=== PATIENT | female | born 2000 | race Caucasian/White ===

== ENCOUNTER 2019-08-27 10:02 | Emergency (ER) | payer OTHER ==
[~2019-08-27] VITALS: Ht 170.2 cm; Wt 74.0 kg
[~2019-08-27 10:02] MED LIST changes: -IOHEXOL 350 MG/ML 100 ML VIAL. IV ONE
--- NOTE | 2019-08-27 10:27 | PHYS DOC ---
Past Medical History Smoking Status: Never Smoker Adult General Chief Complaint Chief Complaint: ABDOMINAL PAIN HPI HPI Patient is a 19 year old female who was sent here from her family medical provider due to abnormal CT scan of her abdomen today. Patient had J-TUBE AND G-TUBE PLACED BY Dr. Mohr on 08/22/19 She has been using her J-TUBE but not able to use the G-TUBE due to pain with water injection and not able to place aspirate any gastric content from the G-TUBE. Patient has have generalized abdominal pain since the procedure. She went to see her PA today who ordered CT A of her abdomen which shown G-TUBE is external to the stomach with some small amount of free air in the intraperitoneum area. Patient denied any fever, no nausea or vomiting. Review of Systems Review of Systems Constitutional: Denies fever or chills [] Eyes: Denies change in visual acuity, redness, or eye pain [] HENT: Denies nasal congestion or sore throat [] Respiratory: Denies cough or shortness of breath [] Cardiovascular: No additional information not addressed in HPI [] GI: Positive for abdominal pain, No nausea, vomiting, bloody stools or diarrhea [] : Denies dysuria or hematuria [] Musculoskeletal: Denies back pain or joint pain [] Integument: Denies rash or skin lesions [] Neurologic: Denies headache, focal weakness or sensory changes [] Endocrine: Denies polyuria or polydipsia [] All other systems were reviewed and found to be within normal limits, except as documented in this note. Current Medications Current Medications Current Medications Medications (Trade) Dose Ordered Sig/Kel Start Time Stop Time Status Last Admin Dose Admin Fentanyl Citrate (Fentanyl 2ml Vial) 50 mcg 1X ONCE 08/27/19 12:30 08/27/19 12:31 DC 08/27/19 12:51 100 MCG Info (CONTRAST GIVEN -- Rx MONITORING) 1 each PRN DAILY PRN 08/27/19 12:30 08/29/19 12:29 Iohexol (Omnipaque 240 Mg/ml) 50 ml STK-MED ONCE 08/27/19 12:45 08/27/19 12:45 DC Morphine Sulfate (Morphine Sulfate) 4 mg 1X ONCE 08/27/19 11:45 08/27/19 11:46 DC 08/27/19 11:49 4 MG Ondansetron HCl (Zofran) 4 mg 1X ONCE 08/27/19 11:45 08/27/19 11:46 DC 08/27/19 11:49 4 MG Allergies Allergies Allergies Coded Allergies Type Severity Reaction Last Updated Verified Penicillins Allergy Intermediate Unknown 08/20/19 Yes Sulfa (Sulfonamide Antibiotics) Allergy Intermediate Unknown 08/20/19 Yes Physical Exam Physical Exam Constitutional: Well developed, well nourished, no acute distress, non-toxic appearance. [] HENT: Normocephalic, atraumatic, bilateral external ears normal, oropharynx moist, no oral exudates, nose normal. [] Eyes: PERRLA, EOMI, conjunctiva normal, no discharge. [] Neck: Normal range of motion, no tenderness, supple, no stridor. [] Cardiovascular:Heart rate regular rhythm, no murmur [] Lungs & Thorax: Bilateral breath sounds clear to auscultation [] Abdomen: Bowel sounds normal, soft, there tenderness to palpation around the G- TUBE AREA. G-tube and J-tube are in place, no masses, no pulsatile masses. [] Skin: Warm, dry, no erythema, no rash. [] Back: No tenderness, no CVA tenderness. [] Extremities: No tenderness, no cyanosis, no clubbing, ROM intact, no edema. [] Neurologic: Alert and oriented X 3, normal motor function, normal sensory function, no focal deficits noted. [] Psychologic: Affect normal, judgement normal, mood normal. [] Current Patient Data Vital Signs Vital Signs Date Time Temp Pulse Resp B/P (MAP) Pulse Ox O2 Delivery O2 Flow Rate FiO2 08/27/19 12:51 14 97 Room Air 08/27/19 10:10 97.9 120 111/54 (73) 97.9 Lab Values Laboratory Tests Test 08/27/19 10:07 08/27/19 11:00 Urine Collection Type Unknown Urine Color Rashmi Urine Clarity Clear Urine pH 7.0 (<5.0-8.0) Urine Specific [place] >=1.030 (1.000-1.030) Urine Protein 30 mg/dL (NEG-TRACE) Urine Glucose (UA) Negative mg/dL (NEG) Urine Ketones (Stick) Negative mg/dL (NEG) Urine Blood Moderate (NEG) Urine Nitrite Negative (NEG) Urine Bilirubin Negative (NEG) Urine Urobilinogen Dipstick >=8.0 mg/dL (0.2 mg/dL) Urine Leukocyte Esterase Negative (NEG) Urine RBC 6-10 /HPF (0-2) Urine WBC 0 /HPF (0-4) Urine Squamous Epithelial Cells Few /LPF Urine Bacteria 0 /HPF (0-FEW) White Blood Count 8.3 x10^3/uL (4.0-11.0) Red Blood Count 3.13 x10^6/uL (3.50-5.40) L Hemoglobin 10.2 g/dL (12.0-15.5) L Hematocrit 29.8 % (36.0-47.0) L Mean Corpuscular Volume 95 fL (79-100) Mean Corpuscular Hemoglobin 33 pg (25-35) Mean Corpuscular Hemoglobin Concent 34 g/dL (31-37) Red Cell Distribution Width 13.0 % (11.5-14.5) Platelet Count 158 x10^3/uL (140-400) Neutrophils (%) (Auto) 75 % (31-73) H Lymphocytes (%) (Auto) 12 % (24-48) L Monocytes (%) (Auto) 11 % (0-9) H Eosinophils (%) (Auto) 1 % (0-3) Basophils (%) (Auto) 0 % (0-3) Neutrophils # (Auto) 6.3 x10^3/uL (1.8-7.7) Lymphocytes # (Auto) 1.0 x10^3/uL (1.0-4.8) Monocytes # (Auto) 0.9 x10^3/uL (0.0-1.1) Eosinophils # (Auto) 0.1 x10^3/uL (0.0-0.7) Basophils # (Auto) 0.0 x10^3/uL (0.0-0.2) Sodium Level 140 mmol/L (136-145) Potassium Level 3.6 mmol/L (3.5-5.1) Chloride Level 104 mmol/L (98-107) Carbon Dioxide Level 26 mmol/L (21-32) Anion Gap 10 (6-14) Blood Urea Nitrogen 7 mg/dL (7-20) Creatinine 0.5 mg/dL (0.6-1.0) L Estimated GFR (Cockcroft-Gault) 155.7 BUN/Creatinine Ratio 14 (6-20) Glucose Level 92 mg/dL (70-99) Lactic Acid Level 0.7 mmol/L (0.4-2.0) Calcium Level 8.6 mg/dL (8.5-10.1) Total Bilirubin 0.5 mg/dL (0.2-1.0) Aspartate Amino Transferase (AST) 12 U/L (15-37) L Alanine Aminotransferase (ALT) 20 U/L (14-59) Alkaline Phosphatase 83 U/L (46-116) Total Protein 6.3 g/dL (6.4-8.2) L Albumin 2.7 g/dL (3.4-5.0) L Albumin/Globulin Ratio 0.8 (1.0-1.7) L Laboratory Tests 08/27/19 11:00 Laboratory Tests 08/27/19 11:00 EKG EKG [] Radiology/Procedures Radiology/Procedures [][facility] [address] [place], [place] [id number] IMAGING REPORT Signed PATIENT: SUNITHA SCHULTZ ACCOUNT: [id number] : 2000 LOCATION: CT AGE: 19 SEX: F EXAM STATUS: REG CLI ORD. PHYSICIAN: BRITTANY CURTIS REASON: ABDOMEN PAIN, NAUSEA, VOMITING, WEIGHT LOSS, MESENTERIC ISCHEMIA PROCEDURE: CT ANGIOGRAPHY ABDOMEN CT angiography abdomen with contrast PQRS statement: CT scans at this facility use dose reduction including either automated exposure control, iterative reconstructions, and /or weight based radiation dosing via mA and kV modification when appropriate to reduce radiation dose to as low as reasonably achievable. HISTORY: Abdominal pain, nausea and vomiting, mesenteric ischemia. TECHNIQUE: CT imaging of the abdomen with 3-D MIP and volume reconstructions of the arteries with 90 mL Omnipaque 350 intravenous contrast. FINDINGS: 3 mm lymph node or nodule minor fissure image 42 of doubtful significance given the patient's young age. There is mild upper abdominal pneumoperitoneum subjacent of diaphragms and overlying the stomach and transverse colon. No abdominal free fluid or abdominal fluid collection. There is upper anterior abdominal wall soft tissue edema and skin thickening. There is a percutaneous jejunostomy tube at the mid abdomen tip terminating right of midline surrounded by small bowel loops. There is a separate percutaneous gastrostomy tube the balloon tip of the catheter appears to terminate along the upper anterior wall of the gastric antrum and is external of the stomach, there is hypodense intramural edematous wall thickening of the gastric antrum no bowel obstruction. The distal aorta and abdominal arteries demonstrate no plaquing, irregularity, aneurysm, dissection, thrombus, stenosis or occlusion. Kidneys, adrenals, pancreas, spleen, liver unremarkable. Cholecystectomy. Lung bases and bones are unremarkable. IMPRESSION: 1. Percutaneous gastrostomy demonstrates termination of the balloon tip catheter along the upper anterior wall of the gastric antrum external of the gastric lumen concerning for malpositioning outside of the stomach. There is hypodense edematous intramural wall thickening of the gastric antrum which could be due to recent procedure or from gastritis. The pneumoperitoneum could be due to recent tube exchange or from active gastric leakage. No abdominal free fluid or fluid collection is evident. 2. Advanced jejunostomy tube. 3. Normal CT angiography abdomen. 4. After call report to the ordering PA, the patient was sent to the emergency department and these results were given to Dr. Benjamin by Dr. Osullivan at time of report signing. FOR INTERNAL CODING PURPOSES Critical result: Findings discussed with Chevy CURTIS at 08/27/2019 9:47 AM. RESULT CODE: (C) Electronically signed by: Ion Osullivan MD (08/27/2019 9:53 AM) [id number] DICTATED and SIGNED BY: ION OSULLIVAN MD DATE: 08/27/19 0953 Course & Med Decision Making Course & Med Decision Making Pertinent Labs and Imaging studies reviewed. (See chart for details) Consulted with Dr. Santana, general surgeon, who came to the ER to evaluate patient. He asked if Interventional Radiologist can evaluate the G-TUBE and replace it. Discussed with Dr. Cartwright who agreed to see patient today. Dr. Cartwright replaced the feeding tube. Dr. Santana said patient can be discharged home, resume tube feeding, follow up with him as needed. Dragon Disclaimer Dragon Disclaimer This electronic medical record was generated, in whole or in part, using a voice recognition dictation system. Departure Departure Impression: Primary Impression: Complaint associated with gastric tube Additional Impressions: Feeding tube dysfunction Encounter for feeding tube placement Abdominal pain Condition: IMPROVED Referrals: RENEA FUNG NP (PCP) TORIE SANTANA MD please follow up with Dr. Santana as needed. You can resume your feeding tube usage. Patient Instructions: Abdominal Pain, Gastric Tube Replacement Additional Instructions: Thank you for visiting our Emergency Department. We appreciate you trusting us with your care. If any additional problems come up don't hesitate to return to visit us. Please follow up with your primary care provider so they can plan additional care if needed and know about the problem that you had. If symptoms worsen come back to the Emergency Department. Any concerning symptoms that start such as chest pain, shortness of air, weakness or numbness on one side of the body, running high fevers or any other concerning symptoms return to the ER. Problem Qualifiers LUIS BENJAMIN DO Aug 27, 2019 10:27
[2019-08-27 11:15] LABS: BILIRUBIN,URINE NEGATIVE (NEG); CLARITY,URINE CLEAR; COLOR,URINE AMBER; NITRITE,URINE NEGATIVE (NEG); PROTEIN,URINE 30 mg/dL (NEG-TRACE); UROBILINOGEN,URINE >=8.0 mg/dL (0.2 mg/dL)
[2019-08-27 11:28] LABS: BACTERIA,URINE 0 /HPF (0-FEW); SQUAMOUS EPITHELIAL CELL,UR FEW /LPF; WBC,URINE 0 /HPF (0-4)
[2019-08-27 11:33] LABS: BASO % 0 % (0-3); EOS # 0.1 x10^3/uL (0.0-0.7); EOS % 1 % (0-3); HEMATOCRIT 29.8 % (36.0-47.0); HEMOGLOBIN 10.2 g/dL (12.0-15.5); LYMPH % 12 % (24-48); MEAN CORPUSCULAR HEMOGLOBIN 33 pg (25-35); MEAN CORPUSCULAR HGB CONC 34 g/dL (31-37); MEAN CORPUSCULAR VOLUME 95 fL (79-100); MONO # 0.9 x10^3/uL (0.0-1.1); MONO % 11 % (0-9); NEUT # 6.3 x10^3/uL (1.8-7.7); NEUT % 75 % (31-73); PLATELET COUNT 158 x10^3/uL (140-400); RED BLOOD COUNT 3.13 x10^6/uL (3.50-5.40); WHITE BLOOD COUNT 8.3 x10^3/uL (4.0-11.0)
[2019-08-27 11:34] LABS: CALCIUM 8.6 mg/dL (8.5-10.1); CREATININE 0.5 mg/dL (0.6-1.0); GFR 155.7; POTASSIUM 3.6 mmol/L (3.5-5.1)
[2019-08-27] MEDS ORDERED: MORPHINE SULFATE 4 MG/ML VIAL. IV ONE (11:45)
[2019-08-27] MEDS ORDERED: ONDANSETRON PF 4 MG/2 ML VIAL. IVP ONE (11:45)
[2019-08-27 11:47] LABS: ALBUMIN 2.7 g/dL (3.4-5.0); ALBUMIN/GLOBULIN RATIO 0.8 (1.0-1.7); TOTAL BILIRUBIN 0.5 mg/dL (0.2-1.0); TOTAL PROTEIN 6.3 g/dL (6.4-8.2)
[2019-08-27] MEDS ORDERED: fentaNYL PF VIAL 100 MCG/2 ML VIAL ONE (12:06)
[2019-08-27] MEDS ORDERED: IOHEXOL 240 MG/ML 50ML VIAL. ONE ×2 (12:08→12:45)
[2019-08-27] MEDS ORDERED: CONTRAST GIVEN. MC PRN (12:30)
[2019-08-27] MEDS ORDERED: fentaNYL PF VIAL 100 MCG/2 ML VIAL IVP ONE (12:30)
[2019-08-27] MEDS ORDERED: IOHEXOL 240 MG/ML 50ML VIAL. PO ONE (12:30)
[2019-08-27 13:32] VITALS: BP 98/54
--- NOTE | 2019-08-27 13:48 | PDOC2 ---
CONSULT Date of Consult Date of Consult DATE: 08/27/19 TIME: 13:44 Reason for Consult Reason for Consult: drainage from G -tube Referring Physician Referring Physician: Dr. Miramontes Identification/Chief Complaint Chief Complaint gtube pain and drainage Source Source: Chart review, Patient History of Present Illness Reason for Visit: 19 yo F s/p recent J-tube placement (working well for tube feeds) and conversion of GJ tube to G-tube. Pt with c/o pain at G-tube site and drainage around, with no drainage through tube. Past Medical History GI: Other (severe malnutrition and rumination sydrome.) Past Surgical History Past Surgical History: Other (J tube and Gtube placement ) Family History Family History: No Significant Social History No ALCOHOL: none Current Problem List Problem List Problems Medical Problems: (1) Abdominal pain Status: Acute (2) Complaint associated with gastric tube Status: Acute (3) Encounter for feeding tube placement Status: Acute (4) Feeding tube dysfunction Status: Acute Current Medications Current Medications Current Medications Morphine Sulfate (Morphine Sulfate) 4 mg 1X ONCE IV Last administered on 08/27/19at 11:49; Start 08/27/19 at 11:45; Stop 08/27/19 at 11:46; Status DC Ondansetron HCl (Zofran) 4 mg 1X ONCE IVP Last administered on 08/27/19at 11:49; Start 08/27/19 at 11:45; Stop 08/27/19 at 11:46; Status DC Fentanyl Citrate (Fentanyl 2ml Vial) 100 mcg STK-MED ONCE .ROUTE ; Start 08/27/19 at 12:06; Stop 08/27/19 at 12:06; Status DC Iohexol (Omnipaque 240 Mg/ml) 50 ml STK-MED ONCE .ROUTE ; Start 08/27/19 at 12:08; Stop 08/27/19 at 12:08; Status DC Fentanyl Citrate (Fentanyl 2ml Vial) 50 mcg 1X ONCE IVP Last administered on 08/27/19at 12:51; Start 08/27/19 at 12:30; Stop 08/27/19 at 12:31; Status DC Iohexol (Omnipaque 240 Mg/ml) 50 ml 1X ONCE PO Last administered on 08/27/19at 12:50; Start 08/27/19 at 12:30; Stop 08/27/19 at 12:31; Status DC Info (CONTRAST GIVEN -- Rx MONITORING) 1 each PRN DAILY PRN MC SEE COMMENTS; Start 08/27/19 at 12:30; Stop 08/29/19 at 12:29 Iohexol (Omnipaque 240 Mg/ml) 50 ml STK-MED ONCE .ROUTE ; Start 08/27/19 at 12:45; Stop 08/27/19 at 12:45; Status DC Active Scripts Active Hydrocodone-Apap 7.5-325/15 Soln (Hydrocodone Bit/Acetaminophen) 15 Ml Solution 15 Ml JT PRN Q6HRS PRN Reported Reglan (Metoclopramide Hcl) 10 Mg Tablet 10 Mg PO QIDACHS Zelnorm (Tegaserod Hydrogen Maleate) 6 Mg Tablet 6 Mg GT BID Amitriptyline Hcl 75 Mg Tablet 75 Mg PO QHS Dicyclomine Hcl 20 Mg Tablet 20 Mg GT PRN QID PRN Stool Softener (Docusate Sodium) 50 Mg Capsule 50 Mg PO PRN HS Advair 100-50 Diskus (Fluticasone/Salmeterol) 1 Each Disk.w.dev 2 Inh IH BID Olopatadine HCl 5 Ml Drops 0.1 % OP PRN DAILY PRN Promethazine Hcl 12.5 Mg Tablet 25 Mg GT Q6H PRN Trazodone Hcl 50 Mg Tablet 50 Mg GT HS Maxalt (Rizatriptan Benzoate) 10 Mg Tablet 10 Mg GT PRN DAILY PRN Valproic Acid (Valproate Sodium) 250 Mg/5 Ml Solution 15 Ml PO BID Coq-10 (Ubidecarenone) 100 Mg Capsule 200 Mg GT DAILY Buspirone Hcl 5 Mg Tablet 5 Mg GT DAILY Vitamin D3 (Cholecalciferol (Vitamin D3)) 4,000 Unit Capsule 2,000 Unit PO HS Xyzal (Levocetirizine Dihydrochloride) 5 Mg Tablet 5 Mg GT HS Proair Hfa (Albuterol Sulfate) 8.5 Gm Hfa.aer.ad 2 Puff IH PRN Q4-6HRS PRN 21 Days Ipratropium [place] 30 Ml [place] 1 [place] NS DAILY Duoneb 0.5-3(2.5) Mg/3 Ml (Albuterol/Ipratropium) 3 Ml Ampul.neb 3 Ml NEB PRN QID PRN Protonix (Pantoprazole Sodium) 20 Mg Tablet. 40 Mg GT HS Montelukast Sodium Tablet (Montelukast Sodium) 10 Mg Tablet 10 Mg GT DAILY PRN Magnesium Oxide 250 Mg Tablet 1 Tab PO DAILY 30 Days Multi Vitamin Daily (Multivitamin) 1 Each Tablet 1 Each GT DAILY Metoprolol Tartrate 50 Mg Tablet 50 Mg GT BID Allergies Allergies: Coded Allergies: Penicillins (Verified Allergy, Intermediate, Unknown, 08/20/19) Sulfa (Sulfonamide Antibiotics) (Verified Allergy, Intermediate, Unknown, 08/20/19) ROS Gastrointestinal: Yes Nausea, Yes Abdominal Pain Physical Exam General: Alert, Oriented X3, Cooperative, No acute distress HEENT: Atraumatic Abdomen: Soft, Other (TTP around G-tube with bumper eroding skin, J-tube in place and functional) Psych/Mental Status: Mental status NL, Mood NL Vitals VITALS Vital Signs Date Time Temp Pulse Resp B/P (MAP) Pulse Ox O2 Delivery O2 Flow Rate FiO2 08/27/19 13:02 98.3 102 16 101/55 (70) 97 Room Air 98.3 Labs Labs Laboratory Tests Test 08/27/19 10:07 08/27/19 11:00 Urine Collection Type Unknown Urine Color Rashmi Urine Clarity Clear Urine pH 7.0 (<5.0-8.0) Urine Specific [place] >=1.030 (1.000-1.030) Urine Protein 30 mg/dL (NEG-TRACE) Urine Glucose (UA) Negative mg/dL (NEG) Urine Ketones (Stick) Negative mg/dL (NEG) Urine Blood Moderate (NEG) Urine Nitrite Negative (NEG) Urine Bilirubin Negative (NEG) Urine Urobilinogen Dipstick >=8.0 mg/dL (0.2 mg/dL) Urine Leukocyte Esterase Negative (NEG) Urine RBC 6-10 /HPF (0-2) Urine WBC 0 /HPF (0-4) Urine Squamous Epithelial Cells Few /LPF Urine Bacteria 0 /HPF (0-FEW) White Blood Count 8.3 x10^3/uL (4.0-11.0) Red Blood Count 3.13 x10^6/uL (3.50-5.40) Hemoglobin 10.2 g/dL (12.0-15.5) Hematocrit 29.8 % (36.0-47.0) Mean Corpuscular Volume 95 fL (79-100) Mean Corpuscular Hemoglobin 33 pg (25-35) Mean Corpuscular Hemoglobin Concent 34 g/dL (31-37) Red Cell Distribution Width 13.0 % (11.5-14.5) Platelet Count 158 x10^3/uL (140-400) Neutrophils (%) (Auto) 75 % (31-73) Lymphocytes (%) (Auto) 12 % (24-48) Monocytes (%) (Auto) 11 % (0-9) Eosinophils (%) (Auto) 1 % (0-3) Basophils (%) (Auto) 0 % (0-3) Neutrophils # (Auto) 6.3 x10^3/uL (1.8-7.7) Lymphocytes # (Auto) 1.0 x10^3/uL (1.0-4.8) Monocytes # (Auto) 0.9 x10^3/uL (0.0-1.1) Eosinophils # (Auto) 0.1 x10^3/uL (0.0-0.7) Basophils # (Auto) 0.0 x10^3/uL (0.0-0.2) Sodium Level 140 mmol/L (136-145) Potassium Level 3.6 mmol/L (3.5-5.1) Chloride Level 104 mmol/L (98-107) Carbon Dioxide Level 26 mmol/L (21-32) Anion Gap 10 (6-14) Blood Urea Nitrogen 7 mg/dL (7-20) Creatinine 0.5 mg/dL (0.6-1.0) Estimated GFR (Cockcroft-Gault) 155.7 BUN/Creatinine Ratio 14 (6-20) Glucose Level 92 mg/dL (70-99) Lactic Acid Level 0.7 mmol/L (0.4-2.0) Calcium Level 8.6 mg/dL (8.5-10.1) Total Bilirubin 0.5 mg/dL (0.2-1.0) Aspartate Amino Transf (AST/SGOT) 12 U/L (15-37) Alanine Aminotransferase (ALT/SGPT) 20 U/L (14-59) Alkaline Phosphatase 83 U/L (46-116) Total Protein 6.3 g/dL (6.4-8.2) Albumin 2.7 g/dL (3.4-5.0) Albumin/Globulin Ratio 0.8 (1.0-1.7) Laboratory Tests Test 08/27/19 10:07 08/27/19 11:00 Urine Collection Type Unknown Urine Color Rashmi Urine Clarity Clear Urine pH 7.0 (<5.0-8.0) Urine Specific [place] >=1.030 (1.000-1.030) Urine Protein 30 mg/dL (NEG-TRACE) Urine Glucose (UA) Negative mg/dL (NEG) Urine Ketones (Stick) Negative mg/dL (NEG) Urine Blood Moderate (NEG) Urine Nitrite Negative (NEG) Urine Bilirubin Negative (NEG) Urine Urobilinogen Dipstick >=8.0 mg/dL (0.2 mg/dL) Urine Leukocyte Esterase Negative (NEG) Urine RBC 6-10 /HPF (0-2) Urine WBC 0 /HPF (0-4) Urine Squamous Epithelial Cells Few /LPF Urine Bacteria 0 /HPF (0-FEW) White Blood Count 8.3 x10^3/uL (4.0-11.0) Red Blood Count 3.13 x10^6/uL (3.50-5.40) Hemoglobin 10.2 g/dL (12.0-15.5) Hematocrit 29.8 % (36.0-47.0) Mean Corpuscular Volume 95 fL (79-100) Mean Corpuscular Hemoglobin 33 pg (25-35) Mean Corpuscular Hemoglobin Concent 34 g/dL (31-37) Red Cell Distribution Width 13.0 % (11.5-14.5) Platelet Count 158 x10^3/uL (140-400) Neutrophils (%) (Auto) 75 % (31-73) Lymphocytes (%) (Auto) 12 % (24-48) Monocytes (%) (Auto) 11 % (0-9) Eosinophils (%) (Auto) 1 % (0-3) Basophils (%) (Auto) 0 % (0-3) Neutrophils # (Auto) 6.3 x10^3/uL (1.8-7.7) Lymphocytes # (Auto) 1.0 x10^3/uL (1.0-4.8) Monocytes # (Auto) 0.9 x10^3/uL (0.0-1.1) Eosinophils # (Auto) 0.1 x10^3/uL (0.0-0.7) Basophils # (Auto) 0.0 x10^3/uL (0.0-0.2) Sodium Level 140 mmol/L (136-145) Potassium Level 3.6 mmol/L (3.5-5.1) Chloride Level 104 mmol/L (98-107) Carbon Dioxide Level 26 mmol/L (21-32) Anion Gap 10 (6-14) Blood Urea Nitrogen 7 mg/dL (7-20) Creatinine 0.5 mg/dL (0.6-1.0) Estimated GFR (Cockcroft-Gault) 155.7 BUN/Creatinine Ratio 14 (6-20) Glucose Level 92 mg/dL (70-99) Lactic Acid Level 0.7 mmol/L (0.4-2.0) Calcium Level 8.6 mg/dL (8.5-10.1) Total Bilirubin 0.5 mg/dL (0.2-1.0) Aspartate Amino Transf (AST/SGOT) 12 U/L (15-37) Alanine Aminotransferase (ALT/SGPT) 20 U/L (14-59) Alkaline Phosphatase 83 U/L (46-116) Total Protein 6.3 g/dL (6.4-8.2) Albumin 2.7 g/dL (3.4-5.0) Albumin/Globulin Ratio 0.8 (1.0-1.7) Images Images CT with G-tube out of stomach, IR successfully replaced G-tube. Assessment/Plan Assessment/Plan Dislodged G-tube successfully replaced. OK to d/c home and F/u PRN resume tube feeds via J-tube Thanks for consult! TORIE MILLER MD Aug 27, 2019 13:48
--- NOTE | 2019-08-28 10:23 | RAD ---
08/28/2019 8:17 AM Procedure: Replacement of percutaneous gastrostomy jejunostomy tube through pre-existing tract Clinical Indication: Possible Malpositioned Gtube. Discussion: The procedure was explained in its entirety to the patient or the patients designated sales representative public [employer] by a member of the treatment team, including a discussion of the risks, benefits and commonly accepted alternatives to the procedure, as well as the expected consequences of no therapy whatsoever. Discussion of the risks included, but was not limited to, those that are most frequent and those that are rare but possibly severe or life-threatening, as well as the possibility of unforeseen complications. All elements of maximal sterile barrier technique including the use of a cap, mask, sterile gown, sterile gloves, large sterile sheet, appropriate hand hygiene, and 2% chlorhexidine for cutaneous antisepsis (or acceptable alternative antiseptic per current guidelines) were followed for this procedure. Fluoroscopic evaluation demonstrates the catheter be centered over the abdominal midline. Contrast was administered through the catheter filling a space, occupied by the pre-existing gastrostomy tube balloon. This appears to be anterior and external to the stomach. The balloon was deflated. The cavity made by the balloon was filled with contrast though no contrast extended into the stomach. Gentle probing with a wire was performed, with a wire ultimately entering the gastric lumen. The catheter was advanced into the gastric lumen and contrast administered confirming intragastric location. Following dilatation a 24 [place] peel-away sheath was advanced into the stomach through which a new 20 [place] gastrostomy tube was placed. Its position was confirmed with contrast. The patient tolerated the procedure well without immediate complication. Total fluoroscopy time 8.8 minutes Dose area product: 62 Gycm2 Impression: Fluoroscopically guided placement of percutaneous gastrostomy tube through pre-existing tract
[2019-08-29] MEDS ORDERED: BUSP10TA PO (22:54)
[2019-08-29] MEDS ORDERED: FLUT12HF3 IH (22:54)
== END 2019-08-27 13:40 | disposition home or self-care (01) ==
LOC: ER 10:02
DX: K94.23 Gastrostomy malfunction (principal); Z88.0 Allergy status to penicillin; Z88.2 Allergy status to sulfonamides; Y83.8 Other surgical procedures as the cause of abnormal reaction of the patient, or of later complication, without mention of misadventure at the time of the procedure; Y92.89 Other specified places as the place of occurrence of the external cause
CPT/HCPCS: 36415; 49450; 80053; 81001; 83605; 85025; 96374; 96375; 99285; B4087; C1769; J2270; J2405; J3010; Q9966

== ENCOUNTER → 2019-08-27 | Outpatient (CLI) | payer OTHER ==
[2019-08-24 15:00] VITALS: BP 100/56
[~2019-08-27] MED LIST: ALBU2.5V8 IH; AMIT75TA PO; BUSP5TAB GT; CHOL40003 PO; DICY20TA3 GT; DOCU50CA9 PO; FLUT1DIS IH; HYDR15SO6 JT; IOHEXOL 350 MG/ML 100 ML VIAL. IV ONE; IPRA30SP NS; IPRA3AMP29 NEB; LEVO5TAB29 GT; MAGN250T9 PO; METO10TA81 PO; METO50TA6 GT; MONT10TA49 GT; MULT-245 GT; OLOP5DRO13 OP; PANT20TA2 GT; PROM12.58 GT; RIZA10TA GT; TEGA6TAB GT; TRAZ-118 GT; UBID100C26 GT; VALP250S3 PO
--- NOTE | 2019-08-27 09:56 | RAD ---
CT angiography abdomen with contrast PQRS statement: CT scans at this facility use dose reduction including either automated exposure control, iterative reconstructions, and /or weight based radiation dosing via mA and kV modification when appropriate to reduce radiation dose to as low as reasonably achievable. HISTORY: Abdominal pain, nausea and vomiting, mesenteric ischemia. TECHNIQUE: CT imaging of the abdomen with 3-D MIP and volume reconstructions of the arteries with 90 mL Omnipaque 350 intravenous contrast. FINDINGS: 3 mm lymph node or nodule minor fissure image 42 of doubtful significance given the patient's young age. There is mild upper abdominal pneumoperitoneum subjacent of diaphragms and overlying the stomach and transverse colon. No abdominal free fluid or abdominal fluid collection. There is upper anterior abdominal wall soft tissue edema and skin thickening. There is a percutaneous jejunostomy tube at the mid abdomen tip terminating right of midline surrounded by small bowel loops. There is a separate percutaneous gastrostomy tube the balloon tip of the catheter appears to terminate along the upper anterior wall of the gastric antrum and is external of the stomach, there is hypodense intramural edematous wall thickening of the gastric antrum no bowel obstruction. The distal aorta and abdominal arteries demonstrate no plaquing, irregularity, aneurysm, dissection, thrombus, stenosis or occlusion. Kidneys, adrenals, pancreas, spleen, liver unremarkable. Cholecystectomy. Lung bases and bones are unremarkable. IMPRESSION: 1. Percutaneous gastrostomy demonstrates termination of the balloon tip catheter along the upper anterior wall of the gastric antrum external of the gastric lumen concerning for malpositioning outside of the stomach. There is hypodense edematous intramural wall thickening of the gastric antrum which could be due to recent procedure or from gastritis. The pneumoperitoneum could be due to recent tube exchange or from active gastric leakage. No abdominal free fluid or fluid collection is evident. 2. Advanced jejunostomy tube. 3. Normal CT angiography abdomen. 4. After call report to the ordering PA, the patient was sent to the emergency department and these results were given to Dr. Miramontes by Dr. Osullivan at time of report signing. FOR INTERNAL CODING PURPOSES Critical result: Findings discussed with Chevy CURTIS at 08/27/2019 9:47 AM. RESULT CODE: (C) Electronically signed by: Michael Osullivan MD (08/27/2019 9:53 AM) [id number]
--- NOTE | 2019-08-27 14:04 | RAD ---
Gastric Emptying Study Indication: Possible gastroparesis. Procedure: Anterior and posterior projection static images are obtained over the stomach following oral administration of 2 mCi of 99 M technetium sulfur colloid in a solid meal (egg and toast). Time points include an immediate baseline, and 1, 2, 3, and 4 hours post ingestion. Findings: There is progressive emptying of the stomach on sequential images. Percentage retention at... One hour is 97 % (normal 34.8-91%). Two hours 85 % (normal 2.7-60%). Three hours 85% (normal 0.5-28%). Four hours 62% (normal 0-10%). Impression: Very severe grade 4 , delayed gastric emptying. Findings would be supportive of the diagnosis of gastroparesis in the appropriate clinical setting. Consensus Recommendations for Gastric Emptying Scintigraphy: A Joint Report of the [place] [employer] and the Society of Nuclear Medicine: J. Nucl. Med. Technol. July 2007 vol. 36 no. 1 44-54 Grading for severity of delayed GE based on the 4-h value: grade 1 (mild): 11?20% retention at 4 h grade 2 (moderate): 21?35% retention at 4 h grade 3 (severe): 36?50% retention at 4 h grade 4 (very severe): >50% retention at 4 h. Electronically signed by: Flo Cartwright MD (08/27/2019 2:01 PM) [id number]
== END ==
LOC: NM 07:46
PROVIDERS: ATTEND Internal Medicine Gastroenterology
DX: K55.059 Acute (reversible) ischemia of intestine, part and extent unspecified (principal); R10.9 Unspecified abdominal pain; R11.2 Nausea with vomiting, unspecified; R63.4 Abnormal weight loss; I77.4 Celiac artery compression syndrome; R60.9 Edema, unspecified
CPT/HCPCS: 74175; 78264; A9541

== ENCOUNTER 2019-11-19 12:40 | Emergency (ER) | payer OTHER ==
[~2019-11-19] VITALS: Ht 170.2 cm; Wt 73.0 kg
[~2019-11-19 12:40] MED LIST changes: +BUSP10TA PO; +CEPH-264 PO; +FLUT12HF3 IH; +POLY17PO29 PO; +RING10003 IV; +[UNRECOGNIZED DRUG - CODE] IV
[2019-11-19] MEDS ORDERED: ONDANSETRON PF 4 MG/2 ML VIAL. IVP ONE (13:15)
[2019-11-19] MEDS ORDERED: MORPHINE SULFATE 4 MG/ML VIAL. IV ONE (13:15)
[2019-11-19] MEDS ORDERED: IV NORMAL SALINE 1000ML BAG 1,000 ML IV ONE (13:15)
[2019-11-19 13:28] LABS: BILIRUBIN,URINE NEGATIVE (NEG); CLARITY,URINE CLEAR; COLOR,URINE YELLOW; NITRITE,URINE NEGATIVE (NEG); PROTEIN,URINE NEGATIVE (NEG-TRACE); UROBILINOGEN,URINE 0.2 mg/dL (0.2 mg/dL)
[2019-11-19 13:33] LABS: BACTERIA,URINE FEW /HPF (0-FEW); RBC,URINE 0 /HPF (0-2); SQUAMOUS EPITHELIAL CELL,UR MOD /LPF; WBC,URINE OCC /HPF (0-4)
[2019-11-19 13:56] LABS: BASO % 0 % (0-3); EOS % 1 % (0-3); HEMATOCRIT 33.9 % (36.0-47.0); HEMOGLOBIN 11.7 g/dL (12.0-15.5); LYMPH # 1.3 x10^3/uL (1.0-4.8); LYMPH % 29 % (24-48); MEAN CORPUSCULAR HEMOGLOBIN 33 pg (25-35); MEAN CORPUSCULAR HGB CONC 35 g/dL (31-37); MEAN CORPUSCULAR VOLUME 94 fL (79-100); MONO # 0.2 x10^3/uL (0.0-1.1); MONO % 5 % (0-9); NEUT # 2.9 x10^3/uL (1.8-7.7); NEUT % 64 % (31-73); PLATELET COUNT 148 x10^3/uL (140-400); RED BLOOD COUNT 3.61 x10^6/uL (3.50-5.40); RED CELL DISTRIBUTION WIDTH 13.2 % (11.5-14.5); WHITE BLOOD COUNT 4.5 x10^3/uL (4.0-11.0)
[2019-11-19 14:22] LABS: CALCIUM 8.6 mg/dL (8.5-10.1); CREATININE 0.7 mg/dL (0.6-1.0); GFR 105.6; POTASSIUM 4.2 mmol/L (3.5-5.1)
[2019-11-19 14:28] LABS: ALBUMIN 3.4 g/dL (3.4-5.0); ALBUMIN/GLOBULIN RATIO 1.1 (1.0-1.7); TOTAL BILIRUBIN 0.1 mg/dL (0.2-1.0); TOTAL PROTEIN 6.6 g/dL (6.4-8.2)
[2019-11-19] MEDS ORDERED: CONTRAST GIVEN. MC PRN (14:30)
[2019-11-19] MEDS ORDERED: IOHEXOL 300 MG/ML 100ML VIAL. IV ONE (14:30)
[2019-11-19 14:42] VITALS: BP 103/56
--- NOTE | 2019-11-19 15:02 | RAD ---
CT scan of the abdomen and pelvis with contrast 11/19/2019 CLINICAL HISTORY: G-tube infection. TECHNIQUE: After the intravenous administration of 75 cc of Omnipaque 300, contiguous, 5 mm axial sections were obtained through the abdomen and pelvis. One or more of the following individualized dose reduction techniques were utilized for this study: 1. Automated exposure control. 2. Adjustment of the mA and/or kV according to patient size. 3. Use of iterative reconstruction technique. FINDINGS: Comparison study is dated 08/27/2019. Images through the lung bases demonstrate minimal dependent subsegmental atelectasis bilaterally. The liver, spleen, pancreas, adrenal glands and kidneys are within normal limits. The abdominal aorta tapers normally. Surgical clips are seen within the gallbladder fossa consistent with a cholecystectomy. A gastrostomy tube is seen within the body of the stomach. No abnormal fluid collection is seen surrounding the tube to suggest evidence of an abscess. The free air seen on the previous examination has resolved. No free fluid is noted. Air and stool are seen throughout the colon. A jejunostomy tube is again noted extending across the midline from the left mid abdomen. No abnormal fluid collection is seen to suggest evidence of an abscess. There is no evidence of bowel obstruction. Images through the pelvis to the urinary bladder distended with urine. A moderate amount of stool is seen involving the rectum and sigmoid colon. No adnexal mass is seen. No free fluid is seen. Very mild S-shaped curvature of the thoracolumbar spine is noted. IMPRESSION: No acute abnormality is seen. Electronically signed by: Neeraj Baca MD (11/19/2019 2:59 PM) [id number]
--- NOTE | 2019-11-19 15:41 | PHYS DOC ---
Past Medical History Past Medical History: GERD, Hypertension, Other Additional Past Medical Histor: chronic ABD pain and N/V, GASTROPARESIS Past Surgical History: Cholecystectomy, Tonsillectomy, Other Additional Past Surgical Histo: G-tube x20; J-tube Smoking Status: Never Smoker Alcohol Use: None General Adult EDM: Chief Complaint: GTUBE REPLACEMENT/MALFUNCTION HPI: HPI: Patient is a 19 year old female presenting to the ED with a chief complaint of abdominal pain and nausea. Patient does have a G-tube and a J-tube due to gastroparesis and states that she thinks the G-tube insertion site might be infected. Patient states that she has continuous nausea and usual medications do not work. Patient denies fever, chills, chest pain, shortness of breath. Review of Systems: Review of Systems: Constitutional: Denies fever or chills. [] Eyes: Denies change in visual acuity. [] HENT: Denies nasal congestion or sore throat. [] Respiratory: Denies cough or shortness of breath. [] Cardiovascular: Denies chest pain or edema. [] GI: Complains of abdominal pain and nausea [] : Denies dysuria. [] Neurologic: Denies headache, focal weakness or sensory changes. [] Heart Score: Risk Factors: Risk Factors: DM, Current or recent (<one month) smoker, HTN, HLP, family history of CAD, obesity. Risk Scores: Score 0 - 3: 2.5% MACE over next 6 weeks - Discharge Home Score 4 - 6: 20.3% MACE over next 6 weeks - Admit for Clinical Observation Score 7 - 10: 72.7% MACE over next 6 weeks - Early Invasive Strategies Current Medications: Current Medications Medications (Trade) Dose Ordered Sig/[facility] Start Time Stop Time Status Last Admin Dose Admin Info (CONTRAST GIVEN -- Rx MONITORING) 1 each PRN DAILY PRN 11/19/19 14:30 11/21/19 14:29 Iohexol (Omnipaque 300 Mg/ml) 75 ml 1X ONCE 11/19/19 14:30 11/19/19 14:31 DC 11/19/19 14:36 75 ML Morphine Sulfate (Morphine Sulfate) 4 mg 1X ONCE 11/19/19 13:15 11/19/19 13:16 DC 11/19/19 13:47 4 MG Ondansetron HCl (Zofran) 4 mg 1X ONCE 11/19/19 13:15 11/19/19 13:16 DC 11/19/19 13:47 4 MG Sodium Chloride 1,000 ml @ 1,000 mls/hr 1X ONCE 11/19/19 13:15 11/19/19 14:14 DC 11/19/19 13:46 1,000 MLS/HR Allergies: Allergies: Allergies Coded Allergies Type Severity Reaction Last Updated Verified Penicillins Allergy Intermediate LIGHT RASH CHILD 08/30/19 Yes Sulfa (Sulfonamide Antibiotics) Allergy Intermediate 08/29/19 Yes Physical Exam: PE: Constitutional: Well developed, well nourished, no acute distress, non-toxic appearance. [] HENT: Normocephalic, atraumatic Eyes: EOMI Neck: Normal range of motion, Supple Cardiovascular:Heart rate regular rhythm Lungs & Thorax: Bilateral breath sounds clear to auscultation [] Abdomen: Bowel sounds normal, soft, no tenderness. G-tube and J-tube present Extremities: No tenderness, ROM intact Neurologic: Alert and oriented X 3 Current Patient Data: Labs: Laboratory Tests Test 11/19/19 13:15 11/19/19 13:24 11/19/19 13:43 Urine Collection Type Void Urine Color Yellow Urine Clarity Clear Urine pH 8.0 (<5.0-8.0) Urine Specific [place] 1.010 (1.000-1.030) Urine Protein Negative mg/dL (NEG-TRACE) Urine Glucose (UA) Negative mg/dL (NEG) Urine Ketones (Stick) Negative mg/dL (NEG) Urine Blood Negative (NEG) Urine Nitrite Negative (NEG) Urine Bilirubin Negative (NEG) Urine Urobilinogen Dipstick 0.2 mg/dL (0.2 mg/dL) Urine Leukocyte Esterase Negative (NEG) Urine RBC 0 /HPF (0-2) Urine WBC Occ /HPF (0-4) Urine Squamous Epithelial Cells Mod /LPF Urine Bacteria Few /HPF (0-FEW) POC Urine HCG, Qualitative Hcg negative (Negative) White Blood Count 4.5 x10^3/uL (4.0-11.0) Red Blood Count 3.61 x10^6/uL (3.50-5.40) Hemoglobin 11.7 g/dL (12.0-15.5) L Hematocrit 33.9 % (36.0-47.0) L Mean Corpuscular Volume 94 fL (79-100) Mean Corpuscular Hemoglobin 33 pg (25-35) Mean Corpuscular Hemoglobin Concent 35 g/dL (31-37) Red Cell Distribution Width 13.2 % (11.5-14.5) Platelet Count 148 x10^3/uL (140-400) Neutrophils (%) (Auto) 64 % (31-73) Lymphocytes (%) (Auto) 29 % (24-48) Monocytes (%) (Auto) 5 % (0-9) Eosinophils (%) (Auto) 1 % (0-3) Basophils (%) (Auto) 0 % (0-3) Neutrophils # (Auto) 2.9 x10^3/uL (1.8-7.7) Lymphocytes # (Auto) 1.3 x10^3/uL (1.0-4.8) Monocytes # (Auto) 0.2 x10^3/uL (0.0-1.1) Eosinophils # (Auto) 0.0 x10^3/uL (0.0-0.7) Basophils # (Auto) 0.0 x10^3/uL (0.0-0.2) Sodium Level 140 mmol/L (136-145) Potassium Level 4.2 mmol/L (3.5-5.1) Chloride Level 104 mmol/L (98-107) Carbon Dioxide Level 28 mmol/L (21-32) Anion Gap 8 (6-14) Blood Urea Nitrogen 11 mg/dL (7-20) Creatinine 0.7 mg/dL (0.6-1.0) Estimated GFR (Cockcroft-Gault) 105.6 BUN/Creatinine Ratio 16 (6-20) Glucose Level 91 mg/dL (70-99) Lactic Acid Level 1.5 mmol/L (0.4-2.0) Calcium Level 8.6 mg/dL (8.5-10.1) Total Bilirubin 0.1 mg/dL (0.2-1.0) L Aspartate Amino Transferase (AST) 15 U/L (15-37) Alanine Aminotransferase (ALT) 26 U/L (14-59) Alkaline Phosphatase 94 U/L (46-116) Total Protein 6.6 g/dL (6.4-8.2) Albumin 3.4 g/dL (3.4-5.0) Albumin/Globulin Ratio 1.1 (1.0-1.7) Lipase 61 U/L (73-393) L Laboratory Tests 11/19/19 13:43 Laboratory Tests 11/19/19 13:43 Vital Signs: Vital Signs Date Time Temp Pulse Resp B/P (MAP) Pulse Ox O2 Delivery O2 Flow Rate FiO2 11/19/19 14:44 Room Air 11/19/19 13:47 16 98 11/19/19 12:50 97.7 90 101/58 (72) 97.7 EKG: EKG: [] Radiology/Procedures: Radiology/Procedures: [] Impression: CT ABD/PELVIS: The abdominal aorta tapers normally. Surgical clips are seen within the gallbladder fossa consistent with a cholecystectomy. A gastrostomy tube is seen within the body of the stomach. No abnormal fluid collection is seen surrounding the tube to suggest evidence of an abscess. The free air seen on the previous examination has resolved. No free fluid is noted. Air and stool are seen throughout the colon. A jejunostomy tube is again noted extending across the midline from the left mid abdomen. No abnormal fluid collection is seen to suggest evidence of an abscess. There is no evidence of bowel obstruction. Course & Med Decision Making: Course & Med Decision Making Pertinent Labs and Imaging studies reviewed. (See chart for details) Ordered labs, CT abdomen pelvis with IV contrast, Zofran, IV fluids. Labs are within normal limits. UA does not show UTI. Urine is negative. CT does not show any signs of abscess. Discussed results and plan of care with patient and patient was comfortable to be discharged home. Discussed results and plan of care with patient. Patient is instructed to follow up with PCP in one to 2 days. Appropriate discharge instructions given to patient to return to the ED or to seek immediate medical evaluation. Patient is instructed to return to the ED if symptoms worsen or if any concerns. Dragon Disclaimer: Dragon Disclaimer: This electronic medical record was generated, in whole or in part, using a voice recognition dictation system. Departure Departure Impression: Primary Impression: Abdominal pain Additional Impression: Nausea Disposition: HOME, SELF-CARE Condition: STABLE Referrals: R[facility]G POLICY SPECIALIST (PCP) Patient Instructions: Abdominal Pain, Nausea, Adult Additional Instructions: Discussed results and plan of care with patient. Patient is instructed to follow up with PCP in one to 2 days. Appropriate discharge instructions given to patient to return to the ED or to seek immediate medical evaluation. Patient is instructed to return to the ED if symptoms worsen or if any concerns. Justicifation of Admission Dx: Justifications for Admission: Justification of Admission Dx: DEBRA Ugalde DO Nov 19, 2019 15:41
== END 2019-11-19 15:50 | disposition home or self-care (01) ==
LOC: ER 12:40
DX: R10.9 Unspecified abdominal pain (principal); R11.0 Nausea; K21.9 Gastro-esophageal reflux disease without esophagitis; G89.29 Other chronic pain; I10 Essential (primary) hypertension; Z90.49 Acquired absence of other specified parts of digestive tract; Z90.89 Acquired absence of other organs; Z98.890 Other specified postprocedural states; Z79.899 Other long term (current) drug therapy
CPT/HCPCS: 36415; 74177; 80053; 81001; 81025; 83605; 83690; 85025; 87040; 87205; 96374; 96375; 99285; J2270; J2405; J7030; Q9967

== ENCOUNTER 2019-11-21 19:53 | Inpatient (IN) | payer OTHER ==
[~2019-11-21] VITALS: Ht 170.2 cm; Wt 76.9 kg
[2019-11-21 20:53] LABS: BASO % 0 % (0-3); EOS % 1 % (0-3); HEMATOCRIT 33.5 % (36.0-47.0); HEMOGLOBIN 11.6 g/dL (12.0-15.5); LYMPH # 1.6 x10^3/uL (1.0-4.8); LYMPH % 35 % (24-48); MEAN CORPUSCULAR HEMOGLOBIN 33 pg (25-35); MEAN CORPUSCULAR HGB CONC 35 g/dL (31-37); MEAN CORPUSCULAR VOLUME 94 fL (79-100); MONO # 0.3 x10^3/uL (0.0-1.1); MONO % 6 % (0-9); NEUT # 2.6 x10^3/uL (1.8-7.7); NEUT % 58 % (31-73); PLATELET COUNT 142 x10^3/uL (140-400); RED BLOOD COUNT 3.56 x10^6/uL (3.50-5.40); RED CELL DISTRIBUTION WIDTH 13.3 % (11.5-14.5); WHITE BLOOD COUNT 4.5 x10^3/uL (4.0-11.0)
[2019-11-21] MEDS ORDERED: PROCHLORPERAZINE 10 MG/2 ML VIAL. IV ONE (21:00)
[2019-11-21] MEDS ORDERED: MORPHINE SULFATE 2 MG/ML VIAL. IV ONE ×2 (21:00→23:45)
[2019-11-21] MEDS ORDERED: FAMOTIDINE 20 MG/2 ML VIAL IVP ONE (21:00)
[2019-11-21] MEDS ORDERED: IV NORMAL SALINE 1000ML BAG 1,000 ML IV ONE (21:00)
[2019-11-21 21:03] LABS: CALCIUM 8.5 mg/dL (8.5-10.1); CREATININE 0.6 mg/dL (0.6-1.0); GFR 126.2
[2019-11-21 21:07] LABS: POTASSIUM 4.2 mmol/L (3.5-5.1)
[2019-11-21 21:08] LABS: ALBUMIN 3.6 g/dL (3.4-5.0); ALBUMIN/GLOBULIN RATIO 1.2 (1.0-1.7); TOTAL BILIRUBIN 0.4 mg/dL (0.2-1.0); TOTAL PROTEIN 6.7 g/dL (6.4-8.2)
--- NOTE | 2019-11-21 21:15 | PHYS DOC ---
Past Medical History Past Medical History: GERD, Hypertension, Other Additional Past Medical Histor: chronic ABD pain and N/V, GASTROPARESIS Past Surgical History: Cholecystectomy, Tonsillectomy, Other Additional Past Surgical Histo: G-tube x20; J-tube Smoking Status: Never Smoker Alcohol Use: None General Adult EDM: Chief Complaint: NAUSEA/VOMITING/DIARRHA HPI: HPI: Patient is a 19 year old female with a past medical history of gastroparesis and history multiple abdominal surgeries with G and J-tube in place presents with a chief complaint of nausea vomiting unable to feed and abdominal pain. Patient states every time she tube feeds she is unable to keep food down. Patient states abdominal pain is in the epigastric region. She states the G and J tubes are functioning normal. Patient states she has not have a Bowel movement for several days. Nausea and vomiting continue despite treatment with zofran, promethazine, and Reglan. Review of Systems: Review of Systems: Constitutional: Denies fever or chills. [] Eyes: Denies change in visual acuity. [] HENT: Denies nasal congestion or sore throat. [] Respiratory: Denies cough or shortness of breath. [] Cardiovascular: Denies chest pain or edema. [] GI: positive abdominal pain positive vomiting positive diarrhea : Denies dysuria. [] Musculoskeletal: Denies back pain or joint pain. [] Integument: Denies rash. [] Neurologic: Denies headache, focal weakness or sensory changes. [] Endocrine: Denies polyuria or polydipsia. [] Lymphatic: Denies swollen glands. [] Psychiatric: Denies depression or anxiety. [] Heart Score: Risk Factors: Risk Factors: DM, Current or recent (<one month) smoker, HTN, HLP, family history of CAD, obesity. Risk Scores: Score 0 - 3: 2.5% MACE over next 6 weeks - Discharge Home Score 4 - 6: 20.3% MACE over next 6 weeks - Admit for Clinical Observation Score 7 - 10: 72.7% MACE over next 6 weeks - Early Invasive Strategies Current Medications: Current Medications Medications (Trade) Dose Ordered Sig/[facility] Start Time Stop Time Status Last Admin Dose Admin Famotidine (Pepcid Vial) 20 mg 1X ONCE 11/21/19 21:00 11/21/19 21:01 DC 11/21/19 21:08 20 MG Morphine Sulfate (Morphine Sulfate) 2 mg 1X ONCE 11/21/19 21:00 11/21/19 21:01 DC 11/21/19 21:09 2 MG Prochlorperazine Edisylate (Compazine) 10 mg 1X ONCE 11/21/19 21:00 11/21/19 21:01 DC 11/21/19 21:08 10 MG Sodium Chloride 1,000 ml @ 1,000 mls/hr 1X ONCE 11/21/19 21:00 11/21/19 21:59 11/21/19 21:06 1,000 MLS/HR Allergies: Allergies: Allergies Coded Allergies Type Severity Reaction Last Updated Verified Penicillins Allergy Intermediate LIGHT RASH CHILD 08/30/19 Yes Sulfa (Sulfonamide Antibiotics) Allergy Intermediate 08/29/19 Yes Physical Exam: PE: Constitutional: Well developed, well nourished, no acute distress, non-toxic appearance. [] HENT: Normocephalic, atraumatic, bilateral external ears normal, oropharynx moist, no oral exudates, nose normal. [] Eyes: PERRLA, EOMI, conjunctiva normal, no discharge. [] Neck: Normal range of motion, no tenderness, supple, no stridor. [] Cardiovascular:Heart rate regular rhythm, no murmur [] Lungs & Thorax: Bilateral breath sounds clear to auscultation [] Abdomen: abdomen soft, tenderness epigastric, no masses, j / g tubes in place.] Skin: Warm, dry, no erythema, no rash. [] Back: No tenderness, no CVA tenderness. [] Extremities: No tenderness, no cyanosis, no clubbing, ROM intact, no edema. [] Neurologic: Alert and oriented X 3, normal motor function, normal sensory function, no focal deficits noted. [] Psychologic: Affect normal, judgement normal, mood normal. [] Current Patient Data: Labs: Laboratory Tests Test 11/21/19 20:41 White Blood Count 4.5 x10^3/uL (4.0-11.0) Red Blood Count 3.56 x10^6/uL (3.50-5.40) Hemoglobin 11.6 g/dL (12.0-15.5) L Hematocrit 33.5 % (36.0-47.0) L Mean Corpuscular Volume 94 fL (79-100) Mean Corpuscular Hemoglobin 33 pg (25-35) Mean Corpuscular Hemoglobin Concent 35 g/dL (31-37) Red Cell Distribution Width 13.3 % (11.5-14.5) Platelet Count 142 x10^3/uL (140-400) Neutrophils (%) (Auto) 58 % (31-73) Lymphocytes (%) (Auto) 35 % (24-48) Monocytes (%) (Auto) 6 % (0-9) Eosinophils (%) (Auto) 1 % (0-3) Basophils (%) (Auto) 0 % (0-3) Neutrophils # (Auto) 2.6 x10^3/uL (1.8-7.7) Lymphocytes # (Auto) 1.6 x10^3/uL (1.0-4.8) Monocytes # (Auto) 0.3 x10^3/uL (0.0-1.1) Eosinophils # (Auto) 0.0 x10^3/uL (0.0-0.7) Basophils # (Auto) 0.0 x10^3/uL (0.0-0.2) Sodium Level 139 mmol/L (136-145) Potassium Level 4.2 mmol/L (3.5-5.1) Chloride Level 100 mmol/L (98-107) Carbon Dioxide Level 29 mmol/L (21-32) Anion Gap 10 (6-14) Blood Urea Nitrogen 11 mg/dL (7-20) Creatinine 0.6 mg/dL (0.6-1.0) Estimated GFR (Cockcroft-Gault) 126.2 BUN/Creatinine Ratio 18 (6-20) Glucose Level 80 mg/dL (70-99) Calcium Level 8.5 mg/dL (8.5-10.1) Total Bilirubin Pending Aspartate Amino Transferase (AST) Pending Alanine Aminotransferase (ALT) Pending Alkaline Phosphatase Pending Total Protein Pending Albumin Pending Albumin/Globulin Ratio Pending Lipase Pending Laboratory Tests 11/21/19 20:41 Laboratory Tests 11/21/19 20:41 Vital Signs: Vital Signs Date Time Temp Pulse Resp B/P (MAP) Pulse Ox O2 Delivery O2 Flow Rate FiO2 11/21/19 20:12 98.5 113 12 115/55 (75) 99 Room Air 98.5 EKG: EKG: [] Radiology/Procedures: Radiology/Procedures: [] Course & Med Decision Making: Course & Med Decision Making Pertinent Labs and Imaging studies reviewed. (See chart for details) [] All results reviewed and discussed with patient. Labs no acute abnormalities x-ray constipation. Treatment included IV fluids Compazine Pepcid. Patient states no relief with any medications. Discussed discharge home hospitalization. Patient that she does not feel that she can go home due to vomiting and not being able to tube feed. Pooja Disclaimer: Pooja Disclaimer: This electronic medical record was generated, in whole or in part, using a voice recognition dictation system. Departure Departure Impression: Primary Impression: Nausea & vomiting Disposition: ADMITTED INPATIENT Admitting Physician: BRICE Referrals: RENEA FUNG PHOTOGRAPH DEVELOPER (PCP) Justicifation of Admission Dx: Justifications for Admission: Justification of Admission Dx: MELISSA Wong I DO Nov 21, 2019 21:15
[2019-11-21 21:58] LABS: BILIRUBIN,URINE NEGATIVE (NEG); CLARITY,URINE CLEAR; COLOR,URINE YELLOW; NITRITE,URINE NEGATIVE (NEG); PH,URINE 7.5 (<5.0-8.0); PROTEIN,URINE NEGATIVE (NEG-TRACE)
[2019-11-21 22:03] LABS: BACTERIA,URINE MANY /HPF (0-FEW); SQUAMOUS EPITHELIAL CELL,UR MANY /LPF
[2019-11-21 22:04] LABS: WBC,URINE OCC /HPF (0-4)
[2019-11-21 22:05] LABS: RBC,URINE 0 /HPF (0-2)
--- NOTE | 2019-11-21 22:21 | RAD ---
AP upright supine abdomen x-rays 2 views HISTORY: Mid abdominal pain for 2 days. FINDINGS: Lung bases unremarkable. No pneumoperitoneum. Post cystectomy clips. Moderate volume of stool within the colon and a prominent volume of stool density of the rectum with a diameter of 9 cm may indicate rectal fecal impaction. No small bowel obstruction evident with no dilated small bowel loops or abnormal air-fluid levels. Mild lumbar scoliosis left abdomen tube likely a percutaneous jejunostomy feeding tube. There is a separate gastrostomy tube as present on the prior CT study from November 19, 2019. IMPRESSION: Constipation with a moderate volume of stool and probable rectal fecal impaction. No small bowel obstruction. Electronically signed by: Michael Osullivan MD (11/21/2019 10:18 PM) [facility]
[2019-11-21 22:49] LABS: U PREG PATIENT NEGATIVE (NEG)
[2019-11-21] MEDS: ONDANSETRON PF 4 MG/2 ML VIAL. IV PRN (23:17)
[2019-11-22] MEDS: MORPHINE SULFATE 2 MG/ML VIAL. IV PRN ×8 (02:21→23:23)
[2019-11-22 03:00] VITALS: BP 113/76
[2019-11-22 07:59] VITALS: BP 109/64
[2019-11-22] MEDS: ONDANSETRON PF 4 MG/2 ML VIAL. IV PRN ×2 (08:07→16:26)
--- NOTE | 2019-11-22 09:55 | PDOC2 ---
GI CONSULT Reason For Consult: abd pain HPI: HPI: 19 y/o female with a long history of many GI issues previously evaluated at [facility], , [facility], [facility], and our office. She tells me her main reason for coming to the [facility] ER is nausea - a chronic issue but worse for a couple weeks w/o precipitating events. Nausea is frequent but not constant. Vomiting after eating a little bit of food PO - sometimes 4-5 hours later or sometimes 10-30 minutes later. Nauseated with J tube feeds as well. Has gained weight. Also describes bloating and early satiety. E-mycin, Zofran, Compazine, and Phenergan unhelpful. Takes pantoprazole QHS because she has some reflux during the night. At one point recently BID PPI was helpful w/ nausea but she stopped because she didn't have enough pills. Tums make everything worse. Asks about Domperidone which she has not tried. Some dizziness and room spinning when standing - a chronic issue since starting Reglan apparently. Last office notes indicate she preferred to continue Reglan despite many discussion concerning risk of tardive dyskinesia - today she tells me she's not sure if Reglan (10mg crushed in tube QID) helps all that much but just not sure. G-tube venting isn't helpful - "not much air comes out." Says pyloroplasty previously discussed w/ Dr. Santana and her mom wants to know if she can have that done while she's here. Additionally c/o constipation. Can "go weeks" without stooling. Last stooled two days ago - "pretty big one." Sometimes has a hard stool. Tries not to strain. Denies use of opioids and NSAIDs. Past treatments include Linzess, Miralax, Senna, Amitiza, MoM, magnesium pills, Trulance, Zelnorm. Recently tried Motegrity - also unhelpful. Nurse says rating abdominal pain 7/10, needing morphine. Pt did not mention abdominal pain to me until I asked - says occurs intermittently, maybe after eating. Located on right side (says upper and lower), is sharp. Resolves with dicyclomine. Pt says G-tube was "leaking." Reviewed office notes: H/o cyclic vomiting syndrome vs rumination syndrome (confirmed at [facility]) w/ chronic n/v, IBS, GERD, pelvic floor dyssynergia (s/p therapy), s/p cholecystectomy. Many GJ tubes - issues ww/ misplacement in the past and re-positioning w/ IR, though most recently conversion of gastrojejunostomy tube to gastrostomy tube a nd placement of jejunostomy tube by dr. Santana in 08/2019. H/o H. pylori treated twice. Last EGD 05/2019 showed misplacement of J-tube coiled in stomach. EGD 07/2018 was completely normal w/ no food and minimal fluid and widely patent pylorus. Biopsies negative for celiac and H. pylori. Colonoscopy 09/26/18 (for abnormal MRE suspicious for mild pancolitis) revealed no evidence of colitis and two 2-4mm adenomatous polyps in ascendign colon. GES normal in 08/2018, then abnormal in 08/2019 (below). MRCP 08/2018 w/ hepatic adenoma, normal sized liver, mild hepatic steatosis, and likely syrinx at T12. PMH: PMH: HTN, asthma, migraines, possible common variable immunodeficiency tonsillectomy FH: Family History: CVA, DM, Hypertension, Other (colon polyps - grandmother) Social History: Smoke: No ALCOHOL: none ROS: GEN: Denies fevers, chills, sweats HEENT: Denies blurred vision, sore throat CV: Denies chest pain RESP: Denies shortness of air, cough GI: Per HPI : Denies hematuria, dysuria ENDO: +weight gain NEURO: Denies confusion, dizziness MSK: Denies weakness, joint pain/swelling SKIN: Denies jaundice, pruritus Vitals: Vitals: Vital Signs Date Time Temp Pulse Resp B/P (MAP) Pulse Ox O2 Delivery O2 Flow Rate FiO2 11/22/19 09:31 Room Air 11/22/19 07:59 98.1 104 18 109/64 (79) 96 98.1 Labs: Labs: Laboratory Tests Test 11/21/19 20:41 11/21/19 21:51 White Blood Count 4.5 x10^3/uL (4.0-11.0) Red Blood Count 3.56 x10^6/uL (3.50-5.40) Hemoglobin 11.6 g/dL (12.0-15.5) Hematocrit 33.5 % (36.0-47.0) Mean Corpuscular Volume 94 fL (79-100) Mean Corpuscular Hemoglobin 33 pg (25-35) Mean Corpuscular Hemoglobin Concent 35 g/dL (31-37) Red Cell Distribution Width 13.3 % (11.5-14.5) Platelet Count 142 x10^3/uL (140-400) Neutrophils (%) (Auto) 58 % (31-73) Lymphocytes (%) (Auto) 35 % (24-48) Monocytes (%) (Auto) 6 % (0-9) Eosinophils (%) (Auto) 1 % (0-3) Basophils (%) (Auto) 0 % (0-3) Neutrophils # (Auto) 2.6 x10^3/uL (1.8-7.7) Lymphocytes # (Auto) 1.6 x10^3/uL (1.0-4.8) Monocytes # (Auto) 0.3 x10^3/uL (0.0-1.1) Eosinophils # (Auto) 0.0 x10^3/uL (0.0-0.7) Basophils # (Auto) 0.0 x10^3/uL (0.0-0.2) Sodium Level 139 mmol/L (136-145) Potassium Level 4.2 mmol/L (3.5-5.1) Chloride Level 100 mmol/L (98-107) Carbon Dioxide Level 29 mmol/L (21-32) Anion Gap 10 (6-14) Blood Urea Nitrogen 11 mg/dL (7-20) Creatinine 0.6 mg/dL (0.6-1.0) Estimated GFR (Cockcroft-Gault) 126.2 BUN/Creatinine Ratio 18 (6-20) Glucose Level 80 mg/dL (70-99) Calcium Level 8.5 mg/dL (8.5-10.1) Total Bilirubin 0.4 mg/dL (0.2-1.0) Aspartate Amino Transf (AST/SGOT) 25 U/L (15-37) Alanine Aminotransferase (ALT/SGPT) 32 U/L (14-59) Alkaline Phosphatase 84 U/L (46-116) Total Protein 6.7 g/dL (6.4-8.2) Albumin 3.6 g/dL (3.4-5.0) Albumin/Globulin Ratio 1.2 (1.0-1.7) Lipase 52 U/L (73-393) Urine Collection Type Void Urine Color Yellow Urine Clarity Clear Urine pH 7.5 (<5.0-8.0) Urine Specific [place] 1.020 (1.000-1.030) Urine Protein Negative mg/dL (NEG-TRACE) Urine Glucose (UA) Negative mg/dL (NEG) Urine Ketones (Stick) Negative mg/dL (NEG) Urine Blood Negative (NEG) Urine Nitrite Negative (NEG) Urine Bilirubin Negative (NEG) Urine Urobilinogen Dipstick 1.0 mg/dL (0.2 mg/dL) Urine Leukocyte Esterase Negative (NEG) Urine RBC 0 /HPF (0-2) Urine WBC Occ /HPF (0-4) Urine Squamous Epithelial Cells Many /LPF Urine Bacteria Many /HPF (0-FEW) Urine Mucus Mod /LPF Urine Test Negative (NEG) Allergies: Coded Allergies: Penicillins (Verified Allergy, Intermediate, LIGHT RASH CHILD, 08/30/19) Sulfa (Sulfonamide Antibiotics) (Verified Allergy, Intermediate, 08/29/19) Medications: Current Medications Medications (Trade) Dose Ordered Sig/Kel Route PRN Reason Start Time Stop Time Status Last Admin Dose Admin Sodium Chloride 1,000 ml @ 1,000 mls/hr 1X ONCE IV 11/21/19 21:00 11/21/19 21:59 DC 11/21/19 21:06 Famotidine (Pepcid Vial) 20 mg 1X ONCE IVP 11/21/19 21:00 11/21/19 21:01 DC 11/21/19 21:08 Morphine Sulfate (Morphine Sulfate) 2 mg 1X ONCE IV 11/21/19 21:00 11/21/19 21:01 DC 11/21/19 21:09 Prochlorperazine Edisylate (Compazine) 10 mg 1X ONCE IV 11/21/19 21:00 11/21/19 21:01 DC 11/21/19 21:08 Ondansetron HCl (Zofran) 4 mg PRN Q8HRS PRN IV NAUSEA/VOMITING 1ST CHOICE 11/21/19 23:00 11/22/19 22:59 11/22/19 08:07 Morphine Sulfate (Morphine Sulfate) 2 mg 1X ONCE IV 11/21/19 23:45 11/21/19 23:46 DC 11/21/19 23:28 Morphine Sulfate (Morphine Sulfate) 2 mg PRN Q2HR PRN IV SEVERE PAIN 7-10 11/22/19 01:45 11/22/19 08:08 Imaging: Imaging: Abdomen X-Ray 11/21/19 IMPRESSION: Constipation with a moderate volume of stool and probable rectal fecal impaction. No small bowel obstruction. CT A/P 11/19/19 IMPRESSION: No acute abnormality is seen. GES 08/27/19 One hour is 97 % (normal 34.8-91%). Two hours 85 % (normal 2.7-60%). Three hours 85% (normal 0.5-28%). Four hours 62% (normal 0-10%). Impression: Very severe grade 4 , delayed gastric emptying. Findings wouldbe supportive of the diagnosis of gastroparesis in the appropriate clinical setting. PE: GEN: NAD, alone in room, resting quietly HEENT: Atraumatic, PERRL LUNGS: CTAB anteriorly HEART: tachycardic ABD: quiet BS, soft, non-tender, G tube bumper loose - tightened and gauze under bumper removed, J tube - no leakage EXTREMITY: No edema SKIN: No rashes, no jaundice NEURO/PSYCH: A & O 3 A/P: A/P: Chronic n/v, abd pain, constipation G tube and J tube in place -- Extensive workup as above. Okay to resume J tube feeds per GI - has a nutrition consult. Defer IVF to Dr. Bynum. Try BID PPI since she says this helped recently - can order IV for now, change to PO as able. Dicyclomine typically helps chronic right-sided pain - ideally would use this and avoid morphine. X-ray results noted - try suppository. Will review all w/ Dr. Doyle. LIA RO Nov 22, 2019 09:55
--- NOTE | 2019-11-22 11:02 | NUR ---
SW following. Discussed with RN, pt from home with family, normally has home health through [facility] [place] (ph: [phone], fax: [phone]). Pt has multiple consults, NPO. SW will continue to follow.
--- NOTE | 2019-11-22 11:04 | HP ---
ADMIT DATE: 11/21/2019 CHIEF COMPLAINT: Nausea, vomiting, diarrhea. HISTORY OF PRESENT ILLNESS: The patient is a pleasant 19-year-old female who has gastroparesis and cyclic vomiting syndrome, states she has been scheduled to get a pyloroplasty, but that has just not been able to happen. She also has a history of a G-tube. I discussed the case with ER physician. We are going to admit the patient and consult GI. PAST MEDICAL HISTORY: G-tube (x 20), J-tube, GERD, hypertension, gastroparesis, cyclic vomiting, cholecystectomy, tonsillectomy. ALLERGIES: SULFA AND PENICILLIN. FAMILY HISTORY: Diabetes. SOCIAL HISTORY: She does not drink, smoke or take drugs. MEDICATIONS: Reviewed, please refer to the MRAD. REVIEW OF SYSTEMS: GENERAL: No history of weight change, weakness or fevers. SKIN: No bruising, hair changes or rashes. EYES: No blurred, double or loss of vision. NOSE AND THROAT: No history of nosebleeds, hoarseness or sore throat. HEART: No history of palpitations, chest pain or shortness of breath on exertion. LUNGS: Denies cough, hemoptysis, wheezing or shortness of breath. GASTROINTESTINAL: Denies changes in appetite, nausea, vomiting, diarrhea or constipation. GENITOURINARY: No history of frequency, urgency, hesitancy or nocturia. NEUROLOGIC: Denies history of numbness, tingling, tremor or weakness. PSYCHIATRIC: No history of panic, anxiety or depression. ENDOCRINE: No history of heat or cold intolerance, polyuria or polydipsia. EXTREMITIES: Denies muscle weakness, joint pain, pain on walking or stiffness. PHYSICAL EXAMINATION: VITALS: Within normal limits and are stable. GENERAL: No apparent distress. Alert and oriented. HEENT: Normal cephalic atraumatic, external auditory canals are patent EYES: Extraocular muscles are intact, pupils are equally round and reactive to light and accommodation MUSCULOSKELETAL: Well developed, well nourished, good range of motion ENDOCRINE: No thyromegaly was palpated LYMPHATICS: No cervical chain or axillary nodes were noted HEMATOPOIETIC: No bruising NECK: Supple, no JVD, no thyromegaly was noted. LUNGS: Clear to auscultation in all lung crain without rhonchi or wheezing. HEART: RRR, S1, S2 present. Peripheral pulses intact, no obvious murmurs were noted. ABDOMEN: Soft, nontender. Positive bowel sounds no organomegaly, normal bowel sounds. EXTREMITIES: Without any cyanosis, clubbing, or edema. Pedal pulses intact, Homans sign is negative. NEUROLOGIC: Normal speech, normal tone. A & O x3, moves all extremities, no obvious focal deficits. PSYCHIATRIC: Normal affect, normal mood. Stable. SKIN: No ulcerations or rashes, good skin turgor, no jaundice. VASCULAR: Good capillary refill, neurovascular bundle appears to be intact. ASSESSMENT AND PLAN: Recurrent cyclic vomiting syndrome and/or component of severe gastroparesis. The patient has been admitted. We consulted GI. We will give her p.r.n. antiemetics, IV fluids, home meds, DVT prophylaxis. Full code. Trend labs. LALITHA WEBB DO DR: RAMON/kimberly JOB#: [id number] / [id number]
[2019-11-22 11:14] VITALS: BP 111/66
[2019-11-22] MEDS ORDERED: BISACODYL 10 MG SUPP.RECT. PR ONE (12:00)
[2019-11-22] MEDS: PANTOPRAZOLE IV PUSH 40 MG VIAL. IVP SCH ×2 (12:11→16:26)
[2019-11-22] MEDS ORDERED: DICYCLOMINE HCL 10 MG CAPSULE PO PRN (13:30)
[2019-11-22] MEDS ORDERED: METHYLNALTREXONE 12 MG/0.6 ML VIAL. SQ ONE (14:00)
[2019-11-22] MEDS: METOCLOPRAMIDE HCL 10 MG/2 ML VIAL. IVP PRN ×2 (15:32→19:53)
[2019-11-22 15:57] VITALS: BP 117/78
--- NOTE | 2019-11-22 17:19 | PDOC2 ---
CONSULT Date of Consult Date of Consult DATE: 11/22/19 TIME: 17:15 History of Present Illness Reason for Visit: The patient is a 19 year old female with a complicated medical and surgical history. She states that she has had long standing gastroparesis with prominent nausea. She has had prior venting gastrostomy with jejunostomy placement by Dr Santana. She was readmitted with prominent nausea which she states was worse than before. She denies significant abdominal pain. Past Medical History Cardiovascular: HTN Pulmonary: Asthma GI: Other Psych: Anxiety, Depression Past Surgical History Past Surgical History: Cholecystectomy, Other Family History Family History: No Significant Social History No ALCOHOL: none Current Medications Current Medications Current Medications Sodium Chloride 1,000 ml @ 1,000 mls/hr 1X ONCE IV Last administered on 11/21/19at 21:06; Start 11/21/19 at 21:00; Stop 11/21/19 at 21:59; Status DC Famotidine (Pepcid Vial) 20 mg 1X ONCE IVP Last administered on 11/21/19at 21:08; Start 11/21/19 at 21:00; Stop 11/21/19 at 21:01; Status DC Morphine Sulfate (Morphine Sulfate) 2 mg 1X ONCE IV Last administered on 11/21/19at 21:09; Start 11/21/19 at 21:00; Stop 11/21/19 at 21:01; Status DC Prochlorperazine Edisylate (Compazine) 10 mg 1X ONCE IV Last administered on 11/21/19at 21:08; Start 11/21/19 at 21:00; Stop 11/21/19 at 21:01; Status DC Ondansetron HCl (Zofran) 4 mg PRN Q8HRS PRN IV NAUSEA/VOMITING 1ST CHOICE Last administered on 11/22/19at 16:26; Start 11/21/19 at 23:00; Stop 11/22/19 at 22:59 Morphine Sulfate (Morphine Sulfate) 2 mg 1X ONCE IV Last administered on 11/21/19at 23:28; Start 11/21/19 at 23:45; Stop 11/21/19 at 23:46; Status DC Morphine Sulfate (Morphine Sulfate) 2 mg PRN Q2HR PRN IV SEVERE PAIN 7-10 Last administered on 11/22/19at 12:11; Start 11/22/19 at 01:45; Stop 11/22/19 at 13:25; Status DC Pantoprazole Sodium (PROTONIX VIAL for IV PUSH) 40 mg BIDAC IVP Last administered on 11/22/19at 16:26; Start 11/22/19 at 12:00 Bisacodyl (Dulcolax Supp) 10 mg 1X ONCE ND Last administered on 11/22/19at 12:11; Start 11/22/19 at 12:00; Stop 11/22/19 at 12:01; Status DC Dicyclomine HCl (Bentyl) 10 mg PRN QID PRN PO GI SYMPTOMS; Start 11/22/19 at 13:30 Methylnaltrexone [place] (Relistor) 12 mg 1X ONCE SQ Last administered on 11/22/19at 14:27; Start 11/22/19 at 14:00; Stop 11/22/19 at 14:01; Status DC Metoclopramide HCl (Reglan Vial) 10 mg PRN Q6HRS PRN IVP NAUSEA/VOMITING Last administered on 11/22/19at 15:32; Start 11/22/19 at 15:30 Morphine Sulfate (Morphine Sulfate) 2 mg PRN Q2HR PRN IV PAIN; Start 11/22/19 at 17:00 Active Scripts Active Lactated Ringers (Ringers Solution,Lactated) 1,000 Ml Iv.soln 1,000 Ml IV DAILY Keflex (Cephalexin) 500 Mg Capsule 1 Cap PO TID 4 Days Miralax (Polyethylene Glycol 3350) 17 Gm Powd.pack 1 Packet PO DAILY 15 Days dissolve in water Hydrocodone-Apap 7.5-325/15 Soln (Hydrocodone Bit/Acetaminophen) 15 Ml Solution 15 Ml JT PRN Q6HRS PRN Reported Advair Hfa 230-21 Mcg Inhaler (Fluticasone/Salmeterol) 12 Gm Hfa.aer.ad 1 Inh IH BID Buspirone Hcl 10 Mg Tablet 0.5 Tab PO BID Reglan (Metoclopramide Hcl) 10 Mg Tablet 10 Mg PO QIDACHS Zelnorm (Tegaserod Hydrogen Maleate) 6 Mg Tablet 6 Mg GT BID Amitriptyline Hcl 75 Mg Tablet 75 Mg PO QHS Dicyclomine Hcl 20 Mg Tablet 20 Mg GT PRN QID PRN Stool Softener (Docusate Sodium) 50 Mg Capsule 50 Mg PO PRN HS Olopatadine HCl 5 Ml Drops 0.1 % OP PRN DAILY PRN Promethazine Hcl 12.5 Mg Tablet 25 Mg GT Q6H PRN Trazodone Hcl 50 Mg Tablet 50 Mg GT HS Maxalt (Rizatriptan Benzoate) 10 Mg Tablet 5 Mg GT PRN DAILY PRN Valproic Acid (Valproate Sodium) 250 Mg/5 Ml Solution 15 Ml PO BID Coq-10 (Ubidecarenone) 100 Mg Capsule 200 Mg GT DAILY Vitamin D3 (Cholecalciferol (Vitamin D3)) 4,000 Unit Capsule 2,000 Unit PO HS Xyzal (Levocetirizine Dihydrochloride) 5 Mg Tablet 5 Mg GT HS Proair Hfa (Albuterol Sulfate) 8.5 Gm Hfa.aer.ad 2 Puff IH PRN Q4-6HRS PRN 21 Days Ipratropium [place] 30 Ml [place] 1 [place] NS DAILY Duoneb 0.5-3(2.5) Mg/3 Ml (Albuterol/Ipratropium) 3 Ml Ampul.neb 3 Ml NEB PRN QID PRN Protonix (Pantoprazole Sodium) 20 Mg Tablet.dr 40 Mg GT HS Montelukast Sodium Tablet (Montelukast Sodium) 10 Mg Tablet 10 Mg GT DAILY PRN Magnesium Oxide 250 Mg Tablet 1 Tab PO DAILY 30 Days Multi Vitamin Daily (Multivitamin) 1 Each Tablet 1 Each GT DAILY Metoprolol Tartrate 50 Mg Tablet 50 Mg GT BID Allergies Allergies: Coded Allergies: Penicillins (Verified Allergy, Intermediate, LIGHT RASH CHILD, 08/30/19) Sulfa (Sulfonamide Antibiotics) (Verified Allergy, Intermediate, 08/29/19) ROS General: No: Chills, Night Sweats, Fatigue, Malaise, Appetite, Other PSYCHOLOGICAL ROS: No: Anxiety, Behavioral Disorder, Concentration difficultie, Decreased libido, Depression, Disorientation, Hallucinations, Hostility, Irritablity, Memory difficulties, Mood Swings, Obsessive thoughts, Physical abuse, Sexual abuse, Sleep disturbances, Suicidal ideation, Other Eyes: No Blurry vision, No Decreased vision, No Double vision, No Dry eyes, No Excessive tearing, No Eye Pain, No Itchy Eyes, No Loss of vision, No Photophobia, No Scotomata, No Uses contacts, No Uses glasses, No Other HEENT: No: Heacaches, Visual Changes, Hearing change, Nasal congestion, Nasal discharge, Oral lesions, Sinus pain, Sore Throat, Epistaxis, Sneezing, Snoring, Tinnitus, Vertigo, Vocal changes, Other ALLERGY AND IMMUNOLOGY: No: Hives, Insect Bite Sensitivity, Itchy/Watery Eyes, Nasal Congestion, Post Nasal Drip, Seasonal Allergies, Other Hematological and Lymphatic: No: Bleeding Problems, Blood Clots, Blood Transfusions, Brusing, Night Sweats, Pallor, Swollen Lymph Nodes, Other ENDOCRINE: No: Breast Changes, Galactorrhea, Hair Pattern Changes, Hot Flashes, Malaise/lethargy, Mood Swings, Palpitations, Polydipsia/polyuria, Skin Changes, Temperature Intolerance, Unexpected Weight Changes, Other Respiratory: No: Cough, Hemoptysis, Orthopnea, Pleuritic Pain, Shortness of breath, SOB with excertion, Sputum Changes, Stridor, Tachypnea, Wheezing, Other Cardiovascular: No Chest Pain, No Palpitations, No Orthopnea, No Paroxysmal Noc. Dyspnea, No Edema, No Lt Headedness, No Other Gastrointestinal: Yes Nausea Genitourinary: No Dysuria, No Frequency, No Incontinence, No Hematuria, No Retention, No Discharge, No Urgency, No Pain, No Flank Pain, No Other, No , No , No , No , No , No , No Musculoskeletal: No Gait Disturbance, No Joint Pain, No Joint Stiffness, No Joint Swelling, No Muscle Pain, No Muscular Weakness, No Pain In:, No Swelling In:, No Other Neurological: No Behavorial Changes, No Bowel/Bladder ControlChng, No Confusion, No Dizziness, No Gait Disturbance, No Headaches, No Impaired Coord/balance, No Memory Loss, No Numbness/Tingling, No Seizures, No Speech Problems, No Tremors, No Visual Changes, No Weakness, No Other Skin: No Dry Skin, No Eczema, No Hair Changes, No Lumps, No Mole Changes, No Mottling, No Nail Changes, No Pruritus, No Rash, No Skin Lesion Changes, No Other, No Acne Physical Exam General: Alert, Oriented X3 HEENT: Atraumatic Lungs: Clear to auscultation Abdomen: Soft (nontender, G and J tubes present) Extremities: No clubbing, No cyanosis Skin: No rashes Neuro: Normal speech Psych/Mental Status: Other (flat affect) Vitals VITALS Vital Signs Date Time Temp Pulse Resp B/P (MAP) Pulse Ox O2 Delivery O2 Flow Rate FiO2 11/22/19 15:57 98.2 113 18 117/78 (91) 95 98.2 11/22/19 14:24 Room Air Labs Labs Laboratory Tests Test 11/21/19 20:41 11/21/19 21:51 White Blood Count 4.5 x10^3/uL (4.0-11.0) Red Blood Count 3.56 x10^6/uL (3.50-5.40) Hemoglobin 11.6 g/dL (12.0-15.5) Hematocrit 33.5 % (36.0-47.0) Mean Corpuscular Volume 94 fL (79-100) Mean Corpuscular Hemoglobin 33 pg (25-35) Mean Corpuscular Hemoglobin Concent 35 g/dL (31-37) Red Cell Distribution Width 13.3 % (11.5-14.5) Platelet Count 142 x10^3/uL (140-400) Neutrophils (%) (Auto) 58 % (31-73) Lymphocytes (%) (Auto) 35 % (24-48) Monocytes (%) (Auto) 6 % (0-9) Eosinophils (%) (Auto) 1 % (0-3) Basophils (%) (Auto) 0 % (0-3) Neutrophils # (Auto) 2.6 x10^3/uL (1.8-7.7) Lymphocytes # (Auto) 1.6 x10^3/uL (1.0-4.8) Monocytes # (Auto) 0.3 x10^3/uL (0.0-1.1) Eosinophils # (Auto) 0.0 x10^3/uL (0.0-0.7) Basophils # (Auto) 0.0 x10^3/uL (0.0-0.2) Sodium Level 139 mmol/L (136-145) Potassium Level 4.2 mmol/L (3.5-5.1) Chloride Level 100 mmol/L (98-107) Carbon Dioxide Level 29 mmol/L (21-32) Anion Gap 10 (6-14) Blood Urea Nitrogen 11 mg/dL (7-20) Creatinine 0.6 mg/dL (0.6-1.0) Estimated GFR (Cockcroft-Gault) 126.2 BUN/Creatinine Ratio 18 (6-20) Glucose Level 80 mg/dL (70-99) Calcium Level 8.5 mg/dL (8.5-10.1) Total Bilirubin 0.4 mg/dL (0.2-1.0) Aspartate Amino Transf (AST/SGOT) 25 U/L (15-37) Alanine Aminotransferase (ALT/SGPT) 32 U/L (14-59) Alkaline Phosphatase 84 U/L (46-116) Total Protein 6.7 g/dL (6.4-8.2) Albumin 3.6 g/dL (3.4-5.0) Albumin/Globulin Ratio 1.2 (1.0-1.7) Lipase 52 U/L (73-393) Urine Collection Type Void Urine Color Yellow Urine Clarity Clear Urine pH 7.5 (<5.0-8.0) Urine Specific [place] 1.020 (1.000-1.030) Urine Protein Negative mg/dL (NEG-TRACE) Urine Glucose (UA) Negative mg/dL (NEG) Urine Ketones (Stick) Negative mg/dL (NEG) Urine Blood Negative (NEG) Urine Nitrite Negative (NEG) Urine Bilirubin Negative (NEG) Urine Urobilinogen Dipstick 1.0 mg/dL (0.2 mg/dL) Urine Leukocyte Esterase Negative (NEG) Urine RBC 0 /HPF (0-2) Urine WBC Occ /HPF (0-4) Urine Squamous Epithelial Cells Many /LPF Urine Bacteria Many /HPF (0-FEW) Urine Mucus Mod /LPF Urine Test Negative (NEG) Laboratory Tests Test 11/21/19 20:41 11/21/19 21:51 White Blood Count 4.5 x10^3/uL (4.0-11.0) Red Blood Count 3.56 x10^6/uL (3.50-5.40) Hemoglobin 11.6 g/dL (12.0-15.5) Hematocrit 33.5 % (36.0-47.0) Mean Corpuscular Volume 94 fL (79-100) Mean Corpuscular Hemoglobin 33 pg (25-35) Mean Corpuscular Hemoglobin Concent 35 g/dL (31-37) Red Cell Distribution Width 13.3 % (11.5-14.5) Platelet Count 142 x10^3/uL (140-400) Neutrophils (%) (Auto) 58 % (31-73) Lymphocytes (%) (Auto) 35 % (24-48) Monocytes (%) (Auto) 6 % (0-9) Eosinophils (%) (Auto) 1 % (0-3) Basophils (%) (Auto) 0 % (0-3) Neutrophils # (Auto) 2.6 x10^3/uL (1.8-7.7) Lymphocytes # (Auto) 1.6 x10^3/uL (1.0-4.8) Monocytes # (Auto) 0.3 x10^3/uL (0.0-1.1) Eosinophils # (Auto) 0.0 x10^3/uL (0.0-0.7) Basophils # (Auto) 0.0 x10^3/uL (0.0-0.2) Sodium Level 139 mmol/L (136-145) Potassium Level 4.2 mmol/L (3.5-5.1) Chloride Level 100 mmol/L (98-107) Carbon Dioxide Level 29 mmol/L (21-32) Anion Gap 10 (6-14) Blood Urea Nitrogen 11 mg/dL (7-20) Creatinine 0.6 mg/dL (0.6-1.0) Estimated GFR (Cockcroft-Gault) 126.2 BUN/Creatinine Ratio 18 (6-20) Glucose Level 80 mg/dL (70-99) Calcium Level 8.5 mg/dL (8.5-10.1) Total Bilirubin 0.4 mg/dL (0.2-1.0) Aspartate Amino Transf (AST/SGOT) 25 U/L (15-37) Alanine Aminotransferase (ALT/SGPT) 32 U/L (14-59) Alkaline Phosphatase 84 U/L (46-116) Total Protein 6.7 g/dL (6.4-8.2) Albumin 3.6 g/dL (3.4-5.0) Albumin/Globulin Ratio 1.2 (1.0-1.7) Lipase 52 U/L (73-393) Urine Collection Type Void Urine Color Yellow Urine Clarity Clear Urine pH 7.5 (<5.0-8.0) Urine Specific [place] 1.020 (1.000-1.030) Urine Protein Negative mg/dL (NEG-TRACE) Urine Glucose (UA) Negative mg/dL (NEG) Urine Ketones (Stick) Negative mg/dL (NEG) Urine Blood Negative (NEG) Urine Nitrite Negative (NEG) Urine Bilirubin Negative (NEG) Urine Urobilinogen Dipstick 1.0 mg/dL (0.2 mg/dL) Urine Leukocyte Esterase Negative (NEG) Urine RBC 0 /HPF (0-2) Urine WBC Occ /HPF (0-4) Urine Squamous Epithelial Cells Many /LPF Urine Bacteria Many /HPF (0-FEW) Urine Mucus Mod /LPF Urine Test Negative (NEG) Assessment/Plan Assessment/Plan Gastroparesis, nausea; she poses a difficult challenge as therapeutic options are limited. There evidently was discussion with Dr Santana about considering a pyeloroplasty. This is somewhat controversial and I would defer to Dr Santana who will be returning on Tuesday. Until then recommend supportive/symptomatic management, GI following and appreciate their assistance. ENDER BEACH MD Nov 22, 2019 17:19
[2019-11-22 19:00] VITALS: BP 96/39
[2019-11-22] MEDS ORDERED: IV NORMAL SALINE 1000ML BAG 1,000 ML IV SCH (20:00)
[2019-11-22] MEDS: AMINO AC 3%/ELECTROLYTE/GLYCER 1,000 ML IV SCH (21:59)
[2019-11-22 23:00] VITALS: BP 127/85
[2019-11-22] MEDS: PROCHLORPERAZINE 10 MG/2 ML VIAL. IV PRN (23:37)
[2019-11-23 03:00] VITALS: BP 119/79
[2019-11-23] MEDS: MORPHINE SULFATE 2 MG/ML VIAL. IV PRN ×6 (03:31→20:49)
[2019-11-23] MEDS: ONDANSETRON PF 4 MG/2 ML VIAL. IVP PRN ×2 (03:31→12:47)
[2019-11-23] MEDS: METOCLOPRAMIDE HCL 10 MG/2 ML VIAL. IVP PRN ×2 (05:57→15:56)
[2019-11-23] MEDS: PANTOPRAZOLE IV PUSH 40 MG VIAL. IVP SCH ×2 (05:58→17:35)
[2019-11-23 07:00] VITALS: BP 100/54
--- NOTE | 2019-11-23 10:04 | PDOC ---
SURGICAL PROGRESS NOTE Subjective Patient still complaining of nausea one episode of emesis last night Vital Signs Vital Signs Date Time Temp Pulse Resp B/P (MAP) Pulse Ox O2 Delivery O2 Flow Rate FiO2 11/23/19 07:00 98.1 107 18 100/54 (69) 97 Room Air 98.1 I&O Intake and Output 11/23/19 07:00 Intake Total 0 ml Output Total 2 ml Balance -2 ml Intake Oral 0 ml Output Urine Total 2 ml PATIENT HAS A GONSALES: No General: Alert, Oriented X3, Cooperative, mild distress Abdomen: Normal bowel sounds, Soft, Other (Diffusely tender no peritoneal signs) Labs Laboratory Tests Test 11/21/19 20:41 11/21/19 21:51 White Blood Count 4.5 x10^3/uL (4.0-11.0) Red Blood Count 3.56 x10^6/uL (3.50-5.40) Hemoglobin 11.6 g/dL (12.0-15.5) Hematocrit 33.5 % (36.0-47.0) Mean Corpuscular Volume 94 fL (79-100) Mean Corpuscular Hemoglobin 33 pg (25-35) Mean Corpuscular Hemoglobin Concent 35 g/dL (31-37) Red Cell Distribution Width 13.3 % (11.5-14.5) Platelet Count 142 x10^3/uL (140-400) Neutrophils (%) (Auto) 58 % (31-73) Lymphocytes (%) (Auto) 35 % (24-48) Monocytes (%) (Auto) 6 % (0-9) Eosinophils (%) (Auto) 1 % (0-3) Basophils (%) (Auto) 0 % (0-3) Neutrophils # (Auto) 2.6 x10^3/uL (1.8-7.7) Lymphocytes # (Auto) 1.6 x10^3/uL (1.0-4.8) Monocytes # (Auto) 0.3 x10^3/uL (0.0-1.1) Eosinophils # (Auto) 0.0 x10^3/uL (0.0-0.7) Basophils # (Auto) 0.0 x10^3/uL (0.0-0.2) Sodium Level 139 mmol/L (136-145) Potassium Level 4.2 mmol/L (3.5-5.1) Chloride Level 100 mmol/L (98-107) Carbon Dioxide Level 29 mmol/L (21-32) Anion Gap 10 (6-14) Blood Urea Nitrogen 11 mg/dL (7-20) Creatinine 0.6 mg/dL (0.6-1.0) Estimated GFR (Cockcroft-Gault) 126.2 BUN/Creatinine Ratio 18 (6-20) Glucose Level 80 mg/dL (70-99) Calcium Level 8.5 mg/dL (8.5-10.1) Total Bilirubin 0.4 mg/dL (0.2-1.0) Aspartate Amino Transf (AST/SGOT) 25 U/L (15-37) Alanine Aminotransferase (ALT/SGPT) 32 U/L (14-59) Alkaline Phosphatase 84 U/L (46-116) Total Protein 6.7 g/dL (6.4-8.2) Albumin 3.6 g/dL (3.4-5.0) Albumin/Globulin Ratio 1.2 (1.0-1.7) Lipase 52 U/L (73-393) Urine Collection Type Void Urine Color Yellow Urine Clarity Clear Urine pH 7.5 (<5.0-8.0) Urine Specific [place] 1.020 (1.000-1.030) Urine Protein Negative mg/dL (NEG-TRACE) Urine Glucose (UA) Negative mg/dL (NEG) Urine Ketones (Stick) Negative mg/dL (NEG) Urine Blood Negative (NEG) Urine Nitrite Negative (NEG) Urine Bilirubin Negative (NEG) Urine Urobilinogen Dipstick 1.0 mg/dL (0.2 mg/dL) Urine Leukocyte Esterase Negative (NEG) Urine RBC 0 /HPF (0-2) Urine WBC Occ /HPF (0-4) Urine Squamous Epithelial Cells Many /LPF Urine Bacteria Many /HPF (0-FEW) Urine Mucus Mod /LPF Urine Test Negative (NEG) Assessment/Plan Gastroparesis with nausea vomiting Continue supportive care Dr. Mohr to follow for possible pyloral plasty Justicifation of Admission Dx: Justifications for Admission: Justification of Admission Dx: JEFFERSON Perry MD Nov 23, 2019 10:03
[2019-11-23] MEDS: PROCHLORPERAZINE 10 MG/2 ML VIAL. IV PRN ×2 (10:39→20:48)
[2019-11-23] MEDS: AMINO AC 3%/ELECTROLYTE/GLYCER 1,000 ML IV SCH (10:39)
[2019-11-23 11:00] VITALS: BP 111/69
--- NOTE | 2019-11-23 12:05 | PDOC ---
[employer] PROGRESS NOTE Chief Complaint Chief Complaint Severe gastroparesis Cyclic vomiting syndrome GJ tube Severe gastroparesis Cyclic vomiting syndrome G-tube (x 20), J-tube, GERD, hypertension, gastroparesis, cyclic vomiting, cholecystectomy, tonsillectomy. History of Present Illness History of Present Illness 11/23/2019 Patient seen and examined She still complains of nausea vomiting Chart reviewed Discussed with RN Vitals/I&O Vitals/I&O: Vital Signs Date Time Temp Pulse Resp B/P (MAP) Pulse Ox O2 Delivery O2 Flow Rate FiO2 11/23/19 11:10 Room Air 11/23/19 10:40 97 11/23/19 07:00 98.1 107 18 100/54 (69) 98.1 I & O 11/22/19 11/22/19 11/23/19 15:00 23:00 07:00 Intake Total 0 ml 0 ml 0 ml Output Total 0 ml 2 ml Balance 0 ml -2 ml 0 ml Physical Exam General: Alert, Oriented X3, Cooperative, mild distress Abdomen: Normal bowel sounds, Soft, Other (GJ tube in place) Extremities: No clubbing, No cyanosis Skin: No rashes Assessment and Plan Assessmemt and Plan Severe gastroparesis Cyclic vomiting syndrome G-tube (x 20), J-tube, GERD, hypertension, gastroparesis, cyclic vomiting, cholecystectomy, tonsillectomy. Plan PRN Zofran J tube feedings Home meds DVT prophylaxis Full code Appreciate subspecialist input Per GI please see below; Okay to resume J tube feeds per GI - has a nutrition consult. Defer IVF to Dr. Bynum. Try BID PPI since she says this helped recently - can order IV for now, change to PO as able. Dicyclomine typically helps chronic right-sided pain - ideally would use this and avoid morphine. X-ray results noted - try suppository. Will review all w/ Dr. Doyle. Comment Review of Relevant I have reviewed the following items lalo (where applicable) has been applied. Medications: Current Medications Medications (Trade) Dose Ordered Sig/Kel Route PRN Reason Start Time Stop Time Status Last Admin Dose Admin Methylnaltrexone [place] (Relistor) 12 mg 1X ONCE SQ 11/22/19 14:00 11/22/19 14:01 DC 11/22/19 14:27 Metoclopramide HCl (Reglan Vial) 10 mg PRN Q6HRS PRN IVP NAUSEA/VOMITING 11/22/19 15:30 11/23/19 05:57 Morphine Sulfate (Morphine Sulfate) 2 mg PRN Q2HR PRN IV PAIN 11/22/19 17:00 11/23/19 10:40 Sodium Chloride 1,000 ml @ 75 mls/hr [id number] IV 11/22/19 20:00 11/22/19 20:11 DC 11/22/19 19:53 Amino Acids/ Glycerin/ Electrolytes 1,000 ml @ 75 mls/hr [id number] IV 11/22/19 21:00 11/23/19 10:39 Ondansetron HCl (Zofran) 4 mg PRN Q6HRS PRN IVP NAUSEA/VOMITING 1ST CHOICE 11/22/19 23:30 11/23/19 03:31 Prochlorperazine Edisylate (Compazine) 10 mg PRN Q6HRS PRN IV NAUSEA/VOMITING 2ND CHOICE 11/22/19 23:30 11/23/19 10:39 Justicifation of Admission Dx: Justifications for Admission: Justification of Admission Dx: LALITHA Martini III DO Nov 23, 2019 12:05
--- NOTE | 2019-11-23 12:09 | PDOC ---
[facility] PROGRESS NOTE Subjective Still nauseated; aggravated by the Relistor. Did not stool after. Not much pain complaints. On questioning, saw neurologist at and had normal MRI brain. No other testing. Seems to have some history suggesting vertigo (vague). Past history does not suggest rumination or CVS in the past. Physical Exam Lungs clear. RRR Abdomen soft, not tender nor distended. G and J tubes. Review of Relevant I have reviewed the following items lalo (where applicable) has been applied. Labs Laboratory Tests Test 11/21/19 20:41 11/21/19 21:51 White Blood Count 4.5 x10^3/uL (4.0-11.0) Red Blood Count 3.56 x10^6/uL (3.50-5.40) Hemoglobin 11.6 g/dL (12.0-15.5) Hematocrit 33.5 % (36.0-47.0) Mean Corpuscular Volume 94 fL (79-100) Mean Corpuscular Hemoglobin 33 pg (25-35) Mean Corpuscular Hemoglobin Concent 35 g/dL (31-37) Red Cell Distribution Width 13.3 % (11.5-14.5) Platelet Count 142 x10^3/uL (140-400) Neutrophils (%) (Auto) 58 % (31-73) Lymphocytes (%) (Auto) 35 % (24-48) Monocytes (%) (Auto) 6 % (0-9) Eosinophils (%) (Auto) 1 % (0-3) Basophils (%) (Auto) 0 % (0-3) Neutrophils # (Auto) 2.6 x10^3/uL (1.8-7.7) Lymphocytes # (Auto) 1.6 x10^3/uL (1.0-4.8) Monocytes # (Auto) 0.3 x10^3/uL (0.0-1.1) Eosinophils # (Auto) 0.0 x10^3/uL (0.0-0.7) Basophils # (Auto) 0.0 x10^3/uL (0.0-0.2) Sodium Level 139 mmol/L (136-145) Potassium Level 4.2 mmol/L (3.5-5.1) Chloride Level 100 mmol/L (98-107) Carbon Dioxide Level 29 mmol/L (21-32) Anion Gap 10 (6-14) Blood Urea Nitrogen 11 mg/dL (7-20) Creatinine 0.6 mg/dL (0.6-1.0) Estimated GFR (Cockcroft-Gault) 126.2 BUN/Creatinine Ratio 18 (6-20) Glucose Level 80 mg/dL (70-99) Calcium Level 8.5 mg/dL (8.5-10.1) Total Bilirubin 0.4 mg/dL (0.2-1.0) Aspartate Amino Transf (AST/SGOT) 25 U/L (15-37) Alanine Aminotransferase (ALT/SGPT) 32 U/L (14-59) Alkaline Phosphatase 84 U/L (46-116) Total Protein 6.7 g/dL (6.4-8.2) Albumin 3.6 g/dL (3.4-5.0) Albumin/Globulin Ratio 1.2 (1.0-1.7) Lipase 52 U/L (73-393) Urine Collection Type Void Urine Color Yellow Urine Clarity Clear Urine pH 7.5 (<5.0-8.0) Urine Specific [place] 1.020 (1.000-1.030) Urine Protein Negative mg/dL (NEG-TRACE) Urine Glucose (UA) Negative mg/dL (NEG) Urine Ketones (Stick) Negative mg/dL (NEG) Urine Blood Negative (NEG) Urine Nitrite Negative (NEG) Urine Bilirubin Negative (NEG) Urine Urobilinogen Dipstick 1.0 mg/dL (0.2 mg/dL) Urine Leukocyte Esterase Negative (NEG) Urine RBC 0 /HPF (0-2) Urine WBC Occ /HPF (0-4) Urine Squamous Epithelial Cells Many /LPF Urine Bacteria Many /HPF (0-FEW) Urine Mucus Mod /LPF Urine Test Negative (NEG) Microbiology 11/21/19 Urine Culture - Final, Complete Vitals/I & O Vital Sign - Last 24 Hours 11/22/19 11/22/19 11/22/19 11/22/19 12:11 14:24 15:57 17:36 Temp 98.2 98.2 Pulse 113 Resp 18 B/P (MAP) 117/78 (91) Pulse Ox 95 O2 Delivery Room Air Room Air Room Air 11/22/19 11/22/19 11/22/19 11/22/19 18:39 19:00 20:00 20:02 Temp 97.8 97.8 Pulse 88 Resp 20 B/P (MAP) 96/39 (58) Pulse Ox 97 97 O2 Delivery Room Air Room Air Room Air Room Air 11/22/19 11/22/19 11/22/19 11/22/19 20:32 23:00 23:23 23:53 Temp 97.5 97.5 Pulse 120 Resp 20 B/P (MAP) 127/85 (99) Pulse Ox 97 99 97 97 O2 Delivery Room Air Room Air Room Air Room Air 11/23/19 11/23/19 11/23/19 11/23/19 03:00 03:31 04:01 06:14 Temp 97.1 97.1 Pulse 111 Resp 20 B/P (MAP) 119/79 (92) Pulse Ox 97 97 97 97 O2 Delivery Room Air Room Air Room Air Room Air 11/23/19 11/23/19 11/23/19 11/23/19 06:44 07:00 10:40 11:10 Temp 98.1 98.1 Pulse 107 Resp B/P (MAP) 100/54 (69) Pulse Ox 97 97 97 O2 Delivery Room Air Room Air Room Air Room Air Intake and Output 11/22/19 11/22/19 11/23/19 15:00 23:00 07:00 Intake Total 0 ml 0 ml 0 ml Output Total 0 ml 2 ml Balance 0 ml -2 ml 0 ml Assessment Apparent gastroparesis; no obvious underlying cause so idiopathic? Why this developed over a years' time unclear; had normal GES at last August with symptoms antedating that for some time, though historical report of "abnormal" GES prior to last year. Don't have confirmatory data. Centrally-mediated process? If vertigo, suggests possibly. Plan of Care: Continue current Tx, Mgmt Plan of Care Note Await Dr. Santana's return. Continue PPI, prn metoclopramide and biscodyl. Will request neurologic opinion. Off the weekend. Coverage available if needed. Justicifation of Admission Dx: Justifications for Admission: Justification of Admission Dx: No GEORGES DONNELLY MD Nov 23, 2019 12:09
[2019-11-23 15:00] VITALS: BP 94/49
--- NOTE | 2019-11-23 15:31 | PDOC2 ---
CONSULT Date of Consult Date of Consult DATE: 11/23/19 TIME: 15:31 Reason for Consult Reason for Consult: Nausea and dizziness Identification/Chief Complaint Chief Complaint Nausea and dizziness History of Present Illness Reason for Visit: This patient is 19-year-old woman with past medical history of multiple medical problems history of migraine headaches hypertension and gastroesophageal reflux disease PEG tube, cholecystectomy presented with complaint of nausea or vomiting not feeling well for the last few days. Patient also has history of G-tube. complaint of dizziness with the getting out of the bed too quickly change in head position making symptoms worse Patient denies any worsening of headache difficulty speaking tingling numbness on face or any focal extremity weakness. Past Medical History Cardiovascular: HTN Pulmonary: Asthma GI: Other Psych: Anxiety, Depression Past Surgical History Past Surgical History: Cholecystectomy, Other Family History Family History: No Significant Social History No ALCOHOL: none Current Medications Current Medications Current Medications Sodium Chloride 1,000 ml @ 1,000 mls/hr 1X ONCE IV Last administered on 11/21/19at 21:06; Start 11/21/19 at 21:00; Stop 11/21/19 at 21:59; Status DC Famotidine (Pepcid Vial) 20 mg 1X ONCE IVP Last administered on 11/21/19at 21:08; Start 11/21/19 at 21:00; Stop 11/21/19 at 21:01; Status DC Morphine Sulfate (Morphine Sulfate) 2 mg 1X ONCE IV Last administered on 11/21/19at 21:09; Start 11/21/19 at 21:00; Stop 11/21/19 at 21:01; Status DC Prochlorperazine Edisylate (Compazine) 10 mg 1X ONCE IV Last administered on 11/21/19at 21:08; Start 11/21/19 at 21:00; Stop 11/21/19 at 21:01; Status DC Ondansetron HCl (Zofran) 4 mg PRN Q8HRS PRN IV NAUSEA/VOMITING 1ST CHOICE Last administered on 11/22/19at 16:26; Start 11/21/19 at 23:00; Stop 11/22/19 at 22:59; Status DC Morphine Sulfate (Morphine Sulfate) 2 mg 1X ONCE IV Last administered on 11/21/19at 23:28; Start 11/21/19 at 23:45; Stop 11/21/19 at 23:46; Status DC Morphine Sulfate (Morphine Sulfate) 2 mg PRN Q2HR PRN IV SEVERE PAIN 7-10 Last administered on 11/22/19at 12:11; Start 11/22/19 at 01:45; Stop 11/22/19 at 13:25; Status DC Pantoprazole Sodium (PROTONIX VIAL for IV PUSH) 40 mg BIDAC IVP Last administered on 11/23/19at 05:58; Start 11/22/19 at 12:00 Bisacodyl (Dulcolax Supp) 10 mg 1X ONCE HI Last administered on 11/22/19at 12:11; Start 11/22/19 at 12:00; Stop 11/22/19 at 12:01; Status DC Dicyclomine HCl (Bentyl) 10 mg PRN QID PRN PO GI SYMPTOMS; Start 11/22/19 at 13:30 Methylnaltrexone [place] (Relistor) 12 mg 1X ONCE SQ Last administered on 11/22/19at 14:27; Start 11/22/19 at 14:00; Stop 11/22/19 at 14:01; Status DC Metoclopramide HCl (Reglan Vial) 10 mg PRN Q6HRS PRN IVP NAUSEA/VOMITING Last administered on 11/23/19at 05:57; Start 11/22/19 at 15:30 Morphine Sulfate (Morphine Sulfate) 2 mg PRN Q2HR PRN IV PAIN Last administered on 11/23/19at 12:47; Start 11/22/19 at 17:00 Sodium Chloride 1,000 ml @ 75 mls/hr [id number] IV Last administered on 11/22/19at 19:53; Start 11/22/19 at 20:00; Stop 11/22/19 at 20:11; Status DC Amino Acids/ Glycerin/ Electrolytes 1,000 ml @ 75 mls/hr [id number] IV Last administered on 11/23/19at 10:39; Start 11/22/19 at 21:00 Ondansetron HCl (Zofran) 4 mg PRN Q6HRS PRN IVP NAUSEA/VOMITING 1ST CHOICE Last administered on 11/23/19at 12:47; Start 11/22/19 at 23:30 Prochlorperazine Edisylate (Compazine) 10 mg PRN Q6HRS PRN IV NAUSEA/VOMITING 2ND CHOICE Last administered on 11/23/19at 10:39; Start 11/22/19 at 23:30 Active Scripts Active Lactated Ringers (Ringers Solution,Lactated) 1,000 Ml Iv.soln 1,000 Ml IV DAILY Keflex (Cephalexin) 500 Mg Capsule 1 Cap PO TID 4 Days Miralax (Polyethylene Glycol 3350) 17 Gm Powd.pack 1 Packet PO DAILY 15 Days dissolve in water Hydrocodone-Apap 7.5-325/15 Soln (Hydrocodone Bit/Acetaminophen) 15 Ml Solution 15 Ml JT PRN Q6HRS PRN Reported Advair Hfa 230-21 Mcg Inhaler (Fluticasone/Salmeterol) 12 Gm Hfa.aer.ad 1 Inh IH BID Buspirone Hcl 10 Mg Tablet 0.5 Tab PO BID Reglan (Metoclopramide Hcl) 10 Mg Tablet 10 Mg PO QIDACHS Zelnorm (Tegaserod Hydrogen Maleate) 6 Mg Tablet 6 Mg GT BID Amitriptyline Hcl 75 Mg Tablet 75 Mg PO QHS Dicyclomine Hcl 20 Mg Tablet 20 Mg GT PRN QID PRN Stool Softener (Docusate Sodium) 50 Mg Capsule 50 Mg PO PRN HS Olopatadine HCl 5 Ml Drops 0.1 % OP PRN DAILY PRN Promethazine Hcl 12.5 Mg Tablet 25 Mg GT Q6H PRN Trazodone Hcl 50 Mg Tablet 50 Mg GT HS Maxalt (Rizatriptan Benzoate) 10 Mg Tablet 5 Mg GT PRN DAILY PRN Valproic Acid (Valproate Sodium) 250 Mg/5 Ml Solution 15 Ml PO BID Coq-10 (Ubidecarenone) 100 Mg Capsule 200 Mg GT DAILY Vitamin D3 (Cholecalciferol (Vitamin D3)) 4,000 Unit Capsule 2,000 Unit PO HS Xyzal (Levocetirizine Dihydrochloride) 5 Mg Tablet 5 Mg GT HS Proair Hfa (Albuterol Sulfate) 8.5 Gm Hfa.aer.ad 2 Puff IH PRN Q4-6HRS PRN 21 Days Ipratropium [place] 30 Ml [place] 1 [place] NS DAILY Duoneb 0.5-3(2.5) Mg/3 Ml (Albuterol/Ipratropium) 3 Ml Ampul.neb 3 Ml NEB PRN QID PRN Protonix (Pantoprazole Sodium) 20 Mg Tablet. 40 Mg GT HS Montelukast Sodium Tablet (Montelukast Sodium) 10 Mg Tablet 10 Mg GT DAILY PRN Magnesium Oxide 250 Mg Tablet 1 Tab PO DAILY 30 Days Multi Vitamin Daily (Multivitamin) 1 Each Tablet 1 Each GT DAILY Metoprolol Tartrate 50 Mg Tablet 50 Mg GT BID Allergies Allergies: Coded Allergies: Penicillins (Verified Allergy, Intermediate, LIGHT RASH CHILD, 08/30/19) Sulfa (Sulfonamide Antibiotics) (Verified Allergy, Intermediate, 08/29/19) Physical Exam Physical Exam General no acute distress. HEENT: Normocephalic and atraumatic. NECK: Supple without bruit Respiratory: Clear to auscultation bilaterally Heart: Regular rate and rhythm, S1S2 normal NEUROLOGIC: Mental status Alert oriented. Cranial nerve equally reactive pupils, and intact extraocular movements. No facial asymmetry. Palate elevates and tongue protrudes in midline. Reflexes are 1-2 with flexor plantar responses. Coordination no dysmetria Strength able to move all exts equally. Sensory exam is intact for light touch and pinprick. Gait in bed. Vitals VITALS Vital Signs Date Time Temp Pulse Resp B/P (MAP) Pulse Ox O2 Delivery O2 Flow Rate FiO2 11/23/19 13:17 Room Air 11/23/19 11:00 98.4 105 18 111/69 (83) 95 98.4 Labs Labs Laboratory Tests Test 11/21/19 20:41 11/21/19 21:51 White Blood Count 4.5 x10^3/uL (4.0-11.0) Red Blood Count 3.56 x10^6/uL (3.50-5.40) Hemoglobin 11.6 g/dL (12.0-15.5) Hematocrit 33.5 % (36.0-47.0) Mean Corpuscular Volume 94 fL (79-100) Mean Corpuscular Hemoglobin 33 pg (25-35) Mean Corpuscular Hemoglobin Concent 35 g/dL (31-37) Red Cell Distribution Width 13.3 % (11.5-14.5) Platelet Count 142 x10^3/uL (140-400) Neutrophils (%) (Auto) 58 % (31-73) Lymphocytes (%) (Auto) 35 % (24-48) Monocytes (%) (Auto) 6 % (0-9) Eosinophils (%) (Auto) 1 % (0-3) Basophils (%) (Auto) 0 % (0-3) Neutrophils # (Auto) 2.6 x10^3/uL (1.8-7.7) Lymphocytes # (Auto) 1.6 x10^3/uL (1.0-4.8) Monocytes # (Auto) 0.3 x10^3/uL (0.0-1.1) Eosinophils # (Auto) 0.0 x10^3/uL (0.0-0.7) Basophils # (Auto) 0.0 x10^3/uL (0.0-0.2) Sodium Level 139 mmol/L (136-145) Potassium Level 4.2 mmol/L (3.5-5.1) Chloride Level 100 mmol/L (98-107) Carbon Dioxide Level 29 mmol/L (21-32) Anion Gap 10 (6-14) Blood Urea Nitrogen 11 mg/dL (7-20) Creatinine 0.6 mg/dL (0.6-1.0) Estimated GFR (Cockcroft-Gault) 126.2 BUN/Creatinine Ratio 18 (6-20) Glucose Level 80 mg/dL (70-99) Calcium Level 8.5 mg/dL (8.5-10.1) Total Bilirubin 0.4 mg/dL (0.2-1.0) Aspartate Amino Transf (AST/SGOT) 25 U/L (15-37) Alanine Aminotransferase (ALT/SGPT) 32 U/L (14-59) Alkaline Phosphatase 84 U/L (46-116) Total Protein 6.7 g/dL (6.4-8.2) Albumin 3.6 g/dL (3.4-5.0) Albumin/Globulin Ratio 1.2 (1.0-1.7) Lipase 52 U/L (73-393) Urine Collection Type Void Urine Color Yellow Urine Clarity Clear Urine pH 7.5 (<5.0-8.0) Urine Specific [place] 1.020 (1.000-1.030) Urine Protein Negative mg/dL (NEG-TRACE) Urine Glucose (UA) Negative mg/dL (NEG) Urine Ketones (Stick) Negative mg/dL (NEG) Urine Blood Negative (NEG) Urine Nitrite Negative (NEG) Urine Bilirubin Negative (NEG) Urine Urobilinogen Dipstick 1.0 mg/dL (0.2 mg/dL) Urine Leukocyte Esterase Negative (NEG) Urine RBC 0 /HPF (0-2) Urine WBC Occ /HPF (0-4) Urine Squamous Epithelial Cells Many /LPF Urine Bacteria Many /HPF (0-FEW) Urine Mucus Mod /LPF Urine Test Negative (NEG) Assessment/Plan Assessment/Plan This patient is 19-year-old woman with past medical history of multiple medical problems history of migraine headaches hypertension and gastroesophageal reflux disease PEG tube, cholecystectomy presented with complaint of nausea or vomiting not feeling well for the last few days. Patient also has history of G-tube. complaint of dizziness with the getting out of the bed too quickly change in head position making symptoms worse Patient denies any worsening of headache difficulty speaking tingling numbness on face or any focal extremity weakness. Patient is getting further GI workup with severe gastroparesis, Dizziness positional will get MRI of brain to evaluate for any acute intracranial etiology. On J tube feedings. P.m. nausea medication. Continue medical management. Plan discussed with patient at length PRUDENCIO BLAKE MD Nov 23, 2019 15:31
[2019-11-23 19:40] VITALS: BP 108/69
[2019-11-23 23:00] VITALS: BP 93/62
[2019-11-24] MEDS: AMINO AC 3%/ELECTROLYTE/GLYCER 1,000 ML IV SCH ×2 (01:33→16:02)
[2019-11-24] MEDS: MORPHINE SULFATE 2 MG/ML VIAL. IV PRN ×9 (01:33→21:43)
[2019-11-24] MEDS: ONDANSETRON PF 4 MG/2 ML VIAL. IVP PRN ×3 (01:34→19:28)
[2019-11-24 03:00] VITALS: BP 104/67
[2019-11-24] MEDS: PANTOPRAZOLE IV PUSH 40 MG VIAL. IVP SCH ×2 (06:10→16:42)
[2019-11-24] MEDS: PROCHLORPERAZINE 10 MG/2 ML VIAL. IV PRN ×3 (06:15→21:43)
[2019-11-24 07:59] VITALS: BP 105/62
[2019-11-24] MEDS: METOCLOPRAMIDE HCL 10 MG/2 ML VIAL. IVP PRN ×2 (08:03→16:42)
[2019-11-24 11:59] VITALS: BP 114/63
--- NOTE | 2019-11-24 12:42 | PDOC ---
[employer] PROGRESS NOTE Chief Complaint Chief Complaint Persistent nausea despite the following : Severe gastroparesis (she has been seen at the [facility] and among other places) Status post GJ tube and she is on continuous pump of feeds at 60 cc an hour at home Cyclic vomiting syndrome GJ tube Severe gastroparesis Cyclic vomiting syndrome G-tube (x 20), J-tube, GERD, hypertension, gastroparesis, cyclic vomiting, cholecystectomy, tonsillectomy. 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 Many GJ tubes - issues ww/ misplacement in the past and re-positioning w/ IR, though most recently conversion of gastrojejunostomy tube to gastrostomy tube and placement of jejunostomy tube by dr. Santana in 08/2019. H/o H. pylori treated twice. Last EGD 05/2019 showed misplacement of J-tube coiled in stomach. EGD 07/2018 was completely normal w/ no food and minimal fluid and widely patent pylorus. Biopsies negative for celiac and H. pylori. Colonoscopy 09/26/18 (for abnormal MRE suspicious for mild pancolitis) revealed no evidence of colitis and two 2-4mm adenomatous polyps in ascendign colon. GES normal in 08/2018, then abnormal in 08/2019 (below). MRCP 08/2018 w/ hepatic adenoma, normal sized liver, mild hepatic steatosis, and likely syrinx at T12. History of Present Illness History of Present Illness 11/24/2019 Patient seen and examined She is still nauseated On IV ProcalAmine Chart reviewed Discussed with RN 11/23/2019 Patient seen and examined She still complains of nausea vomiting Chart reviewed Discussed with RN Vitals/I&O Vitals/I&O: Vital Signs Date Time Temp Pulse Resp B/P (MAP) Pulse Ox O2 Delivery O2 Flow Rate FiO2 11/24/19 12:05 Room Air 11/24/19 07:59 98.0 86 16 105/62 (76) 99 98.0 I & O 11/23/19 11/23/19 11/24/19 15:00 23:00 07:00 Intake Total 0 ml 200 ml 200 ml Balance 0 ml 200 ml 200 ml Physical Exam General: Alert, Oriented X3, Cooperative, mild distress Abdomen: Normal bowel sounds, Soft, Other (GJ tube in place) Extremities: No clubbing, No cyanosis Skin: No rashes Assessment and Plan Assessmemt and Plan Persistent nausea despite the following : Severe gastroparesis (she has been seen at the [facility] and among other places) Status post GJ tube and she is on continuous pump of feeds at 60 cc an hour at home Cyclic vomiting syndrome GJ tube Severe gastroparesis Cyclic vomiting syndrome G-tube (x 20), J-tube, GERD, hypertension, gastroparesis, cyclic vomiting, cholecystectomy, tonsillectomy. 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 Many GJ tubes - issues ww/ misplacement in the past and re-positioning w/ IR, though most recently conversion of gastrojejunostomy tube to gastrostomy tube and placement of jejunostomy tube by dr. Santana in 08/2019. H/o H. pylori treated twice. Last EGD 05/2019 showed misplacement of J-tube coiled in stomach. EGD 07/2018 was completely normal w/ no food and minimal fluid and widely patent pylorus. Biopsies negative for celiac and H. pylori. Colonoscopy 09/26/18 (for abnormal MRE suspicious for mild pancolitis) revealed no evidence of colitis and two 2-4mm adenomatous polyps in ascendign colon. GES normal in 08/2018, then abnormal in 08/2019 (below). MRCP 08/2018 w/ hepatic adenoma, normal sized liver, mild hepatic steatosis, and likely syrinx at T12. Plan Continue PPN Trend labs Home meds DVT prophylaxis Full code Await surgical input Appreciate GI input ? Would she be a candidate for a gastric nerve stimulator device? Comment Review of Relevant I have reviewed the following items lalo (where applicable) has been applied. Justicifation of Admission Dx: Justifications for Admission: Justification of Admission Dx: LALITHA Martini III DO Nov 24, 2019 12:42
--- NOTE | 2019-11-24 13:36 | RAD ---
Examination: BRAIN W/O CONTRAST History: Reason: Vertigo / Spl. Instructions: / History: Comparison/Correlation: None Findings: Multiplanar, multisequence images of the brain were obtained. Ventricles are normal size. No restricted diffusion to suggest acute infarct or other suspicious process. No mass effect or midline shift. Few high signal intensity foci involving the basal ganglia bilaterally are present likely representing perivascular spaces in measure up to 0.35 cm in maximum diameter. Naik-white matter differentiation is normal. Flow voids are seen within the visualized arterial vasculature and dural sinuses. Globes and optic nerves are unremarkable. Impression: Normal MRI of the brain without contrast. Electronically signed by: Frankie Can MD (11/24/2019 1:34 PM) [id number]
[2019-11-24] MEDS: NYSTATIN 100,000 UNITS/ML 5 ML ORAL.SUSP. SWSW SCH ×3 (14:18→21:01)
[2019-11-24 15:59] VITALS: BP 116/68
--- NOTE | 2019-11-24 18:13 | PDOC ---
PROGRESS NOTES Plan This patient is 19-year-old woman with past medical history of multiple medical problems history of migraine headaches hypertension and gastroesophageal reflux disease PEG tube, cholecystectomy presented with complaint of nausea or vomiting not feeling well for the last few days. Patient also has history of G-tube. Patient denies any worsening of headache difficulty speaking tingling numbness on face or any focal extremity weakness. Patient is getting further GI workup with severe gastroparesis, will get MRI of brain to evaluate for any acute intracranial etiology. On J tube feedings. P.m. nausea medication. Continue medical management. Plan discussed with patient at length MRI of brain was negative for acute intracranial etiology no evidence of acute hemorrhage or mass. Subjective Complaint of nausea and denies any complaint of headache chest pain shortness of breath dizziness Objective Vital Signs Date Time Temp Pulse Resp B/P (MAP) Pulse Ox O2 Delivery O2 Flow Rate FiO2 11/24/19 17:13 Room Air 11/24/19 15:59 98.2 96 16 116/68 (84) 95 98.2 Intake and Output 11/24/19 07:00 Intake Total 400 ml Balance 400 ml Intake Oral 400 ml # Voids 4 PHYSICAL EXAM General no acute distress. HEENT: Normocephalic and atraumatic. NECK: Supple without bruit Respiratory: Clear to auscultation bilaterally Heart: Regular rate and rhythm, S1S2 normal NEUROLOGIC: Mental status Alert oriented. Cranial nerve equally reactive pupils, and intact extraocular movements. No facial asymmetry. Palate elevates and tongue protrudes in midline. Reflexes are 1-2 with flexor plantar responses. Coordination no dysmetria Strength able to move all exts equally. Sensory exam is intact for light touch and pinprick. Gait in bed. Review of Relevant I have reviewed the following items lalo (where applicable) has been applied. Labs Microbiology 11/21/19 Urine Culture - Final, Complete Medications Current Medications Sodium Chloride 1,000 ml @ 1,000 mls/hr 1X ONCE IV Last administered on 11/21/19at 21:06; Start 11/21/19 at 21:00; Stop 11/21/19 at 21:59; Status DC Famotidine (Pepcid Vial) 20 mg 1X ONCE IVP Last administered on 11/21/19at 21:08; Start 11/21/19 at 21:00; Stop 11/21/19 at 21:01; Status DC Morphine Sulfate (Morphine Sulfate) 2 mg 1X ONCE IV Last administered on 11/21/19at 21:09; Start 11/21/19 at 21:00; Stop 11/21/19 at 21:01; Status DC Prochlorperazine Edisylate (Compazine) 10 mg 1X ONCE IV Last administered on 11/21/19at 21:08; Start 11/21/19 at 21:00; Stop 11/21/19 at 21:01; Status DC Ondansetron HCl (Zofran) 4 mg PRN Q8HRS PRN IV NAUSEA/VOMITING 1ST CHOICE Last administered on 11/22/19 16:26; Start 11/21/19 at 23:00; Stop 11/22/19 at 22:59; Status DC Morphine Sulfate (Morphine Sulfate) 2 mg 1X ONCE IV Last administered on 11/21/19at 23:28; Start 11/21/19 at 23:45; Stop 11/21/19 at 23:46; Status DC Morphine Sulfate (Morphine Sulfate) 2 mg PRN Q2HR PRN IV SEVERE PAIN 7-10 Last administered on 11/22/19at 12:11; Start 11/22/19 at 01:45; Stop 11/22/19 at 13:25; Status DC Pantoprazole Sodium (PROTONIX VIAL for IV PUSH) 40 mg BIDAC IVP Last administered on 11/24/19at 16:42; Start 11/22/19 at 12:00 Bisacodyl (Dulcolax Supp) 10 mg 1X ONCE VA Last administered on 11/22/19at 12:11; Start 11/22/19 at 12:00; Stop 11/22/19 at 12:01; Status DC Dicyclomine HCl (Bentyl) 10 mg PRN QID PRN PO GI SYMPTOMS; Start 11/22/19 at 13:30 Methylnaltrexone [place] (Relistor) 12 mg 1X ONCE SQ Last administered on 11/22/19at 14:27; Start 11/22/19 at 14:00; Stop 11/22/19 at 14:01; Status DC Metoclopramide HCl (Reglan Vial) 10 mg PRN Q6HRS PRN IVP NAUSEA/VOMITING 3RD CHOICE Last administered on 11/24/19at 16:42; Start 11/22/19 at 15:30 Morphine Sulfate (Morphine Sulfate) 2 mg PRN Q2HR PRN IV PAIN Last administered on 11/24/19 16:43; Start 11/22/19 at 17:00 Sodium Chloride 1,000 ml @ 75 mls/hr [id number] IV Last administered on 11/22/19 19:53; Start 11/22/19 at 20:00; Stop 11/22/19 at 20:11; Status DC Amino Acids/ Glycerin/ Electrolytes 1,000 ml @ 75 mls/hr [id number] IV Last administered on 11/24/19 16:02; Start 11/22/19 at 21:00 Ondansetron HCl (Zofran) 4 mg PRN Q6HRS PRN IVP NAUSEA/VOMITING 1ST CHOICE Last administered on 11/24/19 12:05; Start 11/22/19 at 23:30 Prochlorperazine Edisylate (Compazine) 10 mg PRN Q6HRS PRN IV NAUSEA/VOMITING 2ND CHOICE Last administered on 11/24/19at 14:18; Start 11/22/19 at 23:30 Nystatin (Nystatin Oral Susp) 5 ml [id number] Last administered on 11/24/19 16:42; Start 11/24/19 at 13:00 Active Scripts Active Lactated Ringers (Ringers Solution,Lactated) 1,000 Ml Iv.soln 1,000 Ml IV DAILY Keflex (Cephalexin) 500 Mg Capsule 1 Cap PO TID 4 Days Miralax (Polyethylene Glycol 3350) 17 Gm Powd.pack 1 Packet PO DAILY 15 Days dissolve in water Hydrocodone-Apap 7.5-325/15 Soln (Hydrocodone Bit/Acetaminophen) 15 Ml Solution 15 Ml JT PRN Q6HRS PRN Reported Advair Hfa 230-21 Mcg Inhaler (Fluticasone/Salmeterol) 12 Gm Hfa.aer.ad 1 Inh IH BID Buspirone Hcl 10 Mg Tablet 0.5 Tab PO BID Reglan (Metoclopramide Hcl) 10 Mg Tablet 10 Mg PO QIDACHS Zelnorm (Tegaserod Hydrogen Maleate) 6 Mg Tablet 6 Mg GT BID Amitriptyline Hcl 75 Mg Tablet 75 Mg PO QHS Dicyclomine Hcl 20 Mg Tablet 20 Mg GT PRN QID PRN Stool Softener (Docusate Sodium) 50 Mg Capsule 50 Mg PO PRN HS Olopatadine HCl 5 Ml Drops 0.1 % OP PRN DAILY PRN Promethazine Hcl 12.5 Mg Tablet 25 Mg GT Q6H PRN Trazodone Hcl 50 Mg Tablet 50 Mg GT HS Maxalt (Rizatriptan Benzoate) 10 Mg Tablet 5 Mg GT PRN DAILY PRN Valproic Acid (Valproate Sodium) 250 Mg/5 Ml Solution 15 Ml PO BID Coq-10 (Ubidecarenone) 100 Mg Capsule 200 Mg GT DAILY Vitamin D3 (Cholecalciferol (Vitamin D3)) 4,000 Unit Capsule 2,000 Unit PO HS Xyzal (Levocetirizine Dihydrochloride) 5 Mg Tablet 5 Mg GT HS Proair Hfa (Albuterol Sulfate) 8.5 Gm Hfa.aer.ad 2 Puff IH PRN Q4-6HRS PRN 21 Days Ipratropium [place] 30 Ml [place] 1 [place] NS DAILY Duoneb 0.5-3(2.5) Mg/3 Ml (Albuterol/Ipratropium) 3 Ml Ampul.neb 3 Ml NEB PRN QID PRN Protonix (Pantoprazole Sodium) 20 Mg Tablet.dr 40 Mg GT HS Montelukast Sodium Tablet (Montelukast Sodium) 10 Mg Tablet 10 Mg GT DAILY PRN Magnesium Oxide 250 Mg Tablet 1 Tab PO DAILY 30 Days Multi Vitamin Daily (Multivitamin) 1 Each Tablet 1 Each GT DAILY Metoprolol Tartrate 50 Mg Tablet 50 Mg GT BID Vitals/I & O Vital Sign - Last 24 Hours 11/23/19 11/23/19 11/23/19 11/23/19 19:40 19:40 20:49 21:19 Temp 98.0 98.0 Pulse 89 Resp 16 B/P (MAP) 108/69 (82) Pulse Ox 97 O2 Delivery Room Air Room Air Room Air Room Air 11/23/19 11/24/19 11/24/19 11/24/19 23:00 01:33 03:00 03:13 Temp 98.1 98.2 98.1 98.2 Pulse 90 85 Resp 18 16 B/P (MAP) 93/62 (72) 104/67 (79) Pulse Ox 95 97 O2 Delivery Room Air Room Air Room Air 11/24/19 11/24/19 11/24/19 11/24/19 03:57 04:48 06:12 07:59 Temp 98.0 98.0 Pulse 86 Resp 16 B/P (MAP) 105/62 (76) Pulse Ox 99 O2 Delivery Room Air Room Air Room Air Room Air 11/24/19 11/24/19 11/24/19 11/24/19 08:00 08:02 08:32 11:59 Temp 98.0 98.0 Pulse 98 Resp 16 B/P (MAP) 114/63 (80) Pulse Ox 97 O2 Delivery Room Air Room Air Room Air Room Air 11/24/19 11/24/19 11/24/19 11/24/19 12:05 12:35 14:19 14:49 O2 Delivery Room Air Room Air Room Air Room Air 11/24/19 11/24/19 11/24/19 15:59 16:43 17:13 Temp 98.2 98.2 Pulse 96 Resp 16 B/P (MAP) 116/68 (84) Pulse Ox 95 O2 Delivery Room Air Room Air Room Air Intake and Output 11/23/19 11/23/19 11/24/19 15:00 23:00 07:00 Intake Total 0 ml 200 ml 200 ml Balance 0 ml 200 ml 200 ml Justicifation of Admission Dx: Justifications for Admission: Justification of Admission Dx: PRUDENCIO Kamara MD Nov 24, 2019 18:13
[2019-11-24 19:30] VITALS: BP 104/75
[2019-11-24 23:15] VITALS: BP 95/65
[2019-11-25 03:05] VITALS: BP 99/68
[2019-11-25] MEDS: MORPHINE SULFATE 2 MG/ML VIAL. IV PRN ×7 (03:42→22:15)
[2019-11-25] MEDS: METOCLOPRAMIDE HCL 10 MG/2 ML VIAL. IVP PRN ×2 (03:43→15:42)
[2019-11-25] MEDS: PANTOPRAZOLE IV PUSH 40 MG VIAL. IVP SCH ×2 (05:59→18:35)
[2019-11-25] MEDS: AMINO AC 3%/ELECTROLYTE/GLYCER 1,000 ML IV SCH ×2 (05:59→15:40)
[2019-11-25 07:00] VITALS: BP 105/66
[2019-11-25] MEDS: NYSTATIN 100,000 UNITS/ML 5 ML ORAL.SUSP. SWSW SCH ×4 (08:48→21:26)
[2019-11-25] MEDS: PROCHLORPERAZINE 10 MG/2 ML VIAL. IV PRN ×2 (08:48→18:36)
[2019-11-25 11:00] VITALS: BP 118/69
--- NOTE | 2019-11-25 11:12 | PDOC ---
PROGRESS NOTES Plan This patient is 19-year-old woman with past medical history of multiple medical problems history of migraine headaches hypertension and gastroesophageal reflux disease PEG tube, cholecystectomy presented with complaint of nausea or vomiting not feeling well for the last few days. Patient also has history of G-tube. Patient denies any worsening of headache difficulty speaking tingling numbness on face or any focal extremity weakness. Patient is getting further GI workup with severe gastroparesis, will get MRI of brain to evaluate for any acute intracranial etiology. On J tube feedings. on nausea medication. Neuro exam stable. Continue medical management. Plan discussed with patient at length MRI of brain was negative for acute intracranial etiology no evidence of acute hemorrhage or mass. Changes noted for chronic small vessel ischemic disease Subjective Family at bedside she denies any complaint of headache chest pain shortness of breath. Objective Vital Signs Date Time Temp Pulse Resp B/P (MAP) Pulse Ox O2 Delivery O2 Flow Rate FiO2 11/25/19 09:18 Room Air 11/25/19 07:00 97.7 90 17 105/66 (79) 95 97.7 Intake and Output 11/25/19 07:00 Intake Total 0 ml Balance 0 ml Intake Oral 0 ml PHYSICAL EXAM General no acute distress. HEENT: Normocephalic and atraumatic. NECK: Supple without bruit Respiratory: Clear to auscultation bilaterally Heart: Regular rate and rhythm, S1S2 normal NEUROLOGIC: Mental status Alert aphasia Cranial nerve equally reactive pupils, She does not participate + facial asymmetry. Palate elevates and tongue protrudes in midline. Reflexes are 1-2 with flexor plantar responses. Coordination does not participate Strength able to move left side more than right side Sensory exam is intact for light touch and pinprick more on left. Gait in bed. Review of Relevant I have reviewed the following items lalo (where applicable) has been applied. Labs Microbiology 11/21/19 Urine Culture - Final, Complete Medications Current Medications Sodium Chloride 1,000 ml @ 1,000 mls/hr 1X ONCE IV Last administered on 11/21/19at 21:06; Start 11/21/19 at 21:00; Stop 11/21/19 at 21:59; Status DC Famotidine (Pepcid Vial) 20 mg 1X ONCE IVP Last administered on 11/21/19at 21:08; Start 11/21/19 at 21:00; Stop 11/21/19 at 21:01; Status DC Morphine Sulfate (Morphine Sulfate) 2 mg 1X ONCE IV Last administered on 11/21/19at 21:09; Start 11/21/19 at 21:00; Stop 11/21/19 at 21:01; Status DC Prochlorperazine Edisylate (Compazine) 10 mg 1X ONCE IV Last administered on 11/21/19at 21:08; Start 11/21/19 at 21:00; Stop 11/21/19 at 21:01; Status DC Ondansetron HCl (Zofran) 4 mg PRN Q8HRS PRN IV NAUSEA/VOMITING 1ST CHOICE Last administered on 11/22/19at 16:26; Start 11/21/19 at 23:00; Stop 11/22/19 at 22:59; Status DC Morphine Sulfate (Morphine Sulfate) 2 mg 1X ONCE IV Last administered on 11/21/19at 23:28; Start 11/21/19 at 23:45; Stop 11/21/19 at 23:46; Status DC Morphine Sulfate (Morphine Sulfate) 2 mg PRN Q2HR PRN IV SEVERE PAIN 7-10 Last administered on 11/22/19at 12:11; Start 11/22/19 at 01:45; Stop 11/22/19 at 13:25; Status DC Pantoprazole Sodium (PROTONIX VIAL for IV PUSH) 40 mg BIDAC IVP Last administered on 11/25/19at 05:59; Start 11/22/19 at 12:00 Bisacodyl (Dulcolax Supp) 10 mg 1X ONCE SD Last administered on 11/22/19at 12:11; Start 11/22/19 at 12:00; Stop 11/22/19 at 12:01; Status DC Dicyclomine HCl (Bentyl) 10 mg PRN QID PRN PO GI SYMPTOMS; Start 11/22/19 at 13:30 Methylnaltrexone [place] (Relistor) 12 mg 1X ONCE SQ Last administered on 11/22/19at 14:27; Start 11/22/19 at 14:00; Stop 11/22/19 at 14:01; Status DC Metoclopramide HCl (Reglan Vial) 10 mg PRN Q6HRS PRN IVP NAUSEA/VOMITING 3RD CHOICE Last administered on 11/25/19at 03:43; Start 11/22/19 at 15:30 Morphine Sulfate (Morphine Sulfate) 2 mg PRN Q2HR PRN IV PAIN Last administered on 11/25/19 08:48; Start 11/22/19 at 17:00 Sodium Chloride 1,000 ml @ 75 mls/hr [id number] IV Last administered on 11/22/19at 19:53; Start 11/22/19 at 20:00; Stop 11/22/19 at 20:11; Status DC Amino Acids/ Glycerin/ Electrolytes 1,000 ml @ 75 mls/hr [id number] IV Last administered on 11/25/19 05:59; Start 11/22/19 at 21:00 Ondansetron HCl (Zofran) 4 mg PRN Q6HRS PRN IVP NAUSEA/VOMITING 1ST CHOICE Last administered on 11/24/19 19:28; Start 11/22/19 at 23:30 Prochlorperazine Edisylate (Compazine) 10 mg PRN Q6HRS PRN IV NAUSEA/VOMITING 2ND CHOICE Last administered on 11/25/19at 08:48; Start 11/22/19 at 23:30 Nystatin (Nystatin Oral Susp) 5 ml [id number] Last administered on 11/25/19 08:48; Start 11/24/19 at 13:00 Active Scripts Active Lactated Ringers (Ringers Solution,Lactated) 1,000 Ml Iv.soln 1,000 Ml IV DAILY Keflex (Cephalexin) 500 Mg Capsule 1 Cap PO TID 4 Days Miralax (Polyethylene Glycol 3350) 17 Gm Powd.pack 1 Packet PO DAILY 15 Days dissolve in water Hydrocodone-Apap 7.5-325/15 Soln (Hydrocodone Bit/Acetaminophen) 15 Ml Solution 15 Ml JT PRN Q6HRS PRN Reported Advair Hfa 230-21 Mcg Inhaler (Fluticasone/Salmeterol) 12 Gm Hfa.aer.ad 1 Inh IH BID Buspirone Hcl 10 Mg Tablet 0.5 Tab PO BID Reglan (Metoclopramide Hcl) 10 Mg Tablet 10 Mg PO QIDACHS Zelnorm (Tegaserod Hydrogen Maleate) 6 Mg Tablet 6 Mg GT BID Amitriptyline Hcl 75 Mg Tablet 75 Mg PO QHS Dicyclomine Hcl 20 Mg Tablet 20 Mg GT PRN QID PRN Stool Softener (Docusate Sodium) 50 Mg Capsule 50 Mg PO PRN HS Olopatadine HCl 5 Ml Drops 0.1 % OP PRN DAILY PRN Promethazine Hcl 12.5 Mg Tablet 25 Mg GT Q6H PRN Trazodone Hcl 50 Mg Tablet 50 Mg GT HS Maxalt (Rizatriptan Benzoate) 10 Mg Tablet 5 Mg GT PRN DAILY PRN Valproic Acid (Valproate Sodium) 250 Mg/5 Ml Solution 15 Ml PO BID Coq-10 (Ubidecarenone) 100 Mg Capsule 200 Mg GT DAILY Vitamin D3 (Cholecalciferol (Vitamin D3)) 4,000 Unit Capsule 2,000 Unit PO HS Xyzal (Levocetirizine Dihydrochloride) 5 Mg Tablet 5 Mg GT HS Proair Hfa (Albuterol Sulfate) 8.5 Gm Hfa.aer.ad 2 Puff IH PRN Q4-6HRS PRN 21 Days Ipratropium [place] 30 Ml [place] 1 [place] NS DAILY Duoneb 0.5-3(2.5) Mg/3 Ml (Albuterol/Ipratropium) 3 Ml Ampul.neb 3 Ml NEB PRN QID PRN Protonix (Pantoprazole Sodium) 20 Mg Tablet.dr 40 Mg GT HS Montelukast Sodium Tablet (Montelukast Sodium) 10 Mg Tablet 10 Mg GT DAILY PRN Magnesium Oxide 250 Mg Tablet 1 Tab PO DAILY 30 Days Multi Vitamin Daily (Multivitamin) 1 Each Tablet 1 Each GT DAILY Metoprolol Tartrate 50 Mg Tablet 50 Mg GT BID Vitals/I & O Vital Sign - Last 24 Hours 11/24/19 11/24/19 11/24/19 11/24/19 11:59 12:05 12:35 14:19 Temp 98.0 98.0 Pulse 98 Resp 16 B/P (MAP) 114/63 (80) Pulse Ox 97 O2 Delivery Room Air Room Air Room Air Room Air 11/24/19 11/24/19 11/24/19 11/24/19 14:49 15:59 16:43 17:13 Temp 98.2 98.2 Pulse 96 Resp 16 B/P (MAP) 116/68 (84) Pulse Ox 95 O2 Delivery Room Air Room Air Room Air Room Air 11/24/19 11/24/19 11/24/1911/23/20 19:29 19:30 19:40 21:01 Temp 98.2 98.2 Pulse 95 Resp 17 B/P (MAP) 104/75 (85) Pulse Ox 95 O2 Delivery Room Air Room Air Room Air Room Air 11/24/19 11/24/19 11/24/19 11/25/19 21:43 22:46 23:15 03:05 Temp 98.0 98.1 98.0 98.1 Pulse 98 89 Resp 17 17 B/P (MAP) 95/65 (75) 99/68 (78) Pulse Ox 95 94 O2 Delivery Room Air Room Air Room Air Room Air 11/25/19 11/25/19 11/25/19 11/25/19 03:42 04:12 05:59 06:29 O2 Delivery Room Air Room Air Room Air Room Air 11/25/19 11/25/19 11/25/19 07:00 08:00 09:18 Temp 97.7 97.7 Pulse 90 Resp 17 B/P (MAP) 105/66 (79) Pulse Ox 95 O2 Delivery Room Air Room Air Room Air Intake and Output 11/24/19 11/24/19 11/25/19 15:00 23:00 07:00 Intake Total 0 ml 0 ml Balance 0 ml 0 ml Justicifation of Admission Dx: Justifications for Admission: Justification of Admission Dx: PRUDENCIO Kamara MD Nov 25, 2019 11:12
[2019-11-25] MEDS: ONDANSETRON PF 4 MG/2 ML VIAL. IVP PRN ×2 (12:42→21:49)
--- NOTE | 2019-11-25 13:56 | PDOC ---
[employer] PROGRESS NOTE Chief Complaint Chief Complaint Persistent nausea despite the following : Severe gastroparesis (she has been seen at the [facility] and among other places) Status post GJ tube and she is on continuous pump of feeds at 60 cc an hour at home Cyclic vomiting syndrome GJ tube Severe gastroparesis Cyclic vomiting syndrome G-tube (x 20), J-tube, GERD, hypertension, gastroparesis, cyclic vomiting, cholecystectomy, tonsillectomy. Reviewed office notes: H/o cyclic vomiting syndrome vs rumination syndrome (confirmed at [facility]) w/ chronic n/v, IBS, GERD, pelvic floor dyssynergia (s/p therapy), s/p cholecystectomy. Many GJ tubes - issues ww/ misplacement in the past and re-positioning w/ IR, though most recently conversion of gastrojejunostomy tube to gastrostomy tube and placement of jejunostomy tube by dr. Santana in 08/2019. H/o H. pylori treated twice. Last EGD 05/2019 showed misplacement of J-tube coiled in stomach. EGD 07/2018 was completely normal w/ no food and minimal fluid and widely patent pylorus. Biopsies negative for celiac and H. pylori. Colonoscopy 09/26/18 (for abnormal MRE suspicious for mild pancolitis) revealed no evidence of colitis and two 2-4mm adenomatous polyps in ascendign colon. GES normal in 08/2018, then abnormal in 08/2019 (below). MRCP 08/2018 w/ hepatic adenoma, normal sized liver, mild hepatic steatosis, and likely syrinx at T12. History of Present Illness History of Present Illness 11/25/2019 Patient seen and examined Chart reviewed Discussed with RN 11/24/2019 Patient seen and examined She is still nauseated On IV ProcalAmine Chart reviewed Discussed with RN 11/23/2019 Patient seen and examined She still complains of nausea vomiting Chart reviewed Discussed with RN Vitals/I&O Vitals/I&O: Vital Signs Date Time Temp Pulse Resp B/P (MAP) Pulse Ox O2 Delivery O2 Flow Rate FiO2 11/25/19 13:13 Room Air 11/25/19 11:00 98.0 78 17 118/69 (85) 98 98.0 I & O 11/24/19 11/24/19 11/25/19 15:00 23:00 07:00 Intake Total 0 ml 0 ml Balance 0 ml 0 ml Physical Exam General: Alert, Oriented X3, Cooperative, mild distress Abdomen: Normal bowel sounds, Soft, Other (GJ tube in place) Extremities: No clubbing, No cyanosis Skin: No rashes Assessment and Plan Assessmemt and Plan Persistent nausea despite the following : Severe gastroparesis (she has been seen at the [facility] and among other places) Status post GJ tube and she is on continuous pump of feeds at 60 cc an hour at home Cyclic vomiting syndrome GJ tube Severe gastroparesis Cyclic vomiting syndrome G-tube (x 20), J-tube, GERD, hypertension, gastroparesis, cyclic vomiting, cholecystectomy, tonsillectomy. Reviewed office notes: H/o cyclic vomiting syndrome vs rumination syndrome (confirmed at [facility]) w/ chronic n/v, IBS, GERD, pelvic floor dyssynergia (s/p therapy), s/p cholecystectomy. Many GJ tubes - issues ww/ misplacement in the past and re-positioning w/ IR, though most recently conversion of gastrojejunostomy tube to gastrostomy tube and placement of jejunostomy tube by dr. Santana in 08/2019. H/o H. pylori treated twice. Last EGD 05/2019 showed misplacement of J-tube coiled in stomach. EGD 07/2018 was completely normal w/ no food and minimal fluid and widely patent pylorus. Biopsies negative for celiac and H. pylori. Colonoscopy 09/26/18 (for abnormal MRE suspicious for mild pancolitis) revealed no evidence of colitis and two 2-4mm adenomatous polyps in ascendign colon. GES normal in 08/2018, then abnormal in 08/2019 (below). MRCP 08/2018 w/ hepatic adenoma, normal sized liver, mild hepatic steatosis, and likely syrinx at T12. Plan Continue PPN Trend labs Home meds DVT prophylaxis Full code Await surgical input Appreciate GI input ? Would she be a candidate for a gastric nerve stimulator device? Comment Review of Relevant I have reviewed the following items lalo (where applicable) has been applied. Justicifation of Admission Dx: Justifications for Admission: Justification of Admission Dx: LALITHA Martini III DO Nov 25, 2019 13:55
[2019-11-25 15:00] VITALS: BP 116/68
[2019-11-25 19:00] VITALS: BP 129/77
[2019-11-25 23:03] VITALS: BP 109/74
[2019-11-26] VITALS (7 sets, daily range): BP systolic 90–128; BP diastolic 49–68
[2019-11-26] MEDS: MORPHINE SULFATE 2 MG/ML VIAL. IV PRN ×5 (03:09→22:17)
[2019-11-26] MEDS: PROCHLORPERAZINE 10 MG/2 ML VIAL. IV PRN ×3 (03:09→19:18)
[2019-11-26] MEDS: AMINO AC 3%/ELECTROLYTE/GLYCER 1,000 ML IV SCH ×2 (05:00→19:18)
[2019-11-26] MEDS: ONDANSETRON PF 4 MG/2 ML VIAL. IVP PRN ×2 (07:47→15:41)
[2019-11-26] MEDS: PANTOPRAZOLE IV PUSH 40 MG VIAL. IVP SCH ×2 (07:47→16:58)
[2019-11-26] MEDS: NYSTATIN 100,000 UNITS/ML 5 ML ORAL.SUSP. SWSW SCH ×4 (07:57→22:24)
--- NOTE | 2019-11-26 08:40 | PDOC ---
PROGRESS NOTES Chief Complaint Chief Complaint Persistent nausea despite the following : Severe gastroparesis (she has been seen at the [facility] and among other places) Status post GJ tube and she is on continuous pump of feeds at 60 cc an hour at home Cyclic vomiting syndrome GJ tube Severe gastroparesis Cyclic vomiting syndrome G-tube (x 20), J-tube, GERD, hypertension, gastroparesis, cyclic vomiting, cholecystectomy, tonsillectomy. 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 Many GJ tubes - issues ww/ misplacement in the past and re-positioning w/ IR, though most recently conversion of gastrojejunostomy tube to gastrostomy tube and placement of jejunostomy tube by dr. Santana in 08/2019. H/o H. pylori treated twice. Last EGD 05/2019 showed misplacement of J-tube coiled in stomach. EGD 07/2018 was completely normal w/ no food and minimal fluid and widely patent pylorus. Biopsies negative for celiac and H. pylori. Colonoscopy 09/26/18 (for abnormal MRE suspicious for mild pancolitis) revealed no evidence of colitis and two 2-4mm adenomatous polyps in ascendign colon. GES normal in 08/2018, then abnormal in 08/2019 (below). MRCP 08/2018 w/ hepatic adenoma, normal sized liver, mild hepatic steatosis, and likely syrinx at T12. History of Present Illness History of Present Illness Ms Mustafa is a 19 yo F w/ PMHx IBS, GERD, cyclic vomiting syndrome s/p multiple GJ tubes - issues ww/ misplacement in the past and re-positioning w/ IR, though most recently conversion of gastrojejunostomy tube to gastrostomy tube and placement of jejunostomy tube by dr. Santana in 08/2019 who is admitted for worsening nausea and vomiting as well as dizziness and room spinning when standing. Admitted with GI, general surgery, and neurology consultation. Abdominal XR shows constipation with probable fecal impaction. Afebrile. She is still complaining of nausea to me. She is requesting a port be placed and is also requesting a pyloroplasty with general surgery. We did discuss the potential of domperidone which is been discussed with her outpatient as well. Also we discussed digital disimpaction, initiated prefers this be done by nurse. 11/25/2019 Patient seen and examined Chart reviewed Discussed with RN 11/24/2019 Patient seen and examined She is still nauseated On IV ProcalAmine Chart reviewed Discussed with RN 11/23/2019 Patient seen and examined She still complains of nausea vomiting Chart reviewed Discussed with RN Vitals Vitals Vital Signs Date Time Temp Pulse Resp B/P (MAP) Pulse Ox O2 Delivery O2 Flow Rate FiO2 11/26/19 08:23 16 Room Air 11/26/19 07:00 98.1 102 92/52 (65) 99 98.1 Physical Exam General: Alert, Oriented X3, Cooperative, mild distress Abdomen: Normal bowel sounds, Soft, Other (GJ tube in place) Extremities: No clubbing, No cyanosis Skin: No rashes Comment Review of Relevant I have reviewed the following items lalo (where applicable) has been applied. Labs Microbiology 11/21/19 Urine Culture - Final, Complete Medications Current Medications Sodium Chloride 1,000 ml @ 1,000 mls/hr 1X ONCE IV Last administered on 11/21/19at 21:06; Start 11/21/19 at 21:00; Stop 11/21/19 at 21:59; Status DC Famotidine (Pepcid Vial) 20 mg 1X ONCE IVP Last administered on 11/21/19at 21:08; Start 11/21/19 at 21:00; Stop 11/21/19 at 21:01; Status DC Morphine Sulfate (Morphine Sulfate) 2 mg 1X ONCE IV Last administered on 11/21/19at 21:09; Start 11/21/19 at 21:00; Stop 11/21/19 at 21:01; Status DC Prochlorperazine Edisylate (Compazine) 10 mg 1X ONCE IV Last administered on 11/21/19at 21:08; Start 11/21/19 at 21:00; Stop 11/21/19 at 21:01; Status DC Ondansetron HCl (Zofran) 4 mg PRN Q8HRS PRN IV NAUSEA/VOMITING 1ST CHOICE Last administered on 11/22/19at 16:26; Start 11/21/19 at 23:00; Stop 11/22/19 at 22:59; Status DC Morphine Sulfate (Morphine Sulfate) 2 mg 1X ONCE IV Last administered on 11/21/19at 23:28; Start 11/21/19 at 23:45; Stop 11/21/19 at 23:46; Status DC Morphine Sulfate (Morphine Sulfate) 2 mg PRN Q2HR PRN IV SEVERE PAIN 7-10 Last administered on 11/22/19at 12:11; Start 11/22/19 at 01:45; Stop 11/22/19 at 13:25; Status DC Pantoprazole Sodium (PROTONIX VIAL for IV PUSH) 40 mg BIDAC IVP Last administered on 11/26/19at 07:47; Start 11/22/19 at 12:00 Bisacodyl (Dulcolax Supp) 10 mg 1X ONCE [place] Last administered on 11/22/19 12:11; Start 11/22/19 at 12:00; Stop 11/22/19 at 12:01; Status DC Dicyclomine HCl (Bentyl) 10 mg PRN QID PRN PO GI SYMPTOMS; Start 11/22/19 at 13:30 Methylnaltrexone [place] (Relistor) 12 mg 1X ONCE SQ Last administered on 11/22/19 14:27; Start 11/22/19 at 14:00; Stop 11/22/19 at 14:01; Status DC Metoclopramide HCl (Reglan Vial) 10 mg PRN Q6HRS PRN IVP NAUSEA/VOMITING 3RD CHOICE Last administered on 11/25/19 15:42; Start 11/22/19 at 15:30 Morphine Sulfate (Morphine Sulfate) 2 mg PRN Q2HR PRN IV PAIN Last administered on 11/26/19 07:51; Start 11/22/19 at 17:00 Sodium Chloride 1,000 ml @ 75 mls/hr [id number] IV Last administered on 11/22/19 19:53; Start 11/22/19 at 20:00; Stop 11/22/19 at 20:11; Status DC Amino Acids/ Glycerin/ Electrolytes 1,000 ml @ 75 mls/hr [id number] IV Last administered on 11/25/19at 05:59; Start 11/22/19 at 21:00 Ondansetron HCl (Zofran) 4 mg PRN Q6HRS PRN IVP NAUSEA/VOMITING 1ST CHOICE Last administered on 11/26/19 07:47; Start 11/22/19 at 23:30 Prochlorperazine Edisylate (Compazine) 10 mg PRN Q6HRS PRN IV NAUSEA/VOMITING 2ND CHOICE Last administered on 11/26/19at 03:09; Start 11/22/19 at 23:30 Nystatin (Nystatin Oral Susp) 5 ml [id number] Last administered on 11/26/19at 07:57; Start 11/24/19 at 13:00 Active Scripts Active Lactated Ringers (Ringers Solution,Lactated) 1,000 Ml Iv.soln 1,000 Ml IV DAILY Keflex (Cephalexin) 500 Mg Capsule 1 Cap PO TID 4 Days Miralax (Polyethylene Glycol 3350) 17 Gm Powd.pack 1 Packet PO DAILY 15 Days dissolve in water Hydrocodone-Apap 7.5-325/15 Soln (Hydrocodone Bit/Acetaminophen) 15 Ml Solution 15 Ml JT PRN Q6HRS PRN Reported Advair Hfa 230-21 Mcg Inhaler (Fluticasone/Salmeterol) 12 Gm Hfa.aer.ad 1 Inh IH BID Buspirone Hcl 10 Mg Tablet 0.5 Tab PO BID Reglan (Metoclopramide Hcl) 10 Mg Tablet 10 Mg PO QIDACHS Zelnorm (Tegaserod Hydrogen Maleate) 6 Mg Tablet 6 Mg GT BID Amitriptyline Hcl 75 Mg Tablet 75 Mg PO QHS Dicyclomine Hcl 20 Mg Tablet 20 Mg GT PRN QID PRN Stool Softener (Docusate Sodium) 50 Mg Capsule 50 Mg PO PRN HS Olopatadine HCl 5 Ml Drops 0.1 % OP PRN DAILY PRN Promethazine Hcl 12.5 Mg Tablet 25 Mg GT Q6H PRN Trazodone Hcl 50 Mg Tablet 50 Mg GT HS Maxalt (Rizatriptan Benzoate) 10 Mg Tablet 5 Mg GT PRN DAILY PRN Valproic Acid (Valproate Sodium) 250 Mg/5 Ml Solution 15 Ml PO BID Coq-10 (Ubidecarenone) 100 Mg Capsule 200 Mg GT DAILY Vitamin D3 (Cholecalciferol (Vitamin D3)) 4,000 Unit Capsule 2,000 Unit PO HS Xyzal (Levocetirizine Dihydrochloride) 5 Mg Tablet 5 Mg GT HS Proair Hfa (Albuterol Sulfate) 8.5 Gm Hfa.aer.ad 2 Puff IH PRN Q4-6HRS PRN 21 Days Ipratropium [place] 30 Ml [place] 1 Benedict NS DAILY Duoneb 0.5-3(2.5) Mg/3 Ml (Albuterol/Ipratropium) 3 Ml Ampul.neb 3 Ml NEB PRN QID PRN Protonix (Pantoprazole Sodium) 20 Mg Tablet.dr 40 Mg GT HS Montelukast Sodium Tablet (Montelukast Sodium) 10 Mg Tablet 10 Mg GT DAILY PRN Magnesium Oxide 250 Mg Tablet 1 Tab PO DAILY 30 Days Multi Vitamin Daily (Multivitamin) 1 Each Tablet 1 Each GT DAILY Metoprolol Tartrate 50 Mg Tablet 50 Mg GT BID Vitals/I & O Vital Sign - Last 24 Hours 11/25/19 11/25/19 11/25/19 11/25/19 09:18 11:00 12:43 13:13 Temp 98.0 98.0 Pulse 78 Resp 17 B/P (MAP) 118/69 (85) Pulse Ox 98 O2 Delivery Room Air Room Air Room Air Room Air 11/25/19 11/25/19 11/25/19 11/25/19 15:00 15:42 16:12 18:36 Temp 97.9 97.9 Pulse 100 Resp 17 B/P (MAP) 116/68 (84) Pulse Ox 97 O2 Delivery Room Air Room Air Room Air Room Air 11/25/19 11/25/19 11/25/19 11/25/19 19:00 19:06 20:30 22:15 Temp 98.1 98.1 Pulse 119 Resp 18 B/P (MAP) 129/77 (94) Pulse Ox 96 O2 Delivery Room Air Room Air Room Air Room Air 11/25/19 11/25/19 11/26/19 11/26/19 22:45 23:03 03:00 03:09 Temp 97.9 97.7 97.9 97.7 Pulse 103 105 Resp 20 20 B/P (MAP) 109/74 (86) 102/66 (78) Pulse Ox 96 96 O2 Delivery Room Air Room Air Room Air Room Air 11/26/19 11/26/19 11/26/19 11/26/19 04:00 07:00 07:51 08:23 Temp 98.1 98.1 Pulse 102 Resp 18 16 16 B/P (MAP) 92/52 (65) Pulse Ox 99 O2 Delivery Room Air Room Air Room Air Room Air Intake and Output 11/25/19 11/25/19 11/26/19 14:59 22:59 06:59 Intake Total 0 ml 0 ml Balance 0 ml 0 ml Images Abdominal XR - Lung bases unremarkable. No pneumoperitoneum. Post cystectomy clips. Moderate volume of stool within the colon and a prominent volume of stool density of the rectum with a diameter of 9 cm may indicate rectal fecal impaction. No small bowel obstruction evident with no dilated small bowel loops or abnormal air-fluid levels. Mild lumbar scoliosis left abdomen tube likely a percutaneous jejunostomy feeding tube. There is a separate gastrostomy tube as present on the prior CT study from November 19, 2019. IMPRESSION: Constipation with a moderate volume of stool and probable rectal fecal impaction. No small bowel obstruction. Justicifation of Admission Dx: Justifications for Admission: Justification of Admission Dx: No ABIGAIL GARCIA MD Nov 26, 2019 08:40
--- NOTE | 2019-11-26 09:02 | NUR ---
SW following. Discussed with RN, pt getting a tara cath placed today. RN does not anticipate discharge today. SW will continue to follow for discharge planning needs.
--- NOTE | 2019-11-26 09:56 | PDOC ---
PROGRESS NOTES Assessment Migraine headaches, Treated at with Botox injections and she is supposed to start on Aimovig. Brain MRI here negative Nausea and vomiting in gastroesophageal reflux disease and gastroparesis req uiring PEG tube Plan Nothing to add neurologically here, follow up at Subjective Headache 11/29 Objective Vital Signs Date Time Temp Pulse Resp B/P (MAP) Pulse Ox O2 Delivery O2 Flow Rate FiO2 11/26/19 08:23 16 Room Air 11/26/19 07:00 98.1 102 92/52 (65) 99 98.1 Intake and Output 11/26/19 07:00 Intake Total 0 ml Balance 0 ml Intake Oral 0 ml # Voids 1 PHYSICAL EXAM Alert. Oriented to time, place and person. PERRL. EOMI. CN: no focal findings. Muscle tone: normal. Muscle strength: 5/5 DTR: 2+ Plantar reflex: flexor Gait: not examined in bed. Sensory exam: no abnormal findings. No cerebellar signs elicited. Review of Relevant I have reviewed the following items lalo (where applicable) has been applied. Labs Microbiology 11/21/19 Urine Culture - Final, Complete Medications Current Medications Sodium Chloride 1,000 ml @ 1,000 mls/hr 1X ONCE IV Last administered on 11/21/19at 21:06; Start 11/21/19 at 21:00; Stop 11/21/19 at 21:59; Status DC Famotidine (Pepcid Vial) 20 mg 1X ONCE IVP Last administered on 11/21/19at 21:08; Start 11/21/19 at 21:00; Stop 11/21/19 at 21:01; Status DC Morphine Sulfate (Morphine Sulfate) 2 mg 1X ONCE IV Last administered on 11/21/19at 21:09; Start 11/21/19 at 21:00; Stop 11/21/19 at 21:01; Status DC Prochlorperazine Edisylate (Compazine) 10 mg 1X ONCE IV Last administered on 11/21/19at 21:08; Start 11/21/19 at 21:00; Stop 11/21/19 at 21:01; Status DC Ondansetron HCl (Zofran) 4 mg PRN Q8HRS PRN IV NAUSEA/VOMITING 1ST CHOICE Last administered on 11/22/19at 16:26; Start 11/21/19 at 23:00; Stop 11/22/19 at 22:59; Status DC Morphine Sulfate (Morphine Sulfate) 2 mg 1X ONCE IV Last administered on 11/21/19at 23:28; Start 11/21/19 at 23:45; Stop 11/21/19 at 23:46; Status DC Morphine Sulfate (Morphine Sulfate) 2 mg PRN Q2HR PRN IV SEVERE PAIN 7-10 Last administered on 11/22/19at 12:11; Start 11/22/19 at 01:45; Stop 11/22/19 at 13:25; Status DC Pantoprazole Sodium (PROTONIX VIAL for IV PUSH) 40 mg BIDAC IVP Last administered on 11/26/19at 07:47; Start 11/22/19 at 12:00 Bisacodyl (Dulcolax Supp) 10 mg 1X ONCE [place] Last administered on 11/22/19at 12:11; Start 11/22/19 at 12:00; Stop 11/22/19 at 12:01; Status DC Dicyclomine HCl (Bentyl) 10 mg PRN QID PRN PO GI SYMPTOMS; Start 11/22/19 at 13:30 Methylnaltrexone [place] (Relistor) 12 mg 1X ONCE SQ Last administered on 11/22/19at 14:27; Start 11/22/19 at 14:00; Stop 11/22/19 at 14:01; Status DC Metoclopramide HCl (Reglan Vial) 10 mg PRN Q6HRS PRN IVP NAUSEA/VOMITING 3RD CHOICE Last administered on 11/25/19at 15:42; Start 11/22/19 at 15:30 Morphine Sulfate (Morphine Sulfate) 2 mg PRN Q2HR PRN IV PAIN Last administered on 11/26/19at 07:51; Start 11/22/19 at 17:00 Sodium Chloride 1,000 ml @ 75 mls/hr [id number] IV Last administered on 11/22/19at 19:53; Start 11/22/19 at 20:00; Stop 11/22/19 at 20:11; Status DC Amino Acids/ Glycerin/ Electrolytes 1,000 ml @ 75 mls/hr [id number] IV Last administered on 11/25/19at 05:59; Start 11/22/19 at 21:00 Ondansetron HCl (Zofran) 4 mg PRN Q6HRS PRN IVP NAUSEA/VOMITING 1ST CHOICE Last administered on 11/26/19at 07:47; Start 11/22/19 at 23:30 Prochlorperazine Edisylate (Compazine) 10 mg PRN Q6HRS PRN IV NAUSEA/VOMITING 2ND CHOICE Last administered on 11/26/19at 03:09; Start 11/22/19 at 23:30 Nystatin (Nystatin Oral Susp) 5 ml [id number] Last administered on 11/26/19at 07:57; Start 11/24/19 at 13:00 Active Scripts Active Lactated Ringers (Ringers Solution,Lactated) 1,000 Ml Iv.soln 1,000 Ml IV DAILY Keflex (Cephalexin) 500 Mg Capsule 1 Cap PO TID 4 Days Miralax (Polyethylene Glycol 3350) 17 Gm Powd.pack 1 Packet PO DAILY 15 Days dissolve in water Hydrocodone-Apap 7.5-325/15 Soln (Hydrocodone Bit/Acetaminophen) 15 Ml Solution 15 Ml JT PRN Q6HRS PRN Reported Advair Hfa 230-21 Mcg Inhaler (Fluticasone/Salmeterol) 12 Gm Hfa.aer.ad 1 Inh IH BID Buspirone Hcl 10 Mg Tablet 0.5 Tab PO BID Reglan (Metoclopramide Hcl) 10 Mg Tablet 10 Mg PO QIDACHS Zelnorm (Tegaserod Hydrogen Maleate) 6 Mg Tablet 6 Mg GT BID Amitriptyline Hcl 75 Mg Tablet 75 Mg PO QHS Dicyclomine Hcl 20 Mg Tablet 20 Mg GT PRN QID PRN Stool Softener (Docusate Sodium) 50 Mg Capsule 50 Mg PO PRN HS Olopatadine HCl 5 Ml Drops 0.1 % OP PRN DAILY PRN Promethazine Hcl 12.5 Mg Tablet 25 Mg GT Q6H PRN Trazodone Hcl 50 Mg Tablet 50 Mg GT HS Maxalt (Rizatriptan Benzoate) 10 Mg Tablet 5 Mg GT PRN DAILY PRN Valproic Acid (Valproate Sodium) 250 Mg/5 Ml Solution 15 Ml PO BID Coq-10 (Ubidecarenone) 100 Mg Capsule 200 Mg GT DAILY Vitamin D3 (Cholecalciferol (Vitamin D3)) 4,000 Unit Capsule 2,000 Unit PO HS Xyzal (Levocetirizine Dihydrochloride) 5 Mg Tablet 5 Mg GT HS Proair Hfa (Albuterol Sulfate) 8.5 Gm Hfa.aer.ad 2 Puff IH PRN Q4-6HRS PRN 21 Days Ipratropium [place] 30 Ml [place] 1 [place] NS DAILY Duoneb 0.5-3(2.5) Mg/3 Ml (Albuterol/Ipratropium) 3 Ml Ampul.neb 3 Ml NEB PRN QID PRN Protonix (Pantoprazole Sodium) 20 Mg Tablet.dr 40 Mg GT HS Montelukast Sodium Tablet (Montelukast Sodium) 10 Mg Tablet 10 Mg GT DAILY PRN Magnesium Oxide 250 Mg Tablet 1 Tab PO DAILY 30 Days Multi Vitamin Daily (Multivitamin) 1 Each Tablet 1 Each GT DAILY Metoprolol Tartrate 50 Mg Tablet 50 Mg GT BID Vitals/I & O Vital Sign - Last 24 Hours 11/25/19 11/25/19 11/25/19 11/25/19 11:00 12:43 13:13 15:00 Temp 98.0 97.9 98.0 97.9 Pulse 78 100 Resp 17 17 B/P (MAP) 118/69 (85) 116/68 (84) Pulse Ox 98 97 O2 Delivery Room Air Room Air Room Air Room Air 11/25/19 11/25/19 11/25/19 11/25/19 15:42 16:12 18:36 19:00 Temp 98.1 98.1 Pulse 119 Resp 18 B/P (MAP) 129/77 (94) Pulse Ox 96 O2 Delivery Room Air Room Air Room Air Room Air 11/25/19 11/25/19 11/25/19 11/25/19 19:06 20:30 22:15 22:45 O2 Delivery Room Air Room Air Room Air Room Air 11/25/19 11/26/19 11/26/19 11/26/19 23:03 03:00 03:09 04:00 Temp 97.9 97.7 97.9 97.7 Pulse 103 105 Resp 20 20 B/P (MAP) 109/74 (86) 102/66 (78) Pulse Ox 96 96 O2 Delivery Room Air Room Air Room Air Room Air 11/26/19 11/26/19 11/26/19 07:00 07:51 08:23 Temp 98.1 98.1 Pulse 102 Resp 18 16 16 B/P (MAP) 92/52 (65) Pulse Ox 99 O2 Delivery Room Air Room Air Room Air Intake and Output 11/25/19 11/25/19 11/26/19 15:00 23:00 07:00 Intake Total 0 ml 0 ml Balance 0 ml 0 ml Justicifation of Admission Dx: Justifications for Admission: Justification of Admission Dx: No JACKELYN LUI MD Nov 26, 2019 09:56
[2019-11-26] MEDS ORDERED: LIDOCAINE 1%/EPI 1:100,000 20 ML VIAL. ONE (10:54)
--- NOTE | 2019-11-26 11:01 | PDOC ---
Provider Note Provider Note IR NOTE Spoke with patient regarding various intermediate and assisted venous access options. She would like to have a port placed, which is appropriate given history. Will get this done yuko. Justicifation of Admission Dx: Justifications for Admission: Justification of Admission Dx: No ONEL LIZ MD Nov 26, 2019 11:01
[2019-11-26] MEDS ORDERED: MIDAZOLAM HCL/PF 2 MG/2 ML VIAL. ONE (11:20)
[2019-11-26] MEDS ORDERED: ceFAZolin SODIUM IV Push 1 GM VIAL. IVP ONE ×2 (11:20→12:00)
[2019-11-26] MEDS ORDERED: fentaNYL PF VIAL 100 MCG/2 ML VIAL ONE (11:21)
[2019-11-26] MEDS ORDERED: fentaNYL PF VIAL 100 MCG/2 ML VIAL IV ONE (12:00)
[2019-11-26] MEDS ORDERED: LIDOCAINE 1%/EPI 1:100,000 20 ML VIAL. SQ ONE (12:00)
[2019-11-26] MEDS ORDERED: MIDAZOLAM HCL/PF 2 MG/2 ML VIAL. IV ONE (12:00)
[2019-11-26] MEDS: METOCLOPRAMIDE HCL 10 MG/2 ML VIAL. IVP PRN ×2 (12:44→22:16)
--- NOTE | 2019-11-26 12:53 | PDOC ---
HANNAH VALLE APRN 11/26/19 1253: SURGICAL PROGRESS NOTE Subjective nausea, not tolerating tube feeds Vital Signs Vital Signs Date Time Temp Pulse Resp B/P (MAP) Pulse Ox O2 Delivery O2 Flow Rate FiO2 11/26/19 12:14 142 100 Nasal Cannula 2.0 11/26/19 12:00 12 11/26/19 11:00 98.6 128/68 (88) 98.6 I&O Intake and Output 11/26/19 07:00 Intake Total 0 ml Balance 0 ml Intake Oral 0 ml # Voids 1 General: Alert, Oriented X3, Cooperative Abdomen: Soft, Other (mild ttp on exam) Labs Laboratory Tests Test 11/26/19 09:00 Prothrombin Time 15.0 SEC (11.7-14.0) Prothromb Time International Ratio 1.2 (0.8-1.1) Activated Partial Thromboplast Time 33 SEC (24-38) Laboratory Tests Test 11/26/19 09:00 Prothrombin Time 15.0 SEC (11.7-14.0) Prothromb Time International Ratio 1.2 (0.8-1.1) Activated Partial Thromboplast Time 33 SEC (24-38) Assessment/Plan surgery with Dr Santana planned Justicifation of Admission Dx: Justifications for Admission: Justification of Admission Dx: No TORIE SANTANA MD 11/26/19 1859: SURGICAL PROGRESS NOTE Assessment/Plan Pt seen and examined. Agree with Greta Valle's note Pt with c/o cont N/V, no significant stools abd soft, diffuse mild TTP suspect constipation is complicating pt long hx of bowel dysfunction. Surgery is scheduled, but need to resolve constipation first. HANNAH VALLE APRN Nov 26, 2019 12:53 TORIE SANTANA MD Nov 26, 2019 18:59
--- NOTE | 2019-11-26 13:25 | PDOC ---
Subjective: Subjective: On the phone - waved to me - seems couldn't hang up. Objective: Objective: D/w nurse - plans for port today, awaiting surgery follow-up. D/w Dr. Osullivan - had previously discussed pyloroplasty. Vital Signs: Vital Signs Date Time Temp Pulse Resp B/P (MAP) Pulse Ox O2 Delivery O2 Flow Rate FiO2 11/26/19 12:14 142 100 Nasal Cannula 2.0 11/26/19 12:00 12 11/26/19 11:00 98.6 128/68 (88) 98.6 Labs: Please see EMR - unable to include labs currently. Imaging: Brain MRI 11/23 Impression: Normal MRI of the brain without contrast. PE: GEN: NAD - talking on phone LUNGS: room air ABD: non-distended NEURO/PSYCH: A & O 3 A/P: Chronic n/v, abd pain, gastroparesis, constipation G tube and J tube in place -- Seen this morning when [employer] unavailable Have since reviewed surgery note - surgery planned. Will return later w/ Dr. Doyle. Add Dulcolax supp PRN and continue PPI, dicyclomine (hasn't take apparently), and prokinetic. Justicifation of Admission Dx: Justifications for Admission: Justification of Admission Dx: No LIA RO Nov 26, 2019 13:25
[2019-11-26] MEDS ORDERED: BISACODYL 10 MG SUPP.RECT. PR PRN (13:30)
--- NOTE | 2019-11-26 16:04 | RAD ---
Procedure: Ultrasound and fluoroscopically guided placement of right internal jugular power port.. 11/26/2019 2:00 PM Clinical Indication: Chronic malnutrition, history of gastroparesis. Intermittent but relatively frequent need for PPN/TPN. Difficult IV access. Sedation: Conscious sedation was administered for 40 minutes. The patient was monitored by a qualified independent observer throughout the time of sedation. Please refer to the medical record for exact doses of medications utilized to achieve moderate sedation. Fluoroscopy time: 0.3 minutes Dose area product: 0.4 Gycm2 Consent: The procedure was explained in its entirety to the patient or the patients designated uniforms sales representative by a member of the treatment team, including a discussion of the risks, benefits and commonly accepted alternatives to the procedure, as well as the expected consequences of no therapy whatsoever. Discussion of the risks included, but was not limited to, those that are most frequent and those that are rare but possibly severe or life-threatening, as well as the possibility of unforeseen complications. Technique and Findings: All elements of maximal sterile barrier technique including the use of a cap, mask, sterile gown, sterile gloves, large sterile sheet, appropriate hand hygiene, and 2% chlorhexidine for cutaneous antisepsis (or acceptable alternative antiseptic per current guidelines) were followed for this procedure. Following informed consent, and a timeout procedure, the patient was prepped and draped in the usual sterile fashion. Ultrasound interrogation of the right neck revealed patency and compressibility of the right internal jugular vein. A 21-gauge micropuncture was then used to gain access to this vein under ultrasound guidance. A hard copy ultrasound image was recorded. The needle was exchanged over a wire for a sheath. A 1 inch incision was made several centimeters inferior to the venotomy site. A catheter was tunneled from this site dermatotomy site in the neck. Catheter was advanced through peel-away sheath such that its tip was in the proximal right atrium with the patient supine. The catheter was trimmed to length and connected to the port reservoir. The port was found to flush and aspirate normally. The wound was closed in layers using 4-0 Vicryl suture. Sterile dressings were applied. Impression: Successful ultrasound and fluoroscopically guided placement of a right internal jugular PowerPort
[2019-11-26] MEDS ORDERED: DOCUSATE SODIUM 283 MG/5 ML ENEMA. PR PRN (19:00)
[2019-11-26] MEDS ORDERED: diphenhydrAMINE 50 MG/ML VIAL IV ONE (23:00)
[2019-11-27 03:00] VITALS: BP 97/59
[2019-11-27] MEDS: ONDANSETRON PF 4 MG/2 ML VIAL. IVP PRN ×3 (03:51→17:58)
[2019-11-27] MEDS: MORPHINE SULFATE 2 MG/ML VIAL. IV PRN ×6 (03:51→21:11)
[2019-11-27] MEDS: PANTOPRAZOLE IV PUSH 40 MG VIAL. IVP SCH ×3 (06:33→21:11)
[2019-11-27] MEDS: PROCHLORPERAZINE 10 MG/2 ML VIAL. IV PRN ×3 (06:33→21:10)
[2019-11-27 07:00] VITALS: BP 102/65
--- NOTE | 2019-11-27 07:57 | PDOC ---
PROGRESS NOTES Chief Complaint Chief Complaint A/P: Persistent nausea despite the following : Severe gastroparesis (she has been seen at the [facility] and among other places) Status post GJ tube and she is on continuous pump of feeds at 60 cc an hour at home Cyclic vomiting syndrome GJ tube Severe gastroparesis Cyclic vomiting syndrome G-tube (x 20), J-tube, GERD, hypertension, gastroparesis, cyclic vomiting, cholecystectomy, tonsillectomy. 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 Many GJ tubes - issues ww/ misplacement in the past and re-positioning w/ IR, though most recently conversion of gastrojejunostomy tube to gastrostomy tube and placement of jejunostomy tube by dr. Santana in 08/2019. H/o H. pylori treated twice. Last EGD 05/2019 showed misplacement of J-tube coiled in stomach. EGD 07/2018 was completely normal w/ no food and minimal fluid and widely patent pylorus. Biopsies negative for celiac and H. pylori. Colonoscopy 09/26/18 (for abnormal MRE suspicious for mild pancolitis) revealed no evidence of colitis and two 2-4mm adenomatous polyps in ascendign colon. GES normal in 08/2018, then abnormal in 08/2019 (below). MRCP 08/2018 w/ hepatic adenoma, normal sized liver, mild hepatic steatosis, and likely syrinx at T12. History of Present Illness History of Present Illness Ms Mustafa is a 19 yo F w/ PMHx IBS, GERD, cyclic vomiting syndrome s/p multiple GJ tubes - issues ww/ misplacement in the past and re-positioning w/ IR, though most recently conversion of gastrojejunostomy tube to gastrostomy tube and placement of jejunostomy tube by dr. Santana in 08/2019 who is admitted for worsening nausea and vomiting as well as dizziness and room spinning when standing. Admitted with GI, general surgery, and neurology consultation. Abdominal XR shows constipation with probable fecal impaction. 11/22: Still with nausea and vomiting 11/23: Procalamine started, still with nausea 11/24: Still with nausea 11/25: Afebrile. She is still complaining of nausea to me. Requesting a pyloroplasty with general surgery. We did discuss the potential of domperidone which is been discussed with her outpatient as well. Also we discussed digital disimpaction, initiated prefers this be done by nurse. Port placed Afebrile. Had small stool after suppository. Starting on tube feeds per surgery with tentative plans in 2 weeks to consider pyloroplasty. Nausea is the same. Right-sided abdominal pain improved. Vitals Vitals Vital Signs Date Time Temp Pulse Resp B/P (MAP) Pulse Ox O2 Delivery O2 Flow Rate FiO2 11/27/19 07:47 Room Air 11/27/19 07:00 97.7 111 18 102/65 (77) 96 97.7 11/26/19 12:14 2.0 Physical Exam General: Alert, Oriented X3, Cooperative Abdomen: Soft, Other (mild ttp on exam) Extremities: No clubbing, No cyanosis Skin: No rashes Labs LABS Laboratory Tests Test 11/26/19 09:00 Prothrombin Time 15.0 SEC (11.7-14.0) Prothromb Time International Ratio 1.2 (0.8-1.1) Activated Partial Thromboplast Time 33 SEC (24-38) Comment Review of Relevant I have reviewed the following items lalo (where applicable) has been applied. Labs Laboratory Tests Test 11/26/19 09:00 Prothrombin Time 15.0 SEC (11.7-14.0) Prothromb Time International Ratio 1.2 (0.8-1.1) Activated Partial Thromboplast Time 33 SEC (24-38) Laboratory Tests Test 11/26/19 09:00 Prothrombin Time 15.0 SEC (11.7-14.0) Prothromb Time International Ratio 1.2 (0.8-1.1) Activated Partial Thromboplast Time 33 SEC (24-38) Microbiology 11/21/19 Urine Culture - Final, Complete Medications Current Medications Sodium Chloride 1,000 ml @ 1,000 mls/hr 1X ONCE IV Last administered on 11/21/19at 21:06; Start 11/21/19 at 21:00; Stop 11/21/19 at 21:59; Status DC Famotidine (Pepcid Vial) 20 mg 1X ONCE IVP Last administered on 11/21/19at 21:08; Start 11/21/19 at 21:00; Stop 11/21/19 at 21:01; Status DC Morphine Sulfate (Morphine Sulfate) 2 mg 1X ONCE IV Last administered on 11/21/19at 21:09; Start 11/21/19 at 21:00; Stop 11/21/19 at 21:01; Status DC Prochlorperazine Edisylate (Compazine) 10 mg 1X ONCE IV Last administered on 11/21/19at 21:08; Start 11/21/19 at 21:00; Stop 11/21/19 at 21:01; Status DC Ondansetron HCl (Zofran) 4 mg PRN Q8HRS PRN IV NAUSEA/VOMITING 1ST CHOICE Last administered on 11/22/19at 16:26; Start 11/21/19 at 23:00; Stop 11/22/19 at 22:59; Status DC Morphine Sulfate (Morphine Sulfate) 2 mg 1X ONCE IV Last administered on 11/21/19at 23:28; Start 11/21/19 at 23:45; Stop 11/21/19 at 23:46; Status DC Morphine Sulfate (Morphine Sulfate) 2 mg PRN Q2HR PRN IV SEVERE PAIN 7-10 Last administered on 11/22/19at 12:11; Start 11/22/19 at 01:45; Stop 11/22/19 at 13:25; Status DC Pantoprazole Sodium (PROTONIX VIAL for IV PUSH) 40 mg BIDAC IVP Last administered on 11/27/19at 06:33; Start 11/22/19 at 12:00 Bisacodyl (Dulcolax Supp) 10 mg 1X ONCE GA Last administered on 11/22/19at 12:11; Start 11/22/19 at 12:00; Stop 11/22/19 at 12:01; Status DC Dicyclomine HCl (Bentyl) 10 mg PRN QID PRN PO GI SYMPTOMS; Start 11/22/19 at 13:30 Methylnaltrexone [place] (Relistor) 12 mg 1X ONCE SQ Last administered on 11/22/19at 14:27; Start 11/22/19 at 14:00; Stop 11/22/19 at 14:01; Status DC Metoclopramide HCl (Reglan Vial) 10 mg PRN Q6HRS PRN IVP NAUSEA/VOMITING 3RD CHOICE Last administered on 11/26/19at 22:16; Start 11/22/19 at 15:30 Morphine Sulfate (Morphine Sulfate) 2 mg PRN Q2HR PRN IV PAIN Last administered on 11/27/19at 06:34; Start 11/22/19 at 17:00 Sodium Chloride 1,000 ml @ 75 mls/hr [id number] IV Last administered on 11/22/19at 19:53; Start 11/22/19 at 20:00; Stop 11/22/19 at 20:11; Status DC Amino Acids/ Glycerin/ Electrolytes 1,000 ml @ 75 mls/hr [id number] IV Last administered on 11/26/19at 19:18; Start 11/22/19 at 21:00 Ondansetron HCl (Zofran) 4 mg PRN Q6HRS PRN IVP NAUSEA/VOMITING 1ST CHOICE Last administered on 11/27/19at 03:51; Start 11/22/19 at 23:30 Prochlorperazine Edisylate (Compazine) 10 mg PRN Q6HRS PRN IV NAUSEA/VOMITING 2ND CHOICE Last administered on 11/27/19at 06:33; Start 11/22/19 at 23:30 Nystatin (Nystatin Oral Susp) 5 ml [id number] Last administered on 11/26/19at 22:24; Start 11/24/19 at 13:00 Lidocaine/ Epinephrine (LIDOCAINE 1%-EPI 1:100,000 Multi-Dose) 20 ml STK-MED ONCE .ROUTE ; Start 11/26/19 at 10:54; Stop 11/26/19 at 10:57; Status DC Cefazolin Sodium (Ancef) 1 gm STK-MED ONCE IVP ; Start 11/26/19 at 11:20; Stop 11/26/19 at 11:26; Status DC Midazolam HCl (Versed) 2 mg STK-MED ONCE .ROUTE ; Start 11/26/19 at 11:20; Stop 11/26/19 at 11:26; Status DC Fentanyl Citrate (Fentanyl 2ml Vial) 100 mcg STK-MED ONCE .ROUTE ; Start 11/26/19 at 11:21; Stop 11/26/19 at 11:26; Status DC Midazolam HCl (Versed) 2 mg 1X ONCE IV Last administered on 11/26/19at 11:38; Start 11/26/19 at 12:00; Stop 11/26/19 at 12:03; Status DC Fentanyl Citrate (Fentanyl 2ml Vial) 100 mcg 1X ONCE IV Last administered on 11/26/19at 12:00; Start 11/26/19 at 12:00; Stop 11/26/19 at 12:01 Lidocaine/ Epinephrine (LIDOCAINE 1%-EPI 1:100,000 Multi-Dose) 20 ml 1X ONCE SQ Last administered on 11/26/19at 12:00; Start 11/26/19 at 12:00; Stop 11/26/19 at 12:03; Status DC Cefazolin Sodium (Ancef) 1 gm 1X ONCE IVP Last administered on 11/26/19at 12:00; Start 11/26/19 at 12:00; Stop 11/26/19 at 12:03; Status DC Bisacodyl (Dulcolax Supp) 10 mg PRN DAILY PRN GA CONSTIPATION, 1sT CHOICE Last administered on 11/26/19at 13:30; Start 11/26/19 at 13:30 Docusate Sodium (Enemeez) 283 mg PRN DAILY PRN GA CONSTIPATION, 2nd CHOICE; Start 11/26/19 at 19:00 Diphenhydramine HCl (Benadryl) 12.5 mg 1X ONCE IV Last administered on 11/26/19at 23:13; Start 11/26/19 at 23:00; Stop 11/26/19 at 23:01; Status DC Active Scripts Active Lactated Ringers (Ringers Solution,Lactated) 1,000 Ml Iv.soln 1,000 Ml IV DAILY Keflex (Cephalexin) 500 Mg Capsule 1 Cap PO TID 4 Days Miralax (Polyethylene Glycol 3350) 17 Gm Powd.pack 1 Packet PO DAILY 15 Days dissolve in water Hydrocodone-Apap 7.5-325/15 Soln (Hydrocodone Bit/Acetaminophen) 15 Ml Solution 15 Ml JT PRN Q6HRS PRN Reported Advair Hfa 230-21 Mcg Inhaler (Fluticasone/Salmeterol) 12 Gm Hfa.aer.ad 1 Inh IH BID Buspirone Hcl 10 Mg Tablet 0.5 Tab PO BID Reglan (Metoclopramide Hcl) 10 Mg Tablet 10 Mg PO QIDACHS Zelnorm (Tegaserod Hydrogen Maleate) 6 Mg Tablet 6 Mg GT BID Amitriptyline Hcl 75 Mg Tablet 75 Mg PO QHS Dicyclomine Hcl 20 Mg Tablet 20 Mg GT PRN QID PRN Stool Softener (Docusate Sodium) 50 Mg Capsule 50 Mg PO PRN HS Olopatadine HCl 5 Ml Drops 0.1 % OP PRN DAILY PRN Promethazine Hcl 12.5 Mg Tablet 25 Mg GT Q6H PRN Trazodone Hcl 50 Mg Tablet 50 Mg GT HS Maxalt (Rizatriptan Benzoate) 10 Mg Tablet 5 Mg GT PRN DAILY PRN Valproic Acid (Valproate Sodium) 250 Mg/5 Ml Solution 15 Ml PO BID Coq-10 (Ubidecarenone) 100 Mg Capsule 200 Mg GT DAILY Vitamin D3 (Cholecalciferol (Vitamin D3)) 4,000 Unit Capsule 2,000 Unit PO HS Xyzal (Levocetirizine Dihydrochloride) 5 Mg Tablet 5 Mg GT HS Proair Hfa (Albuterol Sulfate) 8.5 Gm Hfa.aer.ad 2 Puff IH PRN Q4-6HRS PRN 21 Days Ipratropium [place] 30 Ml [place] 1 [place] NS DAILY Duoneb 0.5-3(2.5) Mg/3 Ml (Albuterol/Ipratropium) 3 Ml Ampul.neb 3 Ml NEB PRN QID PRN Protonix (Pantoprazole Sodium) 20 Mg Tablet.dr 40 Mg GT HS Montelukast Sodium Tablet (Montelukast Sodium) 10 Mg Tablet 10 Mg GT DAILY PRN Magnesium Oxide 250 Mg Tablet 1 Tab PO DAILY 30 Days Multi Vitamin Daily (Multivitamin) 1 Each Tablet 1 Each GT DAILY Metoprolol Tartrate 50 Mg Tablet 50 Mg GT BID Vitals/I & O Vital Sign - Last 24 Hours 11/26/19 11/26/19 11/26/19 11/26/19 08:00 08:23 11:00 12:00 Temp 98.6 98.6 Pulse 122 Resp 16 18 12 B/P (MAP) 128/68 (88) Pulse Ox 93 O2 Delivery Room Air Room Air Room Air 11/26/19 11/26/19 11/26/19 11/26/19 12:14 15:00 15:42 16:47 Temp 98.0 98.0 Pulse 142 79 Resp 18 16 16 B/P (MAP) 99/67 (78) Pulse Ox 100 100 O2 Delivery Nasal Cannula Room Air Room Air O2 Flow Rate 2.0 11/26/19 11/26/19 11/26/19 11/26/19 19:00 19:18 20:00 20:00 Temp 98.0 98.0 Pulse 108 Resp 18 B/P (MAP) 96/55 (69) Pulse Ox 95 O2 Delivery Room Air Room Air Room Air Room Air 11/26/19 11/26/19 11/26/19 11/27/19 22:17 23:00 23:00 03:00 Temp 97.8 98.0 97.8 98.0 Pulse 108 109 Resp 18 18 B/P (MAP) 103/64 (77) 97/59 (72) Pulse Ox 96 98 O2 Delivery Room Air Room Air Room Air Room Air 11/27/19 11/27/19 11/27/19 11/27/19 03:51 04:21 06:34 07:00 Temp 97.7 97.7 Pulse 111 Resp 18 B/P (MAP) 102/65 (77) Pulse Ox 96 O2 Delivery Room Air Room Air Room Air Room Air 11/27/19 07:47 O2 Delivery Room Air Intake and Output 11/26/19 11/26/19 11/27/19 15:00 23:00 07:00 Intake Total 0 ml 0 ml Balance 0 ml 0 ml Justicifation of Admission Dx: Justifications for Admission: Justification of Admission Dx: ABIGAIL Hammond MD Nov 27, 2019 07:57
[2019-11-27] MEDS: NYSTATIN 100,000 UNITS/ML 5 ML ORAL.SUSP. SWSW SCH ×4 (08:47→21:11)
[2019-11-27] MEDS: AMINO AC 3%/ELECTROLYTE/GLYCER 1,000 ML IV SCH ×2 (08:48→21:00)
--- NOTE | 2019-11-27 09:26 | PDOC ---
HANNAH VALLE RESIDENTIAL DESIGNER 11/27/19925: SURGICAL PROGRESS NOTE Subjective had small stool with suppository significant nausea Vital Signs Vital Signs Date Time Temp Pulse Resp B/P (MAP) Pulse Ox O2 Delivery O2 Flow Rate FiO2 11/27/19 07:47 Room Air 11/27/19 07:00 97.7 111 18 102/65 (77) 96 97.7 11/26/19 12:14 2.0 I&O Intake and Output 11/27/19 07:00 Intake Total 0 ml Balance 0 ml Intake Oral 0 ml # Voids 2 General: Alert, Oriented X3, Cooperative Abdomen: Soft, Other (ND) Labs Laboratory Tests Test 11/26/19 09:00 Prothrombin Time 15.0 SEC (11.7-14.0) Prothromb Time International Ratio 1.2 (0.8-1.1) Activated Partial Thromboplast Time 33 SEC (24-38) Problem List tentatively planned for OR 12/10-- needs constipation resolved prior--continue suppositories and enemas power port in place--will ask for TPN Justicifation of Admission Dx: Justifications for Admission: Justification of Admission Dx: No TORIE MILLER MD 11/27/19 0945: SURGICAL PROGRESS NOTE Assessment/Plan Pt seen and examined. Agree with Chapis's note Pt with c/o nausea, pain controlled small stools abd soft, ND, NTTP, tubes in place constipation needs to addressed prior to pyloroplasty and pt also needs to be able to tolerate some tube feeds. will restart tube feeds, continue suppositories and place G-tube to drainage. HANNAH VALLE APRN Nov 27, 2019 09:26 TORIE MILLER MD Nov 27, 2019 09:45
[2019-11-27] MEDS ORDERED: TPN PER PHARMACY MC PRN (09:30)
--- NOTE | 2019-11-27 09:39 | NUR ---
SW following. Discussed with RN, pt had port placed yesterday, starting TPN this evening. Awaiting determination of whether pt is a surgical candidate for a pyloroplasty. NIXON will continue to follow.
--- NOTE | 2019-11-27 10:03 | PDOC ---
Subjective: Subjective: "Good" stool yesterday after suppository - says she needs bowels moving before surgery. Nausea is the same. Right-sided abdominal pain is better. Hasn't had J-tube feeds since she's been here, doesn't necessarily want to restart. Doesn't want to eat. Says her throat hurts and that's usually a symptom of thrush so she's getting medicine for that. Not really venting G tube. Objective: Objective: Reviewed surgery note - constipation needs to addressed prior to pyloroplasty and pt also needs to be able to tolerate some tube feeds. Vital Signs: Vital Signs Date Time Temp Pulse Resp B/P (MAP) Pulse Ox O2 Delivery O2 Flow Rate FiO2 11/27/19 09:40 Room Air 11/27/19 07:00 97.7 111 18 102/65 (77) 96 97.7 11/26/19 12:14 2.0 PE: GEN: NAD - has PPN LUNGS: CTAB HEART: mildly tachycardic ABD: quiet BS, G tube w/ bilious fluid and J tube, doesn't seem too tender NEURO/PSYCH: A & O 3, flat A/P: Chronic n/v, right-sided abd pain, gastroparesis, constipation G tube and J tube in place, now s/p port -- Since I have seen ?plans to restart tube feeds Encouraged her to use morphine sparingly if possible - previously told me dicyclomine helped abd pain - has not used this here though it's ordered. Constipation is a chronic issue - many treatment failures - has stooled with suppositories here, will continue. Note also orders for enema PRN. Other per Dr. Doyle. Justicifation of Admission Dx: Justifications for Admission: Justification of Admission Dx: No LIA RO Nov 27, 2019 10:03
--- NOTE | 2019-11-27 10:17 | PDOC ---
PROGRESS NOTES Assessment Migraine headaches, Treated at with Botox injections and she is supposed to start on Aimovig. Brain MRI here negative Nausea and vomiting in gastroesophageal reflux disease and gastroparesis req uiring PEG tube Note surgery plans Plan Nothing to add neurologically here, follow up at Subjective Headache 10/30 Objective Vital Signs Date Time Temp Pulse Resp B/P (MAP) Pulse Ox O2 Delivery O2 Flow Rate FiO2 11/27/19 09:40 Room Air 11/27/19 07:00 97.7 111 18 102/65 (77) 96 97.7 11/26/19 12:14 2.0 Intake and Output 11/27/19 07:00 Intake Total 0 ml Balance 0 ml Intake Oral 0 ml # Voids 2 PHYSICAL EXAM Alert. Oriented to time, place and person. PERRL. EOMI. CN: no focal findings. Muscle tone: normal. Muscle strength: 5/5 DTR: 2+ Plantar reflex: flexor Gait: not examined in bed. Sensory exam: no abnormal findings. No cerebellar signs elicited. Review of Relevant I have reviewed the following items lalo (where applicable) has been applied. Labs Laboratory Tests Test 11/26/19 09:00 Prothrombin Time 15.0 SEC (11.7-14.0) Prothromb Time International Ratio 1.2 (0.8-1.1) Activated Partial Thromboplast Time 33 SEC (24-38) Microbiology 11/21/19 Urine Culture - Final, Complete Medications Current Medications Sodium Chloride 1,000 ml @ 1,000 mls/hr 1X ONCE IV Last administered on 11/21/19at 21:06; Start 11/21/19 at 21:00; Stop 11/21/19 at 21:59; Status DC Famotidine (Pepcid Vial) 20 mg 1X ONCE IVP Last administered on 11/21/19at 21:08; Start 11/21/19 at 21:00; Stop 11/21/19 at 21:01; Status DC Morphine Sulfate (Morphine Sulfate) 2 mg 1X ONCE IV Last administered on 11/21/19at 21:09; Start 11/21/19 at 21:00; Stop 11/21/19 at 21:01; Status DC Prochlorperazine Edisylate (Compazine) 10 mg 1X ONCE IV Last administered on 11/21/19at 21:08; Start 11/21/19 at 21:00; Stop 11/21/19 at 21:01; Status DC Ondansetron HCl (Zofran) 4 mg PRN Q8HRS PRN IV NAUSEA/VOMITING 1ST CHOICE Last administered on 11/22/19at 16:26; Start 11/21/19 at 23:00; Stop 11/22/19 at 22:59; Status DC Morphine Sulfate (Morphine Sulfate) 2 mg 1X ONCE IV Last administered on 11/21/19at 23:28; Start 11/21/19 at 23:45; Stop 11/21/19 at 23:46; Status DC Morphine Sulfate (Morphine Sulfate) 2 mg PRN Q2HR PRN IV SEVERE PAIN 7-10 Last administered on 11/22/19at 12:11; Start 11/22/19 at 01:45; Stop 11/22/19 at 13:25; Status DC Pantoprazole Sodium (PROTONIX VIAL for IV PUSH) 40 mg BIDAC IVP Last administered on 11/27/19at 06:33; Start 11/22/19 at 12:00 Bisacodyl (Dulcolax Supp) 10 mg 1X ONCE IN Last administered on 11/22/19at 12:11; Start 11/22/19 at 12:00; Stop 11/22/19 at 12:01; Status DC Dicyclomine HCl (Bentyl) 10 mg PRN QID PRN PO GI SYMPTOMS; Start 11/22/19 at 13:30 Methylnaltrexone [place] (Relistor) 12 mg 1X ONCE SQ Last administered on 11/22/19at 14:27; Start 11/22/19 at 14:00; Stop 11/22/19 at 14:01; Status DC Metoclopramide HCl (Reglan Vial) 10 mg PRN Q6HRS PRN IVP NAUSEA/VOMITING 3RD CHOICE Last administered on 11/26/19at 22:16; Start 11/22/19 at 15:30 Morphine Sulfate (Morphine Sulfate) 2 mg PRN Q2HR PRN IV PAIN Last administered on 11/27/19at 06:34; Start 11/22/19 at 17:00 Sodium Chloride 1,000 ml @ 75 mls/hr [id number] IV Last administered on 11/22/19at 19:53; Start 11/22/19 at 20:00; Stop 11/22/19 at 20:11; Status DC Amino Acids/ Glycerin/ Electrolytes 1,000 ml @ 75 mls/hr [id number] IV Last administered on 11/27/19at 08:48; Start 11/22/19 at 21:00; Stop 11/27/19 at 21:59 Ondansetron HCl (Zofran) 4 mg PRN Q6HRS PRN IVP NAUSEA/VOMITING 1ST CHOICE Last administered on 11/27/19at 03:51; Start 11/22/19 at 23:30 Prochlorperazine Edisylate (Compazine) 10 mg PRN Q6HRS PRN IV NAUSEA/VOMITING 2ND CHOICE Last administered on 11/27/19at 06:33; Start 11/22/19 at 23:30 Nystatin (Nystatin Oral Susp) 5 ml [id number] Last administered on 11/27/19at 08:47; Start 11/24/19 at 13:00 Lidocaine/ Epinephrine (LIDOCAINE 1%-EPI 1:100,000 Multi-Dose) 20 ml STK-MED ONCE .ROUTE ; Start 11/26/19 at 10:54; Stop 11/26/19 at 10:57; Status DC Cefazolin Sodium (Ancef) 1 gm STK-MED ONCE IVP ; Start 11/26/19 at 11:20; Stop 11/26/19 at 11:26; Status DC Midazolam HCl (Versed) 2 mg STK-MED ONCE .ROUTE ; Start 11/26/19 at 11:20; Stop 11/26/19 at 11:26; Status DC Fentanyl Citrate (Fentanyl 2ml Vial) 100 mcg STK-MED ONCE .ROUTE ; Start 11/26/19 at 11:21; Stop 11/26/19 at 11:26; Status DC Midazolam HCl (Versed) 2 mg 1X ONCE IV Last administered on 11/26/19at 11:38; Start 11/26/19 at 12:00; Stop 11/26/19 at 12:03; Status DC Fentanyl Citrate (Fentanyl 2ml Vial) 100 mcg 1X ONCE IV Last administered on 11/26/19at 12:00; Start 11/26/19 at 12:00; Stop 11/26/19 at 12:01 Lidocaine/ Epinephrine (LIDOCAINE 1%-EPI 1:100,000 Multi-Dose) 20 ml 1X ONCE SQ Last administered on 11/26/19at 12:00; Start 11/26/19 at 12:00; Stop 11/26/19 at 12:03; Status DC Cefazolin Sodium (Ancef) 1 gm 1X ONCE IVP Last administered on 11/26/19at 12:00; Start 11/26/19 at 12:00; Stop 11/26/19 at 12:03; Status DC Bisacodyl (Dulcolax Supp) 10 mg PRN DAILY PRN IN CONSTIPATION, 1sT CHOICE Last administered on 11/26/19at 13:30; Start 11/26/19 at 13:30 Docusate Sodium (Enemeez) 283 mg PRN DAILY PRN IN CONSTIPATION, 2nd CHOICE; Start 11/26/19 at 19:00 Diphenhydramine HCl (Benadryl) 12.5 mg 1X ONCE IV Last administered on 11/26/19at 23:13; Start 11/26/19 at 23:00; Stop 11/26/19 at 23:01; Status DC Info (Tpn Per Pharmacy) 1 each PRN DAILY PRN MC SEE COMMENTS; Start 11/27/19 at 09:30; Stop 11/27/19 at 09:55; Status DC Active Scripts Active Lactated Ringers (Ringers Solution,Lactated) 1,000 Ml Iv.soln 1,000 Ml IV DAILY Keflex (Cephalexin) 500 Mg Capsule 1 Cap PO TID 4 Days Miralax (Polyethylene Glycol 3350) 17 Gm Powd.pack 1 Packet PO DAILY 15 Days dissolve in water Hydrocodone-Apap 7.5-325/15 Soln (Hydrocodone Bit/Acetaminophen) 15 Ml Solution 15 Ml JT PRN Q6HRS PRN Reported Advair Hfa 230-21 Mcg Inhaler (Fluticasone/Salmeterol) 12 Gm Hfa.aer.ad 1 Inh IH BID Buspirone Hcl 10 Mg Tablet 0.5 Tab PO BID Reglan (Metoclopramide Hcl) 10 Mg Tablet 10 Mg PO QIDACHS Zelnorm (Tegaserod Hydrogen Maleate) 6 Mg Tablet 6 Mg GT BID Amitriptyline Hcl 75 Mg Tablet 75 Mg PO QHS Dicyclomine Hcl 20 Mg Tablet 20 Mg GT PRN QID PRN Stool Softener (Docusate Sodium) 50 Mg Capsule 50 Mg PO PRN HS Olopatadine HCl 5 Ml Drops 0.1 % OP PRN DAILY PRN Promethazine Hcl 12.5 Mg Tablet 25 Mg GT Q6H PRN Trazodone Hcl 50 Mg Tablet 50 Mg GT HS Maxalt (Rizatriptan Benzoate) 10 Mg Tablet 5 Mg GT PRN DAILY PRN Valproic Acid (Valproate Sodium) 250 Mg/5 Ml Solution 15 Ml PO BID Coq-10 (Ubidecarenone) 100 Mg Capsule 200 Mg GT DAILY Vitamin D3 (Cholecalciferol (Vitamin D3)) 4,000 Unit Capsule 2,000 Unit PO HS Xyzal (Levocetirizine Dihydrochloride) 5 Mg Tablet 5 Mg GT HS Proair Hfa (Albuterol Sulfate) 8.5 Gm Hfa.aer.ad 2 Puff IH PRN Q4-6HRS PRN 21 Days Ipratropium [place] 30 Ml [place] 1 [place] NS DAILY Duoneb 0.5-3(2.5) Mg/3 Ml (Albuterol/Ipratropium) 3 Ml Ampul.neb 3 Ml NEB PRN QID PRN Protonix (Pantoprazole Sodium) 20 Mg Tablet.dr 40 Mg GT HS Montelukast Sodium Tablet (Montelukast Sodium) 10 Mg Tablet 10 Mg GT DAILY PRN Magnesium Oxide 250 Mg Tablet 1 Tab PO DAILY 30 Days Multi Vitamin Daily (Multivitamin) 1 Each Tablet 1 Each GT DAILY Metoprolol Tartrate 50 Mg Tablet 50 Mg GT BID Vitals/I & O Vital Sign - Last 24 Hours 11/26/19 11/26/19 11/26/19 11/26/19 11:00 12:00 12:14 15:00 Temp 98.6 98.0 98.6 98.0 Pulse 122 142 79 Resp 18 12 18 B/P (MAP) 128/68 (88) 99/67 (78) Pulse Ox 93 100 100 O2 Delivery Room Air Nasal Cannula O2 Flow Rate 2.0 11/26/19 11/26/19 11/26/19 11/26/19 15:42 16:47 19:00 19:18 Temp 98.0 98.0 Pulse 108 Resp 16 16 18 B/P (MAP) 96/55 (69) Pulse Ox 95 O2 Delivery Room Air Room Air Room Air Room Air 11/26/19 11/26/19 11/26/19/6/20 20:00 20:00 22:17 23:00 O2 Delivery Room Air Room Air Room Air Room Air 11/26/19 11/27/19 11/27/19 11/27/19 23:00 03:00 03:51 04:21 Temp 97.8 98.0 97.8 98.0 Pulse 108 109 Resp 18 18 B/P (MAP) 103/64 (77) 97/59 (72) Pulse Ox 96 98 O2 Delivery Room Air Room Air Room Air Room Air 11/27/19 11/27/19 11/27/19 11/27/19 06:34 07:00 07:47 09:40 Temp 97.7 97.7 Pulse 111 Resp 18 B/P (MAP) 102/65 (77) Pulse Ox 96 O2 Delivery Room Air Room Air Room Air Room Air Intake and Output 11/26/19 11/26/19 11/27/19 15:00 23:00 07:00 Intake Total 0 ml 0 ml Balance 0 ml 0 ml Justicifation of Admission Dx: Justifications for Admission: Justification of Admission Dx: No JACKELYN LUI MD Nov 27, 2019 10:17
[2019-11-27 11:01] VITALS: BP 101/70
[2019-11-27 12:21] LABS: BASO % 0 % (0-3); EOS % 1 % (0-3); HEMATOCRIT 37.1 % (36.0-47.0); LYMPH # 1.1 x10^3/uL (1.0-4.8); LYMPH % 23 % (24-48); MEAN CORPUSCULAR HEMOGLOBIN 33 pg (25-35); MEAN CORPUSCULAR HGB CONC 35 g/dL (31-37); MEAN CORPUSCULAR VOLUME 93 fL (79-100); MONO # 0.4 x10^3/uL (0.0-1.1); MONO % 8 % (0-9); NEUT # 3.5 x10^3/uL (1.8-7.7); NEUT % 69 % (31-73); PLATELET COUNT 136 x10^3/uL (140-400); RED BLOOD COUNT 3.99 x10^6/uL (3.50-5.40); RED CELL DISTRIBUTION WIDTH 13.1 % (11.5-14.5); WHITE BLOOD COUNT 5.1 x10^3/uL (4.0-11.0)
[2019-11-27 12:36] LABS: ALBUMIN 3.4 g/dL (3.4-5.0); CALCIUM 8.7 mg/dL (8.5-10.1); CREATININE 0.6 mg/dL (0.6-1.0); GFR 126.2; MAGNESIUM 1.6 mg/dL (1.8-2.4); PHOSPHORUS 3.1 mg/dL (2.6-4.7); POTASSIUM 4.2 mmol/L (3.5-5.1); TOTAL BILIRUBIN 0.4 mg/dL (0.2-1.0); TOTAL PROTEIN 6.9 g/dL (6.4-8.2)
[2019-11-27 15:01] VITALS: BP 118/68
[2019-11-27] MEDS: METOCLOPRAMIDE HCL 10 MG/2 ML VIAL. IVP PRN (15:10)
[2019-11-27 19:00] VITALS: BP 107/62
--- NOTE | 2019-11-27 21:29 | NUR ---
PROCALAMINE NOT GIVEN AT 9 PM MEDS. EARLIER INFUSION STILL GOING
[2019-11-27 23:00] VITALS: BP 122/80
[2019-11-28] MEDS: MORPHINE SULFATE 2 MG/ML VIAL. IV PRN ×4 (03:12→19:44)
[2019-11-28] MEDS: PROCHLORPERAZINE 10 MG/2 ML VIAL. IV PRN ×2 (03:12→19:43)
[2019-11-28] MEDS: ONDANSETRON PF 4 MG/2 ML VIAL. IVP PRN ×2 (05:01→15:44)
[2019-11-28 05:07] LABS: BASO % 0 % (0-3); EOS # 0.1 x10^3/uL (0.0-0.7); EOS % 1 % (0-3); HEMATOCRIT 33.9 % (36.0-47.0); LYMPH # 1.5 x10^3/uL (1.0-4.8); LYMPH % 31 % (24-48); MEAN CORPUSCULAR HEMOGLOBIN 33 pg (25-35); MEAN CORPUSCULAR HGB CONC 35 g/dL (31-37); MEAN CORPUSCULAR VOLUME 92 fL (79-100); MONO # 0.4 x10^3/uL (0.0-1.1); MONO % 9 % (0-9); NEUT # 2.7 x10^3/uL (1.8-7.7); NEUT % 58 % (31-73); PLATELET COUNT 126 x10^3/uL (140-400); RED BLOOD COUNT 3.68 x10^6/uL (3.50-5.40); RED CELL DISTRIBUTION WIDTH 13.4 % (11.5-14.5); WHITE BLOOD COUNT 4.7 x10^3/uL (4.0-11.0)
[2019-11-28 05:30] LABS: CALCIUM 8.2 mg/dL (8.5-10.1); CREATININE 0.5 mg/dL (0.6-1.0); GFR 155.7; POTASSIUM 3.6 mmol/L (3.5-5.1)
[2019-11-28] MEDS: METOCLOPRAMIDE HCL 10 MG/2 ML VIAL. IVP PRN (06:39)
[2019-11-28 07:00] VITALS: BP 102/61
[2019-11-28] MEDS: NYSTATIN 100,000 UNITS/ML 5 ML ORAL.SUSP. SWSW SCH ×4 (08:02→21:24)
--- NOTE | 2019-11-28 08:57 | PDOC ---
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 11/28/19 0857: SURGICAL PROGRESS NOTE Subjective nausea is still significant TF are at 30cc/hr--she thinks makes worse no stool yesterday Vital Signs Vital Signs Date Time Temp Pulse Resp B/P (MAP) Pulse Ox O2 Delivery O2 Flow Rate FiO2 11/28/19 07:22 Room Air 11/28/19 07:19 94 11/28/19 07:00 97.5 108 20 102/61 (75) 97.5 11/28/19 06:40 2.0 I&O Intake and Output 11/28/19 07:00 Intake Total 300 ml Balance 300 ml Tube Feeding 300 ml General: Alert, Oriented X3, Cooperative Abdomen: Soft, Other (g tube to DD, j tube with feeds) Labs Laboratory Tests Test 11/26/19 09:00 11/27/19 12:00 11/28/19 05:00 Prothrombin Time 15.0 SEC (11.7-14.0) Prothromb Time International Ratio 1.2 (0.8-1.1) Activated Partial Thromboplast Time 33 SEC (24-38) White Blood Count 5.1 x10^3/uL (4.0-11.0) 4.7 x10^3/uL (4.0-11.0) Red Blood Count 3.99 x10^6/uL (3.50-5.40) 3.68 x10^6/uL (3.50-5.40) Hemoglobin 13.0 g/dL (12.0-15.5) 12.0 g/dL (12.0-15.5) Hematocrit 37.1 % (36.0-47.0) 33.9 % (36.0-47.0) Mean Corpuscular Volume 93 fL (79-100) 92 fL (79-100) Mean Corpuscular Hemoglobin 33 pg (25-35) 33 pg (25-35) Mean Corpuscular Hemoglobin Concent 35 g/dL (31-37) 35 g/dL (31-37) Red Cell Distribution Width 13.1 % (11.5-14.5) 13.4 % (11.5-14.5) Platelet Count 136 x10^3/uL (140-400) 126 x10^3/uL (140-400) Neutrophils (%) (Auto) 69 % (31-73) 58 % (31-73) Lymphocytes (%) (Auto) 23 % (24-48) 31 % (24-48) Monocytes (%) (Auto) 8 % (0-9) 9 % (0-9) Eosinophils (%) (Auto) 1 % (0-3) 1 % (0-3) Basophils (%) (Auto) 0 % (0-3) 0 % (0-3) Neutrophils # (Auto) 3.5 x10^3/uL (1.8-7.7) 2.7 x10^3/uL (1.8-7.7) Lymphocytes # (Auto) 1.1 x10^3/uL (1.0-4.8) 1.5 x10^3/uL (1.0-4.8) Monocytes # (Auto) 0.4 x10^3/uL (0.0-1.1) 0.4 x10^3/uL (0.0-1.1) Eosinophils # (Auto) 0.0 x10^3/uL (0.0-0.7) 0.1 x10^3/uL (0.0-0.7) Basophils # (Auto) 0.0 x10^3/uL (0.0-0.2) 0.0 x10^3/uL (0.0-0.2) Sodium Level 136 mmol/L (136-145) 138 mmol/L (136-145) Potassium Level 4.2 mmol/L (3.5-5.1) 3.6 mmol/L (3.5-5.1) Chloride Level 102 mmol/L (98-107) 103 mmol/L (98-107) Carbon Dioxide Level 23 mmol/L (21-32) 26 mmol/L (21-32) Anion Gap 11 (6-14) 9 (6-14) Blood Urea Nitrogen 8 mg/dL (7-20) 10 mg/dL (7-20) Creatinine 0.6 mg/dL (0.6-1.0) 0.5 mg/dL (0.6-1.0) Estimated GFR (Cockcroft-Gault) 126.2 155.7 BUN/Creatinine Ratio 13 (6-20) Glucose Level 82 mg/dL (70-99) 110 mg/dL (70-99) Calcium Level 8.7 mg/dL (8.5-10.1) 8.2 mg/dL (8.5-10.1) Phosphorus Level 3.1 mg/dL (2.6-4.7) Magnesium Level 1.6 mg/dL (1.8-2.4) Total Bilirubin 0.4 mg/dL (0.2-1.0) Aspartate Amino Transf (AST/SGOT) 10 U/L (15-37) Alanine Aminotransferase (ALT/SGPT) 14 U/L (14-59) Alkaline Phosphatase 90 U/L (46-116) Total Protein 6.9 g/dL (6.4-8.2) Albumin 3.4 g/dL (3.4-5.0) Albumin/Globulin Ratio 1.0 (1.0-1.7) Laboratory Tests Test 11/27/19 12:00 11/28/19 05:00 White Blood Count 5.1 x10^3/uL (4.0-11.0) 4.7 x10^3/uL (4.0-11.0) Red Blood Count 3.99 x10^6/uL (3.50-5.40) 3.68 x10^6/uL (3.50-5.40) Hemoglobin 13.0 g/dL (12.0-15.5) 12.0 g/dL (12.0-15.5) Hematocrit 37.1 % (36.0-47.0) 33.9 % (36.0-47.0) Mean Corpuscular Volume 93 fL (79-100) 92 fL (79-100) Mean Corpuscular Hemoglobin 33 pg (25-35) 33 pg (25-35) Mean Corpuscular Hemoglobin Concent 35 g/dL (31-37) 35 g/dL (31-37) Red Cell Distribution Width 13.1 % (11.5-14.5) 13.4 % (11.5-14.5) Platelet Count 136 x10^3/uL (140-400) 126 x10^3/uL (140-400) Neutrophils (%) (Auto) 69 % (31-73) 58 % (31-73) Lymphocytes (%) (Auto) 23 % (24-48) 31 % (24-48) Monocytes (%) (Auto) 8 % (0-9) 9 % (0-9) Eosinophils (%) (Auto) 1 % (0-3) 1 % (0-3) Basophils (%) (Auto) 0 % (0-3) 0 % (0-3) Neutrophils # (Auto) 3.5 x10^3/uL (1.8-7.7) 2.7 x10^3/uL (1.8-7.7) Lymphocytes # (Auto) 1.1 x10^3/uL (1.0-4.8) 1.5 x10^3/uL (1.0-4.8) Monocytes # (Auto) 0.4 x10^3/uL (0.0-1.1) 0.4 x10^3/uL (0.0-1.1) Eosinophils # (Auto) 0.0 x10^3/uL (0.0-0.7) 0.1 x10^3/uL (0.0-0.7) Basophils # (Auto) 0.0 x10^3/uL (0.0-0.2) 0.0 x10^3/uL (0.0-0.2) Sodium Level 136 mmol/L (136-145) 138 mmol/L (136-145) Potassium Level 4.2 mmol/L (3.5-5.1) 3.6 mmol/L (3.5-5.1) Chloride Level 102 mmol/L (98-107) 103 mmol/L (98-107) Carbon Dioxide Level 23 mmol/L (21-32) 26 mmol/L (21-32) Anion Gap 11 (6-14) 9 (6-14) Blood Urea Nitrogen 8 mg/dL (7-20) 10 mg/dL (7-20) Creatinine 0.6 mg/dL (0.6-1.0) 0.5 mg/dL (0.6-1.0) Estimated GFR (Cockcroft-Gault) 126.2 155.7 BUN/Creatinine Ratio 13 (6-20) Glucose Level 82 mg/dL (70-99) 110 mg/dL (70-99) Calcium Level 8.7 mg/dL (8.5-10.1) 8.2 mg/dL (8.5-10.1) Phosphorus Level 3.1 mg/dL (2.6-4.7) Magnesium Level 1.6 mg/dL (1.8-2.4) Total Bilirubin 0.4 mg/dL (0.2-1.0) Aspartate Amino Transf (AST/SGOT) 10 U/L (15-37) Alanine Aminotransferase (ALT/SGPT) 14 U/L (14-59) Alkaline Phosphatase 90 U/L (46-116) Total Protein 6.9 g/dL (6.4-8.2) Albumin 3.4 g/dL (3.4-5.0) Albumin/Globulin Ratio 1.0 (1.0-1.7) Problem List ? alf improvement--difficulty with j tube feeds chronic constipation--needs continued bowel regimen will review with Dr Santana Justicifation of Admission Dx: Justifications for Admission: Justification of Admission Dx: No TORIE SANTANA MD 11/28/19 1320: SURGICAL PROGRESS NOTE Assessment/Plan Pt seen and examined. Agree with Ms. Valle's note Pt with worsening discomfort and nausea, since tube feeds started. will stop tube feeds and need to fall back to TPN. Pt did have stool today no benefit to pyloroplasty if not tolerating tube feeds beyond pylorus. HANNAH VALLE APRN Nov 28, 2019 08:57 TORIE SANTANA MD Nov 28, 2019 13:20
--- NOTE | 2019-11-28 09:12 | PDOC ---
PROGRESS NOTES Chief Complaint Chief Complaint impression Persistent nausea despite the following : Severe gastroparesis (she has been seen at the [facility] and among other places) Status post GJ tube and she is on continuous pump of feeds at 60 cc an hour at home Cyclic vomiting syndrome rectal fecal impaction GJ tube Severe gastroparesis Cyclic vomiting syndrome G-tube (x 20), J-tube, GERD, hypertension, gastroparesis, cyclic vomiting, cholecystectomy, tonsillectomy. 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 Many GJ tubes - issues ww/ misplacement in the past and re-positioning w/ IR, though most recently conversion of gastrojejunostomy tube to gastrostomy tube and placement of jejunostomy tube by dr. Santana in 08/2019. H/o H. pylori treated twice. Last EGD 05/2019 showed misplacement of J-tube coiled in stomach. EGD 07/2018 was completely normal w/ no food and minimal fluid and widely patent pylorus. Biopsies negative for celiac and H. pylori. Colonoscopy 09/26/18 (for abnormal MRE suspicious for mild pancolitis) revealed no evidence of colitis and two 2-4mm adenomatous polyps in ascendign colon. GES normal in 08/2018, then abnormal in 08/2019 (below). MRCP 08/2018 w/ hepatic adenoma, normal sized liver, mild hepatic steatosis, and likely syrinx at T12. Successful ultrasound and fluoroscopically guided placement of a right internal jugular PowerPort 11/25 40 min pt exam, chart review, > 50% of time spent with exam, chart review, pt care coordination History of Present Illness History of Present Illness Ms Mustafa is a 19 yo F w/ PMHx IBS, GERD, cyclic vomiting syndrome s/p multiple GJ tubes - issues ww/ misplacement in the past and re-positioning w/ IR, though most recently conversion of gastrojejunostomy tube to gastrostomy tube and placement of jejunostomy tube by dr. Santana in 08/2019 who is admitted for wor sening nausea and vomiting as well as dizziness and room spinning when standing. Admitted with GI, general surgery, and neurology consultation. Abdominal XR shows constipation with probable fecal impaction. 73: Still with nausea and vomiting 7: Procalamine started, still with nausea 7/5: Still with nausea 7/6: Afebrile. She is still complaining of nausea to me. Requesting a py loroplasty with general surgery. We did discuss the potential of domperidone which is been discussed with her outpatient as well. Also we discussed digital disimpaction, initiated prefers this be done by nurse. Port placed 11/27 Benzodiazepines have not been tried for the nausea in the past, trial of ativan Afebrile. Had small stool after suppository. Starting on tube feeds per surgery with tentative plans in 2 weeks to consider pyloroplasty. Nausea is the same. Right-sided abdominal pain improved. Vitals Vitals Vital Signs Date Time Temp Pulse Resp B/P (MAP) Pulse Ox O2 Delivery O2 Flow Rate FiO2 11/28/19 07:22 Room Air 11/28/19 07:19 94 11/28/19 07:00 97.5 108 20 102/61 (75) 97.5 11/28/19 06:40 2.0 Physical Exam General: Alert, Oriented X3, Cooperative, No acute distress Heart: Regular rate Abdomen: Soft, Other (g tube to DD, j tube with feeds) Extremities: No clubbing, No cyanosis, No edema Skin: No rashes Labs LABS AP upright supine abdomen x-rays 2 views HISTORY: Mid abdominal pain for 2 days. FINDINGS: Lung bases unremarkable. No pneumoperitoneum. Post cystectomy clips. Moderate volume of stool within the colon and a prominent volume of stool density of the rectum with a diameter of 9 cm may indicate rectal fecal impaction. No small bowel obstruction evident with no dilated small bowel loops or abnormal air-fluid levels. Mild lumbar scoliosis left abdomen tube likely a percutaneous jejunostomy feeding tube. There is a separate gastrostomy tube as present on the prior CT study from November 19, 2019. IMPRESSION: Constipation with a moderate volume of stool and probable rectal fecal impaction. No small bowel obstruction. Electronically signed by: Ion Osullivan MD (11/21/2019 10:18 PM) [facility] DICTATED and SIGNED BY: ION OSULLIVAN MD DATE: 11/21/19 2218 OB: 2000 LOCATION: [address] [place] [address] AGE: 19 SEX: F EXAM STATUS: ADM IN ORD. PHYSICIAN: LALITHA WEBB III, DO REASON: needs PPN, unable to mantain IV PROCEDURE: [id number] PORT INSRT W/ SUBCU PORT Procedure: Ultrasound and fluoroscopically guided placement of right internal jugular power port.. 11/26/2019 2:00 PM Clinical Indication: Chronic malnutrition, history of gastroparesis. Intermittent but relatively frequent need for PPN/TPN. Difficult IV access. Sedation: Conscious sedation was administered for 40 minutes. The patient was monitored by a qualified independent observer throughout the time of sedation. Please refer to the medical record for exact doses of medications utilized to achieve moderate sedation. Fluoroscopy time: 0.3 minutes Dose area product: 0.4 Gycm2 Consent: The procedure was explained in its entirety to the patient or the patients designated career representative by a member of the treatment team, including a discussion of the risks, benefits and commonly accepted alternatives to the procedure, as well as the expected consequences of no therapy whatsoever. Discussion of the risks included, but was not limited to, those that are most frequent and those that are rare but possibly severe or life-threatening, as well as the possibility of unforeseen complications. Technique and Findings: All elements of maximal sterile barrier technique including the use of a cap, mask, sterile gown, sterile gloves, large sterile sheet, appropriate hand hygiene, and 2% chlorhexidine for cutaneous antisepsis (or acceptable alternative antiseptic per current guidelines) were followed for this procedure. Following informed consent, and a timeout procedure, the patient was prepped and draped in the usual sterile fashion. Ultrasound interrogation of the right neck revealed patency and compressibility of the right internal jugular vein. A 21-gauge micropuncture was then used to gain access to this vein under ultrasound guidance. A hard copy ultrasound image was recorded. The needle was exchanged over a wire for a sheath. A 1 inch incision was made several centimeters inferior to the venotomy site. A catheter was tunneled from this site dermatotomy site in the neck. Catheter was advanced through peel-away sheath such that its tip was in the proximal right atrium with the patient supine. The catheter was trimmed to length and connected to the port reservoir. The port was found to flush and aspirate normally. The wound was closed in layers using 4-0 Vicryl suture. Sterile dressings were applied. Impression: Successful ultrasound and fluoroscopically guided placement of a right internal jugular PowerPort DICTATED and SIGNED BY: ONEL LIZ MD DATE: 11/26/19 1600 Examination: BRAIN W/O CONTRAST History: Reason: Vertigo / Spl. Instructions: / History: Comparison/Correlation: None Findings: Multiplanar, multisequence images of the brain were obtained. Ventricles are normal size. No restricted diffusion to suggest acute infarct or other suspicious process. No mass effect or midline shift. Few high signal intensity foci involving the basal ganglia bilaterally are present likely representing perivascular spaces in measure up to 0.35 cm in maximum diameter. Naik-white matter differentiation is normal. Flow voids are seen within the visualized arterial vasculature and dural sinuses. Globes and optic nerves are unremarkable. Impression: Normal MRI of the brain without contrast. Electronically signed by: Frankie Padilla MD (11/24/2019 1:34 PM) [id number] DICTATED and SIGNED BY: FRANKIE PADILLA MD DATE: 11/24/19 1334 Laboratory Tests Test 11/27/19 12:00 11/28/19 05:00 White Blood Count 5.1 x10^3/uL (4.0-11.0) 4.7 x10^3/uL (4.0-11.0) Red Blood Count 3.99 x10^6/uL (3.50-5.40) 3.68 x10^6/uL (3.50-5.40) Hemoglobin 13.0 g/dL (12.0-15.5) 12.0 g/dL (12.0-15.5) Hematocrit 37.1 % (36.0-47.0) 33.9 % (36.0-47.0) Mean Corpuscular Volume 93 fL (79-100) 92 fL (79-100) Mean Corpuscular Hemoglobin 33 pg (25-35) 33 pg (25-35) Mean Corpuscular Hemoglobin Concent 35 g/dL (31-37) 35 g/dL (31-37) Red Cell Distribution Width 13.1 % (11.5-14.5) 13.4 % (11.5-14.5) Platelet Count 136 x10^3/uL (140-400) 126 x10^3/uL (140-400) Neutrophils (%) (Auto) 69 % (31-73) 58 % (31-73) Lymphocytes (%) (Auto) 23 % (24-48) 31 % (24-48) Monocytes (%) (Auto) 8 % (0-9) 9 % (0-9) Eosinophils (%) (Auto) 1 % (0-3) 1 % (0-3) Basophils (%) (Auto) 0 % (0-3) 0 % (0-3) Neutrophils # (Auto) 3.5 x10^3/uL (1.8-7.7) 2.7 x10^3/uL (1.8-7.7) Lymphocytes # (Auto) 1.1 x10^3/uL (1.0-4.8) 1.5 x10^3/uL (1.0-4.8) Monocytes # (Auto) 0.4 x10^3/uL (0.0-1.1) 0.4 x10^3/uL (0.0-1.1) Eosinophils # (Auto) 0.0 x10^3/uL (0.0-0.7) 0.1 x10^3/uL (0.0-0.7) Basophils # (Auto) 0.0 x10^3/uL (0.0-0.2) 0.0 x10^3/uL (0.0-0.2) Sodium Level 136 mmol/L (136-145) 138 mmol/L (136-145) Potassium Level 4.2 mmol/L (3.5-5.1) 3.6 mmol/L (3.5-5.1) Chloride Level 102 mmol/L (98-107) 103 mmol/L (98-107) Carbon Dioxide Level 23 mmol/L (21-32) 26 mmol/L (21-32) Anion Gap 11 (6-14) 9 (6-14) Blood Urea Nitrogen 8 mg/dL (7-20) 10 mg/dL (7-20) Creatinine 0.6 mg/dL (0.6-1.0) 0.5 mg/dL (0.6-1.0) Estimated GFR (Cockcroft-Gault) 126.2 155.7 BUN/Creatinine Ratio 13 (6-20) Glucose Level 82 mg/dL (70-99) 110 mg/dL (70-99) Calcium Level 8.7 mg/dL (8.5-10.1) 8.2 mg/dL (8.5-10.1) Phosphorus Level 3.1 mg/dL (2.6-4.7) Magnesium Level 1.6 mg/dL (1.8-2.4) Total Bilirubin 0.4 mg/dL (0.2-1.0) Aspartate Amino Transf (AST/SGOT) 10 U/L (15-37) Alanine Aminotransferase (ALT/SGPT) 14 U/L (14-59) Alkaline Phosphatase 90 U/L (46-116) Total Protein 6.9 g/dL (6.4-8.2) Albumin 3.4 g/dL (3.4-5.0) Albumin/Globulin Ratio 1.0 (1.0-1.7) Comment Review of Relevant I have reviewed the following items lalo (where applicable) has been applied. Labs Laboratory Tests Test 11/27/19 12:00 11/28/19 05:00 White Blood Count 5.1 x10^3/uL (4.0-11.0) 4.7 x10^3/uL (4.0-11.0) Red Blood Count 3.99 x10^6/uL (3.50-5.40) 3.68 x10^6/uL (3.50-5.40) Hemoglobin 13.0 g/dL (12.0-15.5) 12.0 g/dL (12.0-15.5) Hematocrit 37.1 % (36.0-47.0) 33.9 % (36.0-47.0) Mean Corpuscular Volume 93 fL (79-100) 92 fL (79-100) Mean Corpuscular Hemoglobin 33 pg (25-35) 33 pg (25-35) Mean Corpuscular Hemoglobin Concent 35 g/dL (31-37) 35 g/dL (31-37) Red Cell Distribution Width 13.1 % (11.5-14.5) 13.4 % (11.5-14.5) Platelet Count 136 x10^3/uL (140-400) 126 x10^3/uL (140-400) Neutrophils (%) (Auto) 69 % (31-73) 58 % (31-73) Lymphocytes (%) (Auto) 23 % (24-48) 31 % (24-48) Monocytes (%) (Auto) 8 % (0-9) 9 % (0-9) Eosinophils (%) (Auto) 1 % (0-3) 1 % (0-3) Basophils (%) (Auto) 0 % (0-3) 0 % (0-3) Neutrophils # (Auto) 3.5 x10^3/uL (1.8-7.7) 2.7 x10^3/uL (1.8-7.7) Lymphocytes # (Auto) 1.1 x10^3/uL (1.0-4.8) 1.5 x10^3/uL (1.0-4.8) Monocytes # (Auto) 0.4 x10^3/uL (0.0-1.1) 0.4 x10^3/uL (0.0-1.1) Eosinophils # (Auto) 0.0 x10^3/uL (0.0-0.7) 0.1 x10^3/uL (0.0-0.7) Basophils # (Auto) 0.0 x10^3/uL (0.0-0.2) 0.0 x10^3/uL (0.0-0.2) Sodium Level 136 mmol/L (136-145) 138 mmol/L (136-145) Potassium Level 4.2 mmol/L (3.5-5.1) 3.6 mmol/L (3.5-5.1) Chloride Level 102 mmol/L (98-107) 103 mmol/L (98-107) Carbon Dioxide Level 23 mmol/L (21-32) 26 mmol/L (21-32) Anion Gap 11 (6-14) 9 (6-14) Blood Urea Nitrogen 8 mg/dL (7-20) 10 mg/dL (7-20) Creatinine 0.6 mg/dL (0.6-1.0) 0.5 mg/dL (0.6-1.0) Estimated GFR (Cockcroft-Gault) 126.2 155.7 BUN/Creatinine Ratio 13 (6-20) Glucose Level 82 mg/dL (70-99) 110 mg/dL (70-99) Calcium Level 8.7 mg/dL (8.5-10.1) 8.2 mg/dL (8.5-10.1) Phosphorus Level 3.1 mg/dL (2.6-4.7) Magnesium Level 1.6 mg/dL (1.8-2.4) Total Bilirubin 0.4 mg/dL (0.2-1.0) Aspartate Amino Transf (AST/SGOT) 10 U/L (15-37) Alanine Aminotransferase (ALT/SGPT) 14 U/L (14-59) Alkaline Phosphatase 90 U/L (46-116) Total Protein 6.9 g/dL (6.4-8.2) Albumin 3.4 g/dL (3.4-5.0) Albumin/Globulin Ratio 1.0 (1.0-1.7) Laboratory Tests Test 11/27/19 12:00 11/28/19 05:00 White Blood Count 5.1 x10^3/uL (4.0-11.0) 4.7 x10^3/uL (4.0-11.0) Red Blood Count 3.99 x10^6/uL (3.50-5.40) 3.68 x10^6/uL (3.50-5.40) Hemoglobin 13.0 g/dL (12.0-15.5) 12.0 g/dL (12.0-15.5) Hematocrit 37.1 % (36.0-47.0) 33.9 % (36.0-47.0) Mean Corpuscular Volume 93 fL (79-100) 92 fL (79-100) Mean Corpuscular Hemoglobin 33 pg (25-35) 33 pg (25-35) Mean Corpuscular Hemoglobin Concent 35 g/dL (31-37) 35 g/dL (31-37) Red Cell Distribution Width 13.1 % (11.5-14.5) 13.4 % (11.5-14.5) Platelet Count 136 x10^3/uL (140-400) 126 x10^3/uL (140-400) Neutrophils (%) (Auto) 69 % (31-73) 58 % (31-73) Lymphocytes (%) (Auto) 23 % (24-48) 31 % (24-48) Monocytes (%) (Auto) 8 % (0-9) 9 % (0-9) Eosinophils (%) (Auto) 1 % (0-3) 1 % (0-3) Basophils (%) (Auto) 0 % (0-3) 0 % (0-3) Neutrophils # (Auto) 3.5 x10^3/uL (1.8-7.7) 2.7 x10^3/uL (1.8-7.7) Lymphocytes # (Auto) 1.1 x10^3/uL (1.0-4.8) 1.5 x10^3/uL (1.0-4.8) Monocytes # (Auto) 0.4 x10^3/uL (0.0-1.1) 0.4 x10^3/uL (0.0-1.1) Eosinophils # (Auto) 0.0 x10^3/uL (0.0-0.7) 0.1 x10^3/uL (0.0-0.7) Basophils # (Auto) 0.0 x10^3/uL (0.0-0.2) 0.0 x10^3/uL (0.0-0.2) Sodium Level 136 mmol/L (136-145) 138 mmol/L (136-145) Potassium Level 4.2 mmol/L (3.5-5.1) 3.6 mmol/L (3.5-5.1) Chloride Level 102 mmol/L (98-107) 103 mmol/L (98-107) Carbon Dioxide Level 23 mmol/L (21-32) 26 mmol/L (21-32) Anion Gap 11 (6-14) 9 (6-14) Blood Urea Nitrogen 8 mg/dL (7-20) 10 mg/dL (7-20) Creatinine 0.6 mg/dL (0.6-1.0) 0.5 mg/dL (0.6-1.0) Estimated GFR (Cockcroft-Gault) 126.2 155.7 BUN/Creatinine Ratio 13 (6-20) Glucose Level 82 mg/dL (70-99) 110 mg/dL (70-99) Calcium Level 8.7 mg/dL (8.5-10.1) 8.2 mg/dL (8.5-10.1) Phosphorus Level 3.1 mg/dL (2.6-4.7) Magnesium Level 1.6 mg/dL (1.8-2.4) Total Bilirubin 0.4 mg/dL (0.2-1.0) Aspartate Amino Transf (AST/SGOT) 10 U/L (15-37) Alanine Aminotransferase (ALT/SGPT) 14 U/L (14-59) Alkaline Phosphatase 90 U/L (46-116) Total Protein 6.9 g/dL (6.4-8.2) Albumin 3.4 g/dL (3.4-5.0) Albumin/Globulin Ratio 1.0 (1.0-1.7) Microbiology 11/21/19 Urine Culture - Final, Complete Medications Current Medications Sodium Chloride 1,000 ml @ 1,000 mls/hr 1X ONCE IV Last administered on 11/21/19at 21:06; Start 11/21/19 at 21:00; Stop 11/21/19 at 21:59; Status DC Famotidine (Pepcid Vial) 20 mg 1X ONCE IVP Last administered on 11/21/19at 21:08; Start 11/21/19 at 21:00; Stop 11/21/19 at 21:01; Status DC Morphine Sulfate (Morphine Sulfate) 2 mg 1X ONCE IV Last administered on 11/21/19at 21:09; Start 11/21/19 at 21:00; Stop 11/21/19 at 21:01; Status DC Prochlorperazine Edisylate (Compazine) 10 mg 1X ONCE IV Last administered on 11/21/19at 21:08; Start 11/21/19 at 21:00; Stop 11/21/19 at 21:01; Status DC Ondansetron HCl (Zofran) 4 mg PRN Q8HRS PRN IV NAUSEA/VOMITING 1ST CHOICE Last administered on 11/22/19at 16:26; Start 11/21/19 at 23:00; Stop 11/22/19 at 22:59; Status DC Morphine Sulfate (Morphine Sulfate) 2 mg 1X ONCE IV Last administered on 11/21/19at 23:28; Start 11/21/19 at 23:45; Stop 11/21/19 at 23:46; Status DC Morphine Sulfate (Morphine Sulfate) 2 mg PRN Q2HR PRN IV SEVERE PAIN 7-10 Last administered on 11/22/19 12:11; Start 11/22/19 at 01:45; Stop 11/22/19 at 13:25; Status DC Pantoprazole Sodium (PROTONIX VIAL for IV PUSH) 40 mg BIDAC IVP Last administered on 11/27/19 21:11; Start 11/22/19 at 12:00 Bisacodyl (Dulcolax Supp) 10 mg 1X ONCE [place] Last administered on 11/22/19 12:11; Start 11/22/19 at 12:00; Stop 11/22/19 at 12:01; Status DC Dicyclomine HCl (Bentyl) 10 mg PRN QID PRN PO GI SYMPTOMS; Start 11/22/19 at 13:30 Methylnaltrexone [place] (Relistor) 12 mg 1X ONCE SQ Last administered on 11/22/19 14:27; Start 11/22/19 at 14:00; Stop 11/22/19 at 14:01; Status DC Metoclopramide HCl (Reglan Vial) 10 mg PRN Q6HRS PRN IVP NAUSEA/VOMITING 3RD CHOICE Last administered on 11/28/19 06:39; Start 11/22/19 at 15:30 Morphine Sulfate (Morphine Sulfate) 2 mg PRN Q2HR PRN IV PAIN Last administered on 11/28/19 06:40; Start 11/22/19 at 17:00 Sodium Chloride 1,000 ml @ 75 mls/hr [id number] IV Last administered on 11/22/19 19:53; Start 11/22/19 at 20:00; Stop 11/22/19 at 20:11; Status DC Amino Acids/ Glycerin/ Electrolytes 1,000 ml @ 75 mls/hr [id number] IV Last administered on 11/27/19 08:48; Start 11/22/19 at 21:00; Stop 11/27/19 at 21:59; Status DC Ondansetron HCl (Zofran) 4 mg PRN Q6HRS PRN IVP NAUSEA/VOMITING 1ST CHOICE Last administered on 7/8/20at 05:01; Start 11/22/19 at 23:30 Prochlorperazine Edisylate (Compazine) 10 mg PRN Q6HRS PRN IV NAUSEA/VOMITING 2ND CHOICE Last administered on 11/28/19at 03:12; Start 11/22/19 at 23:30 Nystatin (Nystatin Oral Susp) 5 ml [id number] Last administered on 11/28/19at 08:02; Start 11/24/19 at 13:00 Lidocaine/ Epinephrine (LIDOCAINE 1%-EPI 1:100,000 Multi-Dose) 20 ml STK-MED ONCE .ROUTE ; Start 11/26/19 at 10:54; Stop 11/26/19 at 10:57; Status DC Cefazolin Sodium (Ancef) 1 gm STK-MED ONCE IVP ; Start 11/26/19 at 11:20; Stop 11/26/19 at 11:26; Status DC Midazolam HCl (Versed) 2 mg STK-MED ONCE .ROUTE ; Start 11/26/19 at 11:20; Stop 11/26/19 at 11:26; Status DC Fentanyl Citrate (Fentanyl 2ml Vial) 100 mcg STK-MED ONCE .ROUTE ; Start 11/26/19 at 11:21; Stop 11/26/19 at 11:26; Status DC Midazolam HCl (Versed) 2 mg 1X ONCE IV Last administered on 11/26/19at 11:38; Start 11/26/19 at 12:00; Stop 11/26/19 at 12:03; Status DC Fentanyl Citrate (Fentanyl 2ml Vial) 100 mcg 1X ONCE IV Last administered on 11/26/19at 12:00; Start 11/26/19 at 12:00; Stop 11/26/19 at 12:01 Lidocaine/ Epinephrine (LIDOCAINE 1%-EPI 1:100,000 Multi-Dose) 20 ml 1X ONCE SQ Last administered on 11/26/19at 12:00; Start 11/26/19 at 12:00; Stop 11/26/19 at 12:03; Status DC Cefazolin Sodium (Ancef) 1 gm 1X ONCE IVP Last administered on 11/26/19at 12:00; Start 11/26/19 at 12:00; Stop 11/26/19 at 12:03; Status DC Bisacodyl (Dulcolax Supp) 10 mg PRN DAILY PRN NJ CONSTIPATION, 1sT CHOICE Last administered on 11/26/19at 13:30; Start 11/26/19 at 13:30 Docusate Sodium (Enemeez) 283 mg PRN DAILY PRN [place] CONSTIPATION, 2nd CHOICE; Start 11/26/19 at 19:00 Diphenhydramine HCl (Benadryl) 12.5 mg 1X ONCE IV Last administered on 11/26/19at 23:13; Start 11/26/19 at 23:00; Stop 11/26/19 at 23:01; Status DC Info (Tpn Per Pharmacy) 1 each PRN DAILY PRN MC SEE COMMENTS; Start 11/27/19 at 09:30; Stop 11/27/19 at 09:55; Status DC Lorazepam (Ativan Inj) 0.5 mg PRN Q4HRS PRN IVP nausea; Start 11/27/19 at 13:45 Lorazepam (Ativan Inj) 1 mg PRN Q4HRS PRN IVP nausea; Start 11/27/19 at 13:45 Lorazepam (Ativan Inj) 2 mg PRN Q4HRS PRN IVP nausea; Start 11/27/19 at 13:45 Active Scripts Active Lactated Ringers (Ringers Solution,Lactated) 1,000 Ml Iv.soln 1,000 Ml IV DAILY Keflex (Cephalexin) 500 Mg Capsule 1 Cap PO TID 4 Days Miralax (Polyethylene Glycol 3350) 17 Gm Powd.pack 1 Packet PO DAILY 15 Days dissolve in water Hydrocodone-Apap 7.5-325/15 Soln (Hydrocodone Bit/Acetaminophen) 15 Ml Solution 15 Ml JT PRN Q6HRS PRN Reported Advair Hfa 230-21 Mcg Inhaler (Fluticasone/Salmeterol) 12 Gm Hfa.aer.ad 1 Inh IH BID Buspirone Hcl 10 Mg Tablet 0.5 Tab PO BID Reglan (Metoclopramide Hcl) 10 Mg Tablet 10 Mg PO QIDACHS Zelnorm (Tegaserod Hydrogen Maleate) 6 Mg Tablet 6 Mg GT BID Amitriptyline Hcl 75 Mg Tablet 75 Mg PO QHS Dicyclomine Hcl 20 Mg Tablet 20 Mg GT PRN QID PRN Stool Softener (Docusate Sodium) 50 Mg Capsule 50 Mg PO PRN HS Olopatadine HCl 5 Ml Drops 0.1 % OP PRN DAILY PRN Promethazine Hcl 12.5 Mg Tablet 25 Mg GT Q6H PRN Trazodone Hcl 50 Mg Tablet 50 Mg GT HS Maxalt (Rizatriptan Benzoate) 10 Mg Tablet 5 Mg GT PRN DAILY PRN Valproic Acid (Valproate Sodium) 250 Mg/5 Ml Solution 15 Ml PO BID Coq-10 (Ubidecarenone) 100 Mg Capsule 200 Mg GT DAILY Vitamin D3 (Cholecalciferol (Vitamin D3)) 4,000 Unit Capsule 2,000 Unit PO HS Xyzal (Levocetirizine Dihydrochloride) 5 Mg Tablet 5 Mg GT HS Proair Hfa (Albuterol Sulfate) 8.5 Gm Hfa.aer.ad 2 Puff IH PRN Q4-6HRS PRN 21 Days Ipratropium [place] 30 Ml Quinlan 1 Quinlan NS DAILY Duoneb 0.5-3(2.5) Mg/3 Ml (Albuterol/Ipratropium) 3 Ml Ampul.neb 3 Ml NEB PRN QID PRN Protonix (Pantoprazole Sodium) 20 Mg Tablet. 40 Mg GT HS Montelukast Sodium Tablet (Montelukast Sodium) 10 Mg Tablet 10 Mg GT DAILY PRN Magnesium Oxide 250 Mg Tablet 1 Tab PO DAILY 30 Days Multi Vitamin Daily (Multivitamin) 1 Each Tablet 1 Each GT DAILY Metoprolol Tartrate 50 Mg Tablet 50 Mg GT BID Vitals/I & O Vital Sign - Last 24 Hours 11/27/19 11/27/19 11/27/19 11/27/19 09:40 11:01 11:27 14:19 Temp 98.0 98.0 Pulse 102 Resp 18 B/P (MAP) 101/70 (80) Pulse Ox 94 94 O2 Delivery Room Air Room Air Room Air Room Air 11/27/19 11/27/19 11/27/19 11/27/19 15:01 15:11 15:41 17:59 Temp 98.3 98.3 Pulse 114 Resp 18 B/P (MAP) 118/68 (85) Pulse Ox 96 96 96 96 O2 Delivery Room Air Room Air Room Air Room Air 11/27/19 11/27/19 11/27/19 11/27/19 18:41 19:00 21:11 21:41 Temp 97.9 97.9 Pulse 100 Resp 18 18 17 B/P (MAP) 107/62 (77) Pulse Ox 96 95 95 95 O2 Delivery Room Air Room Air Room Air Room Air O2 Flow Rate 2.0 2.0 11/27/19 11/28/19 11/28/19 11/28/19 23:00 03:12 03:42 06:40 Temp 98.4 98.4 Pulse 109 Resp 18 18 17 17 B/P (MAP) 122/80 (94) Pulse Ox 94 94 94 94 O2 Delivery Room Air Room Air Room Air Room Air O2 Flow Rate 2.0 2.0 2.0 11/28/19 11/28/19 11/28/19 07:00 07:19 07:22 Temp 97.5 97.5 Pulse 108 Resp 20 B/P (MAP) 102/61 (75) Pulse Ox 96 94 O2 Delivery Room Air Room Air Room Air Intake and Output 11/27/19 11/27/19 11/28/19 15:00 23:00 07:00 Intake Total 300 ml Balance 300 ml Justicifation of Admission Dx: Justifications for Admission: Justification of Admission Dx: No JEFFERSON XAVIER MD Nov 28, 2019 09:12
--- NOTE | 2019-11-28 10:10 | NUR ---
Per telesales supervisor Roxie John, we are using Osmolite 1.2 instead of 1.5.
[2019-11-28 11:00] VITALS: BP 95/61
[2019-11-28] MEDS: POTASSIUM & SODIUM PHOSPHATES PACKET. PO SCH ×2 (11:00→21:25)
[2019-11-28] MEDS ORDERED: POTASSIUM CHLORIDE 10MEQ 100 ML IV PRN ×2 (11:00)
--- NOTE | 2019-11-28 11:23 | PDOC ---
G I PROGRESS NOTE Subjective Still nauseated on tube feeding. Spontaneous stool this morning. Objective Did not receive Ativan yesterday. Physical Exam Lungs clear. RRR Abdomen soft, not distended. Review of Relevant I have reviewed the following items lalo (where applicable) has been applied. Labs Laboratory Tests Test 11/27/19 12:00 11/28/19 05:00 White Blood Count 5.1 x10^3/uL (4.0-11.0) 4.7 x10^3/uL (4.0-11.0) Red Blood Count 3.99 x10^6/uL (3.50-5.40) 3.68 x10^6/uL (3.50-5.40) Hemoglobin 13.0 g/dL (12.0-15.5) 12.0 g/dL (12.0-15.5) Hematocrit 37.1 % (36.0-47.0) 33.9 % (36.0-47.0) Mean Corpuscular Volume 93 fL (79-100) 92 fL (79-100) Mean Corpuscular Hemoglobin 33 pg (25-35) 33 pg (25-35) Mean Corpuscular Hemoglobin Concent 35 g/dL (31-37) 35 g/dL (31-37) Red Cell Distribution Width 13.1 % (11.5-14.5) 13.4 % (11.5-14.5) Platelet Count 136 x10^3/uL (140-400) 126 x10^3/uL (140-400) Neutrophils (%) (Auto) 69 % (31-73) 58 % (31-73) Lymphocytes (%) (Auto) 23 % (24-48) 31 % (24-48) Monocytes (%) (Auto) 8 % (0-9) 9 % (0-9) Eosinophils (%) (Auto) 1 % (0-3) 1 % (0-3) Basophils (%) (Auto) 0 % (0-3) 0 % (0-3) Neutrophils # (Auto) 3.5 x10^3/uL (1.8-7.7) 2.7 x10^3/uL (1.8-7.7) Lymphocytes # (Auto) 1.1 x10^3/uL (1.0-4.8) 1.5 x10^3/uL (1.0-4.8) Monocytes # (Auto) 0.4 x10^3/uL (0.0-1.1) 0.4 x10^3/uL (0.0-1.1) Eosinophils # (Auto) 0.0 x10^3/uL (0.0-0.7) 0.1 x10^3/uL (0.0-0.7) Basophils # (Auto) 0.0 x10^3/uL (0.0-0.2) 0.0 x10^3/uL (0.0-0.2) Sodium Level 136 mmol/L (136-145) 138 mmol/L (136-145) Potassium Level 4.2 mmol/L (3.5-5.1) 3.6 mmol/L (3.5-5.1) Chloride Level 102 mmol/L (98-107) 103 mmol/L (98-107) Carbon Dioxide Level 23 mmol/L (21-32) 26 mmol/L (21-32) Anion Gap 11 (6-14) 9 (6-14) Blood Urea Nitrogen 8 mg/dL (7-20) 10 mg/dL (7-20) Creatinine 0.6 mg/dL (0.6-1.0) 0.5 mg/dL (0.6-1.0) Estimated GFR (Cockcroft-Gault) 126.2 155.7 BUN/Creatinine Ratio 13 (6-20) Glucose Level 82 mg/dL (70-99) 110 mg/dL (70-99) Calcium Level 8.7 mg/dL (8.5-10.1) 8.2 mg/dL (8.5-10.1) Phosphorus Level 3.1 mg/dL (2.6-4.7) Magnesium Level 1.6 mg/dL (1.8-2.4) Total Bilirubin 0.4 mg/dL (0.2-1.0) Aspartate Amino Transf (AST/SGOT) 10 U/L (15-37) Alanine Aminotransferase (ALT/SGPT) 14 U/L (14-59) Alkaline Phosphatase 90 U/L (46-116) Total Protein 6.9 g/dL (6.4-8.2) Albumin 3.4 g/dL (3.4-5.0) Albumin/Globulin Ratio 1.0 (1.0-1.7) Laboratory Tests Test 11/27/19 12:00 11/28/19 05:00 White Blood Count 5.1 x10^3/uL (4.0-11.0) 4.7 x10^3/uL (4.0-11.0) Red Blood Count 3.99 x10^6/uL (3.50-5.40) 3.68 x10^6/uL (3.50-5.40) Hemoglobin 13.0 g/dL (12.0-15.5) 12.0 g/dL (12.0-15.5) Hematocrit 37.1 % (36.0-47.0) 33.9 % (36.0-47.0) Mean Corpuscular Volume 93 fL (79-100) 92 fL (79-100) Mean Corpuscular Hemoglobin 33 pg (25-35) 33 pg (25-35) Mean Corpuscular Hemoglobin Concent 35 g/dL (31-37) 35 g/dL (31-37) Red Cell Distribution Width 13.1 % (11.5-14.5) 13.4 % (11.5-14.5) Platelet Count 136 x10^3/uL (140-400) 126 x10^3/uL (140-400) Neutrophils (%) (Auto) 69 % (31-73) 58 % (31-73) Lymphocytes (%) (Auto) 23 % (24-48) 31 % (24-48) Monocytes (%) (Auto) 8 % (0-9) 9 % (0-9) Eosinophils (%) (Auto) 1 % (0-3) 1 % (0-3) Basophils (%) (Auto) 0 % (0-3) 0 % (0-3) Neutrophils # (Auto) 3.5 x10^3/uL (1.8-7.7) 2.7 x10^3/uL (1.8-7.7) Lymphocytes # (Auto) 1.1 x10^3/uL (1.0-4.8) 1.5 x10^3/uL (1.0-4.8) Monocytes # (Auto) 0.4 x10^3/uL (0.0-1.1) 0.4 x10^3/uL (0.0-1.1) Eosinophils # (Auto) 0.0 x10^3/uL (0.0-0.7) 0.1 x10^3/uL (0.0-0.7) Basophils # (Auto) 0.0 x10^3/uL (0.0-0.2) 0.0 x10^3/uL (0.0-0.2) Sodium Level 136 mmol/L (136-145) 138 mmol/L (136-145) Potassium Level 4.2 mmol/L (3.5-5.1) 3.6 mmol/L (3.5-5.1) Chloride Level 102 mmol/L (98-107) 103 mmol/L (98-107) Carbon Dioxide Level 23 mmol/L (21-32) 26 mmol/L (21-32) Anion Gap 11 (6-14) 9 (6-14) Blood Urea Nitrogen 8 mg/dL (7-20) 10 mg/dL (7-20) Creatinine 0.6 mg/dL (0.6-1.0) 0.5 mg/dL (0.6-1.0) Estimated GFR (Cockcroft-Gault) 126.2 155.7 BUN/Creatinine Ratio 13 (6-20) Glucose Level 82 mg/dL (70-99) 110 mg/dL (70-99) Calcium Level 8.7 mg/dL (8.5-10.1) 8.2 mg/dL (8.5-10.1) Phosphorus Level 3.1 mg/dL (2.6-4.7) Magnesium Level 1.6 mg/dL (1.8-2.4) Total Bilirubin 0.4 mg/dL (0.2-1.0) Aspartate Amino Transf (AST/SGOT) 10 U/L (15-37) Alanine Aminotransferase (ALT/SGPT) 14 U/L (14-59) Alkaline Phosphatase 90 U/L (46-116) Total Protein 6.9 g/dL (6.4-8.2) Albumin 3.4 g/dL (3.4-5.0) Albumin/Globulin Ratio 1.0 (1.0-1.7) Microbiology 11/21/19 Urine Culture - Final, Complete Vitals/I & O Vital Sign - Last 24 Hours 11/27/19 11/27/19 11/27/19 11/27/19 11:27 14:19 15:01 15:11 Temp 98.3 98.3 Pulse 114 Resp 18 B/P (MAP) 118/68 (85) Pulse Ox 94 96 96 O2 Delivery Room Air Room Air Room Air Room Air 11/27/19 11/27/19 11/27/19 11/27/19 15:41 17:59 18:41 19:00 Temp 97.9 97.9 Pulse 100 Resp 18 B/P (MAP) 107/62 (77) Pulse Ox 96 96 96 95 O2 Delivery Room Air Room Air Room Air Room Air 11/27/19 11/27/19 11/27/19 11/28/19 21:11 21:41 23:00 03:12 Temp 98.4 98.4 Pulse 109 Resp 18 17 18 18 B/P (MAP) 122/80 (94) Pulse Ox 95 95 94 94 O2 Delivery Room Air Room Air Room Air Room Air O2 Flow Rate 2.0 2.0 2.0 11/28/19 11/28/19 11/28/19 11/28/19 03:42 06:40 07:00 07:19 Temp 97.5 97.5 Pulse 108 Resp 17 17 20 B/P (MAP) 102/61 (75) Pulse Ox 94 94 96 94 O2 Delivery Room Air Room Air Room Air Room Air O2 Flow Rate 2.0 2.0 11/28/19 07:22 O2 Delivery Room Air Intake and Output 11/27/19 11/27/19 11/28/19 15:00 23:00 07:00 Intake Total 300 ml Balance 300 ml Assessment Gastroparesis by last GES. Nausea. Constipation, though did stool today w/o suppository. Plan of Care Note Spoke with staff; try the Ativan for nausea first. Will add some MOM per tube daily. Even if no pyloroplasty, needs to be on some stable nutrition before discharge. Justicifation of Admission Dx: Justifications for Admission: Justification of Admission Dx: No GEORGES DONNELLY MD Nov 28, 2019 11:23
[2019-11-28] MEDS: MAGNESIUM SULFATE 2GM 50 ML IV SCH (11:53)
[2019-11-28] MEDS: MAGNESIUM HYDROXIDE 2,400 MG/30 ML ORAL.SUSP. JT SCH (11:54)
--- NOTE | 2019-11-28 13:39 | NUR ---
SW following. Discussed with RN, pt on tube feeds per surgery with tentative plans in 2 weeks to consider pyloroplasty. Per Dr. Doyle, pt needs to be on stable nutrition before discharge. SW will continue to follow.
[2019-11-28] MEDS: TPN PER PHARMACY MC PRN (14:50)
--- NOTE | 2019-11-28 14:56 | NUR ---
Pharmacy TPN Dosing Note S: SUNITHA SCHULTZ is a 19 year old F Currently receiving Central Continuous TPN started 11/28/19 B:Pertinent PMH: NPO Height: 5 feet, 7 inches Weight: 75.672314 kg Current diet: TF/NOT TOLERATED LABS: Sodium: 138 Potassium: 3.6 Chloride: 103 Calcium: 8.2 Corrected Calcium: Magnesium: 1.6 CO2: 26 SCr: 0.5 Glucose: 110 Albumin: AST: ALT: TPN FORMULA: TPN TYPE: Central Continuous AMINO ACIDS: 60 gm DEXTROSE: 195 gm LIPIDS: 20 gm SODIUM CHLORIDE: 90 mEq SODIUM ACETATE: mEq SODIUM PHOSPHATE: mmol POTASSIUM CHLORIDE: 50 mEq POTASSIUM ACETATE: mEq POTASSIUM PHOSPHATE: 13.6 mmol MAGNESIUM: 10 mEq CALCIUM: 10 mEq INSULIN: units MULTIPLE VITAMIN: 10 ml TRACE ELEMENTS: 1 ml(s) TPN PLAN: HOUSE TPN. LAB IN AM. R: Begin TPN at 63ml/hr Will monitor electrolytes, glucose, and tolerance to TPN. CYDNEY ELLIS FORMERLY [facility] [place], 11/28/19 9028
[2019-11-28 15:00] VITALS: BP 98/64
[2019-11-28] MEDS: PANTOPRAZOLE IV PUSH 40 MG VIAL. IVP SCH (15:35)
[2019-11-28 19:00] VITALS: BP 107/58
[2019-11-28] MEDS ORDERED: TOTAL PARENTERAL NUTRITION 1,424.9614 ML, AMINO ACID 15% 60 GM, DEXTROSE 70 % IN WATER ... IV SCH (22:00)
[2019-11-28 23:00] VITALS: BP 100/61
[2019-11-29] MEDS: PROCHLORPERAZINE 10 MG/2 ML VIAL. IV PRN ×3 (02:50→18:03)
[2019-11-29] MEDS: MORPHINE SULFATE 2 MG/ML VIAL. IV PRN ×5 (02:51→20:15)
[2019-11-29 03:00] VITALS: BP 109/73
[2019-11-29 05:25] LABS: MAGNESIUM 1.6 mg/dL (1.8-2.4); PHOSPHORUS 3.7 mg/dL (2.6-4.7)
[2019-11-29 07:00] VITALS: BP 91/55
[2019-11-29] MEDS: PANTOPRAZOLE IV PUSH 40 MG VIAL. IVP SCH ×2 (08:45→16:30)
[2019-11-29] MEDS: MAGNESIUM HYDROXIDE 2,400 MG/30 ML ORAL.SUSP. JT SCH (08:46)
[2019-11-29] MEDS: NYSTATIN 100,000 UNITS/ML 5 ML ORAL.SUSP. SWSW SCH ×4 (08:47→21:48)
--- NOTE | 2019-11-29 10:25 | PDOC ---
SURGICAL PROGRESS NOTE Subjective feels better now with TF stopped asking about discharge Vital Signs Vital Signs Date Time Temp Pulse Resp B/P (MAP) Pulse Ox O2 Delivery O2 Flow Rate FiO2 11/29/19 08:56 Room Air 11/29/19 07:00 98.2 105 16 91/55 (67) 95 98.2 11/29/19 03:21 2.0 I&O Intake and Output 11/29/19 07:00 Intake Total 150 ml Balance 150 ml Tube Feeding 150 ml # Voids 1 General: Alert, Oriented X3, Cooperative Abdomen: Soft, Other (g tube to DD) Labs Laboratory Tests Test 11/27/19 12:00 11/28/19 05:00 11/29/19 00:14 11/29/19 03:30 White Blood Count 5.1 x10^3/uL (4.0-11.0) 4.7 x10^3/uL (4.0-11.0) Red Blood Count 3.99 x10^6/uL (3.50-5.40) 3.68 x10^6/uL (3.50-5.40) Hemoglobin 13.0 g/dL (12.0-15.5) 12.0 g/dL (12.0-15.5) Hematocrit 37.1 % (36.0-47.0) 33.9 % (36.0-47.0) Mean Corpuscular Volume 93 fL (79-100) 92 fL (79-100) Mean Corpuscular Hemoglobin 33 pg (25-35) 33 pg (25-35) Mean Corpuscular Hemoglobin Concent 35 g/dL (31-37) 35 g/dL (31-37) Red Cell Distribution Width 13.1 % (11.5-14.5) 13.4 % (11.5-14.5) Platelet Count 136 x10^3/uL (140-400) 126 x10^3/uL (140-400) Neutrophils (%) (Auto) 69 % (31-73) 58 % (31-73) Lymphocytes (%) (Auto) 23 % (24-48) 31 % (24-48) Monocytes (%) (Auto) 8 % (0-9) 9 % (0-9) Eosinophils (%) (Auto) 1 % (0-3) 1 % (0-3) Basophils (%) (Auto) 0 % (0-3) 0 % (0-3) Neutrophils # (Auto) 3.5 x10^3/uL (1.8-7.7) 2.7 x10^3/uL (1.8-7.7) Lymphocytes # (Auto) 1.1 x10^3/uL (1.0-4.8) 1.5 x10^3/uL (1.0-4.8) Monocytes # (Auto) 0.4 x10^3/uL (0.0-1.1) 0.4 x10^3/uL (0.0-1.1) Eosinophils # (Auto) 0.0 x10^3/uL (0.0-0.7) 0.1 x10^3/uL (0.0-0.7) Basophils # (Auto) 0.0 x10^3/uL (0.0-0.2) 0.0 x10^3/uL (0.0-0.2) Sodium Level 136 mmol/L (136-145) 138 mmol/L (136-145) Potassium Level 4.2 mmol/L (3.5-5.1) 3.6 mmol/L (3.5-5.1) Chloride Level 102 mmol/L (98-107) 103 mmol/L (98-107) Carbon Dioxide Level 23 mmol/L (21-32) 26 mmol/L (21-32) Anion Gap 11 (6-14) 9 (6-14) Blood Urea Nitrogen 8 mg/dL (7-20) 10 mg/dL (7-20) Creatinine 0.6 mg/dL (0.6-1.0) 0.5 mg/dL (0.6-1.0) Estimated GFR (Cockcroft-Gault) 126.2 155.7 BUN/Creatinine Ratio 13 (6-20) Glucose Level 82 mg/dL (70-99) 110 mg/dL (70-99) Calcium Level 8.7 mg/dL (8.5-10.1) 8.2 mg/dL (8.5-10.1) Phosphorus Level 3.1 mg/dL (2.6-4.7) 3.7 mg/dL (2.6-4.7) Magnesium Level 1.6 mg/dL (1.8-2.4) 1.6 mg/dL (1.8-2.4) Total Bilirubin 0.4 mg/dL (0.2-1.0) Aspartate Amino Transf (AST/SGOT) 10 U/L (15-37) Alanine Aminotransferase (ALT/SGPT) 14 U/L (14-59) Alkaline Phosphatase 90 U/L (46-116) Total Protein 6.9 g/dL (6.4-8.2) Albumin 3.4 g/dL (3.4-5.0) Albumin/Globulin Ratio 1.0 (1.0-1.7) Glucose (Fingerstick) 116 mg/dL (70-99) Test 11/29/19 06:06 11/29/19 07:30 Glucose (Fingerstick) 99 mg/dL (70-99) 112 mg/dL (70-99) Laboratory Tests Test 11/29/19 00:14 11/29/19 03:30 11/29/19 06:06 11/29/19 07:30 Glucose (Fingerstick) 116 mg/dL (70-99) 99 mg/dL (70-99) 112 mg/dL (70-99) Phosphorus Level 3.7 mg/dL (2.6-4.7) Magnesium Level 1.6 mg/dL (1.8-2.4) Problem List will need superintendent terminal tpn set up--we can manage as outpt Justicifation of Admission Dx: Justifications for Admission: Justification of Admission Dx: No HANNAH VALLE [employer] Nov 29, 2019 10:25
--- NOTE | 2019-11-29 10:57 | PDOC ---
PROGRESS NOTES Chief Complaint Chief Complaint impression Persistent nausea despite the following : Severe gastroparesis (she has been seen at the [facility] and among other places) Status post GJ tube and she WAS on continuous pump of feeds at 60 cc an hour at home NOW ON HOLD Cyclic vomiting syndrome rectal fecal impaction GJ tube Severe gastroparesis Cyclic vomiting syndrome G-tube (x 20), J-tube, GERD, hypertension, gastroparesis, cyclic vomiting, cholecystectomy, tonsillectomy. 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 Many GJ tubes - issues ww/ misplacement in the past and re-positioning w/ IR, though most recently conversion of gastrojejunostomy tube to gastrostomy tube and placement of jejunostomy tube by dr. Santana in 08/2019. H/o H. pylori treated twice. Last EGD 05/2019 showed misplacement of J-tube coiled in stomach. EGD 07/2018 was completely normal w/ no food and minimal fluid and widely patent pylorus. Biopsies negative for celiac and H. pylori. Colonoscopy 09/26/18 (for abnormal MRE suspicious for mild pancolitis) revealed no evidence of colitis and two 2-4mm adenomatous polyps in ascendign colon. GES normal in 08/2018, then abnormal in 08/2019 (below). MRCP 08/2018 w/ hepatic adenoma, normal sized liver, mild hepatic steatosis, and likely syrinx at T12. Successful ultrasound and fluoroscopically guided placement of a right internal jugular PowerPort 11/25 depression PLAN TPN PT/OT PSYCH CONSULT 37 min pt exam, chart review, > 50% of time spent with exam, chart review, pt care coordination History of Present Illness History of Present Illness Ms Mustafa is a 19 yo F w/ PMHx IBS, GERD, cyclic vomiting syndrome s/p multiple GJ tubes - issues ww/ misplacement in the past and re-positioning w/ IR, though most recently conversion of gastrojejunostomy tube to gastrostomy tube and placement of jejunostomy tube by dr. Santana in 08/2019 who is admitted for worsening nausea and vomiting as well as dizziness and room spinning when standing. Admitted with GI, general surgery, and neurology consultation. Abdominal XR shows constipation with probable fecal impaction. 11/22: Still with nausea and vomiting 11/23: Procalamine started, still with nausea 7: Still with nausea 76: Afebrile. She is still complaining of nausea to me. Requesting a pyloroplasty with general surgery. We did discuss the potential of domperidone which is been discussed with her outpatient as well. Also we discussed digital disimpaction, initiated prefers this be done by nurse. Port placed 11/27 Benzodiazepines have not been tried for the nausea in the past, trial of ativan Afebrile. Had small stool after suppository. Starting on tube feeds per surgery with tentative plans in 2 weeks to consider pyloroplasty. Nausea is the same. Right-sided abdominal pain improved. Vitals Vitals Vital Signs Date Time Temp Pulse Resp B/P (MAP) Pulse Ox O2 Delivery O2 Flow Rate FiO2 11/29/19 08:56 Room Air 11/29/19 07:00 98.2 105 16 91/55 (67) 95 98.2 11/29/19 03:21 2.0 Physical Exam General: Alert, Oriented X3, Cooperative, No acute distress Heart: Regular rate Lungs: Clear Abdomen: Normal bowel sounds, Soft, Other (g tube to DD) Extremities: No clubbing, No cyanosis, No edema Skin: No rashes Labs LABS History: Reason: Vertigo / Spl. Instructions: / History: Comparison/Correlation: None Findings: Multiplanar, multisequence images of the brain were obtained. Ventricles are normal size. No restricted diffusion to suggest acute infarct or other suspicious process. No mass effect or midline shift. Few high signal intensity foci involving the basal ganglia bilaterally are present likely representing perivascular spaces in measure up to 0.35 cm in maximum diameter. Naik-white matter differentiation is normal. Flow voids are seen within the visualized arterial vasculature and dural sinuses. Globes and optic nerves are unremarkable. Impression: Normal MRI of the brain without contrast. Electronically signed by: Frankie Padilla MD (11/24/2019 1:34 PM) [id number] DICTATED and SIGNED BY: FRANKIE PADILLA MD Clinical Indication: Chronic malnutrition, history of gastroparesis. Intermittent but relatively frequent need for PPN/TPN. Difficult IV access. Sedation: Conscious sedation was administered for 40 minutes. The patient was monitored by a qualified independent observer throughout the time of sedation. Please refer to the medical record for exact doses of medications utilized to achieve moderate sedation. Fluoroscopy time: 0.3 minutes Dose area product: 0.4 Gycm2 Consent: The procedure was explained in its entirety to the patient or the patients designated congressional representative by a member of the treatment team, including a discussion of the risks, benefits and commonly accepted alternatives to the procedure, as well as the expected consequences of no therapy whatsoever. Discussion of the risks included, but was not limited to, those that are most frequent and those that are rare but possibly severe or life-threatening, as well as the possibility of unforeseen complications. Technique and Findings: All elements of maximal sterile barrier technique including the use of a cap, mask, sterile gown, sterile gloves, large sterile sheet, appropriate hand hygiene, and 2% chlorhexidine for cutaneous antisepsis (or acceptable alternative antiseptic per current guidelines) were followed for this procedure. Following informed consent, and a timeout procedure, the patient was prepped and draped in the usual sterile fashion. Ultrasound interrogation of the right neck revealed patency and compressibility of the right internal jugular vein. A 21-gauge micropuncture was then used to gain access to this vein under ultrasound guidance. A hard copy ultrasound image was recorded. The needle was exchanged over a wire for a sheath. A 1 inch incision was made several centimeters inferior to the venotomy site. A catheter was tunneled from this site dermatotomy site in the neck. Catheter was advanced through peel-away sheath such that its tip was in the proximal right atrium with the patient supine. The catheter was trimmed to length and connected to the port reservoir. The port was found to flush and aspirate normally. The wound was closed in layers using 4-0 Vicryl suture. Sterile dressings were applied. Impression: Successful ultrasound and fluoroscopically guided placement of a right internal jugular PowerPort DICTATED and SIGNED BY: ONEL LIZ MD DATE: 11/26/19 1600 Laboratory Tests Test 11/29/19 00:14 11/29/19 03:30 11/29/19 06:06 11/29/19 07:30 Glucose (Fingerstick) 116 mg/dL (70-99) 99 mg/dL (70-99) 112 mg/dL (70-99) Phosphorus Level 3.7 mg/dL (2.6-4.7) Magnesium Level 1.6 mg/dL (1.8-2.4) Comment Review of Relevant I have reviewed the following items lalo (where applicable) has been applied. Labs Laboratory Tests Test 11/27/19 12:00 11/28/19 05:00 11/29/19 00:14 11/29/19 03:30 White Blood Count 5.1 x10^3/uL (4.0-11.0) 4.7 x10^3/uL (4.0-11.0) Red Blood Count 3.99 x10^6/uL (3.50-5.40) 3.68 x10^6/uL (3.50-5.40) Hemoglobin 13.0 g/dL (12.0-15.5) 12.0 g/dL (12.0-15.5) Hematocrit 37.1 % (36.0-47.0) 33.9 % (36.0-47.0) Mean Corpuscular Volume 93 fL (79-100) 92 fL (79-100) Mean Corpuscular Hemoglobin 33 pg (25-35) 33 pg (25-35) Mean Corpuscular Hemoglobin Concent 35 g/dL (31-37) 35 g/dL (31-37) Red Cell Distribution Width 13.1 % (11.5-14.5) 13.4 % (11.5-14.5) Platelet Count 136 x10^3/uL (140-400) 126 x10^3/uL (140-400) Neutrophils (%) (Auto) 69 % (31-73) 58 % (31-73) Lymphocytes (%) (Auto) 23 % (24-48) 31 % (24-48) Monocytes (%) (Auto) 8 % (0-9) 9 % (0-9) Eosinophils (%) (Auto) 1 % (0-3) 1 % (0-3) Basophils (%) (Auto) 0 % (0-3) 0 % (0-3) Neutrophils # (Auto) 3.5 x10^3/uL (1.8-7.7) 2.7 x10^3/uL (1.8-7.7) Lymphocytes # (Auto) 1.1 x10^3/uL (1.0-4.8) 1.5 x10^3/uL (1.0-4.8) Monocytes # (Auto) 0.4 x10^3/uL (0.0-1.1) 0.4 x10^3/uL (0.0-1.1) Eosinophils # (Auto) 0.0 x10^3/uL (0.0-0.7) 0.1 x10^3/uL (0.0-0.7) Basophils # (Auto) 0.0 x10^3/uL (0.0-0.2) 0.0 x10^3/uL (0.0-0.2) Sodium Level 136 mmol/L (136-145) 138 mmol/L (136-145) Potassium Level 4.2 mmol/L (3.5-5.1) 3.6 mmol/L (3.5-5.1) Chloride Level 102 mmol/L (98-107) 103 mmol/L (98-107) Carbon Dioxide Level 23 mmol/L (21-32) 26 mmol/L (21-32) Anion Gap 11 (6-14) 9 (6-14) Blood Urea Nitrogen 8 mg/dL (7-20) 10 mg/dL (7-20) Creatinine 0.6 mg/dL (0.6-1.0) 0.5 mg/dL (0.6-1.0) Estimated GFR (Cockcroft-Gault) 126.2 155.7 BUN/Creatinine Ratio 13 (6-20) Glucose Level 82 mg/dL (70-99) 110 mg/dL (70-99) Calcium Level 8.7 mg/dL (8.5-10.1) 8.2 mg/dL (8.5-10.1) Phosphorus Level 3.1 mg/dL (2.6-4.7) 3.7 mg/dL (2.6-4.7) Magnesium Level 1.6 mg/dL (1.8-2.4) 1.6 mg/dL (1.8-2.4) Total Bilirubin 0.4 mg/dL (0.2-1.0) Aspartate Amino Transf (AST/SGOT) 10 U/L (15-37) Alanine Aminotransferase (ALT/SGPT) 14 U/L (14-59) Alkaline Phosphatase 90 U/L (46-116) Total Protein 6.9 g/dL (6.4-8.2) Albumin 3.4 g/dL (3.4-5.0) Albumin/Globulin Ratio 1.0 (1.0-1.7) Glucose (Fingerstick) 116 mg/dL (70-99) Test 11/29/19 06:06 11/29/19 07:30 Glucose (Fingerstick) 99 mg/dL (70-99) 112 mg/dL (70-99) Laboratory Tests Test 11/29/19 00:14 11/29/19 03:30 11/29/19 06:06 11/29/19 07:30 Glucose (Fingerstick) 116 mg/dL (70-99) 99 mg/dL (70-99) 112 mg/dL (70-99) Phosphorus Level 3.7 mg/dL (2.6-4.7) Magnesium Level 1.6 mg/dL (1.8-2.4) Microbiology 11/21/19 Urine Culture - Final, Complete Medications Current Medications Sodium Chloride 1,000 ml @ 1,000 mls/hr 1X ONCE IV Last administered on 11/21/19at 21:06; Start 11/21/19 at 21:00; Stop 11/21/19 at 21:59; Status DC Famotidine (Pepcid Vial) 20 mg 1X ONCE IVP Last administered on 11/21/19at 21:08; Start 11/21/19 at 21:00; Stop 11/21/19 at 21:01; Status DC Morphine Sulfate (Morphine Sulfate) 2 mg 1X ONCE IV Last administered on 11/21/19at 21:09; Start 11/21/19 at 21:00; Stop 11/21/19 at 21:01; Status DC Prochlorperazine Edisylate (Compazine) 10 mg 1X ONCE IV Last administered on 11/21/19at 21:08; Start 11/21/19 at 21:00; Stop 11/21/19 at 21:01; Status DC Ondansetron HCl (Zofran) 4 mg PRN Q8HRS PRN IV NAUSEA/VOMITING 1ST CHOICE Last administered on 11/22/19 16:26; Start 11/21/19 at 23:00; Stop 11/22/19 at 22:59; Status DC Morphine Sulfate (Morphine Sulfate) 2 mg 1X ONCE IV Last administered on 11/21/19at 23:28; Start 11/21/19 at 23:45; Stop 11/21/19 at 23:46; Status DC Morphine Sulfate (Morphine Sulfate) 2 mg PRN Q2HR PRN IV SEVERE PAIN 7-10 Last administered on 11/22/19at 12:11; Start 11/22/19 at 01:45; Stop 11/22/19 at 13:25; Status DC Pantoprazole Sodium (PROTONIX VIAL for IV PUSH) 40 mg BIDAC IVP Last administered on 11/29/19at 08:45; Start 11/22/19 at 12:00 Bisacodyl (Dulcolax Supp) 10 mg 1X ONCE NE Last administered on 11/22/19at 12:11; Start 11/22/19 at 12:00; Stop 11/22/19 at 12:01; Status DC Dicyclomine HCl (Bentyl) 10 mg PRN QID PRN PO GI SYMPTOMS; Start 11/22/19 at 13:30 Methylnaltrexone [place] (Relistor) 12 mg 1X ONCE SQ Last administered on 11/22/19at 14:27; Start 11/22/19 at 14:00; Stop 11/22/19 at 14:01; Status DC Metoclopramide HCl (Reglan Vial) 10 mg PRN Q6HRS PRN IVP NAUSEA/VOMITING 3RD CHOICE Last administered on 11/28/19at 06:39; Start 11/22/19 at 15:30 Morphine Sulfate (Morphine Sulfate) 2 mg PRN Q2HR PRN IV PAIN Last administered on 11/29/19 08:56; Start 11/22/19 at 17:00 Sodium Chloride 1,000 ml @ 75 mls/hr [id number] IV Last administered on 11/22/19at 19:53; Start 11/22/19 at 20:00; Stop 11/22/19 at 20:11; Status DC Amino Acids/ Glycerin/ Electrolytes 1,000 ml @ 75 mls/hr [id number] IV Last administered on 11/27/19 08:48; Start 11/22/19 at 21:00; Stop 11/27/19 at 21:59; Status DC Ondansetron HCl (Zofran) 4 mg PRN Q6HRS PRN IVP NAUSEA/VOMITING 1ST CHOICE Last administered on 11/28/19at 15:44; Start 11/22/19 at 23:30 Prochlorperazine Edisylate (Compazine) 10 mg PRN Q6HRS PRN IV NAUSEA/VOMITING 2ND CHOICE Last administered on 11/29/19 08:58; Start 11/22/19 at 23:30 Nystatin (Nystatin Oral Susp) 5 ml [id number] Last administered on 11/29/19 08:47; Start 11/24/19 at 13:00 Lidocaine/ Epinephrine (LIDOCAINE 1%-EPI 1:100,000 Multi-Dose) 20 ml STK-MED ONCE .ROUTE ; Start 11/26/19 at 10:54; Stop 11/26/19 at 10:57; Status DC Cefazolin Sodium (Ancef) 1 gm STK-MED ONCE IVP ; Start 11/26/19 at 11:20; Stop 11/26/19 at 11:26; Status DC Midazolam HCl (Versed) 2 mg STK-MED ONCE .ROUTE ; Start 11/26/19 at 11:20; Stop 11/26/19 at 11:26; Status DC Fentanyl Citrate (Fentanyl 2ml Vial) 100 mcg STK-MED ONCE .ROUTE ; Start 11/26/19 at 11:21; Stop 11/26/19 at 11:26; Status DC Midazolam HCl (Versed) 2 mg 1X ONCE IV Last administered on 11/26/19at 11:38; Start 11/26/19 at 12:00; Stop 11/26/19 at 12:03; Status DC Fentanyl Citrate (Fentanyl 2ml Vial) 100 mcg 1X ONCE IV Last administered on 11/26/19at 12:00; Start 11/26/19 at 12:00; Stop 11/26/19 at 12:01 Lidocaine/ Epinephrine (LIDOCAINE 1%-EPI 1:100,000 Multi-Dose) 20 ml 1X ONCE SQ Last administered on 11/26/19at 12:00; Start 11/26/19 at 12:00; Stop 11/26/19 at 12:03; Status DC Cefazolin Sodium (Ancef) 1 gm 1X ONCE IVP Last administered on 11/26/19at 12:00; Start 11/26/19 at 12:00; Stop 11/26/19 at 12:03; Status DC Bisacodyl (Dulcolax Supp) 10 mg PRN DAILY PRN NE CONSTIPATION, 1sT CHOICE Last administered on 11/26/19at 13:30; Start 11/26/19 at 13:30 Docusate Sodium (Enemeez) 283 mg PRN DAILY PRN NE CONSTIPATION, 2nd CHOICE; Start 11/26/19 at 19:00 Diphenhydramine HCl (Benadryl) 12.5 mg 1X ONCE IV Last administered on 11/26/19at 23:13; Start 11/26/19 at 23:00; Stop 11/26/19 at 23:01; Status DC Info (Tpn Per Pharmacy) 1 each PRN DAILY PRN MC SEE COMMENTS; Start 11/27/19 at 09:30; Stop 11/27/19 at 09:55; Status DC Lorazepam (Ativan Inj) 0.5 mg PRN Q4HRS PRN IVP nausea; Start 11/27/19 at 13:45 Lorazepam (Ativan Inj) 1 mg PRN Q4HRS PRN IVP nausea; Start 11/27/19 at 13:45 Lorazepam (Ativan Inj) 2 mg PRN Q4HRS PRN IVP nausea Last administered on 11/28/19at 11:59; Start 11/27/19 at 13:45 Potassium Chloride/Water 100 ml @ 100 mls/hr PRN Q1HR PRN IV SEE COMMENTS; Start 11/28/19 at 11:00 Magnesium Sulfate 50 ml @ 25 mls/hr Q24H IV Last administered on 11/28/19at 11:53; Start 11/28/19 at 11:00; Stop 11/30/19 at 12:59 Potassium Phos/ Sodium Phos (Phos-Nak) 1 pkt BID PO Last administered on 11/28/19at 21:25; Start 11/28/19 at 11:00; Stop 11/28/19 at 21:01; Status DC Potassium Chloride/Water 100 ml @ 100 mls/hr PRN Q1HR PRN IV SEE COMMENTS; Start 11/28/19 at 11:00 Magnesium Hydroxide (Milk Of Magnesia) 2,400 mg DAILY JT Last administered on 11/29/19at 08:46; Start 11/28/19 at 12:00 Info (Tpn Per Pharmacy) 1 each PRN DAILY PRN MC SEE COMMENTS Last administered on 11/28/19at 14:50; Start 11/28/19 at 14:15 Sodium Chloride 90 meq/Potassium Chloride 50 meq/ Potassium Phosphate 13.6 mmol/Magnesium Sulfate 10 meq/ Calcium Gluconate 10 meq/ Multivitamins 10 ml/Chromium/ Copper/Manganese/ Seleni/Zn 1 ml/ Total Parenteral Nutrition/Amino Acids/Dextrose/ Fat Emulsion Intravenous 1,512 ml @ 63 mls/hr TPN CONT IV Last administered on 11/28/19at 21:40; Start 11/28/19 at 22:00; Stop 11/29/19 at 21:59 Active Scripts Active Lactated Ringers (Ringers Solution,Lactated) 1,000 Ml Iv.soln 1,000 Ml IV DAILY Keflex (Cephalexin) 500 Mg Capsule 1 Cap PO TID 4 Days Miralax (Polyethylene Glycol 3350) 17 Gm Powd.pack 1 Packet PO DAILY 15 Days dissolve in water Hydrocodone-Apap 7.5-325/15 Soln (Hydrocodone Bit/Acetaminophen) 15 Ml Solution 15 Ml JT PRN Q6HRS PRN Reported Advair Hfa 230-21 Mcg Inhaler (Fluticasone/Salmeterol) 12 Gm Hfa.aer.ad 1 Inh IH BID Buspirone Hcl 10 Mg Tablet 0.5 Tab PO BID Reglan (Metoclopramide Hcl) 10 Mg Tablet 10 Mg PO QIDACHS Zelnorm (Tegaserod Hydrogen Maleate) 6 Mg Tablet 6 Mg GT BID Amitriptyline Hcl 75 Mg Tablet 75 Mg PO QHS Dicyclomine Hcl 20 Mg Tablet 20 Mg GT PRN QID PRN Stool Softener (Docusate Sodium) 50 Mg Capsule 50 Mg PO PRN HS Olopatadine HCl 5 Ml Drops 0.1 % OP PRN DAILY PRN Promethazine Hcl 12.5 Mg Tablet 25 Mg GT Q6H PRN Trazodone Hcl 50 Mg Tablet 50 Mg GT HS Maxalt (Rizatriptan Benzoate) 10 Mg Tablet 5 Mg GT PRN DAILY PRN Valproic Acid (Valproate Sodium) 250 Mg/5 Ml Solution 15 Ml PO BID Coq-10 (Ubidecarenone) 100 Mg Capsule 200 Mg GT DAILY Vitamin D3 (Cholecalciferol (Vitamin D3)) 4,000 Unit Capsule 2,000 Unit PO HS Xyzal (Levocetirizine Dihydrochloride) 5 Mg Tablet 5 Mg GT HS Proair Hfa (Albuterol Sulfate) 8.5 Gm Hfa.aer.ad 2 Puff IH PRN Q4-6HRS PRN 21 Days Ipratropium [place] 30 Ml [place] 1 [place] NS DAILY Duoneb 0.5-3(2.5) Mg/3 Ml (Albuterol/Ipratropium) 3 Ml Ampul.neb 3 Ml NEB PRN QID PRN Protonix (Pantoprazole Sodium) 20 Mg Tablet.dr 40 Mg GT HS Montelukast Sodium Tablet (Montelukast Sodium) 10 Mg Tablet 10 Mg GT DAILY PRN Magnesium Oxide 250 Mg Tablet 1 Tab PO DAILY 30 Days Multi Vitamin Daily (Multivitamin) 1 Each Tablet 1 Each GT DAILY Metoprolol Tartrate 50 Mg Tablet 50 Mg GT BID Vitals/I & O Vital Sign - Last 24 Hours 11/28/19 11/28/19 11/28/19 11/28/19 11:00 12:00 12:45 15:00 Temp 97.5 97.5 97.5 97.5 Pulse 91 89 Resp 20 18 B/P (MAP) 95/61 (72) 98/64 (75) Pulse Ox 96 96 96 98 O2 Delivery Room Air Room Air Room Air Room Air 11/28/19 11/28/19 11/28/19 11/28/19 19:00 19:44 20:05 20:14 Temp 98.2 98.2 Pulse 102 Resp 18 18 18 B/P (MAP) 107/58 (74) Pulse Ox 95 98 98 O2 Delivery Room Air Room Air Room Air Room Air O2 Flow Rate 2.0 2.0 11/28/19 11/29/19 11/29/19 11/29/19 23:00 02:51 03:00 03:21 Temp 98.5 98.2 98.5 98.2 Pulse 100 106 Resp 18 17 18 18 B/P (MAP) 100/61 (74) 109/73 (85) Pulse Ox 95 95 94 95 O2 Delivery Room Air Room Air Room Air Room Air O2 Flow Rate 2.0 2.0 11/29/19 11/29/19 07:00 08:56 Temp 98.2 98.2 Pulse 105 Resp 16 B/P (MAP) 91/55 (67) Pulse Ox 95 O2 Delivery Room Air Room Air Intake and Output 11/28/19 11/28/19 11/29/19 15:00 23:00 07:00 Intake Total 150 ml Balance 150 ml Justicifation of Admission Dx: Justifications for Admission: Justification of Admission Dx: No JEFFERSON XAVIER MD Nov 29, 2019 10:57
[2019-11-29 11:00] VITALS: BP 102/65
[2019-11-29] MEDS: MAGNESIUM SULFATE 2GM 50 ML IV SCH (11:00)
--- NOTE | 2019-11-29 11:04 | PDOC ---
Subjective: Subjective: Nausea almost gone. Stopping tubes feeds helped, prefers TPN. Stooled yesterday w/o suppository, took MoM today per tube. G tube not hooked to drainage currently - tired of it leaking, took a shower at 1:30 a.m. because of this and sleepy now. Thinks Ativan made her vomit. Objective: Objective: Reviewed surg note - long-term TPN. Vital Signs: Vital Signs Date Time Temp Pulse Resp B/P (MAP) Pulse Ox O2 Delivery O2 Flow Rate FiO2 11/29/19 08:56 Room Air 11/29/19 07:00 98.2 105 16 91/55 (67) 95 98.2 11/29/19 03:21 2.0 Labs: Laboratory Tests Test 11/29/19 00:14 11/29/19 03:30 11/29/19 06:06 11/29/19 07:30 Glucose (Fingerstick) 116 mg/dL 99 mg/dL 112 mg/dL Phosphorus Level 3.7 mg/dL Magnesium Level 1.6 mg/dL PE: GEN: NAD - was asleep LUNGS: CTAB HEART: mildly tachycardic ABD: soft, tubes NEURO/PSYCH: A & O 3, flat, speaks quietly A/P: Chronic n/v, right-sided abd pain, gastroparesis, constipation G tube and J tube and port in place, on TPN -- Nausea improved. Stooling. Will review w/ Dr. Doyle. Justicifation of Admission Dx: Justifications for Admission: Justification of Admission Dx: Jody CERVANTES-LIA STILES Nov 29, 2019 11:04
[2019-11-29] MEDS: TPN PER PHARMACY MC PRN (12:38)
--- NOTE | 2019-11-29 12:44 | NUR ---
Pharmacy TPN Dosing Note S: SUNITHA SCHULTZ is a 19 year old F Currently receiving Central Continuous TPN started 11/28/19 B:Pertinent PMH: NPO Height: 5 feet, 7 inches Weight: 75.182409 kg Current diet: TF/NOT TOLERATED LABS: Sodium: 138 Potassium: 3.6 Chloride: 103 Calcium: 8.2 Corrected Calcium: Magnesium: 1.6 CO2: 26 SCr: 0.5 Glucose: 110 Albumin: AST: ALT: TPN FORMULA: TPN TYPE: Central Continuous AMINO ACIDS: 75 gm DEXTROSE: 250 gm LIPIDS: 30 gm SODIUM CHLORIDE: 90 mEq SODIUM ACETATE: mEq SODIUM PHOSPHATE: mmol POTASSIUM CHLORIDE: 50 mEq POTASSIUM ACETATE: mEq POTASSIUM PHOSPHATE: 13.6 mmol MAGNESIUM: 15 mEq CALCIUM: 10 mEq INSULIN: units MULTIPLE VITAMIN: 10 ml TRACE ELEMENTS: 1 ml(s) TPN PLAN: Macros adjusted per cattle shipper recs. Magnesium increased to 15mEq/bag. Labs in AM. R: Change TPN per plan and ordered formula Will monitor electrolytes, glucose, and tolerance to TPN. Renu Melgar Velasquez, 11/29/19 [id number]
[2019-11-29] MEDS: ONDANSETRON PF 4 MG/2 ML VIAL. IVP PRN ×2 (13:01→20:14)
[2019-11-29 15:00] VITALS: BP 98/60
--- NOTE | 2019-11-29 15:41 | NUR ---
SW following. Spoke with RN and CM. Spoke with Dr. Wilson. Reviewed chart. Pt not ready for discharge as a psychiatric consult has been ordered. GI also wants to do imaging of the small bowel. Pt on TPN and it is not yet known if she will need it at discharge. Pt plans to return home with [facility] when stable. SW to continue following.
[2019-11-29 19:00] VITALS: BP 98/54
[2019-11-29] MEDS ORDERED: TOTAL PARENTERAL NUTRITION IV SCH (22:00)
[2019-11-29] MEDS ORDERED: DEXTROSE 70% IV SCH (22:00)
[2019-11-29] MEDS ORDERED: [UNRECOGNIZED DRUG - OTHER] IV SCH (22:00)
[2019-11-29] MEDS ORDERED: AMINO ACID IV SCH (22:00)
[2019-11-29 23:00] VITALS: BP 99/56
[2019-11-30 03:00] VITALS: BP 90/51
[2019-11-30 05:10] LABS: BASO % 1 % (0-3); EOS # 0.1 x10^3/uL (0.0-0.7); EOS % 3 % (0-3); HEMATOCRIT 32.7 % (36.0-47.0); HEMOGLOBIN 11.6 g/dL (12.0-15.5); LYMPH # 1.6 x10^3/uL (1.0-4.8); LYMPH % 40 % (24-48); MEAN CORPUSCULAR HEMOGLOBIN 33 pg (25-35); MEAN CORPUSCULAR HGB CONC 36 g/dL (31-37); MEAN CORPUSCULAR VOLUME 93 fL (79-100); MONO # 0.3 x10^3/uL (0.0-1.1); MONO % 9 % (0-9); NEUT # 1.9 x10^3/uL (1.8-7.7); NEUT % 48 % (31-73); PLATELET COUNT 147 x10^3/uL (140-400); RED BLOOD COUNT 3.52 x10^6/uL (3.50-5.40); RED CELL DISTRIBUTION WIDTH 13.4 % (11.5-14.5); WHITE BLOOD COUNT 3.9 x10^3/uL (4.0-11.0)
[2019-11-30 05:54] LABS: CALCIUM 8.5 mg/dL (8.5-10.1); CREATININE 0.7 mg/dL (0.6-1.0); GFR 105.6; POTASSIUM 3.7 mmol/L (3.5-5.1)
[2019-11-30 06:31] LABS: ALBUMIN 3.2 g/dL (3.4-5.0); ALBUMIN/GLOBULIN RATIO 1.1 (1.0-1.7); CALCIUM 8.3 mg/dL (8.5-10.1); CREATININE 0.6 mg/dL (0.6-1.0); GFR 126.2; POTASSIUM 3.9 mmol/L (3.5-5.1); TOTAL BILIRUBIN 0.2 mg/dL (0.2-1.0)
[2019-11-30 07:15] VITALS: BP 102/56
[2019-11-30] MEDS: NYSTATIN 100,000 UNITS/ML 5 ML ORAL.SUSP. SWSW SCH ×4 (08:04→21:55)
[2019-11-30] MEDS: MAGNESIUM HYDROXIDE 2,400 MG/30 ML ORAL.SUSP. JT SCH (08:04)
[2019-11-30] MEDS: PANTOPRAZOLE IV PUSH 40 MG VIAL. IVP SCH ×2 (08:04→16:51)
[2019-11-30] MEDS: MORPHINE SULFATE 2 MG/ML VIAL. IV PRN ×4 (08:12→20:19)
[2019-11-30] MEDS ORDERED: CONTRAST GIVEN. MC PRN ×2 (08:30→09:45)
[2019-11-30] MEDS ORDERED: IOHEXOL 300 MG/ML 100ML VIAL. IJ ONE (08:30)
--- NOTE | 2019-11-30 08:45 | PDOC ---
PROGRESS NOTES Assessment Migraine headaches, Treated at with Botox injections and she is supposed to start on Aimovig. Brain MRI here negative Nausea and vomiting in gastroesophageal reflux disease and gastroparesis req uiring PEG tube Note surgery plans Plan Nothing to add neurologically here, follow up at Subjective Headache 0/10 Objective Vital Signs Date Time Temp Pulse Resp B/P (MAP) Pulse Ox O2 Delivery O2 Flow Rate FiO2 11/30/19 08:12 16 Room Air 11/30/19 07:15 98.2 101 102/56 (71) 99 98.2 Intake and Output 11/30/19 07:00 Intake Total 0 ml Balance 0 ml Intake Oral 0 ml # Voids 3 PHYSICAL EXAM Alert. Oriented to time, place and person. PERRL. EOMI. CN: no focal findings. Muscle tone: normal. Muscle strength: 5/5 DTR: 2+ Plantar reflex: flexor Gait: not examined in bed. Sensory exam: no abnormal findings. No cerebellar signs elicited. Review of Relevant I have reviewed the following items lalo (where applicable) has been applied. Labs Laboratory Tests Test 11/29/19 00:14 11/29/19 03:30 11/29/19 06:06 11/29/19 07:30 Glucose (Fingerstick) 116 mg/dL (70-99) 99 mg/dL (70-99) 112 mg/dL (70-99) Phosphorus Level 3.7 mg/dL (2.6-4.7) Magnesium Level 1.6 mg/dL (1.8-2.4) Test 11/29/19 18:32 11/29/19 23:58 11/30/19 03:34 11/30/19 06:16 Glucose (Fingerstick) 91 mg/dL (70-99) 102 mg/dL (70-99) 103 mg/dL (70-99) White Blood Count 3.9 x10^3/uL (4.0-11.0) Red Blood Count 3.52 x10^6/uL (3.50-5.40) Hemoglobin 11.6 g/dL (12.0-15.5) Hematocrit 32.7 % (36.0-47.0) Mean Corpuscular Volume 93 fL (79-100) Mean Corpuscular Hemoglobin 33 pg (25-35) Mean Corpuscular Hemoglobin Concent 36 g/dL (31-37) Red Cell Distribution Width 13.4 % (11.5-14.5) Platelet Count 147 x10^3/uL (140-400) Neutrophils (%) (Auto) 48 % (31-73) Lymphocytes (%) (Auto) 40 % (24-48) Monocytes (%) (Auto) 9 % (0-9) Eosinophils (%) (Auto) 3 % (0-3) Basophils (%) (Auto) 1 % (0-3) Neutrophils # (Auto) 1.9 x10^3/uL (1.8-7.7) Lymphocytes # (Auto) 1.6 x10^3/uL (1.0-4.8) Monocytes # (Auto) 0.3 x10^3/uL (0.0-1.1) Eosinophils # (Auto) 0.1 x10^3/uL (0.0-0.7) Basophils # (Auto) 0.0 x10^3/uL (0.0-0.2) Sodium Level 142 mmol/L (136-145) Potassium Level 3.9 mmol/L (3.5-5.1) Chloride Level 105 mmol/L (98-107) Carbon Dioxide Level 25 mmol/L (21-32) Anion Gap 12 (6-14) Blood Urea Nitrogen 10 mg/dL (7-20) Creatinine 0.6 mg/dL (0.6-1.0) Estimated GFR (Cockcroft-Gault) 126.2 BUN/Creatinine Ratio 17 (6-20) Glucose Level 101 mg/dL (70-99) Calcium Level 8.3 mg/dL (8.5-10.1) Phosphorus Level 4.0 mg/dL (2.6-4.7) Magnesium Level 2.0 mg/dL (1.8-2.4) Total Bilirubin 0.2 mg/dL (0.2-1.0) Aspartate Amino Transf (AST/SGOT) 12 U/L (15-37) Alanine Aminotransferase (ALT/SGPT) 17 U/L (14-59) Alkaline Phosphatase 80 U/L (46-116) Total Protein 6.0 g/dL (6.4-8.2) Albumin 3.2 g/dL (3.4-5.0) Albumin/Globulin Ratio 1.1 (1.0-1.7) Triglycerides Level 52 mg/dL (0-150) Laboratory Tests Test 11/29/19 18:32 11/29/19 23:58 11/30/19 03:34 11/30/19 06:16 Glucose (Fingerstick) 91 mg/dL (70-99) 102 mg/dL (70-99) 103 mg/dL (70-99) White Blood Count 3.9 x10^3/uL (4.0-11.0) Red Blood Count 3.52 x10^6/uL (3.50-5.40) Hemoglobin 11.6 g/dL (12.0-15.5) Hematocrit 32.7 % (36.0-47.0) Mean Corpuscular Volume 93 fL (79-100) Mean Corpuscular Hemoglobin 33 pg (25-35) Mean Corpuscular Hemoglobin Concent 36 g/dL (31-37) Red Cell Distribution Width 13.4 % (11.5-14.5) Platelet Count 147 x10^3/uL (140-400) Neutrophils (%) (Auto) 48 % (31-73) Lymphocytes (%) (Auto) 40 % (24-48) Monocytes (%) (Auto) 9 % (0-9) Eosinophils (%) (Auto) 3 % (0-3) Basophils (%) (Auto) 1 % (0-3) Neutrophils # (Auto) 1.9 x10^3/uL (1.8-7.7) Lymphocytes # (Auto) 1.6 x10^3/uL (1.0-4.8) Monocytes # (Auto) 0.3 x10^3/uL (0.0-1.1) Eosinophils # (Auto) 0.1 x10^3/uL (0.0-0.7) Basophils # (Auto) 0.0 x10^3/uL (0.0-0.2) Sodium Level 142 mmol/L (136-145) Potassium Level 3.9 mmol/L (3.5-5.1) Chloride Level 105 mmol/L (98-107) Carbon Dioxide Level 25 mmol/L (21-32) Anion Gap 12 (6-14) Blood Urea Nitrogen 10 mg/dL (7-20) Creatinine 0.6 mg/dL (0.6-1.0) Estimated GFR (Cockcroft-Gault) 126.2 BUN/Creatinine Ratio 17 (6-20) Glucose Level 101 mg/dL (70-99) Calcium Level 8.3 mg/dL (8.5-10.1) Phosphorus Level 4.0 mg/dL (2.6-4.7) Magnesium Level 2.0 mg/dL (1.8-2.4) Total Bilirubin 0.2 mg/dL (0.2-1.0) Aspartate Amino Transf (AST/SGOT) 12 U/L (15-37) Alanine Aminotransferase (ALT/SGPT) 17 U/L (14-59) Alkaline Phosphatase 80 U/L (46-116) Total Protein 6.0 g/dL (6.4-8.2) Albumin 3.2 g/dL (3.4-5.0) Albumin/Globulin Ratio 1.1 (1.0-1.7) Triglycerides Level 52 mg/dL (0-150) Microbiology 11/21/19 Urine Culture - Final, Complete Medications Current Medications Sodium Chloride 1,000 ml @ 1,000 mls/hr 1X ONCE IV Last administered on 11/20at 21:06; Start 11/21/19 at 21:00; Stop 11/21/19 at 21:59; Status DC Famotidine (Pepcid Vial) 20 mg 1X ONCE IVP Last administered on 11/21/19at 21:08; Start 11/21/19 at 21:00; Stop 11/21/19 at 21:01; Status DC Morphine Sulfate (Morphine Sulfate) 2 mg 1X ONCE IV Last administered on 11/21/19at 21:09; Start 11/21/19 at 21:00; Stop 11/21/19 at 21:01; Status DC Prochlorperazine Edisylate (Compazine) 10 mg 1X ONCE IV Last administered on 11/21/19at 21:08; Start 11/21/19 at 21:00; Stop 11/21/19 at 21:01; Status DC Ondansetron HCl (Zofran) 4 mg PRN Q8HRS PRN IV NAUSEA/VOMITING 1ST CHOICE Last administered on 11/22/19at 16:26; Start 11/21/19 at 23:00; Stop 11/22/19 at 22:59; Status DC Morphine Sulfate (Morphine Sulfate) 2 mg 1X ONCE IV Last administered on 11/21/19at 23:28; Start 11/21/19 at 23:45; Stop 11/21/19 at 23:46; Status DC Morphine Sulfate (Morphine Sulfate) 2 mg PRN Q2HR PRN IV SEVERE PAIN 7-10 Last administered on 11/22/19at 12:11; Start 11/22/19 at 01:45; Stop 11/22/19 at 13:25; Status DC Pantoprazole Sodium (PROTONIX VIAL for IV PUSH) 40 mg BIDAC IVP Last administered on 11/30/19at 08:04; Start 11/22/19 at 12:00 Bisacodyl (Dulcolax Supp) 10 mg 1X ONCE MA Last administered on 11/22/19at 12:11; Start 11/22/19 at 12:00; Stop 11/22/19 at 12:01; Status DC Dicyclomine HCl (Bentyl) 10 mg PRN QID PRN PO GI SYMPTOMS; Start 11/22/19 at 13:30 Methylnaltrexone [place] (Relistor) 12 mg 1X ONCE SQ Last administered on 11/22/19at 14:27; Start 11/22/19 at 14:00; Stop 11/22/19 at 14:01; Status DC Metoclopramide HCl (Reglan Vial) 10 mg PRN Q6HRS PRN IVP NAUSEA/VOMITING 3RD CHOICE Last administered on 11/28/19at 06:39; Start 11/22/19 at 15:30 Morphine Sulfate (Morphine Sulfate) 2 mg PRN Q2HR PRN IV PAIN Last administered on 11/30/19at 08:12; Start 11/22/19 at 17:00 Sodium Chloride 1,000 ml @ 75 mls/hr [id number] IV Last administered on 11/22/19at 19:53; Start 11/22/19 at 20:00; Stop 11/22/19 at 20:11; Status DC Amino Acids/ Glycerin/ Electrolytes 1,000 ml @ 75 mls/hr [id number] IV Last administered on 11/27/19at 08:48; Start 11/22/19 at 21:00; Stop 11/27/19 at 21:59; Status DC Ondansetron HCl (Zofran) 4 mg PRN Q6HRS PRN IVP NAUSEA/VOMITING 1ST CHOICE Last administered on 11/29/19at 20:14; Start 11/22/19 at 23:30 Prochlorperazine Edisylate (Compazine) 10 mg PRN Q6HRS PRN IV NAUSEA/VOMITING 2ND CHOICE Last administered on 11/29/19at 18:03; Start 11/22/19 at 23:30 Nystatin (Nystatin Oral Susp) 5 ml [id number] Last administered on 11/30/19at 08:04; Start 11/24/19 at 13:00 Lidocaine/ Epinephrine (LIDOCAINE 1%-EPI 1:100,000 Multi-Dose) 20 ml STK-MED ONCE .ROUTE ; Start 11/26/19 at 10:54; Stop 11/26/19 at 10:57; Status DC Cefazolin Sodium (Ancef) 1 gm STK-MED ONCE IVP ; Start 11/26/19 at 11:20; Stop 11/26/19 at 11:26; Status DC Midazolam HCl (Versed) 2 mg STK-MED ONCE .ROUTE ; Start 11/26/19 at 11:20; Stop 11/26/19 at 11:26; Status DC Fentanyl Citrate (Fentanyl 2ml Vial) 100 mcg STK-MED ONCE .ROUTE ; Start 11/26/19 at 11:21; Stop 11/26/19 at 11:26; Status DC Midazolam HCl (Versed) 2 mg 1X ONCE IV Last administered on 11/26/19at 11:38; Start 11/26/19 at 12:00; Stop 11/26/19 at 12:03; Status DC Fentanyl Citrate (Fentanyl 2ml Vial) 100 mcg 1X ONCE IV Last administered on 11/26/19at 12:00; Start 11/26/19 at 12:00; Stop 11/26/19 at 12:01 Lidocaine/ Epinephrine (LIDOCAINE 1%-EPI 1:100,000 Multi-Dose) 20 ml 1X ONCE SQ Last administered on 11/26/19at 12:00; Start 11/26/19 at 12:00; Stop 11/26/19 at 12:03; Status DC Cefazolin Sodium (Ancef) 1 gm 1X ONCE IVP Last administered on 11/26/19at 12:00; Start 11/26/19 at 12:00; Stop 11/26/19 at 12:03; Status DC Bisacodyl (Dulcolax Supp) 10 mg PRN DAILY PRN MA CONSTIPATION, 1sT CHOICE Last administered on 11/26/19at 13:30; Start 11/26/19 at 13:30 Docusate Sodium (Enemeez) 283 mg PRN DAILY PRN MA CONSTIPATION, 2nd CHOICE; Start 11/26/19 at 19:00 Diphenhydramine HCl (Benadryl) 12.5 mg 1X ONCE IV Last administered on 11/26/19at 23:13; Start 11/26/19 at 23:00; Stop 11/26/19 at 23:01; Status DC Info (Tpn Per Pharmacy) 1 each PRN DAILY PRN MC SEE COMMENTS; Start 11/27/19 at 09:30; Stop 11/27/19 at 09:55; Status DC Lorazepam (Ativan Inj) 0.5 mg PRN Q4HRS PRN IVP nausea, unrel by other meds; Start 11/27/19 at 13:45; Stop 11/29/19 at 14:26; Status DC Lorazepam (Ativan Inj) 1 mg PRN Q4HRS PRN IVP nausea, unrel by other meds; Start 11/27/19 at 13:45; Stop 11/29/19 at 14:26; Status DC Lorazepam (Ativan Inj) 2 mg PRN Q4HRS PRN IVP nausea, unrel by other meds Last administered on 11/28/19at 11:59; Start 11/27/19 at 13:45; Stop 11/29/19 at 14:26; Status DC Potassium Chloride/Water 100 ml @ 100 mls/hr PRN Q1HR PRN IV SEE COMMENTS; Start 11/28/19 at 11:00 Magnesium Sulfate 50 ml @ 25 mls/hr Q24H IV Last administered on 11/29/19at 11:00; Start 11/28/19 at 11:00; Stop 11/30/19 at 12:59 Potassium Phos/ Sodium Phos (Phos-Nak) 1 pkt BID PO Last administered on 11/28/19at 21:25; Start 11/28/19 at 11:00; Stop 11/28/19 at 21:01; Status DC Potassium Chloride/Water 100 ml @ 100 mls/hr PRN Q1HR PRN IV SEE COMMENTS; Start 11/28/19 at 11:00 Magnesium Hydroxide (Milk Of Magnesia) 2,400 mg DAILY JT Last administered on 11/30/19at 08:04; Start 11/28/19 at 12:00 Info (Tpn Per Pharmacy) 1 each PRN DAILY PRN MC SEE COMMENTS Last administered on 11/29/19at 12:38; Start 11/28/19 at 14:15 Sodium Chloride 90 meq/Potassium Chloride 50 meq/ Potassium Phosphate 13.6 mmol/Magnesium Sulfate 10 meq/ Calcium Gluconate 10 meq/ Multivitamins 10 ml/Chromium/ Copper/Manganese/ Seleni/Zn 1 ml/ Total Parenteral Nutrition/Amino Acids/Dextrose/ Fat Emulsion Intravenous 1,512 ml @ 63 mls/hr TPN CONT IV Last administered on 11/28/19at 21:40; Start 11/28/19 at 22:00; Stop 11/29/19 at 21:59; Status DC Sodium Chloride 90 meq/Potassium Chloride 50 meq/ Potassium Phosphate 13.6 mmol/Magnesium Sulfate 15 meq/ Calcium Gluconate 10 meq/ Multivitamins 10 ml/Chromium/ Copper/Manganese/ Seleni/Zn 1 ml/ Total Parenteral Nutrition/Amino Acids/Dextrose/ Fat Emulsion Intravenous 1,512 ml @ 63 mls/hr TPN CONT IV Last administered on 11/29/19at 22:41; Start 11/29/19 at 22:00; Stop 11/30/19 at 21:59 Iohexol (Omnipaque 300 Mg/ml) 400 ml 1X ONCE IJ ; Start 11/30/19 at 08:30; Stop 11/30/19 at 08:31; Status DC Info (CONTRAST GIVEN -- Rx MONITORING) 1 each PRN DAILY PRN MC SEE COMMENTS; Start 11/30/19 at 08:30; Stop 12/02/19 at 08:29 Active Scripts Active Lactated Ringers (Ringers Solution,Lactated) 1,000 Ml Iv.soln 1,000 Ml IV DAILY Keflex (Cephalexin) 500 Mg Capsule 1 Cap PO TID 4 Days Miralax (Polyethylene Glycol 3350) 17 Gm Powd.pack 1 Packet PO DAILY 15 Days dissolve in water Hydrocodone-Apap 7.5-325/15 Soln (Hydrocodone Bit/Acetaminophen) 15 Ml Solution 15 Ml JT PRN Q6HRS PRN Reported Advair Hfa 230-21 Mcg Inhaler (Fluticasone/Salmeterol) 12 Gm Hfa.aer.ad 1 Inh IH BID Buspirone Hcl 10 Mg Tablet 0.5 Tab PO BID Reglan (Metoclopramide Hcl) 10 Mg Tablet 10 Mg PO QIDACHS Zelnorm (Tegaserod Hydrogen Maleate) 6 Mg Tablet 6 Mg GT BID Amitriptyline Hcl 75 Mg Tablet 75 Mg PO QHS Dicyclomine Hcl 20 Mg Tablet 20 Mg GT PRN QID PRN Stool Softener (Docusate Sodium) 50 Mg Capsule 50 Mg PO PRN HS Olopatadine HCl 5 Ml Drops 0.1 % OP PRN DAILY PRN Promethazine Hcl 12.5 Mg Tablet 25 Mg GT Q6H PRN Trazodone Hcl 50 Mg Tablet 50 Mg GT HS Maxalt (Rizatriptan Benzoate) 10 Mg Tablet 5 Mg GT PRN DAILY PRN Valproic Acid (Valproate Sodium) 250 Mg/5 Ml Solution 15 Ml PO BID Coq-10 (Ubidecarenone) 100 Mg Capsule 200 Mg GT DAILY Vitamin D3 (Cholecalciferol (Vitamin D3)) 4,000 Unit Capsule 2,000 Unit PO HS Xyzal (Levocetirizine Dihydrochloride) 5 Mg Tablet 5 Mg GT HS Proair Hfa (Albuterol Sulfate) 8.5 Gm Hfa.aer.ad 2 Puff IH PRN Q4-6HRS PRN 21 Days Ipratropium [place] 30 Ml [place] 1 [place] NS DAILY Duoneb 0.5-3(2.5) Mg/3 Ml (Albuterol/Ipratropium) 3 Ml Ampul.neb 3 Ml NEB PRN QID PRN Protonix (Pantoprazole Sodium) 20 Mg Tablet.dr 40 Mg GT HS Montelukast Sodium Tablet (Montelukast Sodium) 10 Mg Tablet 10 Mg GT DAILY PRN Magnesium Oxide 250 Mg Tablet 1 Tab PO DAILY 30 Days Multi Vitamin Daily (Multivitamin) 1 Each Tablet 1 Each GT DAILY Metoprolol Tartrate 50 Mg Tablet 50 Mg GT BID Vitals/I & O Vital Sign - Last 24 Hours 11/29/19 11/29/19 11/29/19 11/29/19 08:56 10:58 11:00 13:02 Temp 98.0 98.0 Pulse 64 Resp 18 B/P (MAP) 102/65 (77) Pulse Ox 92 O2 Delivery Room Air Room Air Room Air Room Air 11/29/19 11/29/19 11/29/19 11/29/19 15:00 16:30 19:00 20:15 Temp 97.8 98.8 97.8 98.8 Pulse 95 94 Resp 16 18 20 B/P (MAP) 98/60 (73) 98/54 (69) Pulse Ox 95 94 O2 Delivery Room Air Room Air Room Air Room Air 11/29/19 11/29/19 11/29/19 11/30/19 20:15 21:00 23:00 03:00 Temp 98.7 97.7 98.7 97.7 Pulse 80 93 Resp 18 18 18 B/P (MAP) 99/56 (70) 90/51 (64) Pulse Ox 95 94 O2 Delivery Room Air Room Air Room Air Room Air 11/30/19 11/30/19 11/30/19 07:15 08:00 08:12 Temp 98.2 98.2 Pulse 101 Resp 14 16 B/P (MAP) 102/56 (71) Pulse Ox 99 O2 Delivery Room Air Room Air Room Air Intake and Output 11/29/19 11/29/19 11/30/19 15:00 23:00 07:00 Intake Total 0 ml Balance 0 ml Justicifation of Admission Dx: Justifications for Admission: Justification of Admission Dx: No JACKELYN LUI MD Nov 30, 2019 08:45
--- NOTE | 2019-11-30 09:25 | PDOC ---
PROGRESS NOTES Chief Complaint Chief Complaint impression Persistent nausea despite the following : Severe gastroparesis (she has been seen at the [facility] and among other places) Status post GJ tube and she WAS on continuous pump of feeds at 60 cc an hour at home NOW ON HOLD due to pain Cyclic vomiting syndrome rectal fecal impaction GJ tube Severe gastroparesis Cyclic vomiting syndrome G-tube (x 20), J-tube, GERD, hypertension, gastroparesis, cyclic vomiting, cholecystectomy, tonsillectomy. 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 Many GJ tubes - issues ww/ misplacement in the past and re-positioning w/ IR, though most recently conversion of gastrojejunostomy tube to gastrostomy tube and placement of jejunostomy tube by dr. Santana in 08/2019. H/o H. pylori treated twice. Last EGD 05/2019 showed misplacement of J-tube coiled in stomach. EGD 07/2018 was completely normal w/ no food and minimal fluid and widely patent pylorus. Biopsies negative for celiac and H. pylori. Colonoscopy 09/26/18 (for abnormal MRE suspicious for mild pancolitis) revealed no evidence of colitis and two 2-4mm adenomatous polyps in ascendign colon. GES normal in 08/2018, then abnormal in 08/2019 (below). MRCP 08/2018 w/ hepatic adenoma, normal sized liver, mild hepatic steatosis, and likely syrinx at T12. Successful ultrasound and fluoroscopically guided placement of a right internal jugular PowerPort 11/25 depression, psych consulted PLAN TPN? home , not best plan, high risk of systemic infection, BUT MAY BE ONLY OPTION TODAY D/W CASE MGT PT/OT PSYCH CONSULT pending SMALL BOWEL SERIES 11/29 OK 27 min pt exam, chart review, > 50% of time spent with exam, chart review, pt care coordination History of Present Illness History of Present Illness Ms Mustafa is a 19 yo F w/ PMHx IBS, GERD, cyclic vomiting syndrome s/p multiple GJ tubes - issues ww/ misplacement in the past and re-positioning w/ IR, though most recently conversion of gastrojejunostomy tube to gastrostomy tube and placement of jejunostomy tube by dr. Santana in 08/2019 who is admitted for worsening nausea and vomiting as well as dizziness and room spinning when standing. Admitted with GI, general surgery, and neurology consultation. Abdominal XR shows constipation with probable fecal impaction. 11/22: Still with nausea and vomiting 11/23: Procalamine started, still with nausea 11/24: Still with nausea 11/25: Afebrile. She is still complaining of nausea to me. Requesting a pyloroplasty with general surgery. We did discuss the potential of domperidone which is been discussed with her outpatient as well. Also we discussed digital disimpaction, initiated prefers this be done by nurse. Port placed 11/27 Benzodiazepines have not been tried for the nausea in the past, trial of ativan Afebrile. Had small stool after suppository. Starting on tube feeds per surgery with tentative plans in 2 weeks to consider pyloroplasty. Nausea is the same. Right-sided abdominal pain improved. Vitals Vitals Vital Signs Date Time Temp Pulse Resp B/P (MAP) Pulse Ox O2 Delivery O2 Flow Rate FiO2 11/30/19 08:46 18 Room Air 11/30/19 07:15 98.2 101 102/56 (71) 99 98.2 Physical Exam General: Alert, Oriented X3, Cooperative, No acute distress Heart: Regular rate Lungs: Clear Abdomen: Normal bowel sounds, Soft, Other (g tube to DD) Extremities: No clubbing, No cyanosis, No edema Skin: No rashes Labs LABS EXAM: SMALL BOWEL FOLLOW-THROUGH. HISTORY: Nausea with jejunostomy tube feedings. COMPARISON: None. FINDINGS: A cage shift manager image was obtained. 400 mL Omnipaque 300 water-soluble contrast material was administered through the patient's jejunostomy tube over 2 minutes, and followed in its course through the small bowel and colon with fluoroscopy and plain radiographs. 15 fluoroscopic screen captures were obtained. Fluoroscopy time 1.4 minutes. The cage shift manager image demonstrates a nonobstructive bowel gas pattern. A gastrostomy and jejunostomy catheter are noted. Cholecystectomy clips are noted. The jejunostomy catheter enters the proximal small bowel in the right upper quadrant. Contrast proceeded through the proximal small bowel promptly. Peristalsis appeared normal. Contrast reached the colon in <15 minutes. No strictures or dilatation are seen. The small bowel fold pattern is unremarkable. The patient complained of nausea during and after injection. There was no vomiting during the procedure. IMPRESSION: 1. Contrast rapidly progressed through the small bowel into the colon in <15 minutes. No leak or other abnormality was identified. Electronically signed by: David Miles MD (11/30/2019 12:06 PM) [id number] DICTATED and SIGNED BY: KARL MILES MD DATE: 11/30/19 1206 Laboratory Tests Test 11/29/19 18:32 11/29/19 23:58 11/30/19 03:34 11/30/19 06:16 Glucose (Fingerstick) 91 mg/dL (70-99) 102 mg/dL (70-99) 103 mg/dL (70-99) White Blood Count 3.9 x10^3/uL (4.0-11.0) Red Blood Count 3.52 x10^6/uL (3.50-5.40) Hemoglobin 11.6 g/dL (12.0-15.5) Hematocrit 32.7 % (36.0-47.0) Mean Corpuscular Volume 93 fL (79-100) Mean Corpuscular Hemoglobin 33 pg (25-35) Mean Corpuscular Hemoglobin Concent 36 g/dL (31-37) Red Cell Distribution Width 13.4 % (11.5-14.5) Platelet Count 147 x10^3/uL (140-400) Neutrophils (%) (Auto) 48 % (31-73) Lymphocytes (%) (Auto) 40 % (24-48) Monocytes (%) (Auto) 9 % (0-9) Eosinophils (%) (Auto) 3 % (0-3) Basophils (%) (Auto) 1 % (0-3) Neutrophils # (Auto) 1.9 x10^3/uL (1.8-7.7) Lymphocytes # (Auto) 1.6 x10^3/uL (1.0-4.8) Monocytes # (Auto) 0.3 x10^3/uL (0.0-1.1) Eosinophils # (Auto) 0.1 x10^3/uL (0.0-0.7) Basophils # (Auto) 0.0 x10^3/uL (0.0-0.2) Sodium Level 142 mmol/L (136-145) Potassium Level 3.9 mmol/L (3.5-5.1) Chloride Level 105 mmol/L (98-107) Carbon Dioxide Level 25 mmol/L (21-32) Anion Gap 12 (6-14) Blood Urea Nitrogen 10 mg/dL (7-20) Creatinine 0.6 mg/dL (0.6-1.0) Estimated GFR (Cockcroft-Gault) 126.2 BUN/Creatinine Ratio 17 (6-20) Glucose Level 101 mg/dL (70-99) Calcium Level 8.3 mg/dL (8.5-10.1) Phosphorus Level 4.0 mg/dL (2.6-4.7) Magnesium Level 2.0 mg/dL (1.8-2.4) Total Bilirubin 0.2 mg/dL (0.2-1.0) Aspartate Amino Transf (AST/SGOT) 12 U/L (15-37) Alanine Aminotransferase (ALT/SGPT) 17 U/L (14-59) Alkaline Phosphatase 80 U/L (46-116) Total Protein 6.0 g/dL (6.4-8.2) Albumin 3.2 g/dL (3.4-5.0) Albumin/Globulin Ratio 1.1 (1.0-1.7) Triglycerides Level 52 mg/dL (0-150) Comment Review of Relevant I have reviewed the following items lalo (where applicable) has been applied. Labs Laboratory Tests Test 11/29/19 00:14 11/29/19 03:30 11/29/19 06:06 11/29/19 07:30 Glucose (Fingerstick) 116 mg/dL (70-99) 99 mg/dL (70-99) 112 mg/dL (70-99) Phosphorus Level 3.7 mg/dL (2.6-4.7) Magnesium Level 1.6 mg/dL (1.8-2.4) Test 11/29/19 18:32 11/29/19 23:58 11/30/19 03:34 11/30/19 06:16 Glucose (Fingerstick) 91 mg/dL (70-99) 102 mg/dL (70-99) 103 mg/dL (70-99) White Blood Count 3.9 x10^3/uL (4.0-11.0) Red Blood Count 3.52 x10^6/uL (3.50-5.40) Hemoglobin 11.6 g/dL (12.0-15.5) Hematocrit 32.7 % (36.0-47.0) Mean Corpuscular Volume 93 fL (79-100) Mean Corpuscular Hemoglobin 33 pg (25-35) Mean Corpuscular Hemoglobin Concent 36 g/dL (31-37) Red Cell Distribution Width 13.4 % (11.5-14.5) Platelet Count 147 x10^3/uL (140-400) Neutrophils (%) (Auto) 48 % (31-73) Lymphocytes (%) (Auto) 40 % (24-48) Monocytes (%) (Auto) 9 % (0-9) Eosinophils (%) (Auto) 3 % (0-3) Basophils (%) (Auto) 1 % (0-3) Neutrophils # (Auto) 1.9 x10^3/uL (1.8-7.7) Lymphocytes # (Auto) 1.6 x10^3/uL (1.0-4.8) Monocytes # (Auto) 0.3 x10^3/uL (0.0-1.1) Eosinophils # (Auto) 0.1 x10^3/uL (0.0-0.7) Basophils # (Auto) 0.0 x10^3/uL (0.0-0.2) Sodium Level 142 mmol/L (136-145) Potassium Level 3.9 mmol/L (3.5-5.1) Chloride Level 105 mmol/L (98-107) Carbon Dioxide Level 25 mmol/L (21-32) Anion Gap 12 (6-14) Blood Urea Nitrogen 10 mg/dL (7-20) Creatinine 0.6 mg/dL (0.6-1.0) Estimated GFR (Cockcroft-Gault) 126.2 BUN/Creatinine Ratio 17 (6-20) Glucose Level 101 mg/dL (70-99) Calcium Level 8.3 mg/dL (8.5-10.1) Phosphorus Level 4.0 mg/dL (2.6-4.7) Magnesium Level 2.0 mg/dL (1.8-2.4) Total Bilirubin 0.2 mg/dL (0.2-1.0) Aspartate Amino Transf (AST/SGOT) 12 U/L (15-37) Alanine Aminotransferase (ALT/SGPT) 17 U/L (14-59) Alkaline Phosphatase 80 U/L (46-116) Total Protein 6.0 g/dL (6.4-8.2) Albumin 3.2 g/dL (3.4-5.0) Albumin/Globulin Ratio 1.1 (1.0-1.7) Triglycerides Level 52 mg/dL (0-150) Laboratory Tests Test 11/29/19 18:32 11/29/19 23:58 11/30/19 03:34 11/30/19 06:16 Glucose (Fingerstick) 91 mg/dL (70-99) 102 mg/dL (70-99) 103 mg/dL (70-99) White Blood Count 3.9 x10^3/uL (4.0-11.0) Red Blood Count 3.52 x10^6/uL (3.50-5.40) Hemoglobin 11.6 g/dL (12.0-15.5) Hematocrit 32.7 % (36.0-47.0) Mean Corpuscular Volume 93 fL (79-100) Mean Corpuscular Hemoglobin 33 pg (25-35) Mean Corpuscular Hemoglobin Concent 36 g/dL (31-37) Red Cell Distribution Width 13.4 % (11.5-14.5) Platelet Count 147 x10^3/uL (140-400) Neutrophils (%) (Auto) 48 % (31-73) Lymphocytes (%) (Auto) 40 % (24-48) Monocytes (%) (Auto) 9 % (0-9) Eosinophils (%) (Auto) 3 % (0-3) Basophils (%) (Auto) 1 % (0-3) Neutrophils # (Auto) 1.9 x10^3/uL (1.8-7.7) Lymphocytes # (Auto) 1.6 x10^3/uL (1.0-4.8) Monocytes # (Auto) 0.3 x10^3/uL (0.0-1.1) Eosinophils # (Auto) 0.1 x10^3/uL (0.0-0.7) Basophils # (Auto) 0.0 x10^3/uL (0.0-0.2) Sodium Level 142 mmol/L (136-145) Potassium Level 3.9 mmol/L (3.5-5.1) Chloride Level 105 mmol/L (98-107) Carbon Dioxide Level 25 mmol/L (21-32) Anion Gap 12 (6-14) Blood Urea Nitrogen 10 mg/dL (7-20) Creatinine 0.6 mg/dL (0.6-1.0) Estimated GFR (Cockcroft-Gault) 126.2 BUN/Creatinine Ratio 17 (6-20) Glucose Level 101 mg/dL (70-99) Calcium Level 8.3 mg/dL (8.5-10.1) Phosphorus Level 4.0 mg/dL (2.6-4.7) Magnesium Level 2.0 mg/dL (1.8-2.4) Total Bilirubin 0.2 mg/dL (0.2-1.0) Aspartate Amino Transf (AST/SGOT) 12 U/L (15-37) Alanine Aminotransferase (ALT/SGPT) 17 U/L (14-59) Alkaline Phosphatase 80 U/L (46-116) Total Protein 6.0 g/dL (6.4-8.2) Albumin 3.2 g/dL (3.4-5.0) Albumin/Globulin Ratio 1.1 (1.0-1.7) Triglycerides Level 52 mg/dL (0-150) Microbiology 11/21/19 Urine Culture - Final, Complete Medications Current Medications Sodium Chloride 1,000 ml @ 1,000 mls/hr 1X ONCE IV Last administered on 11/21/19at 21:06; Start 11/21/19 at 21:00; Stop 11/21/19 at 21:59; Status DC Famotidine (Pepcid Vial) 20 mg 1X ONCE IVP Last administered on 11/21/19at 21:08; Start 11/21/19 at 21:00; Stop 11/21/19 at 21:01; Status DC Morphine Sulfate (Morphine Sulfate) 2 mg 1X ONCE IV Last administered on 11/21/19at 21:09; Start 11/21/19 at 21:00; Stop 11/21/19 at 21:01; Status DC Prochlorperazine Edisylate (Compazine) 10 mg 1X ONCE IV Last administered on 11/21/19at 21:08; Start 11/21/19 at 21:00; Stop 11/21/19 at 21:01; Status DC Ondansetron HCl (Zofran) 4 mg PRN Q8HRS PRN IV NAUSEA/VOMITING 1ST CHOICE Last administered on 11/22/19at 16:26; Start 11/21/19 at 23:00; Stop 11/22/19 at 22:59; Status DC Morphine Sulfate (Morphine Sulfate) 2 mg 1X ONCE IV Last administered on 11/21/19at 23:28; Start 11/21/19 at 23:45; Stop 11/21/19 at 23:46; Status DC Morphine Sulfate (Morphine Sulfate) 2 mg PRN Q2HR PRN IV SEVERE PAIN 7-10 Last administered on 11/22/19at 12:11; Start 11/22/19 at 01:45; Stop 11/22/19 at 13:25; Status DC Pantoprazole Sodium (PROTONIX VIAL for IV PUSH) 40 mg BIDAC IVP Last administered on 11/30/19at 08:04; Start 11/22/19 at 12:00 Bisacodyl (Dulcolax Supp) 10 mg 1X ONCE [place] Last administered on 11/22/19at 12:11; Start 11/22/19 at 12:00; Stop 11/22/19 at 12:01; Status DC Dicyclomine HCl (Bentyl) 10 mg PRN QID PRN PO GI SYMPTOMS; Start 11/22/19 at 13:30 Methylnaltrexone [place] (Relistor) 12 mg 1X ONCE SQ Last administered on 11/22/19at 14:27; Start 11/22/19 at 14:00; Stop 11/22/19 at 14:01; Status DC Metoclopramide HCl (Reglan Vial) 10 mg PRN Q6HRS PRN IVP NAUSEA/VOMITING 3RD CHOICE Last administered on 11/28/19at 06:39; Start 11/22/19 at 15:30 Morphine Sulfate (Morphine Sulfate) 2 mg PRN Q2HR PRN IV PAIN Last administered on 11/30/19at 08:12; Start 11/22/19 at 17:00 Sodium Chloride 1,000 ml @ 75 mls/hr [id number] IV Last administered on 11/22/19at 19:53; Start 11/22/19 at 20:00; Stop 11/22/19 at 20:11; Status DC Amino Acids/ Glycerin/ Electrolytes 1,000 ml @ 75 mls/hr [id number] IV Last administered on 11/27/19at 08:48; Start 11/22/19 at 21:00; Stop 11/27/19 at 21:59; Status DC Ondansetron HCl (Zofran) 4 mg PRN Q6HRS PRN IVP NAUSEA/VOMITING 1ST CHOICE Last administered on 11/29/19at 20:14; Start 11/22/19 at 23:30 Prochlorperazine Edisylate (Compazine) 10 mg PRN Q6HRS PRN IV NAUSEA/VOMITING 2ND CHOICE Last administered on 11/29/19at 18:03; Start 11/22/19 at 23:30 Nystatin (Nystatin Oral Susp) 5 ml [id number] Last administered on 11/30/19at 08:04; Start 11/24/19 at 13:00 Lidocaine/ Epinephrine (LIDOCAINE 1%-EPI 1:100,000 Multi-Dose) 20 ml STK-MED ONCE .ROUTE ; Start 11/26/19 at 10:54; Stop 11/26/19 at 10:57; Status DC Cefazolin Sodium (Ancef) 1 gm STK-MED ONCE IVP ; Start 11/26/19 at 11:20; Stop 11/26/19 at 11:26; Status DC Midazolam HCl (Versed) 2 mg STK-MED ONCE .ROUTE ; Start 11/26/19 at 11:20; Stop 11/26/19 at 11:26; Status DC Fentanyl Citrate (Fentanyl 2ml Vial) 100 mcg STK-MED ONCE .ROUTE ; Start 11/26/19 at 11:21; Stop 11/26/19 at 11:26; Status DC Midazolam HCl (Versed) 2 mg 1X ONCE IV Last administered on 11/26/19at 11:38; Start 11/26/19 at 12:00; Stop 11/26/19 at 12:03; Status DC Fentanyl Citrate (Fentanyl 2ml Vial) 100 mcg 1X ONCE IV Last administered on 11/26/19at 12:00; Start 11/26/19 at 12:00; Stop 11/26/19 at 12:01 Lidocaine/ Epinephrine (LIDOCAINE 1%-EPI 1:100,000 Multi-Dose) 20 ml 1X ONCE SQ Last administered on 11/26/19at 12:00; Start 11/26/19 at 12:00; Stop 11/26/19 at 12:03; Status DC Cefazolin Sodium (Ancef) 1 gm 1X ONCE IVP Last administered on 11/26/19at 12:00; Start 11/26/19 at 12:00; Stop 11/26/19 at 12:03; Status DC Bisacodyl (Dulcolax Supp) 10 mg PRN DAILY PRN NH CONSTIPATION, 1sT CHOICE Last administered on 11/26/19at 13:30; Start 11/26/19 at 13:30 Docusate Sodium (Enemeez) 283 mg PRN DAILY PRN NH CONSTIPATION, 2nd CHOICE; Start 11/26/19 at 19:00 Diphenhydramine HCl (Benadryl) 12.5 mg 1X ONCE IV Last administered on 11/26/19at 23:13; Start 11/26/19 at 23:00; Stop 11/26/19 at 23:01; Status DC Info (Tpn Per Pharmacy) 1 each PRN DAILY PRN MC SEE COMMENTS; Start 11/27/19 at 09:30; Stop 11/27/19 at 09:55; Status DC Lorazepam (Ativan Inj) 0.5 mg PRN Q4HRS PRN IVP nausea, unrel by other meds; Start 11/27/19 at 13:45; Stop 11/29/19 at 14:26; Status DC Lorazepam (Ativan Inj) 1 mg PRN Q4HRS PRN IVP nausea, unrel by other meds; Start 11/27/19 at 13:45; Stop 11/29/19 at 14:26; Status DC Lorazepam (Ativan Inj) 2 mg PRN Q4HRS PRN IVP nausea, unrel by other meds Last administered on 11/28/19at 11:59; Start 11/27/19 at 13:45; Stop 11/29/19 at 14:26; Status DC Potassium Chloride/Water 100 ml @ 100 mls/hr PRN Q1HR PRN IV SEE COMMENTS; Start 11/28/19 at 11:00 Magnesium Sulfate 50 ml @ 25 mls/hr Q24H IV Last administered on 11/29/19at 11:00; Start 11/28/19 at 11:00; Stop 11/30/19 at 12:59 Potassium Phos/ Sodium Phos (Phos-Nak) 1 pkt BID PO Last administered on 11/28/19at 21:25; Start 11/28/19 at 11:00; Stop 11/28/19 at 21:01; Status DC Potassium Chloride/Water 100 ml @ 100 mls/hr PRN Q1HR PRN IV SEE COMMENTS; Start 11/28/19 at 11:00 Magnesium Hydroxide (Milk Of Magnesia) 2,400 mg DAILY JT Last administered on 11/30/19at 08:04; Start 11/28/19 at 12:00 Info (Tpn Per Pharmacy) 1 each PRN DAILY PRN MC SEE COMMENTS Last administered on 11/29/19at 12:38; Start 11/28/19 at 14:15 Sodium Chloride 90 meq/Potassium Chloride 50 meq/ Potassium Phosphate 13.6 mmol/Magnesium Sulfate 10 meq/ Calcium Gluconate 10 meq/ Multivitamins 10 ml/Ch romium/ Copper/Manganese/ Seleni/Zn 1 ml/ Total Parenteral Nutrition/Amino Acids/Dextrose/ Fat Emulsion Intravenous 1,512 ml @ 63 mls/hr TPN CONT IV Last administered on 11/28/19at 21:40; Start 11/28/19 at 22:00; Stop 11/29/19 at 21:59; Status DC Sodium Chloride 90 meq/Potassium Chloride 50 meq/ Potassium Phosphate 13.6 mmol/Magnesium Sulfate 15 meq/ Calcium Gluconate 10 meq/ Multivitamins 10 ml/Chromium/ Copper/Manganese/ Seleni/Zn 1 ml/ Total Parenteral Nutrition/Amino Acids/Dextrose/ Fat Emulsion Intravenous 1,512 ml @ 63 mls/hr TPN CONT IV Last administered on 11/29/19at 22:41; Start 11/29/19 at 22:00; Stop 11/30/19 at 21:59 Iohexol (Omnipaque 300 Mg/ml) 400 ml 1X ONCE IJ ; Start 11/30/19 at 08:30; Stop 11/30/19 at 08:31; Status DC Info (CONTRAST GIVEN -- Rx MONITORING) 1 each PRN DAILY PRN MC SEE COMMENTS; Start 11/30/19 at 08:30; Stop 12/02/19 at 08:29 Active Scripts Active Lactated Ringers (Ringers Solution,Lactated) 1,000 Ml Iv.soln 1,000 Ml IV DAILY Keflex (Cephalexin) 500 Mg Capsule 1 Cap PO TID 4 Days Miralax (Polyethylene Glycol 3350) 17 Gm Powd.pack 1 Packet PO DAILY 15 Days dissolve in water Hydrocodone-Apap 7.5-325/15 Soln (Hydrocodone Bit/Acetaminophen) 15 Ml Solution 15 Ml JT PRN Q6HRS PRN Reported Advair Hfa 230-21 Mcg Inhaler (Fluticasone/Salmeterol) 12 Gm Hfa.aer.ad 1 Inh IH BID Buspirone Hcl 10 Mg Tablet 0.5 Tab PO BID Reglan (Metoclopramide Hcl) 10 Mg Tablet 10 Mg PO QIDACHS Zelnorm (Tegaserod Hydrogen Maleate) 6 Mg Tablet 6 Mg GT BID Amitriptyline Hcl 75 Mg Tablet 75 Mg PO QHS Dicyclomine Hcl 20 Mg Tablet 20 Mg GT PRN QID PRN Stool Softener (Docusate Sodium) 50 Mg Capsule 50 Mg PO PRN HS Olopatadine HCl 5 Ml Drops 0.1 % OP PRN DAILY PRN Promethazine Hcl 12.5 Mg Tablet 25 Mg GT Q6H PRN Trazodone Hcl 50 Mg Tablet 50 Mg GT HS Maxalt (Rizatriptan Benzoate) 10 Mg Tablet 5 Mg GT PRN DAILY PRN Valproic Acid (Valproate Sodium) 250 Mg/5 Ml Solution 15 Ml PO BID Coq-10 (Ubidecarenone) 100 Mg Capsule 200 Mg GT DAILY Vitamin D3 (Cholecalciferol (Vitamin D3)) 4,000 Unit Capsule 2,000 Unit PO HS Xyzal (Levocetirizine Dihydrochloride) 5 Mg Tablet 5 Mg GT HS Proair Hfa (Albuterol Sulfate) 8.5 Gm Hfa.aer.ad 2 Puff IH PRN Q4-6HRS PRN 21 Days Ipratropium [place] 30 Ml Richardson 1 Richardson NS DAILY Duoneb 0.5-3(2.5) Mg/3 Ml (Albuterol/Ipratropium) 3 Ml Ampul.neb 3 Ml NEB PRN QID PRN Protonix (Pantoprazole Sodium) 20 Mg Tablet.dr 40 Mg GT HS Montelukast Sodium Tablet (Montelukast Sodium) 10 Mg Tablet 10 Mg GT DAILY PRN Magnesium Oxide 250 Mg Tablet 1 Tab PO DAILY 30 Days Multi Vitamin Daily (Multivitamin) 1 Each Tablet 1 Each GT DAILY Metoprolol Tartrate 50 Mg Tablet 50 Mg GT BID Vitals/I & O Vital Sign - Last 24 Hours 11/29/19 11/29/19 11/29/19 11/29/19 10:58 11:00 13:02 15:00 Temp 98.0 97.8 98.0 97.8 Pulse 64 95 Resp 18 16 B/P (MAP) 102/65 (77) 98/60 (73) Pulse Ox 92 95 O2 Delivery Room Air Room Air Room Air Room Air 11/29/19 11/29/19 11/29/19 11/29/19 16:30 19:00 20:15 20:15 Temp 98.8 98.8 Pulse 94 Resp 18 20 B/P (MAP) 98/54 (69) Pulse Ox 94 O2 Delivery Room Air Room Air Room Air Room Air 11/29/19 11/29/19 11/30/19 11/30/19 21:00 23:00 03:00 07:15 Temp 98.7 97.7 98.2 98.7 97.7 98.2 Pulse 80 93 101 Resp 18 18 18 14 B/P (MAP) 99/56 (70) 90/51 (64) 102/56 (71) Pulse Ox 95 94 99 O2 Delivery Room Air Room Air Room Air Room Air 11/30/19 11/30/19 11/30/19 08:00 08:12 08:46 Resp 16 18 O2 Delivery Room Air Room Air Room Air Intake and Output 11/29/19 11/29/19 11/30/19 15:00 23:00 07:00 Intake Total 0 ml Balance 0 ml Justicifation of Admission Dx: Justifications for Admission: Justification of Admission Dx: JEFFERSON Uribe MD Nov 30, 2019 09:25
--- NOTE | 2019-11-30 09:35 | PDOC ---
Subjective: Subjective: "I feel good!" No nausea, no abd pain. Hasn't stooled today but took MoM again. Awaiting SBS. Objective: Vital Signs: Vital Signs Date Time Temp Pulse Resp B/P (MAP) Pulse Ox O2 Delivery O2 Flow Rate FiO2 11/30/19 08:46 18 Room Air 11/30/19 07:15 98.2 101 102/56 (71) 99 98.2 Labs: Laboratory Tests Test 11/29/19 18:32 11/29/19 23:58 11/30/19 03:34 11/30/19 06:16 Glucose (Fingerstick) 91 mg/dL 102 mg/dL 103 mg/dL White Blood Count 3.9 x10^3/uL Red Blood Count 3.52 x10^6/uL Hemoglobin 11.6 g/dL Hematocrit 32.7 % Mean Corpuscular Volume 93 fL Mean Corpuscular Hemoglobin 33 pg Mean Corpuscular Hemoglobin Concent 36 g/dL Red Cell Distribution Width 13.4 % Platelet Count 147 x10^3/uL Neutrophils (%) (Auto) 48 % Lymphocytes (%) (Auto) 40 % Monocytes (%) (Auto) 9 % Eosinophils (%) (Auto) 3 % Basophils (%) (Auto) 1 % Neutrophils # (Auto) 1.9 x10^3/uL Lymphocytes # (Auto) 1.6 x10^3/uL Monocytes # (Auto) 0.3 x10^3/uL Eosinophils # (Auto) 0.1 x10^3/uL Basophils # (Auto) 0.0 x10^3/uL Sodium Level 142 mmol/L Potassium Level 3.9 mmol/L Chloride Level 105 mmol/L Carbon Dioxide Level 25 mmol/L Anion Gap 12 Blood Urea Nitrogen 10 mg/dL Creatinine 0.6 mg/dL Estimated GFR (Cockcroft-Gault) 126.2 BUN/Creatinine Ratio 17 Glucose Level 101 mg/dL Calcium Level 8.3 mg/dL Phosphorus Level 4.0 mg/dL Magnesium Level 2.0 mg/dL Total Bilirubin 0.2 mg/dL Aspartate Amino Transf (AST/SGOT) 12 U/L Alanine Aminotransferase (ALT/SGPT) 17 U/L Alkaline Phosphatase 80 U/L Total Protein 6.0 g/dL Albumin 3.2 g/dL Albumin/Globulin Ratio 1.1 Triglycerides Level 52 mg/dL Imaging: SBS 11/29 pending PE: GEN: NAD, smiling LUNGS: CTAB HEART: RRR ABD: tubes, soft, non-tender NEURO/PSYCH: A & O 3 - more perky today A/P: Chronic n/v, right-sided abd pain, constipation H/o gastroparesis G tube and J tube and port in place, on TPN -- Feels better on TPN. Await SBS, continue treatment for constipation. Justicifation of Admission Dx: Justifications for Admission: Justification of Admission Dx: LIA Land Nov 30, 2019 09:35
--- NOTE | 2019-11-30 09:42 | PDOC ---
SURGICAL PROGRESS NOTE Subjective Patient states she is feeling somewhat better especially with no tube feeds Vital Signs Vital Signs Date Time Temp Pulse Resp B/P (MAP) Pulse Ox O2 Delivery O2 Flow Rate FiO2 11/30/19 08:46 18 Room Air 11/30/19 07:15 98.2 101 102/56 (71) 99 98.2 I&O Intake and Output 11/30/19 07:00 Intake Total 0 ml Balance 0 ml Intake Oral 0 ml # Voids 3 PATIENT HAS A GONSALES: No General: Alert, Oriented X3, Cooperative, mild distress Abdomen: Normal bowel sounds, Soft, No tenderness Labs Laboratory Tests Test 11/29/19 00:14 11/29/19 03:30 11/29/19 06:06 11/29/19 07:30 Glucose (Fingerstick) 116 mg/dL (70-99) 99 mg/dL (70-99) 112 mg/dL (70-99) Phosphorus Level 3.7 mg/dL (2.6-4.7) Magnesium Level 1.6 mg/dL (1.8-2.4) Test 11/29/19 18:32 11/29/19 23:58 11/30/19 03:34 11/30/19 06:16 Glucose (Fingerstick) 91 mg/dL (70-99) 102 mg/dL (70-99) 103 mg/dL (70-99) White Blood Count 3.9 x10^3/uL (4.0-11.0) Red Blood Count 3.52 x10^6/uL (3.50-5.40) Hemoglobin 11.6 g/dL (12.0-15.5) Hematocrit 32.7 % (36.0-47.0) Mean Corpuscular Volume 93 fL (79-100) Mean Corpuscular Hemoglobin 33 pg (25-35) Mean Corpuscular Hemoglobin Concent 36 g/dL (31-37) Red Cell Distribution Width 13.4 % (11.5-14.5) Platelet Count 147 x10^3/uL (140-400) Neutrophils (%) (Auto) 48 % (31-73) Lymphocytes (%) (Auto) 40 % (24-48) Monocytes (%) (Auto) 9 % (0-9) Eosinophils (%) (Auto) 3 % (0-3) Basophils (%) (Auto) 1 % (0-3) Neutrophils # (Auto) 1.9 x10^3/uL (1.8-7.7) Lymphocytes # (Auto) 1.6 x10^3/uL (1.0-4.8) Monocytes # (Auto) 0.3 x10^3/uL (0.0-1.1) Eosinophils # (Auto) 0.1 x10^3/uL (0.0-0.7) Basophils # (Auto) 0.0 x10^3/uL (0.0-0.2) Sodium Level 142 mmol/L (136-145) Potassium Level 3.9 mmol/L (3.5-5.1) Chloride Level 105 mmol/L (98-107) Carbon Dioxide Level 25 mmol/L (21-32) Anion Gap 12 (6-14) Blood Urea Nitrogen 10 mg/dL (7-20) Creatinine 0.6 mg/dL (0.6-1.0) Estimated GFR (Cockcroft-Gault) 126.2 BUN/Creatinine Ratio 17 (6-20) Glucose Level 101 mg/dL (70-99) Calcium Level 8.3 mg/dL (8.5-10.1) Phosphorus Level 4.0 mg/dL (2.6-4.7) Magnesium Level 2.0 mg/dL (1.8-2.4) Total Bilirubin 0.2 mg/dL (0.2-1.0) Aspartate Amino Transf (AST/SGOT) 12 U/L (15-37) Alanine Aminotransferase (ALT/SGPT) 17 U/L (14-59) Alkaline Phosphatase 80 U/L (46-116) Total Protein 6.0 g/dL (6.4-8.2) Albumin 3.2 g/dL (3.4-5.0) Albumin/Globulin Ratio 1.1 (1.0-1.7) Triglycerides Level 52 mg/dL (0-150) Laboratory Tests Test 11/29/19 18:32 11/29/19 23:58 11/30/19 03:34 11/30/19 06:16 Glucose (Fingerstick) 91 mg/dL (70-99) 102 mg/dL (70-99) 103 mg/dL (70-99) White Blood Count 3.9 x10^3/uL (4.0-11.0) Red Blood Count 3.52 x10^6/uL (3.50-5.40) Hemoglobin 11.6 g/dL (12.0-15.5) Hematocrit 32.7 % (36.0-47.0) Mean Corpuscular Volume 93 fL (79-100) Mean Corpuscular Hemoglobin 33 pg (25-35) Mean Corpuscular Hemoglobin Concent 36 g/dL (31-37) Red Cell Distribution Width 13.4 % (11.5-14.5) Platelet Count 147 x10^3/uL (140-400) Neutrophils (%) (Auto) 48 % (31-73) Lymphocytes (%) (Auto) 40 % (24-48) Monocytes (%) (Auto) 9 % (0-9) Eosinophils (%) (Auto) 3 % (0-3) Basophils (%) (Auto) 1 % (0-3) Neutrophils # (Auto) 1.9 x10^3/uL (1.8-7.7) Lymphocytes # (Auto) 1.6 x10^3/uL (1.0-4.8) Monocytes # (Auto) 0.3 x10^3/uL (0.0-1.1) Eosinophils # (Auto) 0.1 x10^3/uL (0.0-0.7) Basophils # (Auto) 0.0 x10^3/uL (0.0-0.2) Sodium Level 142 mmol/L (136-145) Potassium Level 3.9 mmol/L (3.5-5.1) Chloride Level 105 mmol/L (98-107) Carbon Dioxide Level 25 mmol/L (21-32) Anion Gap 12 (6-14) Blood Urea Nitrogen 10 mg/dL (7-20) Creatinine 0.6 mg/dL (0.6-1.0) Estimated GFR (Cockcroft-Gault) 126.2 BUN/Creatinine Ratio 17 (6-20) Glucose Level 101 mg/dL (70-99) Calcium Level 8.3 mg/dL (8.5-10.1) Phosphorus Level 4.0 mg/dL (2.6-4.7) Magnesium Level 2.0 mg/dL (1.8-2.4) Total Bilirubin 0.2 mg/dL (0.2-1.0) Aspartate Amino Transf (AST/SGOT) 12 U/L (15-37) Alanine Aminotransferase (ALT/SGPT) 17 U/L (14-59) Alkaline Phosphatase 80 U/L (46-116) Total Protein 6.0 g/dL (6.4-8.2) Albumin 3.2 g/dL (3.4-5.0) Albumin/Globulin Ratio 1.1 (1.0-1.7) Triglycerides Level 52 mg/dL (0-150) Assessment/Plan Gastroparesis with nausea appears to be better when not receiving tube feeds she is on TPN No surgical plans at this time Justicifation of Admission Dx: Justifications for Admission: Justification of Admission Dx: No JEFFERSON MORRIS MD Nov 30, 2019 09:42
[2019-11-30] MEDS ORDERED: IOHEXOL 300 MG/ML 100ML VIAL. PO ONE (09:45)
[2019-11-30] MEDS: MAGNESIUM SULFATE 2GM 50 ML IV SCH ×2 (11:00→11:39)
[2019-11-30 11:30] VITALS: BP 110/70
[2019-11-30] MEDS: ONDANSETRON PF 4 MG/2 ML VIAL. IVP PRN ×2 (11:39→17:47)
[2019-11-30] MEDS: TPN PER PHARMACY MC PRN (11:57)
--- NOTE | 2019-11-30 11:59 | NUR ---
Pharmacy TPN Dosing Note S: MARIONSUNITHA Billingsley is a 19 year old F Currently receiving Central Continuous TPN started 11/28/19 B:Pertinent PMH: NPO Height: 5 feet, 7 inches Weight: 75.3 kg Current diet: TF/NOT TOLERATED LABS: Sodium: 142 Potassium: 3.9 Chloride: 105 Calcium: 8.3 Corrected Calcium: 8.94 Magnesium: 2 CO2: 25 SCr: 0.6 Glucose: 9. Albumin: 3.2 AST: 12 ALT: 17 TPN FORMULA: TPN TYPE: Central Continuous AMINO ACIDS: 75 gm DEXTROSE: 250 gm LIPIDS: 30 gm SODIUM CHLORIDE: 90 mEq POTASSIUM CHLORIDE: 50 mEq POTASSIUM PHOSPHATE: 13.6 mmol MAGNESIUM: 15 mEq CALCIUM: 10 mEq MULTIPLE VITAMIN: 10 ml TRACE ELEMENTS: 1 ml(s) TPN PLAN: Continue same R: Continue TPN Will monitor electrolytes, glucose, and tolerance to TPN. Renu Melgar RPH, 11/30/19 [id number]
--- NOTE | 2019-11-30 12:09 | RAD ---
EXAM: SMALL BOWEL FOLLOW-THROUGH. HISTORY: Nausea with jejunostomy tube feedings. COMPARISON: None. FINDINGS: A supervisor paint department image was obtained. 400 mL Omnipaque 300 water-soluble contrast material was administered through the patient's jejunostomy tube over 2 minutes, and followed in its course through the small bowel and colon with fluoroscopy and plain radiographs. 15 fluoroscopic screen captures were obtained. Fluoroscopy time 1.4 minutes. The supervisor paint department image demonstrates a nonobstructive bowel gas pattern. A gastrostomy and jejunostomy catheter are noted. Cholecystectomy clips are noted. The jejunostomy catheter enters the proximal small bowel in the right upper quadrant. Contrast proceeded through the proximal small bowel promptly. Peristalsis appeared normal. Contrast reached the colon in <15 minutes. No strictures or dilatation are seen. The small bowel fold pattern is unremarkable. The patient complained of nausea during and after injection. There was no vomiting during the procedure. IMPRESSION: 1. Contrast rapidly progressed through the small bowel into the colon in <15 minutes. No leak or other abnormality was identified. Electronically signed by: David Miles MD (11/30/2019 12:06 PM) [id number]
--- NOTE | 2019-11-30 12:28 | NUR ---
NIXON following. Coordinated care with JACEK and Dr. Wilson. Reviewed chart. Patient is not ready for discharge. GI to do a small bowel series to see if TPN is needed long-term. NIXON to continue following. NIXON did call and LVM for Nikki ([phone]) to update. NIXON to continue following. Addendum: 11/30/19 at 1321 by TONYA ALICEA Spoke with RN and Dr. Wilson and TPN will be needed. NIXON phoned and faxed TPN referral to Arvind with [facility], , (fax). Arvind to check benefits. Pt's TPN will be managed by [facility] out-patient. [facility] but will review referral. [facility], , ([facility] Pt added to the weekend discharge list per potential discharge. Pt will not discharge today per Dr. Wilson as pt continues to have nausea. NIXON to continue following. Addendum: 11/30/19 at 1607 by TONYA ALICEA Arvind with [facility] stated TPN covered at 100 percent with pt's insurance. SW obtained TPN order from [facility] and it was signed by Dr. Wilson and faxed back to [facility]. Arvind from [facility] stated that their RN can manage the PICC. Spoke with pt who stated she manages here gtube and jtube and does not need HH from [facility] to manage these. Spoke with Aliyah from [facility] who stated they will not take pt back as there are no HH needs at this time and she was just discharged off services. Spoke with who put in HH RN orders for [facility] to manage the PICC. Pt will discharge today, 11/30/2019 with family and [facility] to see pt this weekend. All discharge orders phoned and faxed to [facility], , (fax). Pt stated appreciation and understanding of the discharge plan. No further SW needs at this time.
[2019-11-30 15:00] VITALS: BP 97/59
--- NOTE | 2019-11-30 16:07 | PDOC3 ---
Discharge Summary Date of Admission: Nov 21, 2019 Date of Discharge: Nov 30, 2019 Follow-Up: 1-2 days Admitting Diagnosis comment: DISCHARGE DX Persistent nausea despite the following : Severe gastroparesis (she has been seen at the [facility] and among other places) Status post GJ tube and she WAS on continuous pump of feeds at 60 cc an hour at home NOW ON HOLD due to pain Cyclic vomiting syndrome rectal fecal impaction GJ tube Severe gastroparesis Cyclic vomiting syndrome G-tube (x 20), J-tube, GERD, hypertension, gastroparesis, cyclic vomiting, cholecystectomy, tonsillectomy. 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 Many GJ tubes - issues ww/ misplacement in the past and re-positioning w/ IR, though most recently conversion of gastrojejunostomy tube to gastrostomy tube and placement of jejunostomy tube by dr. Santana in 08/2019. H/o H. pylori treated twice. Last EGD 05/2019 showed misplacement of J-tube coiled in stomach. EGD 07/2018 was completely normal w/ no food and minimal fluid and widely patent pylorus. Biopsies negative for celiac and H. pylori. Colonoscopy 09/26/18 (for abnormal MRE suspicious for mild pancolitis) revealed no evidence of colitis and two 2-4mm adenomatous polyps in ascendign colon. GES normal in 08/2018, then abnormal in 08/2019 (below). MRCP 08/2018 w/ hepatic adenoma, normal sized liver, mild hepatic steatosis, and likely syrinx at T12. Successful ultrasound and fluoroscopically guided placement of a right internal jugular PowerPort 11/25 depression, psych consulted PLAN TPN? home , not best plan, high risk of systemic infection, BUT MAY BE ONLY OPTION TODAY D/W CASE MGT PT/OT PSYCH CONSULT pending SMALL BOWEL SERIES 11/29 OK 37 min pt exam, chart review, D/C PLANNING TIME > 50% of time spent with exam, chart review, pt care coordination History of Present Illness History of Present Illness Ms Mustafa is a 19 yo F w/ PMHx IBS, GERD, cyclic vomiting syndrome s/p multiple GJ tubes - issues ww/ misplacement in the past and re-positioning w/ IR, though most recently conversion of gastrojejunostomy tube to gastrostomy tube and placement of jejunostomy tube by dr. Santana in 08/2019 who is admitted for worsen ing nausea and vomiting as well as dizziness and room spinning when standing. Admitted with GI, general surgery, and neurology consultation. Abdominal XR shows constipation with probable fecal impaction. 11/22: Still with nausea and vomiting 11/23: Procalamine started, still with nausea 11/24: Still with nausea 11/25: Afebrile. She is still complaining of nausea to me. Requesting a pylor oplasty with general surgery. We did discuss the potential of domperidone which is been discussed with her outpatient as well. Also we discussed digital disimpaction, initiated prefers this be done by nurse. Port placed 11/27 Benzodiazepines have not been tried for the nausea in the past, trial of ativan Afebrile. Had small stool after suppository. Starting on tube feeds per surgery with tentative plans in 2 weeks to consider pyloroplasty. Nausea is the same. Right-sided abdominal pain improved. Vitals Vitals Vital Signs Date Time Temp Pulse Resp B/P (MAP) Pulse Ox O2 Delivery O2 Flow Rate FiO2 11/30/19 08:46 18 Room Air 11/30/19 07:15 98.2 101 102/56 (71) 99 98.2 Physical Exam General: Alert, Oriented X3, Cooperative, No acute distress Heart: Regular rate Lungs: Clear Abdomen: Normal bowel sounds, Soft, Other (g tube to DD) Extremities: No clubbing, No cyanosis, No edema Skin: No rashes Labs LABS EXAM: SMALL BOWEL FOLLOW-THROUGH. HISTORY: Nausea with jejunostomy tube feedings. COMPARISON: None. FINDINGS: A welding machine operator helper arc image was obtained. 400 mL Omnipaque 300 water-soluble contrast material was administered through the patient's jejunostomy tube over 2 minutes, and followed in its course through the small bowel and colon with fluoroscopy and plain radiographs. 15 fluoroscopic screen captures were obtained. Fluoroscopy time 1.4 minutes. The welding machine operator helper arc image demonstrates a nonobstructive bowel gas pattern. A gastrostomy and jejunostomy catheter are noted. Cholecystectomy clips are noted. The jejunostomy catheter enters the proximal small bowel in the right upper quadrant. Contrast proceeded through the proximal small bowel promptly. Peristalsis appeared normal. Contrast reached the colon in <15 minutes. No strictures or dilatation are seen. The small bowel fold pattern is unremarkable. The patient complained of nausea during and after injection. There was no vomiting during the procedure. IMPRESSION: 1. Contrast rapidly progressed through the small bowel into the colon in <15 minutes. No leak or other abnormality was identified. Electronically signed by: David Miles MD (11/30/2019 12:06 PM) [id number] DICTATED and SIGNED BY: KARL MILES MD DATE: 11/30/19 1206 Laboratory Tests Brief Hospital Course Ms. Mustafa is a 19 old [sex] who presented with [ INTRACTABLE VOMITING] CONDITION AT DISCHARGE: Improved Discharge Medications Current Medications Sodium Chloride 1,000 ml @ 1,000 mls/hr 1X ONCE IV Last administered on 11/21/19at 21:06; Start 11/21/19 at 21:00; Stop 11/21/19 at 21:59; Status DC Famotidine (Pepcid Vial) 20 mg 1X ONCE IVP Last administered on 11/21/19at 21:08; Start 11/21/19 at 21:00; Stop 11/21/19 at 21:01; Status DC Morphine Sulfate (Morphine Sulfate) 2 mg 1X ONCE IV Last administered on 11/21/19at 21:09; Start 11/21/19 at 21:00; Stop 11/21/19 at 21:01; Status DC Prochlorperazine Edisylate (Compazine) 10 mg 1X ONCE IV Last administered on 11/21/19at 21:08; Start 11/21/19 at 21:00; Stop 11/21/19 at 21:01; Status DC Ondansetron HCl (Zofran) 4 mg PRN Q8HRS PRN IV NAUSEA/VOMITING 1ST CHOICE Last administered on 11/22/19at 16:26; Start 11/21/19 at 23:00; Stop 11/22/19 at 22:59; Status DC Morphine Sulfate (Morphine Sulfate) 2 mg 1X ONCE IV Last administered on 11/21/19at 23:28; Start 11/21/19 at 23:45; Stop 11/21/19 at 23:46; Status DC Morphine Sulfate (Morphine Sulfate) 2 mg PRN Q2HR PRN IV SEVERE PAIN 7-10 Last administered on 11/22/19at 12:11; Start 11/22/19 at 01:45; Stop 11/22/19 at 13:25; Status DC Pantoprazole Sodium (PROTONIX VIAL for IV PUSH) 40 mg BIDAC IVP Last administered on 11/30/19at 08:04; Start 11/22/19 at 12:00 Bisacodyl (Dulcolax Supp) 10 mg 1X ONCE [place] Last administered on 11/22/19at 12:11; Start 11/22/19 at 12:00; Stop 11/22/19 at 12:01; Status DC Dicyclomine HCl (Bentyl) 10 mg PRN QID PRN PO GI SYMPTOMS; Start 11/22/19 at 13:30 Methylnaltrexone [place] (Relistor) 12 mg 1X ONCE SQ Last administered on 11/22/19at 14:27; Start 11/22/19 at 14:00; Stop 11/22/19 at 14:01; Status DC Metoclopramide HCl (Reglan Vial) 10 mg PRN Q6HRS PRN IVP NAUSEA/VOMITING 3RD CHOICE Last administered on 11/28/19at 06:39; Start 11/22/19 at 15:30 Morphine Sulfate (Morphine Sulfate) 2 mg PRN Q2HR PRN IV PAIN Last administered on 11/30/19at 14:54; Start 11/22/19 at 17:00 Sodium Chloride 1,000 ml @ 75 mls/hr [id number] IV Last administered on 11/22/19at 19:53; Start 11/22/19 at 20:00; Stop 11/22/19 at 20:11; Status DC Amino Acids/ Glycerin/ Electrolytes 1,000 ml @ 75 mls/hr [id number] IV Last administered on 11/27/19at 08:48; Start 11/22/19 at 21:00; Stop 11/27/19 at 21:59; Status DC Ondansetron HCl (Zofran) 4 mg PRN Q6HRS PRN IVP NAUSEA/VOMITING 1ST CHOICE Last administered on 11/30/19at 11:39; Start 11/22/19 at 23:30 Prochlorperazine Edisylate (Compazine) 10 mg PRN Q6HRS PRN IV NAUSEA/VOMITING 2ND CHOICE Last administered on 11/29/19at 18:03; Start 11/22/19 at 23:30 Nystatin (Nystatin Oral Susp) 5 ml [id number] Last administered on 11/30/19at 12:52; Start 11/24/19 at 13:00 Lidocaine/ Epinephrine (LIDOCAINE 1%-EPI 1:100,000 Multi-Dose) 20 ml STK-MED ONCE .ROUTE ; Start 11/26/19 at 10:54; Stop 11/26/19 at 10:57; Status DC Cefazolin Sodium (Ancef) 1 gm STK-MED ONCE IVP ; Start 11/26/19 at 11:20; Stop 11/26/19 at 11:26; Status DC Midazolam HCl (Versed) 2 mg STK-MED ONCE .ROUTE ; Start 11/26/19 at 11:20; Stop 11/26/19 at 11:26; Status DC Fentanyl Citrate (Fentanyl 2ml Vial) 100 mcg STK-MED ONCE .ROUTE ; Start 11/26/19 at 11:21; Stop 11/26/19 at 11:26; Status DC Midazolam HCl (Versed) 2 mg 1X ONCE IV Last administered on 11/26/19at 11:38; Start 11/26/19 at 12:00; Stop 11/26/19 at 12:03; Status DC Fentanyl Citrate (Fentanyl 2ml Vial) 100 mcg 1X ONCE IV Last administered on 11/26/19at 12:00; Start 11/26/19 at 12:00; Stop 11/26/19 at 12:01 Lidocaine/ Epinephrine (LIDOCAINE 1%-EPI 1:100,000 Multi-Dose) 20 ml 1X ONCE SQ Last administered on 11/26/19at 12:00; Start 11/26/19 at 12:00; Stop 11/26/19 at 12:03; Status DC Cefazolin Sodium (Ancef) 1 gm 1X ONCE IVP Last administered on 11/26/19at 12:00; Start 11/26/19 at 12:00; Stop 11/26/19 at 12:03; Status DC Bisacodyl (Dulcolax Supp) 10 mg PRN DAILY PRN [place] CONSTIPATION, 1sT CHOICE Last administered on 11/26/19at 13:30; Start 11/26/19 at 13:30 Docusate Sodium (Enemeez) 283 mg PRN DAILY PRN [place] CONSTIPATION, 2nd CHOICE; Start 11/26/19 at 19:00 Diphenhydramine HCl (Benadryl) 12.5 mg 1X ONCE IV Last administered on 11/26/19at 23:13; Start 11/26/19 at 23:00; Stop 11/26/19 at 23:01; Status DC Info (Tpn Per Pharmacy) 1 each PRN DAILY PRN MC SEE COMMENTS; Start 11/27/19 at 09:30; Stop 11/27/19 at 09:55; Status DC Lorazepam (Ativan Inj) 0.5 mg PRN Q4HRS PRN IVP nausea, unrel by other meds; Start 11/27/19 at 13:45; Stop 11/29/19 at 14:26; Status DC Lorazepam (Ativan Inj) 1 mg PRN Q4HRS PRN IVP nausea, unrel by other meds; Start 11/27/19 at 13:45; Stop 11/29/19 at 14:26; Status DC Lorazepam (Ativan Inj) 2 mg PRN Q4HRS PRN IVP nausea, unrel by other meds Last administered on 11/28/19at 11:59; Start 11/27/19 at 13:45; Stop 11/29/19 at 14:26; Status DC Potassium Chloride/Water 100 ml @ 100 mls/hr PRN Q1HR PRN IV SEE COMMENTS; Start 11/28/19 at 11:00 Magnesium Sulfate 50 ml @ 25 mls/hr Q24H IV Last administered on 11/29/19at 11:00; Start 11/28/19 at 11:00; Stop 11/30/19 at 12:59; Status DC Potassium Phos/ Sodium Phos (Phos-Nak) 1 pkt BID PO Last administered on 11/28/19at 21:25; Start 11/28/19 at 11:00; Stop 11/28/19 at 21:01; Status DC Potassium Chloride/Water 100 ml @ 100 mls/hr PRN Q1HR PRN IV SEE COMMENTS; Start 11/28/19 at 11:00 Magnesium Hydroxide (Milk Of Magnesia) 2,400 mg DAILY JT Last administered on 11/30/19at 08:04; Start 11/28/19 at 12:00 Info (Tpn Per Pharmacy) 1 each PRN DAILY PRN MC SEE COMMENTS Last administered on 11/30/19at 11:57; Start 11/28/19 at 14:15 Sodium Chloride 90 meq/Potassium Chloride 50 meq/ Potassium Phosphate 13.6 mmol/Magnesium Sulfate 10 meq/ Calcium Gluconate 10 meq/ Multivitamins 10 ml/Chromium/ Copper/Manganese/ Seleni/Zn 1 ml/ Total Parenteral Nutrition/Amino Acids/Dextrose/ Fat Emulsion Intravenous 1,512 ml @ 63 mls/hr TPN CONT IV Last administered on 11/28/19at 21:40; Start 11/28/19 at 22:00; Stop 11/29/19 at 21:59; Status DC Sodium Chloride 90 meq/Potassium Chloride 50 meq/ Potassium Phosphate 13.6 mmol/Magnesium Sulfate 15 meq/ Calcium Gluconate 10 meq/ Multivitamins 10 ml/Chromium/ Copper/Manganese/ Seleni/Zn 1 ml/ Total Parenteral Nutrition/Amino Acids/Dextrose/ Fat Emulsion Intravenous 1,512 ml @ 63 mls/hr TPN CONT IV Last administered on 11/29/19at 22:41; Start 11/29/19 at 22:00; Stop 11/30/19 at 21:59 Iohexol (Omnipaque 300 Mg/ml) 400 ml 1X ONCE IJ Last administered on 11/30/19at 08:30; Start 11/30/19 at 08:30; Stop 11/30/19 at 08:31; Status DC Info (CONTRAST GIVEN -- Rx MONITORING) 1 each PRN DAILY PRN MC SEE COMMENTS; Start 11/30/19 at 08:30; Stop 12/02/19 at 08:29 Iohexol (Omnipaque 300 Mg/ml) 400 ml 1X ONCE PO Last administered on 11/30/19at 09:45; Start 11/30/19 at 09:45; Stop 11/30/19 at 09:46; Status DC Info (CONTRAST GIVEN -- Rx MONITORING) 1 each PRN DAILY PRN MC SEE COMMENTS; Start 11/30/19 at 09:45; Stop 12/02/19 at 09:44 Sodium Chloride 90 meq/Potassium Chloride 50 meq/ Potassium Phosphate 13.6 mmol/Magnesium Sulfate 15 meq/ Calcium Gluconate 10 meq/ Multivitamins 10 ml/Chromium/ Copper/Manganese/ Seleni/Zn 1 ml/ Total Parenteral Nutrition/Amino Acids/Dextrose/ Fat Emulsion Intravenous 1,512 ml @ 63 mls/hr TPN CONT IV ; Start 11/30/19 at 22:00; Stop 12/01/19 at 21:59 Active Scripts Active Lactated Ringers (Ringers Solution,Lactated) 1,000 Ml Iv.soln 1,000 Ml IV DAILY Keflex (Cephalexin) 500 Mg Capsule 1 Cap PO TID 4 Days Miralax (Polyethylene Glycol 3350) 17 Gm Powd.pack 1 Packet PO DAILY 15 Days dissolve in water Hydrocodone-Apap 7.5-325/15 Soln (Hydrocodone Bit/Acetaminophen) 15 Ml Solution 15 Ml JT PRN Q6HRS PRN Reported Advair Hfa 230-21 Mcg Inhaler (Fluticasone/Salmeterol) 12 Gm Hfa.aer.ad 1 Inh IH BID Buspirone Hcl 10 Mg Tablet 0.5 Tab PO BID Reglan (Metoclopramide Hcl) 10 Mg Tablet 10 Mg PO QIDACHS Zelnorm (Tegaserod Hydrogen Maleate) 6 Mg Tablet 6 Mg GT BID Amitriptyline Hcl 75 Mg Tablet 75 Mg PO QHS Dicyclomine Hcl 20 Mg Tablet 20 Mg GT PRN QID PRN Stool Softener (Docusate Sodium) 50 Mg Capsule 50 Mg PO PRN HS Olopatadine HCl 5 Ml Drops 0.1 % OP PRN DAILY PRN Promethazine Hcl 12.5 Mg Tablet 25 Mg GT Q6H PRN Trazodone Hcl 50 Mg Tablet 50 Mg GT HS Maxalt (Rizatriptan Benzoate) 10 Mg Tablet 5 Mg GT PRN DAILY PRN Valproic Acid (Valproate Sodium) 250 Mg/5 Ml Solution 15 Ml PO BID Coq-10 (Ubidecarenone) 100 Mg Capsule 200 Mg GT DAILY Vitamin D3 (Cholecalciferol (Vitamin D3)) 4,000 Unit Capsule 2,000 Unit PO HS Xyzal (Levocetirizine Dihydrochloride) 5 Mg Tablet 5 Mg GT HS Proair Hfa (Albuterol Sulfate) 8.5 Gm Hfa.aer.ad 2 Puff IH PRN Q4-6HRS PRN 21 Days Ipratropium [place] 30 Ml [place] 1 [place] NS DAILY Duoneb 0.5-3(2.5) Mg/3 Ml (Albuterol/Ipratropium) 3 Ml Ampul.neb 3 Ml NEB PRN QID PRN Protonix (Pantoprazole Sodium) 20 Mg Tablet.dr 40 Mg GT HS Montelukast Sodium Tablet (Montelukast Sodium) 10 Mg Tablet 10 Mg GT DAILY PRN Magnesium Oxide 250 Mg Tablet 1 Tab PO DAILY 30 Days Multi Vitamin Daily (Multivitamin) 1 Each Tablet 1 Each GT DAILY Metoprolol Tartrate 50 Mg Tablet 50 Mg GT BID Vital Signs Vital Signs Date Time Temp Pulse Resp B/P (MAP) Pulse Ox O2 Delivery O2 Flow Rate FiO2 11/30/19 15:27 16 Room Air 11/30/19 11:30 98.0 109 110/70 (83) 98 98.0 Labs Laboratory Tests Test 11/29/19 00:14 11/29/19 03:30 11/29/19 06:06 11/29/19 07:30 Glucose (Fingerstick) 116 mg/dL (70-99) 99 mg/dL (70-99) 112 mg/dL (70-99) Phosphorus Level 3.7 mg/dL (2.6-4.7) Magnesium Level 1.6 mg/dL (1.8-2.4) Test 11/29/19 18:32 11/29/19 23:58 11/30/19 03:34 11/30/19 06:16 Glucose (Fingerstick) 91 mg/dL (70-99) 102 mg/dL (70-99) 103 mg/dL (70-99) White Blood Count 3.9 x10^3/uL (4.0-11.0) Red Blood Count 3.52 x10^6/uL (3.50-5.40) Hemoglobin 11.6 g/dL (12.0-15.5) Hematocrit 32.7 % (36.0-47.0) Mean Corpuscular Volume 93 fL (79-100) Mean Corpuscular Hemoglobin 33 pg (25-35) Mean Corpuscular Hemoglobin Concent 36 g/dL (31-37) Red Cell Distribution Width 13.4 % (11.5-14.5) Platelet Count 147 x10^3/uL (140-400) Neutrophils (%) (Auto) 48 % (31-73) Lymphocytes (%) (Auto) 40 % (24-48) Monocytes (%) (Auto) 9 % (0-9) Eosinophils (%) (Auto) 3 % (0-3) Basophils (%) (Auto) 1 % (0-3) Neutrophils # (Auto) 1.9 x10^3/uL (1.8-7.7) Lymphocytes # (Auto) 1.6 x10^3/uL (1.0-4.8) Monocytes # (Auto) 0.3 x10^3/uL (0.0-1.1) Eosinophils # (Auto) 0.1 x10^3/uL (0.0-0.7) Basophils # (Auto) 0.0 x10^3/uL (0.0-0.2) Sodium Level 142 mmol/L (136-145) Potassium Level 3.9 mmol/L (3.5-5.1) Chloride Level 105 mmol/L (98-107) Carbon Dioxide Level 25 mmol/L (21-32) Anion Gap 12 (6-14) Blood Urea Nitrogen 10 mg/dL (7-20) Creatinine 0.6 mg/dL (0.6-1.0) Estimated GFR (Cockcroft-Gault) 126.2 BUN/Creatinine Ratio 17 (6-20) Glucose Level 101 mg/dL (70-99) Calcium Level 8.3 mg/dL (8.5-10.1) Phosphorus Level 4.0 mg/dL (2.6-4.7) Magnesium Level 2.0 mg/dL (1.8-2.4) Total Bilirubin 0.2 mg/dL (0.2-1.0) Aspartate Amino Transf (AST/SGOT) 12 U/L (15-37) Alanine Aminotransferase (ALT/SGPT) 17 U/L (14-59) Alkaline Phosphatase 80 U/L (46-116) Total Protein 6.0 g/dL (6.4-8.2) Albumin 3.2 g/dL (3.4-5.0) Albumin/Globulin Ratio 1.1 (1.0-1.7) Triglycerides Level 52 mg/dL (0-150) Test 11/30/19 11:33 Glucose (Fingerstick) 93 mg/dL (70-99) Laboratory Tests Test 11/29/19 18:32 11/29/19 23:58 11/30/19 03:34 11/30/19 06:16 Glucose (Fingerstick) 91 mg/dL (70-99) 102 mg/dL (70-99) 103 mg/dL (70-99) White Blood Count 3.9 x10^3/uL (4.0-11.0) Red Blood Count 3.52 x10^6/uL (3.50-5.40) Hemoglobin 11.6 g/dL (12.0-15.5) Hematocrit 32.7 % (36.0-47.0) Mean Corpuscular Volume 93 fL (79-100) Mean Corpuscular Hemoglobin 33 pg (25-35) Mean Corpuscular Hemoglobin Concent 36 g/dL (31-37) Red Cell Distribution Width 13.4 % (11.5-14.5) Platelet Count 147 x10^3/uL (140-400) Neutrophils (%) (Auto) 48 % (31-73) Lymphocytes (%) (Auto) 40 % (24-48) Monocytes (%) (Auto) 9 % (0-9) Eosinophils (%) (Auto) 3 % (0-3) Basophils (%) (Auto) 1 % (0-3) Neutrophils # (Auto) 1.9 x10^3/uL (1.8-7.7) Lymphocytes # (Auto) 1.6 x10^3/uL (1.0-4.8) Monocytes # (Auto) 0.3 x10^3/uL (0.0-1.1) Eosinophils # (Auto) 0.1 x10^3/uL (0.0-0.7) Basophils # (Auto) 0.0 x10^3/uL (0.0-0.2) Sodium Level 142 mmol/L (136-145) Potassium Level 3.9 mmol/L (3.5-5.1) Chloride Level 105 mmol/L (98-107) Carbon Dioxide Level 25 mmol/L (21-32) Anion Gap 12 (6-14) Blood Urea Nitrogen 10 mg/dL (7-20) Creatinine 0.6 mg/dL (0.6-1.0) Estimated GFR (Cockcroft-Gault) 126.2 BUN/Creatinine Ratio 17 (6-20) Glucose Level 101 mg/dL (70-99) Calcium Level 8.3 mg/dL (8.5-10.1) Phosphorus Level 4.0 mg/dL (2.6-4.7) Magnesium Level 2.0 mg/dL (1.8-2.4) Total Bilirubin 0.2 mg/dL (0.2-1.0) Aspartate Amino Transf (AST/SGOT) 12 U/L (15-37) Alanine Aminotransferase (ALT/SGPT) 17 U/L (14-59) Alkaline Phosphatase 80 U/L (46-116) Total Protein 6.0 g/dL (6.4-8.2) Albumin 3.2 g/dL (3.4-5.0) Albumin/Globulin Ratio 1.1 (1.0-1.7) Triglycerides Level 52 mg/dL (0-150) Test 11/30/19 11:33 Glucose (Fingerstick) 93 mg/dL (70-99) Allergies Allergies Coded Allergies Type Severity Reaction Last Updated Verified Penicillins Allergy Intermediate LIGHT RASH CHILD 08/30/19 Yes Sulfa (Sulfonamide Antibiotics) Allergy Intermediate 08/29/19 Yes Disposition/Orders: D/C to Home w/ HH Justicifation of Admission Dx: Justifications for Admission: Justification of Admission Dx: No JEFFERSON XAVIER MD Nov 30, 2019 16:07
[2019-11-30] MEDS ORDERED: SODI20VI3 IV (16:14)
[2019-11-30] MEDS ORDERED: DOCU283E PR (16:14)
[2019-11-30] MEDS ORDERED: BISA10SU4 PR (16:14)
[2019-11-30] MEDS ORDERED: MAGN400O7 JT (16:14)
[2019-11-30] MEDS ORDERED: Pantoprazole Iv Push IVP (16:14)
[2019-11-30] MEDS ORDERED: NYST100054 SWSW (16:14)
[2019-11-30] MEDS ORDERED: METO5VIA4 IVP (16:14)
[2019-11-30] MEDS ORDERED: Tpn Per Pharmacy MC (16:14)
[2019-11-30] MEDS ORDERED: PROC10VI20 IV (16:14)
[2019-11-30] MEDS ORDERED: ONDA4VIA7 IVP (16:14)
--- NOTE | 2019-11-30 16:16 | SNU/HH DC ---
DISCHARGE WITH HOME HEALTH DISCHARGE INFORMATION: Condition on Discharge: Stable CODE STATUS: Code Status: Full HOME HEALTH: Face to Face: I certify this patient is under my care and that I, or a nurse practitioner or physician's preschool teacher assistant working with me, had a face to face encounter that meets the physician face to face encounter requirements with this patient on []. Medical Complications: Other (GASTROPARESIS) RN For Eval/Treatment: Yes Physical Therapy For: Evalulation/Treatment Occupational Therapy For: Evaluation/Treatment Speech Language Pathology For: Evaluation/Treatment Home Health Aide For: Self-care RECORDS SECTION SUPERVISOR For: Community Resources Pt Meets Homebound Status: Fatigue w/ amb. POST DISCHARGE ORDERS: Activity Instructions for Disc: Activity as tolerated, Other, see below DIET AFTER DISCHARGE: clears, diet as pt can tolerate, tube feeding is main nutritional source Wound/Incision Care: Ice to area for comfort, Reinforce dressing PRN CHECKS AFTER DISCHARGE: Checks after discharge: Check blood press - daily, Check your Temp as needed FOLLOW-UP: PCP to follow Home Health: TODAY Follow up with: GI NEXT WEEK TREATMENT/EQUIPMENT ORDERS: Adaptive Equipment Issued: None CERTIFICATION STATEMENT: Certification Statement: Certification Statement: Based on the above finding, I certify that this patient is confined to the home and needs intermittent halfway care, physical therapy and/or speech therapy, or continues to need occupational therapy.~ This patient is under my care, and I have initiated the establishment of the plan of care.~ This patient will be followed by myself or a community physician who will periodically review the plan of care. Home Meds Active Scripts Ringers Solution,Lactated (LACTATED RINGERS) 1,000 Ml Iv.soln, 1000 ML IV DAILY for dehydration, #7 MISC Prov:KRISTEN ESPAÑA MD 09/03/19 Cephalexin (KEFLEX) 500 Mg Capsule, 1 CAP PO TID for infection for 4 Days, #12 CAP 0 Refills Prov:KRISTEN ESPAÑA MD 09/03/19 Polyethylene Glycol 3350 (MIRALAX) 17 Gm Powd.pack, 1 PACKET PO DAILY for constipation for 15 Days, #15 PACKET 0 Refills dissolve in water Prov:KRISTEN ESPAÑA MD 09/03/19 Hydrocodone Bit/Acetaminophen (HYDROCODONE-APAP 7.5-325/15 SOLN ) 15 Ml Solution, 15 ML JT PRN Q6HRS PRN for PAIN, #250 ML 0 Refills Prov:KRISTEN ESPAÑA MD 09/03/19 Reported Medications Fluticasone/Salmeterol (ADVAIR HFA 230-21 MCG INHALER) 12 Gm Hfa.aer.ad, 1 INH IH BID for asthma, INHALER 08/29/19 Buspirone Hcl (BUSPIRONE HCL) 10 Mg Tablet, 0.5 TAB PO BID for mood, #60 TAB 1 Refill 08/29/19 Metoclopramide Hcl (REGLAN) 10 Mg Tablet, 10 MG PO QIDACHS for PROKINETIC, #120 TAB 0 Refills 08/22/19 Tegaserod Hydrogen Maleate (Zelnorm) 6 Mg Tablet, 6 MG GT BID for constipation, TAB 08/20/19 Amitriptyline Hcl (AMITRIPTYLINE HCL) 75 Mg Tablet, 75 MG PO QHS for sleep aid, TAB 08/20/19 Dicyclomine Hcl (DICYCLOMINE HCL) 20 Mg Tablet, 20 MG GT PRN QID PRN for stomach spasms, TAB 08/20/19 Docusate Sodium (STOOL SOFTENER) 50 Mg Capsule, 50 MG PO prn hs for constipation, CAP 08/20/19 Olopatadine HCl (Olopatadine HCl) 5 Ml Drops, 0.1 % OP PRN DAILY PRN for eye relief, DROP 08/20/19 Promethazine Hcl (PROMETHAZINE HCL) 12.5 Mg Tablet, 25 MG GT Q6H PRN for NAUSEA/VOMITING, TAB 08/20/19 Trazodone Hcl (TRAZODONE HCL) 50 Mg Tablet, 50 MG GT HS for aid sleep, TAB 08/20/19 Rizatriptan Benzoate (MAXALT) 10 Mg Tablet, 5 MG GT PRN DAILY PRN for migraine headaches, TAB 08/20/19 Valproate Sodium (VALPROIC ACID) 250 Mg/5 Ml Solution, 15 ML PO BID for treat c yclic vomiting, MISC 08/20/19 Ubidecarenone (COQ-10) 100 Mg Capsule, 200 MG GT DAILY for supplement, CAP 08/20/19 Cholecalciferol (Vitamin D3) (VITAMIN D3) 4,000 Unit Capsule, 2000 UNIT PO HS for supplement, CAP 08/20/19 Levocetirizine Dihydrochloride (XYZAL) 5 Mg Tablet, 5 MG GT HS for allergies, TAB 08/20/19 Albuterol Sulfate (Proair Hfa) 8.5 Gm Hfa.aer.ad, 2 PUFF IH PRN Q4-6HRS PRN for wheezing for 21 Days, #1 INHALER 0 Refills 08/20/19 Ipratropium [place] (IPRATROPIUM BROMIDE) 30 Ml [place], 1 SPRAY NS DAILY for allergies, SPRAY 08/20/19 Ipratropium/Albuterol Sulfate (DUONEB 0.5-3(2.5) MG/3 ML) 3 Ml Ampul.neb, 3 ML NEB PRN QID PRN for asthma, EACH 08/20/19 Pantoprazole Sodium (PROTONIX) 20 Mg Tablet.dr, 40 MG GT HS for reflux, TAB 08/20/19 Montelukast Sodium (MONTELUKAST SODIUM TABLET ) 10 Mg Tablet, 10 MG GT DAILY PRN for asthma, TAB 0 Refills 08/20/19 Magnesium Oxide (MAGNESIUM OXIDE) 250 Mg Tablet, 1 TAB PO DAILY for supplement for 30 Days, #30 TAB 0 Refills 08/20/19 Multivitamin (MULTI VITAMIN DAILY) 1 Each Tablet, 1 EACH GT DAILY for supplement , TAB 08/20/19 Metoprolol Tartrate (METOPROLOL TARTRATE) 50 Mg Tablet, 50 MG GT BID for FOR HYPERTENSION, #60 TAB 0 Refills 08/20/19 JEFFERSON XAVIER MD Nov 30, 2019 16:16
[2019-11-30 19:30] VITALS: BP 93/64
--- NOTE | 2019-11-30 20:07 | PDOC1 ---
History & Psych Evaluation Date of Admission: Date of Admission DATE: 11/30/19 TIME: 19:48 Source: Source: Caregiver, Chart review Identification: Identification She is a 19-year-old female with history of depression anxiety and cyclic vomiting syndrome. Chief Complaint: Chief Complaint Consistent nausea, anxiety, depression. History of Present Illness: HPI: She is a 19-year-old female with history of depression, anxiety and cyclic vomiting, severe gastroparesis, IBS and chronic constipation seen for psychiatric evaluation. Upon interview, she appears cooperative and interactive. Stating, she had a history of on and off nausea, depression, and anxiety. Initially depression, anxiety, and nausea were manageable for her. However, for the last 1 year her depression and anxiety got worse with intractable nausea. She was not able to take anything down. States, depression and anxiety worse because of her medical health including cyclic vomiting and gastroparesis. Additionally, lately her cousin who was very close to her and a good friend committed suicide by hanging herself. States, cousin's suicide was very traumatic for her. While discussing about her cousin and she started crying and broke into tears. Month and half ago she was a started on Zoloft for depression and BuSpar for augmentation and anxiety. She takes trazodone for sleep. Denies history of suicidal or homicidal thoughts. Denies history of passive suicidal ideation or self-harm behavior. Denies history of psychosis, auditory or visual hallucinations. Denies bipolar mood disorder or history of m logan or hypomania. Past Psychiatric History: Denies history of psychiatric hospital admission. Previously diagnosed with depression and anxiety. She is following psychiatrist at [facility]. No history of suicidal ideation or suicide attempt. Past Medical History: Please see medical chart for details Family History: Psychiatric family history is significant for depression and anxiety in mother. Social History: Social History: Born and raised in [facility]. 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 Lives with her mother. Denies legal issues. Denies illicit substance use, tobacco use, or excessive alcohol abuse. Current Medications: Current Medications Current Medications Medications (Trade) Dose Ordered Sig/Kel Start Time Stop Time Status Last Admin Dose Admin Amino Acids/ Glycerin/ Electrolytes 1,000 ml @ 75 mls/hr [id number] 11/22/19 21:00 11/27/19 21:59 DC 11/27/19 08:48 75 MLS/HR Bisacodyl (Dulcolax Supp) 10 mg PRN DAILY PRN 11/26/19 13:30 11/26/19 13:30 10 MG Cefazolin Sodium (Ancef) 1 gm 1X ONCE 11/26/19 12:00 11/26/19 12:03 DC 11/26/19 12:00 1 GM Dicyclomine HCl (Bentyl) 10 mg PRN QID PRN 11/22/19 13:30 Diphenhydramine HCl (Benadryl) 12.5 mg 1X ONCE 11/26/19 23:00 11/26/19 23:01 DC 11/26/19 23:13 12.5 MG Docusate Sodium (Enemeez) 283 mg PRN DAILY PRN 11/26/19 19:00 Famotidine (Pepcid Vial) 20 mg 1X ONCE 11/21/19 21:00 11/21/19 21:01 DC 11/21/19 21:08 20 MG Fentanyl Citrate (Fentanyl 2ml Vial) 100 mcg 1X ONCE 11/26/19 12:00 11/26/19 12:01 11/26/19 12:00 75 MCG Info (CONTRAST GIVEN -- Rx MONITORING) 1 each PRN DAILY PRN 11/30/19 09:45 12/02/19 09:44 Info (Tpn Per Pharmacy) 1 each PRN DAILY PRN 11/28/19 14:15 11/30/19 11:57 1 EACH Iohexol (Omnipaque 300 Mg/ml) 400 ml 1X ONCE 11/30/19 09:45 11/30/19 09:46 DC 11/30/19 09:45 400 ML Lidocaine/ Epinephrine (LIDOCAINE 1%-EPI 1:100,000 Multi-Dose) 20 ml 1X ONCE 11/26/19 12:00 11/26/19 12:03 DC 11/26/19 12:00 15 ML Lorazepam (Ativan Inj) 2 mg PRN Q4HRS PRN 11/27/19 13:45 11/29/19 14:26 DC 11/28/19 11:59 2 MG Magnesium Hydroxide (Milk Of Magnesia) 2,400 mg DAILY 11/28/19 12:00 11/30/19 08:04 2,400 MG Magnesium Sulfate 50 ml @ 25 mls/hr Q24H 11/28/19 11:00 11/30/19 12:59 DC 11/29/19 11:00 25 MLS/HR Methylnaltrexone Gibson (Relistor) 12 mg 1X ONCE 11/22/19 14:00 11/22/19 14:01 DC 11/22/19 14:27 12 MG Metoclopramide HCl (Reglan Vial) 10 mg PRN Q6HRS PRN 11/22/19 15:30 11/28/19 06:39 10 MG Midazolam HCl (Versed) 2 mg 1X ONCE 11/26/19 12:00 11/26/19 12:03 DC 11/26/19 11:38 2 MG Morphine Sulfate (Morphine Sulfate) 2 mg PRN Q2HR PRN 11/22/19 17:00 11/30/19 17:47 2 MG Nystatin (Nystatin Oral Susp) 5 ml [id number] 11/24/19 13:00 11/30/19 16:51 5 ML Ondansetron HCl (Zofran) 4 mg PRN Q6HRS PRN 11/22/19 23:30 11/30/19 17:47 4 MG Pantoprazole Sodium (PROTONIX VIAL for IV PUSH) 40 mg BIDAC 11/22/19 12:00 11/30/19 16:51 40 MG Potassium Chloride/Water 100 ml @ 100 mls/hr PRN Q1HR PRN 11/28/19 11:00 Potassium Phos/ Sodium Phos (Phos-Nak) 1 pkt BID 11/28/19 11:00 11/28/19 21:01 DC 11/28/19 21:25 1 PKT Prochlorperazine Edisylate (Compazine) 10 mg PRN Q6HRS PRN 11/22/19 23:30 11/29/19 18:03 10 MG Sodium Chloride 90 meq/Potassium Chloride 50 meq/ Potassium Phosphate 13.6 mmol/Magnesium Sulfate 10 meq/ Calcium Gluconate 10 meq/ Multivitamins 10 ml/Chromium/ Copper/Manganese/ Seleni/Zn 1 ml/ Total Parenteral Nutrition/Amino Acids/Dextrose/ Fat Emulsion Intravenous 1,512 ml @ 63 mls/hr TPN CONT 11/28/19 22:00 11/29/19 21:59 DC 11/28/19 21:40 63 MLS/HR Sodium Chloride 90 meq/Potassium Chloride 50 meq/ Potassium Phosphate 13.6 mmol/Magnesium Sulfate 15 meq/ Calcium Gluconate 10 meq/ Multivitamins 10 ml/Chromium/ Copper/Manganese/ Seleni/Zn 1 ml/ Total Parenteral Nutrition/Amino Acids/Dextrose/ Fat Emulsion Intravenous 1,512 ml @ 63 mls/hr TPN CONT 11/30/19 22:00 12/01/19 21:59 Allergies: Allergies: Coded Allergies: Penicillins (Verified Allergy, Intermediate, LIGHT RASH CHILD, 08/30/19) Sulfa (Sulfonamide Antibiotics) (Verified Allergy, Intermediate, 08/29/19) Mental Status Examination: Mental Status Examination female appears her stated age, fairly groomed, thin and lean Cooperative and interactive Fully alert and oriented Thought process coherent and goal-directed Denies auditory or visual hallucinations. No abnormal perceptions noted Denies suicidal or homicidal thoughts intent or plan. Mood is okay Affect is dysthymic Insight is good Impulse control is good Judgment is good Attention span and concentration good Recent and remote memory intact ROS: 14 point review of system is otherwise negative except for nausea vomiting, abdominal pain, depression, anxiety. Physical Exam: Refer to Physician's note. PACKAGER HAND: No focal deficit MSK: No EPS, TDK, or abnormal involuntary movements Vitals: Vitals Vital Signs Date Time Temp Pulse Resp B/P (MAP) Pulse Ox O2 Delivery O2 Flow Rate FiO2 11/30/19 18:19 18 Room Air 11/30/19 15:00 98.9 98 97/59 (72) 99 98.9 Labs: Labs Laboratory Tests Test 11/29/19 00:14 11/29/19 03:30 11/29/19 06:06 11/29/19 07:30 Glucose (Fingerstick) 116 mg/dL (70-99) 99 mg/dL (70-99) 112 mg/dL (70-99) Phosphorus Level 3.7 mg/dL (2.6-4.7) Magnesium Level 1.6 mg/dL (1.8-2.4) Test 11/29/19 18:32 11/29/19 23:58 11/30/19 03:34 11/30/19 06:16 Glucose (Fingerstick) 91 mg/dL (70-99) 102 mg/dL (70-99) 103 mg/dL (70-99) White Blood Count 3.9 x10^3/uL (4.0-11.0) Red Blood Count 3.52 x10^6/uL (3.50-5.40) Hemoglobin 11.6 g/dL (12.0-15.5) Hematocrit 32.7 % (36.0-47.0) Mean Corpuscular Volume 93 fL (79-100) Mean Corpuscular Hemoglobin 33 pg (25-35) Mean Corpuscular Hemoglobin Concent 36 g/dL (31-37) Red Cell Distribution Width 13.4 % (11.5-14.5) Platelet Count 147 x10^3/uL (140-400) Neutrophils (%) (Auto) 48 % (31-73) Lymphocytes (%) (Auto) 40 % (24-48) Monocytes (%) (Auto) 9 % (0-9) Eosinophils (%) (Auto) 3 % (0-3) Basophils (%) (Auto) 1 % (0-3) Neutrophils # (Auto) 1.9 x10^3/uL (1.8-7.7) Lymphocytes # (Auto) 1.6 x10^3/uL (1.0-4.8) Monocytes # (Auto) 0.3 x10^3/uL (0.0-1.1) Eosinophils # (Auto) 0.1 x10^3/uL (0.0-0.7) Basophils # (Auto) 0.0 x10^3/uL (0.0-0.2) Sodium Level 142 mmol/L (136-145) Potassium Level 3.9 mmol/L (3.5-5.1) Chloride Level 105 mmol/L (98-107) Carbon Dioxide Level 25 mmol/L (21-32) Anion Gap 12 (6-14) Blood Urea Nitrogen 10 mg/dL (7-20) Creatinine 0.6 mg/dL (0.6-1.0) Estimated GFR (Cockcroft-Gault) 126.2 BUN/Creatinine Ratio 17 (6-20) Glucose Level 101 mg/dL (70-99) Calcium Level 8.3 mg/dL (8.5-10.1) Phosphorus Level 4.0 mg/dL (2.6-4.7) Magnesium Level 2.0 mg/dL (1.8-2.4) Total Bilirubin 0.2 mg/dL (0.2-1.0) Aspartate Amino Transf (AST/SGOT) 12 U/L (15-37) Alanine Aminotransferase (ALT/SGPT) 17 U/L (14-59) Alkaline Phosphatase 80 U/L (46-116) Total Protein 6.0 g/dL (6.4-8.2) Albumin 3.2 g/dL (3.4-5.0) Albumin/Globulin Ratio 1.1 (1.0-1.7) Triglycerides Level 52 mg/dL (0-150) Test 11/30/19 11:33 Glucose (Fingerstick) 93 mg/dL (70-99) Laboratory Tests Test 11/29/19 23:58 11/30/19 03:34 11/30/19 06:16 11/30/19 11:33 Glucose (Fingerstick) 102 mg/dL (70-99) 103 mg/dL (70-99) 93 mg/dL (70-99) White Blood Count 3.9 x10^3/uL (4.0-11.0) Red Blood Count 3.52 x10^6/uL (3.50-5.40) Hemoglobin 11.6 g/dL (12.0-15.5) Hematocrit 32.7 % (36.0-47.0) Mean Corpuscular Volume 93 fL (79-100) Mean Corpuscular Hemoglobin 33 pg (25-35) Mean Corpuscular Hemoglobin Concent 36 g/dL (31-37) Red Cell Distribution Width 13.4 % (11.5-14.5) Platelet Count 147 x10^3/uL (140-400) Neutrophils (%) (Auto) 48 % (31-73) Lymphocytes (%) (Auto) 40 % (24-48) Monocytes (%) (Auto) 9 % (0-9) Eosinophils (%) (Auto) 3 % (0-3) Basophils (%) (Auto) 1 % (0-3) Neutrophils # (Auto) 1.9 x10^3/uL (1.8-7.7) Lymphocytes # (Auto) 1.6 x10^3/uL (1.0-4.8) Monocytes # (Auto) 0.3 x10^3/uL (0.0-1.1) Eosinophils # (Auto) 0.1 x10^3/uL (0.0-0.7) Basophils # (Auto) 0.0 x10^3/uL (0.0-0.2) Sodium Level 142 mmol/L (136-145) Potassium Level 3.9 mmol/L (3.5-5.1) Chloride Level 105 mmol/L (98-107) Carbon Dioxide Level 25 mmol/L (21-32) Anion Gap 12 (6-14) Blood Urea Nitrogen 10 mg/dL (7-20) Creatinine 0.6 mg/dL (0.6-1.0) Estimated GFR (Cockcroft-Gault) 126.2 BUN/Creatinine Ratio 17 (6-20) Glucose Level 101 mg/dL (70-99) Calcium Level 8.3 mg/dL (8.5-10.1) Phosphorus Level 4.0 mg/dL (2.6-4.7) Magnesium Level 2.0 mg/dL (1.8-2.4) Total Bilirubin 0.2 mg/dL (0.2-1.0) Aspartate Amino Transf (AST/SGOT) 12 U/L (15-37) Alanine Aminotransferase (ALT/SGPT) 17 U/L (14-59) Alkaline Phosphatase 80 U/L (46-116) Total Protein 6.0 g/dL (6.4-8.2) Albumin 3.2 g/dL (3.4-5.0) Albumin/Globulin Ratio 1.1 (1.0-1.7) Triglycerides Level 52 mg/dL (0-150) Diagnosis: Diagnosis: 1major depressive disorder, recurrent, moderate 2generalized anxiety disorder with panic attacks 3rule out illness anxiety disorder. Assessment: She is a young female struggling with cyclic vomiting syndrome, IBS, gastroparesis. She also has depression and anxiety for which she is genetically predisposed. Apparently, her gastroparesis, IBS, and cyclic vomiting have psychological component in which needs to be addressed aggressively with medications and psychotherapeutic interventions. He is in agreement to make medication changes that would not only help with depression and anxiety but with her nausea and IBS. Plan: 1start Remeron 15 mg nightly for insomnia, depression, and anxiety. Remeron also helps and nausea. 2trial of Ativan 1 mg twice a day for nausea. Haldol can also be tried now he has not improved. 3risks, benefits, alternatives of the treatment are discussed. She is in agreement with plan and voiced understanding. 4adverse drug reactions including but not limited to weight gain, black box warnings, excessive sedation, appetite stimulation are discussed. 5patient reportedly on Zoloft which can be continued. Discontinue BuSpar and trazodone as they would not be required. JL MUSE MD Nov 30, 2019 20:06
[2019-11-30] MEDS ORDERED: MIRTAZAPINE 15 MG TABLET PO SCH (21:00)
[2019-11-30] MEDS: LORazepam 0.5 MG TABLET PO SCH (21:54)
[2019-11-30] MEDS ORDERED: TOTAL PARENTERAL NUTRITION IV SCH (22:00)
[2019-11-30] MEDS ORDERED: [UNRECOGNIZED DRUG - OTHER] IV SCH (22:00)
[2019-11-30] MEDS ORDERED: AMINO ACID IV SCH (22:00)
[2019-11-30] MEDS ORDERED: DEXTROSE 70% IV SCH (22:00)
[2019-11-30 23:15] VITALS: BP 91/56
[2019-12-01 03:00] VITALS: BP 76/46
[2019-12-01 05:39] LABS: CALCIUM 8.5 mg/dL (8.5-10.1); CREATININE 0.7 mg/dL (0.6-1.0); GFR 105.6; MAGNESIUM 2.1 mg/dL (1.8-2.4); PHOSPHORUS 4.8 mg/dL (2.6-4.7); POTASSIUM 4.1 mmol/L (3.5-5.1)
[2019-12-01 07:00] VITALS: BP_SYST 85; BP_SYST 91; BP_DIAS 48; BP_DIAS 54
[2019-12-01] MEDS: LORazepam 0.5 MG TABLET PO SCH (09:00)
[2019-12-01] MEDS: MAGNESIUM HYDROXIDE 2,400 MG/30 ML ORAL.SUSP. JT SCH (09:00)
[2019-12-01] MEDS: PANTOPRAZOLE IV PUSH 40 MG VIAL. IVP SCH (09:04)
[2019-12-01] MEDS: MORPHINE SULFATE 2 MG/ML VIAL. IV PRN (09:04)
--- NOTE | 2019-12-01 09:15 | NUR ---
pt requesting pain meds and c/o dizziness. morphine given, ativan held. pt advised not to get out of bed w/out assistance.
--- NOTE | 2019-12-01 10:15 | PDOC ---
GENERAL General: Patient examined chart reviewed discussed with nursing. Full discharge summary is pending. Today is day 11 for this patient with severe protein calorie malnutrition secondary to longstanding gastroparesis and cyclic vomiting syndrome. She is under the care of Dr. Santana which is why she is here at [facility] from her hometown of [place] where she sees Dr. Adwoa Holland for primary care. She has had many evaluations and interventions for her inability to tolerate anything orally. Finally she will now be discharged home on TPN for several months and reassess for gastric pacer or other intervention that may help her situation. She is cleared for discharge today the TPN has been ordered and will be managed by [facility] and Dr. Santana. She will need labs in 1 week's time and weekly while on TPN. Problems: (1) Malnutrition VITAL SIGNS Vital Signs/I&O: Vital Signs Date Time Temp Pulse Resp B/P (MAP) Pulse Ox O2 Delivery O2 Flow Rate FiO2 12/01/19 07:00 98.3 98 18 91/48 (62) 96 Room Air 98.3 I & O 11/30/19 11/30/19 12/01/19 15:00 23:00 07:00 Intake Total 701.5 ml 0 ml Output Total 200 ml Balance 701.5 ml -200 ml In general the patient is pleasant alert and oriented x3 no acute distress HEENT exam is unremarkable Chest is clear to auscultation Heart S1-S2 normal regular rate and rhythm no murmurs or gallops are noted Abdomen notable for a draining catheter from her PEG tube site with yellowish- green gastric contents in her bag. Her J-tube is clamped. Abdomen is soft nontender nondistended. Extremity exam is unremarkable for acute abnormality ALLERGIES Allergies: Allergies Coded Allergies Type Severity Reaction Last Updated Verified Penicillins Allergy Intermediate LIGHT RASH CHILD 08/30/19 Yes Sulfa (Sulfonamide Antibiotics) Allergy Intermediate 08/29/19 Yes MEDS Medications: All medications were reviewed in full and may not be reflected on the active medication list in this progress note. Please see the medication administration record for full details. Current Medications Medications (Trade) Dose Ordered Sig/Kel Route PRN Reason Start Time Stop Time Status Last Admin Dose Admin Sodium Chloride 90 meq/Potassium Chloride 50 meq/ Potassium Phosphate 13.6 mmol/Magnesium Sulfate 15 meq/ Calcium Gluconate 10 meq/ Multivitamins 10 ml/Chromium/ Copper/Manganese/ Seleni/Zn 1 ml/ Total Parenteral Nutrition/Amino Acids/Dextrose/ Fat Emulsion Intravenous 1,512 ml @ 63 mls/hr TPN CONT IV 11/30/19 22:00 12/01/19 21:59 11/30/19 22:00 Mirtazapine (Remeron) 15 mg QHS PO 11/30/19 21:00 11/30/19 21:55 Lorazepam (Ativan) 0.5 mg BID PO 11/30/19 21:00 11/30/19 21:54 LAB Lab: Laboratory Tests Test 11/30/19 11:33 11/30/19 20:02 12/01/19 00:34 12/01/19 03:45 Glucose (Fingerstick) 93 mg/dL (70-99) 88 mg/dL (70-99) 112 mg/dL (70-99) H Sodium Level 145 mmol/L (136-145) Potassium Level 4.1 mmol/L (3.5-5.1) Chloride Level 108 mmol/L (98-107) H Carbon Dioxide Level 29 mmol/L (21-32) Anion Gap 8 (6-14) Blood Urea Nitrogen 14 mg/dL (7-20) Creatinine 0.7 mg/dL (0.6-1.0) Estimated GFR (Cockcroft-Gault) 105.6 Glucose Level 92 mg/dL (70-99) Calcium Level 8.5 mg/dL (8.5-10.1) Phosphorus Level 4.8 mg/dL (2.6-4.7) H Magnesium Level 2.1 mg/dL (1.8-2.4) Test 12/01/19 05:56 Glucose (Fingerstick) 81 mg/dL (70-99) Laboratory Tests 12/01/19 03:45 IMAGING Imaging: PATIENT: SUNITHA SCHULTZ ACCOUNT: [id number] : 2000 LOCATION: [address] [place] [address] AGE: 19 SEX: F EXAM STATUS: ADM IN ORD. PHYSICIAN: GEORGES DONNELLY MD REASON: persistent nausea with feeding, FT 1.4,15 flouro images,400cc [id number] PROCEDURE: SMALL BOWEL SERIES EXAM: SMALL BOWEL FOLLOW-THROUGH. HISTORY: Nausea with jejunostomy tube feedings. COMPARISON: None. FINDINGS: A office assistant receptionist image was obtained. 400 mL Omnipaque 300 water-soluble contrast material was administered through the patient's jejunostomy tube over 2 minutes, and followed in its course through the small bowel and colon with fluoroscopy and plain radiographs. 15 fluoroscopic screen captures were obtained. Fluoroscopy time 1.4 minutes. The office assistant receptionist image demonstrates a nonobstructive bowel gas pattern. A gastrostomy and jejunostomy catheter are noted. Cholecystectomy clips are noted. The jejunostomy catheter enters the proximal small bowel in the right upper quadrant. Contrast proceeded through the proximal small bowel promptly. Peristalsis appeared normal. Contrast reached the colon in <15 minutes. No strictures or dilatation are seen. The small bowel fold pattern is unremarkable. The patient complained of nausea during and after injection. There was no vomiting during the procedure. IMPRESSION: 1. Contrast rapidly progressed through the small bowel into the colon in <15 minutes. No leak or other abnormality was identified. Electronically signed by: David Miles MD (11/30/2019 12:06 PM) [id number] ASSESSMENT & PLAN A&P Plan as noted above This note was created using [employer] and may have omissions and/or errors due to the nature of real-time voice salesperson parts. Justicifation of Admission Dx: Justifications for Admission: Justification of Admission Dx: JOHNNIE Carter MD Dec 01, 2019 10:15
--- NOTE | 2019-12-01 11:32 | PDOC ---
SURGICAL PROGRESS NOTE Subjective Pt feels better off tube feeds Vital Signs Vital Signs Date Time Temp Pulse Resp B/P (MAP) Pulse Ox O2 Delivery O2 Flow Rate FiO2 12/01/19 08:00 Room Air 12/01/19 07:00 98.3 98 18 91/48 (62) 96 98.3 I&O Intake and Output 12/01/19 07:00 Intake Total 701.5 ml Output Total 200 ml Balance 501.5 ml Intake Oral 30 ml IV Total 671.5 ml Drainage Total 200 ml # Voids 2 General: Alert, Oriented X3, Cooperative, No acute distress Abdomen: Soft, No tenderness, Other (tube in place) Labs Laboratory Tests Test 11/29/19 18:32 11/29/19 23:58 11/30/19 03:34 11/30/19 06:16 Glucose (Fingerstick) 91 mg/dL (70-99) 102 mg/dL (70-99) 103 mg/dL (70-99) White Blood Count 3.9 x10^3/uL (4.0-11.0) Red Blood Count 3.52 x10^6/uL (3.50-5.40) Hemoglobin 11.6 g/dL (12.0-15.5) Hematocrit 32.7 % (36.0-47.0) Mean Corpuscular Volume 93 fL (79-100) Mean Corpuscular Hemoglobin 33 pg (25-35) Mean Corpuscular Hemoglobin Concent 36 g/dL (31-37) Red Cell Distribution Width 13.4 % (11.5-14.5) Platelet Count 147 x10^3/uL (140-400) Neutrophils (%) (Auto) 48 % (31-73) Lymphocytes (%) (Auto) 40 % (24-48) Monocytes (%) (Auto) 9 % (0-9) Eosinophils (%) (Auto) 3 % (0-3) Basophils (%) (Auto) 1 % (0-3) Neutrophils # (Auto) 1.9 x10^3/uL (1.8-7.7) Lymphocytes # (Auto) 1.6 x10^3/uL (1.0-4.8) Monocytes # (Auto) 0.3 x10^3/uL (0.0-1.1) Eosinophils # (Auto) 0.1 x10^3/uL (0.0-0.7) Basophils # (Auto) 0.0 x10^3/uL (0.0-0.2) Sodium Level 142 mmol/L (136-145) Potassium Level 3.9 mmol/L (3.5-5.1) Chloride Level 105 mmol/L (98-107) Carbon Dioxide Level 25 mmol/L (21-32) Anion Gap 12 (6-14) Blood Urea Nitrogen 10 mg/dL (7-20) Creatinine 0.6 mg/dL (0.6-1.0) Estimated GFR (Cockcroft-Gault) 126.2 BUN/Creatinine Ratio 17 (6-20) Glucose Level 101 mg/dL (70-99) Calcium Level 8.3 mg/dL (8.5-10.1) Phosphorus Level 4.0 mg/dL (2.6-4.7) Magnesium Level 2.0 mg/dL (1.8-2.4) Total Bilirubin 0.2 mg/dL (0.2-1.0) Aspartate Amino Transf (AST/SGOT) 12 U/L (15-37) Alanine Aminotransferase (ALT/SGPT) 17 U/L (14-59) Alkaline Phosphatase 80 U/L (46-116) Total Protein 6.0 g/dL (6.4-8.2) Albumin 3.2 g/dL (3.4-5.0) Albumin/Globulin Ratio 1.1 (1.0-1.7) Triglycerides Level 52 mg/dL (0-150) Test 11/30/19 11:33 11/30/19 20:02 12/01/19 00:34 12/01/19 03:45 Glucose (Fingerstick) 93 mg/dL (70-99) 88 mg/dL (70-99) 112 mg/dL (70-99) Sodium Level 145 mmol/L (136-145) Potassium Level 4.1 mmol/L (3.5-5.1) Chloride Level 108 mmol/L (98-107) Carbon Dioxide Level 29 mmol/L (21-32) Anion Gap 8 (6-14) Blood Urea Nitrogen 14 mg/dL (7-20) Creatinine 0.7 mg/dL (0.6-1.0) Estimated GFR (Cockcroft-Gault) 105.6 Glucose Level 92 mg/dL (70-99) Calcium Level 8.5 mg/dL (8.5-10.1) Phosphorus Level 4.8 mg/dL (2.6-4.7) Magnesium Level 2.1 mg/dL (1.8-2.4) Test 12/01/19 05:56 Glucose (Fingerstick) 81 mg/dL (70-99) Laboratory Tests Test 11/30/19 11:33 11/30/19 20:02 12/01/19 00:34 12/01/19 03:45 Glucose (Fingerstick) 93 mg/dL (70-99) 88 mg/dL (70-99) 112 mg/dL (70-99) Sodium Level 145 mmol/L (136-145) Potassium Level 4.1 mmol/L (3.5-5.1) Chloride Level 108 mmol/L (98-107) Carbon Dioxide Level 29 mmol/L (21-32) Anion Gap 8 (6-14) Blood Urea Nitrogen 14 mg/dL (-20) Creatinine 0.7 mg/dL (0.6-1.0) Estimated GFR (Cockcroft-Gault) 105.6 Glucose Level 92 mg/dL (70-99) Calcium Level 8.5 mg/dL (8.5-10.1) Phosphorus Level 4.8 mg/dL (2.6-4.7) Magnesium Level 2.1 mg/dL (1.8-2.4) Test 12/01/19 05:56 Glucose (Fingerstick) 81 mg/dL (70-99) Problem List bowel dysmotility SBFT without abnormality except rapid plan d/c home on TPN unlikely to benefit from pyloroplasty Justicifation of Admission Dx: Justifications for Admission: Justification of Admission Dx: No TORIE MILLER MD Dec 01, 2019 11:31
--- NOTE | 2019-12-01 13:01 | NUR ---
pt discharged home with grandparents. [facility] to begin infusions this evening. this proposal manager writer spoke w/ Heather @ [facility] to ensure all meds and cares were arranged. pt discharged with [facility] for TPN. meds and follow up reviewed. pt provided with an additional joy bag for G-tube drainage. pt stable upon DC.
== END 2019-12-01 12:00 | disposition home health service (06) | DRG 388 ==
LOC: ER 19:53 → 4 NORTH 23:25 → OBSVTOIN 23:25
PROVIDERS: ADMIT Internal Medicine; ATTEND Internal Medicine
PROC: 0JH63XZ Insertion of Tunneled Vascular Access Device into Chest Subcutaneous Tissue and Fascia, Percutaneous Approach (ICD-10-PCS; principal; 2019-11-26)
PROC: 02H633Z Insertion of Infusion Device into Right Atrium, Percutaneous Approach (ICD-10-PCS; 2019-11-26)
PROC: B5181ZA Fluoroscopy of Superior Vena Cava using Low Osmolar Contrast, Guidance (ICD-10-PCS; 2019-11-26)
PROC: B548ZZA Ultrasonography of Superior Vena Cava, Guidance (ICD-10-PCS; 2019-11-26)
PROC: 3E0436Z Introduction of Nutritional Substance into Central Vein, Percutaneous Approach (ICD-10-PCS; 2019-11-26)
DX: K56.41 Fecal impaction (principal); E43 Unspecified severe protein-calorie malnutrition; Z93.1 Gastrostomy status; K31.84 Gastroparesis; I10 Essential (primary) hypertension; K21.9 Gastro-esophageal reflux disease without esophagitis; G89.29 Other chronic pain; K58.9 Irritable bowel syndrome, unspecified; K76.0 Fatty (change of) liver, not elsewhere classified; G43.909 Migraine, unspecified, not intractable, without status migrainosus; J45.909 Unspecified asthma, uncomplicated; F32.9 Major depressive disorder, single episode, unspecified; F41.0 Panic disorder [episodic paroxysmal anxiety]; Z68.26 Body mass index [BMI] 26.0-26.9, adult; Z95.828 Presence of other vascular implants and grafts; Z93.4 Other artificial openings of gastrointestinal tract status; Z90.49 Acquired absence of other specified parts of digestive tract; Z88.0 Allergy status to penicillin; Z88.2 Allergy status to sulfonamides; Z83.71 Family history of colonic polyps; Z83.3 Family history of diabetes mellitus; Z82.3 Family history of stroke; Z82.49 Family history of ischemic heart disease and other diseases of the circulatory system
CPT/HCPCS: 36415; 36561; 70551; 74021; 74250; 76937; 77001; 80048; 80053; 81001; 81025; 82962; 83690; 83735; 84100; 84478; 85025; 85610; 85730; 87086; 96361; 96374; 96375; 96376; 99152; 99153; 99285; C1751; C1892; C9113; J0610; J0690; J0780; J1200; J2060; J2212; J2250; J2270; J2405; J2765; J3010; J3475; J3480; J3490; J7030; Q9967; G0378

== ENCOUNTER 2019-12-26 14:11 | Inpatient (IN) | payer OTHER ==
[~2019-12-26] VITALS: Ht 170.2 cm; Wt 73.9 kg
[~2019-12-26 14:11] MED LIST changes: +BISA10SU4 PR; +DOCU283E PR; +MAGN400O7 JT; +METO5VIA4 IVP; +NYST100054 SWSW; +ONDA4VIA7 IVP; +PROC10VI20 IV; +Pantoprazole Iv Push IVP; +SODI20VI3 IV; +Tpn Per Pharmacy MC
[2019-12-26] MEDS ORDERED: IV NORMAL SALINE 1000ML BAG 1,000 ML IV SCH (14:44)
[2019-12-26] MEDS ORDERED: ACETAMINOPHEN 500 MG TABLET PO ONE (14:45)
[2019-12-26] MEDS ORDERED: fentaNYL PF VIAL 100 MCG/2 ML VIAL IVP ONE ×2 (14:45→16:45)
[2019-12-26 15:07] LABS: BASO % 0 % (0-3); EOS % 0 % (0-3); HEMATOCRIT 29.9 % (36.0-47.0); HEMOGLOBIN 10.2 g/dL (12.0-15.5); LYMPH # 0.3 x10^3/uL (1.0-4.8); LYMPH % 6 % (24-48); MEAN CORPUSCULAR HEMOGLOBIN 32 pg (25-35); MEAN CORPUSCULAR HGB CONC 34 g/dL (31-37); MEAN CORPUSCULAR VOLUME 95 fL (79-100); MONO # 0.5 x10^3/uL (0.0-1.1); MONO % 8 % (0-9); NEUT # 5.1 x10^3/uL (1.8-7.7); NEUT % 86 % (31-73); PLATELET COUNT 95 x10^3/uL (140-400); RED BLOOD COUNT 3.15 x10^6/uL (3.50-5.40); RED CELL DISTRIBUTION WIDTH 13.4 % (11.5-14.5); WHITE BLOOD COUNT 5.9 x10^3/uL (4.0-11.0)
--- NOTE | 2019-12-26 15:09 | PHYS DOC ---
Past Medical History Past Medical History: GERD, Hypertension, Migraines, Other Additional Past Medical Histor: chronic ABD pain and N/V, GASTROPARESIS Past Surgical History: Cholecystectomy, Tonsillectomy, Other Additional Past Surgical Histo: G-tube x20; J-tube Smoking Status: Never Smoker Alcohol Use: None General Adult EDM: Chief Complaint: FEVER HPI: HPI: Patient is a 19 year old fever who presents with fever of 101 today. She states that her right chest Port-A-Cath has been hurting her for the last 2 days. She states that her home health nurse came and change the needle out today thinking that maybe the needle was causing her the pain. She states that she still having pain and redness and tenderness in the area. She states that she also has had some chronic G-tube pain for the last 2 weeks and she takes Tylenol. She states that she has a appointment with Dr. Mohr to have the Port-A-Cath and the G-tube checked out for next week. Patient has a history of gastroparesis, chronic abdominal pain, hypertension, GERD, cholecystectomy, J- tube, migraine, tonsillectomy. Patient is tachycardic at 110. She states that she was having nausea and vomiting but has not vomited since Tuesday. She rates her pain at a 7 out of 10 at her port and states is aching and nonradiating. At this time she denies nausea, vomiting, abdominal pain, headache, dizziness, cough, syncope, shortness of breath, chest pain, vision changes, numbness or tingling, focal weakness. Review of Systems: Review of Systems: Constitutional: fever or chills. [] Eyes: Denies change in visual acuity. [] HENT: Denies nasal congestion or sore throat. [] Respiratory: Denies cough or shortness of breath. [] Cardiovascular: Right chest port-o-cath tenderness pain or denies edema. [] GI: Denies abdominal pain. + nausea, +vomiting, denies bloody stools or diarrhea. [] : Denies dysuria. [] Musculoskeletal: Denies back pain or joint pain. [] Integument: Denies rash. Redness around pot-o-cath skin [] Neurologic: Denies headache, focal weakness or sensory changes. [] Endocrine: Denies polyuria or polydipsia. [] Lymphatic: Denies swollen glands. [] Psychiatric: Denies depression or anxiety. [] Heart Score: Risk Factors: Risk Factors: DM, Current or recent (<one month) smoker, HTN, HLP, family history of CAD, obesity. Risk Scores: Score 0 - 3: 2.5% MACE over next 6 weeks - Discharge Home Score 4 - 6: 20.3% MACE over next 6 weeks - Admit for Clinical Observation Score 7 - 10: 72.7% MACE over next 6 weeks - Early Invasive Strategies Current Medications: Current Medications Medications (Trade) Dose Ordered Sig/Kel Start Time Stop Time Status Last Admin Dose Admin Acetaminophen (Tylenol) 1,000 mg 1X ONCE 12/26/19 14:45 12/26/19 14:52 DC 12/26/19 14:52 1,000 MG Fentanyl Citrate (Fentanyl 2ml Vial) 50 mcg 1X ONCE 12/26/19 14:45 12/26/19 14:52 DC 12/26/19 14:51 50 MCG Sodium Chloride 1,000 ml @ 1,000 mls/hr Q1H 12/26/19 14:44 12/26/19 15:43 12/26/19 14:52 1,000 MLS/HR Allergies: Allergies: Allergies Coded Allergies Type Severity Reaction Last Updated Verified Penicillins Allergy Intermediate LIGHT RASH CHILD 08/30/19 Yes Sulfa (Sulfonamide Antibiotics) Allergy Intermediate 08/29/19 Yes Physical Exam: PE: Constitutional: Well developed, well nourished, no acute distress, non-toxic appearance. Febrile[] HENT: Normocephalic, atraumatic, bilateral external ears normal, oropharynx moist, no oral exudates, nose normal. [] Eyes: PERRLA, EOMI, conjunctiva normal, no discharge. [] Neck: Normal range of motion, no tenderness, supple, no stridor. [] Cardiovascular:Heart rate Tachy regular rhythm, no murmur [] Lungs & Thorax: Bilateral breath sounds clear to auscultation [] Abdomen: Bowel sounds normal, soft, no tenderness, no masses, no pulsatile masses. [] Skin: Warm, dry, no erythema, no rash. Right chest port-o-cath tenderness and redness. [] Back: No tenderness, no CVA tenderness. [] Extremities: No tenderness, no cyanosis, no clubbing, ROM intact, no edema. [] Neurologic: Alert and oriented X 3, normal motor function, normal sensory function, no focal deficits noted. [] Psychologic: Affect normal, judgement normal, mood normal. [] Current Patient Data: Vital Signs: Vital Signs Date Time Temp Pulse Resp B/P (MAP) Pulse Ox O2 Delivery O2 Flow Rate FiO2 12/26/19 14:51 16 12/26/19 14:26 101.2 126 84/64 (71) 100 Room Air 101.2 EKG: EK and read by Dr Jj as Sinus tachycardia and no STEMI[] Radiology/Procedures: Radiology/Procedures: [] Impression: [facility] [address] [place], [place] [id number] IMAGING REPORT Signed PATIENT: SUNITHA SCHULTZ ACCOUNT: [id number] : 2000 LOCATION: ER AGE: 19 SEX: F EXAM STATUS: REG ER ORD. PHYSICIAN: KARTHIK GUPTA APRN REASON: FEVER, PAIN AT CONNOR CATH 22not ready EKG first 3:20 PROCEDURE: PORTABLE CHEST 1V PORTABLE CHEST 1V 12/26/2019 2:44 PM INDICATION: Fever COMPARISON: None available TECHNIQUE: Portable frontal view of the chest is provided. FINDINGS: The cardiomediastinal silhouette is within normal limits. Lungs are clear. Right chest wall infusion port catheter is identified with the distal tip terminating at the superior vena cava. Left upper extremity PICC has been removed. There are no significant pleural effusions. There is no pulmonary vascular congestion. No pneumothorax. No suspicious osseous abnormality. IMPRESSION: Right chest wall infusion port catheter is identified with the distal tip projecting over the superior vena cava. No acute cardiopulmonary process is identified. Electronically signed by: Uday Strauss MD (12/26/2019 3:46 PM) [id number] DICTATED and SIGNED BY: UDAY STRAUSS MD DATE: 12/26/19 1546 Course & Med Decision Making: Course & Med Decision Making Pertinent Labs and Imaging studies reviewed. (See chart for details) COVID-19 CRITERIA: The patient was evaluated during the global COVID-19 pandemic, and that diagnosis was suspected/considered upon their initial presentation. Their evaluation, treatment and testing was consistent with current guidelines for patients who present with complaints or symptoms that may be related to COVID-19. See HPI. There is tenderness with palpation and some redness around the Port-A-Cath in the right chest. Lungs sound clear to auscultation all lobes. She is febrile and tachycardia. She is given Tylenol and fentanyl in the ED. I have also ordered fluids. Abdomen is soft and nontender. Skin is pink warm and dry. She speaks in full complete sentences. She is alert and oriented. Patient is ambulatory with a steady gait. Because of her fever she is considered a person under investigation for COVID. I have spoken to Dr Santana and he states to admit the patient and start her on Zosyn. Her reaction to PCN is a rash. I have spoken to Dr Jj and he states to go ahead and give the Zosyn. I have added Benadryl to also be givens. Patient is admitted to Dr Laird. [] Pooja Disclaimer: Pooja Disclaimer: This electronic medical record was generated, in whole or in part, using a voice recognition dictation system. COVID-19 Patient Risks: Age 65 or older: No Sign of co-morbidity: Yes Exp to person + for COVID: No Exp to PUI: No Travel from affected area: No Lower respiratory symptoms: No Fever: Yes Other: No PPE Use: Full PPE with N95 mask or PAPR: Yes Departure Departure Impression: Primary Impression: Fever Qualified Codes: R50.9 - Fever, unspecified Additional Impression: Infection due to Port-A-Cath Qualified Codes: T80.219A - Unspecified infection due to central venous catheter, initial encounter Disposition: ADMITTED INPATIENT Admitting Physician: BRICE Condition: STABLE Referrals: RENEA [facility] (PCP) Justicifation of Admission Dx: Justifications for Admission: Justification of Admission Dx: Yes Comments: PORT-A-CATH INFECTION KARTHIK GUPTA PROPERTY CLAIM REP Dec 26, 2019 15:09
[2019-12-26 15:17] LABS: CALCIUM 8.4 mg/dL (8.5-10.1); CREATININE 0.6 mg/dL (0.6-1.0); GFR 126.2; POTASSIUM 3.6 mmol/L (3.5-5.1)
[2019-12-26 15:20] LABS: PROTHROMBIN TIME PATIENT 15.4 SEC (11.7-14.0)
[2019-12-26 15:23] LABS: ALBUMIN 3.6 g/dL (3.4-5.0); ALBUMIN/GLOBULIN RATIO 1.2 (1.0-1.7); TOTAL BILIRUBIN 0.9 mg/dL (0.2-1.0); TOTAL PROTEIN 6.6 g/dL (6.4-8.2)
[2019-12-26] MEDS ORDERED: IV NORMAL SALINE 1000ML BAG 1,000 ML IV ONE (15:30)
--- NOTE | 2019-12-26 15:50 | RAD ---
PORTABLE CHEST 1V 12/26/2019 2:44 PM INDICATION: Fever COMPARISON: None available TECHNIQUE: Portable frontal view of the chest is provided. FINDINGS: The cardiomediastinal silhouette is within normal limits. Lungs are clear. Right chest wall infusion port catheter is identified with the distal tip terminating at the superior vena cava. Left upper extremity PICC has been removed. There are no significant pleural effusions. There is no pulmonary vascular congestion. No pneumothorax. No suspicious osseous abnormality. IMPRESSION: Right chest wall infusion port catheter is identified with the distal tip projecting over the superior vena cava. No acute cardiopulmonary process is identified. Electronically signed by: Leeanne Ruiz MD (12/26/2019 3:46 PM) [id number]
[2019-12-26 15:54] LABS: % BANDS 2 % (0-9); % LYMPHS 6 % (24-48); % MONOS 6 % (0-10); % SEGS 86 % (35-66); PLT ESTIMATE DECREASED (ADEQUATE)
[2019-12-26 15:57] LABS: TOXIC GRANULATION SLIGHT
--- NOTE | 2019-12-26 15:57 | EKG ---
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
[2019-12-26] MEDS ORDERED: diphenhydrAMINE 50 MG/ML VIAL IVP ONE (16:15)
[2019-12-26] MEDS ORDERED: PIPERACILLIN/TAZOBACTAM 3.375 GM in IV NORMAL SALINE 50ML 50 ML IV ONE (16:15)
--- NOTE | 2019-12-26 16:22 | PHYS DOC ---
Past Medical History Past Medical History: GERD, Hypertension, Migraines, Other Additional Past Medical Histor: chronic ABD pain and N/V, GASTROPARESIS Past Surgical History: Cholecystectomy, Tonsillectomy, Other Additional Past Surgical Histo: G-tube x20; J-tube Smoking Status: Never Smoker Alcohol Use: None General Adult EDM: Chief Complaint: FEVER HPI: HPI: See [facility]/PAs note for further details Review of Systems: Review of Systems: See [facility] note for further details Heart Score: Risk Factors: Risk Factors: DM, Current or recent (<one month) smoker, HTN, HLP, family history of CAD, obesity. Risk Scores: Score 0 - 3: 2.5% MACE over next 6 weeks - Discharge Home Score 4 - 6: 20.3% MACE over next 6 weeks - Admit for Clinical Observation Score 7 - 10: 72.7% MACE over next 6 weeks - Early Invasive Strategies Current Medications: Current Medications Medications (Trade) Dose Ordered Sig/Kel Start Time Stop Time Status Last Admin Dose Admin Acetaminophen (Tylenol) 1,000 mg 1X ONCE 12/26/19 14:45 12/26/19 14:52 DC 12/26/19 14:52 1,000 MG Diphenhydramine HCl (Benadryl) 25 mg 1X ONCE 12/26/19 16:15 12/26/19 16:16 DC 12/26/19 16:16 25 MG Fentanyl Citrate (Fentanyl 2ml Vial) 50 mcg 1X ONCE 12/26/19 14:45 12/26/19 14:52 DC 12/26/19 14:51 50 MCG Piperacillin Sod/ Tazobactam Sod 3.375 gm/Sodium Chloride 50 ml @ 100 mls/hr 1X ONCE 12/26/19 16:15 12/26/19 16:44 Sodium Chloride 1,000 ml @ 1,000 mls/hr 1X ONCE 12/26/19 15:30 12/26/19 16:29 12/26/19 16:16 1,000 MLS/HR Vancomycin HCl (Vanco Per Pharmacy) 1 each PRN DAILY PRN 12/26/19 16:15 UNV Vancomycin HCl 1.75 gm/Sodium Chloride 500 ml @ 250 mls/hr 1X ONCE 12/26/19 17:00 12/26/19 18:59 Allergies: Allergies: Allergies Coded Allergies Type Severity Reaction Last Updated Verified Penicillins Allergy Intermediate LIGHT RASH CHILD 08/30/19 Yes Sulfa (Sulfonamide Antibiotics) Allergy Intermediate 08/29/19 Yes Physical Exam: PE: See [facility] note for detailed exam Current Patient Data: Labs: Laboratory Tests Test 12/26/19 14:45 White Blood Count 5.9 x10^3/uL (4.0-11.0) Red Blood Count 3.15 x10^6/uL (3.50-5.40) L Hemoglobin 10.2 g/dL (12.0-15.5) L Hematocrit 29.9 % (36.0-47.0) L Mean Corpuscular Volume 95 fL (79-100) Mean Corpuscular Hemoglobin 32 pg (25-35) Mean Corpuscular Hemoglobin Concent 34 g/dL (31-37) Red Cell Distribution Width 13.4 % (11.5-14.5) Platelet Count 95 x10^3/uL (140-400) L Neutrophils (%) (Auto) 86 % (31-73) H Lymphocytes (%) (Auto) 6 % (24-48) L Monocytes (%) (Auto) 8 % (0-9) Eosinophils (%) (Auto) 0 % (0-3) Basophils (%) (Auto) 0 % (0-3) Neutrophils # (Auto) 5.1 x10^3/uL (1.8-7.7) Lymphocytes # (Auto) 0.3 x10^3/uL (1.0-4.8) L Monocytes # (Auto) 0.5 x10^3/uL (0.0-1.1) Eosinophils # (Auto) 0.0 x10^3/uL (0.0-0.7) Basophils # (Auto) 0.0 x10^3/uL (0.0-0.2) Segmented Neutrophils % 86 % (35-66) H Band Neutrophils % 2 % (0-9) Lymphocytes % 6 % (24-48) L Monocytes % 6 % (0-10) Toxic Granulation Slight Platelet Estimate Decreased (ADEQUATE) Prothrombin Time 15.4 SEC (11.7-14.0) H Prothrombin Time INR 1.3 (0.8-1.1) H Sodium Level 139 mmol/L (136-145) Potassium Level 3.6 mmol/L (3.5-5.1) Chloride Level 106 mmol/L (98-107) Carbon Dioxide Level 23 mmol/L (21-32) Anion Gap 10 (6-14) Blood Urea Nitrogen 14 mg/dL (7-20) Creatinine 0.6 mg/dL (0.6-1.0) Estimated GFR (Cockcroft-Gault) 126.2 BUN/Creatinine Ratio 23 (6-20) H Glucose Level 101 mg/dL (70-99) H Lactic Acid Level 1.1 mmol/L (0.4-2.0) Calcium Level 8.4 mg/dL (8.5-10.1) L Total Bilirubin 0.9 mg/dL (0.2-1.0) Aspartate Amino Transferase (AST) 12 U/L (15-37) L Alanine Aminotransferase (ALT) 31 U/L (14-59) Alkaline Phosphatase 102 U/L (46-116) Total Protein 6.6 g/dL (6.4-8.2) Albumin 3.6 g/dL (3.4-5.0) Albumin/Globulin Ratio 1.2 (1.0-1.7) Laboratory Tests 12/26/19 14:45 Laboratory Tests 12/26/19 14:45 Vital Signs: Vital Signs Date Time Temp Pulse Resp B/P (MAP) Pulse Ox O2 Delivery O2 Flow Rate FiO2 12/26/19 15:53 101.3 101.3 12/26/19 15:30 114 19 114/94 (101) 100 Room Air EKG: EKG: [] Radiology/Procedures: Radiology/Procedures: [] Course & Med Decision Making: Course & Med Decision Making Pertinent Labs and Imaging studies reviewed. (See chart for details) []I have personally interviewed and examined patient. All charts, labs and imaging studies were reviewed. I agreed with the PA/[facility]'s findings, exam and plan of care In brief patient is a 19-year-old female with a history of malnutrition secondary to gastroparesis with right anterior chest wall port who presents with chief complaint of fever. She does note increased redness and tenderness over her port insertion site. She did have the needle of her Port-A-Cath replaced on Tuesday and again today. On examination patient does have elevated temperature. Port insertion site does appear indurated and erythematous. Tender to palpation. Sepsis protocol initiated. Blood cultures drawn on Tuesday from the Port-A-Cath insertion site did return with concern for methicillin-resistant staph aureus. We did discuss the case with the surgeon who placed the Port-A-Cath approximately [address] Santana. He recommended antibiotics and hospitalization. Patient made hemodynamically stable while in the ER. Pooja Disclaimer: Pooja Disclaimer: This electronic medical record was generated, in whole or in part, using a voice recognition dictation system. Departure Departure Impression: Primary Impression: Fever Additional Impression: Infection due to Port-A-Cath Disposition: ADMITTED INPATIENT Condition: STABLE Referrals: RENEA FUNG [facility] (PCP) Justicifation of Admission Dx: Justifications for Admission: Justification of Admission Dx: Yes CLARA JONES DO Dec 26, 2019 16:22
[2019-12-26] MEDS ORDERED: VANCOMYCIN 1.75 GM in IV NORMAL SALINE 500ML BAG 500 ML IV ONE (17:00)
[2019-12-26] MEDS: VANCOMYCIN PER PHARMACY MC PRN (17:36)
--- NOTE | 2019-12-26 17:46 | NUR ---
Pharmacy Vancomycin Dosing Note S:Consulted to monitor and dose vancomycin started 12/26/19. O:SUNITHA SCHULTZ is a 19 year old F with Sepsis Infection of catheter site. . Height: 5 feet, 7 inches Weight: 74.0 kg Plover Body Weight: 61.60 Adjusted Body Weight: 66.56 Dosing Weight: Actual Other Antibiotics: LABS: Last BUN: 14 Last Creatinine: 0.6 Creatinine Clearance: 182 mL/min Last WBC: 5.9 Last Procalcitonin: Tmax (past 24 hours): 101.3 Microbiology: I/O: Drug Levels: Last level: on at Last dose given 12/26/19 at 1659 Vancomycin Dosing: Loading Dose: 1750 mg x1 Dosing Weight: Actual Target Trough: 15-20 A: Based on patient weight and CrCl: P: 1. Vancomycin 1750mg, followed by Vancomycin 1000 mg IV q8h. 2. Follow up Trough level on 12/27/19 at 1630. 3. Pharmacy will continue to monitor, follow and adjust therapy as needed. Tushar Sanchez [facility], 12/26/19 2089
[2019-12-26 18:20] VITALS: BP 107/55
--- NOTE | 2019-12-26 18:59 | PDOC1 ---
History and Physical Date of Service: DOS: DATE: 12/26/19 TIME: 18:56 Chief Complaint: Problems: (1) Abdominal pain (2) Nausea & vomiting (3) Malnutrition (4) Fever (5) Infection due to Port-A-Cath Chief Complain: Fever History of Present Illness: HPI: This is a pleasant 19-year-old female well-known to my service She has severe gastroparesis to the point we have had to place a G-tube and a J- tube She also has a Port-A-Cath that was placed by Dr. Mohr Today her home health nurse was working with the Port-A-Cath hoping that she could help resolve some pain the patient has been having around it. Patient started having a fever of 101 I discussed the case with ER physician Looking at going to start IV antibiotics and consult the patient surgeon Dr. Mohr Patient is being seen on the medical floor where she is shivering cold and seems to have persistent fever Past Medical/Surgical History: PMH/PSH: Past Medical History: GERD, Hypertension, Migraines, Other Additional Past Medical Histor: chronic ABD pain and N/V, GASTROPARESIS Past Surgical History: Cholecystectomy, Tonsillectomy, Other Additional Past Surgical Histo: G-tube x20; J-tube Smoking Status: Never Smoker Allergies: Allergies: Coded Allergies: Penicillins (Verified Allergy, Intermediate, LIGHT RASH CHILD, 08/30/19) Sulfa (Sulfonamide Antibiotics) (Verified Allergy, Intermediate, 08/29/19) Family History: Family History: Hypertension Social History: Social History: She does not drink smoke or take drugs Current Medications: Current Medications Current Medications Sodium Chloride 1,000 ml @ 1,000 mls/hr Q1H IV Last administered on 12/26/19at 14:52; Start 12/26/19 at 14:44; Stop 12/26/19 at 15:43; Status DC Acetaminophen (Tylenol) 1,000 mg 1X ONCE PO Last administered on 12/26/19at 14:52; Start 12/26/19 at 14:45; Stop 12/26/19 at 14:52; Status DC Fentanyl Citrate (Fentanyl 2ml Vial) 50 mcg 1X ONCE IVP Last administered on 12/26/19at 14:51; Start 12/26/19 at 14:45; Stop 12/26/19 at 14:52; Status DC Sodium Chloride 1,000 ml @ 1,000 mls/hr 1X ONCE IV Last administered on 12/26/19at 16:16; Start 12/26/19 at 15:30; Stop 12/26/19 at 16:29; Status DC Piperacillin Sod/ Tazobactam Sod 3.375 gm/Sodium Chloride 50 ml @ 100 mls/hr 1X ONCE IV Last administered on 12/26/19at 16:15; Start 12/26/19 at 16:15; Stop 12/26/19 at 16:44; Status DC Diphenhydramine HCl (Benadryl) 25 mg 1X ONCE IVP Last administered on 12/26/19at 16:16; Start 12/26/19 at 16:15; Stop 12/26/19 at 16:16; Status DC Vancomycin HCl (Vanco Per Pharmacy) 1 each PRN DAILY PRN MC SEE COMMENTS Last administered on 12/26/19at 17:36; Start 12/26/19 at 16:15 Vancomycin HCl 1.75 gm/Sodium Chloride 500 ml @ 250 mls/hr 1X ONCE IV Last administered on 12/26/19at 16:59; Start 12/26/19 at 17:00; Stop 12/26/19 at 18:59 Fentanyl Citrate (Fentanyl 2ml Vial) 50 mcg 1X ONCE IVP Last administered on 12/26/19at 16:59; Start 12/26/19 at 16:45; Stop 12/26/19 at 16:46; Status DC Vancomycin HCl 1 gm/Sodium Chloride 250 ml @ 250 mls/hr Q8H IV ; Start 12/27/19 at 01:00 Vancomycin HCl (Vancomycin Trough Level) 1 each 1X ONCE MC ; Start 12/27/19 at 16:30; Stop 12/27/19 at 16:31 Fentanyl Citrate (Fentanyl 2ml Vial) 50 mcg PRN Q2HR PRN IVP PAIN; Start 12/26/19 at 18:45; Status UNV Ondansetron HCl (Zofran) 4 mg PRN Q6HRS PRN IVP NAUSEA/VOMITING; Start 12/26/19 at 18:45; Status UNV Prochlorperazine Edisylate (Compazine) 10 mg PRN Q8HRS PRN IM NAUSEA/VOMITING; Start 12/26/19 at 18:45; Status UNV Acetaminophen (Tylenol) 650 mg PRN Q6HRS PRN PEG MILD PAIN / TEMP > 100.3'F; Start 12/26/19 at 18:45; Status UNV Active Scripts Active [Tpn Per Pharmacy] 1 EACH Each 1 Each MC PRN DAILY PRN 30 Days Tpn Electrolytes Vial (Sodium/K+/Mag/Ca/Chlor/Acetate) 20 Ml Vial 20 Ml IV DAILY06 30 Days Metoclopramide Hcl 5 Mg/1 Ml Vial 10 Mg IVP PRN Q6HRS PRN 14 Days [Pantoprazole Iv Push] 40 MG Vial 40 Mg IVP BIDAC 30 Days Ondansetron Hcl 4 Mg/2 Ml Vial (Ondansetron Hcl/Pf) 4 Mg/2 Ml Vial 4 Mg IVP PRN Q6HRS PRN 30 Days Prochlorperazine Edisylate 10 Mg/2 Ml Vial 10 Mg IV PRN Q6HRS PRN 14 Days Milk Of Magnesia (Magnesium Hydroxide) 400 Mg/5 Ml Oral.susp 2,400 Mg JT DAILY 30 Days Enemeez (Docusate Sodium) 283 Mg/5 Ml Enema 283 Mg AR PRN DAILY PRN 30 Days Bisacodyl 10 Mg Supp.rect 10 Mg AR PRN DAILY PRN 30 Days Nystatin 100,000 Unit/1 Ml Oral.susp 5 Ml SWSW [id number] 10 Days Hydrocodone-Apap 7.5-325/15 Soln (Hydrocodone Bit/Acetaminophen) 15 Ml Solution 15 Ml JT PRN Q6HRS PRN Reported Advair Hfa 230-21 Mcg Inhaler (Fluticasone/Salmeterol) 12 Gm Hfa.aer.ad 1 Inh IH BID Dicyclomine Hcl 20 Mg Tablet 20 Mg GT PRN QID PRN Olopatadine HCl 5 Ml Drops 0.1 % OP PRN DAILY PRN Promethazine Hcl 12.5 Mg Tablet 25 Mg GT Q6H PRN Trazodone Hcl 50 Mg Tablet 50 Mg GT HS Coq-10 (Ubidecarenone) 100 Mg Capsule 200 Mg GT DAILY Vitamin D3 (Cholecalciferol (Vitamin D3)) 4,000 Unit Capsule 2,000 Unit PO HS Xyzal (Levocetirizine Dihydrochloride) 5 Mg Tablet 5 Mg GT HS Proair Hfa (Albuterol Sulfate) 8.5 Gm Hfa.aer.ad 2 Puff IH PRN Q4-6HRS PRN 21 Days Ipratropium [place] 30 Ml [place] 1 [place] NS DAILY Duoneb 0.5-3(2.5) Mg/3 Ml (Albuterol/Ipratropium) 3 Ml Ampul.neb 3 Ml NEB PRN QID PRN Montelukast Sodium Tablet (Montelukast Sodium) 10 Mg Tablet 10 Mg GT DAILY PRN Multi Vitamin Daily (Multivitamin) 1 Each Tablet 1 Each GT DAILY ROS: Review of Systems Review of System REVIEW OF SYSTEMS: GENERAL: Complains of chills and weakness and fevers SKIN: No bruising, hair changes or rashes. EYES: No blurred, double or loss of vision. NOSE AND THROAT: No history of nosebleeds, hoarseness or sore throat. HEART: No history of palpitations, chest pain or shortness of breath on exertion. LUNGS: Denies cough, hemoptysis, wheezing or shortness of breath. GASTROINTESTINAL: Denies changes in appetite, nausea, vomiting, diarrhea or constipation. GENITOURINARY: No history of frequency, urgency, hesitancy or nocturia. NEUROLOGIC: Denies history of numbness, tingling, or tremor. PSYCHIATRIC: No history of panic, anxiety or depression. ENDOCRINE: No history of heat or cold intolerance, polyuria or polydipsia. EXTREMITIES: Denies joint pain, pain on walking or stiffness. Physical Exam: Vital Signs: Vital Signs Date Time Temp Pulse Resp B/P (MAP) Pulse Ox O2 Delivery O2 Flow Rate FiO2 12/26/19 18:00 102 17 102/57 (72) 100 Room Air 12/26/19 15:53 101.3 101.3 Physcial Exam: GEN: Is shivering although she has a couple blankets on appears weak HEENT: Normal cephalic, atraumatic, external auditory canals are patent EYES: Extraocular muscles are intact, pupil are equally round and reactive to light and accommodation MUSCULOSKELETAL: Well developed , well nourished, good range of motion ENDOCRINE: No thyromegaly was palpated LYMPHATICS: No cervical chain or axillary nodes were noted HEMATOPOIETIC: No bruising NECK: Supple, no JVD, no thyromegaly was noted LUNGS: Clear to auscultation in all lung crain without rhonchi or wheezing HEART: Tachycardic at 102 bpm ABDOMEN: Slightly tender she has a GJ tube EXTREMITIES: Without clubbing, cyanosis, or edema. Pedal pulses intact. Negative Homans sign NEUROLOGIC: Normal speech and tone. A&O x 3, moves all extremities, no obvious focal deficits PSYCHIATRIC: Seems a little depressed SKIN: No ulcerations or rashes, good skin turgor, no jaundice VASCULAR: Good capillary refill, neurovascular bundle appears to be intact Labs: Labs: Laboratory Tests Test 12/26/19 14:45 White Blood Count 5.9 x10^3/uL (4.0-11.0) Red Blood Count 3.15 x10^6/uL (3.50-5.40) Hemoglobin 10.2 g/dL (12.0-15.5) Hematocrit 29.9 % (36.0-47.0) Mean Corpuscular Volume 95 fL (79-100) Mean Corpuscular Hemoglobin 32 pg (25-35) Mean Corpuscular Hemoglobin Concent 34 g/dL (31-37) Red Cell Distribution Width 13.4 % (11.5-14.5) Platelet Count 95 x10^3/uL (140-400) Neutrophils (%) (Auto) 86 % (31-73) Lymphocytes (%) (Auto) 6 % (24-48) Monocytes (%) (Auto) 8 % (0-9) Eosinophils (%) (Auto) 0 % (0-3) Basophils (%) (Auto) 0 % (0-3) Neutrophils # (Auto) 5.1 x10^3/uL (1.8-7.7) Lymphocytes # (Auto) 0.3 x10^3/uL (1.0-4.8) Monocytes # (Auto) 0.5 x10^3/uL (0.0-1.1) Eosinophils # (Auto) 0.0 x10^3/uL (0.0-0.7) Basophils # (Auto) 0.0 x10^3/uL (0.0-0.2) Segmented Neutrophils % 86 % (35-66) Band Neutrophils % 2 % (0-9) Lymphocytes % 6 % (24-48) Monocytes % 6 % (0-10) Toxic Granulation Slight Platelet Estimate Decreased (ADEQUATE) Prothrombin Time 15.4 SEC (11.7-14.0) Prothromb Time International Ratio 1.3 (0.8-1.1) Sodium Level 139 mmol/L (136-145) Potassium Level 3.6 mmol/L (3.5-5.1) Chloride Level 106 mmol/L (98-107) Carbon Dioxide Level 23 mmol/L (21-32) Anion Gap 10 (6-14) Blood Urea Nitrogen 14 mg/dL (7-20) Creatinine 0.6 mg/dL (0.6-1.0) Estimated GFR (Cockcroft-Gault) 126.2 BUN/Creatinine Ratio 23 (6-20) Glucose Level 101 mg/dL (70-99) Lactic Acid Level 1.1 mmol/L (0.4-2.0) Calcium Level 8.4 mg/dL (8.5-10.1) Total Bilirubin 0.9 mg/dL (0.2-1.0) Aspartate Amino Transf (AST/SGOT) 12 U/L (15-37) Alanine Aminotransferase (ALT/SGPT) 31 U/L (14-59) Alkaline Phosphatase 102 U/L (46-116) Total Protein 6.6 g/dL (6.4-8.2) Albumin 3.6 g/dL (3.4-5.0) Albumin/Globulin Ratio 1.2 (1.0-1.7) Laboratory Tests Test 12/26/19 14:45 White Blood Count 5.9 x10^3/uL (4.0-11.0) Red Blood Count 3.15 x10^6/uL (3.50-5.40) Hemoglobin 10.2 g/dL (12.0-15.5) Hematocrit 29.9 % (36.0-47.0) Mean Corpuscular Volume 95 fL (79-100) Mean Corpuscular Hemoglobin 32 pg (25-35) Mean Corpuscular Hemoglobin Concent 34 g/dL (31-37) Red Cell Distribution Width 13.4 % (11.5-14.5) Platelet Count 95 x10^3/uL (140-400) Neutrophils (%) (Auto) 86 % (31-73) Lymphocytes (%) (Auto) 6 % (24-48) Monocytes (%) (Auto) 8 % (0-9) Eosinophils (%) (Auto) 0 % (0-3) Basophils (%) (Auto) 0 % (0-3) Neutrophils # (Auto) 5.1 x10^3/uL (1.8-7.7) Lymphocytes # (Auto) 0.3 x10^3/uL (1.0-4.8) Monocytes # (Auto) 0.5 x10^3/uL (0.0-1.1) Eosinophils # (Auto) 0.0 x10^3/uL (0.0-0.7) Basophils # (Auto) 0.0 x10^3/uL (0.0-0.2) Segmented Neutrophils % 86 % (35-66) Band Neutrophils % 2 % (0-9) Lymphocytes % 6 % (24-48) Monocytes % 6 % (0-10) Toxic Granulation Slight Platelet Estimate Decreased (ADEQUATE) Prothrombin Time 15.4 SEC (11.7-14.0) Prothromb Time International Ratio 1.3 (0.8-1.1) Sodium Level 139 mmol/L (136-145) Potassium Level 3.6 mmol/L (3.5-5.1) Chloride Level 106 mmol/L (98-107) Carbon Dioxide Level 23 mmol/L (21-32) Anion Gap 10 (6-14) Blood Urea Nitrogen 14 mg/dL (7-20) Creatinine 0.6 mg/dL (0.6-1.0) Estimated GFR (Cockcroft-Gault) 126.2 BUN/Creatinine Ratio 23 (6-20) Glucose Level 101 mg/dL (70-99) Lactic Acid Level 1.1 mmol/L (0.4-2.0) Calcium Level 8.4 mg/dL (8.5-10.1) Total Bilirubin 0.9 mg/dL (0.2-1.0) Aspartate Amino Transf (AST/SGOT) 12 U/L (15-37) Alanine Aminotransferase (ALT/SGPT) 31 U/L (14-59) Alkaline Phosphatase 102 U/L (46-116) Total Protein 6.6 g/dL (6.4-8.2) Albumin 3.6 g/dL (3.4-5.0) Albumin/Globulin Ratio 1.2 (1.0-1.7) Assessment/Plan Assessment/Plan Fevers I suspect she may have a line sepsis Plan IV antibiotics Consult Dr. Santana Consult infectious disease IV fluids PRN Tylenol PRN fentanyl We will try to resume her home meds if possible through her GJ tube Trend labs DVT prophylaxis Full code Wound care Long-term prognosis guarded Justicifation of Admission Dx: Justifications for Admission: Justification of Admission Dx: Yes Sepsis: Bacteremia LALITHA WEBB III DO Dec 26, 2019 18:59
[2019-12-26] MEDS: fentaNYL PF VIAL 100 MCG/2 ML VIAL IVP PRN ×2 (19:00→21:00)
[2019-12-26] MEDS: ONDANSETRON PF 4 MG/2 ML VIAL. IVP PRN (19:00)
[2019-12-26] MEDS: ACETAMINOPHEN 650 MG/20.3 ML SOLUTION. PEG PRN ×2 (19:00→21:00)
[2019-12-26 20:52] VITALS: BP 97/51
[2019-12-26] MEDS: PROCHLORPERAZINE 10 MG/2 ML VIAL. IM PRN (20:59)
[2019-12-26 23:00] VITALS: BP 92/38
[2019-12-27] MEDS: VANCOMYCIN 1 GM in IV NORMAL SALINE 250ML 250 ML IV SCH ×3 (01:00→18:09)
[2019-12-27] MEDS: ONDANSETRON PF 4 MG/2 ML VIAL. IVP PRN ×3 (01:54→18:14)
[2019-12-27] MEDS: fentaNYL PF VIAL 100 MCG/2 ML VIAL IVP PRN ×7 (01:54→22:20)
[2019-12-27 02:41] VITALS: BP 93/45
[2019-12-27] MEDS: ACETAMINOPHEN 650 MG/20.3 ML SOLUTION. PEG PRN ×2 (03:11→11:50)
[2019-12-27] MEDS ORDERED: METO50TA6 PO (05:25)
[2019-12-27] MEDS: PROCHLORPERAZINE 10 MG/2 ML VIAL. IM PRN ×2 (06:04→18:11)
[2019-12-27 07:15] VITALS: BP 100/59
--- NOTE | 2019-12-27 10:20 | PDOC ---
Infectious Disease Note Vital Sign Vital Signs Vital Signs Date Time Temp Pulse Resp B/P (MAP) Pulse Ox O2 Delivery O2 Flow Rate FiO2 12/27/19 09:32 17 Room Air 12/27/19 07:15 97.5 104 100/59 (73) 99 97.5 Labs Lab Laboratory Tests Test 12/26/19 14:45 White Blood Count 5.9 x10^3/uL (4.0-11.0) Red Blood Count 3.15 x10^6/uL (3.50-5.40) Hemoglobin 10.2 g/dL (12.0-15.5) Hematocrit 29.9 % (36.0-47.0) Mean Corpuscular Volume 95 fL (79-100) Mean Corpuscular Hemoglobin 32 pg (25-35) Mean Corpuscular Hemoglobin Concent 34 g/dL (31-37) Red Cell Distribution Width 13.4 % (11.5-14.5) Platelet Count 95 x10^3/uL (140-400) Neutrophils (%) (Auto) 86 % (31-73) Lymphocytes (%) (Auto) 6 % (24-48) Monocytes (%) (Auto) 8 % (0-9) Eosinophils (%) (Auto) 0 % (0-3) Basophils (%) (Auto) 0 % (0-3) Neutrophils # (Auto) 5.1 x10^3/uL (1.8-7.7) Lymphocytes # (Auto) 0.3 x10^3/uL (1.0-4.8) Monocytes # (Auto) 0.5 x10^3/uL (0.0-1.1) Eosinophils # (Auto) 0.0 x10^3/uL (0.0-0.7) Basophils # (Auto) 0.0 x10^3/uL (0.0-0.2) Segmented Neutrophils % 86 % (35-66) Band Neutrophils % 2 % (0-9) Lymphocytes % 6 % (24-48) Monocytes % 6 % (0-10) Toxic Granulation Slight Platelet Estimate Decreased (ADEQUATE) Prothrombin Time 15.4 SEC (11.7-14.0) Prothromb Time International Ratio 1.3 (0.8-1.1) Sodium Level 139 mmol/L (136-145) Potassium Level 3.6 mmol/L (3.5-5.1) Chloride Level 106 mmol/L (98-107) Carbon Dioxide Level 23 mmol/L (21-32) Anion Gap 10 (6-14) Blood Urea Nitrogen 14 mg/dL (7-20) Creatinine 0.6 mg/dL (0.6-1.0) Estimated GFR (Cockcroft-Gault) 126.2 BUN/Creatinine Ratio 23 (6-20) Glucose Level 101 mg/dL (70-99) Lactic Acid Level 1.1 mmol/L (0.4-2.0) Calcium Level 8.4 mg/dL (8.5-10.1) Total Bilirubin 0.9 mg/dL (0.2-1.0) Aspartate Amino Transf (AST/SGOT) 12 U/L (15-37) Alanine Aminotransferase (ALT/SGPT) 31 U/L (14-59) Alkaline Phosphatase 102 U/L (46-116) Total Protein 6.6 g/dL (6.4-8.2) Albumin 3.6 g/dL (3.4-5.0) Albumin/Globulin Ratio 1.2 (1.0-1.7) Micro Microbiology 12/26/19 Blood Culture - Final, Complete Objective Assessment pt seen, consult dictated Plan Plan of Care / ISAAC RODRIGUEZ MD Dec 27, 2019 10:20
[2019-12-27 11:00] LABS: BILIRUBIN,URINE NEGATIVE (NEG); CLARITY,URINE CLEAR; COLOR,URINE AMBER; NITRITE,URINE NEGATIVE (NEG); PROTEIN,URINE NEGATIVE (NEG-TRACE)
--- NOTE | 2019-12-27 11:24 | PDOC ---
[employer] PROGRESS NOTE Date of Service DOS: DATE: 12/27/19 TIME: 11:18 Chief Complaint Chief Complaint Sepsis 3/4 blood culture bottles positive for gram + cocci in clusters Bicytopenia Hypotension Severe idiopathic gastroparesis History of Present Illness History of Present Illness 12/27/2019 Patient seen and examined Appears acutely ill Laying in bed in moderate distress Complains of fevers, chills, pain at site of port-a-cath Chart reviewed Discussed with RN Vitals/I&O Vitals/I&O: Vital Signs Date Time Temp Pulse Resp B/P (MAP) Pulse Ox O2 Delivery O2 Flow Rate FiO2 12/27/19 10:02 18 Room Air 12/27/19 07:15 97.5 104 100/59 (73) 99 97.5 Physical Exam Physical Exam: GEN: Is shivering although she has a couple blankets on appears weak HEENT: Normal cephalic, atraumatic, external auditory canals are patent EYES: Extraocular muscles are intact, pupil are equally round and reactive to light and accommodation MUSCULOSKELETAL: Well developed , well nourished, good range of motion ENDOCRINE: No thyromegaly was palpated LYMPHATICS: No cervical chain or axillary nodes were noted HEMATOPOIETIC: No bruising NECK: Supple, no JVD, no thyromegaly was noted LUNGS: Clear to auscultation in all lung crain without rhonchi or wheezing HEART: Tachycardic at 102 bpm ABDOMEN: Slightly tender she has a GJ tube EXTREMITIES: Without clubbing, cyanosis, or edema. Pedal pulses intact. Negative Homans sign NEUROLOGIC: Normal speech and tone. A&O x 3, moves all extremities, no obvious focal deficits PSYCHIATRIC: Seems a little depressed SKIN: No ulcerations or rashes, good skin turgor, no jaundice VASCULAR: Good capillary refill, neurovascular bundle appears to be intact General: Alert, Cooperative, moderate distress Heart: Regular rate, Normal S1, Normal S2 Lungs: Clear Abdomen: Soft, Other (Mild tenderness at JG tube) Extremities: No clubbing Skin: Other (Erythema and pain at site of port-a-cath) Labs Labs: Laboratory Tests Test 12/26/19 14:45 12/27/19 10:35 White Blood Count 5.9 x10^3/uL (4.0-11.0) Red Blood Count 3.15 x10^6/uL (3.50-5.40) Hemoglobin 10.2 g/dL (12.0-15.5) Hematocrit 29.9 % (36.0-47.0) Mean Corpuscular Volume 95 fL (79-100) Mean Corpuscular Hemoglobin 32 pg (25-35) Mean Corpuscular Hemoglobin Concent 34 g/dL (31-37) Red Cell Distribution Width 13.4 % (11.5-14.5) Platelet Count 95 x10^3/uL (140-400) Neutrophils (%) (Auto) 86 % (31-73) Lymphocytes (%) (Auto) 6 % (24-48) Monocytes (%) (Auto) 8 % (0-9) Eosinophils (%) (Auto) 0 % (0-3) Basophils (%) (Auto) 0 % (0-3) Neutrophils # (Auto) 5.1 x10^3/uL (1.8-7.7) Lymphocytes # (Auto) 0.3 x10^3/uL (1.0-4.8) Monocytes # (Auto) 0.5 x10^3/uL (0.0-1.1) Eosinophils # (Auto) 0.0 x10^3/uL (0.0-0.7) Basophils # (Auto) 0.0 x10^3/uL (0.0-0.2) Segmented Neutrophils % 86 % (35-66) Band Neutrophils % 2 % (0-9) Lymphocytes % 6 % (24-48) Monocytes % 6 % (0-10) Toxic Granulation Slight Platelet Estimate Decreased (ADEQUATE) Prothrombin Time 15.4 SEC (11.7-14.0) Prothromb Time International Ratio 1.3 (0.8-1.1) Sodium Level 139 mmol/L (136-145) Potassium Level 3.6 mmol/L (3.5-5.1) Chloride Level 106 mmol/L (98-107) Carbon Dioxide Level 23 mmol/L (21-32) Anion Gap 10 (6-14) Blood Urea Nitrogen 14 mg/dL (7-20) Creatinine 0.6 mg/dL (0.6-1.0) Estimated GFR (Cockcroft-Gault) 126.2 BUN/Creatinine Ratio 23 (6-20) Glucose Level 101 mg/dL (70-99) Lactic Acid Level 1.1 mmol/L (0.4-2.0) Calcium Level 8.4 mg/dL (8.5-10.1) Total Bilirubin 0.9 mg/dL (0.2-1.0) Aspartate Amino Transf (AST/SGOT) 12 U/L (15-37) Alanine Aminotransferase (ALT/SGPT) 31 U/L (14-59) Alkaline Phosphatase 102 U/L (46-116) Total Protein 6.6 g/dL (6.4-8.2) Albumin 3.6 g/dL (3.4-5.0) Albumin/Globulin Ratio 1.2 (1.0-1.7) SARS-CoV-2 Antigen (Rapid) Negative (NEGATIVE) Review of Systems Review of Systems: Pertinent as per HPI, otherwise 10 point review of systems is negative. Assessment and Plan Assessmemt and Plan Problems Medical Problems: (1) Fever Status: Acute (2) Infection due to Port-A-Cath Status: Acute ASSESSMENT Sepsis 3/4 blood culture bottles positive for gram + cocci in clusters Bicytopenia Hypotension Severe idiopathic gastroparesis PLAN IV antibiotics PPN PRN Tylenol PRN Fentanyl Consult ID, Surgery, and Heme/Onc Home medications through GJ Tube Trend labs DVT prophylaxis Full code Wound care Prognosis guarded Comment Review of Relevant I have reviewed the following items lalo (where applicable) has been applied. Medications: Current Medications Medications (Trade) Dose Ordered Sig/Kel Route PRN Reason Start Time Stop Time Status Last Admin Dose Admin Sodium Chloride 1,000 ml @ 1,000 mls/hr Q1H IV 12/26/19 14:44 12/26/19 15:43 DC 12/26/19 14:52 Acetaminophen (Tylenol) 1,000 mg 1X ONCE PO 12/26/19 14:45 12/26/19 14:52 DC 12/26/19 14:52 Fentanyl Citrate (Fentanyl 2ml Vial) 50 mcg 1X ONCE IVP 12/26/19 14:45 12/26/19 14:52 DC 12/26/19 14:51 Sodium Chloride 1,000 ml @ 1,000 mls/hr 1X ONCE IV 12/26/19 15:30 12/26/19 16:29 DC 12/26/19 16:16 Piperacillin Sod/ Tazobactam Sod 3.375 gm/Sodium Chloride 50 ml @ 100 mls/hr 1X ONCE IV 12/26/19 16:15 12/27/19 10:20 DC 12/26/19 16:15 Diphenhydramine HCl (Benadryl) 25 mg 1X ONCE IVP 12/26/19 16:15 12/26/19 16:16 DC 12/26/19 16:16 Vancomycin HCl (Vanco Per Pharmacy) 1 each PRN DAILY PRN MC SEE COMMENTS 12/26/19 16:15 12/26/19 17:36 Vancomycin HCl 1.75 gm/Sodium Chloride 500 ml @ 250 mls/hr 1X ONCE IV 12/26/19 17:00 12/26/19 18:59 DC 12/26/19 16:59 Fentanyl Citrate (Fentanyl 2ml Vial) 50 mcg 1X ONCE IVP 12/26/19 16:45 12/26/19 16:46 DC 12/26/19 16:59 Vancomycin HCl 1 gm/Sodium Chloride 250 ml @ 250 mls/hr Q8H IV 12/27/19 01:00 12/27/19 09:34 Fentanyl Citrate (Fentanyl 2ml Vial) 50 mcg PRN Q2HR PRN IVP PAIN 12/26/19 18:45 12/27/19 09:32 Ondansetron HCl (Zofran) 4 mg PRN Q6HRS PRN IVP NAUSEA/VOMITING 12/26/19 18:45 12/27/19 09:32 Prochlorperazine Edisylate (Compazine) 10 mg PRN Q8HRS PRN IM NAUSEA/VOMITING 12/26/19 18:45 12/27/19 06:04 Acetaminophen (Tylenol) 650 mg PRN Q6HRS PRN PEG MILD PAIN / TEMP > 100.3'F 12/26/19 18:45 12/27/19 03:11 Justicifation of Admission Dx: Justifications for Admission: Justification of Admission Dx: Yes Sepsis: Bacteremia LALITHA WEBB III DO Dec 27, 2019 11:24
[2019-12-27 11:26] LABS: BACTERIA,URINE 0 /HPF (0-FEW); RBC,URINE 0 /HPF (0-2); SQUAMOUS EPITHELIAL CELL,UR FEW /LPF
[2019-12-27 11:28] VITALS: BP 109/62
--- NOTE | 2019-12-27 11:39 | CONS ---
DATE OF CONSULTATION: 12/27/2019 REQUESTING PHYSICIAN: Coni Bynum DO REASON FOR CONSULTATION: Fever and possible port infection. HISTORY OF PRESENT ILLNESS: This is a 19-year-old female with a history of gastroparesis, who has a GJ tube as well as Port-A-Cath and TPN at home. The patient had Port-A-Cath placed a month ago. Now, she comes in with pain at the Port-A-Cath site for 1 day and then started fever. The patient has nausea and vomiting, which is her usual; denies any abdominal pain; denies any diarrhea; denies any headache, visual symptoms or chest pain other than her port site pain. PAST MEDICAL HISTORY: Positive for severe gastroparesis; the patient has a GJ tube in place, Port-A-Cath in place with TPN at home; has had cholecystectomy and tonsillectomy; also has migraine headaches; gastroesophageal reflux disease. SOCIAL HISTORY: Negative for smoking, alcohol or illicit drug use. ALLERGIES: LISTED ALLERGIC TO PENICILLIN, SHE DOES NOT KNOW, WAS A CHILD, WAS A RASH DOCUMENTED IN THE CHART; SULFA, ALSO SHE DOES NOT REMEMBER WHAT HAPPENED. CURRENT MEDICATIONS: Reviewed. The patient is on vancomycin and the patient received a dose of Zosyn. REVIEW OF SYSTEMS: As per HPI, all other systems are reviewed and are negative. PHYSICAL EXAMINATION: GENERAL: Alert, oriented female, not in distress. VITAL SIGNS: Stable with a T-max of 102.9. HEENT: NAD. NECK: Supple. No JVP, no lymphadenopathy. LUNGS: Clear. HEART: S1, S2 regular. ABDOMEN: Benign. EXTREMITIES: No edema or cyanosis. SKIN: Unremarkable, except at the Port-A-Cath site, there is some faint redness present and tenderness present; there is no purulence; there is no obvious significant redness. NEUROLOGICAL: The patient is alert, awake and appropriate. No focal neurologic deficit. LABORATORY DATA: White count is normal. BUN and creatinine are normal. Lactic acid was 1.1. Blood culture 3 out of 4 bottles positive with gram-positive cocci in clusters, identification is pending. IMPRESSION: 1. Fever. 2. Blood culture positive with Staphylococcus, 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 3. Some redness and tenderness at the Port-A-Cath; unfortunately, was done only one month ago. 4. Gastroparesis, on total parenteral nutrition at home. RECOMMENDATIONS: Continue vancomycin. We will use also cefazolin until the susceptibilities are known and then scale down. If it comes out to be coag-negative staph, we might be able to save the Port-A-Cath and treat through. Definitely, if it is a Staph aureus, needs to go, especially this port is only one month old. So, right now, we will continue to treat through and wait for further identification and susceptibilities. Thank you very much, Dr. Bynum, for giving me the opportunity to participate in this patient's care. ISAAC RODRIGUEZ MD DR: YAZ/kimberly JOB#: [id number] / [id number]
[2019-12-27] MEDS: AMINO AC 3%/ELECTROLYTE/GLYCER 1,000 ML IV SCH (11:52)
--- NOTE | 2019-12-27 14:34 | NUR ---
SS following for discharge planning. SS reviewed pt chart and discussed with pt RN. Pt is from home and is currently on room air. Pt had home TPN with [facility], ; fax [phone], and home healthcare with [facility], ; fax [phone]. Pt on IV Cefazolin and IV Vancomycin. SS will continue to follow for discharge planning.
[2019-12-27 15:00] VITALS: BP 88/49
--- NOTE | 2019-12-27 15:07 | NUR ---
Pt will be transferred to room 422. Rapid COVID neg. Report called to Chad ZHANG.
--- NOTE | 2019-12-27 15:34 | PDOC2 ---
CONSULT Date of Consult Date of Consult DATE: 12/27/19 TIME: 15:25 Reason for Consult Reason for Consult: Bicytopenia Referring Physician Referring Physician: Dr. Duvall Identification/Chief Complaint Chief Complaint Fever Problems: (1) Anemia (2) Elevated INR (3) Thrombocytopenia Source Source: Chart review, Patient History of Present Illness Reason for Visit: Sakina Oh is a 19-year-old female with history of gastroparesis who is currently on TPN who has been admitted with suspected MSSA bacteremia from Port-A-Cath infection. Patient presented with fever. He has been admitted and is currently receiving antimicrobial therapy for suspected Port-A-Cath related central line infection. Her lab studies during hospital stay have shown elevated INR and prothrombin time. Lab studies have also shown new onset normocytic anemia and thrombocytopenia. Patient denies a prior history of these lab abnormalities. Review her of her lab studies shows normal CBC as recently as a month ago. She has no history of bleeding manifestations. She predominately relies on TPN to obtain nutrition. Past Medical History Cardiovascular: HTN Pulmonary: Asthma GI: Other Psych: Anxiety, Depression Past Surgical History Past Surgical History: Cholecystectomy, Other Family History Family History: No Significant Social History ALCOHOL: none Current Problem List Problem List Problems Medical Problems: (1) Fever Status: Acute (2) Infection due to Port-A-Cath Status: Acute Current Medications Current Medications Current Medications Sodium Chloride 1,000 ml @ 1,000 mls/hr Q1H IV Last administered on 12/26/19at 14:52; Start 12/26/19 at 14:44; Stop 12/26/19 at 15:43; Status DC Acetaminophen (Tylenol) 1,000 mg 1X ONCE PO Last administered on 12/26/19at 14:52; Start 12/26/19 at 14:45; Stop 12/26/19 at 14:52; Status DC Fentanyl Citrate (Fentanyl 2ml Vial) 50 mcg 1X ONCE IVP Last administered on 12/26/19at 14:51; Start 12/26/19 at 14:45; Stop 12/26/19 at 14:52; Status DC Sodium Chloride 1,000 ml @ 1,000 mls/hr 1X ONCE IV Last administered on 12/26/19at 16:16; Start 12/26/19 at 15:30; Stop 12/26/19 at 16:29; Status DC Piperacillin Sod/ Tazobactam Sod 3.375 gm/Sodium Chloride 50 ml @ 100 mls/hr 1X ONCE IV Last administered on 12/26/19at 16:15; Start 12/26/19 at 16:15; Stop 12/27/19 at 10:20; Status DC Diphenhydramine HCl (Benadryl) 25 mg 1X ONCE IVP Last administered on 12/26/19at 16:16; Start 12/26/19 at 16:15; Stop 12/26/19 at 16:16; Status DC Vancomycin HCl (Vanco Per Pharmacy) 1 each PRN DAILY PRN MC SEE COMMENTS Last administered on 12/26/19at 17:36; Start 12/26/19 at 16:15 Vancomycin HCl 1.75 gm/Sodium Chloride 500 ml @ 250 mls/hr 1X ONCE IV Last administered on 12/26/19at 16:59; Start 12/26/19 at 17:00; Stop 12/26/19 at 18:59; Status DC Fentanyl Citrate (Fentanyl 2ml Vial) 50 mcg 1X ONCE IVP Last administered on 12/26/19at 16:59; Start 12/26/19 at 16:45; Stop 12/26/19 at 16:46; Status DC Vancomycin HCl 1 gm/Sodium Chloride 250 ml @ 250 mls/hr Q8H IV Last administered on 12/27/19at 09:34; Start 12/27/19 at 01:00 Vancomycin HCl (Vancomycin Trough Level) 1 each 1X ONCE MC ; Start 12/27/19 at 16:30; Stop 12/27/19 at 16:31 Fentanyl Citrate (Fentanyl 2ml Vial) 50 mcg PRN Q2HR PRN IVP PAIN Last administered on 12/27/19at 11:50; Start 12/26/19 at 18:45 Ondansetron HCl (Zofran) 4 mg PRN Q6HRS PRN IVP NAUSEA/VOMITING Last administered on 12/27/19at 09:32; Start 12/26/19 at 18:45 Prochlorperazine Edisylate (Compazine) 10 mg PRN Q8HRS PRN IM NAUSEA/VOMITING Last administered on 12/27/19at 06:04; Start 12/26/19 at 18:45 Acetaminophen (Tylenol) 650 mg PRN Q6HRS PRN PEG MILD PAIN / TEMP > 100.3'F Last administered on 12/27/19at 11:50; Start 12/26/19 at 18:45 Cefazolin Sodium/ Dextrose 50 ml @ 100 mls/hr Q8HRS IV ; Start 12/27/19 at 11:00; Status Cancel Cefazolin Sodium/ Dextrose 50 ml @ 100 mls/hr Q8HRS IV Last administered on 12/27/19at 11:50; Start 12/27/19 at 12:00 Amino Acids/ Glycerin/ Electrolytes 1,000 ml @ 75 mls/hr [id number] IV Last administered on 12/27/19at 11:52; Start 12/27/19 at 11:30 Active Scripts Active [Tpn Per Pharmacy] 1 EACH Each 1 Each PRN DAILY PRN 30 Days Tpn Electrolytes Vial (Sodium/K+/Mag/Ca/Chlor/Acetate) 20 Ml Vial 20 Ml IV [id number] 30 Days Metoclopramide Hcl 5 Mg/1 Ml Vial 10 Mg IVP PRN Q6HRS PRN 14 Days [Pantoprazole Iv Push] 40 MG Vial 40 Mg IVP BIDAC 30 Days Ondansetron Hcl 4 Mg/2 Ml Vial (Ondansetron Hcl/Pf) 4 Mg/2 Ml Vial 4 Mg IVP PRN Q6HRS PRN 30 Days Prochlorperazine Edisylate 10 Mg/2 Ml Vial 10 Mg IV PRN Q6HRS PRN 14 Days Milk Of Magnesia (Magnesium Hydroxide) 400 Mg/5 Ml Oral.susp 2,400 Mg JT DAILY 30 Days Enemeez (Docusate Sodium) 283 Mg/5 Ml Enema 283 Mg [place] PRN DAILY PRN 30 Days Bisacodyl 10 Mg Supp.rect 10 Mg [place] PRN DAILY PRN 30 Days Nystatin 100,000 Unit/1 Ml Oral.susp 5 Ml SWSW [id number] 10 Days Hydrocodone-Apap 7.5-325/15 Soln (Hydrocodone Bit/Acetaminophen) 15 Ml Solution 15 Ml JT PRN Q6HRS PRN Reported Metoprolol Tartrate 50 Mg Tablet 1 Tab PO BID Advair Hfa 230-21 Mcg Inhaler (Fluticasone/Salmeterol) 12 Gm Hfa.aer.ad 1 Inh IH BID Dicyclomine Hcl 20 Mg Tablet 20 Mg GT PRN QID PRN Olopatadine HCl 5 Ml Drops 0.1 % OP PRN DAILY PRN Promethazine Hcl 12.5 Mg Tablet 25 Mg GT Q6H PRN Trazodone Hcl 50 Mg Tablet 50 Mg GT HS Coq-10 (Ubidecarenone) 100 Mg Capsule 200 Mg GT DAILY Vitamin D3 (Cholecalciferol (Vitamin D3)) 4,000 Unit Capsule 2,000 Unit PO HS Xyzal (Levocetirizine Dihydrochloride) 5 Mg Tablet 5 Mg GT HS Proair Hfa (Albuterol Sulfate) 8.5 Gm Hfa.aer.ad 2 Puff IH PRN Q4-6HRS PRN 21 Days Ipratropium [place] 30 Ml [place] 1 [place] NS DAILY Duoneb 0.5-3(2.5) Mg/3 Ml (Albuterol/Ipratropium) 3 Ml Ampul.neb 3 Ml NEB PRN QID PRN Montelukast Sodium Tablet (Montelukast Sodium) 10 Mg Tablet 10 Mg GT DAILY PRN Multi Vitamin Daily (Multivitamin) 1 Each Tablet 1 Each GT DAILY Allergies Allergies: Coded Allergies: Penicillins (Verified Allergy, Intermediate, LIGHT RASH CHILD, 08/30/19) Sulfa (Sulfonamide Antibiotics) (Verified Allergy, Intermediate, 08/29/19) ROS General: No: Chills, Night Sweats PSYCHOLOGICAL ROS: No: Anxiety, Behavioral Disorder Eyes: No Blurry vision, No Decreased vision HEENT: No: Heacaches, Visual Changes ALLERGY AND IMMUNOLOGY: No: Hives, Nasal Congestion Hematological and Lymphatic: No: Blood Clots, Blood Transfusions ENDOCRINE: No: Malaise/lethargy, Mood Swings Breast: No New/Changing Breast Lumps, No Nipple changes Respiratory: No: Cough, Hemoptysis Cardiovascular: No Chest Pain, No Palpitations Gastrointestinal: No Nausea, No Vomiting, No Abdominal Pain Genitourinary: No Dysuria, No Flank Pain Musculoskeletal: No Gait Disturbance, No Joint Pain Neurological: No Confusion, No Dizziness Skin: No Dry Skin, No Eczema Physical Exam General: Alert, Oriented X3 HEENT: Atraumatic Lungs: Clear to auscultation Heart: Regular rate Abdomen: Normal bowel sounds, Soft Extremities: No clubbing Skin: No rashes Neuro: Cranial nerves 3-12 NL MUSCULOSKELETAL: No swelling Vitals VITALS Vital Signs Date Time Temp Pulse Resp B/P (MAP) Pulse Ox O2 Delivery O2 Flow Rate FiO2 12/27/19 12:20 17 Room Air 12/27/19 11:28 101.4 84 109/62 (78) 96 101.4 Labs Labs Laboratory Tests Test 12/26/19 14:45 12/27/19 10:25 12/27/19 10:35 White Blood Count 5.9 x10^3/uL (4.0-11.0) Red Blood Count 3.15 x10^6/uL (3.50-5.40) Hemoglobin 10.2 g/dL (12.0-15.5) Hematocrit 29.9 % (36.0-47.0) Mean Corpuscular Volume 95 fL (79-100) Mean Corpuscular Hemoglobin 32 pg (25-35) Mean Corpuscular Hemoglobin Concent 34 g/dL (31-37) Red Cell Distribution Width 13.4 % (11.5-14.5) Platelet Count 95 x10^3/uL (140-400) Neutrophils (%) (Auto) 86 % (31-73) Lymphocytes (%) (Auto) 6 % (24-48) Monocytes (%) (Auto) 8 % (0-9) Eosinophils (%) (Auto) 0 % (0-3) Basophils (%) (Auto) 0 % (0-3) Neutrophils # (Auto) 5.1 x10^3/uL (1.8-7.7) Lymphocytes # (Auto) 0.3 x10^3/uL (1.0-4.8) Monocytes # (Auto) 0.5 x10^3/uL (0.0-1.1) Eosinophils # (Auto) 0.0 x10^3/uL (0.0-0.7) Basophils # (Auto) 0.0 x10^3/uL (0.0-0.2) Segmented Neutrophils % 86 % (35-66) Band Neutrophils % 2 % (0-9) Lymphocytes % 6 % (24-48) Monocytes % 6 % (0-10) Toxic Granulation Slight Platelet Estimate Decreased (ADEQUATE) Prothrombin Time 15.4 SEC (11.7-14.0) Prothromb Time International Ratio 1.3 (0.8-1.1) Sodium Level 139 mmol/L (136-145) Potassium Level 3.6 mmol/L (3.5-5.1) Chloride Level 106 mmol/L (98-107) Carbon Dioxide Level 23 mmol/L (21-32) Anion Gap 10 (6-14) Blood Urea Nitrogen 14 mg/dL (7-20) Creatinine 0.6 mg/dL (0.6-1.0) Estimated GFR (Cockcroft-Gault) 126.2 BUN/Creatinine Ratio 23 (6-20) Glucose Level 101 mg/dL (70-99) Lactic Acid Level 1.1 mmol/L (0.4-2.0) Calcium Level 8.4 mg/dL (8.5-10.1) Total Bilirubin 0.9 mg/dL (0.2-1.0) Aspartate Amino Transf (AST/SGOT) 12 U/L (15-37) Alanine Aminotransferase (ALT/SGPT) 31 U/L (14-59) Alkaline Phosphatase 102 U/L (46-116) Total Protein 6.6 g/dL (6.4-8.2) Albumin 3.6 g/dL (3.4-5.0) Albumin/Globulin Ratio 1.2 (1.0-1.7) Urine Collection Type Unknown Urine Color Rashmi Urine Clarity Clear Urine pH 6.0 (<5.0-8.0) Urine Specific [place] 1.025 (1.000-1.030) Urine Protein Negative mg/dL (NEG-TRACE) Urine Glucose (UA) Negative mg/dL (NEG) Urine Ketones (Stick) 40 mg/dL (NEG) Urine Blood Negative (NEG) Urine Nitrite Negative (NEG) Urine Bilirubin Negative (NEG) Urine Urobilinogen Dipstick 1.0 mg/dL (0.2 mg/dL) Urine Leukocyte Esterase Negative (NEG) Urine RBC 0 /HPF (0-2) Urine WBC 1-4 /HPF (0-4) Urine Squamous Epithelial Cells Few /LPF Urine Bacteria 0 /HPF (0-FEW) Urine Mucus Marked /LPF SARS-CoV-2 Antigen (Rapid) Negative (NEGATIVE) Laboratory Tests Test 12/27/19 10:25 12/27/19 10:35 Urine Collection Type Unknown Urine Color Rashmi Urine Clarity Clear Urine pH 6.0 (<5.0-8.0) Urine Specific [place] 1.025 (1.000-1.030) Urine Protein Negative mg/dL (NEG-TRACE) Urine Glucose (UA) Negative mg/dL (NEG) Urine Ketones (Stick) 40 mg/dL (NEG) Urine Blood Negative (NEG) Urine Nitrite Negative (NEG) Urine Bilirubin Negative (NEG) Urine Urobilinogen Dipstick 1.0 mg/dL (0.2 mg/dL) Urine Leukocyte Esterase Negative (NEG) Urine RBC 0 /HPF (0-2) Urine WBC 1-4 /HPF (0-4) Urine Squamous Epithelial Cells Few /LPF Urine Bacteria 0 /HPF (0-FEW) Urine Mucus Marked /LPF SARS-CoV-2 Antigen (Rapid) Negative (NEGATIVE) Assessment/Plan Assessment/Plan Assessment: Elevated INR Normocytic anemia Thrombocytopenia MSSA bacteremia Port-A-Cath infection Gastroparesis TPN dependence Recommendations: -Would recommend checking APTT and repeat prothrombin time with INR with mixing studies -Would plan on checking factor VII levels if mixing studies correct PT and APTT is found to be normal. -Suspicion for vitamin K deficiency given TPN dependence. Would recommend nutrition evaluation to confirm if her TPN formulation contains vitamin K. -Suspect that anemia and thrombocytopenia are is reactive from acute illness. Recent CBC showed normal findings. However, will check B12 level. Thank you for the consult Brandon Rosa MD Medical Oncology/Hematology Ph: [phone] CHIARA ROSA MD Dec 27, 2019 15:34
--- NOTE | 2019-12-27 15:38 | PDOC2 ---
CONSULT Date of Consult Date of Consult DATE: 12/27/19 TIME: 15:30 Reason for Consult Reason for Consult: infected port Referring Physician Referring Physician: ER Identification/Chief Complaint Chief Complaint fever Source Source: Chart review, Patient History of Present Illness Reason for Visit: Patient known from previous admissions. Pain to port site, g tube pain and some drainage. Fevers at home. TPN ID evaluated Past Medical History Cardiovascular: HTN Pulmonary: Asthma GI: Other Psych: Anxiety, Depression Past Surgical History Past Surgical History: Cholecystectomy, Other Family History Family History: No Significant Social History ALCOHOL: none Current Problem List Problem List Problems Medical Problems: (1) Fever Status: Acute (2) Infection due to Port-A-Cath Status: Acute Current Medications Current Medications Current Medications Sodium Chloride 1,000 ml @ 1,000 mls/hr Q1H IV Last administered on 12/26/19at 14:52; Start 12/26/19 at 14:44; Stop 12/26/19 at 15:43; Status DC Acetaminophen (Tylenol) 1,000 mg 1X ONCE PO Last administered on 12/26/19at 14:52; Start 12/26/19 at 14:45; Stop 12/26/19 at 14:52; Status DC Fentanyl Citrate (Fentanyl 2ml Vial) 50 mcg 1X ONCE IVP Last administered on 12/26/19at 14:51; Start 12/26/19 at 14:45; Stop 12/26/19 at 14:52; Status DC Sodium Chloride 1,000 ml @ 1,000 mls/hr 1X ONCE IV Last administered on 12/26/19at 16:16; Start 12/26/19 at 15:30; Stop 12/26/19 at 16:29; Status DC Piperacillin Sod/ Tazobactam Sod 3.375 gm/Sodium Chloride 50 ml @ 100 mls/hr 1X ONCE IV Last administered on 12/26/19at 16:15; Start 12/26/19 at 16:15; Stop 12/27/19 at 10:20; Status DC Diphenhydramine HCl (Benadryl) 25 mg 1X ONCE IVP Last administered on 12/26/19at 16:16; Start 12/26/19 at 16:15; Stop 12/26/19 at 16:16; Status DC Vancomycin HCl (Vanco Per Pharmacy) 1 each PRN DAILY PRN MC SEE COMMENTS Last administered on 12/26/19at 17:36; Start 12/26/19 at 16:15 Vancomycin HCl 1.75 gm/Sodium Chloride 500 ml @ 250 mls/hr 1X ONCE IV Last administered on 12/26/19at 16:59; Start 12/26/19 at 17:00; Stop 12/26/19 at 18:59; Status DC Fentanyl Citrate (Fentanyl 2ml Vial) 50 mcg 1X ONCE IVP Last administered on 12/26/19at 16:59; Start 12/26/19 at 16:45; Stop 12/26/19 at 16:46; Status DC Vancomycin HCl 1 gm/Sodium Chloride 250 ml @ 250 mls/hr Q8H IV Last administered on 12/27/19at 09:34; Start 12/27/19 at 01:00 Vancomycin HCl (Vancomycin Trough Level) 1 each 1X ONCE MC ; Start 12/27/19 at 16:30; Stop 12/27/19 at 16:31 Fentanyl Citrate (Fentanyl 2ml Vial) 50 mcg PRN Q2HR PRN IVP PAIN Last administered on 12/27/19at 11:50; Start 12/26/19 at 18:45 Ondansetron HCl (Zofran) 4 mg PRN Q6HRS PRN IVP NAUSEA/VOMITING Last administered on 12/27/19at 09:32; Start 12/26/19 at 18:45 Prochlorperazine Edisylate (Compazine) 10 mg PRN Q8HRS PRN IM NAUSEA/VOMITING Last administered on 12/27/19at 06:04; Start 12/26/19 at 18:45 Acetaminophen (Tylenol) 650 mg PRN Q6HRS PRN PEG MILD PAIN / TEMP > 100.3'F Last administered on 12/27/19at 11:50; Start 12/26/19 at 18:45 Cefazolin Sodium/ Dextrose 50 ml @ 100 mls/hr Q8HRS IV ; Start 12/27/19 at 11:00; Status Cancel Cefazolin Sodium/ Dextrose 50 ml @ 100 mls/hr Q8HRS IV Last administered on 12/27/19at 11:50; Start 12/27/19 at 12:00 Amino Acids/ Glycerin/ Electrolytes 1,000 ml @ 75 mls/hr [id number] IV Last administered on 8/6/20at 11:52; Start 12/27/19 at 11:30 Active Scripts Active [Tpn Per Pharmacy] 1 EACH Each 1 Each MC PRN DAILY PRN 30 Days Tpn Electrolytes Vial (Sodium/K+/Mag/Ca/Chlor/Acetate) 20 Ml Vial 20 Ml IV DAILY06 30 Days Metoclopramide Hcl 5 Mg/1 Ml Vial 10 Mg IVP PRN Q6HRS PRN 14 Days [Pantoprazole Iv Push] 40 MG Vial 40 Mg IVP BIDAC 30 Days Ondansetron Hcl 4 Mg/2 Ml Vial (Ondansetron Hcl/Pf) 4 Mg/2 Ml Vial 4 Mg IVP PRN Q6HRS PRN 30 Days Prochlorperazine Edisylate 10 Mg/2 Ml Vial 10 Mg IV PRN Q6HRS PRN 14 Days Milk Of Magnesia (Magnesium Hydroxide) 400 Mg/5 Ml Oral.susp 2,400 Mg JT DAILY 30 Days Enemeez (Docusate Sodium) 283 Mg/5 Ml Enema 283 Mg [place] PRN DAILY PRN 30 Days Bisacodyl 10 Mg Supp.rect 10 Mg [place] PRN DAILY PRN 30 Days Nystatin 100,000 Unit/1 Ml Oral.susp 5 Ml SWSW [id number] 10 Days Hydrocodone-Apap 7.5-325/15 Soln (Hydrocodone Bit/Acetaminophen) 15 Ml Solution 15 Ml JT PRN Q6HRS PRN Reported Metoprolol Tartrate 50 Mg Tablet 1 Tab PO BID Advair Hfa 230-21 Mcg Inhaler (Fluticasone/Salmeterol) 12 Gm Hfa.aer.ad 1 Inh IH BID Dicyclomine Hcl 20 Mg Tablet 20 Mg GT PRN QID PRN Olopatadine HCl 5 Ml Drops 0.1 % OP PRN DAILY PRN Promethazine Hcl 12.5 Mg Tablet 25 Mg GT Q6H PRN Trazodone Hcl 50 Mg Tablet 50 Mg GT HS Coq-10 (Ubidecarenone) 100 Mg Capsule 200 Mg GT DAILY Vitamin D3 (Cholecalciferol (Vitamin D3)) 4,000 Unit Capsule 2,000 Unit PO HS Xyzal (Levocetirizine Dihydrochloride) 5 Mg Tablet 5 Mg GT HS Proair Hfa (Albuterol Sulfate) 8.5 Gm Hfa.aer.ad 2 Puff IH PRN Q4-6HRS PRN 21 Days Ipratropium [place] 30 Ml [place] 1 [place] NS DAILY Duoneb 0.5-3(2.5) Mg/3 Ml (Albuterol/Ipratropium) 3 Ml Ampul.neb 3 Ml NEB PRN QID PRN Montelukast Sodium Tablet (Montelukast Sodium) 10 Mg Tablet 10 Mg GT DAILY PRN Multi Vitamin Daily (Multivitamin) 1 Each Tablet 1 Each GT DAILY Allergies Allergies: Coded Allergies: Penicillins (Verified Allergy, Intermediate, LIGHT RASH CHILD, 08/30/19) Sulfa (Sulfonamide Antibiotics) (Verified Allergy, Intermediate, 08/29/19) ROS General: YES: Chills, Other (fevers ) PSYCHOLOGICAL ROS: No: Anxiety, Depression Eyes: No Blurry vision, No Double vision HEENT: No: Heacaches, Sore Throat Hematological and Lymphatic: No: Bleeding Problems, Blood Clots Respiratory: No: Cough, Shortness of breath Cardiovascular: No Chest Pain, No Palpitations Gastrointestinal: Yes Nausea; No Vomiting Genitourinary: YES Hematuria; No Dysuria Musculoskeletal: No Joint Pain, No Muscle Pain Neurological: No Impaired Coord/balance, No Numbness/Tingling Skin: Yes Other (see hpi) Physical Exam General: Alert, Oriented X3, Cooperative HEENT: Atraumatic, PERRLA Lungs: Clear to auscultation, Normal air movement Heart: Regular rate, Normal S1, Normal S2 Abdomen: Soft, Other (ND) Extremities: No clubbing, No cyanosis Skin: Other (erythema to port site ) Psych/Mental Status: Mental status NL, Mood NL MUSCULOSKELETAL: No deformity, No swelling Vitals VITALS Vital Signs Date Time Temp Pulse Resp B/P (MAP) Pulse Ox O2 Delivery O2 Flow Rate FiO2 12/27/19 15:00 98.7 102 17 88/49 (62) 98 Room Air 98.7 Labs Labs Laboratory Tests Test 12/26/19 14:45 12/27/19 10:25 12/27/19 10:35 White Blood Count 5.9 x10^3/uL (4.0-11.0) Red Blood Count 3.15 x10^6/uL (3.50-5.40) Hemoglobin 10.2 g/dL (12.0-15.5) Hematocrit 29.9 % (36.0-47.0) Mean Corpuscular Volume 95 fL (79-100) Mean Corpuscular Hemoglobin 32 pg (25-35) Mean Corpuscular Hemoglobin Concent 34 g/dL (31-37) Red Cell Distribution Width 13.4 % (11.5-14.5) Platelet Count 95 x10^3/uL (140-400) Neutrophils (%) (Auto) 86 % (31-73) Lymphocytes (%) (Auto) 6 % (24-48) Monocytes (%) (Auto) 8 % (0-9) Eosinophils (%) (Auto) 0 % (0-3) Basophils (%) (Auto) 0 % (0-3) Neutrophils # (Auto) 5.1 x10^3/uL (1.8-7.7) Lymphocytes # (Auto) 0.3 x10^3/uL (1.0-4.8) Monocytes # (Auto) 0.5 x10^3/uL (0.0-1.1) Eosinophils # (Auto) 0.0 x10^3/uL (0.0-0.7) Basophils # (Auto) 0.0 x10^3/uL (0.0-0.2) Segmented Neutrophils % 86 % (35-66) Band Neutrophils % 2 % (0-9) Lymphocytes % 6 % (24-48) Monocytes % 6 % (0-10) Toxic Granulation Slight Platelet Estimate Decreased (ADEQUATE) Prothrombin Time 15.4 SEC (11.7-14.0) Prothromb Time International Ratio 1.3 (0.8-1.1) Sodium Level 139 mmol/L (136-145) Potassium Level 3.6 mmol/L (3.5-5.1) Chloride Level 106 mmol/L (98-107) Carbon Dioxide Level 23 mmol/L (21-32) Anion Gap 10 (6-14) Blood Urea Nitrogen 14 mg/dL (7-20) Creatinine 0.6 mg/dL (0.6-1.0) Estimated GFR (Cockcroft-Gault) 126.2 BUN/Creatinine Ratio 23 (6-20) Glucose Level 101 mg/dL (70-99) Lactic Acid Level 1.1 mmol/L (0.4-2.0) Calcium Level 8.4 mg/dL (8.5-10.1) Total Bilirubin 0.9 mg/dL (0.2-1.0) Aspartate Amino Transf (AST/SGOT) 12 U/L (15-37) Alanine Aminotransferase (ALT/SGPT) 31 U/L (14-59) Alkaline Phosphatase 102 U/L (46-116) Total Protein 6.6 g/dL (6.4-8.2) Albumin 3.6 g/dL (3.4-5.0) Albumin/Globulin Ratio 1.2 (1.0-1.7) Urine Collection Type Unknown Urine Color Rashmi Urine Clarity Clear Urine pH 6.0 (<5.0-8.0) Urine Specific [place] 1.025 (1.000-1.030) Urine Protein Negative mg/dL (NEG-TRACE) Urine Glucose (UA) Negative mg/dL (NEG) Urine Ketones (Stick) 40 mg/dL (NEG) Urine Blood Negative (NEG) Urine Nitrite Negative (NEG) Urine Bilirubin Negative (NEG) Urine Urobilinogen Dipstick 1.0 mg/dL (0.2 mg/dL) Urine Leukocyte Esterase Negative (NEG) Urine RBC 0 /HPF (0-2) Urine WBC 1-4 /HPF (0-4) Urine Squamous Epithelial Cells Few /LPF Urine Bacteria 0 /HPF (0-FEW) Urine Mucus Marked /LPF SARS-CoV-2 Antigen (Rapid) Negative (NEGATIVE) Laboratory Tests Test 12/27/19 10:25 12/27/19 10:35 Urine Collection Type Unknown Urine Color Rashmi Urine Clarity Clear Urine pH 6.0 (<5.0-8.0) Urine Specific [place] 1.025 (1.000-1.030) Urine Protein Negative mg/dL (NEG-TRACE) Urine Glucose (UA) Negative mg/dL (NEG) Urine Ketones (Stick) 40 mg/dL (NEG) Urine Blood Negative (NEG) Urine Nitrite Negative (NEG) Urine Bilirubin Negative (NEG) Urine Urobilinogen Dipstick 1.0 mg/dL (0.2 mg/dL) Urine Leukocyte Esterase Negative (NEG) Urine RBC 0 /HPF (0-2) Urine WBC 1-4 /HPF (0-4) Urine Squamous Epithelial Cells Few /LPF Urine Bacteria 0 /HPF (0-FEW) Urine Mucus Marked /LPF SARS-CoV-2 Antigen (Rapid) Negative (NEGATIVE) Assessment/Plan Assessment/Plan ID management noted IR placed port, will consult them, --g tube pain--possible eval for exchange also HANNAH VALLE ADMISSIONS MANAGER RN Dec 27, 2019 15:38
--- NOTE | 2019-12-27 15:50 | NUR ---
Pt moved to 422.
[2019-12-27 17:42] LABS: VANC TR 7.5 mcg/mL (10.0-20.0)
[2019-12-27 19:00] VITALS: BP 119/67
[2019-12-27] MEDS: VANCOMYCIN PER PHARMACY MC PRN (20:30)
[2019-12-27 23:00] VITALS: BP 116/55
[2019-12-28] VITALS (12 sets, daily range): BP systolic 85–106; BP diastolic 43–68
[2019-12-28] MEDS: VANCOMYCIN 1.25 GM in IV NORMAL SALINE 250ML 250 ML IV SCH ×3 (02:15→17:27)
[2019-12-28] MEDS: ONDANSETRON PF 4 MG/2 ML VIAL. IVP PRN ×4 (02:25→23:25)
[2019-12-28] MEDS: fentaNYL PF VIAL 100 MCG/2 ML VIAL IVP PRN ×8 (02:28→23:27)
[2019-12-28 06:24] LABS: CALCIUM 7.7 mg/dL (8.5-10.1); CREATININE 0.6 mg/dL (0.6-1.0); GFR 126.2; POTASSIUM 3.3 mmol/L (3.5-5.1)
[2019-12-28] MEDS: AMINO AC 3%/ELECTROLYTE/GLYCER 1,000 ML IV SCH ×2 (06:36→14:10)
[2019-12-28 06:42] LABS: BASO % 0 % (0-3); EOS % 0 % (0-3); HEMATOCRIT 26.1 % (36.0-47.0); LYMPH # 0.8 x10^3/uL (1.0-4.8); LYMPH % 21 % (24-48); MEAN CORPUSCULAR HEMOGLOBIN 32 pg (25-35); MEAN CORPUSCULAR HGB CONC 34 g/dL (31-37); MEAN CORPUSCULAR VOLUME 94 fL (79-100); MONO # 0.3 x10^3/uL (0.0-1.1); MONO % 8 % (0-9); NEUT # 2.7 x10^3/uL (1.8-7.7); NEUT % 71 % (31-73); PLATELET COUNT 68 x10^3/uL (140-400); RED BLOOD COUNT 2.78 x10^6/uL (3.50-5.40); RED CELL DISTRIBUTION WIDTH 13.3 % (11.5-14.5); WHITE BLOOD COUNT 3.8 x10^3/uL (4.0-11.0)
--- NOTE | 2019-12-28 09:26 | PDOC ---
Infectious Disease Note Subjective Subjective feeling slightly better ROS ROS no n/v/d/ Vital Sign Vital Signs Vital Signs Date Time Temp Pulse Resp B/P (MAP) Pulse Ox O2 Delivery O2 Flow Rate FiO2 12/28/19 07:06 20 Room Air 12/28/19 07:00 99.7 90 91/49 (63) 96 99.7 Physical Exam PHYSICAL EXAM GENERAL: Alert, oriented female, not in distress. VITAL SIGNS: Stable HEENT: NAD. NECK: Supple. No JVP, no lymphadenopathy. LUNGS: Clear. HEART: S1, S2 regular. ABDOMEN: Benign. EXTREMITIES: No edema or cyanosis. SKIN: Unremarkable, except at the Port-A-Cath site, there is some faint redness present and tenderness present; there is no purulence; there is no obvious significant redness. NEUROLOGICAL: The patient is alert, awake and appropriate. No focal neurologic deficit. Labs Lab Laboratory Tests Test 12/27/19 10:25 12/27/19 10:35 12/27/19 17:00 12/28/19 05:20 Urine Collection Type Unknown Urine Color Rashmi Urine Clarity Clear Urine pH 6.0 (<5.0-8.0) Urine Specific [place] 1.025 (1.000-1.030) Urine Protein Negative mg/dL (NEG-TRACE) Urine Glucose (UA) Negative mg/dL (NEG) Urine Ketones (Stick) 40 mg/dL (NEG) Urine Blood Negative (NEG) Urine Nitrite Negative (NEG) Urine Bilirubin Negative (NEG) Urine Urobilinogen Dipstick 1.0 mg/dL (0.2 mg/dL) Urine Leukocyte Esterase Negative (NEG) Urine RBC 0 /HPF (0-2) Urine WBC 1-4 /HPF (0-4) Urine Squamous Epithelial Cells Few /LPF Urine Bacteria 0 /HPF (0-FEW) Urine Mucus Marked /LPF SARS-CoV-2 Antigen (Rapid) Negative (NEGATIVE) Vancomycin Level Trough 7.5 mcg/mL (10.0-20.0) Vancomycin Last Dose Date Unk Vancomycin Last Dose Time Unk White Blood Count 3.8 x10^3/uL (4.0-11.0) Red Blood Count 2.78 x10^6/uL (3.50-5.40) Hemoglobin 9.0 g/dL (12.0-15.5) Hematocrit 26.1 % (36.0-47.0) Mean Corpuscular Volume 94 fL (79-100) Mean Corpuscular Hemoglobin 32 pg (25-35) Mean Corpuscular Hemoglobin Concent 34 g/dL (31-37) Red Cell Distribution Width 13.3 % (11.5-14.5) Platelet Count 68 x10^3/uL (140-400) Neutrophils (%) (Auto) 71 % (31-73) Lymphocytes (%) (Auto) 21 % (24-48) Monocytes (%) (Auto) 8 % (0-9) Eosinophils (%) (Auto) 0 % (0-3) Basophils (%) (Auto) 0 % (0-3) Neutrophils # (Auto) 2.7 x10^3/uL (1.8-7.7) Lymphocytes # (Auto) 0.8 x10^3/uL (1.0-4.8) Monocytes # (Auto) 0.3 x10^3/uL (0.0-1.1) Eosinophils # (Auto) 0.0 x10^3/uL (0.0-0.7) Basophils # (Auto) 0.0 x10^3/uL (0.0-0.2) Sodium Level 138 mmol/L (136-145) Potassium Level 3.3 mmol/L (3.5-5.1) Chloride Level 107 mmol/L (98-107) Carbon Dioxide Level 22 mmol/L (21-32) Anion Gap 9 (6-14) Blood Urea Nitrogen 10 mg/dL (7-20) Creatinine 0.6 mg/dL (0.6-1.0) Estimated GFR (Cockcroft-Gault) 126.2 Glucose Level 80 mg/dL (70-99) Calcium Level 7.7 mg/dL (8.5-10.1) Micro BLOOD CULTURE Final GRAM POSITIVE COCCI IN CLUSTERS, SUGGESTIVE OF STAPH, IN 3 OF 4 BOTTLES, TWO SETS DRAWN. CALLED TO LAUREN ZHANG ON 6S AT 8:30 ON 12/27/19 DW MT SENT TO [facility] FOR FURTHER WORKUP. Objective Assessment IMPRESSION: 1. Fever. 2. Blood culture positive with Staphylococcus, 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 3. Some redness and tenderness at the Port-A-Cath; unfortunately, was done only one month ago. 4. Gastroparesis, on total parenteral nutrition at home. Plan Plan of Care cont antibiotics check cultures and scale down try to save port if coag neg ISAAC Barakat MD Dec 28, 2019 09:26
--- NOTE | 2019-12-28 09:46 | PDOC ---
PROGRESS NOTES Date of Service: DATE: 12/28/19 TIME: 09:46 Chief Complaint Chief Complaint IMPRESSION === Sepsis 3/4 blood culture bottles positive for gram + cocci in clusters Bicytopenia Hypotension Severe idiopathic gastroparesis Blood culture positive with Staphylococcus, 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 38 MIN PT EXAM, CHART REVIEW, > 50% OF TIME SPENT WITH EXAM, CHART REVIEW, PT CARE COORDINATION History of Present Illness History of Present Illness 12/27/2019 Patient seen and examined Appears acutely ill Laying in bed in moderate distress Complains of fevers, chills, pain at site of port-a-cath Chart reviewed Discussed with RN Vitals Vitals Vital Signs Date Time Temp Pulse Resp B/P (MAP) Pulse Ox O2 Delivery O2 Flow Rate FiO2 12/28/19 07:06 20 Room Air 12/28/19 07:00 99.7 90 91/49 (63) 96 99.7 Physical Exam Physical Exam GENERAL: Alert, oriented female, not in distress. VITAL SIGNS: Stable HEENT: NAD. NECK: Supple. No JVP, no lymphadenopathy. LUNGS: Clear. HEART: S1, S2 regular. ABDOMEN: Benign. EXTREMITIES: No edema or cyanosis. SKIN: Unremarkable, except at the Port-A-Cath site, there is some faint redness present and tenderness present; there is no purulence; there is no obvious significant redness. NEUROLOGICAL: The patient is alert, awake and appropriate. No focal neurologic deficit. General: Alert, Oriented X3, Cooperative Heart: Regular rate, Normal S1, Normal S2 Lungs: Clear Abdomen: Soft, Other (ND) Extremities: No clubbing, No cyanosis Skin: Other (erythema to port site ) Labs LABS EXAM: SMALL BOWEL FOLLOW-THROUGH. HISTORY: Nausea with jejunostomy tube feedings. COMPARISON: None. FINDINGS: A dog races manager image was obtained. 400 mL Omnipaque 300 water-soluble contrast material was administered through the patient's jejunostomy tube over 2 minutes, and followed in its course through the small bowel and colon with fluoroscopy and plain radiographs. 15 fluoroscopic screen captures were obtained. Fluoroscopy time 1.4 minutes. The dog races manager image demonstrates a nonobstructive bowel gas pattern. A gastrostomy and jejunostomy catheter are noted. Cholecystectomy clips are noted. The jejunostomy catheter enters the proximal small bowel in the right upper quadrant. Contrast proceeded through the proximal small bowel promptly. Peristalsis appeared normal. Contrast reached the colon in <15 minutes. No strictures or dilatation are seen. The small bowel fold pattern is unremarkable. The patient complained of nausea during and after injection. There was no vomiting during the procedure. IMPRESSION: 1. Contrast rapidly progressed through the small bowel into the colon in <15 minutes. No leak or other abnormality was identified. Electronically signed by: David Miles MD (11/30/2019 12:06 PM) [id number] DICTATED and SIGNED BY: KARL MILES MD DATE: 11/30/19 1206 INDICATION: Fever COMPARISON: None available TECHNIQUE: Portable frontal view of the chest is provided. FINDINGS: The cardiomediastinal silhouette is within normal limits. Lungs are clear. Right chest wall infusion port catheter is identified with the distal tip terminating at the superior vena cava. Left upper extremity PICC has been removed. There are no significant pleural effusions. There is no pulmonary vascular congestion. No pneumothorax. No suspicious osseous abnormality. IMPRESSION: Right chest wall infusion port catheter is identified with the distal tip projecting over the superior vena cava. No acute cardiopulmonary process is identified. Electronically signed by: Uday Strauss MD (12/26/2019 3:46 PM) [id number] DICTATED and SIGNED BY: UDAY STRAUSS MD DATE: 12/26/19 1546 Laboratory Tests Test 12/27/19 10:25 12/27/19 10:35 12/27/19 17:00 12/28/19 05:20 Urine Collection Type Unknown Urine Color Rashmi Urine Clarity Clear Urine pH 6.0 (<5.0-8.0) Urine Specific [place] 1.025 (1.000-1.030) Urine Protein Negative mg/dL (NEG-TRACE) Urine Glucose (UA) Negative mg/dL (NEG) Urine Ketones (Stick) 40 mg/dL (NEG) Urine Blood Negative (NEG) Urine Nitrite Negative (NEG) Urine Bilirubin Negative (NEG) Urine Urobilinogen Dipstick 1.0 mg/dL (0.2 mg/dL) Urine Leukocyte Esterase Negative (NEG) Urine RBC 0 /HPF (0-2) Urine WBC 1-4 /HPF (0-4) Urine Squamous Epithelial Cells Few /LPF Urine Bacteria 0 /HPF (0-FEW) Urine Mucus Marked /LPF SARS-CoV-2 Antigen (Rapid) Negative (NEGATIVE) Vancomycin Level Trough 7.5 mcg/mL (10.0-20.0) Vancomycin Last Dose Date Unk Vancomycin Last Dose Time Unk White Blood Count 3.8 x10^3/uL (4.0-11.0) Red Blood Count 2.78 x10^6/uL (3.50-5.40) Hemoglobin 9.0 g/dL (12.0-15.5) Hematocrit 26.1 % (36.0-47.0) Mean Corpuscular Volume 94 fL (79-100) Mean Corpuscular Hemoglobin 32 pg (25-35) Mean Corpuscular Hemoglobin Concent 34 g/dL (31-37) Red Cell Distribution Width 13.3 % (11.5-14.5) Platelet Count 68 x10^3/uL (140-400) Neutrophils (%) (Auto) 71 % (31-73) Lymphocytes (%) (Auto) 21 % (24-48) Monocytes (%) (Auto) 8 % (0-9) Eosinophils (%) (Auto) 0 % (0-3) Basophils (%) (Auto) 0 % (0-3) Neutrophils # (Auto) 2.7 x10^3/uL (1.8-7.7) Lymphocytes # (Auto) 0.8 x10^3/uL (1.0-4.8) Monocytes # (Auto) 0.3 x10^3/uL (0.0-1.1) Eosinophils # (Auto) 0.0 x10^3/uL (0.0-0.7) Basophils # (Auto) 0.0 x10^3/uL (0.0-0.2) Sodium Level 138 mmol/L (136-145) Potassium Level 3.3 mmol/L (3.5-5.1) Chloride Level 107 mmol/L (98-107) Carbon Dioxide Level 22 mmol/L (21-32) Anion Gap 9 (6-14) Blood Urea Nitrogen 10 mg/dL (7-20) Creatinine 0.6 mg/dL (0.6-1.0) Estimated GFR (Cockcroft-Gault) 126.2 Glucose Level 80 mg/dL (70-99) Calcium Level 7.7 mg/dL (8.5-10.1) Assessment and Plan Assessmemt and Plan Problems Medical Problems: (1) Fever Status: Acute (2) Infection due to Port-A-Cath Status: Acute Comment Review of Relevant I have reviewed the following items lalo (where applicable) has been applied. Labs Laboratory Tests Test 12/26/19 14:45 12/27/19 06:15 12/27/19 10:25 12/27/19 10:35 White Blood Count 5.9 x10^3/uL (4.0-11.0) Red Blood Count 3.15 x10^6/uL (3.50-5.40) Hemoglobin 10.2 g/dL (12.0-15.5) Hematocrit 29.9 % (36.0-47.0) Mean Corpuscular Volume 95 fL (79-100) Mean Corpuscular Hemoglobin 32 pg (25-35) Mean Corpuscular Hemoglobin Concent 34 g/dL (31-37) Red Cell Distribution Width 13.4 % (11.5-14.5) Platelet Count 95 x10^3/uL (140-400) Neutrophils (%) (Auto) 86 % (31-73) Lymphocytes (%) (Auto) 6 % (24-48) Monocytes (%) (Auto) 8 % (0-9) Eosinophils (%) (Auto) 0 % (0-3) Basophils (%) (Auto) 0 % (0-3) Neutrophils # (Auto) 5.1 x10^3/uL (1.8-7.7) Lymphocytes # (Auto) 0.3 x10^3/uL (1.0-4.8) Monocytes # (Auto) 0.5 x10^3/uL (0.0-1.1) Eosinophils # (Auto) 0.0 x10^3/uL (0.0-0.7) Basophils # (Auto) 0.0 x10^3/uL (0.0-0.2) Segmented Neutrophils % 86 % (35-66) Band Neutrophils % 2 % (0-9) Lymphocytes % 6 % (24-48) Monocytes % 6 % (0-10) Toxic Granulation Slight Platelet Estimate Decreased (ADEQUATE) Prothrombin Time 15.4 SEC (11.7-14.0) Prothromb Time International Ratio 1.3 (0.8-1.1) Sodium Level 139 mmol/L (136-145) Potassium Level 3.6 mmol/L (3.5-5.1) Chloride Level 106 mmol/L (98-107) Carbon Dioxide Level 23 mmol/L (21-32) Anion Gap 10 (6-14) Blood Urea Nitrogen 14 mg/dL (7-20) Creatinine 0.6 mg/dL (0.6-1.0) Estimated GFR (Cockcroft-Gault) 126.2 BUN/Creatinine Ratio 23 (6-20) Glucose Level 101 mg/dL (70-99) Lactic Acid Level 1.1 mmol/L (0.4-2.0) Calcium Level 8.4 mg/dL (8.5-10.1) Total Bilirubin 0.9 mg/dL (0.2-1.0) Aspartate Amino Transf (AST/SGOT) 12 U/L (15-37) Alanine Aminotransferase (ALT/SGPT) 31 U/L (14-59) Alkaline Phosphatase 102 U/L (46-116) Total Protein 6.6 g/dL (6.4-8.2) Albumin 3.6 g/dL (3.4-5.0) Albumin/Globulin Ratio 1.2 (1.0-1.7) Coronavirus (PCR) Not detected (Not Detected) Urine Collection Type Unknown Urine Color Rashmi Urine Clarity Clear Urine pH 6.0 (<5.0-8.0) Urine Specific [place] 1.025 (1.000-1.030) Urine Protein Negative mg/dL (NEG-TRACE) Urine Glucose (UA) Negative mg/dL (NEG) Urine Ketones (Stick) 40 mg/dL (NEG) Urine Blood Negative (NEG) Urine Nitrite Negative (NEG) Urine Bilirubin Negative (NEG) Urine Urobilinogen Dipstick 1.0 mg/dL (0.2 mg/dL) Urine Leukocyte Esterase Negative (NEG) Urine RBC 0 /HPF (0-2) Urine WBC 1-4 /HPF (0-4) Urine Squamous Epithelial Cells Few /LPF Urine Bacteria 0 /HPF (0-FEW) Urine Mucus Marked /LPF SARS-CoV-2 Antigen (Rapid) Negative (NEGATIVE) Test 12/27/19 17:00 12/28/19 05:20 Vancomycin Level Trough 7.5 mcg/mL (10.0-20.0) Vancomycin Last Dose Date Unk Vancomycin Last Dose Time Unk White Blood Count 3.8 x10^3/uL (4.0-11.0) Red Blood Count 2.78 x10^6/uL (3.50-5.40) Hemoglobin 9.0 g/dL (12.0-15.5) Hematocrit 26.1 % (36.0-47.0) Mean Corpuscular Volume 94 fL (79-100) Mean Corpuscular Hemoglobin 32 pg (25-35) Mean Corpuscular Hemoglobin Concent 34 g/dL (31-37) Red Cell Distribution Width 13.3 % (11.5-14.5) Platelet Count 68 x10^3/uL (140-400) Neutrophils (%) (Auto) 71 % (31-73) Lymphocytes (%) (Auto) 21 % (24-48) Monocytes (%) (Auto) 8 % (0-9) Eosinophils (%) (Auto) 0 % (0-3) Basophils (%) (Auto) 0 % (0-3) Neutrophils # (Auto) 2.7 x10^3/uL (1.8-7.7) Lymphocytes # (Auto) 0.8 x10^3/uL (1.0-4.8) Monocytes # (Auto) 0.3 x10^3/uL (0.0-1.1) Eosinophils # (Auto) 0.0 x10^3/uL (0.0-0.7) Basophils # (Auto) 0.0 x10^3/uL (0.0-0.2) Sodium Level 138 mmol/L (136-145) Potassium Level 3.3 mmol/L (3.5-5.1) Chloride Level 107 mmol/L (98-107) Carbon Dioxide Level 22 mmol/L (21-32) Anion Gap 9 (6-14) Blood Urea Nitrogen 10 mg/dL (7-20) Creatinine 0.6 mg/dL (0.6-1.0) Estimated GFR (Cockcroft-Gault) 126.2 Glucose Level 80 mg/dL (70-99) Calcium Level 7.7 mg/dL (8.5-10.1) Laboratory Tests Test 12/27/19 10:25 12/27/19 10:35 12/27/19 17:00 12/28/19 05:20 Urine Collection Type Unknown Urine Color Rashmi Urine Clarity Clear Urine pH 6.0 (<5.0-8.0) Urine Specific [place] 1.025 (1.000-1.030) Urine Protein Negative mg/dL (NEG-TRACE) Urine Glucose (UA) Negative mg/dL (NEG) Urine Ketones (Stick) 40 mg/dL (NEG) Urine Blood Negative (NEG) Urine Nitrite Negative (NEG) Urine Bilirubin Negative (NEG) Urine Urobilinogen Dipstick 1.0 mg/dL (0.2 mg/dL) Urine Leukocyte Esterase Negative (NEG) Urine RBC 0 /HPF (0-2) Urine WBC 1-4 /HPF (0-4) Urine Squamous Epithelial Cells Few /LPF Urine Bacteria 0 /HPF (0-FEW) Urine Mucus Marked /LPF SARS-CoV-2 Antigen (Rapid) Negative (NEGATIVE) Vancomycin Level Trough 7.5 mcg/mL (10.0-20.0) Vancomycin Last Dose Date Unk Vancomycin Last Dose Time Unk White Blood Count 3.8 x10^3/uL (4.0-11.0) Red Blood Count 2.78 x10^6/uL (3.50-5.40) Hemoglobin 9.0 g/dL (12.0-15.5) Hematocrit 26.1 % (36.0-47.0) Mean Corpuscular Volume 94 fL (79-100) Mean Corpuscular Hemoglobin 32 pg (25-35) Mean Corpuscular Hemoglobin Concent 34 g/dL (31-37) Red Cell Distribution Width 13.3 % (11.5-14.5) Platelet Count 68 x10^3/uL (140-400) Neutrophils (%) (Auto) 71 % (31-73) Lymphocytes (%) (Auto) 21 % (24-48) Monocytes (%) (Auto) 8 % (0-9) Eosinophils (%) (Auto) 0 % (0-3) Basophils (%) (Auto) 0 % (0-3) Neutrophils # (Auto) 2.7 x10^3/uL (1.8-7.7) Lymphocytes # (Auto) 0.8 x10^3/uL (1.0-4.8) Monocytes # (Auto) 0.3 x10^3/uL (0.0-1.1) Eosinophils # (Auto) 0.0 x10^3/uL (0.0-0.7) Basophils # (Auto) 0.0 x10^3/uL (0.0-0.2) Sodium Level 138 mmol/L (136-145) Potassium Level 3.3 mmol/L (3.5-5.1) Chloride Level 107 mmol/L (98-107) Carbon Dioxide Level 22 mmol/L (21-32) Anion Gap 9 (6-14) Blood Urea Nitrogen 10 mg/dL (7-20) Creatinine 0.6 mg/dL (0.6-1.0) Estimated GFR (Cockcroft-Gault) 126.2 Glucose Level 80 mg/dL (70-99) Calcium Level 7.7 mg/dL (8.5-10.1) Microbiology 12/26/19 Blood Culture - Preliminary, Resulted Medications Current Medications Sodium Chloride 1,000 ml @ 1,000 mls/hr Q1H IV Last administered on 12/26/19at 1 4:52; Start 12/26/19 at 14:44; Stop 12/26/19 at 15:43; Status DC Acetaminophen (Tylenol) 1,000 mg 1X ONCE PO Last administered on 12/26/19at 14:52; Start 12/26/19 at 14:45; Stop 12/26/19 at 14:52; Status DC Fentanyl Citrate (Fentanyl 2ml Vial) 50 mcg 1X ONCE IVP Last administered on 12/26/19at 14:51; Start 12/26/19 at 14:45; Stop 12/26/19 at 14:52; Status DC Sodium Chloride 1,000 ml @ 1,000 mls/hr 1X ONCE IV Last administered on 12/26/19at 16:16; Start 12/26/19 at 15:30; Stop 12/26/19 at 16:29; Status DC Piperacillin Sod/ Tazobactam Sod 3.375 gm/Sodium Chloride 50 ml @ 100 mls/hr 1X ONCE IV Last administered on 12/26/19at 16:15; Start 12/26/19 at 16:15; Stop 12/27/19 at 10:20; Status DC Diphenhydramine HCl (Benadryl) 25 mg 1X ONCE IVP Last administered on 12/26/19at 16:16; Start 12/26/19 at 16:15; Stop 12/26/19 at 16:16; Status DC Vancomycin HCl (Vanco Per Pharmacy) 1 each PRN DAILY PRN MC SEE COMMENTS Last administered on 12/27/19at 20:30; Start 12/26/19 at 16:15 Vancomycin HCl 1.75 gm/Sodium Chloride 500 ml @ 250 mls/hr 1X ONCE IV Last administered on 12/26/19at 16:59; Start 12/26/19 at 17:00; Stop 12/26/19 at 18:59; Status DC Fentanyl Citrate (Fentanyl 2ml Vial) 50 mcg 1X ONCE IVP Last administered on 12/26/19at 16:59; Start 12/26/19 at 16:45; Stop 12/26/19 at 16:46; Status DC Vancomycin HCl 1 gm/Sodium Chloride 250 ml @ 250 mls/hr Q8H IV Last administered on 12/27/19at 18:09; Start 12/27/19 at 01:00; Stop 12/27/19 at 20:25; Status DC Vancomycin HCl (Vancomycin Trough Level) 1 each 1X ONCE MC Last administered on 12/27/19at 16:30; Start 12/27/19 at 16:30; Stop 12/27/19 at 16:31; Status DC Fentanyl Citrate (Fentanyl 2ml Vial) 50 mcg PRN Q2HR PRN IVP PAIN Last administered on 12/28/19at 06:36; Start 12/26/19 at 18:45 Ondansetron HCl (Zofran) 4 mg PRN Q6HRS PRN IVP NAUSEA/VOMITING Last administered on 12/28/19 02:25; Start 12/26/19 at 18:45 Prochlorperazine Edisylate (Compazine) 10 mg PRN Q8HRS PRN IM NAUSEA/VOMITING Last administered on 12/27/19 06:04; Start 12/26/19 at 18:45 Acetaminophen (Tylenol) 650 mg PRN Q6HRS PRN PEG MILD PAIN / TEMP > 100.3'F Last administered on 12/27/19at 11:50; Start 12/26/19 at 18:45 Cefazolin Sodium/ Dextrose 50 ml @ 100 mls/hr Q8HRS IV ; Start 12/27/19 at 11:00; Status Cancel Cefazolin Sodium/ Dextrose 50 ml @ 100 mls/hr Q8HRS IV Last administered on 12/28/19at 06:37; Start 12/27/19 at 12:00 Amino Acids/ Glycerin/ Electrolytes 1,000 ml @ 75 mls/hr [id number] IV Last admin istered on 12/28/19at 06:36; Start 12/27/19 at 11:30 Vancomycin HCl 1.25 gm/Sodium Chloride 250 ml @ 250 mls/hr Q8H IV Last admin istered on 12/28/19at 02:15; Start 12/28/19 at 02:00 Vancomycin HCl (Vancomycin Trough Level) 1 each 1X ONCE MC ; Start 12/29/19 at 09:30; Stop 12/29/19 at 09:31 Active Scripts Active [Tpn Per Pharmacy] 1 EACH Each 1 Each MC PRN DAILY PRN 30 Days Tpn Electrolytes Vial (Sodium/K+/Mag/Ca/Chlor/Acetate) 20 Ml Vial 20 Ml IV [id number] 30 Days Metoclopramide Hcl 5 Mg/1 Ml Vial 10 Mg IVP PRN Q6HRS PRN 14 Days [Pantoprazole Iv Push] 40 MG Vial 40 Mg IVP BIDAC 30 Days Ondansetron Hcl 4 Mg/2 Ml Vial (Ondansetron Hcl/Pf) 4 Mg/2 Ml Vial 4 Mg IVP PRN Q6HRS PRN 30 Days Prochlorperazine Edisylate 10 Mg/2 Ml Vial 10 Mg IV PRN Q6HRS PRN 14 Days Milk Of Magnesia (Magnesium Hydroxide) 400 Mg/5 Ml Oral.susp 2,400 Mg JT DAILY 30 Days Enemeez (Docusate Sodium) 283 Mg/5 Ml Enema 283 Mg SC PRN DAILY PRN 30 Days Bisacodyl 10 Mg Supp.rect 10 Mg SC PRN DAILY PRN 30 Days Nystatin 100,000 Unit/1 Ml Oral.susp 5 Ml SWSW [id number] 10 Days Hydrocodone-Apap 7.5-325/15 Soln (Hydrocodone Bit/Acetaminophen) 15 Ml So lution 15 Ml JT PRN Q6HRS PRN Reported Metoprolol Tartrate 50 Mg Tablet 1 Tab PO BID Advair Hfa 230-21 Mcg Inhaler (Fluticasone/Salmeterol) 12 Gm Hfa.aer.ad 1 Inh IH BID Dicyclomine Hcl 20 Mg Tablet 20 Mg GT PRN QID PRN Olopatadine HCl 5 Ml Drops 0.1 % OP PRN DAILY PRN Promethazine Hcl 12.5 Mg Tablet 25 Mg GT Q6H PRN Trazodone Hcl 50 Mg Tablet 50 Mg GT HS Coq-10 (Ubidecarenone) 100 Mg Capsule 200 Mg GT DAILY Vitamin D3 (Cholecalciferol (Vitamin D3)) 4,000 Unit Capsule 2,000 Unit PO HS Xyzal (Levocetirizine Dihydrochloride) 5 Mg Tablet 5 Mg GT HS Proair Hfa (Albuterol Sulfate) 8.5 Gm Hfa.aer.ad 2 Puff IH PRN Q4-6HRS PRN 21 Days Ipratropium [place] 30 Ml [place] 1 [place] NS DAILY Duoneb 0.5-3(2.5) Mg/3 Ml (Albuterol/Ipratropium) 3 Ml Ampul.neb 3 Ml NEB PRN QID PRN Montelukast Sodium Tablet (Montelukast Sodium) 10 Mg Tablet 10 Mg GT DAILY PRN Multi Vitamin Daily (Multivitamin) 1 Each Tablet 1 Each GT DAILY Vitals/I & O Vital Sign - Last 24 Hours 12/27/19 12/27/19 12/27/19 12/27/19 10:02 11:28 11:50 12:20 Temp 101.4 101.4 Pulse 84 Resp 18 18 17 17 B/P (MAP) 109/62 (78) Pulse Ox 96 O2 Delivery Room Air Room Air Room Air Room Air 12/27/19 12/27/19 12/27/19 12/27/19 15:00 16:05 16:43 19:00 Temp 98.7 98.0 98.7 98.0 Pulse 102 116 Resp 17 16 16 18 B/P (MAP) 88/49 (62) 119/67 (84) Pulse Ox 98 94 O2 Delivery Room Air Room Air Room Air Room Air 12/27/19 12/27/19 12/27/19 12/27/19 19:48 19:50 20:18 22:20 Resp 20 20 20 O2 Delivery Room Air Room Air Room Air Room Air 12/27/19 12/27/19 12/28/19 12/28/19 22:50 23:00 02:28 02:58 Temp 100.0 100.0 Pulse 117 Resp 20 18 20 20 B/P (MAP) 116/55 (75) Pulse Ox 95 O2 Delivery Room Air Room Air Room Air Room Air 12/28/19 12/28/19 12/28/19 12/28/19 03:00 06:36 07:00 07:06 Temp 99.4 99.7 99.4 99.7 Pulse 93 90 Resp 20 20 B/P (MAP) 106/49 (68) 91/49 (63) Pulse Ox 94 96 O2 Delivery Room Air Room Air Room Air Room Air Intake and Output 12/27/19 12/27/19 12/28/19 15:00 23:00 07:00 Intake Total 0 ml Balance 0 ml Justicifation of Admission Dx: Justifications for Admission: Justification of Admission Dx: Yes Sepsis: Bacteremia JEFFERSON XAVIER MD Dec 28, 2019 09:46
[2019-12-28] MEDS ORDERED: IOHEXOL 240 MG/ML 50ML VIAL. ONE (11:26)
[2019-12-28] MEDS ORDERED: fentaNYL PF VIAL 100 MCG/2 ML VIAL ONE (12:21)
[2019-12-28] MEDS ORDERED: MIDAZOLAM HCL/PF 2 MG/2 ML VIAL. ONE (12:21)
[2019-12-28] MEDS: PROCHLORPERAZINE 10 MG/2 ML VIAL. IM PRN (12:28)
--- NOTE | 2019-12-28 12:50 | PDOC ---
HANNAH VALLE CANDY FEEDER 12/28/19 1250: SURGICAL PROGRESS NOTE DATE: 12/28/19 TIME: 12:49 Subjective feeling better still with around g/j tube site Vital Signs Vital Signs Date Time Temp Pulse Resp B/P (MAP) Pulse Ox O2 Delivery O2 Flow Rate FiO2 12/28/19 12:35 94 Room Air 12/28/19 11:00 99.2 91 20 85/45 (58) 99.2 I&O Intake and Output 12/28/19 07:00 Intake Total 0 ml Balance 0 ml Intake Oral 0 ml # Voids 7 General: Alert, Oriented X3, Cooperative Abdomen: Soft, Other (g/j tube) Labs Laboratory Tests Test 12/26/19 14:45 12/27/19 06:15 12/27/19 10:25 12/27/19 10:35 White Blood Count 5.9 x10^3/uL (4.0-11.0) Red Blood Count 3.15 x10^6/uL (3.50-5.40) Hemoglobin 10.2 g/dL (12.0-15.5) Hematocrit 29.9 % (36.0-47.0) Mean Corpuscular Volume 95 fL (79-100) Mean Corpuscular Hemoglobin 32 pg (25-35) Mean Corpuscular Hemoglobin Concent 34 g/dL (31-37) Red Cell Distribution Width 13.4 % (11.5-14.5) Platelet Count 95 x10^3/uL (140-400) Neutrophils (%) (Auto) 86 % (31-73) Lymphocytes (%) (Auto) 6 % (24-48) Monocytes (%) (Auto) 8 % (0-9) Eosinophils (%) (Auto) 0 % (0-3) Basophils (%) (Auto) 0 % (0-3) Neutrophils # (Auto) 5.1 x10^3/uL (1.8-7.7) Lymphocytes # (Auto) 0.3 x10^3/uL (1.0-4.8) Monocytes # (Auto) 0.5 x10^3/uL (0.0-1.1) Eosinophils # (Auto) 0.0 x10^3/uL (0.0-0.7) Basophils # (Auto) 0.0 x10^3/uL (0.0-0.2) Segmented Neutrophils % 86 % (35-66) Band Neutrophils % 2 % (0-9) Lymphocytes % 6 % (24-48) Monocytes % 6 % (0-10) Toxic Granulation Slight Platelet Estimate Decreased (ADEQUATE) Prothrombin Time 15.4 SEC (11.7-14.0) Prothromb Time International Ratio 1.3 (0.8-1.1) Sodium Level 139 mmol/L (136-145) Potassium Level 3.6 mmol/L (3.5-5.1) Chloride Level 106 mmol/L (98-107) Carbon Dioxide Level 23 mmol/L (21-32) Anion Gap 10 (6-14) Blood Urea Nitrogen 14 mg/dL (7-20) Creatinine 0.6 mg/dL (0.6-1.0) Estimated GFR (Cockcroft-Gault) 126.2 BUN/Creatinine Ratio 23 (6-20) Glucose Level 101 mg/dL (70-99) Lactic Acid Level 1.1 mmol/L (0.4-2.0) Calcium Level 8.4 mg/dL (8.5-10.1) Total Bilirubin 0.9 mg/dL (0.2-1.0) Aspartate Amino Transf (AST/SGOT) 12 U/L (15-37) Alanine Aminotransferase (ALT/SGPT) 31 U/L (14-59) Alkaline Phosphatase 102 U/L (46-116) Total Protein 6.6 g/dL (6.4-8.2) Albumin 3.6 g/dL (3.4-5.0) Albumin/Globulin Ratio 1.2 (1.0-1.7) Coronavirus (PCR) Not detected (Not Detected) Urine Collection Type Unknown Urine Color Rashmi Urine Clarity Clear Urine pH 6.0 (<5.0-8.0) Urine Specific [place] 1.025 (1.000-1.030) Urine Protein Negative mg/dL (NEG-TRACE) Urine Glucose (UA) Negative mg/dL (NEG) Urine Ketones (Stick) 40 mg/dL (NEG) Urine Blood Negative (NEG) Urine Nitrite Negative (NEG) Urine Bilirubin Negative (NEG) Urine Urobilinogen Dipstick 1.0 mg/dL (0.2 mg/dL) Urine Leukocyte Esterase Negative (NEG) Urine RBC 0 /HPF (0-2) Urine WBC 1-4 /HPF (0-4) Urine Squamous Epithelial Cells Few /LPF Urine Bacteria 0 /HPF (0-FEW) Urine Mucus Marked /LPF SARS-CoV-2 Antigen (Rapid) Negative (NEGATIVE) Test 12/27/19 17:00 12/28/19 05:20 Vancomycin Level Trough 7.5 mcg/mL (10.0-20.0) Vancomycin Last Dose Date Unk Vancomycin Last Dose Time Unk White Blood Count 3.8 x10^3/uL (4.0-11.0) Red Blood Count 2.78 x10^6/uL (3.50-5.40) Hemoglobin 9.0 g/dL (12.0-15.5) Hematocrit 26.1 % (36.0-47.0) Mean Corpuscular Volume 94 fL (79-100) Mean Corpuscular Hemoglobin 32 pg (25-35) Mean Corpuscular Hemoglobin Concent 34 g/dL (31-37) Red Cell Distribution Width 13.3 % (11.5-14.5) Platelet Count 68 x10^3/uL (140-400) Neutrophils (%) (Auto) 71 % (31-73) Lymphocytes (%) (Auto) 21 % (24-48) Monocytes (%) (Auto) 8 % (0-9) Eosinophils (%) (Auto) 0 % (0-3) Basophils (%) (Auto) 0 % (0-3) Neutrophils # (Auto) 2.7 x10^3/uL (1.8-7.7) Lymphocytes # (Auto) 0.8 x10^3/uL (1.0-4.8) Monocytes # (Auto) 0.3 x10^3/uL (0.0-1.1) Eosinophils # (Auto) 0.0 x10^3/uL (0.0-0.7) Basophils # (Auto) 0.0 x10^3/uL (0.0-0.2) Sodium Level 138 mmol/L (136-145) Potassium Level 3.3 mmol/L (3.5-5.1) Chloride Level 107 mmol/L (98-107) Carbon Dioxide Level 22 mmol/L (21-32) Anion Gap 9 (6-14) Blood Urea Nitrogen 10 mg/dL (7-20) Creatinine 0.6 mg/dL (0.6-1.0) Estimated GFR (Cockcroft-Gault) 126.2 Glucose Level 80 mg/dL (70-99) Calcium Level 7.7 mg/dL (8.5-10.1) Laboratory Tests Test 12/27/19 17:00 12/28/19 05:20 Vancomycin Level Trough 7.5 mcg/mL (10.0-20.0) Vancomycin Last Dose Date Unk Vancomycin Last Dose Time Unk White Blood Count 3.8 x10^3/uL (4.0-11.0) Red Blood Count 2.78 x10^6/uL (3.50-5.40) Hemoglobin 9.0 g/dL (12.0-15.5) Hematocrit 26.1 % (36.0-47.0) Mean Corpuscular Volume 94 fL (79-100) Mean Corpuscular Hemoglobin 32 pg (25-35) Mean Corpuscular Hemoglobin Concent 34 g/dL (31-37) Red Cell Distribution Width 13.3 % (11.5-14.5) Platelet Count 68 x10^3/uL (140-400) Neutrophils (%) (Auto) 71 % (31-73) Lymphocytes (%) (Auto) 21 % (24-48) Monocytes (%) (Auto) 8 % (0-9) Eosinophils (%) (Auto) 0 % (0-3) Basophils (%) (Auto) 0 % (0-3) Neutrophils # (Auto) 2.7 x10^3/uL (1.8-7.7) Lymphocytes # (Auto) 0.8 x10^3/uL (1.0-4.8) Monocytes # (Auto) 0.3 x10^3/uL (0.0-1.1) Eosinophils # (Auto) 0.0 x10^3/uL (0.0-0.7) Basophils # (Auto) 0.0 x10^3/uL (0.0-0.2) Sodium Level 138 mmol/L (136-145) Potassium Level 3.3 mmol/L (3.5-5.1) Chloride Level 107 mmol/L (98-107) Carbon Dioxide Level 22 mmol/L (21-32) Anion Gap 9 (6-14) Blood Urea Nitrogen 10 mg/dL (7-20) Creatinine 0.6 mg/dL (0.6-1.0) Estimated GFR (Cockcroft-Gault) 126.2 Glucose Level 80 mg/dL (70-99) Calcium Level 7.7 mg/dL (8.5-10.1) Problem List Problems Medical Problems: (1) Fever Status: Acute (2) Infection due to Port-A-Cath Status: Acute Assessment/Plan will ask IR to change out tube Justicifation of Admission Dx: Justifications for Admission: Justification of Admission Dx: Yes Sepsis: Bacteremia TORIE MILLER MD 12/28/19 1256: SURGICAL PROGRESS NOTE Assessment/Plan Pt seen and examined. Agree with Ms. Valle's note Pt feels better with abx. Awaiting cultures to determine port salvage site looks clean HANNAH VALLE APRN Dec 28, 2019 12:50 TOREI MILLER MD Dec 28, 2019 12:56
[2019-12-28] MEDS ORDERED: LIDOCAINE WITH 8.4% SOD BICARB 3 ML DISP.SYRIN. ONE (12:54)
[2019-12-28 12:55] LABS: PROTHROMBIN TIME PATIENT 16.6 SEC (11.7-14.0)
[2019-12-28] MEDS ORDERED: IOHEXOL 240 MG/ML 50ML VIAL. IJ ONE (13:00)
[2019-12-28] MEDS ORDERED: MIDAZOLAM HCL/PF 2 MG/2 ML VIAL. IV ONE (13:00)
[2019-12-28] MEDS ORDERED: LIDOCAINE WITH 8.4% SOD BICARB 3 ML DISP.SYRIN. IJ ONE (13:00)
--- NOTE | 2019-12-28 13:06 | PDOC ---
MODERATE SEDATION ASSESSMENT RISKS/ALTERNATIVES Risks/Alternatives Risks and alternatives of this type of sedation and procedure discussed with: RISK/ALTERNATIVES: Patient H & P ON CHART H & P H & P on chart and reviewed for co-morbid conditions and appropriate labs. H&P ON CHART: Yes STATUS PREG STATUS ASSESSED: Yes MEDS/ALLERGIES REVIEWED Meds/Allergies Reviewed Medications and Allergies including time and route of recently administered narcotics and sedatives. MEDS/ALLERGIES REVIEWED: Yes ASA RATING ASA RATING: II AIRWAY ASSESSMENT Airway Assessment Airway patency, oral function limitations, presence of caps, crowns, dentures, partials, and ability to extend neck assessed. AIRWAY ASSESSMENT: Yes MALLAMPATI SCORE MALLAMPATI SCORE: II PRE-SEDATION ASSESSMENT PRE-SEDATION ASSESSMENT: Yes FILEMON SCOTT MD Dec 28, 2019 13:06
--- NOTE | 2019-12-28 13:08 | PDOC ---
BRIEF OPERATIVE NOTE Pre-Op Diagnosis G-tube causing pain Post-Op Diagnosis same Procedure Performed G-tube exchange and j-tube injection Surgeon Elias Anesthesia Type: Conscious Sedation Findings j-tube well positioned. G-tube causing skin compression ischemia. Replaced with new tube but recommend split 4x4 dressing beneath G-tube retention disk to reduct focal pressure on adjacent skin. FILEMON SCOTT MD Dec 28, 2019 13:08
[2019-12-28] MEDS ORDERED: fentaNYL PF VIAL 100 MCG/2 ML VIAL IV ONE (13:15)
[2019-12-28] MEDS: POTASSIUM CHLORIDE 20MEQ 100 ML IV SCH ×2 (13:53→18:41)
--- NOTE | 2019-12-28 14:06 | RAD ---
Procedure: Jejunostomy tube injection under fluoroscopy, gastrotomy tube exchange also under fluoroscopy. Clinical Indication: Adult female with indwelling gastrostomy tube and jejunostomy tubes. The gastrostomy tube causes discomfort. Sedation: Conscious sedation was administered with a total intraprocedural chrz-in-dnni time of 25 minutes. The patient was monitored by a qualified independent observer throughout the time of sedation. Please refer to the medical record for exact doses of medications utilized to achieve moderate sedation. Antibiotics: None Exposure: Kerma-Area Product: 3 Gycm2 Sterility: All elements of maximal sterile barrier technique including the use of a cap, mask, sterile gown, sterile gloves, large sterile sheet, appropriate hand hygiene, and 2% chlorhexidine for cutaneous antisepsis (or acceptable alternative antiseptic per current guidelines) were followed for this procedure. Consent: The procedure was explained in its entirety to the patient or the patients designated retail wireless sales representative by a member of the treatment team, including a discussion of the risks, benefits and commonly accepted alternatives to the procedure, as well as the expected consequences of no therapy whatsoever. Discussion of the risks included, but was not limited to, those that are most frequent and those that are rare but possibly severe or life-threatening, as well as the possibility of unforeseen complications. Technique and Findings: Following informed consent, the patient was prepped and draped in usual sterile fashion. Contrast was injected through the existing jejunostomy tube which was seen to be intraluminal and widely patent. This tube was then flushed and attention was turned to the gastrostomy tube. The skin was anesthetized with 1% lidocaine. The balloon was deflated, and the gastrostomy tube was removed over a stiff wire and a new 20 Uzbek gastrostomy tube was advanced over the wire. The retention balloon was inflated with sterile water and the gastrostomy tube was pulled taut against anterior abdominal wall. Contrast was injected confirming good position and function of this tube. 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 A split 4 x 4 was placed beneath the retention disc to further reduce pressure over the anterior abdominal wall. Complications: No immediate Impression: 1. Functional jejunostomy tube appropriately positioned and suitable for use. 2. Successful exchange of gastrostomy tube. The new tube is suitable for use. 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 Split 4 x 4 beneath the retention disc is recommended to reduce direct pressure.
[2019-12-29] MEDS: AMINO AC 3%/ELECTROLYTE/GLYCER 1,000 ML IV SCH ×2 (01:26→16:49)
[2019-12-29] MEDS: VANCOMYCIN 1.25 GM in IV NORMAL SALINE 250ML 250 ML IV SCH (02:00)
[2019-12-29] MEDS: fentaNYL PF VIAL 100 MCG/2 ML VIAL IVP PRN ×9 (02:06→23:23)
[2019-12-29 03:45] VITALS: BP 100/58
[2019-12-29] MEDS: ONDANSETRON PF 4 MG/2 ML VIAL. IVP PRN ×3 (05:54→17:59)
[2019-12-29 07:58] VITALS: BP 94/62
[2019-12-29 09:34] LABS: BASO % 0 % (0-3); EOS % 1 % (0-3); HEMATOCRIT 25.7 % (36.0-47.0); HEMOGLOBIN 8.9 g/dL (12.0-15.5); LYMPH # 0.9 x10^3/uL (1.0-4.8); LYMPH % 32 % (24-48); MEAN CORPUSCULAR HEMOGLOBIN 32 pg (25-35); MEAN CORPUSCULAR HGB CONC 34 g/dL (31-37); MEAN CORPUSCULAR VOLUME 94 fL (79-100); MONO # 0.3 x10^3/uL (0.0-1.1); MONO % 12 % (0-9); NEUT # 1.4 x10^3/uL (1.8-7.7); NEUT % 54 % (31-73); PLATELET COUNT 70 x10^3/uL (140-400); RED BLOOD COUNT 2.74 x10^6/uL (3.50-5.40); RED CELL DISTRIBUTION WIDTH 13.4 % (11.5-14.5); WHITE BLOOD COUNT 2.6 x10^3/uL (4.0-11.0)
[2019-12-29 09:42] LABS: CALCIUM 7.6 mg/dL (8.5-10.1); CREATININE 0.6 mg/dL (0.6-1.0); GFR 126.2; POTASSIUM 3.9 mmol/L (3.5-5.1)
--- NOTE | 2019-12-29 09:43 | PDOC ---
Infectious Disease Note Subjective Subjective Nauseous, no vomiting No fevers/chills last 24 hours ROS ROS Denies SOA/cough Vital Sign Vital Signs Vital Signs Date Time Temp Pulse Resp B/P (MAP) Pulse Ox O2 Delivery O2 Flow Rate FiO2 12/29/19 07:58 98.2 80 20 94/62 (73) 97 Room Air 98.2 Physical Exam PHYSICAL EXAM GENERAL: Propped up in bed, alert in NAD HEENT: [place]. Oral cavity pink, dry. + bacterial overgrowth on the tongue NECK: Supple LUNGS: Clear. HEART: S1, S2 regular. ABDOMEN: Bowel sounds present, soft and nontender. J-tube clean EXTREMITIES: No edema or cyanosis. SKIN: without rash. NEUROLOGICAL: Alert, awake and appropriate. No focal neurologic deficit. Right-sided Port-A-Cath site -some faint redness present and tender. Labs Lab Laboratory Tests Test 12/28/19 12:25 Prothrombin Time 16.6 SEC (11.7-14.0) Prothromb Time International Ratio 1.4 (0.8-1.1) Activated Partial Thromboplast Time 35 SEC (24-38) Fibrinogen 350 mg/dL (200-440) Micro 12/25. BLOOD CULTURE LC Preliminary Preliminary GROWTH OF GRAM POSITIVE COCCI on 12/28/19 at 0933 FINAL ID= [STAPHYLOCOCCUS AUREUS] STAPHYLOCOCCUS AUREUS Objective Assessment Fever - better Pancytopenia Staphylococcus aureus bacteremia from 12/25, 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 Some redness and tenderness at the Port-A-Cath site. Recently placed on 11/25. Gastroparesis, on total parenteral nutrition at home. s/p G-tube exchange and j-tube injection, 12/27 Plan Plan of Care Susceptibilities still pending Continue vancomycin and Cefazolin Monitor renal function closely Repeat CBC and BC in am. Echo r/o vegatation Maintain aspiration precautions Discussed with nursing Attending Co-Sign The patient was seen and interviewed as well as examined at the bedside. The chart was reviewed. The case was discussed. Agree with the plan of care. MRSA + , d/c cefazolin ISAIAS ELI APRN Dec 29, 2019 09:43 ISAAC RODRIGUEZ MD Dec 29, 2019 12:36
[2019-12-29 09:48] LABS: VANC TR 9.9 mcg/mL (10.0-20.0)
[2019-12-29] MEDS ORDERED: VANCOMYCIN 1.25 GM in IV NORMAL SALINE 250ML 250 ML IV SCH ×2 (10:00→10:08)
[2019-12-29] MEDS: VANCOMYCIN PER PHARMACY MC PRN ×3 (10:14→12:34)
--- NOTE | 2019-12-29 10:16 | NUR ---
Pharmacy Vancomycin Dosing Note S: Consulted to monitor and dose vancomycin started 12/26/19. O: SUNITHA SCHULTZ is a 19 year old F with Sepsis, Infection of catheter site. Other Antibiotics: CEFAZOLIN LABS: Last BUN: 8 Last Creatinine: 0.6 Creatinine Clearance: 182 mL/min Last WBC: 2.6 Tmax (past 24 hours): 98.2 Drug Levels: Last Trough level: 9.9 on 12/29/19 at 0920 Last dose given 12/29/19 at 0200 Vancomycin Dosing: Dosing Weight: Actual Target Trough: 15-20 A: Based on: REPEAT SUBTHERAPEUTIC TROUGH P: 1. Change Vancomycin 1250 mg IV q6h 2. Follow up Trough level in 5-7 days 3. Pharmacy will continue to monitor, follow and adjust therapy as needed. SHAQUILLE LOWRY RPH, 12/29/19 1016
--- NOTE | 2019-12-29 10:47 | PDOC ---
PROGRESS NOTES Date of Service: DATE: 12/29/19 TIME: 10:47 Chief Complaint Chief Complaint IMPRESSION === Sepsis 3/4 blood culture bottles positive for gram + cocci in clusters Bicytopenia Hypotension Severe idiopathic gastroparesis Blood culture positive with Staphylococcus, 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 D/W FAMILY IN ROOM 38 MIN PT EXAM, CHART REVIEW, > 50% OF TIME SPENT WITH EXAM, CHART REVIEW, PT CARE COORDINATION History of Present Illness History of Present Illness 12/27/2019 Patient seen and examined Appears acutely ill Laying in bed in moderate distress Complains of fevers, chills, pain at site of port-a-cath Chart reviewed Discussed with RN Vitals Vitals Vital Signs Date Time Temp Pulse Resp B/P (MAP) Pulse Ox O2 Delivery O2 Flow Rate FiO2 12/29/19 09:45 20 Room Air 12/29/19 07:58 98.2 80 94/62 (73) 97 98.2 Physical Exam Physical Exam GENERAL: Propped up in bed, alert in NAD HEENT: [place]. Oral cavity pink, dry. + bacterial overgrowth on the tongue NECK: Supple LUNGS: Clear. HEART: S1, S2 regular. ABDOMEN: Bowel sounds present, soft and nontender. J-tube clean EXTREMITIES: No edema or cyanosis. SKIN: without rash. NEUROLOGICAL: Alert, awake and appropriate. No focal neurologic deficit. Right-sided Port-A-Cath site -some faint redness present and tender. General: Alert, Oriented X3, Cooperative Heart: Regular rate, Normal S1, Normal S2 Lungs: Clear Abdomen: Soft, Other (g/j tube) Extremities: No clubbing, No cyanosis Skin: Other (erythema to port site ) Labs LABS Laboratory Tests Test 12/28/19 12:25 12/29/19 09:20 Prothrombin Time 16.6 SEC (11.7-14.0) Prothromb Time International Ratio 1.4 (0.8-1.1) Activated Partial Thromboplast Time 35 SEC (24-38) Fibrinogen 350 mg/dL (200-440) White Blood Count 2.6 x10^3/uL (4.0-11.0) Red Blood Count 2.74 x10^6/uL (3.50-5.40) Hemoglobin 8.9 g/dL (12.0-15.5) Hematocrit 25.7 % (36.0-47.0) Mean Corpuscular Volume 94 fL (79-100) Mean Corpuscular Hemoglobin 32 pg (25-35) Mean Corpuscular Hemoglobin Concent 34 g/dL (31-37) Red Cell Distribution Width 13.4 % (11.5-14.5) Platelet Count 70 x10^3/uL (140-400) Neutrophils (%) (Auto) 54 % (31-73) Lymphocytes (%) (Auto) 32 % (24-48) Monocytes (%) (Auto) 12 % (0-9) Eosinophils (%) (Auto) 1 % (0-3) Basophils (%) (Auto) 0 % (0-3) Neutrophils # (Auto) 1.4 x10^3/uL (1.8-7.7) Lymphocytes # (Auto) 0.9 x10^3/uL (1.0-4.8) Monocytes # (Auto) 0.3 x10^3/uL (0.0-1.1) Eosinophils # (Auto) 0.0 x10^3/uL (0.0-0.7) Basophils # (Auto) 0.0 x10^3/uL (0.0-0.2) Sodium Level 142 mmol/L (136-145) Potassium Level 3.9 mmol/L (3.5-5.1) Chloride Level 107 mmol/L (98-107) Carbon Dioxide Level 25 mmol/L (21-32) Anion Gap 10 (6-14) Blood Urea Nitrogen 8 mg/dL (7-20) Creatinine 0.6 mg/dL (0.6-1.0) Estimated GFR (Cockcroft-Gault) 126.2 Glucose Level 85 mg/dL (70-99) Calcium Level 7.6 mg/dL (8.5-10.1) Vancomycin Level Trough 9.9 mcg/mL (10.0-20.0) Vancomycin Last Dose Date 12/29/19 Vancomycin Last Dose Time 0200 Assessment and Plan Assessmemt and Plan Problems Medical Problems: (1) Fever Status: Acute (2) Infection due to Port-A-Cath Status: Acute Comment Review of Relevant I have reviewed the following items lalo (where applicable) has been applied. Labs Laboratory Tests Test 12/27/19 17:00 12/28/19 05:20 12/28/19 12:25 12/29/19 09:20 Vancomycin Level Trough 7.5 mcg/mL (10.0-20.0) 9.9 mcg/mL (10.0-20.0) Vancomycin Last Dose Date Unk 12/29/19 Vancomycin Last Dose Time Unk 0200 White Blood Count 3.8 x10^3/uL (4.0-11.0) 2.6 x10^3/uL (4.0-11.0) Red Blood Count 2.78 x10^6/uL (3.50-5.40) 2.74 x10^6/uL (3.50-5.40) Hemoglobin 9.0 g/dL (12.0-15.5) 8.9 g/dL (12.0-15.5) Hematocrit 26.1 % (36.0-47.0) 25.7 % (36.0-47.0) Mean Corpuscular Volume 94 fL (79-100) 94 fL (79-100) Mean Corpuscular Hemoglobin 32 pg (25-35) 32 pg (25-35) Mean Corpuscular Hemoglobin Concent 34 g/dL (31-37) 34 g/dL (31-37) Red Cell Distribution Width 13.3 % (11.5-14.5) 13.4 % (11.5-14.5) Platelet Count 68 x10^3/uL (140-400) 70 x10^3/uL (140-400) Neutrophils (%) (Auto) 71 % (31-73) 54 % (31-73) Lymphocytes (%) (Auto) 21 % (24-48) 32 % (24-48) Monocytes (%) (Auto) 8 % (0-9) 12 % (0-9) Eosinophils (%) (Auto) 0 % (0-3) 1 % (0-3) Basophils (%) (Auto) 0 % (0-3) 0 % (0-3) Neutrophils # (Auto) 2.7 x10^3/uL (1.8-7.7) 1.4 x10^3/uL (1.8-7.7) Lymphocytes # (Auto) 0.8 x10^3/uL (1.0-4.8) 0.9 x10^3/uL (1.0-4.8) Monocytes # (Auto) 0.3 x10^3/uL (0.0-1.1) 0.3 x10^3/uL (0.0-1.1) Eosinophils # (Auto) 0.0 x10^3/uL (0.0-0.7) 0.0 x10^3/uL (0.0-0.7) Basophils # (Auto) 0.0 x10^3/uL (0.0-0.2) 0.0 x10^3/uL (0.0-0.2) Sodium Level 138 mmol/L (136-145) 142 mmol/L (136-145) Potassium Level 3.3 mmol/L (3.5-5.1) 3.9 mmol/L (3.5-5.1) Chloride Level 107 mmol/L (98-107) 107 mmol/L (98-107) Carbon Dioxide Level 22 mmol/L (21-32) 25 mmol/L (21-32) Anion Gap 9 (6-14) 10 (6-14) Blood Urea Nitrogen 10 mg/dL (7-20) 8 mg/dL (7-20) Creatinine 0.6 mg/dL (0.6-1.0) 0.6 mg/dL (0.6-1.0) Estimated GFR (Cockcroft-Gault) 126.2 126.2 Glucose Level 80 mg/dL (70-99) 85 mg/dL (70-99) Calcium Level 7.7 mg/dL (8.5-10.1) 7.6 mg/dL (8.5-10.1) Prothrombin Time 16.6 SEC (11.7-14.0) Prothromb Time International Ratio 1.4 (0.8-1.1) Activated Partial Thromboplast Time 35 SEC (24-38) Fibrinogen 350 mg/dL (200-440) Laboratory Tests Test 12/28/19 12:25 12/29/19 09:20 Prothrombin Time 16.6 SEC (11.7-14.0) Prothromb Time International Ratio 1.4 (0.8-1.1) Activated Partial Thromboplast Time 35 SEC (24-38) Fibrinogen 350 mg/dL (200-440) White Blood Count 2.6 x10^3/uL (4.0-11.0) Red Blood Count 2.74 x10^6/uL (3.50-5.40) Hemoglobin 8.9 g/dL (12.0-15.5) Hematocrit 25.7 % (36.0-47.0) Mean Corpuscular Volume 94 fL (79-100) Mean Corpuscular Hemoglobin 32 pg (25-35) Mean Corpuscular Hemoglobin Concent 34 g/dL (31-37) Red Cell Distribution Width 13.4 % (11.5-14.5) Platelet Count 70 x10^3/uL (140-400) Neutrophils (%) (Auto) 54 % (31-73) Lymphocytes (%) (Auto) 32 % (24-48) Monocytes (%) (Auto) 12 % (0-9) Eosinophils (%) (Auto) 1 % (0-3) Basophils (%) (Auto) 0 % (0-3) Neutrophils # (Auto) 1.4 x10^3/uL (1.8-7.7) Lymphocytes # (Auto) 0.9 x10^3/uL (1.0-4.8) Monocytes # (Auto) 0.3 x10^3/uL (0.0-1.1) Eosinophils # (Auto) 0.0 x10^3/uL (0.0-0.7) Basophils # (Auto) 0.0 x10^3/uL (0.0-0.2) Sodium Level 142 mmol/L (136-145) Potassium Level 3.9 mmol/L (3.5-5.1) Chloride Level 107 mmol/L (98-107) Carbon Dioxide Level 25 mmol/L (21-32) Anion Gap 10 (6-14) Blood Urea Nitrogen 8 mg/dL (7-20) Creatinine 0.6 mg/dL (0.6-1.0) Estimated GFR (Cockcroft-Gault) 126.2 Glucose Level 85 mg/dL (70-99) Calcium Level 7.6 mg/dL (8.5-10.1) Vancomycin Level Trough 9.9 mcg/mL (10.0-20.0) Vancomycin Last Dose Date 12/29/19 Vancomycin Last Dose Time 0200 Microbiology 12/26/19 Blood Culture - Final, Complete Medications Current Medications Sodium Chloride 1,000 ml @ 1,000 mls/hr Q1H IV Last administered on 12/26/19 14:52; Start 12/26/19 at 14:44; Stop 12/26/19 at 15:43; Status DC Acetaminophen (Tylenol) 1,000 mg 1X ONCE PO Last administered on 12/26/19 14:52; Start 12/26/19 at 14:45; Stop 12/26/19 at 14:52; Status DC Fentanyl Citrate (Fentanyl 2ml Vial) 50 mcg 1X ONCE IVP Last administered on 12/26/19at 14:51; Start 12/26/19 at 14:45; Stop 12/26/19 at 14:52; Status DC Sodium Chloride 1,000 ml @ 1,000 mls/hr 1X ONCE IV Last administered on 12/26/19 16:16; Start 12/26/19 at 15:30; Stop 12/26/19 at 16:29; Status DC Piperacillin Sod/ Tazobactam Sod 3.375 gm/Sodium Chloride 50 ml @ 100 mls/hr 1X ONCE IV Last administered on 12/26/19at 16:15; Start 12/26/19 at 16:15; Stop 12/27/19 at 10:20; Status DC Diphenhydramine HCl (Benadryl) 25 mg 1X ONCE IVP Last administered on 12/26/19 16:16; Start 12/26/19 at 16:15; Stop 12/26/19 at 16:16; Status DC Vancomycin HCl (Vanco Per Pharmacy) 1 each PRN DAILY PRN MC SEE COMMENTS Last administered on 12/29/19at 10:14; Start 12/26/19 at 16:15 Vancomycin HCl 1.75 gm/Sodium Chloride 500 ml @ 250 mls/hr 1X ONCE IV Last administered on 12/26/19at 16:59; Start 12/26/19 at 17:00; Stop 12/26/19 at 18:59; Status DC Fentanyl Citrate (Fentanyl 2ml Vial) 50 mcg 1X ONCE IVP Last administered on 12/26/19at 16:59; Start 12/26/19 at 16:45; Stop 12/26/19 at 16:46; Status DC Vancomycin HCl 1 gm/Sodium Chloride 250 ml @ 250 mls/hr Q8H IV Last admin istered on 12/27/19 18:09; Start 12/27/19 at 01:00; Stop 12/27/19 at 20:25; Status DC Vancomycin HCl (Vancomycin Trough Level) 1 each 1X ONCE MC Last administered on 12/27/19 16:30; Start 12/27/19 at 16:30; Stop 12/27/19 at 16:31; Status DC Fentanyl Citrate (Fentanyl 2ml Vial) 50 mcg PRN Q2HR PRN IVP PAIN Last administered on 12/29/19 09:45; Start 12/26/19 at 18:45 Ondansetron HCl (Zofran) 4 mg PRN Q6HRS PRN IVP NAUSEA/VOMITING Last administered on 12/29/19 05:54; Start 12/26/19 at 18:45 Prochlorperazine Edisylate (Compazine) 10 mg PRN Q8HRS PRN IM NAUSEA/VOMITING Last administered on 12/28/19 12:28; Start 12/26/19 at 18:45 Acetaminophen (Tylenol) 650 mg PRN Q6HRS PRN PEG MILD PAIN / TEMP > 100.3'F Last administered on 12/27/19at 11:50; Start 12/26/19 at 18:45 Cefazolin Sodium/ Dextrose 50 ml @ 100 mls/hr Q8HRS IV ; Start 12/27/19 at 11:00; Status Cancel Cefazolin Sodium/ Dextrose 50 ml @ 100 mls/hr Q8HRS IV Last administered on 12/29/19 05:55; Start 12/27/19 at 12:00 Amino Acids/ Glycerin/ Electrolytes 1,000 ml @ 75 mls/hr [id number] IV Last administered on 12/29/19 01:26; Start 12/27/19 at 11:30 Vancomycin HCl 1.25 gm/Sodium Chloride 250 ml @ 250 mls/hr Q8H IV Last administered on 12/29/19 02:00; Start 12/28/19 at 02:00; Stop 12/29/19 at 10:05; Status DC Vancomycin HCl (Vancomycin Trough Level) 1 each 1X ONCE MC Last administered on 12/29/19 09:30; Start 12/29/19 at 09:30; Stop 12/29/19 at 09:31; Status DC Iohexol (Omnipaque 240 Mg/ml) 50 ml STK-MED ONCE .ROUTE ; Start 12/28/19 at 11:26; Stop 12/28/19 at 11:26; Status DC Midazolam HCl (Versed) 2 mg STK-MED ONCE .ROUTE ; Start 12/28/19 at 12:21; Stop 12/28/19 at 12:22; Status DC Fentanyl Citrate (Fentanyl 2ml Vial) 100 mcg STK-MED ONCE .ROUTE ; Start 12/28/19 at 12:21; Stop 12/28/19 at 12:22; Status DC Potassium Chloride/Water 100 ml @ 100 mls/hr Q1H IV Last administered on 12/28/19at 18:41; Start 12/28/19 at 13:00; Stop 12/28/19 at 14:59; Status DC Lidocaine HCl (Buffered Lidocaine 1%) 3 ml 1X ONCE IJ Last administered on 12/28/19at 12:50; Start 12/28/19 at 13:00; Stop 12/28/19 at 13:01; Status DC Midazolam HCl (Versed) 2 mg 1X ONCE IV Last administered on 12/28/19at 12:45; Start 12/28/19 at 13:00; Stop 12/28/19 at 13:01; Status DC Iohexol (Omnipaque 240 Mg/ml) 50 ml 1X ONCE IJ Last administered on 12/28/19at 12:52; Start 12/28/19 at 13:00; Stop 12/28/19 at 13:01; Status DC Lidocaine HCl (Buffered Lidocaine 1%) 3 ml STK-MED ONCE .ROUTE ; Start 12/28/19 at 12:54; Stop 12/28/19 at 12:55; Status DC Fentanyl Citrate (Fentanyl 2ml Vial) 100 mcg 1X ONCE IV Last administered on 12/28/19at 12:50; Start 12/28/19 at 13:15; Stop 12/28/19 at 13:16; Status DC Vancomycin HCl 1.25 gm/Sodium Chloride 250 ml @ 250 mls/hr Q6H IV ; Start 12/29/19 at 10:00; Status Cancel Vancomycin HCl 1.25 gm/Sodium Chloride 250 ml @ 250 mls/hr Q6H IV ; Start 12/29/19 at 10:08; Status Cancel Vancomycin HCl 1.25 gm/Sodium Chloride 250 ml @ 250 mls/hr Q6H IV ; Start 12/29/19 at 10:00 Active Scripts Active [Tpn Per Pharmacy] 1 EACH Each 1 Each MC PRN DAILY PRN 30 Days Tpn Electrolytes Vial (Sodium/K+/Mag/Ca/Chlor/Acetate) 20 Ml Vial 20 Ml IV DAILY06 30 Days Metoclopramide Hcl 5 Mg/1 Ml Vial 10 Mg IVP PRN Q6HRS PRN 14 Days [Pantoprazole Iv Push] 40 MG Vial 40 Mg IVP BIDAC 30 Days Ondansetron Hcl 4 Mg/2 Ml Vial (Ondansetron Hcl/Pf) 4 Mg/2 Ml Vial 4 Mg IVP PRN Q6HRS PRN 30 Days Prochlorperazine Edisylate 10 Mg/2 Ml Vial 10 Mg IV PRN Q6HRS PRN 14 Days Milk Of Magnesia (Magnesium Hydroxide) 400 Mg/5 Ml Oral.susp 2,400 Mg JT DAILY 30 Days Enemeez (Docusate Sodium) 283 Mg/5 Ml Enema 283 Mg AL PRN DAILY PRN 30 Days Bisacodyl 10 Mg Supp.rect 10 Mg AL PRN DAILY PRN 30 Days Nystatin 100,000 Unit/1 Ml Oral.susp 5 Ml SWSW [id number] 10 Days Hydrocodone-Apap 7.5-325/15 Soln (Hydrocodone Bit/Acetaminophen) 15 Ml Solution 15 Ml JT PRN Q6HRS PRN Reported Metoprolol Tartrate 50 Mg Tablet 1 Tab PO BID Advair Hfa 230-21 Mcg Inhaler (Fluticasone/Salmeterol) 12 Gm Hfa.aer.ad 1 Inh IH BID Dicyclomine Hcl 20 Mg Tablet 20 Mg GT PRN QID PRN Olopatadine HCl 5 Ml Drops 0.1 % OP PRN DAILY PRN Promethazine Hcl 12.5 Mg Tablet 25 Mg GT Q6H PRN Trazodone Hcl 50 Mg Tablet 50 Mg GT HS Coq-10 (Ubidecarenone) 100 Mg Capsule 200 Mg GT DAILY Vitamin D3 (Cholecalciferol (Vitamin D3)) 4,000 Unit Capsule 2,000 Unit PO HS Xyzal (Levocetirizine Dihydrochloride) 5 Mg Tablet 5 Mg GT HS Proair Hfa (Albuterol Sulfate) 8.5 Gm Hfa.aer.ad 2 Puff IH PRN Q4-6HRS PRN 21 Days Ipratropium [place] 30 Ml [place] 1 [place] NS DAILY Duoneb 0.5-3(2.5) Mg/3 Ml (Albuterol/Ipratropium) 3 Ml Ampul.neb 3 Ml NEB PRN QID PRN Montelukast Sodium Tablet (Montelukast Sodium) 10 Mg Tablet 10 Mg GT DAILY PRN Multi Vitamin Daily (Multivitamin) 1 Each Tablet 1 Each GT DAILY Vitals/I & O Vital Sign - Last 24 Hours 12/28/19 12/28/19 12/28/19 12/28/19 11:00 12:28 12:35 12:50 Temp 99.2 99.2 Pulse 91 Resp 20 14 B/P (MAP) 85/45 (58) Pulse Ox 94 94 94 O2 Delivery Room Air Room Air Room Air 12/28/19 12/28/19 12/28/19 12/28/19 13:09 13:45 14:00 14:02 Pulse 83 82 88 Resp 14 B/P (MAP) 92/52 (65) 97/58 (71) Pulse Ox 98 97 97 98 O2 Delivery Room Air Room Air Room Air Room Air 12/28/19 12/28/19 12/28/19 12/28/19 14:15 14:30 15:00 15:30 Pulse 85 87 79 87 B/P (MAP) 97/55 (69) 101/43 (62) 101/59 (73) 99/58 (72) Pulse Ox 97 97 99 99 O2 Delivery Room Air Room Air Room Air Room Air 12/28/19 12/28/19 12/28/19 12/28/19 15:38 16:44 17:31 19:15 Resp 20 Pulse Ox 97 97 97 O2 Delivery Room Air Room Air Room Air Room Air 12/28/19 12/28/19 12/28/19 12/28/19 19:35 19:35 19:45 21:18 Temp 98.6 98.6 Pulse 87 Resp 16 20 20 B/P (MAP) 102/57 (72) Pulse Ox 94 O2 Delivery Room Air Room Air Room Air Room Air 12/28/19 12/28/19 12/28/19 12/28/19 21:48 23:27 23:28 23:59 Temp 99.3 99.3 Pulse 90 Resp B/P (MAP) 103/68 (80) Pulse Ox 96 O2 Delivery Room Air Room Air Room Air Room Air 12/29/19 12/29/19 12/29/19 12/29/19 02:06 02:36 03:45 05:55 Temp 98.6 98.6 Pulse 87 Resp B/P (MAP) 100/58 (72) Pulse Ox 97 O2 Delivery Room Air Room Air Room Air Room Air 12/29/19 12/29/19 12/29/19 06:29 07:58 09:45 Temp 98.2 98.2 Pulse 80 Resp B/P (MAP) 94/62 (73) Pulse Ox 97 O2 Delivery Room Air Room Air Room Air Intake and Output 12/28/19 12/28/19 12/29/19 15:00 23:00 07:00 Intake Total 2040 ml Output Total 300 ml 400 ml Balance -300 ml 1640 ml Justicifation of Admission Dx: Justifications for Admission: Justification of Admission Dx: Yes Sepsis: Bacteremia JEFFERSON XAVIER MD Dec 29, 2019 10:47
[2019-12-29 10:54] VITALS: BP 95/63
--- NOTE | 2019-12-29 12:35 | NUR ---
Pharmacy Vancomycin Dosing Note S:Consulted to monitor and dose vancomycin started 12/26/19. O:SUNITHA SCHULTZ is a 19 year old F with Bacteremia Sepsis MRSA BACTEREMIA . Height: 5 feet, 7 inches Weight: 73.186558 kg [place] Body Weight: 61.60 Adjusted Body Weight: 66.56 Dosing Weight: Actual Other Antibiotics: CEFAZOLIN LABS: Last BUN: 8 Last Creatinine: 0.6 Creatinine Clearance: 182 mL/min Last WBC: 2.6 Last Procalcitonin: Tmax (past 24 hours): 98.2 Microbiology: I/O: 0/ Drug Levels: Last Trough level: 9.9 on 12/29/19 at 0920 Last dose given 12/29/19 at 1100 Vancomycin Dosing: Loading Dose: 1750 mg x1 Dosing Weight: Actual Target Trough: 15-20 A: Based on: MRSA BACTEREMIA, LOW TROUGH, P: 1. CHANGE DOSING TO Vancomycin 1750 mg IV q8h 2. Follow up Trough level on 12/30/19 at 1830 3. Pharmacy will continue to monitor, follow and adjust therapy as needed. YUNIEL BRIZUELA RPH, 12/29/19 1099
[2019-12-29] MEDS: DAPTOmycin (GENERIC) IVPB 440 MG in IV NORMAL SALINE 50ML 50 ML IV SCH (14:28)
[2019-12-29] MEDS: PROCHLORPERAZINE 10 MG/2 ML VIAL. IM PRN (14:29)
[2019-12-29] MEDS: PROCHLORPERAZINE 10 MG/2 ML VIAL. IVP PRN (14:56)
[2019-12-29 15:42] VITALS: BP 110/66
--- NOTE | 2019-12-29 16:27 | PDOC ---
SURGICAL PROGRESS NOTE DATE: 12/29/19 TIME: 16:27 Subjective g tube feels better Vital Signs Vital Signs Date Time Temp Pulse Resp B/P (MAP) Pulse Ox O2 Delivery O2 Flow Rate FiO2 12/29/19 15:42 98.8 77 18 110/66 (81) 98 Room Air 98.8 I&O Intake and Output 12/29/19 07:00 Intake Total 2040 ml Output Total 700 ml Balance 1340 ml Intake Oral 240 ml IV Total 900 ml Other 900 ml Output Urine Total 700 ml Stool Total 0 ml # Voids 3 # Bowel Movements 1 General: Alert, Oriented X3, Cooperative Abdomen: Soft, Other (g/j tubes in place) Labs Laboratory Tests Test 12/27/19 17:00 12/28/19 05:20 12/28/19 12:25 12/29/19 09:20 Vancomycin Level Trough 7.5 mcg/mL (10.0-20.0) 9.9 mcg/mL (10.0-20.0) Vancomycin Last Dose Date Unk 12/29/19 Vancomycin Last Dose Time Unk 0200 White Blood Count 3.8 x10^3/uL (4.0-11.0) 2.6 x10^3/uL (4.0-11.0) Red Blood Count 2.78 x10^6/uL (3.50-5.40) 2.74 x10^6/uL (3.50-5.40) Hemoglobin 9.0 g/dL (12.0-15.5) 8.9 g/dL (12.0-15.5) Hematocrit 26.1 % (36.0-47.0) 25.7 % (36.0-47.0) Mean Corpuscular Volume 94 fL (79-100) 94 fL (79-100) Mean Corpuscular Hemoglobin 32 pg (25-35) 32 pg (25-35) Mean Corpuscular Hemoglobin Concent 34 g/dL (31-37) 34 g/dL (31-37) Red Cell Distribution Width 13.3 % (11.5-14.5) 13.4 % (11.5-14.5) Platelet Count 68 x10^3/uL (140-400) 70 x10^3/uL (140-400) Neutrophils (%) (Auto) 71 % (31-73) 54 % (31-73) Lymphocytes (%) (Auto) 21 % (24-48) 32 % (24-48) Monocytes (%) (Auto) 8 % (0-9) 12 % (0-9) Eosinophils (%) (Auto) 0 % (0-3) 1 % (0-3) Basophils (%) (Auto) 0 % (0-3) 0 % (0-3) Neutrophils # (Auto) 2.7 x10^3/uL (1.8-7.7) 1.4 x10^3/uL (1.8-7.7) Lymphocytes # (Auto) 0.8 x10^3/uL (1.0-4.8) 0.9 x10^3/uL (1.0-4.8) Monocytes # (Auto) 0.3 x10^3/uL (0.0-1.1) 0.3 x10^3/uL (0.0-1.1) Eosinophils # (Auto) 0.0 x10^3/uL (0.0-0.7) 0.0 x10^3/uL (0.0-0.7) Basophils # (Auto) 0.0 x10^3/uL (0.0-0.2) 0.0 x10^3/uL (0.0-0.2) Sodium Level 138 mmol/L (136-145) 142 mmol/L (136-145) Potassium Level 3.3 mmol/L (3.5-5.1) 3.9 mmol/L (3.5-5.1) Chloride Level 107 mmol/L (98-107) 107 mmol/L (98-107) Carbon Dioxide Level 22 mmol/L (21-32) 25 mmol/L (21-32) Anion Gap 9 (6-14) 10 (6-14) Blood Urea Nitrogen 10 mg/dL (7-20) 8 mg/dL (7-20) Creatinine 0.6 mg/dL (0.6-1.0) 0.6 mg/dL (0.6-1.0) Estimated GFR (Cockcroft-Gault) 126.2 126.2 Glucose Level 80 mg/dL (70-99) 85 mg/dL (70-99) Calcium Level 7.7 mg/dL (8.5-10.1) 7.6 mg/dL (8.5-10.1) Prothrombin Time 16.6 SEC (11.7-14.0) Prothromb Time International Ratio 1.4 (0.8-1.1) Activated Partial Thromboplast Time 35 SEC (24-38) Fibrinogen 350 mg/dL (200-440) Laboratory Tests Test 12/29/19 09:20 White Blood Count 2.6 x10^3/uL (4.0-11.0) Red Blood Count 2.74 x10^6/uL (3.50-5.40) Hemoglobin 8.9 g/dL (12.0-15.5) Hematocrit 25.7 % (36.0-47.0) Mean Corpuscular Volume 94 fL (79-100) Mean Corpuscular Hemoglobin 32 pg (25-35) Mean Corpuscular Hemoglobin Concent 34 g/dL (31-37) Red Cell Distribution Width 13.4 % (11.5-14.5) Platelet Count 70 x10^3/uL (140-400) Neutrophils (%) (Auto) 54 % (31-73) Lymphocytes (%) (Auto) 32 % (24-48) Monocytes (%) (Auto) 12 % (0-9) Eosinophils (%) (Auto) 1 % (0-3) Basophils (%) (Auto) 0 % (0-3) Neutrophils # (Auto) 1.4 x10^3/uL (1.8-7.7) Lymphocytes # (Auto) 0.9 x10^3/uL (1.0-4.8) Monocytes # (Auto) 0.3 x10^3/uL (0.0-1.1) Eosinophils # (Auto) 0.0 x10^3/uL (0.0-0.7) Basophils # (Auto) 0.0 x10^3/uL (0.0-0.2) Sodium Level 142 mmol/L (136-145) Potassium Level 3.9 mmol/L (3.5-5.1) Chloride Level 107 mmol/L (98-107) Carbon Dioxide Level 25 mmol/L (21-32) Anion Gap 10 (6-14) Blood Urea Nitrogen 8 mg/dL (7-20) Creatinine 0.6 mg/dL (0.6-1.0) Estimated GFR (Cockcroft-Gault) 126.2 Glucose Level 85 mg/dL (70-99) Calcium Level 7.6 mg/dL (8.5-10.1) Vancomycin Level Trough 9.9 mcg/mL (10.0-20.0) Vancomycin Last Dose Date 12/29/19 Vancomycin Last Dose Time 0200 Problem List Problems Medical Problems: (1) Fever Status: Acute (2) Infection due to Port-A-Cath Status: Acute Assessment/Plan as per ID no further surgical recs will FU tuesday Justicifation of Admission Dx: Justifications for Admission: Justification of Admission Dx: Yes Sepsis: Bacteremia HANNAH VALLE APRN Dec 29, 2019 16:27
[2019-12-29] MEDS ORDERED: VANCOMYCIN 1.75 GM in IV NORMAL SALINE 500ML BAG 500 ML IV SCH (19:00)
[2019-12-29 19:27] VITALS: BP 104/64
[2019-12-29 23:49] VITALS: BP 104/54
[2019-12-30] MEDS: fentaNYL PF VIAL 100 MCG/2 ML VIAL IVP PRN ×10 (01:25→22:34)
[2019-12-30] MEDS: ONDANSETRON PF 4 MG/2 ML VIAL. IVP PRN ×4 (03:25→22:34)
[2019-12-30 03:40] VITALS: BP 103/57
[2019-12-30 04:42] LABS: BASO % 0 % (0-3); EOS # 0.1 x10^3/uL (0.0-0.7); EOS % 2 % (0-3); HEMATOCRIT 24.6 % (36.0-47.0); HEMOGLOBIN 8.4 g/dL (12.0-15.5); LYMPH # 1.1 x10^3/uL (1.0-4.8); LYMPH % 41 % (24-48); MEAN CORPUSCULAR HEMOGLOBIN 32 pg (25-35); MEAN CORPUSCULAR HGB CONC 34 g/dL (31-37); MEAN CORPUSCULAR VOLUME 94 fL (79-100); MONO # 0.3 x10^3/uL (0.0-1.1); MONO % 9 % (0-9); NEUT # 1.3 x10^3/uL (1.8-7.7); NEUT % 48 % (31-73); PLATELET COUNT 79 x10^3/uL (140-400); RED BLOOD COUNT 2.62 x10^6/uL (3.50-5.40); RED CELL DISTRIBUTION WIDTH 13.3 % (11.5-14.5); WHITE BLOOD COUNT 2.8 x10^3/uL (4.0-11.0)
[2019-12-30 05:01] LABS: CALCIUM 7.8 mg/dL (8.5-10.1); CREATININE 0.5 mg/dL (0.6-1.0); GFR 155.7; POTASSIUM 3.7 mmol/L (3.5-5.1)
[2019-12-30] MEDS: PROCHLORPERAZINE 10 MG/2 ML VIAL. IVP PRN ×2 (05:59→17:22)
[2019-12-30 07:59] VITALS: BP 93/52
--- NOTE | 2019-12-30 09:52 | PDOC ---
Infectious Disease Note Subjective Subjective Tired this morning Nauseous, no vomiting No fevers/chills last 48 hours ROS ROS Denies SOA/cough Denies rash Vital Sign Vital Signs Vital Signs Date Time Temp Pulse Resp B/P (MAP) Pulse Ox O2 Delivery O2 Flow Rate FiO2 12/30/19 08:35 20 Room Air 12/30/19 07:59 98.5 86 93/52 (66) 97 98.5 Physical Exam PHYSICAL EXAM GENERAL: Propped up in bed, sleeping, arouses to name. HEENT: PAYTON. Oral cavity pink, dry. + bacterial overgrowth on the tongue NECK: Supple LUNGS: Clear. HEART: S1, S2 regular. ABDOMEN: Bowel sounds present, soft and nontender. J-tube clean EXTREMITIES: No edema or cyanosis. SKIN: without rash. NEUROLOGICAL: Oriented, No focal neurologic deficit. Right-sided Port-A-Cath site -some faint redness present and tender. Labs Lab Laboratory Tests Test 12/30/19 04:10 White Blood Count 2.8 x10^3/uL (4.0-11.0) Red Blood Count 2.62 x10^6/uL (3.50-5.40) Hemoglobin 8.4 g/dL (12.0-15.5) Hematocrit 24.6 % (36.0-47.0) Mean Corpuscular Volume 94 fL (79-100) Mean Corpuscular Hemoglobin 32 pg (25-35) Mean Corpuscular Hemoglobin Concent 34 g/dL (31-37) Red Cell Distribution Width 13.3 % (11.5-14.5) Platelet Count 79 x10^3/uL (140-400) Neutrophils (%) (Auto) 48 % (31-73) Lymphocytes (%) (Auto) 41 % (24-48) Monocytes (%) (Auto) 9 % (0-9) Eosinophils (%) (Auto) 2 % (0-3) Basophils (%) (Auto) 0 % (0-3) Neutrophils # (Auto) 1.3 x10^3/uL (1.8-7.7) Lymphocytes # (Auto) 1.1 x10^3/uL (1.0-4.8) Monocytes # (Auto) 0.3 x10^3/uL (0.0-1.1) Eosinophils # (Auto) 0.1 x10^3/uL (0.0-0.7) Basophils # (Auto) 0.0 x10^3/uL (0.0-0.2) Sodium Level 141 mmol/L (136-145) Potassium Level 3.7 mmol/L (3.5-5.1) Chloride Level 107 mmol/L (98-107) Carbon Dioxide Level 25 mmol/L (21-32) Anion Gap 9 (6-14) Blood Urea Nitrogen 9 mg/dL (7-20) Creatinine 0.5 mg/dL (0.6-1.0) Estimated GFR (Cockcroft-Gault) 155.7 Glucose Level 81 mg/dL (70-99) Calcium Level 7.8 mg/dL (8.5-10.1) Micro 12/25. BLOOD CULTURE LC Preliminary Preliminary GROWTH OF GRAM POSITIVE COCCI on 12/28/19 at 0933 FINAL ID= [STAPHYLOCOCCUS AUREUS] STAPHYLOCOCCUS AUREUS ANTIMICROBIAL SUSCEPTIBILITY Final Comment POS KEREN TYPE 38 STAPHYLOCOCCUS AUREUS (MRSA) ANTIBIOTIC RESULT INTERPRETATION AZITHROMYCIN >4 R CLINDAMYCIN >4 R CEFOXITIN SCREEN >4 POS CIPROFLOXACIN <=1 S CEFTAROLINE <=0.5 S DAPTOMYCIN 1 S ERYTHROMYCIN >4 R GENTAMICIN <=4 S LINEZOLID 2 S LEVOFLOXACIN <=1 S OXACILLIN >2 R PENICILLIN >2 R* RIFAMPIN <=1 S TRIMETHOPRIM/SULFAMETHOXAZOLE <=0.5/9.5 S TETRACYCLINE <=4 S VANCOMYCIN 1 S Objective Assessment Fever - better Pancytopenia 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 Some redness and tenderness at the Port-A-Cath site. Recently placed on 11/25. Gastroparesis, on total parenteral nutrition at home. s/p G-tube exchange and j-tube injection, 12/27 Plan Plan of Care Continue daptomycin Monitor for abx toxicity Repeat CBC in am F/u BC from today Echo r/o vegatation Maintain aspiration precautions Plan to have IR remove port Discussed with nursing Attending Co-Sign The patient was seen and interviewed as well as examined at the bedside. The chart was reviewed. The case was discussed. Agree with the plan of care. ISAIAS ELI APRN Dec 30, 2019 09:52 ISAAC RODRIGUEZ MD Dec 30, 2019 10:43
--- NOTE | 2019-12-30 10:28 | PDOC ---
PROGRESS NOTES Date of Service: DATE: 12/30/19 TIME: 10:28 Chief Complaint Chief Complaint IMPRESSION === Sepsis 3/4 blood culture bottles positive for gram + cocci in clusters Bicytopenia Hypotension Severe idiopathic gastroparesis Blood culture positive with Staphylococcus, 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 D/W FAMILY IN ROOM Repeat CBC in am F/u BC Echo r/o vegatation Maintain aspiration precautions IR remove port 39 MIN PT EXAM, CHART REVIEW, > 50% OF TIME SPENT WITH EXAM, CHART REVIEW, PT CARE COORDINATION History of Present Illness History of Present Illness 12/27/2019 Patient seen and examined Appears acutely ill Laying in bed in moderate distress Complains of fevers, chills, pain at site of port-a-cath Chart reviewed Discussed with RN Vitals Vitals Vital Signs Date Time Temp Pulse Resp B/P (MAP) Pulse Ox O2 Delivery O2 Flow Rate FiO2 12/30/19 09:05 20 Room Air 12/30/19 07:59 98.5 86 93/52 (66) 97 98.5 Physical Exam Physical Exam GENERAL: Propped up in bed, sleeping, arouses to name. HEENT: PAYTON. Oral cavity pink, dry. + bacterial overgrowth on the tongue NECK: Supple LUNGS: Clear. HEART: S1, S2 regular. ABDOMEN: Bowel sounds present, soft and nontender. J-tube clean EXTREMITIES: No edema or cyanosis. SKIN: without rash. NEUROLOGICAL: Oriented, No focal neurologic deficit. Right-sided Port-A-Cath site -some faint redness present and tender. General: Alert, Oriented X3, Cooperative, No acute distress Heart: Regular rate, Normal S1, Normal S2 Lungs: Clear Abdomen: Normal bowel sounds, Soft, No tenderness, Other (g/j tubes in place) Extremities: No clubbing, No cyanosis Skin: Other (erythema to port site ) Labs LABS Laboratory Tests Test 12/30/19 04:10 White Blood Count 2.8 x10^3/uL (4.0-11.0) Red Blood Count 2.62 x10^6/uL (3.50-5.40) Hemoglobin 8.4 g/dL (12.0-15.5) Hematocrit 24.6 % (36.0-47.0) Mean Corpuscular Volume 94 fL (79-100) Mean Corpuscular Hemoglobin 32 pg (25-35) Mean Corpuscular Hemoglobin Concent 34 g/dL (31-37) Red Cell Distribution Width 13.3 % (11.5-14.5) Platelet Count 79 x10^3/uL (140-400) Neutrophils (%) (Auto) 48 % (31-73) Lymphocytes (%) (Auto) 41 % (24-48) Monocytes (%) (Auto) 9 % (0-9) Eosinophils (%) (Auto) 2 % (0-3) Basophils (%) (Auto) 0 % (0-3) Neutrophils # (Auto) 1.3 x10^3/uL (1.8-7.7) Lymphocytes # (Auto) 1.1 x10^3/uL (1.0-4.8) Monocytes # (Auto) 0.3 x10^3/uL (0.0-1.1) Eosinophils # (Auto) 0.1 x10^3/uL (0.0-0.7) Basophils # (Auto) 0.0 x10^3/uL (0.0-0.2) Sodium Level 141 mmol/L (136-145) Potassium Level 3.7 mmol/L (3.5-5.1) Chloride Level 107 mmol/L (98-107) Carbon Dioxide Level 25 mmol/L (21-32) Anion Gap 9 (6-14) Blood Urea Nitrogen 9 mg/dL (7-20) Creatinine 0.5 mg/dL (0.6-1.0) Estimated GFR (Cockcroft-Gault) 155.7 Glucose Level 81 mg/dL (70-99) Calcium Level 7.8 mg/dL (8.5-10.1) Assessment and Plan Assessmemt and Plan Problems Medical Problems: (1) Fever Status: Acute (2) Infection due to Port-A-Cath Status: Acute Comment Review of Relevant I have reviewed the following items lalo (where applicable) has been applied. Labs Laboratory Tests Test 12/28/19 12:25 12/29/19 09:20 12/30/19 04:10 Prothrombin Time 16.6 SEC (11.7-14.0) Prothromb Time International Ratio 1.4 (0.8-1.1) Activated Partial Thromboplast Time 35 SEC (24-38) Fibrinogen 350 mg/dL (200-440) White Blood Count 2.6 x10^3/uL (4.0-11.0) 2.8 x10^3/uL (4.0-11.0) Red Blood Count 2.74 x10^6/uL (3.50-5.40) 2.62 x10^6/uL (3.50-5.40) Hemoglobin 8.9 g/dL (12.0-15.5) 8.4 g/dL (12.0-15.5) Hematocrit 25.7 % (36.0-47.0) 24.6 % (36.0-47.0) Mean Corpuscular Volume 94 fL (79-100) 94 fL (79-100) Mean Corpuscular Hemoglobin 32 pg (25-35) 32 pg (25-35) Mean Corpuscular Hemoglobin Concent 34 g/dL (31-37) 34 g/dL (31-37) Red Cell Distribution Width 13.4 % (11.5-14.5) 13.3 % (11.5-14.5) Platelet Count 70 x10^3/uL (140-400) 79 x10^3/uL (140-400) Neutrophils (%) (Auto) 54 % (31-73) 48 % (31-73) Lymphocytes (%) (Auto) 32 % (24-48) 41 % (24-48) Monocytes (%) (Auto) 12 % (0-9) 9 % (0-9) Eosinophils (%) (Auto) 1 % (0-3) 2 % (0-3) Basophils (%) (Auto) 0 % (0-3) 0 % (0-3) Neutrophils # (Auto) 1.4 x10^3/uL (1.8-7.7) 1.3 x10^3/uL (1.8-7.7) Lymphocytes # (Auto) 0.9 x10^3/uL (1.0-4.8) 1.1 x10^3/uL (1.0-4.8) Monocytes # (Auto) 0.3 x10^3/uL (0.0-1.1) 0.3 x10^3/uL (0.0-1.1) Eosinophils # (Auto) 0.0 x10^3/uL (0.0-0.7) 0.1 x10^3/uL (0.0-0.7) Basophils # (Auto) 0.0 x10^3/uL (0.0-0.2) 0.0 x10^3/uL (0.0-0.2) Sodium Level 142 mmol/L (136-145) 141 mmol/L (136-145) Potassium Level 3.9 mmol/L (3.5-5.1) 3.7 mmol/L (3.5-5.1) Chloride Level 107 mmol/L (98-107) 107 mmol/L (98-107) Carbon Dioxide Level 25 mmol/L (21-32) 25 mmol/L (21-32) Anion Gap 10 (6-14) 9 (6-14) Blood Urea Nitrogen 8 mg/dL (7-20) 9 mg/dL (7-20) Creatinine 0.6 mg/dL (0.6-1.0) 0.5 mg/dL (0.6-1.0) Estimated GFR (Cockcroft-Gault) 126.2 155.7 Glucose Level 85 mg/dL (70-99) 81 mg/dL (70-99) Calcium Level 7.6 mg/dL (8.5-10.1) 7.8 mg/dL (8.5-10.1) Vancomycin Level Trough 9.9 mcg/mL (10.0-20.0) Vancomycin Last Dose Date 12/29/19 Vancomycin Last Dose Time 0200 Laboratory Tests Test 12/30/19 04:10 White Blood Count 2.8 x10^3/uL (4.0-11.0) Red Blood Count 2.62 x10^6/uL (3.50-5.40) Hemoglobin 8.4 g/dL (12.0-15.5) Hematocrit 24.6 % (36.0-47.0) Mean Corpuscular Volume 94 fL (79-100) Mean Corpuscular Hemoglobin 32 pg (25-35) Mean Corpuscular Hemoglobin Concent 34 g/dL (31-37) Red Cell Distribution Width 13.3 % (11.5-14.5) Platelet Count 79 x10^3/uL (140-400) Neutrophils (%) (Auto) 48 % (31-73) Lymphocytes (%) (Auto) 41 % (24-48) Monocytes (%) (Auto) 9 % (0-9) Eosinophils (%) (Auto) 2 % (0-3) Basophils (%) (Auto) 0 % (0-3) Neutrophils # (Auto) 1.3 x10^3/uL (1.8-7.7) Lymphocytes # (Auto) 1.1 x10^3/uL (1.0-4.8) Monocytes # (Auto) 0.3 x10^3/uL (0.0-1.1) Eosinophils # (Auto) 0.1 x10^3/uL (0.0-0.7) Basophils # (Auto) 0.0 x10^3/uL (0.0-0.2) Sodium Level 141 mmol/L (136-145) Potassium Level 3.7 mmol/L (3.5-5.1) Chloride Level 107 mmol/L (98-107) Carbon Dioxide Level 25 mmol/L (21-32) Anion Gap 9 (6-14) Blood Urea Nitrogen 9 mg/dL (7-20) Creatinine 0.5 mg/dL (0.6-1.0) Estimated GFR (Cockcroft-Gault) 155.7 Glucose Level 81 mg/dL (70-99) Calcium Level 7.8 mg/dL (8.5-10.1) Microbiology 12/26/19 Blood Culture - Final, Complete Medications Current Medications Sodium Chloride 1,000 ml @ 1,000 mls/hr Q1H IV Last administered on 12/26/19at 14:52; Start 12/26/19 at 14:44; Stop 12/26/19 at 15:43; Status DC Acetaminophen (Tylenol) 1,000 mg 1X ONCE PO Last administered on 12/26/19at 14:52; Start 12/26/19 at 14:45; Stop 12/26/19 at 14:52; Status DC Fentanyl Citrate (Fentanyl 2ml Vial) 50 mcg 1X ONCE IVP Last administered on 12/26/19at 14:51; Start 12/26/19 at 14:45; Stop 12/26/19 at 14:52; Status DC Sodium Chloride 1,000 ml @ 1,000 mls/hr 1X ONCE IV Last administered on 12/26/19at 16:16; Start 12/26/19 at 15:30; Stop 12/26/19 at 16:29; Status DC Piperacillin Sod/ Tazobactam Sod 3.375 gm/Sodium Chloride 50 ml @ 100 mls/hr 1X ONCE IV Last administered on 12/26/19at 16:15; Start 12/26/19 at 16:15; Stop 12/27/19 at 10:20; Status DC Diphenhydramine HCl (Benadryl) 25 mg 1X ONCE IVP Last administered on 12/26/19at 16:16; Start 12/26/19 at 16:15; Stop 12/26/19 at 16:16; Status DC Vancomycin HCl (Vanco Per Pharmacy) 1 each PRN DAILY PRN MC SEE COMMENTS Last administered on 12/29/19at 12:34; Start 12/26/19 at 16:15; Stop 12/29/19 at 12:43; Status DC Vancomycin HCl 1.75 gm/Sodium Chloride 500 ml @ 250 mls/hr 1X ONCE IV Last administered on 12/26/19at 16:59; Start 12/26/19 at 17:00; Stop 12/26/19 at 18:59; Status DC Fentanyl Citrate (Fentanyl 2ml Vial) 50 mcg 1X ONCE IVP Last administered on 12/26/19 16:59; Start 12/26/19 at 16:45; Stop 12/26/19 at 16:46; Status DC Vancomycin HCl 1 gm/Sodium Chloride 250 ml @ 250 mls/hr Q8H IV Last administered on 12/27/19 18:09; Start 12/27/19 at 01:00; Stop 12/27/19 at 20:25; Status DC Vancomycin HCl (Vancomycin Trough Level) 1 each 1X ONCE MC Last administered o n 12/27/19at 16:30; Start 12/27/19 at 16:30; Stop 12/27/19 at 16:31; Status DC Fentanyl Citrate (Fentanyl 2ml Vial) 50 mcg PRN Q2HR PRN IVP PAIN Last administered on 12/30/19at 08:35; Start 12/26/19 at 18:45 Ondansetron HCl (Zofran) 4 mg PRN Q6HRS PRN IVP NAUSEA/VOMITING Last administered on 12/30/19at 09:59; Start 12/26/19 at 18:45 Prochlorperazine Edisylate (Compazine) 10 mg PRN Q8HRS PRN IM NAUSEA/VOMITING Last administered on 12/28/19at 12:28; Start 12/26/19 at 18:45; Stop 12/29/19 at 14:52; Status DC Acetaminophen (Tylenol) 650 mg PRN Q6HRS PRN PEG MILD PAIN / TEMP > 100.3'F Last administered on 12/27/19at 11:50; Start 12/26/19 at 18:45 Cefazolin Sodium/ Dextrose 50 ml @ 100 mls/hr Q8HRS IV ; Start 12/27/19 at 11:00; Status Cancel Cefazolin Sodium/ Dextrose 50 ml @ 100 mls/hr Q8HRS IV Last administered on 12/29/19at 05:55; Start 12/27/19 at 12:00; Stop 12/29/19 at 12:38; Status DC Amino Acids/ Glycerin/ Electrolytes 1,000 ml @ 75 mls/hr [id number] IV Last administered on 12/29/19at 16:49; Start 12/27/19 at 11:30 Vancomycin HCl 1.25 gm/Sodium Chloride 250 ml @ 250 mls/hr Q8H IV Last administered on 12/29/19at 02:00; Start 12/28/19 at 02:00; Stop 12/29/19 at 10:05; Status DC Vancomycin HCl (Vancomycin Trough Level) 1 each 1X ONCE MC Last administered on 12/29/19at 09:30; Start 12/29/19 at 09:30; Stop 12/29/19 at 09:31; Status DC Iohexol (Omnipaque 240 Mg/ml) 50 ml STK-MED ONCE .ROUTE ; Start 12/28/19 at 11:26; Stop 12/28/19 at 11:26; Status DC Midazolam HCl (Versed) 2 mg STK-MED ONCE .ROUTE ; Start 12/28/19 at 12:21; Stop 12/28/19 at 12:22; Status DC Fentanyl Citrate (Fentanyl 2ml Vial) 100 mcg STK-MED ONCE .ROUTE ; Start 12/28/19 at 12:21; Stop 12/28/19 at 12:22; Status DC Potassium Chloride/Water 100 ml @ 100 mls/hr Q1H IV Last administered on 12/28/19at 18:41; Start 12/28/19 at 13:00; Stop 12/28/19 at 14:59; Status DC Lidocaine HCl (Buffered Lidocaine 1%) 3 ml 1X ONCE IJ Last administered on 12/28/19at 12:50; Start 12/28/19 at 13:00; Stop 12/28/19 at 13:01; Status DC Midazolam HCl (Versed) 2 mg 1X ONCE IV Last administered on 12/28/19at 12:45; Start 12/28/19 at 13:00; Stop 12/28/19 at 13:01; Status DC Iohexol (Omnipaque 240 Mg/ml) 50 ml 1X ONCE IJ Last administered on 12/28/19at 12:52; Start 12/28/19 at 13:00; Stop 12/28/19 at 13:01; Status DC Lidocaine HCl (Buffered Lidocaine 1%) 3 ml STK-MED ONCE .ROUTE ; Start 12/28/19 at 12:54; Stop 12/28/19 at 12:55; Status DC Fentanyl Citrate (Fentanyl 2ml Vial) 100 mcg 1X ONCE IV Last administered on 12/28/19at 12:50; Start 12/28/19 at 13:15; Stop 12/28/19 at 13:16; Status DC Vancomycin HCl 1.25 gm/Sodium Chloride 250 ml @ 250 mls/hr Q6H IV ; Start 12/29/19 at 10:00; Status Cancel Vancomycin HCl 1.25 gm/Sodium Chloride 250 ml @ 250 mls/hr Q6H IV ; Start 12/29/19 at 10:08; Status Cancel Vancomycin HCl 1.25 gm/Sodium Chloride 250 ml @ 250 mls/hr Q6H IV Last administered on 12/29/19at 10:48; Start 12/29/19 at 10:00; Stop 12/29/19 at 12:41; Status DC Vancomycin HCl 1.75 gm/Sodium Chloride 500 ml @ 250 mls/hr Q8H IV ; Start 12/29/19 at 19:00; Stop 12/29/19 at 12:40; Status DC Vancomycin HCl (Vancomycin Trough Level) 1 each 1X ONCE MC ; Start 12/30/19 at 18:30; Stop 12/30/19 at 18:31; Status Cancel Daptomycin 440 mg/ Sodium Chloride 50 ml @ 100 mls/hr Q24H IV Last administered on 12/29/19at 14:28; Start 12/29/19 at 13:00 Prochlorperazine Edisylate (Compazine) 10 mg PRN Q8HRS PRN IVP NAUSEA/VOMITING Last administered on 12/30/19at 05:59; Start 12/29/19 at 15:00 Active Scripts Active [Tpn Per Pharmacy] 1 EACH Each 1 Each MC PRN DAILY PRN 30 Days Tpn Electrolytes Vial (Sodium/K+/Mag/Ca/Chlor/Acetate) 20 Ml Vial 20 Ml IV DAILY06 30 Days Metoclopramide Hcl 5 Mg/1 Ml Vial 10 Mg IVP PRN Q6HRS PRN 14 Days [Pantoprazole Iv Push] 40 MG Vial 40 Mg IVP BIDAC 30 Days Ondansetron Hcl 4 Mg/2 Ml Vial (Ondansetron Hcl/Pf) 4 Mg/2 Ml Vial 4 Mg IVP PRN Q6HRS PRN 30 Days Prochlorperazine Edisylate 10 Mg/2 Ml Vial 10 Mg IV PRN Q6HRS PRN 14 Days Milk Of Magnesia (Magnesium Hydroxide) 400 Mg/5 Ml Oral.susp 2,400 Mg JT DAILY 30 Days Enemeez (Docusate Sodium) 283 Mg/5 Ml Enema 283 Mg VA PRN DAILY PRN 30 Days Bisacodyl 10 Mg Supp.rect 10 Mg VA PRN DAILY PRN 30 Days Nystatin 100,000 Unit/1 Ml Oral.susp 5 Ml SWSW [id number] 10 Days Hydrocodone-Apap 7.5-325/15 Soln (Hydrocodone Bit/Acetaminophen) 15 Ml Solution 15 Ml JT PRN Q6HRS PRN Reported Metoprolol Tartrate 50 Mg Tablet 1 Tab PO BID Advair Hfa 230-21 Mcg Inhaler (Fluticasone/Salmeterol) 12 Gm Hfa.aer.ad 1 Inh IH BID Dicyclomine Hcl 20 Mg Tablet 20 Mg GT PRN QID PRN Olopatadine HCl 5 Ml Drops 0.1 % OP PRN DAILY PRN Promethazine Hcl 12.5 Mg Tablet 25 Mg GT Q6H PRN Trazodone Hcl 50 Mg Tablet 50 Mg GT HS Coq-10 (Ubidecarenone) 100 Mg Capsule 200 Mg GT DAILY Vitamin D3 (Cholecalciferol (Vitamin D3)) 4,000 Unit Capsule 2,000 Unit PO HS Xyzal (Levocetirizine Dihydrochloride) 5 Mg Tablet 5 Mg GT HS Proair Hfa (Albuterol Sulfate) 8.5 Gm Hfa.aer.ad 2 Puff IH PRN Q4-6HRS PRN 21 Days Ipratropium [place] 30 Ml Aguila 1 Aguila NS DAILY Duoneb 0.5-3(2.5) Mg/3 Ml (Albuterol/Ipratropium) 3 Ml Ampul.neb 3 Ml NEB PRN QID PRN Montelukast Sodium Tablet (Montelukast Sodium) 10 Mg Tablet 10 Mg GT DAILY PRN Multi Vitamin Daily (Multivitamin) 1 Each Tablet 1 Each GT DAILY Vitals/I & O Vital Sign - Last 24 Hours 12/29/19 12/29/19 12/29/19 12/29/19 10:54 12:00 12:30 14:31 Temp 99.1 99.1 Pulse 76 Resp 18 20 20 B/P (MAP) 95/63 (74) Pulse Ox 95 O2 Delivery Room Air Room Air Room Air Room Air 12/29/19 12/29/19 12/29/19 12/29/19 15:01 15:42 16:49 17:19 Temp 98.8 98.8 Pulse 77 Resp 20 18 20 20 B/P (MAP) 110/66 (81) Pulse Ox 98 O2 Delivery Room Air Room Air Room Air Room Air 12/29/19 12/29/19 12/29/19 12/29/19 19:17 19:27 19:30 21:22 Temp 98.5 98.5 Pulse 78 Resp 18 B/P (MAP) 104/64 (77) Pulse Ox 96 O2 Delivery Room Air Room Air Room Air Room Air 12/29/19 12/29/19 12/29/19 12/29/19 21:28 22:51 23:23 23:49 Temp 98.5 98.5 Pulse 71 Resp 18 B/P (MAP) 104/54 (71) Pulse Ox 94 O2 Delivery Room Air Room Air Room Air Room Air 12/30/19 12/30/19 12/30/19 12/30/19 00:41 01:25 02:27 03:25 O2 Delivery Room Air Room Air Room Air Room Air 12/30/19 12/30/19 12/30/19 12/30/19 03:40 04:11 05:59 06:29 Temp 98.3 98.3 Pulse 63 Resp 17 20 B/P (MAP) 103/57 (72) Pulse Ox 98 O2 Delivery Room Air Room Air Room Air Room Air 12/30/19 12/30/19 12/30/19 12/30/19 07:59 08:00 08:35 09:05 Temp 98.5 98.5 Pulse 86 Resp 18 20 20 B/P (MAP) 93/52 (66) Pulse Ox 97 O2 Delivery Room Air Room Air Room Air Room Air Intake and Output 12/29/19 12/29/19 12/30/19 15:00 23:00 07:00 Intake Total 0 ml 0 ml 0 ml Balance 0 ml 0 ml 0 ml Justicifation of Admission Dx: Justifications for Admission: Justification of Admission Dx: Yes Sepsis: Bacteremia JEFFERSON XAVIER MD Dec 30, 2019 10:28
[2019-12-30] MEDS: AMINO AC 3%/ELECTROLYTE/GLYCER 1,000 ML IV SCH ×2 (10:39→19:59)
[2019-12-30 11:12] VITALS: BP 110/66
[2019-12-30] MEDS: DAPTOmycin (GENERIC) IVPB 440 MG in IV NORMAL SALINE 50ML 50 ML IV SCH (13:16)
[2019-12-30 15:56] VITALS: BP 106/65
[2019-12-30 19:40] VITALS: BP 111/63
[2019-12-30 22:36] VITALS: BP 105/65
[2019-12-31] VITALS (11 sets, daily range): BP systolic 99–138; BP diastolic 55–79
[2019-12-31] MEDS: fentaNYL PF VIAL 100 MCG/2 ML VIAL IVP PRN ×10 (01:19→21:50)
[2019-12-31 06:17] LABS: BASO % 0 % (0-3); EOS % 1 % (0-3); HEMATOCRIT 26.3 % (36.0-47.0); LYMPH # 1.3 x10^3/uL (1.0-4.8); LYMPH % 39 % (24-48); MEAN CORPUSCULAR HEMOGLOBIN 32 pg (25-35); MEAN CORPUSCULAR HGB CONC 34 g/dL (31-37); MEAN CORPUSCULAR VOLUME 93 fL (79-100); MONO # 0.3 x10^3/uL (0.0-1.1); MONO % 9 % (0-9); NEUT # 1.7 x10^3/uL (1.8-7.7); NEUT % 51 % (31-73); PLATELET COUNT 96 x10^3/uL (140-400); RED BLOOD COUNT 2.82 x10^6/uL (3.50-5.40); RED CELL DISTRIBUTION WIDTH 13.3 % (11.5-14.5); WHITE BLOOD COUNT 3.3 x10^3/uL (4.0-11.0)
[2019-12-31 06:27] LABS: CALCIUM 8.1 mg/dL (8.5-10.1); CREATININE 0.4 mg/dL (0.6-1.0); GFR 201.5; POTASSIUM 3.7 mmol/L (3.5-5.1)
[2019-12-31] MEDS: AMINO AC 3%/ELECTROLYTE/GLYCER 1,000 ML IV SCH ×2 (09:22→17:47)
[2019-12-31] MEDS: ONDANSETRON PF 4 MG/2 ML VIAL. IVP PRN ×3 (09:22→21:50)
--- NOTE | 2019-12-31 09:28 | PDOC ---
Infectious Disease Note Subjective: Subjective Pt says she feels a little better Nauseous, no vomiting No fevers/chills Vital Signs: Vital Signs Vital Signs Date Time Temp Pulse Resp B/P (MAP) Pulse Ox O2 Delivery O2 Flow Rate FiO2 12/31/19 07:00 98.4 68 18 108/67 (81) 97 Room Air 98.4 Physical Exam: PHYSICAL EXAM GENERAL: Propped up in bed, sleeping, arouses to name. HEENT: PAYTON. Oral cavity pink, dry. + bacterial overgrowth on the tongue NECK: Supple LUNGS: Clear. HEART: S1, S2 regular. ABDOMEN: Bowel sounds present, soft and nontender. J-tube clean EXTREMITIES: No edema or cyanosis. SKIN: without rash. NEUROLOGICAL: Oriented, No focal neurologic deficit. Right-sided Port-A-Cath site -some faint redness present and tender. Medications: Inpatient Meds: Current Medications Medications (Trade) Dose Ordered Sig/Kel Start Time Stop Time Status Last Admin Dose Admin Acetaminophen (Tylenol) 650 mg PRN Q6HRS PRN 12/26/19 18:45 12/27/19 11:50 650 MG Amino Acids/ Glycerin/ Electrolytes 1,000 ml @ 75 mls/hr [id number] 12/27/19 11:30 12/30/19 19:59 75 MLS/HR Cefazolin Sodium/ Dextrose 50 ml @ 100 mls/hr Q8HRS 12/27/19 12:00 12/29/19 12:38 DC 12/29/19 05:55 100 MLS/HR Daptomycin 440 mg/ Sodium Chloride 50 ml @ 100 mls/hr Q24H 12/29/19 13:00 12/30/19 13:16 100 MLS/HR Diphenhydramine HCl (Benadryl) 25 mg 1X ONCE 12/26/19 16:15 12/26/19 16:16 DC 12/26/19 16:16 25 MG Fentanyl Citrate (Fentanyl 2ml Vial) 100 mcg 1X ONCE 12/28/19 13:15 12/28/19 13:16 DC 12/28/19 12:50 50 MCG Iohexol (Omnipaque 240 Mg/ml) 50 ml 1X ONCE 12/28/19 13:00 12/28/19 13:01 DC 12/28/19 12:52 15 ML Lidocaine HCl (Buffered Lidocaine 1%) 3 ml STK-MED ONCE 12/28/19 12:54 12/28/19 12:55 DC Midazolam HCl (Versed) 2 mg 1X ONCE 12/28/19 13:00 12/28/19 13:01 DC 12/28/19 12:45 1 MG Ondansetron HCl (Zofran) 4 mg PRN Q6HRS PRN 12/26/19 18:45 12/30/19 22:34 4 MG Piperacillin Sod/ Tazobactam Sod 3.375 gm/Sodium Chloride 50 ml @ 100 mls/hr 1X ONCE 12/26/19 16:15 12/27/19 10:20 DC 12/26/19 16:15 100 MLS/HR Potassium Chloride/Water 100 ml @ 100 mls/hr Q1H 12/28/19 13:00 12/28/19 14:59 DC 12/28/19 18:41 100 MLS/HR Prochlorperazine Edisylate (Compazine) 10 mg PRN Q8HRS PRN 12/29/19 15:00 12/30/19 17:22 10 MG Sodium Chloride 1,000 ml @ 1,000 mls/hr 1X ONCE 12/26/19 15:30 12/26/19 16:29 DC 12/26/19 16:16 1,000 MLS/HR Vancomycin HCl (Vanco Per Pharmacy) 1 each PRN DAILY PRN 12/26/19 16:15 12/29/19 12:43 DC 12/29/19 12:34 1 EACH Vancomycin HCl (Vancomycin Trough Level) 1 each 1X ONCE 12/30/19 18:30 12/30/19 18:31 Cancel Vancomycin HCl 1.25 gm/Sodium Chloride 250 ml @ 250 mls/hr Q6H 12/29/19 10:00 12/29/19 12:41 DC 12/29/19 10:48 250 MLS/HR Vancomycin HCl 1.75 gm/Sodium Chloride 500 ml @ 250 mls/hr Q8H 12/29/19 19:00 12/29/19 12:40 DC Vancomycin HCl 1 gm/Sodium Chloride 250 ml @ 250 mls/hr Q8H 12/27/19 01:00 12/27/19 20:25 DC 12/27/19 18:09 250 MLS/HR Labs: Lab Laboratory Tests Test 12/31/19 05:30 White Blood Count 3.3 x10^3/uL (4.0-11.0) Red Blood Count 2.82 x10^6/uL (3.50-5.40) Hemoglobin 9.0 g/dL (12.0-15.5) Hematocrit 26.3 % (36.0-47.0) Mean Corpuscular Volume 93 fL (79-100) Mean Corpuscular Hemoglobin 32 pg (25-35) Mean Corpuscular Hemoglobin Concent 34 g/dL (31-37) Red Cell Distribution Width 13.3 % (11.5-14.5) Platelet Count 96 x10^3/uL (140-400) Neutrophils (%) (Auto) 51 % (31-73) Lymphocytes (%) (Auto) 39 % (24-48) Monocytes (%) (Auto) 9 % (0-9) Eosinophils (%) (Auto) 1 % (0-3) Basophils (%) (Auto) 0 % (0-3) Neutrophils # (Auto) 1.7 x10^3/uL (1.8-7.7) Lymphocytes # (Auto) 1.3 x10^3/uL (1.0-4.8) Monocytes # (Auto) 0.3 x10^3/uL (0.0-1.1) Eosinophils # (Auto) 0.0 x10^3/uL (0.0-0.7) Basophils # (Auto) 0.0 x10^3/uL (0.0-0.2) Sodium Level 140 mmol/L (136-145) Potassium Level 3.7 mmol/L (3.5-5.1) Chloride Level 105 mmol/L (98-107) Carbon Dioxide Level 26 mmol/L (21-32) Anion Gap 9 (6-14) Blood Urea Nitrogen 8 mg/dL (7-20) Creatinine 0.4 mg/dL (0.6-1.0) Estimated GFR (Cockcroft-Gault) 201.5 Glucose Level 81 mg/dL (70-99) Calcium Level 8.1 mg/dL (8.5-10.1) Iron Level 28 ug/dL (50-170) Total Iron Binding Capacity 246 ug/dL (250-450) Iron Saturation 11 % (15-34) Lactate Dehydrogenase 153 U/L (81-234) Objective: Assessment: Fever - better Pancytopenia 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 Some redness and tenderness at the Port-A-Cath site. Recently placed on 11/25. Gastroparesis, on total parenteral nutrition at home. s/p G-tube exchange and j-tube injection, 12/27 Plan: Plan of Care Continue daptomycin Monitor for abx toxicity F/u BC from 12/29 Echo r/o vegatation Maintain aspiration precautions Plan to have IR remove port Discussed with nursing GAYLE RODRIGUEZ MD Dec 31, 2019 09:27
--- NOTE | 2019-12-31 09:55 | NUR ---
SW following. Discussed with RN, pt from home, room air, NPO. Pt has TPN. Awaiting port cultures, IR likely to remove port. IV dapto. SW will continue to follow.
--- NOTE | 2019-12-31 10:10 | NUR ---
IP: Pt has mrsa + blood cultures requiring contact precautions.
[2019-12-31] MEDS ORDERED: LIDOCAINE 1%/EPI 1:100,000 20 ML VIAL. ONE (13:28)
[2019-12-31] MEDS ORDERED: MIDAZOLAM HCL/PF 2 MG/2 ML VIAL. ONE (14:03)
[2019-12-31] MEDS ORDERED: fentaNYL PF VIAL 100 MCG/2 ML VIAL ONE (14:04)
[2019-12-31] MEDS ORDERED: LIDOCAINE 1%/EPI 1:100,000 20 ML VIAL. INJ ONE (14:15)
[2019-12-31] MEDS ORDERED: fentaNYL PF VIAL 100 MCG/2 ML VIAL IV ONE (14:15)
[2019-12-31] MEDS ORDERED: MIDAZOLAM HCL/PF 2 MG/2 ML VIAL. IV ONE (14:15)
--- NOTE | 2019-12-31 14:21 | PDOC ---
PROGRESS NOTES Date of Service: DATE: 12/31/19 TIME: 14:20 Chief Complaint Chief Complaint Sepsis 3/4 blood culture bottles positive for gram + cocci in clusters Bicytopenia Hypotension Severe idiopathic gastroparesis Blood culture positive with Staphylococcus, 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 39 MIN PT EXAM, CHART REVIEW, > 50% OF TIME SPENT WITH EXAM, CHART REVIEW, PT CARE COORDINATION History of Present Illness History of Present Illness 12/31/2019 Patient seen and examined Laying in bed in minimal distress Complains of chills, much better, though, Chart reviewed Discussed with RN Vitals Vitals Vital Signs Date Time Temp Pulse Resp B/P (MAP) Pulse Ox O2 Delivery O2 Flow Rate FiO2 12/31/19 13:57 95 Room Air 12/31/19 11:00 98.0 60 16 100/69 (79) 98.0 Physical Exam Physical Exam GENERAL: Propped up in bed, sleeping, arouses to name. HEENT: [place]. Oral cavity pink, dry. + bacterial overgrowth on the tongue NECK: Supple LUNGS: Clear. HEART: S1, S2 regular. ABDOMEN: Bowel sounds present, soft and nontender. J-tube clean EXTREMITIES: No edema or cyanosis. SKIN: without rash. NEUROLOGICAL: Oriented, No focal neurologic deficit. Right-sided Port-A-Cath site -some faint redness present and tender. General: Alert, Oriented X3, Cooperative, No acute distress Heart: Regular rate, Normal S1, Normal S2 Lungs: Clear Abdomen: Normal bowel sounds, Soft, No tenderness, Other (g/j tubes in place) Extremities: No clubbing, No cyanosis Skin: Other (erythema to port site ) Labs LABS Laboratory Tests Test 12/31/19 05:30 White Blood Count 3.3 x10^3/uL (4.0-11.0) Red Blood Count 2.82 x10^6/uL (3.50-5.40) Hemoglobin 9.0 g/dL (12.0-15.5) Hematocrit 26.3 % (36.0-47.0) Mean Corpuscular Volume 93 fL (79-100) Mean Corpuscular Hemoglobin 32 pg (25-35) Mean Corpuscular Hemoglobin Concent 34 g/dL (31-37) Red Cell Distribution Width 13.3 % (11.5-14.5) Platelet Count 96 x10^3/uL (140-400) Neutrophils (%) (Auto) 51 % (31-73) Lymphocytes (%) (Auto) 39 % (24-48) Monocytes (%) (Auto) 9 % (0-9) Eosinophils (%) (Auto) 1 % (0-3) Basophils (%) (Auto) 0 % (0-3) Neutrophils # (Auto) 1.7 x10^3/uL (1.8-7.7) Lymphocytes # (Auto) 1.3 x10^3/uL (1.0-4.8) Monocytes # (Auto) 0.3 x10^3/uL (0.0-1.1) Eosinophils # (Auto) 0.0 x10^3/uL (0.0-0.7) Basophils # (Auto) 0.0 x10^3/uL (0.0-0.2) Haptoglobin 239 mg/dL (33-278) Sodium Level 140 mmol/L (136-145) Potassium Level 3.7 mmol/L (3.5-5.1) Chloride Level 105 mmol/L (98-107) Carbon Dioxide Level 26 mmol/L (21-32) Anion Gap 9 (6-14) Blood Urea Nitrogen 8 mg/dL (7-20) Creatinine 0.4 mg/dL (0.6-1.0) Estimated GFR (Cockcroft-Gault) 201.5 Glucose Level 81 mg/dL (70-99) Calcium Level 8.1 mg/dL (8.5-10.1) Iron Level 28 ug/dL (50-170) Total Iron Binding Capacity 246 ug/dL (250-450) Iron Saturation 11 % (15-34) Lactate Dehydrogenase 153 U/L (81-234) Vitamin B12 Level 846 pg/mL (247-911) Assessment and Plan Assessmemt and Plan Problems Medical Problems: (1) Fever Status: Acute (2) Infection due to Port-A-Cath Status: Acute Comment Review of Relevant I have reviewed the following items lalo (where applicable) has been applied. Labs Laboratory Tests Test 12/30/19 04:10 12/31/19 05:30 White Blood Count 2.8 x10^3/uL (4.0-11.0) 3.3 x10^3/uL (4.0-11.0) Red Blood Count 2.62 x10^6/uL (3.50-5.40) 2.82 x10^6/uL (3.50-5.40) Hemoglobin 8.4 g/dL (12.0-15.5) 9.0 g/dL (12.0-15.5) Hematocrit 24.6 % (36.0-47.0) 26.3 % (36.0-47.0) Mean Corpuscular Volume 94 fL (79-100) 93 fL (79-100) Mean Corpuscular Hemoglobin 32 pg (25-35) 32 pg (25-35) Mean Corpuscular Hemoglobin Concent 34 g/dL (31-37) 34 g/dL (31-37) Red Cell Distribution Width 13.3 % (11.5-14.5) 13.3 % (11.5-14.5) Platelet Count 79 x10^3/uL (140-400) 96 x10^3/uL (140-400) Neutrophils (%) (Auto) 48 % (31-73) 51 % (31-73) Lymphocytes (%) (Auto) 41 % (24-48) 39 % (24-48) Monocytes (%) (Auto) 9 % (0-9) 9 % (0-9) Eosinophils (%) (Auto) 2 % (0-3) 1 % (0-3) Basophils (%) (Auto) 0 % (0-3) 0 % (0-3) Neutrophils # (Auto) 1.3 x10^3/uL (1.8-7.7) 1.7 x10^3/uL (1.8-7.7) Lymphocytes # (Auto) 1.1 x10^3/uL (1.0-4.8) 1.3 x10^3/uL (1.0-4.8) Monocytes # (Auto) 0.3 x10^3/uL (0.0-1.1) 0.3 x10^3/uL (0.0-1.1) Eosinophils # (Auto) 0.1 x10^3/uL (0.0-0.7) 0.0 x10^3/uL (0.0-0.7) Basophils # (Auto) 0.0 x10^3/uL (0.0-0.2) 0.0 x10^3/uL (0.0-0.2) Sodium Level 141 mmol/L (136-145) 140 mmol/L (136-145) Potassium Level 3.7 mmol/L (3.5-5.1) 3.7 mmol/L (3.5-5.1) Chloride Level 107 mmol/L (98-107) 105 mmol/L (98-107) Carbon Dioxide Level 25 mmol/L (21-32) 26 mmol/L (21-32) Anion Gap 9 (6-14) 9 (6-14) Blood Urea Nitrogen 9 mg/dL (7-20) 8 mg/dL (7-20) Creatinine 0.5 mg/dL (0.6-1.0) 0.4 mg/dL (0.6-1.0) Estimated GFR (Cockcroft-Gault) 155.7 201.5 Glucose Level 81 mg/dL (70-99) 81 mg/dL (70-99) Calcium Level 7.8 mg/dL (8.5-10.1) 8.1 mg/dL (8.5-10.1) Haptoglobin 239 mg/dL (33-278) Iron Level 28 ug/dL (50-170) Total Iron Binding Capacity 246 ug/dL (250-450) Iron Saturation 11 % (15-34) Lactate Dehydrogenase 153 U/L (81-234) Vitamin B12 Level 846 pg/mL (247-911) Laboratory Tests Test 12/31/19 05:30 White Blood Count 3.3 x10^3/uL (4.0-11.0) Red Blood Count 2.82 x10^6/uL (3.50-5.40) Hemoglobin 9.0 g/dL (12.0-15.5) Hematocrit 26.3 % (36.0-47.0) Mean Corpuscular Volume 93 fL (79-100) Mean Corpuscular Hemoglobin 32 pg (25-35) Mean Corpuscular Hemoglobin Concent 34 g/dL (31-37) Red Cell Distribution Width 13.3 % (11.5-14.5) Platelet Count 96 x10^3/uL (140-400) Neutrophils (%) (Auto) 51 % (31-73) Lymphocytes (%) (Auto) 39 % (24-48) Monocytes (%) (Auto) 9 % (0-9) Eosinophils (%) (Auto) 1 % (0-3) Basophils (%) (Auto) 0 % (0-3) Neutrophils # (Auto) 1.7 x10^3/uL (1.8-7.7) Lymphocytes # (Auto) 1.3 x10^3/uL (1.0-4.8) Monocytes # (Auto) 0.3 x10^3/uL (0.0-1.1) Eosinophils # (Auto) 0.0 x10^3/uL (0.0-0.7) Basophils # (Auto) 0.0 x10^3/uL (0.0-0.2) Haptoglobin 239 mg/dL (33-278) Sodium Level 140 mmol/L (136-145) Potassium Level 3.7 mmol/L (3.5-5.1) Chloride Level 105 mmol/L (98-107) Carbon Dioxide Level 26 mmol/L (21-32) Anion Gap 9 (6-14) Blood Urea Nitrogen 8 mg/dL (7-20) Creatinine 0.4 mg/dL (0.6-1.0) Estimated GFR (Cockcroft-Gault) 201.5 Glucose Level 81 mg/dL (70-99) Calcium Level 8.1 mg/dL (8.5-10.1) Iron Level 28 ug/dL (50-170) Total Iron Binding Capacity 246 ug/dL (250-450) Iron Saturation 11 % (15-34) Lactate Dehydrogenase 153 U/L (81-234) Vitamin B12 Level 846 pg/mL (247-911) Microbiology 12/30/19 Blood Culture - Preliminary, Resulted NO GROWTH AFTER 1 DAY Medications Current Medications Sodium Chloride 1,000 ml @ 1,000 mls/hr Q1H IV Last administered on 12/26/19at 14:52; Start 12/26/19 at 14:44; Stop 12/26/19 at 15:43; Status DC Acetaminophen (Tylenol) 1,000 mg 1X ONCE PO Last administered on 12/26/19at 14:52; Start 12/26/19 at 14:45; Stop 12/26/19 at 14:52; Status DC Fentanyl Citrate (Fentanyl 2ml Vial) 50 mcg 1X ONCE IVP Last administered on 12/26/19at 14:51; Start 12/26/19 at 14:45; Stop 12/26/19 at 14:52; Status DC Sodium Chloride 1,000 ml @ 1,000 mls/hr 1X ONCE IV Last administered on 12/26/19at 16:16; Start 12/26/19 at 15:30; Stop 12/26/19 at 16:29; Status DC Piperacillin Sod/ Tazobactam Sod 3.375 gm/Sodium Chloride 50 ml @ 100 mls/hr 1X ONCE IV Last administered on 12/26/19at 16:15; Start 12/26/19 at 16:15; Stop 12/27/19 at 10:20; Status DC Diphenhydramine HCl (Benadryl) 25 mg 1X ONCE IVP Last administered on 12/26/19at 16:16; Start 12/26/19 at 16:15; Stop 12/26/19 at 16:16; Status DC Vancomycin HCl (Vanco Per Pharmacy) 1 each PRN DAILY PRN MC SEE COMMENTS Last administered on 12/29/19at 12:34; Start 12/26/19 at 16:15; Stop 12/29/19 at 12:43; Status DC Vancomycin HCl 1.75 gm/Sodium Chloride 500 ml @ 250 mls/hr 1X ONCE IV Last administered on 12/26/19 16:59; Start 12/26/19 at 17:00; Stop 12/26/19 at 18:59; Status DC Fentanyl Citrate (Fentanyl 2ml Vial) 50 mcg 1X ONCE IVP Last administered on 12/26/19at 16:59; Start 12/26/19 at 16:45; Stop 12/26/19 at 16:46; Status DC Vancomycin HCl 1 gm/Sodium Chloride 250 ml @ 250 mls/hr Q8H IV Last administered on 12/27/19at 18:09; Start 12/27/19 at 01:00; Stop 12/27/19 at 20:25; Status DC Vancomycin HCl (Vancomycin Trough Level) 1 each 1X ONCE MC Last administered on 12/27/19at 16:30; Start 12/27/19 at 16:30; Stop 12/27/19 at 16:31; Status DC Fentanyl Citrate (Fentanyl 2ml Vial) 50 mcg PRN Q2HR PRN IVP PAIN Last administered on 12/31/19at 13:57; Start 12/26/19 at 18:45 Ondansetron HCl (Zofran) 4 mg PRN Q6HRS PRN IVP NAUSEA/VOMITING 1ST CHOICE Last administered on 12/31/19at 09:22; Start 12/26/19 at 18:45 Prochlorperazine Edisylate (Compazine) 10 mg PRN Q8HRS PRN IM NAUSEA/VOMITING Last administered on 12/28/19at 12:28; Start 12/26/19 at 18:45; Stop 12/29/19 at 14:52; Status DC Acetaminophen (Tylenol) 650 mg PRN Q6HRS PRN PEG MILD PAIN / TEMP > 100.3'F Last administered on 12/27/19at 11:50; Start 12/26/19 at 18:45 Cefazolin Sodium/ Dextrose 50 ml @ 100 mls/hr Q8HRS IV ; Start 12/27/19 at 11:00; Status Cancel Cefazolin Sodium/ Dextrose 50 ml @ 100 mls/hr Q8HRS IV Last administered on 12/29/19at 05:55; Start 12/27/19 at 12:00; Stop 12/29/19 at 12:38; Status DC Amino Acids/ Glycerin/ Electrolytes 1,000 ml @ 75 mls/hr [id number] IV Last administered on 12/31/19at 09:22; Start 12/27/19 at 11:30 Vancomycin HCl 1.25 gm/Sodium Chloride 250 ml @ 250 mls/hr Q8H IV Last administered on 12/29/19at 02:00; Start 12/28/19 at 02:00; Stop 12/29/19 at 10:05; Status DC Vancomycin HCl (Vancomycin Trough Level) 1 each 1X ONCE MC Last administered on 12/29/19at 09:30; Start 12/29/19 at 09:30; Stop 12/29/19 at 09:31; Status DC Iohexol (Omnipaque 240 Mg/ml) 50 ml STK-MED ONCE .ROUTE ; Start 12/28/19 at 11:26; Stop 12/28/19 at 11:26; Status DC Midazolam HCl (Versed) 2 mg STK-MED ONCE .ROUTE ; Start 12/28/19 at 12:21; Stop 12/28/19 at 12:22; Status DC Fentanyl Citrate (Fentanyl 2ml Vial) 100 mcg STK-MED ONCE .ROUTE ; Start 12/28/19 at 12:21; Stop 12/28/19 at 12:22; Status DC Potassium Chloride/Water 100 ml @ 100 mls/hr Q1H IV Last administered on 12/28/19at 18:41; Start 12/28/19 at 13:00; Stop 12/28/19 at 14:59; Status DC Lidocaine HCl (Buffered Lidocaine 1%) 3 ml 1X ONCE IJ Last administered on 12/28/19at 12:50; Start 12/28/19 at 13:00; Stop 12/28/19 at 13:01; Status DC Midazolam HCl (Versed) 2 mg 1X ONCE IV Last administered on 12/28/19at 12:45; Start 12/28/19 at 13:00; Stop 12/28/19 at 13:01; Status DC Iohexol (Omnipaque 240 Mg/ml) 50 ml 1X ONCE IJ Last administered on 12/28/19at 12:52; Start 12/28/19 at 13:00; Stop 12/28/19 at 13:01; Status DC Lidocaine HCl (Buffered Lidocaine 1%) 3 ml STK-MED ONCE .ROUTE ; Start 12/28/19 at 12:54; Stop 12/28/19 at 12:55; Status DC Fentanyl Citrate (Fentanyl 2ml Vial) 100 mcg 1X ONCE IV Last administered on 12/28/19at 12:50; Start 12/28/19 at 13:15; Stop 12/28/19 at 13:16; Status DC Vancomycin HCl 1.25 gm/Sodium Chloride 250 ml @ 250 mls/hr Q6H IV ; Start 12/29/19 at 10:00; Status Cancel Vancomycin HCl 1.25 gm/Sodium Chloride 250 ml @ 250 mls/hr Q6H IV ; Start 12/29/19 at 10:08; Status Cancel Vancomycin HCl 1.25 gm/Sodium Chloride 250 ml @ 250 mls/hr Q6H IV Last administered on 12/29/19at 10:48; Start 12/29/19 at 10:00; Stop 12/29/19 at 12:41; Status DC Vancomycin HCl 1.75 gm/Sodium Chloride 500 ml @ 250 mls/hr Q8H IV ; Start 12/29/19 at 19:00; Stop 12/29/19 at 12:40; Status DC Vancomycin HCl (Vancomycin Trough Level) 1 each 1X ONCE MC ; Start 12/30/19 at 18:30; Stop 12/30/19 at 18:31; Status Cancel Daptomycin 440 mg/ Sodium Chloride 50 ml @ 100 mls/hr Q24H IV Last ad ministered on 12/30/19at 13:16; Start 12/29/19 at 13:00 Prochlorperazine Edisylate (Compazine) 10 mg PRN Q8HRS PRN IVP NAUSEA/VOMITING 2ND CHOICE Last administered on 12/30/19at 17:22; Start 12/29/19 at 15:00 Lidocaine/ Epinephrine (LIDOCAINE 1%-EPI 1:100,000 Multi-Dose) 20 ml STK-MED ONCE .ROUTE ; Start 12/31/19 at 13:28; Stop 12/31/19 at 13:28; Status DC Midazolam HCl (Versed) 2 mg STK-MED ONCE .ROUTE ; Start 12/31/19 at 14:03; Stop 12/31/19 at 14:04; Status DC Fentanyl Citrate (Fentanyl 2ml Vial) 100 mcg STK-MED ONCE .ROUTE ; Start 12/31/19 at 14:04; Stop 12/31/19 at 14:04; Status DC Midazolam HCl (Versed) 2 mg 1X ONCE IV ; Start 12/31/19 at 14:15; Stop 12/31/19 at 14:19; Status DC Fentanyl Citrate (Fentanyl 2ml Vial) 100 mcg 1X ONCE IV ; Start 12/31/19 at 14:15; Stop 12/31/19 at 14:19; Status DC Lidocaine/ Epinephrine (LIDOCAINE 1%-EPI 1:100,000 Multi-Dose) 20 ml 1X ONCE INJ ; Start 12/31/19 at 14:15; Stop 12/31/19 at 14:19; Status DC Active Scripts Active [Tpn Per Pharmacy] 1 EACH Each 1 Each MC PRN DAILY PRN 30 Days Tpn Electrolytes Vial (Sodium/K+/Mag/Ca/Chlor/Acetate) 20 Ml Vial 20 Ml IV D [id number] 30 Days Metoclopramide Hcl 5 Mg/1 Ml Vial 10 Mg IVP PRN Q6HRS PRN 14 Days [Pantoprazole Iv Push] 40 MG Vial 40 Mg IVP BIDAC 30 Days Ondansetron Hcl 4 Mg/2 Ml Vial (Ondansetron Hcl/Pf) 4 Mg/2 Ml Vial 4 Mg IVP PRN Q6HRS PRN 30 Days Prochlorperazine Edisylate 10 Mg/2 Ml Vial 10 Mg IV PRN Q6HRS PRN 14 Days Milk Of Magnesia (Magnesium Hydroxide) 400 Mg/5 Ml Oral.susp 2,400 Mg JT DAILY 30 Days Enemeez (Docusate Sodium) 283 Mg/5 Ml Enema 283 Mg FL PRN DAILY PRN 30 Days Bisacodyl 10 Mg Supp.rect 10 Mg FL PRN DAILY PRN 30 Days Nystatin 100,000 Unit/1 Ml Oral.susp 5 Ml SWSW [id number] 10 Days Hydrocodone-Apap 7.5-325/15 Soln (Hydrocodone Bit/Acetaminophen) 15 Ml Solution 15 Ml JT PRN Q6HRS PRN Reported Metoprolol Tartrate 50 Mg Tablet 1 Tab PO BID Advair Hfa 230-21 Mcg Inhaler (Fluticasone/Salmeterol) 12 Gm Hfa.aer.ad 1 Inh IH BID Dicyclomine Hcl 20 Mg Tablet 20 Mg GT PRN QID PRN Olopatadine HCl 5 Ml Drops 0.1 % OP PRN DAILY PRN Promethazine Hcl 12.5 Mg Tablet 25 Mg GT Q6H PRN Trazodone Hcl 50 Mg Tablet 50 Mg GT HS Coq-10 (Ubidecarenone) 100 Mg Capsule 200 Mg GT DAILY Vitamin D3 (Cholecalciferol (Vitamin D3)) 4,000 Unit Capsule 2,000 Unit PO HS Xyzal (Levocetirizine Dihydrochloride) 5 Mg Tablet 5 Mg GT HS Proair Hfa (Albuterol Sulfate) 8.5 Gm Hfa.aer.ad 2 Puff IH PRN Q4-6HRS PRN 21 Days Ipratropium [place] 30 Ml [place] 1 [place] NS DAILY Duoneb 0.5-3(2.5) Mg/3 Ml (Albuterol/Ipratropium) 3 Ml Ampul.neb 3 Ml NEB PRN QID PRN Montelukast Sodium Tablet (Montelukast Sodium) 10 Mg Tablet 10 Mg GT DAILY PRN Multi Vitamin Daily (Multivitamin) 1 Each Tablet 1 Each GT DAILY Vitals/I & O Vital Sign - Last 24 Hours 12/30/19 12/30/19 12/30/19 12/30/19 15:14 15:44 15:56 17:22 Temp 98.2 98.2 Pulse 67 Resp 20 20 18 20 B/P (MAP) 106/65 (79) Pulse Ox 95 O2 Delivery Room Air Room Air Room Air Room Air 12/30/19 12/30/19 12/30/19 12/30/19 17:52 19:40 19:57 20:00 Temp 98.5 98.5 Pulse 60 Resp 20 18 B/P (MAP) 111/63 (79) Pulse Ox 96 96 O2 Delivery Room Air Room Air Room Air Room Air 12/30/19 12/30/19 12/30/19 12/30/19 20:27 22:34 22:36 23:04 Temp 98.7 98.7 Pulse 56 Resp 18 B/P (MAP) 105/65 (78) Pulse Ox 96 96 96 96 O2 Delivery Room Air Room Air Room Air Room Air 12/31/19 12/31/19 12/31/19 12/31/19 01:19 02:51 07:00 08:00 Temp 97.9 98.4 97.9 98.4 Pulse 71 68 Resp 18 18 B/P (MAP) 102/61 (75) 108/67 (81) Pulse Ox 96 98 97 O2 Delivery Room Air Room Air Room Air Room Air 12/31/19 12/31/19 12/31/19 12/31/19 09:23 09:30 10:55 11:00 Temp 98.0 98.0 Pulse 60 Resp 16 B/P (MAP) 100/69 (79) Pulse Ox 97 97 97 95 O2 Delivery Room Air Room Air Room Air Room Air 12/31/19 12/31/19 12/31/19 11:30 13:41 13:57 Pulse Ox 95 95 95 O2 Delivery Room Air Room Air Room Air Intake and Output 12/30/19 12/30/19 12/31/19 15:00 23:00 07:00 Intake Total 0 ml 0 ml Balance 0 ml 0 ml Justicifation of Admission Dx: Justifications for Admission: Justification of Admission Dx: Yes Sepsis: Bacteremia KRISTEN ESPAÑA MD Dec 31, 2019 14:21
--- NOTE | 2019-12-31 14:27 | NUR ---
Patient to IR for al-cath removal. Al-cath sent to lab for cultures. Vitals stable, patient tolerated well with no issues. Patient received sedation per Dr. Cartwright. Report called to LEATHA Wiley on and patient transferred back to [facility].
[2019-12-31] MEDS: DAPTOmycin (GENERIC) IVPB 440 MG in IV NORMAL SALINE 50ML 50 ML IV SCH (14:57)
--- NOTE | 2019-12-31 15:13 | RAD ---
12/31/2019 1:09 PM Removal of right internal jugular PowerPort Indication: Probable port infection Discussion: The risks and benefits of the procedure were discussed the patient. Informed consent was obtained. A timeout procedure was performed. The right chest was prepped and draped using maximum sterile barrier technique. All elements of maximal sterile barrier technique including the use of a cap, mask, sterile gown, sterile gloves, large sterile sheet, appropriate hand hygiene, and 2% chlorhexidine for cutaneous antisepsis (or acceptable alternative antiseptic per current guidelines) were followed for this procedure. 1% lidocaine was administered for local anesthesia. Small incision was made overlying the port reservoir. The reservoir and catheter removed intact. The pocket demonstrates no overt evidence of infection. Pre and post removal fluoroscopy confirms complete removal. The port was sent for Gram stain and culture. The wound is closed in layers using 4-0 Vicryl suture. Sterile dressings were applied. The procedures performed under conscious sedation including continuous cardiopulmonary monitoring via dedicated sedation nurse. [id number] sedation time: 15 minutes Fluoroscopy time 0.1 minutes Dose area product 0.1 [place] centimeters squared Impression: Removal of right internal jugular PowerPort
[2019-12-31] MEDS ORDERED: fentaNYL PF VIAL 100 MCG/2 ML VIAL IVP ONE (17:45)
[2020-01-01] VITALS (10 sets, daily range): BP systolic 106–120; BP diastolic 57–80
[2020-01-01] MEDS: fentaNYL PF VIAL 100 MCG/2 ML VIAL IVP PRN ×11 (00:23→22:33)
[2020-01-01] MEDS: AMINO AC 3%/ELECTROLYTE/GLYCER 1,000 ML IV SCH ×2 (05:44→20:59)
[2020-01-01 07:46] LABS: BASO % 0 % (0-3); EOS % 1 % (0-3); HEMATOCRIT 26.9 % (36.0-47.0); HEMOGLOBIN 9.3 g/dL (12.0-15.5); LYMPH # 1.6 x10^3/uL (1.0-4.8); LYMPH % 38 % (24-48); MEAN CORPUSCULAR HEMOGLOBIN 32 pg (25-35); MEAN CORPUSCULAR HGB CONC 35 g/dL (31-37); MEAN CORPUSCULAR VOLUME 93 fL (79-100); MONO # 0.4 x10^3/uL (0.0-1.1); MONO % 9 % (0-9); NEUT # 2.1 x10^3/uL (1.8-7.7); NEUT % 52 % (31-73); PLATELET COUNT 134 x10^3/uL (140-400); RED BLOOD COUNT 2.89 x10^6/uL (3.50-5.40); RED CELL DISTRIBUTION WIDTH 13.1 % (11.5-14.5); WHITE BLOOD COUNT 4.1 x10^3/uL (4.0-11.0)
[2020-01-01 08:04] LABS: CALCIUM 8.3 mg/dL (8.5-10.1); CREATININE 0.5 mg/dL (0.6-1.0); GFR 155.7; POTASSIUM 3.9 mmol/L (3.5-5.1)
[2020-01-01] MEDS: ONDANSETRON PF 4 MG/2 ML VIAL. IVP PRN ×2 (08:06→21:04)
--- NOTE | 2020-01-01 09:19 | CARD ---
MR#: [id number] Date of Study: 12/31/2019 Ordering Physician: ISAIAS ELI, Referring Physician: ISAIAS ELI, Tech: Lisset Castillo APPROVED REPORT EXAM: Two-dimensional and M-mode echocardiogram with Doppler and color Doppler. Other Information Quality : AverageHR: 64bpm INDICATION Bacteremia, STAPH Aureus 2D DIMENSIONS Left Atrium(2D)2.9 (1.6-4.0cm)IVSd1.0 (0.7-1.1cm) Aortic Root(2D)2.6 (2.0-3.7cm)LVDd4.2 (3.9-5.9cm) LVOT Diameter2.0 (1.8-2.4cm)PWd0.9 (0.7-1.1cm) LVDs3.0 (2.5-4.0cm)FS (%) 28.6 % SV44.0 mlLVEF(%)55.5 (>50%) Aortic Valve AoV Peak Jared.110.5cm/sAoV VTI28.9cm AO Peak GR.4.9mmHgLVOT VTI 21.56cm AO Mean GR.4mmHg Mitral Valve MV E Mxvmdydv29.4cm/sMV E Peak Gr.4mmHg MV DECEL [id number] A Rrccmtfj63.2cm/s MV E Mean Gr.2mmHgE/A Ratio2.5 TDI Lateral E' P. V17.18cm/sMedial E' P. V10.94cm/s E/Lateral E'4.9E/Medial E'7.7 Tricuspid Valve TR P. [id number]/sRAP [id number] TR Peak Gr.26juVtGKOT83aaWf Pulmonary Vein S1 Xdnosrqm53.7cm/sS2 Hmmcyvty84.11cm/s D2 Cbunvxll45.1cm/sPVa [id number] LEFT VENTRICLE The left ventricle is normal size. There is normal left ventricular wall thickness. The left ventricu lar systolic function is normal and the ejection fraction is mildly decreased. The Ejection Fraction is 50%. Septal motion suggestive of conduction defect. Mild global hypokinesis. Tissue Doppler imagin g reveals moderate left ventricular diastolic dysfunction. RIGHT VENTRICLE The right ventricle is normal size. There is normal right ventricular wall thickness. The right ventr icular systolic function is normal. ATRIA The left atrium size is normal. The right atrium size is normal. The interatrial septum is intact wit h no evidence for an atrial septal defect or patent foramen ovale as noted on 2-D or Doppler imaging. AORTIC VALVE The aortic valve is normal in structure and function. Doppler and Color Flow revealed no significant aortic regurgitation. Calculated aortic valve area is 2.27 cm2 with maximum pressure gradient of 6 mm Hg and mean pressure gradient of 4 mmHg. There is no significant aortic valvular stenosis. MITRAL VALVE The mitral valve is normal in structure and function. There is no evidence of mitral valve prolapse. There is no mitral valve stenosis. Doppler and Color-flow revealed trace mitral regurgitation. TRICUSPID VALVE The tricuspid valve is normal in structure and function. Doppler and Color Flow revealed trace tricus pid regurgitation with an estimated PAP of 28 mmHg. There is no tricuspid valve stenosis. PULMONIC VALVE The pulmonic valve is not well visualized. Doppler and Color Flow revealed no pulmonic valvular regur gitation. There is no pulmonic valvular stenosis. GREAT VESSELS The aortic root is normal in size. The IVC is normal in size and collapses >50% with inspiration. PERICARDIAL EFFUSION There is no evidence of significant pericardial effusion. Critical Notification Critical Value: No <Conclusion> The left ventricular systolic function is normal and the ejection fraction is mildly decreased. The E jection Fraction is 50%. Septal motion suggestive of conduction defect. Mild global hypokinesis. No significant valvular disease. Signed by : Yared Watson, Electronically Approved : 01/01/2020 09:19:06
--- NOTE | 2020-01-01 09:33 | NUR ---
SW following. Discussed with RN, pt had tara-cath removed 12/30 - sent for cultures. SW will continue to follow.
--- NOTE | 2020-01-01 09:44 | PDOC ---
Infectious Disease Note Subjective: Subjective Pt has pain at the Port-A-Cath removal site Nauseous which is chronic, no vomiting No fevers/chills or diarrhea Vital Signs: Vital Signs Vital Signs Date Time Temp Pulse Resp B/P (MAP) Pulse Ox O2 Delivery O2 Flow Rate FiO2 01/01/20 07:16 Room Air 01/01/20 07:00 98.9 64 16 112/72 (85) 99 98.9 12/31/19 17:45 2.0 Physical Exam: PHYSICAL EXAM GENERAL: Propped up in bed, alert awake HEENT: [place]. Oral cavity pink, dry. + bacterial overgrowth on the tongue NECK: Supple LUNGS: Clear. HEART: S1, S2 regular. ABDOMEN: Bowel sounds present, soft and nontender. J-tube clean EXTREMITIES: No edema or cyanosis. SKIN: without rash. NEUROLOGICAL: Alert oriented, x3 no focal neurologic deficit. Right-sided Port-A-Cath removed Medications: Inpatient Meds: Current Medications Medications (Trade) Dose Ordered Sig/Kel Start Time Stop Time Status Last Admin Dose Admin Acetaminophen (Tylenol) 650 mg PRN Q6HRS PRN 12/26/19 18:45 12/27/19 11:50 650 MG Amino Acids/ Glycerin/ Electrolytes 1,000 ml @ 75 mls/hr [id number] 12/27/19 11:30 01/01/20 05:44 75 MLS/HR Cefazolin Sodium/ Dextrose 50 ml @ 100 mls/hr Q8HRS 12/27/19 12:00 12/29/19 12:38 DC 12/29/19 05:55 100 MLS/HR Daptomycin 440 mg/ Sodium Chloride 50 ml @ 100 mls/hr Q24H 12/29/19 13:00 12/31/19 14:57 100 MLS/HR Diphenhydramine HCl (Benadryl) 25 mg 1X ONCE 12/26/19 16:15 12/26/19 16:16 DC 12/26/19 16:16 25 MG Fentanyl Citrate (Fentanyl 2ml Vial) 50 mcg 1X ONCE 12/31/19 17:45 12/31/19 17:46 DC 12/31/19 17:45 50 MCG Iohexol (Omnipaque 240 Mg/ml) 50 ml 1X ONCE 12/28/19 13:00 12/28/19 13:01 DC 12/28/19 12:52 15 ML Lidocaine HCl (Buffered Lidocaine 1%) 3 ml STK-MED ONCE 12/28/19 12:54 12/28/19 12:55 DC Lidocaine/ Epinephrine (LIDOCAINE 1%-EPI 1:100,000 Multi-Dose) 20 ml 1X ONCE 12/31/19 14:15 12/31/19 14:19 DC 12/31/19 14:15 5 ML Midazolam HCl (Versed) 2 mg 1X ONCE 12/31/19 14:15 12/31/19 14:19 DC 12/31/19 14:15 1 MG Ondansetron HCl (Zofran) 4 mg PRN Q6HRS PRN 12/26/19 18:45 01/01/20 08:06 4 MG Piperacillin Sod/ Tazobactam Sod 3.375 gm/Sodium Chloride 50 ml @ 100 mls/hr 1X ONCE 12/26/19 16:15 12/27/19 10:20 DC 12/26/19 16:15 100 MLS/HR Potassium Chloride/Water 100 ml @ 100 mls/hr Q1H 12/28/19 13:00 12/28/19 14:59 DC 12/28/19 18:41 100 MLS/HR Prochlorperazine Edisylate (Compazine) 10 mg PRN Q8HRS PRN 12/29/19 15:00 12/30/19 17:22 10 MG Sodium Chloride 1,000 ml @ 1,000 mls/hr 1X ONCE 12/26/19 15:30 12/26/19 16:29 DC 12/26/19 16:16 1,000 MLS/HR Vancomycin HCl (Vanco Per Pharmacy) 1 each PRN DAILY PRN 12/26/19 16:15 12/29/19 12:43 DC 12/29/19 12:34 1 EACH Vancomycin HCl (Vancomycin Trough Level) 1 each 1X ONCE 12/30/19 18:30 12/30/19 18:31 Cancel Vancomycin HCl 1.25 gm/Sodium Chloride 250 ml @ 250 mls/hr Q6H 12/29/19 10:00 12/29/19 12:41 DC 12/29/19 10:48 250 MLS/HR Vancomycin HCl 1.75 gm/Sodium Chloride 500 ml @ 250 mls/hr Q8H 12/29/19 19:00 12/29/19 12:40 DC Vancomycin HCl 1 gm/Sodium Chloride 250 ml @ 250 mls/hr Q8H 12/27/19 01:00 12/27/19 20:25 DC 12/27/19 18:09 250 MLS/HR Labs: Lab Laboratory Tests Test 01/01/20 07:15 White Blood Count 4.1 x10^3/uL (4.0-11.0) Red Blood Count 2.89 x10^6/uL (3.50-5.40) Hemoglobin 9.3 g/dL (12.0-15.5) Hematocrit 26.9 % (36.0-47.0) Mean Corpuscular Volume 93 fL (79-100) Mean Corpuscular Hemoglobin 32 pg (25-35) Mean Corpuscular Hemoglobin Concent 35 g/dL (31-37) Red Cell Distribution Width 13.1 % (11.5-14.5) Platelet Count 134 x10^3/uL (140-400) Neutrophils (%) (Auto) 52 % (31-73) Lymphocytes (%) (Auto) 38 % (24-48) Monocytes (%) (Auto) 9 % (0-9) Eosinophils (%) (Auto) 1 % (0-3) Basophils (%) (Auto) 0 % (0-3) Neutrophils # (Auto) 2.1 x10^3/uL (1.8-7.7) Lymphocytes # (Auto) 1.6 x10^3/uL (1.0-4.8) Monocytes # (Auto) 0.4 x10^3/uL (0.0-1.1) Eosinophils # (Auto) 0.0 x10^3/uL (0.0-0.7) Basophils # (Auto) 0.0 x10^3/uL (0.0-0.2) Sodium Level 140 mmol/L (136-145) Potassium Level 3.9 mmol/L (3.5-5.1) Chloride Level 104 mmol/L (98-107) Carbon Dioxide Level 28 mmol/L (21-32) Anion Gap 8 (6-14) Blood Urea Nitrogen 8 mg/dL (7-20) Creatinine 0.5 mg/dL (0.6-1.0) Estimated GFR (Cockcroft-Gault) 155.7 Glucose Level 84 mg/dL (70-99) Calcium Level 8.3 mg/dL (8.5-10.1) Creatine Kinase 27 U/L (26-192) Objective: Assessment: Fever - better Pancytopenia likely from sepsis improving 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 Repeat blood cultures December 29- so far Some redness and tenderness at the Port-A-Cath site. Recently placed on 11/25. Status post Port-A-Cath removal 12/31/2019 Gastroparesis, on total parenteral nutrition at home. s/p G-tube exchange and j-tube injection, 12/27 Plan: Plan of Care Continue daptomycin Monitor for abx toxicity F/u BC from 12/29 Consult cardiology for LAVELL Maintain aspiration precautions Port-A-Cath removed Repeat blood cultures in a.m. Discussed with nursing GAYLE RODRIGUEZ MD Jan 01, 2020 09:44
[2020-01-01] MEDS: PROCHLORPERAZINE 10 MG/2 ML VIAL. IVP PRN ×2 (10:49→22:32)
[2020-01-01] MEDS ORDERED: BENZOCAINE ONE 20% MUCOSAL SPRAY. (11:43)
[2020-01-01] MEDS ORDERED: LIDOCAINE 2% TOPICAL JELLY 30GM TUBE. TP ONE (11:43)
[2020-01-01] MEDS ORDERED: LIDOCAINE 2% VISCOUS 15 ML SOLUTION. ONE (11:43)
--- NOTE | 2020-01-01 12:27 | PDOC ---
Provider Note Provider Note 01/01/2020 1100 ID request for LAVELL to rule out endocarditis with noted MRSA bacteremia. Pt is AOX3. No past issues with esophagus but significnat for gastroparesis and currently has G tube. Pt is in no ditresse and no SOA. Discussed LAVELL, risks and benefits and agreeable to proceed. Justicifation of Admission Dx: Justifications for Admission: Justification of Admission Dx: Yes Sepsis: Bacteremia TOSHIA VILLANUEVA DIETARY SERVICE AIDE Jan 01, 2020 12:27
[2020-01-01] MEDS: DAPTOmycin (GENERIC) IVPB 440 MG in IV NORMAL SALINE 50ML 50 ML IV SCH (12:34)
[2020-01-01 13:19] LABS: U PREG PATIENT NEGATIVE (NEG)
[2020-01-01] MEDS ORDERED: PROPOFOL 10 MG/ML (20ML) VIAL. IV ONE (13:43)
--- NOTE | 2020-01-01 14:10 | PDOC ---
PROGRESS NOTES Date of Service: DATE: 01/01/20 TIME: 14:10 Chief Complaint Chief Complaint Sepsis 3/4 blood culture bottles positive for gram + cocci in clusters Bicytopenia Hypotension Severe idiopathic gastroparesis Blood culture positive with Staphylococcus, 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 39 MIN PT EXAM, CHART REVIEW, > 50% OF TIME SPENT WITH EXAM, CHART REVIEW, PT CARE COORDINATION History of Present Illness History of Present Illness 12/31. LAVELL today, cont current, plan replace port for nutrition, 12/31/2019 Patient seen and examined Laying in bed in minimal distress Complains of chills, much better, though, Chart reviewed Discussed with RN Vitals Vitals Vital Signs Date Time Temp Pulse Resp B/P (MAP) Pulse Ox O2 Delivery O2 Flow Rate FiO2 01/01/20 11:00 98.9 66 18 120/80 (93) 98 Room Air 98.9 01/01/20 08:30 2.0 Physical Exam Physical Exam GENERAL: Propped up in bed, alert awake HEENT: [place]. Oral cavity pink, dry. + bacterial overgrowth on the tongue NECK: Supple LUNGS: Clear. HEART: S1, S2 regular. ABDOMEN: Bowel sounds present, soft and nontender. J-tube clean EXTREMITIES: No edema or cyanosis. SKIN: without rash. NEUROLOGICAL: Alert oriented, x3 no focal neurologic deficit. Right-sided Port-A-Cath removed General: Alert, Oriented X3, Cooperative, No acute distress Heart: Regular rate, Normal S1, Normal S2 Lungs: Clear Abdomen: Normal bowel sounds, Soft, No tenderness, Other (g/j tubes in place) Extremities: No clubbing, No cyanosis Skin: Other (erythema to port site ) Labs LABS Laboratory Tests Test 01/01/20 07:15 01/01/20 13:00 White Blood Count 4.1 x10^3/uL (4.0-11.0) Red Blood Count 2.89 x10^6/uL (3.50-5.40) Hemoglobin 9.3 g/dL (12.0-15.5) Hematocrit 26.9 % (36.0-47.0) Mean Corpuscular Volume 93 fL (79-100) Mean Corpuscular Hemoglobin 32 pg (25-35) Mean Corpuscular Hemoglobin Concent 35 g/dL (31-37) Red Cell Distribution Width 13.1 % (11.5-14.5) Platelet Count 134 x10^3/uL (140-400) Neutrophils (%) (Auto) 52 % (31-73) Lymphocytes (%) (Auto) 38 % (24-48) Monocytes (%) (Auto) 9 % (0-9) Eosinophils (%) (Auto) 1 % (0-3) Basophils (%) (Auto) 0 % (0-3) Neutrophils # (Auto) 2.1 x10^3/uL (1.8-7.7) Lymphocytes # (Auto) 1.6 x10^3/uL (1.0-4.8) Monocytes # (Auto) 0.4 x10^3/uL (0.0-1.1) Eosinophils # (Auto) 0.0 x10^3/uL (0.0-0.7) Basophils # (Auto) 0.0 x10^3/uL (0.0-0.2) Sodium Level 140 mmol/L (136-145) Potassium Level 3.9 mmol/L (3.5-5.1) Chloride Level 104 mmol/L (98-107) Carbon Dioxide Level 28 mmol/L (21-32) Anion Gap 8 (6-14) Blood Urea Nitrogen 8 mg/dL (7-20) Creatinine 0.5 mg/dL (0.6-1.0) Estimated GFR (Cockcroft-Gault) 155.7 Glucose Level 84 mg/dL (70-99) Calcium Level 8.3 mg/dL (8.5-10.1) Creatine Kinase 27 U/L (26-192) Urine Test Negative (NEG) Assessment and Plan Assessmemt and Plan Problems Medical Problems: (1) Fever Status: Acute (2) Infection due to Port-A-Cath Status: Acute Comment Review of Relevant I have reviewed the following items lalo (where applicable) has been applied. Labs Laboratory Tests Test 12/31/19 05:30 01/01/20 07:15 01/01/20 13:00 White Blood Count 3.3 x10^3/uL (4.0-11.0) 4.1 x10^3/uL (4.0-11.0) Red Blood Count 2.82 x10^6/uL (3.50-5.40) 2.89 x10^6/uL (3.50-5.40) Hemoglobin 9.0 g/dL (12.0-15.5) 9.3 g/dL (12.0-15.5) Hematocrit 26.3 % (36.0-47.0) 26.9 % (36.0-47.0) Mean Corpuscular Volume 93 fL (79-100) 93 fL (79-100) Mean Corpuscular Hemoglobin 32 pg (25-35) 32 pg (25-35) Mean Corpuscular Hemoglobin Concent 34 g/dL (31-37) 35 g/dL (31-37) Red Cell Distribution Width 13.3 % (11.5-14.5) 13.1 % (11.5-14.5) Platelet Count 96 x10^3/uL (140-400) 134 x10^3/uL (140-400) Neutrophils (%) (Auto) 51 % (31-73) 52 % (31-73) Lymphocytes (%) (Auto) 39 % (24-48) 38 % (24-48) Monocytes (%) (Auto) 9 % (0-9) 9 % (0-9) Eosinophils (%) (Auto) 1 % (0-3) 1 % (0-3) Basophils (%) (Auto) 0 % (0-3) 0 % (0-3) Neutrophils # (Auto) 1.7 x10^3/uL (1.8-7.7) 2.1 x10^3/uL (1.8-7.7) Lymphocytes # (Auto) 1.3 x10^3/uL (1.0-4.8) 1.6 x10^3/uL (1.0-4.8) Monocytes # (Auto) 0.3 x10^3/uL (0.0-1.1) 0.4 x10^3/uL (0.0-1.1) Eosinophils # (Auto) 0.0 x10^3/uL (0.0-0.7) 0.0 x10^3/uL (0.0-0.7) Basophils # (Auto) 0.0 x10^3/uL (0.0-0.2) 0.0 x10^3/uL (0.0-0.2) Haptoglobin 239 mg/dL (33-278) Sodium Level 140 mmol/L (136-145) 140 mmol/L (136-145) Potassium Level 3.7 mmol/L (3.5-5.1) 3.9 mmol/L (3.5-5.1) Chloride Level 105 mmol/L (98-107) 104 mmol/L (98-107) Carbon Dioxide Level 26 mmol/L (21-32) 28 mmol/L (21-32) Anion Gap 9 (6-14) 8 (6-14) Blood Urea Nitrogen 8 mg/dL (7-20) 8 mg/dL (7-20) Creatinine 0.4 mg/dL (0.6-1.0) 0.5 mg/dL (0.6-1.0) Estimated GFR (Cockcroft-Gault) 201.5 155.7 Glucose Level 81 mg/dL (70-99) 84 mg/dL (70-99) Calcium Level 8.1 mg/dL (8.5-10.1) 8.3 mg/dL (8.5-10.1) Iron Level 28 ug/dL (50-170) Total Iron Binding Capacity 246 ug/dL (250-450) Iron Saturation 11 % (15-34) Lactate Dehydrogenase 153 U/L (81-234) Vitamin B12 Level 846 pg/mL (247-911) Creatine Kinase 27 U/L (26-192) Urine Test Negative (NEG) Laboratory Tests Test 01/01/20 07:15 01/01/20 13:00 White Blood Count 4.1 x10^3/uL (4.0-11.0) Red Blood Count 2.89 x10^6/uL (3.50-5.40) Hemoglobin 9.3 g/dL (12.0-15.5) Hematocrit 26.9 % (36.0-47.0) Mean Corpuscular Volume 93 fL (79-100) Mean Corpuscular Hemoglobin 32 pg (25-35) Mean Corpuscular Hemoglobin Concent 35 g/dL (31-37) Red Cell Distribution Width 13.1 % (11.5-14.5) Platelet Count 134 x10^3/uL (140-400) Neutrophils (%) (Auto) 52 % (31-73) Lymphocytes (%) (Auto) 38 % (24-48) Monocytes (%) (Auto) 9 % (0-9) Eosinophils (%) (Auto) 1 % (0-3) Basophils (%) (Auto) 0 % (0-3) Neutrophils # (Auto) 2.1 x10^3/uL (1.8-7.7) Lymphocytes # (Auto) 1.6 x10^3/uL (1.0-4.8) Monocytes # (Auto) 0.4 x10^3/uL (0.0-1.1) Eosinophils # (Auto) 0.0 x10^3/uL (0.0-0.7) Basophils # (Auto) 0.0 x10^3/uL (0.0-0.2) Sodium Level 140 mmol/L (136-145) Potassium Level 3.9 mmol/L (3.5-5.1) Chloride Level 104 mmol/L (98-107) Carbon Dioxide Level 28 mmol/L (21-32) Anion Gap 8 (6-14) Blood Urea Nitrogen 8 mg/dL (7-20) Creatinine 0.5 mg/dL (0.6-1.0) Estimated GFR (Cockcroft-Gault) 155.7 Glucose Level 84 mg/dL (70-99) Calcium Level 8.3 mg/dL (8.5-10.1) Creatine Kinase 27 U/L (26-192) Urine Test Negative (NEG) Microbiology 12/31/19 Gram Stain - Final, Resulted 12/31/19 Aerobic and Anaerobic Culture - Preliminary, Resulted 12/30/19 Blood Culture - Preliminary, Resulted NO GROWTH AFTER 2 DAYS Medications Current Medications Sodium Chloride 1,000 ml @ 1,000 mls/hr Q1H IV Last administered on 12/26/19at 14:52; Start 12/26/19 at 14:44; Stop 12/26/19 at 15:43; Status DC Acetaminophen (Tylenol) 1,000 mg 1X ONCE PO Last administered on 12/26/19at 14:52; Start 12/26/19 at 14:45; Stop 12/26/19 at 14:52; Status DC Fentanyl Citrate (Fentanyl 2ml Vial) 50 mcg 1X ONCE IVP Last administered on 12/26/19at 14:51; Start 12/26/19 at 14:45; Stop 12/26/19 at 14:52; Status DC Sodium Chloride 1,000 ml @ 1,000 mls/hr 1X ONCE IV Last administered on 12/26/19at 16:16; Start 12/26/19 at 15:30; Stop 12/26/19 at 16:29; Status DC Piperacillin Sod/ Tazobactam Sod 3.375 gm/Sodium Chloride 50 ml @ 100 mls/hr 1X ONCE IV Last administered on 12/26/19at 16:15; Start 12/26/19 at 16:15; Stop 12/27/19 at 10:20; Status DC Diphenhydramine HCl (Benadryl) 25 mg 1X ONCE IVP Last administered on 12/26/19at 16:16; Start 12/26/19 at 16:15; Stop 12/26/19 at 16:16; Status DC Vancomycin HCl (Vanco Per Pharmacy) 1 each PRN DAILY PRN MC SEE COMMENTS Last administered on 12/29/19at 12:34; Start 12/26/19 at 16:15; Stop 12/29/19 at 12:43; Status DC Vancomycin HCl 1.75 gm/Sodium Chloride 500 ml @ 250 mls/hr 1X ONCE IV Last administered on 12/26/19at 16:59; Start 12/26/19 at 17:00; Stop 12/26/19 at 18:59; Status DC Fentanyl Citrate (Fentanyl 2ml Vial) 50 mcg 1X ONCE IVP Last administered on 12/26/19at 16:59; Start 12/26/19 at 16:45; Stop 12/26/19 at 16:46; Status DC Vancomycin HCl 1 gm/Sodium Chloride 250 ml @ 250 mls/hr Q8H IV Last administered on 12/27/19at 18:09; Start 12/27/19 at 01:00; Stop 12/27/19 at 20:25; Status DC Vancomycin HCl (Vancomycin Trough Level) 1 each 1X ONCE MC Last administered on 12/27/19at 16:30; Start 12/27/19 at 16:30; Stop 12/27/19 at 16:31; Status DC Fentanyl Citrate (Fentanyl 2ml Vial) 50 mcg PRN Q2HR PRN IVP PAIN Last administered on 01/01/20at 12:56; Start 12/26/19 at 18:45 Ondansetron HCl (Zofran) 4 mg PRN Q6HRS PRN IVP NAUSEA/VOMITING 1ST CHOICE Last administered on 01/01/20at 08:06; Start 12/26/19 at 18:45 Prochlorperazine Edisylate (Compazine) 10 mg PRN Q8HRS PRN IM NAUSEA/VOMITING Last administered on 12/28/19at 12:28; Start 12/26/19 at 18:45; Stop 12/29/19 at 14:52; Status DC Acetaminophen (Tylenol) 650 mg PRN Q6HRS PRN PEG MILD PAIN / TEMP > 100.3'F Last administered on 12/27/19at 11:50; Start 12/26/19 at 18:45 Cefazolin Sodium/ Dextrose 50 ml @ 100 mls/hr Q8HRS IV ; Start 12/27/19 at 11:00; Status Cancel Cefazolin Sodium/ Dextrose 50 ml @ 100 mls/hr Q8HRS IV Last administered on 12/29/19at 05:55; Start 12/27/19 at 12:00; Stop 12/29/19 at 12:38; Status DC Amino Acids/ Glycerin/ Electrolytes 1,000 ml @ 75 mls/hr [id number] IV Last administered on 01/01/20at 05:44; Start 12/27/19 at 11:30 Vancomycin HCl 1.25 gm/Sodium Chloride 250 ml @ 250 mls/hr Q8H IV Last administered on 12/29/19at 02:00; Start 12/28/19 at 02:00; Stop 12/29/19 at 10:05; Status DC Vancomycin HCl (Vancomycin Trough Level) 1 each 1X ONCE MC Last administered on 12/29/19at 09:30; Start 12/29/19 at 09:30; Stop 12/29/19 at 09:31; Status DC Iohexol (Omnipaque 240 Mg/ml) 50 ml STK-MED ONCE .ROUTE ; Start 12/28/19 at 11:26; Stop 12/28/19 at 11:26; Status DC Midazolam HCl (Versed) 2 mg STK-MED ONCE .ROUTE ; Start 12/28/19 at 12:21; Stop 12/28/19 at 12:22; Status DC Fentanyl Citrate (Fentanyl 2ml Vial) 100 mcg STK-MED ONCE .ROUTE ; Start 12/28/19 at 12:21; Stop 12/28/19 at 12:22; Status DC Potassium Chloride/Water 100 ml @ 100 mls/hr Q1H IV Last administered on 12/28/19at 18:41; Start 12/28/19 at 13:00; Stop 12/28/19 at 14:59; Status DC Lidocaine HCl (Buffered Lidocaine 1%) 3 ml 1X ONCE IJ Last administered on 12/28/19at 12:50; Start 12/28/19 at 13:00; Stop 12/28/19 at 13:01; Status DC Midazolam HCl (Versed) 2 mg 1X ONCE IV Last administered on 12/28/19at 12:45; Start 12/28/19 at 13:00; Stop 12/28/19 at 13:01; Status DC Iohexol (Omnipaque 240 Mg/ml) 50 ml 1X ONCE IJ Last administered on 12/28/19at 12:52; Start 12/28/19 at 13:00; Stop 12/28/19 at 13:01; Status DC Lidocaine HCl (Buffered Lidocaine 1%) 3 ml STK-MED ONCE .ROUTE ; Start 12/28/19 at 12:54; Stop 12/28/19 at 12:55; Status DC Fentanyl Citrate (Fentanyl 2ml Vial) 100 mcg 1X ONCE IV Last administered on 12/28/19at 12:50; Start 12/28/19 at 13:15; Stop 12/28/19 at 13:16; Status DC Vancomycin HCl 1.25 gm/Sodium Chloride 250 ml @ 250 mls/hr Q6H IV ; Start 12/29/19 at 10:00; Status Cancel Vancomycin HCl 1.25 gm/Sodium Chloride 250 ml @ 250 mls/hr Q6H IV ; Start 12/29/19 at 10:08; Status Cancel Vancomycin HCl 1.25 gm/Sodium Chloride 250 ml @ 250 mls/hr Q6H IV Last administered on 12/29/19at 10:48; Start 12/29/19 at 10:00; Stop 12/29/19 at 12:41; Status DC Vancomycin HCl 1.75 gm/Sodium Chloride 500 ml @ 250 mls/hr Q8H IV ; Start 12/29/19 at 19:00; Stop 12/29/19 at 12:40; Status DC Vancomycin HCl (Vancomycin Trough Level) 1 each 1X ONCE MC ; Start 12/30/19 at 18:30; Stop 12/30/19 at 18:31; Status Cancel Daptomycin 440 mg/ Sodium Chloride 50 ml @ 100 mls/hr Q24H IV Last adm inistered on 01/01/20at 12:34; Start 12/29/19 at 13:00 Prochlorperazine Edisylate (Compazine) 10 mg PRN Q8HRS PRN IVP NAUSEA/VOMITING 2ND CHOICE Last administered on 01/01/20at 10:49; Start 12/29/19 at 15:00 Lidocaine/ Epinephrine (LIDOCAINE 1%-EPI 1:100,000 Multi-Dose) 20 ml STK-MED ONCE .ROUTE ; Start 12/31/19 at 13:28; Stop 12/31/19 at 13:28; Status DC Midazolam HCl (Versed) 2 mg STK-MED ONCE .ROUTE ; Start 12/31/19 at 14:03; Stop 12/31/19 at 14:04; Status DC Fentanyl Citrate (Fentanyl 2ml Vial) 100 mcg STK-MED ONCE .ROUTE ; Start 12/31/19 at 14:04; Stop 12/31/19 at 14:04; Status DC Midazolam HCl (Versed) 2 mg 1X ONCE IV Last administered on 12/31/19at 14:15; Start 12/31/19 at 14:15; Stop 12/31/19 at 14:19; Status DC Fentanyl Citrate (Fentanyl 2ml Vial) 100 mcg 1X ONCE IV Last administered on 12/31/19at 14:15; Start 12/31/19 at 14:15; Stop 12/31/19 at 14:19; Status DC Lidocaine/ Epinephrine (LIDOCAINE 1%-EPI 1:100,000 Multi-Dose) 20 ml 1X ONCE INJ Last administered on 12/31/19at 14:15; Start 12/31/19 at 14:15; Stop 12/31/19 at 14:19; Status DC Fentanyl Citrate (Fentanyl 2ml Vial) 50 mcg 1X ONCE IVP Last administered on 12/31/19at 17:45; Start 12/31/19 at 17:45; Stop 12/31/19 at 17:46; Status DC Lidocaine HCl (Viscous Lidocaine) 15 ml STK-MED ONCE .ROUTE ; Start 01/01/20 at 11:43; Stop 01/01/20 at 11:43; Status DC Lidocaine HCl (Xylocaine 2% Topical 30gm Tube) 30 joy STK-MED ONCE TP ; Start 01/01/20 at 11:43; Stop 01/01/20 at 11:43; Status DC Benzocaine (Hurricaine One) 1 spray STK-MED ONCE .ROUTE ; Start 01/01/20 at 11:43; Stop 01/01/20 at 11:43; Status DC Propofol (Diprivan) 200 mg STK-MED ONCE IV ; Start 01/01/20 at 13:43; Stop 01/01/20 at 13:44; Status DC Active Scripts Active [Tpn Per Pharmacy] 1 EACH Each 1 Each MC PRN DAILY PRN 30 Days Tpn Electrolytes Vial (Sodium/K+/Mag/Ca/Chlor/Acetate) 20 Ml Vial 20 Ml IV DAILY06 30 Days Metoclopramide Hcl 5 Mg/1 Ml Vial 10 Mg IVP PRN Q6HRS PRN 14 Days [Pantoprazole Iv Push] 40 MG Vial 40 Mg IVP BIDAC 30 Days Ondansetron Hcl 4 Mg/2 Ml Vial (Ondansetron Hcl/Pf) 4 Mg/2 Ml Vial 4 Mg IVP PRN Q6HRS PRN 30 Days Prochlorperazine Edisylate 10 Mg/2 Ml Vial 10 Mg IV PRN Q6HRS PRN 14 Days Milk Of Magnesia (Magnesium Hydroxide) 400 Mg/5 Ml Oral.susp 2,400 Mg JT DAILY 30 Days Enemeez (Docusate Sodium) 283 Mg/5 Ml Enema 283 Mg IA PRN DAILY PRN 30 Days Bisacodyl 10 Mg Supp.rect 10 Mg IA PRN DAILY PRN 30 Days Nystatin 100,000 Unit/1 Ml Oral.susp 5 Ml SWSW [id number] 10 Days Hydrocodone-Apap 7.5-325/15 Soln (Hydrocodone Bit/Acetaminophen) 15 Ml Solution 15 Ml JT PRN Q6HRS PRN Reported Metoprolol Tartrate 50 Mg Tablet 1 Tab PO BID Advair Hfa 230-21 Mcg Inhaler (Fluticasone/Salmeterol) 12 Gm Hfa.aer.ad 1 Inh IH BID Dicyclomine Hcl 20 Mg Tablet 20 Mg GT PRN QID PRN Olopatadine HCl 5 Ml Drops 0.1 % OP PRN DAILY PRN Promethazine Hcl 12.5 Mg Tablet 25 Mg GT Q6H PRN Trazodone Hcl 50 Mg Tablet 50 Mg GT HS Coq-10 (Ubidecarenone) 100 Mg Capsule 200 Mg GT DAILY Vitamin D3 (Cholecalciferol (Vitamin D3)) 4,000 Unit Capsule 2,000 Unit PO HS Xyzal (Levocetirizine Dihydrochloride) 5 Mg Tablet 5 Mg GT HS Proair Hfa (Albuterol Sulfate) 8.5 Gm Hfa.aer.ad 2 Puff IH PRN Q4-6HRS PRN 21 Days Ipratropium [place] 30 Ml [place] 1 [place] NS DAILY Duoneb 0.5-3(2.5) Mg/3 Ml (Albuterol/Ipratropium) 3 Ml Ampul.neb 3 Ml NEB PRN QID PRN Montelukast Sodium Tablet (Montelukast Sodium) 10 Mg Tablet 10 Mg GT DAILY PRN Multi Vitamin Daily (Multivitamin) 1 Each Tablet 1 Each GT DAILY Vitals/I & O Vital Sign - Last 24 Hours 12/31/19 12/31/19 12/31/19 12/31/19 14:15 14:30 14:33 14:45 Temp 97.6 97.6 Pulse 76 67 66 Resp 14 18 14 B/P (MAP) 120/79 (93) 138/60 (86) Pulse Ox 100 99 98 99 O2 Delivery Nasal Cannula Room Air Room Air Room Air O2 Flow Rate 2.0 12/31/19 12/31/19 12/31/19 12/31/19 15:00 15:15 15:30 16:05 Pulse 73 72 74 B/P (MAP) 99/55 (70) 102/63 (76) 103/66 (78) Pulse Ox 95 97 96 98 O2 Delivery Room Air Room Air Room Air Room Air O2 Flow Rate 2.0 12/31/19 12/31/19 12/31/19 12/31/19 16:09 16:13 17:04 17:45 Pulse Ox 98 98 98 98 O2 Delivery Room Air Room Air Room Air Room Air O2 Flow Rate 2.0 2.0 2.0 2.0 12/31/19 12/31/19 12/31/19 12/31/19 19:00 19:21 19:30 20:00 Temp 98.5 98.5 Pulse 63 Resp 18 B/P (MAP) 113/75 (88) Pulse Ox 98 O2 Delivery Room Air Room Air Room Air Room Air 12/31/19 12/31/19 12/31/19 01/01/20 21:50 22:20 23:00 00:23 Temp 98.4 98.4 Pulse 68 Resp 18 B/P (MAP) 103/66 (78) Pulse Ox 97 O2 Delivery Room Air Room Air Room Air Room Air 01/01/20 01/01/20 01/01/20 01/01/20 00:54 03:00 03:06 03:41 Temp 98.1 98.1 Pulse 66 Resp 18 B/P (MAP) 109/72 (84) Pulse Ox 96 O2 Delivery Room Air Room Air Room Air Room Air 01/01/20 01/01/20 01/01/20 01/01/20 05:39 06:15 07:00 07:16 Temp 98.9 98.9 Pulse 64 Resp 16 B/P (MAP) 112/72 (85) Pulse Ox 99 O2 Delivery Room Air Room Air Room Air Room Air 01/01/20 01/01/20 01/01/20 08:30 10:48 11:00 Temp 98.9 98.9 Pulse 66 Resp 20 18 B/P (MAP) 120/80 (93) Pulse Ox 99 98 O2 Delivery Room Air Room Air O2 Flow Rate 2.0 Intake and Output 12/31/19 12/31/19 01/01/20 15:00 23:00 07:00 Intake Total 120 ml Output Total 800 ml Balance 120 ml -800 ml Justicifation of Admission Dx: Justifications for Admission: Justification of Admission Dx: Yes Sepsis: Bacteremia KRISTEN ESPAÑA MD Jan 01, 2020 14:10
[2020-01-01] MEDS ORDERED: IV RINGERS,LACTATED 1000ML 1,000 ML IV SCH (14:14)
--- NOTE | 2020-01-01 19:23 | NUR ---
Sakina has had a fair day/ iv site was changed to the left lateral forearm. pain has continued to be 6-9 with fentanyl given. she has had zofran x1 and compazine x1. she went to surgery for a LAVELL today and tolerated fair
[2020-01-02] MEDS: fentaNYL PF VIAL 100 MCG/2 ML VIAL IVP PRN ×11 (00:40→22:20)
[2020-01-02 03:00] VITALS: BP 117/61
[2020-01-02] MEDS: ONDANSETRON PF 4 MG/2 ML VIAL. IVP PRN ×2 (03:27→18:13)
[2020-01-02 06:57] LABS: BASO % 0 % (0-3); EOS % 1 % (0-3); HEMATOCRIT 27.6 % (36.0-47.0); HEMOGLOBIN 9.7 g/dL (12.0-15.5); LYMPH # 1.5 x10^3/uL (1.0-4.8); LYMPH % 28 % (24-48); MEAN CORPUSCULAR HEMOGLOBIN 33 pg (25-35); MEAN CORPUSCULAR HGB CONC 35 g/dL (31-37); MEAN CORPUSCULAR VOLUME 93 fL (79-100); MONO # 0.4 x10^3/uL (0.0-1.1); MONO % 8 % (0-9); NEUT # 3.4 x10^3/uL (1.8-7.7); NEUT % 63 % (31-73); PLATELET COUNT 163 x10^3/uL (140-400); RED BLOOD COUNT 2.96 x10^6/uL (3.50-5.40); RED CELL DISTRIBUTION WIDTH 13.3 % (11.5-14.5); WHITE BLOOD COUNT 5.3 x10^3/uL (4.0-11.0)
[2020-01-02 07:00] VITALS: BP 101/58
[2020-01-02 07:08] LABS: CALCIUM 8.5 mg/dL (8.5-10.1); CREATININE 0.5 mg/dL (0.6-1.0); GFR 155.7; POTASSIUM 3.9 mmol/L (3.5-5.1)
--- NOTE | 2020-01-02 09:31 | PDOC ---
Infectious Disease Note Subjective: Subjective Pt has pain at the Port-A-Cath removal site but improving Nauseous which is chronic, no vomiting No fevers/chills or diarrhea Vital Signs: Vital Signs Vital Signs Date Time Temp Pulse Resp B/P (MAP) Pulse Ox O2 Delivery O2 Flow Rate FiO2 01/02/20 08:36 16 Room Air 01/02/20 07:00 97.8 64 101/58 (72) 95 97.8 01/01/20 14:53 4 Physical Exam: PHYSICAL EXAM GENERAL: Propped up in bed, alert awake HEENT: [place]. Oral cavity pink, dry. + bacterial overgrowth on the tongue NECK: Supple LUNGS: Clear. HEART: S1, S2 regular. ABDOMEN: Bowel sounds present, soft and nontender. J-tube clean EXTREMITIES: No edema or cyanosis. SKIN: without rash. NEUROLOGICAL: Alert oriented, x3 no focal neurologic deficit. Right-sided Port-A-Cath removed Medications: Inpatient Meds: Current Medications Medications (Trade) Dose Ordered Sig/Kel Start Time Stop Time Status Last Admin Dose Admin Acetaminophen (Tylenol) 650 mg PRN Q6HRS PRN 12/26/19 18:45 12/27/19 11:50 650 MG Amino Acids/ Glycerin/ Electrolytes 1,000 ml @ 75 mls/hr [id number] 12/27/19 11:30 01/01/20 20:59 75 MLS/HR Benzocaine (Hurricaine One) 1 spray STK-MED ONCE 01/01/20 11:43 01/01/20 11:43 DC Cefazolin Sodium/ Dextrose 50 ml @ 100 mls/hr Q8HRS 12/27/19 12:00 12/29/19 12:38 DC 12/29/19 05:55 100 MLS/HR Daptomycin 440 mg/ Sodium Chloride 50 ml @ 100 mls/hr Q24H 12/29/19 13:00 01/01/20 12:34 100 MLS/HR Diphenhydramine HCl (Benadryl) 25 mg 1X ONCE 12/26/19 16:15 12/26/19 16:16 DC 12/26/19 16:16 25 MG Fentanyl Citrate (Fentanyl 2ml Vial) 50 mcg 1X ONCE 12/31/19 17:45 12/31/19 17:46 DC 12/31/19 17:45 50 MCG Iohexol (Omnipaque 240 Mg/ml) 50 ml 1X ONCE 12/28/19 13:00 12/28/19 13:01 DC 12/28/19 12:52 15 ML Lidocaine HCl (Buffered Lidocaine 1%) 3 ml STK-MED ONCE 12/28/19 12:54 12/28/19 12:55 DC Lidocaine HCl (Viscous Lidocaine) 15 ml STK-MED ONCE 01/01/20 11:43 01/01/20 11:43 DC Lidocaine HCl (Xylocaine 2% Topical 30gm Tube) 30 joy STK-MED ONCE 01/01/20 11:43 01/01/20 11:43 DC Lidocaine/ Epinephrine (LIDOCAINE 1%-EPI 1:100,000 Multi-Dose) 20 ml 1X ONCE 12/31/19 14:15 12/31/19 14:19 DC 12/31/19 14:15 5 ML Midazolam HCl (Versed) 2 mg 1X ONCE 12/31/19 14:15 12/31/19 14:19 DC 12/31/19 14:15 1 MG Ondansetron HCl (Zofran) 4 mg PRN Q6HRS PRN 12/26/19 18:45 01/02/20 03:27 4 MG Piperacillin Sod/ Tazobactam Sod 3.375 gm/Sodium Chloride 50 ml @ 100 mls/hr 1X ONCE 12/26/19 16:15 12/27/19 10:20 DC 12/26/19 16:15 100 MLS/HR Potassium Chloride/Water 100 ml @ 100 mls/hr Q1H 12/28/19 13:00 12/28/19 14:59 DC 12/28/19 18:41 100 MLS/HR Prochlorperazine Edisylate (Compazine) 10 mg PRN Q8HRS PRN 12/29/19 15:00 01/01/20 22:32 10 MG Propofol (Diprivan) 200 mg STK-MED ONCE 01/01/20 13:43 01/01/20 13:44 DC Ringer's Solution 1,000 ml @ 50 mls/hr Q20H 01/01/20 14:14 01/02/20 02:13 DC Sodium Chloride 1,000 ml @ 1,000 mls/hr 1X ONCE 12/26/19 15:30 12/26/19 16:29 DC 12/26/19 16:16 1,000 MLS/HR Vancomycin HCl (Vanco Per Pharmacy) 1 each PRN DAILY PRN 12/26/19 16:15 12/29/19 12:43 DC 12/29/19 12:34 1 EACH Vancomycin HCl (Vancomycin Trough Level) 1 each 1X ONCE 12/30/19 18:30 12/30/19 18:31 Cancel Vancomycin HCl 1.25 gm/Sodium Chloride 250 ml @ 250 mls/hr Q6H 12/29/19 10:00 12/29/19 12:41 DC 12/29/19 10:48 250 MLS/HR Vancomycin HCl 1.75 gm/Sodium Chloride 500 ml @ 250 mls/hr Q8H 12/29/19 19:00 12/29/19 12:40 DC Vancomycin HCl 1 gm/Sodium Chloride 250 ml @ 250 mls/hr Q8H 12/27/19 01:00 12/27/19 20:25 DC 12/27/19 18:09 250 MLS/HR Labs: Lab Laboratory Tests Test 01/01/20 13:00 01/02/20 06:45 Urine Test Negative (NEG) White Blood Count 5.3 x10^3/uL (4.0-11.0) Red Blood Count 2.96 x10^6/uL (3.50-5.40) Hemoglobin 9.7 g/dL (12.0-15.5) Hematocrit 27.6 % (36.0-47.0) Mean Corpuscular Volume 93 fL (79-100) Mean Corpuscular Hemoglobin 33 pg (25-35) Mean Corpuscular Hemoglobin Concent 35 g/dL (31-37) Red Cell Distribution Width 13.3 % (11.5-14.5) Platelet Count 163 x10^3/uL (140-400) Neutrophils (%) (Auto) 63 % (31-73) Lymphocytes (%) (Auto) 28 % (24-48) Monocytes (%) (Auto) 8 % (0-9) Eosinophils (%) (Auto) 1 % (0-3) Basophils (%) (Auto) 0 % (0-3) Neutrophils # (Auto) 3.4 x10^3/uL (1.8-7.7) Lymphocytes # (Auto) 1.5 x10^3/uL (1.0-4.8) Monocytes # (Auto) 0.4 x10^3/uL (0.0-1.1) Eosinophils # (Auto) 0.0 x10^3/uL (0.0-0.7) Basophils # (Auto) 0.0 x10^3/uL (0.0-0.2) Sodium Level 140 mmol/L (136-145) Potassium Level 3.9 mmol/L (3.5-5.1) Chloride Level 103 mmol/L (98-107) Carbon Dioxide Level 27 mmol/L (21-32) Anion Gap 10 (6-14) Blood Urea Nitrogen 9 mg/dL (7-20) Creatinine 0.5 mg/dL (0.6-1.0) Estimated GFR (Cockcroft-Gault) 155.7 Glucose Level 89 mg/dL (70-99) Calcium Level 8.5 mg/dL (8.5-10.1) Objective: Assessment: 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 Status post Port-A-Cath removal 12/31/2019 Cath tip positive Repeat blood culture negative from 12/29 Follow-up blood culture after cath removed from 01/01 Fever - better Pancytopenia likely from sepsis improving Gastroparesis, on total parenteral nutrition at home. s/p G-tube exchange and j-tube injection, 12/27 Plan: Plan of Care Continue daptomycin CK 27 from 12/31 Monitor for abx toxicity F/u BC from 12/29 and 01/01 Follow-up results for LAVELL Maintain aspiration precautions Hold Port-A-Cath insertion for now GAYLE RODRIGUEZ MD Jan 02, 2020 09:31
--- NOTE | 2020-01-02 09:58 | NUR ---
SW following. Discussed with RN, pt had LAVELL 12/31, port-a-cath removed, cultures pending. Testing to ascertain if infection travelled to pt's heart or not. SW will continue to follow.
[2020-01-02] MEDS: AMINO AC 3%/ELECTROLYTE/GLYCER 1,000 ML IV SCH ×2 (10:37→23:13)
[2020-01-02 11:00] VITALS: BP 107/63
--- NOTE | 2020-01-02 12:38 | CARD ---
MR#: [id number] Date of Study: 01/01/2020 Ordering Physician: DARIUS NOLASCO Referring Physician: June BAJWA: Ayana Mancini RDCS APPROVED REPORT EXAM: Transesophageal echocardiogram with color flow Doppler. INDICATION Infection:Rule out subacute bacterial endocarditis PROCEDURE After obtaining informed consent, patient underwent transesophageal echo in the PACU. Type of Sedation : General Anesthesia Sedation was administered by Wilbur Watson CRNA. Sedation was achieved with Propofol 280 mg intravenously. Transesophageal probe was inserted and advanced into esophagus by Darius Nolasco MD. The LAVELL was performed without complications. Throughout the procedure, the blood pressure, pulse oximetry, cardiac rhythm, and rate were monitored . The patient tolerated the procedure without adverse effects. Recovery from general anesthesia was une ventful and vital signs were stable. LEFT VENTRICLE The left ventricular systolic function is normal. The Ejection Fraction is 55-60%. There is normal LV segmental wall motion. ATRIA The interatrial septum is intact with no evidence for an atrial septal defect or patent foramen ovale as noted on 2-D or Doppler imaging. There is no thrombus noted in the left atrial appendage. AORTIC VALVE The aortic valve is normal in structure and function. Doppler and Color Flow revealed no significant aortic regurgitation. There is no aortic valvular vegetation. MITRAL VALVE The mitral valve is normal in structure and function. There is no evidence of mitral valve prolapse o r vegetation. Doppler and Color Flow revealed no mitral valve regurgitation noted. TRICUSPID VALVE The tricuspid valve is normal in structure and function. There is no tricuspid valve prolapse or vege tation. PULMONIC VALVE The pulmonic valve is not well visualized. PERICARDIAL EFFUSION There is no evidence of significant pericardial effusion. Critical Notification Critical Value: No <Conclusion> The left ventricular systolic function is normal. The Ejection Fraction is 55-60%. There is normal LV segmental wall motion. There is no evidence of significant pericardial effusion. No intracardiac vegetation or thrombus. Signed by : Darius Nolasco, Electronically Approved : 01/02/2020 12:37:56
[2020-01-02] MEDS: DAPTOmycin (GENERIC) IVPB 440 MG in IV NORMAL SALINE 50ML 50 ML IV SCH (12:39)
--- NOTE | 2020-01-02 13:37 | PDOC ---
PROGRESS NOTES Date of Service: DATE: 01/02/20 TIME: 13:37 Chief Complaint Chief Complaint Sepsis 3/4 blood culture bottles positive for gram + cocci in clusters Bicytopenia Hypotension Severe idiopathic gastroparesis Blood culture positive with Staphylococcus, 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 39 MIN PT EXAM, CHART REVIEW, > 50% OF TIME SPENT WITH EXAM, CHART REVIEW, PT CARE COORDINATION History of Present Illness History of Present Illness 01/11. cont current , feels well, no event 12/31. LAVELL today, cont current, plan replace port for nutrition, 12/31/2019 Patient seen and examined Laying in bed in minimal distress Complains of chills, much better, though, Chart reviewed Discussed with RN Vitals Vitals Vital Signs Date Time Temp Pulse Resp B/P (MAP) Pulse Ox O2 Delivery O2 Flow Rate FiO2 01/02/20 12:38 16 01/02/20 11:00 98.2 65 107/63 (78) 96 Room Air 98.2 01/01/20 14:53 4 Physical Exam Physical Exam GENERAL: Propped up in bed, alert awake HEENT: [place]. Oral cavity pink, dry. + bacterial overgrowth on the tongue NECK: Supple LUNGS: Clear. HEART: S1, S2 regular. ABDOMEN: Bowel sounds present, soft and nontender. J-tube clean EXTREMITIES: No edema or cyanosis. SKIN: without rash. NEUROLOGICAL: Alert oriented, x3 no focal neurologic deficit. Right-sided Port-A-Cath removed General: Alert, Oriented X3, Cooperative, No acute distress Heart: Regular rate, Normal S1, Normal S2 Lungs: Clear Abdomen: Normal bowel sounds, Soft, No tenderness, Other (g/j tubes in place) Extremities: No clubbing, No cyanosis Skin: Other (erythema to port site ) Labs LABS Laboratory Tests Test 01/02/20 06:45 White Blood Count 5.3 x10^3/uL (4.0-11.0) Red Blood Count 2.96 x10^6/uL (3.50-5.40) Hemoglobin 9.7 g/dL (12.0-15.5) Hematocrit 27.6 % (36.0-47.0) Mean Corpuscular Volume 93 fL (79-100) Mean Corpuscular Hemoglobin 33 pg (25-35) Mean Corpuscular Hemoglobin Concent 35 g/dL (31-37) Red Cell Distribution Width 13.3 % (11.5-14.5) Platelet Count 163 x10^3/uL (140-400) Neutrophils (%) (Auto) 63 % (31-73) Lymphocytes (%) (Auto) 28 % (24-48) Monocytes (%) (Auto) 8 % (0-9) Eosinophils (%) (Auto) 1 % (0-3) Basophils (%) (Auto) 0 % (0-3) Neutrophils # (Auto) 3.4 x10^3/uL (1.8-7.7) Lymphocytes # (Auto) 1.5 x10^3/uL (1.0-4.8) Monocytes # (Auto) 0.4 x10^3/uL (0.0-1.1) Eosinophils # (Auto) 0.0 x10^3/uL (0.0-0.7) Basophils # (Auto) 0.0 x10^3/uL (0.0-0.2) Sodium Level 140 mmol/L (136-145) Potassium Level 3.9 mmol/L (3.5-5.1) Chloride Level 103 mmol/L (98-107) Carbon Dioxide Level 27 mmol/L (21-32) Anion Gap 10 (6-14) Blood Urea Nitrogen 9 mg/dL (7-20) Creatinine 0.5 mg/dL (0.6-1.0) Estimated GFR (Cockcroft-Gault) 155.7 Glucose Level 89 mg/dL (70-99) Calcium Level 8.5 mg/dL (8.5-10.1) Assessment and Plan Assessmemt and Plan Problems Medical Problems: (1) Fever Status: Acute (2) Infection due to Port-A-Cath Status: Acute Comment Review of Relevant I have reviewed the following items lalo (where applicable) has been applied. Labs Laboratory Tests Test 01/01/20 07:15 01/01/20 13:00 01/02/20 06:45 White Blood Count 4.1 x10^3/uL (4.0-11.0) 5.3 x10^3/uL (4.0-11.0) Red Blood Count 2.89 x10^6/uL (3.50-5.40) 2.96 x10^6/uL (3.50-5.40) Hemoglobin 9.3 g/dL (12.0-15.5) 9.7 g/dL (12.0-15.5) Hematocrit 26.9 % (36.0-47.0) 27.6 % (36.0-47.0) Mean Corpuscular Volume 93 fL (79-100) 93 fL (79-100) Mean Corpuscular Hemoglobin 32 pg (25-35) 33 pg (25-35) Mean Corpuscular Hemoglobin Concent 35 g/dL (31-37) 35 g/dL (31-37) Red Cell Distribution Width 13.1 % (11.5-14.5) 13.3 % (11.5-14.5) Platelet Count 134 x10^3/uL (140-400) 163 x10^3/uL (140-400) Neutrophils (%) (Auto) 52 % (31-73) 63 % (31-73) Lymphocytes (%) (Auto) 38 % (24-48) 28 % (24-48) Monocytes (%) (Auto) 9 % (0-9) 8 % (0-9) Eosinophils (%) (Auto) 1 % (0-3) 1 % (0-3) Basophils (%) (Auto) 0 % (0-3) 0 % (0-3) Neutrophils # (Auto) 2.1 x10^3/uL (1.8-7.7) 3.4 x10^3/uL (1.8-7.7) Lymphocytes # (Auto) 1.6 x10^3/uL (1.0-4.8) 1.5 x10^3/uL (1.0-4.8) Monocytes # (Auto) 0.4 x10^3/uL (0.0-1.1) 0.4 x10^3/uL (0.0-1.1) Eosinophils # (Auto) 0.0 x10^3/uL (0.0-0.7) 0.0 x10^3/uL (0.0-0.7) Basophils # (Auto) 0.0 x10^3/uL (0.0-0.2) 0.0 x10^3/uL (0.0-0.2) Sodium Level 140 mmol/L (136-145) 140 mmol/L (136-145) Potassium Level 3.9 mmol/L (3.5-5.1) 3.9 mmol/L (3.5-5.1) Chloride Level 104 mmol/L (98-107) 103 mmol/L (98-107) Carbon Dioxide Level 28 mmol/L (21-32) 27 mmol/L (21-32) Anion Gap 8 (6-14) 10 (6-14) Blood Urea Nitrogen 8 mg/dL (7-20) 9 mg/dL (7-20) Creatinine 0.5 mg/dL (0.6-1.0) 0.5 mg/dL (0.6-1.0) Estimated GFR (Cockcroft-Gault) 155.7 155.7 Glucose Level 84 mg/dL (70-99) 89 mg/dL (70-99) Calcium Level 8.3 mg/dL (8.5-10.1) 8.5 mg/dL (8.5-10.1) Creatine Kinase 27 U/L (26-192) Urine Test Negative (NEG) Laboratory Tests Test 01/02/20 06:45 White Blood Count 5.3 x10^3/uL (4.0-11.0) Red Blood Count 2.96 x10^6/uL (3.50-5.40) Hemoglobin 9.7 g/dL (12.0-15.5) Hematocrit 27.6 % (36.0-47.0) Mean Corpuscular Volume 93 fL (79-100) Mean Corpuscular Hemoglobin 33 pg (25-35) Mean Corpuscular Hemoglobin Concent 35 g/dL (31-37) Red Cell Distribution Width 13.3 % (11.5-14.5) Platelet Count 163 x10^3/uL (140-400) Neutrophils (%) (Auto) 63 % (31-73) Lymphocytes (%) (Auto) 28 % (24-48) Monocytes (%) (Auto) 8 % (0-9) Eosinophils (%) (Auto) 1 % (0-3) Basophils (%) (Auto) 0 % (0-3) Neutrophils # (Auto) 3.4 x10^3/uL (1.8-7.7) Lymphocytes # (Auto) 1.5 x10^3/uL (1.0-4.8) Monocytes # (Auto) 0.4 x10^3/uL (0.0-1.1) Eosinophils # (Auto) 0.0 x10^3/uL (0.0-0.7) Basophils # (Auto) 0.0 x10^3/uL (0.0-0.2) Sodium Level 140 mmol/L (136-145) Potassium Level 3.9 mmol/L (3.5-5.1) Chloride Level 103 mmol/L (98-107) Carbon Dioxide Level 27 mmol/L (21-32) Anion Gap 10 (6-14) Blood Urea Nitrogen 9 mg/dL (7-20) Creatinine 0.5 mg/dL (0.6-1.0) Estimated GFR (Cockcroft-Gault) 155.7 Glucose Level 89 mg/dL (70-99) Calcium Level 8.5 mg/dL (8.5-10.1) Microbiology 12/31/19 Gram Stain - Final, Resulted 12/31/19 Aerobic and Anaerobic Culture - Preliminary, Resulted 12/31/19 Antimicrobic Susceptibility - Preliminary, Resulted 12/30/19 Blood Culture - Preliminary, Resulted NO GROWTH AFTER 3 DAYS Medications Current Medications Sodium Chloride 1,000 ml @ 1,000 mls/hr Q1H IV Last administered on 12/26/19at 14:52; Start 12/26/19 at 14:44; Stop 12/26/19 at 15:43; Status DC Acetaminophen (Tylenol) 1,000 mg 1X ONCE PO Last administered on 12/26/19at 14:52; Start 12/26/19 at 14:45; Stop 12/26/19 at 14:52; Status DC Fentanyl Citrate (Fentanyl 2ml Vial) 50 mcg 1X ONCE IVP Last administered on 12/26/19at 14:51; Start 12/26/19 at 14:45; Stop 12/26/19 at 14:52; Status DC Sodium Chloride 1,000 ml @ 1,000 mls/hr 1X ONCE IV Last administered on 12/26/19at 16:16; Start 12/26/19 at 15:30; Stop 12/26/19 at 16:29; Status DC Piperacillin Sod/ Tazobactam Sod 3.375 gm/Sodium Chloride 50 ml @ 100 mls/hr 1X ONCE IV Last administered on 12/26/19 16:15; Start 12/26/19 at 16:15; Stop 12/27/19 at 10:20; Status DC Diphenhydramine HCl (Benadryl) 25 mg 1X ONCE IVP Last administered on 12/26/19 16:16; Start 12/26/19 at 16:15; Stop 12/26/19 at 16:16; Status DC Vancomycin HCl (Vanco Per Pharmacy) 1 each PRN DAILY PRN MC SEE COMMENTS Last administered on 12/29/19at 12:34; Start 12/26/19 at 16:15; Stop 12/29/19 at 12:43; Status DC Vancomycin HCl 1.75 gm/Sodium Chloride 500 ml @ 250 mls/hr 1X ONCE IV Last administered on 12/26/19 16:59; Start 12/26/19 at 17:00; Stop 12/26/19 at 18:59; Status DC Fentanyl Citrate (Fentanyl 2ml Vial) 50 mcg 1X ONCE IVP Last administered on 12/26/19 16:59; Start 12/26/19 at 16:45; Stop 12/26/19 at 16:46; Status DC Vancomycin HCl 1 gm/Sodium Chloride 250 ml @ 250 mls/hr Q8H IV Last administered on 12/27/19 18:09; Start 12/27/19 at 01:00; Stop 12/27/19 at 20:25; Status DC Vancomycin HCl (Vancomycin Trough Level) 1 each 1X ONCE MC Last administered on 12/27/19 16:30; Start 12/27/19 at 16:30; Stop 12/27/19 at 16:31; Status DC Fentanyl Citrate (Fentanyl 2ml Vial) 50 mcg PRN Q2HR PRN IVP PAIN Last administered on 01/02/20 12:38; Start 12/26/19 at 18:45 Ondansetron HCl (Zofran) 4 mg PRN Q6HRS PRN IVP NAUSEA/VOMITING 1ST CHOICE Last administered on 01/02/20 03:27; Start 12/26/19 at 18:45 Prochlorperazine Edisylate (Compazine) 10 mg PRN Q8HRS PRN IM NAUSEA/VOMITING Last administered on 12/28/19 12:28; Start 12/26/19 at 18:45; Stop 12/29/19 at 14:52; Status DC Acetaminophen (Tylenol) 650 mg PRN Q6HRS PRN PEG MILD PAIN / TEMP > 100.3'F Last administered on 12/27/19at 11:50; Start 12/26/19 at 18:45 Cefazolin Sodium/ Dextrose 50 ml @ 100 mls/hr Q8HRS IV ; Start 12/27/19 at 11:00; Status Cancel Cefazolin Sodium/ Dextrose 50 ml @ 100 mls/hr Q8HRS IV Last administered on 12/29/19at 05:55; Start 12/27/19 at 12:00; Stop 12/29/19 at 12:38; Status DC Amino Acids/ Glycerin/ Electrolytes 1,000 ml @ 75 mls/hr [id number] IV Last administered on 01/02/20at 10:37; Start 12/27/19 at 11:30 Vancomycin HCl 1.25 gm/Sodium Chloride 250 ml @ 250 mls/hr Q8H IV Last administered on 12/29/19at 02:00; Start 12/28/19 at 02:00; Stop 12/29/19 at 10:05; Status DC Vancomycin HCl (Vancomycin Trough Level) 1 each 1X ONCE MC Last administered on 12/29/19at 09:30; Start 12/29/19 at 09:30; Stop 12/29/19 at 09:31; Status DC Iohexol (Omnipaque 240 Mg/ml) 50 ml STK-MED ONCE .ROUTE ; Start 12/28/19 at 11:26; Stop 12/28/19 at 11:26; Status DC Midazolam HCl (Versed) 2 mg STK-MED ONCE .ROUTE ; Start 12/28/19 at 12:21; Stop 12/28/19 at 12:22; Status DC Fentanyl Citrate (Fentanyl 2ml Vial) 100 mcg STK-MED ONCE .ROUTE ; Start 12/28/19 at 12:21; Stop 12/28/19 at 12:22; Status DC Potassium Chloride/Water 100 ml @ 100 mls/hr Q1H IV Last administered on 12/28/19at 18:41; Start 12/28/19 at 13:00; Stop 12/28/19 at 14:59; Status DC Lidocaine HCl (Buffered Lidocaine 1%) 3 ml 1X ONCE IJ Last administered on 12/28/19at 12:50; Start 12/28/19 at 13:00; Stop 12/28/19 at 13:01; Status DC Midazolam HCl (Versed) 2 mg 1X ONCE IV Last administered on 12/28/19at 12:45; Start 12/28/19 at 13:00; Stop 12/28/19 at 13:01; Status DC Iohexol (Omnipaque 240 Mg/ml) 50 ml 1X ONCE IJ Last administered on 12/28/19at 12:52; Start 12/28/19 at 13:00; Stop 12/28/19 at 13:01; Status DC Lidocaine HCl (Buffered Lidocaine 1%) 3 ml STK-MED ONCE .ROUTE ; Start 12/28/19 at 12:54; Stop 12/28/19 at 12:55; Status DC Fentanyl Citrate (Fentanyl 2ml Vial) 100 mcg 1X ONCE IV Last administered on 12/28/19at 12:50; Start 12/28/19 at 13:15; Stop 12/28/19 at 13:16; Status DC Vancomycin HCl 1.25 gm/Sodium Chloride 250 ml @ 250 mls/hr Q6H IV ; Start 12/29/19 at 10:00; Status Cancel Vancomycin HCl 1.25 gm/Sodium Chloride 250 ml @ 250 mls/hr Q6H IV ; Start 12/29/19 at 10:08; Status Cancel Vancomycin HCl 1.25 gm/Sodium Chloride 250 ml @ 250 mls/hr Q6H IV Last administered on 12/29/19at 10:48; Start 12/29/19 at 10:00; Stop 12/29/19 at 12:41; Status DC Vancomycin HCl 1.75 gm/Sodium Chloride 500 ml @ 250 mls/hr Q8H IV ; Start 12/29/19 at 19:00; Stop 12/29/19 at 12:40; Status DC Vancomycin HCl (Vancomycin Trough Level) 1 each 1X ONCE MC ; Start 12/30/19 at 18:30; Stop 12/30/19 at 18:31; Status Cancel Daptomycin 440 mg/ Sodium Chloride 50 ml @ 100 mls/hr Q24H IV Last administer ed on 01/02/20at 12:39; Start 12/29/19 at 13:00 Prochlorperazine Edisylate (Compazine) 10 mg PRN Q8HRS PRN IVP NAUSEA/VOMITING 2ND CHOICE Last administered on 01/01/20at 22:32; Start 12/29/19 at 15:00 Lidocaine/ Epinephrine (LIDOCAINE 1%-EPI 1:100,000 Multi-Dose) 20 ml STK-MED ONCE .ROUTE ; Start 12/31/19 at 13:28; Stop 12/31/19 at 13:28; Status DC Midazolam HCl (Versed) 2 mg STK-MED ONCE .ROUTE ; Start 12/31/19 at 14:03; Stop 12/31/19 at 14:04; Status DC Fentanyl Citrate (Fentanyl 2ml Vial) 100 mcg STK-MED ONCE .ROUTE ; Start 12/31/19 at 14:04; Stop 12/31/19 at 14:04; Status DC Midazolam HCl (Versed) 2 mg 1X ONCE IV Last administered on 12/31/19at 14:15; Start 12/31/19 at 14:15; Stop 12/31/19 at 14:19; Status DC Fentanyl Citrate (Fentanyl 2ml Vial) 100 mcg 1X ONCE IV Last administered on 12/31/19at 14:15; Start 12/31/19 at 14:15; Stop 12/31/19 at 14:19; Status DC Lidocaine/ Epinephrine (LIDOCAINE 1%-EPI 1:100,000 Multi-Dose) 20 ml 1X ONCE INJ Last administered on 12/31/19at 14:15; Start 12/31/19 at 14:15; Stop 12/31/19 at 14:19; Status DC Fentanyl Citrate (Fentanyl 2ml Vial) 50 mcg 1X ONCE IVP Last administered on 12/31/19at 17:45; Start 12/31/19 at 17:45; Stop 12/31/19 at 17:46; Status DC Lidocaine HCl (Viscous Lidocaine) 15 ml STK-MED ONCE .ROUTE ; Start 01/01/20 at 11:43; Stop 01/01/20 at 11:43; Status DC Lidocaine HCl (Xylocaine 2% Topical 30gm Tube) 30 joy STK-MED ONCE TP ; Start 01/01/20 at 11:43; Stop 01/01/20 at 11:43; Status DC Benzocaine (Hurricaine One) 1 spray STK-MED ONCE .ROUTE ; Start 01/01/20 at 11:43; Stop 01/01/20 at 11:43; Status DC Propofol (Diprivan) 200 mg STK-MED ONCE IV ; Start 01/01/20 at 13:43; Stop 01/01/20 at 13:44; Status DC Ringer's Solution 1,000 ml @ 50 mls/hr Q20H IV ; Start 01/01/20 at 14:14; Stop 01/02/20 at 02:13; Status DC Active Scripts Active [Tpn Per Pharmacy] 1 EACH Each 1 Each MC PRN DAILY PRN 30 Days Tpn Electrolytes Vial (Sodium/K+/Mag/Ca/Chlor/Acetate) 20 Ml Vial 20 Ml IV DAILY06 30 Days Metoclopramide Hcl 5 Mg/1 Ml Vial 10 Mg IVP PRN Q6HRS PRN 14 Days [Pantoprazole Iv Push] 40 MG Vial 40 Mg IVP BIDAC 30 Days Ondansetron Hcl 4 Mg/2 Ml Vial (Ondansetron Hcl/Pf) 4 Mg/2 Ml Vial 4 Mg IVP PRN Q6HRS PRN 30 Days Prochlorperazine Edisylate 10 Mg/2 Ml Vial 10 Mg IV PRN Q6HRS PRN 14 Days Milk Of Magnesia (Magnesium Hydroxide) 400 Mg/5 Ml Oral.susp 2,400 Mg JT DAILY 30 Days Enemeez (Docusate Sodium) 283 Mg/5 Ml Enema 283 Mg [place] PRN DAILY PRN 30 Days Bisacodyl 10 Mg Supp.rect 10 Mg [place] PRN DAILY PRN 30 Days Nystatin 100,000 Unit/1 Ml Oral.susp 5 Ml SWSW [id number] 10 Days Hydrocodone-Apap 7.5-325/15 Soln (Hydrocodone Bit/Acetaminophen) 15 Ml Solution 15 Ml JT PRN Q6HRS PRN Reported Metoprolol Tartrate 50 Mg Tablet 1 Tab PO BID Advair Hfa 230-21 Mcg Inhaler (Fluticasone/Salmeterol) 12 Gm Hfa.aer.ad 1 Inh IH BID Dicyclomine Hcl 20 Mg Tablet 20 Mg GT PRN QID PRN Olopatadine HCl 5 Ml Drops 0.1 % OP PRN DAILY PRN Promethazine Hcl 12.5 Mg Tablet 25 Mg GT Q6H PRN Trazodone Hcl 50 Mg Tablet 50 Mg GT HS Coq-10 (Ubidecarenone) 100 Mg Capsule 200 Mg GT DAILY Vitamin D3 (Cholecalciferol (Vitamin D3)) 4,000 Unit Capsule 2,000 Unit PO HS Xyzal (Levocetirizine Dihydrochloride) 5 Mg Tablet 5 Mg GT HS Proair Hfa (Albuterol Sulfate) 8.5 Gm Hfa.aer.ad 2 Puff IH PRN Q4-6HRS PRN 21 Days Ipratropium [place] 30 Ml [place] 1 [place] NS DAILY Duoneb 0.5-3(2.5) Mg/3 Ml (Albuterol/Ipratropium) 3 Ml Ampul.neb 3 Ml NEB PRN Q ID PRN Montelukast Sodium Tablet (Montelukast Sodium) 10 Mg Tablet 10 Mg GT DAILY PRN Multi Vitamin Daily (Multivitamin) 1 Each Tablet 1 Each GT DAILY Vitals/I & O Vital Sign - Last 24 Hours 01/01/20 01/01/20 01/01/20 01/01/20 14:53 14:53 15:08 15:20 Temp 98.7 98.7 98.7 98.7 Pulse 66 76 Resp 18 18 B/P (MAP) 124/78 96/55 Pulse Ox 99 98 O2 Delivery Nasal Cannula Nasal Cannula Room Air Room Air O2 Flow Rate 4 4 01/01/20 01/01/20 01/01/20 01/01/20 15:31 15:40 15:45 16:00 Pulse 72 72 74 Resp 20 B/P (MAP) 116/63 (80) 106/64 (78) 109/57 (74) Pulse Ox 94 93 96 O2 Delivery Room Air 01/01/20 01/01/20 01/01/20 01/01/20 16:15 16:30 19:00 19:30 Temp 98.5 98.5 Pulse 74 66 Resp 19 B/P (MAP) 109/61 (77) 106/61 (76) 113/70 (84) Pulse Ox 96 97 O2 Delivery Room Air Room Air 01/01/20 01/01/20 01/01/20 01/01/20 20:16 20:46 22:33 23:00 Temp 98.0 98.0 Pulse 69 Resp 19 B/P (MAP) 117/72 (87) Pulse Ox 96 O2 Delivery Room Air Room Air Room Air Room Air 01/01/20 01/02/20 01/02/20 01/02/20 23:03 00:40 01:10 03:00 Temp 98.0 98.0 Pulse 70 Resp 18 B/P (MAP) 117/61 (79) Pulse Ox 93 O2 Delivery Room Air Room Air Room Air Room Air 01/02/20 01/02/20 01/02/20 01/02/20 03:28 04:05 06:02 06:40 O2 Delivery Room Air Room Air Room Air Room Air 01/02/20 01/02/20 01/02/20 01/02/20 06:57 07:00 08:00 08:36 Temp 97.8 97.8 Pulse 64 Resp 16 16 B/P (MAP) 101/58 (72) Pulse Ox 95 O2 Delivery Room Air Room Air Room Air Room Air 01/02/20 01/02/20 01/02/20 10:34 11:00 12:38 Temp 98.2 98.2 Pulse 65 Resp 16 18 16 B/P (MAP) 107/63 (78) Pulse Ox 96 O2 Delivery Room Air Intake and Output 01/01/20 01/01/20 01/02/20 15:00 23:00 07:00 Intake Total 0 ml 0 ml Balance 0 ml 0 ml Justicifation of Admission Dx: Justifications for Admission: Justification of Admission Dx: Yes Sepsis: Bacteremia KRISTEN ESPAÑA MD Jan 02, 2020 13:37
[2020-01-02 15:11] VITALS: BP 105/59
--- NOTE | 2020-01-02 15:13 | PDOC ---
PROGRESS NOTES Date of Service DATE: 01/02/20 TIME: 15:09 Subjective Subjective Sakina was seen in a follow-up visit today. She reports no new concerns today. Continues on antibiotic for bacteremia. Review of systems was negative for fever, chills, chest pain, nausea, vomiting, diarrhea, hematochezia, melena, dy suria, flank pain, rash. Objective Objective Vital Signs Date Time Temp Pulse Resp B/P (MAP) Pulse Ox O2 Delivery O2 Flow Rate FiO2 01/02/20 12:38 16 01/02/20 11:00 98.2 65 107/63 (78) 96 Room Air 98.2 01/02/20 11:00 2.0 Intake and Output 01/02/20 06:59 Intake Total 0 ml Balance 0 ml Intake Oral 0 ml # Bowel Movements 1 Physical Exam Abdomen: Normal bowel sounds, Soft Heart: Regular rate Extremities: No clubbing, No cyanosis General: Alert, Oriented X3 HEENT: Atraumatic Lungs: Clear to auscultation MUSCULOSKELETAL: No swelling Neck: Supple Neuro: Normal speech Psych/Mental Status: Mental status NL Skin: No rashes Assessment Assessment Elevated INR, corrected by mixing studieslikely secondary to vitamin K deficiency Idiopathic severe gastroparesis TPN dependence Port-A-Cath infection with MSSA bacteremia Plan Plan of Care Recommendations: -Reviewed results of APTT and PT with mixing studies. Her elevated prothrombin time corrected with mixing studies suggesting clotting factor deficiency -Suspect that these findings represent vitamin K deficiency secondary to her severe gastroparesis and TPN dependence -We will check factor VII level in order to confirm -Placed orders for vitamin K 10 MCG subcutaneous once -Recommend discussion with welding lead burner to ensure that vitamin K is incorporated into her TPN regimen Will sign off. Please call my number with questions Brandon Polk MD Medical Oncology/Hematology Ph: [phone] Comment Review of Relevant I have reviewed the following items lalo (where applicable) has been applied. Labs Laboratory Tests Test 01/01/20 07:15 01/01/20 13:00 01/02/20 06:45 White Blood Count 4.1 x10^3/uL (4.0-11.0) 5.3 x10^3/uL (4.0-11.0) Red Blood Count 2.89 x10^6/uL (3.50-5.40) 2.96 x10^6/uL (3.50-5.40) Hemoglobin 9.3 g/dL (12.0-15.5) 9.7 g/dL (12.0-15.5) Hematocrit 26.9 % (36.0-47.0) 27.6 % (36.0-47.0) Mean Corpuscular Volume 93 fL (79-100) 93 fL (79-100) Mean Corpuscular Hemoglobin 32 pg (25-35) 33 pg (25-35) Mean Corpuscular Hemoglobin Concent 35 g/dL (31-37) 35 g/dL (31-37) Red Cell Distribution Width 13.1 % (11.5-14.5) 13.3 % (11.5-14.5) Platelet Count 134 x10^3/uL (140-400) 163 x10^3/uL (140-400) Neutrophils (%) (Auto) 52 % (31-73) 63 % (31-73) Lymphocytes (%) (Auto) 38 % (24-48) 28 % (24-48) Monocytes (%) (Auto) 9 % (0-9) 8 % (0-9) Eosinophils (%) (Auto) 1 % (0-3) 1 % (0-3) Basophils (%) (Auto) 0 % (0-3) 0 % (0-3) Neutrophils # (Auto) 2.1 x10^3/uL (1.8-7.7) 3.4 x10^3/uL (1.8-7.7) Lymphocytes # (Auto) 1.6 x10^3/uL (1.0-4.8) 1.5 x10^3/uL (1.0-4.8) Monocytes # (Auto) 0.4 x10^3/uL (0.0-1.1) 0.4 x10^3/uL (0.0-1.1) Eosinophils # (Auto) 0.0 x10^3/uL (0.0-0.7) 0.0 x10^3/uL (0.0-0.7) Basophils # (Auto) 0.0 x10^3/uL (0.0-0.2) 0.0 x10^3/uL (0.0-0.2) Sodium Level 140 mmol/L (136-145) 140 mmol/L (136-145) Potassium Level 3.9 mmol/L (3.5-5.1) 3.9 mmol/L (3.5-5.1) Chloride Level 104 mmol/L (98-107) 103 mmol/L (98-107) Carbon Dioxide Level 28 mmol/L (21-32) 27 mmol/L (21-32) Anion Gap 8 (6-14) 10 (6-14) Blood Urea Nitrogen 8 mg/dL (7-20) 9 mg/dL (7-20) Creatinine 0.5 mg/dL (0.6-1.0) 0.5 mg/dL (0.6-1.0) Estimated GFR (Cockcroft-Gault) 155.7 155.7 Glucose Level 84 mg/dL (70-99) 89 mg/dL (70-99) Calcium Level 8.3 mg/dL (8.5-10.1) 8.5 mg/dL (8.5-10.1) Creatine Kinase 27 U/L (26-192) Urine Test Negative (NEG) Laboratory Tests Test 01/02/20 06:45 White Blood Count 5.3 x10^3/uL (4.0-11.0) Red Blood Count 2.96 x10^6/uL (3.50-5.40) Hemoglobin 9.7 g/dL (12.0-15.5) Hematocrit 27.6 % (36.0-47.0) Mean Corpuscular Volume 93 fL (79-100) Mean Corpuscular Hemoglobin 33 pg (25-35) Mean Corpuscular Hemoglobin Concent 35 g/dL (31-37) Red Cell Distribution Width 13.3 % (11.5-14.5) Platelet Count 163 x10^3/uL (140-400) Neutrophils (%) (Auto) 63 % (31-73) Lymphocytes (%) (Auto) 28 % (24-48) Monocytes (%) (Auto) 8 % (0-9) Eosinophils (%) (Auto) 1 % (0-3) Basophils (%) (Auto) 0 % (0-3) Neutrophils # (Auto) 3.4 x10^3/uL (1.8-7.7) Lymphocytes # (Auto) 1.5 x10^3/uL (1.0-4.8) Monocytes # (Auto) 0.4 x10^3/uL (0.0-1.1) Eosinophils # (Auto) 0.0 x10^3/uL (0.0-0.7) Basophils # (Auto) 0.0 x10^3/uL (0.0-0.2) Sodium Level 140 mmol/L (136-145) Potassium Level 3.9 mmol/L (3.5-5.1) Chloride Level 103 mmol/L (98-107) Carbon Dioxide Level 27 mmol/L (21-32) Anion Gap 10 (6-14) Blood Urea Nitrogen 9 mg/dL (7-20) Creatinine 0.5 mg/dL (0.6-1.0) Estimated GFR (Cockcroft-Gault) 155.7 Glucose Level 89 mg/dL (70-99) Calcium Level 8.5 mg/dL (8.5-10.1) Microbiology 12/31/19 Gram Stain - Final, Resulted 12/31/19 Aerobic and Anaerobic Culture - Preliminary, Resulted 12/31/19 Antimicrobic Susceptibility - Preliminary, Resulted 12/30/19 Blood Culture - Preliminary, Resulted NO GROWTH AFTER 3 DAYS Medications Current Medications Sodium Chloride 1,000 ml @ 1,000 mls/hr Q1H IV Last administered on 12/26/19at 14:52; Start 12/26/19 at 14:44; Stop 12/26/19 at 15:43; Status DC Acetaminophen (Tylenol) 1,000 mg 1X ONCE PO Last administered on 12/26/19at 14:52; Start 12/26/19 at 14:45; Stop 12/26/19 at 14:52; Status DC Fentanyl Citrate (Fentanyl 2ml Vial) 50 mcg 1X ONCE IVP Last administered on 12/26/19at 14:51; Start 12/26/19 at 14:45; Stop 12/26/19 at 14:52; Status DC Sodium Chloride 1,000 ml @ 1,000 mls/hr 1X ONCE IV Last administered on 12/26/19at 16:16; Start 12/26/19 at 15:30; Stop 12/26/19 at 16:29; Status DC Piperacillin Sod/ Tazobactam Sod 3.375 gm/Sodium Chloride 50 ml @ 100 mls/hr 1X ONCE IV Last administered on 12/26/19at 16:15; Start 12/26/19 at 16:15; Stop 12/27/19 at 10:20; Status DC Diphenhydramine HCl (Benadryl) 25 mg 1X ONCE IVP Last administered on 12/26/19at 16:16; Start 12/26/19 at 16:15; Stop 12/26/19 at 16:16; Status DC Vancomycin HCl (Vanco Per Pharmacy) 1 each PRN DAILY PRN MC SEE COMMENTS Last administered on 12/29/19at 12:34; Start 12/26/19 at 16:15; Stop 12/29/19 at 12:43; Status DC Vancomycin HCl 1.75 gm/Sodium Chloride 500 ml @ 250 mls/hr 1X ONCE IV Last administered on 12/26/19at 16:59; Start 12/26/19 at 17:00; Stop 12/26/19 at 18:59; Status DC Fentanyl Citrate (Fentanyl 2ml Vial) 50 mcg 1X ONCE IVP Last administered on 12/26/19at 16:59; Start 12/26/19 at 16:45; Stop 12/26/19 at 16:46; Status DC Vancomycin HCl 1 gm/Sodium Chloride 250 ml @ 250 mls/hr Q8H IV Last administered on 12/27/19 18:09; Start 12/27/19 at 01:00; Stop 12/27/19 at 20:25; Status DC Vancomycin HCl (Vancomycin Trough Level) 1 each 1X ONCE MC Last administered on 12/27/19at 16:30; Start 12/27/19 at 16:30; Stop 12/27/19 at 16:31; Status DC Fentanyl Citrate (Fentanyl 2ml Vial) 50 mcg PRN Q2HR PRN IVP PAIN Last administered on 01/02/20 14:22; Start 12/26/19 at 18:45 Ondansetron HCl (Zofran) 4 mg PRN Q6HRS PRN IVP NAUSEA/VOMITING 1ST CHOICE Last administered on 01/02/20 03:27; Start 12/26/19 at 18:45 Prochlorperazine Edisylate (Compazine) 10 mg PRN Q8HRS PRN IM NAUSEA/VOMITING Last administered on 8/7/20at 12:28; Start 12/26/19 at 18:45; Stop 12/29/19 at 14: 52; Status DC Acetaminophen (Tylenol) 650 mg PRN Q6HRS PRN PEG MILD PAIN / TEMP > 100.3'F Last administered on 12/27/19at 11:50; Start 12/26/19 at 18:45 Cefazolin Sodium/ Dextrose 50 ml @ 100 mls/hr Q8HRS IV ; Start 12/27/19 at 11:00; Status Cancel Cefazolin Sodium/ Dextrose 50 ml @ 100 mls/hr Q8HRS IV Last administered on 12/29/19at 05:55; Start 12/27/19 at 12:00; Stop 12/29/19 at 12:38; Status DC Amino Acids/ Glycerin/ Electrolytes 1,000 ml @ 75 mls/hr [id number] IV Last administered on 01/02/20at 10:37; Start 12/27/19 at 11:30 Vancomycin HCl 1.25 gm/Sodium Chloride 250 ml @ 250 mls/hr Q8H IV Last administered on 12/29/19at 02:00; Start 12/28/19 at 02:00; Stop 12/29/19 at 10:05; Status DC Vancomycin HCl (Vancomycin Trough Level) 1 each 1X ONCE MC Last administered on 12/29/19at 09:30; Start 12/29/19 at 09:30; Stop 12/29/19 at 09:31; Status DC Iohexol (Omnipaque 240 Mg/ml) 50 ml STK-MED ONCE .ROUTE ; Start 12/28/19 at 11:26; Stop 12/28/19 at 11:26; Status DC Midazolam HCl (Versed) 2 mg STK-MED ONCE .ROUTE ; Start 12/28/19 at 12:21; Stop 12/28/19 at 12:22; Status DC Fentanyl Citrate (Fentanyl 2ml Vial) 100 mcg STK-MED ONCE .ROUTE ; Start 12/28/19 at 12:21; Stop 12/28/19 at 12:22; Status DC Potassium Chloride/Water 100 ml @ 100 mls/hr Q1H IV Last administered on 0at 18:41; Start 12/28/19 at 13:00; Stop 12/28/19 at 14:59; Status DC Lidocaine HCl (Buffered Lidocaine 1%) 3 ml 1X ONCE IJ Last administered on 12/28/19at 12:50; Start 12/28/19 at 13:00; Stop 12/28/19 at 13:01; Status DC Midazolam HCl (Versed) 2 mg 1X ONCE IV Last administered on 12/28/19at 12:45; Start 12/28/19 at 13:00; Stop 12/28/19 at 13:01; Status DC Iohexol (Omnipaque 240 Mg/ml) 50 ml 1X ONCE IJ Last administered on 12/28/19at 12:52; Start 12/28/19 at 13:00; Stop 12/28/19 at 13:01; Status DC Lidocaine HCl (Buffered Lidocaine 1%) 3 ml STK-MED ONCE .ROUTE ; Start 12/28/19 at 12:54; Stop 12/28/19 at 12:55; Status DC Fentanyl Citrate (Fentanyl 2ml Vial) 100 mcg 1X ONCE IV Last administered on 12/28/19at 12:50; Start 12/28/19 at 13:15; Stop 12/28/19 at 13:16; Status DC Vancomycin HCl 1.25 gm/Sodium Chloride 250 ml @ 250 mls/hr Q6H IV ; Start 12/29/19 at 10:00; Status Cancel Vancomycin HCl 1.25 gm/Sodium Chloride 250 ml @ 250 mls/hr Q6H IV ; Start 12/29/19 at 10:08; Status Cancel Vancomycin HCl 1.25 gm/Sodium Chloride 250 ml @ 250 mls/hr Q6H IV Last administered on 12/29/19at 10:48; Start 12/29/19 at 10:00; Stop 12/29/19 at 12:41; Status DC Vancomycin HCl 1.75 gm/Sodium Chloride 500 ml @ 250 mls/hr Q8H IV ; Start 12/29/19 at 19:00; Stop 12/29/19 at 12:40; Status DC Vancomycin HCl (Vancomycin Trough Level) 1 each 1X ONCE MC ; Start 12/30/19 at 18:30; Stop 12/30/19 at 18:31; Status Cancel Daptomycin 440 mg/ Sodium Chloride 50 ml @ 100 mls/hr Q24H IV Last administered on 01/02/20at 12:39; Start 12/29/19 at 13:00 Prochlorperazine Edisylate (Compazine) 10 mg PRN Q8HRS PRN IVP NAUSEA/VOMITING 2ND CHOICE Last administered on 01/01/20at 22:32; Start 12/29/19 at 15:00 Lidocaine/ Epinephrine (LIDOCAINE 1%-EPI 1:100,000 Multi-Dose) 20 ml STK-MED ONCE .ROUTE ; Start 12/31/19 at 13:28; Stop 12/31/19 at 13:28; Status DC Midazolam HCl (Versed) 2 mg STK-MED ONCE .ROUTE ; Start 12/31/19 at 14:03; Stop 12/31/19 at 14:04; Status DC Fentanyl Citrate (Fentanyl 2ml Vial) 100 mcg STK-MED ONCE .ROUTE ; Start 12/31/19 at 14:04; Stop 12/31/19 at 14:04; Status DC Midazolam HCl (Versed) 2 mg 1X ONCE IV Last administered on 12/31/19at 14:15; Start 12/31/19 at 14:15; Stop 12/31/19 at 14:19; Status DC Fentanyl Citrate (Fentanyl 2ml Vial) 100 mcg 1X ONCE IV Last administered on 12/31/19at 14:15; Start 12/31/19 at 14:15; Stop 12/31/19 at 14:19; Status DC Lidocaine/ Epinephrine (LIDOCAINE 1%-EPI 1:100,000 Multi-Dose) 20 ml 1X ONCE INJ Last administered on 12/31/19at 14:15; Start 12/31/19 at 14:15; Stop 12/31/19 at 14:19; Status DC Fentanyl Citrate (Fentanyl 2ml Vial) 50 mcg 1X ONCE IVP Last administered on 12/31/19at 17:45; Start 12/31/19 at 17:45; Stop 12/31/19 at 17:46; Status DC Lidocaine HCl (Viscous Lidocaine) 15 ml STK-MED ONCE .ROUTE ; Start 01/01/20 at 11:43; Stop 01/01/20 at 11:43; Status DC Lidocaine HCl (Xylocaine 2% Topical 30gm Tube) 30 joy STK-MED ONCE TP ; Start 01/01/20 at 11:43; Stop 01/01/20 at 11:43; Status DC Benzocaine (Hurricaine One) 1 spray STK-MED ONCE .ROUTE ; Start 01/01/20 at 11:43; Stop 01/01/20 at 11:43; Status DC Propofol (Diprivan) 200 mg STK-MED ONCE IV ; Start 01/01/20 at 13:43; Stop 01/01/20 at 13:44; Status DC Ringer's Solution 1,000 ml @ 50 mls/hr Q20H IV ; Start 01/01/20 at 14:14; Stop 01/02/20 at 02:13; Status DC Phytonadione (Vitamin K Ampule) 10 mg 1X ONCE SQ ; Start 01/02/20 at 15:30; Stop 01/02/20 at 15:31 Active Scripts Active [Tpn Per Pharmacy] 1 EACH Each 1 Each MC PRN DAILY PRN 30 Days Tpn Electrolytes Vial (Sodium/K+/Mag/Ca/Chlor/Acetate) 20 Ml Vial 20 Ml IV DAILY06 30 Days Metoclopramide Hcl 5 Mg/1 Ml Vial 10 Mg IVP PRN Q6HRS PRN 14 Days [Pantoprazole Iv Push] 40 MG Vial 40 Mg IVP BIDAC 30 Days Ondansetron Hcl 4 Mg/2 Ml Vial (Ondansetron Hcl/Pf) 4 Mg/2 Ml Vial 4 Mg IVP PRN Q6HRS PRN 30 Days Prochlorperazine Edisylate 10 Mg/2 Ml Vial 10 Mg IV PRN Q6HRS PRN 14 Days Milk Of Magnesia (Magnesium Hydroxide) 400 Mg/5 Ml Oral.susp 2,400 Mg JT DAILY 30 Days Enemeez (Docusate Sodium) 283 Mg/5 Ml Enema 283 Mg MI PRN DAILY PRN 30 Days Bisacodyl 10 Mg Supp.rect 10 Mg MI PRN DAILY PRN 30 Days Nystatin 100,000 Unit/1 Ml Oral.susp 5 Ml SWSW [id number] 10 Days Hydrocodone-Apap 7.5-325/15 Soln (Hydrocodone Bit/Acetaminophen) 15 Ml Solution 15 Ml JT PRN Q6HRS PRN Reported Metoprolol Tartrate 50 Mg Tablet 1 Tab PO BID Advair Hfa 230-21 Mcg Inhaler (Fluticasone/Salmeterol) 12 Gm Hfa.aer.ad 1 Inh IH BID Dicyclomine Hcl 20 Mg Tablet 20 Mg GT PRN QID PRN Olopatadine HCl 5 Ml Drops 0.1 % OP PRN DAILY PRN Promethazine Hcl 12.5 Mg Tablet 25 Mg GT Q6H PRN Trazodone Hcl 50 Mg Tablet 50 Mg GT HS Coq-10 (Ubidecarenone) 100 Mg Capsule 200 Mg GT DAILY Vitamin D3 (Cholecalciferol (Vitamin D3)) 4,000 Unit Capsule 2,000 Unit PO HS Xyzal (Levocetirizine Dihydrochloride) 5 Mg Tablet 5 Mg GT HS Proair Hfa (Albuterol Sulfate) 8.5 Gm Hfa.aer.ad 2 Puff IH PRN Q4-6HRS PRN 21 Days Ipratropium [place] 30 Ml [place] 1 [place] NS DAILY Duoneb 0.5-3(2.5) Mg/3 Ml (Albuterol/Ipratropium) 3 Ml Ampul.neb 3 Ml NEB PRN QID PRN Montelukast Sodium Tablet (Montelukast Sodium) 10 Mg Tablet 10 Mg GT DAILY PRN Multi Vitamin Daily (Multivitamin) 1 Each Tablet 1 Each GT DAILY Vitals/I & O Vital Sign - Last 24 Hours 01/01/20 01/01/20 01/01/20 01/01/20 15:20 15:31 15:40 15:45 Pulse 72 72 Resp 20 B/P (MAP) 116/63 (80) 106/64 (78) Pulse Ox 94 93 O2 Delivery Room Air Room Air 01/01/20 01/01/20 01/01/20 01/01/20 16:00 16:15 16:30 19:00 Temp 98.5 98.5 Pulse 74 74 66 Resp 19 B/P (MAP) 109/57 (74) 109/61 (77) 106/61 (76) 113/70 (84) Pulse Ox 96 96 97 O2 Delivery Room Air 01/01/20 01/01/20 01/01/20 01/01/20 19:30 20:16 20:46 22:33 O2 Delivery Room Air Room Air Room Air Room Air 01/01/20 01/01/20 01/02/20 01/02/20 23:00 23:03 00:40 01:10 Temp 98.0 98.0 Pulse 69 Resp 19 B/P (MAP) 117/72 (87) Pulse Ox 96 O2 Delivery Room Air Room Air Room Air Room Air 01/02/20 01/02/20 01/02/20 01/02/20 03:00 03:28 04:05 06:02 Temp 98.0 98.0 Pulse 70 Resp 18 B/P (MAP) 117/61 (79) Pulse Ox 93 O2 Delivery Room Air Room Air Room Air Room Air 01/02/20 01/02/20 01/02/20 01/02/20 06:40 06:57 07:00 08:00 Temp 97.8 97.8 Pulse 64 Resp 16 B/P (MAP) 101/58 (72) Pulse Ox 95 O2 Delivery Room Air Room Air Room Air Room Air 01/02/20 01/02/20 01/02/20 01/02/20 08:36 09:06 10:34 11:00 Resp 16 16 Pulse Ox 96 96 O2 Delivery Room Air Room Air Room Air O2 Flow Rate 2.0 2.0 01/02/20 01/02/20 11:00 12:38 Temp 98.2 98.2 Pulse 65 Resp 18 16 B/P (MAP) 107/63 (78) Pulse Ox 96 O2 Delivery Room Air Intake and Output 01/01/20 01/01/20 01/02/20 14:59 22:59 06:59 Intake Total 0 ml 0 ml Balance 0 ml 0 ml Justicifation of Admission Dx: Justifications for Admission: Justification of Admission Dx: Yes Sepsis: Bacteremia CHIARA POLK MD Jan 02, 2020 15:13
[2020-01-02] MEDS ORDERED: PHYTONADIONE 10 MG/ML AMPUL. SQ ONE (15:30)
[2020-01-02 19:00] VITALS: BP 104/62
--- NOTE | 2020-01-02 19:32 | NUR ---
Sakina condition remains unchanged. continues to have pain and nausea this shift. she was medicated with fentanyl and Zofran iv. ProcalAmine remains infusing. dressing to port a cath site remains clean and dry. she was given Vit k in right hip sq.
[2020-01-02] MEDS: PROCHLORPERAZINE 10 MG/2 ML VIAL. IVP PRN (20:14)
[2020-01-02 23:00] VITALS: BP 111/64
[2020-01-03] MEDS: fentaNYL PF VIAL 100 MCG/2 ML VIAL IVP PRN ×9 (01:57→23:17)
[2020-01-03 03:00] VITALS: BP 105/52
[2020-01-03] MEDS: ONDANSETRON PF 4 MG/2 ML VIAL. IVP PRN ×2 (04:11→14:08)
[2020-01-03 07:00] VITALS: BP 102/65
[2020-01-03 07:52] LABS: BASO % 0 % (0-3); EOS # 0.1 x10^3/uL (0.0-0.7); EOS % 1 % (0-3); HEMATOCRIT 29.3 % (36.0-47.0); HEMOGLOBIN 10.2 g/dL (12.0-15.5); LYMPH # 1.5 x10^3/uL (1.0-4.8); LYMPH % 28 % (24-48); MEAN CORPUSCULAR HEMOGLOBIN 32 pg (25-35); MEAN CORPUSCULAR HGB CONC 35 g/dL (31-37); MEAN CORPUSCULAR VOLUME 92 fL (79-100); MONO # 0.4 x10^3/uL (0.0-1.1); MONO % 7 % (0-9); NEUT # 3.4 x10^3/uL (1.8-7.7); NEUT % 64 % (31-73); PLATELET COUNT 176 x10^3/uL (140-400); RED BLOOD COUNT 3.19 x10^6/uL (3.50-5.40); RED CELL DISTRIBUTION WIDTH 13.1 % (11.5-14.5); WHITE BLOOD COUNT 5.4 x10^3/uL (4.0-11.0)
[2020-01-03 08:12] LABS: CREATININE 0.5 mg/dL (0.6-1.0); GFR 155.7; POTASSIUM 4.1 mmol/L (3.5-5.1)
--- NOTE | 2020-01-03 09:51 | NUR ---
SW following. Discussed with RN, pt on PPN, IV Dapto. Cultures pending for port replacement. SW will continue to follow.
[2020-01-03 11:00] VITALS: BP 98/57
--- NOTE | 2020-01-03 11:38 | PDOC ---
Infectious Disease Note Subjective: Subjective Pt has pain at the Port-A-Cath removal site but improving Nauseous which is chronic, no vomiting No fevers/chills or diarrhea Vital Signs: Vital Signs Vital Signs Date Time Temp Pulse Resp B/P (MAP) Pulse Ox O2 Delivery O2 Flow Rate FiO2 01/03/20 11:14 97 Room Air 01/03/20 11:00 98.1 65 18 98/57 (71) 98.1 01/02/20 11:00 2.0 Physical Exam: PHYSICAL EXAM GENERAL: Propped up in bed, alert awake HEENT: [place]. Oral cavity pink, dry. + bacterial overgrowth on the tongue NECK: Supple LUNGS: Clear. HEART: S1, S2 regular. ABDOMEN: Bowel sounds present, soft and nontender. J-tube clean EXTREMITIES: No edema or cyanosis. SKIN: without rash. NEUROLOGICAL: Alert oriented, x3 no focal neurologic deficit. Right-sided Port-A-Cath removed Medications: Inpatient Meds: Current Medications Medications (Trade) Dose Ordered Sig/Kel Start Time Stop Time Status Last Admin Dose Admin Acetaminophen (Tylenol) 650 mg PRN Q6HRS PRN 12/26/19 18:45 12/27/19 11:50 650 MG Amino Acids/ Glycerin/ Electrolytes 1,000 ml @ 75 mls/hr [id number] 12/27/19 11:30 01/02/20 23:13 75 MLS/HR Benzocaine (Hurricaine One) 1 spray STK-MED ONCE 01/01/20 11:43 01/01/20 11:43 DC Cefazolin Sodium/ Dextrose 50 ml @ 100 mls/hr Q8HRS 12/27/19 12:00 12/29/19 12:38 DC 12/29/19 05:55 100 MLS/HR Daptomycin 440 mg/ Sodium Chloride 50 ml @ 100 mls/hr Q24H 12/29/19 13:00 01/02/20 12:39 100 MLS/HR Diphenhydramine HCl (Benadryl) 25 mg 1X ONCE 12/26/19 16:15 12/26/19 16:16 DC 12/26/19 16:16 25 MG Fentanyl Citrate (Fentanyl 2ml Vial) 50 mcg 1X ONCE 12/31/19 17:45 12/31/19 17:46 DC 12/31/19 17:45 50 MCG Iohexol (Omnipaque 240 Mg/ml) 50 ml 1X ONCE 12/28/19 13:00 12/28/19 13:01 DC 12/28/19 12:52 15 ML Lidocaine HCl (Buffered Lidocaine 1%) 3 ml STK-MED ONCE 12/28/19 12:54 12/28/19 12:55 DC Lidocaine HCl (Viscous Lidocaine) 15 ml STK-MED ONCE 01/01/20 11:43 01/01/20 11:43 DC Lidocaine HCl (Xylocaine 2% Topical 30gm Tube) 30 joy STK-MED ONCE 01/01/20 11:43 01/01/20 11:43 DC Lidocaine/ Epinephrine (LIDOCAINE 1%-EPI 1:100,000 Multi-Dose) 20 ml 1X ONCE 12/31/19 14:15 12/31/19 14:19 DC 12/31/19 14:15 5 ML Midazolam HCl (Versed) 2 mg 1X ONCE 12/31/19 14:15 12/31/19 14:19 DC 12/31/19 14:15 1 MG Ondansetron HCl (Zofran) 4 mg PRN Q6HRS PRN 12/26/19 18:45 01/03/20 04:11 4 MG Phytonadione (Vitamin K Ampule) 10 mg 1X ONCE 01/02/20 15:30 01/02/20 15:31 DC 01/02/20 16:22 10 MG Piperacillin Sod/ Tazobactam Sod 3.375 gm/Sodium Chloride 50 ml @ 100 mls/hr 1X ONCE 12/26/19 16:15 12/27/19 10:20 DC 12/26/19 16:15 100 MLS/HR Potassium Chloride/Water 100 ml @ 100 mls/hr Q1H 12/28/19 13:00 12/28/19 14:59 DC 12/28/19 18:41 100 MLS/HR Prochlorperazine Edisylate (Compazine) 10 mg PRN Q8HRS PRN 12/29/19 15:00 01/02/20 20:14 10 MG Propofol (Diprivan) 200 mg STK-MED ONCE 01/01/20 13:43 01/01/20 13:44 DC Ringer's Solution 1,000 ml @ 50 mls/hr Q20H 01/01/20 14:14 01/02/20 02:13 DC Sodium Chloride 1,000 ml @ 1,000 mls/hr 1X ONCE 12/26/19 15:30 12/26/19 16:29 DC 12/26/19 16:16 1,000 MLS/HR Vancomycin HCl (Vanco Per Pharmacy) 1 each PRN DAILY PRN 12/26/19 16:15 12/29/19 12:43 DC 12/29/19 12:34 1 EACH Vancomycin HCl (Vancomycin Trough Level) 1 each 1X ONCE 12/30/19 18:30 12/30/19 18:31 Cancel Vancomycin HCl 1.25 gm/Sodium Chloride 250 ml @ 250 mls/hr Q6H 12/29/19 10:00 12/29/19 12:41 DC 12/29/19 10:48 250 MLS/HR Vancomycin HCl 1.75 gm/Sodium Chloride 500 ml @ 250 mls/hr Q8H 12/29/19 19:00 12/29/19 12:40 DC Vancomycin HCl 1 gm/Sodium Chloride 250 ml @ 250 mls/hr Q8H 12/27/19 01:00 12/27/19 20:25 DC 12/27/19 18:09 250 MLS/HR Labs: Lab Laboratory Tests Test 01/03/20 07:05 01/03/20 07:15 Sodium Level 140 mmol/L (136-145) Potassium Level 4.1 mmol/L (3.5-5.1) Chloride Level 103 mmol/L (98-107) Carbon Dioxide Level 29 mmol/L (21-32) Anion Gap 8 (6-14) Blood Urea Nitrogen 9 mg/dL (7-20) Creatinine 0.5 mg/dL (0.6-1.0) Estimated GFR (Cockcroft-Gault) 155.7 Glucose Level 85 mg/dL (70-99) Calcium Level 9.0 mg/dL (8.5-10.1) White Blood Count 5.4 x10^3/uL (4.0-11.0) Red Blood Count 3.19 x10^6/uL (3.50-5.40) Hemoglobin 10.2 g/dL (12.0-15.5) Hematocrit 29.3 % (36.0-47.0) Mean Corpuscular Volume 92 fL (79-100) Mean Corpuscular Hemoglobin 32 pg (25-35) Mean Corpuscular Hemoglobin Concent 35 g/dL (31-37) Red Cell Distribution Width 13.1 % (11.5-14.5) Platelet Count 176 x10^3/uL (140-400) Neutrophils (%) (Auto) 64 % (31-73) Lymphocytes (%) (Auto) 28 % (24-48) Monocytes (%) (Auto) 7 % (0-9) Eosinophils (%) (Auto) 1 % (0-3) Basophils (%) (Auto) 0 % (0-3) Neutrophils # (Auto) 3.4 x10^3/uL (1.8-7.7) Lymphocytes # (Auto) 1.5 x10^3/uL (1.0-4.8) Monocytes # (Auto) 0.4 x10^3/uL (0.0-1.1) Eosinophils # (Auto) 0.1 x10^3/uL (0.0-0.7) Basophils # (Auto) 0.0 x10^3/uL (0.0-0.2) Objective: Assessment: 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 Status post Port-A-Cath removal 12/31/2019 Cath tip positive Repeat blood culture negative from 12/29 Follow-up blood culture after cath removed from 01/01 LAVELL negative for vegetation Fever - better Pancytopenia likely from sepsis improving Gastroparesis, on total parenteral nutrition at home. s/p G-tube exchange and j-tube injection, 12/27 Plan: Plan of Care Continue daptomycin CK 27 from 12/31 Monitor for abx toxicity F/u BC from 01/01 after Port-A-Cath removal Maintain aspiration precautions Hold Port-A-Cath insertion for now GAYLE RODRIGUEZ MD Jan 03, 2020 11:38
[2020-01-03] MEDS: DAPTOmycin (GENERIC) IVPB 440 MG in IV NORMAL SALINE 50ML 50 ML IV SCH (12:21)
[2020-01-03] MEDS: AMINO AC 3%/ELECTROLYTE/GLYCER 1,000 ML IV SCH (12:23)
[2020-01-03 15:00] VITALS: BP 106/67
--- NOTE | 2020-01-03 15:30 | PDOC ---
PROGRESS NOTES Date of Service: DATE: 01/03/20 TIME: 15:29 Chief Complaint Chief Complaint Sepsis 3/4 blood culture bottles positive for gram + cocci in clusters Bicytopenia Hypotension Severe idiopathic gastroparesis Blood culture positive with Staphylococcus, 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 39 MIN PT EXAM, CHART REVIEW, > 50% OF TIME SPENT WITH EXAM, CHART REVIEW, PT CARE COORDINATION History of Present Illness History of Present Illness 01/02, cx from yesterdya pending, if cx neg, may replace port cont current othersie 01/01, reviewd 12/31. LAVELL Laying in bed in minimal distress Complains of chills, much better, though, Chart reviewed Discussed with RN Vitals Vitals Vital Signs Date Time Temp Pulse Resp B/P (MAP) Pulse Ox O2 Delivery O2 Flow Rate FiO2 01/03/20 13:25 97 Room Air 01/03/20 11:00 98.1 65 18 98/57 (71) 98.1 01/02/20 11:00 2.0 Physical Exam Physical Exam GENERAL: Propped up in bed, alert awake HEENT: PAYTON. Oral cavity pink, dry. + bacterial overgrowth on the tongue NECK: Supple LUNGS: Clear. HEART: S1, S2 regular. ABDOMEN: Bowel sounds present, soft and nontender. J-tube clean EXTREMITIES: No edema or cyanosis. SKIN: without rash. NEUROLOGICAL: Alert oriented, x3 no focal neurologic deficit. Right-sided Port-A-Cath removed General: Alert, Oriented X3 Heart: Regular rate Lungs: Clear Abdomen: Normal bowel sounds, Soft Extremities: No clubbing, No cyanosis Skin: No rashes Labs LABS Laboratory Tests Test 01/03/20 07:05 01/03/20 07:15 Sodium Level 140 mmol/L (136-145) Potassium Level 4.1 mmol/L (3.5-5.1) Chloride Level 103 mmol/L (98-107) Carbon Dioxide Level 29 mmol/L (21-32) Anion Gap 8 (6-14) Blood Urea Nitrogen 9 mg/dL (7-20) Creatinine 0.5 mg/dL (0.6-1.0) Estimated GFR (Cockcroft-Gault) 155.7 Glucose Level 85 mg/dL (70-99) Calcium Level 9.0 mg/dL (8.5-10.1) White Blood Count 5.4 x10^3/uL (4.0-11.0) Red Blood Count 3.19 x10^6/uL (3.50-5.40) Hemoglobin 10.2 g/dL (12.0-15.5) Hematocrit 29.3 % (36.0-47.0) Mean Corpuscular Volume 92 fL (79-100) Mean Corpuscular Hemoglobin 32 pg (25-35) Mean Corpuscular Hemoglobin Concent 35 g/dL (31-37) Red Cell Distribution Width 13.1 % (11.5-14.5) Platelet Count 176 x10^3/uL (140-400) Neutrophils (%) (Auto) 64 % (31-73) Lymphocytes (%) (Auto) 28 % (24-48) Monocytes (%) (Auto) 7 % (0-9) Eosinophils (%) (Auto) 1 % (0-3) Basophils (%) (Auto) 0 % (0-3) Neutrophils # (Auto) 3.4 x10^3/uL (1.8-7.7) Lymphocytes # (Auto) 1.5 x10^3/uL (1.0-4.8) Monocytes # (Auto) 0.4 x10^3/uL (0.0-1.1) Eosinophils # (Auto) 0.1 x10^3/uL (0.0-0.7) Basophils # (Auto) 0.0 x10^3/uL (0.0-0.2) Assessment and Plan Assessmemt and Plan Problems Medical Problems: (1) Fever Status: Acute (2) Infection due to Port-A-Cath Status: Acute Comment Review of Relevant I have reviewed the following items lalo (where applicable) has been applied. Labs Laboratory Tests Test 01/02/20 06:45 01/03/20 07:05 01/03/20 07:15 White Blood Count 5.3 x10^3/uL (4.0-11.0) 5.4 x10^3/uL (4.0-11.0) Red Blood Count 2.96 x10^6/uL (3.50-5.40) 3.19 x10^6/uL (3.50-5.40) Hemoglobin 9.7 g/dL (12.0-15.5) 10.2 g/dL (12.0-15.5) Hematocrit 27.6 % (36.0-47.0) 29.3 % (36.0-47.0) Mean Corpuscular Volume 93 fL (79-100) 92 fL (79-100) Mean Corpuscular Hemoglobin 33 pg (25-35) 32 pg (25-35) Mean Corpuscular Hemoglobin Concent 35 g/dL (31-37) 35 g/dL (31-37) Red Cell Distribution Width 13.3 % (11.5-14.5) 13.1 % (11.5-14.5) Platelet Count 163 x10^3/uL (140-400) 176 x10^3/uL (140-400) Neutrophils (%) (Auto) 63 % (31-73) 64 % (31-73) Lymphocytes (%) (Auto) 28 % (24-48) 28 % (24-48) Monocytes (%) (Auto) 8 % (0-9) 7 % (0-9) Eosinophils (%) (Auto) 1 % (0-3) 1 % (0-3) Basophils (%) (Auto) 0 % (0-3) 0 % (0-3) Neutrophils # (Auto) 3.4 x10^3/uL (1.8-7.7) 3.4 x10^3/uL (1.8-7.7) Lymphocytes # (Auto) 1.5 x10^3/uL (1.0-4.8) 1.5 x10^3/uL (1.0-4.8) Monocytes # (Auto) 0.4 x10^3/uL (0.0-1.1) 0.4 x10^3/uL (0.0-1.1) Eosinophils # (Auto) 0.0 x10^3/uL (0.0-0.7) 0.1 x10^3/uL (0.0-0.7) Basophils # (Auto) 0.0 x10^3/uL (0.0-0.2) 0.0 x10^3/uL (0.0-0.2) Sodium Level 140 mmol/L (136-145) 140 mmol/L (136-145) Potassium Level 3.9 mmol/L (3.5-5.1) 4.1 mmol/L (3.5-5.1) Chloride Level 103 mmol/L (98-107) 103 mmol/L (98-107) Carbon Dioxide Level 27 mmol/L (21-32) 29 mmol/L (21-32) Anion Gap 10 (6-14) 8 (6-14) Blood Urea Nitrogen 9 mg/dL (7-20) 9 mg/dL (7-20) Creatinine 0.5 mg/dL (0.6-1.0) 0.5 mg/dL (0.6-1.0) Estimated GFR (Cockcroft-Gault) 155.7 155.7 Glucose Level 89 mg/dL (70-99) 85 mg/dL (70-99) Calcium Level 8.5 mg/dL (8.5-10.1) 9.0 mg/dL (8.5-10.1) Laboratory Tests Test 01/03/20 07:05 01/03/20 07:15 Sodium Level 140 mmol/L (136-145) Potassium Level 4.1 mmol/L (3.5-5.1) Chloride Level 103 mmol/L (98-107) Carbon Dioxide Level 29 mmol/L (21-32) Anion Gap 8 (6-14) Blood Urea Nitrogen 9 mg/dL (7-20) Creatinine 0.5 mg/dL (0.6-1.0) Estimated GFR (Cockcroft-Gault) 155.7 Glucose Level 85 mg/dL (70-99) Calcium Level 9.0 mg/dL (8.5-10.1) White Blood Count 5.4 x10^3/uL (4.0-11.0) Red Blood Count 3.19 x10^6/uL (3.50-5.40) Hemoglobin 10.2 g/dL (12.0-15.5) Hematocrit 29.3 % (36.0-47.0) Mean Corpuscular Volume 92 fL (79-100) Mean Corpuscular Hemoglobin 32 pg (25-35) Mean Corpuscular Hemoglobin Concent 35 g/dL (31-37) Red Cell Distribution Width 13.1 % (11.5-14.5) Platelet Count 176 x10^3/uL (140-400) Neutrophils (%) (Auto) 64 % (31-73) Lymphocytes (%) (Auto) 28 % (24-48) Monocytes (%) (Auto) 7 % (0-9) Eosinophils (%) (Auto) 1 % (0-3) Basophils (%) (Auto) 0 % (0-3) Neutrophils # (Auto) 3.4 x10^3/uL (1.8-7.7) Lymphocytes # (Auto) 1.5 x10^3/uL (1.0-4.8) Monocytes # (Auto) 0.4 x10^3/uL (0.0-1.1) Eosinophils # (Auto) 0.1 x10^3/uL (0.0-0.7) Basophils # (Auto) 0.0 x10^3/uL (0.0-0.2) Microbiology 01/02/20 Blood Culture - Preliminary, Resulted NO GROWTH AFTER 1 DAY 12/31/19 Gram Stain - Final, Resulted 12/31/19 Aerobic and Anaerobic Culture - Preliminary, Resulted 12/31/19 Antimicrobic Susceptibility - Preliminary, Resulted Medications Current Medications Sodium Chloride 1,000 ml @ 1,000 mls/hr Q1H IV Last administered on 12/26/19at 14:52; Start 12/26/19 at 14:44; Stop 12/26/19 at 15:43; Status DC Acetaminophen (Tylenol) 1,000 mg 1X ONCE PO Last administered on 12/26/19at 14:52; Start 12/26/19 at 14:45; Stop 12/26/19 at 14:52; Status DC Fentanyl Citrate (Fentanyl 2ml Vial) 50 mcg 1X ONCE IVP Last administered on 12/26/19at 14:51; Start 12/26/19 at 14:45; Stop 12/26/19 at 14:52; Status DC Sodium Chloride 1,000 ml @ 1,000 mls/hr 1X ONCE IV Last administered on 12/26/19at 16:16; Start 12/26/19 at 15:30; Stop 12/26/19 at 16:29; Status DC Piperacillin Sod/ Tazobactam Sod 3.375 gm/Sodium Chloride 50 ml @ 100 mls/hr 1X ONCE IV Last administered on 12/26/19at 16:15; Start 12/26/19 at 16:15; Stop 12/27/19 at 10:20; Status DC Diphenhydramine HCl (Benadryl) 25 mg 1X ONCE IVP Last administered on 12/26/19at 16:16; Start 12/26/19 at 16:15; Stop 12/26/19 at 16:16; Status DC Vancomycin HCl (Vanco Per Pharmacy) 1 each PRN DAILY PRN MC SEE COMMENTS Last administered on 12/29/19at 12:34; Start 12/26/19 at 16:15; Stop 12/29/19 at 12:43; Status DC Vancomycin HCl 1.75 gm/Sodium Chloride 500 ml @ 250 mls/hr 1X ONCE IV Last administered on 12/26/19at 16:59; Start 12/26/19 at 17:00; Stop 12/26/19 at 18:59; Status DC Fentanyl Citrate (Fentanyl 2ml Vial) 50 mcg 1X ONCE IVP Last administered on 12/26/19at 16:59; Start 12/26/19 at 16:45; Stop 12/26/19 at 16:46; Status DC Vancomycin HCl 1 gm/Sodium Chloride 250 ml @ 250 mls/hr Q8H IV Last administered on 12/27/19 18:09; Start 12/27/19 at 01:00; Stop 12/27/19 at 20:25; Status DC Vancomycin HCl (Vancomycin Trough Level) 1 each 1X ONCE MC Last administered on 12/27/19at 16:30; Start 12/27/19 at 16:30; Stop 12/27/19 at 16:31; Status DC Fentanyl Citrate (Fentanyl 2ml Vial) 50 mcg PRN Q2HR PRN IVP PAIN Last administered on 01/03/20at 13:01; Start 12/26/19 at 18:45 Ondansetron HCl (Zofran) 4 mg PRN Q6HRS PRN IVP NAUSEA/VOMITING 1ST CHOICE Last administered on 01/03/20at 14:08; Start 12/26/19 at 18:45 Prochlorperazine Edisylate (Compazine) 10 mg PRN Q8HRS PRN IM NAUSEA/VOMITING Last administered on 12/28/19at 12:28; Start 12/26/19 at 18:45; Stop 12/29/19 at 14:52; Status DC Acetaminophen (Tylenol) 650 mg PRN Q6HRS PRN PEG MILD PAIN / TEMP > 100.3'F Last administered on 12/27/19at 11:50; Start 12/26/19 at 18:45 Cefazolin Sodium/ Dextrose 50 ml @ 100 mls/hr Q8HRS IV ; Start 12/27/19 at 11:00; Status Cancel Cefazolin Sodium/ Dextrose 50 ml @ 100 mls/hr Q8HRS IV Last administered on 12/29/19at 05:55; Start 12/27/19 at 12:00; Stop 12/29/19 at 12:38; Status DC Amino Acids/ Glycerin/ Electrolytes 1,000 ml @ 75 mls/hr [id number] IV Last administered on 01/03/20at 12:23; Start 12/27/19 at 11:30 Vancomycin HCl 1.25 gm/Sodium Chloride 250 ml @ 250 mls/hr Q8H IV Last administered on 12/29/19at 02:00; Start 12/28/19 at 02:00; Stop 12/29/19 at 10:05; Status DC Vancomycin HCl (Vancomycin Trough Level) 1 each 1X ONCE MC Last administered on 12/29/19at 09:30; Start 12/29/19 at 09:30; Stop 12/29/19 at 09:31; Status DC Iohexol (Omnipaque 240 Mg/ml) 50 ml STK-MED ONCE .ROUTE ; Start 12/28/19 at 11:26; Stop 12/28/19 at 11:26; Status DC Midazolam HCl (Versed) 2 mg STK-MED ONCE .ROUTE ; Start 12/28/19 at 12:21; Stop 12/28/19 at 12:22; Status DC Fentanyl Citrate (Fentanyl 2ml Vial) 100 mcg STK-MED ONCE .ROUTE ; Start 12/28/19 at 12:21; Stop 12/28/19 at 12:22; Status DC Potassium Chloride/Water 100 ml @ 100 mls/hr Q1H IV Last administered on 12/28/19at 18:41; Start 12/28/19 at 13:00; Stop 12/28/19 at 14:59; Status DC Lidocaine HCl (Buffered Lidocaine 1%) 3 ml 1X ONCE IJ Last administered on 12/28/19at 12:50; Start 12/28/19 at 13:00; Stop 12/28/19 at 13:01; Status DC Midazolam HCl (Versed) 2 mg 1X ONCE IV Last administered on 12/28/19at 12:45; Start 12/28/19 at 13:00; Stop 12/28/19 at 13:01; Status DC Iohexol (Omnipaque 240 Mg/ml) 50 ml 1X ONCE IJ Last administered on 12/28/19at 12:52; Start 12/28/19 at 13:00; Stop 12/28/19 at 13:01; Status DC Lidocaine HCl (Buffered Lidocaine 1%) 3 ml STK-MED ONCE .ROUTE ; Start 12/28/19 at 12:54; Stop 12/28/19 at 12:55; Status DC Fentanyl Citrate (Fentanyl 2ml Vial) 100 mcg 1X ONCE IV Last administered on 12/28/19at 12:50; Start 12/28/19 at 13:15; Stop 12/28/19 at 13:16; Status DC Vancomycin HCl 1.25 gm/Sodium Chloride 250 ml @ 250 mls/hr Q6H IV ; Start 12/29/19 at 10:00; Status Cancel Vancomycin HCl 1.25 gm/Sodium Chloride 250 ml @ 250 mls/hr Q6H IV ; Start 12/29/19 at 10:08; Status Cancel Vancomycin HCl 1.25 gm/Sodium Chloride 250 ml @ 250 mls/hr Q6H IV Last administered on 12/29/19at 10:48; Start 12/29/19 at 10:00; Stop 12/29/19 at 12:41; Status DC Vancomycin HCl 1.75 gm/Sodium Chloride 500 ml @ 250 mls/hr Q8H IV ; Start 12/29/19 at 19:00; Stop 12/29/19 at 12:40; Status DC Vancomycin HCl (Vancomycin Trough Level) 1 each 1X ONCE MC ; Start 12/30/19 at 18:30; Stop 12/30/19 at 18:31; Status Cancel Daptomycin 440 mg/ Sodium Chloride 50 ml @ 100 mls/hr Q24H IV Last ad ministered on 01/03/20at 12:21; Start 12/29/19 at 13:00 Prochlorperazine Edisylate (Compazine) 10 mg PRN Q8HRS PRN IVP NAUSEA/VOMITING 2ND CHOICE Last administered on 01/02/20at 20:14; Start 12/29/19 at 15:00 Lidocaine/ Epinephrine (LIDOCAINE 1%-EPI 1:100,000 Multi-Dose) 20 ml STK-MED ONCE .ROUTE ; Start 12/31/19 at 13:28; Stop 12/31/19 at 13:28; Status DC Midazolam HCl (Versed) 2 mg STK-MED ONCE .ROUTE ; Start 12/31/19 at 14:03; Stop 12/31/19 at 14:04; Status DC Fentanyl Citrate (Fentanyl 2ml Vial) 100 mcg STK-MED ONCE .ROUTE ; Start 12/31/19 at 14:04; Stop 12/31/19 at 14:04; Status DC Midazolam HCl (Versed) 2 mg 1X ONCE IV Last administered on 12/31/19at 14:15; Start 12/31/19 at 14:15; Stop 12/31/19 at 14:19; Status DC Fentanyl Citrate (Fentanyl 2ml Vial) 100 mcg 1X ONCE IV Last administered on 12/31/19at 14:15; Start 12/31/19 at 14:15; Stop 12/31/19 at 14:19; Status DC Lidocaine/ Epinephrine (LIDOCAINE 1%-EPI 1:100,000 Multi-Dose) 20 ml 1X ONCE INJ Last administered on 12/31/19at 14:15; Start 12/31/19 at 14:15; Stop 12/31/19 at 14:19; Status DC Fentanyl Citrate (Fentanyl 2ml Vial) 50 mcg 1X ONCE IVP Last administered on 12/31/19at 17:45; Start 12/31/19 at 17:45; Stop 12/31/19 at 17:46; Status DC Lidocaine HCl (Viscous Lidocaine) 15 ml STK-MED ONCE .ROUTE ; Start 01/01/20 at 11:43; Stop 01/01/20 at 11:43; Status DC Lidocaine HCl (Xylocaine 2% Topical 30gm Tube) 30 joy STK-MED ONCE TP ; Start 01/01/20 at 11:43; Stop 01/01/20 at 11:43; Status DC Benzocaine (Hurricaine One) 1 spray STK-MED ONCE .ROUTE ; Start 01/01/20 at 11:43; Stop 01/01/20 at 11:43; Status DC Propofol (Diprivan) 200 mg STK-MED ONCE IV ; Start 01/01/20 at 13:43; Stop 01/01/20 at 13:44; Status DC Ringer's Solution 1,000 ml @ 50 mls/hr Q20H IV ; Start 01/01/20 at 14:14; Stop 01/02/20 at 02:13; Status DC Phytonadione (Vitamin K Ampule) 10 mg 1X ONCE SQ Last administered on 01/02/20at 16:22; Start 01/02/20 at 15:30; Stop 01/02/20 at 15:31; Status DC Active Scripts Active [Tpn Per Pharmacy] 1 EACH Each 1 Each MC PRN DAILY PRN 30 Days Tpn Electrolytes Vial (Sodium/K+/Mag/Ca/Chlor/Acetate) 20 Ml Vial 20 Ml IV DAILY06 30 Days Metoclopramide Hcl 5 Mg/1 Ml Vial 10 Mg IVP PRN Q6HRS PRN 14 Days [Pantoprazole Iv Push] 40 MG Vial 40 Mg IVP BIDAC 30 Days Ondansetron Hcl 4 Mg/2 Ml Vial (Ondansetron Hcl/Pf) 4 Mg/2 Ml Vial 4 Mg IVP PRN Q6HRS PRN 30 Days Prochlorperazine Edisylate 10 Mg/2 Ml Vial 10 Mg IV PRN Q6HRS PRN 14 Days Milk Of Magnesia (Magnesium Hydroxide) 400 Mg/5 Ml Oral.susp 2,400 Mg JT DAILY 30 Days Enemeez (Docusate Sodium) 283 Mg/5 Ml Enema 283 Mg PA PRN DAILY PRN 30 Days Bisacodyl 10 Mg Supp.rect 10 Mg PA PRN DAILY PRN 30 Days Nystatin 100,000 Unit/1 Ml Oral.susp 5 Ml SWSW [id number] 10 Days Hydrocodone-Apap 7.5-325/15 Soln (Hydrocodone Bit/Acetaminophen) 15 Ml Solution 15 Ml JT PRN Q6HRS PRN Reported Metoprolol Tartrate 50 Mg Tablet 1 Tab PO BID Advair Hfa 230-21 Mcg Inhaler (Fluticasone/Salmeterol) 12 Gm Hfa.aer.ad 1 Inh IH BID Dicyclomine Hcl 20 Mg Tablet 20 Mg GT PRN QID PRN Olopatadine HCl 5 Ml Drops 0.1 % OP PRN DAILY PRN Promethazine Hcl 12.5 Mg Tablet 25 Mg GT Q6H PRN Trazodone Hcl 50 Mg Tablet 50 Mg GT HS Coq-10 (Ubidecarenone) 100 Mg Capsule 200 Mg GT DAILY Vitamin D3 (Cholecalciferol (Vitamin D3)) 4,000 Unit Capsule 2,000 Unit PO HS Xyzal (Levocetirizine Dihydrochloride) 5 Mg Tablet 5 Mg GT HS Proair Hfa (Albuterol Sulfate) 8.5 Gm Hfa.aer.ad 2 Puff IH PRN Q4-6HRS PRN 21 Days Ipratropium Ames 30 Ml Berkley 1 Berkley NS DAILY Duoneb 0.5-3(2.5) Mg/3 Ml (Albuterol/Ipratropium) 3 Ml Ampul.neb 3 Ml NEB PRN QID PRN Montelukast Sodium Tablet (Montelukast Sodium) 10 Mg Tablet 10 Mg GT DAILY PRN Multi Vitamin Daily (Multivitamin) 1 Each Tablet 1 Each GT DAILY Vitals/I & O Vital Sign - Last 24 Hours 01/02/20 01/02/20 01/02/20 01/02/20 16:19 18:12 19:00 19:48 Temp 98.2 98.2 Pulse 64 Resp 16 16 18 16 B/P (MAP) 104/62 (76) Pulse Ox 97 O2 Delivery Room Air Room Air Room Air 01/02/20 01/02/20 01/02/20 01/02/20 20:00 20:15 20:45 22:20 Resp 14 16 16 O2 Delivery Room Air Room Air Room Air Room Air 01/02/20 01/02/20 01/03/20 01/03/20 22:53 23:00 01:57 02:28 Temp 97.7 97.7 Pulse 71 Resp 14 18 14 14 B/P (MAP) 111/64 (80) Pulse Ox 97 O2 Delivery Room Air Room Air Room Air Room Air 01/03/20 01/03/20 01/03/20 01/03/20 03:00 04:12 04:51 07:00 Temp 98.0 98.1 98.0 98.1 Pulse 72 68 Resp 18 16 14 18 B/P (MAP) 105/52 (69) 102/65 (77) Pulse Ox 95 97 O2 Delivery Room Air Room Air Room Air Room Air 01/03/20 01/03/20 01/03/20 01/03/20 07:08 08:00 09:12 10:38 Resp 16 Pulse Ox 97 97 O2 Delivery Room Air Room Air Room Air Room Air 01/03/20 01/03/20 01/03/20 01/03/20 11:00 11:14 13:01 13:25 Temp 98.1 98.1 Pulse 65 Resp 18 B/P (MAP) 98/57 (71) Pulse Ox 97 97 97 97 O2 Delivery Room Air Room Air Room Air Room Air Intake and Output 01/02/20 01/02/20 01/03/20 15:00 23:00 07:00 Intake Total 0 ml 150 ml Balance 0 ml 150 ml Justicifation of Admission Dx: Justifications for Admission: Justification of Admission Dx: Yes Sepsis: Bacteremia KRISTEN ESPAÑA MD Jan 03, 2020 15:30
[2020-01-03] MEDS: PROCHLORPERAZINE 10 MG/2 ML VIAL. IVP PRN (18:07)
[2020-01-03 19:00] VITALS: BP 103/61
[2020-01-03 23:00] VITALS: BP 96/58
[2020-01-04] MEDS: fentaNYL PF VIAL 100 MCG/2 ML VIAL IVP PRN ×4 (02:05→11:00)
[2020-01-04] MEDS: AMINO AC 3%/ELECTROLYTE/GLYCER 1,000 ML IV SCH ×2 (02:05→17:09)
[2020-01-04 03:00] VITALS: BP 94/57
[2020-01-04] MEDS: ONDANSETRON PF 4 MG/2 ML VIAL. IVP PRN ×2 (04:11→16:16)
[2020-01-04 07:00] VITALS: BP 96/56
--- NOTE | 2020-01-04 09:37 | NUR ---
SW following. Discussed with RN, cultures pending -IV daptomycin. Port to be replaced if cultures negative. Pt on PPN. SW will continue to follow.
--- NOTE | 2020-01-04 09:49 | PDOC ---
Infectious Disease Note Subjective: Subjective Pt has pain at the Port-A-Cath removal site but improving Nauseous which is chronic, no vomiting No fevers/chills or diarrhea Vital Signs: Vital Signs Vital Signs Date Time Temp Pulse Resp B/P (MAP) Pulse Ox O2 Delivery O2 Flow Rate FiO2 01/04/20 07:00 98.0 68 18 96/56 (69) 99 Room Air 98.0 01/04/20 02:35 2.0 Physical Exam: PHYSICAL EXAM GENERAL: Propped up in bed, alert awake HEENT: PAYTON. Oral cavity pink, dry. + bacterial overgrowth on the tongue NECK: Supple LUNGS: Clear. HEART: S1, S2 regular. ABDOMEN: Bowel sounds present, soft and nontender. J-tube clean EXTREMITIES: No edema or cyanosis. SKIN: without rash. NEUROLOGICAL: Alert oriented, x3 no focal neurologic deficit. Right-sided Port-A-Cath removed Medications: Inpatient Meds: Current Medications Medications (Trade) Dose Ordered Sig/Kel Start Time Stop Time Status Last Admin Dose Admin Acetaminophen (Tylenol) 650 mg PRN Q6HRS PRN 12/26/19 18:45 12/27/19 11:50 650 MG Amino Acids/ Glycerin/ Electrolytes 1,000 ml @ 75 mls/hr [id number] 12/27/19 11:30 01/04/20 02:05 75 MLS/HR Benzocaine (Hurricaine One) 1 spray STK-MED ONCE 01/01/20 11:43 01/01/20 11:43 DC Cefazolin Sodium/ Dextrose 50 ml @ 100 mls/hr Q8HRS 12/27/19 12:00 12/29/19 12:38 DC 12/29/19 05:55 100 MLS/HR Daptomycin 440 mg/ Sodium Chloride 50 ml @ 100 mls/hr Q24H 12/29/19 13:00 01/03/20 12:21 100 MLS/HR Diphenhydramine HCl (Benadryl) 25 mg 1X ONCE 12/26/19 16:15 12/26/19 16:16 DC 12/26/19 16:16 25 MG Fentanyl Citrate (Fentanyl 2ml Vial) 50 mcg 1X ONCE 12/31/19 17:45 12/31/19 17:46 DC 12/31/19 17:45 50 MCG Iohexol (Omnipaque 240 Mg/ml) 50 ml 1X ONCE 12/28/19 13:00 12/28/19 13:01 DC 12/28/19 12:52 15 ML Lidocaine HCl (Buffered Lidocaine 1%) 3 ml STK-MED ONCE 12/28/19 12:54 12/28/19 12:55 DC Lidocaine HCl (Viscous Lidocaine) 15 ml STK-MED ONCE 01/01/20 11:43 01/01/20 11:43 DC Lidocaine HCl (Xylocaine 2% Topical 30gm Tube) 30 joy STK-MED ONCE 01/01/20 11:43 01/01/20 11:43 DC Lidocaine/ Epinephrine (LIDOCAINE 1%-EPI 1:100,000 Multi-Dose) 20 ml 1X ONCE 12/31/19 14:15 12/31/19 14:19 DC 12/31/19 14:15 5 ML Midazolam HCl (Versed) 2 mg 1X ONCE 12/31/19 14:15 12/31/19 14:19 DC 12/31/19 14:15 1 MG Ondansetron HCl (Zofran) 4 mg PRN Q6HRS PRN 12/26/19 18:45 01/04/20 04:11 4 MG Phytonadione (Vitamin K Ampule) 10 mg 1X ONCE 01/02/20 15:30 01/02/20 15:31 DC 01/02/20 16:22 10 MG Piperacillin Sod/ Tazobactam Sod 3.375 gm/Sodium Chloride 50 ml @ 100 mls/hr 1X ONCE 12/26/19 16:15 12/27/19 10:20 DC 12/26/19 16:15 100 MLS/HR Potassium Chloride/Water 100 ml @ 100 mls/hr Q1H 12/28/19 13:00 12/28/19 14:59 DC 12/28/19 18:41 100 MLS/HR Prochlorperazine Edisylate (Compazine) 10 mg PRN Q8HRS PRN 12/29/19 15:00 01/03/20 18:07 10 MG Propofol (Diprivan) 200 mg STK-MED ONCE 01/01/20 13:43 01/01/20 13:44 DC Ringer's Solution 1,000 ml @ 50 mls/hr Q20H 01/01/20 14:14 01/02/20 02:13 DC Sodium Chloride 1,000 ml @ 1,000 mls/hr 1X ONCE 12/26/19 15:30 12/26/19 16:29 DC 12/26/19 16:16 1,000 MLS/HR Vancomycin HCl (Vanco Per Pharmacy) 1 each PRN DAILY PRN 12/26/19 16:15 12/29/19 12:43 DC 12/29/19 12:34 1 EACH Vancomycin HCl (Vancomycin Trough Level) 1 each 1X ONCE 12/30/19 18:30 12/30/19 18:31 Cancel Vancomycin HCl 1.25 gm/Sodium Chloride 250 ml @ 250 mls/hr Q6H 12/29/19 10:00 12/29/19 12:41 DC 12/29/19 10:48 250 MLS/HR Vancomycin HCl 1.75 gm/Sodium Chloride 500 ml @ 250 mls/hr Q8H 12/29/19 19:00 12/29/19 12:40 DC Vancomycin HCl 1 gm/Sodium Chloride 250 ml @ 250 mls/hr Q8H 12/27/19 01:00 12/27/19 20:25 DC 12/27/19 18:09 250 MLS/HR Objective: Assessment: 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 Status post Port-A-Cath removal 12/31/2019 Cath tip positive Repeat blood culture negative from 12/29 Follow-up blood culture after cath removed from 01/01 LAVELL negative for vegetation Fever - better Pancytopenia likely from sepsis improving Gastroparesis, on total parenteral nutrition at home. s/p G-tube exchange and j-tube injection, 12/27 Plan: Plan of Care Continue daptomycin CK 27 from 12/31 Monitor for abx toxicity F/u BC from 01/01 negative so far Maintain aspiration precautions GAYLE RODRIGUEZ MD Jan 04, 2020 09:49
[2020-01-04 11:01] VITALS: BP 98/60
--- NOTE | 2020-01-04 11:55 | PDOC ---
PROGRESS NOTES Date of Service: DATE: 01/04/20 TIME: 11:51 Chief Complaint Chief Complaint Sepsis 3/4 blood culture bottles positive for gram + cocci in clusters Bicytopenia Hypotension Severe idiopathic gastroparesis Blood culture positive with Staphylococcus, 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 39 MIN PT EXAM, CHART REVIEW, > 50% OF TIME SPENT WITH EXAM, CHART REVIEW, PT CARE COORDINATION History of Present Illness History of Present Illness 01/03, plan place port o cath tuesday pain up, at priro cath side 01/02, cx from yesterdya pending, if cx neg, may replace port cont current othersie 01/01, reviewd 12/31. LAVELL Laying in bed in minimal distress Complains of chills, much better, though, Chart reviewed Discussed with RN Vitals Vitals Vital Signs Date Time Temp Pulse Resp B/P (MAP) Pulse Ox O2 Delivery O2 Flow Rate FiO2 01/04/20 11:01 98.0 70 18 98/60 (73) 99 Room Air 98.0 01/04/20 02:35 2.0 Physical Exam Physical Exam GENERAL: Propped up in bed, alert awake HEENT: PAYTON. Oral cavity pink, dry. + bacterial overgrowth on the tongue NECK: Supple LUNGS: Clear. HEART: S1, S2 regular. ABDOMEN: Bowel sounds present, soft and nontender. J-tube clean EXTREMITIES: No edema or cyanosis. SKIN: without rash. NEUROLOGICAL: Alert oriented, x3 no focal neurologic deficit. Right-sided Port-A-Cath removed General: Alert, Oriented X3 Heart: Regular rate Lungs: Clear Abdomen: Normal bowel sounds, Soft Extremities: No clubbing, No cyanosis Skin: No rashes Assessment and Plan Assessmemt and Plan Problems Medical Problems: (1) Fever Status: Acute (2) Infection due to Port-A-Cath Status: Acute Comment Review of Relevant I have reviewed the following items lalo (where applicable) has been applied. Labs Laboratory Tests Test 01/03/20 07:05 01/03/20 07:15 Sodium Level 140 mmol/L (136-145) Potassium Level 4.1 mmol/L (3.5-5.1) Chloride Level 103 mmol/L (98-107) Carbon Dioxide Level 29 mmol/L (21-32) Anion Gap 8 (6-14) Blood Urea Nitrogen 9 mg/dL (7-20) Creatinine 0.5 mg/dL (0.6-1.0) Estimated GFR (Cockcroft-Gault) 155.7 Glucose Level 85 mg/dL (70-99) Calcium Level 9.0 mg/dL (8.5-10.1) White Blood Count 5.4 x10^3/uL (4.0-11.0) Red Blood Count 3.19 x10^6/uL (3.50-5.40) Hemoglobin 10.2 g/dL (12.0-15.5) Hematocrit 29.3 % (36.0-47.0) Mean Corpuscular Volume 92 fL (79-100) Mean Corpuscular Hemoglobin 32 pg (25-35) Mean Corpuscular Hemoglobin Concent 35 g/dL (31-37) Red Cell Distribution Width 13.1 % (11.5-14.5) Platelet Count 176 x10^3/uL (140-400) Neutrophils (%) (Auto) 64 % (31-73) Lymphocytes (%) (Auto) 28 % (24-48) Monocytes (%) (Auto) 7 % (0-9) Eosinophils (%) (Auto) 1 % (0-3) Basophils (%) (Auto) 0 % (0-3) Neutrophils # (Auto) 3.4 x10^3/uL (1.8-7.7) Lymphocytes # (Auto) 1.5 x10^3/uL (1.0-4.8) Monocytes # (Auto) 0.4 x10^3/uL (0.0-1.1) Eosinophils # (Auto) 0.1 x10^3/uL (0.0-0.7) Basophils # (Auto) 0.0 x10^3/uL (0.0-0.2) Microbiology 01/02/20 Blood Culture - Preliminary, Resulted NO GROWTH AFTER 2 DAYS 12/31/19 Gram Stain - Final, Resulted 12/31/19 Aerobic and Anaerobic Culture - Preliminary, Resulted 12/31/19 Antimicrobic Susceptibility - Preliminary, Resulted Medications Current Medications Sodium Chloride 1,000 ml @ 1,000 mls/hr Q1H IV Last administered on 12/26/19at 14:52; Start 12/26/19 at 14:44; Stop 12/26/19 at 15:43; Status DC Acetaminophen (Tylenol) 1,000 mg 1X ONCE PO Last administered on 12/26/19at 14:52; Start 12/26/19 at 14:45; Stop 12/26/19 at 14:52; Status DC Fentanyl Citrate (Fentanyl 2ml Vial) 50 mcg 1X ONCE IVP Last administered on 12/26/19at 14:51; Start 12/26/19 at 14:45; Stop 12/26/19 at 14:52; Status DC Sodium Chloride 1,000 ml @ 1,000 mls/hr 1X ONCE IV Last administered on 12/26/19at 16:16; Start 12/26/19 at 15:30; Stop 12/26/19 at 16:29; Status DC Piperacillin Sod/ Tazobactam Sod 3.375 gm/Sodium Chloride 50 ml @ 100 mls/hr 1X ONCE IV Last administered on 12/26/19at 16:15; Start 12/26/19 at 16:15; Stop 12/27/19 at 10:20; Status DC Diphenhydramine HCl (Benadryl) 25 mg 1X ONCE IVP Last administered on 12/26/19at 16:16; Start 12/26/19 at 16:15; Stop 12/26/19 at 16:16; Status DC Vancomycin HCl (Vanco Per Pharmacy) 1 each PRN DAILY PRN MC SEE COMMENTS Last administered on 12/29/19at 12:34; Start 12/26/19 at 16:15; Stop 12/29/19 at 12:43; Status DC Vancomycin HCl 1.75 gm/Sodium Chloride 500 ml @ 250 mls/hr 1X ONCE IV Last administered on 12/26/19at 16:59; Start 12/26/19 at 17:00; Stop 12/26/19 at 18:59; Status DC Fentanyl Citrate (Fentanyl 2ml Vial) 50 mcg 1X ONCE IVP Last administered on 12/26/19at 16:59; Start 12/26/19 at 16:45; Stop 12/26/19 at 16:46; Status DC Vancomycin HCl 1 gm/Sodium Chloride 250 ml @ 250 mls/hr Q8H IV Last administered on 12/27/19at 18:09; Start 12/27/19 at 01:00; Stop 12/27/19 at 20:25; Status DC Vancomycin HCl (Vancomycin Trough Level) 1 each 1X ONCE MC Last administered on 12/27/19at 16:30; Start 12/27/19 at 16:30; Stop 12/27/19 at 16:31; Status DC Fentanyl Citrate (Fentanyl 2ml Vial) 50 mcg PRN Q2HR PRN IVP PAIN Last administered on 01/04/20at 11:00; Start 12/26/19 at 18:45 Ondansetron HCl (Zofran) 4 mg PRN Q6HRS PRN IVP NAUSEA/VOMITING 1ST CHOICE Last administered on 01/04/20at 04:11; Start 12/26/19 at 18:45 Prochlorperazine Edisylate (Compazine) 10 mg PRN Q8HRS PRN IM NAUSEA/VOMITING Last administered on 12/28/19at 12:28; Start 12/26/19 at 18:45; Stop 12/29/19 at 14:52; Status DC Acetaminophen (Tylenol) 650 mg PRN Q6HRS PRN PEG MILD PAIN / TEMP > 100.3'F Last administered on 12/27/19at 11:50; Start 12/26/19 at 18:45 Cefazolin Sodium/ Dextrose 50 ml @ 100 mls/hr Q8HRS IV ; Start 12/27/19 at 11:00; Status Cancel Cefazolin Sodium/ Dextrose 50 ml @ 100 mls/hr Q8HRS IV Last administered on 12/29/19at 05:55; Start 12/27/19 at 12:00; Stop 12/29/19 at 12:38; Status DC Amino Acids/ Glycerin/ Electrolytes 1,000 ml @ 75 mls/hr [id number] IV Last administered on 01/04/20at 02:05; Start 12/27/19 at 11:30 Vancomycin HCl 1.25 gm/Sodium Chloride 250 ml @ 250 mls/hr Q8H IV Last administered on 12/29/19at 02:00; Start 12/28/19 at 02:00; Stop 12/29/19 at 10:05; Status DC Vancomycin HCl (Vancomycin Trough Level) 1 each 1X ONCE MC Last administered on 12/29/19at 09:30; Start 12/29/19 at 09:30; Stop 12/29/19 at 09:31; Status DC Iohexol (Omnipaque 240 Mg/ml) 50 ml STK-MED ONCE .ROUTE ; Start 12/28/19 at 11:26; Stop 12/28/19 at 11:26; Status DC Midazolam HCl (Versed) 2 mg STK-MED ONCE .ROUTE ; Start 12/28/19 at 12:21; Stop 12/28/19 at 12:22; Status DC Fentanyl Citrate (Fentanyl 2ml Vial) 100 mcg STK-MED ONCE .ROUTE ; Start 12/28/19 at 12:21; Stop 12/28/19 at 12:22; Status DC Potassium Chloride/Water 100 ml @ 100 mls/hr Q1H IV Last administered on 12/28/19at 18:41; Start 12/28/19 at 13:00; Stop 12/28/19 at 14:59; Status DC Lidocaine HCl (Buffered Lidocaine 1%) 3 ml 1X ONCE IJ Last administered on 12/28/19at 12:50; Start 12/28/19 at 13:00; Stop 12/28/19 at 13:01; Status DC Midazolam HCl (Versed) 2 mg 1X ONCE IV Last administered on 12/28/19at 12:45; Start 12/28/19 at 13:00; Stop 12/28/19 at 13:01; Status DC Iohexol (Omnipaque 240 Mg/ml) 50 ml 1X ONCE IJ Last administered on 12/28/19at 12:52; Start 12/28/19 at 13:00; Stop 12/28/19 at 13:01; Status DC Lidocaine HCl (Buffered Lidocaine 1%) 3 ml STK-MED ONCE .ROUTE ; Start 12/28/19 at 12:54; Stop 12/28/19 at 12:55; Status DC Fentanyl Citrate (Fentanyl 2ml Vial) 100 mcg 1X ONCE IV Last administered on 12/28/19at 12:50; Start 12/28/19 at 13:15; Stop 12/28/19 at 13:16; Status DC Vancomycin HCl 1.25 gm/Sodium Chloride 250 ml @ 250 mls/hr Q6H IV ; Start 12/29/19 at 10:00; Status Cancel Vancomycin HCl 1.25 gm/Sodium Chloride 250 ml @ 250 mls/hr Q6H IV ; Start 12/29/19 at 10:08; Status Cancel Vancomycin HCl 1.25 gm/Sodium Chloride 250 ml @ 250 mls/hr Q6H IV Last administered on 12/29/19at 10:48; Start 12/29/19 at 10:00; Stop 12/29/19 at 12:41; Status DC Vancomycin HCl 1.75 gm/Sodium Chloride 500 ml @ 250 mls/hr Q8H IV ; Start 12/29/19 at 19:00; Stop 12/29/19 at 12:40; Status DC Vancomycin HCl (Vancomycin Trough Level) 1 each 1X ONCE MC ; Start 12/30/19 at 18:30; Stop 12/30/19 at 18:31; Status Cancel Daptomycin 440 mg/ Sodium Chloride 50 ml @ 100 mls/hr Q24H IV Last administered on 01/03/20at 12:21; Start 12/29/19 at 13:00 Prochlorperazine Edisylate (Compazine) 10 mg PRN Q8HRS PRN IVP NAUSEA/VOMITING 2ND CHOICE Last administered on 01/03/20at 18:07; Start 12/29/19 at 15:00 Lidocaine/ Epinephrine (LIDOCAINE 1%-EPI 1:100,000 Multi-Dose) 20 ml STK-MED ONCE .ROUTE ; Start 12/31/19 at 13:28; Stop 12/31/19 at 13:28; Status DC Midazolam HCl (Versed) 2 mg STK-MED ONCE .ROUTE ; Start 12/31/19 at 14:03; Stop 12/31/19 at 14:04; Status DC Fentanyl Citrate (Fentanyl 2ml Vial) 100 mcg STK-MED ONCE .ROUTE ; Start 12/31/19 at 14:04; Stop 12/31/19 at 14:04; Status DC Midazolam HCl (Versed) 2 mg 1X ONCE IV Last administered on 12/31/19at 14:15; Start 12/31/19 at 14:15; Stop 12/31/19 at 14:19; Status DC Fentanyl Citrate (Fentanyl 2ml Vial) 100 mcg 1X ONCE IV Last administered on 12/31/19at 14:15; Start 12/31/19 at 14:15; Stop 12/31/19 at 14:19; Status DC Lidocaine/ Epinephrine (LIDOCAINE 1%-EPI 1:100,000 Multi-Dose) 20 ml 1X ONCE INJ Last administered on 12/31/19at 14:15; Start 12/31/19 at 14:15; Stop 12/31/19 at 14:19; Status DC Fentanyl Citrate (Fentanyl 2ml Vial) 50 mcg 1X ONCE IVP Last administered on 12/31/19at 17:45; Start 12/31/19 at 17:45; Stop 12/31/19 at 17:46; Status DC Lidocaine HCl (Viscous Lidocaine) 15 ml STK-MED ONCE .ROUTE ; Start 01/01/20 at 11:43; Stop 01/01/20 at 11:43; Status DC Lidocaine HCl (Xylocaine 2% Topical 30gm Tube) 30 joy STK-MED ONCE TP ; Start 01/01/20 at 11:43; Stop 01/01/20 at 11:43; Status DC Benzocaine (Hurricaine One) 1 spray STK-MED ONCE .ROUTE ; Start 01/01/20 at 11:43; Stop 01/01/20 at 11:43; Status DC Propofol (Diprivan) 200 mg STK-MED ONCE IV ; Start 01/01/20 at 13:43; Stop 01/01/20 at 13:44; Status DC Ringer's Solution 1,000 ml @ 50 mls/hr Q20H IV ; Start 01/01/20 at 14:14; Stop 01/02/20 at 02:13; Status DC Phytonadione (Vitamin K Ampule) 10 mg 1X ONCE SQ Last administered on 01/02/20at 16:22; Start 01/02/20 at 15:30; Stop 01/02/20 at 15:31; Status DC Active Scripts Active [Tpn Per Pharmacy] 1 EACH Each 1 Each MC PRN DAILY PRN 30 Days Tpn Electrolytes Vial (Sodium/K+/Mag/Ca/Chlor/Acetate) 20 Ml Vial 20 Ml IV DAILY06 30 Days Metoclopramide Hcl 5 Mg/1 Ml Vial 10 Mg IVP PRN Q6HRS PRN 14 Days [Pantoprazole Iv Push] 40 MG Vial 40 Mg IVP BIDAC 30 Days Ondansetron Hcl 4 Mg/2 Ml Vial (Ondansetron Hcl/Pf) 4 Mg/2 Ml Vial 4 Mg IVP PRN Q6HRS PRN 30 Days Prochlorperazine Edisylate 10 Mg/2 Ml Vial 10 Mg IV PRN Q6HRS PRN 14 Days Milk Of Magnesia (Magnesium Hydroxide) 400 Mg/5 Ml Oral.susp 2,400 Mg JT DAILY 30 Days Enemeez (Docusate Sodium) 283 Mg/5 Ml Enema 283 Mg PA PRN DAILY PRN 30 Days Bisacodyl 10 Mg Supp.rect 10 Mg PA PRN DAILY PRN 30 Days Nystatin 100,000 Unit/1 Ml Oral.susp 5 Ml SWSW [id number] 10 Days Hydrocodone-Apap 7.5-325/15 Soln (Hydrocodone Bit/Acetaminophen) 15 Ml Solut ion 15 Ml JT PRN Q6HRS PRN Reported Metoprolol Tartrate 50 Mg Tablet 1 Tab PO BID Advair Hfa 230-21 Mcg Inhaler (Fluticasone/Salmeterol) 12 Gm Hfa.aer.ad 1 Inh IH BID Dicyclomine Hcl 20 Mg Tablet 20 Mg GT PRN QID PRN Olopatadine HCl 5 Ml Drops 0.1 % OP PRN DAILY PRN Promethazine Hcl 12.5 Mg Tablet 25 Mg GT Q6H PRN Trazodone Hcl 50 Mg Tablet 50 Mg GT HS Coq-10 (Ubidecarenone) 100 Mg Capsule 200 Mg GT DAILY Vitamin D3 (Cholecalciferol (Vitamin D3)) 4,000 Unit Capsule 2,000 Unit PO HS Xyzal (Levocetirizine Dihydrochloride) 5 Mg Tablet 5 Mg GT HS Proair Hfa (Albuterol Sulfate) 8.5 Gm Hfa.aer.ad 2 Puff IH PRN Q4-6HRS PRN 21 Days Ipratropium [place] 30 Ml [place] 1 [place] NS DAILY Duoneb 0.5-3(2.5) Mg/3 Ml (Albuterol/Ipratropium) 3 Ml Ampul.neb 3 Ml NEB PRN QID PRN Montelukast Sodium Tablet (Montelukast Sodium) 10 Mg Tablet 10 Mg GT DAILY PRN Multi Vitamin Daily (Multivitamin) 1 Each Tablet 1 Each GT DAILY Vitals/I & O Vital Sign - Last 24 Hours 01/03/20 01/03/20 01/03/20 01/03/20 13:01 13:25 15:00 15:38 Temp 98.7 98.7 Pulse 68 Resp 18 B/P (MAP) 106/67 (80) Pulse Ox 97 97 98 97 O2 Delivery Room Air Room Air Room Air Room Air 01/03/20 01/03/20 01/03/20 01/03/20 16:16 18:08 18:34 19:00 Temp 97.9 97.9 Pulse 65 Resp 18 B/P (MAP) 103/61 (75) Pulse Ox 97 97 97 98 O2 Delivery Room Air Room Air Room Air Room Air 01/03/20 01/03/20 01/03/20 01/03/20 20:00 20:39 23:00 23:12 Temp 97.9 97.9 Pulse 68 Resp 18 18 B/P (MAP) 96/58 (71) Pulse Ox 98 98 O2 Delivery Room Air Room Air Room Air Room Air O2 Flow Rate 2.0 2.0 01/03/20 01/04/20 01/04/20 01/04/20 23:17 00:01 02:05 02:35 Resp 18 Pulse Ox 98 98 98 O2 Delivery Room Air Room Air Room Air O2 Flow Rate 2.0 2.0 01/04/20 01/04/20 01/04/20 01/04/20 03:00 04:12 04:45 07:00 Temp 98.0 98.0 98.0 98.0 Pulse 62 68 Resp 18 20 18 B/P (MAP) 94/57 (69) 96/56 (69) Pulse Ox 98 98 98 99 O2 Delivery Room Air Room Air Room Air Room Air 01/04/20 01/04/20 01/04/20 01/04/20 07:00 08:20 11:00 11:01 Temp 98.0 98.0 Pulse 70 Resp 18 B/P (MAP) 98/60 (73) Pulse Ox 99 O2 Delivery Room Air Room Air Room Air Room Air Intake and Output 01/03/20 01/03/20 01/04/20 15:00 23:00 07:00 Intake Total 0 ml Balance 0 ml Justicifation of Admission Dx: Justifications for Admission: Justification of Admission Dx: Yes Sepsis: Bacteremia KRISTEN ESPAÑA MD Jan 04, 2020 11:55
[2020-01-04] MEDS: MORPHINE SULFATE 4 MG/ML VIAL. IV PRN ×4 (12:35→23:58)
[2020-01-04 15:00] VITALS: BP 100/65
[2020-01-04] MEDS: DAPTOmycin (GENERIC) IVPB 440 MG in IV NORMAL SALINE 50ML 50 ML IV SCH (16:17)
[2020-01-04 19:00] VITALS: BP 91/57
[2020-01-04 23:00] VITALS: BP 94/52
[2020-01-05 03:00] VITALS: BP 93/48
[2020-01-05] MEDS: MORPHINE SULFATE 4 MG/ML VIAL. IV PRN ×3 (03:00→09:43)
[2020-01-05] MEDS: ONDANSETRON PF 4 MG/2 ML VIAL. IVP PRN (05:25)
[2020-01-05] MEDS: AMINO AC 3%/ELECTROLYTE/GLYCER 1,000 ML IV SCH ×2 (06:25→22:10)
[2020-01-05 07:00] VITALS: BP 111/71
[2020-01-05] MEDS: diphenhydrAMINE 50 MG/ML VIAL IVP PRN (09:43)
[2020-01-05] MEDS: PROCHLORPERAZINE 10 MG/2 ML VIAL. IVP PRN (09:43)
[2020-01-05] MEDS ORDERED: PROCHLORPERAZINE 10 MG/2 ML VIAL. IM ONE ×3 (10:15→20:00)
[2020-01-05] MEDS ORDERED: MORPHINE SULFATE 4 MG/ML VIAL. IM ONE ×4 (10:15→20:00)
[2020-01-05] MEDS ORDERED: MORPHINE SULFATE 4 MG/ML VIAL. IV ONE (10:15)
[2020-01-05 11:00] VITALS: BP 95/54
--- NOTE | 2020-01-05 13:15 | PDOC ---
Infectious Disease Note Subjective Subjective c/o some pain Chronic nausea, no vomiting or diarrhea No fevers/chills ROS ROS as mentioned above Vital Sign Vital Signs Vital Signs Date Time Temp Pulse Resp B/P (MAP) Pulse Ox O2 Delivery O2 Flow Rate FiO2 01/05/20 12:01 Room Air 01/05/20 11:00 97.9 62 18 95/54 (68) 100 97.9 01/04/20 20:00 2.0 Physical Exam PHYSICAL EXAM GENERAL: Propped up in bed, alert awake HEENT: PAYTON. Oral cavity pink, dry. Some bacterial overgrowth on the tongue NECK: Supple LUNGS: Clear. HEART: S1, S2 regular. ABDOMEN: Bowel sounds present, soft and nontender. J-tube clean EXTREMITIES: No edema or cyanosis. SKIN: without rash. NEUROLOGICAL: Alert oriented, x3 no focal neurologic deficit. Right-sided Port-A-Cath removed, dressing dry PIV Labs Micro 12/25. BLOOD CULTURE LC Preliminary Preliminary GROWTH OF GRAM POSITIVE COCCI on 12/28/19 at 0933 FINAL ID= [[email or web address] [email or web address]] STAPHYLOCOCCUS AUREUS ANTIMICROBIAL SUSCEPTIBILITY Final Comment POS KEREN TYPE 38 STAPHYLOCOCCUS AUREUS (MRSA) ANTIBIOTIC RESULT INTERPRETATION AZITHROMYCIN >4 R CLINDAMYCIN >4 R CEFOXITIN SCREEN >4 POS CIPROFLOXACIN <=1 S CEFTAROLINE <=0.5 S DAPTOMYCIN 1 S ERYTHROMYCIN >4 R GENTAMICIN <=4 S LINEZOLID 2 S LEVOFLOXACIN <=1 S OXACILLIN >2 R PENICILLIN >2 R* RIFAMPIN <=1 S TRIMETHOPRIM/SULFAMETHOXAZOLE <=0.5/9.5 S TETRACYCLINE <=4 S VANCOMYCIN 1 S Objective Assessment Fever - better Pancytopenia better 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 Recently placed on 11/25. -Status post Port-A-Cath removal 12/31/2019. Cath tip positive for MSSA and MRSA Gastroparesis, on total parenteral nutrition at home. s/p G-tube exchange and j-tube injection, 12/27 Plan Plan of Care Continue daptomycin CK 27 from 12/31 Monitor for abx toxicity F/u BC from 01/01 negative so far Maintain aspiration precautions Attending Co-Sign Attending Co-Sign Attending Co-Sign The patient was seen and examined at the bedside. The chart was reviewed. The case was discussed. Agree with the plan of care. ISAIAS ELI APRN Jan 05, 2020 13:15 GAYLE RODRIGUEZ MD Jan 05, 2020 13:21
--- NOTE | 2020-01-05 14:58 | PDOC ---
PROGRESS NOTES Date of Service: DATE: 01/05/20 TIME: 14:57 Chief Complaint Chief Complaint Sepsis 3/4 blood culture bottles positive for gram + cocci in clusters Bicytopenia Hypotension Severe idiopathic gastroparesis Blood culture positive with Staphylococcus, 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 39 MIN PT EXAM, CHART REVIEW, > 50% OF TIME SPENT WITH EXAM, CHART REVIEW, PT CARE COORDINATION History of Present Illness History of Present Illness 01/04, IV lost, will try midline, discussed with ID cont Dapto plan PORT placement cont other 01/03, plan place port o cath tuesday pain up, at priro cath side 01/02, cx from yesterdya pending, if cx neg, may replace port cont current othersie 01/01, reviewd 12/31. LAVELL Laying in bed in minimal distress Complains of chills, much better, though, Chart reviewed Discussed with RN Vitals Vitals Vital Signs Date Time Temp Pulse Resp B/P (MAP) Pulse Ox O2 Delivery O2 Flow Rate FiO2 01/05/20 14:27 Room Air 01/05/20 11:00 97.9 62 18 95/54 (68) 100 97.9 01/04/20 20:00 2.0 Physical Exam Physical Exam GENERAL: Propped up in bed, alert awake HEENT: PAYTON. Oral cavity pink, dry. Some bacterial overgrowth on the tongue NECK: Supple LUNGS: Clear. HEART: S1, S2 regular. ABDOMEN: Bowel sounds present, soft and nontender. J-tube clean EXTREMITIES: No edema or cyanosis. SKIN: without rash. NEUROLOGICAL: Alert oriented, x3 no focal neurologic deficit. Right-sided Port-A-Cath removed, dressing dry PIV General: Alert, Oriented X3 Heart: Regular rate Lungs: Clear Abdomen: Normal bowel sounds, Soft Extremities: No clubbing, No cyanosis Skin: No rashes Assessment and Plan Assessmemt and Plan Problems Medical Problems: (1) Fever Status: Acute (2) Infection due to Port-A-Cath Status: Acute Comment Review of Relevant I have reviewed the following items lalo (where applicable) has been applied. Labs Microbiology 01/02/20 Blood Culture - Preliminary, Resulted NO GROWTH AFTER 3 DAYS 12/31/19 Gram Stain - Final, Complete 12/31/19 Aerobic and Anaerobic Culture - Final, Complete 12/31/19 Antimicrobic Susceptibility - Final, Complete Medications Current Medications Sodium Chloride 1,000 ml @ 1,000 mls/hr Q1H IV Last administered on 12/26/19at 14:52; Start 12/26/19 at 14:44; Stop 12/26/19 at 15:43; Status DC Acetaminophen (Tylenol) 1,000 mg 1X ONCE PO Last administered on 12/26/19at 14:52; Start 12/26/19 at 14:45; Stop 12/26/19 at 14:52; Status DC Fentanyl Citrate (Fentanyl 2ml Vial) 50 mcg 1X ONCE IVP Last administered on 12/26/19at 14:51; Start 12/26/19 at 14:45; Stop 12/26/19 at 14:52; Status DC Sodium Chloride 1,000 ml @ 1,000 mls/hr 1X ONCE IV Last administered on 12/26/19at 16:16; Start 12/26/19 at 15:30; Stop 12/26/19 at 16:29; Status DC Piperacillin Sod/ Tazobactam Sod 3.375 gm/Sodium Chloride 50 ml @ 100 mls/hr 1X ONCE IV Last administered on 12/26/19at 16:15; Start 12/26/19 at 16:15; Stop 12/27/19 at 10:20; Status DC Diphenhydramine HCl (Benadryl) 25 mg 1X ONCE IVP Last administered on 12/26/19at 16:16; Start 12/26/19 at 16:15; Stop 12/26/19 at 16:16; Status DC Vancomycin HCl (Vanco Per Pharmacy) 1 each PRN DAILY PRN MC SEE COMMENTS Last administered on 12/29/19at 12:34; Start 12/26/19 at 16:15; Stop 12/29/19 at 12:43; Status DC Vancomycin HCl 1.75 gm/Sodium Chloride 500 ml @ 250 mls/hr 1X ONCE IV Last administered on 12/26/19at 16:59; Start 12/26/19 at 17:00; Stop 12/26/19 at 18:59; Status DC Fentanyl Citrate (Fentanyl 2ml Vial) 50 mcg 1X ONCE IVP Last administered on 12/26/19at 16:59; Start 12/26/19 at 16:45; Stop 12/26/19 at 16:46; Status DC Vancomycin HCl 1 gm/Sodium Chloride 250 ml @ 250 mls/hr Q8H IV Last administered on 12/27/19 18:09; Start 12/27/19 at 01:00; Stop 12/27/19 at 20:25; Status DC Vancomycin HCl (Vancomycin Trough Level) 1 each 1X ONCE MC Last administered on 12/27/19at 16:30; Start 12/27/19 at 16:30; Stop 12/27/19 at 16:31; Status DC Fentanyl Citrate (Fentanyl 2ml Vial) 50 mcg PRN Q2HR PRN IVP PAIN Last administered on 01/04/20at 11:00; Start 12/26/19 at 18:45 Ondansetron HCl (Zofran) 4 mg PRN Q6HRS PRN IVP NAUSEA/VOMITING 1ST CHOICE Last administered on 01/05/20 05:25; Start 12/26/19 at 18:45 Prochlorperazine Edisylate (Compazine) 10 mg PRN Q8HRS PRN IM NAUSEA/VOMITING Last administered on 12/28/19at 12:28; Start 12/26/19 at 18:45; Stop 12/29/19 at 14:52; Status DC Acetaminophen (Tylenol) 650 mg PRN Q6HRS PRN PEG MILD PAIN / TEMP > 100.3'F Last administered on 12/27/19at 11:50; Start 12/26/19 at 18:45 Cefazolin Sodium/ Dextrose 50 ml @ 100 mls/hr Q8HRS IV ; Start 12/27/19 at 11:00; Status Cancel Cefazolin Sodium/ Dextrose 50 ml @ 100 mls/hr Q8HRS IV Last administered on 12/29/19at 05:55; Start 12/27/19 at 12:00; Stop 12/29/19 at 12:38; Status DC Amino Acids/ Glycerin/ Electrolytes 1,000 ml @ 75 mls/hr [id number] IV Last administered on 01/05/20at 06:25; Start 12/27/19 at 11:30 Vancomycin HCl 1.25 gm/Sodium Chloride 250 ml @ 250 mls/hr Q8H IV Last administered on 12/29/19at 02:00; Start 12/28/19 at 02:00; Stop 12/29/19 at 10:05; Status DC Vancomycin HCl (Vancomycin Trough Level) 1 each 1X ONCE MC Last administered on 12/29/19at 09:30; Start 12/29/19 at 09:30; Stop 12/29/19 at 09:31; Status DC Iohexol (Omnipaque 240 Mg/ml) 50 ml STK-MED ONCE .ROUTE ; Start 12/28/19 at 11:26; Stop 12/28/19 at 11:26; Status DC Midazolam HCl (Versed) 2 mg STK-MED ONCE .ROUTE ; Start 12/28/19 at 12:21; Stop 12/28/19 at 12:22; Status DC Fentanyl Citrate (Fentanyl 2ml Vial) 100 mcg STK-MED ONCE .ROUTE ; Start 12/28/19 at 12:21; Stop 12/28/19 at 12:22; Status DC Potassium Chloride/Water 100 ml @ 100 mls/hr Q1H IV Last administered on 12/28/19at 18:41; Start 12/28/19 at 13:00; Stop 12/28/19 at 14:59; Status DC Lidocaine HCl (Buffered Lidocaine 1%) 3 ml 1X ONCE IJ Last administered on 12/28/19at 12:50; Start 12/28/19 at 13:00; Stop 12/28/19 at 13:01; Status DC Midazolam HCl (Versed) 2 mg 1X ONCE IV Last administered on 12/28/19at 12:45; Start 12/28/19 at 13:00; Stop 12/28/19 at 13:01; Status DC Iohexol (Omnipaque 240 Mg/ml) 50 ml 1X ONCE IJ Last administered on 12/28/19at 12:52; Start 12/28/19 at 13:00; Stop 12/28/19 at 13:01; Status DC Lidocaine HCl (Buffered Lidocaine 1%) 3 ml STK-MED ONCE .ROUTE ; Start 12/28/19 at 12:54; Stop 12/28/19 at 12:55; Status DC Fentanyl Citrate (Fentanyl 2ml Vial) 100 mcg 1X ONCE IV Last administered on 12/28/19at 12:50; Start 12/28/19 at 13:15; Stop 12/28/19 at 13:16; Status DC Vancomycin HCl 1.25 gm/Sodium Chloride 250 ml @ 250 mls/hr Q6H IV ; Start 12/29/19 at 10:00; Status Cancel Vancomycin HCl 1.25 gm/Sodium Chloride 250 ml @ 250 mls/hr Q6H IV ; Start 12/29/19 at 10:08; Status Cancel Vancomycin HCl 1.25 gm/Sodium Chloride 250 ml @ 250 mls/hr Q6H IV Last administered on 12/29/19at 10:48; Start 12/29/19 at 10:00; Stop 12/29/19 at 12:41; Status DC Vancomycin HCl 1.75 gm/Sodium Chloride 500 ml @ 250 mls/hr Q8H IV ; Start 12/29/19 at 19:00; Stop 12/29/19 at 12:40; Status DC Vancomycin HCl (Vancomycin Trough Level) 1 each 1X ONCE MC ; Start 12/30/19 at 18:30; Stop 12/30/19 at 18:31; Status Cancel Daptomycin 440 mg/ Sodium Chloride 50 ml @ 100 mls/hr Q24H IV Last administered on 01/04/20at 16:17; Start 12/29/19 at 13:00 Prochlorperazine Edisylate (Compazine) 10 mg PRN Q8HRS PRN IVP NAUSEA/VOMITING 2ND CHOICE Last administered on 01/03/20at 18:07; Start 12/29/19 at 15:00 Lidocaine/ Epinephrine (LIDOCAINE 1%-EPI 1:100,000 Multi-Dose) 20 ml STK-MED ONCE .ROUTE ; Start 12/31/19 at 13:28; Stop 12/31/19 at 13:28; Status DC Midazolam HCl (Versed) 2 mg STK-MED ONCE .ROUTE ; Start 12/31/19 at 14:03; Stop 12/31/19 at 14:04; Status DC Fentanyl Citrate (Fentanyl 2ml Vial) 100 mcg STK-MED ONCE .ROUTE ; Start 12/31/19 at 14:04; Stop 12/31/19 at 14:04; Status DC Midazolam HCl (Versed) 2 mg 1X ONCE IV Last administered on 12/31/19at 14:15; Start 12/31/19 at 14:15; Stop 12/31/19 at 14:19; Status DC Fentanyl Citrate (Fentanyl 2ml Vial) 100 mcg 1X ONCE IV Last administered on 12/31/19at 14:15; Start 12/31/19 at 14:15; Stop 12/31/19 at 14:19; Status DC Lidocaine/ Epinephrine (LIDOCAINE 1%-EPI 1:100,000 Multi-Dose) 20 ml 1X ONCE INJ Last administered on 12/31/19at 14:15; Start 12/31/19 at 14:15; Stop 12/31/19 at 14:19; Status DC Fentanyl Citrate (Fentanyl 2ml Vial) 50 mcg 1X ONCE IVP Last administered on 12/31/19at 17:45; Start 12/31/19 at 17:45; Stop 12/31/19 at 17:46; Status DC Lidocaine HCl (Viscous Lidocaine) 15 ml STK-MED ONCE .ROUTE ; Start 01/01/20 at 11:43; Stop 01/01/20 at 11:43; Status DC Lidocaine HCl (Xylocaine 2% Topical 30gm Tube) 30 joy STK-MED ONCE TP ; Start 01/01/20 at 11:43; Stop 01/01/20 at 11:43; Status DC Benzocaine (Hurricaine One) 1 spray STK-MED ONCE .ROUTE ; Start 01/01/20 at 11:43; Stop 01/01/20 at 11:43; Status DC Propofol (Diprivan) 200 mg STK-MED ONCE IV ; Start 01/01/20 at 13:43; Stop 01/01/20 at 13:44; Status DC Ringer's Solution 1,000 ml @ 50 mls/hr Q20H IV ; Start 01/01/20 at 14:14; Stop 01/02/20 at 02:13; Status DC Phytonadione (Vitamin K Ampule) 10 mg 1X ONCE SQ Last administered on 01/02/20at 16:22; Start 01/02/20 at 15:30; Stop 01/02/20 at 15:31; Status DC Morphine Sulfate (Morphine Sulfate) 4 mg PRN Q2HR PRN IV PAIN Last administered on 01/05/20at 05:25; Start 01/04/20 at 12:00 Diphenhydramine HCl (Benadryl) 25 mg PRN Q6HRS PRN IVP ITCHING Last administered on 01/05/20at 09:43; Start 01/05/20 at 09:45 Prochlorperazine Edisylate (Compazine) 10 mg 1X ONCE IM Last administered on 01/05/20at 10:11; Start 01/05/20 at 10:15; Stop 01/05/20 at 10:16; Status DC Morphine Sulfate (Morphine Sulfate) 4 mg 1X ONCE IV ; Start 01/05/20 at 10:15; Stop 01/05/20 at 10:14; Status DC Morphine Sulfate (Morphine Sulfate) 4 mg 1X ONCE IM Last administered on 01/05/20at 10:16; Start 01/05/20 at 10:15; Stop 01/05/20 at 10:16; Status DC Morphine Sulfate (Morphine Sulfate) 4 mg 1X ONCE IM Last administered on 01/05/20at 14:27; Start 01/05/20 at 14:15; Stop 01/05/20 at 14:16; Status DC Active Scripts Active [Tpn Per Pharmacy] 1 EACH Each 1 Each MC PRN DAILY PRN 30 Days Tpn Electrolytes Vial (Sodium/K+/Mag/Ca/Chlor/Acetate) 20 Ml Vial 20 Ml IV DAILY06 30 Days Metoclopramide Hcl 5 Mg/1 Ml Vial 10 Mg IVP PRN Q6HRS PRN 14 Days [Pantoprazole Iv Push] 40 MG Vial 40 Mg IVP BIDAC 30 Days Ondansetron Hcl 4 Mg/2 Ml Vial (Ondansetron Hcl/Pf) 4 Mg/2 Ml Vial 4 Mg IVP PRN Q6HRS PRN 30 Days Prochlorperazine Edisylate 10 Mg/2 Ml Vial 10 Mg IV PRN Q6HRS PRN 14 Days Milk Of Magnesia (Magnesium Hydroxide) 400 Mg/5 Ml Oral.susp 2,400 Mg JT DAILY 30 Days Enemeez (Docusate Sodium) 283 Mg/5 Ml Enema 283 Mg HI PRN DAILY PRN 30 Days Bisacodyl 10 Mg Supp.rect 10 Mg HI PRN DAILY PRN 30 Days Nystatin 100,000 Unit/1 Ml Oral.susp 5 Ml SWSW [id number] 10 Days Hydrocodone-Apap 7.5-325/15 Soln (Hydrocodone Bit/Acetaminophen) 15 Ml Solution 15 Ml JT PRN Q6HRS PRN Reported Metoprolol Tartrate 50 Mg Tablet 1 Tab PO BID Advair Hfa 230-21 Mcg Inhaler (Fluticasone/Salmeterol) 12 Gm Hfa.aer.ad 1 Inh IH BID Dicyclomine Hcl 20 Mg Tablet 20 Mg GT PRN QID PRN Olopatadine HCl 5 Ml Drops 0.1 % OP PRN DAILY PRN Promethazine Hcl 12.5 Mg Tablet 25 Mg GT Q6H PRN Trazodone Hcl 50 Mg Tablet 50 Mg GT HS Coq-10 (Ubidecarenone) 100 Mg Capsule 200 Mg GT DAILY Vitamin D3 (Cholecalciferol (Vitamin D3)) 4,000 Unit Capsule 2,000 Unit PO HS Xyzal (Levocetirizine Dihydrochloride) 5 Mg Tablet 5 Mg GT HS Proair Hfa (Albuterol Sulfate) 8.5 Gm Hfa.aer.ad 2 Puff IH PRN Q4-6HRS PRN 21 Days Ipratropium Tracy 30 Ml [place] 1 [place] NS DAILY Duoneb 0.5-3(2.5) Mg/3 Ml (Albuterol/Ipratropium) 3 Ml Ampul.neb 3 Ml NEB PRN QID PRN Montelukast Sodium Tablet (Montelukast Sodium) 10 Mg Tablet 10 Mg GT DAILY PRN Multi Vitamin Daily (Multivitamin) 1 Each Tablet 1 Each GT DAILY Vitals/I & O Vital Sign - Last 24 Hours 01/04/20 01/04/20 01/04/20 01/04/20 15:00 16:16 16:45 19:00 Temp 98.3 98.2 98.3 98.2 Pulse 62 67 Resp 18 18 B/P (MAP) 100/65 (77) 91/57 (68) Pulse Ox 99 95 O2 Delivery Room Air Room Air Room Air Room Air 01/04/20 01/04/20 01/04/20 01/04/20 20:00 20:29 21:00 23:00 Temp 97.8 97.8 Pulse 74 Resp 18 18 18 B/P (MAP) 94/52 (66) Pulse Ox 95 97 O2 Delivery Room Air Room Air Room Air O2 Flow Rate 2.0 01/05/20 01/05/20 01/05/20 01/05/20 03:00 03:30 05:25 06:00 Temp 97.6 97.6 Pulse 70 Resp 18 18 18 18 B/P (MAP) 93/48 (63) Pulse Ox 97 O2 Delivery Room Air Room Air Room Air 8/1501/05/20 01/05/20 01/05/20 07:00 08:00 10:16 10:46 Temp 97.4 97.4 Pulse 83 Resp 18 B/P (MAP) 111/71 (84) Pulse Ox 95 O2 Delivery Room Air Room Air Room Air Room Air 01/05/20 01/05/20 01/05/20 11:00 12:01 14:27 Temp 97.9 97.9 Pulse 62 Resp 18 B/P (MAP) 95/54 (68) Pulse Ox 100 O2 Delivery Room Air Room Air Room Air Justicifation of Admission Dx: Justifications for Admission: Justification of Admission Dx: Yes Sepsis: Bacteremia KRISTEN ESPAÑA MD Jan 05, 2020 14:58
[2020-01-05 15:00] VITALS: BP 100/63
[2020-01-05 19:00] VITALS: BP 104/55
[2020-01-05 23:00] VITALS: BP 93/51
[2020-01-06] MEDS: MORPHINE SULFATE 4 MG/ML VIAL. IV PRN ×7 (01:04→21:42)
[2020-01-06 02:36] VITALS: BP 92/50
[2020-01-06 07:00] VITALS: BP 90/52
[2020-01-06] MEDS: ONDANSETRON PF 4 MG/2 ML VIAL. IVP PRN ×2 (08:22→19:41)
[2020-01-06] MEDS: DAPTOmycin (GENERIC) IVPB 440 MG in IV NORMAL SALINE 50ML 50 ML IV SCH (08:23)
--- NOTE | 2020-01-06 10:43 | PDOC ---
Infectious Disease Note Subjective Subjective s/p midline cath placement Wants to go home and then return for port placement Chronic nausea, no vomiting or diarrhea No fevers/chills ROS ROS as mentioned above Vital Sign Vital Signs Vital Signs Date Time Temp Pulse Resp B/P (MAP) Pulse Ox O2 Delivery O2 Flow Rate FiO2 01/06/20 07:40 Room Air 01/06/20 07:00 98.0 81 18 90/52 (65) 97 98.0 01/06/20 02:36 2.0 Physical Exam PHYSICAL EXAM GENERAL: Propped up in bed, alert, in NAD HEENT: PAYTON. Oral cavity pink, dry. Some bacterial overgrowth on the tongue NECK: Supple LUNGS: Clear. HEART: S1, S2 regular. ABDOMEN: Bowel sounds present, soft and nontender. J-tube clean EXTREMITIES: No edema or cyanosis. SKIN: without rash. NEUROLOGICAL: Alert oriented, x3 no focal neurologic deficit. Right-sided Port-A-Cath removed, dressing dry RUE-midline clean Labs Micro 12/30. ANAER/AEROB/GS COMMENTS: CATH TIP STAPHYLOCOCCUS AUREUS (MRSA) STAPHYLOCOCCUS AUREUS ANTIMICROBIAL SUSCEPTIBILITY Final POS KEREN TYPE 38 STAPHYLOCOCCUS AUREUS (MRSA) ANTIBIOTIC RESULT INTERPRETATION AZITHROMYCIN <=2 S CLINDAMYCIN <=0.25 S CEFOXITIN SCREEN >4 POS CIPROFLOXACIN <=1 S CEFTAROLINE <=0.5 S DAPTOMYCIN <=0.5 S ERYTHROMYCIN <=0.25 S GENTAMICIN <=4 S LINEZOLID 2 S LEVOFLOXACIN <=1 S OXACILLIN >2 R PENICILLIN >2 R* RIFAMPIN <=1 S TRIMETHOPRIM/SULFAMETHOXAZOLE <=0.5/9.5 S TETRACYCLINE <=4 S VANCOMYCIN 1 S POS KEREN TYPE 38 STAPHYLOCOCCUS AUREUS ANTIBIOTIC RESULT INTERPRETATION AZITHROMYCIN >4 R CLINDAMYCIN >4 R CEFOXITIN SCREEN <=4 NEG CIPROFLOXACIN <=1 S CEFTAROLINE <=0.5 S DAPTOMYCIN <=0.5 S ERYTHROMYCIN >4 R GENTAMICIN <=4 S LINEZOLID 2 S LEVOFLOXACIN <=1 S OXACILLIN <=0.25 S PENICILLIN >2 Emilia RIFAMPIN <=1 S TRIMETHOPRIM/SULFAMETHOXAZOLE <=0.5/9.5 S TETRACYCLINE <=4 S VANCOMYCIN 1 S Objective Assessment Fever - better Pancytopenia 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 Recently placed on 11/25. -Status post Port-A-Cath removal 12/31/2019. Cath tip positive for MRSA and MSSA Gastroparesis, on total parenteral nutrition at home. s/p G-tube exchange and j-tube injection, 12/27 Plan Plan of Care Continue daptomycin CK 27 from 12/31 Monitor for abx toxicity F/u BC from 01/01 negative so far Maintain aspiration precautions Awaiting port re-placement Attending Co-Sign Attending Co-Sign The patient was seen and interviewed as well as examined at the bedside. The chart was reviewed. The case was discussed. Agree with the plan of care. ISAIAS ELI APRN Jan 06, 2020 10:43 GAYLE RODRIGUEZ MD Jan 06, 2020 14:58
--- NOTE | 2020-01-06 10:50 | PDOC ---
PROGRESS NOTES Date of Service: DATE: 01/06/20 TIME: 10:48 Chief Complaint Chief Complaint Sepsis 3/4 blood culture bottles positive for gram + cocci in clusters port infection, removed, needs replaced for her TPN at home, malnutrition baseline Hypotension Severe idiopathic gastroparesis Blood culture positive with Staphylococcus, 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 History of Present Illness History of Present Illness 01/05, midline IV placed, will try TPN tonight, port to be replaced pain better, + weakness, hypotensive this AM, will bolus NS one liter, probably dry 01/04, IV lost, will try midline, discussed with ID rehan Pulido plan PORT placement mondysteph 12/31. LAVELL Vitals Vitals Vital Signs Date Time Temp Pulse Resp B/P (MAP) Pulse Ox O2 Delivery O2 Flow Rate FiO2 01/06/20 07:40 Room Air 01/06/20 07:00 98.0 81 18 90/52 (65) 97 98.0 01/06/20 02:36 2.0 Physical Exam Physical Exam GENERAL: Propped up in bed, alert, in NAD HEENT: [place]. Oral cavity pink, dry. Some bacterial overgrowth on the tongue NECK: Supple LUNGS: Clear. HEART: S1, S2 regular. ABDOMEN: Bowel sounds present, soft and nontender. J-tube clean EXTREMITIES: No edema or cyanosis. SKIN: without rash. NEUROLOGICAL: Alert oriented, x3 no focal neurologic deficit. Right-sided Port-A-Cath removed, dressing dry RUE-midline clean General: Alert, Oriented X3 Heart: Regular rate Lungs: Clear Abdomen: Normal bowel sounds, Soft Extremities: No clubbing, No cyanosis Skin: No rashes Assessment and Plan Assessmemt and Plan Problems Medical Problems: (1) Fever Status: Acute (2) Infection due to Port-A-Cath Status: Acute Comment Review of Relevant I have reviewed the following items allo (where applicable) has been applied. Labs Microbiology 01/02/20 Blood Culture - Preliminary, Resulted NO GROWTH AFTER 4 DAYS 12/31/19 Gram Stain - Final, Complete 12/31/19 Aerobic and Anaerobic Culture - Final, Complete 12/31/19 Antimicrobic Susceptibility - Final, Complete Medications Current Medications Sodium Chloride 1,000 ml @ 1,000 mls/hr Q1H IV Last administered on 12/26/19at 14:52; Start 12/26/19 at 14:44; Stop 12/26/19 at 15:43; Status DC Acetaminophen (Tylenol) 1,000 mg 1X ONCE PO Last administered on 12/26/19at 14:52; Start 12/26/19 at 14:45; Stop 12/26/19 at 14:52; Status DC Fentanyl Citrate (Fentanyl 2ml Vial) 50 mcg 1X ONCE IVP Last administered on 12/26/19at 14:51; Start 12/26/19 at 14:45; Stop 12/26/19 at 14:52; Status DC Sodium Chloride 1,000 ml @ 1,000 mls/hr 1X ONCE IV Last administered on 12/26/19at 16:16; Start 12/26/19 at 15:30; Stop 12/26/19 at 16:29; Status DC Piperacillin Sod/ Tazobactam Sod 3.375 gm/Sodium Chloride 50 ml @ 100 mls/hr 1X ONCE IV Last administered on 12/26/19at 16:15; Start 12/26/19 at 16:15; Stop 12/27/19 at 10:20; Status DC Diphenhydramine HCl (Benadryl) 25 mg 1X ONCE IVP Last administered on 12/26/19at 16:16; Start 12/26/19 at 16:15; Stop 12/26/19 at 16:16; Status DC Vancomycin HCl (Vanco Per Pharmacy) 1 each PRN DAILY PRN MC SEE COMMENTS Last administered on 12/29/19at 12:34; Start 12/26/19 at 16:15; Stop 12/29/19 at 12:43; Status DC Vancomycin HCl 1.75 gm/Sodium Chloride 500 ml @ 250 mls/hr 1X ONCE IV Last administered on 12/26/19at 16:59; Start 12/26/19 at 17:00; Stop 12/26/19 at 18:59; Status DC Fentanyl Citrate (Fentanyl 2ml Vial) 50 mcg 1X ONCE IVP Last administered on 12/26/19at 16:59; Start 12/26/19 at 16:45; Stop 12/26/19 at 16:46; Status DC Vancomycin HCl 1 gm/Sodium Chloride 250 ml @ 250 mls/hr Q8H IV Last administered on 12/27/19at 18:09; Start 12/27/19 at 01:00; Stop 12/27/19 at 20:25; Status DC Vancomycin HCl (Vancomycin Trough Level) 1 each 1X ONCE MC Last administered on 12/27/19at 16:30; Start 12/27/19 at 16:30; Stop 12/27/19 at 16:31; Status DC Fentanyl Citrate (Fentanyl 2ml Vial) 50 mcg PRN Q2HR PRN IVP PAIN Last administered on 01/04/20at 11:00; Start 12/26/19 at 18:45 Ondansetron HCl (Zofran) 4 mg PRN Q6HRS PRN IVP NAUSEA/VOMITING 1ST CHOICE Last administered on 01/06/20at 08:22; Start 12/26/19 at 18:45 Prochlorperazine Edisylate (Compazine) 10 mg PRN Q8HRS PRN IM NAUSEA/VOMITING Last administered on 12/28/19at 12:28; Start 12/26/19 at 18:45; Stop 12/29/19 at 14:52; Status DC Acetaminophen (Tylenol) 650 mg PRN Q6HRS PRN PEG MILD PAIN / TEMP > 100.3'F Last administered on 12/27/19at 11:50; Start 12/26/19 at 18:45 Cefazolin Sodium/ Dextrose 50 ml @ 100 mls/hr Q8HRS IV ; Start 12/27/19 at 11:00; Status Cancel Cefazolin Sodium/ Dextrose 50 ml @ 100 mls/hr Q8HRS IV Last administered on 12/29/19at 05:55; Start 12/27/19 at 12:00; Stop 12/29/19 at 12:38; Status DC Amino Acids/ Glycerin/ Electrolytes 1,000 ml @ 75 mls/hr [id number] IV Last administered on 01/05/20at 06:25; Start 12/27/19 at 11:30 Vancomycin HCl 1.25 gm/Sodium Chloride 250 ml @ 250 mls/hr Q8H IV Last administered on 12/29/19at 02:00; Start 12/28/19 at 02:00; Stop 12/29/19 at 10:05; Status DC Vancomycin HCl (Vancomycin Trough Level) 1 each 1X ONCE MC Last administered on 12/29/19at 09:30; Start 12/29/19 at 09:30; Stop 12/29/19 at 09:31; Status DC Iohexol (Omnipaque 240 Mg/ml) 50 ml STK-MED ONCE .ROUTE ; Start 12/28/19 at 11:26; Stop 12/28/19 at 11:26; Status DC Midazolam HCl (Versed) 2 mg STK-MED ONCE .ROUTE ; Start 12/28/19 at 12:21; Stop 12/28/19 at 12:22; Status DC Fentanyl Citrate (Fentanyl 2ml Vial) 100 mcg STK-MED ONCE .ROUTE ; Start 12/28/19 at 12:21; Stop 12/28/19 at 12:22; Status DC Potassium Chloride/Water 100 ml @ 100 mls/hr Q1H IV Last administered on 12/28/19at 18:41; Start 12/28/19 at 13:00; Stop 12/28/19 at 14:59; Status DC Lidocaine HCl (Buffered Lidocaine 1%) 3 ml 1X ONCE IJ Last administered on 12/28/19at 12:50; Start 12/28/19 at 13:00; Stop 12/28/19 at 13:01; Status DC Midazolam HCl (Versed) 2 mg 1X ONCE IV Last administered on 12/28/19at 12:45; Start 12/28/19 at 13:00; Stop 12/28/19 at 13:01; Status DC Iohexol (Omnipaque 240 Mg/ml) 50 ml 1X ONCE IJ Last administered on 12/28/19at 12:52; Start 12/28/19 at 13:00; Stop 12/28/19 at 13:01; Status DC Lidocaine HCl (Buffered Lidocaine 1%) 3 ml STK-MED ONCE .ROUTE ; Start 12/28/19 at 12:54; Stop 12/28/19 at 12:55; Status DC Fentanyl Citrate (Fentanyl 2ml Vial) 100 mcg 1X ONCE IV Last administered on 12/28/19at 12:50; Start 12/28/19 at 13:15; Stop 12/28/19 at 13:16; Status DC Vancomycin HCl 1.25 gm/Sodium Chloride 250 ml @ 250 mls/hr Q6H IV ; Start 12/29/19 at 10:00; Status Cancel Vancomycin HCl 1.25 gm/Sodium Chloride 250 ml @ 250 mls/hr Q6H IV ; Start 12/29/19 at 10:08; Status Cancel Vancomycin HCl 1.25 gm/Sodium Chloride 250 ml @ 250 mls/hr Q6H IV Last administered on 12/29/19at 10:48; Start 12/29/19 at 10:00; Stop 12/29/19 at 12:41; Status DC Vancomycin HCl 1.75 gm/Sodium Chloride 500 ml @ 250 mls/hr Q8H IV ; Start 12/29/19 at 19:00; Stop 12/29/19 at 12:40; Status DC Vancomycin HCl (Vancomycin Trough Level) 1 each 1X ONCE MC ; Start 12/30/19 at 18:30; Stop 12/30/19 at 18:31; Status Cancel Daptomycin 440 mg/ Sodium Chloride 50 ml @ 100 mls/hr Q24H IV Last administered on 01/06/20at 08:23; Start 12/29/19 at 13:00 Prochlorperazine Edisylate (Compazine) 10 mg PRN Q8HRS PRN IVP NAUSEA/VOMITING 2ND CHOICE Last administered on 01/03/20at 18:07; Start 12/29/19 at 15:00 Lidocaine/ Epinephrine (LIDOCAINE 1%-EPI 1:100,000 Multi-Dose) 20 ml STK-MED ONCE .ROUTE ; Start 12/31/19 at 13:28; Stop 12/31/19 at 13:28; Status DC Midazolam HCl (Versed) 2 mg STK-MED ONCE .ROUTE ; Start 12/31/19 at 14:03; Stop 12/31/19 at 14:04; Status DC Fentanyl Citrate (Fentanyl 2ml Vial) 100 mcg STK-MED ONCE .ROUTE ; Start 12/31/19 at 14:04; Stop 12/31/19 at 14:04; Status DC Midazolam HCl (Versed) 2 mg 1X ONCE IV Last administered on 12/31/19at 14:15; Start 12/31/19 at 14:15; Stop 12/31/19 at 14:19; Status DC Fentanyl Citrate (Fentanyl 2ml Vial) 100 mcg 1X ONCE IV Last administered on 12/31/19at 14:15; Start 12/31/19 at 14:15; Stop 12/31/19 at 14:19; Status DC Lidocaine/ Epinephrine (LIDOCAINE 1%-EPI 1:100,000 Multi-Dose) 20 ml 1X ONCE INJ Last administered on 12/31/19at 14:15; Start 12/31/19 at 14:15; Stop 12/21 at 14:19; Status DC Fentanyl Citrate (Fentanyl 2ml Vial) 50 mcg 1X ONCE IVP Last administered on 12/31/19at 17:45; Start 12/31/19 at 17:45; Stop 12/31/19 at 17:46; Status DC Lidocaine HCl (Viscous Lidocaine) 15 ml STK-MED ONCE .ROUTE ; Start 01/01/20 at 11:43; Stop 01/01/20 at 11:43; Status DC Lidocaine HCl (Xylocaine 2% Topical 30gm Tube) 30 joy STK-MED ONCE TP ; Start at 11:43; Stop 01/01/20 at 11:43; Status DC Benzocaine (Hurricaine One) 1 spray STK-MED ONCE .ROUTE ; Start 01/01/20 at 11:43; Stop 01/01/20 at 11:43; Status DC Propofol (Diprivan) 200 mg STK-MED ONCE IV ; Start 01/01/20 at 13:43; Stop 01/01/20 at 13:44; Status DC Ringer's Solution 1,000 ml @ 50 mls/hr Q20H IV ; Start 01/01/20 at 14:14; Stop 01/02/20 at 02:13; Status DC Phytonadione (Vitamin K Ampule) 10 mg 1X ONCE SQ Last administered on 01/02/20at 16:22; Start 01/02/20 at 15:30; Stop 01/02/20 at 15:31; Status DC Morphine Sulfate (Morphine Sulfate) 4 mg PRN Q2HR PRN IV PAIN Last administered on 01/06/20at 07:39; Start 01/04/20 at 12:00 Diphenhydramine HCl (Benadryl) 25 mg PRN Q6HRS PRN IVP ITCHING Last administered on 01/05/20at 09:43; Start 01/05/20 at 09:45 Prochlorperazine Edisylate (Compazine) 10 mg 1X ONCE IM Last administered on 01/05/20at 10:11; Start 01/05/20 at 10:15; Stop 01/05/20 at 10:16; Status DC Morphine Sulfate (Morphine Sulfate) 4 mg 1X ONCE IV ; Start 01/05/20 at 10:15; Stop 01/05/20 at 10:14; Status DC Morphine Sulfate (Morphine Sulfate) 4 mg 1X ONCE IM Last administered on 01/05/20at 10:16; Start 01/05/20 at 10:15; Stop 01/05/20 at 10:16; Status DC Morphine Sulfate (Morphine Sulfate) 4 mg 1X ONCE IM Last administered on 01/05/20at 14:27; Start 01/05/20 at 14:15; Stop 01/05/20 at 14:16; Status DC Morphine Sulfate (Morphine Sulfate) 4 mg 1X ONCE IM Last administered on 01/05/20at 17:45; Start 01/05/20 at 16:45; Stop 01/05/20 at 16:46; Status DC Prochlorperazine Edisylate (Compazine) 10 mg 1X ONCE IM Last administered on 01/05/20at 17:45; Start 01/05/20 at 16:45; Stop 01/05/20 at 16:46; Status DC Morphine Sulfate (Morphine Sulfate) 4 mg 1X ONCE IM Last administered on 01/05/20at 21:58; Start 01/05/20 at 20:00; Stop 01/05/20 at 20:12; Status DC Prochlorperazine Edisylate (Compazine) 10 mg 1X ONCE IM ; Start 01/05/20 at 20:00; Stop 01/05/20 at 20:12; Status DC Active Scripts Active [Tpn Per Pharmacy] 1 EACH Each 1 Each PRN DAILY PRN 30 Days Tpn Electrolytes Vial (Sodium/K+/Mag/Ca/Chlor/Acetate) 20 Ml Vial 20 Ml IV DAILY06 30 Days Metoclopramide Hcl 5 Mg/1 Ml Vial 10 Mg IVP PRN Q6HRS PRN 14 Days [Pantoprazole Iv Push] 40 MG Vial 40 Mg IVP BIDAC 30 Days Ondansetron Hcl 4 Mg/2 Ml Vial (Ondansetron Hcl/Pf) 4 Mg/2 Ml Vial 4 Mg IVP PRN Q6HRS PRN 30 Days Prochlorperazine Edisylate 10 Mg/2 Ml Vial 10 Mg IV PRN Q6HRS PRN 14 Days Milk Of Magnesia (Magnesium Hydroxide) 400 Mg/5 Ml Oral.susp 2,400 Mg JT DAILY 30 Days Enemeez (Docusate Sodium) 283 Mg/5 Ml Enema 283 Mg NC PRN DAILY PRN 30 Days Bisacodyl 10 Mg Supp.rect 10 Mg NC PRN DAILY PRN 30 Days Nystatin 100,000 Unit/1 Ml Oral.susp 5 Ml SWSW [id number] 10 Days Hydrocodone-Apap 7.5-325/15 Soln (Hydrocodone Bit/Acetaminophen) 15 Ml Solution 15 Ml JT PRN Q6HRS PRN Reported Metoprolol Tartrate 50 Mg Tablet 1 Tab PO BID Advair Hfa 230-21 Mcg Inhaler (Fluticasone/Salmeterol) 12 Gm Hfa.aer.ad 1 Inh IH BID Dicyclomine Hcl 20 Mg Tablet 20 Mg GT PRN QID PRN Olopatadine HCl 5 Ml Drops 0.1 % OP PRN DAILY PRN Promethazine Hcl 12.5 Mg Tablet 25 Mg GT Q6H PRN Trazodone Hcl 50 Mg Tablet 50 Mg GT HS Coq-10 (Ubidecarenone) 100 Mg Capsule 200 Mg GT DAILY Vitamin D3 (Cholecalciferol (Vitamin D3)) 4,000 Unit Capsule 2,000 Unit PO HS Xyzal (Levocetirizine Dihydrochloride) 5 Mg Tablet 5 Mg GT HS Proair Hfa (Albuterol Sulfate) 8.5 Gm Hfa.aer.ad 2 Puff IH PRN Q4-6HRS PRN 21 Days Ipratropium [place] 30 Ml Nucla 1 Nucla NS DAILY Duoneb 0.5-3(2.5) Mg/3 Ml (Albuterol/Ipratropium) 3 Ml Ampul.neb 3 Ml NEB PRN QID PRN Montelukast Sodium Tablet (Montelukast Sodium) 10 Mg Tablet 10 Mg GT DAILY PRN Multi Vitamin Daily (Multivitamin) 1 Each Tablet 1 Each GT DAILY Vitals/I & O Vital Sign - Last 24 Hours 01/05/20 01/05/20 01/05/20 01/05/20 11:00 12:01 14:27 14:57 Temp 97.9 97.9 Pulse 62 Resp 18 B/P (MAP) 95/54 (68) Pulse Ox 100 O2 Delivery Room Air Room Air Room Air Room Air 01/05/20 01/05/20 01/05/2015/20 15:00 17:45 19:00 20:00 Temp 97.9 97.9 97.9 97.9 Pulse 79 77 Resp 18 18 B/P (MAP) 100/63 (75) 104/55 (71) Pulse Ox 97 99 O2 Delivery Room Air Room Air Room Air Room Air O2 Flow Rate 2.0 01/05/20 01/05/20 01/05/20 01/06/20 21:58 22:28 23:00 01:04 Temp 97.8 97.8 Pulse 75 Resp 18 18 18 B/P (MAP) 93/51 (65) Pulse Ox 99 95 95 95 O2 Delivery Room Air Room Air Room Air Room Air O2 Flow Rate 2.0 01/06/20 01/06/20 01/06/20 01/06/20 01:34 02:36 05:00 05:30 Temp 98.3 98.3 Pulse 70 Resp 18 17 18 18 B/P (MAP) 92/50 (64) Pulse Ox 95 95 95 95 O2 Delivery Room Air Room Air Room Air Room Air O2 Flow Rate 2.0 01/06/20 01/06/20 01/06/20 07:00 07:39 07:40 Temp 98.0 98.0 Pulse 81 Resp 18 B/P (MAP) 90/52 (65) Pulse Ox 97 O2 Delivery Room Air Room Air Room Air Intake and Output 01/05/20 01/05/20 01/06/20 15:00 23:00 07:00 Intake Total 0 ml Balance 0 ml Justicifation of Admission Dx: Justifications for Admission: Justification of Admission Dx: Yes Sepsis: Bacteremia KRISTEN ESPAÑA MD Jan 06, 2020 10:50
[2020-01-06 11:00] VITALS: BP 87/47
[2020-01-06] MEDS ORDERED: IV NORMAL SALINE 1000ML BAG 1,000 ML IV ONE (11:00)
[2020-01-06] MEDS ORDERED: TPN PER PHARMACY MC PRN (11:00)
[2020-01-06] MEDS: AMINO AC 3%/ELECTROLYTE/GLYCER 1,000 ML IV SCH (11:30)
[2020-01-06] MEDS: diphenhydrAMINE 50 MG/ML VIAL IVP PRN (12:58)
[2020-01-06 15:00] VITALS: BP 102/60
[2020-01-06 19:08] VITALS: BP 82/52
[2020-01-06 23:13] VITALS: BP 97/61
[2020-01-07] VITALS (9 sets, daily range): BP systolic 83–102; BP diastolic 51–64
[2020-01-07] MEDS: MORPHINE SULFATE 4 MG/ML VIAL. IV PRN ×5 (02:12→20:10)
[2020-01-07] MEDS: diphenhydrAMINE 50 MG/ML VIAL IVP PRN ×4 (02:12→23:55)
[2020-01-07] MEDS: AMINO AC 3%/ELECTROLYTE/GLYCER 1,000 ML IV SCH ×3 (05:47→23:55)
--- NOTE | 2020-01-07 09:38 | NUR ---
SW following. Discussed with RN, pt NPO, awaiting cultures for port replacement for home TPN. Pt on IV daptomycin. SW will continue to follow.
[2020-01-07] MEDS: DAPTOmycin (GENERIC) IVPB 440 MG in IV NORMAL SALINE 50ML 50 ML IV SCH (10:13)
[2020-01-07] MEDS: ONDANSETRON PF 4 MG/2 ML VIAL. IVP PRN (12:09)
--- NOTE | 2020-01-07 12:50 | PDOC ---
Infectious Disease Note Subjective Subjective Chronic nausea, no vomiting or diarrhea No fevers/chills Vital Sign Vital Signs Vital Signs Date Time Temp Pulse Resp B/P (MAP) Pulse Ox O2 Delivery O2 Flow Rate FiO2 01/07/20 07:30 Room Air 01/07/20 07:00 97.9 45 18 83/51 (62) 100 97.9 Physical Exam PHYSICAL EXAM GENERAL: Propped up in bed, alert, in NAD HEENT: [place]. Oral cavity pink, dry. Some bacterial overgrowth on the tongue NECK: Supple LUNGS: Clear. HEART: S1, S2 regular. ABDOMEN: Bowel sounds present, soft and nontender. J-tube clean EXTREMITIES: No edema or cyanosis. SKIN: without rash. NEUROLOGICAL: Alert oriented, x3 no focal neurologic deficit. 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 Recently placed on 11/25. -Status post Port-A-Cath removal 12/31/2019. Cath tip positive for MRSA and MSSA Gastroparesis, on total parenteral nutrition at home. s/p G-tube exchange and j-tube injection, 12/27 Plan Plan of Care Continue daptomycin will need IV abx through 01/14 CK 27 from 12/31 Monitor for abx toxicity F/u BC from 01/01 negative so far Maintain aspiration precautions Awaiting port re-placement - ok to place from ID standpoint KELLEN HODGSON MD Jan 07, 2020 12:50
--- NOTE | 2020-01-07 12:57 | NUR ---
Dr. Richter on the unit rounding, notified of low bps. stated he would go see pt.
[2020-01-07] MEDS ORDERED: IV NORMAL SALINE 1000ML BAG 1,000 ML IV ONE (14:15)
--- NOTE | 2020-01-07 14:15 | PDOC ---
PROGRESS NOTES Date of Service: DATE: 01/07/20 TIME: 14:11 Chief Complaint Chief Complaint Sepsis 3/4 blood culture bottles positive for gram + cocci in clusters port infection, removed, needs replaced for her TPN at home, malnutrition baseline Hypotension Severe idiopathic gastroparesis Blood culture positive with Staphylococcus, 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 History of Present Illness History of Present Illness 01/06 Patient resting comfortably in bed. Per patient's nurse, still remains slightly hypotensive, but afebrile with MAP >65. Patient denies any complaints, anxious to go home. 01/05, midline IV placed, will try TPN tonight, port to be replaced pain better, + weakness, hypotensive this AM, will bolus NS one liter, probably dry 01/04, IV lost, will try midline, discussed with ID rehan Pulido plan PORT placement ayanna 12/31. LAVELL Vitals Vitals Vital Signs Date Time Temp Pulse Resp B/P (MAP) Pulse Ox O2 Delivery O2 Flow Rate FiO2 01/07/20 13:21 Room Air 01/07/20 13:15 103 98/55 (69) 01/07/20 11:00 97.6 18 100 97.6 Physical Exam Physical Exam GENERAL: Propped up in bed, alert, in NAD HEENT: [place]. Oral cavity pink, dry. Some bacterial overgrowth on the tongue NECK: Supple LUNGS: Clear. HEART: S1, S2 regular. ABDOMEN: Bowel sounds present, soft and nontender. J-tube clean EXTREMITIES: No edema or cyanosis. SKIN: without rash. NEUROLOGICAL: Alert oriented, x3 no focal neurologic deficit. Right-sided Port-A-Cath removed, dressing dry RUE-midline clean General: Alert, Oriented X3 Heart: Regular rate Lungs: Clear Abdomen: Normal bowel sounds, Soft Extremities: No clubbing, No cyanosis Skin: No rashes Review of Systems Review of Systems No fever, no nausea, all other systems negative. Assessment and Plan Assessmemt and Plan Problems Medical Problems: (1) Fever Status: Acute (2) Infection due to Port-A-Cath Status: Acute Comment Review of Relevant I have reviewed the following items lalo (where applicable) has been applied. Labs Microbiology 01/02/20 Blood Culture - Final, Complete NO GROWTH AFTER 5 DAYS 12/31/19 Gram Stain - Final, Complete 12/31/19 Aerobic and Anaerobic Culture - Final, Complete 12/31/19 Antimicrobic Susceptibility - Final, Complete Medications Current Medications Sodium Chloride 1,000 ml @ 1,000 mls/hr Q1H IV Last administered on 12/26/19at 14:52; Start 12/26/19 at 14:44; Stop 12/26/19 at 15:43; Status DC Acetaminophen (Tylenol) 1,000 mg 1X ONCE PO Last administered on 12/26/19at 14:52; Start 12/26/19 at 14:45; Stop 12/26/19 at 14:52; Status DC Fentanyl Citrate (Fentanyl 2ml Vial) 50 mcg 1X ONCE IVP Last administered on 12/26/19at 14:51; Start 12/26/19 at 14:45; Stop 12/26/19 at 14:52; Status DC Sodium Chloride 1,000 ml @ 1,000 mls/hr 1X ONCE IV Last administered on 12/26/19 16:16; Start 12/26/19 at 15:30; Stop 12/26/19 at 16:29; Status DC Piperacillin Sod/ Tazobactam Sod 3.375 gm/Sodium Chloride 50 ml @ 100 mls/hr 1X ONCE IV Last administered on 12/26/19at 16:15; Start 12/26/19 at 16:15; Stop 12/27/19 at 10:20; Status DC Diphenhydramine HCl (Benadryl) 25 mg 1X ONCE IVP Last administered on 12/26/19at 16:16; Start 12/26/19 at 16:15; Stop 12/26/19 at 16:16; Status DC Vancomycin HCl (Vanco Per Pharmacy) 1 each PRN DAILY PRN MC SEE COMMENTS Last administered on 12/29/19at 12:34; Start 12/26/19 at 16:15; Stop 12/29/19 at 12:43; Status DC Vancomycin HCl 1.75 gm/Sodium Chloride 500 ml @ 250 mls/hr 1X ONCE IV Last administered on 12/26/19at 16:59; Start 12/26/19 at 17:00; Stop 12/26/19 at 18:59; Status DC Fentanyl Citrate (Fentanyl 2ml Vial) 50 mcg 1X ONCE IVP Last administered on 12/26/19at 16:59; Start 12/26/19 at 16:45; Stop 12/26/19 at 16:46; Status DC Vancomycin HCl 1 gm/Sodium Chloride 250 ml @ 250 mls/hr Q8H IV Last administered on 12/27/19at 18:09; Start 12/27/19 at 01:00; Stop 12/27/19 at 20:25; Status DC Vancomycin HCl (Vancomycin Trough Level) 1 each 1X ONCE MC Last administered on 12/27/19at 16:30; Start 12/27/19 at 16:30; Stop 12/27/19 at 16:31; Status DC Fentanyl Citrate (Fentanyl 2ml Vial) 50 mcg PRN Q2HR PRN IVP PAIN 1st choice Last administered on 01/04/20at 11:00; Start 12/26/19 at 18:45 Ondansetron HCl (Zofran) 4 mg PRN Q6HRS PRN IVP NAUSEA/VOMITING 1ST CHOICE Last administered on 01/07/20at 12:09; Start 12/26/19 at 18:45 Prochlorperazine Edisylate (Compazine) 10 mg PRN Q8HRS PRN IM NAUSEA/VOMITING Last administered on 12/28/19at 12:28; Start 12/26/19 at 18:45; Stop 12/29/19 at 14:52; Status DC Acetaminophen (Tylenol) 650 mg PRN Q6HRS PRN PEG MILD PAIN / TEMP > 100.3'F Last administered on 12/27/19at 11:50; Start 12/26/19 at 18:45 Cefazolin Sodium/ Dextrose 50 ml @ 100 mls/hr Q8HRS IV ; Start 12/27/19 at 11:00; Status Cancel Cefazolin Sodium/ Dextrose 50 ml @ 100 mls/hr Q8HRS IV Last administered on 12/29/19at 05:55; Start 12/27/19 at 12:00; Stop 12/29/19 at 12:38; Status DC Amino Acids/ Glycerin/ Electrolytes 1,000 ml @ 75 mls/hr [id number] IV Last administered on 01/07/20at 05:47; Start 12/27/19 at 11:30 Vancomycin HCl 1.25 gm/Sodium Chloride 250 ml @ 250 mls/hr Q8H IV Last administered on 12/29/19at 02:00; Start 12/28/19 at 02:00; Stop 12/29/19 at 10:05; Status DC Vancomycin HCl (Vancomycin Trough Level) 1 each 1X ONCE MC Last administered on 12/29/19at 09:30; Start 12/29/19 at 09:30; Stop 12/29/19 at 09:31; Status DC Iohexol (Omnipaque 240 Mg/ml) 50 ml STK-MED ONCE .ROUTE ; Start 12/28/19 at 11:26; Stop 12/28/19 at 11:26; Status DC Midazolam HCl (Versed) 2 mg STK-MED ONCE .ROUTE ; Start 12/28/19 at 12:21; Stop 12/28/19 at 12:22; Status DC Fentanyl Citrate (Fentanyl 2ml Vial) 100 mcg STK-MED ONCE .ROUTE ; Start 12/28/19 at 12:21; Stop 12/28/19 at 12:22; Status DC Potassium Chloride/Water 100 ml @ 100 mls/hr Q1H IV Last administered on 12/28/19at 18:41; Start 12/28/19 at 13:00; Stop 12/28/19 at 14:59; Status DC Lidocaine HCl (Buffered Lidocaine 1%) 3 ml 1X ONCE IJ Last administered on 12/28/19at 12:50; Start 12/28/19 at 13:00; Stop 12/28/19 at 13:01; Status DC Midazolam HCl (Versed) 2 mg 1X ONCE IV Last administered on 12/28/19at 12:45; Start 12/28/19 at 13:00; Stop 12/28/19 at 13:01; Status DC Iohexol (Omnipaque 240 Mg/ml) 50 ml 1X ONCE IJ Last administered on 12/28/19at 12:52; Start 12/28/19 at 13:00; Stop 12/28/19 at 13:01; Status DC Lidocaine HCl (Buffered Lidocaine 1%) 3 ml STK-MED ONCE .ROUTE ; Start 12/28/19 at 12:54; Stop 12/28/19 at 12:55; Status DC Fentanyl Citrate (Fentanyl 2ml Vial) 100 mcg 1X ONCE IV Last administered on 12/28/19at 12:50; Start 12/28/19 at 13:15; Stop 12/28/19 at 13:16; Status DC Vancomycin HCl 1.25 gm/Sodium Chloride 250 ml @ 250 mls/hr Q6H IV ; Start 12/29/19 at 10:00; Status Cancel Vancomycin HCl 1.25 gm/Sodium Chloride 250 ml @ 250 mls/hr Q6H IV ; Start 12/29/19 at 10:08; Status Cancel Vancomycin HCl 1.25 gm/Sodium Chloride 250 ml @ 250 mls/hr Q6H IV Last administered on 12/29/19at 10:48; Start 12/29/19 at 10:00; Stop 12/29/19 at 12:41; Status DC Vancomycin HCl 1.75 gm/Sodium Chloride 500 ml @ 250 mls/hr Q8H IV ; Start 12/29/19 at 19:00; Stop 12/29/19 at 12:40; Status DC Vancomycin HCl (Vancomycin Trough Level) 1 each 1X ONCE MC ; Start 12/30/19 at 18:30; Stop 12/30/19 at 18:31; Status Cancel Daptomycin 440 mg/ Sodium Chloride 50 ml @ 100 mls/hr Q24H IV Last administered on 01/07/20at 10:13; Start 12/29/19 at 13:00 Prochlorperazine Edisylate (Compazine) 10 mg PRN Q8HRS PRN IVP NAUSEA/VOMITING 2ND CHOICE Last administered on 01/03/20at 18:07; Start 12/29/19 at 15:00 Lidocaine/ Epinephrine (LIDOCAINE 1%-EPI 1:100,000 Multi-Dose) 20 ml STK-MED ONCE .ROUTE ; Start 12/31/19 at 13:28; Stop 12/31/19 at 13:28; Status DC Midazolam HCl (Versed) 2 mg STK-MED ONCE .ROUTE ; Start 12/31/19 at 14:03; Stop 12/31/19 at 14:04; Status DC Fentanyl Citrate (Fentanyl 2ml Vial) 100 mcg STK-MED ONCE .ROUTE ; Start 12/31/19 at 14:04; Stop 12/31/19 at 14:04; Status DC Midazolam HCl (Versed) 2 mg 1X ONCE IV Last administered on 12/31/19at 14:15; Start 12/31/19 at 14:15; Stop 12/31/19 at 14:19; Status DC Fentanyl Citrate (Fentanyl 2ml Vial) 100 mcg 1X ONCE IV Last administered on 12/31/19at 14:15; Start 12/31/19 at 14:15; Stop 12/31/19 at 14:19; Status DC Lidocaine/ Epinephrine (LIDOCAINE 1%-EPI 1:100,000 Multi-Dose) 20 ml 1X ONCE INJ Last administered on 12/31/19at 14:15; Start 12/31/19 at 14:15; Stop 12/31/19 at 14:19; Status DC Fentanyl Citrate (Fentanyl 2ml Vial) 50 mcg 1X ONCE IVP Last administered on 12/31/19at 17:45; Start 12/31/19 at 17:45; Stop 12/31/19 at 17:46; Status DC Lidocaine HCl (Viscous Lidocaine) 15 ml STK-MED ONCE .ROUTE ; Start 01/01/20 at 11:43; Stop 01/01/20 at 11:43; Status DC Lidocaine HCl (Xylocaine 2% Topical 30gm Tube) 30 joy STK-MED ONCE TP ; Start 01/01/20 at 11:43; Stop 01/01/20 at 11:43; Status DC Benzocaine (Hurricaine One) 1 spray STK-MED ONCE .ROUTE ; Start 01/01/20 at 11:43; Stop 01/01/20 at 11:43; Status DC Propofol (Diprivan) 200 mg STK-MED ONCE IV ; Start 01/01/20 at 13:43; Stop 01/01/20 at 13:44; Status DC Ringer's Solution 1,000 ml @ 50 mls/hr Q20H IV ; Start 01/01/20 at 14:14; Stop 01/02/20 at 02:13; Status DC Phytonadione (Vitamin K Ampule) 10 mg 1X ONCE SQ Last administered on 01/02/20at 16:22; Start 01/02/20 at 15:30; Stop 01/02/20 at 15:31; Status DC Morphine Sulfate (Morphine Sulfate) 4 mg PRN Q2HR PRN IV PAIN Last administered on 01/07/20at 13:21; Start 01/04/20 at 12:00 Diphenhydramine HCl (Benadryl) 25 mg PRN Q6HRS PRN IVP ITCHING Last adminis tered on 01/07/20at 09:27; Start 01/05/20 at 09:45 Prochlorperazine Edisylate (Compazine) 10 mg 1X ONCE IM Last administered on 01/05/20at 10:11; Start 01/05/20 at 10:15; Stop 01/05/20 at 10:16; Status DC Morphine Sulfate (Morphine Sulfate) 4 mg 1X ONCE IV ; Start 01/05/20 at 10:15; Stop 01/05/20 at 10:14; Status DC Morphine Sulfate (Morphine Sulfate) 4 mg 1X ONCE IM Last administered on 01/05/20at 10:16; Start 01/05/20 at 10:15; Stop 01/05/20 at 10:16; Status DC Morphine Sulfate (Morphine Sulfate) 4 mg 1X ONCE IM Last administered on 01/05/20at 14:27; Start 01/05/20 at 14:15; Stop 01/05/20 at 14:16; Status DC Morphine Sulfate (Morphine Sulfate) 4 mg 1X ONCE IM Last administered on 01/05/20at 17:45; Start 01/05/20 at 16:45; Stop 01/05/20 at 16:46; Status DC Prochlorperazine Edisylate (Compazine) 10 mg 1X ONCE IM Last administered on 01/05/20at 17:45; Start 01/05/20 at 16:45; Stop 01/05/20 at 16:46; Status DC Morphine Sulfate (Morphine Sulfate) 4 mg 1X ONCE IM Last administered on 01/05/20at 21:58; Start 01/05/20 at 20:00; Stop 01/05/20 at 20:12; Status DC Prochlorperazine Edisylate (Compazine) 10 mg 1X ONCE IM ; Start 01/05/20 at 20:00; Stop 01/05/20 at 20:12; Status DC Sodium Chloride 1,000 ml @ 1,000 mls/hr 1X ONCE IV Last administered on at 11:58; Start 01/06/20 at 11:00; Stop 01/06/20 at 11:59; Status DC Info (Tpn Per Pharmacy) 1 each PRN DAILY PRN MC SEE COMMENTS; Start 01/06/20 at 11:00; Stop 01/06/20 at 11:11; Status DC Active Scripts Active [Tpn Per Pharmacy] 1 EACH Each 1 Each MC PRN DAILY PRN 30 Days Tpn Electrolytes Vial (Sodium/K+/Mag/Ca/Chlor/Acetate) 20 Ml Vial 20 Ml IV DAILY06 30 Days Metoclopramide Hcl 5 Mg/1 Ml Vial 10 Mg IVP PRN Q6HRS PRN 14 Days [Pantoprazole Iv Push] 40 MG Vial 40 Mg IVP BIDAC 30 Days Ondansetron Hcl 4 Mg/2 Ml Vial (Ondansetron Hcl/Pf) 4 Mg/2 Ml Vial 4 Mg IVP PRN Q6HRS PRN 30 Days Prochlorperazine Edisylate 10 Mg/2 Ml Vial 10 Mg IV PRN Q6HRS PRN 14 Days Milk Of Magnesia (Magnesium Hydroxide) 400 Mg/5 Ml Oral.susp 2,400 Mg JT DAILY 30 Days Enemeez (Docusate Sodium) 283 Mg/5 Ml Enema 283 Mg VT PRN DAILY PRN 30 Days Bisacodyl 10 Mg Supp.rect 10 Mg VT PRN DAILY PRN 30 Days Nystatin 100,000 Unit/1 Ml Oral.susp 5 Ml SWSW [id number] 10 Days Hydrocodone-Apap 7.5-325/15 Soln (Hydrocodone Bit/Acetaminophen) 15 Ml Solution 15 Ml JT PRN Q6HRS PRN Reported Metoprolol Tartrate 50 Mg Tablet 1 Tab PO BID Advair Hfa 230-21 Mcg Inhaler (Fluticasone/Salmeterol) 12 Gm Hfa.aer.ad 1 Inh IH BID Dicyclomine Hcl 20 Mg Tablet 20 Mg GT PRN QID PRN Olopatadine HCl 5 Ml Drops 0.1 % OP PRN DAILY PRN Promethazine Hcl 12.5 Mg Tablet 25 Mg GT Q6H PRN Trazodone Hcl 50 Mg Tablet 50 Mg GT HS Coq-10 (Ubidecarenone) 100 Mg Capsule 200 Mg GT DAILY Vitamin D3 (Cholecalciferol (Vitamin D3)) 4,000 Unit Capsule 2,000 Unit PO HS Xyzal (Levocetirizine Dihydrochloride) 5 Mg Tablet 5 Mg GT HS Proair Hfa (Albuterol Sulfate) 8.5 Gm Hfa.aer.ad 2 Puff IH PRN Q4-6HRS PRN 21 Days Ipratropium Merlin 30 Ml [place] 1 [place] NS DAILY Duoneb 0.5-3(2.5) Mg/3 Ml (Albuterol/Ipratropium) 3 Ml Ampul.neb 3 Ml NEB PRN QID PRN Montelukast Sodium Tablet (Montelukast Sodium) 10 Mg Tablet 10 Mg GT DAILY PRN Multi Vitamin Daily (Multivitamin) 1 Each Tablet 1 Each GT DAILY Vitals/I & O Vital Sign - Last 24 Hours 01/06/20 01/06/20 01/06/20 01/06/20 14:59 15:00 16:17 16:55 Temp 97.9 97.9 Pulse 71 Resp 18 B/P (MAP) 102/60 (74) Pulse Ox 98 O2 Delivery Room Air Room Air Room Air Room Air 01/06/20 01/06/20 01/06/20 01/06/20 19:08 20:00 21:42 22:12 Temp 97.5 97.5 Pulse 77 Resp 14 16 16 B/P (MAP) 82/52 (62) Pulse Ox 99 99 9 O2 Delivery Room Air Room Air Room Air Room Air 01/06/20 01/07/20 01/07/20 01/07/20 23:13 02:12 02:42 03:15 Temp 97.9 98.0 97.9 98.0 Pulse 76 78 Resp 14 16 18 16 B/P (MAP) 97/61 (73) 84/56 (65) Pulse Ox 9 9 98 98 O2 Delivery Room Air Room Air Room Air Room Air 01/07/20 01/07/20 01/07/20 01/07/20 05:47 06:17 07:00 07:30 Temp 97.9 97.9 Pulse 45 Resp 16 16 18 B/P (MAP) 83/51 (62) Pulse Ox 98 98 100 O2 Delivery Room Air Room Air Room Air Room Air 01/07/20 01/07/20 01/07/20 01/07/20 11:00 13:10 13:12 13:15 Temp 97.6 97.6 Pulse 83 75 84 103 Resp 18 B/P (MAP) 87/60 (69) 83/55 (64) 100/55 (70) 98/55 (69) Pulse Ox 100 O2 Delivery Room Air 01/07/20 13:21 O2 Delivery Room Air Intake and Output 01/06/20 01/06/20 01/07/20 15:00 23:00 07:00 Intake Total 1050 ml Balance 1050 ml Justicifation of Admission Dx: Justifications for Admission: Justification of Admission Dx: Yes Sepsis: Bacteremia ALE JONES MD Jan 07, 2020 14:15
[2020-01-08] VITALS (12 sets, daily range): BP systolic 84–110; BP diastolic 20–64
--- NOTE | 2020-01-08 00:02 | NUR ---
Per patient's request, J-tube ands G-tube flushed and checked for patency; patient tolerated well and no other needs voiced at this time.
[2020-01-08] MEDS: MORPHINE SULFATE 4 MG/ML VIAL. IV PRN ×7 (01:59→22:04)
[2020-01-08 04:52] LABS: BASO % 0 % (0-3); EOS # 0.1 x10^3/uL (0.0-0.7); EOS % 1 % (0-3); HEMATOCRIT 32.1 % (36.0-47.0); LYMPH # 1.8 x10^3/uL (1.0-4.8); LYMPH % 41 % (24-48); MEAN CORPUSCULAR HEMOGLOBIN 31 pg (25-35); MEAN CORPUSCULAR HGB CONC 34 g/dL (31-37); MEAN CORPUSCULAR VOLUME 91 fL (79-100); MONO # 0.4 x10^3/uL (0.0-1.1); MONO % 9 % (0-9); NEUT # 2.1 x10^3/uL (1.8-7.7); NEUT % 49 % (31-73); PLATELET COUNT 154 x10^3/uL (140-400); RED BLOOD COUNT 3.53 x10^6/uL (3.50-5.40); RED CELL DISTRIBUTION WIDTH 13.1 % (11.5-14.5); WHITE BLOOD COUNT 4.4 x10^3/uL (4.0-11.0)
[2020-01-08 05:04] LABS: CALCIUM 8.4 mg/dL (8.5-10.1); CREATININE 0.6 mg/dL (0.6-1.0); GFR 126.2
[2020-01-08] MEDS: diphenhydrAMINE 50 MG/ML VIAL IVP PRN ×3 (08:21→21:19)
[2020-01-08] MEDS: DAPTOmycin (GENERIC) IVPB 440 MG in IV NORMAL SALINE 50ML 50 ML IV SCH (08:22)
[2020-01-08] MEDS: ONDANSETRON PF 4 MG/2 ML VIAL. IVP PRN ×3 (09:14→21:19)
--- NOTE | 2020-01-08 09:37 | NUR ---
SW following. Discussed with RN, pt having port replaced today. IV abx needed through 01/15/2020. TPN will be started through port again after replaced. Pt has home TPN through [facility] - can also do IV abx too. SW will continue to follow.
--- NOTE | 2020-01-08 10:29 | PDOC ---
Infectious Disease Note Subjective Subjective Still somechronic nausea, no vomiting or diarrhea No fevers/chills Vital Sign Vital Signs Vital Signs Date Time Temp Pulse Resp B/P (MAP) Pulse Ox O2 Delivery O2 Flow Rate FiO2 01/08/20 10:22 Room Air 01/08/20 07:57 16 01/08/20 07:00 97.9 74 88/40 (56) 92 97.9 Physical Exam PHYSICAL EXAM GENERAL: Propped up in bed alert, in NAD HEENT: [place]. Oral cavity pink, dry. Some bacterial overgrowth on the tongue NECK: Supple LUNGS: Clear. HEART: S1, S2 regular. ABDOMEN: Bowel sounds present, soft and nontender. J-tube clean EXTREMITIES: No edema or cyanosis. SKIN: without rash. NEUROLOGICAL: Alert oriented, x3 no focal neurologic deficit. Right-sided Port-A-Cath removed, dressing dry RUE-midline clean Labs Lab Laboratory Tests Test 01/08/20 03:19 White Blood Count 4.4 x10^3/uL (4.0-11.0) Red Blood Count 3.53 x10^6/uL (3.50-5.40) Hemoglobin 11.0 g/dL (12.0-15.5) Hematocrit 32.1 % (36.0-47.0) Mean Corpuscular Volume 91 fL (79-100) Mean Corpuscular Hemoglobin 31 pg (25-35) Mean Corpuscular Hemoglobin Concent 34 g/dL (31-37) Red Cell Distribution Width 13.1 % (11.5-14.5) Platelet Count 154 x10^3/uL (140-400) Neutrophils (%) (Auto) 49 % (31-73) Lymphocytes (%) (Auto) 41 % (24-48) Monocytes (%) (Auto) 9 % (0-9) Eosinophils (%) (Auto) 1 % (0-3) Basophils (%) (Auto) 0 % (0-3) Neutrophils # (Auto) 2.1 x10^3/uL (1.8-7.7) Lymphocytes # (Auto) 1.8 x10^3/uL (1.0-4.8) Monocytes # (Auto) 0.4 x10^3/uL (0.0-1.1) Eosinophils # (Auto) 0.1 x10^3/uL (0.0-0.7) Basophils # (Auto) 0.0 x10^3/uL (0.0-0.2) Sodium Level 141 mmol/L (136-145) Potassium Level 4.0 mmol/L (3.5-5.1) Chloride Level 104 mmol/L (98-107) Carbon Dioxide Level 29 mmol/L (21-32) Anion Gap 8 (6-14) Blood Urea Nitrogen 9 mg/dL (7-20) Creatinine 0.6 mg/dL (0.6-1.0) Estimated GFR (Cockcroft-Gault) 126.2 Glucose Level 71 mg/dL (70-99) Calcium Level 8.4 mg/dL (8.5-10.1) Creatine Kinase 23 U/L (26-192) Micro Microbiology 01/02/20 Blood Culture - Final, Complete NO GROWTH AFTER 5 DAYS 12/31/19 Gram Stain - Final, Complete 12/31/19 Aerobic and Anaerobic Culture - Final, Complete 12/31/19 Antimicrobic Susceptibility - Final, Complete Objective Assessment Fever - better Pancytopenia 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 Recently placed on 11/25. -Status post Port-A-Cath removal 12/31/2019. Cath tip positive for MRSA and MSSA Gastroparesis, on total parenteral nutrition at home. s/p G-tube exchange and j-tube injection, 12/27 Plan Plan of Care Port placement today Continue daptomycin will need IV abx through 01/14 CK 27 from 12/31 Monitor for abx toxicity F/u BC from 01/01 negative so far Maintain aspiration precautions Awaiting port re-placement - ok to place from ID standpoint KELLEN HODGSON MD Jan 08, 2020 10:29
--- NOTE | 2020-01-08 11:28 | EKG ---
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
--- NOTE | 2020-01-08 12:52 | NUR ---
Notified Dr. Richter of low BP, 88/40, bolus ordered. Pt has symptoms that appear during infusion of antibiotic, pt states she is feels itchy, chest tightness, nausea, and feels dizzy. Bp after bolus 98/47. EKG ordered stat per protocol Will continue to monitor closely. Doctors informed of symptoms.
[2020-01-08] MEDS ORDERED: MIDAZOLAM HCL/PF 2 MG/2 ML VIAL. ONE (14:27)
[2020-01-08] MEDS ORDERED: fentaNYL PF VIAL 100 MCG/2 ML VIAL ONE (14:27)
[2020-01-08] MEDS ORDERED: LIDOCAINE 1%/EPI 1:100,000 20 ML VIAL. ONE (14:36)
[2020-01-08] MEDS ORDERED: diphenhydrAMINE 50 MG/ML VIAL ONE (14:38)
[2020-01-08] MEDS ORDERED: MIDAZOLAM HCL/PF 2 MG/2 ML VIAL. IV ONE (15:00)
[2020-01-08] MEDS ORDERED: fentaNYL PF VIAL 100 MCG/2 ML VIAL IV ONE (15:00)
[2020-01-08] MEDS ORDERED: LIDOCAINE 1%/EPI 1:100,000 20 ML VIAL. INJ ONE (15:00)
--- NOTE | 2020-01-08 15:01 | NUR ---
Pt to IR for new portacath. Pt appears to have rash across chest and shoulders prior to arrival. Benadryl given per EMAR. JS RN
--- NOTE | 2020-01-08 16:04 | PDOC ---
PROGRESS NOTES Date of Service: DATE: 01/08/20 TIME: 15:59 Chief Complaint Chief Complaint Sepsis 3/4 blood culture bottles positive for gram + cocci in clusters port infection, removed, needs replaced for her TPN at home, malnutrition baseline Hypotension Severe idiopathic gastroparesis Blood culture positive with Staphylococcus, 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 History of Present Illness History of Present Illness 01/07 Patient without complaints. Port-A-Cath replacement today. 01/06 Patient resting comfortably in bed. Per patient's nurse, still remains slightly hypotensive, but afebrile with MAP >65. Patient denies any complaints, anxious to go home. 01/05, midline IV placed, will try TPN tonight, port to be replaced pain better, + weakness, hypotensive this AM, will bolus NS one liter, probably dry 01/04, IV lost, will try midline, discussed with ID rehan Dapto plan PORT placement mondavey 12/31. LAVELL Vitals Vitals Vital Signs Date Time Temp Pulse Resp B/P (MAP) Pulse Ox O2 Delivery O2 Flow Rate FiO2 01/08/20 15:36 91 19 100 Nasal Cannula 2.0 01/08/20 11:00 98.2 95/52 (66) 98.2 Physical Exam Physical Exam GENERAL: Propped up in bed alert, in NAD HEENT: [place]. Oral cavity pink, dry. Some bacterial overgrowth on the tongue NECK: Supple LUNGS: Clear. HEART: S1, S2 regular. ABDOMEN: Bowel sounds present, soft and nontender. J-tube clean EXTREMITIES: No edema or cyanosis. SKIN: without rash. NEUROLOGICAL: Alert oriented, x3 no focal neurologic deficit. Right-sided Port-A-Cath removed, dressing dry RUE-midline clean General: Alert, Oriented X3 Heart: Regular rate Lungs: Clear Abdomen: Normal bowel sounds, Soft Extremities: No clubbing, No cyanosis Skin: No rashes Labs LABS Laboratory Tests Test 01/08/20 03:19 White Blood Count 4.4 x10^3/uL (4.0-11.0) Red Blood Count 3.53 x10^6/uL (3.50-5.40) Hemoglobin 11.0 g/dL (12.0-15.5) Hematocrit 32.1 % (36.0-47.0) Mean Corpuscular Volume 91 fL (79-100) Mean Corpuscular Hemoglobin 31 pg (25-35) Mean Corpuscular Hemoglobin Concent 34 g/dL (31-37) Red Cell Distribution Width 13.1 % (11.5-14.5) Platelet Count 154 x10^3/uL (140-400) Neutrophils (%) (Auto) 49 % (31-73) Lymphocytes (%) (Auto) 41 % (24-48) Monocytes (%) (Auto) 9 % (0-9) Eosinophils (%) (Auto) 1 % (0-3) Basophils (%) (Auto) 0 % (0-3) Neutrophils # (Auto) 2.1 x10^3/uL (1.8-7.7) Lymphocytes # (Auto) 1.8 x10^3/uL (1.0-4.8) Monocytes # (Auto) 0.4 x10^3/uL (0.0-1.1) Eosinophils # (Auto) 0.1 x10^3/uL (0.0-0.7) Basophils # (Auto) 0.0 x10^3/uL (0.0-0.2) Sodium Level 141 mmol/L (136-145) Potassium Level 4.0 mmol/L (3.5-5.1) Chloride Level 104 mmol/L (98-107) Carbon Dioxide Level 29 mmol/L (21-32) Anion Gap 8 (6-14) Blood Urea Nitrogen 9 mg/dL (7-20) Creatinine 0.6 mg/dL (0.6-1.0) Estimated GFR (Cockcroft-Gault) 126.2 Glucose Level 71 mg/dL (70-99) Calcium Level 8.4 mg/dL (8.5-10.1) Creatine Kinase 23 U/L (26-192) Assessment and Plan Assessmemt and Plan Problems Medical Problems: (1) Fever Status: Acute (2) Infection due to Port-A-Cath Status: Acute Comment Review of Relevant I have reviewed the following items lalo (where applicable) has been applied. Labs Laboratory Tests Test 01/08/20 03:19 White Blood Count 4.4 x10^3/uL (4.0-11.0) Red Blood Count 3.53 x10^6/uL (3.50-5.40) Hemoglobin 11.0 g/dL (12.0-15.5) Hematocrit 32.1 % (36.0-47.0) Mean Corpuscular Volume 91 fL (79-100) Mean Corpuscular Hemoglobin 31 pg (25-35) Mean Corpuscular Hemoglobin Concent 34 g/dL (31-37) Red Cell Distribution Width 13.1 % (11.5-14.5) Platelet Count 154 x10^3/uL (140-400) Neutrophils (%) (Auto) 49 % (31-73) Lymphocytes (%) (Auto) 41 % (24-48) Monocytes (%) (Auto) 9 % (0-9) Eosinophils (%) (Auto) 1 % (0-3) Basophils (%) (Auto) 0 % (0-3) Neutrophils # (Auto) 2.1 x10^3/uL (1.8-7.7) Lymphocytes # (Auto) 1.8 x10^3/uL (1.0-4.8) Monocytes # (Auto) 0.4 x10^3/uL (0.0-1.1) Eosinophils # (Auto) 0.1 x10^3/uL (0.0-0.7) Basophils # (Auto) 0.0 x10^3/uL (0.0-0.2) Sodium Level 141 mmol/L (136-145) Potassium Level 4.0 mmol/L (3.5-5.1) Chloride Level 104 mmol/L (98-107) Carbon Dioxide Level 29 mmol/L (21-32) Anion Gap 8 (6-14) Blood Urea Nitrogen 9 mg/dL (7-20) Creatinine 0.6 mg/dL (0.6-1.0) Estimated GFR (Cockcroft-Gault) 126.2 Glucose Level 71 mg/dL (70-99) Calcium Level 8.4 mg/dL (8.5-10.1) Creatine Kinase 23 U/L (26-192) Laboratory Tests Test 01/08/20 03:19 White Blood Count 4.4 x10^3/uL (4.0-11.0) Red Blood Count 3.53 x10^6/uL (3.50-5.40) Hemoglobin 11.0 g/dL (12.0-15.5) Hematocrit 32.1 % (36.0-47.0) Mean Corpuscular Volume 91 fL (79-100) Mean Corpuscular Hemoglobin 31 pg (25-35) Mean Corpuscular Hemoglobin Concent 34 g/dL (31-37) Red Cell Distribution Width 13.1 % (11.5-14.5) Platelet Count 154 x10^3/uL (140-400) Neutrophils (%) (Auto) 49 % (31-73) Lymphocytes (%) (Auto) 41 % (24-48) Monocytes (%) (Auto) 9 % (0-9) Eosinophils (%) (Auto) 1 % (0-3) Basophils (%) (Auto) 0 % (0-3) Neutrophils # (Auto) 2.1 x10^3/uL (1.8-7.7) Lymphocytes # (Auto) 1.8 x10^3/uL (1.0-4.8) Monocytes # (Auto) 0.4 x10^3/uL (0.0-1.1) Eosinophils # (Auto) 0.1 x10^3/uL (0.0-0.7) Basophils # (Auto) 0.0 x10^3/uL (0.0-0.2) Sodium Level 141 mmol/L (136-145) Potassium Level 4.0 mmol/L (3.5-5.1) Chloride Level 104 mmol/L (98-107) Carbon Dioxide Level 29 mmol/L (21-32) Anion Gap 8 (6-14) Blood Urea Nitrogen 9 mg/dL (7-20) Creatinine 0.6 mg/dL (0.6-1.0) Estimated GFR (Cockcroft-Gault) 126.2 Glucose Level 71 mg/dL (70-99) Calcium Level 8.4 mg/dL (8.5-10.1) Creatine Kinase 23 U/L (26-192) Microbiology 01/02/20 Blood Culture - Final, Complete NO GROWTH AFTER 5 DAYS 12/31/19 Gram Stain - Final, Complete 12/31/19 Aerobic and Anaerobic Culture - Final, Complete 12/31/19 Antimicrobic Susceptibility - Final, Complete Medications Current Medications Sodium Chloride 1,000 ml @ 1,000 mls/hr Q1H IV Last administered on 12/26/19at 14:52; Start 12/26/19 at 14:44; Stop 12/26/19 at 15:43; Status DC Acetaminophen (Tylenol) 1,000 mg 1X ONCE PO Last administered on 12/26/19at 14:52; Start 12/26/19 at 14:45; Stop 12/26/19 at 14:52; Status DC Fentanyl Citrate (Fentanyl 2ml Vial) 50 mcg 1X ONCE IVP Last administered on 12/26/19at 14:51; Start 12/26/19 at 14:45; Stop 12/26/19 at 14:52; Status DC Sodium Chloride 1,000 ml @ 1,000 mls/hr 1X ONCE IV Last administered on 12/26/19at 16:16; Start 12/26/19 at 15:30; Stop 12/26/19 at 16:29; Status DC Piperacillin Sod/ Tazobactam Sod 3.375 gm/Sodium Chloride 50 ml @ 100 mls/hr 1X ONCE IV Last administered on 12/26/19at 16:15; Start 12/26/19 at 16:15; Stop 12/27/19 at 10:20; Status DC Diphenhydramine HCl (Benadryl) 25 mg 1X ONCE IVP Last administered on 12/26/19at 16:16; Start 12/26/19 at 16:15; Stop 12/26/19 at 16:16; Status DC Vancomycin HCl (Vanco Per Pharmacy) 1 each PRN DAILY PRN MC SEE COMMENTS Last administered on 12/29/19at 12:34; Start 12/26/19 at 16:15; Stop 12/29/19 at 12:43; Status DC Vancomycin HCl 1.75 gm/Sodium Chloride 500 ml @ 250 mls/hr 1X ONCE IV Last administered on 12/26/19at 16:59; Start 12/26/19 at 17:00; Stop 12/26/19 at 18:59; Status DC Fentanyl Citrate (Fentanyl 2ml Vial) 50 mcg 1X ONCE IVP Last administered on 12/26/19at 16:59; Start 12/26/19 at 16:45; Stop 12/26/19 at 16:46; Status DC Vancomycin HCl 1 gm/Sodium Chloride 250 ml @ 250 mls/hr Q8H IV Last administered on 12/27/19at 18:09; Start 12/27/19 at 01:00; Stop 12/27/19 at 20:25; Status DC Vancomycin HCl (Vancomycin Trough Level) 1 each 1X ONCE MC Last administered on 12/27/19at 16:30; Start 12/27/19 at 16:30; Stop 12/27/19 at 16:31; Status DC Fentanyl Citrate (Fentanyl 2ml Vial) 50 mcg PRN Q2HR PRN IVP PAIN 1st choice Last administered on 01/04/20at 11:00; Start 12/26/19 at 18:45 Ondansetron HCl (Zofran) 4 mg PRN Q6HRS PRN IVP NAUSEA/VOMITING 1ST CHOICE Last administered on 01/08/20at 14:03; Start 12/26/19 at 18:45 Prochlorperazine Edisylate (Compazine) 10 mg PRN Q8HRS PRN IM NAUSEA/VOMITING Last administered on 12/28/19at 12:28; Start 12/26/19 at 18:45; Stop 12/29/19 at 14:52; Status DC Acetaminophen (Tylenol) 650 mg PRN Q6HRS PRN PEG MILD PAIN / TEMP > 100.3'F Last administered on 12/27/19at 11:50; Start 12/26/19 at 18:45 Cefazolin Sodium/ Dextrose 50 ml @ 100 mls/hr Q8HRS IV ; Start 12/27/19 at 11:00; Status Cancel Cefazolin Sodium/ Dextrose 50 ml @ 100 mls/hr Q8HRS IV Last administered on 12/29/19at 05:55; Start 12/27/19 at 12:00; Stop 12/29/19 at 12:38; Status DC Amino Acids/ Glycerin/ Electrolytes 1,000 ml @ 75 mls/hr [id number] IV Last administered on 01/07/20at 23:55; Start 12/27/19 at 11:30 Vancomycin HCl 1.25 gm/Sodium Chloride 250 ml @ 250 mls/hr Q8H IV Last administered on 12/29/19at 02:00; Start 12/28/19 at 02:00; Stop 12/29/19 at 10:05; Status DC Vancomycin HCl (Vancomycin Trough Level) 1 each 1X ONCE MC Last administered on 12/29/19at 09:30; Start 12/29/19 at 09:30; Stop 12/29/19 at 09:31; Status DC Iohexol (Omnipaque 240 Mg/ml) 50 ml STK-MED ONCE .ROUTE ; Start 12/28/19 at 11:26; Stop 12/28/19 at 11:26; Status DC Midazolam HCl (Versed) 2 mg STK-MED ONCE .ROUTE ; Start 12/28/19 at 12:21; Stop 12/28/19 at 12:22; Status DC Fentanyl Citrate (Fentanyl 2ml Vial) 100 mcg STK-MED ONCE .ROUTE ; Start 12/28/19 at 12:21; Stop 12/28/19 at 12:22; Status DC Potassium Chloride/Water 100 ml @ 100 mls/hr Q1H IV Last administered on 12/28/19at 18:41; Start 12/28/19 at 13:00; Stop 12/28/19 at 14:59; Status DC Lidocaine HCl (Buffered Lidocaine 1%) 3 ml 1X ONCE IJ Last administered on 12/28/19at 12:50; Start 12/28/19 at 13:00; Stop 12/28/19 at 13:01; Status DC Midazolam HCl (Versed) 2 mg 1X ONCE IV Last administered on 12/28/19at 12:45; Start 12/28/19 at 13:00; Stop 12/28/19 at 13:01; Status DC Iohexol (Omnipaque 240 Mg/ml) 50 ml 1X ONCE IJ Last administered on 12/28/19at 12:52; Start 12/28/19 at 13:00; Stop 12/28/19 at 13:01; Status DC Lidocaine HCl (Buffered Lidocaine 1%) 3 ml STK-MED ONCE .ROUTE ; Start 12/28/19 at 12:54; Stop 12/28/19 at 12:55; Status DC Fentanyl Citrate (Fentanyl 2ml Vial) 100 mcg 1X ONCE IV Last administered on 12/28/19at 12:50; Start 12/28/19 at 13:15; Stop 12/28/19 at 13:16; Status DC Vancomycin HCl 1.25 gm/Sodium Chloride 250 ml @ 250 mls/hr Q6H IV ; Start 12/29/19 at 10:00; Status Cancel Vancomycin HCl 1.25 gm/Sodium Chloride 250 ml @ 250 mls/hr Q6H IV ; Start 12/29/19 at 10:08; Status Cancel Vancomycin HCl 1.25 gm/Sodium Chloride 250 ml @ 250 mls/hr Q6H IV Last administered on 12/29/19at 10:48; Start 12/29/19 at 10:00; Stop 12/29/19 at 12:41; Status DC Vancomycin HCl 1.75 gm/Sodium Chloride 500 ml @ 250 mls/hr Q8H IV ; Start 12/29/19 at 19:00; Stop 12/29/19 at 12:40; Status DC Vancomycin HCl (Vancomycin Trough Level) 1 each 1X ONCE MC ; Start 12/30/19 at 18:30; Stop 12/30/19 at 18:31; Status Cancel Daptomycin 440 mg/ Sodium Chloride 50 ml @ 100 mls/hr Q24H IV Last administered on 01/08/20at 08:22; Start 12/29/19 at 13:00 Prochlorperazine Edisylate (Compazine) 10 mg PRN Q8HRS PRN IVP NAUSEA/VOMITING 2ND CHOICE Last administered on 01/03/20at 18:07; Start 12/29/19 at 15:00 Lidocaine/ Epinephrine (LIDOCAINE 1%-EPI 1:100,000 Multi-Dose) 20 ml STK-MED ONCE .ROUTE ; Start 12/31/19 at 13:28; Stop 12/31/19 at 13:28; Status DC Midazolam HCl (Versed) 2 mg STK-MED ONCE .ROUTE ; Start 12/31/19 at 14:03; Stop 12/31/19 at 14:04; Status DC Fentanyl Citrate (Fentanyl 2ml Vial) 100 mcg STK-MED ONCE .ROUTE ; Start 12/31/19 at 14:04; Stop 12/31/19 at 14:04; Status DC Midazolam HCl (Versed) 2 mg 1X ONCE IV Last administered on 12/31/19at 14:15; Start 12/31/19 at 14:15; Stop 12/31/19 at 14:19; Status DC Fentanyl Citrate (Fentanyl 2ml Vial) 100 mcg 1X ONCE IV Last administered on 12/31/19at 14:15; Start 12/31/19 at 14:15; Stop 12/31/19 at 14:19; Status DC Lidocaine/ Epinephrine (LIDOCAINE 1%-EPI 1:100,000 Multi-Dose) 20 ml 1X ONCE INJ Last administered on 12/31/19at 14:15; Start 12/31/19 at 14:15; Stop 12/31/19 at 14:19; Status DC Fentanyl Citrate (Fentanyl 2ml Vial) 50 mcg 1X ONCE IVP Last administered on 12/31/19at 17:45; Start 12/31/19 at 17:45; Stop 12/31/19 at 17:46; Status DC Lidocaine HCl (Viscous Lidocaine) 15 ml STK-MED ONCE .ROUTE ; Start 01/01/20 at 11:43; Stop 01/01/20 at 11:43; Status DC Lidocaine HCl (Xylocaine 2% Topical 30gm Tube) 30 joy STK-MED ONCE TP ; Start 01/01/20 at 11:43; Stop 01/01/20 at 11:43; Status DC Benzocaine (Hurricaine One) 1 spray STK-MED ONCE .ROUTE ; Start 01/01/20 at 11:43; Stop 01/01/20 at 11:43; Status DC Propofol (Diprivan) 200 mg STK-MED ONCE IV ; Start 01/01/20 at 13:43; Stop 01/01/20 at 13:44; Status DC Ringer's Solution 1,000 ml @ 50 mls/hr Q20H IV ; Start 01/01/20 at 14:14; Stop 01/02/20 at 02:13; Status DC Phytonadione (Vitamin K Ampule) 10 mg 1X ONCE SQ Last administered on 01/02/20at 16:22; Start 01/02/20 at 15:30; Stop 01/02/20 at 15:31; Status DC Morphine Sulfate (Morphine Sulfate) 4 mg PRN Q2HR PRN IV PAIN Last administered on 01/08/20at 14:04; Start 01/04/20 at 12:00 Diphenhydramine HCl (Benadryl) 25 mg PRN Q6HRS PRN IVP ITCHING Last administer ed on 01/08/20at 14:46; Start 01/05/20 at 09:45 Prochlorperazine Edisylate (Compazine) 10 mg 1X ONCE IM Last administered on 01/05/20at 10:11; Start 01/05/20 at 10:15; Stop 01/05/20 at 10:16; Status DC Morphine Sulfate (Morphine Sulfate) 4 mg 1X ONCE IV ; Start 01/05/20 at 10:15; Stop 01/05/20 at 10:14; Status DC Morphine Sulfate (Morphine Sulfate) 4 mg 1X ONCE IM Last administered on 01/05/20at 10:16; Start 01/05/20 at 10:15; Stop 01/05/20 at 10:16; Status DC Morphine Sulfate (Morphine Sulfate) 4 mg 1X ONCE IM Last administered on 01/05/20at 14:27; Start 01/05/20 at 14:15; Stop 01/05/20 at 14:16; Status DC Morphine Sulfate (Morphine Sulfate) 4 mg 1X ONCE IM Last administered on 01/05/20at 17:45; Start 01/05/20 at 16:45; Stop 01/05/20 at 16:46; Status DC Prochlorperazine Edisylate (Compazine) 10 mg 1X ONCE IM Last administered on 01/05/20at 17:45; Start 01/05/20 at 16:45; Stop 01/05/20 at 16:46; Status DC Morphine Sulfate (Morphine Sulfate) 4 mg 1X ONCE IM Last administered on 01/05/20at 21:58; Start 01/05/20 at 20:00; Stop 01/05/20 at 20:12; Status DC Prochlorperazine Edisylate (Compazine) 10 mg 1X ONCE IM ; Start 01/05/20 at 20:00; Stop 01/05/20 at 20:12; Status DC Sodium Chloride 1,000 ml @ 1,000 mls/hr 1X ONCE IV Last administered on 01/05at 11:58; Start 01/06/20 at 11:00; Stop 01/06/20 at 11:59; Status DC Info (Tpn Per Pharmacy) 1 each PRN DAILY PRN MC SEE COMMENTS; Start 01/06/20 at 11:00; Stop 01/06/20 at 11:11; Status DC Sodium Chloride 1,000 ml @ 1,000 mls/hr 1X ONCE IV Last administered on 01/07/20at 14:33; Start 01/07/20 at 14:15; Stop 01/07/20 at 15:14; Status DC Midazolam HCl (Versed) 2 mg STK-MED ONCE .ROUTE ; Start 01/08/20 at 14:27; Stop 01/08/20 at 14:27; Status DC Fentanyl Citrate (Fentanyl 2ml Vial) 100 mcg STK-MED ONCE .ROUTE ; Start 01/08/20 at 14:27; Stop 01/08/20 at 14:28; Status DC Midazolam HCl (Versed) 2 mg 1X ONCE IV Last administered on 01/08/20at 15:30; Start 01/08/20 at 15:00; Stop 01/08/20 at 15:01; Status DC Fentanyl Citrate (Fentanyl 2ml Vial) 100 mcg 1X ONCE IV Last administered on 01/08/20at 15:31; Start 01/08/20 at 15:00; Stop 01/08/20 at 15:01; Status DC Lidocaine/ Epinephrine (LIDOCAINE 1%-EPI 1:100,000 Multi-Dose) 7 ml 1X ONCE INJ Last administered on 01/08/20at 15:30; Start 01/08/20 at 15:00; Stop 01/08/20 at 15:01; Status DC Active Scripts Active [Tpn Per Pharmacy] 1 EACH Each 1 Each MC PRN DAILY PRN 30 Days Tpn Electrolytes Vial (Sodium/K+/Mag/Ca/Chlor/Acetate) 20 Ml Vial 20 Ml IV DAILY06 30 Days Metoclopramide Hcl 5 Mg/1 Ml Vial 10 Mg IVP PRN Q6HRS PRN 14 Days [Pantoprazole Iv Push] 40 MG Vial 40 Mg IVP BIDAC 30 Days Ondansetron Hcl 4 Mg/2 Ml Vial (Ondansetron Hcl/Pf) 4 Mg/2 Ml Vial 4 Mg IVP PRN Q6HRS PRN 30 Days Prochlorperazine Edisylate 10 Mg/2 Ml Vial 10 Mg IV PRN Q6HRS PRN 14 Days Milk Of Magnesia (Magnesium Hydroxide) 400 Mg/5 Ml Oral.susp 2,400 Mg JT DAILY 30 Days Enemeez (Docusate Sodium) 283 Mg/5 Ml Enema 283 Mg CO PRN DAILY PRN 30 Days Bisacodyl 10 Mg Supp.rect 10 Mg CO PRN DAILY PRN 30 Days Nystatin 100,000 Unit/1 Ml Oral.susp 5 Ml SWSW [id number] 10 Days Hydrocodone-Apap 7.5-325/15 Soln (Hydrocodone Bit/Acetaminophen) 15 Ml Solution 15 Ml JT PRN Q6HRS PRN Reported Metoprolol Tartrate 50 Mg Tablet 1 Tab PO BID Advair Hfa 230-21 Mcg Inhaler (Fluticasone/Salmeterol) 12 Gm Hfa.aer.ad 1 Inh IH BID Dicyclomine Hcl 20 Mg Tablet 20 Mg GT PRN QID PRN Olopatadine HCl 5 Ml Drops 0.1 % OP PRN DAILY PRN Promethazine Hcl 12.5 Mg Tablet 25 Mg GT Q6H PRN Trazodone Hcl 50 Mg Tablet 50 Mg GT HS Coq-10 (Ubidecarenone) 100 Mg Capsule 200 Mg GT DAILY Vitamin D3 (Cholecalciferol (Vitamin D3)) 4,000 Unit Capsule 2,000 Unit PO HS Xyzal (Levocetirizine Dihydrochloride) 5 Mg Tablet 5 Mg GT HS Proair Hfa (Albuterol Sulfate) 8.5 Gm Hfa.aer.ad 2 Puff IH PRN Q4-6HRS PRN 21 Days Ipratropium [place] 30 Ml [place] 1 [place] NS DAILY Duoneb 0.5-3(2.5) Mg/3 Ml (Albuterol/Ipratropium) 3 Ml Ampul.neb 3 Ml NEB PRN QID PRN Montelukast Sodium Tablet (Montelukast Sodium) 10 Mg Tablet 10 Mg GT DAILY PRN Multi Vitamin Daily (Multivitamin) 1 Each Tablet 1 Each GT DAILY Vitals/I & O Vital Sign - Last 24 Hours 01/07/20 01/07/20 01/07/20 01/07/20 16:38 18:19 19:00 20:00 Temp 98.0 98.0 Pulse 66 Resp 18 B/P (MAP) 102/64 (77) Pulse Ox 97 O2 Delivery Room Air Room Air Room Air Room Air 01/07/20 01/07/20 01/07/20 01/08/20 20:10 20:40 23:00 01:59 Temp 98.0 98.0 Pulse 82 Resp 16 16 18 16 B/P (MAP) 98/60 (73) Pulse Ox 98 O2 Delivery Room Air Room Air Room Air Room Air 01/08/20 01/08/20 01/08/20 01/08/20 02:30 03:00 07:00 07:07 Temp 97.7 97.9 97.7 97.9 Pulse 85 74 Resp 16 18 18 14 B/P (MAP) 110/52 (71) 88/40 (56) Pulse Ox 98 92 O2 Delivery Room Air Room Air Room Air Room Air 01/08/20 01/08/20 01/08/20 01/08/20 07:57 08:45 10:22 11:00 Temp 98.2 98.2 Pulse 67 Resp 16 18 B/P (MAP) 95/52 (66) Pulse Ox 97 O2 Delivery Room Air Room Air Room Air Room Air 01/08/20 01/08/20 01/08/20 01/08/20 11:15 14:04 14:35 15:31 Resp 19 19 Pulse Ox 92 98 100 O2 Delivery Room Air Room Air Room Air Nasal Cannula O2 Flow Rate 2.0 01/08/20 15:36 Pulse 91 Resp 19 Pulse Ox 100 O2 Delivery Nasal Cannula O2 Flow Rate 2.0 Intake and Output 01/07/20 01/07/20 01/08/20 15:00 23:00 07:00 Intake Total 150 ml Output Total 2250 ml Balance -2100 ml Justicifation of Admission Dx: Justifications for Admission: Justification of Admission Dx: Yes Sepsis: Bacteremia ALE JONES MD Jan 08, 2020 16:04
--- NOTE | 2020-01-08 16:12 | RAD ---
Procedure: Ultrasound and fluoroscopically guided placement of right internal jugular power port.. 01/08/2020 2:08 PM Clinical Indication: Port a cath replacement Sedation: Conscious sedation was administered for 30 minutes. The patient was monitored by a qualified independent observer throughout the time of sedation. Please refer to the medical record for exact doses of medications utilized to achieve moderate sedation. Fluoroscopy time: 2.2 minutes Dose area product: 2Gycm2 Consent: The procedure was explained in its entirety to the patient or the patients designated agricultural sales representative by a member of the treatment team, including a discussion of the risks, benefits and commonly accepted alternatives to the procedure, as well as the expected consequences of no therapy whatsoever. Discussion of the risks included, but was not limited to, those that are most frequent and those that are rare but possibly severe or life-threatening, as well as the possibility of unforeseen complications. Technique and Findings: All elements of maximal sterile barrier technique including the use of a cap, mask, sterile gown, sterile gloves, large sterile sheet, appropriate hand hygiene, and 2% chlorhexidine for cutaneous antisepsis (or acceptable alternative antiseptic per current guidelines) were followed for this procedure. Following informed consent, and a timeout procedure, the patient was prepped and draped in the usual sterile fashion. Ultrasound interrogation of the right neck revealed patency and compressibility of the right internal jugular vein. A 21-gauge micropuncture was then used to gain access to this vein under ultrasound guidance. A hard copy ultrasound image was recorded. The needle was exchanged over a wire for a sheath. A 1 inch incision was made several centimeters inferior to the venotomy site. A catheter was tunneled from this site dermatotomy site in the neck. Catheter was advanced through peel-away sheath such that its tip was in the proximal right atrium with the patient supine. The catheter was trimmed to length and connected to the port reservoir. The port was found to flush and aspirate normally. The wound was closed in layers using 2-0 Vicryl and 4-0 Vicryl suture. Sterile dressings were applied. Impression: Successful ultrasound and fluoroscopically guided placement of a right internal jugular PowerPort
[2020-01-08] MEDS: AMINO AC 3%/ELECTROLYTE/GLYCER 1,000 ML IV SCH (16:46)
[2020-01-08] MEDS ORDERED: TPN PER PHARMACY MC PRN (17:45)
[2020-01-09 03:00] VITALS: BP 91/55
[2020-01-09] MEDS: AMINO AC 3%/ELECTROLYTE/GLYCER 1,000 ML IV SCH (04:50)
[2020-01-09 07:00] VITALS: BP 95/63
[2020-01-09] MEDS: MORPHINE SULFATE 4 MG/ML VIAL. IV PRN ×3 (07:21→13:40)
[2020-01-09 07:25] LABS: BASO % 0 % (0-3); EOS # 0.1 x10^3/uL (0.0-0.7); EOS % 1 % (0-3); HEMATOCRIT 30.8 % (36.0-47.0); HEMOGLOBIN 10.5 g/dL (12.0-15.5); LYMPH # 1.7 x10^3/uL (1.0-4.8); LYMPH % 34 % (24-48); MEAN CORPUSCULAR HEMOGLOBIN 31 pg (25-35); MEAN CORPUSCULAR HGB CONC 34 g/dL (31-37); MEAN CORPUSCULAR VOLUME 91 fL (79-100); MONO # 0.4 x10^3/uL (0.0-1.1); MONO % 8 % (0-9); NEUT # 2.8 x10^3/uL (1.8-7.7); NEUT % 57 % (31-73); PLATELET COUNT 157 x10^3/uL (140-400); RED BLOOD COUNT 3.38 x10^6/uL (3.50-5.40); RED CELL DISTRIBUTION WIDTH 13.6 % (11.5-14.5); WHITE BLOOD COUNT 4.9 x10^3/uL (4.0-11.0)
[2020-01-09 07:58] LABS: CALCIUM 9.1 mg/dL (8.5-10.1); CREATININE 0.5 mg/dL (0.6-1.0); GFR 155.7; POTASSIUM 3.8 mmol/L (3.5-5.1)
[2020-01-09] MEDS: ONDANSETRON PF 4 MG/2 ML VIAL. IVP PRN (09:35)
[2020-01-09] MEDS: DAPTOmycin (GENERIC) IVPB 440 MG in IV NORMAL SALINE 50ML 50 ML IV SCH (09:55)
--- NOTE | 2020-01-09 10:26 | NUR ---
NIXON following. Discussed with RN, pt had port replaced yesterday, will start TPN through port today. Pt needing IV abx, cannot do IV abx through port if TPN at home is continuous. NIXON spoke with [facility], trying to determine if pt was doing continuous infusion before admission. Pt has a midline, could use this for IV abx. NIXON will continue to follow. Addendum: 01/09/20 at 1206 by ELVI ALICEA NIXON faxed daptomycin script and clinicals to [facility] to check benefits. Addendum: 01/09/20 at 1234 by ELVI ALICEA NIXON spoke with Leyla at [facility] - pt is covered at 100%. Arvind funes do a teach for pt today in preparation for discharge home. NIXON will continue to follow. RN notified.
--- NOTE | 2020-01-09 10:48 | PDOC ---
Infectious Disease Note Subjective Subjective Better overall Still some chronic nausea, no vomiting or diarrhea No fevers/chills Vital Sign Vital Signs Vital Signs Date Time Temp Pulse Resp B/P (MAP) Pulse Ox O2 Delivery O2 Flow Rate FiO2 01/09/20 10:02 16 Room Air 01/09/20 07:00 97.9 80 95/63 (74) 98 97.9 01/08/20 15:36 2.0 Physical Exam PHYSICAL EXAM GENERAL: Propped up in bed alert, in NAD HEENT: [place]. Oral cavity pink, dry. Some bacterial overgrowth on the tongue NECK: Supple LUNGS: Clear. HEART: S1, S2 regular. ABDOMEN: Bowel sounds present, soft and nontender. J-tube clean EXTREMITIES: No edema or cyanosis. SKIN: without rash. NEUROLOGICAL: Alert oriented, x3 no focal neurologic deficit. Right-sided Port-A-Cath clean RUE-midline clean Labs Lab Laboratory Tests Test 01/09/20 03:20 White Blood Count 4.9 x10^3/uL (4.0-11.0) Red Blood Count 3.38 x10^6/uL (3.50-5.40) Hemoglobin 10.5 g/dL (12.0-15.5) Hematocrit 30.8 % (36.0-47.0) Mean Corpuscular Volume 91 fL (79-100) Mean Corpuscular Hemoglobin 31 pg (25-35) Mean Corpuscular Hemoglobin Concent 34 g/dL (31-37) Red Cell Distribution Width 13.6 % (11.5-14.5) Platelet Count 157 x10^3/uL (140-400) Neutrophils (%) (Auto) 57 % (31-73) Lymphocytes (%) (Auto) 34 % (24-48) Monocytes (%) (Auto) 8 % (0-9) Eosinophils (%) (Auto) 1 % (0-3) Basophils (%) (Auto) 0 % (0-3) Neutrophils # (Auto) 2.8 x10^3/uL (1.8-7.7) Lymphocytes # (Auto) 1.7 x10^3/uL (1.0-4.8) Monocytes # (Auto) 0.4 x10^3/uL (0.0-1.1) Eosinophils # (Auto) 0.1 x10^3/uL (0.0-0.7) Basophils # (Auto) 0.0 x10^3/uL (0.0-0.2) Sodium Level 141 mmol/L (136-145) Potassium Level 3.8 mmol/L (3.5-5.1) Chloride Level 105 mmol/L (98-107) Carbon Dioxide Level 27 mmol/L (21-32) Anion Gap 9 (6-14) Blood Urea Nitrogen 10 mg/dL (7-20) Creatinine 0.5 mg/dL (0.6-1.0) Estimated GFR (Cockcroft-Gault) 155.7 Glucose Level 69 mg/dL (70-99) Calcium Level 9.1 mg/dL (8.5-10.1) Micro Microbiology 01/02/20 Blood Culture - Final, Complete NO GROWTH AFTER 5 DAYS 12/31/19 Gram Stain - Final, Complete 12/31/19 Aerobic and Anaerobic Culture - Final, Complete 12/31/19 Antimicrobic Susceptibility - Final, Complete Objective Assessment Fever - better Pancytopenia 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 Recently placed on 11/25. -Status post Port-A-Cath removal 12/31/2019. Cath tip positive for MRSA and MSSA Gastroparesis, on total parenteral nutrition at home. s/p G-tube exchange and j-tube injection, 12/27 S/p Port placement 01/07 Plan Plan of Care Continue daptomycin will need IV abx through 01/14 CK 23 from 01/07 No need for labs at home OK to d/c home and f/u in ID office 01/21 at 14:15 KELLEN HODGSON MD Jan 09, 2020 10:48
[2020-01-09] MEDS: diphenhydrAMINE 50 MG/ML VIAL IVP PRN ×2 (10:53→14:37)
[2020-01-09 11:00] VITALS: BP 94/61
--- NOTE | 2020-01-09 14:51 | PDOC ---
PROGRESS NOTES Date of Service: DATE: 01/09/20 TIME: 14:48 Chief Complaint Chief Complaint Sepsis 3/4 blood culture bottles positive for gram + cocci in clusters port infection, removed, needs replaced for her TPN at home, malnutrition baseline Hypotension Severe idiopathic gastroparesis Blood culture positive with Staphylococcus, 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 History of Present Illness History of Present Illness 01/08 Patient feels well. She states at home she was managing her own TPN, and using her G-tube and J-tube for "venting" and medications respectively. She has a home health nurse who can administer the remainder of her IV antibiotics, through 01/14. 01/07 Patient without complaints. Port-A-Cath replacement today. 01/06 Patient resting comfortably in bed. Per patient's nurse, still remains slightly hypotensive, but afebrile with MAP >65. Patient denies any complaints, anxious to go home. 01/05, midline IV placed, will try TPN tonight, port to be replaced pain better, + weakness, hypotensive this AM, will bolus NS one liter, probably dry 01/04, IV lost, will try midline, discussed with ID cont Dapto plan PORT placement mondya 12/31. LAVELL Vitals Vitals Vital Signs Date Time Temp Pulse Resp B/P (MAP) Pulse Ox O2 Delivery O2 Flow Rate FiO2 01/09/20 14:10 16 Room Air 01/09/20 11:00 98.1 85 94/61 (72) 98 98.1 01/08/20 15:36 2.0 Physical Exam Physical Exam GENERAL: Propped up in bed alert, in NAD HEENT: [place]. Oral cavity pink, dry. Some bacterial overgrowth on the tongue NECK: Supple LUNGS: Clear. HEART: S1, S2 regular. ABDOMEN: Bowel sounds present, soft and nontender. J-tube clean EXTREMITIES: No edema or cyanosis. SKIN: without rash. NEUROLOGICAL: Alert oriented, x3 no focal neurologic deficit. Right-sided Port-A-Cath clean RUE-midline clean General: Alert, Oriented X3 Heart: Regular rate Lungs: Clear Abdomen: Normal bowel sounds, Soft Extremities: No clubbing, No cyanosis Skin: No rashes Labs LABS Laboratory Tests Test 01/09/20 03:20 White Blood Count 4.9 x10^3/uL (4.0-11.0) Red Blood Count 3.38 x10^6/uL (3.50-5.40) Hemoglobin 10.5 g/dL (12.0-15.5) Hematocrit 30.8 % (36.0-47.0) Mean Corpuscular Volume 91 fL (79-100) Mean Corpuscular Hemoglobin 31 pg (25-35) Mean Corpuscular Hemoglobin Concent 34 g/dL (31-37) Red Cell Distribution Width 13.6 % (11.5-14.5) Platelet Count 157 x10^3/uL (140-400) Neutrophils (%) (Auto) 57 % (31-73) Lymphocytes (%) (Auto) 34 % (24-48) Monocytes (%) (Auto) 8 % (0-9) Eosinophils (%) (Auto) 1 % (0-3) Basophils (%) (Auto) 0 % (0-3) Neutrophils # (Auto) 2.8 x10^3/uL (1.8-7.7) Lymphocytes # (Auto) 1.7 x10^3/uL (1.0-4.8) Monocytes # (Auto) 0.4 x10^3/uL (0.0-1.1) Eosinophils # (Auto) 0.1 x10^3/uL (0.0-0.7) Basophils # (Auto) 0.0 x10^3/uL (0.0-0.2) Sodium Level 141 mmol/L (136-145) Potassium Level 3.8 mmol/L (3.5-5.1) Chloride Level 105 mmol/L (98-107) Carbon Dioxide Level 27 mmol/L (21-32) Anion Gap 9 (6-14) Blood Urea Nitrogen 10 mg/dL (7-20) Creatinine 0.5 mg/dL (0.6-1.0) Estimated GFR (Cockcroft-Gault) 155.7 Glucose Level 69 mg/dL (70-99) Calcium Level 9.1 mg/dL (8.5-10.1) Assessment and Plan Assessmemt and Plan Problems Medical Problems: (1) Fever Status: Acute (2) Infection due to Port-A-Cath Status: Acute Comment Review of Relevant I have reviewed the following items lalo (where applicable) has been applied. Labs Laboratory Tests Test 01/08/20 03:19 01/09/20 03:20 White Blood Count 4.4 x10^3/uL (4.0-11.0) 4.9 x10^3/uL (4.0-11.0) Red Blood Count 3.53 x10^6/uL (3.50-5.40) 3.38 x10^6/uL (3.50-5.40) Hemoglobin 11.0 g/dL (12.0-15.5) 10.5 g/dL (12.0-15.5) Hematocrit 32.1 % (36.0-47.0) 30.8 % (36.0-47.0) Mean Corpuscular Volume 91 fL (79-100) 91 fL (79-100) Mean Corpuscular Hemoglobin 31 pg (25-35) 31 pg (25-35) Mean Corpuscular Hemoglobin Concent 34 g/dL (31-37) 34 g/dL (31-37) Red Cell Distribution Width 13.1 % (11.5-14.5) 13.6 % (11.5-14.5) Platelet Count 154 x10^3/uL (140-400) 157 x10^3/uL (140-400) Neutrophils (%) (Auto) 49 % (31-73) 57 % (31-73) Lymphocytes (%) (Auto) 41 % (24-48) 34 % (24-48) Monocytes (%) (Auto) 9 % (0-9) 8 % (0-9) Eosinophils (%) (Auto) 1 % (0-3) 1 % (0-3) Basophils (%) (Auto) 0 % (0-3) 0 % (0-3) Neutrophils # (Auto) 2.1 x10^3/uL (1.8-7.7) 2.8 x10^3/uL (1.8-7.7) Lymphocytes # (Auto) 1.8 x10^3/uL (1.0-4.8) 1.7 x10^3/uL (1.0-4.8) Monocytes # (Auto) 0.4 x10^3/uL (0.0-1.1) 0.4 x10^3/uL (0.0-1.1) Eosinophils # (Auto) 0.1 x10^3/uL (0.0-0.7) 0.1 x10^3/uL (0.0-0.7) Basophils # (Auto) 0.0 x10^3/uL (0.0-0.2) 0.0 x10^3/uL (0.0-0.2) Sodium Level 141 mmol/L (136-145) 141 mmol/L (136-145) Potassium Level 4.0 mmol/L (3.5-5.1) 3.8 mmol/L (3.5-5.1) Chloride Level 104 mmol/L (98-107) 105 mmol/L (98-107) Carbon Dioxide Level 29 mmol/L (21-32) 27 mmol/L (21-32) Anion Gap 8 (6-14) 9 (6-14) Blood Urea Nitrogen 9 mg/dL (7-20) 10 mg/dL (7-20) Creatinine 0.6 mg/dL (0.6-1.0) 0.5 mg/dL (0.6-1.0) Estimated GFR (Cockcroft-Gault) 126.2 155.7 Glucose Level 71 mg/dL (70-99) 69 mg/dL (70-99) Calcium Level 8.4 mg/dL (8.5-10.1) 9.1 mg/dL (8.5-10.1) Creatine Kinase 23 U/L (26-192) Laboratory Tests Test 01/09/20 03:20 White Blood Count 4.9 x10^3/uL (4.0-11.0) Red Blood Count 3.38 x10^6/uL (3.50-5.40) Hemoglobin 10.5 g/dL (12.0-15.5) Hematocrit 30.8 % (36.0-47.0) Mean Corpuscular Volume 91 fL (79-100) Mean Corpuscular Hemoglobin 31 pg (25-35) Mean Corpuscular Hemoglobin Concent 34 g/dL (31-37) Red Cell Distribution Width 13.6 % (11.5-14.5) Platelet Count 157 x10^3/uL (140-400) Neutrophils (%) (Auto) 57 % (31-73) Lymphocytes (%) (Auto) 34 % (24-48) Monocytes (%) (Auto) 8 % (0-9) Eosinophils (%) (Auto) 1 % (0-3) Basophils (%) (Auto) 0 % (0-3) Neutrophils # (Auto) 2.8 x10^3/uL (1.8-7.7) Lymphocytes # (Auto) 1.7 x10^3/uL (1.0-4.8) Monocytes # (Auto) 0.4 x10^3/uL (0.0-1.1) Eosinophils # (Auto) 0.1 x10^3/uL (0.0-0.7) Basophils # (Auto) 0.0 x10^3/uL (0.0-0.2) Sodium Level 141 mmol/L (136-145) Potassium Level 3.8 mmol/L (3.5-5.1) Chloride Level 105 mmol/L (98-107) Carbon Dioxide Level 27 mmol/L (21-32) Anion Gap 9 (6-14) Blood Urea Nitrogen 10 mg/dL (7-20) Creatinine 0.5 mg/dL (0.6-1.0) Estimated GFR (Cockcroft-Gault) 155.7 Glucose Level 69 mg/dL (70-99) Calcium Level 9.1 mg/dL (8.5-10.1) Microbiology 01/02/20 Blood Culture - Final, Complete NO GROWTH AFTER 5 DAYS 12/31/19 Gram Stain - Final, Complete 12/31/19 Aerobic and Anaerobic Culture - Final, Complete 12/31/19 Antimicrobic Susceptibility - Final, Complete Medications Current Medications Sodium Chloride 1,000 ml @ 1,000 mls/hr Q1H IV Last administered on 12/26/19at 14:52; Start 12/26/19 at 14:44; Stop 12/26/19 at 15:43; Status DC Acetaminophen (Tylenol) 1,000 mg 1X ONCE PO Last administered on 12/26/19at 14:52; Start 12/26/19 at 14:45; Stop 12/26/19 at 14:52; Status DC Fentanyl Citrate (Fentanyl 2ml Vial) 50 mcg 1X ONCE IVP Last administered on 12/26/19at 14:51; Start 12/26/19 at 14:45; Stop 12/26/19 at 14:52; Status DC Sodium Chloride 1,000 ml @ 1,000 mls/hr 1X ONCE IV Last administered on 12/26/19at 16:16; Start 12/26/19 at 15:30; Stop 12/26/19 at 16:29; Status DC Piperacillin Sod/ Tazobactam Sod 3.375 gm/Sodium Chloride 50 ml @ 100 mls/hr 1X ONCE IV Last administered on 12/26/19at 16:15; Start 12/26/19 at 16:15; Stop 12/27/19 at 10:20; Status DC Diphenhydramine HCl (Benadryl) 25 mg 1X ONCE IVP Last administered on 12/26/19at 16:16; Start 12/26/19 at 16:15; Stop 12/26/19 at 16:16; Status DC Vancomycin HCl (Vanco Per Pharmacy) 1 each PRN DAILY PRN MC SEE COMMENTS Last administered on 12/29/19at 12:34; Start 12/26/19 at 16:15; Stop 12/29/19 at 12:43; Status DC Vancomycin HCl 1.75 gm/Sodium Chloride 500 ml @ 250 mls/hr 1X ONCE IV Last administered on 12/26/19at 16:59; Start 12/26/19 at 17:00; Stop 12/26/19 at 18:59; Status DC Fentanyl Citrate (Fentanyl 2ml Vial) 50 mcg 1X ONCE IVP Last administered on 12/26/19at 16:59; Start 12/26/19 at 16:45; Stop 12/26/19 at 16:46; Status DC Vancomycin HCl 1 gm/Sodium Chloride 250 ml @ 250 mls/hr Q8H IV Last administered on 12/27/19at 18:09; Start 12/27/19 at 01:00; Stop 12/27/19 at 20:25; Status DC Vancomycin HCl (Vancomycin Trough Level) 1 each 1X ONCE MC Last administered on 12/27/19at 16:30; Start 12/27/19 at 16:30; Stop 12/27/19 at 16:31; Status DC Fentanyl Citrate (Fentanyl 2ml Vial) 50 mcg PRN Q2HR PRN IVP PAIN 1st choice Last administered on 01/04/20at 11:00; Start 12/26/19 at 18:45 Ondansetron HCl (Zofran) 4 mg PRN Q6HRS PRN IVP NAUSEA/VOMITING 1ST CHOICE Last administered on 01/09/20at 09:35; Start 12/26/19 at 18:45 Prochlorperazine Edisylate (Compazine) 10 mg PRN Q8HRS PRN IM NAUSEA/VOMITING Last administered on 12/28/19at 12:28; Start 12/26/19 at 18:45; Stop 12/29/19 at 14:52; Status DC Acetaminophen (Tylenol) 650 mg PRN Q6HRS PRN PEG MILD PAIN / TEMP > 100.3'F Last administered on 12/27/19at 11:50; Start 12/26/19 at 18:45 Cefazolin Sodium/ Dextrose 50 ml @ 100 mls/hr Q8HRS IV ; Start 12/27/19 at 11:00; Status Cancel Cefazolin Sodium/ Dextrose 50 ml @ 100 mls/hr Q8HRS IV Last administered on 12/29/19at 05:55; Start 12/27/19 at 12:00; Stop 12/29/19 at 12:38; Status DC Amino Acids/ Glycerin/ Electrolytes 1,000 ml @ 75 mls/hr [id number] IV Last administered on 01/09/20at 04:50; Start 12/27/19 at 11:30 Vancomycin HCl 1.25 gm/Sodium Chloride 250 ml @ 250 mls/hr Q8H IV Last administered on 12/29/19at 02:00; Start 12/28/19 at 02:00; Stop 12/29/19 at 10:05; Status DC Vancomycin HCl (Vancomycin Trough Level) 1 each 1X ONCE MC Last administered on 12/29/19at 09:30; Start 12/29/19 at 09:30; Stop 12/29/19 at 09:31; Status DC Iohexol (Omnipaque 240 Mg/ml) 50 ml STK-MED ONCE .ROUTE ; Start 12/28/19 at 11:26; Stop 12/28/19 at 11:26; Status DC Midazolam HCl (Versed) 2 mg STK-MED ONCE .ROUTE ; Start 12/28/19 at 12:21; Stop 12/28/19 at 12:22; Status DC Fentanyl Citrate (Fentanyl 2ml Vial) 100 mcg STK-MED ONCE .ROUTE ; Start 12/28/19 at 12:21; Stop 12/28/19 at 12:22; Status DC Potassium Chloride/Water 100 ml @ 100 mls/hr Q1H IV Last administered on 12/28/19at 18:41; Start 12/28/19 at 13:00; Stop 12/28/19 at 14:59; Status DC Lidocaine HCl (Buffered Lidocaine 1%) 3 ml 1X ONCE IJ Last administered on 12/28/19at 12:50; Start 12/28/19 at 13:00; Stop 12/28/19 at 13:01; Status DC Midazolam HCl (Versed) 2 mg 1X ONCE IV Last administered on 12/28/19at 12:45; Start 12/28/19 at 13:00; Stop 12/28/19 at 13:01; Status DC Iohexol (Omnipaque 240 Mg/ml) 50 ml 1X ONCE IJ Last administered on 12/28/19at 12:52; Start 12/28/19 at 13:00; Stop 12/28/19 at 13:01; Status DC Lidocaine HCl (Buffered Lidocaine 1%) 3 ml STK-MED ONCE .ROUTE ; Start 12/28/19 at 12:54; Stop 12/28/19 at 12:55; Status DC Fentanyl Citrate (Fentanyl 2ml Vial) 100 mcg 1X ONCE IV Last administered on 12/28/19at 12:50; Start 12/28/19 at 13:15; Stop 12/28/19 at 13:16; Status DC Vancomycin HCl 1.25 gm/Sodium Chloride 250 ml @ 250 mls/hr Q6H IV ; Start 12/28 at 10:00; Status Cancel Vancomycin HCl 1.25 gm/Sodium Chloride 250 ml @ 250 mls/hr Q6H IV ; Start 12/29/19 at 10:08; Status Cancel Vancomycin HCl 1.25 gm/Sodium Chloride 250 ml @ 250 mls/hr Q6H IV Last administered on 12/29/19at 10:48; Start 12/29/19 at 10:00; Stop 12/29/19 at 12:41; Status DC Vancomycin HCl 1.75 gm/Sodium Chloride 500 ml @ 250 mls/hr Q8H IV ; Start 12/29/19 at 19:00; Stop 12/29/19 at 12:40; Status DC Vancomycin HCl (Vancomycin Trough Level) 1 each 1X ONCE ; Start 12/30/19 at 18:30; Stop 12/30/19 at 18:31; Status Cancel Daptomycin 440 mg/ Sodium Chloride 50 ml @ 100 mls/hr Q24H IV Last administered on 01/09/20at 09:55; Start 12/29/19 at 13:00 Prochlorperazine Edisylate (Compazine) 10 mg PRN Q8HRS PRN IVP NAUSEA/VOMITING 2ND CHOICE Last administered on 01/03/20at 18:07; Start 12/29/19 at 15:00 Lidocaine/ Epinephrine (LIDOCAINE 1%-EPI 1:100,000 Multi-Dose) 20 ml STK-MED ONCE .ROUTE ; Start 12/31/19 at 13:28; Stop 12/31/19 at 13:28; Status DC Midazolam HCl (Versed) 2 mg STK-MED ONCE .ROUTE ; Start 12/31/19 at 14:03; Stop 12/31/19 at 14:04; Status DC Fentanyl Citrate (Fentanyl 2ml Vial) 100 mcg STK-MED ONCE .ROUTE ; Start 12/31/19 at 14:04; Stop 12/31/19 at 14:04; Status DC Midazolam HCl (Versed) 2 mg 1X ONCE IV Last administered on 12/31/19at 14:15; Start 12/31/19 at 14:15; Stop 12/31/19 at 14:19; Status DC Fentanyl Citrate (Fentanyl 2ml Vial) 100 mcg 1X ONCE IV Last administered on 12/31/19at 14:15; Start 12/31/19 at 14:15; Stop 12/31/19 at 14:19; Status DC Lidocaine/ Epinephrine (LIDOCAINE 1%-EPI 1:100,000 Multi-Dose) 20 ml 1X ONCE INJ Last administered on 12/31/19at 14:15; Start 12/31/19 at 14:15; Stop at 14:19; Status DC Fentanyl Citrate (Fentanyl 2ml Vial) 50 mcg 1X ONCE IVP Last administered on 12/31/19at 17:45; Start 12/31/19 at 17:45; Stop 12/31/19 at 17:46; Status DC Lidocaine HCl (Viscous Lidocaine) 15 ml STK-MED ONCE .ROUTE ; Start 01/01/20 at 11:43; Stop 01/01/20 at 11:43; Status DC Lidocaine HCl (Xylocaine 2% Topical 30gm Tube) 30 joy STK-MED ONCE TP ; Start 01/01/20 at 11:43; Stop 01/01/20 at 11:43; Status DC Benzocaine (Hurricaine One) 1 spray STK-MED ONCE .ROUTE ; Start 01/01/20 at 11:43; Stop 01/01/20 at 11:43; Status DC Propofol (Diprivan) 200 mg STK-MED ONCE IV ; Start 01/01/20 at 13:43; Stop 01/01/20 at 13:44; Status DC Ringer's Solution 1,000 ml @ 50 mls/hr Q20H IV ; Start 01/01/20 at 14:14; Stop 01/02/20 at 02:13; Status DC Phytonadione (Vitamin K Ampule) 10 mg 1X ONCE SQ Last administered on 01/02/20at 16:22; Start 01/02/20 at 15:30; Stop 01/02/20 at 15:31; Status DC Morphine Sulfate (Morphine Sulfate) 4 mg PRN Q2HR PRN IV PAIN Last administered on 01/09/20at 13:40; Start 01/04/20 at 12:00 Diphenhydramine HCl (Benadryl) 25 mg PRN Q6HRS PRN IVP ITCHING Last administered on 01/09/20at 14:37; Start 01/05/20 at 09:45 Prochlorperazine Edisylate (Compazine) 10 mg 1X ONCE IM Last administered on 01/05/20at 10:11; Start 01/05/20 at 10:15; Stop 01/05/20 at 10:16; Status DC Morphine Sulfate (Morphine Sulfate) 4 mg 1X ONCE IV ; Start 01/05/20 at 10:15; Stop 01/05/20 at 10:14; Status DC Morphine Sulfate (Morphine Sulfate) 4 mg 1X ONCE IM Last administered on 01/05/20at 10:16; Start 01/05/20 at 10:15; Stop 01/05/20 at 10:16; Status DC Morphine Sulfate (Morphine Sulfate) 4 mg 1X ONCE IM Last administered on 01/05/20at 14:27; Start 01/05/20 at 14:15; Stop 01/05/20 at 14:16; Status DC Morphine Sulfate (Morphine Sulfate) 4 mg 1X ONCE IM Last administered on 01/05/20at 17:45; Start 01/05/20 at 16:45; Stop 01/05/20 at 16:46; Status DC Prochlorperazine Edisylate (Compazine) 10 mg 1X ONCE IM Last administered on 01/05/20at 17:45; Start 01/05/20 at 16:45; Stop 01/05/20 at 16:46; Status DC Morphine Sulfate (Morphine Sulfate) 4 mg 1X ONCE IM Last administered on 01/05/20at 21:58; Start 01/05/20 at 20:00; Stop 01/05/20 at 20:12; Status DC Prochlorperazine Edisylate (Compazine) 10 mg 1X ONCE IM ; Start 01/05/20 at 20:00; Stop 01/05/20 at 20:12; Status DC Sodium Chloride 1,000 ml @ 1,000 mls/hr 1X ONCE IV Last administered on 01/06/20at 11:58; Start 01/06/20 at 11:00; Stop 01/06/20 at 11:59; Status DC Info (Tpn Per Pharmacy) 1 each PRN DAILY PRN MC SEE COMMENTS; Start 01/06/20 at 11:00; Stop 01/06/20 at 11:11; Status DC Sodium Chloride 1,000 ml @ 1,000 mls/hr 1X ONCE IV Last administered on 01/07/20at 14:33; Start 01/07/20 at 14:15; Stop 01/07/20 at 15:14; Status DC Midazolam HCl (Versed) 2 mg STK-MED ONCE .ROUTE ; Start 01/08/20 at 14:27; Stop 01/08/20 at 14:27; Status DC Fentanyl Citrate (Fentanyl 2ml Vial) 100 mcg STK-MED ONCE .ROUTE ; Start 01/08/20 at 14:27; Stop 01/08/20 at 14:28; Status DC Midazolam HCl (Versed) 2 mg 1X ONCE IV Last administered on 01/08/20at 15:30; Start 01/08/20 at 15:00; Stop 01/08/20 at 15:01; Status DC Fentanyl Citrate (Fentanyl 2ml Vial) 100 mcg 1X ONCE IV Last administered on 01/08/20at 15:31; Start 01/08/20 at 15:00; Stop 01/08/20 at 15:01; Status DC Lidocaine/ Epinephrine (LIDOCAINE 1%-EPI 1:100,000 Multi-Dose) 7 ml 1X ONCE INJ Last administered on 01/08/20at 15:30; Start 01/08/20 at 15:00; Stop 01/08/20 at 15:01; Status DC Info (Tpn Per Pharmacy) 1 each PRN DAILY PRN MC SEE COMMENTS; Start 01/08/20 at 17:45 Active Scripts Active [Tpn Per Pharmacy] 1 EACH Each 1 Each MC PRN DAILY PRN 30 Days Tpn Electrolytes Vial (Sodium/K+/Mag/Ca/Chlor/Acetate) 20 Ml Vial 20 Ml IV DAILY06 30 Days Metoclopramide Hcl 5 Mg/1 Ml Vial 10 Mg IVP PRN Q6HRS PRN 14 Days [Pantoprazole Iv Push] 40 MG Vial 40 Mg IVP BIDAC 30 Days Ondansetron Hcl 4 Mg/2 Ml Vial (Ondansetron Hcl/Pf) 4 Mg/2 Ml Vial 4 Mg IVP PRN Q6HRS PRN 30 Days Prochlorperazine Edisylate 10 Mg/2 Ml Vial 10 Mg IV PRN Q6HRS PRN 14 Days Milk Of Magnesia (Magnesium Hydroxide) 400 Mg/5 Ml Oral.susp 2,400 Mg JT DAILY 30 Days Enemeez (Docusate Sodium) 283 Mg/5 Ml Enema 283 Mg OK PRN DAILY PRN 30 Days Bisacodyl 10 Mg Supp.rect 10 Mg OK PRN DAILY PRN 30 Days Nystatin 100,000 Unit/1 Ml Oral.susp 5 Ml SWSW [id number] 10 Days Hydrocodone-Apap 7.5-325/15 Soln (Hydrocodone Bit/Acetaminophen) 15 Ml Solution 15 Ml JT PRN Q6HRS PRN Reported Metoprolol Tartrate 50 Mg Tablet 1 Tab PO BID Advair Hfa 230-21 Mcg Inhaler (Fluticasone/Salmeterol) 12 Gm Hfa.aer.ad 1 Inh IH BID Dicyclomine Hcl 20 Mg Tablet 20 Mg GT PRN QID PRN Olopatadine HCl 5 Ml Drops 0.1 % OP PRN DAILY PRN Promethazine Hcl 12.5 Mg Tablet 25 Mg GT Q6H PRN Trazodone Hcl 50 Mg Tablet 50 Mg GT HS Coq-10 (Ubidecarenone) 100 Mg Capsule 200 Mg GT DAILY Vitamin D3 (Cholecalciferol (Vitamin D3)) 4,000 Unit Capsule 2,000 Unit PO HS Xyzal (Levocetirizine Dihydrochloride) 5 Mg Tablet 5 Mg GT HS Proair Hfa (Albuterol Sulfate) 8.5 Gm Hfa.aer.ad 2 Puff IH PRN Q4-6HRS PRN 21 Days Ipratropium [place] 30 Ml [place] 1 [place] NS DAILY Duoneb 0.5-3(2.5) Mg/3 Ml (Albuterol/Ipratropium) 3 Ml Ampul.neb 3 Ml NEB PRN QID PRN Montelukast Sodium Tablet (Montelukast Sodium) 10 Mg Tablet 10 Mg GT DAILY PRN Multi Vitamin Daily (Multivitamin) 1 Each Tablet 1 Each GT DAILY Vitals/I & O Vital Sign - Last 24 Hours 01/08/20 01/08/20 01/08/20 01/08/20 15:30 15:31 15:36 15:45 Pulse 86 91 80 Resp 19 19 B/P (MAP) 88/53 (65) 88/49 (62) Pulse Ox 97 100 100 97 O2 Delivery Nasal Cannula Nasal Cannula Room Air O2 Flow Rate 2.0 2.0 01/08/20 01/08/20 01/08/20 01/08/20 16:00 16:15 16:30 16:45 Pulse 81 88 87 83 B/P (MAP) 87/54 (65) 95/60 (72) 97/20 (45) 99/64 (76) Pulse Ox 97 100 100 95 O2 Delivery Room Air Room Air Room Air 01/08/20 01/08/20 01/08/20 01/08/20 17:19 19:00 19:52 20:00 Temp 97.9 97.9 Pulse 75 Resp 20 16 16 B/P (MAP) 84/53 (63) Pulse Ox 100 97 O2 Delivery Room Air Room Air Room Air Room Air 01/08/20 01/08/20 01/08/20 01/08/20 20:00 21:19 22:04 23:04 Resp 18 14 16 O2 Delivery Room Air Room Air Room Air Room Air 01/08/20 01/09/20 01/09/20 01/09/20 23:05 03:00 07:00 07:21 Temp 98.0 97.9 97.9 98.0 97.9 97.9 Pulse 74 80 80 Resp 16 16 18 14 B/P (MAP) 98/62 (74) 91/55 (67) 95/63 (74) Pulse Ox 98 96 98 O2 Delivery Room Air Room Air Room Air Room Air 01/09/20 01/09/20 01/09/20 01/09/20 07:51 10:02 10:32 11:00 Temp 98.1 98.1 Pulse 85 Resp 16 16 16 18 B/P (MAP) 94/61 (72) Pulse Ox 98 O2 Delivery Room Air Room Air Room Air Room Air 01/09/20 01/09/20 13:40 14:10 Resp 16 16 O2 Delivery Room Air Room Air Intake and Output 01/08/20 01/08/20 01/09/20 15:00 23:00 07:00 Intake Total 0 ml Balance 0 ml Justicifation of Admission Dx: Justifications for Admission: Justification of Admission Dx: Yes Sepsis: Bacteremia ALE JONES MD Jan 09, 2020 14:51
[2020-01-09 15:00] VITALS: BP 94/62
--- NOTE | 2020-01-09 15:12 | DISCH ---
DISCHARGE INSTRUCTIONS Condition on Discharge Condition on Discharge: Stable Activity After Discharge Activity Instructions for Disc: Activity as tolerated, Other, see below Bathing Instructions: Shower-keep dressing dry Diet after Discharge Diet Texture: Nothing by Mouth Liquid Texture: NPO Wound Incision Care Wound/Incision Care: Ice to area for comfort, Reinforce dressing PRN Wound Care Equipment: Dressings Checks after Discharge Checks after discharge: Check your Temp as needed Treatment/Equipment after DC Adaptive Equipment Issued: None Infusion Equipment, home use: Feeding Tube, ALE Palacios MD Jan 09, 2020 15:12
--- NOTE | 2020-01-09 15:40 | PDOC ---
SURGICAL PROGRESS NOTE DATE: 01/09/20 TIME: 15:38 Subjective Pt feels much better, chronic N/V Vital Signs Vital Signs Date Time Temp Pulse Resp B/P (MAP) Pulse Ox O2 Delivery O2 Flow Rate FiO2 01/09/20 15:00 98.4 88 18 94/62 (73) 96 Room Air 98.4 01/08/20 15:36 2.0 I&O Intake and Output 01/09/20 07:00 Intake Total 0 ml Balance 0 ml Intake Oral 0 ml # Voids 2 General: Alert, Oriented X3, Cooperative, No acute distress Lungs: Other (port site clean) Abdomen: Soft, Other (G-tube in place) Labs Laboratory Tests Test 01/08/20 03:19 01/09/20 03:20 White Blood Count 4.4 x10^3/uL (4.0-11.0) 4.9 x10^3/uL (4.0-11.0) Red Blood Count 3.53 x10^6/uL (3.50-5.40) 3.38 x10^6/uL (3.50-5.40) Hemoglobin 11.0 g/dL (12.0-15.5) 10.5 g/dL (12.0-15.5) Hematocrit 32.1 % (36.0-47.0) 30.8 % (36.0-47.0) Mean Corpuscular Volume 91 fL (79-100) 91 fL (79-100) Mean Corpuscular Hemoglobin 31 pg (25-35) 31 pg (25-35) Mean Corpuscular Hemoglobin Concent 34 g/dL (31-37) 34 g/dL (31-37) Red Cell Distribution Width 13.1 % (11.5-14.5) 13.6 % (11.5-14.5) Platelet Count 154 x10^3/uL (140-400) 157 x10^3/uL (140-400) Neutrophils (%) (Auto) 49 % (31-73) 57 % (31-73) Lymphocytes (%) (Auto) 41 % (24-48) 34 % (24-48) Monocytes (%) (Auto) 9 % (0-9) 8 % (0-9) Eosinophils (%) (Auto) 1 % (0-3) 1 % (0-3) Basophils (%) (Auto) 0 % (0-3) 0 % (0-3) Neutrophils # (Auto) 2.1 x10^3/uL (1.8-7.7) 2.8 x10^3/uL (1.8-7.7) Lymphocytes # (Auto) 1.8 x10^3/uL (1.0-4.8) 1.7 x10^3/uL (1.0-4.8) Monocytes # (Auto) 0.4 x10^3/uL (0.0-1.1) 0.4 x10^3/uL (0.0-1.1) Eosinophils # (Auto) 0.1 x10^3/uL (0.0-0.7) 0.1 x10^3/uL (0.0-0.7) Basophils # (Auto) 0.0 x10^3/uL (0.0-0.2) 0.0 x10^3/uL (0.0-0.2) Sodium Level 141 mmol/L (136-145) 141 mmol/L (136-145) Potassium Level 4.0 mmol/L (3.5-5.1) 3.8 mmol/L (3.5-5.1) Chloride Level 104 mmol/L (98-107) 105 mmol/L (98-107) Carbon Dioxide Level 29 mmol/L (21-32) 27 mmol/L (21-32) Anion Gap 8 (6-14) 9 (6-14) Blood Urea Nitrogen 9 mg/dL (7-20) 10 mg/dL (7-20) Creatinine 0.6 mg/dL (0.6-1.0) 0.5 mg/dL (0.6-1.0) Estimated GFR (Cockcroft-Gault) 126.2 155.7 Glucose Level 71 mg/dL (70-99) 69 mg/dL (70-99) Calcium Level 8.4 mg/dL (8.5-10.1) 9.1 mg/dL (8.5-10.1) Creatine Kinase 23 U/L (26-192) Laboratory Tests Test 01/09/20 03:20 White Blood Count 4.9 x10^3/uL (4.0-11.0) Red Blood Count 3.38 x10^6/uL (3.50-5.40) Hemoglobin 10.5 g/dL (12.0-15.5) Hematocrit 30.8 % (36.0-47.0) Mean Corpuscular Volume 91 fL (79-100) Mean Corpuscular Hemoglobin 31 pg (25-35) Mean Corpuscular Hemoglobin Concent 34 g/dL (31-37) Red Cell Distribution Width 13.6 % (11.5-14.5) Platelet Count 157 x10^3/uL (140-400) Neutrophils (%) (Auto) 57 % (31-73) Lymphocytes (%) (Auto) 34 % (24-48) Monocytes (%) (Auto) 8 % (0-9) Eosinophils (%) (Auto) 1 % (0-3) Basophils (%) (Auto) 0 % (0-3) Neutrophils # (Auto) 2.8 x10^3/uL (1.8-7.7) Lymphocytes # (Auto) 1.7 x10^3/uL (1.0-4.8) Monocytes # (Auto) 0.4 x10^3/uL (0.0-1.1) Eosinophils # (Auto) 0.1 x10^3/uL (0.0-0.7) Basophils # (Auto) 0.0 x10^3/uL (0.0-0.2) Sodium Level 141 mmol/L (136-145) Potassium Level 3.8 mmol/L (3.5-5.1) Chloride Level 105 mmol/L (98-107) Carbon Dioxide Level 27 mmol/L (21-32) Anion Gap 9 (6-14) Blood Urea Nitrogen 10 mg/dL (7-20) Creatinine 0.5 mg/dL (0.6-1.0) Estimated GFR (Cockcroft-Gault) 155.7 Glucose Level 69 mg/dL (70-99) Calcium Level 9.1 mg/dL (8.5-10.1) Problem List Problems Medical Problems: (1) Fever Status: Acute (2) Infection due to Port-A-Cath Status: Acute Assessment/Plan appears to be much improved OK to d/c home on abx F/u PRN Justicifation of Admission Dx: Justifications for Admission: Justification of Admission Dx: Yes Sepsis: Bacteremia TORIE MILLER MD Jan 09, 2020 15:40
--- NOTE | 2020-01-09 17:15 | NUR ---
Discharge orders placed. Discussed discharge medications/instructions with pt. Advised pt to f/u with ID 01/21 at 1415, if unable to make it to reschedule. Port-a-cath left accessed d/t pt going home and starting TPN. Discussed handling and cleaning of port-a-cath. Pt verbalized understanding. Pt wheeled off unit accompanied by grandparents and THAO Ross without complications.
--- NOTE | 2020-01-09 19:03 | PDOC ---
PROGRESS NOTES Date of Service: DATE: 01/09/20 TIME: 19:03 Chief Complaint Chief Complaint Sepsis 3/4 blood culture bottles positive for gram + cocci in clusters port infection, removed, needs replaced for her TPN at home, malnutrition baseline Hypotension Severe idiopathic gastroparesis Blood culture positive with Staphylococcus, 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 History of Present Illness History of Present Illness 01/08 Patient feels well. She states at home she was managing her own TPN, and using her G-tube and J-tube for "venting" and medications respectively. She has a home health nurse who can administer the remainder of her IV antibiotics, through 01/14. 01/07 Patient without complaints. Port-A-Cath replacement today. 01/06 Patient resting comfortably in bed. Per patient's nurse, still remains slightly hypotensive, but afebrile with MAP >65. Patient denies any complaints, anxious to go home. 01/05, midline IV placed, will try TPN tonight, port to be replaced pain better, + weakness, hypotensive this AM, will bolus NS one liter, probably dry 01/04, IV lost, will try midline, discussed with ID cont Dapto plan PORT placement mondya 12/31. LAVELL Vitals Vitals Vital Signs Date Time Temp Pulse Resp B/P (MAP) Pulse Ox O2 Delivery O2 Flow Rate FiO2 01/09/20 15:00 98.4 88 18 94/62 (73) 96 Room Air 98.4 01/08/20 15:36 2.0 Physical Exam Physical Exam GENERAL: Propped up in bed alert, in NAD HEENT: [place]. Oral cavity pink, dry. Some bacterial overgrowth on the tongue NECK: Supple LUNGS: Clear. HEART: S1, S2 regular. ABDOMEN: Bowel sounds present, soft and nontender. J-tube clean EXTREMITIES: No edema or cyanosis. SKIN: without rash. NEUROLOGICAL: Alert oriented, x3 no focal neurologic deficit. Right-sided Port-A-Cath clean RUE-midline clean General: Alert, Oriented X3, Cooperative, No acute distress Heart: Regular rate Lungs: Clear Abdomen: Soft, Other (G-tube in place) Extremities: No clubbing, No cyanosis Skin: No rashes Labs LABS Laboratory Tests Test 01/09/20 03:20 White Blood Count 4.9 x10^3/uL (4.0-11.0) Red Blood Count 3.38 x10^6/uL (3.50-5.40) Hemoglobin 10.5 g/dL (12.0-15.5) Hematocrit 30.8 % (36.0-47.0) Mean Corpuscular Volume 91 fL (79-100) Mean Corpuscular Hemoglobin 31 pg (25-35) Mean Corpuscular Hemoglobin Concent 34 g/dL (31-37) Red Cell Distribution Width 13.6 % (11.5-14.5) Platelet Count 157 x10^3/uL (140-400) Neutrophils (%) (Auto) 57 % (31-73) Lymphocytes (%) (Auto) 34 % (24-48) Monocytes (%) (Auto) 8 % (0-9) Eosinophils (%) (Auto) 1 % (0-3) Basophils (%) (Auto) 0 % (0-3) Neutrophils # (Auto) 2.8 x10^3/uL (1.8-7.7) Lymphocytes # (Auto) 1.7 x10^3/uL (1.0-4.8) Monocytes # (Auto) 0.4 x10^3/uL (0.0-1.1) Eosinophils # (Auto) 0.1 x10^3/uL (0.0-0.7) Basophils # (Auto) 0.0 x10^3/uL (0.0-0.2) Sodium Level 141 mmol/L (136-145) Potassium Level 3.8 mmol/L (3.5-5.1) Chloride Level 105 mmol/L (98-107) Carbon Dioxide Level 27 mmol/L (21-32) Anion Gap 9 (6-14) Blood Urea Nitrogen 10 mg/dL (7-20) Creatinine 0.5 mg/dL (0.6-1.0) Estimated GFR (Cockcroft-Gault) 155.7 Glucose Level 69 mg/dL (70-99) Calcium Level 9.1 mg/dL (8.5-10.1) Assessment and Plan Assessmemt and Plan Problems Medical Problems: (1) Fever Status: Acute (2) Infection due to Port-A-Cath Status: Acute Comment Review of Relevant I have reviewed the following items lalo (where applicable) has been applied. Labs Laboratory Tests Test 01/08/20 03:19 01/09/20 03:20 White Blood Count 4.4 x10^3/uL (4.0-11.0) 4.9 x10^3/uL (4.0-11.0) Red Blood Count 3.53 x10^6/uL (3.50-5.40) 3.38 x10^6/uL (3.50-5.40) Hemoglobin 11.0 g/dL (12.0-15.5) 10.5 g/dL (12.0-15.5) Hematocrit 32.1 % (36.0-47.0) 30.8 % (36.0-47.0) Mean Corpuscular Volume 91 fL (79-100) 91 fL (79-100) Mean Corpuscular Hemoglobin 31 pg (25-35) 31 pg (25-35) Mean Corpuscular Hemoglobin Concent 34 g/dL (31-37) 34 g/dL (31-37) Red Cell Distribution Width 13.1 % (11.5-14.5) 13.6 % (11.5-14.5) Platelet Count 154 x10^3/uL (140-400) 157 x10^3/uL (140-400) Neutrophils (%) (Auto) 49 % (31-73) 57 % (31-73) Lymphocytes (%) (Auto) 41 % (24-48) 34 % (24-48) Monocytes (%) (Auto) 9 % (0-9) 8 % (0-9) Eosinophils (%) (Auto) 1 % (0-3) 1 % (0-3) Basophils (%) (Auto) 0 % (0-3) 0 % (0-3) Neutrophils # (Auto) 2.1 x10^3/uL (1.8-7.7) 2.8 x10^3/uL (1.8-7.7) Lymphocytes # (Auto) 1.8 x10^3/uL (1.0-4.8) 1.7 x10^3/uL (1.0-4.8) Monocytes # (Auto) 0.4 x10^3/uL (0.0-1.1) 0.4 x10^3/uL (0.0-1.1) Eosinophils # (Auto) 0.1 x10^3/uL (0.0-0.7) 0.1 x10^3/uL (0.0-0.7) Basophils # (Auto) 0.0 x10^3/uL (0.0-0.2) 0.0 x10^3/uL (0.0-0.2) Sodium Level 141 mmol/L (136-145) 141 mmol/L (136-145) Potassium Level 4.0 mmol/L (3.5-5.1) 3.8 mmol/L (3.5-5.1) Chloride Level 104 mmol/L (98-107) 105 mmol/L (98-107) Carbon Dioxide Level 29 mmol/L (21-32) 27 mmol/L (21-32) Anion Gap 8 (6-14) 9 (6-14) Blood Urea Nitrogen 9 mg/dL (7-20) 10 mg/dL (7-20) Creatinine 0.6 mg/dL (0.6-1.0) 0.5 mg/dL (0.6-1.0) Estimated GFR (Cockcroft-Gault) 126.2 155.7 Glucose Level 71 mg/dL (70-99) 69 mg/dL (70-99) Calcium Level 8.4 mg/dL (8.5-10.1) 9.1 mg/dL (8.5-10.1) Creatine Kinase 23 U/L (26-192) Laboratory Tests Test 01/09/20 03:20 White Blood Count 4.9 x10^3/uL (4.0-11.0) Red Blood Count 3.38 x10^6/uL (3.50-5.40) Hemoglobin 10.5 g/dL (12.0-15.5) Hematocrit 30.8 % (36.0-47.0) Mean Corpuscular Volume 91 fL (79-100) Mean Corpuscular Hemoglobin 31 pg (25-35) Mean Corpuscular Hemoglobin Concent 34 g/dL (31-37) Red Cell Distribution Width 13.6 % (11.5-14.5) Platelet Count 157 x10^3/uL (140-400) Neutrophils (%) (Auto) 57 % (31-73) Lymphocytes (%) (Auto) 34 % (24-48) Monocytes (%) (Auto) 8 % (0-9) Eosinophils (%) (Auto) 1 % (0-3) Basophils (%) (Auto) 0 % (0-3) Neutrophils # (Auto) 2.8 x10^3/uL (1.8-7.7) Lymphocytes # (Auto) 1.7 x10^3/uL (1.0-4.8) Monocytes # (Auto) 0.4 x10^3/uL (0.0-1.1) Eosinophils # (Auto) 0.1 x10^3/uL (0.0-0.7) Basophils # (Auto) 0.0 x10^3/uL (0.0-0.2) Sodium Level 141 mmol/L (136-145) Potassium Level 3.8 mmol/L (3.5-5.1) Chloride Level 105 mmol/L (98-107) Carbon Dioxide Level 27 mmol/L (21-32) Anion Gap 9 (6-14) Blood Urea Nitrogen 10 mg/dL (7-20) Creatinine 0.5 mg/dL (0.6-1.0) Estimated GFR (Cockcroft-Gault) 155.7 Glucose Level 69 mg/dL (70-99) Calcium Level 9.1 mg/dL (8.5-10.1) Microbiology 01/02/20 Blood Culture - Final, Complete NO GROWTH AFTER 5 DAYS 12/31/19 Gram Stain - Final, Complete 12/31/19 Aerobic and Anaerobic Culture - Final, Complete 12/31/19 Antimicrobic Susceptibility - Final, Complete Medications Current Medications Sodium Chloride 1,000 ml @ 1,000 mls/hr Q1H IV Last administered on 12/26/19at 14:52; Start 12/26/19 at 14:44; Stop 12/26/19 at 15:43; Status DC Acetaminophen (Tylenol) 1,000 mg 1X ONCE PO Last administered on 12/26/19at 14:52; Start 12/26/19 at 14:45; Stop 12/26/19 at 14:52; Status DC Fentanyl Citrate (Fentanyl 2ml Vial) 50 mcg 1X ONCE IVP Last administered on 12/26/19at 14:51; Start 12/26/19 at 14:45; Stop 8/5/20 at 14:52; Status DC Sodium Chloride 1,000 ml @ 1,000 mls/hr 1X ONCE IV Last administered on 12/26/19at 16:16; Start 12/26/19 at 15:30; Stop 12/26/19 at 16:29; Status DC Piperacillin Sod/ Tazobactam Sod 3.375 gm/Sodium Chloride 50 ml @ 100 mls/hr 1X ONCE IV Last administered on 12/26/19at 16:15; Start 12/26/19 at 16:15; Stop 12/27/19 at 10:20; Status DC Diphenhydramine HCl (Benadryl) 25 mg 1X ONCE IVP Last administered on 12/26/19at 16:16; Start 12/26/19 at 16:15; Stop 12/26/19 at 16:16; Status DC Vancomycin HCl (Vanco Per Pharmacy) 1 each PRN DAILY PRN MC SEE COMMENTS Last administered on 12/29/19at 12:34; Start 12/26/19 at 16:15; Stop 12/29/19 at 12:43; Status DC Vancomycin HCl 1.75 gm/Sodium Chloride 500 ml @ 250 mls/hr 1X ONCE IV Last administered on 12/26/19at 16:59; Start 12/26/19 at 17:00; Stop 12/26/19 at 18:59; Status DC Fentanyl Citrate (Fentanyl 2ml Vial) 50 mcg 1X ONCE IVP Last administered on 12/26/19at 16:59; Start 12/26/19 at 16:45; Stop 12/26/19 at 16:46; Status DC Vancomycin HCl 1 gm/Sodium Chloride 250 ml @ 250 mls/hr Q8H IV Last administered on 12/27/19at 18:09; Start 12/27/19 at 01:00; Stop 12/27/19 at 20:25; Status DC Vancomycin HCl (Vancomycin Trough Level) 1 each 1X ONCE MC Last administered on 12/27/19at 16:30; Start 12/27/19 at 16:30; Stop 12/27/19 at 16:31; Status DC Fentanyl Citrate (Fentanyl 2ml Vial) 50 mcg PRN Q2HR PRN IVP PAIN 1st choice Last administered on 01/04/20at 11:00; Start 12/26/19 at 18:45 Ondansetron HCl (Zofran) 4 mg PRN Q6HRS PRN IVP NAUSEA/VOMITING 1ST CHOICE Last administered on 01/09/20at 09:35; Start 12/26/19 at 18:45 Prochlorperazine Edisylate (Compazine) 10 mg PRN Q8HRS PRN IM NAUSEA/VOMITING Last administered on 12/28/19at 12:28; Start 12/26/19 at 18:45; Stop 12/29/19 at 14:52; Status DC Acetaminophen (Tylenol) 650 mg PRN Q6HRS PRN PEG MILD PAIN / TEMP > 100.3'F Last administered on 12/27/19at 11:50; Start 12/26/19 at 18:45 Cefazolin Sodium/ Dextrose 50 ml @ 100 mls/hr Q8HRS IV ; Start 12/27/19 at 11:00; Status Cancel Cefazolin Sodium/ Dextrose 50 ml @ 100 mls/hr Q8HRS IV Last administered on 12/29/19at 05:55; Start 12/27/19 at 12:00; Stop 12/29/19 at 12:38; Status DC Amino Acids/ Glycerin/ Electrolytes 1,000 ml @ 75 mls/hr [id number] IV Last administered on 01/09/20at 04:50; Start 12/27/19 at 11:30 Vancomycin HCl 1.25 gm/Sodium Chloride 250 ml @ 250 mls/hr Q8H IV Last administered on 12/29/19at 02:00; Start 12/28/19 at 02:00; Stop 12/29/19 at 10:05; Status DC Vancomycin HCl (Vancomycin Trough Level) 1 each 1X ONCE MC Last administered on 12/29/19at 09:30; Start 12/29/19 at 09:30; Stop 12/29/19 at 09:31; Status DC Iohexol (Omnipaque 240 Mg/ml) 50 ml STK-MED ONCE .ROUTE ; Start 12/28/19 at 11:26; Stop 12/28/19 at 11:26; Status DC Midazolam HCl (Versed) 2 mg STK-MED ONCE .ROUTE ; Start 12/28/19 at 12:21; Stop 12/28/19 at 12:22; Status DC Fentanyl Citrate (Fentanyl 2ml Vial) 100 mcg STK-MED ONCE .ROUTE ; Start 12/28/19 at 12:21; Stop 12/28/19 at 12:22; Status DC Potassium Chloride/Water 100 ml @ 100 mls/hr Q1H IV Last administered on 12/28/19at 18:41; Start 12/28/19 at 13:00; Stop 12/28/19 at 14:59; Status DC Lidocaine HCl (Buffered Lidocaine 1%) 3 ml 1X ONCE IJ Last administered on 12/28/19at 12:50; Start 12/28/19 at 13:00; Stop 12/28/19 at 13:01; Status DC Midazolam HCl (Versed) 2 mg 1X ONCE IV Last administered on 12/28/19at 12:45; Start 12/28/19 at 13:00; Stop 12/28/19 at 13:01; Status DC Iohexol (Omnipaque 240 Mg/ml) 50 ml 1X ONCE IJ Last administered on 12/28/19at 12:52; Start 12/28/19 at 13:00; Stop 12/28/19 at 13:01; Status DC Lidocaine HCl (Buffered Lidocaine 1%) 3 ml STK-MED ONCE .ROUTE ; Start 12/28/19 at 12:54; Stop 12/28/19 at 12:55; Status DC Fentanyl Citrate (Fentanyl 2ml Vial) 100 mcg 1X ONCE IV Last administered on 12/28/19at 12:50; Start 12/28/19 at 13:15; Stop 12/28/19 at 13:16; Status DC Vancomycin HCl 1.25 gm/Sodium Chloride 250 ml @ 250 mls/hr Q6H IV ; Start 12/29/19 at 10:00; Status Cancel Vancomycin HCl 1.25 gm/Sodium Chloride 250 ml @ 250 mls/hr Q6H IV ; Start 12/29/19 at 10:08; Status Cancel Vancomycin HCl 1.25 gm/Sodium Chloride 250 ml @ 250 mls/hr Q6H IV Last administered on 12/29/19at 10:48; Start 12/29/19 at 10:00; Stop 12/29/19 at 12:41; Status DC Vancomycin HCl 1.75 gm/Sodium Chloride 500 ml @ 250 mls/hr Q8H IV ; Start 12/29/19 at 19:00; Stop 12/29/19 at 12:40; Status DC Vancomycin HCl (Vancomycin Trough Level) 1 each 1X ONCE MC ; Start 12/30/19 at 18:30; Stop 12/30/19 at 18:31; Status Cancel Daptomycin 440 mg/ Sodium Chloride 50 ml @ 100 mls/hr Q24H IV Last administ ered on 01/09/20at 09:55; Start 12/29/19 at 13:00 Prochlorperazine Edisylate (Compazine) 10 mg PRN Q8HRS PRN IVP NAUSEA/VOMITING 2ND CHOICE Last administered on 01/03/20at 18:07; Start 12/29/19 at 15:00 Lidocaine/ Epinephrine (LIDOCAINE 1%-EPI 1:100,000 Multi-Dose) 20 ml STK-MED ONCE .ROUTE ; Start 12/31/19 at 13:28; Stop 12/31/19 at 13:28; Status DC Midazolam HCl (Versed) 2 mg STK-MED ONCE .ROUTE ; Start 12/31/19 at 14:03; Stop 12/31/19 at 14:04; Status DC Fentanyl Citrate (Fentanyl 2ml Vial) 100 mcg STK-MED ONCE .ROUTE ; Start 12/31/19 at 14:04; Stop 12/31/19 at 14:04; Status DC Midazolam HCl (Versed) 2 mg 1X ONCE IV Last administered on 12/31/19at 14:15; Start 12/31/19 at 14:15; Stop 12/31/19 at 14:19; Status DC Fentanyl Citrate (Fentanyl 2ml Vial) 100 mcg 1X ONCE IV Last administered on 12/31/19at 14:15; Start 12/31/19 at 14:15; Stop 12/31/19 at 14:19; Status DC Lidocaine/ Epinephrine (LIDOCAINE 1%-EPI 1:100,000 Multi-Dose) 20 ml 1X ONCE INJ Last administered on 12/31/19at 14:15; Start 12/31/19 at 14:15; Stop 12/31/19 at 14:19; Status DC Fentanyl Citrate (Fentanyl 2ml Vial) 50 mcg 1X ONCE IVP Last administered on 12/31/19at 17:45; Start 12/31/19 at 17:45; Stop 12/31/19 at 17:46; Status DC Lidocaine HCl (Viscous Lidocaine) 15 ml STK-MED ONCE .ROUTE ; Start 01/01/20 at 11:43; Stop 01/01/20 at 11:43; Status DC Lidocaine HCl (Xylocaine 2% Topical 30gm Tube) 30 joy STK-MED ONCE TP ; Start 01/01/20 at 11:43; Stop 01/01/20 at 11:43; Status DC Benzocaine (Hurricaine One) 1 spray STK-MED ONCE .ROUTE ; Start 01/01/20 at 11:43; Stop 01/01/20 at 11:43; Status DC Propofol (Diprivan) 200 mg STK-MED ONCE IV ; Start 01/01/20 at 13:43; Stop 01/01/20 at 13:44; Status DC Ringer's Solution 1,000 ml @ 50 mls/hr Q20H IV ; Start 01/01/20 at 14:14; Stop 01/02/20 at 02:13; Status DC Phytonadione (Vitamin K Ampule) 10 mg 1X ONCE SQ Last administered on 01/02/20at 16:22; Start 01/02/20 at 15:30; Stop 01/02/20 at 15:31; Status DC Morphine Sulfate (Morphine Sulfate) 4 mg PRN Q2HR PRN IV PAIN Last administered on 01/09/20at 13:40; Start 01/04/20 at 12:00 Diphenhydramine HCl (Benadryl) 25 mg PRN Q6HRS PRN IVP ITCHING Last administered on 01/09/20at 14:37; Start 01/05/20 at 09:45 Prochlorperazine Edisylate (Compazine) 10 mg 1X ONCE IM Last administered on 01/05/20at 10:11; Start 01/05/20 at 10:15; Stop 01/05/20 at 10:16; Status DC Morphine Sulfate (Morphine Sulfate) 4 mg 1X ONCE IV ; Start 01/05/20 at 10:15; Stop 01/05/20 at 10:14; Status DC Morphine Sulfate (Morphine Sulfate) 4 mg 1X ONCE IM Last administered on 01/05/20at 10:16; Start 01/05/20 at 10:15; Stop 01/05/20 at 10:16; Status DC Morphine Sulfate (Morphine Sulfate) 4 mg 1X ONCE IM Last administered on 01/05/20at 14:27; Start 01/05/20 at 14:15; Stop 01/05/20 at 14:16; Status DC Morphine Sulfate (Morphine Sulfate) 4 mg 1X ONCE IM Last administered on 01/05/20at 17:45; Start 01/05/20 at 16:45; Stop 01/05/20 at 16:46; Status DC Prochlorperazine Edisylate (Compazine) 10 mg 1X ONCE IM Last administered on 01/05/20at 17:45; Start 01/05/20 at 16:45; Stop 01/05/20 at 16:46; Status DC Morphine Sulfate (Morphine Sulfate) 4 mg 1X ONCE IM Last administered on 01/05/20at 21:58; Start 01/05/20 at 20:00; Stop 01/05/20 at 20:12; Status DC Prochlorperazine Edisylate (Compazine) 10 mg 1X ONCE IM ; Start 01/05/20 at 20:00; Stop 01/05/20 at 20:12; Status DC Sodium Chloride 1,000 ml @ 1,000 mls/hr 1X ONCE IV Last administered on 01/06/20at 11:58; Start 01/06/20 at 11:00; Stop 01/06/20 at 11:59; Status DC Info (Tpn Per Pharmacy) 1 each PRN DAILY PRN MC SEE COMMENTS; Start 01/06/20 at 11:00; Stop 01/06/20 at 11:11; Status DC Sodium Chloride 1,000 ml @ 1,000 mls/hr 1X ONCE IV Last administered on at 14:33; Start 01/07/20 at 14:15; Stop 01/07/20 at 15:14; Status DC Midazolam HCl (Versed) 2 mg STK-MED ONCE .ROUTE ; Start 01/08/20 at 14:27; Stop 01/08/20 at 14:27; Status DC Fentanyl Citrate (Fentanyl 2ml Vial) 100 mcg STK-MED ONCE .ROUTE ; Start 01/08/20 at 14:27; Stop 01/08/20 at 14:28; Status DC Midazolam HCl (Versed) 2 mg 1X ONCE IV Last administered on 01/08/20at 15:30; Start 01/08/20 at 15:00; Stop 01/08/20 at 15:01; Status DC Fentanyl Citrate (Fentanyl 2ml Vial) 100 mcg 1X ONCE IV Last administered on 01/08/20at 15:31; Start 01/08/20 at 15:00; Stop 01/08/20 at 15:01; Status DC Lidocaine/ Epinephrine (LIDOCAINE 1%-EPI 1:100,000 Multi-Dose) 7 ml 1X ONCE INJ Last administered on 01/08/20at 15:30; Start 01/08/20 at 15:00; Stop 01/08/20 at 15:01; Status DC Info (Tpn Per Pharmacy) 1 each PRN DAILY PRN MC SEE COMMENTS; Start 01/08/20 at 17:45 Active Scripts Active [Tpn Per Pharmacy] 1 EACH Each 1 Each MC PRN DAILY PRN 30 Days Tpn Electrolytes Vial (Sodium/K+/Mag/Ca/Chlor/Acetate) 20 Ml Vial 20 Ml IV DAILY06 30 Days Metoclopramide Hcl 5 Mg/1 Ml Vial 10 Mg IVP PRN Q6HRS PRN 14 Days [Pantoprazole Iv Push] 40 MG Vial 40 Mg IVP BIDAC 30 Days Ondansetron Hcl 4 Mg/2 Ml Vial (Ondansetron Hcl/Pf) 4 Mg/2 Ml Vial 4 Mg IVP PRN Q6HRS PRN 30 Days Prochlorperazine Edisylate 10 Mg/2 Ml Vial 10 Mg IV PRN Q6HRS PRN 14 Days Milk Of Magnesia (Magnesium Hydroxide) 400 Mg/5 Ml Oral.susp 2,400 Mg JT DAILY 30 Days Enemeez (Docusate Sodium) 283 Mg/5 Ml Enema 283 Mg MD PRN DAILY PRN 30 Days Bisacodyl 10 Mg Supp.rect 10 Mg MD PRN DAILY PRN 30 Days Nystatin 100,000 Unit/1 Ml Oral.susp 5 Ml SWSW [id number] 10 Days Hydrocodone-Apap 7.5-325/15 Soln (Hydrocodone Bit/Acetaminophen) 15 Ml Solution 15 Ml JT PRN Q6HRS PRN Reported Metoprolol Tartrate 50 Mg Tablet 1 Tab PO BID Advair Hfa 230-21 Mcg Inhaler (Fluticasone/Salmeterol) 12 Gm Hfa.aer.ad 1 Inh IH BID Dicyclomine Hcl 20 Mg Tablet 20 Mg GT PRN QID PRN Olopatadine HCl 5 Ml Drops 0.1 % OP PRN DAILY PRN Promethazine Hcl 12.5 Mg Tablet 25 Mg GT Q6H PRN Trazodone Hcl 50 Mg Tablet 50 Mg GT HS Coq-10 (Ubidecarenone) 100 Mg Capsule 200 Mg GT DAILY Vitamin D3 (Cholecalciferol (Vitamin D3)) 4,000 Unit Capsule 2,000 Unit PO HS Xyzal (Levocetirizine Dihydrochloride) 5 Mg Tablet 5 Mg GT HS Proair Hfa (Albuterol Sulfate) 8.5 Gm Hfa.aer.ad 2 Puff IH PRN Q4-6HRS PRN 21 Days Ipratropium [place] 30 Ml [place] 1 [place] NS DAILY Duoneb 0.5-3(2.5) Mg/3 Ml (Albuterol/Ipratropium) 3 Ml Ampul.neb 3 Ml NEB PRN QID PRN Montelukast Sodium Tablet (Montelukast Sodium) 10 Mg Tablet 10 Mg GT DAILY PRN Multi Vitamin Daily (Multivitamin) 1 Each Tablet 1 Each GT DAILY Vitals/I & O Vital Sign - Last 24 Hours 01/08/20 01/08/20 01/08/20 01/08/20 19:52 20:00 20:00 21:19 Resp 16 16 18 O2 Delivery Room Air Room Air Room Air Room Air 01/08/20 01/08/20 01/08/20 01/09/20 22:04 23:04 23:05 03:00 Temp 98.0 97.9 98.0 97.9 Pulse 74 80 Resp 14 16 16 16 B/P (MAP) 98/62 (74) 91/55 (67) Pulse Ox 98 96 O2 Delivery Room Air Room Air Room Air Room Air 01/09/20 01/09/20 01/09/20 01/09/20 07:00 07:21 07:51 07:55 Temp 97.9 97.9 Pulse 80 Resp 18 14 16 B/P (MAP) 95/63 (74) Pulse Ox 98 O2 Delivery Room Air Room Air Room Air Room Air 01/09/20 01/09/20 01/09/20 01/09/20 10:02 10:32 11:00 13:40 Temp 98.1 98.1 Pulse 85 Resp 16 16 18 16 B/P (MAP) 94/61 (72) Pulse Ox 98 O2 Delivery Room Air Room Air Room Air Room Air 01/09/20 01/09/20 14:10 15:00 Temp 98.4 98.4 Pulse 88 Resp 16 18 B/P (MAP) 94/62 (73) Pulse Ox 96 O2 Delivery Room Air Room Air Intake and Output 01/08/20 01/08/20 01/09/20 15:00 23:00 07:00 Intake Total 0 ml Balance 0 ml Justicifation of Admission Dx: Justifications for Admission: Justification of Admission Dx: Yes Sepsis: Bacteremia ALE JONES MD Jan 09, 2020 19:03
--- NOTE | 2020-01-10 11:37 | PDOC3 ---
Discharge Summary Visit Information Date of Admission: Dec 26, 2019 Date of Discharge: Jan 09, 2020 Final Diagnosis Problems Medical Problems: (1) Fever Status: Acute (2) Infection due to Port-A-Cath Status: Acute Brief Hospital Course Allergies Allergies Coded Allergies Type Severity Reaction Last Updated Verified Penicillins Allergy Intermediate LIGHT RASH CHILD 12/29/19 Yes Sulfa (Sulfonamide Antibiotics) Allergy Intermediate 08/29/19 Yes I S O L A T I O N *CONTACT* Allergy Unknown 12/31/19 Yes Vital Signs Vital Signs Date Time Temp Pulse Resp B/P (MAP) Pulse Ox O2 Delivery O2 Flow Rate FiO2 01/09/20 15:00 98.4 88 18 94/62 (73) 96 Room Air 98.4 Lab Results Laboratory Tests Test 01/09/20 03:20 White Blood Count 4.9 x10^3/uL (4.0-11.0) Red Blood Count 3.38 x10^6/uL (3.50-5.40) Hemoglobin 10.5 g/dL (12.0-15.5) Hematocrit 30.8 % (36.0-47.0) Mean Corpuscular Volume 91 fL (79-100) Mean Corpuscular Hemoglobin 31 pg (25-35) Mean Corpuscular Hemoglobin Concent 34 g/dL (31-37) Red Cell Distribution Width 13.6 % (11.5-14.5) Platelet Count 157 x10^3/uL (140-400) Neutrophils (%) (Auto) 57 % (31-73) Lymphocytes (%) (Auto) 34 % (24-48) Monocytes (%) (Auto) 8 % (0-9) Eosinophils (%) (Auto) 1 % (0-3) Basophils (%) (Auto) 0 % (0-3) Neutrophils # (Auto) 2.8 x10^3/uL (1.8-7.7) Lymphocytes # (Auto) 1.7 x10^3/uL (1.0-4.8) Monocytes # (Auto) 0.4 x10^3/uL (0.0-1.1) Eosinophils # (Auto) 0.1 x10^3/uL (0.0-0.7) Basophils # (Auto) 0.0 x10^3/uL (0.0-0.2) Sodium Level 141 mmol/L (136-145) Potassium Level 3.8 mmol/L (3.5-5.1) Chloride Level 105 mmol/L (98-107) Carbon Dioxide Level 27 mmol/L (21-32) Anion Gap 9 (6-14) Blood Urea Nitrogen 10 mg/dL (7-20) Creatinine 0.5 mg/dL (0.6-1.0) Estimated GFR (Cockcroft-Gault) 155.7 Glucose Level 69 mg/dL (70-99) Calcium Level 9.1 mg/dL (8.5-10.1) Brief Hospital Course Ms. Mustafa is a 19 old F who presented with a Port-A-Cath infection. Port-A-Cath was removed and culture showed MRSA. She was treated with appropriate MRSA coverage antibiotics, which were eventually changed to daptomycin. She was stable for discharge home with home health to finish her course of IV antibiotics. She was stable to administer her TPN herself to her new Port-A-Cath. Discharge Information Condition at Discharge: Improved Follow Up: Weeks Disposition/Orders: D/C to Home w/ HH Scheduled Cholecalciferol (Vitamin D3) (Vitamin D3) 4,000 Unit Capsule, 2,000 UNIT PO HS for supplement, (Reported) Entered as Reported by: BUSTER SULTANA on 08/20/191218 Last Action: Reviewed on 12/27/1924 by Crystal Sultana Fluticasone/Salmeterol (Advair Hfa 230-21 Mcg Inhaler) 12 Gm Hfa.aer.ad, 1 INH IH BID for asthma, (Reported) Entered as Reported by: ROSMERY LOJA on 08/29/192253 Last Action: Reviewed on 12/27/1924 by Crystal Sultana Ipratropium [place] (Ipratropium [place]) 30 Ml [place], 1 SPRAY NS DAILY for allergies, (Reported) Entered as Reported by: BUSTER SULTANA on 08/20/191218 Last Action: Reviewed on 12/27/1924 by Crystal Sultana Levocetirizine Dihydrochloride (Xyzal) 5 Mg Tablet, 5 MG GT HS for allergies, (Reported) Entered as Reported by: BUSTER SULTANA on 08/20/191218 Last Action: Reviewed on 12/27/1924 by Crystal Sultana Magnesium Hydroxide (Milk Of Magnesia) 400 Mg/5 Ml Oral.susp, 2,400 MG JT DAILY for CONSTIPATION for 30 Days, #240 Prescribed by: JEFFERSON XAVIER MD on 11/30/191613 Last Action: Reviewed on 12/27/1924 by Crystal Sultana Metoprolol Tartrate (Metoprolol Tartrate) 50 Mg Tablet, 1 TAB PO BID for headache, #60 Ref 5 (Reported) Entered as Reported by: Crystal Sultana on 12/27/19524 Last Action: New Order on 12/27/19524 by Crystal Sultana Multivitamin (Multi Vitamin Daily) 1 Each Tablet, 1 EACH GT DAILY for supplement, (Reported) Entered as Reported by: BUSTER SULTANA on 08/20/191217 Last Action: Reviewed on 12/27/1924 by Crystal Sultana Nystatin (Nystatin) 100,000 Unit/1 Ml Oral.susp, 5 ML SWSW [id number] for THRUSH for 10 Days, #460 Prescribed by: JEFFERSON XAVIER MD on 11/30/191613 Sodium/K+/Mag/Ca/Chlor/Acetate (Tpn Electrolytes Vial) 20 Ml Vial, 20 ML IV DAILY06 for SUPPLEMENT for 30 Days, #30 Prescribed by: JEFFERSON XAVIER MD on 11/30/191613 Last Action: Reviewed on 12/27/1924 by Crystal Sultana Trazodone Hcl (Trazodone Hcl) 50 Mg Tablet, 50 MG GT HS for aid sleep, (Reported) Entered as Reported by: BUSTER SULTANA on 08/20/191218 Last Action: Reviewed on 12/27/1924 by Crystal Sultana Ubidecarenone (Coq-10) 100 Mg Capsule, 200 MG GT DAILY for supplement, (Reported) Entered as Reported by: BUSTER SULTANA on 08/20/191218 Last Action: Reviewed on 12/27/1924 by Crystal Sultana [Pantoprazole Iv Push] 40 MG VIAL, 40 MG IVP BIDAC for GERD for 30 Days, #30 Prescribed by: JEFFERSON XAVIER MD on 11/30/191613 Last Action: Reviewed on 12/27/1924 by Crystal Sultana Scheduled PRN Albuterol Sulfate (Proair Hfa) 8.5 Gm Hfa.aer.ad, 2 PUFF IH PRN Q4-6HRS PRN for wheezing for 21 Days, #1 Ref 0 (Reported) Entered as Reported by: BUSTER SULTANA on 08/20/191218 Last Action: Reviewed on 12/27/1924 by Crystal Sultana Bisacodyl (Bisacodyl) 10 Mg Supp.rect, 10 MG [place] PRN DAILY PRN for CONSTIPATION, 1sT CHOICE for 30 Days, #30 Prescribed by: JEFFERSON XAVIER MD on 11/30/191613 Last Action: Reviewed on 12/27/1924 by Crystal Sultana Dicyclomine Hcl (Dicyclomine Hcl) 20 Mg Tablet, 20 MG GT PRN QID PRN for stomach spasms, (Reported) Entered as Reported by: BUSTER SULTANA on 08/20/191218 Last Action: Reviewed on 12/27/1924 by Crystal Sultana Docusate Sodium (Enemeez) 283 Mg/5 Ml Enema, 283 MG [place] PRN DAILY PRN for CONSTIPATION, 2nd CHOICE for 30 Days, #20 Prescribed by: JEFFERSON XAVIER MD on 11/30/191613 Last Action: Reviewed on 12/27/1924 by Crystal Sultana Hydrocodone Bit/Acetaminophen (Hydrocodone-Apap 7.5-325/15 Soln ) 15 Ml Solution, 15 ML JT PRN Q6HRS PRN for PAIN, #250 Ref 0 Prescribed by: KRISTEN ESPAÑA on 09/03/19 0828 Last Action: Reviewed on 12/27/1924 by Crystal Sultana Ipratropium/Albuterol Sulfate (Duoneb 0.5-3(2.5) Mg/3 Ml) 3 Ml Ampul.neb, 3 ML NEB PRN QID PRN for asthma, (Reported) Entered as Reported by: BUSTER SULTANA on 08/20/191217 Last Action: Reviewed on 12/27/1924 by Crystal Sultana Metoclopramide Hcl (Metoclopramide Hcl) 5 Mg/1 Ml Vial, 10 MG IVP PRN Q6HRS PRN for NAUSEA/VOMITING 3RD CHOICE for 14 Days, #60 Prescribed by: JEFFERSON XAVIER MD on 11/30/191613 Montelukast Sodium (Montelukast Sodium Tablet ) 10 Mg Tablet, 10 MG GT DAILY PRN for asthma, Ref 0 (Reported) Entered as Reported by: BUSTER SULTANA on 08/20/191217 Last Action: Reviewed on 12/27/1924 by Crystal Sultana Olopatadine HCl (Olopatadine HCl) 5 Ml Drops, 0.1 % OP PRN DAILY PRN for eye relief, (Reported) Entered as Reported by: BUSTER SULTANA on 08/20/191218 Last Action: Reviewed on 12/27/1924 by Crystal Sultana Ondansetron Hcl/Pf (Ondansetron Hcl 4 Mg/2 Ml Vial) 4 Mg/2 Ml Vial, 4 MG IVP PRN Q6HRS PRN for NAUSEA/VOMITING 1ST CHOICE for 30 Days, #90 Prescribed by: JEFFERSON XAVIER MD on 11/30/191613 Last Action: Reviewed on 12/27/1924 by Crystal Sultana Prochlorperazine Edisylate (Prochlorperazine Edisylate) 10 Mg/2 Ml Vial, 10 MG IV PRN Q6HRS PRN for NAUSEA/VOMITING 2ND CHOICE for 14 Days, #30 Prescribed by: JEFFERSON XAVIER MD on 11/30/191613 Last Action: Reviewed on 12/27/1924 by Crystal Sultana Promethazine Hcl (Promethazine Hcl) 12.5 Mg Tablet, 25 MG GT Q6H PRN for NAUSEA/VOMITING, (Reported) Entered as Reported by: BUSTER SULTANA on 08/20/191218 Last Action: Reviewed on 12/27/1924 by Crystal Sultana [Tpn Per Pharmacy] 1 EACH EACH, 1 EACH MC PRN DAILY PRN for SEE COMMENTS for 30 Days, #30 Prescribed by: JEFFERSON XAVIER MD on 11/30/191613 Justicifation of Admission Dx: Justifications for Admission: Justification of Admission Dx: Yes Sepsis: Bacteremia ALE JONES MD Jan 10, 2020 11:37
== END 2020-01-09 17:15 | disposition home health service (06) | DRG 314 ==
LOC: ER 14:11 → 6 SOUTH 16:08 → 4 NORTH 12-27 15:27
PROVIDERS: ADMIT Internal Medicine; ATTEND Internal Medicine
PROC: 0D20XUZ Change Feeding Device in Upper Intestinal Tract, External Approach (ICD-10-PCS; 2019-12-28)
PROC: 0JPT3XZ Removal of Tunneled Vascular Access Device from Trunk Subcutaneous Tissue and Fascia, Percutaneous Approach (ICD-10-PCS; 2019-12-31)
PROC: 02PY33Z Removal of Infusion Device from Great Vessel, Percutaneous Approach (ICD-10-PCS; 2019-12-31)
PROC: B5181ZA Fluoroscopy of Superior Vena Cava using Low Osmolar Contrast, Guidance (ICD-10-PCS; 2019-12-31)
PROC: B24BZZ4 Ultrasonography of Heart with Aorta, Transesophageal (ICD-10-PCS; principal; 2020-01-01 14:30)
PROC: 0JH63XZ Insertion of Tunneled Vascular Access Device into Chest Subcutaneous Tissue and Fascia, Percutaneous Approach (ICD-10-PCS; 2020-01-08)
PROC: 02H633Z Insertion of Infusion Device into Right Atrium, Percutaneous Approach (ICD-10-PCS; 2020-01-08)
PROC: B5181ZA Fluoroscopy of Superior Vena Cava using Low Osmolar Contrast, Guidance (ICD-10-PCS; 2020-01-08)
PROC: B548ZZA Ultrasonography of Superior Vena Cava, Guidance (ICD-10-PCS; 2020-01-08)
DX: T80.211A Bloodstream infection due to central venous catheter, initial encounter (principal); A41.02 Sepsis due to Methicillin resistant Staphylococcus aureus; A41.01 Sepsis due to Methicillin susceptible Staphylococcus aureus; D61.818 Other pancytopenia; E46 Unspecified protein-calorie malnutrition; E56.1 Deficiency of vitamin K; I10 Essential (primary) hypertension; J45.909 Unspecified asthma, uncomplicated; K31.84 Gastroparesis; F32.9 Major depressive disorder, single episode, unspecified; F41.9 Anxiety disorder, unspecified; G43.909 Migraine, unspecified, not intractable, without status migrainosus; G89.29 Other chronic pain; K21.9 Gastro-esophageal reflux disease without esophagitis; Y84.8 Other medical procedures as the cause of abnormal reaction of the patient, or of later complication, without mention of misadventure at the time of the procedure; Z20.828 Contact with and (suspected) exposure to other viral communicable diseases; Z82.49 Family history of ischemic heart disease and other diseases of the circulatory system; Z90.49 Acquired absence of other specified parts of digestive tract; Z88.0 Allergy status to penicillin; Z88.2 Allergy status to sulfonamides; Z68.25 Body mass index [BMI] 25.0-25.9, adult
CPT/HCPCS: 36415; 36561; 36569; 36590; 49450; 49465; 71045; 76937; 77001; 80048; 80053; 80202; 81001; 81025; 82550; 82607; 83010; 83540; 83550; 83605; 83615; 85007; 85025; 85230; 85384; 85610; 85611; 85730; 87040; 87071; 87075; 87077; 87186; 87205; 87426; 93005; 93306; 93312; 93325; 96361; 96365; 96368; 96375; 99152; 99153; 99285; B4087; C1751; C1769; C1892; C1894; J0690; J0780; J0878; J1200; J2250; J2270; J2405; J2543; J2704; J3010; J3370; J3430; J3480; J3490; J7030; J7040; J7050; Q9966; G0378; U0003-CS

== ENCOUNTER 2020-01-11 19:15 | Emergency (ER) | payer OTHER ==
[~2020-01-11] VITALS: Ht 170.2 cm; Wt 69.6 kg
[~2020-01-11 19:15] MED LIST changes: +METO50TA6 PO
[2020-01-11] MEDS ORDERED: MORPHINE SULFATE 10 MG/5 ML ORAL SOLUTION. JT PRN ×2 (20:45→23:30)
[2020-01-11] MEDS ORDERED: METOCLOPRAMIDE ORAL SOLN 10 MG/10 ML SOLUTION. JT SCH (20:45)
[2020-01-11] MEDS ORDERED: METOCLOPRAMIDE ORAL SOLN 10 MG/10 ML SOLUTION. JT ONE ×2 (21:00→23:45)
[2020-01-11] MEDS ORDERED: METO10TA81 JT (23:19)
--- NOTE | 2020-01-11 23:19 | PHYS DOC ---
Past Medical History Past Medical History: GERD, Hypertension, Migraines, Other Additional Past Medical Histor: chronic ABD pain and N/V, GASTROPARESIS Past Surgical History: Cholecystectomy, Tonsillectomy, Other Additional Past Surgical Histo: G-tube x20; J-tube Smoking Status: Never Smoker Alcohol Use: None General Adult EDM: Chief Complaint: POST-OP PROBLEM HPI: HPI: Patient is a 19-year-old female who presents to the emergency room complaining of nausea and pain around her port. Her port was replaced earlier this week. She has had pain since the replacement. The pain is unchanged. It feels like an achy pain. Family states they know that there was some inflammation went the port was changed. She is tried Tylenol at home without relief. Patient has chronic nausea. She has been taking her Zofran but still has nausea. She has not had any vomiting. Patient is on TPN. She is not having any fever. She denies any redness or drainage from around the port. Review of Systems: Review of Systems: General: Denies fever, chills, sweats, fatigue Eyes: Denies drainage, blurred vision, eye redness HENT: Denies rhinorrhea, sore throat, earache Respiratory: Denies cough, shortness of breath, wheezing Cardiac: Denies edema, palpitations, chest pain GI: Denies abdominal pain, vomiting reports nausea MSK: Denies back pain, neck pain Skin: Denies rash, jaundice Neuro: Denies headache, dizziness Psychiatric: Denies SI/HI Heart Score: Risk Factors: Risk Factors: DM, Current or recent (<one month) smoker, HTN, HLP, family history of CAD, obesity. Risk Scores: Score 0 - 3: 2.5% MACE over next 6 weeks - Discharge Home Score 4 - 6: 20.3% MACE over next 6 weeks - Admit for Clinical Observation Score 7 - 10: 72.7% MACE over next 6 weeks - Early Invasive Strategies Current Medications: Current Medications Medications (Trade) Dose Ordered Sig/Kel Start Time Stop Time Status Last Admin Dose Admin Metoclopramide HCl (Reglan Oral Solution) 10 mg 1X 01/11/20 23:15 UNV Morphine Sulfate (Morphine Oral Solution) 10 mg 1X PRN 01/11/20 23:15 UNV Allergies: Allergies: Allergies Coded Allergies Type Severity Reaction Last Updated Verified Penicillins Allergy Intermediate LIGHT RASH CHILD 12/29/19 Yes Sulfa (Sulfonamide Antibiotics) Allergy Intermediate 08/29/19 Yes I S O L A T I O N *CONTACT* Allergy Unknown 12/31/19 Yes Physical Exam: PE: General: Awake, alert, NAD. Well Nourished, well hydrated. Cooperative. PICC line in place HEENT: Atraumatic, EOMI, PERRL, airway patent, moist oral mucosa Neck: Supple, trachea midline Respiratory: CTA bilaterally, normal effort, no wheezing/crackles CV: RRR, no murmur, cap refill <2 GI: Soft, nondistended, nontender, no masses MSK: No obvious deformities Skin: Warm, dry, intact. Port in place in right chest. Incision is clean, dry, intact, no signs of erythema. Neuro: A&O x3, speech NL, sensory and motor grossly intact, no focal deficits Psych: Normal affect, normal mood, not suicidal or homicidal Current Patient Data: Vital Signs: Vital Signs Date Time Temp Pulse Resp B/P (MAP) Pulse Ox O2 Delivery O2 Flow Rate FiO2 01/11/20 21:31 18 100 Room Air EKG: EKG: [] Radiology/Procedures: Radiology/Procedures: [] Course & Med Decision Making: Course & Med Decision Making pertinent Labs and Imaging studies reviewed. (See chart for details) Patient is a 19-year-old female presents to the emergency room complaining of pain around her port and nausea. Patient's nausea is chronic. She states it is unchanged. She is not had any vomiting. She states her home medications just are not controlling it. She will be given Reglan through her J-tube for this. Patient is complaining of pain around her port site. This is unchanged pain since the port was placed. There is no new pain. She is not had any fever. There is no signs of infection at this time. This is likely normal postop pain. She will be given a single dose of pain medication. I did discuss her with her surgeon who states that patient is okay to go home with symptomatic control. Patient's test results and vitals while in the ED were fully reviewed and discussed with the patient. Patient is stable and at this time does not need admission to the hospital. We have discussed strict return precautions and the importance of following up with their Primary Care Physician. Patient stated understanding and was given an opportunity to ask any questions. Patient is in agreement with plan. Dragon Disclaimer: Dragon Disclaimer: This electronic medical record was generated, in whole or in part, using a voice recognition dictation system. Departure Departure Impression: Primary Impression: Chronic pain Additional Impression: Chronic nausea Disposition: HOME, SELF-CARE Condition: STABLE Referrals: RENEA FUNG COMPUTER SOFTWARE ENGINEER (PCP) Patient Instructions: Chronic Pain Management, Nausea, Adult Scripts Metoclopramide Hcl (REGLAN) 10 Mg Tablet 1 TAB JT TID PRN for NAUSEA for 30 Days, #20 TAB 0 Refills before food and bedtime Prov: KIERAN CRAIN MD 01/11/20 Justicifation of Admission Dx: Justifications for Admission: Justification of Admission Dx: Yes Sepsis: Bacteremia KIERAN CRAIN MD Jan 11, 2020 23:19
[2020-01-11 23:45] VITALS: BP 98/56
== END 2020-01-11 23:58 | disposition home or self-care (01) ==
LOC: ER 19:15
DX: G89.28 Other chronic postprocedural pain (principal); R11.0 Nausea; K21.9 Gastro-esophageal reflux disease without esophagitis; I10 Essential (primary) hypertension; G43.909 Migraine, unspecified, not intractable, without status migrainosus; Z90.49 Acquired absence of other specified parts of digestive tract; Z90.89 Acquired absence of other organs; Z98.890 Other specified postprocedural states; Z88.0 Allergy status to penicillin; Z88.2 Allergy status to sulfonamides; Z88.8 Allergy status to other drugs, medicaments and biological substances
CPT/HCPCS: 99285; J8597

== ENCOUNTER 2020-02-01 14:58 | Emergency (ER) | payer OTHER ==
[~2020-02-01] VITALS: Ht 170.2 cm; Wt 72.7 kg
[~2020-02-01 14:58] MED LIST changes: +METO10TA81 JT
[2020-02-01] MEDS ORDERED: IOHEXOL 240 MG/ML 50ML VIAL. IT ONE (20:00)
[2020-02-01] MEDS ORDERED: IOHEXOL 300 MG/ML 50 ML VIAL. IT ONE (20:00)
--- NOTE | 2020-02-01 20:07 | RAD ---
EXAM: Supine AP view of the abdomen DATE: 02/01/2020 7:35 PM INDICATION: Reason: with omni to check g-tube placement, omni 300, 50 ml ij / Spl. Instructions: / History: COMPARISON: 08/30/2019 FINDINGS/ IMPRESSION: Contrast was injected into the gastrostomy tube and seen within the stomach. No definite extraluminal contrast is seen. A jejunostomy tube is also seen. Moderate colonic stool content. No bowel obstruction. No abnormal soft tissue mass effect. No suspicious calcifications are seen. Evaluation for free intraperitoneal gas is limited on this supine exam. Electronically signed by: Lucius Jesus MD (02/01/2020 8:04 PM) ROZ
--- NOTE | 2020-02-01 20:37 | PHYS DOC ---
Past Medical History Past Medical History: GERD, Hypertension, Migraines, Other Additional Past Medical Histor: chronic ABD pain and N/V, GASTROPARESIS (GIOVANNI WOOD APRN) Past Surgical History: Cholecystectomy, Tonsillectomy, Other Additional Past Surgical Histo: G-tube x20; J-tube (GIOVANNI WOOD APRN) Smoking Status: Never Smoker Alcohol Use: None (GIOVANNI WOOD APRN) General Adult EDM: Chief Complaint: GTUBE REPLACEMENT/MALFUNCTION HPI: HPI: Patient is a 19 year old female who presents to the emergency department with reports of accidentally pulling out her G-tube today. Patient states that she was able to put her G-tube back in but she was told by her surgeon Dr. Mohr to come to the ER to have her G-tube checked because she thinks that it is displaced. Patient states she has not tried using her G-tube since she reinserted it. She denies any fever, bleeding, or abnormal drainage from the G- tube site. The patient states there has been a little bit of erythema around the insertion site that she noticed today. She currently rates her pain 8 out of 10 on the pain scale, she denies any alleviating factors she states that the G-tube site hurts worse if she touches it (GIOVANNI WOOD APRN) Review of Systems: Review of Systems: Constitutional: Denies fever or chills. [] GI: Denies nausea, vomiting; see HPI Integument: See HPI Psychiatric: Denies depression or anxiety Complete ROS is negative unless otherwise stated in the HPI.. [] (GIOVANNI WOOD APRN) Heart Score: Risk Factors: Risk Factors: DM, Current or recent (<one month) smoker, HTN, HLP, family his tory of CAD, obesity. Risk Scores: Score 0 - 3: 2.5% MACE over next 6 weeks - Discharge Home Score 4 - 6: 20.3% MACE over next 6 weeks - Admit for Clinical Observation Score 7 - 10: 72.7% MACE over next 6 weeks - Early Invasive Strategies (GIOVANNI WOOD APRN) Current Medications: Current Medications Medications (Trade) Dose Ordered Sig/Kel Start Time Stop Time Status Last Admin Dose Admin Iohexol (Omnipaque 240 Mg/ml) 50 ml 1X ONCE 02/01/20 20:00 02/01/20 20:01 DC Iohexol (Omnipaque 300 Mg/ml) 50 ml 1X ONCE 02/01/20 20:00 02/01/20 20:01 DC (GIOVANNI WOOD APRN) Allergies: Allergies: Allergies Coded Allergies Type Severity Reaction Last Updated Verified Penicillins Allergy Intermediate LIGHT RASH CHILD 12/29/19 Yes Sulfa (Sulfonamide Antibiotics) Allergy Intermediate 08/29/19 Yes I S O L A T I O N *CONTACT* Allergy Unknown 12/31/19 Yes (GIOVANNI WOOD APRN) Physical Exam: PE: Constitutional: Well developed, well nourished, no acute distress, non-toxic appearance. [] HENT: Normocephalic, atraumatic, bilateral external ears normal, nose normal. [] Eyes: PERRLA, EOMI, conjunctiva normal, no discharge. [] Neck: Normal range of motion, no stridor. [] Cardiovascular:Heart rate regular rhythm Lungs & Thorax: Respirations even and unlabored, no retractions, no respiratory distress Abdomen: soft, no tenderness; G-tube and J-tube present in abdomen, Skin: Warm, dry; mild erythema noted to the lower aspect of the G-tube insertion site consistent with early skin infection Extremities: No cyanosis, ROM intact, no edema. [] Neurologic: Alert and oriented X 3, no focal deficits noted. [] Psychologic: Affect normal, judgement normal, mood normal. [] (GIOVANNI WOOD APRN) Current Patient Data: Vital Signs: Vital Signs Date Time Temp Pulse Resp B/P (MAP) Pulse Ox O2 Delivery O2 Flow Rate FiO2 02/01/20 18:35 97.9 83 14 116/56 (76) 99 Room Air 97.9 (GIOVANNI WOOD APRN) EKG: EKG: [] (GIOVANNI WOOD APRN) Radiology/Procedures: Radiology/Procedures: PROCEDURE: KUB EXAM: Supine AP view of the abdomen DATE: 02/01/2020 7:35 PM INDICATION: Reason: with omni to check g-tube placement, omni 300, 50 ml ij / Spl. Instructions: / History: COMPARISON: 08/30/2019 FINDINGS/ IMPRESSION: Contrast was injected into the gastrostomy tube and seen within the stomach. No definite extraluminal contrast is seen. A jejunostomy tube is also seen. Moderate colonic stool content. No bowel obstruction. No abnormal soft tissue mass effect. No suspicious calcifications are seen. Evaluation for free intraperitoneal gas is limited on this supine exam. Electronically signed by: Lucius Jesus MD (02/01/2020 8:04 PM) [facility] (GIOVANNI WOOD APRN) Course & Med Decision Making: Course & Med Decision Making Pertinent Labs and Imaging studies reviewed. (See chart for details) [] (GIOVANNI WOOD APRN) Course & Med Decision Making I have reviewed the PA/AUTOMOTIVE SERVICE MANAGEMENT TEACHER's note and Plan of Care. I was available for consultation as needed during the patient's visit in the emergency department. I agree with the clinical impression, plans and disposition. (ENDER WHELAN MD) Dragon Disclaimer: Dragon Disclaimer: This electronic medical record was generated, in whole or in part, using a voice recognition dictation system. (GIOVANNI WOOD APRN) Departure Departure Impression: Primary Impression: Gastrostomy tube in place Disposition: HOME, SELF-CARE Condition: STABLE Referrals: RENEA FUNG AUTOMOTIVE SERVICE MANAGEMENT TEACHER (PCP) Patient Instructions: Gastrostomy Tube, Adult Additional Instructions: Your G-tube is in place. I recommend that you apply antibiotic ointment to the red area as needed. Follow-up with your primary care doctor as planned. Return to the emergency room if your symptoms worsen, the redness increases or you develop a fever. Justicifation of Admission Dx: Justifications for Admission: Justification of Admission Dx: N/A Sepsis: Bacteremia (GIOVANNI WOOD APRN) GIOVANNI WOOD APRN Feb 01, 2020 20:37 ENDER WHELAN MD Feb 01, 2020 22:53
[2020-02-01 21:00] VITALS: BP 137/63
== END 2020-02-01 21:30 | disposition home or self-care (01) ==
LOC: ER 14:58
DX: Z43.1 Encounter for attention to gastrostomy (principal); K21.9 Gastro-esophageal reflux disease without esophagitis; I10 Essential (primary) hypertension; G43.909 Migraine, unspecified, not intractable, without status migrainosus; G89.29 Other chronic pain; Z90.49 Acquired absence of other specified parts of digestive tract; Z88.0 Allergy status to penicillin; Z88.2 Allergy status to sulfonamides; Z91.041 Radiographic dye allergy status
CPT/HCPCS: 74018; 99283; Q9966

== ENCOUNTER 2020-02-07 13:32 | Emergency (ER) | payer OTHER ==
[~2020-02-07] VITALS: Ht 170.2 cm; Wt 70.0 kg
--- NOTE | 2020-02-07 14:21 | PHYS DOC ---
Past Medical History Past Medical History: GERD, Hypertension, Migraines, Other Additional Past Medical Histor: chronic ABD pain and N/V, GASTROPARESIS Past Surgical History: Cholecystectomy, Tonsillectomy, Other Additional Past Surgical Histo: G-tube x20; J-tube Smoking Status: Never Smoker Alcohol Use: None General Adult EDM: Chief Complaint: GTUBE REPLACEMENT/MALFUNCTION HPI: HPI: 19 yo F PMH gastroparesis, presents to the ED with complaints of pain at her gastric tube site, concern for pus coming out. G tube was placed 3 months ago, J tube [address] Santana. Feeds via port and vents with both G/J tubes. Pt was seen in the ED 6 days ago and states her G-tube fell out and she replaced it, was seen for abdominal pain. Abdominal x-ray with contrast with appropriate G- tube position. Patient states after that ed visit it fell out again, and patient inserted it. Is concerned for worsening abdominal pain and pus coming from G-tube site. Request pain medications. LMP 01/19. Review of Systems: Review of Systems: Constitutional: Denies fever or chills. [] Eyes: Denies change in visual acuity. [] HENT: Denies nasal congestion or sore throat. [] Respiratory: Denies cough or shortness of breath. [] Cardiovascular: Denies chest pain or edema. [] GI: Denies nausea, vomiting, bloody stools or diarrhea. [] : Denies dysuria. [] Musculoskeletal: Denies back pain or joint pain. [] Integument: Denies rash. [] Neurologic: Denies headache, focal weakness or sensory changes. [] Endocrine: Denies polyuria or polydipsia. [] Lymphatic: Denies swollen glands. [] Psychiatric: Denies depression or anxiety. [] Heart Score: Risk Factors: Risk Factors: DM, Current or recent (<one month) smoker, HTN, HLP, family history of CAD, obesity. Risk Scores: Score 0 - 3: 2.5% MACE over next 6 weeks - Discharge Home Score 4 - 6: 20.3% MACE over next 6 weeks - Admit for Clinical Observation Score 7 - 10: 72.7% MACE over next 6 weeks - Early Invasive Strategies Allergies: Allergies: Allergies Coded Allergies Type Severity Reaction Last Updated Verified Penicillins Allergy Intermediate LIGHT RASH CHILD 12/29/19 Yes Sulfa (Sulfonamide Antibiotics) Allergy Intermediate 08/29/19 Yes I S O L A T I O N *CONTACT* Allergy Unknown 12/31/19 Yes Physical Exam: PE: Constitutional: Well developed, well nourished, no acute distress, non-toxic appearance. [] HENT: Normocephalic, atraumatic, Eyes: EOMI, conjunctiva normal, no discharge. [] Neck: Normal range of motion, supple, Cardiovascular:Heart rate regular rhythm, no murmur [] Lungs & Thorax: Bilateral breath sounds clear to auscultation [] Abdomen: Bowel sounds normal, soft, no tenderness, no masses, no pulsatile masses. [] normal G tube secretions, skin w/no rash Skin: Warm, dry, no erythema, no rash. [] Back: No tenderness, no CVA tenderness. [] Extremities: No tenderness, no cyanosis, no clubbing, ROM intact, no edema. [] Neurologic: Alert and oriented X 3, normal motor function, normal sensory function, no focal deficits noted. [] Psychologic: Affect normal, judgement normal, mood normal. [] Current Patient Data: Vital Signs: Vital Signs Date Time Temp Pulse Resp B/P (MAP) Pulse Ox O2 Delivery O2 Flow Rate FiO2 02/07/20 13:46 97.7 97 18 110/69 (83) 97 Room Air 97.7 EKG: EKG: [] Radiology/Procedures: Radiology/Procedures: IMAGING REPORT Signed PATIENT: SUNITHA SCHULTZ ACCOUNT: [id number] : 2000 LOCATION: ER AGE: 19 SEX: F EXAM STATUS: REG ER ORD. PHYSICIAN: SALVATORE MEJIA DO REASON: pus from g tube with pain PROCEDURE: CT ABD PELV W/ IV CONTRST ONLY Exam: CT abdomen/pelvis with intravenous contrast Indication: Post from G-tube with pain Comparison: CT abdomen pelvis 11/19/2019 Technique: Helical CT imaging performed of the abdomen and pelvis after the intravenous administration of 75 mL Omnipaque 300 contrast. Sagittal and coronal reformats were obtained. One or more of the following individualized dose reduction techniques were utilized for this examination: 1. Automated exposure control 2. Adjustment of the mA and/or kV according to patient size 3. Use of iterative reconstruction technique. Findings: Lower chest: Lung bases are clear. Heart is normal in size. Liver: Liver is normal in size. No liver lesion. Gallbladder/Biliary Tree: Post cholecystectomy. Bile ducts are normal. Pancreas: Normal. Spleen: Calcified splenic granulomas. No splenomegaly. Adrenal Glands: Normal. Kidneys/Ureters/Bladder: New mild bilateral hydronephrosis. No urolithiasis visualized. Ureters are unremarkable. Bladder is distended. Reproductive Organs: Unremarkable. Stomach, small bowel, and colon: A gastrostomy tube is unchanged in position. No evidence of complication. The jejunostomy tube is unchanged. No small bowel obstruction. The colon is unremarkable. Vasculature: Abdominal aorta and inferior vena cava are normal. Lymph Nodes: No lymphadenopathy. Peritoneum and retroperitoneum: Small amount of free fluid in the pelvis, which may be physiologic. No fluid collection. No pneumoperitoneum. Bones: No acute osseous abnormality. Impression: 1. Unchanged position of gastrostomy tube and jejunostomy tube without definite complication. 2. New mild bilateral hydronephrosis and mild distention of the urinary bladder. Electronically signed by: Lisa Johnson MD (02/07/2020 4:43 PM) [id number] DICTATED and SIGNED BY: LISA JOHNSON MD DATE: 02/07/20 164 Course & Med Decision Making: Course & Med Decision Making Pertinent Labs and Imaging studies reviewed. (See chart for details) Patient presents the ED with complaints abdominal pain around her G-tube and concern for purulent discharge. Discharge is consistent with appropriate proteinaceous exudate from her NG tube, no purulence expressed. No cellulitis on physical exam. I did discuss this with surgery on-call Dr. Land who recommended diaper rash ointment and to call Dr. Santana in the morning. Patient well-appearing with no electrolyte abnormalities. Strict ED return precautions given for severe dehydration or intractable pain. Encouraged urgent outpatient follow-up with PMD and surgery. Life-threatening processes were considered but are low suspicion at this time, given history and physical exam. Pt was educated on all prescription medications and adverse effects. All patient's questions were answered and pt was stable at time of discharge. Differential includes aortic dissection, aortic aneurysm, acute coronary syndro me, surgical abdomen (appendicitis, cholecystitis, ischemic bowel, strangulated hernia, etc), bowel obstruction or volvulus, bladder outlet obstruction, gastrointestinal bleeding, inflammatory bowel disease, peptic ulcer disease, sepsis, diverticular disease, ureterolithiasis, nephrolithiasis, ovarian or testicular torsion, ectopic , vaginal hemorrhage of infection I spoken with the patient and her caregivers. I explained the patient's condition, diagnoses and treatment plan based on the information available to me at this time. I have answered the patient and her caregiver's questions and addressed any concerns. The patient and her caregivers have a good understanding of patient's diagnosis, condition and treatment plan as can be expected at this point. Vital signs have been stable. Patient's condition is stable and appropriate for discharge from the emergency department. Patient will pursue further outpatient evaluation with primary care physician or other designated or consulting physician as outlined in the discharge instructions. The patient and/or caregivers are agreeable to this plan of care and follow-up instructions have been explained in detail. The patient and/or caregivers have received these instructions in written form and have expressed an understanding of the discharge instructions. The patient and/or caregivers are aware that any significant change of condition or worsening of symptoms should prompt immediate return to this or the closest emergency department or call to 911. Pooja Disclaimer: [employer] Disclaimer: This electronic medical record was generated, in whole or in part, using a voice recognition dictation system. Departure Departure Impression: Primary Impression: Gastrostomy tube in place Additional Impression: Abdominal pain Disposition: 01 HOME, SELF-CARE Condition: STABLE Referrals: RENEA FUNG KERSEY DEPARTMENT SUPERVISOR (PCP) Patient Instructions: Abdominal Pain Additional Instructions: Harrison Santana MD -in 24-48 hours Primary Specialties General [facility] Address: [address] [place] [id number] Justicifation of Admission Dx: Justifications for Admission: Justification of Admission Dx: N/A Sepsis: Bacteremia SALVATORE MEJIA DO Feb 07, 2020 14:21
[2020-02-07 14:24] LABS: BASO % 0 % (0-3); EOS % 1 % (0-3); HEMATOCRIT 28.1 % (36.0-47.0); HEMOGLOBIN 9.5 g/dL (12.0-15.5); LYMPH # 1.7 x10^3/uL (1.0-4.8); LYMPH % 40 % (24-48); MEAN CORPUSCULAR HEMOGLOBIN 31 pg (25-35); MEAN CORPUSCULAR HGB CONC 34 g/dL (31-37); MEAN CORPUSCULAR VOLUME 92 fL (79-100); MONO # 0.3 x10^3/uL (0.0-1.1); MONO % 6 % (0-9); NEUT # 2.3 x10^3/uL (1.8-7.7); NEUT % 53 % (31-73); PLATELET COUNT 133 x10^3/uL (140-400); RED BLOOD COUNT 3.04 x10^6/uL (3.50-5.40); RED CELL DISTRIBUTION WIDTH 14.6 % (11.5-14.5); WHITE BLOOD COUNT 4.4 x10^3/uL (4.0-11.0)
[2020-02-07 14:38] LABS: CALCIUM 8.6 mg/dL (8.5-10.1); CREATININE 0.6 mg/dL (0.6-1.0); GFR 126.2
[2020-02-07 14:44] LABS: ALBUMIN 3.4 g/dL (3.4-5.0); ALBUMIN/GLOBULIN RATIO 1.1 (1.0-1.7); TOTAL BILIRUBIN 0.2 mg/dL (0.2-1.0); TOTAL PROTEIN 6.5 g/dL (6.4-8.2)
[2020-02-07] MEDS ORDERED: IOHEXOL 300 MG/ML 100ML VIAL. IV ONE (15:15)
[2020-02-07] MEDS ORDERED: CONTRAST GIVEN. MC PRN (15:15)
[2020-02-07] MEDS ORDERED: KETOROLAC 15 MG/ML VIAL. IVP ONE (16:30)
--- NOTE | 2020-02-07 16:46 | RAD ---
Exam: CT abdomen/pelvis with intravenous contrast Indication: Post from G-tube with pain Comparison: CT abdomen pelvis 11/19/2019 Technique: Helical CT imaging performed of the abdomen and pelvis after the intravenous administration of 75 mL Omnipaque 300 contrast. Sagittal and coronal reformats were obtained. One or more of the following individualized dose reduction techniques were utilized for this examination: 1. Automated exposure control 2. Adjustment of the mA and/or kV according to patient size 3. Use of iterative reconstruction technique. Findings: Lower chest: Lung bases are clear. Heart is normal in size. Liver: Liver is normal in size. No liver lesion. Gallbladder/Biliary Tree: Post cholecystectomy. Bile ducts are normal. Pancreas: Normal. Spleen: Calcified splenic granulomas. No splenomegaly. Adrenal Glands: Normal. Kidneys/Ureters/Bladder: New mild bilateral hydronephrosis. No urolithiasis visualized. Ureters are unremarkable. Bladder is distended. Reproductive Organs: Unremarkable. Stomach, small bowel, and colon: A gastrostomy tube is unchanged in position. No evidence of complication. The jejunostomy tube is unchanged. No small bowel obstruction. The colon is unremarkable. Vasculature: Abdominal aorta and inferior vena cava are normal. Lymph Nodes: No lymphadenopathy. Peritoneum and retroperitoneum: Small amount of free fluid in the pelvis, which may be physiologic. No fluid collection. No pneumoperitoneum. Bones: No acute osseous abnormality. Impression: 1. Unchanged position of gastrostomy tube and jejunostomy tube without definite complication. 2. New mild bilateral hydronephrosis and mild distention of the urinary bladder. Electronically signed by: Lisa Johnson MD (02/07/2020 4:43 PM) [id number]
[2020-02-07 17:38] VITALS: BP 107/57
== END 2020-02-07 18:30 | disposition home or self-care (01) ==
LOC: ER 13:32
DX: K94.23 Gastrostomy malfunction (principal); R10.9 Unspecified abdominal pain; N13.30 Unspecified hydronephrosis; N32.89 Other specified disorders of bladder; G89.29 Other chronic pain; K21.9 Gastro-esophageal reflux disease without esophagitis; I10 Essential (primary) hypertension; G43.909 Migraine, unspecified, not intractable, without status migrainosus; Z90.49 Acquired absence of other specified parts of digestive tract; Z88.0 Allergy status to penicillin; Z88.2 Allergy status to sulfonamides; Z91.041 Radiographic dye allergy status
CPT/HCPCS: 36415; 74177; 80053; 84702; 85025; 96374; 99285; J1885; Q9967

== ENCOUNTER 2020-05-02 23:01 | Emergency (ER) | payer OTHER, MEDICAID ==
[~2020-05-02] VITALS: Ht 170.2 cm; Wt 70.4 kg
[~2020-05-02 23:01] MED LIST changes: +BECL10.6 IH; +MIRT15TA3 PO; +MIRT30TA93 PO; +SERT50TA8 PO
[2020-05-03 00:17] VITALS: BP 121/59
--- NOTE | 2020-05-03 00:33 | RAD ---
XR CHEST 1V History: Reason: port check / Spl. Instructions: / History: Comparison: December 26, 2019 Findings: No consolidation or pleural effusion. Normal heart size. No pneumothorax. Surgical clips right upper quadrant. Left chest wall port with tip projecting over the mid SVC. Impression: 1. No acute cardiopulmonary process. 2. Left chest wall port. Electronically signed by: Brendan Barros DO (05/03/2020 12:30 AM) [facility]
--- NOTE | 2020-05-03 00:54 | ED.ADGEN ---
Past Medical History Past Medical History: GERD, Hypertension, Migraines, Other Additional Past Medical Histor: chronic ABD pain and N/V, GASTROPARESIS Past Surgical History: Cholecystectomy, Tonsillectomy, Other Additional Past Surgical Histo: G-tube x20; J-tube Smoking Status: Never Smoker Alcohol Use: None General Adult EDM: Chief Complaint: OTHER COMPLAINTS HPI: HPI: Patient is a 20-year-old female who presents to the emergency room complaining of concern that her port is having issues. She had the port put in yesterday. She states that she tried to flush it after giving herself Protonix earlier and she felt pain and that there was a bulge right underneath her port. This is a replacement cord after her last port was infected. She denies any other complaints. Review of Systems: Review of Systems: Complete ROS is negative unless otherwise documented in HPI Allergies: Allergies: Allergies Coded Allergies Type Severity Reaction Last Updated Verified Penicillins Allergy Intermediate LIGHT RASH CHILD 12/29/19 Yes Sulfa (Sulfonamide Antibiotics) Allergy Intermediate 08/29/19 Yes I S O L A T I O N *CONTACT* Allergy Unknown 12/31/19 Yes Physical Exam: PE: General: Awake, alert, NAD. Well Nourished, well hydrated. Cooperative HEENT: Atraumatic, EOMI, PERRL, airway patent, moist oral mucosa Neck: Supple, trachea midline Respiratory: CTA bilaterally, normal effort, no wheezing/crackles small amount of redness over port site consistent with postsurgical changes CV: RRR, no murmur, cap refill <2 GI: Soft, nondistended, nontender, no masses MSK: No obvious deformities Skin: Warm, dry, intact Neuro: A&O x3, speech NL, sensory and motor grossly intact, no focal deficits Psych: Normal affect, normal mood, not suicidal or homicidal, Current Patient Data: Vital Signs: Vital Signs Date Time Temp Pulse Resp B/P (MAP) Pulse Ox O2 Delivery O2 Flow Rate FiO2 05/03/20 00:17 98.3 90 20 121/59 (79) 100 Room Air 98.3 EKG: EKG: [] Heart Score: Risk Factors: Risk Factors: DM, Current or recent (<one month) smoker, HTN, HLP, family history of CAD, obesity. Risk Scores: Score 0 - 3: 2.5% MACE over next 6 weeks - Discharge Home Score 4 - 6: 20.3% MACE over next 6 weeks - Admit for Clinical Observation Score 7 - 10: 72.7% MACE over next 6 weeks - Early Invasive Strategies Radiology/Procedures: Radiology/Procedures: [] Course & Med Decision Making: Course & Med Decision Making Pertinent Labs and Imaging studies reviewed. (See chart for details) Patient is 20-year-old female who presents to the emergency room after feeling like her port had a knot under it when she flushed it. Patient's port was flushed in the emergency room without any difficulty. There does not appear to be a knot under the port. Chest x-ray was done which shows that the port is in proper position. There does not appear to be any infection. Patient's test results and vitals while in the ED were fully reviewed and discussed with the patient. Patient is stable and at this time does not need admission to the ospital. We have discussed strict return precautions and the importance of following up with their Primary Care Physician. Patient stated understanding and was given an opportunity to ask any questions. Patient is in agreement with plan. Pooja Disclaimer: Pooja Disclaimer: This electronic medical record was generated, in whole or in part, using a voice recognition dictation system. Departure Departure Impression: Primary Impression: Post-operative pain Disposition: 01 DC HOME SELF CARE/HOMELESS Condition: STABLE Referrals: RENEA FUNG ARCADE TECHNICIAN (PCP) Patient Instructions: Implanted Port Instructions KIERAN CRAIN MD May 03, 2020 00:54
== END 2020-05-03 00:59 | disposition home or self-care (01) ==
LOC: ER 23:01
DX: G89.18 Other acute postprocedural pain (principal); K21.9 Gastro-esophageal reflux disease without esophagitis; I10 Essential (primary) hypertension; G43.909 Migraine, unspecified, not intractable, without status migrainosus; Z90.49 Acquired absence of other specified parts of digestive tract; Z90.89 Acquired absence of other organs; Z98.890 Other specified postprocedural states; Z88.0 Allergy status to penicillin; Z88.2 Allergy status to sulfonamides; Z88.8 Allergy status to other drugs, medicaments and biological substances
CPT/HCPCS: 71045; 99283

== ENCOUNTER → 2020-05-14 | Outpatient (CLI) | payer OTHER, MEDICAID ==
[2020-05-03 00:17] VITALS: BP 121/59
[~2020-05-14] MED LIST changes: +BOTOX; +FLUT1BLS3 IH; +FREM225A SQ; +GABA600T7 PO; +HYDR50TA PO; +MIDO5TAB4 PO; +RIZA10TA PO; +SERT50TA PO; +TIZA2CAP PO
[2020-05-14 09:58] LABS: BASO % 0 % (0-3); EOS # 0.1 x10^3/uL (0.0-0.7); EOS % 1 % (0-3); HEMATOCRIT 28.7 % (36.0-47.0); HEMOGLOBIN 9.6 g/dL (12.0-15.5); LYMPH % 31 % (24-48); MEAN CORPUSCULAR HEMOGLOBIN 29 pg (25-35); MEAN CORPUSCULAR HGB CONC 34 g/dL (31-37); MEAN CORPUSCULAR VOLUME 88 fL (79-100); MONO # 0.4 x10^3/uL (0.0-1.1); MONO % 7 % (0-9); NEUT # 3.9 x10^3/uL (1.8-7.7); NEUT % 61 % (31-73); PLATELET COUNT 180 x10^3/uL (140-400); RED BLOOD COUNT 3.28 x10^6/uL (3.50-5.40); RED CELL DISTRIBUTION WIDTH 16.5 % (11.5-14.5); WHITE BLOOD COUNT 6.4 x10^3/uL (4.0-11.0)
[2020-05-14 10:07] LABS: CALCIUM 9.1 mg/dL (8.5-10.1); CREATININE 0.5 mg/dL (0.6-1.0); GFR 154.3; POTASSIUM 4.4 mmol/L (3.5-5.1)
[2020-05-14 10:13] LABS: ALBUMIN 3.6 g/dL (3.4-5.0); ALBUMIN/GLOBULIN RATIO 1.1 (1.0-1.7); TOTAL BILIRUBIN 0.2 mg/dL (0.2-1.0); TOTAL PROTEIN 6.9 g/dL (6.4-8.2)
== END ==
LOC: ONCLAB 09:31
PROVIDERS: ATTEND Internal Medicine Hematology & Oncology
DX: D64.9 Anemia, unspecified (principal); D69.59 Other secondary thrombocytopenia
CPT/HCPCS: 36415; 80053; 82607; 82746; 85025; 85611; 85730

== ENCOUNTER 2020-05-21 11:59 | Outpatient (CLI) | payer OTHER, MEDICAID ==
[~2020-05-21] VITALS: Ht 170.2 cm; Wt 68.0 kg
[~2020-05-21 11:59] MED LIST changes: -BOTOX; -FLUT1BLS3 IH; -FREM225A SQ; -GABA600T7 PO; -HYDR50TA PO; +IOHEXOL 240 MG/ML 50ML VIAL. ONE; -MIDO5TAB4 PO; +MIRT-7 PO; -MIRT15TA3 PO; -RIZA10TA PO; +SERT-267 PO; -SERT50TA PO; -SERT50TA8 PO; -TIZA2CAP PO
[2020-05-21] MEDS ORDERED: MIDO5TAB4 PO (12:32)
[2020-05-21] MEDS ORDERED: GABA600T7 PO (12:32)
[2020-05-21 12:35] LABS: BASO % 0 % (0-3); EOS # 0.1 x10^3/uL (0.0-0.7); EOS % 1 % (0-3); HEMATOCRIT 30.3 % (36.0-47.0); LYMPH # 2.3 x10^3/uL (1.0-4.8); LYMPH % 35 % (24-48); MEAN CORPUSCULAR HEMOGLOBIN 29 pg (25-35); MEAN CORPUSCULAR HGB CONC 33 g/dL (31-37); MEAN CORPUSCULAR VOLUME 88 fL (79-100); MONO # 0.3 x10^3/uL (0.0-1.1); MONO % 5 % (0-9); NEUT # 3.9 x10^3/uL (1.8-7.7); NEUT % 59 % (31-73); PLATELET COUNT 133 x10^3/uL (140-400); RED BLOOD COUNT 3.45 x10^6/uL (3.50-5.40); RED CELL DISTRIBUTION WIDTH 16.2 % (11.5-14.5); WHITE BLOOD COUNT 6.7 x10^3/uL (4.0-11.0)
[2020-05-21 12:39] VITALS: BP 106/60
[2020-05-21 12:48] LABS: PROTHROMBIN TIME PATIENT 13.7 SEC (11.7-14.0)
[2020-05-21] MEDS ORDERED: MIDAZOLAM HCL/PF 2 MG/2 ML VIAL. ONE ×2 (13:10→13:40)
[2020-05-21] MEDS ORDERED: fentaNYL PF VIAL 100 MCG/2 ML VIAL ONE ×2 (13:10→13:40)
[2020-05-21] MEDS ORDERED: IOHEXOL 240 MG/ML 50ML VIAL. IJ ONE (13:45)
[2020-05-21] MEDS ORDERED: CONTRAST GIVEN. MC PRN (13:45)
[2020-05-21] MEDS: MIDAZOLAM HCL/PF 2 MG/2 ML VIAL. IV ONE ×2 (13:45→13:59)
[2020-05-21] MEDS ORDERED: fentaNYL PF VIAL 100 MCG/2 ML VIAL IV ONE (13:45)
--- NOTE | 2020-05-21 13:55 | PDOC ---
MODERATE SEDATION ASSESSMENT RISKS/ALTERNATIVES Risks/Alternatives Risks and alternatives of this type of sedation and procedure discussed with: RISK/ALTERNATIVES: Patient H & P ON CHART H & P H & P on chart and reviewed for co-morbid conditions and appropriate labs. H&P ON CHART: Yes STATUS PREG STATUS ASSESSED: Yes MEDS/ALLERGIES REVIEWED Meds/Allergies Reviewed Medications and Allergies including time and route of recently administered narcotics and sedatives. MEDS/ALLERGIES REVIEWED: Yes ASA RATING ASA RATING: II AIRWAY ASSESSMENT Airway Assessment Airway patency, oral function limitations, presence of caps, crowns, dentures, partials, and ability to extend neck assessed. AIRWAY ASSESSMENT: Yes MALLAMPATI SCORE MALLAMPATI SCORE: II PRE-SEDATION ASSESSMENT PRE-SEDATION ASSESSMENT: Yes ONEL LIZ MD May 21, 2020 13:55
--- NOTE | 2020-05-21 13:56 | PDOC ---
Exam Framing Carpenter Framing Carpenter Chay Manager Insurance Assistant Luciano Pre-Procedure Diagnosis Pre-Procedure Diagnosis Jtube malfunction Post-Procedure Diagnosis Post-Procedure Diagnosis Same. Plus chronic wear of G tube. Procedure Performed Procedure Performed Replacement of J and G tubes under fluoroscopy Type of Anesthesia Type of Anesthesia Mod Sed Estimated Blood Loss EBL: 3 Specimens Specimans None Drain/Tubes Drains/Tubes 20 Fr G tube 18 Fr J tube Condition of Patient Condition of Patient Stable Disposition Disposition to [facility] for recovery with expected DC ONEL LIZ MD May 21, 2020 13:56
[2020-05-21 14:01] VITALS: BP 110/57
[2020-05-21 14:10] VITALS: BP 126/57
[2020-05-21 14:25] VITALS: BP 104/56
[2020-05-21 14:40] VITALS: BP 98/42
[2020-05-21 14:55] VITALS: BP 103/56
--- NOTE | 2020-05-21 15:22 | NUR ---
pt A&O x4. denies dizziness or nausea but continues to have pain at G&J tube sites. she will take her pain meds when she gets home. VSS. pt ambulated w/o problem . d/c instructions given, questions answered. out to vehicle per w/c- sister to drive her home
--- NOTE | 2020-05-21 15:25 | RAD ---
Fluoroscopically guided placement of gastrostomy tube and jejunostomy tube 05/21/2020 Clinical Indication: J-tube malfunction. Cuff has been withdrawn and is outside of the skin. Gastrostomy tube demonstrates significant wear Discussion: The procedure was explained in its entirety to the patient or the patients designated self pay representative by a member of the treatment team, including a discussion of the risks, benefits and commonly accepted alternatives to the procedure, as well as the expected consequences of no therapy whatsoever. Discussion of the risks included, but was not limited to, those that are most frequent and those that are rare but possibly severe or life-threatening, as well as the possibility of unforeseen complications. All elements of maximal sterile barrier technique including the use of a cap, mask, sterile gown, sterile gloves, large sterile sheet, appropriate hand hygiene, and 2% chlorhexidine for cutaneous antisepsis (or acceptable alternative antiseptic per current guidelines) were followed for this procedure. Contrast was administered through the pre-existing G and J tubes with tips located in the gastric lumen and small bowel are speculated. Guidewire was advanced into the gastric lumen. The pre-existing catheter was removed over the wire and replaced with a new 20 [place]itan[place] G-tube. The retention balloon was instilled with sterile water and the catheter secured in place with variable stoma. Final catheter position was confirmed with fluoroscopic injection of contrast. Contrast was administered to the pre-existing jejunostomy tube delineating the small bowel. A Guidewire was advanced through the pre-existing J jejunostomy tube into the small bowel. The pre-existing tube was removed over the wire and replaced with an 18 [place]ian jejunostomy tube. The retention balloon was instilled with sterile water and the catheter secured in place with variable stoma. Final catheter position was confirmed with fluoroscopic injection of contrast.+ fluoro time 3.0 minutes dose 8 Gycm2 moderate sedation 35 minutes The procedures performed under conscious sedation including continuous cardiopulmonary monitoring via dedicated sedation nurse. [id number] sedation time: 35 minutes Impression: Fluoroscopically guided replacement of gastrostomy tube and jejunostomy tube
[2020-06-25] MEDS ORDERED: DEXT4TAB20 PO (08:01)
== END 2020-05-21 15:26 | disposition home or self-care (01) ==
LOC: INTRAD 11:59
PROVIDERS: ATTEND Nurse Practitioner Family
DX: K94.23 Gastrostomy malfunction (principal); R11.2 Nausea with vomiting, unspecified; K31.84 Gastroparesis; Z88.0 Allergy status to penicillin; Z88.1 Allergy status to other antibiotic agents; Z91.041 Radiographic dye allergy status; Z98.890 Other specified postprocedural states
CPT/HCPCS: 36415; 49452; 85025; 85610; 99152; 99153; B4087; C1769; J2250; J3010; Q9966; 49450; 49451

== ENCOUNTER 2020-05-23 12:12 | Inpatient (IN) | payer OTHER, MEDICAID ==
[~2020-05-23] VITALS: Ht 170.2 cm; Wt 70.2 kg
[~2020-05-23 12:12] MED LIST changes: +GABA600T7 PO; -IOHEXOL 240 MG/ML 50ML VIAL. ONE; +MIDO5TAB4 PO
[2020-05-23] MEDS ORDERED: MORPHINE SULFATE 10 MG/ML VIAL. IV ONE (13:00)
[2020-05-23] MEDS ORDERED: IV NORMAL SALINE 1000ML BAG 1,000 ML IV ONE ×2 (13:00→15:00)
[2020-05-23] MEDS ORDERED: PROCHLORPERAZINE 10 MG/2 ML VIAL. IV ONE (13:00)
[2020-05-23 13:56] LABS: CALCIUM 9.1 mg/dL (8.5-10.1); CREATININE 0.7 mg/dL (0.6-1.0); GFR 104.6; POTASSIUM 4.2 mmol/L (3.5-5.1)
[2020-05-23 14:03] LABS: ALBUMIN 3.6 g/dL (3.4-5.0); TOTAL BILIRUBIN 0.3 mg/dL (0.2-1.0); TOTAL PROTEIN 7.2 g/dL (6.4-8.2)
[2020-05-23 14:04] LABS: BASO % 0 % (0-3); EOS # 0.1 x10^3/uL (0.0-0.7); EOS % 1 % (0-3); HEMATOCRIT 28.9 % (36.0-47.0); HEMOGLOBIN 9.7 g/dL (12.0-15.5); LYMPH # 1.9 x10^3/uL (1.0-4.8); LYMPH % 27 % (24-48); MEAN CORPUSCULAR HEMOGLOBIN 29 pg (25-35); MEAN CORPUSCULAR HGB CONC 34 g/dL (31-37); MEAN CORPUSCULAR VOLUME 87 fL (79-100); MONO # 0.5 x10^3/uL (0.0-1.1); MONO % 7 % (0-9); NEUT # 4.6 x10^3/uL (1.8-7.7); NEUT % 65 % (31-73); PLATELET COUNT 154 x10^3/uL (140-400); RED BLOOD COUNT 3.32 x10^6/uL (3.50-5.40); RED CELL DISTRIBUTION WIDTH 16.3 % (11.5-14.5)
[2020-05-23 14:21] LABS: BILIRUBIN,URINE NEGATIVE (NEG); CLARITY,URINE CLEAR; COLOR,URINE YELLOW; NITRITE,URINE NEGATIVE (NEG); PROTEIN,URINE NEGATIVE (NEG-TRACE); UROBILINOGEN,URINE 0.2 mg/dL (0.2 mg/dL)
[2020-05-23 14:25] LABS: BACTERIA,URINE FEW /HPF (0-FEW); RBC,URINE >40 /HPF (0-2)
[2020-05-23 14:31] LABS: AMPHETAMINE/METHAMPHETAMINE NEG (NEG); BARBITURATES NEG (NEG); BENZODIAZEPINES NEG (NEG); CANNABINOIDS NEG (NEG); COCAINE NEG (NEG); METHADONE NEG (NEG); OPIATES POS (NEG); PHENCYCLIDINE NEG (NEG)
--- NOTE | 2020-05-23 14:42 | PHYS DOC ---
Past Medical History Past Medical History: GERD, Hypertension, Migraines, Other Additional Past Medical Histor: chronic ABD pain and N/V, GASTROPARESIS Past Surgical History: Cholecystectomy, Tonsillectomy, Other Additional Past Surgical Histo: G-tube x20; J-tube Smoking Status: Never Smoker Alcohol Use: None General Adult EDM: Chief Complaint: ABDOMINAL PAIN HPI: HPI: Patient is a 20 year old female with history of hypertension, acid reflux, migraine headaches, gastroparesis with a G-tube, J-tube and currently a PICC line for TPN feedings who presents to the ED today complaining of moderate pain to the left mid abdomen, she states she had a J-tube replaced on Tuesday this week by IR at [facility] and has had severe pain since then with nausea and vomiting. Patient states whenever she has similar pain before and it is the beginning of an infection in the J, denies any fever. She is also complaining of nausea and vomiting. She states she has tried taking her Zofran IV as well as hydrocodone p.o. with no relief. She is requesting to be admitted. Patient denies anything specifically exacerbating or relieving her symptoms. Review of Systems: Review of Systems: Constitutional: Denies fever or chills. [] Eyes: Denies change in visual acuity. [] HENT: Denies nasal congestion or sore throat. [] Respiratory: Denies cough or shortness of breath. [] Cardiovascular: Denies chest pain or edema. [] GI: Reports abdominal pain around the J-tube, reports nausea and vomiting, denies diarrhea. [] : Denies dysuria. [] Musculoskeletal: Denies back pain or joint pain. [] Integument: Denies rash. [] Neurologic: Denies headache, focal weakness or sensory changes. [] Psychiatric: Denies depression or anxiety. [] Heart Score: Risk Factors: Risk Factors: DM, Current or recent (<one month) smoker, HTN, HLP, family history of CAD, obesity. Risk Scores: Score 0 - 3: 2.5% MACE over next 6 weeks - Discharge Home Score 4 - 6: 20.3% MACE over next 6 weeks - Admit for Clinical Observation Score 7 - 10: 72.7% MACE over next 6 weeks - Early Invasive Strategies Current Medications: Current Medications Medications (Trade) Dose Ordered Sig/Kel Start Time Stop Time Status Last Admin Dose Admin Morphine Sulfate (Morphine Sulfate) 5 mg 1X ONCE 05/23/20 13:00 05/23/20 13:01 DC 05/23/20 13:29 5 MG Prochlorperazine Edisylate (Compazine) 10 mg 1X ONCE 05/23/20 13:00 05/23/20 13:01 DC 05/23/20 13:30 10 MG Sodium Chloride 1,000 ml @ 1,000 mls/hr 1X ONCE 05/23/20 13:00 05/23/20 13:59 DC 05/23/20 13:27 1,000 MLS/HR Allergies: Allergies: Allergies Coded Allergies Type Severity Reaction Last Updated Verified Penicillins Allergy Intermediate LIGHT RASH CHILD 12/29/19 Yes Sulfa (Sulfonamide Antibiotics) Allergy Intermediate 08/29/19 Yes I S O L A T I O N *CONTACT* Allergy Unknown 12/31/19 Yes Physical Exam: PE: Constitutional: Well developed, well nourished, no acute distress, non-toxic appearance. [] HENT: Normocephalic, atraumatic, bilateral external ears normal, oropharynx moist, no oral exudates, nose normal. [] Eyes: PERRLA, EOMI, conjunctiva normal, no discharge. [] Neck: Normal range of motion, no tenderness, supple, no stridor. [] Cardiovascular:Heart rate regular rhythm, no murmur [] Lungs & Thorax: Bilateral breath sounds clear to auscultation [] Abdomen: Bowel sounds normal, G-tube and J-tube present. No redness warmth noted around the J-tube or G-tube. No drainage noted around the J-tube with G- tube. There is tenderness diffusely around the J-tube. Skin: Warm, dry, no erythema, no rash. [] Back: No tenderness, no CVA tenderness. [] Extremities: No tenderness, no cyanosis, no clubbing, ROM intact, no edema. [] Neurologic: Alert and oriented X 3, normal motor function, normal sensory fun ction, no focal deficits noted. [] Psychologic: Affect normal, judgement normal, mood normal. [] Current Patient Data: Labs: Laboratory Tests Test 05/23/20 13:25 05/23/20 14:10 White Blood Count 7.0 x10^3/uL (4.0-11.0) Red Blood Count 3.32 x10^6/uL (3.50-5.40) L Hemoglobin 9.7 g/dL (12.0-15.5) L Hematocrit 28.9 % (36.0-47.0) L Mean Corpuscular Volume 87 fL (79-100) Mean Corpuscular Hemoglobin 29 pg (25-35) Mean Corpuscular Hemoglobin Concent 34 g/dL (31-37) Red Cell Distribution Width 16.3 % (11.5-14.5) H Platelet Count 154 x10^3/uL (140-400) Neutrophils (%) (Auto) 65 % (31-73) Lymphocytes (%) (Auto) 27 % (24-48) Monocytes (%) (Auto) 7 % (0-9) Eosinophils (%) (Auto) 1 % (0-3) Basophils (%) (Auto) 0 % (0-3) Neutrophils # (Auto) 4.6 x10^3/uL (1.8-7.7) Lymphocytes # (Auto) 1.9 x10^3/uL (1.0-4.8) Monocytes # (Auto) 0.5 x10^3/uL (0.0-1.1) Eosinophils # (Auto) 0.1 x10^3/uL (0.0-0.7) Basophils # (Auto) 0.0 x10^3/uL (0.0-0.2) Sodium Level 139 mmol/L (136-145) Potassium Level 4.2 mmol/L (3.5-5.1) Chloride Level 104 mmol/L (98-107) Carbon Dioxide Level 26 mmol/L (21-32) Anion Gap 9 (6-14) Blood Urea Nitrogen 20 mg/dL (7-20) Creatinine 0.7 mg/dL (0.6-1.0) Estimated GFR (Cockcroft-Gault) 104.6 BUN/Creatinine Ratio 29 (6-20) H Glucose Level 99 mg/dL (70-99) Calcium Level 9.1 mg/dL (8.5-10.1) Total Bilirubin 0.3 mg/dL (0.2-1.0) Aspartate Amino Transferase (AST) 35 U/L (15-37) Alanine Aminotransferase (ALT) 70 U/L (14-59) H Alkaline Phosphatase 124 U/L (46-116) H Total Protein 7.2 g/dL (6.4-8.2) Albumin 3.6 g/dL (3.4-5.0) Albumin/Globulin Ratio 1.0 (1.0-1.7) Lipase 63 U/L (73-393) L Ethyl Alcohol Level < 10 mg/dL (0-10) Urine Collection Type Unknown Urine Color Yellow Urine Clarity Clear Urine pH 6.0 (<5.0-8.0) Urine Specific [place] 1.025 (1.000-1.030) Urine Protein Negative mg/dL (NEG-TRACE) Urine Glucose (UA) Negative mg/dL (NEG) Urine Ketones (Stick) Negative mg/dL (NEG) Urine Blood Large (NEG) Urine Nitrite Negative (NEG) Urine Bilirubin Negative (NEG) Urine Urobilinogen Dipstick 0.2 mg/dL (0.2 mg/dL) Urine Leukocyte Esterase Small (NEG) Urine RBC >40 /HPF (0-2) Urine WBC 1-4 /HPF (0-4) Urine Squamous Epithelial Cells Few /LPF Urine Bacteria Few /HPF (0-FEW) Urine Mucus Mod /LPF Urine Opiates Screen Pos (NEG) Urine Methadone Screen Neg (NEG) Urine Barbiturates Neg (NEG) Urine Phencyclidine Screen Neg (NEG) Urine Amphetamine/Methamphetamine Neg (NEG) Urine Benzodiazepines Screen Neg (NEG) Urine Cocaine Screen Neg (NEG) Urine Cannabinoids Screen Neg (NEG) Urine Ethyl Alcohol Neg (NEG) Laboratory Tests 05/23/20 13:25 Laboratory Tests 05/23/20 13:25 Vital Signs: Vital Signs Date Time Temp Pulse Resp B/P (MAP) Pulse Ox O2 Delivery O2 Flow Rate FiO2 05/23/20 12:18 97.9 98 20 114/60 (78) 97 Room Air 97.9 EKG: EKG: [] Radiology/Procedures: Radiology/Procedures: [] Course & Med Decision Making: Course & Med Decision Making Pertinent Labs and Imaging studies reviewed. (See chart for details) Excuse me this is a 20-year-old female patient presenting to the ED today complaining of moderate pain around her J-tube that was replaced on Tuesday by interventional radiology at [facility]. She states this is usually the beginning of infection around the J-tube. She is requesting to be admitted. She is also complaining of uncontrolled pain with nausea and vomiting. CBC with a normal WBC, CMP with no acute findings. Patient is afebrile. Dr. Dr. Blue who accepted patient for admission, routine consult placed for GI Dr. Blue requested we order Dilaudid for patient. Spoke with DR. Land who is familiar with the patient Dragon Disclaimer: Pooja Disclaimer: This electronic medical record was generated, in whole or in part, using a voice recognition dictation system. Departure Departure Impression: Primary Impression: Post-operative pain Additional Impression: Intractable nausea and vomiting Disposition: ADMITTED INPT THIS HOSP Condition: STABLE Referrals: RENEA FUNG STUDENT COUNSELOR (PCP) HEYDI MORRIS [employer] CONTROL SERVICER May 23, 2020 14:42
[2020-05-23] MEDS ORDERED: ONDANSETRON PF 4 MG/2 ML VIAL. IV PRN (15:00)
--- NOTE | 2020-05-23 15:20 | RAD ---
EXAM: Abdomen, 2 views. HISTORY: Pain after J-tube replacement. COMPARISON: 02/19/2020. FINDINGS: Frontal upright and supine views of the abdomen are obtained. There is a jejunostomy tube o verlying the midabdomen. There is a kink or sharp and in the tube to left of midline. There is a seco nd catheter overlying the right abdomen which is likely external to the patient. There are cholecyste ctomy clips. There is contrast within the colon. There is no evidence of bowel obstruction. There is no evidence of free air. There is gas within the stomach. IMPRESSION: 1. Jejunostomy tube overlying the abdomen. There is a kink or sharp bend in the tube to the left of m idline. 2. Nonobstructive bowel gas pattern. Electronically signed by: Lucia Johnson MD (05/23/2020 3:17 PM) [facility]
[2020-05-23] MEDS: MORPHINE SULFATE 4 MG/ML VIAL. IV PRN ×2 (15:24→20:33)
[2020-05-23] MEDS: HYDROmorphone 2 MG/ML VIAL IV/SQ PRN ×4 (15:58→19:01)
--- NOTE | 2020-05-23 16:12 | PDOC1 ---
History and Physical Date of Service: DOS: DATE: 05/23/20 TIME: 15:55 Chief Complaint: Chief Complain: ABD pain History of Present Illness: HPI: Patient is a 20-year-old female with past medical history of recent pyloroplasty with GJ tube placement in January 2020 and a PICC line for TPN and hypotension and idiopathic autonomic neuropathy and gastroparesis who presents with 5 out of 10 mid abdominal pain near her J-tube placement. She states that her G and J-tube placement was replaced by IR on Tuesday as she has had nausea vomiting and pain with medication administration through the tube. She states that it is a sharp pain every time it is flushed as she is unable to tolerate taking even her [place]. She states that she has similar pain whenever there is an infection about to come on through the J-tube. Denies any fevers, chest pain, diarrhea, bloody stools or hematemesis. Patient will be admitted for IV pain control because the hydrocodone is unable to provide any relief. She will be evaluated by IR and general surgery. Past Medical/Surgical History: PMH/PSH: Past Medical History: Idiopathic autonomic neuropathy, recurrent H. pylori infections in the past, GERD, Hypertension, Migraines, chronic ABD pain and N/V, GASTROPARESIS Past Surgical History: Pyoloroplasty with G-J tube replacement, Cholecystectomy, Tonsillectomy, G-tube x20; J-tube Allergies: Allergies: Coded Allergies: Penicillins (Verified Allergy, Intermediate, LIGHT RASH CHILD, 12/29/19) TOLERATES ZOSYN Sulfa (Sulfonamide Antibiotics) (Verified Allergy, Intermediate, 08/29/19) I S O L A T I O N *CONTACT* (Verified Allergy, Unknown, 12/31/19) mrsa Family History: Family History: Mother with history of multiple sclerosis and father with history of Parkinson's disease Social History: Social History: Smoking Status: Never Smoker Alcohol Use: None Current Medications: Current Medications Current Medications Prochlorperazine Edisylate (Compazine) 10 mg 1X ONCE IV Last administered on 05/23/20at 13:30; Start 05/23/20 at 13:00; Stop 05/23/20 at 13:01; Status DC Morphine Sulfate (Morphine Sulfate) 5 mg 1X ONCE IV Last administered on 05/23/20at 13:29; Start 05/23/20 at 13:00; Stop 05/23/20 at 13:01; Status DC Sodium Chloride 1,000 ml @ 1,000 mls/hr 1X ONCE IV Last administered on 05/23/20at 13:27; Start 05/23/20 at 13:00; Stop 05/23/20 at 13:59; Status DC Ondansetron HCl (Zofran) 4 mg PRN Q8HRS PRN IV NAUSEA/VOMITING; Start 05/23/20 at 15:00; Stop 05/24/20 at 14:59 Morphine Sulfate (Morphine Sulfate) 4 mg PRN Q2HR PRN IV PAIN Last administered on 05/23/20at 15:24; Start 05/23/20 at 15:00; Stop 05/24/20 at 14:59 Sodium Chloride 1,000 ml @ 75 mls/hr 1X ONCE IV Last administered on 05/23/20at 15:24; Start 05/23/20 at 15:00; Stop 05/24/20 at 04:19 Hydromorphone HCl (Dilaudid) 1 mg PRN Q15MIN PRN IV/SQ PAIN GREATER THAN 3/10; Start 05/23/20 at 15:45; Stop 05/24/20 at 15:44 Active Scripts Active Sertraline Hcl 50 Mg Tablet 100 Mg PO DAILY 30 Days [Tpn Per Pharmacy] 1 EACH Each 1 Each MC PRN DAILY PRN 30 Days [Pantoprazole Iv Push] 40 MG Vial 40 Mg IVP BIDAC 30 Days Ondansetron Hcl 4 Mg/2 Ml Vial (Ondansetron Hcl/Pf) 4 Mg/2 Ml Vial 4 Mg IVP PRN Q6HRS PRN 30 Days Enemeez (Docusate Sodium) 283 Mg/5 Ml Enema 283 Mg AR PRN DAILY PRN 30 Days Bisacodyl 10 Mg Supp.rect 10 Mg AR PRN DAILY PRN 30 Days Hydrocodone-Apap 7.5-325/15 Soln (Hydrocodone Bit/Acetaminophen) 15 Ml Solution 15 Ml JT PRN Q6HRS PRN Reported Gabapentin 600 Mg Tablet 300 Mg PO TID Midodrine Hcl 5 Mg Tablet 5 Mg PO BID Reglan (Metoclopramide Hcl) 10 Mg Tablet 10 Mg PO QIDACHS Milk Of Magnesia (Magnesium Hydroxide) 400 Mg/5 Ml Oral.susp 400 Mg JT PRN DAILY MDD 400mg Mirtazapine 30 Mg Tab.rapdis 1 Tab PO QHS 30 Days Qvar Redihaler (Beclomethasone Dipropionate) 10.6 Gm Hfa.aeroba 2 Puff IH BID 30 Days Metoprolol Tartrate 50 Mg Tablet 1 Tab PO BID Advair Hfa 230-21 Mcg Inhaler (Fluticasone/Salmeterol) 12 Gm Hfa.aer.ad 1 Inh IH BID Dicyclomine Hcl 20 Mg Tablet 20 Mg GT PRN QID PRN Olopatadine HCl 5 Ml Drops 0.1 % OP PRN DAILY PRN Promethazine Hcl 12.5 Mg Tablet 25 Mg GT Q6H PRN Coq-10 (Ubidecarenone) 100 Mg Capsule 200 Mg GT DAILY Vitamin D3 (Cholecalciferol (Vitamin D3)) 4,000 Unit Capsule 2,000 Unit PO HS Xyzal (Levocetirizine Dihydrochloride) 5 Mg Tablet 5 Mg GT BID Proair Hfa (Albuterol Sulfate) 8.5 Gm Hfa.aer.ad 2 Puff IH PRN Q4-6HRS PRN 21 Days Ipratropium [place] 30 Ml [place] 1 [place] NS DAILY Duoneb 0.5-3(2.5) Mg/3 Ml (Albuterol/Ipratropium) 3 Ml Ampul.neb 3 Ml NEB PRN QID PRN Montelukast Sodium Tablet (Montelukast Sodium) 10 Mg Tablet 10 Mg GT DAILY PRN Multi Vitamin Daily (Multivitamin) 1 Each Tablet 1 Each GT DAILY ROS: Review of Systems Review of System REVIEW OF SYSTEMS: GENERAL: Denies weakness SKIN: No bruising, hair changes or rashes. EYES: No blurred, double or loss of vision. NOSE AND THROAT: No history of nosebleeds, hoarseness or sore throat. HEART: No history of palpitations, chest pain or shortness of breath on exertion. LUNGS: Denies cough, hemoptysis, wheezing or shortness of breath. GASTROINTESTINAL: Denies changes in appetite, nausea, vomiting, diarrhea or constipation. GENITOURINARY: No history of frequency, urgency, hesitancy or nocturia. NEUROLOGIC: Denies history of numbness, tingling, or tremor. PSYCHIATRIC: No history of panic, anxiety or depression. ENDOCRINE: No history of heat or cold intolerance, polyuria or polydipsia. EXTREMITIES: Denies joint pain, pain on walking or stiffness. Physical Exam: Vital Signs: Vital Signs Date Time Temp Pulse Resp B/P (MAP) Pulse Ox O2 Delivery O2 Flow Rate FiO2 05/23/20 12:18 97.9 98 20 114/60 (78) 97 Room Air 97.9 Physcial Exam: GEN: No apparent distress. Alert and oriented HEENT: Normal cephalic, atraumatic, external auditory canals are patent EYES: Extraocular muscles are intact, pupil are equally round and reactive to light and accommodation MUSCULOSKELETAL: Well developed , well nourished, good range of motion ENDOCRINE: No thyromegaly was palpated LYMPHATICS: No cervical chain or axillary nodes were noted HEMATOPOIETIC: No bruising NECK: Supple, no JVD, no thyromegaly was noted LUNGS: Clear to auscultation in all lung crain without rhonchi or wheezing HEART: RRR, S!, S2 present. Peripheral pulses intact, no obvious murmurs noted ABDOMEN: Soft, nontender. Positive bowel sounds, no organomegaly, normal b owel sounds EXTREMITIES: Without clubbing, cyanosis, or edema. Pedal pulses intact. Negative Homans sign NEUROLOGIC: Normal speech and tone. A&O x 3, moves all extremities, no obvious focal deficits PSYCHIATRIC: Normal affect, normal mood. Stable SKIN: No ulcerations or rashes, good skin turgor, no jaundice VASCULAR: Good capillary refill, neurovascular bundle appears to be intact Labs: Labs: Laboratory Tests Test 05/23/20 13:25 05/23/20 14:10 White Blood Count 7.0 x10^3/uL (4.0-11.0) Red Blood Count 3.32 x10^6/uL (3.50-5.40) Hemoglobin 9.7 g/dL (12.0-15.5) Hematocrit 28.9 % (36.0-47.0) Mean Corpuscular Volume 87 fL (79-100) Mean Corpuscular Hemoglobin 29 pg (25-35) Mean Corpuscular Hemoglobin Concent 34 g/dL (31-37) Red Cell Distribution Width 16.3 % (11.5-14.5) Platelet Count 154 x10^3/uL (140-400) Neutrophils (%) (Auto) 65 % (31-73) Lymphocytes (%) (Auto) 27 % (24-48) Monocytes (%) (Auto) 7 % (0-9) Eosinophils (%) (Auto) 1 % (0-3) Basophils (%) (Auto) 0 % (0-3) Neutrophils # (Auto) 4.6 x10^3/uL (1.8-7.7) Lymphocytes # (Auto) 1.9 x10^3/uL (1.0-4.8) Monocytes # (Auto) 0.5 x10^3/uL (0.0-1.1) Eosinophils # (Auto) 0.1 x10^3/uL (0.0-0.7) Basophils # (Auto) 0.0 x10^3/uL (0.0-0.2) Sodium Level 139 mmol/L (136-145) Potassium Level 4.2 mmol/L (3.5-5.1) Chloride Level 104 mmol/L (98-107) Carbon Dioxide Level 26 mmol/L (21-32) Anion Gap 9 (6-14) Blood Urea Nitrogen 20 mg/dL (7-20) Creatinine 0.7 mg/dL (0.6-1.0) Estimated GFR (Cockcroft-Gault) 104.6 BUN/Creatinine Ratio 29 (6-20) Glucose Level 99 mg/dL (70-99) Calcium Level 9.1 mg/dL (8.5-10.1) Total Bilirubin 0.3 mg/dL (0.2-1.0) Aspartate Amino Transf (AST/SGOT) 35 U/L (15-37) Alanine Aminotransferase (ALT/SGPT) 70 U/L (14-59) Alkaline Phosphatase 124 U/L (46-116) Total Protein 7.2 g/dL (6.4-8.2) Albumin 3.6 g/dL (3.4-5.0) Albumin/Globulin Ratio 1.0 (1.0-1.7) Lipase 63 U/L (73-393) Ethyl Alcohol Level < 10 mg/dL (0-10) Urine Collection Type Unknown Urine Color Yellow Urine Clarity Clear Urine pH 6.0 (<5.0-8.0) Urine Specific [place] 1.025 (1.000-1.030) Urine Protein Negative mg/dL (NEG-TRACE) Urine Glucose (UA) Negative mg/dL (NEG) Urine Ketones (Stick) Negative mg/dL (NEG) Urine Blood Large (NEG) Urine Nitrite Negative (NEG) Urine Bilirubin Negative (NEG) Urine Urobilinogen Dipstick 0.2 mg/dL (0.2 mg/dL) Urine Leukocyte Esterase Small (NEG) Urine RBC >40 /HPF (0-2) Urine WBC 1-4 /HPF (0-4) Urine Squamous Epithelial Cells Few /LPF Urine Bacteria Few /HPF (0-FEW) Urine Mucus Mod /LPF Urine Opiates Screen Pos (NEG) Urine Methadone Screen Neg (NEG) Urine Barbiturates Neg (NEG) Urine Phencyclidine Screen Neg (NEG) Urine Amphetamine/Methamphetamine Neg (NEG) Urine Benzodiazepines Screen Neg (NEG) Urine Cocaine Screen Neg (NEG) Urine Cannabinoids Screen Neg (NEG) Urine Ethyl Alcohol Neg (NEG) Laboratory Tests Test 05/23/20 13:25 05/23/20 14:10 White Blood Count 7.0 x10^3/uL (4.0-11.0) Red Blood Count 3.32 x10^6/uL (3.50-5.40) Hemoglobin 9.7 g/dL (12.0-15.5) Hematocrit 28.9 % (36.0-47.0) Mean Corpuscular Volume 87 fL (79-100) Mean Corpuscular Hemoglobin 29 pg (25-35) Mean Corpuscular Hemoglobin Concent 34 g/dL (31-37) Red Cell Distribution Width 16.3 % (11.5-14.5) Platelet Count 154 x10^3/uL (140-400) Neutrophils (%) (Auto) 65 % (31-73) Lymphocytes (%) (Auto) 27 % (24-48) Monocytes (%) (Auto) 7 % (0-9) Eosinophils (%) (Auto) 1 % (0-3) Basophils (%) (Auto) 0 % (0-3) Neutrophils # (Auto) 4.6 x10^3/uL (1.8-7.7) Lymphocytes # (Auto) 1.9 x10^3/uL (1.0-4.8) Monocytes # (Auto) 0.5 x10^3/uL (0.0-1.1) Eosinophils # (Auto) 0.1 x10^3/uL (0.0-0.7) Basophils # (Auto) 0.0 x10^3/uL (0.0-0.2) Sodium Level 139 mmol/L (136-145) Potassium Level 4.2 mmol/L (3.5-5.1) Chloride Level 104 mmol/L (98-107) Carbon Dioxide Level 26 mmol/L (21-32) Anion Gap 9 (6-14) Blood Urea Nitrogen 20 mg/dL (7-20) Creatinine 0.7 mg/dL (0.6-1.0) Estimated GFR (Cockcroft-Gault) 104.6 BUN/Creatinine Ratio 29 (6-20) Glucose Level 99 mg/dL (70-99) Calcium Level 9.1 mg/dL (8.5-10.1) Total Bilirubin 0.3 mg/dL (0.2-1.0) Aspartate Amino Transf (AST/SGOT) 35 U/L (15-37) Alanine Aminotransferase (ALT/SGPT) 70 U/L (14-59) Alkaline Phosphatase 124 U/L (46-116) Total Protein 7.2 g/dL (6.4-8.2) Albumin 3.6 g/dL (3.4-5.0) Albumin/Globulin Ratio 1.0 (1.0-1.7) Lipase 63 U/L (73-393) Ethyl Alcohol Level < 10 mg/dL (0-10) Urine Collection Type Unknown Urine Color Yellow Urine Clarity Clear Urine pH 6.0 (<5.0-8.0) Urine Specific [place] 1.025 (1.000-1.030) Urine Protein Negative mg/dL (NEG-TRACE) Urine Glucose (UA) Negative mg/dL (NEG) Urine Ketones (Stick) Negative mg/dL (NEG) Urine Blood Large (NEG) Urine Nitrite Negative (NEG) Urine Bilirubin Negative (NEG) Urine Urobilinogen Dipstick 0.2 mg/dL (0.2 mg/dL) Urine Leukocyte Esterase Small (NEG) Urine RBC >40 /HPF (0-2) Urine WBC 1-4 /HPF (0-4) Urine Squamous Epithelial Cells Few /LPF Urine Bacteria Few /HPF (0-FEW) Urine Mucus Mod /LPF Urine Opiates Screen Pos (NEG) Urine Methadone Screen Neg (NEG) Urine Barbiturates Neg (NEG) Urine Phencyclidine Screen Neg (NEG) Urine Amphetamine/Methamphetamine Neg (NEG) Urine Benzodiazepines Screen Neg (NEG) Urine Cocaine Screen Neg (NEG) Urine Cannabinoids Screen Neg (NEG) Urine Ethyl Alcohol Neg (NEG) Images: Images ABD XR IMPRESSION: 1. Jejunostomy tube overlying the abdomen. There is a kink or sharp bend in the tube to the left of midline. 2. Nonobstructive bowel gas pattern. Assessment/Plan Assessment/Plan Acute abdominal pain due to J-tube malfunction History of gastroparesis History of hypotension Idiopathic autonomic neuropathy Admit to medicine for further management General surgery consult Abdominal x-ray IV pain control Continue IV fluids Orthostatic vital signs Lovenox for DVT prophylaxis Protonix GI prophylaxis ADA diet Full code Discussed with RN and SW Disposition pending surgery evaluation Surrogate decision maker is the mother Justifications for Admission Other Justification DESIREE MCCALL MD May 23, 2020 16:12
[2020-05-23] MEDS ORDERED: DOCUSATE SODIUM 100 MG CAPSULE. PO PRN (16:15)
[2020-05-23] MEDS ORDERED: SENNOSIDES 8.6 MG TABLET PO PRN (16:15)
[2020-05-23] MEDS ORDERED: DEXTROSE 50% 25 GM / 50ML DISP.SYRIN. IV PRN (16:15)
[2020-05-23 19:30] VITALS: BP 110/72
[2020-05-23] MEDS ORDERED: SERT50TA PO (19:46)
[2020-05-23] MEDS: ENOXAPARIN 40 MG/0.4 ML SYRINGE. SQ SCH (20:33)
[2020-05-23] MEDS ORDERED: RIZA10TA PO (22:48)
[2020-05-23] MEDS ORDERED: BOTOX (22:48)
[2020-05-23] MEDS ORDERED: FLUT1BLS3 IH (22:48)
[2020-05-23] MEDS ORDERED: HYDR50TA PO (22:48)
[2020-05-23] MEDS ORDERED: TIZA2CAP PO (22:48)
[2020-05-23] MEDS ORDERED: FREM225A SQ (22:48)
[2020-05-23 23:00] VITALS: BP 115/57
[2020-05-24] VITALS (11 sets, daily range): BP systolic 95–126; BP diastolic 60–76
[2020-05-24] MEDS: ONDANSETRON PF 4 MG/2 ML VIAL. IVP PRN ×2 (01:06→21:34)
[2020-05-24] MEDS: MORPHINE SULFATE 4 MG/ML VIAL. IV PRN ×4 (01:06→09:46)
--- NOTE | 2020-05-24 09:23 | PDOC2 ---
CONSULT Date of Consult Date of Consult DATE: 05/24/20 TIME: 09:21 Reason for Consult Reason for Consult: Gastroparesis/abd pain Past Medical History Cardiovascular: HTN Pulmonary: Asthma GI: Other Psych: Anxiety, Depression Infectious disease: Other Past Surgical History Past Surgical History: Cholecystectomy, Other Family History Family History: No Significant, Hypertension Social History ALCOHOL: none Drugs: None Lives: with Family Current Problem List Problem List Problems Medical Problems: (1) Intractable nausea and vomiting Status: Acute (2) Post-operative pain Status: Acute Current Medications Current Medications Current Medications Prochlorperazine Edisylate (Compazine) 10 mg 1X ONCE IV Last administered on 05/23/20at 13:30; Start 05/23/20 at 13:00; Stop 05/23/20 at 13:01; Status DC Morphine Sulfate (Morphine Sulfate) 5 mg 1X ONCE IV Last administered on 05/23/20at 13:29; Start 05/23/20 at 13:00; Stop 05/23/20 at 13:01; Status DC Sodium Chloride 1,000 ml @ 1,000 mls/hr 1X ONCE IV Last administered on 05/23/20at 13:27; Start 05/23/20 at 13:00; Stop 05/23/20 at 13:59; Status DC Ondansetron HCl (Zofran) 4 mg PRN Q8HRS PRN IV NAUSEA/VOMITING Last administered on 05/24/20at 08:20; Start 05/23/20 at 15:00; Stop 05/24/20 at 14:59 Morphine Sulfate (Morphine Sulfate) 4 mg PRN Q2HR PRN IV PAIN Last administered on 05/24/20at 07:07; Start 05/23/20 at 15:00; Stop 05/24/20 at 14:59 Sodium Chloride 1,000 ml @ 75 mls/hr 1X ONCE IV Last administered on 05/23/20at 15:24; Start 05/23/20 at 15:00; Stop 05/24/20 at 04:19; Status DC Hydromorphone HCl (Dilaudid) 1 mg PRN Q15MIN PRN IV/SQ PAIN GREATER THAN 3/10 Last administered on 05/23/20at 19:01; Start 05/23/20 at 15:45; Stop 05/24/20 at 15:44 Sennosides (Senna) 17.2 mg PRN BID PRN PO CONSTIPATION; Start 05/23/20 at 16:15 Docusate Sodium (Colace) 100 mg PRN DAILY PRN PO HARD STOOLS; Start 05/23/20 at 16:15 Ondansetron HCl (Zofran) 4 mg PRN Q6HRS PRN IVP NAUSEA/VOMITING Last administered on 05/24/20at 01:06; Start 05/23/20 at 16:15 Dextrose (Dextrose 50%-Water Syringe) 12.5 gm PRN Q15MIN PRN IV SEE COMMENTS; Start 05/23/20 at 16:15 Enoxaparin Sodium (Lovenox 40mg Syringe) 40 mg Q24H SQ Last administered on 05/23/20at 20:33; Start 05/23/20 at 21:00 Active Scripts Active Sertraline Hcl 50 Mg Tablet 100 Mg PO DAILY 30 Days [Tpn Per Pharmacy] 1 EACH Each 1 Each MC PRN DAILY PRN 30 Days [Pantoprazole Iv Push] 40 MG Vial 40 Mg IVP BIDAC 30 Days Ondansetron Hcl 4 Mg/2 Ml Vial (Ondansetron Hcl/Pf) 4 Mg/2 Ml Vial 4 Mg IVP PRN Q6HRS PRN 30 Days Enemeez (Docusate Sodium) 283 Mg/5 Ml Enema 283 Mg MD PRN DAILY PRN 30 Days Bisacodyl 10 Mg Supp.rect 10 Mg MD PRN DAILY PRN 30 Days Hydrocodone-Apap 7.5-325/15 Soln (Hydrocodone Bit/Acetaminophen) 15 Ml Solution 15 Ml JT PRN Q6HRS PRN Reported [Botox] 155 Maxalt (Rizatriptan Benzoate) 10 Mg Tablet 5 Mg PO UD PRN repeat after 2 hrs if not relieved Ajovy Autoinjector (Fremanezumab-Vfrm) 225 Mg/1.5 Ml Auto.injct 225 Mg SQ QMONTH Trelegy Ellipta 100-62.5-25 (Fluticasone/Umeclidin/Vilanter) 1 Each Blst.w.dev 1 Each IH DAILY Tizanidine Hcl 2 Mg Capsule 2 Mg PO Q8HRS PRN Hydroxyzine Hcl 50 Mg Tablet 100 Mg PO HS Zoloft (Sertraline Hcl) 50 Mg Tablet 75 Mg PO DAILY Gabapentin 600 Mg Tablet 300 Mg PO TID Midodrine Hcl 5 Mg Tablet 5 Mg PO BID Milk Of Magnesia (Magnesium Hydroxide) 400 Mg/5 Ml Oral.susp 400 Mg JT PRN DAILY MDD 400mg Mirtazapine 30 Mg Tab.rapdis 1 Tab PO QHS 30 Days Qvar Redihaler (Beclomethasone Dipropionate) 10.6 Gm Hfa.aeroba 2 Puff IH BID 30 Days Metoprolol Tartrate 50 Mg Tablet 1 Tab PO BID Dicyclomine Hcl 20 Mg Tablet 20 Mg GT PRN QID PRN Olopatadine HCl 5 Ml Drops 0.1 % OP PRN DAILY PRN Coq-10 (Ubidecarenone) 100 Mg Capsule 200 Mg GT DAILY Vitamin D3 (Cholecalciferol (Vitamin D3)) 4,000 Unit Capsule 2,000 Unit PO HS Xyzal (Levocetirizine Dihydrochloride) 5 Mg Tablet 5 Mg GT BID Proair Hfa (Albuterol Sulfate) 8.5 Gm Hfa.aer.ad 2 Puff IH PRN Q4-6HRS PRN 21 Days Ipratropium [place] 30 Ml [place] 1 [place] NS DAILY Duoneb 0.5-3(2.5) Mg/3 Ml (Albuterol/Ipratropium) 3 Ml Ampul.neb 3 Ml NEB PRN QID PRN Montelukast Sodium Tablet (Montelukast Sodium) 10 Mg Tablet 10 Mg GT DAILY PRN Multi Vitamin Daily (Multivitamin) 1 Each Tablet 1 Each GT DAILY Allergies Allergies: Coded Allergies: Penicillins (Verified Allergy, Intermediate, LIGHT RASH CHILD, 12/29/19) TOLERATES ZOSYN Sulfa (Sulfonamide Antibiotics) (Verified Allergy, Intermediate, 08/29/19) I S O L A T I O N *CONTACT* (Verified Allergy, Unknown, 12/31/19) mrsa Vitals VITALS Vital Signs Date Time Temp Pulse Resp B/P (MAP) Pulse Ox O2 Delivery O2 Flow Rate FiO2 05/24/20 08:16 Room Air 05/24/20 07:07 18 100 05/24/20 07:00 98 111/75 (87) 05/24/20 07:00 97.8 97.8 Labs Labs Laboratory Tests Test 05/23/20 13:25 05/23/20 14:10 White Blood Count 7.0 x10^3/uL (4.0-11.0) Red Blood Count 3.32 x10^6/uL (3.50-5.40) Hemoglobin 9.7 g/dL (12.0-15.5) Hematocrit 28.9 % (36.0-47.0) Mean Corpuscular Volume 87 fL (79-100) Mean Corpuscular Hemoglobin 29 pg (25-35) Mean Corpuscular Hemoglobin Concent 34 g/dL (31-37) Red Cell Distribution Width 16.3 % (11.5-14.5) Platelet Count 154 x10^3/uL (140-400) Neutrophils (%) (Auto) 65 % (31-73) Lymphocytes (%) (Auto) 27 % (24-48) Monocytes (%) (Auto) 7 % (0-9) Eosinophils (%) (Auto) 1 % (0-3) Basophils (%) (Auto) 0 % (0-3) Neutrophils # (Auto) 4.6 x10^3/uL (1.8-7.7) Lymphocytes # (Auto) 1.9 x10^3/uL (1.0-4.8) Monocytes # (Auto) 0.5 x10^3/uL (0.0-1.1) Eosinophils # (Auto) 0.1 x10^3/uL (0.0-0.7) Basophils # (Auto) 0.0 x10^3/uL (0.0-0.2) Sodium Level 139 mmol/L (136-145) Potassium Level 4.2 mmol/L (3.5-5.1) Chloride Level 104 mmol/L (98-107) Carbon Dioxide Level 26 mmol/L (21-32) Anion Gap 9 (6-14) Blood Urea Nitrogen 20 mg/dL (7-20) Creatinine 0.7 mg/dL (0.6-1.0) Estimated GFR (Cockcroft-Gault) 104.6 BUN/Creatinine Ratio 29 (6-20) Glucose Level 99 mg/dL (70-99) Calcium Level 9.1 mg/dL (8.5-10.1) Total Bilirubin 0.3 mg/dL (0.2-1.0) Aspartate Amino Transf (AST/SGOT) 35 U/L (15-37) Alanine Aminotransferase (ALT/SGPT) 70 U/L (14-59) Alkaline Phosphatase 124 U/L (46-116) Total Protein 7.2 g/dL (6.4-8.2) Albumin 3.6 g/dL (3.4-5.0) Albumin/Globulin Ratio 1.0 (1.0-1.7) Lipase 63 U/L (73-393) Ethyl Alcohol Level < 10 mg/dL (0-10) Urine Collection Type Unknown Urine Color Yellow Urine Clarity Clear Urine pH 6.0 (<5.0-8.0) Urine Specific [place] 1.025 (1.000-1.030) Urine Protein Negative mg/dL (NEG-TRACE) Urine Glucose (UA) Negative mg/dL (NEG) Urine Ketones (Stick) Negative mg/dL (NEG) Urine Blood Large (NEG) Urine Nitrite Negative (NEG) Urine Bilirubin Negative (NEG) Urine Urobilinogen Dipstick 0.2 mg/dL (0.2 mg/dL) Urine Leukocyte Esterase Small (NEG) Urine RBC >40 /HPF (0-2) Urine WBC 1-4 /HPF (0-4) Urine Squamous Epithelial Cells Few /LPF Urine Bacteria Few /HPF (0-FEW) Urine Mucus Mod /LPF Urine Opiates Screen Pos (NEG) Urine Methadone Screen Neg (NEG) Urine Barbiturates Neg (NEG) Urine Phencyclidine Screen Neg (NEG) Urine Amphetamine/Methamphetamine Neg (NEG) Urine Benzodiazepines Screen Neg (NEG) Urine Cocaine Screen Neg (NEG) Urine Cannabinoids Screen Neg (NEG) Urine Ethyl Alcohol Neg (NEG) Laboratory Tests Test 05/23/20 13:25 05/23/20 14:10 White Blood Count 7.0 x10^3/uL (4.0-11.0) Red Blood Count 3.32 x10^6/uL (3.50-5.40) Hemoglobin 9.7 g/dL (12.0-15.5) Hematocrit 28.9 % (36.0-47.0) Mean Corpuscular Volume 87 fL (79-100) Mean Corpuscular Hemoglobin 29 pg (25-35) Mean Corpuscular Hemoglobin Concent 34 g/dL (31-37) Red Cell Distribution Width 16.3 % (11.5-14.5) Platelet Count 154 x10^3/uL (140-400) Neutrophils (%) (Auto) 65 % (31-73) Lymphocytes (%) (Auto) 27 % (24-48) Monocytes (%) (Auto) 7 % (0-9) Eosinophils (%) (Auto) 1 % (0-3) Basophils (%) (Auto) 0 % (0-3) Neutrophils # (Auto) 4.6 x10^3/uL (1.8-7.7) Lymphocytes # (Auto) 1.9 x10^3/uL (1.0-4.8) Monocytes # (Auto) 0.5 x10^3/uL (0.0-1.1) Eosinophils # (Auto) 0.1 x10^3/uL (0.0-0.7) Basophils # (Auto) 0.0 x10^3/uL (0.0-0.2) Sodium Level 139 mmol/L (136-145) Potassium Level 4.2 mmol/L (3.5-5.1) Chloride Level 104 mmol/L (98-107) Carbon Dioxide Level 26 mmol/L (21-32) Anion Gap 9 (6-14) Blood Urea Nitrogen 20 mg/dL (7-20) Creatinine 0.7 mg/dL (0.6-1.0) Estimated GFR (Cockcroft-Gault) 104.6 BUN/Creatinine Ratio 29 (6-20) Glucose Level 99 mg/dL (70-99) Calcium Level 9.1 mg/dL (8.5-10.1) Total Bilirubin 0.3 mg/dL (0.2-1.0) Aspartate Amino Transf (AST/SGOT) 35 U/L (15-37) Alanine Aminotransferase (ALT/SGPT) 70 U/L (14-59) Alkaline Phosphatase 124 U/L (46-116) Total Protein 7.2 g/dL (6.4-8.2) Albumin 3.6 g/dL (3.4-5.0) Albumin/Globulin Ratio 1.0 (1.0-1.7) Lipase 63 U/L (73-393) Ethyl Alcohol Level < 10 mg/dL (0-10) Urine Collection Type Unknown Urine Color Yellow Urine Clarity Clear Urine pH 6.0 (<5.0-8.0) Urine Specific [place] 1.025 (1.000-1.030) Urine Protein Negative mg/dL (NEG-TRACE) Urine Glucose (UA) Negative mg/dL (NEG) Urine Ketones (Stick) Negative mg/dL (NEG) Urine Blood Large (NEG) Urine Nitrite Negative (NEG) Urine Bilirubin Negative (NEG) Urine Urobilinogen Dipstick 0.2 mg/dL (0.2 mg/dL) Urine Leukocyte Esterase Small (NEG) Urine RBC >40 /HPF (0-2) Urine WBC 1-4 /HPF (0-4) Urine Squamous Epithelial Cells Few /LPF Urine Bacteria Few /HPF (0-FEW) Urine Mucus Mod /LPF Urine Opiates Screen Pos (NEG) Urine Methadone Screen Neg (NEG) Urine Barbiturates Neg (NEG) Urine Phencyclidine Screen Neg (NEG) Urine Amphetamine/Methamphetamine Neg (NEG) Urine Benzodiazepines Screen Neg (NEG) Urine Cocaine Screen Neg (NEG) Urine Cannabinoids Screen Neg (NEG) Urine Ethyl Alcohol Neg (NEG) Assessment/Plan Assessment/Plan Gastroparesis- on home TPN, with dysfunctional J tube Plan surgery/ir re-evaluation TPN/IV fludis until then Full note dictated ENDER HWANG MD May 24, 2020 09:23
[2020-05-24 09:39] LABS: BASO % 0 % (0-3); EOS # 0.1 x10^3/uL (0.0-0.7); EOS % 2 % (0-3); HEMATOCRIT 26.7 % (36.0-47.0); HEMOGLOBIN 8.9 g/dL (12.0-15.5); LYMPH # 1.6 x10^3/uL (1.0-4.8); LYMPH % 46 % (24-48); MEAN CORPUSCULAR HEMOGLOBIN 29 pg (25-35); MEAN CORPUSCULAR HGB CONC 33 g/dL (31-37); MEAN CORPUSCULAR VOLUME 88 fL (79-100); MONO # 0.2 x10^3/uL (0.0-1.1); MONO % 6 % (0-9); NEUT # 1.6 x10^3/uL (1.8-7.7); NEUT % 46 % (31-73); PLATELET COUNT 149 x10^3/uL (140-400); RED BLOOD COUNT 3.05 x10^6/uL (3.50-5.40); RED CELL DISTRIBUTION WIDTH 16.1 % (11.5-14.5); WHITE BLOOD COUNT 3.5 x10^3/uL (4.0-11.0)
[2020-05-24] MEDS: IV NORMAL SALINE 1000ML BAG 1,000 ML IV SCH ×3 (09:46→19:41)
[2020-05-24 09:55] LABS: ALBUMIN/GLOBULIN RATIO 0.9 (1.0-1.7); CALCIUM 8.5 mg/dL (8.5-10.1); CREATININE 0.6 mg/dL (0.6-1.0); POTASSIUM 3.7 mmol/L (3.5-5.1); TOTAL BILIRUBIN 0.4 mg/dL (0.2-1.0); TOTAL PROTEIN 6.2 g/dL (6.4-8.2)
[2020-05-24] MEDS ORDERED: NALOXONE 0.4 MG/ML VIAL. IV PRN (10:30)
[2020-05-24] MEDS ORDERED: METOCLOPRAMIDE HCL 10 MG/2 ML VIAL. IVP PRN (10:30)
--- NOTE | 2020-05-24 10:54 | PDOC ---
[employer] PROGRESS NOTE Date of Service DOS: DATE: 05/24/20 TIME: 10:53 Chief Complaint Chief Complaint Acute abdominal pain due to J-tube malfunction, there is an actually a kink seen on abdominal x-ray on the J-tube History of gastroparesis History of hypotension Idiopathic autonomic neuropathy Admit to medicine for further management General surgery consult Abdominal x-ray IV pain control Continue IV fluids Orthostatic vital signs Lovenox for DVT prophylaxis Protonix GI prophylaxis ADA diet Full code Discussed with RN and SW Disposition pending surgery evaluation Surrogate decision maker is the mother History of Present Illness History of Present Illness 05/24/2020 No acute events overnight. Patient is afebrile. Pain is moderately controlled. Will start patient on IV Dilaudid via [facility]. We will switch to Compazine or Reglan for better antiemetics. No active bleeding or drainage to the J or G-tube. Pending IR and surgery evaluation. Patient's chart, labs, images were reviewed and discussed with RN 20-year-old female with past medical history of recent pyloroplasty with GJ tube placement in January 2020 and a PICC line for TPN and hypotension and idiopathic autonomic neuropathy and gastroparesis who presents with 5 out of 10 mid abdominal pain near her J-tube placement. She states that her G and J-tube placement was replaced by IR on Tuesday as she has had nausea vomiting and pain with medication administration through the tube. She states that it is a sharp pain every time it is flushed as she is unable to tolerate taking even her [place]. She states that she has similar pain whenever there is an infection about to come on through the J-tube. Denies any fevers, chest pain, diarrhea, bloody stools or hematemesis. Patient will be admitted for IV pain control because the hydrocodone is unable to provide any relief. She will be evaluated by IR and general surgery. Vitals/I&O Vitals/I&O: Vital Signs Date Time Temp Pulse Resp B/P (MAP) Pulse Ox O2 Delivery O2 Flow Rate FiO2 05/24/20 09:46 Room Air 05/24/20 07:07 18 100 05/24/20 07:00 98 111/75 (87) 05/24/20 07:00 97.8 97.8 I & O 05/23/20 05/23/20 05/24/20 15:00 23:00 07:00 Intake Total 1000 ml 0 ml 0 ml Balance 1000 ml 0 ml 0 ml Physical Exam Lungs: Clear Labs Labs: Laboratory Tests Test 05/23/20 13:25 05/23/20 14:10 05/24/20 08:35 White Blood Count 7.0 x10^3/uL (4.0-11.0) 3.5 x10^3/uL (4.0-11.0) Red Blood Count 3.32 x10^6/uL (3.50-5.40) 3.05 x10^6/uL (3.50-5.40) Hemoglobin 9.7 g/dL (12.0-15.5) 8.9 g/dL (12.0-15.5) Hematocrit 28.9 % (36.0-47.0) 26.7 % (36.0-47.0) Mean Corpuscular Volume 87 fL (79-100) 88 fL (79-100) Mean Corpuscular Hemoglobin 29 pg (25-35) 29 pg (25-35) Mean Corpuscular Hemoglobin Concent 34 g/dL (31-37) 33 g/dL (31-37) Red Cell Distribution Width 16.3 % (11.5-14.5) 16.1 % (11.5-14.5) Platelet Count 154 x10^3/uL (140-400) 149 x10^3/uL (140-400) Neutrophils (%) (Auto) 65 % (31-73) 46 % (31-73) Lymphocytes (%) (Auto) 27 % (24-48) 46 % (24-48) Monocytes (%) (Auto) 7 % (0-9) 6 % (0-9) Eosinophils (%) (Auto) 1 % (0-3) 2 % (0-3) Basophils (%) (Auto) 0 % (0-3) 0 % (0-3) Neutrophils # (Auto) 4.6 x10^3/uL (1.8-7.7) 1.6 x10^3/uL (1.8-7.7) Lymphocytes # (Auto) 1.9 x10^3/uL (1.0-4.8) 1.6 x10^3/uL (1.0-4.8) Monocytes # (Auto) 0.5 x10^3/uL (0.0-1.1) 0.2 x10^3/uL (0.0-1.1) Eosinophils # (Auto) 0.1 x10^3/uL (0.0-0.7) 0.1 x10^3/uL (0.0-0.7) Basophils # (Auto) 0.0 x10^3/uL (0.0-0.2) 0.0 x10^3/uL (0.0-0.2) Sodium Level 139 mmol/L (136-145) 142 mmol/L (136-145) Potassium Level 4.2 mmol/L (3.5-5.1) 3.7 mmol/L (3.5-5.1) Chloride Level 104 mmol/L (98-107) 108 mmol/L (98-107) Carbon Dioxide Level 26 mmol/L (21-32) 26 mmol/L (21-32) Anion Gap 9 (6-14) 8 (6-14) Blood Urea Nitrogen 20 mg/dL (7-20) 8 mg/dL (7-20) Creatinine 0.7 mg/dL (0.6-1.0) 0.6 mg/dL (0.6-1.0) Estimated GFR (Cockcroft-Gault) 104.6 125.0 BUN/Creatinine Ratio 29 (6-20) 13 (6-20) Glucose Level 99 mg/dL (70-99) 80 mg/dL (70-99) Calcium Level 9.1 mg/dL (8.5-10.1) 8.5 mg/dL (8.5-10.1) Total Bilirubin 0.3 mg/dL (0.2-1.0) 0.4 mg/dL (0.2-1.0) Aspartate Amino Transf (AST/SGOT) 35 U/L (15-37) 37 U/L (15-37) Alanine Aminotransferase (ALT/SGPT) 70 U/L (14-59) 68 U/L (14-59) Alkaline Phosphatase 124 U/L (46-116) 116 U/L (46-116) Total Protein 7.2 g/dL (6.4-8.2) 6.2 g/dL (6.4-8.2) Albumin 3.6 g/dL (3.4-5.0) 3.0 g/dL (3.4-5.0) Albumin/Globulin Ratio 1.0 (1.0-1.7) 0.9 (1.0-1.7) Lipase 63 U/L (73-393) Ethyl Alcohol Level < 10 mg/dL (0-10) Urine Collection Type Unknown Urine Color Yellow Urine Clarity Clear Urine pH 6.0 (<5.0-8.0) Urine Specific [place] 1.025 (1.000-1.030) Urine Protein Negative mg/dL (NEG-TRACE) Urine Glucose (UA) Negative mg/dL (NEG) Urine Ketones (Stick) Negative mg/dL (NEG) Urine Blood Large (NEG) Urine Nitrite Negative (NEG) Urine Bilirubin Negative (NEG) Urine Urobilinogen Dipstick 0.2 mg/dL (0.2 mg/dL) Urine Leukocyte Esterase Small (NEG) Urine RBC >40 /HPF (0-2) Urine WBC 1-4 /HPF (0-4) Urine Squamous Epithelial Cells Few /LPF Urine Bacteria Few /HPF (0-FEW) Urine Mucus Mod /LPF Urine Opiates Screen Pos (NEG) Urine Methadone Screen Neg (NEG) Urine Barbiturates Neg (NEG) Urine Phencyclidine Screen Neg (NEG) Urine Amphetamine/Methamphetamine Neg (NEG) Urine Benzodiazepines Screen Neg (NEG) Urine Cocaine Screen Neg (NEG) Urine Cannabinoids Screen Neg (NEG) Urine Ethyl Alcohol Neg (NEG) Assessment and Plan Assessmemt and Plan Problems Medical Problems: (1) Intractable nausea and vomiting Status: Acute (2) Post-operative pain Status: Acute Comment Review of Relevant I have reviewed the following items lalo (where applicable) has been applied. Medications: Current Medications Medications (Trade) Dose Ordered Sig/Kel Route PRN Reason Start Time Stop Time Status Last Admin Dose Admin Prochlorperazine Edisylate (Compazine) 10 mg 1X ONCE IV 05/23/20 13:00 05/23/20 13:01 DC 05/23/20 13:30 Morphine Sulfate (Morphine Sulfate) 5 mg 1X ONCE IV 05/23/20 13:00 05/23/20 13:01 DC 05/23/20 13:29 Sodium Chloride 1,000 ml @ 1,000 mls/hr 1X ONCE IV 05/23/20 13:00 05/23/20 13:59 DC 05/23/20 13:27 Ondansetron HCl (Zofran) 4 mg PRN Q8HRS PRN IV NAUSEA/VOMITING 05/23/20 15:00 05/24/20 14:59 05/24/20 08:20 Morphine Sulfate (Morphine Sulfate) 4 mg PRN Q2HR PRN IV PAIN 05/23/20 15:00 05/24/20 14:59 05/24/20 09:46 Sodium Chloride 1,000 ml @ 75 mls/hr 1X ONCE IV 05/23/20 15:00 05/24/20 04:19 DC 05/23/20 15:24 Hydromorphone HCl (Dilaudid) 1 mg PRN Q15MIN PRN IV/SQ PAIN GREATER THAN 3/10 05/23/20 15:45 05/24/20 15:44 05/23/20 19:01 Ondansetron HCl (Zofran) 4 mg PRN Q6HRS PRN IVP NAUSEA/VOMITING 05/23/20 16:15 05/24/20 01:06 Enoxaparin Sodium (Lovenox 40mg Syringe) 40 mg Q24H SQ 05/23/20 21:00 05/23/20 20:33 Sodium Chloride 1,000 ml @ 100 mls/hr Q10H IV 05/24/20 09:45 05/24/20 09:46 Justifications for Admission Abdominal Pain Indications Is patient in severe pain?: Yes Justification for admission: Patient has severe pain that requires (parenteral analgesic-please state analgesics and route) at least every 4 hours necessitating inpatient level of care. Is NPO status required?: Yes Justification for admission: Patient may require to be NPO for greater 24hours making it medically necessary to manage patient as inpatient. Other Justification DESIREE MCCALL MD May 24, 2020 10:54
--- NOTE | 2020-05-24 11:29 | CONS ---
DATE OF CONSULTATION: 05/24/2020 REFERRING PHYSICIAN: Dr. Blue. REASON FOR CONSULTATION: Intractable nausea, vomiting, gastroparesis. HISTORY OF PRESENT ILLNESS: A 20-year-old female with past medical history significant for GERD, hypertension, migraines, gastroparesis, abdominal pain, nausea, vomiting, status post cholecystectomy, tonsillectomy, G-tube/J-tube placement, is seen with ongoing issues with her G-tube since being replaced on Tuesday, she had intractable nausea, vomiting, and pain. She has been admitted for further evaluation and care. PAST MEDICAL HISTORY: Gastroparesis, status post tonsillectomy, cholecystectomy. ALLERGIES: PENICILLIN AND SULFA. MEDICATIONS: Include home TPN, Lovenox, ondansetron, senna, hydromorphone. SOCIAL HISTORY: She is single, does not drink or smoke. FAMILY HISTORY: Noncontributory. REVIEW OF SYSTEMS: Per records. PHYSICAL EXAMINATION: GENERAL: Reveals a thin, pale white female who is alert, cooperative, in no acute distress. VITAL SIGNS: Temperature 97.8, pulse 94, respiratory rate is 18, blood pressure is 108/68. LUNGS: Clear. CARDIOVASCULAR: Reveals an S1, S2 without S3, S4 or appreciable murmur. ABDOMEN: Reveals a soft abdomen, normal bowel sounds, without appreciable hepatosplenomegaly. The J-tube/G-tube are noted with mild tenderness. EXTREMITIES: Reveals no cyanosis, clubbing or edema. LABORATORY STUDIES: Hemoglobin is 9.7, hematocrit 28.9, white count 7.0, platelet count 154,000. Sodium 139, potassium 4.2, chloride 104, bicarb 24, BUN 20, creatinine is 0.7, glucose 99, calcium 9.1, total bilirubin 0.3, AST 35, ALT 70, alkaline phosphatase 124, total protein 7.2, albumin 3.6, lipase is 63. IMAGING: Abdominal x-ray; G-tube consistent with a possible kink or sharp end in the tube left midline. IMPRESSION: Gastroparesis, on TPN with dysfunctional G-tube. Recommend surgical and IR input, most likely on Tuesday. TPN, IV fluids in the interim. We will also check serum cortisol level to assess for possible Johan's disease. ENDER S. PROPECK, MD DR: KIANA/kimberly JOB#: [id number] / [id number]
[2020-05-24] MEDS: HYDROmorphone 12mg/30ml PCA 30 ML IV PRN (11:37)
[2020-05-24] MEDS: PROCHLORPERAZINE 10 MG/2 ML VIAL. IV PRN ×2 (11:44→18:19)
--- NOTE | 2020-05-24 12:04 | PDOC2 ---
HANNAH VALLE PROFESSIONAL BUILDER 05/24/20 1204: CONSULT Date of Consult Date of Consult DATE: 05/24/20 TIME: 11:59 Reason for Consult Reason for Consult: j tube dysfunction Referring Physician Referring Physician: ER Identification/Chief Complaint Chief Complaint j tube pain Source Source: Caregiver, Chart review, Patient History of Present Illness Reason for Visit: Patient known from previous admissions, surgeries, tpn management. J tube recently exchanged by IR, had increasing pain and worried about possible infection. Came to er for evaluation. imaging reveals kink in j tube---she does not use j tube for feedings, she is on TPN She does have a chronic hx of n/v, pain Past Medical History Cardiovascular: HTN Pulmonary: Asthma GI: Other Psych: Anxiety, Depression Infectious disease: Other Past Surgical History Past Surgical History: Cholecystectomy, Other Family History Family History: No Significant, Hypertension Social History ALCOHOL: none Drugs: None Lives: with Family Current Problem List Problem List Problems Medical Problems: (1) Intractable nausea and vomiting Status: Acute (2) Post-operative pain Status: Acute Current Medications Current Medications Current Medications Prochlorperazine Edisylate (Compazine) 10 mg 1X ONCE IV Last administered on 05/23/20at 13:30; Start 05/23/20 at 13:00; Stop 05/23/20 at 13:01; Status DC Morphine Sulfate (Morphine Sulfate) 5 mg 1X ONCE IV Last administered on 05/23/20at 13:29; Start 05/23/20 at 13:00; Stop 05/23/20 at 13:01; Status DC Sodium Chloride 1,000 ml @ 1,000 mls/hr 1X ONCE IV Last administered on 05/23/20at 13:27; Start 05/23/20 at 13:00; Stop 05/23/20 at 13:59; Status DC Ondansetron HCl (Zofran) 4 mg PRN Q8HRS PRN IV NAUSEA/VOMITING Last administered on 05/24/20at 08:20; Start 05/23/20 at 15:00; Stop 05/24/20 at 14:59 Morphine Sulfate (Morphine Sulfate) 4 mg PRN Q2HR PRN IV PAIN Last administered on 05/24/20at 09:46; Start 05/23/20 at 15:00; Stop 05/24/20 at 14:59 Sodium Chloride 1,000 ml @ 75 mls/hr 1X ONCE IV Last administered on 05/23/20at 15:24; Start 05/23/20 at 15:00; Stop 05/24/20 at 04:19; Status DC Hydromorphone HCl (Dilaudid) 1 mg PRN Q15MIN PRN IV/SQ PAIN GREATER THAN 3/10 Last administered on 05/23/20at 19:01; Start 05/23/20 at 15:45; Stop 05/24/20 at 15:44 Sennosides (Senna) 17.2 mg PRN BID PRN PO CONSTIPATION; Start 05/23/20 at 16:15 Docusate Sodium (Colace) 100 mg PRN DAILY PRN PO HARD STOOLS; Start 05/23/20 at 16:15 Ondansetron HCl (Zofran) 4 mg PRN Q6HRS PRN IVP NAUSEA/VOMITING Last administered on 05/24/20at 01:06; Start 05/23/20 at 16:15 Dextrose (Dextrose 50%-Water Syringe) 12.5 gm PRN Q15MIN PRN IV SEE COMMENTS; Start 05/23/20 at 16:15 Enoxaparin Sodium (Lovenox 40mg Syringe) 40 mg Q24H SQ Last administered on 05/23/20at 20:33; Start 05/23/20 at 21:00 Sodium Chloride 1,000 ml @ 100 mls/hr Q10H IV Last administered on 05/24/20at 09:46; Start 05/24/20 at 09:45 Info (Tpn Per Pharmacy) 1 each PRN DAILY PRN MC SEE COMMENTS; Start 05/24/20 at 09:45 Metoclopramide HCl (Reglan Vial) 5 mg PRN Q6HRS PRN IVP NAUSEA/VOMITING; Start 05/24/20 at 10:30 Prochlorperazine Edisylate (Compazine) 10 mg PRN Q6HRS PRN IV NAUSEA/VOMITING Last administered on 05/24/20at 11:44; Start 05/24/20 at 10:30 Naloxone HCl (Narcan) 0.4 mg PRN Q2MIN PRN IV SEE INSTRUCTIONS; Start 05/24/20 at 10:30 Sodium Chloride 1,000 ml @ 25 mls/hr Q24H IV ; Start 05/24/20 at 10:30 Hydromorphone HCl 30 ml @ 0 mls/hr CONT PRN PRN IV PER PROTOCOL Last administered on 05/24/20at 11:37; Start 05/24/20 at 10:30 Active Scripts Active Sertraline Hcl 50 Mg Tablet 100 Mg PO DAILY 30 Days [Tpn Per Pharmacy] 1 EACH Each 1 Each MC PRN DAILY PRN 30 Days [Pantoprazole Iv Push] 40 MG Vial 40 Mg IVP BIDAC 30 Days Ondansetron Hcl 4 Mg/2 Ml Vial (Ondansetron Hcl/Pf) 4 Mg/2 Ml Vial 4 Mg IVP PRN Q6HRS PRN 30 Days Enemeez (Docusate Sodium) 283 Mg/5 Ml Enema 283 Mg WV PRN DAILY PRN 30 Days Bisacodyl 10 Mg Supp.rect 10 Mg WV PRN DAILY PRN 30 Days Hydrocodone-Apap 7.5-325/15 Soln (Hydrocodone Bit/Acetaminophen) 15 Ml Solution 15 Ml JT PRN Q6HRS PRN Reported [Botox] 155 Maxalt (Rizatriptan Benzoate) 10 Mg Tablet 5 Mg PO UD PRN repeat after 2 hrs if not relieved Ajovy Autoinjector (Fremanezumab-Vfrm) 225 Mg/1.5 Ml Auto.injct 225 Mg SQ QMONTH Trelegy Ellipta 100-62.5-25 (Fluticasone/Umeclidin/Vilanter) 1 Each Blst.w.dev 1 Each IH DAILY Tizanidine Hcl 2 Mg Capsule 2 Mg PO Q8HRS PRN Hydroxyzine Hcl 50 Mg Tablet 100 Mg PO HS Zoloft (Sertraline Hcl) 50 Mg Tablet 75 Mg PO DAILY Gabapentin 600 Mg Tablet 300 Mg PO TID Midodrine Hcl 5 Mg Tablet 5 Mg PO BID Milk Of Magnesia (Magnesium Hydroxide) 400 Mg/5 Ml Oral.susp 400 Mg JT PRN DAILY MDD 400mg Mirtazapine 30 Mg Tab.rapdis 1 Tab PO QHS 30 Days Qvar Redihaler (Beclomethasone Dipropionate) 10.6 Gm Hfa.aeroba 2 Puff IH BID 30 Days Metoprolol Tartrate 50 Mg Tablet 1 Tab PO BID Dicyclomine Hcl 20 Mg Tablet 20 Mg GT PRN QID PRN Olopatadine HCl 5 Ml Drops 0.1 % OP PRN DAILY PRN Coq-10 (Ubidecarenone) 100 Mg Capsule 200 Mg GT DAILY Vitamin D3 (Cholecalciferol (Vitamin D3)) 4,000 Unit Capsule 2,000 Unit PO HS Xyzal (Levocetirizine Dihydrochloride) 5 Mg Tablet 5 Mg GT BID Proair Hfa (Albuterol Sulfate) 8.5 Gm Hfa.aer.ad 2 Puff IH PRN Q4-6HRS PRN 21 Days Ipratropium [place] 30 Ml Myton 1 Myton NS DAILY Duoneb 0.5-3(2.5) Mg/3 Ml (Albuterol/Ipratropium) 3 Ml Ampul.neb 3 Ml NEB PRN QID PRN Montelukast Sodium Tablet (Montelukast Sodium) 10 Mg Tablet 10 Mg GT DAILY PRN Multi Vitamin Daily (Multivitamin) 1 Each Tablet 1 Each GT DAILY Allergies Allergies: Coded Allergies: Penicillins (Verified Allergy, Intermediate, LIGHT RASH CHILD, 12/29/19) TOLERATES ZOSYN Sulfa (Sulfonamide Antibiotics) (Verified Allergy, Intermediate, 08/29/19) I S O L A T I O N *CONTACT* (Verified Allergy, Unknown, 12/31/19) mrsa ROS General: YES: Fatigue; No: Chills, Other (fevers ) PSYCHOLOGICAL ROS: No: Anxiety, Depression Eyes: No Blurry vision, No Double vision HEENT: No: Heacaches, Sore Throat Hematological and Lymphatic: No: Bleeding Problems, Blood Clots Respiratory: No: Cough, Shortness of breath Cardiovascular: No Chest Pain, No Palpitations Gastrointestinal: Yes Other (see hpi) Genitourinary: No Dysuria, No Retention Musculoskeletal: Yes Muscular Weakness; No Joint Pain Neurological: No Numbness/Tingling Skin: No Pruritus, No Rash Physical Exam General: Alert, Oriented X3 HEENT: Atraumatic, PERRLA Lungs: Clear to auscultation, Normal air movement Heart: Regular rate, Normal S1, Normal S2 Abdomen: Soft, Other (j tube and g tube without signs of infection) Extremities: No clubbing, No cyanosis Skin: No rashes, No breakdown Neuro: Normal gait, Normal speech Psych/Mental Status: Mental status NL, Mood NL MUSCULOSKELETAL: No deformity, No swelling Vitals VITALS Vital Signs Date Time Temp Pulse Resp B/P (MAP) Pulse Ox O2 Delivery O2 Flow Rate FiO2 05/24/20 11:38 Room Air 05/24/20 11:00 97.9 103 16 112/71 (85) 99 97.9 Labs Labs Laboratory Tests Test 05/23/20 13:25 05/23/20 14:10 05/24/20 08:35 White Blood Count 7.0 x10^3/uL (4.0-11.0) 3.5 x10^3/uL (4.0-11.0) Red Blood Count 3.32 x10^6/uL (3.50-5.40) 3.05 x10^6/uL (3.50-5.40) Hemoglobin 9.7 g/dL (12.0-15.5) 8.9 g/dL (12.0-15.5) Hematocrit 28.9 % (36.0-47.0) 26.7 % (36.0-47.0) Mean Corpuscular Volume 87 fL (79-100) 88 fL (79-100) Mean Corpuscular Hemoglobin 29 pg (25-35) 29 pg (25-35) Mean Corpuscular Hemoglobin Concent 34 g/dL (31-37) 33 g/dL (31-37) Red Cell Distribution Width 16.3 % (11.5-14.5) 16.1 % (11.5-14.5) Platelet Count 154 x10^3/uL (140-400) 149 x10^3/uL (140-400) Neutrophils (%) (Auto) 65 % (31-73) 46 % (31-73) Lymphocytes (%) (Auto) 27 % (24-48) 46 % (24-48) Monocytes (%) (Auto) 7 % (0-9) 6 % (0-9) Eosinophils (%) (Auto) 1 % (0-3) 2 % (0-3) Basophils (%) (Auto) 0 % (0-3) 0 % (0-3) Neutrophils # (Auto) 4.6 x10^3/uL (1.8-7.7) 1.6 x10^3/uL (1.8-7.7) Lymphocytes # (Auto) 1.9 x10^3/uL (1.0-4.8) 1.6 x10^3/uL (1.0-4.8) Monocytes # (Auto) 0.5 x10^3/uL (0.0-1.1) 0.2 x10^3/uL (0.0-1.1) Eosinophils # (Auto) 0.1 x10^3/uL (0.0-0.7) 0.1 x10^3/uL (0.0-0.7) Basophils # (Auto) 0.0 x10^3/uL (0.0-0.2) 0.0 x10^3/uL (0.0-0.2) Sodium Level 139 mmol/L (136-145) 142 mmol/L (136-145) Potassium Level 4.2 mmol/L (3.5-5.1) 3.7 mmol/L (3.5-5.1) Chloride Level 104 mmol/L (98-107) 108 mmol/L (98-107) Carbon Dioxide Level 26 mmol/L (21-32) 26 mmol/L (21-32) Anion Gap 9 (6-14) 8 (6-14) Blood Urea Nitrogen 20 mg/dL (7-20) 8 mg/dL (7-20) Creatinine 0.7 mg/dL (0.6-1.0) 0.6 mg/dL (0.6-1.0) Estimated GFR (Cockcroft-Gault) 104.6 125.0 BUN/Creatinine Ratio 29 (6-20) 13 (6-20) Glucose Level 99 mg/dL (70-99) 80 mg/dL (70-99) Calcium Level 9.1 mg/dL (8.5-10.1) 8.5 mg/dL (8.5-10.1) Total Bilirubin 0.3 mg/dL (0.2-1.0) 0.4 mg/dL (0.2-1.0) Aspartate Amino Transf (AST/SGOT) 35 U/L (15-37) 37 U/L (15-37) Alanine Aminotransferase (ALT/SGPT) 70 U/L (14-59) 68 U/L (14-59) Alkaline Phosphatase 124 U/L (46-116) 116 U/L (46-116) Total Protein 7.2 g/dL (6.4-8.2) 6.2 g/dL (6.4-8.2) Albumin 3.6 g/dL (3.4-5.0) 3.0 g/dL (3.4-5.0) Albumin/Globulin Ratio 1.0 (1.0-1.7) 0.9 (1.0-1.7) Lipase 63 U/L (73-393) Ethyl Alcohol Level < 10 mg/dL (0-10) Urine Collection Type Unknown Urine Color Yellow Urine Clarity Clear Urine pH 6.0 (<5.0-8.0) Urine Specific [place] 1.025 (1.000-1.030) Urine Protein Negative mg/dL (NEG-TRACE) Urine Glucose (UA) Negative mg/dL (NEG) Urine Ketones (Stick) Negative mg/dL (NEG) Urine Blood Large (NEG) Urine Nitrite Negative (NEG) Urine Bilirubin Negative (NEG) Urine Urobilinogen Dipstick 0.2 mg/dL (0.2 mg/dL) Urine Leukocyte Esterase Small (NEG) Urine RBC >40 /HPF (0-2) Urine WBC 1-4 /HPF (0-4) Urine Squamous Epithelial Cells Few /LPF Urine Bacteria Few /HPF (0-FEW) Urine Mucus Mod /LPF Urine Opiates Screen Pos (NEG) Urine Methadone Screen Neg (NEG) Urine Barbiturates Neg (NEG) Urine Phencyclidine Screen Neg (NEG) Urine Amphetamine/Methamphetamine Neg (NEG) Urine Benzodiazepines Screen Neg (NEG) Urine Cocaine Screen Neg (NEG) Urine Cannabinoids Screen Neg (NEG) Urine Ethyl Alcohol Neg (NEG) Laboratory Tests Test 05/23/20 13:25 05/23/20 14:10 05/24/20 08:35 White Blood Count 7.0 x10^3/uL (4.0-11.0) 3.5 x10^3/uL (4.0-11.0) Red Blood Count 3.32 x10^6/uL (3.50-5.40) 3.05 x10^6/uL (3.50-5.40) Hemoglobin 9.7 g/dL (12.0-15.5) 8.9 g/dL (12.0-15.5) Hematocrit 28.9 % (36.0-47.0) 26.7 % (36.0-47.0) Mean Corpuscular Volume 87 fL (79-100) 88 fL (79-100) Mean Corpuscular Hemoglobin 29 pg (25-35) 29 pg (25-35) Mean Corpuscular Hemoglobin Concent 34 g/dL (31-37) 33 g/dL (31-37) Red Cell Distribution Width 16.3 % (11.5-14.5) 16.1 % (11.5-14.5) Platelet Count 154 x10^3/uL (140-400) 149 x10^3/uL (140-400) Neutrophils (%) (Auto) 65 % (31-73) 46 % (31-73) Lymphocytes (%) (Auto) 27 % (24-48) 46 % (24-48) Monocytes (%) (Auto) 7 % (0-9) 6 % (0-9) Eosinophils (%) (Auto) 1 % (0-3) 2 % (0-3) Basophils (%) (Auto) 0 % (0-3) 0 % (0-3) Neutrophils # (Auto) 4.6 x10^3/uL (1.8-7.7) 1.6 x10^3/uL (1.8-7.7) Lymphocytes # (Auto) 1.9 x10^3/uL (1.0-4.8) 1.6 x10^3/uL (1.0-4.8) Monocytes # (Auto) 0.5 x10^3/uL (0.0-1.1) 0.2 x10^3/uL (0.0-1.1) Eosinophils # (Auto) 0.1 x10^3/uL (0.0-0.7) 0.1 x10^3/uL (0.0-0.7) Basophils # (Auto) 0.0 x10^3/uL (0.0-0.2) 0.0 x10^3/uL (0.0-0.2) Sodium Level 139 mmol/L (136-145) 142 mmol/L (136-145) Potassium Level 4.2 mmol/L (3.5-5.1) 3.7 mmol/L (3.5-5.1) Chloride Level 104 mmol/L (98-107) 108 mmol/L (98-107) Carbon Dioxide Level 26 mmol/L (21-32) 26 mmol/L (21-32) Anion Gap 9 (6-14) 8 (6-14) Blood Urea Nitrogen 20 mg/dL (7-20) 8 mg/dL (7-20) Creatinine 0.7 mg/dL (0.6-1.0) 0.6 mg/dL (0.6-1.0) Estimated GFR (Cockcroft-Gault) 104.6 125.0 BUN/Creatinine Ratio 29 (6-20) 13 (6-20) Glucose Level 99 mg/dL (70-99) 80 mg/dL (70-99) Calcium Level 9.1 mg/dL (8.5-10.1) 8.5 mg/dL (8.5-10.1) Total Bilirubin 0.3 mg/dL (0.2-1.0) 0.4 mg/dL (0.2-1.0) Aspartate Amino Transf (AST/SGOT) 35 U/L (15-37) 37 U/L (15-37) Alanine Aminotransferase (ALT/SGPT) 70 U/L (14-59) 68 U/L (14-59) Alkaline Phosphatase 124 U/L (46-116) 116 U/L (46-116) Total Protein 7.2 g/dL (6.4-8.2) 6.2 g/dL (6.4-8.2) Albumin 3.6 g/dL (3.4-5.0) 3.0 g/dL (3.4-5.0) Albumin/Globulin Ratio 1.0 (1.0-1.7) 0.9 (1.0-1.7) Lipase 63 U/L (73-393) Ethyl Alcohol Level < 10 mg/dL (0-10) Urine Collection Type Unknown Urine Color Yellow Urine Clarity Clear Urine pH 6.0 (<5.0-8.0) Urine Specific [place] 1.025 (1.000-1.030) Urine Protein Negative mg/dL (NEG-TRACE) Urine Glucose (UA) Negative mg/dL (NEG) Urine Ketones (Stick) Negative mg/dL (NEG) Urine Blood Large (NEG) Urine Nitrite Negative (NEG) Urine Bilirubin Negative (NEG) Urine Urobilinogen Dipstick 0.2 mg/dL (0.2 mg/dL) Urine Leukocyte Esterase Small (NEG) Urine RBC >40 /HPF (0-2) Urine WBC 1-4 /HPF (0-4) Urine Squamous Epithelial Cells Few /LPF Urine Bacteria Few /HPF (0-FEW) Urine Mucus Mod /LPF Urine Opiates Screen Pos (NEG) Urine Methadone Screen Neg (NEG) Urine Barbiturates Neg (NEG) Urine Phencyclidine Screen Neg (NEG) Urine Amphetamine/Methamphetamine Neg (NEG) Urine Benzodiazepines Screen Neg (NEG) Urine Cocaine Screen Neg (NEG) Urine Cannabinoids Screen Neg (NEG) Urine Ethyl Alcohol Neg (NEG) Assessment/Plan Assessment/Plan j tube dysfunction--will have IR amy tuesday for repositioning medical therapy and TPN no surgical plans JEFFERSON MORRIS MD 05/24/20 4609: CONSULT Assessment/Plan Assessment/Plan Patient seen and examined by me. Abdomen is soft some tenderness to palpation around the J-tube. Agree with Zane assessment and plan HANNAH VALLE APRN May 24, 2020 12:04 JEFFERSON MORRIS MD May 24, 2020 14:48
[2020-05-24] MEDS: TPN PER PHARMACY MC PRN ×2 (12:59→13:02)
[2020-05-24 13:38] LABS: MAGNESIUM 1.9 mg/dL (1.8-2.4); PHOSPHORUS 3.2 mg/dL (2.6-4.7)
[2020-05-24] MEDS: ENOXAPARIN 40 MG/0.4 ML SYRINGE. SQ SCH (20:40)
[2020-05-24] MEDS ORDERED: DEXTROSE 70% IV SCH (22:00)
[2020-05-24] MEDS ORDERED: TOTAL PARENTERAL NUTRITION IV SCH (22:00)
[2020-05-24] MEDS ORDERED: [UNRECOGNIZED DRUG - OTHER] IV SCH (22:00)
[2020-05-24] MEDS ORDERED: AMINO ACID IV SCH (22:00)
[2020-05-25 03:04] VITALS: BP 107/65
[2020-05-25] MEDS: IV NORMAL SALINE 1000ML BAG 1,000 ML IV SCH ×3 (05:45→16:31)
[2020-05-25 07:30] VITALS: BP 96/58
[2020-05-25] MEDS: PROCHLORPERAZINE 10 MG/2 ML VIAL. IV PRN ×2 (09:17→16:26)
[2020-05-25 11:00] VITALS: BP 101/61
--- NOTE | 2020-05-25 12:08 | PDOC ---
[employer] PROGRESS NOTE Date of Service DOS: DATE: 05/25/20 TIME: 12:07 Chief Complaint Chief Complaint Acute abdominal pain due to J-tube malfunction, there is an actually a kink seen on abdominal x-ray on the J-tube History of gastroparesis History of hypotension Idiopathic autonomic neuropathy History of Present Illness History of Present Illness 05/25/2020 Patient seen and examined She seems a little sedated Currently on hydromorphone PUBLICATIONS INSPECTOR Discussed with RN she just gave the patient some Compazine IV Also has TPN running 05/24/2020 No acute events overnight. Patient is afebrile. Pain is moderately controlled. Will start patient on IV Dilaudid via PUBLICATIONS INSPECTOR. We will switch to Compazine or Reglan for better antiemetics. No active bleeding or drainage to the J or G-tube. Pending IR and surgery evaluation. Patient's chart, labs, images were reviewed and discussed with RN 20-year-old female with past medical history of recent pyloroplasty with GJ tube placement in January 2020 and a PICC line for TPN and hypotension and idiopathic autonomic neuropathy and gastroparesis who presents with 5 out of 10 mid abdominal pain near her J-tube placement. She states that her G and J-tube placement was replaced by IR on Tuesday as she has had nausea vomiting and pain with medication administration through the tube. She states that it is a sharp pain every time it is flushed as she is unable to tolerate taking even her [place]. She states that she has similar pain whenever there is an infection about to come on through the J-tube. Denies any fevers, chest pain, diarrhea, bloody stools or hematemesis. Patient will be admitted for IV pain control because the hydrocodone is unable to provide any relief. She will be evaluated by IR and general surgery. Vitals/I&O Vitals/I&O: Vital Signs Date Time Temp Pulse Resp B/P (MAP) Pulse Ox O2 Delivery O2 Flow Rate FiO2 05/25/20 11:00 98.6 18 101/61 (74) 99 2.0 98.6 05/25/20 08:00 Room Air 05/25/20 03:04 16 I & O 05/24/20 05/24/20 05/25/20 15:00 23:00 07:00 Intake Total 0 ml 0 ml Output Total 250 ml 500 ml Balance -250 ml 0 ml -500 ml Physical Exam General: Other (Sedated) Heart: Regular rate, Normal S1, Normal S2 Lungs: Clear Abdomen: Soft, Other (j tube and g tube without signs of infection) Extremities: No clubbing, No cyanosis Skin: No rashes, No breakdown Labs Labs: Laboratory Tests Test 05/24/20 20:35 Glucose (Fingerstick) 83 mg/dL (70-99) Assessment and Plan Assessmemt and Plan Problems Medical Problems: (1) Intractable nausea and vomiting Status: Acute (2) Post-operative pain Status: Acute Acute abdominal pain due to J-tube malfunction, there is an actually a kink seen on abdominal x-ray on the J-tube History of gastroparesis History of hypotension Idiopathic autonomic neuropathy Plan IV TPN IV PUBLICATIONS INSPECTOR Dilaudid As needed Compazine General surgery consult Abdominal x-ray Continue IV fluids Orthostatic vital signs Lovenox for DVT prophylaxis Protonix GI prophylaxis ADA diet Full code Discussed with RN and SW Disposition pending surgery evaluation Surrogate decision maker is the mother Comment Review of Relevant I have reviewed the following items lalo (where applicable) has been applied. Medications: Current Medications Medications (Trade) Dose Ordered Sig/Kel Route PRN Reason Start Time Stop Time Status Last Admin Dose Admin Potassium Chloride 50 meq/ Potassium Phosphate 13.6 mmol/Magnesium Sulfate 21 meq/ Calcium Gluconate 10 meq/ Multivitamins 5 ml/Zinc/Copper/ Manganese/ Selenium 1 ml/ Sodium Acetate 90 meq/Sodium Phosphate 5.01 mmol/Total Parenteral Nutrition/Amino Acids/Dextro... 1,850 ml @ 154.167 mls/hr TPN CONT IV 05/24/20 22:00 05/25/20 09:59 DC 05/24/20 21:25 Justifications for Admission Abdominal Pain Indications Is patient in severe pain?: Yes Justification for admission: Patient has severe pain that requires (parenteral analgesic-please state analgesics and route) at least every 4 hours necessitating inpatient level of care. Is NPO status required?: Yes Justification for admission: Patient may require to be NPO for greater 24hours making it medically necessary to manage patient as inpatient. Other Justification LALITHA WEBB III, DO May 25, 2020 12:08
--- NOTE | 2020-05-25 14:08 | NUR ---
Pharmacy TPN Dosing Note S: SUNITHA SCHULTZ is a 20 year old F Currently receiving Central Cyclic TPN started B:Pertinent PMH: GASTROPARESIS/HOME TPN Height: 5 feet, 7 inches Weight: 73.7 kg Current diet: LABS: Sodium: 142 Potassium: 3.7 Chloride: 108 Calcium: Corrected Calcium: Magnesium: CO2: 26 SCr: 0.6 Glucose: 80 Albumin: 3.0 AST: 31 ALT: 68 TPN FORMULA: TPN TYPE: Central Cyclic AMINO ACIDS: 75 gm DEXTROSE: 185 gm LIPIDS: 37 gm SODIUM CHLORIDE: mEq SODIUM ACETATE: 90 mEq SODIUM PHOSPHATE: 5.01 mmol POTASSIUM CHLORIDE: 50 mEq POTASSIUM ACETATE: mEq POTASSIUM PHOSPHATE: 13.6 mmol MAGNESIUM: 10 mEq CALCIUM: 10 mEq INSULIN: units MULTIPLE VITAMIN: 5 ml TRACE ELEMENTS: 1 ml(s) TPN PLAN: CONT SAME TPN FROM [facility] TOMORROW. R: TPN TRO 12HRS DURING NIGHT. Will monitor electrolytes, glucose, and tolerance to TPN. CYDNEY ELLIS [facility], 05/25/20 [id number]
[2020-05-25 16:13] VITALS: BP 105/58
[2020-05-25 19:00] VITALS: BP 106/65
[2020-05-25] MEDS: ENOXAPARIN 40 MG/0.4 ML SYRINGE. SQ SCH (20:56)
[2020-05-25] MEDS ORDERED: TOTAL PARENTERAL NUTRITION IV SCH (22:00)
[2020-05-25] MEDS ORDERED: DEXTROSE 70% IV SCH (22:00)
[2020-05-25] MEDS ORDERED: AMINO ACID IV SCH (22:00)
[2020-05-25] MEDS ORDERED: [UNRECOGNIZED DRUG - OTHER] IV SCH (22:00)
[2020-05-25 23:11] VITALS: BP 108/67
[2020-05-26] VITALS (14 sets, daily range): BP systolic 101–123; BP diastolic 58–107
[2020-05-26] MEDS: PROCHLORPERAZINE 10 MG/2 ML VIAL. IV PRN (00:36)
[2020-05-26 09:11] LABS: CALCIUM 8.7 mg/dL (8.5-10.1); CREATININE 0.5 mg/dL (0.6-1.0); GFR 154.3; MAGNESIUM 2.2 mg/dL (1.8-2.4); PHOSPHORUS 3.7 mg/dL (2.6-4.7); POTASSIUM 4.3 mmol/L (3.5-5.1)
[2020-05-26] MEDS ORDERED: IOHEXOL 240 MG/ML 50ML VIAL. ONE (10:28)
[2020-05-26] MEDS: IV NORMAL SALINE 1000ML BAG 1,000 ML IV SCH ×4 (10:30→22:02)
--- NOTE | 2020-05-26 10:33 | RAD ---
EXAM: Abdomen, single view. HISTORY: Jejunostomy tube malfunction. COMPARISON: 05/23/2020 FINDINGS: A lateral view of the abdomen is obtained. There is a gastrostomy tube overlying expected p osition. There is a jejunostomy tube overlying the mid abdomen. The distal aspect of the tube takes a sharp turn or makes a kink, similar compared to the study performed 05/23/2020. No free air is seen. IMPRESSION: 1. Gastrostomy tube overlying expected position 2. Sharp turn or kink within the distal aspect of a jejunostomy tube within the ventral peritoneal ca vity. Electronically signed by: Lucia Johnson MD (05/26/2020 10:30 AM) [id number]
[2020-05-26] MEDS ORDERED: MIDAZOLAM HCL/PF 2 MG/2 ML VIAL. ONE (11:02)
[2020-05-26] MEDS ORDERED: fentaNYL PF VIAL 100 MCG/2 ML VIAL ONE (11:02)
--- NOTE | 2020-05-26 11:18 | PDOC ---
HANNAH VALLE DIRECTOR CARDIAC 05/26/20 1118: SURGICAL PROGRESS NOTE DATE: 05/26/20 TIME: 11:17 Subjective pain improved headed down to have j tube checked Vital Signs Vital Signs Date Time Temp Pulse Resp B/P (MAP) Pulse Ox O2 Delivery O2 Flow Rate FiO2 05/26/20 09:00 98.1 80 16 110/72 (85) 99 Nasal Cannula 2.0 98.1 I&O Intake and Output 05/26/20 07:00 Output Total 850 ml Balance -850 ml Output Urine Total 850 ml # Voids 1 General: Alert, Oriented X3, Cooperative Abdomen: Soft Labs Laboratory Tests Test 05/24/20 20:35 05/25/20 08:30 05/26/20 00:05 05/26/20 08:15 Glucose (Fingerstick) 83 mg/dL (70-99) Cortisol AM Sample 12.7 ug/dL (4.3-22.4) SARS-CoV-2 Antigen (Rapid) Negative (NEGATIVE) Sodium Level 139 mmol/L (136-145) Potassium Level 4.3 mmol/L (3.5-5.1) Chloride Level 105 mmol/L (98-107) Carbon Dioxide Level 26 mmol/L (21-32) Anion Gap 8 (6-14) Blood Urea Nitrogen 13 mg/dL (7-20) Creatinine 0.5 mg/dL (0.6-1.0) Estimated GFR (Cockcroft-Gault) 154.3 Glucose Level 104 mg/dL (70-99) Calcium Level 8.7 mg/dL (8.5-10.1) Phosphorus Level 3.7 mg/dL (2.6-4.7) Magnesium Level 2.2 mg/dL (1.8-2.4) Laboratory Tests Test 05/26/20 00:05 05/26/20 08:15 SARS-CoV-2 Antigen (Rapid) Negative (NEGATIVE) Sodium Level 139 mmol/L (136-145) Potassium Level 4.3 mmol/L (3.5-5.1) Chloride Level 105 mmol/L (98-107) Carbon Dioxide Level 26 mmol/L (21-32) Anion Gap 8 (6-14) Blood Urea Nitrogen 13 mg/dL (7-20) Creatinine 0.5 mg/dL (0.6-1.0) Estimated GFR (Cockcroft-Gault) 154.3 Glucose Level 104 mg/dL (70-99) Calcium Level 8.7 mg/dL (8.5-10.1) Phosphorus Level 3.7 mg/dL (2.6-4.7) Magnesium Level 2.2 mg/dL (1.8-2.4) Problem List Problems Medical Problems: (1) Intractable nausea and vomiting Status: Acute (2) Post-operative pain Status: Acute Assessment/Plan TPN, no surgical needs FU in office IR eval for j tube Justicifation of Admission Dx: Justifications for Admission: Justification of Admission Dx: Yes Sepsis: Bacteremia TORIE MILLER MD 05/26/20 1856: SURGICAL PROGRESS NOTE Assessment/Plan Pt seen and examined. Agree with MsGreta Valle's note Pt feels better since admission Jtube revised cont supportive care, no surgical plans. HANNAH VALLE APRN May 26, 2020 11:18 TORIE MILLER MD May 26, 2020 18:56
[2020-05-26] MEDS ORDERED: MIDAZOLAM HCL/PF 2 MG/2 ML VIAL. IV ONE (11:30)
[2020-05-26] MEDS ORDERED: fentaNYL PF VIAL 100 MCG/2 ML VIAL IV ONE (11:30)
[2020-05-26] MEDS ORDERED: IOHEXOL 240 MG/ML 50ML VIAL. IJ ONE (11:30)
--- NOTE | 2020-05-26 11:30 | PDOC ---
MODERATE SEDATION ASSESSMENT RISKS/ALTERNATIVES Risks/Alternatives Risks and alternatives of this type of sedation and procedure discussed with: RISK/ALTERNATIVES: Patient H & P ON CHART H & P H & P on chart and reviewed for co-morbid conditions and appropriate labs. H&P ON CHART: Yes STATUS PREG STATUS ASSESSED: Yes MEDS/ALLERGIES REVIEWED Meds/Allergies Reviewed Medications and Allergies including time and route of recently administered narcotics and sedatives. MEDS/ALLERGIES REVIEWED: Yes ASA RATING ASA RATING: II AIRWAY ASSESSMENT Airway Assessment Airway patency, oral function limitations, presence of caps, crowns, dentures, partials, and ability to extend neck assessed. AIRWAY ASSESSMENT: Yes MALLAMPATI SCORE MALLAMPATI SCORE: II PRE-SEDATION ASSESSMENT PRE-SEDATION ASSESSMENT: Yes ONEL LIZ MD May 26, 2020 11:30
--- NOTE | 2020-05-26 11:33 | PDOC ---
Exam Supervisor Lending Activities Supervisor Lending Activities Chay Business Continuity Coordinator Business Continuity Coordinator Cates Pre-Procedure Diagnosis Pre-Procedure Diagnosis J tube discomfort Post-Procedure Diagnosis Post-Procedure Diagnosis Same Pre existing tube patent, in acceptable position in small bowel. Observed bowel normal in motility. No evidence of obstruction. Tube shortened a bit to better match the surgical tube length (recently removed). Procedure Performed Procedure Performed J tube check, shortening, repositioning under fluoro Type of Anesthesia Type of Anesthesia Mod Sed Estimated Blood Loss EBL: 0 Specimens Specimans None Drain/Tubes Drains/Tubes 18 Fr J tube Condition of Patient Condition of Patient Stable Disposition Disposition Return to floor ONEL LIZ MD May 26, 2020 11:33
--- NOTE | 2020-05-26 12:03 | PDOC ---
Date of Service: DATE: 05/26/20 TIME: 11:57 Objective: Vital Signs: Vital Signs Date Time Temp Pulse Resp B/P (MAP) Pulse Ox O2 Delivery O2 Flow Rate FiO2 05/26/20 11:33 23 98 Room Air 05/26/20 11:25 94 05/26/20 09:00 98.1 110/72 (85) 2.0 98.1 Labs: Laboratory Tests Test 05/26/20 00:05 05/26/20 08:15 SARS-CoV-2 Antigen (Rapid) Negative Sodium Level 139 mmol/L Potassium Level 4.3 mmol/L Chloride Level 105 mmol/L Carbon Dioxide Level 26 mmol/L Anion Gap 8 Blood Urea Nitrogen 13 mg/dL Creatinine 0.5 mg/dL Estimated GFR (Cockcroft-Gault) 154.3 Glucose Level 104 mg/dL Calcium Level 8.7 mg/dL Phosphorus Level 3.7 mg/dL Magnesium Level 2.2 mg/dL Imaging: Abd X-Ray 05/23 IMPRESSION: 1. Jejunostomy tube overlying the abdomen. There is a kink or sharp bend in the tube to the left of midline. 2. Nonobstructive bowel gas pattern. KUB 05/26 IMPRESSION: 1. Gastrostomy tube overlying expected position 2. Sharp turn or kink within the distal aspect of a jejunostomy tube within the ventral peritoneal cavity. PE: out of room A/P: Chronic n/v, abd pain, constipation - J tube in place and on TPN - intolerant to many GI meds in the past S/p pylorplasty 01/2020 Rapid COVID negative 05/26/20 -- Out of room - plans to check J tube w/ IR. Will follow-up later today. Justicifation of Admission Dx: Justifications for Admission: Justification of Admission Dx: Yes Sepsis: Bacteremia LIA RO May 26, 2020 12:03
[2020-05-26] MEDS: TPN PER PHARMACY MC PRN (12:36)
--- NOTE | 2020-05-26 12:37 | NUR ---
Pharmacy TPN Dosing Note S: SCHULTZSUNITHA is a 20 year old F Currently receiving Central Cyclic TPN B:Pertinent PMH: GASTROPARESIS/HOME TPN Height: 5 feet, 7 inches Weight: 71.7 kg Current diet: LABS: Sodium: 139 Potassium: 4.3 Chloride: 105 Calcium: 8.7 Corrected Calcium: 9.50 Magnesium: 2.2 CO2: 26 SCr: 0.5 Glucose: 104 Albumin: 3.0 AST: 37 ALT: 68 TPN FORMULA: TPN TYPE: Central Cyclic AMINO ACIDS: 75 gm DEXTROSE: 185 gm LIPIDS: 37 gm SODIUM ACETATE: 90 mEq SODIUM PHOSPHATE: 5.01 mmol POTASSIUM CHLORIDE: 50 mEq POTASSIUM PHOSPHATE: 13.6 mmol MAGNESIUM: 10 mEq CALCIUM: 10 mEq MULTIPLE VITAMIN: 5 ml TRACE ELEMENTS: 1 ml(s) TPN PLAN: Stable, no changes R: Continue TPN Will monitor electrolytes, glucose, and tolerance to TPN. Renu Melgar RPH, 05/26/20 [id number]
--- NOTE | 2020-05-26 15:11 | RAD ---
05/26/2020 1:05 PM Procedure: 1. Fluoroscopic evaluation of jejunostomy tube 2. Shortening and repositioning the jejunostomy tube Clinical Indication: j tube dysfunction Discussion: The procedure was explained in its entirety to the patient or the patients designated artists' booking representative by a member of the treatment team, including a discussion of the risks, benefits and commonly accepted alternatives to the procedure, as well as the expected consequences of no therapy whatsoever. Discussion of the risks included, but was not limited to, those that are most frequent and those that are rare but possibly severe or life-threatening, as well as the possibility of unforeseen complications. All elements of maximal sterile barrier technique including the use of a cap, mask, sterile gown, sterile gloves, large sterile sheet, appropriate hand hygiene, and 2% chlorhexidine for cutaneous antisepsis (or acceptable alternative antiseptic per current guidelines) were followed for this procedure. The pre-existing jejunostomy tube was evaluated under fluoroscopy and found to be in acceptable position. Contrast was administered through the catheter which freely flushes. Contrast enters the small bowel normal fashion. Normal small bowel peristalsis appeared to be present. No overt dilatation or evidence of obstruction is seen. A guidewire was advanced into the small bowel through the pre-existing tube. The tube was withdrawn over the wire and trimmed approximately 3 inches. The tube was then replaced, the retention balloon inflated with 5 cc of sterile saline, and the catheter secured in place with a variable stoma. Sterile dressings were applied. Total fluoroscopy time: 2.9 min Dose area product: 6 Gycm2 The procedures performed under conscious sedation including continuous cardiopulmonary monitoring via dedicated sedation nurse. [id number] sedation time: 21 minutes Impression: 1. Jejunostomy tube is in acceptable position without evidence of kinking or other malfunction. The catheter is patent. 2. The catheter was shortened secondary to patient preference, and because of the surgically placed tube the patient previously had was tolerated from many years, it was approximately 3 inches shorter in length. The new tube was trimmed to as closely as possible match these conditions.
--- NOTE | 2020-05-26 18:05 | NUR ---
SW following for discharge planning. Spoke with RN and reviewed chart. Pt from home with [facility] infusion for TPN. SW consulted per pt frequent hospitalizations. Pt 02 and IV potassium. Discharge plan is home with assistance per PT recommendation. SW following.
[2020-05-26] MEDS: ENOXAPARIN 40 MG/0.4 ML SYRINGE. SQ SCH (20:36)
[2020-05-26] MEDS: diphenhydrAMINE 50 MG/ML VIAL IVP PRN (20:37)
[2020-05-26] MEDS ORDERED: AMINO ACID IV SCH (22:00)
[2020-05-26] MEDS ORDERED: DEXTROSE 70% IV SCH (22:00)
[2020-05-26] MEDS ORDERED: [UNRECOGNIZED DRUG - OTHER] IV SCH (22:00)
[2020-05-26] MEDS ORDERED: TOTAL PARENTERAL NUTRITION IV SCH (22:00)
--- NOTE | 2020-05-26 22:07 | PDOC ---
PROGRESS NOTES Date of Service: DATE: 05/26/20 TIME: 23:04 Chief Complaint Chief Complaint Acute abdominal pain due to J-tube malfunction, there is an actually a kink seen on abdominal x-ray on the J-tube, repositioned by IR today History of gastroparesis History of hypotension Idiopathic autonomic neuropathy Plan: hope to restart his usual History of Present Illness History of Present Illness 05/26/2020 Pain eems improved, succesful reposition under fluoro of her J tube reassess in the am hopefully discharge in the next 24 to 48 hours 05/25/2020 Patient seen and examined She seems a little sedated Currently on hydromorphone BEHAVIORAL SPECIALIST Discussed with RN she just gave the patient some Compazine IV Also has TPN running 05/24/2020 No acute events overnight. Patient is afebrile. Pain is moderately controlled. Will start patient on IV Dilaudid via BEHAVIORAL SPECIALIST. We will switch to Compazine or Reglan for better antiemetics. No active bleeding or drainage to the J or G-tube. Pending IR and surgery evaluation. Patient's chart, labs, images were reviewed and discussed with RN 20-year-old female with past medical history of recent pyloroplasty with GJ tube placement in January 2020 and a PICC line for TPN and hypotension and idiopathic autonomic neuropathy and gastroparesis who presents with 5 out of 10 mid abdominal pain near her J-tube placement. She states that her G and J-tube placement was replaced by IR on Tuesday as she has had nausea vomiting and pain with medication administration through the tube. She states that it is a sharp pain every time it is flushed as she is unable to tolerate taking even her [place]. She states that she has similar pain whenever there is an infection about to come on through the J-tube. Denies any fevers, chest pain, diarrhea, bloody stools or hematemesis. Patient will be admitted for IV pain control because the hydrocodone is unable to provide any relief. She will be evaluated by IR and general surgery. Vitals Vitals Vital Signs Date Time Temp Pulse Resp B/P (MAP) Pulse Ox O2 Delivery O2 Flow Rate FiO2 05/26/20 19:00 98.5 97 20 110/62 (78) 96 Room Air 98.5 05/26/20 15:00 2.0 Physical Exam General: Alert, Oriented X3, Cooperative Heart: Regular rate, Normal S1, Normal S2 Lungs: Clear Abdomen: Soft Extremities: No clubbing, No cyanosis Skin: No rashes, No breakdown Labs LABS Laboratory Tests Test 05/26/20 00:05 05/26/20 08:15 SARS-CoV-2 Antigen (Rapid) Negative (NEGATIVE) Sodium Level 139 mmol/L (136-145) Potassium Level 4.3 mmol/L (3.5-5.1) Chloride Level 105 mmol/L (98-107) Carbon Dioxide Level 26 mmol/L (21-32) Anion Gap 8 (6-14) Blood Urea Nitrogen 13 mg/dL (7-20) Creatinine 0.5 mg/dL (0.6-1.0) Estimated GFR (Cockcroft-Gault) 154.3 Glucose Level 104 mg/dL (70-99) Calcium Level 8.7 mg/dL (8.5-10.1) Phosphorus Level 3.7 mg/dL (2.6-4.7) Magnesium Level 2.2 mg/dL (1.8-2.4) Assessment and Plan Assessmemt and Plan Problems Medical Problems: (1) Intractable nausea and vomiting Status: Acute (2) Post-operative pain Status: Acute Comment Review of Relevant I have reviewed the following items lalo (where applicable) has been applied. Labs Laboratory Tests Test 05/25/20 08:30 05/26/20 00:05 05/26/20 08:15 Cortisol AM Sample 12.7 ug/dL (4.3-22.4) SARS-CoV-2 Antigen (Rapid) Negative (NEGATIVE) Sodium Level 139 mmol/L (136-145) Potassium Level 4.3 mmol/L (3.5-5.1) Chloride Level 105 mmol/L (98-107) Carbon Dioxide Level 26 mmol/L (21-32) Anion Gap 8 (6-14) Blood Urea Nitrogen 13 mg/dL (7-20) Creatinine 0.5 mg/dL (0.6-1.0) Estimated GFR (Cockcroft-Gault) 154.3 Glucose Level 104 mg/dL (70-99) Calcium Level 8.7 mg/dL (8.5-10.1) Phosphorus Level 3.7 mg/dL (2.6-4.7) Magnesium Level 2.2 mg/dL (1.8-2.4) Laboratory Tests Test 05/26/20 00:05 05/26/20 08:15 SARS-CoV-2 Antigen (Rapid) Negative (NEGATIVE) Sodium Level 139 mmol/L (136-145) Potassium Level 4.3 mmol/L (3.5-5.1) Chloride Level 105 mmol/L (98-107) Carbon Dioxide Level 26 mmol/L (21-32) Anion Gap 8 (6-14) Blood Urea Nitrogen 13 mg/dL (7-20) Creatinine 0.5 mg/dL (0.6-1.0) Estimated GFR (Cockcroft-Gault) 154.3 Glucose Level 104 mg/dL (70-99) Calcium Level 8.7 mg/dL (8.5-10.1) Phosphorus Level 3.7 mg/dL (2.6-4.7) Magnesium Level 2.2 mg/dL (1.8-2.4) Microbiology 05/23/20 Urine Culture - Final, Complete 05/23/20 Antimicrobic Susceptibility - Final, Complete Medications Current Medications Prochlorperazine Edisylate (Compazine) 10 mg 1X ONCE IV Last administered on 05/23/20at 13:30; Start 05/23/20 at 13:00; Stop 05/23/20 at 13:01; Status DC Morphine Sulfate (Morphine Sulfate) 5 mg 1X ONCE IV Last administered on 05/23/20at 13:29; Start 05/23/20 at 13:00; Stop 05/23/20 at 13:01; Status DC Sodium Chloride 1,000 ml @ 1,000 mls/hr 1X ONCE IV Last administered on 05/23/20at 13:27; Start 05/23/20 at 13:00; Stop 05/23/20 at 13:59; Status DC Ondansetron HCl (Zofran) 4 mg PRN Q8HRS PRN IV NAUSEA/VOMITING Last administered on 05/24/20at 08:20; Start 05/23/20 at 15:00; Stop 05/24/20 at 14:59; Status DC Morphine Sulfate (Morphine Sulfate) 4 mg PRN Q2HR PRN IV PAIN Last administered on 05/24/20at 09:46; Start 05/23/20 at 15:00; Stop 05/24/20 at 14:59; Status DC Sodium Chloride 1,000 ml @ 75 mls/hr 1X ONCE IV Last administered on 05/23/20at 15:24; Start 05/23/20 at 15:00; Stop 05/24/20 at 04:19; Status DC Hydromorphone HCl (Dilaudid) 1 mg PRN Q15MIN PRN IV/SQ PAIN GREATER THAN 3/10 Last administered on 05/23/20at 19:01; Start 05/23/20 at 15:45; Stop 05/24/20 at 15:44; Status DC Sennosides (Senna) 17.2 mg PRN BID PRN PO CONSTIPATION; Start 05/23/20 at 16:15 Docusate Sodium (Colace) 100 mg PRN DAILY PRN PO HARD STOOLS; Start 05/23/20 at 16:15 Ondansetron HCl (Zofran) 4 mg PRN Q6HRS PRN IVP NAUSEA/VOMITING, 1ST CHOICE Last administered on 05/24/20at 21:34; Start 05/23/20 at 16:15 Dextrose (Dextrose 50%-Water Syringe) 12.5 gm PRN Q15MIN PRN IV SEE COMMENTS; Start 05/23/20 at 16:15 Enoxaparin Sodium (Lovenox 40mg Syringe) 40 mg Q24H SQ Last administered on 05/26/20at 20:36; Start 05/23/20 at 21:00 Sodium Chloride 1,000 ml @ 100 mls/hr Q10H IV Last administered on 05/26/20at 22:02; Start 05/24/20 at 09:45 Info (Tpn Per Pharmacy) 1 each PRN DAILY PRN MC SEE COMMENTS Last administered on 05/26/20at 12:36; Start 05/24/20 at 09:45 Metoclopramide HCl (Reglan Vial) 5 mg PRN Q6HRS PRN IVP NAUSEA/VOMITING, 3RD CHOICE; Start 05/24/20 at 10:30 Prochlorperazine Edisylate (Compazine) 10 mg PRN Q6HRS PRN IV NAUSEA/VOMITING, 2ND CHOICE Last administered on 05/26/20at 00:36; Start 05/24/20 at 10:30 Naloxone HCl (Narcan) 0.4 mg PRN Q2MIN PRN IV SEE INSTRUCTIONS; Start 05/24/20 at 10:30 Sodium Chloride 1,000 ml @ 25 mls/hr Q24H IV ; Start 05/24/20 at 10:30 Hydromorphone HCl 30 ml @ 0 mls/hr CONT PRN PRN IV PER PROTOCOL Last administered on 05/24/20at 11:37; Start 05/24/20 at 10:30 Potassium Chloride 50 meq/ Potassium Phosphate 13.6 mmol/Magnesium Sulfate 21 meq/ Calcium Gluconate 10 meq/ Multivitamins 5 ml/Zinc/Copper/ Manganese/ Selenium 1 ml/ Sodium Acetate 90 meq/Sodium Phosphate 5.01 mmol/Total Parenteral Nutrition/Amino Acids/Dextro... 1,850 ml @ 154.167 mls/hr TPN CONT IV Last administered on 05/24/20at 21:25; Start 05/24/20 at 22:00; Stop 05/25/20 at 09:59; Status DC Potassium Chloride 50 meq/ Potassium Phosphate 13.6 mmol/Magnesium Sulfate 21 meq/ Calcium Gluconate 10 meq/ Multivitamins 5 ml/Zinc/Copper/ Manganese/ Selenium 1 ml/ Sodium Acetate 90 meq/Sodium Phosphate 5.01 mmol/Total Parenteral Nutrition/Amino Acids/Dextro... 1,850 ml @ 154.167 mls/hr TPN CONT IV Last administered on 05/25/20at 20:57; Start 05/25/20 at 22:00; Stop 05/26/20 at 09:59; Status DC Iohexol (Omnipaque 240 Mg/ml) 50 ml STK-MED ONCE .ROUTE ; Start 05/26/20 at 10:28; Stop 05/26/20 at 10:28; Status DC Midazolam HCl (Versed) 2 mg STK-MED ONCE .ROUTE ; Start 05/26/20 at 11:02; Stop 05/26/20 at 11:03; Status DC Fentanyl Citrate (Fentanyl 2ml Vial) 100 mcg STK-MED ONCE .ROUTE ; Start 05/26/20 at 11:02; Stop 05/26/20 at 11:03; Status DC Midazolam HCl (Versed) 2 mg 1X ONCE IV Last administered on 05/26/20at 11:34; Start 05/26/20 at 11:30; Stop 05/26/20 at 11:31; Status DC Fentanyl Citrate (Fentanyl 2ml Vial) 100 mcg 1X ONCE IV Last administered on 05/26/20at 11:33; Start 05/26/20 at 11:30; Stop 05/26/20 at 11:31; Status DC Iohexol (Omnipaque 240 Mg/ml) 50 ml 1X ONCE IJ Last administered on 05/26/20at 11:31; Start 05/26/20 at 11:30; Stop 05/26/20 at 11:31; Status DC Potassium Chloride 50 meq/ Potassium Phosphate 13.6 mmol/Magnesium Sulfate 21 meq/ Calcium Gluconate 10 meq/ Multivitamins 5 ml/Zinc/Copper/ Manganese/ Selenium 1 ml/ Sodium Acetate 90 meq/Sodium Phosphate 5.01 mmol/Total Parenteral Nutrition/Amino Acids/Dextro... 1,850 ml @ 154.167 mls/hr TPN CONT IV Last administered on 05/26/20at 20:37; Start 05/26/20 at 22:00; Stop 05/27/20 at 09:59 Diphenhydramine HCl (Benadryl) 25 mg PRN Q6HRS PRN IVP ITCHING Last administered on 05/26/20at 20:37; Start 05/26/20 at 20:15 Active Scripts Active Sertraline Hcl 50 Mg Tablet 100 Mg PO DAILY 30 Days [Tpn Per Pharmacy] 1 EACH Each 1 Each MC PRN DAILY PRN 30 Days [Pantoprazole Iv Push] 40 MG Vial 40 Mg IVP BIDAC 30 Days Ondansetron Hcl 4 Mg/2 Ml Vial (Ondansetron Hcl/Pf) 4 Mg/2 Ml Vial 4 Mg IVP PRN Q6HRS PRN 30 Days Enemeez (Docusate Sodium) 283 Mg/5 Ml Enema 283 Mg TN PRN DAILY PRN 30 Days Bisacodyl 10 Mg Supp.rect 10 Mg TN PRN DAILY PRN 30 Days Hydrocodone-Apap 7.5-325/15 Soln (Hydrocodone Bit/Acetaminophen) 15 Ml Solution 15 Ml JT PRN Q6HRS PRN Reported [Botox] 155 Maxalt (Rizatriptan Benzoate) 10 Mg Tablet 5 Mg PO UD PRN repeat after 2 hrs if not relieved Ajovy Autoinjector (Fremanezumab-Vfrm) 225 Mg/1.5 Ml Auto.injct 225 Mg SQ QMONTH Trelegy Ellipta 100-62.5-25 (Fluticasone/Umeclidin/Vilanter) 1 Each Blst.w.dev 1 Each IH DAILY Tizanidine Hcl 2 Mg Capsule 2 Mg PO Q8HRS PRN Hydroxyzine Hcl 50 Mg Tablet 100 Mg PO HS Zoloft (Sertraline Hcl) 50 Mg Tablet 75 Mg PO DAILY Gabapentin 600 Mg Tablet 300 Mg PO TID Midodrine Hcl 5 Mg Tablet 5 Mg PO BID Milk Of Magnesia (Magnesium Hydroxide) 400 Mg/5 Ml Oral.susp 400 Mg JT PRN DAILY MDD 400mg Mirtazapine 30 Mg Tab.rapdis 1 Tab PO QHS 30 Days Qvar Redihaler (Beclomethasone Dipropionate) 10.6 Gm Hfa.aeroba 2 Puff IH BID 30 Days Metoprolol Tartrate 50 Mg Tablet 1 Tab PO BID Dicyclomine Hcl 20 Mg Tablet 20 Mg GT PRN QID PRN Olopatadine HCl 5 Ml Drops 0.1 % OP PRN DAILY PRN Coq-10 (Ubidecarenone) 100 Mg Capsule 200 Mg GT DAILY Vitamin D3 (Cholecalciferol (Vitamin D3)) 4,000 Unit Capsule 2,000 Unit PO HS Xyzal (Levocetirizine Dihydrochloride) 5 Mg Tablet 5 Mg GT BID Proair Hfa (Albuterol Sulfate) 8.5 Gm Hfa.aer.ad 2 Puff IH PRN Q4-6HRS PRN 21 Days Ipratropium [place] 30 Ml Gackle 1 Gackle NS DAILY Duoneb 0.5-3(2.5) Mg/3 Ml (Albuterol/Ipratropium) 3 Ml Ampul.neb 3 Ml NEB PRN QI D PRN Montelukast Sodium Tablet (Montelukast Sodium) 10 Mg Tablet 10 Mg GT DAILY PRN Multi Vitamin Daily (Multivitamin) 1 Each Tablet 1 Each GT DAILY Vitals/I & O Vital Sign - Last 24 Hours 05/25/20 05/26/20 05/26/20 05/26/20 23:11 03:11 08:00 09:00 Temp 97.9 98.1 98.1 97.9 98.1 98.1 Pulse 88 92 80 Resp 16 16 16 B/P (MAP) 108/67 (81) 101/64 (76) 110/72 (85) Pulse Ox 97 98 99 O2 Delivery Room Air Nasal Cannula Room Air Nasal Cannula O2 Flow Rate 2.0 05/26/20 05/26/20 05/26/20 05/26/20 09:00 11:00 11:25 11:33 Temp 98.1 98.3 98.1 98.3 Pulse 80 79 94 Resp 16 16 23 B/P (MAP) 110/72 (85) 121/69 (86) Pulse Ox 99 96 98 98 O2 Delivery Nasal Cannula Nasal Cannula Room Air Room Air O2 Flow Rate 2.0 2.0 05/26/20 05/26/20 05/26/20 05/26/20 11:45 12:00 12:15 12:30 Pulse 87 79 80 74 B/P (MAP) 121/71 (88) 110/70 (83) 115/70 (85) 107/58 (74) 05/26/20 05/26/20 05/26/20 05/26/20 13:00 13:30 14:00 15:00 Pulse 82 87 89 80 B/P (MAP) 123/107 (112) 115/74 (88) 120/77 (91) 114/70 (85) 05/26/20 05/26/20 15:00 19:00 Temp 98.0 98.5 98.0 98.5 Pulse 95 97 Resp 16 20 B/P (MAP) 119/73 (88) 110/62 (78) Pulse Ox 99 96 O2 Delivery Nasal Cannula Room Air O2 Flow Rate 2.0 Intake and Output 05/25/20 05/25/20 05/26/20 14:00 22:00 06:00 Output Total 850 ml Balance -850 ml Justicifation of Admission Dx: Justifications for Admission: Justification of Admission Dx: Yes Sepsis: Bacteremia SHE PAYNE MD May 26, 2020 22:06
[2020-05-27] MEDS: PROCHLORPERAZINE 10 MG/2 ML VIAL. IV PRN (00:25)
[2020-05-27] MEDS: HYDROmorphone 12mg/30ml PCA 30 ML IV PRN (00:26)
[2020-05-27 03:00] VITALS: BP 104/68
[2020-05-27] MEDS: diphenhydrAMINE 50 MG/ML VIAL IVP PRN ×3 (06:26→20:25)
[2020-05-27 07:00] VITALS: BP 113/59
[2020-05-27] MEDS: IV NORMAL SALINE 1000ML BAG 1,000 ML IV SCH ×4 (08:30→20:23)
[2020-05-27 08:42] LABS: CALCIUM 8.5 mg/dL (8.5-10.1); CREATININE 0.5 mg/dL (0.6-1.0); GFR 154.3; MAGNESIUM 2.1 mg/dL (1.8-2.4); PHOSPHORUS 3.9 mg/dL (2.6-4.7); POTASSIUM 4.2 mmol/L (3.5-5.1)
[2020-05-27 11:00] VITALS: BP 112/57
--- NOTE | 2020-05-27 11:07 | PDOC ---
[facility] PROGRESS NOTE Date of Service DOS: DATE: 05/27/20 TIME: 11:01 Chief Complaint Chief Complaint A/P: Acute abdominal pain due to J-tube malfunction, there is an actually a kink seen on abdominal x-ray on the J-tube, repositioned by IR today History of gastroparesis History of hypotension Idiopathic autonomic neuropathy Plan: home when ok with surgery and IR History of Present Illness History of Present Illness Ms Mustafa is a 20-year-old female with past medical history of recent pyloroplasty with GJ tube placement in January 2020 and a PICC line for TPN and hypotension and idiopathic autonomic neuropathy and gastroparesis who presents with 5 out of 10 mid abdominal pain near her J-tube placement. She states that her G and J-tube placement was replaced by IR on Tuesday as she has had nausea vomiting and pain with medication administration through the tube. She states that it is a sharp pain every time it is flushed as she is unable to tolerate taking even her [place]. She states that she has similar pain whenever there is an infection about to come on through the J-tube. Denies any fevers, chest pain, diarrhea, bloody stools or hematemesis. Patient admitted for IV pain control because the hydrocodone is unable to provide any relief. 1/2: No acute events overnight. Patient is afebrile. Pain is moderately controlled. Dilaudid via POWER LINE LINEMAN. No active bleeding or drainage to the J or G-tube. Pending IR and surgery evaluation. 05/25: Currently on hydromorphone POWER LINE LINEMAN. Also has TPN running 05/26: Successful reposition under fluoro of her J tube Labs stable. Afebrile. Still on dilaudid POWER LINE LINEMAN, but asking when she may be able to discharge. She has already had two bowel movements, which she notes is more than she has in a week. Vitals/I&O Vitals/I&O: Vital Signs Date Time Temp Pulse Resp B/P (MAP) Pulse Ox O2 Delivery O2 Flow Rate FiO2 05/27/20 07:00 97.9 97 16 113/59 (77) 100 Room Air 97.9 05/26/20 15:00 2.0 I & O 05/26/20 05/26/20 05/27/20 15:00 23:00 07:00 Intake Total 0 ml Output Total 500 ml Balance -500 ml Physical Exam General: Alert, Oriented X3, Cooperative Heart: Regular rate, Normal S1, Normal S2 Lungs: Clear Abdomen: Soft Extremities: No clubbing, No cyanosis Skin: No rashes, No breakdown Labs Labs: Laboratory Tests Test 05/27/20 07:25 Sodium Level 140 mmol/L (136-145) Potassium Level 4.2 mmol/L (3.5-5.1) Chloride Level 106 mmol/L (98-107) Carbon Dioxide Level 25 mmol/L (21-32) Anion Gap 9 (6-14) Blood Urea Nitrogen 12 mg/dL (7-20) Creatinine 0.5 mg/dL (0.6-1.0) Estimated GFR (Cockcroft-Gault) 154.3 Glucose Level 110 mg/dL (70-99) Calcium Level 8.5 mg/dL (8.5-10.1) Phosphorus Level 3.9 mg/dL (2.6-4.7) Magnesium Level 2.1 mg/dL (1.8-2.4) Assessment and Plan Assessmemt and Plan Problems Medical Problems: (1) Intractable nausea and vomiting Status: Acute (2) Post-operative pain Status: Acute Comment Review of Relevant I have reviewed the following items lalo (where applicable) has been applied. Medications: Current Medications Medications (Trade) Dose Ordered Sig/Kel Route PRN Reason Start Time Stop Time Status Last Admin Dose Admin Midazolam HCl (Versed) 2 mg 1X ONCE IV 05/26/20 11:30 05/26/20 11:31 DC 05/26/20 11:34 Fentanyl Citrate (Fentanyl 2ml Vial) 100 mcg 1X ONCE IV 05/26/20 11:30 05/26/20 11:31 DC 05/26/20 11:33 Iohexol (Omnipaque 240 Mg/ml) 50 ml 1X ONCE IJ 05/26/20 11:30 05/26/20 11:31 DC 05/26/20 11:31 Potassium Chloride 50 meq/ Potassium Phosphate 13.6 mmol/Magnesium Sulfate 21 meq/ Calcium Gluconate 10 meq/ Multivitamins 5 ml/Zinc/Copper/ Manganese/ Selenium 1 ml/ Sodium Acetate 90 meq/Sodium Phosphate 5.01 mmol/Total Parenteral Nutrition/Amino Acids/Dextro... 1,850 ml @ 154.167 mls/hr TPN CONT IV 1/4/21 22:00 05/27/20 09:59 DC 05/26/20 20:37 Diphenhydramine HCl (Benadryl) 25 mg PRN Q6HRS PRN IVP ITCHING 05/26/20 20:15 05/27/20 06:26 Justifications for Admission Abdominal Pain Indications Is patient in severe pain?: Yes Justification for admission: Patient has severe pain that requires (parenteral analgesic-please state analgesics and route) at least every 4 hours necessitating inpatient level of care. Is NPO status required?: Yes Justification for admission: Patient may require to be NPO for greater 24hours making it medically necessary to manage patient as inpatient. Other Justification ABIGAIL GARCIA MD May 27, 2020 11:07
--- NOTE | 2020-05-27 12:04 | PDOC ---
SURGICAL PROGRESS NOTE DATE: 05/27/20 TIME: 12:03 Subjective Pt reports feeling a little better, passing multiple stools Vital Signs Vital Signs Date Time Temp Pulse Resp B/P (MAP) Pulse Ox O2 Delivery O2 Flow Rate FiO2 05/27/20 08:00 Room Air 05/27/20 07:00 97.9 97 16 113/59 (77) 100 97.9 05/26/20 15:00 2.0 I&O Intake and Output 05/27/20 07:00 Intake Total 0 ml Output Total 500 ml Balance -500 ml Intake Oral 0 ml Output Urine Total 500 ml # Bowel Movements 1 General: Alert, Oriented X3, Cooperative, No acute distress Abdomen: Soft Labs Laboratory Tests Test 05/26/20 00:05 05/26/20 08:15 05/27/20 07:25 SARS-CoV-2 Antigen (Rapid) Negative (NEGATIVE) Sodium Level 139 mmol/L (136-145) 140 mmol/L (136-145) Potassium Level 4.3 mmol/L (3.5-5.1) 4.2 mmol/L (3.5-5.1) Chloride Level 105 mmol/L (98-107) 106 mmol/L (98-107) Carbon Dioxide Level 26 mmol/L (21-32) 25 mmol/L (21-32) Anion Gap 8 (6-14) 9 (6-14) Blood Urea Nitrogen 13 mg/dL (7-20) 12 mg/dL (7-20) Creatinine 0.5 mg/dL (0.6-1.0) 0.5 mg/dL (0.6-1.0) Estimated GFR (Cockcroft-Gault) 154.3 154.3 Glucose Level 104 mg/dL (70-99) 110 mg/dL (70-99) Calcium Level 8.7 mg/dL (8.5-10.1) 8.5 mg/dL (8.5-10.1) Phosphorus Level 3.7 mg/dL (2.6-4.7) 3.9 mg/dL (2.6-4.7) Magnesium Level 2.2 mg/dL (1.8-2.4) 2.1 mg/dL (1.8-2.4) Laboratory Tests Test 05/27/20 07:25 Sodium Level 140 mmol/L (136-145) Potassium Level 4.2 mmol/L (3.5-5.1) Chloride Level 106 mmol/L (98-107) Carbon Dioxide Level 25 mmol/L (21-32) Anion Gap 9 (6-14) Blood Urea Nitrogen 12 mg/dL (7-20) Creatinine 0.5 mg/dL (0.6-1.0) Estimated GFR (Cockcroft-Gault) 154.3 Glucose Level 110 mg/dL (70-99) Calcium Level 8.5 mg/dL (8.5-10.1) Phosphorus Level 3.9 mg/dL (2.6-4.7) Magnesium Level 2.1 mg/dL (1.8-2.4) Problem List Problems Medical Problems: (1) Intractable nausea and vomiting Status: Acute (2) Post-operative pain Status: Acute Assessment/Plan may be resolving enteritis cont supportive care and OK to work towards d/c no surgical plans. Justicifation of Admission Dx: Justifications for Admission: Justification of Admission Dx: Yes Sepsis: Bacteremia TORIE MILLER MD May 27, 2020 12:04
[2020-05-27] MEDS: TPN PER PHARMACY MC PRN (12:22)
--- NOTE | 2020-05-27 12:22 | PDOC ---
Date of Service: DATE: 05/27/20 TIME: 12:20 Subjective: Subjective: Pain the same. Says plans to try J using J tube if okay w/ IR. Gets 12 hrs of TPN at night. Mushy stools today, ongoing nausea. Objective: Vital Signs: Vital Signs Date Time Temp Pulse Resp B/P (MAP) Pulse Ox O2 Delivery O2 Flow Rate FiO2 05/27/20 08:00 Room Air 05/27/20 07:00 97.9 97 16 113/59 (77) 100 97.9 05/26/20 15:00 2.0 Labs: Laboratory Tests Test 05/27/20 07:25 Sodium Level 140 mmol/L Potassium Level 4.2 mmol/L Chloride Level 106 mmol/L Carbon Dioxide Level 25 mmol/L Anion Gap 9 Blood Urea Nitrogen 12 mg/dL Creatinine 0.5 mg/dL Estimated GFR (Cockcroft-Gault) 154.3 Glucose Level 110 mg/dL Calcium Level 8.5 mg/dL Phosphorus Level 3.9 mg/dL Magnesium Level 2.1 mg/dL PE: GEN: NAD LUNGS: CTAB HEART: RRR ABD: G tube and J tube in place, soft, non-distended, some tenderness around J tube - vague NEURO/PSYCH: A & O 3 A/P: Chronic n/v and abd pain s/p J tube Chronic anemia Rapid COVID negative -- Continue per IR and surgery. Justicifation of Admission Dx: Justifications for Admission: Justification of Admission Dx: Yes Sepsis: Bacteremia LIA RO May 27, 2020 12:22
--- NOTE | 2020-05-27 12:23 | NUR ---
Pharmacy TPN Dosing Note S: SCHULTZSUNITHA is a 20 year old F Currently receiving Central Cyclic TPN B:Pertinent PMH: GASTROPARESIS/HOME TPN Height: 5 feet, 7 inches Weight: 69.3 kg Current diet: LABS: Sodium: 140 Potassium: 4.2 Chloride: 106 Calcium: 8.5 Corrected Calcium: 9.30 Magnesium: 2.1 CO2: 25 SCr: 0.5 Glucose: 110 Albumin: 3.0 AST: 37 ALT: 68 TPN FORMULA: TPN TYPE: Central Cyclic AMINO ACIDS: 75 gm DEXTROSE: 185 gm LIPIDS: 37 gm SODIUM ACETATE: 90 mEq SODIUM PHOSPHATE: 5.01 mmol POTASSIUM CHLORIDE: 50 mEq POTASSIUM PHOSPHATE: 13.6 mmol MAGNESIUM: 10 mEq CALCIUM: 10 mEq MULTIPLE VITAMIN: 5 ml TRACE ELEMENTS: 1 ml(s) TPN PLAN: Stable, no changes R: Continue TPN Will monitor electrolytes, glucose, and tolerance to TPN. Renu Melgar RPH, 05/27/20 [id number]
[2020-05-27 15:00] VITALS: BP 112/70
--- NOTE | 2020-05-27 16:38 | NUR ---
SW following for discharge planning. Spoke with RN and reviewed chart. Pt from home with [facility] infusion for TPN. Pt now on room air. Discharge plan is home, self-care with resumption of home infusion when stable. SW following.
[2020-05-27] MEDS ORDERED: HYDROcodon/APAP 7.5/325MG ORAL 15 ML SOLUTION JT PRN (18:30)
[2020-05-27] MEDS ORDERED: DOCUSATE SODIUM 283 MG/5 ML ENEMA. PR PRN (18:30)
[2020-05-27] MEDS ORDERED: BISACODYL 10 MG SUPP.RECT. PR PRN (18:30)
[2020-05-27] MEDS ORDERED: ALBUTEROL SULFATE 2.5 MG/3 ML NEBU. NEB PRN (18:30)
[2020-05-27] MEDS ORDERED: MAGNESIUM HYDROXIDE 2,400 MG/30 ML ORAL.SUSP. JT PRN (18:30)
[2020-05-27 19:00] VITALS: BP 109/73
[2020-05-27] MEDS: ENOXAPARIN 40 MG/0.4 ML SYRINGE. SQ SCH (20:24)
[2020-05-27] MEDS ORDERED: TOTAL PARENTERAL NUTRITION IV SCH (22:00)
[2020-05-27] MEDS ORDERED: [UNRECOGNIZED DRUG - OTHER] IV SCH (22:00)
[2020-05-27] MEDS ORDERED: AMINO ACID IV SCH (22:00)
[2020-05-27] MEDS ORDERED: DEXTROSE 70% IV SCH (22:00)
[2020-05-27 23:00] VITALS: BP 126/66
[2020-05-28] MEDS: diphenhydrAMINE 50 MG/ML VIAL IVP PRN ×3 (02:59→15:38)
[2020-05-28 03:00] VITALS: BP 120/56
[2020-05-28 07:00] VITALS: BP 100/61
[2020-05-28 08:42] LABS: CALCIUM 8.7 mg/dL (8.5-10.1); CREATININE 0.4 mg/dL (0.6-1.0); GFR 199.6; MAGNESIUM 2.1 mg/dL (1.8-2.4); PHOSPHORUS 4.2 mg/dL (2.6-4.7); POTASSIUM 4.2 mmol/L (3.5-5.1)
--- NOTE | 2020-05-28 09:27 | PDOC ---
[employer] PROGRESS NOTE Date of Service DOS: DATE: 05/28/20 TIME: 09:26 Chief Complaint Chief Complaint A/P: Acute abdominal pain due to J-tube malfunction, there is an actually a kink seen on abdominal x-ray on the J-tube, repositioned by IR today History of gastroparesis History of hypotension Idiopathic autonomic neuropathy Plan: home when ok with surgery and IR History of Present Illness History of Present Illness Ms Mustafa is a 20-year-old female with past medical history of recent pyloroplasty with GJ tube placement in January 2020 and a PICC line for TPN and hypotension and idiopathic autonomic neuropathy and gastroparesis who presents with 5 out of 10 mid abdominal pain near her J-tube placement. She states that her G and J-tube placement was replaced by IR on Tuesday as she has had nausea vomiting and pain with medication administration through the tube. She states that it is a sharp pain every time it is flushed as she is unable to tolerate taking even her [place]. She states that she has similar pain whenever there is an infection about to come on through the J-tube. Denies any fevers, chest pain, diarrhea, bloody stools or hematemesis. Patient admitted for IV pain control because the hydrocodone is unable to provide any relief. 1/2: No acute events overnight. Patient is afebrile. Pain is moderately controlled. Dilaudid via KNOWLEDGE MANAGER. No active bleeding or drainage to the J or G-tube. Pending IR and surgery evaluation. 3: Currently on hydromorphone KNOWLEDGE MANAGER. Also has TPN running 05/26: Successful reposition under fluoro of her J tube 05/27: Labs stable. Afebrile. On dilaudid KNOWLEDGE MANAGER, asking when she may be able to discharge. She has already had two bowel movements, which she notes is more than she has in a week. Afebrile. Taking pain meds per G-tube now. She complains of nausea after requesting IV Benadryl. Discussed taking Zofran ODT in addition to the IV that she administers to herself at home. Vitals/I&O Vitals/I&O: Vital Signs Date Time Temp Pulse Resp B/P (MAP) Pulse Ox O2 Delivery O2 Flow Rate FiO2 05/28/20 08:00 Room Air 05/28/20 07:00 98.0 75 16 100/61 (74) 95 2.0 98.0 I & O 05/27/20 05/27/20 05/28/20 15:00 23:00 07:00 Intake Total 1740 ml 200 ml 0 ml Output Total 2000 ml Balance 1740 ml 200 ml -2000 ml Physical Exam General: Alert, Oriented X3, Cooperative, No acute distress Heart: Regular rate, Normal S1, Normal S2 Lungs: Clear Abdomen: Soft Extremities: No clubbing, No cyanosis Skin: No rashes, No breakdown Labs Labs: Laboratory Tests Test 05/28/20 07:45 Sodium Level 139 mmol/L (136-145) Potassium Level 4.2 mmol/L (3.5-5.1) Chloride Level 103 mmol/L (98-107) Carbon Dioxide Level 26 mmol/L (21-32) Anion Gap 10 (6-14) Blood Urea Nitrogen 11 mg/dL (7-20) Creatinine 0.4 mg/dL (0.6-1.0) Estimated GFR (Cockcroft-Gault) 199.6 Glucose Level 96 mg/dL (70-99) Calcium Level 8.7 mg/dL (8.5-10.1) Phosphorus Level 4.2 mg/dL (2.6-4.7) Magnesium Level 2.1 mg/dL (1.8-2.4) Assessment and Plan Assessmemt and Plan Problems Medical Problems: (1) Intractable nausea and vomiting Status: Acute (2) Post-operative pain Status: Acute Comment Review of Relevant I have reviewed the following items lalo (where applicable) has been applied. Medications: Current Medications Medications (Trade) Dose Ordered Sig/Kel Route PRN Reason Start Time Stop Time Status Last Admin Dose Admin Potassium Chloride 50 meq/ Potassium Phosphate 13.6 mmol/Magnesium Sulfate 21 meq/ Calcium Gluconate 10 meq/ Multivitamins 5 ml/Zinc/Copper/ Manganese/ Selenium 1 ml/ Sodium Acetate 90 meq/Sodium Phosphate 5.01 mmol/Total Parenteral Nutrition/Amino Acids/Dextro... 1,850 ml @ 154.167 mls/hr TPN CONT IV 05/27/20 22:00 05/28/20 09:59 05/27/20 22:47 Justifications for Admission Abdominal Pain Indications Is patient in severe pain?: Yes Justification for admission: Patient has severe pain that requires (parenteral analgesic-please state analgesics and route) at least every 4 hours necessitating inpatient level of care. Is NPO status required?: Yes Justification for admission: Patient may require to be NPO for greater 24hours making it medically necessary to manage patient as inpatient. Other Justification ABIGAIL GARCIA MD May 28, 2020 09:27
[2020-05-28] MEDS ORDERED: ONDANSETRON ODT 4 MG TAB.RAPDIS. PO PRN (09:30)
[2020-05-28] MEDS: IV NORMAL SALINE 1000ML BAG 1,000 ML IV SCH ×2 (10:30→13:45)
--- NOTE | 2020-05-28 10:55 | PDOC ---
Date of Service: DATE: 05/28/20 TIME: 10:54 Subjective: Subjective: Feels the same, hasn't tried J tube. Objective: Vital Signs: Vital Signs Date Time Temp Pulse Resp B/P (MAP) Pulse Ox O2 Delivery O2 Flow Rate FiO2 05/28/20 08:00 Room Air 05/28/20 07:00 98.0 75 16 100/61 (74) 95 2.0 98.0 Labs: Laboratory Tests Test 05/28/20 07:45 Sodium Level 139 mmol/L Potassium Level 4.2 mmol/L Chloride Level 103 mmol/L Carbon Dioxide Level 26 mmol/L Anion Gap 10 Blood Urea Nitrogen 11 mg/dL Creatinine 0.4 mg/dL Estimated GFR (Cockcroft-Gault) 199.6 Glucose Level 96 mg/dL Calcium Level 8.7 mg/dL Phosphorus Level 4.2 mg/dL Magnesium Level 2.1 mg/dL PE: GEN: NAD LUNGS: CTAB HEART: RRR ABD:G and J tubes NEURO/PSYCH: A & O 3 A/P: Chronic n/v and abd pain s/p J tube adjustment COVID negative 05/26 -- Continue per IR and surgery. Justicifation of Admission Dx: Justifications for Admission: Justification of Admission Dx: Yes Sepsis: Bacteremia LIA RO May 28, 2020 10:55
[2020-05-28 11:00] VITALS: BP 106/65
[2020-05-28] MEDS: TPN PER PHARMACY MC PRN (12:41)
[2020-05-28] MEDS ORDERED: ONDA4TAB12 PO (14:07)
--- NOTE | 2020-05-28 14:24 | SNU/HH DC ---
DISCHARGE WITH HOME HEALTH DISCHARGE INFORMATION: Discharge Date: May 28, 2020 Final Diagnosis: Problems Medical Problems: (1) Intractable nausea and vomiting Status: Acute (2) Post-operative pain Status: Acute Condition on Discharge: Stable CODE STATUS: Code Status: Full HOME HEALTH: Face to Face: I certify this patient is under my care and that I, or a nurse practitioner or physician's clinic assistant working with me, had a face to face encounter that meets the physician face to face encounter requirements with this patient on 05/28/2020. Medical Complications: Other (Home TPN, Gastroparesis) [facility]ci For: Admin/Educate Injections, Assess/Skilled Observatio, IV Infusion Therapy, Medication Management, Pain Management RN For Eval/Treatment: Yes Physical Therapy For: Evalulation/Treatment Occupational Therapy For: Evaluation/Treatment Pt Meets Homebound Status: Extreme weakness w/ amb. POST DISCHARGE ORDERS: Activity Instructions for Disc: Activity as tolerated Weight Bearing Status after Di: No restrictions Bathing Instructions: Shower-keep dressing dry, No Tub Bath until see DIET AFTER DISCHARGE: Cardiac Wound/Incision Care: Keep wound/cast CDI CHECKS AFTER DISCHARGE: Checks after discharge: Check your Temp as needed Comment: [place] FOLLOW-UP: PCP to follow Home Health: Adwoa Holland NP Follow up with: Dr. Nick Land 1-2 weeks TREATMENT/EQUIPMENT ORDERS: Adaptive Equipment Issued: None Infusion Equipment, home use: Feeding Tube, PortaCath CERTIFICATION STATEMENT: Certification Statement: Certification Statement: Based on the above finding, I certify that this patient is confined to the home and needs intermittent long term care, physical therapy and/or speech therapy, or continues to need occupational therapy.~ This patient is under my care, and I have initiated the establishment of the plan of care.~ This patient will be followed by myself or a community physician who will periodically review the plan of care. Home Meds Active Scripts Ondansetron (ONDANSETRON ODT) 4 Mg Tab.rapdis, 4 MG PO PRN Q6HRS PRN for NAUSEA/VOMITING for 30 Days, #60 TAB 11 Refills Prov:ABIGAIL GARCIA MD 05/28/20 Sertraline Hcl (SERTRALINE HCL) 50 Mg Tablet, 100 MG PO DAILY for depression for 30 Days, #30 TAB Prov:JOHNNIE MAR MD 02/17/20 [Tpn Per Pharmacy] 1 EACH EACH No Conflict Check, 1 EACH MC PRN DAILY PRN for SEE COMMENTS for 30 Days, #30 Prov:NICK XAVIER MD 11/30/19 [Pantoprazole Iv Push] 40 MG VIAL No Conflict Check, 40 MG IVP BIDAC for GERD for 30 Days, #30 Prov:NICK XAVIER MD 11/30/19 Ondansetron Hcl/Pf (ONDANSETRON HCL 4 MG/2 ML VIAL) 4 Mg/2 Ml Vial, 4 MG IVP PRN Q6HRS PRN for NAUSEA/VOMITING 1ST CHOICE for 30 Days, #90 EACH Prov:NICK XAVIER MD 11/30/19 Docusate Sodium (ENEMEEZ) 283 Mg/5 Ml Enema, 283 MG NV PRN DAILY PRN for CONSTIPATION, 2nd CHOICE for 30 Days, #20 EACH Prov:NICK XAVIER MD 11/30/19 Bisacodyl (BISACODYL) 10 Mg Supp.rect, 10 MG NV PRN DAILY PRN for CONSTIPATION, 1sT CHOICE for 30 Days, #30 SUPP.RECT Prov:NICK XAVIER MD 11/30/19 Hydrocodone Bit/Acetaminophen (HYDROCODONE-APAP 7.5-325/15 SOLN ) 15 Ml Solution, 15 ML JT PRN Q6HRS PRN for PAIN, #250 ML 0 Refills Prov:KRISTEN ESPAÑA MD 09/03/19 Reported Medications [Botox] No Conflict Check, 155 05/23/20 Rizatriptan Benzoate (MAXALT) 10 Mg Tablet, 5 MG PO UD PRN for migraine, #9 TAB 2 Refills repeat after 2 hrs if not relieved 05/23/20 Fremanezumab-Vfrm (Ajovy Autoinjector) 225 Mg/1.5 Ml Auto.injct, 225 MG SQ QMONTH for migraine, SYR 05/23/20 Fluticasone/Umeclidin/Vilanter (Trelegy Ellipta 100-62.5-25) 1 Each Blst.w.dev, 1 EACH IH DAILY for asthma 05/23/20 Tizanidine Hcl (TIZANIDINE HCL) 2 Mg Capsule, 2 MG PO Q8HRS PRN for MUSCLE SPASMS, CAP 05/23/20 Hydroxyzine Hcl (HYDROXYZINE HCL) 50 Mg Tablet, 100 MG PO HS for sleep, TAB 05/23/20 Sertraline Hcl (ZOLOFT) 50 Mg Tablet, 75 MG PO DAILY for depression, #30 TAB 2 Refills 05/23/20 Gabapentin (GABAPENTIN) 600 Mg Tablet, 300 MG PO TID for NEUROGENIC PAIN, TAB 05/21/20 Midodrine Hcl (MIDODRINE HCL) 5 Mg Tablet, 5 MG PO BID for Ortho Hypo, TAB 05/21/20 Magnesium Hydroxide (MILK OF MAGNESIA) 400 Mg/5 Ml Oral.susp, 400 MG JT PRN DAILY for constipation MDD 400mg, MISC 02/20/20 Mirtazapine (MIRTAZAPINE) 30 Mg Tab.rapdis, 1 TAB PO QHS for depression for 30 Days, #30 TAB 0 Refills 02/20/20 Beclomethasone Dipropionate (Qvar Redihaler) 10.6 Gm Hfa.aeroba, 2 PUFF IH BID for asthma for 30 Days, #1 INHALER 0 Refills 02/20/20 Metoprolol Tartrate (METOPROLOL TARTRATE) 50 Mg Tablet, 1 TAB PO BID for headache, #60 TAB 5 Refills 12/27/19 Dicyclomine Hcl (DICYCLOMINE HCL) 20 Mg Tablet, 20 MG GT PRN QID PRN for stomach spasms, TAB 08/20/19 Olopatadine HCl (Olopatadine HCl) 5 Ml Drops, 0.1 % OP PRN DAILY PRN for eye relief, DROP 08/20/19 Ubidecarenone (COQ-10) 100 Mg Capsule, 200 MG GT DAILY for supplement, CAP 08/20/19 Cholecalciferol (Vitamin D3) (VITAMIN D3) 4,000 Unit Capsule, 2000 UNIT PO HS for supplement, CAP 08/20/19 Levocetirizine Dihydrochloride (XYZAL) 5 Mg Tablet, 5 MG GT BID for allergies, TAB 08/20/19 Albuterol Sulfate (Proair Hfa) 8.5 Gm Hfa.aer.ad, 2 PUFF IH PRN Q4-6HRS PRN for wheezing for 21 Days, #1 INHALER 0 Refills 08/20/19 Ipratropium [place] (IPRATROPIUM BROMIDE) 30 Ml [place], 1 SPRAY NS DAILY for allergies, SPRAY 08/20/19 Ipratropium/Albuterol Sulfate (DUONEB 0.5-3(2.5) MG/3 ML) 3 Ml Ampul.neb, 3 ML NEB PRN QID PRN for asthma, EACH 08/20/19 Montelukast Sodium (MONTELUKAST SODIUM TABLET ) 10 Mg Tablet, 10 MG GT DAILY PRN for asthma, TAB 0 Refills 08/20/19 Multivitamin (MULTI VITAMIN DAILY) 1 Each Tablet, 1 EACH GT DAILY for supplement, TAB 08/20/19 ABIGAIL GARCIA MD May 28, 2020 14:24
--- NOTE | 2020-05-28 14:41 | PDOC3 ---
Discharge Summary Visit Information Date of Admission: May 23, 2020 Date of Discharge: May 28, 2020 Admitting Diagnosis: Intractable nausea and vomiting Final Diagnosis Problems Medical Problems: (1) Intractable nausea and vomiting Status: Acute (2) Post-operative pain Status: Acute Brief Hospital Course Allergies Allergies Coded Allergies Type Severity Reaction Last Updated Verified Penicillins Allergy Intermediate LIGHT RASH CHILD 12/29/19 Yes Sulfa (Sulfonamide Antibiotics) Allergy Intermediate 08/29/19 Yes I S O L A T I O N *CONTACT* Allergy Unknown 12/31/19 Yes Vital Signs Vital Signs Date Time Temp Pulse Resp B/P (MAP) Pulse Ox O2 Delivery O2 Flow Rate FiO2 05/28/20 11:00 98.9 91 18 106/65 (79) 100 Nasal Cannula 2.0 98.9 Lab Results Laboratory Tests Test 05/27/20 07:25 05/28/20 07:45 Sodium Level 140 mmol/L (136-145) 139 mmol/L (136-145) Potassium Level 4.2 mmol/L (3.5-5.1) 4.2 mmol/L (3.5-5.1) Chloride Level 106 mmol/L (98-107) 103 mmol/L (98-107) Carbon Dioxide Level 25 mmol/L (21-32) 26 mmol/L (21-32) Anion Gap 9 (6-14) 10 (6-14) Blood Urea Nitrogen 12 mg/dL (7-20) 11 mg/dL (7-20) Creatinine 0.5 mg/dL (0.6-1.0) 0.4 mg/dL (0.6-1.0) Estimated GFR (Cockcroft-Gault) 154.3 199.6 Glucose Level 110 mg/dL (70-99) 96 mg/dL (70-99) Calcium Level 8.5 mg/dL (8.5-10.1) 8.7 mg/dL (8.5-10.1) Phosphorus Level 3.9 mg/dL (2.6-4.7) 4.2 mg/dL (2.6-4.7) Magnesium Level 2.1 mg/dL (1.8-2.4) 2.1 mg/dL (1.8-2.4) Laboratory Tests Test 05/28/20 07:45 Sodium Level 139 mmol/L (136-145) Potassium Level 4.2 mmol/L (3.5-5.1) Chloride Level 103 mmol/L (98-107) Carbon Dioxide Level 26 mmol/L (21-32) Anion Gap 10 (6-14) Blood Urea Nitrogen 11 mg/dL (7-20) Creatinine 0.4 mg/dL (0.6-1.0) Estimated GFR (Cockcroft-Gault) 199.6 Glucose Level 96 mg/dL (70-99) Calcium Level 8.7 mg/dL (8.5-10.1) Phosphorus Level 4.2 mg/dL (2.6-4.7) Magnesium Level 2.1 mg/dL (1.8-2.4) Brief Hospital Course Ms Mustafa is a 20-year-old female w/ PMHx recent pyloroplasty with GJ tube placement in January 2020 and a PICC line for TPN and hypotension and idiopathic autonomic neuropathy and gastroparesis who presents with 5 out of 10 mid abdominal pain near her J-tube placement. She states that her G and J-tube placement was replaced by IR on Tuesday as she has had nausea vomiting and pain with medication administration through the tube. She states that it is a sharp pain every time it is flushed as she is unable to tolerate taking even her [place]. She states that she has similar pain whenever there is an infection about to come on through the J-tube. Denies any fevers, chest pain, diarrhea, bloody stools or hematemesis. Patient admitted for IV pain control because the hydrocodone is unable to provide any relief. 1/2: No acute events overnight. Patient is afebrile. Pain is moderately controlled. Dilaudid via EMPLOYMENT PROGRAM REPRESENTATIVE. No active bleeding or drainage to the J or G-tube. Pending IR and surgery evaluation. 05/25: Currently on hydromorphone EMPLOYMENT PROGRAM REPRESENTATIVE. Also has TPN running 05/26: Successful reposition under fluoro of her J tube 05/27: Labs stable. Afebrile. On dilaudid EMPLOYMENT PROGRAM REPRESENTATIVE, asking when she may be able to discharge. She has already had two bowel movements, which she notes is more than she has in a week. Afebrile. Taking pain meds per G-tube now. She complains of nausea after requesting IV Benadryl. Discussed taking Zofran ODT in addition to the IV that she administers to herself at home. 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 Greater than 30 minutes spent on d/c home with home health and infusions Discharge Information Condition at Discharge: Improved Follow Up: Weeks (1) Disposition/Orders: D/C to Home w/ HH Scheduled Beclomethasone Dipropionate (Qvar Redihaler) 10.6 Gm Hfa.aeroba, 2 PUFF IH BID for asthma for 30 Days, #1 Ref 0 (Reported) Entered as Reported by: MARCELINA QUIÑONEZ on 02/20/203 Last Action: Reviewed on 05/23/201945 by RAMSES BANDA Cholecalciferol (Vitamin D3) (Vitamin D3) 4,000 Unit Capsule, 2,000 UNIT PO HS for supplement, (Reported) Entered as Reported by: BUSTER SULTANA on 08/20/19 1219 Last Action: Reviewed on 05/23/201945 by RAMSES BANDA Fluticasone/Umeclidin/Vilanter (Trelegy Ellipta 100-62.5-25) 1 Each Blst.w.dev, 1 EACH IH DAILY for asthma, (Reported) Entered as Reported by: RAMSES BANDA on 05/23/202247 Last Action: New Order on 05/23/202247 by RAMSES BANDA Fremanezumab-Vfrm (Ajovy Autoinjector) 225 Mg/1.5 Ml Auto.injct, 225 MG SQ QMONTH for migraine, (Reported) Entered as Reported by: RAMSES BANDA on 05/23/202247 Last Action: New Order on 05/23/202247 by RAMSES BANDA Gabapentin (Gabapentin) 600 Mg Tablet, 300 MG PO TID for NEUROGENIC PAIN, (Reported) Entered as Reported by: YAMILETH TALAMANTES on 05/21/20 1232 Last Action: Reviewed on 05/23/201945 by RAMSES BANDA Hydroxyzine Hcl (Hydroxyzine Hcl) 50 Mg Tablet, 100 MG PO HS for sleep, (Reported) Entered as Reported by: RAMSES BANDA on 05/23/202247 Last Action: New Order on 05/23/202247 by RAMSES BANDA Ipratropium [place] (Ipratropium [place]) 30 Ml [place], 1 SPRAY NS DAILY for allergies, (Reported) Entered as Reported by: BUSTER SULTANA on 08/20/191218 Last Action: Reviewed on 05/23/201945 by RAMSES BANDA Levocetirizine Dihydrochloride (Xyzal) 5 Mg Tablet, 5 MG GT BID for allergies, (Reported) Entered as Reported by: BUSTER SULTANA on 08/20/191218 Last Action: Reviewed on 05/23/201945 by RAMSES BANDA Magnesium Hydroxide (Milk Of Magnesia) 400 Mg/5 Ml Oral.susp, 400 MG JT PRN DAILY for constipation MDD 400mg, (Reported) Entered as Reported by: MARCELINA QUIÑONEZ on 02/20/20422 Last Action: Continued on 05/27/201819 by ABIGAIL GARCIA MD Metoprolol Tartrate (Metoprolol Tartrate) 50 Mg Tablet, 1 TAB PO BID for headache, #60 Ref 5 (Reported) Entered as Reported by: Crystal Sultana on 12/27/19 0525 Last Action: Reviewed on 05/23/201945 by RAMSES BANDA Midodrine Hcl (Midodrine Hcl) 5 Mg Tablet, 5 MG PO BID for Ortho Hypo, (Reported) Entered as Reported by: YAMILETH TALAMANTES on 05/21/20 1232 Last Action: Reviewed on 05/23/201945 by RAMSES BANDA Mirtazapine (Mirtazapine) 30 Mg Tab.rapdis, 1 TAB PO QHS for depression for 30 Days, #30 Ref 0 (Reported) Entered as Reported by: MARCELINA QUIÑONEZ on 02/20/20422 Last Action: Reviewed on 05/23/201945 by RAMSES BANDA Multivitamin (Multi Vitamin Daily) 1 Each Tablet, 1 EACH GT DAILY for supplement, (Reported) Entered as Reported by: BUSTER SULTANA on 08/20/191217 Last Action: Reviewed on 05/23/201945 by RAMSES BANDA Sertraline Hcl (Sertraline Hcl) 50 Mg Tablet, 100 MG PO DAILY for depression for 30 Days, #30 Prescribed by: JOHNNIE MAR on 02/17/20 1000 Last Action: Reviewed on 05/23/201945 by RAMSES BANDA Sertraline Hcl (Zoloft) 50 Mg Tablet, 75 MG PO DAILY for depression, #30 Ref 2 (Reported) Entered as Reported by: RAMSES BANDA on 05/23/201945 Last Action: New Order on 05/23/201945 by RAMSES BANDA Ubidecarenone (Coq-10) 100 Mg Capsule, 200 MG GT DAILY for supplement, (Reported) Entered as Reported by: BUSTER SULTANA on 08/20/191218 Last Action: Reviewed on 05/23/201945 by RAMSES BANDA [Pantoprazole Iv Push] 40 MG VIAL, 40 MG IVP BIDAC for GERD for 30 Days, #30 Prescribed by: JEFFERSON XAVIER MD on 11/30/191613 Last Action: Reviewed on 05/23/201945 by RAMSES BANDA Scheduled PRN Albuterol Sulfate (Proair Hfa) 8.5 Gm Hfa.aer.ad, 2 PUFF IH PRN Q4-6HRS PRN for wheezing for 21 Days, #1 Ref 0 (Reported) Entered as Reported by: BUSTER SULTANA on 08/20/191218 Last Action: Reviewed on 05/23/201945 by RAMSES BANDA Bisacodyl (Bisacodyl) 10 Mg Supp.rect, 10 MG NC PRN DAILY PRN for CONSTIPATION, 1sT CHOICE for 30 Days, #30 Prescribed by: JEFFERSON XAVIER MD on 11/30/191613 Last Action: Continued on 05/27/201819 by ABIGAIL GARCIA MD Dicyclomine Hcl (Dicyclomine Hcl) 20 Mg Tablet, 20 MG GT PRN QID PRN for stomach spasms, (Reported) Entered as Reported by: BUSTER SULTANA on 3/30/20 1219 Last Action: Reviewed on 05/23/201945 by RAMSES BANDA Docusate Sodium (Enemeez) 283 Mg/5 Ml Enema, 283 MG NC PRN DAILY PRN for CONSTIPATION, 2nd CHOICE for 30 Days, #20 Prescribed by: JEFFERSON XAVIER MD on 11/30/19 1614 Last Action: Continued on 05/27/201819 by ABIGAIL GARCIA MD Hydrocodone Bit/Acetaminophen (Hydrocodone-Apap 7.5-325/15 Soln ) 15 Ml Solution, 15 ML JT PRN Q6HRS PRN for PAIN, #250 Ref 0 Prescribed by: KRISTEN ESPAÑA on 09/03/19 0828 Last Action: Continued on 05/27/201819 by ABIGAIL GARCIA MD Ipratropium/Albuterol Sulfate (Duoneb 0.5-3(2.5) Mg/3 Ml) 3 Ml Ampul.neb, 3 ML NEB PRN QID PRN for asthma, (Reported) Entered as Reported by: BUSTER SULTANA on 08/20/198 Last Action: Continued on 05/27/201819 by ABIGAIL GARCIA MD Montelukast Sodium (Montelukast Sodium Tablet ) 10 Mg Tablet, 10 MG GT DAILY PRN for asthma, Ref 0 (Reported) Entered as Reported by: BUSTER SULTANA on 08/20/19 1218 Last Action: Reviewed on 05/23/201945 by RAMSES BANDA Olopatadine HCl (Olopatadine HCl) 5 Ml Drops, 0.1 % OP PRN DAILY PRN for eye relief, (Reported) Entered as Reported by: BUSTER SULTANA on 08/20/19 1219 Last Action: Reviewed on 05/23/201945 by RAMSES BANDA Ondansetron (Ondansetron Odt) 4 Mg Tab.rapdis, 4 MG PO PRN Q6HRS PRN for NAUSEA/VOMITING for 30 Days, #60 Ref 11 Prescribed by: ABIGAIL GARCIA MD on 05/28/20 1407 Ondansetron Hcl/Pf (Ondansetron Hcl 4 Mg/2 Ml Vial) 4 Mg/2 Ml Vial, 4 MG IVP PRN Q6HRS PRN for NAUSEA/VOMITING 1ST CHOICE for 30 Days, #90 Prescribed by: JEFFERSON XAVIER MD on 11/30/191613 Last Action: Reviewed on 05/23/201945 by RAMSES BANDA Rizatriptan Benzoate (Maxalt) 10 Mg Tablet, 5 MG PO UD PRN for migraine, #9 Ref 2 (Reported) repeat after 2 hrs if not relieved Entered as Reported by: RAMSES BANDA on 05/23/202247 Last Action: New Order on 05/23/202247 by RAMSES BANDA Tizanidine Hcl (Tizanidine Hcl) 2 Mg Capsule, 2 MG PO Q8HRS PRN for MUSCLE SPASMS, (Reported) Entered as Reported by: RAMSES BANDA on 05/23/202247 Last Action: New Order on 05/23/202247 by RAMSES BANDA [Tpn Per Pharmacy] 1 EACH EACH, 1 EACH MC PRN DAILY PRN for SEE COMMENTS for 30 Days, #30 Prescribed by: JEFFERSON XAVIER MD on 11/30/191613 Last Action: Reviewed on 05/23/201945 by RAMSES BANDA Miscellaneous Medications [Botox] , 155, (Reported) Entered as Reported by: RAMSES BANDA on 05/23/202247 Last Action: New Order on 05/23/202247 by RAMSES BANDA Justicifation of Admission Dx: Justifications for Admission: Justification of Admission Dx: Yes Sepsis: Bacteremia ABIGAIL GARCIA MD May 28, 2020 14:41
--- NOTE | 2020-05-28 14:48 | NUR ---
SW following for discharge planning. Spoke with RN and reviewed chart. Pt from home with [facility] infusion for TPN. Pt to discharge home today, 05/28 self-care. Orders written for HH. SW met with pt prior to discharge. Pt declined HH. Pt reported that RN from [facility] comes weekly on Mondays for line care and dressing changes. SW faxed clinicals and discharge orders to [facility] RN to call [facility] pharmacy ([phone]) for resumption of care orders. Spoke with Arvind from [facility] to coordinate care and confirm orders were received. No further SW needs at this time.
[2020-05-28 15:00] VITALS: BP 121/71
--- NOTE | 2020-05-28 16:48 | NUR ---
Discharge Note: PT DISCHARGED HOME WITH INFUSION THERAPY. PT LEFT FACILITY VIA PRIVATE VEHICLE WITH [facility] AT 1630. PT STABLE AND ALERT UPON DISCHARGE. PT DISCHARGED WITH DL PICC PRESENT TO FERN, DRESSING C/D/I, CHANGED ON 05/27/19. PT EDUCATED ABOUT DISCHARGE INSTRUCTIONS, DISCHARGE MEDICATIONS, AND FOLLOW-UP CARE. PT EDUCATED ABOUT PICC LINE USAGE AND DRESSINGS, AND G-TUBE SITE CARE AND INSTRUCTIONS. PT VOICED NO CONCERNS AT THIS TIME. PT LEFT FACILITY WITH ALL PERSONAL BELONGINGS. SUNITHA SCHULTZ Discharge instructions and discharge home medications reviewed with Patient and a copy given. All questions have been answered and understanding verbalized.
[2020-05-28] MEDS ORDERED: AMINO ACID IV SCH (22:00)
[2020-05-28] MEDS ORDERED: DEXTROSE 70% IV SCH (22:00)
[2020-05-28] MEDS ORDERED: [UNRECOGNIZED DRUG - OTHER] IV SCH (22:00)
[2020-05-28] MEDS ORDERED: TOTAL PARENTERAL NUTRITION IV SCH (22:00)
[2020-06-25] MEDS ORDERED: DEXT4TAB20 PO (08:01)
== END 2020-05-28 16:30 | disposition home or self-care (01) | DRG 395 ==
LOC: ER 12:12 → ED HOLD 14:49 → 5 NORTH 18:51
PROVIDERS: ADMIT Internal Medicine; ATTEND Internal Medicine
PROC: 0D2DXUZ Change Feeding Device in Lower Intestinal Tract, External Approach (ICD-10-PCS; principal; 2020-05-26)
DX: K94.13 Enterostomy malfunction (principal); D64.9 Anemia, unspecified; G90.9 Disorder of the autonomic nervous system, unspecified; I10 Essential (primary) hypertension; J45.909 Unspecified asthma, uncomplicated; F32.9 Major depressive disorder, single episode, unspecified; F41.9 Anxiety disorder, unspecified; G43.909 Migraine, unspecified, not intractable, without status migrainosus; G89.29 Other chronic pain; K21.9 Gastro-esophageal reflux disease without esophagitis; I95.9 Hypotension, unspecified; Z82.0 Family history of epilepsy and other diseases of the nervous system; Z82.49 Family history of ischemic heart disease and other diseases of the circulatory system; Z90.49 Acquired absence of other specified parts of digestive tract; Z88.0 Allergy status to penicillin; Z88.2 Allergy status to sulfonamides; Z91.041 Radiographic dye allergy status; Z20.822 Contact with and (suspected) exposure to COVID-19
CPT/HCPCS: 36415; 49465; 74018; 74021; 80048; 80053; 80307; 81001; 82533; 82962; 83690; 83735; 84100; 85025; 87077; 87086; 87186; 87426; 96361; 96374; 96375; 96376; 99285; C1769; G0480; J0610; J0780; J1170; J1200; J1650; J2250; J2270; J2405; J3010; J3475; J3480; J3490; J7030; Q9966; U0003; 97110-GO; 97116-GP; 97530-GO; 97535-GO; G0378

== ENCOUNTER 2020-05-30 13:19 | Emergency (ER) | payer OTHER, MEDICAID ==
[~2020-05-30] VITALS: Ht 170.2 cm; Wt 68.0 kg
[~2020-05-30 13:19] MED LIST changes: +BOTOX; +FLUT1BLS3 IH; +FREM225A SQ; +HYDR50TA PO; +ONDA4TAB12 PO; +RIZA10TA PO; +SERT50TA PO; +TIZA2CAP PO
--- NOTE | 2020-05-30 14:22 | PHYS DOC ---
Past Medical History Past Medical History: GERD, Hypertension, Migraines, Other Additional Past Medical Histor: chronic ABD pain and N/V, GASTROPARESIS Past Surgical History: Cholecystectomy, Tonsillectomy, Other Additional Past Surgical Histo: G-tube x20; J-tube Smoking Status: Never Smoker Alcohol Use: None General Adult EDM: Chief Complaint: ABDOMINAL PAIN HPI: HPI: 20-year-old female with a history gastroparesis presenting the emergency department with generalized epigastric abdominal pain. She has a G-tube and a J-tube. She was recently discharged from the hospital. She has a aching pain that is worse when she feeds herself which improves when she uses small amounts of meals. She denies any vomiting. She denies any fevers or chills. The pain is sharp nonradiating without alleviating factors. Review of systems negative for chest pain shortness of breath vomiting fevers chills. All other review of systems negative. ED course: 20-year-old female presenting with abdominal pain. Vital signs are unremarkable. Blood work is unremarkable. CT unremarkable. Patient was treated for pain in the emergency department and feeling better on reexamination. Will discharge to follow-up with PCP in 1 to 2 days. The patient has been examined and was not found to have an emergency medical condi tion. The patient was then discharged home in stable condition to follow up with their primary care physician over the next 1-2 days. They were to return if their symptoms worsened or if they were concerned for any reason. They were also instructed to return to the emergency department if they were unable to get the recommended and appropriate follow-up. [id number] discharge instructions and return precautions were given. Patient's questions were answered to their satisfaction. Patient is comfortable with plan. Heart Score: Risk Factors: Risk Factors: DM, Current or recent (<one month) smoker, HTN, HLP, family history of CAD, obesity. Risk Scores: Score 0 - 3: 2.5% MACE over next 6 weeks - Discharge Home Score 4 - 6: 20.3% MACE over next 6 weeks - Admit for Clinical Observation Score 7 - 10: 72.7% MACE over next 6 weeks - Early Invasive Strategies Allergies: Allergies: Allergies Coded Allergies Type Severity Reaction Last Updated Verified Penicillins Allergy Intermediate LIGHT RASH CHILD 12/29/19 Yes Sulfa (Sulfonamide Antibiotics) Allergy Intermediate 08/29/19 Yes I S O L A T I O N *CONTACT* Allergy Unknown 12/31/19 Yes Physical Exam: PE: Constitutional: Well developed, well nourished, no acute distress, non-toxic appearance. [] HENT: Normocephalic, atraumatic, bilateral external ears normal, oropharynx moist, no oral exudates, nose normal. [] Eyes: PERRLA, EOMI, conjunctiva normal, no discharge. [] Neck: Normal range of motion, no tenderness, supple, no stridor. [] Cardiovascular:Heart rate regular rhythm, no murmur [] Lungs & Thorax: Bilateral breath sounds clear to auscultation [] Abdomen: Bowel sounds normal, soft, mildly tender generally without a focus, no masses, no pulsatile masses. Patient's G-tube and J-tube are in place without any surrounding erythema. No rebound tenderness or guarding. Skin: Warm, dry, no erythema, no rash. [] Back: No tenderness, no CVA tenderness. [] Extremities: No tenderness, no cyanosis, no clubbing, ROM intact, no edema. [] Neurologic: Alert and oriented X 3, normal motor function, normal sensory function, no focal deficits noted. [] Psychologic: Affect normal, judgement normal, mood normal. [] Current Patient Data: Labs: Laboratory Tests Test 05/30/20 14:07 POC Urine HCG, Qualitative Hcg negative (Negative) Vital Signs: Vital Signs Date Time Temp Pulse Resp B/P (MAP) Pulse Ox O2 Delivery O2 Flow Rate FiO2 05/30/20 13:55 98.3 91 18 121/60 (80) 98 Room Air 98.3 EKG: EKG: [] Radiology/Procedures: Radiology/Procedures: [] Course & Med Decision Making: Course & Med Decision Making Pertinent Labs and Imaging studies reviewed. (See chart for details) [] Dragon Disclaimer: Dragon Disclaimer: This electronic medical record was generated, in whole or in part, using a voice recognition dictation system. Departure Departure Impression: Primary Impression: Abdominal pain Disposition: 01 DC HOME SELF CARE/HOMELESS Admitting Physician: BRICE Condition: STABLE Referrals: [facility]/SURGERY REGISTERED NURSE (PCP) Patient Instructions: Abdominal Pain, Care of a Feeding Tube, [id number] Additional Instructions: Follow-up with your primary physician in 1 to 2 days. Return to the emergency department if you have any new or concerning findings. RAMA SCHULTZ MD May 30, 2020 14:22
[2020-05-30] MEDS ORDERED: HYDROmorphone 2 MG/ML VIAL IV PRN (14:30)
[2020-05-30] MEDS ORDERED: IV NORMAL SALINE 500ML BAG 500 ML IV ONE (14:30)
[2020-05-30 14:31] LABS: BILIRUBIN,URINE NEGATIVE (NEG); CLARITY,URINE CLEAR; COLOR,URINE YELLOW; NITRITE,URINE NEGATIVE (NEG); PROTEIN,URINE NEGATIVE (NEG-TRACE)
[2020-05-30 14:44] LABS: BACTERIA,URINE MODERATE /HPF (0-FEW)
[2020-05-30 14:45] LABS: RBC,URINE 0 /HPF (0-2); WBC,URINE OCC /HPF (0-4)
[2020-05-30 14:50] LABS: BASO % 0 % (0-3); EOS # 0.1 x10^3/uL (0.0-0.7); EOS % 1 % (0-3); HEMATOCRIT 27.7 % (36.0-47.0); HEMOGLOBIN 9.2 g/dL (12.0-15.5); LYMPH # 1.4 x10^3/uL (1.0-4.8); LYMPH % 35 % (24-48); MEAN CORPUSCULAR HEMOGLOBIN 29 pg (25-35); MEAN CORPUSCULAR HGB CONC 33 g/dL (31-37); MEAN CORPUSCULAR VOLUME 87 fL (79-100); MONO # 0.2 x10^3/uL (0.0-1.1); MONO % 6 % (0-9); NEUT # 2.3 x10^3/uL (1.8-7.7); NEUT % 57 % (31-73); PLATELET COUNT 149 x10^3/uL (140-400); RED BLOOD COUNT 3.18 x10^6/uL (3.50-5.40); RED CELL DISTRIBUTION WIDTH 15.9 % (11.5-14.5)
[2020-05-30 14:54] LABS: CREATININE 0.6 mg/dL (0.6-1.0); POTASSIUM 4.2 mmol/L (3.5-5.1)
[2020-05-30 15:00] LABS: ALBUMIN 3.5 g/dL (3.4-5.0); ALBUMIN/GLOBULIN RATIO 1.2 (1.0-1.7); TOTAL BILIRUBIN 0.3 mg/dL (0.2-1.0); TOTAL PROTEIN 6.5 g/dL (6.4-8.2)
[2020-05-30] MEDS ORDERED: IOHEXOL 300 MG/ML 100ML VIAL. IV ONE (16:15)
[2020-05-30 16:29] VITALS: BP 105/65
[2020-05-30] MEDS ORDERED: CONTRAST GIVEN. MC PRN (16:30)
--- NOTE | 2020-05-30 16:50 | RAD ---
CT SCAN OF THE ABDOMEN AND PELVIS WITH IV CONTRAST. History: Abdominal pain Comparison:February 19, 2020. Procedure: Contiguous axial images of the abdomen and pelvis were performed after the administration of 75 cc o f Omni 300 IV contrast. Oral contrast: No. Findings: There is been prior cholecystectomy. The appendix is not well identified. There is contrast in the colon from a previous procedure. There is a gastric feeding tube and a jejunostomy tube. Liver: Unremarkable Spleen: Unremarkable Pancreas: Unremarkable Adrenal Glands: Unremarkable Kidneys: Unremarkable There is no mass or lymphadenopathy. There is no free air. There is no free fluid. The urinary bladder appears normal. Impression: No acute findings. PQRS Compliance Statement: One or more of the following individualized dose reduction techniques were utilized for this examinat ion: 1. Automated exposure control 2. Adjustment of the mA and/or kV according to patient size 3. Use of iterative reconstruction technique Electronically signed by: Remigio Velez III, MD (05/30/2020 4:48 PM) [facility]
[2020-06-25] MEDS ORDERED: DEXT4TAB20 PO (08:01)
== END 2020-05-30 18:11 | disposition home or self-care (01) ==
LOC: ER 13:19
DX: R10.13 Epigastric pain (principal); K21.9 Gastro-esophageal reflux disease without esophagitis; I10 Essential (primary) hypertension; G43.909 Migraine, unspecified, not intractable, without status migrainosus; G89.29 Other chronic pain; Z90.49 Acquired absence of other specified parts of digestive tract; Z90.89 Acquired absence of other organs; Z88.0 Allergy status to penicillin; Z88.2 Allergy status to sulfonamides; Z88.8 Allergy status to other drugs, medicaments and biological substances
CPT/HCPCS: 36415; 74177; 80053; 81001; 81025; 84484; 85025; 87086; 96361; 96374; 99285; J1170; J7040; Q9967

== ENCOUNTER 2020-06-25 06:56 | Outpatient (CLI) | payer OTHER, MEDICAID ==
[~2020-06-25] VITALS: Ht 170.2 cm; Wt 65.8 kg
[~2020-06-25 06:56] MED LIST changes: -MIRT-7 PO; +MIRT15TA3 PO
[2020-06-25 07:26] VITALS: BP 86/52
[2020-06-25 07:32] LABS: BASO % 0 % (0-3); EOS % 0 % (0-3); HEMATOCRIT 28.9 % (36.0-47.0); HEMOGLOBIN 9.4 g/dL (12.0-15.5); LYMPH # 1.7 x10^3/uL (1.0-4.8); LYMPH % 31 % (24-48); MEAN CORPUSCULAR HEMOGLOBIN 28 pg (25-35); MEAN CORPUSCULAR HGB CONC 33 g/dL (31-37); MEAN CORPUSCULAR VOLUME 85 fL (79-100); MONO # 0.4 x10^3/uL (0.0-1.1); MONO % 8 % (0-9); NEUT # 3.3 x10^3/uL (1.8-7.7); NEUT % 61 % (31-73); PLATELET COUNT 189 x10^3/uL (140-400); RED BLOOD COUNT 3.38 x10^6/uL (3.50-5.40); RED CELL DISTRIBUTION WIDTH 15.5 % (11.5-14.5); WHITE BLOOD COUNT 5.4 x10^3/uL (4.0-11.0)
[2020-06-25 07:39] LABS: CALCIUM 9.2 mg/dL (8.5-10.1); CREATININE 0.7 mg/dL (0.6-1.0); GFR 104.6; POTASSIUM 4.4 mmol/L (3.5-5.1)
[2020-06-25 07:45] LABS: ALBUMIN 3.9 g/dL (3.4-5.0); ALBUMIN/GLOBULIN RATIO 1.1 (1.0-1.7); TOTAL BILIRUBIN 0.3 mg/dL (0.2-1.0); TOTAL PROTEIN 7.6 g/dL (6.4-8.2)
[2020-06-25] MEDS ORDERED: MIDAZOLAM HCL/PF 2 MG/2 ML VIAL. IV ONE (08:00)
[2020-06-25] MEDS ORDERED: LIDOCAINE 2%/EPI 1:100,000 20 ML VIAL. IJ ONE (08:00)
[2020-06-25] MEDS ORDERED: fentaNYL PF VIAL 100 MCG/2 ML VIAL IV ONE (08:00)
[2020-06-25] MEDS ORDERED: [UNRECOGNIZED DRUG - CODE] PO (08:01)
[2020-06-25] MEDS ORDERED: SERT25TA PO (08:01)
[2020-06-25] MEDS ORDERED: METO10TA81 PO (08:01)
[2020-06-25] MEDS ORDERED: DOCU100C28 PO (08:01)
[2020-06-25] MEDS ORDERED: TRAM100C3 PO (08:01)
[2020-06-25] MEDS ORDERED: [UNRECOGNIZED DRUG - CODE] PO (08:01)
[2020-06-25] MEDS ORDERED: ceFAZolin SODIUM IV Push 1 GM VIAL. IVP ONE ×2 (08:21→08:30)
[2020-06-25 09:11] VITALS: BP 106/48
[2020-06-25 09:34] VITALS: BP 100/52
[2020-06-25 09:50] VITALS: BP 102/54
[2020-06-25 10:05] VITALS: BP 100/45
[2020-06-25 10:18] VITALS: BP 94/44
--- NOTE | 2020-06-25 10:51 | NUR ---
Pt discharged to home with family. Port remained accessed per pt request
--- NOTE | 2020-06-25 14:14 | RAD ---
Procedure: Ultrasound and fluoroscopically guided placement of right internal jugular power port.. 06/25/2020 12:10 PM Clinical Indication: PLACE PORT A CATH GASTROPARESIS Sedation: Conscious sedation was administered for 30 minutes. The patient was monitored by a qualified independent observer throughout the time of sedation. Please refer to the medical record for exact doses of medications utilized to achieve moderate sedation. Fluoroscopy time: 1.6 minutes Dose area product: 1 Gycm2 Consent: The procedure was explained in its entirety to the patient or the patients designated district sales representative by a member of the treatment team, including a discussion of the risks, benefits and commonly accepted alternatives to the procedure, as well as the expected consequences of no therapy whatsoever. Discussion of the risks included, but was not limited to, those that are most frequent and those that are rare but possibly severe or life-threatening, as well as the possibility of unforeseen complications. Technique and Findings: All elements of maximal sterile barrier technique including the use of a cap, mask, sterile gown, sterile gloves, large sterile sheet, appropriate hand hygiene, and 2% chlorhexidine for cutaneous antisepsis (or acceptable alternative antiseptic per current guidelines) were followed for this procedure.Following informed consent, and a timeout procedure, the patient was prepped and draped in the usual sterile fashion. Ultrasound interrogation of the right neck revealed patency and compressibility of the right internal jugular vein. A 21-gauge micropuncture was then used to gain access to this vein under ultrasound guidance. A hard copy ultrasound image was recorded. The needle was exchanged over a wire for a sheath. A 1 inch incision was made several centimeters inferior to the venotomy site. A catheter was tunneled from this site dermatotomy site in the neck. Catheter was advanced through peel-away sheath such that its tip was in the proximal right atrium with the patient supine. The catheter was trimmed to length and connected to the port reservoir. The port was found to flush and aspirate normally. The wound was closed in layers using 4-0 Vicryl suture. Sterile dressings were applied. Impression: Successful ultrasound and fluoroscopically guided placement of a right internal jugular PowerPort
== END 2020-06-25 10:52 | disposition home or self-care (01) ==
LOC: INTRAD 06:56
PROVIDERS: ATTEND Surgery
DX: Z45.2 Encounter for adjustment and management of vascular access device (principal); K31.84 Gastroparesis; I10 Essential (primary) hypertension; J45.909 Unspecified asthma, uncomplicated; K21.9 Gastro-esophageal reflux disease without esophagitis; F41.9 Anxiety disorder, unspecified; F32.9 Major depressive disorder, single episode, unspecified; Z79.899 Other long term (current) drug therapy; Z98.890 Other specified postprocedural states; Z82.49 Family history of ischemic heart disease and other diseases of the circulatory system; Z83.3 Family history of diabetes mellitus; Z88.0 Allergy status to penicillin; Z88.2 Allergy status to sulfonamides; Z20.822 Contact with and (suspected) exposure to COVID-19
CPT/HCPCS: 36415; 36561; 76937; 77001; 80053; 85025; 85610; 87426; 99152; 99153; C1751; C1892; C9803; J0690; J2250; J3010; J3490; U0003

== ENCOUNTER 2020-07-25 22:30 | Emergency (ER) | payer OTHER, MEDICAID ==
[~2020-07-25] VITALS: Ht 170.2 cm; Wt 62.7 kg
[~2020-07-25 22:30] MED LIST changes: +DEXT4TAB20 PO; +DOCU100C28 PO; +SERT25TA PO; +TRAM100C3 PO; +[UNRECOGNIZED DRUG - CODE] PO
[2020-07-25 23:43] LABS: U PREG PATIENT NEGATIVE (NEG)
--- NOTE | 2020-07-25 23:48 | RAD ---
Exam: Chest one view INDICATION: Chest pain TECHNIQUE: Frontal view of the chest Comparisons: 05/03/2020 FINDINGS: Right IJ central venous catheter is noted. The cardiomediastinal silhouette and pulmonary vessels are within normal limits. The lung and pleural spaces are clear. IMPRESSION: No acute cardiopulmonary process. Electronically signed by: Дмитрий Nowak MD (07/25/2020 11:45 PM) [facility]
--- NOTE | 2020-07-26 00:07 | PHYS DOC ---
Past Medical History Past Medical History: GERD, Hypertension, Migraines, Other Additional Past Medical Histor: chronic ABD pain and N/V, GASTROPARESIS Past Surgical History: Cholecystectomy, Tonsillectomy, Other Additional Past Surgical Histo: G-tube x20; J-tube Smoking Status: Never Smoker Alcohol Use: None Adult General Chief Complaint Chief Complaint: MULTIPLE COMPLAINTS [facility] HPI Patient is a 20 year old female with a complicated past medical history which includes chronic history of abdominal pain with gastroparesis and gastrojejunos mckayla tube now presenting the emergency department complaining of pain of her right port site. Patient notes that approximate 1 week ago she had a chronic indwelling right-sided catheter placed for gastroparesis so that she can get TPN. Patient states that since has been in place she notices some pain in the to and around the neck when she infuses into her skin. Denies any nausea, vomiting, fever, chills, dizziness or lightheadedness. Denies any recent changes. Review of Systems Review of Systems Constitutional: Denies fever or chills [] Eyes: Denies change in visual acuity, redness, or eye pain [] HENT: Denies nasal congestion or sore throat [] Respiratory: Denies cough or shortness of breath [] Cardiovascular: No additional information not addressed in HPI [] GI: Denies abdominal pain, nausea, vomiting, bloody stools or diarrhea [] : Denies dysuria or hematuria [] Musculoskeletal: Denies back pain or joint pain [] Integument: Denies rash or skin lesions [] Neurologic: Denies headache, focal weakness or sensory changes [] Endocrine: Denies polyuria or polydipsia [] All other systems were reviewed and found to be within normal limits, except as documented in this note. Current Medications Current Medications Current Medications Medications (Trade) Dose Ordered Sig/Kel Start Time Stop Time Status Last Admin Dose Admin Ibuprofen (Motrin) 800 mg 1X ONCE 07/26/20 00:15 07/26/20 00:20 DC 07/26/20 00:29 800 MG Allergies Allergies Allergies Coded Allergies Type Severity Reaction Last Updated Verified Penicillins Allergy Intermediate LIGHT RASH CHILD 12/29/19 Yes Sulfa (Sulfonamide Antibiotics) Allergy Intermediate 08/29/19 Yes I S O L A T I O N *CONTACT* Allergy Unknown 12/31/19 Yes Physical Exam Physical Exam Constitutional: Well developed, well nourished, no acute distress, non-toxic appearance. [] HENT: Normocephalic, atraumatic, bilateral external ears normal, oropharynx moist, no oral exudates, nose normal. [] Eyes: PERRLA, EOMI, conjunctiva normal, no discharge. [] Neck: Normal range of motion, no tenderness, supple, no stridor. [] Cardiovascular:Heart rate regular rhythm, no murmur [] Lungs & Thorax: Bilateral breath sounds clear to auscultation, right anterior surgical site appears clean dry and intact. There is some mild tenderness superior to the incision site when palpated indwelling catheter but there is no evidence of erythema, infection or induration Abdomen: Bowel sounds normal, soft, no tenderness, no masses, no pulsatile masses. [] Skin: Warm, dry, no erythema, no rash. [] Back: No tenderness, no CVA tenderness. [] Extremities: No tenderness, no cyanosis, no clubbing, ROM intact, no edema. [] Neurologic: Alert and oriented X 3, normal motor function, normal sensory function, no focal deficits noted. [] Psychologic: Affect normal, judgement normal, mood normal. [] Current Patient Data Vital Signs Vital Signs Date Time Temp Pulse Resp B/P (MAP) Pulse Ox O2 Delivery O2 Flow Rate FiO2 07/25/20 22:40 98.7 95 18 112/60 (77) 95 Room Air 98.7 Lab Values Laboratory Tests Test 07/25/20 23:30 07/25/20 23:31 Urine Test Negative (NEG) POC Urine HCG, Qualitative Hcg negative (Negative) EKG EKG [] Radiology/Procedures Radiology/Procedures [] Course & Med Decision Making Course & Med Decision Making Pertinent Labs and Imaging studies reviewed. (See chart for details) 20F presenting to emergency department due to pain around her incision site. At this time there does not appear to be any acute evidence of infection. Chest x-ray to make sure there is no evidence of significant underlying air that would raise concern for underlying infection and treat the patient symptomatically Dragon Disclaimer Dragon Disclaimer This electronic medical record was generated, in whole or in part, using a voice recognition dictation system. Departure Departure Impression: Primary Impression: Problem involving surgical incision Disposition: 01 DC HOME SELF CARE/HOMELESS Condition: GOOD Referrals: HI HOLLY MD (PCP) Patient Instructions: Incision Care Additional Instructions: EMERGENCY DEPARTMENT GENERAL DISCHARGE INSTRUCTIONS Thank you for coming to [facility] Emergency Department (ED) today and trusting us with you care. We trust that you had a positive experience in our Emergency Department. If you wish to speak to the department management, you may call the Director at [phone]. YOUR FOLLOW UP INSTRUCTIONS ARE FOLLOWS: 1. Do you have a private Doctor? If you do not have a private doctor, please ask for a resource list of physicians or clinics that may be able to assist you with follow up care. 2. The Emergency Physicain has interpreted your x-rays. The X-Ray specialist will also review them. If there is a change in the findings, you will be notified in 48 hours when at all possible. 3. A lab test or culture has been done, your results will be reviewed and you will be notified if you need a change in treatment. ADDITIONAL INSTRUCTIONS AND INFORMATION: 1. Your care today has been supervised by a physician who is specially trained in emergency care. Many problems require more than one evaluation for a complete diagnosis and treatment. We recommend that you schedule your follow up appointment as recommended to ensure complete treatment of you illness or injury. If you are unable to obtain follow up care and continue to have a problem, or if your condition worsens, we recommend that you return to the ED. 2. We are not able to safely determine your condition over the phone nor are we able to give sound medical advice over the phone. For these safety reasons, if you call for medical advice we will ask you to come to the ED for further evaluation. 3. If you have any questions regarding these discharge instructions please call the ED at [phone]. SAFETY INFORMATION: In the interest of safety, wellness, and injury prevention; we encourage you to wear your sealbelt, if you smoke; quite smoking, and we encourage family to use a protective helmet for bicycling and other sporting events that present an increased risk for head injury. IF YOUR SYMPTOMS WORSEN OR NEW SYMPTOMS DEVELOP, OR YOU HAVE CONCERNS ABOUT YOUR CONDITION; OR IF YOUR CONDITION WORSENS WHILE YOU ARE WAITING FOR YOUR FOLLOW UP APPOINTMENT; EITHER CONTACT YOUR PRIMARY CARE DOCTOR, THE PHYSICIAN WHOSE NAME AND NUMBER YOU WERE GIVEN, OR RETURN TO THE ED IMMEDIATELY. NORMA CRAWFORD MD Jul 26, 2020 00:07
[2020-07-26] MEDS ORDERED: IBUPROFEN 400 MG TABLET. PO ONE (00:15)
[2020-07-26 01:15] VITALS: BP 99/66
== END 2020-07-26 01:16 | disposition home or self-care (01) ==
LOC: ER 22:30
DX: T81.89XA Other complications of procedures, not elsewhere classified, initial encounter (principal); K21.9 Gastro-esophageal reflux disease without esophagitis; I10 Essential (primary) hypertension; G43.909 Migraine, unspecified, not intractable, without status migrainosus; G89.29 Other chronic pain; Z90.49 Acquired absence of other specified parts of digestive tract; Z88.0 Allergy status to penicillin; Z88.2 Allergy status to sulfonamides; Z91.041 Radiographic dye allergy status; Y83.8 Other surgical procedures as the cause of abnormal reaction of the patient, or of later complication, without mention of misadventure at the time of the procedure; Y92.89 Other specified places as the place of occurrence of the external cause
CPT/HCPCS: 71045; 81025; 99285-25

== ENCOUNTER 2020-07-30 08:37 | Outpatient (CLI) | payer OTHER, MEDICAID ==
[~2020-07-30] VITALS: Ht 170.2 cm; Wt 63.0 kg
[2020-07-30] MEDS ORDERED: ENOX60DI SQ (09:17)
[2020-07-30 09:28] LABS: BASO % 1 % (0-3); EOS % 1 % (0-3); HEMATOCRIT 27.5 % (36.0-47.0); HEMOGLOBIN 8.9 g/dL (12.0-15.5); LYMPH # 1.6 x10^3/uL (1.0-4.8); LYMPH % 43 % (24-48); MEAN CORPUSCULAR HEMOGLOBIN 27 pg (25-35); MEAN CORPUSCULAR HGB CONC 32 g/dL (31-37); MEAN CORPUSCULAR VOLUME 83 fL (79-100); MONO # 0.2 x10^3/uL (0.0-1.1); MONO % 6 % (0-9); NEUT # 1.9 x10^3/uL (1.8-7.7); NEUT % 50 % (31-73); PLATELET COUNT 186 x10^3/uL (140-400); RED CELL DISTRIBUTION WIDTH 17.4 % (11.5-14.5); WHITE BLOOD COUNT 3.8 x10^3/uL (4.0-11.0)
[2020-07-30 09:31] VITALS: BP 113/67
[2020-07-30 09:40] LABS: CALCIUM 8.4 mg/dL (8.5-10.1); CREATININE 0.6 mg/dL (0.6-1.0); POTASSIUM 4.3 mmol/L (3.5-5.1)
[2020-07-30] MEDS ORDERED: IOHEXOL 240 MG/ML 50ML VIAL. ONE ×2 (09:40→09:41)
[2020-07-30] MEDS ORDERED: fentaNYL PF VIAL 250 MCG/5 ML VIAL ONE (09:55)
[2020-07-30] MEDS ORDERED: MIDAZOLAM HCL/PF 5 MG/5 ML VIAL. ONE (09:55)
[2020-07-30 10:00] LABS: PROTHROMBIN TIME PATIENT 14.4 SEC (11.7-14.0)
[2020-07-30 10:26] VITALS: BP 108/59
[2020-07-30] MEDS: IOHEXOL 300 MG/ML 50 ML VIAL. IART ONE (10:30)
[2020-07-30] MEDS ORDERED: CONTRAST GIVEN. MC PRN (10:30)
[2020-07-30] MEDS: LIDOCAINE WITH 8.4% SOD BICARB 3 ML DISP.SYRIN. IJ ONE (10:30)
[2020-07-30] MEDS: MIDAZOLAM HCL/PF 5 MG/5 ML VIAL. IV ONE (10:30)
[2020-07-30] MEDS: fentaNYL PF VIAL 250 MCG/5 ML VIAL IV ONE (10:30)
[2020-07-30 10:36] VITALS: BP 103/53
[2020-07-30 10:51] VITALS: BP 96/51
--- NOTE | 2020-07-31 08:15 | RAD ---
Fluoroscopically guided placement of gastrostomy tube and jejunostomy tube 07/31/2020 Clinical Indication: G-tube and J-tube malfunction malfunction. Discussion: The procedure was explained in its entirety to the patient or the patients designated underwriting sales representative by a member of the treatment team, including a discussion of the risks, benefits and commonly accepted alternatives to the procedure, as well as the expected consequences of no therapy whatsoever. Discussion of the risks included, but was not limited to, those that are most frequent and those that are rare but possibly severe or life-threatening, as well as the possibility of unforeseen complications. All elements of maximal sterile barrier technique including the use of a cap, mask, sterile gown, sterile gloves, large sterile sheet, appropriate hand hygiene, and 2% chlorhexidine for cutaneous antisepsis (or acceptable alternative antiseptic per current guidelines) were followed for this procedure. Contrast was administered through the pre-existing G and J tubes with tips located in the gastric lumen and small bowel are speculated. Guidewire was advanced into the gastric lumen. The pre-existing catheter was removed over the wire and replaced with a new 20 Dominican G-tube. The retention balloon was instilled with sterile water and the catheter secured in place with variable stoma. Final catheter position was confirmed with fluoroscopic injection of contrast. Contrast was administered to the pre-existing jejunostomy tube delineating the small bowel. A Guidewire was advanced through the pre-existing J jejunostomy tube into the small bowel. The pre-existing tube was removed over the wire and replaced with an 18 Dominican jejunostomy tube. The retention balloon was instilled with sterile water and the catheter secured in place with variable stoma. Final catheter position was confirmed with fluoroscopic injection of contrast. Total fluoroscopy time: 1.2 MIN Dose area product: 3 Gycm2 The procedures performed under conscious sedation including continuous cardiopulmonary monitoring via dedicated sedation nurse. [id number] sedation time: 16 minutes Impression: Fluoroscopically guided replacement of gastrostomy tube and jejunostomy tube
== END 2020-07-30 11:13 | disposition home or self-care (01) ==
LOC: INTRAD 08:37
PROVIDERS: ATTEND Surgery
DX: K94.23 Gastrostomy malfunction (principal); I10 Essential (primary) hypertension; J45.909 Unspecified asthma, uncomplicated; K21.9 Gastro-esophageal reflux disease without esophagitis; F41.9 Anxiety disorder, unspecified; F32.9 Major depressive disorder, single episode, unspecified; Z79.899 Other long term (current) drug therapy; Z98.890 Other specified postprocedural states; Z90.49 Acquired absence of other specified parts of digestive tract; Z88.0 Allergy status to penicillin; Z91.041 Radiographic dye allergy status; Z88.8 Allergy status to other drugs, medicaments and biological substances; Z20.822 Contact with and (suspected) exposure to COVID-19
CPT/HCPCS: 36415; 49450; 49451; 80048; 85025; 85610; 87426; 99152; B4087; C1769; C9803; J2250; J3010; J3490; Q9967; U0003

== ENCOUNTER 2020-08-07 20:03 | Emergency (ER) | payer OTHER, MEDICAID ==
[~2020-08-07] VITALS: Ht 170.2 cm; Wt 76.8 kg
[~2020-08-07 20:03] MED LIST changes: +ENOX60DI SQ
--- NOTE | 2020-08-07 21:12 | ED.ADGEN ---
Past Medical History Past Medical History: GERD, Hypertension, Migraines, Other Additional Past Medical Histor: chronic ABD pain and N/V, GASTROPARESIS Past Surgical History: Cholecystectomy, Tonsillectomy, Other Additional Past Surgical Histo: G-tube x20; J-tube Smoking Status: Never Smoker Alcohol Use: None General Adult EDM: Chief Complaint: FLANK PAIN HPI: HPI: Patient is a 20 year old female who presents emergency department with complaints of left flank pain for the last 4 days. Patient reports that she was seen at an emergency room in the breast 4 days ago where she was diagnosed with a kidney stone. Patient states she responded Dilaudid pain medication at that ER but was not prescribed anything to take Tylenol. Patient reports that she has not been able to urinate since being discharged from the emergency room 4 days ago. She denies any fever, body aches, chills, fatigue, hematuria, nausea, vomiting, or diarrhea. Patient reports history of having severe gastroparesis and has a G-tube and a J-tube in place. She currently rates her pain a 10 out o f 10 on the pain scale, she denies any alleviating factors. Review of Systems: Review of Systems: Complete ROS is negative unless otherwise noted in HPI. Current Medications: Current Medications Medications (Trade) Dose Ordered Sig/Kel Start Time Stop Time Status Last Admin Dose Admin Ciprofloxacin (Cipro) 500 mg 1X ONCE 08/07/20 23:15 08/07/20 23:14 DC Ciprofloxacin/ Dextrose 200 ml @ 200 mls/hr 1X ONCE 08/07/20 23:30 08/08/20 00:29 Morphine Sulfate (Morphine Sulfate) 4 mg 1X ONCE 08/07/20 21:45 08/07/20 21:46 DC 08/07/20 21:47 4 MG Ondansetron HCl (Zofran) 4 mg 1X ONCE 08/07/20 21:45 08/07/20 21:46 DC 08/07/20 21:46 4 MG Sodium Chloride 500 ml @ 500 mls/hr 1X ONCE 08/07/20 21:45 08/07/20 22:44 DC 08/07/20 21:47 500 MLS/HR Allergies: Allergies: Allergies Coded Allergies Type Severity Reaction Last Updated Verified Penicillins Allergy Intermediate LIGHT RASH CHILD 12/29/19 Yes Sulfa (Sulfonamide Antibiotics) Allergy Intermediate 08/29/19 Yes I S O L A T I O N *CONTACT* Allergy Unknown 12/31/19 Yes Physical Exam: PE: See Above Constitutional: Well developed, well nourished, no acute distress, non-toxic appearance. [] HENT: Normocephalic, atraumatic, bilateral external ears normal, nose normal. [] Eyes: PERRLA, EOMI, conjunctiva normal, no discharge. [] Neck: Normal range of motion, no stridor. [] Cardiovascular:Heart rate regular rhythm Lungs & Thorax: Respirations even and unlabored, no retractions, no respiratory distress Abdomen: soft, no tenderness, no rebound tenderness, no guarding, no palpable mass, J-tube, and G-tube in place with normal appearance Back: Left CVA tenderness, no bony tenderness Skin: Warm, dry, no erythema, no rash. [] Extremities: No cyanosis, ROM intact, no edema. [] Neurologic: Alert and oriented X 3, no focal deficits noted. [] Psychologic: Affect normal, judgement normal, mood normal. [] Current Patient Data: Labs: Laboratory Tests Test 08/07/20 21:27 08/07/20 22:35 White Blood Count 5.2 x10^3/uL (4.0-11.0) Red Blood Count 3.59 x10^6/uL (3.50-5.40) Hemoglobin 9.5 g/dL (12.0-15.5) L Hematocrit 29.9 % (36.0-47.0) L Mean Corpuscular Volume 83 fL (79-100) Mean Corpuscular Hemoglobin 27 pg (25-35) Mean Corpuscular Hemoglobin Concent 32 g/dL (31-37) Red Cell Distribution Width 17.3 % (11.5-14.5) H Platelet Count 160 x10^3/uL (140-400) Neutrophils (%) (Auto) 59 % (31-73) Lymphocytes (%) (Auto) 35 % (24-48) Monocytes (%) (Auto) 6 % (0-9) Eosinophils (%) (Auto) 1 % (0-3) Basophils (%) (Auto) 0 % (0-3) Neutrophils # (Auto) 3.0 x10^3/uL (1.8-7.7) Lymphocytes # (Auto) 1.8 x10^3/uL (1.0-4.8) Monocytes # (Auto) 0.3 x10^3/uL (0.0-1.1) Eosinophils # (Auto) 0.0 x10^3/uL (0.0-0.7) Basophils # (Auto) 0.0 x10^3/uL (0.0-0.2) Sodium Level 142 mmol/L (136-145) Potassium Level 3.9 mmol/L (3.5-5.1) Chloride Level 107 mmol/L (98-107) Carbon Dioxide Level 24 mmol/L (21-32) Anion Gap 11 (6-14) Blood Urea Nitrogen 10 mg/dL (7-20) Creatinine 0.8 mg/dL (0.6-1.0) Estimated GFR (Cockcroft-Gault) 89.7 BUN/Creatinine Ratio 13 (6-20) Glucose Level 79 mg/dL (70-99) Calcium Level 9.3 mg/dL (8.5-10.1) Magnesium Level 1.8 mg/dL (1.8-2.4) Total Bilirubin 0.2 mg/dL (0.2-1.0) Aspartate Amino Transferase (AST) 11 U/L (15-37) L Alanine Aminotransferase (ALT) 19 U/L (14-59) Alkaline Phosphatase 87 U/L (46-116) Total Protein 7.3 g/dL (6.4-8.2) Albumin 3.8 g/dL (3.4-5.0) Albumin/Globulin Ratio 1.1 (1.0-1.7) Serum Test, Qualitative Negative (NEG) Urine Collection Type U cath Urine Color Yellow Urine Clarity Cloudy Urine pH 7.5 (<5.0-8.0) Urine Specific Bowie 1.020 (1.000-1.030) Urine Protein >=300 mg/dL (NEG-TRACE) Urine Glucose (UA) Negative mg/dL (NEG) Urine Ketones (Stick) Negative mg/dL (NEG) Urine Blood Small (NEG) Urine Nitrite Positive (NEG) Urine Bilirubin Negative (NEG) Urine Urobilinogen Dipstick 0.2 mg/dL (0.2 mg/dL) Urine Leukocyte Esterase Moderate (NEG) Urine RBC Occ /HPF (0-2) Urine WBC Tntc /HPF (0-4) Urine Squamous Epithelial Cells Few /LPF Urine Bacteria Many /HPF (0-FEW) Urine Hyaline Casts Few /HPF Urine Mucus Mod /LPF Laboratory Tests 08/07/20 21:27 Laboratory Tests 08/07/20 21:27 Vital Signs: Vital Signs Date Time Temp Pulse Resp B/P (MAP) Pulse Ox O2 Delivery O2 Flow Rate FiO2 08/07/20 21:47 20 100 Room Air 08/07/20 20:51 98.8 99 133/77 (95) 98.8 EKG: EKG: [] Heart Score: C/O Chest Pain: No Risk Factors: Risk Factors: DM, Current or recent (<one month) smoker, HTN, HLP, family history of CAD, obesity. Risk Scores: Score 0 - 3: 2.5% MACE over next 6 weeks - Discharge Home Score 4 - 6: 20.3% MACE over next 6 weeks - Admit for Clinical Observation Score 7 - 10: 72.7% MACE over next 6 weeks - Early Invasive Strategies Radiology/Procedures: Radiology/Procedures: PROCEDURE: CT ABDOMEN PELVIS WO CONTRAST Exam: CT of abdomen and pelvis without contrast INDICATION: Left flank pain TECHNIQUE: Sequential axial images through the abdomen and pelvis obtained without IV contrast. Sagittal and coronal reformatted images were reconstructed from the axial data and reviewed. Comparisons: 05/30/2020 FINDINGS: Heart size is normal. No pericardial visualized lung bases are clear. No pleural effusion. Evaluation of solid organs is limited secondary to noncontrast technique. Liver, spleen, pancreas, and adrenals are unremarkable. Gallbladder surgically absent. No perinephric inflammation or hydronephrosis. No renal or ureteral calculi. Bladder is partially distended there is a moderate amount of air noted within the bladder. Uterus not enlarged. No abnormal. Large and small bowel are unremarkable. Appendix is normal. No free intra- abdominal air or fluid. No obstruction. Percutaneous J-tube is noted in appropriate position. Abdominal aorta has a normal course and caliber. No enlarged intra-abdominal lymph nodes are identified. No suspicious osseous lesions or acute fractures. IMPRESSION: 1. No renal or ureteral calculi. No evidence for obstructive uropathy. 2. Moderate amount of air noted within the bladder. Correlate for recent instrumentation. In the absence of instrumentation correlate with urinalysis for infection. Exposure: One or more of the following in the visualized dose reduction techniques were utilized for this examination: 1. Automated exposure control 2. Adjustment of the MA and/or KV according to patient size 3. Use of iterative of reconstructive technique[] Course & Med Decision Making: Course & Med Decision Making Pertinent Labs and Imaging studies reviewed. (See chart for details) 20-year-old female presented to emergency department with concerns of left flank pain and reports of no urination for at least 4 days. Work-up included labs and CT CBC revealed mild anemia otherwise unremarkable; CMP revealed normal renal function no acute findings; UA was positive for nitrites with moderate leukoe sterase and many to count white blood cells and many bacteria. I discussed these findings with patient and my diagnosis of pyelonephritis. The patient does not have a fever and reports feeling comfortable going home with medications. I encouraged patient to follow-up with her primary care doctor or urologist in the next 1 to 2 days, return to the ER if symptoms worsen, she cannot tolerate medications, or if develops fever. Patient verbalized an understanding of home care, medications, follow-up, and return to ED instructions and was in agreement with the plan of care. [] Dragon Disclaimer: Dragon Disclaimer: This electronic medical record was generated, in whole or in part, using a voice recognition dictation system. Departure Departure Impression: Primary Impression: Urinary tract infection Additional Impression: Flank pain Disposition: 01 DC HOME SELF CARE/HOMELESS Condition: STABLE Referrals: HI HOLLY MD (PCP) Patient Instructions: Pyelonephritis, Adult, [id number] Additional Instructions: Fill prescription(s) and take as directed. Avoid bladder irritants such as caffeine, carbonation, and spicy foods. Increase clear fluids. Follow up with your primary care doctor in 1-2 days, return to the ER if symptoms worsen or fever develops. Scripts Hydrocodone Bit/Acetaminophen (HYDROCODONE-APAP 5-217/10 SOLN) 10 Ml Solution 10 ML PO PRN Q6HRS PRN for PAIN for 3 Days, #100 ML 0 Refills Prov: GIOVANNI WOOD SHREDDED FILLER MACHINE WRAPPER LAYER 08/07/20 Ciprofloxacin (CIPRO) 500 Mg/5 Ml Marcella.mc.rec 5 ML PO BID for 7 Days, #70 ML 0 Refills Prov: GIOVANNI WOOD SHREDDED FILLER MACHINE WRAPPER LAYER 08/07/20 Problem Qualifiers Primary Impression: Urinary tract infection Urinary tract infection type: acute pyelonephritis Qualified Codes: N10 - Acute pyelonephritis GIOVANNI WOOD APRN Aug 07, 2020 21:12
[2020-08-07 21:36] LABS: BASO % 0 % (0-3); EOS % 1 % (0-3); HEMATOCRIT 29.9 % (36.0-47.0); HEMOGLOBIN 9.5 g/dL (12.0-15.5); LYMPH # 1.8 x10^3/uL (1.0-4.8); LYMPH % 35 % (24-48); MEAN CORPUSCULAR HEMOGLOBIN 27 pg (25-35); MEAN CORPUSCULAR HGB CONC 32 g/dL (31-37); MEAN CORPUSCULAR VOLUME 83 fL (79-100); MONO # 0.3 x10^3/uL (0.0-1.1); MONO % 6 % (0-9); NEUT % 59 % (31-73); PLATELET COUNT 160 x10^3/uL (140-400); RED BLOOD COUNT 3.59 x10^6/uL (3.50-5.40); RED CELL DISTRIBUTION WIDTH 17.3 % (11.5-14.5); WHITE BLOOD COUNT 5.2 x10^3/uL (4.0-11.0)
[2020-08-07] MEDS ORDERED: IV NORMAL SALINE 500ML BAG 500 ML IV ONE (21:45)
[2020-08-07] MEDS ORDERED: ONDANSETRON PF 4 MG/2 ML VIAL. IV ONE (21:45)
[2020-08-07] MEDS ORDERED: MORPHINE SULFATE 4 MG/ML VIAL. IV ONE (21:45)
[2020-08-07 21:48] LABS: PREG TEST PT QUAL NEGATIVE (NEG)
[2020-08-07 21:50] LABS: CALCIUM 9.3 mg/dL (8.5-10.1); CREATININE 0.8 mg/dL (0.6-1.0); GFR 89.7; POTASSIUM 3.9 mmol/L (3.5-5.1)
[2020-08-07 21:55] LABS: ALBUMIN 3.8 g/dL (3.4-5.0); ALBUMIN/GLOBULIN RATIO 1.1 (1.0-1.7); MAGNESIUM 1.8 mg/dL (1.8-2.4); TOTAL BILIRUBIN 0.2 mg/dL (0.2-1.0); TOTAL PROTEIN 7.3 g/dL (6.4-8.2)
--- NOTE | 2020-08-07 22:38 | RAD ---
Exam: CT of abdomen and pelvis without contrast INDICATION: Left flank pain TECHNIQUE: Sequential axial images through the abdomen and pelvis obtained without IV contrast. Sagit faby and coronal reformatted images were reconstructed from the axial data and reviewed. Comparisons: 05/30/2020 FINDINGS: Heart size is normal. No pericardial visualized lung bases are clear. No pleural effusion. Evaluation of solid organs is limited secondary to noncontrast technique. Liver, spleen, pancreas, and adrenals are unremarkable. Gallbladder surgically absent. No perinephric inflammation or hydronephrosis. No renal or ureteral calculi. Bladder is partially distended there is a moderate amount of air noted within the bladder. Uterus not enlarged. No abnormal. Large and small bowel are unremarkable. Appendix is normal. No free intra-abdominal air or fluid. No obstruction. Percutaneous J-tube is noted in appropriate position. Abdominal aorta has a normal course and caliber. No enlarged intra-abdominal lymph nodes are identified. No suspicious osseous lesions or acute fractures. IMPRESSION: 1. No renal or ureteral calculi. No evidence for obstructive uropathy. 2. Moderate amount of air noted within the bladder. Correlate for recent instrumentation. In the abs ence of instrumentation correlate with urinalysis for infection. Exposure: One or more of the following in the visualized dose reduction techniques were utilized for this examination: 1. Automated exposure control 2. Adjustment of the MA and/or KV according to patient size 3. Use of iterative of reconstructive technique Electronically signed by: Дмитрий Nowak MD (08/07/2020 10:35 PM) [facility]
[2020-08-07 22:43] LABS: BILIRUBIN,URINE NEGATIVE (NEG); CLARITY,URINE CLOUDY; COLOR,URINE YELLOW; NITRITE,URINE POSITIVE (NEG); PH,URINE 7.5 (<5.0-8.0); PROTEIN,URINE >=300 mg/dL (NEG-TRACE); UROBILINOGEN,URINE 0.2 mg/dL (0.2 mg/dL)
[2020-08-07 22:51] LABS: BACTERIA,URINE MANY /HPF (0-FEW); HYALINE CASTS, URINE FEW /HPF; RBC,URINE OCC /HPF (0-2); WBC,URINE TNTC /HPF (0-4)
[2020-08-07] MEDS ORDERED: HYDR-2761 PO (23:02)
[2020-08-07] MEDS ORDERED: CIPR500T94 PO (23:02)
[2020-08-07] MEDS ORDERED: CIPROFLOXACIN HCL 250 MG TABLET. PO ONE (23:15)
[2020-08-07] MEDS ORDERED: HYDR10SO4 PO (23:27)
[2020-08-07] MEDS ORDERED: CIPR500S2 PO (23:27)
[2020-08-07] MEDS ORDERED: CIPROFLOXACIN 400MG PREMIX 200 ML IV ONE (23:30)
[2020-08-08 00:32] VITALS: BP 102/57
== END 2020-08-08 00:37 | disposition home or self-care (01) ==
LOC: ER 20:03
DX: N39.0 Urinary tract infection, site not specified (principal); R10.9 Unspecified abdominal pain; K21.9 Gastro-esophageal reflux disease without esophagitis; I10 Essential (primary) hypertension; G43.909 Migraine, unspecified, not intractable, without status migrainosus; G89.29 Other chronic pain; Z90.49 Acquired absence of other specified parts of digestive tract; Z90.89 Acquired absence of other organs; Z98.890 Other specified postprocedural states; Z88.0 Allergy status to penicillin; Z88.2 Allergy status to sulfonamides; Z88.8 Allergy status to other drugs, medicaments and biological substances
CPT/HCPCS: 36415; 74176; 80053; 81001; 83735; 84703; 85025; 87086; 96361; 96365; 96375; 99285; J0744; J2270; J2405; J7040

== ENCOUNTER 2020-08-22 07:30 | Outpatient (CLI) | payer OTHER, MEDICAID ==
[~2020-08-22] VITALS: Ht 162.6 cm; Wt 63.0 kg
[2020-08-22] VITALS (8 sets, daily range): BP systolic 90–113; BP diastolic 50–72
[~2020-08-22 07:30] MED LIST changes: +CIPR500S2 PO; +CIPR500T94 PO; +HYDR-2761 PO; +HYDR10SO4 PO
[2020-08-22 08:22] LABS: BASO % 0 % (0-3); EOS % 1 % (0-3); HEMATOCRIT 26.9 % (36.0-47.0); HEMOGLOBIN 8.7 g/dL (12.0-15.5); LYMPH # 1.5 x10^3/uL (1.0-4.8); LYMPH % 31 % (24-48); MEAN CORPUSCULAR HEMOGLOBIN 26 pg (25-35); MEAN CORPUSCULAR HGB CONC 32 g/dL (31-37); MEAN CORPUSCULAR VOLUME 82 fL (79-100); MONO # 0.4 x10^3/uL (0.0-1.1); MONO % 8 % (0-9); NEUT # 3.1 x10^3/uL (1.8-7.7); NEUT % 61 % (31-73); PLATELET COUNT 143 x10^3/uL (140-400); RED CELL DISTRIBUTION WIDTH 17.1 % (11.5-14.5)
[2020-08-22] MEDS ORDERED: LIDOCAINE WITH 8.4% SOD BICARB 3 ML DISP.SYRIN. ONE (08:23)
[2020-08-22] MEDS ORDERED: MIDAZOLAM HCL/PF 2 MG/2 ML VIAL. ONE (08:46)
[2020-08-22] MEDS ORDERED: fentaNYL PF VIAL 100 MCG/2 ML VIAL ONE (08:46)
[2020-08-22] MEDS ORDERED: FLUMAZENIL 0.5 MG/5 ML VIAL. IV ONE (08:46)
[2020-08-22] MEDS ORDERED: NALOXONE 0.4 MG/ML VIAL. ONE (08:46)
[2020-08-22] MEDS ORDERED: fentaNYL PF VIAL 100 MCG/2 ML VIAL IV ONE (09:00)
[2020-08-22] MEDS ORDERED: MIDAZOLAM HCL/PF 2 MG/2 ML VIAL. IV ONE (09:00)
[2020-08-22] MEDS ORDERED: LIDOCAINE WITH 8.4% SOD BICARB 3 ML DISP.SYRIN. IJ ONE (09:00)
--- NOTE | 2020-08-22 10:26 | NUR ---
Patient d/c. Taken to car via wheelchair, mother driving. Central access remains intact-- previously dressed by patient at home. Instructions provided on site care, sedation, gastric tube. Patient verbalized understanding. No questions at this time. VS stable, No bleeding at access site.
--- NOTE | 2020-08-22 15:31 | RAD ---
Procedure: CT-guided bone marrow aspiration and biopsy Clinical Indication: Adult female with anemia Sedation: Conscious sedation was administered with a total intraprocedural [id number] time of 11 minutes. The patient was monitored by a qualified independent observer throughout the time of sedation. Please refer to the medical record for exact doses of medications utilized to achieve moderate sedation. Antibiotics: None Fluoro Time: Not applicable Contrast: None Sterility: The procedure was performed in its entirety using appropriate elements of sterile technique. Consent: The procedure was explained in its entirety to the patient or the patients designated outside industrial sales representative by a member of the treatment team, including a discussion of the risks, benefits and commonly accepted alternatives to the procedure, as well as the expected consequences of no therapy whatsoever. Discussion of the risks included, but was not limited to, those that are most frequent and those that are rare but possibly severe or life-threatening, as well as the possibility of unforeseen complications. Technique and Findings: Following informed consent, the patient was prepped and draped in usual sterile fashion. Preliminary CT scan of the area of interest was performed. 1% Lidocaine was used to achieve local anesthesia. Under periodic CT surveillance, an 11-gauge needle was advanced through the cortex of the posterior superior iliac spine and 2 separate 2 mL marrow aspirates were obtained and preserved on site by the market research assistant. A single 11-gauge core biopsy specimen was then obtained and preserved in formalin. The needle was then removed and hemostasis was achieved with manual compression. Complications: No immediate Impression: 1. CT-guided bone marrow aspiration and biopsy as described PQRS Compliance Statement: One or more of the following individualized dose reduction techniques were utilized for this examination: 1. Automated exposure control 2. Adjustment of the mA and/or kV according to patient size 3. Use of iterative reconstruction technique
== END 2020-08-22 10:15 | disposition home or self-care (01) ==
LOC: INTRAD 07:30
PROVIDERS: ATTEND Internal Medicine Hematology & Oncology
DX: D64.9 Anemia, unspecified (principal); I10 Essential (primary) hypertension; J45.909 Unspecified asthma, uncomplicated; K21.9 Gastro-esophageal reflux disease without esophagitis; F41.9 Anxiety disorder, unspecified; F32.9 Major depressive disorder, single episode, unspecified; Z90.49 Acquired absence of other specified parts of digestive tract; Z98.890 Other specified postprocedural states; Z79.899 Other long term (current) drug therapy; Z88.0 Allergy status to penicillin; Z88.2 Allergy status to sulfonamides; Z88.8 Allergy status to other drugs, medicaments and biological substances; Z82.49 Family history of ischemic heart disease and other diseases of the circulatory system; Z83.3 Family history of diabetes mellitus
CPT/HCPCS: 36415; 38222; 77012; 85025; 87426; 99152; J2250; J3010; J3490; U0003

== ENCOUNTER 2020-08-26 20:11 | Emergency (ER) | payer OTHER, MEDICAID ==
[~2020-08-26] VITALS: Ht 170.2 cm; Wt 63.2 kg
[2020-08-26 22:01] VITALS: BP 105/59
[2020-08-26] MEDS ORDERED: LIDOCAINE 2% JELLY 6ML IN APPLICATOR. MM ONE (22:15)
[2020-08-27] MEDS ORDERED: IOHEXOL 240 MG/ML 50ML VIAL. IJ ONE (03:30)
[2020-08-27] MEDS ORDERED: CONTRAST GIVEN. MC PRN (03:30)
--- NOTE | 2020-08-27 03:52 | RAD ---
XR ABDOMEN 1V History: Reason: confirm g-tube placement w/contrast through g-tube;OMNI 240,30ML / Spl. Instructions : / History: Technique: Supine view the abdomen. Comparison: None. Findings: Jejunostomy tube projecting over the mid abdomen injected with contrast. Contrast opacification of sm all bowel. Gastric tube noted projecting over the upper abdomen. Minimal small bowel gas. Air stool s cattered throughout the colon. Mild colonic stool burden. Impression: 1. Jejunostomy tube check. No evidence of contrast extravasation. 2. Gastrostomy tube also noted. Electronically signed by: Brendan Barros DO (08/27/2020 3:49 AM) [facility]
--- NOTE | 2020-08-27 04:25 | PHYS DOC ---
Past Medical History Past Medical History: Asthma, DVT, GERD, Hypertension, Migraines, MRSA, Other Additional Past Medical Histor: chronic ABD pain and N/V, GASTROPARESIS, HYPOTENSION, LUNG PROBLEMS, Past Surgical History: Cholecystectomy, Tonsillectomy, Other Additional Past Surgical Histo: G-tube x20; J-tube, PYLORIPLASTY, ADENOIDECTOMY, PORT PLACEMENT Smoking Status: Never Smoker Alcohol Use: None General Adult EDM: Chief Complaint: OTHER COMPLAINTS HPI: HPI: 20-year-old female past medical history of gastroparesis with G-tube, presents to the ED stating her G-tube fell out and has pain only when flushing the tube. States she follows up with a GI dysmotility specialist in [facility] who's considering an "intestine transfer." Cannot recall last time her G-tube was replaced. Denies any associated bleeding, nausea, vomiting, rash, fever, or severe abdominal or back pain. Review of Systems: Review of Systems: Constitutional: Denies fever or chills. [] Eyes: Denies change in visual acuity. [] HENT: Denies nasal congestion or sore throat. [] Respiratory: Denies cough or shortness of breath. [] Cardiovascular: Denies chest pain or edema. [] GI: Denies nausea, vomiting, bloody stools or diarrhea. [] : Denies dysuria. [] Musculoskeletal: Denies back pain or joint pain. [] Integument: Denies rash. [] Neurologic: Denies headache, focal weakness or sensory changes. [] Endocrine: Denies polyuria or polydipsia. [] Lymphatic: Denies swollen glands. [] Psychiatric: Denies depression or anxiety. [] Heart Score: C/O Chest Pain: No Risk Factors: Risk Factors: DM, Current or recent (<one month) smoker, HTN, HLP, family history of CAD, obesity. Risk Scores: Score 0 - 3: 2.5% MACE over next 6 weeks - Discharge Home Score 4 - 6: 20.3% MACE over next 6 weeks - Admit for Clinical Observation Score 7 - 10: 72.7% MACE over next 6 weeks - Early Invasive Strategies Current Medications: Current Medications Medications (Trade) Dose Ordered Sig/Kel Start Time Stop Time Status Last Admin Dose Admin Info (CONTRAST GIVEN -- Rx MONITORING) 1 each PRN DAILY PRN 4/7/21 03:30 08/29/20 03:29 Iohexol (Omnipaque 240 Mg/ml) 30 ml 1X ONCE 08/27/20 03:30 08/27/20 03:31 DC Lidocaine HCl (Glydo (Lidocaine) Jelly) 1 joy 1X ONCE 08/26/20 22:15 08/26/20 22:16 DC 08/26/20 23:07 1 JOY Allergies: Allergies: Allergies Coded Allergies Type Severity Reaction Last Updated Verified Penicillins Allergy Intermediate LIGHT RASH CHILD 12/29/19 Yes Sulfa (Sulfonamide Antibiotics) Allergy Intermediate 08/29/19 Yes I S O L A T I O N *CONTACT* Allergy Unknown 12/31/19 Yes Physical Exam: PE: Constitutional: Well developed, well nourished, no acute distress, non-toxic appearance. HENT: Normocephalic, atraumatic, Eyes: EOMI, conjunctiva normal, no discharge. Neck: Normal range of motion, supple, Cardiovascular: S1/2 present, regular rhythm Lungs & Thorax: Speaking in full sentences, bilateral equal chest rise, no tachypnea or increased work of breathing Abdomen: soft, no tenderness, G tube not out of stoma, rn reports removing and checking ballon - no leak initially but after mom came to ed room, tube "just happened to fall out," and when arm check balloon there was a small leak Skin: Warm, dry, no erythema, no rash. [] Back: No tenderness, no CVA tenderness. [] Extremities: No tenderness, no cyanosis, no lower extremity edema Neurologic: Alert and oriented X 3, normal motor function, normal sensory function, no focal deficits noted. [] Psychologic: Affect normal, judgement normal, mood normal. [] Current Patient Data: Vital Signs: Vital Signs Date Time Temp Pulse Resp B/P (MAP) Pulse Ox O2 Delivery O2 Flow Rate FiO2 08/26/20 22:01 98.7 105 20 105/59 (74) 97 Room Air 98.7 EKG: EKG: [] Radiology/Procedures: Radiology/Procedures: []IMAGING REPORT Signed PATIENT: SUNITHA SCHULTZ ACCOUNT: [id number] : 2000 LOCATION: ER AGE: 20 SEX: F EXAM STATUS: REG ER ORD. PHYSICIAN: SALVATORE MEJIA DO REASON: confirm g-tube placement w/contrast through g-tube;OMNI 240,30ML PROCEDURE: KUB XR ABDOMEN 1V History: Reason: confirm g-tube placement w/contrast through g-tube;OMNI 240,30ML / Spl. Instructions: / History: Technique: Supine view the abdomen. Comparison: None. Findings: Jejunostomy tube projecting over the mid abdomen injected with contrast. Contrast opacification of small bowel. Gastric tube noted projecting over the upper abdomen. Minimal small bowel gas. Air stool scattered throughout the colon. Mild colonic stool burden. Impression: 1. Jejunostomy tube check. No evidence of contrast extravasation. 2. Gastrostomy tube also noted. Electronically signed by: Brendan Barros DO (08/27/2020 3:49 AM) [facility] DICTATED and SIGNED BY: BRENDAN BARROS DO DATE: 08/27/20 [id number] 0 Course & Med Decision Making: Course & Med Decision Making Pertinent Labs and Imaging studies reviewed. (See chart for details) Concern for G-tube "falling out." New 18 fr g-tube placed by rn and xray confirmed. Will discharge home with strict ED return precautions were given for abdominal pain, nausea or vomiting, rash or back pain.. Encouraged urgent outpatient follow-up with PMD and GI. Life-threatening processes were considered but are low suspicion at this time, given history, physical exam and ED workup. Pt was educated on all prescription medications and adverse effects. All patient's questions were answered and pt was stable at time of discharge. Life/limb-threatening differential includes but is not limited to, acute coronary syndrome/myocardial infarction, Boerhaave's, DKA, gastrointestinal bleeding, intracranial hemorrhage, ischemic bowel, meningitis, sepsis, surgical abdomen (AAA), toxidrome (drug over/overdose/carbon monoxide, etc), ovarian/testicular torsion, trauma, or infection/sepsis. I spoken with the patient and her caregivers. I explained the patient's condition, diagnoses and treatment plan based on the information available to me at this time. I have answered the patient and her caregiver's questions and addressed any concerns. The patient and her caregivers have a good understanding of patient's diagnosis, condition and treatment plan as can be expected at this point. Vital signs have been stable. Patient's condition is stable and appropriate for discharge from the emergency department. Patient will pursue further outpatient evaluation with primary care physician or other designated or consulting physician as outlined in the discharge instructions. The patient and/or caregivers are agreeable to this plan of care and follow-up instructions have been explained in detail. The patient and/or c aregivers have received these instructions in written form and have expressed an understanding of the discharge instructions. The patient and/or caregivers are aware that any significant change of condition or worsening of symptoms should prompt immediate return to this or the closest emergency department or call to 911. Pooja Disclaimer: [employer] Disclaimer: This electronic medical record was generated, in whole or in part, using a voice recognition dictation system. Departure Departure Impression: Primary Impression: Gastrostomy tube in place Additional Impression: Malfunction of gastrostomy tube Disposition: 01 DC HOME SELF CARE/HOMELESS Condition: STABLE Referrals: HI HOLLY MD (PCP) within 7 days Patient Instructions: Gastrostomy Tube, Adult Additional Instructions: FOLLOW UP WITH GASTROENTEROLOGY: Gastroenterology [facility] Address: [address] [place] [address] EMERGENCY DEPARTMENT GENERAL DISCHARGE INSTRUCTIONS Thank you for coming to [facility] Emergency Department (ED) today and trusting us with you care. We trust that you had a positive experience in our Emergency Department. If you wish to speak to the department management, you may call the Director at [phone]. YOUR FOLLOW UP INSTRUCTIONS ARE FOLLOWS: 1. Do you have a private Doctor? If you do not have a private doctor, please ask for a resource list of physicians or clinics that may be able to assist you with follow up care. 2. The Emergency Physicain has interpreted your x-rays. The X-Ray specialist will also review them. If there is a change in the findings, you will be notified in 48 hours when at all possible. 3. A lab test or culture has been done, your results will be reviewed and you will be notified if you need a change in treatment. ADDITIONAL INSTRUCTIONS AND INFORMATION: 1. Your care today has been supervised by a physician who is specially trained in emergency care. Many problems require more than one evaluation for a complete diagnosis and treatment. We recommend that you schedule your follow up appointment as recommended to ensure complete treatment of you illness or injury. If you are unable to obtain follow up care and continue to have a problem, or if your condition worsens, we recommend that you return to the ED. 2. We are not able to safely determine your condition over the phone nor are we able to give sound medical advice over the phone. For these safety reasons, if you call for medical advice we will ask you to come to the ED for further evaluation. 3. If you have any questions regarding these discharge instructions please call the ED at [phone]. SAFETY INFORMATION: In the interest of safety, wellness, and injury prevention; we encourage you to wear your sealbelt, if you smoke; quite smoking, and we encourage family to use a protective helmet for bicycling and other sporting events that present an increased risk for head injury. IF YOUR SYMPTOMS WORSEN OR NEW SYMPTOMS DEVELOP, OR YOU HAVE CONCERNS ABOUT YOUR CONDITION; OR IF YOUR CONDITION WORSENS WHILE YOU ARE WAITING FOR YOUR FOLLOW UP APPOINTMENT; EITHER CONTACT YOUR PRIMARY CARE DOCTOR, THE PHYSICIAN WHOSE NAME AND NUMBER YOU WERE GIVEN, OR RETURN TO THE ED IMMEDIATELY. SALVATORE GARDUNO DO Aug 27, 2020 04:25
== END 2020-08-27 04:35 | disposition home or self-care (01) ==
LOC: ER 20:11
DX: K94.23 Gastrostomy malfunction (principal); K21.9 Gastro-esophageal reflux disease without esophagitis; I10 Essential (primary) hypertension; G43.909 Migraine, unspecified, not intractable, without status migrainosus; J45.909 Unspecified asthma, uncomplicated; Z86.73 Personal history of transient ischemic attack (TIA), and cerebral infarction without residual deficits; Z86.14 Personal history of Methicillin resistant Staphylococcus aureus infection; G89.29 Other chronic pain; Z90.49 Acquired absence of other specified parts of digestive tract; Z88.0 Allergy status to penicillin; Z88.2 Allergy status to sulfonamides; Z91.041 Radiographic dye allergy status; Y83.8 Other surgical procedures as the cause of abnormal reaction of the patient, or of later complication, without mention of misadventure at the time of the procedure; Y92.89 Other specified places as the place of occurrence of the external cause
CPT/HCPCS: 43762; 74018; 99284

== ENCOUNTER → 2020-09-03 | Outpatient (CLI) | payer OTHER, MEDICAID ==
[2020-08-26 22:01] VITALS: BP 105/59
[2020-09-03 12:00] LABS: BASO % 0 % (0-3); EOS % 1 % (0-3); HEMATOCRIT 25.8 % (36.0-47.0); HEMOGLOBIN 8.3 g/dL (12.0-15.5); LYMPH # 1.3 x10^3/uL (1.0-4.8); LYMPH % 21 % (24-48); MEAN CORPUSCULAR HEMOGLOBIN 26 pg (25-35); MEAN CORPUSCULAR HGB CONC 32 g/dL (31-37); MEAN CORPUSCULAR VOLUME 80 fL (79-100); MONO # 0.3 x10^3/uL (0.0-1.1); MONO % 6 % (0-9); NEUT # 4.5 x10^3/uL (1.8-7.7); NEUT % 73 % (31-73); PLATELET COUNT 202 x10^3/uL (140-400); RED BLOOD COUNT 3.21 x10^6/uL (3.50-5.40); RED CELL DISTRIBUTION WIDTH 17.1 % (11.5-14.5); WHITE BLOOD COUNT 6.2 x10^3/uL (4.0-11.0)
[2020-09-03 12:08] LABS: CALCIUM 8.4 mg/dL (8.5-10.1); CREATININE 0.6 mg/dL (0.6-1.0); POTASSIUM 4.1 mmol/L (3.5-5.1)
[2020-09-03 12:13] LABS: ALBUMIN 3.4 g/dL (3.4-5.0); TOTAL BILIRUBIN 0.2 mg/dL (0.2-1.0); TOTAL PROTEIN 6.7 g/dL (6.4-8.2)
== END ==
LOC: ONCLAB 11:45
PROVIDERS: ATTEND Internal Medicine Hematology & Oncology
DX: D64.9 Anemia, unspecified (principal)
CPT/HCPCS: 36415; 80053; 82607; 82728; 82746; 83540; 83550; 85025

== ENCOUNTER 2020-09-04 08:37 | Outpatient (CLI) | payer OTHER, MEDICAID ==
[~2020-09-04] VITALS: Ht 170.2 cm; Wt 63.0 kg
[2020-09-04 09:00] VITALS: BP 114/61
[2020-09-04] MEDS ORDERED: IOHEXOL 240 MG/ML 50ML VIAL. IJ ONE (09:45)
[2020-09-04] MEDS ORDERED: MIDAZOLAM HCL/PF 2 MG/2 ML VIAL. IV ONE (09:45)
[2020-09-04] MEDS ORDERED: fentaNYL PF VIAL 100 MCG/2 ML VIAL IV ONE (09:45)
[2020-09-04] MEDS ORDERED: MIDAZOLAM HCL/PF 2 MG/2 ML VIAL. ONE (09:50)
[2020-09-04] MEDS ORDERED: fentaNYL PF VIAL 100 MCG/2 ML VIAL ONE (09:51)
[2020-09-04] MEDS ORDERED: IOHEXOL 240 MG/ML 50ML VIAL. ONE (09:58)
[2020-09-04 10:40] VITALS: BP 108/54
[2020-09-04 10:50] VITALS: BP 110/58
[2020-09-04 11:05] VITALS: BP 100/61
[2020-09-04 11:20] VITALS: BP 112/61
[2020-09-04 11:35] VITALS: BP 107/56
--- NOTE | 2020-09-04 11:54 | NUR ---
Discharge Note: SUNITHA SCHULTZ Discharge instructions and discharge home medications reviewed with Patient and a copy given. All questions have been answered and understanding verbalized. The following instructions and handouts were given: G tube site care Discontinued lines and drains: No lines to dc. Patient discharged to home with grandfather via personal vehicle.
--- NOTE | 2020-09-05 16:53 | RAD ---
Fluoroscopically guided placement of gastrostomy tube and jejunostomy tube Clinical Indication: G-tube and J-tube malfunction malfunction. Discussion: The procedure was explained in its entirety to the patient or the patients designated accounting representative by a member of the treatment team, including a discussion of the risks, benefits and commonly accepted alternatives to the procedure, as well as the expected consequences of no therapy whatsoever. Discussion of the risks included, but was not limited to, those that are most frequent and those that are rare but possibly severe or life-threatening, as well as the possibility of unforeseen complications. All elements of maximal sterile barrier technique including the use of a cap, mask, sterile gown, sterile gloves, large sterile sheet, appropriate hand hygiene, and 2% chlorhexidine for cutaneous antisepsis (or acceptable alternative antiseptic per current guidelines) were followed for this procedure. Contrast was administered through the pre-existing G and J tubes with tips located in the gastric lumen and small bowel are speculated. Guidewire was advanced into the gastric lumen. The pre-existing catheter was removed over the wire and replaced with a new 20 Gambian G-tube. The retention balloon was instilled with sterile water and the catheter secured in place with variable stoma. Final catheter position was confirmed with fluoroscopic injection of contrast. Contrast was administered to the pre-existing jejunostomy tube delineating the small bowel. A Guidewire was advanced through the pre-existing J jejunostomy tube into the small bowel. The pre-existing tube was removed over the wire and replaced with an 18 Gambian jejunostomy tube. The retention balloon was instilled with sterile water and the catheter secured in place with variable stoma. Final catheter position was confirmed with fluoroscopic injection of contrast. FLOUOR TIME 1.5 MINUTES DOSE AREA PRODUCT 3 Gycm2 The procedures performed under conscious sedation including continuous cardiopulmonary monitoring via dedicated sedation nurse. [id number] sedation time: 26minutes Impression: Fluoroscopically guided replacement of gastrostomy tube and jejunostomy tube
== END 2020-09-04 11:57 | disposition home or self-care (01) ==
LOC: INTRAD 08:37
PROVIDERS: ATTEND Surgery
DX: K94.23 Gastrostomy malfunction (principal); I10 Essential (primary) hypertension; J45.909 Unspecified asthma, uncomplicated; K21.9 Gastro-esophageal reflux disease without esophagitis; F41.9 Anxiety disorder, unspecified; F32.9 Major depressive disorder, single episode, unspecified; Z90.49 Acquired absence of other specified parts of digestive tract; Z98.890 Other specified postprocedural states; Z79.899 Other long term (current) drug therapy; Z88.0 Allergy status to penicillin; Z88.2 Allergy status to sulfonamides; Z82.49 Family history of ischemic heart disease and other diseases of the circulatory system
CPT/HCPCS: 49450; 49451; 99152; 99153; B4087; C1769; J2250; J3010; Q9966

== ENCOUNTER 2020-09-18 05:12 | Emergency (ER) | payer OTHER, MEDICAID ==
[~2020-09-18] VITALS: Ht 170.2 cm; Wt 63.1 kg
[~2020-09-18 05:12] MED LIST changes: +MIRT-7 PO; -MIRT15TA3 PO
[2020-09-18] MEDS ORDERED: IV NORMAL SALINE 1000ML BAG 1,000 ML IV ONE (05:30)
[2020-09-18] MEDS ORDERED: KETOROLAC 30 MG/ML VIAL. IVP ONE (05:30)
[2020-09-18] MEDS ORDERED: cefTRIAXone IV Push 1 GM VIAL. IVP ONE (05:30)
[2020-09-18] MEDS ORDERED: ONDANSETRON PF 4 MG/2 ML VIAL. IVP ONE ×2 (05:30→08:30)
--- NOTE | 2020-09-18 05:38 | ED.ADGEN ---
Past Medical History Past Medical History: Asthma, DVT, GERD, Hypertension, Migraines, MRSA, Other Additional Past Medical Histor: chronic ABD pain and N/V, GASTROPARESIS, HYPOTENSION, LUNG PROBLEMS, Past Surgical History: Cholecystectomy, Tonsillectomy, Other Additional Past Surgical Histo: G-tube x20; J-tube, PYLORIPLASTY, ADENOIDECTOMY, PORT PLACEMENT Smoking Status: Never Smoker Alcohol Use: None General Adult EDM: Chief Complaint: FEVER HPI: HPI: Patient is a 20-year-old female well-known to this emergency room with past medical history of gastroparesis who presents to the emergency room complaining of fever and body aches. Patient states she has been having pain around her port site. Her port is about 2 months old. She states she was running a fever of 102 at home overnight. She did take Tylenol about 1:00 this morning. She also tried ice to help get her fever down. She states that she had diffuse body aches. She denies chest pain, cough, URI symptoms, shortness of breath, abdominal pain, vomiting. She does have chronic nausea that is unchanged. She denies any urinary symptoms. Review of Systems: Review of Systems: Complete ROS is negative unless otherwise documented in HPI Current Medications: Current Medications Medications (Trade) Dose Ordered Sig/Kel Start Time Stop Time Status Last Admin Dose Admin Ceftriaxone Sodium (Rocephin) 1 gm 1X ONCE 09/18/20 05:30 09/18/20 05:33 DC 09/18/20 06:29 1 GM Famotidine (Pepcid Vial) 20 mg 1X ONCE 09/18/20 08:30 09/18/20 08:31 DC 09/18/20 08:29 20 MG Ketorolac Tromethamine (Toradol 30mg Vial) 30 mg 1X ONCE 09/18/20 05:30 09/18/20 05:33 DC 09/18/20 06:29 30 MG Ondansetron HCl (Zofran) 4 mg 1X ONCE 09/18/20 08:30 09/18/20 08:31 DC 09/18/20 08:29 4 MG Sodium Chloride 1,000 ml @ 1,000 mls/hr 1X ONCE 09/18/20 05:30 09/18/20 06:29 DC 09/18/20 06:28 1,000 MLS/HR Allergies: Allergies: Allergies Coded Allergies Type Severity Reaction Last Updated Verified iron Allergy Severe Anaphylaxis 09/17/20 Yes Penicillins Allergy Intermediate LIGHT RASH CHILD 09/17/20 Yes Sulfa (Sulfonamide Antibiotics) Allergy Intermediate 09/17/20 Yes I S O L A T I O N *CONTACT* Allergy Unknown 09/17/20 Yes Physical Exam: PE: Constitutional: Well developed, well nourished, no acute distress, non-toxic appearance. HENT: Normocephalic, atraumatic, Eyes: EOMI, conjunctiva normal, no discharge. Neck: Normal range of motion, supple, Cardiovascular: S1/2 present, regular rhythm Lungs & Thorax: Speaking in full sentences, bilateral equal chest rise, no tachypnea or increased work of breathing Abdomen: soft, no tenderness, Skin: Warm, dry, no erythema, no rash. [] Back: No tenderness, no CVA tenderness. [] Extremities: No tenderness, no cyanosis, no lower extremity edema Neurologic: Alert and oriented X 3, normal motor function, normal sensory function, no focal deficits noted. [] Psychologic: Affect normal, judgement normal, mood normal. [] Current Patient Data: Labs: Laboratory Tests Test 09/18/20 05:30 09/18/20 06:48 09/18/20 08:12 White Blood Count 4.5 x10^3/uL (4.0-11.0) Red Blood Count 3.73 x10^6/uL (3.50-5.40) Hemoglobin 10.4 g/dL (12.0-15.5) L Hematocrit 32.3 % (36.0-47.0) L Mean Corpuscular Volume 87 fL (79-100) Mean Corpuscular Hemoglobin 28 pg (25-35) Mean Corpuscular Hemoglobin Concent 32 g/dL (31-37) Red Cell Distribution Width 21.7 % (11.5-14.5) H Platelet Count 134 x10^3/uL (140-400) L Neutrophils (%) (Auto) 73 % (31-73) Lymphocytes (%) (Auto) 15 % (24-48) L Monocytes (%) (Auto) 10 % (0-9) H Eosinophils (%) (Auto) 1 % (0-3) Basophils (%) (Auto) 0 % (0-3) Neutrophils # (Auto) 3.3 x10^3/uL (1.8-7.7) Lymphocytes # (Auto) 0.7 x10^3/uL (1.0-4.8) L Monocytes # (Auto) 0.4 x10^3/uL (0.0-1.1) Eosinophils # (Auto) 0.1 x10^3/uL (0.0-0.7) Basophils # (Auto) 0.0 x10^3/uL (0.0-0.2) Urine Collection Type Unknown Urine Color Yellow Urine Clarity Clear Urine pH 8.0 (<5.0-8.0) Urine Specific [place] 1.010 (1.000-1.030) Urine Protein Negative mg/dL (NEG-TRACE) Urine Glucose (UA) Negative mg/dL (NEG) Urine Ketones (Stick) Negative mg/dL (NEG) Urine Blood Negative (NEG) Urine Nitrite Negative (NEG) Urine Bilirubin Negative (NEG) Urine Urobilinogen Dipstick 0.2 mg/dL (0.2 mg/dL) Urine Leukocyte Esterase Negative (NEG) Urine RBC 0 /HPF (0-2) Urine WBC Occ /HPF (0-4) Urine Squamous Epithelial Cells Mod /LPF Urine Bacteria Few /HPF (0-FEW) Urine Test Negative (NEG) Sodium Level 144 mmol/L (136-145) Potassium Level 4.4 mmol/L (3.5-5.1) Chloride Level 112 mmol/L (98-107) H Carbon Dioxide Level 23 mmol/L (21-32) Anion Gap 9 (6-14) Blood Urea Nitrogen 14 mg/dL (7-20) Creatinine 0.5 mg/dL (0.6-1.0) L Estimated GFR (Cockcroft-Gault) 154.3 BUN/Creatinine Ratio 28 (6-20) H Glucose Level 99 mg/dL (70-99) Lactic Acid Level 0.9 mmol/L (0.4-2.0) Calcium Level 7.4 mg/dL (8.5-10.1) L Total Bilirubin 0.2 mg/dL (0.2-1.0) Aspartate Amino Transferase (AST) 7 U/L (15-37) L Alanine Aminotransferase (ALT) 16 U/L (14-59) Alkaline Phosphatase 75 U/L (46-116) Troponin I Quantitative < 0.017 ng/mL (0.000-0.055) Total Protein 5.3 g/dL (6.4-8.2) L Albumin 3.1 g/dL (3.4-5.0) L Albumin/Globulin Ratio 1.4 (1.0-1.7) Laboratory Tests 09/18/20 05:30 Laboratory Tests 09/18/20 08:12 Vital Signs: Vital Signs Date Time Temp Pulse Resp B/P (MAP) Pulse Ox O2 Delivery O2 Flow Rate FiO2 09/18/20 08:08 94 103/56 (72) 100 Room Air 09/18/20 05:20 98.5 18 98.5 EKG: EKG: Sinus rhythm at 90 bpm, no axis deviation, normal intervals, T wave inversion V2, no ST elevations or ST depressions Heart Score: C/O Chest Pain: N/A Risk Factors: Risk Factors: DM, Current or recent (<one month) smoker, HTN, HLP, family history of CAD, obesity. Risk Scores: Score 0 - 3: 2.5% MACE over next 6 weeks - Discharge Home Score 4 - 6: 20.3% MACE over next 6 weeks - Admit for Clinical Observation Score 7 - 10: 72.7% MACE over next 6 weeks - Early Invasive Strategies Radiology/Procedures: Radiology/Procedures: IMAGING REPORT Signed PATIENT: SUNITHA SCHULTZ ACCOUNT: [id number] : 2000 LOCATION: ER AGE: 20 SEX: F EXAM STATUS: REG ER ORD. PHYSICIAN: SALVATORE MEJIA DO REASON: fever PROCEDURE: CHEST AP ONLY Exam Date: 09/18/2020 6:56 AM XR CHEST 1V Indication: Reason: fever / Spl. Instructions: / History: Comparison: July 25, 2020 FINDINGS/ IMPRESSION: Calcified granulomas again seen on the left. Right central venous catheter terminates at the cavoatrial junction. The cardiac silhouette and pulmonary vasculature are within normal limits. There is no focal consolidation, pleural effusion or pneumothorax. Electronically signed by: Salas Suazo MD (09/18/2020 7:27 AM) [id number] DICTATED and SIGNED BY: SALAS SUAZO MD DATE: 09/18/20 [id number] 0 Course & Med Decision Making: Course & Med Decision Making Pertinent Labs and Imaging studies reviewed. (See chart for details) Patient is a 20-year-old female who presents to the emergency room complaining of fever. Patient is afebrile upon arrival. She is well-appearing. Vitals are normal. We will draw blood cultures, lactic, sepsis labs. Patient is requesting something for pain. She will be given Toradol. Will await lab work. Patient discussed with oncoming physician who will assume care. Concern for subjective fever less than 24 hours , oral temperature 100.2 at home. Chest x-ray with no acute findings. Urinalysis with no bacteria. No leukocytosis on labs. Has known, chronic, stable normocytic anemia. Patient reports Dr. Mohr has prescribed her IV Zofran to give for nausea and vomiting. Did report 1 episode of nausea this morning but no emesis, has chronic nausea and gastroparesis-denies any new or worsening sxs. Denies any associated dysuria, hematuria abdominal pain, back pain, hemoptysis, sore throat, cough, headache, neck stiffness or vaginal bleeding. Patient has been resting comfortably in the ED with no further symptoms. Pt well, non-toxic appearing. Negative covid tests in July and August 2020. Will DC home with [id number]-flfysug analgesia as needed for subjective fever and chills. Will discharge home with strict ED return precautions were given for fever, neck stiffness, headache, intractable nausea or vomiting or dehydration. Encouraged urgent outpatient follow-up with PMD in 24 to 48 hours, will provide GI referral although patient follows with a specialist in [place]. Life-threatening processes were considered but are low suspicion at this time, given history, physical exam and ED workup. Pt was educated on all prescription medications and adverse effects. All patient's questions were answered and pt was stable at time of discharge. Life/limb-threatening differential includes but is not limited to, surgical abdomen (appendicitis, cholecystitis, diverticulitis, inflammatory bowel di sease, abscess, perforation), meningitis, encephalitis, Jeffery's angina, endocarditis, myocarditis, life-threatening rash (necrotizing fasciitis), gynecologic and urologic emergencies (endometritis, ovarian TOA, obstructive nephropathy), head and neck abscess, infection concerning for sepsis or shock, or respiratory failure. I spoken with the patient and her caregivers. I explained the patient's condition, diagnoses and treatment plan based on the information available to me at this time. I have answered the patient and her caregiver's questions and addressed any concerns. The patient and her caregivers have a good understanding of patient's diagnosis, condition and treatment plan as can be expected at this point. Vital signs have been stable. Patient's condition is stable and appropriate for discharge from the emergency department. Patient will pursue further outpatient evaluation with primary care physician or other designated or consulting physician as outlined in the discharge instructions. The patient and/or caregivers are agreeable to this plan of care and follow-up instructions have been explained in detail. The patient and/or caregivers have received these instructions in written form and have expressed an understanding of the discharge instructions. The patient and/or caregivers are aware that any significant change of condition or worsening of symptoms jae uld prompt immediate return to this or the closest emergency department or call to [facility] Disclaimer: Pooja Disclaimer: This electronic medical record was generated, in whole or in part, using a voice recognition dictation system. Departure Departure Impression: Primary Impression: Fever Additional Impression: Normocytic anemia Disposition: HOME / SELF CARE / HOMELESS Condition: STABLE Referrals: HI HOLLY MD (PCP) follow up in 24-48 hours for reevaluation Patient Instructions: Anemia, Nonspecific-Brief, Fever of Unknown Origin, Gastroparesis Additional Instructions: FOLLOW UP WITH GASTROENTEROLOGY: For management gastroparesis Gastroenterology [facility] Address: [address] [place] [address] EMERGENCY DEPARTMENT GENERAL DISCHARGE INSTRUCTIONS Thank you for coming to [facility] Emergency Department (ED) today and trusting us with you care. We trust that you had a positive experience in our Emergency Department. If you wish to speak to the department management, you may call the Director at [phone]. YOUR FOLLOW UP INSTRUCTIONS ARE FOLLOWS: 1. Do you have a private Doctor? If you do not have a private doctor, please ask for a resource list of physicians or clinics that may be able to assist you with follow up care. 2. The Emergency Physicain has interpreted your x-rays. The X-Ray specialist will also review them. If there is a change in the findings, you will be notified in 48 hours when at all possible. 3. A lab test or culture has been done, your results will be reviewed and you will be notified if you need a change in treatment. ADDITIONAL INSTRUCTIONS AND INFORMATION: 1. Your care today has been supervised by a physician who is specially trained in emergency care. Many problems require more than one evaluation for a complete diagnosis and treatment. We recommend that you schedule your follow up appointment as recommended to ensure complete treatment of you illness or injury. If you are unable to obtain follow up care and continue to have a problem, or if your condition worsens, we recommend that you return to the ED. 2. We are not able to safely determine your condition over the phone nor are we able to give sound medical advice over the phone. For these safety reasons, if you call for medical advice we will ask you to come to the ED for further evaluation. 3. If you have any questions regarding these discharge instructions please call the ED at [phone]. SAFETY INFORMATION: In the interest of safety, wellness, and injury prevention; we encourage you to wear your sealbelt, if you smoke; quite smoking, and we encourage family to use a protective helmet for bicycling and other sporting events that present an increased risk for head injury. IF YOUR SYMPTOMS WORSEN OR NEW SYMPTOMS DEVELOP, OR YOU HAVE CONCERNS ABOUT YOUR CONDITION; OR IF YOUR CONDITION WORSENS WHILE YOU ARE WAITING FOR YOUR FOLLOW UP APPOINTMENT; EITHER CONTACT YOUR PRIMARY CARE DOCTOR, THE PHYSICIAN WHOSE NAME AND NUMBER YOU WERE GIVEN, OR RETURN TO THE ED IMMEDIATELY. Problem Qualifiers KIERAN CRAIN MD Sep 18, 2020 05:38 SALVATORE MEJIA DO Sep 18, 2020 09:44
[2020-09-18 06:59] LABS: BILIRUBIN,URINE NEGATIVE (NEG); CLARITY,URINE CLEAR; COLOR,URINE YELLOW; NITRITE,URINE NEGATIVE (NEG); PROTEIN,URINE NEGATIVE (NEG-TRACE); UROBILINOGEN,URINE 0.2 mg/dL (0.2 mg/dL)
[2020-09-18 07:04] LABS: U PREG PATIENT NEGATIVE (NEG)
[2020-09-18 07:16] LABS: BASO % 0 % (0-3); EOS # 0.1 x10^3/uL (0.0-0.7); EOS % 1 % (0-3); HEMATOCRIT 32.3 % (36.0-47.0); HEMOGLOBIN 10.4 g/dL (12.0-15.5); LYMPH # 0.7 x10^3/uL (1.0-4.8); LYMPH % 15 % (24-48); MEAN CORPUSCULAR HEMOGLOBIN 28 pg (25-35); MEAN CORPUSCULAR HGB CONC 32 g/dL (31-37); MEAN CORPUSCULAR VOLUME 87 fL (79-100); MONO # 0.4 x10^3/uL (0.0-1.1); MONO % 10 % (0-9); NEUT # 3.3 x10^3/uL (1.8-7.7); NEUT % 73 % (31-73); PLATELET COUNT 134 x10^3/uL (140-400); RED BLOOD COUNT 3.73 x10^6/uL (3.50-5.40); RED CELL DISTRIBUTION WIDTH 21.7 % (11.5-14.5); WHITE BLOOD COUNT 4.5 x10^3/uL (4.0-11.0)
[2020-09-18 07:17] LABS: BACTERIA,URINE FEW /HPF (0-FEW); RBC,URINE 0 /HPF (0-2); WBC,URINE OCC /HPF (0-4)
--- NOTE | 2020-09-18 07:22 | EKG ---
[facility] [address] [place] [address] Test Date: 2020-09-18 Test Time: 07:04:26 Pat Name: SUNITHA SCHULTZ Department: Room: Gender: F Director Immunology: : 2000 Requested By: SALVATORE MEJIA Order Number: [id number] Reading MD: Measurements Intervals [place] Rate: 90 P: SC: QRS: 24 QRSD: 64 T: 24 QT: 324 QTc: 400 Interpretive Statements ACCELERATED JUNCTIONAL RHYTHM ABNORMAL ECG RI6.02 Compared to ECG 09/18/2020 07:03:08 Accelerated junctional rhythm now present
--- NOTE | 2020-09-18 07:30 | RAD ---
Exam Date: 09/18/2020 6:56 AM XR CHEST 1V Indication: Reason: fever / Spl. Instructions: / History: Comparison: July 25, 2020 FINDINGS/ IMPRESSION: Calcified granulomas again seen on the left. Right central venous catheter terminates at the cavoatri al junction. The cardiac silhouette and pulmonary vasculature are within normal limits. There is no focal consolidation, pleural effusion or pneumothorax. Electronically signed by: Felix Suazo MD (09/18/2020 7:27 AM) [id number]
[2020-09-18] MEDS ORDERED: FAMOTIDINE 20 MG/2 ML VIAL IVP ONE (08:30)
[2020-09-18 08:36] LABS: CALCIUM 7.4 mg/dL (8.5-10.1); CREATININE 0.5 mg/dL (0.6-1.0); GFR 154.3; POTASSIUM 4.4 mmol/L (3.5-5.1)
[2020-09-18 08:42] LABS: ALBUMIN 3.1 g/dL (3.4-5.0); ALBUMIN/GLOBULIN RATIO 1.4 (1.0-1.7); TOTAL BILIRUBIN 0.2 mg/dL (0.2-1.0); TOTAL PROTEIN 5.3 g/dL (6.4-8.2)
[2020-09-18 10:38] VITALS: BP 102/57
== END 2020-09-18 11:05 | disposition home or self-care (01) ==
LOC: ER 05:12
DX: D64.9 Anemia, unspecified (principal); G89.29 Other chronic pain; K21.9 Gastro-esophageal reflux disease without esophagitis; J45.909 Unspecified asthma, uncomplicated; I10 Essential (primary) hypertension; G43.909 Migraine, unspecified, not intractable, without status migrainosus; Z86.14 Personal history of Methicillin resistant Staphylococcus aureus infection; Z88.0 Allergy status to penicillin; Z88.2 Allergy status to sulfonamides; Z91.041 Radiographic dye allergy status; Z88.8 Allergy status to other drugs, medicaments and biological substances
CPT/HCPCS: 36415; 71045; 80053; 81001; 81025; 83605; 84484; 85025; 87040; 93005; 96361; 96374; 96375; 96376; 99285; J0696; J1885; J2405; J3490; J7030

== ENCOUNTER → 2020-10-03 | Outpatient (CLI) | payer OTHER, MEDICAID ==
[2020-09-18 10:38] VITALS: BP 102/57
[~2020-10-03] MED LIST changes: -MIRT-7 PO; +MIRT15TA3 PO
[2020-10-03 11:21] LABS: BASO % 0 % (0-3); EOS % 0 % (0-3); HEMATOCRIT 32.6 % (36.0-47.0); HEMOGLOBIN 10.8 g/dL (12.0-15.5); LYMPH # 1.1 x10^3/uL (1.0-4.8); LYMPH % 18 % (24-48); MEAN CORPUSCULAR HEMOGLOBIN 30 pg (25-35); MEAN CORPUSCULAR HGB CONC 33 g/dL (31-37); MEAN CORPUSCULAR VOLUME 90 fL (79-100); MONO # 0.4 x10^3/uL (0.0-1.1); MONO % 7 % (0-9); NEUT # 4.7 x10^3/uL (1.8-7.7); NEUT % 75 % (31-73); PLATELET COUNT 139 x10^3/uL (140-400); RED BLOOD COUNT 3.61 x10^6/uL (3.50-5.40); RED CELL DISTRIBUTION WIDTH 22.9 % (11.5-14.5); WHITE BLOOD COUNT 6.2 x10^3/uL (4.0-11.0)
== END ==
LOC: ONCLAB 10:00
PROVIDERS: ATTEND Internal Medicine Hematology & Oncology
DX: D64.9 Anemia, unspecified (principal)
CPT/HCPCS: 36415; 82728; 83540; 83550; 85025; 87040

== ENCOUNTER 2020-10-16 08:52 | Outpatient (CLI) | payer OTHER, MEDICAID ==
[~2020-10-16] VITALS: Ht 170.2 cm; Wt 65.5 kg
[2020-10-16 09:15] LABS: BASO % 0 % (0-3); EOS # 0.2 x10^3/uL (0.0-0.7); EOS % 3 % (0-3); HEMOGLOBIN 11.4 g/dL (12.0-15.5); LYMPH # 1.8 x10^3/uL (1.0-4.8); LYMPH % 33 % (24-48); MEAN CORPUSCULAR HEMOGLOBIN 31 pg (25-35); MEAN CORPUSCULAR HGB CONC 34 g/dL (31-37); MEAN CORPUSCULAR VOLUME 93 fL (79-100); MONO # 0.6 x10^3/uL (0.0-1.1); MONO % 11 % (0-9); NEUT # 2.8 x10^3/uL (1.8-7.7); NEUT % 53 % (31-73); PLATELET COUNT 124 x10^3/uL (140-400); RED BLOOD COUNT 3.66 x10^6/uL (3.50-5.40); RED CELL DISTRIBUTION WIDTH 21.6 % (11.5-14.5); WHITE BLOOD COUNT 5.3 x10^3/uL (4.0-11.0)
[2020-10-16 09:21] LABS: CALCIUM 8.2 mg/dL (8.5-10.1); CREATININE 0.6 mg/dL (0.6-1.0); POTASSIUM 4.4 mmol/L (3.5-5.1)
[2020-10-16 09:23] VITALS: BP 111/56
[2020-10-16 09:28] LABS: ALBUMIN 3.7 g/dL (3.4-5.0); ALBUMIN/GLOBULIN RATIO 1.4 (1.0-1.7); TOTAL BILIRUBIN 0.2 mg/dL (0.2-1.0); TOTAL PROTEIN 6.3 g/dL (6.4-8.2)
[2020-10-16 09:29] LABS: PROTHROMBIN TIME PATIENT 13.8 SEC (11.7-14.0)
[2020-10-16] MEDS ORDERED: IOHEXOL 240 MG/ML 50ML VIAL. ONE (11:19)
[2020-10-16] MEDS ORDERED: fentaNYL PF VIAL 100 MCG/2 ML VIAL ONE (11:20)
[2020-10-16] MEDS ORDERED: MIDAZOLAM HCL/PF 2 MG/2 ML VIAL. ONE (11:20)
[2020-10-16] MEDS ORDERED: IOHEXOL 240 MG/ML 50ML VIAL. IJ ONE (11:45)
[2020-10-16] MEDS ORDERED: MIDAZOLAM HCL/PF 2 MG/2 ML VIAL. IV ONE (11:45)
[2020-10-16] MEDS ORDERED: fentaNYL PF VIAL 100 MCG/2 ML VIAL IV ONE (11:45)
[2020-10-16 11:58] VITALS: BP 112/64
[2020-10-16 12:09] VITALS: BP 111/64
[2020-10-16 12:25] VITALS: BP 100/51
[2020-10-16 12:40] VITALS: BP 112/73
--- NOTE | 2020-10-16 13:05 | NUR ---
Pt discharged to home with family in private vehicle. Discharge instructions reviewed with patient
--- NOTE | 2020-10-16 16:25 | RAD ---
Fluoroscopically replacement of gastrostomy and jejunostomy tubes with Low Profile button tubes 2020 Consent: The procedure was explained in its entirety to the patient or the patients designated repres entative by a member of the treatment team, including a discussion of the risks, benefits and commonl y accepted alternatives to the procedure, as well as the expected consequences of no therapy whatsoev er. Discussion of the risks included, but was not limited to, those that are most frequent and thos e that are rare but possibly severe or life-threatening, as well as the possibility of unforeseen com plications. A timeout procedure was performed. The patient was placed in the supine position. The anterior abdome n was prepped and draped using sterile barrier technique. The pre-existing catheters were evaluated u nder fluoroscopy and found to be appropriately positioned in the stomach and jejunum. Guidewire was a dvanced through the gastrostomy tube into the stomach and the pre-existing catheter removed. A new ca theter was advanced into position, the retention balloon inflated, and contrast administration referr ing physician. This was repeated and essentially identical fashion at the jejunostomy catheter site. No immediate complications were identified. Gastrostomy Button: 20 Fr, 3.5 cm length Jejunostomy Button: 18 Fr, 4.5 cm length Fluoroscopy time: 1.4 minutes Dose area product 1.64 Naik centimeter squared Sedation: The procedure was performed under conscious sedation including continuous cardiopulmonary m onitoring via a dedicated sedation nurse. [id number] sedation time: 23 minutes Impression: Replacement of gastrostomy and jejunostomy tubes with Low Profile devices. Routine 3 varun h exchange recommended. Electronically signed by: Flo Cartwright MD (10/16/2020 4:23 PM) [id number]
== END 2020-10-16 13:08 | disposition home or self-care (01) ==
LOC: INTRAD 08:52
PROVIDERS: ATTEND Surgery
DX: Z46.59 Encounter for fitting and adjustment of other gastrointestinal appliance and device (principal); I10 Essential (primary) hypertension; J45.909 Unspecified asthma, uncomplicated; K21.9 Gastro-esophageal reflux disease without esophagitis; F41.9 Anxiety disorder, unspecified; F32.9 Major depressive disorder, single episode, unspecified; D64.9 Anemia, unspecified; Z90.49 Acquired absence of other specified parts of digestive tract; Z98.890 Other specified postprocedural states; Z79.899 Other long term (current) drug therapy; Z88.0 Allergy status to penicillin; Z88.2 Allergy status to sulfonamides; Z93.1 Gastrostomy status
CPT/HCPCS: 36415; 49452; 80053; 85025; 85610; 99152; 99153; B4087; C1769; J2250; J3010; Q9966; 49450; 49451

== ENCOUNTER 2021-01-23 13:33 | Observation (INO) | payer OTHER, MEDICARE, MEDICAID ==
[~2021-01-23] VITALS: Ht 170.2 cm; Wt 68.0 kg
[~2021-01-23 13:33] MED LIST changes: +BIRTH CONTROL PILL SL; +BREO ELLIPTA 21 EACH IH; +CEFE100B IV; +CHOL40003 JT; -CHOL40003 PO; +FAMO40TA4 IV; +GABA600T7 JT; -GABA600T7 PO; +HYDR-2761 JT; +HYOS0.3715 JT; +MERO500V24 IV; +METO75TA PO; -MIDO5TAB4 PO; +MIDO5TAB4 SL; +MIRT-7 PO; -MIRT15TA3 PO; -MONT10TA49 GT; +MONT10TA49 PO; +PANT40TA77 JT; +SCOP1PAT12 TP; +TIOT18CA IH; +TIZA2CAP JT; -TIZA2CAP PO; +TPN PER PHARMACY IV; +TRAM100C3 JT; -TRAM100C3 PO; +VALP500S JT; +[UNRECOGNIZED DRUG - MIXTURE] IV
[2021-01-23] MEDS ORDERED: fentaNYL PF VIAL 100 MCG/2 ML VIAL IVP ONE ×2 (14:15→17:45)
[2021-01-23] MEDS ORDERED: IV NORMAL SALINE 1000ML BAG 1,000 ML IV SCH (14:15)
[2021-01-23 14:46] LABS: BASO % 0 % (0-3); EOS # 0.1 x10^3/uL (0.0-0.7); EOS % 2 % (0-3); HEMATOCRIT 32.1 % (36.0-47.0); LYMPH # 1.6 x10^3/uL (1.0-4.8); LYMPH % 29 % (24-48); MEAN CORPUSCULAR HEMOGLOBIN 31 pg (25-35); MEAN CORPUSCULAR HGB CONC 34 g/dL (31-37); MEAN CORPUSCULAR VOLUME 90 fL (79-100); MONO # 0.3 x10^3/uL (0.0-1.1); MONO % 6 % (0-9); NEUT # 3.5 x10^3/uL (1.8-7.7); NEUT % 64 % (31-73); PLATELET COUNT 152 x10^3/uL (140-400); RED BLOOD COUNT 3.55 x10^6/uL (3.50-5.40); RED CELL DISTRIBUTION WIDTH 16.2 % (11.5-14.5); WHITE BLOOD COUNT 5.5 x10^3/uL (4.0-11.0)
[2021-01-23 14:48] LABS: BILIRUBIN,URINE NEGATIVE (NEG); CLARITY,URINE CLEAR; COLOR,URINE YELLOW; NITRITE,URINE NEGATIVE (NEG); PROTEIN,URINE NEGATIVE (NEG-TRACE); UROBILINOGEN,URINE 0.2 mg/dL (0.2 mg/dL)
[2021-01-23 14:54] LABS: BACTERIA,URINE 0 /HPF (0-FEW); CALCIUM 8.5 mg/dL (8.5-10.1); CREATININE 0.6 mg/dL (0.6-1.0)
[2021-01-23 14:55] LABS: YEAST,URINE PRESENT /HPF
[2021-01-23 14:59] LABS: ALBUMIN 3.5 g/dL (3.4-5.0); ALBUMIN/GLOBULIN RATIO 1.2 (1.0-1.7); TOTAL BILIRUBIN 0.4 mg/dL (0.2-1.0); TOTAL PROTEIN 6.4 g/dL (6.4-8.2)
--- NOTE | 2021-01-23 15:35 | PHYS DOC ---
Past Medical History Past Medical History: Asthma, DVT, GERD, Hypertension, Migraines, MRSA, Other Additional Past Medical Histor: GASTROPORESIS,RESP.FAILURESLEEP APNEA Past Surgical History: Other Additional Past Surgical Histo: X 2 J-TUBES,G-TUBE,RIGHT CHEST PORT Smoking Status: Never Smoker Alcohol Use: None General Adult EDM: Chief Complaint: ABDOMINAL PAIN HPI: HPI: Patient is a 20 year old female who presents with her with increased abdominal pain, fever of 100.5 yesterday, but has been taking her hydrocodone with Tylenol in it, so no fever here and abdominal swelling after being discharged January 21. She states that Dr. Santana and her physician told her to come back here to see if she needs to have fluid drained off of her abdomen. She rates her pain at a 9 out of 10. Patient has 2 J-tube, G-tube and a right chest port. Has history of DVT, hypertension, migraine, MRSA, ascites, gastroparesis, respiratory failure, sleep apnea, asthma. Review of Systems: Review of Systems: Constitutional: Denies fever or chills. [] Eyes: Denies change in visual acuity. [] HENT: Denies nasal congestion or sore throat. [] Respiratory: Denies cough or shortness of breath. [] Cardiovascular: Denies chest pain or edema. [] GI: +abdominal pain, denies nausea, vomiting, bloody stools or diarrhea. + Bloating [] : Denies dysuria. [] Musculoskeletal: Denies back pain or joint pain. [] Integument: Denies rash. [] Neurologic: Denies headache, focal weakness or sensory changes. [] Endocrine: Denies polyuria or polydipsia. [] Lymphatic: Denies swollen glands. [] Psychiatric: Denies depression or anxiety. [] Heart Score: C/O Chest Pain: No Risk Factors: Risk Factors: DM, Current or recent (<one month) smoker, HTN, HLP, family history of CAD, obesity. Risk Scores: Score 0 - 3: 2.5% MACE over next 6 weeks - Discharge Home Score 4 - 6: 20.3% MACE over next 6 weeks - Admit for Clinical Observation Score 7 - 10: 72.7% MACE over next 6 weeks - Early Invasive Strategies Current Medications: Current Medications Medications (Trade) Dose Ordered Sig/Kel Start Time Stop Time Status Last Admin Dose Admin Fentanyl Citrate (Fentanyl 2ml Vial) 75 mcg 1X ONCE 01/23/21 14:15 01/23/21 14:17 DC 01/23/21 14:37 75 MCG Sodium Chloride 1,000 ml @ 1,000 mls/hr Q1H 01/23/21 14:15 01/23/21 15:14 DC 01/23/21 14:38 1,000 MLS/HR Allergies: Allergies: Allergies Coded Allergies Type Severity Reaction Last Updated Verified iron Allergy Severe Anaphylaxis 01/16/21 Yes Penicillins Allergy Intermediate LIGHT RASH CHILD 01/16/21 Yes Sulfa (Sulfonamide Antibiotics) Allergy Intermediate 01/16/21 Yes I S O L A T I O N *CONTACT* Allergy Unknown 11/17/20 Yes Physical Exam: PE: Constitutional: Well developed, well nourished, no acute distress, non-toxic appearance. [] HENT: Normocephalic, atraumatic, bilateral external ears normal, oropharynx moist, no oral exudates, nose normal. [] Eyes: PERRLA, EOMI, conjunctiva normal, no discharge. [] Neck: Normal range of motion, no tenderness, supple, no stridor. [] Cardiovascular:Heart rate regular rhythm, no murmur [] Lungs & Thorax: Bilateral breath sounds clear to auscultation [] Abdomen: Bowel sounds normal, soft, right upper and lower abdomen tenderness, no masses, no pulsatile masses. [] Skin: Warm, dry, no erythema, no rash. [] Back: No tenderness, no CVA tenderness. [] Extremities: No tenderness, no cyanosis, no clubbing, ROM intact, no edema. [] Neurologic: Alert and oriented X 3, normal motor function, normal sensory function, no focal deficits noted. [] Psychologic: Affect normal, judgement normal, mood normal. [] Current Patient Data: Labs: Laboratory Tests Test 01/23/21 14:30 White Blood Count 5.5 x10^3/uL (4.0-11.0) Red Blood Count 3.55 x10^6/uL (3.50-5.40) Hemoglobin 11.0 g/dL (12.0-15.5) L Hematocrit 32.1 % (36.0-47.0) L Mean Corpuscular Volume 90 fL (79-100) Mean Corpuscular Hemoglobin 31 pg (25-35) Mean Corpuscular Hemoglobin Concent 34 g/dL (31-37) Red Cell Distribution Width 16.2 % (11.5-14.5) H Platelet Count 152 x10^3/uL (140-400) Neutrophils (%) (Auto) 64 % (31-73) Lymphocytes (%) (Auto) 29 % (24-48) Monocytes (%) (Auto) 6 % (0-9) Eosinophils (%) (Auto) 2 % (0-3) Basophils (%) (Auto) 0 % (0-3) Neutrophils # (Auto) 3.5 x10^3/uL (1.8-7.7) Lymphocytes # (Auto) 1.6 x10^3/uL (1.0-4.8) Monocytes # (Auto) 0.3 x10^3/uL (0.0-1.1) Eosinophils # (Auto) 0.1 x10^3/uL (0.0-0.7) Basophils # (Auto) 0.0 x10^3/uL (0.0-0.2) Urine Collection Type Unknown Urine Color Yellow Urine Clarity Clear Urine pH 6.0 (<5.0-8.0) Urine Specific [place] 1.015 (1.000-1.030) Urine Protein Negative mg/dL (NEG-TRACE) Urine Glucose (UA) Negative mg/dL (NEG) Urine Ketones (Stick) Negative mg/dL (NEG) Urine Blood Small (NEG) Urine Nitrite Negative (NEG) Urine Bilirubin Negative (NEG) Urine Urobilinogen Dipstick 0.2 mg/dL (0.2 mg/dL) Urine Leukocyte Esterase Negative (NEG) Urine RBC 6-10 /HPF (0-2) Urine WBC 1-4 /HPF (0-4) Urine Squamous Epithelial Cells Few /LPF Urine Bacteria 0 /HPF (0-FEW) Urine Mucus Mod /LPF Urine Yeast Present /HPF Sodium Level 140 mmol/L (136-145) Potassium Level 4.0 mmol/L (3.5-5.1) Chloride Level 107 mmol/L (98-107) Carbon Dioxide Level 29 mmol/L (21-32) Anion Gap 4 (6-14) L Blood Urea Nitrogen 10 mg/dL (7-20) Creatinine 0.6 mg/dL (0.6-1.0) Estimated GFR (Cockcroft-Gault) 125.0 BUN/Creatinine Ratio 17 (6-20) Glucose Level 97 mg/dL (70-99) Calcium Level 8.5 mg/dL (8.5-10.1) Total Bilirubin 0.4 mg/dL (0.2-1.0) Aspartate Amino Transferase (AST) 22 U/L (15-37) Alanine Aminotransferase (ALT) 185 U/L (14-59) H Alkaline Phosphatase 207 U/L (46-116) H Total Protein 6.4 g/dL (6.4-8.2) Albumin 3.5 g/dL (3.4-5.0) Albumin/Globulin Ratio 1.2 (1.0-1.7) Lipase 95 U/L (73-393) Laboratory Tests 01/23/21 14:30 Laboratory Tests 01/23/21 14:30 Vital Signs: Vital Signs Date Time Temp Pulse Resp B/P (MAP) Pulse Ox O2 Delivery O2 Flow Rate FiO2 01/23/21 13:50 98.4 108 22 103/54 99 Room Air 98.4 EKG: EKG: [] Radiology/Procedures: Radiology/Procedures: [] Impression: [facility] [address] [place], [place] [id number] IMAGING REPORT Signed PATIENT: SUNITHA SCHULTZ ACCOUNT: [id number] : 2000 LOCATION: ER AGE: 20 SEX: F EXAM STATUS: PRE ER ORD. PHYSICIAN: KARTHIK GUPTA APRN REASON: abdominal pain, increased swelling, hx ascities PROCEDURE: ABDOMEN LTD INDICATION : Reason: abdominal pain, increased swelling, hx ascities / Spl. Instructions: / History: COMPARISON: January 16, 2021 TECHNIQUE: Multiple ultrasound images obtained through the abdomen in grayscale and color. FINDINGS: Pancreas: Partially obscured by overlying structures. No definite adjacent fluid collection at visualized portion. Liver: echogenic. Gallbladder: Removed IVC: Partially distended at level of liver. Common Bile Duct: Not dilated. Right Kidney: Largely obscured by overlying structures. IMPRESSION: * Echogenic liver which can be seen with fatty infiltration. * Significant ascites is not visualized. Some areas are obscured by bowel gas. Electronically signed by: Beverly Penn MD (01/23/2021 5:07 PM) [id number] DICTATED and SIGNED BY: BEVERLY PENN MD DATE: 01/23/21 [id number] Course & Med Decision Making: Course & Med Decision Making Pertinent Labs and Imaging studies reviewed. (See chart for details) See HPI. Alert and oriented x4. Ambulatory steady gait. Speaks in full clear sentences. Right side abdomen is tender but soft. Rest of abdomen is soft and nontender. I had ordered another CT abdomen pelvis for the patient but the radiologist called and asked me if it was needed due to to her having a lot of radiation. Dr. Perry is in the room doing an ultrasound on her abdomen to see if she can see any ascites. Ultrasound done was read by radiology with no real convincing fluid pockets. Patient has intractable abdominal pain. I spoke to Dr. Langston concerning this patient due to her complex history and recent surgery and now returning with intractable abdominal pain and fever. Patient to be admitted to the hospitalist. Her urine does not look to be infected. Other than her LFTs being elevated blood work is generally unremarkable. Dr. Langston gave no orders and stated he did not have any guidance for me at this time. I spoke to Dr. Melendez for admission. [] Pooja Disclaimer: Pooja Disclaimer: This electronic medical record was generated, in whole or in part, using a voice recognition dictation system. Departure Departure Impression: Primary Impression: Intractable abdominal pain Disposition: ADMITTED INPATIENT Condition: STABLE Referrals: [facility] (PCP) KARTHIK GUPTA APRN Jan 23, 2021 15:35
--- NOTE | 2021-01-23 17:09 | RAD ---
INDICATION : Reason: abdominal pain, increased swelling, hx ascities / Spl. Instructions: / History: COMPARISON: January 16, 2021 TECHNIQUE: Multiple ultrasound images obtained through the abdomen in grayscale and color. FINDINGS: Pancreas: Partially obscured by overlying structures. No definite adjacent fluid collection at visual ized portion. Liver: echogenic. Gallbladder: Removed IVC: Partially distended at level of liver. Common Bile Duct: Not dilated. Right Kidney: Largely obscured by overlying structures. IMPRESSION: * Echogenic liver which can be seen with fatty infiltration. * Significant ascites is not visualized. Some areas are obscured by bowel gas. Electronically signed by: Clifford Monzon MD (01/23/2021 5:07 PM) [id number]
[2021-01-23] MEDS: fentaNYL PF VIAL 100 MCG/2 ML VIAL IVP PRN ×2 (21:00→23:15)
[2021-01-23 23:00] VITALS: BP 111/57
--- NOTE | 2021-01-23 23:00 | NUR ---
The patient, SUNITHA SCHULTZ, 20 y/o, F admitted by JEFFERSON XAVIER MD, was given written information regarding hospital policies, unit procedures and contact persons. Valuables were checked and left with her.
[2021-01-24] MEDS: fentaNYL PF VIAL 100 MCG/2 ML VIAL IVP PRN ×8 (00:34→17:22)
[2021-01-24 03:00] VITALS: BP 106/56
[2021-01-24 07:00] VITALS: BP 107/54
[2021-01-24 11:00] VITALS: BP 105/63
--- NOTE | 2021-01-24 11:35 | PDOC1 ---
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 Schultz / a 20 old female who presented with sepsis, acute cystitis, transaminitis, history of chronic PEG with chronic PPN. Consultations placed to ID, GI, and general surgery. presented to ER LAST NIGHT with her with increased abdominal pain, fever of 100.5 01-22 but has been taking her hydrocodone with Tylenol in it, so no fever and abdominal swelling after being discharged January 21. Dr. Santana and her physician told her to come back here to see if she needs to have fluid drained off of her abdomen. hx Echogenic liver / fatty infiltration //small right- sided pneumothorax. november 2020 with G-port, proximal J-port and newest J-tube more distal.PAST attempts to feed into small bowel with pain and emesis, including tube feeding. /had pyloroplasty and failed this.prokinetics ineffective. Secondary GERD. TPN- dependent. Recent kidney infection at with Citrobacter and Stenotrophomonas Has history of DVT, hypertension, migraine, MRSA, ascites, gastroparesis, respiratory failure, sleep apnea, asthma. Chest to management per pulmonary, G-tube management per surgery, antibiotics per infectious disease Past Medical History Past Medical History Past Medical History Past Medical History: Asthma, DVT, GERD, Hypertension, Migraines, MRSA, Other Additional Past Medical Histor: GASTROPORESIS,RESP.FAILURESLEEP APNEA Past Surgical History: Other Additional Past Surgical Histo: X 2 J-TUBES,G-TUBE,RIGHT CHEST PORT Smoking Status: Never Smoker Alcohol Use: None severe gastroparesis, cyclic vomiting, and autonomic neuropathy. She has been fully TPN dependent for at least the last year. MEDICATIONS: Please see the medication reconciliation form. SOCIAL HISTORY: The patient lives with her parents. She does not smoke, take alcohol or any illicit drugs. FAMILY HISTORY: Reviewed in full and noncontributory to the present illness. Cardiovascular: HTN Pulmonary: No pertinent hx CENTRAL NERVOUS SYSTEM: Other GI: GERD, Other Heme/Onc: No pertinent hx Psych: Other Musculoskeletal: Other Rheumatologic: No pertinent hx Infectious disease: Other Renal/: UTI Endocrine: No pertinent hx Past Surgical History Past Surgical History: Other Family History Family History: Hypertension, Family History Unknown Social History Smoke: No ALCOHOL: none Drugs: None Current Problem List Problem List Problems Medical Problems: (1) Intractable abdominal pain Status: Acute Current Medications Current Medications Current Medications Sodium Chloride 1,000 ml @ 1,000 mls/hr Q1H IV Last administered on 01/23/21at 14:38; Start 01/23/21 at 14:15; Stop 01/23/21 at 15:14; Status DC Fentanyl Citrate (Fentanyl 2ml Vial) 75 mcg 1X ONCE IVP Last administered on 01/23/21at 14:37; Start 01/23/21 at 14:15; Stop 01/23/21 at 14:17; Status DC Fentanyl Citrate (Fentanyl 2ml Vial) 75 mcg 1X ONCE IVP Last administered on 01/23/21at 18:10; Start 01/23/21 at 17:45; Stop 01/23/21 at 17:46; Status DC Fentanyl Citrate (Fentanyl 2ml Vial) 50 mcg PRN Q1HR PRN IVP PAIN Last administered on 01/24/21at 08:51; Start 01/23/21 at 18:00; Stop 01/24/21 at 17:59 Active Scripts Active Ondansetron Hcl 4 Mg/2 Ml Vial (Ondansetron Hcl/Pf) 4 Mg/2 Ml Vial 4 Mg IVP PRN Q6HRS PRN 30 Days Bisacodyl 10 Mg Supp.rect 10 Mg LA PRN DAILY PRN 30 Days Reported Valproic Acid (Valproate Sodium) 500 Mg/10 Ml Solution 500 Mg JT BID Metoprolol Tartrate 75 Mg Tablet 25 Mg PO BID Transderm-Scop (Scopolamine) 1 Each Patch.td72 1 Patch TP Q3DAYS Levbid (Hyoscyamine Sulfate) 0.375 Mg Tab.er.12h 0.375 Mg JT BID Famotidine 40 Mg Tablet 40 Mg IV DAILY Spiriva (Tiotropium [place]) 18 Mcg Cap.w.dev 2 Inh IH BID Breo Ellipta 200-25 Mcg INH (Fluticasone/Vilanterol) 1 Each Blst.w.dev 1 Puff IH BID [Tpn Per Pharmacy] 1 Ea IV UD Hydrocodone-Apap 5-325 (Hydrocodone Bit/Acetaminophen) 1 Tab Tablet 1 Tab JT PRN Q6HRS PRN Tramadol HCl ER (Tramadol HCl) 100 Mg Cpbp.25.75 100 Mg JT BID Docusate Sodium 100 Mg Capsule 1 Cap PO DAILY 30 Days Ajovy Autoinjector (Fremanezumab-Vfrm) 225 Mg/1.5 Ml Auto.injct 225 Mg SQ QMONTH Tizanidine Hcl 2 Mg Capsule 2 Mg JT Q8HRS PRN Gabapentin 600 Mg Tablet 300 Mg JT TID Midodrine Hcl 5 Mg Tablet 5 Mg SL BID Milk Of Magnesia (Magnesium Hydroxide) 400 Mg/5 Ml Oral.susp 400 Mg JT PRN DAILY MDD 400mg Mirtazapine 30 Mg Tab.rapdis 45 Mg PO QHS 30 Days Olopatadine HCl 5 Ml Drops 0.1 % OP PRN DAILY PRN Vitamin D3 (Cholecalciferol (Vitamin D3)) 4,000 Unit Capsule 2,000 Unit JT HS Xyzal (Levocetirizine Dihydrochloride) 5 Mg Tablet 10 Mg GT BID Proair Hfa (Albuterol Sulfate) 8.5 Gm Hfa.aer.ad 2 Puff IH PRN Q4-6HRS PRN 21 Days Ipratropium [place] 30 Ml [place] 1 [place] NS BID Duoneb 0.5-3(2.5) Mg/3 Ml (Albuterol/Ipratropium) 3 Ml Ampul.neb 3 Ml NEB PRN QID PRN Montelukast Sodium Tablet (Montelukast Sodium) 10 Mg Tablet 10 Mg PO DAILY PRN Multi Vitamin Daily (Multivitamin) 1 Each Tablet 1 Each GT DAILY Allergies Allergies: Coded Allergies: iron (Verified Allergy, Severe, Anaphylaxis, 01/16/21) Penicillins (Verified Allergy, Intermediate, LIGHT RASH CHILD, 01/16/21) TOLERATES ZOSYN Sulfa (Sulfonamide Antibiotics) (Verified Allergy, Intermediate, 01/16/21) I S O L A T I O N *CONTACT* (Verified Allergy, Unknown, 11/17/20) mrsa ROS Review of System 14 pt ros otherwise neg General: YES: Chills, Fatigue PSYCHOLOGICAL ROS: YES: Anxiety; No: Behavioral Disorder, Concentration difficultie, Decreased libido, Depression, Disorientation, Hallucinations, Hostility, Irritablity, Memory difficulties, Mood Swings, Obsessive thoughts, Physical abuse, Sexual abuse, Sleep disturbances, Suicidal ideation, Other Eyes: No Blurry vision, No Decreased vision, No Double vision, No Dry eyes, No Excessive tearing, No Eye Pain, No Itchy Eyes, No Loss of vision, No Photophobia, No Scotomata, No Uses contacts, No Uses glasses, No Other HEENT: YES: Heacaches; No: Visual Changes, Hearing change, Nasal congestion, Nasal discharge, Oral lesions, Sinus pain, Sore Throat, Epistaxis, Sneezing, Snoring, Tinnitus, Vertigo, Vocal changes, Other ALLERGY AND IMMUNOLOGY: YES: Hives; No: Insect Bite Sensitivity, Itchy/Watery Eyes, Nasal Congestion, Post Nasal Drip, Seasonal Allergies, Other Hematological and Lymphatic: No: Bleeding Problems, Blood Clots, Blood Transfusions, Brusing, Night Sweats, Pallor, Swollen Lymph Nodes, Other ENDOCRINE: No: Breast Changes, Galactorrhea, Hair Pattern Changes, Hot Flashes, Malaise/lethargy, Mood Swings, Palpitations, Polydipsia/polyuria, Skin Changes, Temperature Intolerance, Unexpected Weight Changes, Other Breast: No New/Changing Breast Lumps, No Nipple changes, No Nipple discharge, No Other Respiratory: No: Cough, Hemoptysis, Orthopnea, Pleuritic Pain, Shortness of breath, SOB with excertion, Sputum Changes, Stridor, Tachypnea, Wheezing, Other Cardiovascular: No Chest Pain, No Palpitations, No Orthopnea, No Paroxysmal Noc. Dyspnea, No Edema, No Lt Headedness, No Other Gastrointestinal: Yes Nausea, Yes Abdominal Pain; No Vomiting, No Diarrhea, No Constipation, No Melena, No Hematochezia, No Other Genitourinary: No Dysuria, No Frequency, No Incontinence, No Hematuria, No Retention, No Discharge, No Urgency, No Pain, No Flank Pain, No Other, No , No , No , No , No , No , No Musculoskeletal: Yes Joint Stiffness; No Gait Disturbance, No Joint Pain, No Joint Swelling, No Muscle Pain, No Muscular Weakness, No Pain In:, No Swelling In:, No Other Neurological: No Behavorial Changes, No Bowel/Bladder ControlChng, No Confusion, No Dizziness, No Gait Disturbance, No Headaches, No Impaired Coord/balance, No Memory Loss, No Numbness/Tingling, No Seizures, No Speech Problems, No Tremors, No Visual Changes, No Weakness, No Other Skin: No Dry Skin, No Eczema, No Hair Changes, No Lumps, No Mole Changes, No Mottling, No Nail Changes, No Pruritus, No Rash, No Skin Lesion Changes, No Other, No Acne Physical Exam Physical Exam GENERAL: awake alert HEENT: Both pupils are round and react No conjunctival lesion, no thrush NECK: Supple, no JVP, no lymphadenopathy. LUNGS: decreased bs at bases, Rt CTS + HEART: S1, S2 regular. ABDOMEN: Diffusely tender, no rebound or guarding. Dressing in place not removed EXTREMITIES: No edema or cyanosis. SKIN: Unremarkable. NEUROLOGIC: A and O x 3 , no focal deficit Chest wall long-term line without signs of complication General: Alert, Oriented X3, Cooperative HEENT: EOMI, Mucous membr. moist/pink Lungs: Clear to auscultation, Normal air movement Heart: RRR Breasts: Not examined Rectal Exam: not examined PELVIC: Examination not indicated Extremities: No cyanosis Neuro: Normal speech, Cranial nerves 3-12 NL Psych/Mental Status: Mental status NL Vitals Vitals Vital Signs Date Time Temp Pulse Resp B/P (MAP) Pulse Ox O2 Delivery O2 Flow Rate FiO2 01/24/21 11:15 100 Room Air 01/24/21 07:00 98.0 73 16 107/54 (71) 98.0 Labs Labs Laboratory Tests Test 01/23/21 14:30 White Blood Count 5.5 x10^3/uL (4.0-11.0) Red Blood Count 3.55 x10^6/uL (3.50-5.40) Hemoglobin 11.0 g/dL (12.0-15.5) Hematocrit 32.1 % (36.0-47.0) Mean Corpuscular Volume 90 fL (79-100) Mean Corpuscular Hemoglobin 31 pg (25-35) Mean Corpuscular Hemoglobin Concent 34 g/dL (31-37) Red Cell Distribution Width 16.2 % (11.5-14.5) Platelet Count 152 x10^3/uL (140-400) Neutrophils (%) (Auto) 64 % (31-73) Lymphocytes (%) (Auto) 29 % (24-48) Monocytes (%) (Auto) 6 % (0-9) Eosinophils (%) (Auto) 2 % (0-3) Basophils (%) (Auto) 0 % (0-3) Neutrophils # (Auto) 3.5 x10^3/uL (1.8-7.7) Lymphocytes # (Auto) 1.6 x10^3/uL (1.0-4.8) Monocytes # (Auto) 0.3 x10^3/uL (0.0-1.1) Eosinophils # (Auto) 0.1 x10^3/uL (0.0-0.7) Basophils # (Auto) 0.0 x10^3/uL (0.0-0.2) Urine Collection Type Unknown Urine Color Yellow Urine Clarity Clear Urine pH 6.0 (<5.0-8.0) Urine Specific [place] 1.015 (1.000-1.030) Urine Protein Negative mg/dL (NEG-TRACE) Urine Glucose (UA) Negative mg/dL (NEG) Urine Ketones (Stick) Negative mg/dL (NEG) Urine Blood Small (NEG) Urine Nitrite Negative (NEG) Urine Bilirubin Negative (NEG) Urine Urobilinogen Dipstick 0.2 mg/dL (0.2 mg/dL) Urine Leukocyte Esterase Negative (NEG) Urine RBC 6-10 /HPF (0-2) Urine WBC 1-4 /HPF (0-4) Urine Squamous Epithelial Cells Few /LPF Urine Bacteria 0 /HPF (0-FEW) Urine Mucus Mod /LPF Urine Yeast Present /HPF Sodium Level 140 mmol/L (136-145) Potassium Level 4.0 mmol/L (3.5-5.1) Chloride Level 107 mmol/L (98-107) Carbon Dioxide Level 29 mmol/L (21-32) Anion Gap 4 (6-14) Blood Urea Nitrogen 10 mg/dL (7-20) Creatinine 0.6 mg/dL (0.6-1.0) Estimated GFR (Cockcroft-Gault) 125.0 BUN/Creatinine Ratio 17 (6-20) Glucose Level 97 mg/dL (70-99) Calcium Level 8.5 mg/dL (8.5-10.1) Total Bilirubin 0.4 mg/dL (0.2-1.0) Aspartate Amino Transf (AST/SGOT) 22 U/L (15-37) Alanine Aminotransferase (ALT/SGPT) 185 U/L (14-59) Alkaline Phosphatase 207 U/L (46-116) Total Protein 6.4 g/dL (6.4-8.2) Albumin 3.5 g/dL (3.4-5.0) Albumin/Globulin Ratio 1.2 (1.0-1.7) Lipase 95 U/L (73-393) Laboratory Tests Test 01/23/21 14:30 White Blood Count 5.5 x10^3/uL (4.0-11.0) Red Blood Count 3.55 x10^6/uL (3.50-5.40) Hemoglobin 11.0 g/dL (12.0-15.5) Hematocrit 32.1 % (36.0-47.0) Mean Corpuscular Volume 90 fL (79-100) Mean Corpuscular Hemoglobin 31 pg (25-35) Mean Corpuscular Hemoglobin Concent 34 g/dL (31-37) Red Cell Distribution Width 16.2 % (11.5-14.5) Platelet Count 152 x10^3/uL (140-400) Neutrophils (%) (Auto) 64 % (31-73) Lymphocytes (%) (Auto) 29 % (24-48) Monocytes (%) (Auto) 6 % (0-9) Eosinophils (%) (Auto) 2 % (0-3) Basophils (%) (Auto) 0 % (0-3) Neutrophils # (Auto) 3.5 x10^3/uL (1.8-7.7) Lymphocytes # (Auto) 1.6 x10^3/uL (1.0-4.8) Monocytes # (Auto) 0.3 x10^3/uL (0.0-1.1) Eosinophils # (Auto) 0.1 x10^3/uL (0.0-0.7) Basophils # (Auto) 0.0 x10^3/uL (0.0-0.2) Urine Collection Type Unknown Urine Color Yellow Urine Clarity Clear Urine pH 6.0 (<5.0-8.0) Urine Specific [place] 1.015 (1.000-1.030) Urine Protein Negative mg/dL (NEG-TRACE) Urine Glucose (UA) Negative mg/dL (NEG) Urine Ketones (Stick) Negative mg/dL (NEG) Urine Blood Small (NEG) Urine Nitrite Negative (NEG) Urine Bilirubin Negative (NEG) Urine Urobilinogen Dipstick 0.2 mg/dL (0.2 mg/dL) Urine Leukocyte Esterase Negative (NEG) Urine RBC 6-10 /HPF (0-2) Urine WBC 1-4 /HPF (0-4) Urine Squamous Epithelial Cells Few /LPF Urine Bacteria 0 /HPF (0-FEW) Urine Mucus Mod /LPF Urine Yeast Present /HPF Sodium Level 140 mmol/L (136-145) Potassium Level 4.0 mmol/L (3.5-5.1) Chloride Level 107 mmol/L (98-107) Carbon Dioxide Level 29 mmol/L (21-32) Anion Gap 4 (6-14) Blood Urea Nitrogen 10 mg/dL (7-20) Creatinine 0.6 mg/dL (0.6-1.0) Estimated GFR (Cockcroft-Gault) 125.0 BUN/Creatinine Ratio 17 (6-20) Glucose Level 97 mg/dL (70-99) Calcium Level 8.5 mg/dL (8.5-10.1) Total Bilirubin 0.4 mg/dL (0.2-1.0) Aspartate Amino Transf (AST/SGOT) 22 U/L (15-37) Alanine Aminotransferase (ALT/SGPT) 185 U/L (14-59) Alkaline Phosphatase 207 U/L (46-116) Total Protein 6.4 g/dL (6.4-8.2) Albumin 3.5 g/dL (3.4-5.0) Albumin/Globulin Ratio 1.2 (1.0-1.7) Lipase 95 U/L (73-393) Images Images PATIENT: SUNITHA SCHULTZ ACCOUNT: [id number] : 2000 LOCATION: [address] [place] [address] AGE: 20 SEX: F EXAM STATUS: ADM IN ORD. PHYSICIAN: ENDER BEACH MD REASON: abdominal pain, prior Jtube placement PROCEDURE: CT CHEST ABD PELVIS W/CONTRAST CT CHEST+ABD+PELVIS W dated 12/07/2020 1:39 PM Indication:Reason: abdominal pain, prior Jtube placement / Spl. Instructions: 75ML OMNI 300-RN WILL CALL WHEN READY / History: Comparison: CT 12/02/2020 Technique: CT images were obtained through the chest abdomen and pelvis using an infusion of 75 mL Omnipaque 300. No oral contrast was given. One or more of the following individualized dose reduction techniques were utilized for this examination: 1. Automated exposure control 2. Adjustment of the mA and/or kV according to patient size 3. Use of iterative reconstruction technique Findings: CT chest: There is a right side drainage catheter looped in the soft tissues just peripheral to the pleural space adjacent to the ribs. This is not seen on the prior exam. A pre-existing catheter is again shown more inferiorly apparently below the diaphragm and adjacent to the liver. Perihepatic collection appears reduced. Pleural effusion on the right is significantly reduced. There is a small amount of air in the pleural cavity.. There is some atelectasis adjacent to the effusion. No other significant pulmonary parenchymal abnormality is seen. The central airways appear normal. No enlarged lymph nodes are seen. CT abdomen pelvis: The liver and spleen are homogeneous in density and normal in configuration. Both kidneys enhance with contrast. No mass or obstruction is seen. The adrenal glands are not enlarged. The pancreas appears normal. No retroperitoneal or mesenteric adenopathy is seen. There is no apparent abdominal mass. A gastrostomy tube is again seen. There are 2 additional tubes in the midabdomen apparently representing enteric tubes. These have not changed appreciably in location. Soft tissue density in the right anterior abdominal wall has regressed. This may have been hemorrhage. No new intra-abdominal fluid collection is seen. There is no evidence of bowel obstruction. Images through the pelvis show no apparent abnormality of the distal ureters. The bladder has been decompressed by catheter, but otherwise appears normal. No pelvic or inguinal adenopathy is seen. There is no new pelvic mass. There may be a small amount of free fluid. No localized collection such as an abscess is seen. IMPRESSION: CT chest: Decreased perihepatic fluid. Decreased pleural effusion. A drainage tube present more superiorly and laterally at the right chest is not within the pleural space. There is a small right-sided pneumothorax. CT abdomen and pelvis: Decreased density in the anterior abdominal wall. No acute findings within the abdomen or pelvis. FOR INTERNAL CODING PURPOSES Critical result: Findings discussed with patient's nurse Martha at 12/07/2020 4:42 PM. RESULT CODE: (C) Electronically signed by: Jinny Chowdhury Jr., MD (12/07/2020 4:42 PM) [facility] DICTATED and SIGNED BY: JINNY CHOWDHURY Jr, MD DATE: 12/07/20 [id number] PATIENT: SUNITHA SCHULTZ ACCOUNT: [id number] : 2000 LOCATION: ER AGE: 20 SEX: F EXAM STATUS: PRE ER ORD. PHYSICIAN: TIFFANY HURT MD REASON: RUQ pain, OMNI 300 75 ML IV PROCEDURE: CT ABD PELV W/ IV CONTRST ONLY CT OF THE ABDOMEN AND PELVIS WITH IV CONTRAST. History: Reason: RUQ pain Comparison:December 19, 2020. Procedure: Contiguous axial images of the abdomen and pelvis were performed after the administration of 75 cc of Omni 300 IV contrast. Oral contrast: No. Findings: There is a gastric feeding tube as well as 2 J-tubes. The urinary bladder is partially collapsed around a suprapubic catheter. Apparent mild wall thickening is likely hypertrophy. Liver: Unremarkable Spleen: Unremarkable Pancreas: Unremarkable Adrenal Glands: Unremarkable Kidneys: Unremarkable There is no mass or lymphadenopathy. There is a trace of free fluid around the liver and in the pelvis. The appendix is not well seen. There is no free air. Impression: 1. Gastric feeding tube as well as 2J jejunostomy tubes. 2. Mild free fluid likely minimal ascites. End Impression PQRS Compliance Statement: One or more of the following individualized dose reduction techniques were utilized for this examination: 1. Automated exposure control 2. Adjustment of the mA and/or kV according to patient size 3. Use of iterative reconstruction technique Electronically signed by: Amy Jarrell III, MD (01/16/2021 10:22 PM) [facility] DICTATED and SIGNED BY: AMY JARRELL III, MD DATE: 01/16/21 [id number] PATIENT: SUNITHA SCHULTZ ACCOUNT: [id number] : 2000 LOCATION: ER AGE: 20 SEX: F EXAM STATUS: PRE ER ORD. PHYSICIAN: BAFUS,KARTHIK M JUKEBOX CHECKER REASON: abdominal pain, increased swelling, hx ascities PROCEDURE: ABDOMEN LTD INDICATION : Reason: abdominal pain, increased swelling, hx ascities / Spl. Instructions: / History: COMPARISON: January 16, 2021 TECHNIQUE: Multiple ultrasound images obtained through the abdomen in grayscale and color. FINDINGS: Pancreas: Partially obscured by overlying structures. No definite adjacent fluid collection at visualized portion. Liver: echogenic. Gallbladder: Removed IVC: Partially distended at level of liver. Common Bile Duct: Not dilated. Right Kidney: Largely obscured by overlying structures. IMPRESSION: * Echogenic liver which can be seen with fatty infiltration. * Significant ascites is not visualized. Some areas are obscured by bowel gas. Electronically signed by: Beverly Penn MD (01/23/2021 5:07 PM) [id number] DICTATED and SIGNED BY: BEVERLY PENN MD DATE: 01/23/21 [id number] PATIENT: SUNITHA SCHULTZ ACCOUNT: [id number] : 2000 LOCATION: CT AGE: 20 SEX: F EXAM STATUS: REG REF ORD. PHYSICIAN: GEORGES ROGEL MD REASON: PROCEDURE: CT ABD PELV W/ IV CONTRST ONLY CT of the abdomen and pelvis with contrast 12/19/2020 12:51 PM Indication: Reason: / Spl. Instructions: abd pain j-tube related pain / History: omni 300 75ml Comparison study: CT abdomen and pelvis with contrast December 07, 2020 Technique: Multidetector CT imaging of the abdomen and pelvis was performed following the administration of IV contrast. Findings: There is a small right hydropneumothorax. A small caliber chest tube is in place. The right upper quadrant, perihepatic drain remains in place, though the fluid collection is essentially no longer visualized. There is a percutaneous gastrostomy tube as well as a percutaneous jejunostomy tube in left lower quadrant. There is a second percutaneous jejunostomy tube in the right lower quadrant. No significant free fluid is seen in the abdomen or pelvis. There is a Carrillo catheter in the bladder. The gallbladder is surgically absent. Liver, spleen, adrenal glands, kidneys, and pancreas demonstrate no acute abnormality. Subcutaneous stranding and fluid in the right lower quadrant abdominal wall decreasing with respect to prior inpatient exams. IMPRESSION: 1. Resolution of perihepatic fluid collection. Drain remains in place. If there is no or minimal drain output, drain can likely be removed. Correlate with clinical findings. 2. Small right hydropneumothorax. A component of trapped lung may be present. 3. Gastrostomy tube into jejunostomy tubes remain in place CT DOSING PQRS STATEMENT: One or more of the following individualized dose reduction techniques were utilized for this examination: 1. Automated exposure control 2. Adjustment of the mA and/or kV according to patient size 3. Use of iterative reconstruction technique Electronically signed by: Flo Liz MD (12/19/2020 1:05 PM) [id number] DICTATED and SIGNED BY: FLO LIZ MD DATE: 12/19/20 [id number] VTE Prophylaxis Ordered VTE Prophylaxis Devices: Yes VTE Pharmacological Prophylaxi: Contraindicated Assessment/Plan Assessment/Plan IMPRESSION Self reported fever , afebrile here norlal wbc Recent kidney infection at with Citrobacter and Stenotrophomonas Postoperative jejunostomy tube placement 11/17/2020 -ex lap, abdominal washout J- tube placement. Severe malnutrition History of hypotension Idiopathic autonomic neuropathy Severe gastroparesis (seen at the [facility] and ) Cyclic vomiting syndrome GERD Pelvic floor dyssynergia (s/p therapy) s/p cholecystectomy. Right sided pleural effusion - s/p thoracentesis on 11/25/2020 Acute anemia - type and screen, 1u PRBC on 11/25/2020 and 1u PRBC on 11/27 no clear source of blood loss, likely fluid mobilization PLAN FEN - NPO, on TPN PPX - SCDs CODE - FULL Dispo - inpatient ID CONSULT GI CONSULT 74 min pt exam, chart review, > 50% of time spent with exam, chart review, pt care coordination GUARDED HALF-WAY PROGNOSIS Justifications for Admission Other Justification JEFFERSON XAVIER MD Jan 24, 2021 11:35
[2021-01-24] MEDS ORDERED: MONTELUKAST SODIUM 10 MG TABLET. PO PRN (12:00)
[2021-01-24] MEDS ORDERED: MAGNESIUM HYDROXIDE 2,400 MG/30 ML ORAL.SUSP. PEG PRN (12:00)
[2021-01-24] MEDS ORDERED: HYDROcodone/APAP 5/325MG 1 TAB TABLET PEG PRN (12:00)
[2021-01-24] MEDS ORDERED: ALBUTEROL SULFATE 2.5 MG/3 ML NEBU. CONT NEB PRN (12:00)
[2021-01-24] MEDS: IPRATRPIUM/ALBUTEROL 0.5/2.5MG 3 ML NEBU. NEB SCH ×4 (12:00→21:21)
[2021-01-24] MEDS ORDERED: IPRATRPIUM/ALBUTEROL 0.5/2.5MG 3 ML NEBU. NEB PRN (12:00)
[2021-01-24] MEDS ORDERED: BISACODYL 10 MG SUPP.RECT. PR PRN (12:00)
[2021-01-24] MEDS ORDERED: ALBUTEROL SULFATE 2.5 MG/3 ML NEBU. NEB PRN (12:22)
[2021-01-24] MEDS ORDERED: tiZANidine 4 MG TABLET. PEG PRN (12:30)
[2021-01-24] MEDS: MULTIVITAMINS,THERAPEUTIC 5 ML ORAL LIQUID. PEG SCH (12:43)
[2021-01-24] MEDS: VALPROIC ACID (AS SODIUM SALT) 250 MG/5 ML SOLUTION. PEG SCH ×2 (12:44→20:15)
[2021-01-24] MEDS: traMADol 50 MG TABLET PEG SCH ×2 (12:44→20:16)
[2021-01-24] MEDS: HYOSCYAMINE ER 0.375 MG TAB.ER.12H PO SCH ×2 (12:44→20:16)
[2021-01-24] MEDS: CETIRIZINE HCL 10 MG TABLET. PEG SCH (12:44)
[2021-01-24] MEDS: CHOLECALCIFEROL (VITAMIN D3) 1,000 UNIT TABLET PEG SCH (12:44)
[2021-01-24] MEDS: DOCUSATE 100 MG/10 ML SOLUTION. PEG SCH (12:44)
[2021-01-24] MEDS ORDERED: KETOTIFEN FUMARATE OPHTH SOLUTION BOTTLE. OU PRN (12:45)
[2021-01-24] MEDS: GABAPENTIN 250 MG/5 ML ORAL SOLUTION. PEG SCH ×2 (12:45→20:19)
[2021-01-24] MEDS: ONDANSETRON PF 4 MG/2 ML VIAL. IVP PRN ×2 (12:47→20:20)
--- NOTE | 2021-01-24 12:54 | PDOC2 ---
GI CONSULT Date of Service: DATE: 01/24/21 TIME: 12:38 Reason For Consult: Abdominal pain. HPI: HPI: 20 y/o female well-known to us. Presented to ER this occasion with "RUQ" pain and concern for reaccumulation of fluid. After last j-tube construction did develop leak at the site with fluid accumulation and briefly had RUQ drain for this, since removed. Current pain worse if lies on affected side and with movement. Long h/o GI issues including apparent idiopathic gastroparesis; long list of interventions for this, but currently with G-port, proximal J-port and newest J- tube more distal. In past, any attempt to feed into small bowel with pain and emesis, including tube feeding. Has had pyloroplasty and failed this. Intolerant to prokinetics or ineffective. Secondary GERD. Most recently TPN- dependent. No PUD, GB, pancreatic issues. Multiple EGD's; treated for H.pylori twice. Most recent issue has been elevated LFT's felt to be related to TPN. When seen at [facility] for this, fish oil-based lipids recommended. Currently receiving standard TPN when she gets it. Chronic constipation. Prior colonoscopy 2019 with a couple small adenomas. PMH: PMH: HTN, migraines, possible CVID. S/p tonsillectomy. FH: Family History: CVA, DM, Hypertension Social History: Smoke: No ALCOHOL: none Drugs: None ROS: GEN: Denies fevers, chills, sweats HEENT: Denies blurred vision, sore throat CV: Denies chest pain RESP: Denies shortness of air, cough GI: Per HPI : Denies hematuria, dysuria ENDO: Denies weight changes NEURO: Denies confusion, dizziness MSK: Denies weakness, joint pain/swelling SKIN: Denies jaundice, pruritus Vitals: Vitals: Vital Signs Date Time Temp Pulse Resp B/P (MAP) Pulse Ox O2 Delivery O2 Flow Rate FiO2 01/24/21 11:15 100 Room Air 01/24/21 07:00 98.0 73 16 107/54 (71) 98.0 Labs: Labs: Laboratory Tests Test 01/23/21 14:30 White Blood Count 5.5 x10^3/uL (4.0-11.0) Red Blood Count 3.55 x10^6/uL (3.50-5.40) Hemoglobin 11.0 g/dL (12.0-15.5) Hematocrit 32.1 % (36.0-47.0) Mean Corpuscular Volume 90 fL (79-100) Mean Corpuscular Hemoglobin 31 pg (25-35) Mean Corpuscular Hemoglobin Concent 34 g/dL (31-37) Red Cell Distribution Width 16.2 % (11.5-14.5) Platelet Count 152 x10^3/uL (140-400) Neutrophils (%) (Auto) 64 % (31-73) Lymphocytes (%) (Auto) 29 % (24-48) Monocytes (%) (Auto) 6 % (0-9) Eosinophils (%) (Auto) 2 % (0-3) Basophils (%) (Auto) 0 % (0-3) Neutrophils # (Auto) 3.5 x10^3/uL (1.8-7.7) Lymphocytes # (Auto) 1.6 x10^3/uL (1.0-4.8) Monocytes # (Auto) 0.3 x10^3/uL (0.0-1.1) Eosinophils # (Auto) 0.1 x10^3/uL (0.0-0.7) Basophils # (Auto) 0.0 x10^3/uL (0.0-0.2) Urine Collection Type Unknown Urine Color Yellow Urine Clarity Clear Urine pH 6.0 (<5.0-8.0) Urine Specific [place] 1.015 (1.000-1.030) Urine Protein Negative mg/dL (NEG-TRACE) Urine Glucose (UA) Negative mg/dL (NEG) Urine Ketones (Stick) Negative mg/dL (NEG) Urine Blood Small (NEG) Urine Nitrite Negative (NEG) Urine Bilirubin Negative (NEG) Urine Urobilinogen Dipstick 0.2 mg/dL (0.2 mg/dL) Urine Leukocyte Esterase Negative (NEG) Urine RBC 6-10 /HPF (0-2) Urine WBC 1-4 /HPF (0-4) Urine Squamous Epithelial Cells Few /LPF Urine Bacteria 0 /HPF (0-FEW) Urine Mucus Mod /LPF Urine Yeast Present /HPF Sodium Level 140 mmol/L (136-145) Potassium Level 4.0 mmol/L (3.5-5.1) Chloride Level 107 mmol/L (98-107) Carbon Dioxide Level 29 mmol/L (21-32) Anion Gap 4 (6-14) Blood Urea Nitrogen 10 mg/dL (7-20) Creatinine 0.6 mg/dL (0.6-1.0) Estimated GFR (Cockcroft-Gault) 125.0 BUN/Creatinine Ratio 17 (6-20) Glucose Level 97 mg/dL (70-99) Calcium Level 8.5 mg/dL (8.5-10.1) Total Bilirubin 0.4 mg/dL (0.2-1.0) Aspartate Amino Transf (AST/SGOT) 22 U/L (15-37) Alanine Aminotransferase (ALT/SGPT) 185 U/L (14-59) Alkaline Phosphatase 207 U/L (46-116) Total Protein 6.4 g/dL (6.4-8.2) Albumin 3.5 g/dL (3.4-5.0) Albumin/Globulin Ratio 1.2 (1.0-1.7) Lipase 95 U/L (73-393) Allergies: Coded Allergies: iron (Verified Allergy, Severe, Anaphylaxis, 01/16/21) Penicillins (Verified Allergy, Intermediate, LIGHT RASH CHILD, 01/16/21) TOLERATES ZOSYN Sulfa (Sulfonamide Antibiotics) (Verified Allergy, Intermediate, 01/16/21) I S O L A T I O N *CONTACT* (Verified Allergy, Unknown, 11/17/20) mrsa Medications: Current Medications Medications (Trade) Dose Ordered Sig/Kel Route PRN Reason Start Time Stop Time Status Last Admin Dose Admin Sodium Chloride 1,000 ml @ 1,000 mls/hr Q1H IV 01/23/21 14:15 01/23/21 15:14 DC 01/23/21 14:38 Fentanyl Citrate (Fentanyl 2ml Vial) 75 mcg 1X ONCE IVP 01/23/21 14:15 01/23/21 14:17 DC 01/23/21 14:37 Fentanyl Citrate (Fentanyl 2ml Vial) 75 mcg 1X ONCE IVP 01/23/21 17:45 01/23/21 17:46 DC 01/23/21 18:10 Fentanyl Citrate (Fentanyl 2ml Vial) 50 mcg PRN Q1HR PRN IVP PAIN 01/23/21 18:00 01/24/21 17:59 01/24/21 08:51 Imaging: Imaging: Sonogram w/o detectable ascites. PE: GEN: Appears uncomfortable. HEENT: Atraumatic, PERRLA LUNGS: CTAB HEART: RRR, no murmurs ABD: NABS, S/ND/NT, no masses. 3 tubes as mentioned above. What seems most tender in RUQ are ribs. EXTREMITY: No edema SKIN: No rashes, no jaundice NEURO/PSYCH: A & O 3 A/P: A/P: IMP: Current pain seems perhaps musculoskeletal; skeptical of major intra- abdominal issue. Gastroparesis. Most interventions unsuccessful. GERD Abnormal LFT's; may be related to TPN or various meds. Chronic constipation. H/o small adenomas. REC: Suggest heat, analgesia. Continue TPN, usual meds. Since some concern re: ionizing radiation exposure, could consider MRI abdomen. GEORGES DONNELLY MD Jan 24, 2021 12:54
[2021-01-24] MEDS ORDERED: FAMOTIDINE 20 MG/2 ML VIAL IVP SCH (13:00)
[2021-01-24] MEDS: TPN PER PHARMACY MC PRN (13:19)
--- NOTE | 2021-01-24 13:22 | NUR ---
Pharmacy TPN Dosing Note S: SUNITHA SCHULTZ is a 20 year old F Currently receiving Central Continuous TPN started [employer] B:Pertinent PMH: chronic TPN Current diet: CLEAR LIQUIDS LABS: Sodium: 140 Potassium: 4.0 Chloride: 107 Calcium: 8.5 Corrected Calcium: 8.90 Magnesium: CO2: SCr: 0.6 Glucose: 97 Albumin: 3.5 AST: 22 ALT: 185 TPN FORMULA: TPN TYPE: Central Continuous AMINO ACIDS: 60 gm DEXTROSE: 195 gm LIPIDS: 20 gm SODIUM CHLORIDE: 90 mEq SODIUM ACETATE: - mEq SODIUM PHOSPHATE: - mmol POTASSIUM CHLORIDE: 50 mEq POTASSIUM ACETATE: - mEq POTASSIUM PHOSPHATE: 13.6 mmol MAGNESIUM: 10 mEq CALCIUM: 10 mEq INSULIN: - units MULTIPLE VITAMIN: 5 ml TRACE ELEMENTS: 1 ml(s) TPN PLAN: 01/24 start standard TPN, labs in AM and will adjust as needed R: Begin TPN Will monitor electrolytes, glucose, and tolerance to TPN. SHAQUILLE LOWRY [facility], 01/24/21 [id number]
[2021-01-24 15:00] VITALS: BP 93/63
[2021-01-24] MEDS: MIDODRINE 5 MG TABLET PEG SCH (16:00)
--- NOTE | 2021-01-24 17:02 | PDOC ---
Infectious Disease Note Subjective Subjective pt is known to us, returned with abd pain. NO n/v/d/fever /sob/headache/urinary sy ROS ROS as above Vital Sign Vital Signs Vital Signs Date Time Temp Pulse Resp B/P (MAP) Pulse Ox O2 Delivery O2 Flow Rate FiO2 01/24/21 15:33 Room Air 01/24/21 15:00 97.6 81 16 93/63 (73) 98 97.6 Physical Exam PHYSICAL EXAM GENERAL: The patient is lying in bed, HEENT: Normocephalic, atraumatic. Anicteric. No thrush. NECK: Supple. LUNGS: Decreased breath sounds at the bases. No accessory muscle use. HEART: S1, S2 regular. CHEST: Right chest Rodas. ABDOMEN: Soft, nondistended. Bowel sounds present. Right-sided J-tube intact. Left-sided J-tube without skin changes, Jhonny-Musa button without skin changes. No masses felt. Diffuse tenderness throughout. EXTREMITIES: No edema, no cyanosis. DERMATOLOGIC: Warm, dry, no generalized rash. NEUROLOGIC: Alert, answers questions appropriatel Labs Lab normal wbc Objective Assessment 1. Recent Urinary tract infection. 2. Hematuria. 3. Urinary retention with chronic Carrillo, last changed per patient report at [facility] on 01/11. 4. History of recent vancomycin-resistant Enterococcus yeast in urine, 12/30. Carrillo was changed on 12/30, treated with daptomycin, which she completed 01/07. 5. Transaminitis, chronic, on total parenteral nutrition. 6. Chronic abdominal pain. 7. HISTORY OF SULFA AND PENICILLIN ALLERGY WITH NAUSEA, VOMITING AND RASH. The patient has tolerated Rocephin. 8 Chronic abd pain Plan Plan of Care no need for antibiotics pt can be d/c ed from ID stand point will s/o , please call if questions or condition changes ISAAC RODRIGUEZ MD Jan 24, 2021 17:02
[2021-01-24 19:42] VITALS: BP 102/56
[2021-01-24] MEDS: IPRATROPIUM BROMIDE 0.06% NASAL SPRAY 15ML BOTTLE. NS SCH (20:08)
[2021-01-24] MEDS ORDERED: MIRTAZAPINE 15 MG TABLET PEG SCH (21:00)
[2021-01-24] MEDS: BUDESONIDE 0.5 MG/2 ML NEBU. NEB SCH (21:21)
[2021-01-24] MEDS ORDERED: [UNRECOGNIZED DRUG - OTHER] IV SCH (22:00)
[2021-01-24] MEDS ORDERED: TOTAL PARENTERAL NUTRITION IV SCH (22:00)
[2021-01-24] MEDS ORDERED: AMINO ACID IV SCH (22:00)
[2021-01-24] MEDS ORDERED: DEXTROSE 70% IV SCH (22:00)
[2021-01-24 23:15] VITALS: BP 107/66
[2021-01-25 03:13] VITALS: BP 103/53
[2021-01-25] MEDS: IPRATRPIUM/ALBUTEROL 0.5/2.5MG 3 ML NEBU. NEB SCH ×2 (05:59→11:51)
[2021-01-25] MEDS: BUDESONIDE 0.5 MG/2 ML NEBU. NEB SCH (05:59)
[2021-01-25 07:00] VITALS: BP 99/59
[2021-01-25 07:10] LABS: CALCIUM 8.4 mg/dL (8.5-10.1); CREATININE 0.6 mg/dL (0.6-1.0); PHOSPHORUS 4.4 mg/dL (2.6-4.7); POTASSIUM 3.8 mmol/L (3.5-5.1)
[2021-01-25] MEDS: traMADol 50 MG TABLET PEG SCH (09:00)
[2021-01-25] MEDS: MULTIVITAMINS,THERAPEUTIC 5 ML ORAL LIQUID. PEG SCH (09:00)
[2021-01-25] MEDS: MIDODRINE 5 MG TABLET PEG SCH (09:00)
[2021-01-25] MEDS: DOCUSATE 100 MG/10 ML SOLUTION. PEG SCH (09:00)
[2021-01-25] MEDS: GABAPENTIN 250 MG/5 ML ORAL SOLUTION. PEG SCH ×2 (09:00→14:00)
[2021-01-25] MEDS: CHOLECALCIFEROL (VITAMIN D3) 1,000 UNIT TABLET PEG SCH (09:00)
[2021-01-25] MEDS: HYOSCYAMINE ER 0.375 MG TAB.ER.12H PO SCH (09:00)
[2021-01-25] MEDS: VALPROIC ACID (AS SODIUM SALT) 250 MG/5 ML SOLUTION. PEG SCH (09:00)
[2021-01-25] MEDS: CETIRIZINE HCL 10 MG TABLET. PEG SCH (09:00)
[2021-01-25] MEDS: IPRATROPIUM BROMIDE 0.06% NASAL SPRAY 15ML BOTTLE. NS SCH (09:00)
--- NOTE | 2021-01-25 10:03 | NUR ---
Nurse's note: The patient refused her medicines today. Sakina stated that she became nauseous and vomited after receiving her medicines via j-tube last night. The patient said that she hasn't tolerated food/medicines by mouth, j-tube or the gastric tube. Since she was admitted few months ago and underwent surgery, tube feeding has not been successful. Sakina is on TPN for months already. The RLQ abdominal pain has been an issue and she has been hospitalized again for pain control. Sakina told this nurse that she was admitted in this hospital for a month after placement of a new j-tube and had complicated stay. She was transferred to [facility] where she was inpatient for another month. When her acute problems resolved, she was discharged home with home health. Last week, she was admitted again for UTI and was sent home two days ago. However the pain was intolerable and she was advised by her PCP to go to the hospital. She has pain medicines available at home but unable to take them because of nausea and vomiting. Sakina said that Dr. Santana and her PCP discussed of giving her pain patch instead. She was scheduled to go to her pain doctor at last week but unable to do so.
[2021-01-25 11:00] VITALS: BP 99/62
--- NOTE | 2021-01-25 11:02 | PDOC ---
PROGRESS NOTES Date of Service: DATE: 01/25/21 TIME: 11:01 Chief Complaint Chief Complaint VTE Prophylaxis Ordered VTE Prophylaxis Devices: Yes VTE Pharmacological Prophylaxi: Contraindicated Assessment/Plan Assessment/Plan IMPRESSION Self reported fever , afebrile here norlal wbc Recent kidney infection at with Citrobacter and Stenotrophomonas Postoperative jejunostomy tube placement 11/17/2020 -ex lap, abdominal washout J- tube placement. Severe malnutrition History of hypotension Idiopathic autonomic neuropathy Severe gastroparesis (seen at the [facility] and ) Cyclic vomiting syndrome GERD Pelvic floor dyssynergia (s/p therapy) s/p cholecystectomy. Right sided pleural effusion - s/p thoracentesis on 11/25/2020 Acute anemia - type and screen, 1u PRBC on 11/25/2020 and 1u PRBC on 11/27 no clear source of blood loss, likely fluid mobilization Current pain seems perhaps musculoskeletal; skeptical of major intra-abdominal issue.// Gastroparesis. Most interventions unsuccessful. returned with abd pain. 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 Mustafa / a 20 old female who presented with sepsis, acute cystitis, transaminitis, history of chronic PEG with chronic PPN. Consultations placed to ID, GI, and general surgery. presented to ER LAST NIGHT with her with increased abdominal pain, fever of 100.5 01-22 but has been taking her hydrocodone with Tylenol in it, so no fever and abdominal swelling after being discharged January 21. Dr. Santana and her physician told her to come back here to see if she needs to have fluid drained off of her abdomen. hx Echogenic liver / fatty infiltration //small right- sided pneumothorax. november 2020 with G-port, proximal J-port and newest J-tube more distal.PAST attempts to feed into small bowel with pain and emesis, including tube feeding. /had pyloroplasty and failed this.prokinetics ineffective. Secondary GERD. TPN- dependent. Recent kidney infection at with Citrobacter and Stenotrophomonas Has history of DVT, hypertension, migraine, MRSA, ascites, gastroparesis, respiratory failure, sleep apnea, asthma. Chest to management per pulmonary, G-tube management per surgery, antibiotics per infectious disease Past Medical History Past Medical History Past Medical History Past Medical History: Asthma, DVT, GERD, Hypertension, Migraines, MRSA, Other Additional Past Medical Histor: GASTROPORESIS,RESP.FAILURESLEEP APNEA Past Surgical History: Other Additional Past Surgical Histo: X 2 J-TUBES,G-TUBE,RIGHT CHEST PORT Smoking Status: Never Smoker Alcohol Use: None severe gastroparesis, cyclic vomiting, and autonomic neuropathy. She has been fully TPN dependent for at least the last year. MEDICATIONS: Please see the medication reconciliation form. SOCIAL HISTORY: The patient lives with her parents. She does not smoke, take alcohol or any illicit drugs. FAMILY HISTORY: Reviewed in full and noncontributory to the present illness. Cardiovascular: HTN Pulmonary: No pertinent hx CENTRAL NERVOUS SYSTEM: Other GI: GERD, Other Heme/Onc: No pertinent hx Psych: Other Musculoskeletal: Other Rheumatologic: No pertinent hx Infectious disease: Other Renal/: UTI Endocrine: No pertinent hx Past Surgical History Past Surgical History: Other Family History Family History: Hypertension, Family History Unknown Social History Smoke: No ALCOHOL: none Drugs: None Current Problem List Problem List Problems Medical Problems: (1) Intractable abdominal pain Status: Acute Current Medications Current Medications Current Medications Sodium Chloride 1,000 ml @ 1,000 mls/hr Q1H IV Last administered on 01/23/21at 14:38; Start 01/23/21 at 14:15; Stop 01/23/21 at 15:14; Status DC Fentanyl Citrate (Fentanyl 2ml Vial) 75 mcg 1X ONCE IVP Last administered on 01/23/21at 14:37; Start 01/23/21 at 14:15; Stop 01/23/21 at 14:17; Status DC Fentanyl Citrate (Fentanyl 2ml Vial) 75 mcg 1X ONCE IVP Last administered on 01/23/21at 18:10; Start 01/23/21 at 17:45; Stop 01/23/21 at 17:46; Status DC Fentanyl Citrate (Fentanyl 2ml Vial) 50 mcg PRN Q1HR PRN IVP PAIN Last administered on 01/24/21at 08:51; Start 01/23/21 at 18:00; Stop 01/24/21 at 17:59 Active Scripts Active Ondansetron Hcl 4 Mg/2 Ml Vial (Ondansetron Hcl/Pf) 4 Mg/2 Ml Vial 4 Mg IVP PRN Q6HRS PRN 30 Days Bisacodyl 10 Mg Supp.rect 10 Mg NJ PRN DAILY PRN 30 Days Reported Valproic Acid (Valproate Sodium) 500 Mg/10 Ml Solution 500 Mg JT BID Metoprolol Tartrate 75 Mg Tablet 25 Mg PO BID Transderm-Scop (Scopolamine) 1 Each Patch.td72 1 Patch TP Q3DAYS Levbid (Hyoscyamine Sulfate) 0.375 Mg Tab.er.12h 0.375 Mg JT BID Famotidine 40 Mg Tablet 40 Mg IV DAILY Spiriva (Tiotropium [place]) 18 Mcg Cap.w.dev 2 Inh IH BID Breo Ellipta 200-25 Mcg INH (Fluticasone/Vilanterol) 1 Each Blst.w.dev 1 Puff IH BID [Tpn Per Pharmacy] 1 Ea IV UD Hydrocodone-Apap 5-325 (Hydrocodone Bit/Acetaminophen) 1 Tab Tablet 1 Tab JT PRN Q6HRS PRN Tramadol HCl ER (Tramadol HCl) 100 Mg Cpbp.25.75 100 Mg JT BID Docusate Sodium 100 Mg Capsule 1 Cap PO DAILY 30 Days Ajovy Autoinjector (Fremanezumab-Vfrm) 225 Mg/1.5 Ml Auto.injct 225 Mg SQ QMONTH Tizanidine Hcl 2 Mg Capsule 2 Mg JT Q8HRS PRN Gabapentin 600 Mg Tablet 300 Mg JT TID Midodrine Hcl 5 Mg Tablet 5 Mg SL BID Milk Of Magnesia (Magnesium Hydroxide) 400 Mg/5 Ml Oral.susp 400 Mg JT PRN DAILY MDD 400mg Mirtazapine 30 Mg Tab.rapdis 45 Mg PO QHS 30 Days Olopatadine HCl 5 Ml Drops 0.1 % OP PRN DAILY PRN Vitamin D3 (Cholecalciferol (Vitamin D3)) 4,000 Unit Capsule 2,000 Unit JT HS Xyzal (Levocetirizine Dihydrochloride) 5 Mg Tablet 10 Mg GT BID Proair Hfa (Albuterol Sulfate) 8.5 Gm Hfa.aer.ad 2 Puff IH PRN Q4-6HRS PRN 21 Days Ipratropium [place] 30 Ml [place] 1 [place] NS BID Duoneb 0.5-3(2.5) Mg/3 Ml (Albuterol/Ipratropium) 3 Ml Ampul.neb 3 Ml NEB PRN QID PRN Montelukast Sodium Tablet (Montelukast Sodium) 10 Mg Tablet 10 Mg PO DAILY PRN Multi Vitamin Daily (Multivitamin) 1 Each Tablet 1 Each GT DAILY Allergies Allergies: Coded Allergies: iron (Verified Allergy, Severe, Anaphylaxis, 01/16/21) Penicillins (Verified Allergy, Intermediate, LIGHT RASH CHILD, 01/16/21) TOLERATES ZOSYN Sulfa (Sulfonamide Antibiotics) (Verified Allergy, Intermediate, 01/16/21) I S O L A T I O N *CONTACT* (Verified Allergy, Unknown, 11/17/20) mrsa ROS Review of System 14 pt ros otherwise neg General: YES: Chills, Fatigue PSYCHOLOGICAL ROS: YES: Anxiety; No: Behavioral Disorder, Concentration difficultie, Decreased libido, Depression, Disorientation, Hallucinations, Hostility, Irritablity, Memory difficulties, Mood Swings, Obsessive thoughts, Physical abuse, Sexual abuse, Sleep disturbances, Suicidal ideation, Other Eyes: No Blurry vision, No Decreased vision, No Double vision, No Dry eyes, No Excessive tearing, No Eye Pain, No Itchy Eyes, No Loss of vision, No Photophobia, No Scotomata, No Uses contacts, No Uses glasses, No Other HEENT: YES: Heacaches; No: Visual Changes, Hearing change, Nasal congestion, Nasal discharge, Oral lesions, Sinus pain, Sore Throat, Epistaxis, Sneezing, Snoring, Tinnitus, Vertigo, Vocal changes, Other ALLERGY AND IMMUNOLOGY: YES: Hives; No: Insect Bite Sensitivity, Itchy/Watery Eyes, Nasal Congestion, Post Nasal Drip, Seasonal Allergies, Other Hematological and Lymphatic: No: Bleeding Problems, Blood Clots, Blood Transfusions, Brusing, Night Sweats, Pallor, Swollen Lymph Nodes, Other ENDOCRINE: No: Breast Changes, Galactorrhea, Hair Pattern Changes, Hot Flashes, Malaise/lethargy, Mood Swings, Palpitations, Polydipsia/polyuria, Skin Changes, Temperature Intolerance, Unexpected Weight Changes, Other Breast: No New/Changing Breast Lumps, No Nipple changes, No Nipple discharge, No Other Respiratory: No: Cough, Hemoptysis, Orthopnea, Pleuritic Pain, Shortness of breath, SOB with excertion, Sputum Changes, Stridor, Tachypnea, Wheezing, Other Cardiovascular: No Chest Pain, No Palpitations, No Orthopnea, No Paroxysmal Noc. Dyspnea, No Edema, No Lt Headedness, No Other Gastrointestinal: Yes Nausea, Yes Abdominal Pain; No Vomiting, No Diarrhea, No Constipation, No Melena, No Hematochezia, No Other Genitourinary: No Dysuria, No Frequency, No Incontinence, No Hematuria, No Retention, No Discharge, No Urgency, No Pain, No Flank Pain, No Other, No , No , No , No , No , No , No Musculoskeletal: Yes Joint Stiffness; No Gait Disturbance, No Joint Pain, No Joint Swelling, No Muscle Pain, No Muscular Weakness, No Pain In:, No Swelling In:, No Other Neurological: No Behavorial Changes, No Bowel/Bladder ControlChng, No Confusion, No Dizziness, No Gait Disturbance, No Headaches, No Impaired Coord/balance, No Memory Loss, No Numbness/Tingling, No Seizures, No Speech Problems, No Tremors, No Visual Changes, No Weakness, No Other Skin: No Dry Skin, No Eczema, No Hair Changes, No Lumps, No Mole Changes, No Mottling, No Nail Changes, No Vitals Vitals Vital Signs Date Time Temp Pulse Resp B/P (MAP) Pulse Ox O2 Delivery O2 Flow Rate FiO2 01/25/21 07:00 98.2 104 24 99/59 (72) 99 Room Air 98.2 Physical Exam Physical Exam GENERAL: The patient is lying in bed, HEENT: Normocephalic, atraumatic. Anicteric. No thrush. NECK: Supple. LUNGS: Decreased breath sounds at the bases. No accessory muscle use. HEART: S1, S2 regular. CHEST: Right chest Rodas. ABDOMEN: Soft, nondistended. Bowel sounds present. Right-sided J-tube intact. Left-sided J-tube without skin changes, Jhonny-Musa button without skin changes. No masses felt. Diffuse tenderness throughout. EXTREMITIES: No edema, no cyanosis. DERMATOLOGIC: Warm, dry, no generalized rash. NEUROLOGIC: Alert, answers questions appropriatel General: Alert, Oriented X3, Cooperative, No acute distress Heart: Regular rate, Normal S1, Normal S2 Lungs: Clear Abdomen: Soft, No tenderness, No masses Extremities: No clubbing, No cyanosis Labs LABS Laboratory Tests Test 01/25/21 06:40 Sodium Level 143 mmol/L (136-145) Potassium Level 3.8 mmol/L (3.5-5.1) Chloride Level 107 mmol/L (98-107) Carbon Dioxide Level 28 mmol/L (21-32) Anion Gap 8 (6-14) Blood Urea Nitrogen 5 mg/dL (7-20) Creatinine 0.6 mg/dL (0.6-1.0) Estimated GFR (Cockcroft-Gault) 125.0 Glucose Level 96 mg/dL (70-99) Calcium Level 8.4 mg/dL (8.5-10.1) Phosphorus Level 4.4 mg/dL (2.6-4.7) Magnesium Level 2.0 mg/dL (1.8-2.4) Assessment and Plan Assessmemt and Plan Problems Medical Problems: (1) Intractable abdominal pain Status: Acute Comment Review of Relevant I have reviewed the following items lalo (where applicable) has been applied. Labs Laboratory Tests Test 01/23/21 14:30 01/25/21 06:40 White Blood Count 5.5 x10^3/uL (4.0-11.0) Red Blood Count 3.55 x10^6/uL (3.50-5.40) Hemoglobin 11.0 g/dL (12.0-15.5) Hematocrit 32.1 % (36.0-47.0) Mean Corpuscular Volume 90 fL (79-100) Mean Corpuscular Hemoglobin 31 pg (25-35) Mean Corpuscular Hemoglobin Concent 34 g/dL (31-37) Red Cell Distribution Width 16.2 % (11.5-14.5) Platelet Count 152 x10^3/uL (140-400) Neutrophils (%) (Auto) 64 % (31-73) Lymphocytes (%) (Auto) 29 % (24-48) Monocytes (%) (Auto) 6 % (0-9) Eosinophils (%) (Auto) 2 % (0-3) Basophils (%) (Auto) 0 % (0-3) Neutrophils # (Auto) 3.5 x10^3/uL (1.8-7.7) Lymphocytes # (Auto) 1.6 x10^3/uL (1.0-4.8) Monocytes # (Auto) 0.3 x10^3/uL (0.0-1.1) Eosinophils # (Auto) 0.1 x10^3/uL (0.0-0.7) Basophils # (Auto) 0.0 x10^3/uL (0.0-0.2) Urine Collection Type Unknown Urine Color Yellow Urine Clarity Clear Urine pH 6.0 (<5.0-8.0) Urine Specific [place] 1.015 (1.000-1.030) Urine Protein Negative mg/dL (NEG-TRACE) Urine Glucose (UA) Negative mg/dL (NEG) Urine Ketones (Stick) Negative mg/dL (NEG) Urine Blood Small (NEG) Urine Nitrite Negative (NEG) Urine Bilirubin Negative (NEG) Urine Urobilinogen Dipstick 0.2 mg/dL (0.2 mg/dL) Urine Leukocyte Esterase Negative (NEG) Urine RBC 6-10 /HPF (0-2) Urine WBC 1-4 /HPF (0-4) Urine Squamous Epithelial Cells Few /LPF Urine Bacteria 0 /HPF (0-FEW) Urine Mucus Mod /LPF Urine Yeast Present /HPF Sodium Level 140 mmol/L (136-145) 143 mmol/L (136-145) Potassium Level 4.0 mmol/L (3.5-5.1) 3.8 mmol/L (3.5-5.1) Chloride Level 107 mmol/L (98-107) 107 mmol/L (98-107) Carbon Dioxide Level 29 mmol/L (21-32) 28 mmol/L (21-32) Anion Gap 4 (6-14) 8 (6-14) Blood Urea Nitrogen 10 mg/dL (7-20) 5 mg/dL (7-20) Creatinine 0.6 mg/dL (0.6-1.0) 0.6 mg/dL (0.6-1.0) Estimated GFR (Cockcroft-Gault) 125.0 125.0 BUN/Creatinine Ratio 17 (6-20) Glucose Level 97 mg/dL (70-99) 96 mg/dL (70-99) Calcium Level 8.5 mg/dL (8.5-10.1) 8.4 mg/dL (8.5-10.1) Total Bilirubin 0.4 mg/dL (0.2-1.0) Aspartate Amino Transf (AST/SGOT) 22 U/L (15-37) Alanine Aminotransferase (ALT/SGPT) 185 U/L (14-59) Alkaline Phosphatase 207 U/L (46-116) Total Protein 6.4 g/dL (6.4-8.2) Albumin 3.5 g/dL (3.4-5.0) Albumin/Globulin Ratio 1.2 (1.0-1.7) Lipase 95 U/L (73-393) Phosphorus Level 4.4 mg/dL (2.6-4.7) Magnesium Level 2.0 mg/dL (1.8-2.4) Laboratory Tests Test 01/25/21 06:40 Sodium Level 143 mmol/L (136-145) Potassium Level 3.8 mmol/L (3.5-5.1) Chloride Level 107 mmol/L (98-107) Carbon Dioxide Level 28 mmol/L (21-32) Anion Gap 8 (6-14) Blood Urea Nitrogen 5 mg/dL (7-20) Creatinine 0.6 mg/dL (0.6-1.0) Estimated GFR (Cockcroft-Gault) 125.0 Glucose Level 96 mg/dL (70-99) Calcium Level 8.4 mg/dL (8.5-10.1) Phosphorus Level 4.4 mg/dL (2.6-4.7) Magnesium Level 2.0 mg/dL (1.8-2.4) Medications Current Medications Sodium Chloride 1,000 ml @ 1,000 mls/hr Q1H IV Last administered on 01/23/21at 14:38; Start 01/23/21 at 14:15; Stop 01/23/21 at 15:14; Status DC Fentanyl Citrate (Fentanyl 2ml Vial) 75 mcg 1X ONCE IVP Last administered on 01/23/21at 14:37; Start 01/23/21 at 14:15; Stop 01/23/21 at 14:17; Status DC Fentanyl Citrate (Fentanyl 2ml Vial) 75 mcg 1X ONCE IVP Last administered on 01/23/21at 18:10; Start 01/23/21 at 17:45; Stop 01/23/21 at 17:46; Status DC Fentanyl Citrate (Fentanyl 2ml Vial) 50 mcg PRN Q1HR PRN IVP PAIN Last administered on 01/24/21at 17:22; Start 01/23/21 at 18:00; Stop 01/24/21 at 17:59; Status DC Albuterol Sulfate (Ventolin Neb Soln) 2.5 mg PRN Q4HRS PRN CONT NEB WHEEZING; Start 01/24/21 at 12:00; Stop 01/24/21 at 12:22; Status DC Bisacodyl (Dulcolax Supp) 10 mg PRN DAILY PRN NJ CONSTIPATION, 1sT CHOICE; Start 01/24/21 at 12:00 Docusate Sodium (Colace Solution) 100 mg DAILY PEG ; Start 01/24/21 at 13:00 Acetaminophen/ Hydrocodone Bitart (Lortab 5/325) 1 tab PRN Q6HRS PRN PEG PAIN Last administered on 01/25/21at 02:37; Start 01/24/21 at 12:00 Hyoscyamine (Levbid Er) 0.375 mg BID PO Last administered on 01/24/21at 20:16; Start 01/24/21 at 13:00 Albuterol/ Ipratropium (Duoneb) 3 ml PRN QID PRN NEB asthma; Start 01/24/21 at 12:00; Status UNV Magnesium Hydroxide (Milk Of Magnesia) 400 mg PRN DAILY PRN PEG CONSTIPATION; Start 01/24/21 at 12:00 Midodrine (Proamatine) 5 mg [id number] PEG ; Start 01/24/21 at 16:00 Montelukast Sodium (Singulair) 10 mg PRN DAILY PRN PO asthma; Start 01/24/21 at 12:00 Ondansetron HCl (Zofran) 4 mg PRN Q6HRS PRN IVP NAUSEA/VOMITING 1ST CHOICE Last administered on 01/24/21at 20:20; Start 01/24/21 at 12:00 Scopolamine (Transderm-Scop) 1 patch Q3DAYS TD ; Start 01/26/21 at 09:00 Vitamin D (Vitamin D3) 2,000 unit DAILY PEG ; Start 01/24/21 at 13:00 Famotidine (Pepcid Vial) 40 mg DAILY IVP Last administered on 01/24/21at 12:47; Start 01/24/21 at 13:00; Stop 01/24/21 at 13:08; Status DC Budesonide (Pulmicort) 0.5 mg RTBID NEB Last administered on 01/25/21at 05:59; Start 01/24/21 at 20:00 Gabapentin (Neurontin Oral Soln) 300 mg [id number] PEG Last administered on 01/24/21at 20:19; Start 01/24/21 at 14:00 Ipratropium [place] (Atrovent Nasal) 1 spray BID NS ; Start 01/24/21 at 21:00 Cetirizine HCl (ZyrTEC) 10 mg DAILY PEG ; Start 01/24/21 at 13:00 Mirtazapine (Remeron) 45 mg QHS PEG Last administered on 01/24/21at 20:16; Start 01/24/21 at 21:00 Multivitamins/ Minerals Therapeutic (Centrum Multivit-Mineral Liq) 5 ml DAILY PEG ; Start 01/24/21 at 13:00 Ketotifen Fumarate (Zaditor) 1 drop PRN DAILY PRN OU ALLERGIES; Start 01/24/21 at 12:45 Albuterol/ Ipratropium (Duoneb) 3 ml RTQID NEB Last administered on 01/25/21at 05:59; Start 01/24/21 at 12:00 Tizanidine HCl (Zanaflex) 2 mg PRN Q8HRS PRN PEG MUSCLE SPASMS Last administered on 01/24/21at 20:15; Start 01/24/21 at 12:30 Tramadol HCl (Ultram) 100 mg BID PEG Last administered on 01/24/21at 20:16; Start 01/24/21 at 13:00 Valproic Acid (Depakene) 500 mg BID PEG Last administered on 01/24/21at 20:15; Start 01/24/21 at 13:00 Albuterol Sulfate (Ventolin Neb Soln) 2.5 mg PRN Q4HRS PRN NEB WHEEZING; Start 01/24/21 at 12:22 Info (Tpn Per Pharmacy) 1 each PRN DAILY PRN MC SEE COMMENTS Last administered on 01/24/21at 13:19; Start 01/24/21 at 13:00 Sodium Chloride 90 meq/Potassium Chloride 50 meq/ Potassium Phosphate 13.6 mmol/Magnesium Sulfate 10 meq/ Calcium Gluconate 10 meq/ Multivitamins 5 ml/Zinc/Copper/ Manganese/ Selenium 1 ml/ Famotidine 40 mg/ Total Parenteral Nutrition/Amino Acids/Dextrose/ Fat Emulsion Intravenous 1,512 ml @ 63 mls/hr TPN CONT IV Last administered on 01/24/21at 20:19; Start 01/24/21 at 22:00; Stop 01/25/21 at 21:59 Active Scripts Active Ondansetron Hcl 4 Mg/2 Ml Vial (Ondansetron Hcl/Pf) 4 Mg/2 Ml Vial 4 Mg IVP PRN Q6HRS PRN 30 Days Bisacodyl 10 Mg Supp.rect 10 Mg [place] PRN DAILY PRN 30 Days Reported Valproic Acid (Valproate Sodium) 500 Mg/10 Ml Solution 500 Mg JT BID Metoprolol Tartrate 75 Mg Tablet 25 Mg PO BID Transderm-Scop (Scopolamine) 1 Each Patch.td72 1 Patch TP Q3DAYS Levbid (Hyoscyamine Sulfate) 0.375 Mg Tab.er.12h 0.375 Mg JT BID Famotidine 40 Mg Tablet 40 Mg IV DAILY Spiriva (Tiotropium [place]) 18 Mcg Cap.w.dev 2 Inh IH BID Breo Ellipta 200-25 Mcg INH (Fluticasone/Vilanterol) 1 Each Blst.w.dev 1 Puff IH BID [Tpn Per Pharmacy] 1 Ea IV UD Hydrocodone-Apap 5-325 (Hydrocodone Bit/Acetaminophen) 1 Tab Tablet 1 Tab JT PRN Q6HRS PRN Tramadol HCl ER (Tramadol HCl) 100 Mg Cpbp.25.75 100 Mg JT BID Docusate Sodium 100 Mg Capsule 1 Cap PO DAILY 30 Days Ajovy Autoinjector (Fremanezumab-Vfrm) 225 Mg/1.5 Ml Auto.injct 225 Mg SQ QMONTH Tizanidine Hcl 2 Mg Capsule 2 Mg JT Q8HRS PRN Gabapentin 600 Mg Tablet 300 Mg JT TID Midodrine Hcl 5 Mg Tablet 5 Mg SL BID Milk Of Magnesia (Magnesium Hydroxide) 400 Mg/5 Ml Oral.susp 400 Mg JT PRN DAILY MDD 400mg Mirtazapine 30 Mg Tab.rapdis 45 Mg PO QHS 30 Days Olopatadine HCl 5 Ml Drops 0.1 % OP PRN DAILY PRN Vitamin D3 (Cholecalciferol (Vitamin D3)) 4,000 Unit Capsule 2,000 Unit JT HS Xyzal (Levocetirizine Dihydrochloride) 5 Mg Tablet 10 Mg GT BID Proair Hfa (Albuterol Sulfate) 8.5 Gm Hfa.aer.ad 2 Puff IH PRN Q4-6HRS PRN 21 Days Ipratropium [place] 30 Ml [place] 1 [place] NS BID Duoneb 0.5-3(2.5) Mg/3 Ml (Albuterol/Ipratropium) 3 Ml Ampul.neb 3 Ml NEB PRN QID PRN Montelukast Sodium Tablet (Montelukast Sodium) 10 Mg Tablet 10 Mg PO DAILY PRN Multi Vitamin Daily (Multivitamin) 1 Each Tablet 1 Each GT DAILY Vitals/I & O Vital Sign - Last 24 Hours 01/24/21 01/24/21 01/24/21 01/24/21 11:15 12:47 14:00 15:00 Temp 97.6 97.6 Pulse 81 Resp 16 B/P (MAP) 93/63 (73) Pulse Ox 100 100 98 O2 Delivery Room Air Room Air Room Air Room Air 01/24/21 01/24/21 01/24/21 01/24/21 15:33 16:00 17:14 17:22 Pulse 81 B/P (MAP) 93/63 Pulse Ox 98 98 O2 Delivery Room Air Room Air Room Air 01/24/21 01/24/21 01/24/21 01/24/21 17:57 19:42 20:00 20:16 Temp 98.5 98.5 Pulse 72 Resp 20 18 B/P (MAP) 102/56 (71) Pulse Ox 98 100 100 O2 Delivery Room Air Room Air Room Air Room Air 01/24/21 01/24/21 01/24/21 01/25/21 20:46 21:22 23:15 03:08 Temp 97.4 97.4 Pulse 89 Resp 18 20 18 B/P (MAP) 107/66 (80) Pulse Ox 100 97 100 100 O2 Delivery Room Air Room Air Room Air Room Air 01/25/21 01/25/21 01/25/21 03:13 05:59 07:00 Temp 97.8 98.2 97.8 98.2 Pulse 69 104 Resp 18 24 B/P (MAP) 103/53 (70) 99/59 (72) Pulse Ox 97 97 99 O2 Delivery Room Air Room Air Room Air Intake and Output 01/24/21 01/24/21 01/25/21 15:00 23:00 07:00 Intake Total 100 ml Output Total 650 ml 800 ml Balance -550 ml -800 ml Justicifation of Admission Dx: Justifications for Admission: Justification of Admission Dx: Yes Sepsis: Bacteremia JEFFERSON XAVIER MD Jan 25, 2021 11:02
[2021-01-25] MEDS: TPN PER PHARMACY MC PRN (12:20)
--- NOTE | 2021-01-25 12:21 | NUR ---
Pharmacy TPN Dosing Note S: SUNITHA SCHULTZ is a 20 year old F Currently receiving Central Continuous TPN started [employer] B:Pertinent PMH: chronic TPN Current diet: CLEAR LIQUIDS LABS: Sodium: 143 Potassium: 3.8 Chloride: 107 Calcium: 8.4 Corrected Calcium: 8.80 Magnesium: 2.0 CO2: 28 SCr: 0.6 Glucose: 96 Albumin: 3.5 AST: 22 ALT: 185 TPN FORMULA: TPN TYPE: Central Continuous AMINO ACIDS: 60 gm DEXTROSE: 195 gm LIPIDS: 20 gm SODIUM CHLORIDE: 90 mEq SODIUM ACETATE: - mEq SODIUM PHOSPHATE: - mmol POTASSIUM CHLORIDE: 50 mEq POTASSIUM ACETATE: - mEq POTASSIUM PHOSPHATE: 13.6 mmol MAGNESIUM: 10 mEq CALCIUM: 10 mEq INSULIN: - units MULTIPLE VITAMIN: 5 ml TRACE ELEMENTS: 1 ml(s) TPN PLAN: 01/24 start standard TPN, labs in AM and will adjust as needed 01/25 CONT SAME TPN R: Continue TPN Will monitor electrolytes, glucose, and tolerance to TPN. SHAQUILLE LOWRY RP, 01/25/21 [id number]
--- NOTE | 2021-01-25 12:45 | PDOC3 ---
Discharge Summary Date of Admission: Jan 23, 2021 Date of Discharge: Jan 25, 2021 Follow-Up: 3-5 days Admitting Diagnosis comment: History of Present Illness History of Present Illness Ms. Mustafa / a 20 old female who presented with sepsis, acute cystitis, transami nitis, history of chronic PEG with chronic PPN. Consultations placed to ID, GI, and general surgery. presented to ER LAST NIGHT with her with increased abdominal pain, fever of 100.5 9-02 but has been taking her hydrocodone with Tylenol in it, so no fever and abdominal swelling after being discharged January 21. Dr. Santana and her physician told her to come back here to see if she needs to have fluid drained off of her abdomen. hx Echogenic liver / fatty infiltration //small right- sided pneumothorax. november 2020 with G-port, proximal J-port and newest J-tube more distal.PAST attempts to feed into small bowel with pain and emesis, including tube feeding. /had pyloroplasty and failed this.prokinetics ineffective. Secondary GERD. TPN- dependent. Recent kidney infection at with Citrobacter and Stenotrophomonas Has history of DVT, hypertension, migraine, MRSA, ascites, gastroparesis, respiratory failure, sleep apnea, asthma. Chest to management per pulmonary, G-tube management per surgery, antibiotics per infectious disease Assessment/Plan Assessment/Plan CONSULTS GI, ID COMPLICATIONS NONE D/C CONDITION GOOD PROGNOSIS GUARDED D/C MEDS SEE MAR PROCEDURES NONE COMPLICATIONS NONE DISCHARGE DX Self reported fever , afebrile here normal wbc Recent kidney infection at with Citrobacter and Stenotrophomonas Postoperative jejunostomy tube placement 11/17/2020 -ex lap, abdominal washout J- tube placement. Severe malnutrition History of hypotension Idiopathic autonomic neuropathy Severe gastroparesis (seen at the [facility] [place] and ) Cyclic vomiting syndrome GERD Pelvic floor dyssynergia (s/p therapy) s/p cholecystectomy. Right sided pleural effusion - s/p thoracentesis on 11/25/2020 Acute anemia - type and screen, 1u PRBC on 11/25/2020 and 1u PRBC on 11/27 no clear source of blood loss, likely fluid mobilization Current pain seems perhaps musculoskeletal; skeptical of major intra-abdominal issue.// Gastroparesis. Most interventions unsuccessful. returned with abd pain. 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 Severe malnutrition History of hypotension Idiopathic autonomic neuropathy Severe gastroparesis (seen at the [facility] [place] and ) Cyclic vomiting syndrome GERD Pelvic floor dyssynergia (s/p therapy) s/p cholecystectomy. Right sided pleural effusion - s/p thoracentesis on 11/25/2020 Acute anemia - type and screen, 1u PRBC on 11/25/2020 and 1u PRBC on 11/27 no clear source of blood loss, likely fluid mobilization Current pain seems perhaps musculoskeletal; skeptical of major intra-abdominal issue.// Gastroparesis. Most interventions unsuccessful. returned with abd pain. 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 Mustafa / a 20 old female who presented with sepsis, acute cystitis, transaminitis, history of chronic PEG with chronic PPN. Consultations placed to ID, GI, and general surgery. presented to ER LAST NIGHT with her with increased abdominal pain, fever of 100.5 9- but has been taking her hydrocodone with Tylenol in it, so no fever and abdominal swelling after being discharged January 21. Dr. Santana and her physician told her to come back here to see if she needs to have fluid drained off of her abdomen. hx Echogenic liver / fatty infiltration //small right- sided pneumothorax. november 2020 with G-port, proximal J-port and newest J-tube more distal.PAST attempts to feed into small bowel with pain and emesis, including tube feeding. /had pyloroplasty and failed this.prokinetics ineffective. Secondary GERD. TPN- dependent. Recent kidney infection at with Citrobacter and Stenotrophomonas Has history of DVT, hypertension, migraine, MRSA, ascites, gastroparesis, respiratory failure, sleep apnea, asthma. Chest to management per pulmonary, G-tube management per surgery, antibiotics per infectious disease Past Medical History Past Medical History Past Medical History Past Medical History: Asthma, DVT, GERD, Hypertension, Migraines, MRSA, Other Additional Past Medical Histor: GASTROPORESIS,RESP.FAILURESLEEP APNEA Past Surgical History: Other Additional Past Surgical Histo: X 2 J-TUBES,G-TUBE,RIGHT CHEST PORT Smoking Status: Never Smoker Alcohol Use: None severe gastroparesis, cyclic vomiting, and autonomic neuropathy. She has been fully TPN dependent for at least the last year. MEDICATIONS: Please see the medication reconciliation form. SOCIAL HISTORY: The patient lives with her parents. She does not smoke, take alcohol or any illicit drugs. FAMILY HISTORY: Reviewed in full and noncontributory to the present illness. Cardiovascular: HTN Pulmonary: No pertinent hx CENTRAL NERVOUS SYSTEM: Other GI: GERD, Other Heme/Onc: No pertinent hx Psych: Other Musculoskeletal: Other Rheumatologic: No pertinent hx Infectious disease: Other Renal/: UTI Endocrine: No pertinent hx Past Surgical History Past Surgical History: Other Family History Family History: Hypertension, Family History Unknown Social History Smoke: No ALCOHOL: none Drugs: None Current Problem List Problem List Problems Medical Problems: (1) Intractable abdominal pain Status: Acute Current Medications Current Medications Current Medications Sodium Chloride 1,000 ml @ 1,000 mls/hr Q1H IV Last administered on 01/23/21at 14:38; Start 01/23/21 at 14:15; Stop 01/23/21 at 15:14; Status DC Fentanyl Citrate (Fentanyl 2ml Vial) 75 mcg 1X ONCE IVP Last administered on 01/23/21at 14:37; Start 01/23/21 at 14:15; Stop 01/23/21 at 14:17; Status DC Fentanyl Citrate (Fentanyl 2ml Vial) 75 mcg 1X ONCE IVP Last administered on 01/23/21at 18:10; Start 01/23/21 at 17:45; Stop 01/23/21 at 17:46; Status DC Fentanyl Citrate (Fentanyl 2ml Vial) 50 mcg PRN Q1HR PRN IVP PAIN Last administered on 01/24/21at 08:51; Start 01/23/21 at 18:00; Stop 01/24/21 at 17:59 Active Scripts Active Ondansetron Hcl 4 Mg/2 Ml Vial (Ondansetron Hcl/Pf) 4 Mg/2 Ml Vial 4 Mg IVP PRN Q6HRS PRN 30 Days Bisacodyl 10 Mg Supp.rect 10 Mg GA PRN DAILY PRN 30 Days Reported Valproic Acid (Valproate Sodium) 500 Mg/10 Ml Solution 500 Mg JT BID Metoprolol Tartrate 75 Mg Tablet 25 Mg PO BID Transderm-Scop (Scopolamine) 1 Each Patch.td72 1 Patch TP Q3DAYS Levbid (Hyoscyamine Sulfate) 0.375 Mg Tab.er.12h 0.375 Mg JT BID Famotidine 40 Mg Tablet 40 Mg IV DAILY Spiriva (Tiotropium Euclid) 18 Mcg Cap.w.dev 2 Inh IH BID Breo Ellipta 200-25 Mcg INH (Fluticasone/Vilanterol) 1 Each Blst.w.dev 1 Puff IH BID [Tpn Per Pharmacy] 1 Ea IV UD Hydrocodone-Apap 5-325 (Hydrocodone Bit/Acetaminophen) 1 Tab Tablet 1 Tab JT PRN Q6HRS PRN Tramadol HCl ER (Tramadol HCl) 100 Mg Cpbp.25.75 100 Mg JT BID Docusate Sodium 100 Mg Capsule 1 Cap PO DAILY 30 Days Ajovy Autoinjector (Freosvaldoezumab-Vfrm) 225 Mg/1.5 Ml Auto.injct 225 Mg SQ QMONTH Tizanidine Hcl 2 Mg Capsule 2 Mg JT Q8HRS PRN Gabapentin 600 Mg Tablet 300 Mg JT TID Midodrine Hcl 5 Mg Tablet 5 Mg SL BID Milk Of Magnesia (Magnesium Hydroxide) 400 Mg/5 Ml Oral.susp 400 Mg JT PRN DAILY MDD 400mg Mirtazapine 30 Mg Tab.rapdis 45 Mg PO QHS 30 Days Olopatadine HCl 5 Ml Drops 0.1 % OP PRN DAILY PRN Vitamin D3 (Cholecalciferol (Vitamin D3)) 4,000 Unit Capsule 2,000 Unit JT HS Xyzal (Levocetirizine Dihydrochloride) 5 Mg Tablet 10 Mg GT BID Proair Hfa (Albuterol Sulfate) 8.5 Gm Hfa.aer.ad 2 Puff IH PRN Q4-6HRS PRN 21 Days Ipratropium Euclid 30 Ml Highland 1 Highland NS BID Duoneb 0.5-3(2.5) Mg/3 Ml (Albuterol/Ipratropium) 3 Ml Ampul.neb 3 Ml NEB PRN QID PRN Montelukast Sodium Tablet (Montelukast Sodium) 10 Mg Tablet 10 Mg PO DAILY PRN Multi Vitamin Daily (Multivitamin) 1 Each Tablet 1 Each GT DAILY Allergies Allergies: Coded Allergies: iron (Verified Allergy, Severe, Anaphylaxis, 01/16/21) Penicillins (Verified Allergy, Intermediate, LIGHT RASH CHILD, 01/16/21) TOLERATES ZOSYN Sulfa (Sulfonamide Antibiotics) (Verified Allergy, Intermediate, 01/16/21) I S O L A T I O N *CONTACT* (Verified Allergy, Unknown, 11/17/20) mrsa ROS Review of System 14 pt ros otherwise neg General: YES: Chills, Fatigue PSYCHOLOGICAL ROS: YES: Anxiety; No: Behavioral Disorder, Concentration difficultie, Decreased libido, Depression, Disorientation, Hallucinations, Hostility, Irritablity, Memory difficulties, Mood Swings, Obsessive thoughts, Physical abuse, Sexual abuse, Sleep disturbances, Suicidal ideation, Other Eyes: No Blurry vision, No Decreased vision, No Double vision, No Dry eyes, No Excessive tearing, No Eye Pain, No Itchy Eyes, No Loss of vision, No Photophobia, No Scotomata, No Uses contacts, No Uses glasses, No Other HEENT: YES: Heacaches; No: Visual Changes, Hearing change, Nasal congestion, Nasal discharge, Oral lesions, Sinus pain, Sore Throat, Epistaxis, Sneezing, Snoring, Tinnitus, Vertigo, Vocal changes, Other ALLERGY AND IMMUNOLOGY: YES: Hives; No: Insect Bite Sensitivity, Itchy/Watery Eyes, Nasal Congestion, Post Nasal Drip, Seasonal Allergies, Other Hematological and Lymphatic: No: Bleeding Problems, Blood Clots, Blood Transfusions, Brusing, Night Sweats, Pallor, Swollen Lymph Nodes, Other ENDOCRINE: No: Breast Changes, Galactorrhea, Hair Pattern Changes, Hot Flashes, Malaise/lethargy, Mood Swings, Palpitations, Polydipsia/polyuria, Skin Changes, Temperature Intolerance, Unexpected Weight Changes, Other Breast: No New/Changing Breast Lumps, No Nipple changes, No Nipple discharge, No Other Respiratory: No: Cough, Hemoptysis, Orthopnea, Pleuritic Pain, Shortness of breath, SOB with excertion, Sputum Changes, Stridor, Tachypnea, Wheezing, Other Cardiovascular: No Chest Pain, No Palpitations, No Orthopnea, No Paroxysmal Noc. Dyspnea, No Edema, No Lt Headedness, No Other Gastrointestinal: Yes Nausea, Yes Abdominal Pain; No Vomiting, No Diarrhea, No Constipation, No Melena, No Hematochezia, No Other Genitourinary: No Dysuria, No Frequency, No Incontinence, No Hematuria, No Retention, No Discharge, No Urgency, No Pain, No Flank Pain, No Other, No , No , No , No , No , No , No Musculoskeletal: Yes Joint Stiffness; No Gait Disturbance, No Joint Pain, No Joint Swelling, No Muscle Pain, No Muscular Weakness, No Pain In:, No Swelling In:, No Other Neurological: No Behavorial Changes, No Bowel/Bladder ControlChng, No Confusion, No Dizziness, No Gait Disturbance, No Headaches, No Impaired Coord/balance, No Memory Loss, No Numbness/Tingling, No Seizures, No Speech Problems, No Tremors, No Visual Changes, No Weakness, No Other Skin: No Dry Skin, No Eczema, No Hair Changes, No Lumps, No Mole Changes, No Mottling, No Nail Changes, No Vitals Vitals Vital Signs Date Time Temp Pulse Resp B/P (MAP) Pulse Ox O2 Delivery O2 Flow Rate FiO2 01/25/21 07:00 98.2 104 24 99/59 (72) 99 Room Air 98.2 Physical Exam Physical Exam GENERAL: The patient is lying in bed, HEENT: Normocephalic, atraumatic. Anicteric. No thrush. NECK: Supple. LUNGS: Decreased breath sounds at the bases. No accessory muscle use. HEART: S1, S2 regular. CHEST: Right chest Rodas. ABDOMEN: Soft, nondistended. Bowel sounds present. Right-sided J-tube intact. Left-sided J-tube without skin changes, Jhonny-Musa button without skin changes. No masses felt. Diffuse tenderness throughout. EXTREMITIES: No edema, no cyanosis. DERMATOLOGIC: Warm, dry, no generalized rash. NEUROLOGIC: Alert, answers questions appropriatel General: Alert, Oriented X3, Cooperative, No acute distress Heart: Regular rate, Normal S1, Normal S2 Lungs: Clear Abdomen: Soft, No tenderness, No masses Extremities: No clubbing, No cyanosis Labs Past Medical History Past Medical History Past Medical History Past Medical History: Asthma, DVT, GERD, Hypertension, Migraines, MRSA, Other Additional Past Medical Histor: GASTROPORESIS,RESP.FAILURESLEEP APNEA Past Surgical History: Other Additional Past Surgical Histo: X 2 J-TUBES,G-TUBE,RIGHT CHEST PORT Smoking Status: Never Smoker Alcohol Use: None severe gastroparesis, cyclic vomiting, and autonomic neuropathy. She has been fully TPN dependent for at least the last year. MEDICATIONS: Please see the medication reconciliation form. SOCIAL HISTORY: The patient lives with her parents. She does not smoke, take alcohol or any illicit drugs. FAMILY HISTORY: Reviewed in full and noncontributory to the present illness. Cardiovascular: HTN Pulmonary: No pertinent hx CENTRAL NERVOUS SYSTEM: Other GI: GERD, Other Heme/Onc: No pertinent hx Psych: Other Musculoskeletal: Other Rheumatologic: No pertinent hx Infectious disease: Other Renal/: UTI Endocrine: No pertinent hx Past Surgical History Past Surgical History: Other Family History Family History: Hypertension, Family History Unknown Social History Smoke: No ALCOHOL: none Drugs: None Current Problem List Problem List Problems Medical Problems: (1) Intractable abdominal pain Status: Acute Current Medications Current Medications Current Medications Sodium Chloride 1,000 ml @ 1,000 mls/hr Q1H IV Last administered on 01/23/21at 14:38; Start 01/23/21 at 14:15; Stop 01/23/21 at 15:14; Status DC Fentanyl Citrate (Fentanyl 2ml Vial) 75 mcg 1X ONCE IVP Last administered on 01/23/21at 14:37; Start 01/23/21 at 14:15; Stop 01/23/21 at 14:17; Status DC Fentanyl Citrate (Fentanyl 2ml Vial) 75 mcg 1X ONCE IVP Last administered on 01/23/21at 18:10; Start 01/23/21 at 17:45; Stop 01/23/21 at 17:46; Status DC Fentanyl Citrate (Fentanyl 2ml Vial) 50 mcg PRN Q1HR PRN IVP PAIN Last administered on 01/24/21at 08:51; Start 01/23/21 at 18:00; Stop 01/24/21 at 17:59 Active Scripts Active Ondansetron Hcl 4 Mg/2 Ml Vial (Ondansetron Hcl/Pf) 4 Mg/2 Ml Vial 4 Mg IVP PRN Q6HRS PRN 30 Days Bisacodyl 10 Mg Supp.rect 10 Mg GA PRN DAILY PRN 30 Days Reported Valproic Acid (Valproate Sodium) 500 Mg/10 Ml Solution 500 Mg JT BID Metoprolol Tartrate 75 Mg Tablet 25 Mg PO BID Transderm-Scop (Scopolamine) 1 Each Patch.td72 1 Patch TP Q3DAYS Levbid (Hyoscyamine Sulfate) 0.375 Mg Tab.er.12h 0.375 Mg JT BID Famotidine 40 Mg Tablet 40 Mg IV DAILY Spiriva (Tiotropium Euclid) 18 Mcg Cap.w.dev 2 Inh IH BID Breo Ellipta 200-25 Mcg INH (Fluticasone/Vilanterol) 1 Each Blst.w.dev 1 Puff IH BID [Tpn Per Pharmacy] 1 Ea IV UD Hydrocodone-Apap 5-325 (Hydrocodone Bit/Acetaminophen) 1 Tab Tablet 1 Tab JT PRN Q6HRS PRN Tramadol HCl ER (Tramadol HCl) 100 Mg Cpbp.25.75 100 Mg JT BID Docusate Sodium 100 Mg Capsule 1 Cap PO DAILY 30 Days Ajovy Autoinjector (Sueumab-Vfrm) 225 Mg/1.5 Ml Auto.injct 225 Mg SQ QMONTH Tizanidine Hcl 2 Mg Capsule 2 Mg JT Q8HRS PRN Gabapentin 600 Mg Tablet 300 Mg JT TID Midodrine Hcl 5 Mg Tablet 5 Mg SL BID Milk Of Magnesia (Magnesium Hydroxide) 400 Mg/5 Ml Oral.susp 400 Mg JT PRN DAILY MDD 400mg Mirtazapine 30 Mg Tab.rapdis 45 Mg PO QHS 30 Days Olopatadine HCl 5 Ml Drops 0.1 % OP PRN DAILY PRN Vitamin D3 (Cholecalciferol (Vitamin D3)) 4,000 Unit Capsule 2,000 Unit JT HS Xyzal (Levocetirizine Dihydrochloride) 5 Mg Tablet 10 Mg GT BID Proair Hfa (Albuterol Sulfate) 8.5 Gm Hfa.aer.ad 2 Puff IH PRN Q4-6HRS PRN 21 Days Ipratropium Euclid 30 Ml Highland 1 Highland NS BID Duoneb 0.5-3(2.5) Mg/3 Ml (Albuterol/Ipratropium) 3 Ml Ampul.neb 3 Ml NEB PRN QID PRN Montelukast Sodium Tablet (Montelukast Sodium) 10 Mg Tablet 10 Mg PO DAILY PRN Multi Vitamin Daily (Multivitamin) 1 Each Tablet 1 Each GT DAILY Allergies Allergies: Coded Allergies: iron (Verified Allergy, Severe, Anaphylaxis, 01/16/21) Penicillins (Verified Allergy, Intermediate, LIGHT RASH CHILD, 01/16/21) TOLERATES ZOSYN Sulfa (Sulfonamide Antibiotics) (Verified Allergy, Intermediate, 01/16/21) I S O L A T I O N *CONTACT* (Verified Allergy, Unknown, 11/17/20) mrsa ROS Review of System 14 pt ros otherwise neg General: YES: Chills, Fatigue PSYCHOLOGICAL ROS: YES: Anxiety; No: Behavioral Disorder, Concentration difficultie, Decreased libido, Depression, Disorientation, Hallucinations, Hostility, Irritablity, Memory difficulties, Mood Swings, Obsessive thoughts, Physical abuse, Sexual abuse, Sleep disturbances, Suicidal ideation, Other Eyes: No Blurry vision, No Decreased vision, No Double vision, No Dry eyes, No Excessive tearing, No Eye Pain, No Itchy Eyes, No Loss of vision, No Photophobia, No Scotomata, No Uses contacts, No Uses glasses, No Other HEENT: YES: Heacaches; No: Visual Changes, Hearing change, Nasal congestion, Nasal discharge, Oral lesions, Sinus pain, Sore Throat, Epistaxis, Sneezing, Snoring, Tinnitus, Vertigo, Vocal changes, Other ALLERGY AND IMMUNOLOGY: YES: Hives; No: Insect Bite Sensitivity, Itchy/Watery Eyes, Nasal Congestion, Post Nasal Drip, Seasonal Allergies, Other Hematological and Lymphatic: No: Bleeding Problems, Blood Clots, Blood Transfusions, Brusing, Night Sweats, Pallor, Swollen Lymph Nodes, Other ENDOCRINE: No: Breast Changes, Galactorrhea, Hair Pattern Changes, Hot Flashes, Malaise/lethargy, Mood Swings, Palpitations, Polydipsia/polyuria, Skin Changes, Temperature Intolerance, Unexpected Weight Changes, Other Breast: No New/Changing Breast Lumps, No Nipple changes, No Nipple discharge, No Other Respiratory: No: Cough, Hemoptysis, Orthopnea, Pleuritic Pain, Shortness of breath, SOB with excertion, Sputum Changes, Stridor, Tachypnea, Wheezing, Other Cardiovascular: No Chest Pain, No Palpitations, No Orthopnea, No Paroxysmal Noc. Dyspnea, No Edema, No Lt Headedness, No Other Gastrointestinal: Yes Nausea, Yes Abdominal Pain; No Vomiting, No Diarrhea, No Constipation, No Melena, No Hematochezia, No Other Genitourinary: No Dysuria, No Frequency, No Incontinence, No Hematuria, No Retention, No Discharge, No Urgency, No Pain, No Flank Pain, No Other, No , No , No , No , No , No , No Musculoskeletal: Yes Joint Stiffness; No Gait Disturbance, No Joint Pain, No Joint Swelling, No Muscle Pain, No Muscular Weakness, No Pain In:, No Swelling In:, No Other Neurological: No Behavorial Changes, No Bowel/Bladder ControlChng, No Confusion, No Dizziness, No Gait Disturbance, No Headaches, No Impaired Coord/balance, No Memory Loss, No Numbness/Tingling, No Seizures, No Speech Problems, No Tremors, No Visual Changes, No Weakness, No Other Skin: No Dry Skin, No Eczema, No Hair Changes, No Lumps, No Mole Changes, No Mottling, No Nail Changes, No Vitals Vitals Vital Signs Date Time Temp Pulse Resp B/P (MAP) Pulse Ox O2 Delivery O2 Flow Rate FiO2 01/25/21 07:00 98.2 104 24 99/59 (72) 99 Room Air 98.2 Physical Exam Physical Exam GENERAL: The patient is lying in bed, HEENT: Normocephalic, atraumatic. Anicteric. No thrush. NECK: Supple. LUNGS: Decreased breath sounds at the bases. No accessory muscle use. HEART: S1, S2 regular. CHEST: Right chest Rodas. ABDOMEN: Soft, nondistended. Bowel sounds present. Right-sided J-tube intact. Left-sided J-tube without skin changes, Jhonny-Musa button without skin changes. No masses felt. Diffuse tenderness throughout. EXTREMITIES: No edema, no cyanosis. DERMATOLOGIC: Warm, dry, no generalized rash. NEUROLOGIC: Alert, answers questions appropriatel General: Alert, Oriented X3, Cooperative, No acute distress Heart: Regular rate, Normal S1, Normal S2 Lungs: Clear Abdomen: Soft, No tenderness, No masses Extremities: No clubbing, No cyanosis Labs FINAL DIAGNOSIS Problems Medical Problems: (1) Intractable abdominal pain Status: Acute Brief Hospital Course Ms. Mustafa is a 20 old [sex] who presented with [ ] Discharge Medications Current Medications Sodium Chloride 1,000 ml @ 1,000 mls/hr Q1H IV Last administered on 01/23/21at 14:38; Start 01/23/21 at 14:15; Stop 01/23/21 at 15:14; Status DC Fentanyl Citrate (Fentanyl 2ml Vial) 75 mcg 1X ONCE IVP Last administered on 01/23/21at 14:37; Start 01/23/21 at 14:15; Stop 01/23/21 at 14:17; Status DC Fentanyl Citrate (Fentanyl 2ml Vial) 75 mcg 1X ONCE IVP Last administered on 01/23/21at 18:10; Start 01/23/21 at 17:45; Stop 01/23/21 at 17:46; Status DC Fentanyl Citrate (Fentanyl 2ml Vial) 50 mcg PRN Q1HR PRN IVP PAIN Last administered on 01/24/21at 17:22; Start 01/23/21 at 18:00; Stop 01/24/21 at 17:59; Status DC Albuterol Sulfate (Ventolin Neb Soln) 2.5 mg PRN Q4HRS PRN CONT NEB WHEEZING; Start 01/24/21 at 12:00; Stop 01/24/21 at 12:22; Status DC Bisacodyl (Dulcolax Supp) 10 mg PRN DAILY PRN GA CONSTIPATION, 1sT CHOICE; Start 01/24/21 at 12:00 Docusate Sodium (Colace Solution) 100 mg DAILY PEG ; Start 01/24/21 at 13:00 Acetaminophen/ Hydrocodone Bitart (Lortab 5/325) 1 tab PRN Q6HRS PRN PEG PAIN Last administered on 01/25/21at 02:37; Start 01/24/21 at 12:00 Hyoscyamine (Levbid Er) 0.375 mg BID PO Last administered on 01/24/21at 20:16; Start 01/24/21 at 13:00 Albuterol/ Ipratropium (Duoneb) 3 ml PRN QID PRN NEB asthma; Start 01/24/21 at 12:00; Status UNV Magnesium Hydroxide (Milk Of Magnesia) 400 mg PRN DAILY PRN PEG CONSTIPATION; Start 01/24/21 at 12:00 Midodrine (Proamatine) 5 mg [id number] PEG ; Start 01/24/21 at 16:00 Montelukast Sodium (Singulair) 10 mg PRN DAILY PRN PO asthma; Start 01/24/21 at 12:00 Ondansetron HCl (Zofran) 4 mg PRN Q6HRS PRN IVP NAUSEA/VOMITING 1ST CHOICE Last administered on 01/24/21at 20:20; Start 01/24/21 at 12:00 Scopolamine (Transderm-Scop) 1 patch Q3DAYS TD ; Start 01/26/21 at 09:00 Vitamin D (Vitamin D3) 2,000 unit DAILY PEG ; Start 01/24/21 at 13:00 Famotidine (Pepcid Vial) 40 mg DAILY IVP Last administered on 01/24/21at 12:47; Start 01/24/21 at 13:00; Stop 01/24/21 at 13:08; Status DC Budesonide (Pulmicort) 0.5 mg RTBID NEB Last administered on 01/25/21at 05:59; Start 01/24/21 at 20:00 Gabapentin (Neurontin Oral Soln) 300 mg [id number] PEG Last administered on 01/24/21at 20:19; Start 01/24/21 at 14:00 Ipratropium Euclid (Atrovent Nasal) 1 spray BID NS ; Start 01/24/21 at 21:00 Cetirizine HCl (ZyrTEC) 10 mg DAILY PEG ; Start 01/24/21 at 13:00 Mirtazapine (Remeron) 45 mg QHS PEG Last administered on 01/24/21at 20:16; Start 01/24/21 at 21:00 Multivitamins/ Minerals Therapeutic (Centrum Multivit-Mineral Liq) 5 ml DAILY PEG ; Start 01/24/21 at 13:00 Ketotifen Fumarate (Zaditor) 1 drop PRN DAILY PRN OU ALLERGIES; Start 01/24/21 at 12:45 Albuterol/ Ipratropium (Duoneb) 3 ml RTQID NEB Last administered on 01/25/21at 11:51; Start 01/24/21 at 12:00 Tizanidine HCl (Zanaflex) 2 mg PRN Q8HRS PRN PEG MUSCLE SPASMS Last administered on 01/24/21at 20:15; Start 01/24/21 at 12:30 Tramadol HCl (Ultram) 100 mg BID PEG Last administered on 01/24/21at 20:16; Start 01/24/21 at 13:00 Valproic Acid (Depakene) 500 mg BID PEG Last administered on 01/24/21at 20:15; Start 01/24/21 at 13:00 Albuterol Sulfate (Ventolin Neb Soln) 2.5 mg PRN Q4HRS PRN NEB WHEEZING; Start 01/24/21 at 12:22 Info (Tpn Per Pharmacy) 1 each PRN DAILY PRN MC SEE COMMENTS Last administered on 01/25/21at 12:20; Start 01/24/21 at 13:00 Sodium Chloride 90 meq/Potassium Chloride 50 meq/ Potassium Phosphate 13.6 mmol/Magnesium Sulfate 10 meq/ Calcium Gluconate 10 meq/ Multivitamins 5 ml/Zinc/Copper/ Manganese/ Selenium 1 ml/ Famotidine 40 mg/ Total Parenteral Nutrition/Amino Acids/Dextrose/ Fat Emulsion Intravenous 1,512 ml @ 63 mls/hr TPN CONT IV Last administered on 01/24/21at 20:19; Start 01/24/21 at 22:00; Stop 01/25/21 at 21:59 Sodium Chloride 90 meq/Potassium Chloride 50 meq/ Potassium Phosphate 13.6 mmol/Magnesium Sulfate 10 meq/ Calcium Gluconate 10 meq/ Multivitamins 5 ml/Zinc/Copper/ Manganese/ Selenium 1 ml/ Famotidine 40 mg/ Total Parenteral Nutrition/Amino Acids/Dextrose/ Fat Emulsion Intravenous 1,512 ml @ 63 mls/hr TPN CONT IV ; Start 01/25/21 at 22:00; Stop 01/26/21 at 21:59 Active Scripts Active Ondansetron Hcl 4 Mg/2 Ml Vial (Ondansetron Hcl/Pf) 4 Mg/2 Ml Vial 4 Mg IVP PRN Q6HRS PRN 30 Days Bisacodyl 10 Mg Supp.rect 10 Mg GA PRN DAILY PRN 30 Days Reported Valproic Acid (Valproate Sodium) 500 Mg/10 Ml Solution 500 Mg JT BID Metoprolol Tartrate 75 Mg Tablet 25 Mg PO BID Transderm-Scop (Scopolamine) 1 Each Patch.td72 1 Patch TP Q3DAYS Levbid (Hyoscyamine Sulfate) 0.375 Mg Tab.er.12h 0.375 Mg JT BID Famotidine 40 Mg Tablet 40 Mg IV DAILY Spiriva (Tiotropium [place]) 18 Mcg Cap.w.dev 2 Inh IH BID Breo Ellipta 200-25 Mcg INH (Fluticasone/Vilanterol) 1 Each Blst.w.dev 1 Puff IH BID [Tpn Per Pharmacy] 1 Ea IV UD Hydrocodone-Apap 5-325 (Hydrocodone Bit/Acetaminophen) 1 Tab Tablet 1 Tab JT PRN Q6HRS PRN Tramadol HCl ER (Tramadol HCl) 100 Mg Cpbp.25.75 100 Mg JT BID Docusate Sodium 100 Mg Capsule 1 Cap PO DAILY 30 Days Ajovy Autoinjector (Fremanezumab-Vfrm) 225 Mg/1.5 Ml Auto.injct 225 Mg SQ QMONTH Tizanidine Hcl 2 Mg Capsule 2 Mg JT Q8HRS PRN Gabapentin 600 Mg Tablet 300 Mg JT TID Midodrine Hcl 5 Mg Tablet 5 Mg SL BID Milk Of Magnesia (Magnesium Hydroxide) 400 Mg/5 Ml Oral.susp 400 Mg JT PRN DAILY MDD 400mg Mirtazapine 30 Mg Tab.rapdis 45 Mg PO QHS 30 Days Olopatadine HCl 5 Ml Drops 0.1 % OP PRN DAILY PRN Vitamin D3 (Cholecalciferol (Vitamin D3)) 4,000 Unit Capsule 2,000 Unit JT HS Xyzal (Levocetirizine Dihydrochloride) 5 Mg Tablet 10 Mg GT BID Proair Hfa (Albuterol Sulfate) 8.5 Gm Hfa.aer.ad 2 Puff IH PRN Q4-6HRS PRN 21 Days Ipratropium [place] 30 Ml [place] 1 [place] NS BID Duoneb 0.5-3(2.5) Mg/3 Ml (Albuterol/Ipratropium) 3 Ml Ampul.neb 3 Ml NEB PRN QID PRN Montelukast Sodium Tablet (Montelukast Sodium) 10 Mg Tablet 10 Mg PO DAILY PRN Multi Vitamin Daily (Multivitamin) 1 Each Tablet 1 Each GT DAILY Vital Signs Vital Signs Date Time Temp Pulse Resp B/P (MAP) Pulse Ox O2 Delivery O2 Flow Rate FiO2 01/25/21 11:53 99 Room Air 01/25/21 11:00 98.2 81 16 99/62 (74) 98.2 Labs Laboratory Tests Test 01/23/21 14:30 01/25/21 06:40 White Blood Count 5.5 x10^3/uL (4.0-11.0) Red Blood Count 3.55 x10^6/uL (3.50-5.40) Hemoglobin 11.0 g/dL (12.0-15.5) Hematocrit 32.1 % (36.0-47.0) Mean Corpuscular Volume 90 fL (79-100) Mean Corpuscular Hemoglobin 31 pg (25-35) Mean Corpuscular Hemoglobin Concent 34 g/dL (31-37) Red Cell Distribution Width 16.2 % (11.5-14.5) Platelet Count 152 x10^3/uL (140-400) Neutrophils (%) (Auto) 64 % (31-73) Lymphocytes (%) (Auto) 29 % (24-48) Monocytes (%) (Auto) 6 % (0-9) Eosinophils (%) (Auto) 2 % (0-3) Basophils (%) (Auto) 0 % (0-3) Neutrophils # (Auto) 3.5 x10^3/uL (1.8-7.7) Lymphocytes # (Auto) 1.6 x10^3/uL (1.0-4.8) Monocytes # (Auto) 0.3 x10^3/uL (0.0-1.1) Eosinophils # (Auto) 0.1 x10^3/uL (0.0-0.7) Basophils # (Auto) 0.0 x10^3/uL (0.0-0.2) Urine Collection Type Unknown Urine Color Yellow Urine Clarity Clear Urine pH 6.0 (<5.0-8.0) Urine Specific [place] 1.015 (1.000-1.030) Urine Protein Negative mg/dL (NEG-TRACE) Urine Glucose (UA) Negative mg/dL (NEG) Urine Ketones (Stick) Negative mg/dL (NEG) Urine Blood Small (NEG) Urine Nitrite Negative (NEG) Urine Bilirubin Negative (NEG) Urine Urobilinogen Dipstick 0.2 mg/dL (0.2 mg/dL) Urine Leukocyte Esterase Negative (NEG) Urine RBC 6-10 /HPF (0-2) Urine WBC 1-4 /HPF (0-4) Urine Squamous Epithelial Cells Few /LPF Urine Bacteria 0 /HPF (0-FEW) Urine Mucus Mod /LPF Urine Yeast Present /HPF Sodium Level 140 mmol/L (136-145) 143 mmol/L (136-145) Potassium Level 4.0 mmol/L (3.5-5.1) 3.8 mmol/L (3.5-5.1) Chloride Level 107 mmol/L (98-107) 107 mmol/L (98-107) Carbon Dioxide Level 29 mmol/L (21-32) 28 mmol/L (21-32) Anion Gap 4 (6-14) 8 (6-14) Blood Urea Nitrogen 10 mg/dL (7-20) 5 mg/dL (7-20) Creatinine 0.6 mg/dL (0.6-1.0) 0.6 mg/dL (0.6-1.0) Estimated GFR (Cockcroft-Gault) 125.0 125.0 BUN/Creatinine Ratio 17 (6-20) Glucose Level 97 mg/dL (70-99) 96 mg/dL (70-99) Calcium Level 8.5 mg/dL (8.5-10.1) 8.4 mg/dL (8.5-10.1) Total Bilirubin 0.4 mg/dL (0.2-1.0) Aspartate Amino Transf (AST/SGOT) 22 U/L (15-37) Alanine Aminotransferase (ALT/SGPT) 185 U/L (14-59) Alkaline Phosphatase 207 U/L (46-116) Total Protein 6.4 g/dL (6.4-8.2) Albumin 3.5 g/dL (3.4-5.0) Albumin/Globulin Ratio 1.2 (1.0-1.7) Lipase 95 U/L (73-393) Phosphorus Level 4.4 mg/dL (2.6-4.7) Magnesium Level 2.0 mg/dL (1.8-2.4) Laboratory Tests Test 01/25/21 06:40 Sodium Level 143 mmol/L (136-145) Potassium Level 3.8 mmol/L (3.5-5.1) Chloride Level 107 mmol/L (98-107) Carbon Dioxide Level 28 mmol/L (21-32) Anion Gap 8 (6-14) Blood Urea Nitrogen 5 mg/dL (7-20) Creatinine 0.6 mg/dL (0.6-1.0) Estimated GFR (Cockcroft-Gault) 125.0 Glucose Level 96 mg/dL (70-99) Calcium Level 8.4 mg/dL (8.5-10.1) Phosphorus Level 4.4 mg/dL (2.6-4.7) Magnesium Level 2.0 mg/dL (1.8-2.4) Allergies Allergies Coded Allergies Type Severity Reaction Last Updated Verified iron Allergy Severe Anaphylaxis 01/16/21 Yes Penicillins Allergy Intermediate LIGHT RASH CHILD 01/16/21 Yes Sulfa (Sulfonamide Antibiotics) Allergy Intermediate 01/16/21 Yes I S O L A T I O N *CONTACT* Allergy Unknown 11/17/20 Yes Justicifation of Admission Dx: Justifications for Admission: Justification of Admission Dx: Yes Sepsis: Bacteremia JEFFERSON XAVIER MD Jan 25, 2021 12:45
[2021-01-25] MEDS ORDERED: Tpn Per Pharmacy MC (12:47)
--- NOTE | 2021-01-25 12:49 | SNU/HH DC ---
DISCHARGE WITH HOME HEALTH DISCHARGE INFORMATION: Discharge Date: Jan 25, 2021 Final Diagnosis: Problems Medical Problems: (1) Intractable abdominal pain Status: Acute Condition on Discharge: Stable CODE STATUS: Code Status: Full HOME HEALTH: Face to Face: I certify this patient is under my care and that I, or a nurse practitioner or physician's clinical assistant working with me, had a face to face encounter that meets the physician face to face encounter requirements with this patient on []. Medical Complications: Other Retirement For: Admin/Educate Injections, Assess Cardiopulm Status, Assess & Educate Safety, Assess/Skilled Observatio, Enteral Feeding Care, IV Infusion Therapy, Medication Management RN For Eval/Treatment: Yes Physical Therapy For: Evalulation/Treatment Occupational Therapy For: Evaluation/Treatment Speech Language Pathology For: Evaluation/Treatment Home Health Aide For: Self-care TOWER EQUIPMENT INSTALLER For: Community Resources Pt Meets Homebound Status: Fatigue w/ amb., Limited distance walking, Psychological condition, Unable to negotiate home POST DISCHARGE ORDERS: Activity Instructions for Disc: Activity as tolerated Weight Bearing Status after Di: No restrictions Bathing Instructions: Shower-keep dressing dry DIET AFTER DISCHARGE: Cardiac Wound/Incision Care: Keep wound/cast CDI CHECKS AFTER DISCHARGE: Checks after discharge: Check blood press - daily, Check your Temp as needed FOLLOW-UP: PCP to follow Home Health: see your pcp in 3-10 days TREATMENT/EQUIPMENT ORDERS: Adaptive Equipment Issued: None CERTIFICATION STATEMENT: Certification Statement: Certification Statement: Based on the above finding, I certify that this patient is confined to the home and needs intermittent halfway care, physical t herapy and/or speech therapy, or continues to need occupational therapy.~ This patient is under my care, and I have initiated the establishment of the plan of care.~ This patient will be followed by myself or a community physician who will periodically review the plan of care. Home Meds Active Scripts [Tpn Per Pharmacy] 1 EACH EACH No Conflict Check, 1 EACH MC PRN DAILY PRN for SEE COMMENTS for 30 Days, #60 Prov:JEFFERSON XAVIER MD 01/25/21 Ondansetron Hcl/Pf (ONDANSETRON HCL 4 MG/2 ML VIAL) 4 Mg/2 Ml Vial, 4 MG IVP PRN Q6HRS PRN for NAUSEA/VOMITING 1ST CHOICE for 30 Days, #90 EACH Prov:JEFFERSON XAVIER MD 11/30/19 Bisacodyl (BISACODYL) 10 Mg Supp.rect, 10 MG NV PRN DAILY PRN for CONSTIPATION, 1sT CHOICE for 30 Days, #30 SUPP.RECT Prov:JEFFERSON XAVIER MD 11/30/19 Reported Medications Valproate Sodium (VALPROIC ACID) 500 Mg/10 Ml Solution, 500 MG JT BID for TREMORS/SHAKING, MISC 11/14/20 Metoprolol Tartrate (Metoprolol Tartrate) 75 Mg Tablet, 25 MG PO BID for HEADACHES, TAB 11/14/20 Scopolamine (TRANSDERM-SCOP) 1 Each Patch.td72, 1 PATCH TP Q3DAYS for CONTROL NAUSEA, #4 PATCH 11/14/20 Hyoscyamine Sulfate (LEVBID) 0.375 Mg Tab.er.12h, 0.375 MG JT BID for REFLUX, TAB.SR 11/14/20 Famotidine (FAMOTIDINE) 40 Mg Tablet, 40 MG IV DAILY for REFLUX, TAB 11/14/20 Tiotropium [place] (SPIRIVA) 18 Mcg Cap.w.dev, 2 INH IH BID for ASTHMA, #1 INH 0 Refills 11/14/20 Fluticasone/Vilanterol (Breo Ellipta 200-25 Mcg INH) 1 Each Blst.w.dev, 1 PUFF IH BID for ASTHMA, EACH 11/14/20 [Tpn Per Pharmacy] No Conflict Check, 1 EA IV UD for ALTERED NUTRITION STATUS 11/14/20 Hydrocodone Bit/Acetaminophen (HYDROCODONE-APAP 5-325 ) 1 Tab Tablet, 1 TAB JT PRN Q6HRS PRN for PAIN, TAB 0 Refills 11/14/20 Tramadol HCl (Tramadol HCl ER) 100 Mg Cpbp.25.75, 100 MG JT BID for pain, EACH 06/25/20 Docusate Sodium (DOCUSATE SODIUM) 100 Mg Capsule, 1 CAP PO DAILY for constipation for 30 Days, #30 CAP 0 Refills 06/25/20 Fremanezumab-Vfrm (Ajovy Autoinjector) 225 Mg/1.5 Ml Auto.injct, 225 MG SQ QMONTH for migraine, SYR 05/23/20 Tizanidine Hcl (TIZANIDINE HCL) 2 Mg Capsule, 2 MG JT Q8HRS PRN for MUSCLE SPASMS, CAP 1/1/21 Gabapentin (GABAPENTIN) 600 Mg Tablet, 300 MG JT TID for NEUROGENIC PAIN, TAB 05/21/20 Midodrine Hcl (MIDODRINE HCL) 5 Mg Tablet, 5 MG SL BID for Ortho Hypo, TAB 05/21/20 Magnesium Hydroxide (MILK OF MAGNESIA) 400 Mg/5 Ml Oral.susp, 400 MG JT PRN DAILY for constipation MDD 400mg, MISC 02/20/20 Mirtazapine (MIRTAZAPINE) 30 Mg Tab.rapdis, 45 MG PO QHS for depression for 30 Days, #45 TAB 0 Refills 02/20/20 Olopatadine HCl (Olopatadine HCl) 5 Ml Drops, 0.1 % OP PRN DAILY PRN for eye relief, DROP 08/20/19 Cholecalciferol (Vitamin D3) (VITAMIN D3) 4,000 Unit Capsule, 2000 UNIT JT HS for supplement, CAP 08/20/19 Levocetirizine Dihydrochloride (XYZAL) 5 Mg Tablet, 10 MG GT BID for allergies, TAB 08/20/19 Albuterol Sulfate (Proair Hfa) 8.5 Gm Hfa.aer.ad, 2 PUFF IH PRN Q4-6HRS PRN for wheezing for 21 Days, #1 INHALER 0 Refills 08/20/19 Ipratropium [place] (IPRATROPIUM BROMIDE) 30 Ml [place], 1 SPRAY NS BID for allergies, SPRAY 08/20/19 Ipratropium/Albuterol Sulfate (DUONEB 0.5-3(2.5) MG/3 ML) 3 Ml Ampul.neb, 3 ML NEB PRN QID PRN for asthma, EACH 08/20/19 Montelukast Sodium (MONTELUKAST SODIUM TABLET ) 10 Mg Tablet, 10 MG PO DAILY PRN for asthma, TAB 0 Refills 08/20/19 Multivitamin (MULTI VITAMIN DAILY) 1 Each Tablet, 1 EACH GT DAILY for supple ment, TAB 08/20/19 Discontinued Scripts Meropenem (MEROPENEM) 500 Mg Vial, 500 MG IV Q6HRS for INTRAABDOMINAL INFECTION for 60 Days, #240 EACH Prov:ABIGAIL BRIZUELA MD 12/09/20 JEFFERSON XAVIER MD Jan 25, 2021 12:49
--- NOTE | 2021-01-25 12:49 | PDOC ---
G I PROGRESS NOTE Subjective Hunched over in bed. Says pain same. Physical Exam Lungs clear. RRR Abdomen with chronic diffuse tenderness. RUQ findings still seem centered on a rib. Review of Relevant I have reviewed the following items lalo (where applicable) has been applied. Labs Laboratory Tests Test 01/23/21 14:30 01/25/21 06:40 White Blood Count 5.5 x10^3/uL (4.0-11.0) Red Blood Count 3.55 x10^6/uL (3.50-5.40) Hemoglobin 11.0 g/dL (12.0-15.5) Hematocrit 32.1 % (36.0-47.0) Mean Corpuscular Volume 90 fL (79-100) Mean Corpuscular Hemoglobin 31 pg (25-35) Mean Corpuscular Hemoglobin Concent 34 g/dL (31-37) Red Cell Distribution Width 16.2 % (11.5-14.5) Platelet Count 152 x10^3/uL (140-400) Neutrophils (%) (Auto) 64 % (31-73) Lymphocytes (%) (Auto) 29 % (24-48) Monocytes (%) (Auto) 6 % (0-9) Eosinophils (%) (Auto) 2 % (0-3) Basophils (%) (Auto) 0 % (0-3) Neutrophils # (Auto) 3.5 x10^3/uL (1.8-7.7) Lymphocytes # (Auto) 1.6 x10^3/uL (1.0-4.8) Monocytes # (Auto) 0.3 x10^3/uL (0.0-1.1) Eosinophils # (Auto) 0.1 x10^3/uL (0.0-0.7) Basophils # (Auto) 0.0 x10^3/uL (0.0-0.2) Urine Collection Type Unknown Urine Color Yellow Urine Clarity Clear Urine pH 6.0 (<5.0-8.0) Urine Specific [place] 1.015 (1.000-1.030) Urine Protein Negative mg/dL (NEG-TRACE) Urine Glucose (UA) Negative mg/dL (NEG) Urine Ketones (Stick) Negative mg/dL (NEG) Urine Blood Small (NEG) Urine Nitrite Negative (NEG) Urine Bilirubin Negative (NEG) Urine Urobilinogen Dipstick 0.2 mg/dL (0.2 mg/dL) Urine Leukocyte Esterase Negative (NEG) Urine RBC 6-10 /HPF (0-2) Urine WBC 1-4 /HPF (0-4) Urine Squamous Epithelial Cells Few /LPF Urine Bacteria 0 /HPF (0-FEW) Urine Mucus Mod /LPF Urine Yeast Present /HPF Sodium Level 140 mmol/L (136-145) 143 mmol/L (136-145) Potassium Level 4.0 mmol/L (3.5-5.1) 3.8 mmol/L (3.5-5.1) Chloride Level 107 mmol/L (98-107) 107 mmol/L (98-107) Carbon Dioxide Level 29 mmol/L (21-32) 28 mmol/L (21-32) Anion Gap 4 (6-14) 8 (6-14) Blood Urea Nitrogen 10 mg/dL (7-20) 5 mg/dL (7-20) Creatinine 0.6 mg/dL (0.6-1.0) 0.6 mg/dL (0.6-1.0) Estimated GFR (Cockcroft-Gault) 125.0 125.0 BUN/Creatinine Ratio 17 (6-20) Glucose Level 97 mg/dL (70-99) 96 mg/dL (70-99) Calcium Level 8.5 mg/dL (8.5-10.1) 8.4 mg/dL (8.5-10.1) Total Bilirubin 0.4 mg/dL (0.2-1.0) Aspartate Amino Transf (AST/SGOT) 22 U/L (15-37) Alanine Aminotransferase (ALT/SGPT) 185 U/L (14-59) Alkaline Phosphatase 207 U/L (46-116) Total Protein 6.4 g/dL (6.4-8.2) Albumin 3.5 g/dL (3.4-5.0) Albumin/Globulin Ratio 1.2 (1.0-1.7) Lipase 95 U/L (73-393) Phosphorus Level 4.4 mg/dL (2.6-4.7) Magnesium Level 2.0 mg/dL (1.8-2.4) Laboratory Tests Test 01/25/21 06:40 Sodium Level 143 mmol/L (136-145) Potassium Level 3.8 mmol/L (3.5-5.1) Chloride Level 107 mmol/L (98-107) Carbon Dioxide Level 28 mmol/L (21-32) Anion Gap 8 (6-14) Blood Urea Nitrogen 5 mg/dL (7-20) Creatinine 0.6 mg/dL (0.6-1.0) Estimated GFR (Cockcroft-Gault) 125.0 Glucose Level 96 mg/dL (70-99) Calcium Level 8.4 mg/dL (8.5-10.1) Phosphorus Level 4.4 mg/dL (2.6-4.7) Magnesium Level 2.0 mg/dL (1.8-2.4) Medications Vitals/I & O Vital Sign - Last 24 Hours 01/24/21 01/24/21 01/24/21 01/24/21 14:00 15:00 15:33 16:00 Temp 97.6 97.6 Pulse 81 81 Resp 16 B/P (MAP) 93/63 (73) 93/63 Pulse Ox 100 98 O2 Delivery Room Air Room Air Room Air 01/24/21 01/24/21 01/24/21 01/24/21 17:14 17:22 17:57 19:42 Temp 98.5 98.5 Pulse 72 Resp 20 B/P (MAP) 102/56 (71) Pulse Ox 98 98 98 100 O2 Delivery Room Air Room Air Room Air Room Air 01/24/21 01/24/21 01/24/21 01/24/21 20:00 20:16 20:46 21:22 Resp 18 18 Pulse Ox 100 100 97 O2 Delivery Room Air Room Air Room Air Room Air 01/24/21 01/25/21 01/25/21 01/25/21 23:15 03:08 03:13 05:59 Temp 97.4 97.8 97.4 97.8 Pulse 89 69 Resp 20 18 18 B/P (MAP) 107/66 (80) 103/53 (70) Pulse Ox 100 100 97 97 O2 Delivery Room Air Room Air Room Air Room Air 01/25/21 01/25/21 01/25/21 01/25/21 07:00 11:00 11:52 11:53 Temp 98.2 98.2 98.2 98.2 Pulse 104 81 Resp 24 16 B/P (MAP) 99/59 (72) 99/62 (74) Pulse Ox 99 98 99 99 O2 Delivery Room Air Room Air Room Air Room Air Intake and Output 01/24/21 01/24/21 01/25/21 15:00 23:00 07:00 Intake Total 100 ml Output Total 650 ml 800 ml Balance -550 ml -800 ml Problem List Problems Medical Problems: (1) Intractable abdominal pain Status: Acute Assessment New RUQ pain; suspect M/S. Other chronic problems. Plan of Care Note CPM/ Justicifation of Admission Dx: Justifications for Admission: Justification of Admission Dx: Yes Sepsis: Bacteremia GEORGES DONNELLY MD Jan 25, 2021 12:49
--- NOTE | 2021-01-25 17:14 | NUR ---
Nurse's note: The patient was informed by this nurse that the doctor has put orders for discharge. The patient did not complain and said that she needs home health set up. Earlier she asked for pain medicine. Discussed with her that she will receive the tramadol or lortab. Offered to give the med but she refused. A fentanyl patch was noted on her right upper arm, the patient did not specify when the med was placed.
--- NOTE | 2021-01-25 17:22 | NUR ---
Discharge Note: SUNITHA SCHULZT Discharge instructions and discharge home medications reviewed with the patient and a copy given. All questions have been answered and understanding verbalized. The following instructions and handouts were given: Continue TPN. Home meds as directed. No new presciptions given. To follow up with PCP and specialists this coming week, appointment date already set up. Patient discharged to home with home health on room air via wheelchair at 1530.
[2021-01-25] MEDS ORDERED: DEXTROSE 70% IV SCH (22:00)
[2021-01-25] MEDS ORDERED: [UNRECOGNIZED DRUG - OTHER] IV SCH (22:00)
[2021-01-25] MEDS ORDERED: TOTAL PARENTERAL NUTRITION IV SCH (22:00)
[2021-01-25] MEDS ORDERED: AMINO ACID IV SCH (22:00)
[2021-01-26] MEDS ORDERED: SCOPOLAMINE 1.5MG PATCH. TD SCH (09:00)
== END 2021-01-25 15:30 | disposition home health service (06) ==
LOC: ER 13:33 → ED HOLD 17:44 → 5 NORTH 18:17
PROVIDERS: ADMIT Family Medicine; ATTEND Family Medicine
DX: R50.9 Fever, unspecified (principal); G90.9 Disorder of the autonomic nervous system, unspecified; E43 Unspecified severe protein-calorie malnutrition; G89.29 Other chronic pain; J45.909 Unspecified asthma, uncomplicated; J90 Pleural effusion, not elsewhere classified; I10 Essential (primary) hypertension; J93.9 Pneumothorax, unspecified; K21.9 Gastro-esophageal reflux disease without esophagitis; K59.09 Other constipation; K31.84 Gastroparesis; K76.0 Fatty (change of) liver, not elsewhere classified; J94.8 Other specified pleural conditions; N30.01 Acute cystitis with hematuria; Z79.899 Other long term (current) drug therapy; Z82.3 Family history of stroke; Z82.49 Family history of ischemic heart disease and other diseases of the circulatory system; Z83.3 Family history of diabetes mellitus; Z86.718 Personal history of other venous thrombosis and embolism; Z93.4 Other artificial openings of gastrointestinal tract status; Z93.1 Gastrostomy status; Z90.49 Acquired absence of other specified parts of digestive tract; Z88.0 Allergy status to penicillin
CPT/HCPCS: 36415; 76705; 80048; 80053; 81001; 83690; 83735; 84100; 85025; 94640; 96361; 96374; 96375; 96376; 99284; G0378; J0610; J2405; J3010; J3475; J3480; J3490; J7030; J7626; G0379

== ENCOUNTER 2021-02-01 08:31 | Emergency (ER) | payer OTHER, MEDICARE, MEDICAID ==
[~2021-02-01] VITALS: Ht 170.2 cm; Wt 68.0 kg
[2021-02-01 09:21] LABS: BASO % 0 % (0-3); EOS % 1 % (0-3); HEMATOCRIT 30.9 % (36.0-47.0); HEMOGLOBIN 10.6 g/dL (12.0-15.5); LYMPH % 19 % (24-48); MEAN CORPUSCULAR HEMOGLOBIN 32 pg (25-35); MEAN CORPUSCULAR HGB CONC 34 g/dL (31-37); MEAN CORPUSCULAR VOLUME 92 fL (79-100); MONO # 0.3 x10^3/uL (0.0-1.1); MONO % 7 % (0-9); NEUT # 3.8 x10^3/uL (1.8-7.7); NEUT % 74 % (31-73); PLATELET COUNT 126 x10^3/uL (140-400); RED BLOOD COUNT 3.35 x10^6/uL (3.50-5.40); RED CELL DISTRIBUTION WIDTH 15.7 % (11.5-14.5); WHITE BLOOD COUNT 5.2 x10^3/uL (4.0-11.0)
[2021-02-01 09:27] LABS: CALCIUM 8.3 mg/dL (8.5-10.1); CREATININE 0.6 mg/dL (0.6-1.0); POTASSIUM 4.3 mmol/L (3.5-5.1)
[2021-02-01 09:33] LABS: ALBUMIN 3.1 g/dL (3.4-5.0); MAGNESIUM 1.8 mg/dL (1.8-2.4); PHOSPHORUS 3.8 mg/dL (2.6-4.7); TOTAL BILIRUBIN 0.2 mg/dL (0.2-1.0); TOTAL PROTEIN 6.2 g/dL (6.4-8.2)
--- NOTE | 2021-02-01 09:37 | PHYS DOC ---
Past Medical History Past Medical History: Asthma, DVT, GERD, Hypertension, Migraines, MRSA, Other Additional Past Medical Histor: GASTROPORESIS,RESP.FAILURESLEEP APNEA Past Surgical History: Other Additional Past Surgical Histo: X 2 J-TUBES,G-TUBE,RIGHT CHEST PORT Smoking Status: Never Smoker Alcohol Use: None General Adult EDM: Chief Complaint: URINE CATHETER PROBLEM HPI: HPI: Patient is a 20 year old female with extensive past medical history including gastroparesis requiring G-tube placement, to J-tube limbs, TPN parenteral nutrition, urinary retention with Joy catheter placement who presents with abdominal pain that started last night. Started around the same time that her Joy catheter stopped draining. Described as generalized. Started off suprapubic. Has had slightly worse nausea than is typical for her. No vomiting. No diarrhea. No fever/chills. She has been hospitalized twice here at [facility] this month. She has recently had a urinary tract infection with stenotrophomonas, and Citrobacter. Review of Systems: Review of Systems: Constitutional: Denies fever or chills. [] Eyes: Denies change in visual acuity. [] HENT: Denies nasal congestion or sore throat. [] Respiratory: Denies cough or shortness of breath. [] Cardiovascular: Denies chest pain or edema. [] GI: Reports abdominal pain and nausea. No vomiting, bloody stools or diarrhea. [] : Urinary catheter not draining. [] Musculoskeletal: Denies back pain or joint pain. [] Integument: Denies rash. [] Neurologic: Denies headache, focal weakness or sensory changes. [] Endocrine: Denies polyuria or polydipsia. [] Lymphatic: Denies swollen glands. [] Psychiatric: Denies depression or anxiety. [] Heart Score: C/O Chest Pain: No Risk Factors: Risk Factors: DM, Current or recent (<one month) smoker, HTN, HLP, family history of CAD, obesity. Risk Scores: Score 0 - 3: 2.5% MACE over next 6 weeks - Discharge Home Score 4 - 6: 20.3% MACE over next 6 weeks - Admit for Clinical Observation Score 7 - 10: 72.7% MACE over next 6 weeks - Early Invasive Strategies Allergies: Allergies: Allergies Coded Allergies Type Severity Reaction Last Updated Verified iron Allergy Severe Anaphylaxis 01/16/21 Yes Penicillins Allergy Intermediate LIGHT RASH CHILD 01/16/21 Yes Sulfa (Sulfonamide Antibiotics) Allergy Intermediate 01/16/21 Yes I S O L A T I O N *CONTACT* Allergy Unknown 11/17/20 Yes Physical Exam: PE: Constitutional: Chronically ill-appearing. [] HENT: Normocephalic, atraumatic, bilateral external ears normal, oropharynx moist, no oral exudates, nose normal. [] Eyes: PERRLA, EOMI, conjunctiva normal, no discharge. [] Neck: Normal range of motion, no tenderness, supple, no stridor. [] Cardiovascular:Heart rate regular rhythm, no murmur. Port in place in right subclavian area. Appears clean, dry, intact, without surrounding erythema. [] Lungs & Thorax: Bilateral breath sounds clear to auscultation [] Abdomen: G-tube and two J-tube insertion sites clean, dry, without surrounding erythema. Diffuse abdominal tenderness and voluntary guarding, worse in suprapubic region. [] : Joy catheter draining clear yellow urine. 200 cc in bag, last drained ~18 hours ago. Skin: Warm, dry, no erythema, no rash. [] Back: No tenderness, no CVA tenderness. [] Extremities: No tenderness, no cyanosis, no clubbing, ROM intact, no edema. [] Neurologic: Alert and oriented X 3, normal motor function, normal sensory f unction, no focal deficits noted. [] Psychologic: Affect normal, judgement normal, mood normal. [] Current Patient Data: Labs: Laboratory Tests Test 02/01/21 09:14 White Blood Count 5.2 x10^3/uL (4.0-11.0) Red Blood Count 3.35 x10^6/uL (3.50-5.40) L Hemoglobin 10.6 g/dL (12.0-15.5) L Hematocrit 30.9 % (36.0-47.0) L Mean Corpuscular Volume 92 fL (79-100) Mean Corpuscular Hemoglobin 32 pg (25-35) Mean Corpuscular Hemoglobin Concent 34 g/dL (31-37) Red Cell Distribution Width 15.7 % (11.5-14.5) H Platelet Count 126 x10^3/uL (140-400) L Neutrophils (%) (Auto) 74 % (31-73) H Lymphocytes (%) (Auto) 19 % (24-48) L Monocytes (%) (Auto) 7 % (0-9) Eosinophils (%) (Auto) 1 % (0-3) Basophils (%) (Auto) 0 % (0-3) Neutrophils # (Auto) 3.8 x10^3/uL (1.8-7.7) Lymphocytes # (Auto) 1.0 x10^3/uL (1.0-4.8) Monocytes # (Auto) 0.3 x10^3/uL (0.0-1.1) Eosinophils # (Auto) 0.0 x10^3/uL (0.0-0.7) Basophils # (Auto) 0.0 x10^3/uL (0.0-0.2) Sodium Level 142 mmol/L (136-145) Potassium Level 4.3 mmol/L (3.5-5.1) Chloride Level 106 mmol/L (98-107) Carbon Dioxide Level 28 mmol/L (21-32) Anion Gap 8 (6-14) Blood Urea Nitrogen 14 mg/dL (7-20) Creatinine 0.6 mg/dL (0.6-1.0) Estimated GFR (Cockcroft-Gault) 125.0 BUN/Creatinine Ratio 23 (6-20) H Glucose Level 91 mg/dL (70-99) Calcium Level 8.3 mg/dL (8.5-10.1) L Phosphorus Level Pending Magnesium Level Pending Total Bilirubin Pending Aspartate Amino Transferase (AST) Pending Alanine Aminotransferase (ALT) Pending Alkaline Phosphatase Pending Total Protein Pending Albumin Pending Albumin/Globulin Ratio Pending Laboratory Tests 02/01/21 09:14 Laboratory Tests 02/01/21 09:14 Vital Signs: Vital Signs Date Time Temp Pulse Resp B/P (MAP) Pulse Ox O2 Delivery O2 Flow Rate FiO2 02/01/21 08:54 98.4 98 16 119/63 (81) 99 Room Air 98.4 EKG: EKG: [] Radiology/Procedures: Radiology/Procedures: Vgklo-lu-ehic ultrasound showed a distended bladder with a Joy catheter balloon in place. Course & Med Decision Making: Course & Med Decision Making Pertinent Labs and Imaging studies reviewed. (See chart for details) Patient is a 20-year-old female with complex past medical history outlined in HPI who presents with abdominal pain and Joy catheter that has not drained since 2 PM yesterday afternoon. [id number] ultrasound showed a distended bladder with a Joy balloon in the correct position, indicating a catheter malfunction/obstruction. Will replace Joy catheter and send UA for culture. Morphine for pain. We will defer any further imaging at this time, until we see if replacement of Joy catheter relieves her symptoms. 0937 Pain improved on reassessment. New joy is draining well. CBC, CMP are improved from last measurements. No evidence of systemic infection. UA does show evidence of infection. Last culture was E. coli sensitive to ceftriaxone at the end of December. We will treat with cefdinir. 1104 Pooja Disclaimer: Pooja Disclaimer: This electronic medical record was generated, in whole or in part, using a voice recognition dictation system. Departure Departure Impression: Primary Impression: Urinary tract infection Additional Impression: Obstructed Joy catheter Disposition: HOME / SELF CARE / HOMELESS Condition: STABLE Referrals: ARASH YUN SENIOR RESIDENT CARE DIRECTOR (PCP) Schedule follow-up appointment with your primary care doctor to ensure that your symptoms/urinary tract infection are improving. Additional Instructions: Your test showed evidence of urinary tract infection and that that your Joy catheter was not working. We replaced your Joy catheter. Please take cefdinir for your urinary tract infection. Please take full course as prescribed. Please follow-up with your primary care doctor to ensure that your symptoms/urinary tract infection are improving. Please call their office tomorrow to schedule appointment. If you develop high fevers, shaking chills, worsening pain, intractable nausea/vomiting, or other new/concerning symptoms please return to the emergency department for reevaluation. Please treat your pain with your standing home medications. Scripts Cefdinir (CEFDINIR) 300 Mg Capsule 1 CAP PO BID for 14 Days, #28 CAP 0 Refills Prov: KARL FRANK MD 02/01/21 KARL FRANK MD Feb 01, 2021 09:37
[2021-02-01 09:48] LABS: BILIRUBIN,URINE NEGATIVE (NEG); CLARITY,URINE CLEAR; COLOR,URINE YELLOW; NITRITE,URINE NEGATIVE (NEG); PH,URINE 6.5 (<5.0-8.0); PROTEIN,URINE NEGATIVE (NEG-TRACE); UROBILINOGEN,URINE 0.2 mg/dL (0.2 mg/dL)
[2021-02-01 09:55] LABS: BACTERIA,URINE FEW /HPF (0-FEW); WBC,URINE >40 /HPF (0-4)
[2021-02-01 09:56] LABS: RBC,URINE OCC /HPF (0-2)
[2021-02-01] MEDS ORDERED: MORPHINE SULFATE 4 MG/ML INJ. IVP ONE (10:30)
[2021-02-01 10:48] VITALS: BP 106/56
[2021-02-01] MEDS ORDERED: CEFD300C PO ×2 (11:05→11:27)
== END 2021-02-01 11:28 | disposition home or self-care (01) ==
LOC: ER 08:31
DX: T83.098A Other mechanical complication of other urinary catheter, initial encounter (principal); N39.0 Urinary tract infection, site not specified; J45.909 Unspecified asthma, uncomplicated; K21.9 Gastro-esophageal reflux disease without esophagitis; I10 Essential (primary) hypertension; G43.909 Migraine, unspecified, not intractable, without status migrainosus; Z86.718 Personal history of other venous thrombosis and embolism; Z86.14 Personal history of Methicillin resistant Staphylococcus aureus infection; Z88.0 Allergy status to penicillin; Z88.2 Allergy status to sulfonamides; Z91.041 Radiographic dye allergy status; Z88.8 Allergy status to other drugs, medicaments and biological substances; Y83.8 Other surgical procedures as the cause of abnormal reaction of the patient, or of later complication, without mention of misadventure at the time of the procedure; Y92.89 Other specified places as the place of occurrence of the external cause
CPT/HCPCS: 36415; 51702; 80053; 81001; 83735; 84100; 85025; 87077; 87086; 87186; 96374; 99284; J2270; 99283

== ENCOUNTER 2021-02-24 15:01 | Emergency (ER) | payer OTHER, MEDICARE, MEDICAID ==
[~2021-02-24] VITALS: Ht 170.2 cm; Wt 70.9 kg
[~2021-02-24 15:01] MED LIST changes: +CEFD300C PO
[2021-02-24] MEDS ORDERED: IV NORMAL SALINE 1000ML BAG 1,000 ML IV ONE (17:00)
[2021-02-24] MEDS ORDERED: ONDANSETRON PF 4 MG/2 ML VIAL. IVP ONE (17:00)
[2021-02-24] MEDS ORDERED: MORPHINE SULFATE 4 MG/ML INJ. IVP ONE (17:00)
[2021-02-24] MEDS ORDERED: diphenhydrAMINE 50 MG/ML VIAL IVP ONE (17:00)
[2021-02-24 17:28] LABS: BASO % 0 % (0-3); EOS # 0.1 x10^3/uL (0.0-0.7); EOS % 1 % (0-3); HEMATOCRIT 32.6 % (36.0-47.0); HEMOGLOBIN 11.2 g/dL (12.0-15.5); LYMPH % 16 % (24-48); MEAN CORPUSCULAR HEMOGLOBIN 32 pg (25-35); MEAN CORPUSCULAR HGB CONC 34 g/dL (31-37); MEAN CORPUSCULAR VOLUME 92 fL (79-100); MONO # 0.4 x10^3/uL (0.0-1.1); MONO % 7 % (0-9); NEUT # 4.6 x10^3/uL (1.8-7.7); NEUT % 76 % (31-73); PLATELET COUNT 119 x10^3/uL (140-400); RED BLOOD COUNT 3.53 x10^6/uL (3.50-5.40); RED CELL DISTRIBUTION WIDTH 14.4 % (11.5-14.5)
[2021-02-24 17:31] LABS: CALCIUM 8.6 mg/dL (8.5-10.1); CREATININE 0.6 mg/dL (0.6-1.0); POTASSIUM 4.1 mmol/L (3.5-5.1)
--- NOTE | 2021-02-24 17:31 | PHYS DOC ---
Past Medical History Past Medical History: Asthma, DVT, GERD, Hypertension, Migraines, MRSA, Other Additional Past Medical Histor: GASTROPORESIS,RESP.FAILURESLEEP APNEA Past Surgical History: Other Additional Past Surgical Histo: X 2 J-TUBES,G-TUBE,RIGHT CHEST PORT Smoking Status: Never Smoker Alcohol Use: None Drug Use: None General Adult EDM: Chief Complaint: NAUSEA/VOMITING/DIARRHEA HPI: HPI: Patient is a 20 year old here with multiple complaints. She reports persistent nausea and vomiting and generalized abdominal pain. She denies constipation or diarrhea. She denies fever or chills. She denies any focal abdominal pain. Denies chest pain, cough, dyspnea. She denies dizziness or syncope. She has had the symptoms intermittently for years. She is undergone multiple abdominal surgeries. She has home health services and has a PICC line in her left chest, which was placed 4 days ago at [facility]. She received IV Zofran and oral pain medications at home. Dr. Santana is her surgeon, and she ports that she contacted his office today, and it was recommended she come to the ER for further pain medication, fluids and antiemetics. He has idiopathic gastroparesis. She has had multiple J-tubes, with revisions. She has had multiple port placements and removals. She reports history of urinary tract infections, as well as prior history of sepsis. She denies any fevers or chills. No measured objective hypothermia or hyperthermia. Review of Systems: Review of Systems: Constitutional: Denies fever or chills. Chronic anxorexia symptoms. Eyes: Denies change in visual acuity. [] HENT: Denies nasal congestion or sore throat. [] Respiratory: Denies cough or shortness of breath. [] Cardiovascular: Denies chest pain or edema. [] GI: Admits to generalized, chronic and unchanged abdominal pain, as well as nausea and vomiting. Denies constipation or diarrhea. : Denies urinary symptoms. Musculoskeletal: Denies acute changes in chronic joint pain symptoms. Integument: Denies rash. [] Neurologic: Denies headache, focal weakness or sensory changes. [] Psychiatric: Chronic and unchanged depression symptoms. Denies SI or HI. Heart Score: C/O Chest Pain: No Risk Factors: Risk Factors: DM, Current or recent (<one month) smoker, HTN, HLP, family history of CAD, obesity. Risk Scores: Score 0 - 3: 2.5% MACE over next 6 weeks - Discharge Home Score 4 - 6: 20.3% MACE over next 6 weeks - Admit for Clinical Observation Score 7 - 10: 72.7% MACE over next 6 weeks - Early Invasive Strategies Current Medications: Current Medications Medications (Trade) Dose Ordered Sig/Kel Start Time Stop Time Status Last Admin Dose Admin Diphenhydramine HCl (Benadryl) 25 mg 1X ONCE 02/24/21 17:00 02/24/21 17:01 DC 02/24/21 17:12 25 MG Morphine Sulfate (Morphine Sulfate) 4 mg 1X ONCE 02/24/21 17:00 02/24/21 17:01 DC 02/24/21 17:12 4 MG Ondansetron HCl (Zofran) 4 mg 1X ONCE 02/24/21 17:00 02/24/21 17:01 DC 02/24/21 17:11 4 MG Sodium Chloride 1,000 ml @ 1,000 mls/hr 1X ONCE 02/24/21 17:00 02/24/21 17:59 02/24/21 17:12 1,000 MLS/HR Allergies: Allergies: Allergies Coded Allergies Type Severity Reaction Last Updated Verified iron Allergy Severe Anaphylaxis 01/16/21 Yes Penicillins Allergy Intermediate LIGHT RASH CHILD 01/16/21 Yes Sulfa (Sulfonamide Antibiotics) Allergy Intermediate 01/16/21 Yes I S O L A T I O N *CONTACT* Allergy Unknown 11/17/20 Yes Physical Exam: PE: Constitutional: Awake, alert, well groomed appearing. Appears moderately nourished. She is well-kempt. Nontoxic appearing. HENT: Normocephalic, atraumatic, bilateral external ears normal, mucous membranes moist. Eyes: PERRLA, EOMI, conjunctiva normal, sclera nonicteric. No discharge. [] Neck: Normal range of motion, no tenderness, supple, no stridor. [] Cardiovascular:Heart rate regular rhythm, no murmur [] Lungs & Thorax: Bilateral breath sounds clear to auscultation [] Abdomen: Abdomen is soft, nondistended, normal bowel sounds, nonfocal generalized tenderness to palpation, without guarding or rebound tenderness. No CVA tenderness. Skin: Warm, dry, no erythema, no rash. [] Back: No tenderness, full range of motion. Extremities: No tenderness, no cyanosis, no clubbing, ROM intact, no edema. [] Neurologic: Alert and oriented X 3, normal motor function, normal sensory function, no focal deficits noted. [] Psychologic: She is pleasant and cooperative. She is tearful and mildly anxious. Current Patient Data: Vital Signs: Vital Signs Date Time Temp Pulse Resp B/P (MAP) Pulse Ox O2 Delivery O2 Flow Rate FiO2 02/24/21 17:12 15 100 Room Air EKG: EKG: [] Radiology/Procedures: Radiology/Procedures: [] Course & Med Decision Making: Course & Med Decision Making Pertinent Labs and Imaging studies reviewed. (See chart for details) Patient is given IV fluids. She received IV Benadryl and Zofran for nausea. She requested IV morphine for pain, so she was given this as well. She appears clinically well, is hemodynamically stable, and is now sitting up and smiling, and appears to be much more comfortable. She admits to some at least modest improvement of her symptoms. She has not vomited here. She has a nonfocal, and benign, nonsurgical abdominal exam. I have discussed all of the findings, differential diagnosis and plan of care with her. I have reviewed her previous labs and compared them to today's. Her hemoglobin is actually quite a bit improved today. I have explained that she should follow-up with her primary care physician as well as her surgeon and GI physicians. I did discuss with her the possibility that formal pain management services may be of significant help to her. She has discussed this with her physicians, though has not embarked upon this as of yet. She feels comfortable going home. She requests a refill of her scopolamine patches, so this will be given. I told her that she should follow-up with her physicians for any refills of opioid medications, if warranted. She feels comfortable with the plan of care. I have discussed very strict return precautions, and she verbalizes understanding of these. Pooja Disclaimer: Pooja Disclaimer: This electronic medical record was generated, in whole or in part, using a voice recognition dictation system. Departure Departure Impression: Primary Impression: Nausea and vomiting Additional Impressions: Chronic abdominal pain Gastroparesis Disposition: HOME / SELF CARE / HOMELESS Condition: STABLE Referrals: ARASH YUN DIRECTOR OF RETAIL ANALYTICS (PCP) Patient Instructions: Chronic Pain, Gastroparesis, Nausea and Vomiting Additional Instructions: Take your prescribed medications as directed. Return for acute changes in pain, for uncontrolled vomiting, dehydration, fever of 100.4 or higher, or for any other concerns. Please discuss your symptoms with your surgeon and GI physicians. Please also consider formal pain management consultation. Please feel free to return to the ER at any time, for any reason. Scripts Scopolamine (TRANSDERM-SCOP) 1 Each Patch.[id number] 1 PATCH TP Q3DAYS, #4 PATCH Prov: LEXII CARRANZA DO 02/24/21 LEXII CARRANZA DO Feb 24, 2021 17:31
[2021-02-24 17:37] LABS: ALBUMIN 3.4 g/dL (3.4-5.0); ALBUMIN/GLOBULIN RATIO 1.1 (1.0-1.7); TOTAL BILIRUBIN 0.3 mg/dL (0.2-1.0); TOTAL PROTEIN 6.5 g/dL (6.4-8.2)
[2021-02-24 17:38] LABS: PREG TEST PT QUAL NEGATIVE (NEG)
[2021-02-24 18:23] LABS: BILIRUBIN,URINE NEGATIVE (NEG); CLARITY,URINE CLEAR; COLOR,URINE YELLOW; NITRITE,URINE NEGATIVE (NEG); PROTEIN,URINE NEGATIVE (NEG-TRACE); UROBILINOGEN,URINE 0.2 mg/dL (0.2 mg/dL)
[2021-02-24 18:35] LABS: BACTERIA,URINE FEW /HPF (0-FEW)
[2021-02-24 18:46] VITALS: BP 117/64
[2021-02-24] MEDS ORDERED: SCOP1PAT12 TP (18:59)
== END 2021-02-24 19:21 | disposition home or self-care (01) ==
LOC: ER 15:01
DX: R10.84 Generalized abdominal pain (principal); G89.29 Other chronic pain; R11.2 Nausea with vomiting, unspecified; K31.84 Gastroparesis; J45.909 Unspecified asthma, uncomplicated; K21.9 Gastro-esophageal reflux disease without esophagitis; I10 Essential (primary) hypertension; G43.909 Migraine, unspecified, not intractable, without status migrainosus; Z86.718 Personal history of other venous thrombosis and embolism; Z86.14 Personal history of Methicillin resistant Staphylococcus aureus infection; Z88.0 Allergy status to penicillin; Z88.2 Allergy status to sulfonamides; Z91.041 Radiographic dye allergy status; Z88.8 Allergy status to other drugs, medicaments and biological substances
CPT/HCPCS: 36415; 80053; 81001; 81025; 83690; 84703; 85025; 96361; 96374; 96375; 99285; J1200; J2270; J2405; J7030

== ENCOUNTER 2021-02-27 13:40 | Emergency (ER) | payer OTHER, MEDICARE, MEDICAID ==
[~2021-02-27] VITALS: Ht 170.2 cm; Wt 70.4 kg
[~2021-02-27 13:40] MED LIST changes: -HYDR15SO6 PO; -MICA100V4 IV
[2021-02-27] MEDS ORDERED: IV NORMAL SALINE 1000ML BAG 1,000 ML IV ONE (14:30)
--- NOTE | 2021-02-27 14:30 | PHYS DOC ---
Past Medical History Past Medical History: Asthma, DVT, GERD, Hypertension, Migraines, MRSA, Other Additional Past Medical Histor: GASTROPORESIS,RESP.FAILURE, SLEEP APNEA (BARB COOPER APRN) Past Surgical History: Other Additional Past Surgical Histo: X 2 J-TUBES,G-TUBE,LEFT CHEST PORT (BARB COOPER APRN) Smoking Status: Never Smoker Alcohol Use: None Drug Use: None (BARB COOPER APRN) General Adult EDM: Chief Complaint: FEVER HPI: HPI: Patient is a 20-year-old female that presents today with fever and chills. Patient states symptoms started 24 hours ago patient has had history of tunneled line placement in the left chest wall cyst last Tuesday. Patient has a tunneled Everett for TPN therapy at home patient states that dressing was changed on Tuesday by her home health care worker today area has been tender to touch and she has had fever and chills since yesterday. Patient contacted Dr. Mohr office and they told her to come to the emergency department for evaluation. Patient has a long past medical history with chronic gastroparesis which has required multiple multiple surgeries along with G-tube placement with revisions and ileostomy. Patient states she had the line in her right chest wall removed unknown reason. (BARB COOPER MANAGER PART) Review of Systems: Review of Systems: Constitutional: fever or chills. [] Eyes: Denies change in visual acuity. [] HENT: Denies nasal congestion or sore throat. [] Respiratory: Denies cough or shortness of breath. [] Cardiovascular: Denies chest pain or edema. [] GI: Chronic abdominal pain, nausea, vomiting with blood streaks. . [] : Denies dysuria. [] Musculoskeletal: Body aches and left chest wall pain with palpation [] Integument: Denies rash. [] Neurologic: headache, denies focal weakness or sensory changes. [] Endocrine: Denies polyuria or polydipsia. [] Lymphatic: Denies swollen glands. [] Psychiatric: Denies depression or anxiety. [] (BARB COOPER APRN) Heart Score: C/O Chest Pain: N/A Risk Factors: Risk Factors: DM, Current or recent (<one month) smoker, HTN, HLP, family history of CAD, obesity. Risk Scores: Score 0 - 3: 2.5% MACE over next 6 weeks - Discharge Home Score 4 - 6: 20.3% MACE over next 6 weeks - Admit for Clinical Observation Score 7 - 10: 72.7% MACE over next 6 weeks - Early Invasive Strategies (BARB COOPER APRN) Allergies: Allergies: Allergies Coded Allergies Type Severity Reaction Last Updated Verified iron Allergy Severe Anaphylaxis 01/16/21 Yes Penicillins Allergy Intermediate LIGHT RASH CHILD 01/16/21 Yes Sulfa (Sulfonamide Antibiotics) Allergy Intermediate 01/16/21 Yes I S O L A T I O N *CONTACT* Allergy Unknown 11/17/20 Yes (BARB COOPER MANAGER PART) Physical Exam: PE: Constitutional: sickly female with apears in moderate distress.[] HENT: Normocephalic, atraumatic, bilateral external ears normal, oropharynx dry. [] Eyes: PERRLA, EOMI, conjunctiva normal, no discharge. [] Neck: Normal range of motion, no tenderness, supple, no stridor. [] Cardiovascular:Heart rate regular rhythm, no murmur [] Lungs & Thorax: Bilateral breath sounds clear to auscultation [] Abdomen: Bowel sounds hypoactive, soft, diffuse tenderness, no masses, no pulsatile masses, G-tube flipped noted mid abdominal area, ileostomy noted, multiple abdominal scars noted [] Skin: Warm, dry, pale. no rash healing wounbd in right upper chest wall, no redness or drainage noted, left chest wall tunneled everett noted, tender to touch, dressing in place. [] Neurologic: Alert and oriented X 3, normal motor function, normal sensory function, no focal deficits noted. [] Psychologic: Affect flat, judgement normal, mood normal. [] (BARB COOPER MANAGER PART) Current Patient Data: Labs: Laboratory Tests Test 02/27/21 14:22 02/27/21 16:10 02/27/21 16:14 White Blood Count 2.7 x10^3/uL Red Blood Count 3.41 x10^6/uL Hemoglobin 10.6 g/dL Hematocrit 31.1 % Mean Corpuscular Volume 91 fL Mean Corpuscular Hemoglobin 31 pg Mean Corpuscular Hemoglobin Concent 34 g/dL Red Cell Distribution Width 13.9 % Platelet Count 70 x10^3/uL Neutrophils (%) (Auto) 70 % Lymphocytes (%) (Auto) 18 % Monocytes (%) (Auto) 11 % Eosinophils (%) (Auto) 1 % Basophils (%) (Auto) 0 % Neutrophils # (Auto) 1.9 x10^3/uL Lymphocytes # (Auto) 0.5 x10^3/uL Monocytes # (Auto) 0.3 x10^3/uL Eosinophils # (Auto) 0.0 x10^3/uL Basophils # (Auto) 0.0 x10^3/uL Sodium Level 139 mmol/L Potassium Level 3.9 mmol/L Chloride Level 104 mmol/L Carbon Dioxide Level 27 mmol/L Anion Gap 8 Blood Urea Nitrogen 12 mg/dL Creatinine 0.6 mg/dL Estimated GFR (Cockcroft-Gault) 125.0 BUN/Creatinine Ratio 20 Glucose Level 86 mg/dL Calcium Level 8.3 mg/dL Total Bilirubin 0.3 mg/dL Aspartate Amino Transf (AST/SGOT) 16 U/L Alanine Aminotransferase (ALT/SGPT) 22 U/L Alkaline Phosphatase 111 U/L Total Protein 6.5 g/dL Albumin 3.4 g/dL Albumin/Globulin Ratio 1.1 Urine Collection Type Unknown Urine Color Yellow Urine Clarity Clear Urine pH 6.0 Urine Specific Rover 1.010 Urine Protein Negative mg/dL Urine Glucose (UA) Negative mg/dL Urine Ketones (Stick) Negative mg/dL Urine Blood Negative Urine Nitrite Negative Urine Bilirubin Negative Urine Urobilinogen Dipstick 0.2 mg/dL Urine Leukocyte Esterase Negative Urine RBC 1-2 /HPF Urine WBC 1-4 /HPF Urine Squamous Epithelial Cells Mod /LPF Urine Bacteria Few /HPF Urine Mucus Slight /LPF Urine Yeast Present /HPF Bedside Urine HCG, Qualitative Hcg negative Current Medications Medications (Trade) Dose Ordered Sig/Kel Route PRN Reason Start Time Stop Time Status Last Admin Dose Admin Sodium Chloride 1,000 ml @ 500 mls/hr 1X ONCE IV 02/27/21 14:30 02/27/21 16:29 DC 02/27/21 14:36 Morphine Sulfate (Morphine Sulfate) 4 mg 1X ONCE IVP 02/27/21 15:00 02/27/21 15:01 DC 02/27/21 15:09 Ceftriaxone Sodium (Rocephin) 1 gm 1X ONCE IVP 02/27/21 16:45 02/27/21 16:46 DC Vital Signs: Vital Signs Date Time Temp Pulse Resp B/P (MAP) Pulse Ox O2 Delivery O2 Flow Rate FiO2 02/27/21 14:14 98.5 102 22 137/66 (89) 100 Room Air 98.5 (BARB COOPER APRN) EKG: EKG: [] (BARB COOPER APRN) Radiology/Procedures: Radiology/Procedures: []PROCEDURE: CHEST AP ONLY Single view of the chest. 02/27/2021 2:35 PM Indication: Reason: fever and chills / Spl. Instructions: / History: Comparison: Chest radiograph December 09, 2020 Findings: There is a left-sided tunneled central line with tip projecting over the expected region of the superior vena cava. Previously seen right-sided tunneled central line has been removed. Previously seen right thoracostomy tube is absent. The lungs are grossly clear. No pneumothorax is identified. No pleural effusion is seen. Heart size is normal. Bony thorax is intact. IMPRESSION: 1. No evidence of acute cardiopulmonary process 2. Left-sided central line has tip projecting over the expected region of the superior vena cava (BARB COOPER APRN) Course & Med Decision Making: Course & Med Decision Making Pertinent Labs and Imaging studies reviewed. (See chart for details) Reviewed case with Dr. Mancini labs ordered will order IV fluids, blood cultures x2 obtain 1 set from tunneled line one from periphery. 1609 reexamined patient patient states continued pain in the left upper chest wall, states feels better after liter of fluids. Patient informed that we will call Dr. Mohr to find out a plan of care patient is agreeable with that plan. [address] Mohr by phone, reviewed assessment and lab results with Dr. Santana, the only concern he had would be line infection, he recommended giving 1 g of Rocephin IV while in the emergency department, have patient follow-up on Tuesday with his office, give return instructions for increased fever pain redness swelling at line site to return to the emergency department for admission. (BARB COOPER APRN) Course & Med Decision Making I have reviewed and was available for consultation in the emergency department for this patient that was seen by midlevel provider. Agree with plan. Abel Mancini DO (ABEL MANCINI DO) Dragrenita Disclaimer: Dragon Disclaimer: This electronic medical record was generated, in whole or in part, using a voice recognition dictation system. (BARB COOPER APRN) Departure Departure Impression: Primary Impression: Chest wall pain following surgery Disposition: HOME / SELF CARE / HOMELESS Condition: STABLE Referrals: ARASH YUN HIGH SCHOOL PHYSICAL EDUCATION TEACHER (PCP) TORIE SANTANA MD Patient Instructions: Chest Contusion, [id number] Additional Instructions: Tylenol or ibuprofen to chest for chest wall pain Continue with home medications and infusions Return the emergency department for increased pain, fever, chills, nausea/vomiting, redness or drainage from tunneled line insertion site. Follow-up with Dr. Mohr's office on Tuesday. BARB COOPER APRN Feb 27, 2021 14:30 ABEL MANCINI DO Mar 02, 2021 06:54
[2021-02-27 14:39] LABS: BASO % 0 % (0-3); EOS % 1 % (0-3); HEMATOCRIT 31.1 % (36.0-47.0); HEMOGLOBIN 10.6 g/dL (12.0-15.5); LYMPH # 0.5 x10^3/uL (1.0-4.8); LYMPH % 18 % (24-48); MEAN CORPUSCULAR HEMOGLOBIN 31 pg (25-35); MEAN CORPUSCULAR HGB CONC 34 g/dL (31-37); MEAN CORPUSCULAR VOLUME 91 fL (79-100); MONO # 0.3 x10^3/uL (0.0-1.1); MONO % 11 % (0-9); NEUT # 1.9 x10^3/uL (1.8-7.7); NEUT % 70 % (31-73); PLATELET COUNT 70 x10^3/uL (140-400); RED BLOOD COUNT 3.41 x10^6/uL (3.50-5.40); RED CELL DISTRIBUTION WIDTH 13.9 % (11.5-14.5); WHITE BLOOD COUNT 2.7 x10^3/uL (4.0-11.0)
--- NOTE | 2021-02-27 14:45 | RAD ---
Single view of the chest. 02/27/2021 2:35 PM Indication: Reason: fever and chills / Spl. Instructions: / History: Comparison: Chest radiograph December 09, 2020 Findings: There is a left-sided tunneled central line with tip projecting over the expected region of the superior vena cava. Previously seen right-sided tunneled central line has been removed. Previous ly seen right thoracostomy tube is absent. The lungs are grossly clear. No pneumothorax is identified . No pleural effusion is seen. Heart size is normal. Bony thorax is intact. IMPRESSION: 1. No evidence of acute cardiopulmonary process 2. Left-sided central line has tip projecting over the expected region of the superior vena cava Electronically signed by: Flo Cartwright MD (02/27/2021 2:43 PM) [id number]
[2021-02-27 14:57] LABS: CALCIUM 8.3 mg/dL (8.5-10.1); CREATININE 0.6 mg/dL (0.6-1.0); POTASSIUM 3.9 mmol/L (3.5-5.1)
[2021-02-27] MEDS ORDERED: MORPHINE SULFATE 4 MG/ML INJ. IVP ONE (15:00)
[2021-02-27 15:03] LABS: ALBUMIN 3.4 g/dL (3.4-5.0); ALBUMIN/GLOBULIN RATIO 1.1 (1.0-1.7); TOTAL BILIRUBIN 0.3 mg/dL (0.2-1.0); TOTAL PROTEIN 6.5 g/dL (6.4-8.2)
[2021-02-27 16:33] VITALS: BP 116/66
[2021-02-27 16:42] LABS: BILIRUBIN,URINE NEGATIVE (NEG); CLARITY,URINE CLEAR; COLOR,URINE YELLOW; NITRITE,URINE NEGATIVE (NEG); PROTEIN,URINE NEGATIVE (NEG-TRACE); UROBILINOGEN,URINE 0.2 mg/dL (0.2 mg/dL)
[2021-02-27] MEDS ORDERED: cefTRIAXone IV Push 1 GM VIAL. IVP ONE (16:45)
[2021-02-27 16:55] LABS: BACTERIA,URINE FEW /HPF (0-FEW); YEAST,URINE PRESENT /HPF
== END 2021-02-27 18:00 | disposition home or self-care (01) ==
LOC: ER 13:40
DX: T82.9XXA Unspecified complication of cardiac and vascular prosthetic device, implant and graft, initial encounter (principal); R07.89 Other chest pain; R11.2 Nausea with vomiting, unspecified; J45.909 Unspecified asthma, uncomplicated; Z86.718 Personal history of other venous thrombosis and embolism; K21.9 Gastro-esophageal reflux disease without esophagitis; I10 Essential (primary) hypertension; G43.909 Migraine, unspecified, not intractable, without status migrainosus; Z86.14 Personal history of Methicillin resistant Staphylococcus aureus infection; G89.29 Other chronic pain; Z93.1 Gastrostomy status
CPT/HCPCS: 36415; 71045; 80053; 81001; 81025; 85025; 87040; 87106; 87205; 96361; 96374; 96375; 99285; J0696; J2270; J7030

== ENCOUNTER → 2021-02-27 | Outpatient (CLI) | payer OTHER, MEDICARE, MEDICAID ==
[2021-02-24 18:46] VITALS: BP 117/64
[~2021-02-27] MED LIST changes: +HYDR15SO6 PO; +MICA100V4 IV
[2021-02-27 12:33] LABS: BASO % 0 % (0-3); EOS % 1 % (0-3); HEMOGLOBIN 10.8 g/dL (12.0-15.5); LYMPH # 0.5 x10^3/uL (1.0-4.8); LYMPH % 21 % (24-48); MEAN CORPUSCULAR HEMOGLOBIN 31 pg (25-35); MEAN CORPUSCULAR HGB CONC 34 g/dL (31-37); MEAN CORPUSCULAR VOLUME 93 fL (79-100); MONO # 0.3 x10^3/uL (0.0-1.1); MONO % 11 % (0-9); NEUT # 1.7 x10^3/uL (1.8-7.7); NEUT % 67 % (31-73); PLATELET COUNT 84 x10^3/uL (140-400); RED BLOOD COUNT 3.46 x10^6/uL (3.50-5.40); RED CELL DISTRIBUTION WIDTH 13.5 % (11.5-14.5); WHITE BLOOD COUNT 2.5 x10^3/uL (4.0-11.0)
== END ==
LOC: ONCLAB 12:23
PROVIDERS: ATTEND Internal Medicine Hematology & Oncology
DX: D64.9 Anemia, unspecified (principal)
CPT/HCPCS: 36415; 82728; 83540; 83550; 85025

== ENCOUNTER 2021-02-28 11:47 | Inpatient (IN) | payer OTHER, MEDICARE, MEDICAID ==
[~2021-02-28] VITALS: Ht 170.2 cm; Wt 71.2 kg
[2021-02-28] MEDS ORDERED: HYDROmorphone 2 MG/ML VIAL IVP ONE (12:30)
[2021-02-28] MEDS ORDERED: ONDANSETRON PF 4 MG/2 ML VIAL. IVP ONE (12:30)
[2021-02-28] MEDS ORDERED: IV NORMAL SALINE 1000ML BAG 1,000 ML IV ONE (12:30)
--- NOTE | 2021-02-28 13:04 | PHYS DOC ---
Past Medical History Past Medical History: Asthma, DVT, GERD, Hypertension, Migraines, MRSA, Other Additional Past Medical Histor: GASTROPORESIS,RESP.FAILURE, SLEEP APNEA Past Surgical History: Other Additional Past Surgical Histo: X 2 J-TUBES,G-TUBE,LEFT CHEST PORT Smoking Status: Never Smoker Alcohol Use: None Drug Use: None General Adult EDM: Chief Complaint: FEVER HPI: HPI: Patient is a 20 year old female with history of CVA, depression, hypertension, migraine headaches, gastroparesis with 2J tubes, 1 G-tube, on TPN through central line who presents the ED today complaining of nausea, vomiting, fevers, fatigue, symptoms began on last week. Patient states she had a central line placed on Tuesday last week at [facility]. She states the mother called Dr. Santana today and was asked return her to the ED. She was in the ED yesterday and was evaluated for similar symptoms. She states her temperature last night was 102.7. She states she has taken 3000 mg of Tylenol since 10 PM yesterday. Review of Systems: Review of Systems: Constitutional: Reports fever and fatigue Eyes: Denies change in visual acuity. [] HENT: Denies nasal congestion or sore throat. [] Respiratory: Denies cough or shortness of breath. [] Cardiovascular: Denies chest pain or edema. [] GI: Reports nausea and vomiting. Denies abdominal pain, bloody stools or diarrhea. [] : Denies dysuria. [] Musculoskeletal: Denies back pain or joint pain. [] Integument: Denies rash. [] Neurologic: Denies headache, focal weakness or sensory changes. [] Psychiatric: Denies depression or anxiety. [] Heart Score: C/O Chest Pain: N/A Risk Factors: Risk Factors: DM, Current or recent (<one month) smoker, HTN, HLP, family history of CAD, obesity. Risk Scores: Score 0 - 3: 2.5% MACE over next 6 weeks - Discharge Home Score 4 - 6: 20.3% MACE over next 6 weeks - Admit for Clinical Observation Score 7 - 10: 72.7% MACE over next 6 weeks - Early Invasive Strategies Current Medications: Current Medications Medications (Trade) Dose Ordered Sig/Kel Start Time Stop Time Status Last Admin Dose Admin Hydromorphone HCl (Dilaudid) 1 mg 1X ONCE 02/28/21 12:30 02/28/21 12:31 DC Ondansetron HCl (Zofran) 4 mg 1X ONCE 02/28/21 12:30 02/28/21 12:31 DC Sodium Chloride 1,000 ml @ 1,000 mls/hr 1X ONCE 02/28/21 12:30 02/28/21 13:29 Allergies: Allergies: Allergies Coded Allergies Type Severity Reaction Last Updated Verified iron Allergy Severe Anaphylaxis 01/16/21 Yes Penicillins Allergy Intermediate LIGHT RASH CHILD 01/16/21 Yes Sulfa (Sulfonamide Antibiotics) Allergy Intermediate 01/16/21 Yes I S O L A T I O N *CONTACT* Allergy Unknown 11/17/20 Yes Physical Exam: PE: Constitutional: Thin appearing patient, no acute distress, non-toxic appearance. [] HENT: Normocephalic, atraumatic, bilateral external ears normal, oropharynx moist, no oral exudates, nose normal. [] Eyes: PERRLA, EOMI, conjunctiva normal, no discharge. [] Neck: Normal range of motion, no tenderness, supple, no stridor. [] Cardiovascular: Tachycardic Lungs & Thorax: Bilateral breath sounds clear to auscultation [] Abdomen: 2 J-tube and 1 G-tube in the abdomen bowel sounds normal, soft, no tenderness, no masses, no pulsatile masses. [] Skin: Warm, dry, no erythema, no rash. [] Back: No tenderness, no CVA tenderness. [] Extremities: No tenderness, no cyanosis, no clubbing, ROM intact, no edema. [] Neurologic: Alert and oriented X 3, normal motor function, normal sensory fu nction, no focal deficits noted. [] Psychologic: Affect normal, judgement normal, mood normal. [] Current Patient Data: Vital Signs: Vital Signs Date Time Temp Pulse Resp B/P (MAP) Pulse Ox O2 Delivery O2 Flow Rate FiO2 02/28/21 11:50 98.7 95 18 150/112 (125) 100 Room Air 98.7 EKG: EKG: [] Radiology/Procedures: Radiology/Procedures: [] Course & Med Decision Making: Course & Med Decision Making Pertinent Labs and Imaging studies reviewed. (See chart for details) This is a 30-year-old female patient presented to the ED today complaining of fever, fatigue, nausea and vomiting, symptoms began on last week. She had a central line placed at [facility] on last week for TPN feedings. She seen in the ED yesterday and was discharged with a negative work-up. Vitals on arrival to the ED temperature 98.7, blood pressure 150/112, heart rate 95, respiration 100% on room air, O2 sats 18. CBC with a WBC of 2.9, hemoglobin 10.9 with hematocrit of 32.0. Patient will be admitted to the hospital Spoke with Dr. Blue who accepted patient for admission Routine consult placed for Dr. Santana and infectious disease Pooja Disclaimer: Pooja Disclaimer: This electronic medical record was generated, in whole or in part, using a voice recognition dictation system. Departure Departure Impression: Primary Impression: Intractable nausea and vomiting Additional Impression: Fever Qualified Codes: R50.9 - Fever, unspecified Disposition: ADMITTED INPATIENT Condition: STABLE Referrals: ARASH UYN NP (PCP) HEYDI MORRIS [employer] Feb 28, 2021 13:04
[2021-02-28 13:11] LABS: BASO % 0 % (0-3); EOS % 0 % (0-3); HEMOGLOBIN 10.9 g/dL (12.0-15.5); LYMPH # 0.5 x10^3/uL (1.0-4.8); LYMPH % 17 % (24-48); MEAN CORPUSCULAR HEMOGLOBIN 31 pg (25-35); MEAN CORPUSCULAR HGB CONC 34 g/dL (31-37); MEAN CORPUSCULAR VOLUME 91 fL (79-100); MONO # 0.2 x10^3/uL (0.0-1.1); MONO % 7 % (0-9); NEUT # 2.2 x10^3/uL (1.8-7.7); NEUT % 76 % (31-73); PLATELET COUNT 75 x10^3/uL (140-400); RED CELL DISTRIBUTION WIDTH 13.6 % (11.5-14.5); WHITE BLOOD COUNT 2.9 x10^3/uL (4.0-11.0)
[2021-02-28 13:21] LABS: CALCIUM 8.6 mg/dL (8.5-10.1); CREATININE 0.6 mg/dL (0.6-1.0); POTASSIUM 4.3 mmol/L (3.5-5.1)
[2021-02-28 13:27] LABS: ALBUMIN 3.4 g/dL (3.4-5.0); TOTAL BILIRUBIN 0.3 mg/dL (0.2-1.0); TOTAL PROTEIN 6.8 g/dL (6.4-8.2)
--- NOTE | 2021-02-28 14:43 | PDOC1 ---
History and Physical Date of Service: DOS: DATE: 02/28/21 TIME: 14:33 Chief Complaint: Chief Complain: Fever History of Present Illness: HPI: History obtained from discussion with the ED physician and chart review 20 year old female with history of CVA, depression, hypertension, migraine headaches, gastroparesis with 2J tubes, 1 G-tube, on TPN through central line who presents the ED today complaining of nausea, vomiting, fevers, fatigue, symptoms began on last week. Patient states she had a central line placed on Tuesday last week at [facility]. She states the mother called Dr. Santana today and was asked return her to the ED. She was in the ED yesterday and was evaluated for similar symptoms. She states her temperature last night was 102.7. She states she has taken 3000 mg of Tylenol since 10 PM yesterday. Past Medical/Surgical History: PMH/PSH: Past Medical History: Asthma, DVT, GERD, Hypertension, Migraines, MRSA, GASTROPORESIS,RESP.FAILURE, SLEEP APNEA Past Surgical History: X 2 J-TUBES,G-TUBE,LEFT CHEST PORT Allergies: Allergies: Coded Allergies: iron (Verified Allergy, Severe, Anaphylaxis, 01/16/21) Penicillins (Verified Allergy, Intermediate, LIGHT RASH CHILD, 01/16/21) TOLERATES ZOSYN Sulfa (Sulfonamide Antibiotics) (Verified Allergy, Intermediate, 01/16/21) I S O L A T I O N *CONTACT* (Verified Allergy, Unknown, 11/17/20) mrsa Family History: Family History: Reviewed with no relevant findings Social History: Social History: Smoking Status: Never Smoker Alcohol Use: None Drug Use: None Current Medications: Current Medications Current Medications Sodium Chloride 1,000 ml @ 1,000 mls/hr 1X ONCE IV Last administered on 02/28/21at 13:16; Start 02/28/21 at 12:30; Stop 02/28/21 at 13:29; Status DC Ondansetron HCl (Zofran) 4 mg 1X ONCE IVP Last administered on 02/28/21at 13:17; Start 02/28/21 at 12:30; Stop 02/28/21 at 12:31; Status DC Hydromorphone HCl (Dilaudid) 1 mg 1X ONCE IVP Last administered on 02/28/21at 13:17; Start 02/28/21 at 12:30; Stop 02/28/21 at 12:31; Status DC Active Scripts Active Transderm-Scop (Scopolamine) 1 Each Patch.td72 1 Patch TP Q3DAYS Cefdinir 300 Mg Capsule 1 Cap PO BID 14 Days Cefdinir 300 Mg Capsule 1 Cap PO BID 14 Days [Tpn Per Pharmacy] 1 EACH Each 1 Each MC PRN DAILY PRN 30 Days Ondansetron Hcl 4 Mg/2 Ml Vial (Ondansetron Hcl/Pf) 4 Mg/2 Ml Vial 4 Mg IVP PRN Q6HRS PRN 30 Days Bisacodyl 10 Mg Supp.rect 10 Mg FL PRN DAILY PRN 30 Days Reported Valproic Acid (Valproate Sodium) 500 Mg/10 Ml Solution 500 Mg JT BID Metoprolol Tartrate 75 Mg Tablet 25 Mg PO BID Transderm-Scop (Scopolamine) 1 Each Patch.td72 1 Patch TP Q3DAYS Levbid (Hyoscyamine Sulfate) 0.375 Mg Tab.er.12h 0.375 Mg JT BID Famotidine 40 Mg Tablet 40 Mg IV DAILY Spiriva (Tiotropium [place]) 18 Mcg Cap.w.dev 2 Inh IH BID Breo Ellipta 200-25 Mcg INH (Fluticasone/Vilanterol) 1 Each Blst.w.dev 1 Puff IH BID [Tpn Per Pharmacy] 1 Ea IV UD Hydrocodone-Apap 5-325 (Hydrocodone Bit/Acetaminophen) 1 Tab Tablet 1 Tab JT PRN Q6HRS PRN Tramadol HCl ER (Tramadol HCl) 100 Mg Cpbp.25.75 100 Mg JT BID Docusate Sodium 100 Mg Capsule 1 Cap PO DAILY 30 Days Ajovy Autoinjector (Fremanezumab-Vfrm) 225 Mg/1.5 Ml Auto.injct 225 Mg SQ QMONTH Tizanidine Hcl 2 Mg Capsule 2 Mg JT Q8HRS PRN Gabapentin 600 Mg Tablet 300 Mg JT TID Midodrine Hcl 5 Mg Tablet 5 Mg SL BID Milk Of Magnesia (Magnesium Hydroxide) 400 Mg/5 Ml Oral.susp 400 Mg JT PRN DAILY MDD 400mg Mirtazapine 30 Mg Tab.rapdis 45 Mg PO QHS 30 Days Olopatadine HCl 5 Ml Drops 0.1 % OP PRN DAILY PRN Vitamin D3 (Cholecalciferol (Vitamin D3)) 4,000 Unit Capsule 2,000 Unit JT HS Xyzal (Levocetirizine Dihydrochloride) 5 Mg Tablet 10 Mg GT BID Proair Hfa (Albuterol Sulfate) 8.5 Gm Hfa.aer.ad 2 Puff IH PRN Q4-6HRS PRN 21 Days Ipratropium [place] 30 Ml [place] 1 [place] NS BID Duoneb 0.5-3(2.5) Mg/3 Ml (Albuterol/Ipratropium) 3 Ml Ampul.neb 3 Ml NEB PRN QID PRN Montelukast Sodium Tablet (Montelukast Sodium) 10 Mg Tablet 10 Mg PO DAILY PRN Multi Vitamin Daily (Multivitamin) 1 Each Tablet 1 Each GT DAILY ROS: Review of Systems Review of System REVIEW OF SYSTEMS: GENERAL: Denies weakness SKIN: No bruising, hair changes or rashes. EYES: No blurred, double or loss of vision. NOSE AND THROAT: No history of nosebleeds, hoarseness or sore throat. HEART: No history of palpitations, chest pain or shortness of breath on exertion. LUNGS: Denies cough, hemoptysis, wheezing or shortness of breath. GASTROINTESTINAL: Denies changes in appetite, nausea, vomiting, diarrhea or constipation. GENITOURINARY: No history of frequency, urgency, hesitancy or nocturia. NEUROLOGIC: Denies history of numbness, tingling, or tremor. PSYCHIATRIC: No history of panic, anxiety or depression. ENDOCRINE: No history of heat or cold intolerance, polyuria or polydipsia. EXTREMITIES: Denies joint pain, pain on walking or stiffness. Physical Exam: Vital Signs: Vital Signs Date Time Temp Pulse Resp B/P (MAP) Pulse Ox O2 Delivery O2 Flow Rate FiO2 02/28/21 13:17 16 98 02/28/21 11:50 98.7 95 150/112 (125) Room Air 98.7 Physcial Exam: General: Well developed, well nourished, no acute distress, well appearing HEENT: Pupils equally round and reactive to light, EOMI, no discharge, normal conjunctiva Neck: Supple, no nuchal rigidity, no JVD, trachea midline, no tenderness Cardiac: RRR, no murmurs, no gallops, no rubs Chest/Lungs: CTAB, no wheeze, no rhonchi, no crackles. Left subclavian line appears to be clear dry and intact Abdomen: soft, non-distended, no guarding, no peritoneal signs, 2 J-tube and 1 G-tube in the abdomen with no obvious signs of infection or purulence. Back: No tenderness Extremities: no edema, pulses intact, non-tender,capillary refill <3 sec bilate ral upper and lower extremities, Neuro: Alert and oriented x 4, no focal deficits, normal speech Labs: Labs: Laboratory Tests Test 02/28/21 12:55 White Blood Count 2.9 x10^3/uL (4.0-11.0) Red Blood Count 3.50 x10^6/uL (3.50-5.40) Hemoglobin 10.9 g/dL (12.0-15.5) Hematocrit 32.0 % (36.0-47.0) Mean Corpuscular Volume 91 fL (79-100) Mean Corpuscular Hemoglobin 31 pg (25-35) Mean Corpuscular Hemoglobin Concent 34 g/dL (31-37) Red Cell Distribution Width 13.6 % (11.5-14.5) Platelet Count 75 x10^3/uL (140-400) Neutrophils (%) (Auto) 76 % (31-73) Lymphocytes (%) (Auto) 17 % (24-48) Monocytes (%) (Auto) 7 % (0-9) Eosinophils (%) (Auto) 0 % (0-3) Basophils (%) (Auto) 0 % (0-3) Neutrophils # (Auto) 2.2 x10^3/uL (1.8-7.7) Lymphocytes # (Auto) 0.5 x10^3/uL (1.0-4.8) Monocytes # (Auto) 0.2 x10^3/uL (0.0-1.1) Eosinophils # (Auto) 0.0 x10^3/uL (0.0-0.7) Basophils # (Auto) 0.0 x10^3/uL (0.0-0.2) Sodium Level 139 mmol/L (136-145) Potassium Level 4.3 mmol/L (3.5-5.1) Chloride Level 105 mmol/L (98-107) Carbon Dioxide Level 25 mmol/L (21-32) Anion Gap 9 (6-14) Blood Urea Nitrogen 12 mg/dL (7-20) Creatinine 0.6 mg/dL (0.6-1.0) Estimated GFR (Cockcroft-Gault) 125.0 BUN/Creatinine Ratio 20 (6-20) Glucose Level 93 mg/dL (70-99) Calcium Level 8.6 mg/dL (8.5-10.1) Total Bilirubin 0.3 mg/dL (0.2-1.0) Aspartate Amino Transf (AST/SGOT) 20 U/L (15-37) Alanine Aminotransferase (ALT/SGPT) 19 U/L (14-59) Alkaline Phosphatase 113 U/L (46-116) Total Protein 6.8 g/dL (6.4-8.2) Albumin 3.4 g/dL (3.4-5.0) Albumin/Globulin Ratio 1.0 (1.0-1.7) Lipase 42 U/L (73-393) SARS-CoV-2 Antigen (Rapid) Negative (NEGATIVE) Laboratory Tests Test 02/28/21 12:55 White Blood Count 2.9 x10^3/uL (4.0-11.0) Red Blood Count 3.50 x10^6/uL (3.50-5.40) Hemoglobin 10.9 g/dL (12.0-15.5) Hematocrit 32.0 % (36.0-47.0) Mean Corpuscular Volume 91 fL (79-100) Mean Corpuscular Hemoglobin 31 pg (25-35) Mean Corpuscular Hemoglobin Concent 34 g/dL (31-37) Red Cell Distribution Width 13.6 % (11.5-14.5) Platelet Count 75 x10^3/uL (140-400) Neutrophils (%) (Auto) 76 % (31-73) Lymphocytes (%) (Auto) 17 % (24-48) Monocytes (%) (Auto) 7 % (0-9) Eosinophils (%) (Auto) 0 % (0-3) Basophils (%) (Auto) 0 % (0-3) Neutrophils # (Auto) 2.2 x10^3/uL (1.8-7.7) Lymphocytes # (Auto) 0.5 x10^3/uL (1.0-4.8) Monocytes # (Auto) 0.2 x10^3/uL (0.0-1.1) Eosinophils # (Auto) 0.0 x10^3/uL (0.0-0.7) Basophils # (Auto) 0.0 x10^3/uL (0.0-0.2) Sodium Level 139 mmol/L (136-145) Potassium Level 4.3 mmol/L (3.5-5.1) Chloride Level 105 mmol/L (98-107) Carbon Dioxide Level 25 mmol/L (21-32) Anion Gap 9 (6-14) Blood Urea Nitrogen 12 mg/dL (7-20) Creatinine 0.6 mg/dL (0.6-1.0) Estimated GFR (Cockcroft-Gault) 125.0 BUN/Creatinine Ratio 20 (6-20) Glucose Level 93 mg/dL (70-99) Calcium Level 8.6 mg/dL (8.5-10.1) Total Bilirubin 0.3 mg/dL (0.2-1.0) Aspartate Amino Transf (AST/SGOT) 20 U/L (15-37) Alanine Aminotransferase (ALT/SGPT) 19 U/L (14-59) Alkaline Phosphatase 113 U/L (46-116) Total Protein 6.8 g/dL (6.4-8.2) Albumin 3.4 g/dL (3.4-5.0) Albumin/Globulin Ratio 1.0 (1.0-1.7) Lipase 42 U/L (73-393) SARS-CoV-2 Antigen (Rapid) Negative (NEGATIVE) Images: Images No recent images to review Assessment/Plan Assessment/Plan Acute fever of unknown origin Lymphopenia Thrombocytopenia, which appears to be decreased from November 2020 Hx of UTI at with Citrobacter and Stenotrophomonas Postoperative jejunostomy tube placement 11/17/2020 -ex lap, abdominal washout J- tube placement. chronically on TPN Severe malnutrition History of hypotension Idiopathic autonomic neuropathy Severe gastroparesis (seen at the [facility] and ) chronically on TPN Cyclic vomiting syndrome GERD Pelvic floor dyssynergia (s/p therapy) s/p cholecystectomy. Admit to hospitalist service for management Continue empiric IV antibiotics ID consult General surgery consult Lovenox for DVT prophylaxis NPO CODE STATUS FULL Discussed with RN and SW Disposition pending ID and surgery evaluation DPOA: mother Justifications for Admission Other Justification DESIREE MCCALL MD Feb 28, 2021 14:43
[2021-02-28] MEDS ORDERED: DEXTROSE 50% 25 GM / 50ML DISP.SYRIN. IV PRN (14:45)
[2021-02-28] MEDS ORDERED: DOCUSATE SODIUM 100 MG CAPSULE. PO PRN (14:45)
[2021-02-28] MEDS ORDERED: ACETAMINOPHEN 325 MG TABLET. PO PRN (14:45)
[2021-02-28] MEDS ORDERED: HYDROcodone/APAP 5/325MG 1 TAB TABLET PO PRN (14:45)
[2021-02-28] MEDS: IV NORMAL SALINE 1000ML BAG 1,000 ML IV ONE ×2 (14:45→23:32)
[2021-02-28] MEDS ORDERED: ZOLPIDEM 5 MG TABLET. PO PRN (14:45)
[2021-02-28] MEDS ORDERED: LORazepam 0.5 MG TABLET PO PRN (14:45)
[2021-02-28] MEDS ORDERED: SENNOSIDES 8.6 MG TABLET PO PRN (14:45)
[2021-02-28 15:30] VITALS: BP 109/52
[2021-02-28] MEDS: MORPHINE SULFATE 2 MG/ML INJ. IV PRN ×2 (16:24→17:25)
[2021-02-28] MEDS: ONDANSETRON PF 4 MG/2 ML VIAL. IVP PRN (17:24)
[2021-02-28 19:00] VITALS: BP 118/68
[2021-02-28] MEDS: MORPHINE SULFATE 2 MG/ML INJ. IVP PRN ×2 (20:57→23:33)
[2021-02-28 23:54] VITALS: BP 114/66
[2021-03-01] MEDS: MORPHINE SULFATE 2 MG/ML INJ. IVP PRN ×3 (02:31→08:38)
[2021-03-01 03:26] VITALS: BP 112/75
[2021-03-01 06:55] VITALS: BP 113/72
[2021-03-01 08:07] LABS: BASO % 0 % (0-3); EOS % 0 % (0-3); HEMATOCRIT 29.2 % (36.0-47.0); HEMOGLOBIN 10.1 g/dL (12.0-15.5); LYMPH # 0.7 x10^3/uL (1.0-4.8); LYMPH % 17 % (24-48); MEAN CORPUSCULAR HEMOGLOBIN 32 pg (25-35); MEAN CORPUSCULAR HGB CONC 35 g/dL (31-37); MEAN CORPUSCULAR VOLUME 91 fL (79-100); MONO # 0.4 x10^3/uL (0.0-1.1); MONO % 11 % (0-9); NEUT # 2.7 x10^3/uL (1.8-7.7); NEUT % 72 % (31-73); PLATELET COUNT 75 x10^3/uL (140-400); RED CELL DISTRIBUTION WIDTH 13.4 % (11.5-14.5); WHITE BLOOD COUNT 3.8 x10^3/uL (4.0-11.0)
[2021-03-01 08:35] LABS: ALBUMIN 2.8 g/dL (3.4-5.0); ALBUMIN/GLOBULIN RATIO 0.9 (1.0-1.7); CALCIUM 7.8 mg/dL (8.5-10.1); CREATININE 0.6 mg/dL (0.6-1.0); POTASSIUM 3.4 mmol/L (3.5-5.1); TOTAL BILIRUBIN 0.2 mg/dL (0.2-1.0); TOTAL PROTEIN 5.8 g/dL (6.4-8.2)
[2021-03-01] MEDS: ONDANSETRON PF 4 MG/2 ML VIAL. IVP PRN ×2 (08:38→18:02)
[2021-03-01] MEDS: MICAFUNGIN 100 MG in IV DEXTROSE 5% 100ML 100 ML IV SCH (08:48)
[2021-03-01 08:52] LABS: MAGNESIUM 1.6 mg/dL (1.8-2.4); PHOSPHORUS 4.2 mg/dL (2.6-4.7)
--- NOTE | 2021-03-01 09:29 | PDOC2 ---
CONSULT Date of Consult Date of Consult DATE: 03/01/21 TIME: 09:17 Reason for Consult Reason for Consult: Sepsis possible line infection Referring Physician Referring Physician: Dr. Blue Identification/Chief Complaint Chief Complaint Nausea vomiting History of Present Illness Reason for Visit: is a 20 year old female well-known to our service from previous admission with history of migraine, depression, hypertension, gastroparesis, G- tube on TPN through central line which was placed at around February 20 .Patient presented with complaints of fever, fatigue, nausea, vomiting which started around 02/24/2021. He had prolonged hospitalization last summer here at [facility]. She underwent G-tube insertion by Dr. Mohr at the end of October 2020. In ED labs revealed leukopenia. T-max here was 99 F. Temperature at home was 102. Blood cultures were done. Patient is currently not on any antibiotics. Patient was not on any antibiotics prior to admission. Patient had multiple ED visits at [facility] prior to presentation here at [facility]. Chest x-ray was negative for any acute infiltrate. Blood cultures from ER yesterday are positive for yeast. I started patient on micafungin this morning. IR to remove central line and send cath tip for cultures. ID consultation has been requested for antibiotic management. Today patient continues to have low-grade fever, nausea, vomiting. Past Medical History Cardiovascular: HTN Pulmonary: No pertinent hx CENTRAL NERVOUS SYSTEM: Other GI: GERD, Other Heme/Onc: No pertinent hx Psych: Other Musculoskeletal: Other Rheumatologic: No pertinent hx Infectious disease: Other Renal/: UTI Endocrine: No pertinent hx Past Surgical History Past Surgical History: Other Family History Family History: Hypertension, Family History Unknown Social History ALCOHOL: none Drugs: None Lives: with Family Current Problem List Problem List Problems Medical Problems: (1) Fever Status: Acute (2) Intractable nausea and vomiting Status: Acute Current Medications Current Medications Current Medications Sodium Chloride 1,000 ml @ 1,000 mls/hr 1X ONCE IV Last administered on 02/28/21at 13:16; Start 02/28/21 at 12:30; Stop 02/28/21 at 13:29; Status DC Ondansetron HCl (Zofran) 4 mg 1X ONCE IVP Last administered on 02/28/21at 13:17; Start 02/28/21 at 12:30; Stop 02/28/21 at 12:31; Status DC Hydromorphone HCl (Dilaudid) 1 mg 1X ONCE IVP Last administered on 02/28/21at 13:17; Start 02/28/21 at 12:30; Stop 02/28/21 at 12:31; Status DC Ondansetron HCl (Zofran) 4 mg PRN Q8HRS PRN IVP NAUSEA/VOMITING Last administered on 03/01/21at 08:38; Start 02/28/21 at 14:45; Stop 03/01/21 at 14:44 Sodium Chloride 1,000 ml @ 100 mls/hr 1X ONCE IV Last administered on 02/28/21at 23:32; Start 02/28/21 at 14:45; Stop 03/01/21 at 00:44; Status DC Sennosides (Senna) 17.2 mg PRN BID PRN PO CONSTIPATION; Start 02/28/21 at 14:45 Docusate Sodium (Colace) 100 mg PRN DAILY PRN PO HARD STOOLS; Start 02/28/21 at 14:45 Ondansetron HCl (Zofran) 4 mg PRN Q6HRS PRN IVP NAUSEA/VOMITING; Start 02/28/21 at 14:45 Dextrose (Dextrose 50%-Water Syringe) 12.5 gm PRN Q15MIN PRN IV SEE COMMENTS; Start 02/28/21 at 14:45 Acetaminophen (Tylenol) 650 mg PRN Q4HRS PRN PO TEMP OVER 100.4F OR MILD PAIN; Start 02/28/21 at 14:45 Lorazepam (Ativan) 0.5 mg PRN Q6HRS PRN PO ANXIETY / AGITATION; Start 02/28/21 at 14:45 Lorazepam (Ativan Inj) 0.25 mg PRN Q4HRS PRN IV ANXIETY / AGITATION; Start 02/28/21 at 14:45 Acetaminophen/ Hydrocodone Bitart (Lortab 5/325) 1 tab PRN Q4HRS PRN PO MODERATE - SEVERE PAIN; Start 02/28/21 at 14:45 Morphine Sulfate (Morphine Sulfate) 1 mg PRN Q1HR PRN IV PAIN Last administered on 02/28/21at 17:25; Start 02/28/21 at 14:45 Morphine Sulfate (Morphine Sulfate) 2 mg PRN Q2HR PRN IVP SEVERE PAIN 7-10 Last administered on 03/01/21at 08:38; Start 02/28/21 at 14:45; Stop 03/01/21 at 14:44 Prochlorperazine Edisylate (Compazine) 10 mg PRN Q6HRS PRN IV NAUSEA/VOMITING, 2ND CHOICE; Start 02/28/21 at 14:45 Zolpidem Tartrate (Ambien) 2.5 mg PRN QHS PRN PO INSOMNIA; Start 02/28/21 at 14:45 Micafungin Sodium 100 mg/Dextrose 100 ml @ 100 mls/hr Q24H IV Last administered on 03/01/21at 08:48; Start 03/01/21 at 09:00 Active Scripts Active Transderm-Scop (Scopolamine) 1 Each Patch.td72 1 Patch TP Q3DAYS Cefdinir 300 Mg Capsule 1 Cap PO BID 14 Days Cefdinir 300 Mg Capsule 1 Cap PO BID 14 Days [Tpn Per Pharmacy] 1 EACH Each 1 Each MC PRN DAILY PRN 30 Days Ondansetron Hcl 4 Mg/2 Ml Vial (Ondansetron Hcl/Pf) 4 Mg/2 Ml Vial 4 Mg IVP PRN Q6HRS PRN 30 Days Bisacodyl 10 Mg Supp.rect 10 Mg PA PRN DAILY PRN 30 Days Reported Valproic Acid (Valproate Sodium) 500 Mg/10 Ml Solution 500 Mg JT BID Metoprolol Tartrate 75 Mg Tablet 25 Mg PO BID Transderm-Scop (Scopolamine) 1 Each Patch.td72 1 Patch TP Q3DAYS Levbid (Hyoscyamine Sulfate) 0.375 Mg Tab.er.12h 0.375 Mg JT BID Famotidine 40 Mg Tablet 40 Mg IV DAILY Spiriva (Tiotropium Zalma) 18 Mcg Cap.w.dev 2 Inh IH BID Breo Ellipta 200-25 Mcg INH (Fluticasone/Vilanterol) 1 Each Blst.w.dev 1 Puff IH BID [Tpn Per Pharmacy] 1 Ea IV UD Hydrocodone-Apap 5-325 (Hydrocodone Bit/Acetaminophen) 1 Tab Tablet 1 Tab JT PRN Q6HRS PRN Tramadol HCl ER (Tramadol HCl) 100 Mg Cpbp.25.75 100 Mg JT BID Docusate Sodium 100 Mg Capsule 1 Cap PO DAILY 30 Days Ajovy Autoinjector (Fremanezumab-Vfrm) 225 Mg/1.5 Ml Auto.injct 225 Mg SQ QMONTH Tizanidine Hcl 2 Mg Capsule 2 Mg JT Q8HRS PRN Gabapentin 600 Mg Tablet 300 Mg JT TID Midodrine Hcl 5 Mg Tablet 5 Mg SL BID Milk Of Magnesia (Magnesium Hydroxide) 400 Mg/5 Ml Oral.susp 400 Mg JT PRN DAILY MDD 400mg Mirtazapine 30 Mg Tab.rapdis 45 Mg PO QHS 30 Days Olopatadine HCl 5 Ml Drops 0.1 % OP PRN DAILY PRN Vitamin D3 (Cholecalciferol (Vitamin D3)) 4,000 Unit Capsule 2,000 Unit JT HS Xyzal (Levocetirizine Dihydrochloride) 5 Mg Tablet 10 Mg GT BID Proair Hfa (Albuterol Sulfate) 8.5 Gm Hfa.aer.ad 2 Puff IH PRN Q4-6HRS PRN 21 Days Ipratropium Zalma 30 Ml Camden 1 Camden NS BID Duoneb 0.5-3(2.5) Mg/3 Ml (Albuterol/Ipratropium) 3 Ml Ampul.neb 3 Ml NEB PRN QID PRN Montelukast Sodium Tablet (Montelukast Sodium) 10 Mg Tablet 10 Mg PO DAILY PRN Multi Vitamin Daily (Multivitamin) 1 Each Tablet 1 Each GT DAILY Allergies Allergies: Coded Allergies: iron (Verified Allergy, Severe, Anaphylaxis, 01/16/21) Penicillins (Verified Allergy, Intermediate, LIGHT RASH CHILD, 01/16/21) TOLERATES ZOSYN Sulfa (Sulfonamide Antibiotics) (Verified Allergy, Intermediate, 01/16/21) I S O L A T I O N *CONTACT* (Verified Allergy, Unknown, 11/17/20) mrsa ROS Review of System Denies shortness of breath, diarrhea, abdominal pain, rash Denies any headache, sore throat, symptoms, Vitals VITALS Vital Signs Date Time Temp Pulse Resp B/P (MAP) Pulse Ox O2 Delivery O2 Flow Rate FiO2 03/01/21 09:15 Room Air 03/01/21 06:55 99.7 69 16 113/72 (86) 96 99.7 Labs Labs Laboratory Tests Test 02/28/21 12:55 03/01/21 06:45 White Blood Count 2.9 x10^3/uL (4.0-11.0) 3.8 x10^3/uL (4.0-11.0) Red Blood Count 3.50 x10^6/uL (3.50-5.40) 3.20 x10^6/uL (3.50-5.40) Hemoglobin 10.9 g/dL (12.0-15.5) 10.1 g/dL (12.0-15.5) Hematocrit 32.0 % (36.0-47.0) 29.2 % (36.0-47.0) Mean Corpuscular Volume 91 fL (79-100) 91 fL (79-100) Mean Corpuscular Hemoglobin 31 pg (25-35) 32 pg (25-35) Mean Corpuscular Hemoglobin Concent 34 g/dL (31-37) 35 g/dL (31-37) Red Cell Distribution Width 13.6 % (11.5-14.5) 13.4 % (11.5-14.5) Platelet Count 75 x10^3/uL (140-400) 75 x10^3/uL (140-400) Neutrophils (%) (Auto) 76 % (31-73) 72 % (31-73) Lymphocytes (%) (Auto) 17 % (24-48) 17 % (24-48) Monocytes (%) (Auto) 7 % (0-9) 11 % (0-9) Eosinophils (%) (Auto) 0 % (0-3) 0 % (0-3) Basophils (%) (Auto) 0 % (0-3) 0 % (0-3) Neutrophils # (Auto) 2.2 x10^3/uL (1.8-7.7) 2.7 x10^3/uL (1.8-7.7) Lymphocytes # (Auto) 0.5 x10^3/uL (1.0-4.8) 0.7 x10^3/uL (1.0-4.8) Monocytes # (Auto) 0.2 x10^3/uL (0.0-1.1) 0.4 x10^3/uL (0.0-1.1) Eosinophils # (Auto) 0.0 x10^3/uL (0.0-0.7) 0.0 x10^3/uL (0.0-0.7) Basophils # (Auto) 0.0 x10^3/uL (0.0-0.2) 0.0 x10^3/uL (0.0-0.2) Sodium Level 139 mmol/L (136-145) 138 mmol/L (136-145) Potassium Level 4.3 mmol/L (3.5-5.1) 3.4 mmol/L (3.5-5.1) Chloride Level 105 mmol/L (98-107) 105 mmol/L (98-107) Carbon Dioxide Level 25 mmol/L (21-32) 23 mmol/L (21-32) Anion Gap 9 (6-14) 10 (6-14) Blood Urea Nitrogen 12 mg/dL (7-20) 7 mg/dL (7-20) Creatinine 0.6 mg/dL (0.6-1.0) 0.6 mg/dL (0.6-1.0) Estimated GFR (Cockcroft-Gault) 125.0 125.0 BUN/Creatinine Ratio 20 (6-20) 12 (6-20) Glucose Level 93 mg/dL (70-99) 80 mg/dL (70-99) Calcium Level 8.6 mg/dL (8.5-10.1) 7.8 mg/dL (8.5-10.1) Total Bilirubin 0.3 mg/dL (0.2-1.0) 0.2 mg/dL (0.2-1.0) Aspartate Amino Transf (AST/SGOT) 20 U/L (15-37) 11 U/L (15-37) Alanine Aminotransferase (ALT/SGPT) 19 U/L (14-59) 18 U/L (14-59) Alkaline Phosphatase 113 U/L (46-116) 92 U/L (46-116) Total Protein 6.8 g/dL (6.4-8.2) 5.8 g/dL (6.4-8.2) Albumin 3.4 g/dL (3.4-5.0) 2.8 g/dL (3.4-5.0) Albumin/Globulin Ratio 1.0 (1.0-1.7) 0.9 (1.0-1.7) Lipase 42 U/L (73-393) SARS-CoV-2 Antigen (Rapid) Negative (NEGATIVE) Phosphorus Level 4.2 mg/dL (2.6-4.7) Magnesium Level 1.6 mg/dL (1.8-2.4) Laboratory Tests Test 02/28/21 12:55 03/01/21 06:45 White Blood Count 2.9 x10^3/uL (4.0-11.0) 3.8 x10^3/uL (4.0-11.0) Red Blood Count 3.50 x10^6/uL (3.50-5.40) 3.20 x10^6/uL (3.50-5.40) Hemoglobin 10.9 g/dL (12.0-15.5) 10.1 g/dL (12.0-15.5) Hematocrit 32.0 % (36.0-47.0) 29.2 % (36.0-47.0) Mean Corpuscular Volume 91 fL (79-100) 91 fL (79-100) Mean Corpuscular Hemoglobin 31 pg (25-35) 32 pg (25-35) Mean Corpuscular Hemoglobin Concent 34 g/dL (31-37) 35 g/dL (31-37) Red Cell Distribution Width 13.6 % (11.5-14.5) 13.4 % (11.5-14.5) Platelet Count 75 x10^3/uL (140-400) 75 x10^3/uL (140-400) Neutrophils (%) (Auto) 76 % (31-73) 72 % (31-73) Lymphocytes (%) (Auto) 17 % (24-48) 17 % (24-48) Monocytes (%) (Auto) 7 % (0-9) 11 % (0-9) Eosinophils (%) (Auto) 0 % (0-3) 0 % (0-3) Basophils (%) (Auto) 0 % (0-3) 0 % (0-3) Neutrophils # (Auto) 2.2 x10^3/uL (1.8-7.7) 2.7 x10^3/uL (1.8-7.7) Lymphocytes # (Auto) 0.5 x10^3/uL (1.0-4.8) 0.7 x10^3/uL (1.0-4.8) Monocytes # (Auto) 0.2 x10^3/uL (0.0-1.1) 0.4 x10^3/uL (0.0-1.1) Eosinophils # (Auto) 0.0 x10^3/uL (0.0-0.7) 0.0 x10^3/uL (0.0-0.7) Basophils # (Auto) 0.0 x10^3/uL (0.0-0.2) 0.0 x10^3/uL (0.0-0.2) Sodium Level 139 mmol/L (136-145) 138 mmol/L (136-145) Potassium Level 4.3 mmol/L (3.5-5.1) 3.4 mmol/L (3.5-5.1) Chloride Level 105 mmol/L (98-107) 105 mmol/L (98-107) Carbon Dioxide Level 25 mmol/L (21-32) 23 mmol/L (21-32) Anion Gap 9 (6-14) 10 (6-14) Blood Urea Nitrogen 12 mg/dL (7-20) 7 mg/dL (7-20) Creatinine 0.6 mg/dL (0.6-1.0) 0.6 mg/dL (0.6-1.0) Estimated GFR (Cockcroft-Gault) 125.0 125.0 BUN/Creatinine Ratio 20 (6-20) 12 (6-20) Glucose Level 93 mg/dL (70-99) 80 mg/dL (70-99) Calcium Level 8.6 mg/dL (8.5-10.1) 7.8 mg/dL (8.5-10.1) Total Bilirubin 0.3 mg/dL (0.2-1.0) 0.2 mg/dL (0.2-1.0) Aspartate Amino Transf (AST/SGOT) 20 U/L (15-37) 11 U/L (15-37) Alanine Aminotransferase (ALT/SGPT) 19 U/L (14-59) 18 U/L (14-59) Alkaline Phosphatase 113 U/L (46-116) 92 U/L (46-116) Total Protein 6.8 g/dL (6.4-8.2) 5.8 g/dL (6.4-8.2) Albumin 3.4 g/dL (3.4-5.0) 2.8 g/dL (3.4-5.0) Albumin/Globulin Ratio 1.0 (1.0-1.7) 0.9 (1.0-1.7) Lipase 42 U/L (73-393) SARS-CoV-2 Antigen (Rapid) Negative (NEGATIVE) Phosphorus Level 4.2 mg/dL (2.6-4.7) Magnesium Level 1.6 mg/dL (1.8-2.4) Assessment/Plan Assessment/Plan Sepsis present on admission Fungemia 1 out of 4 bottles present on admission, likely central line associated bloodstream infection Nausea and vomiting Gastroparesis on TPN G-tube placement October 2020 History of migraine History of hypertension History of CVA History of multiple line infection Allergies to penicillin, sulfa Recommendations Start IV micafungin Consult IR to remove central line, send central line cath tip for cultures Repeat blood cultures March 03, 2021 Follow-up blood cultures from [facility] Maintain aspiration precaution Monitor labs and cultures Continue supportive care Pain management per primary Thank you Dr. Blue for consulting infectious disease reports been in this patient's care. We will follow along with you. Discussed with nursing staff. GAYLE RODRIGUEZ MD Mar 01, 2021 09:29
[2021-03-01] MEDS: IV NORMAL SALINE 1000ML BAG 1,000 ML IV SCH (09:45)
[2021-03-01] MEDS ORDERED: NALOXONE 0.4 MG/ML VIAL. IV PRN (09:45)
[2021-03-01 11:00] VITALS: BP 121/71
[2021-03-01] MEDS ORDERED: METOCLOPRAMIDE 10 MG TABLET. PO ONE (11:30)
[2021-03-01] MEDS ORDERED: METOCLOPRAMIDE HCL 10 MG/2 ML VIAL. IVP ONE (12:00)
[2021-03-01 15:00] VITALS: BP 115/70
--- NOTE | 2021-03-01 15:12 | PDOC ---
GENERAL General: Patient examined chart reviewed today's hospital day 1 for this patient who is well-known to our service I have personally met her on several occasions admitted with fungemia that appears to be derived from her Port-A-Cath. We appreciate infectious diseases input. Interventional radiology is consulted to remove the Port-A-Cath and send for culture. Patient asked for change to fentanyl due to increased nausea with the other narcotics. We have her on a fentanyl PROTOTYPE ENGINEER at this point. She understands the risks in combination with other sedating medications like Benadryl. Her gastroparesis physician Dr. Santana has cleared the use of Benadryl with the fentanyl PROTOTYPE ENGINEER. 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 She is in a very difficult situation with regards to her nutrition. She may need to seek consultation at an outside center with expertise in severe gastroparesis and GI motility disorders. Problems: (1) Infection due to Port-A-Cath (2) Gastroparesis (3) Intractable abdominal pain VITAL SIGNS Vital Signs/I&O: Vital Signs Date Time Temp Pulse Resp B/P (MAP) Pulse Ox O2 Delivery O2 Flow Rate FiO2 03/01/21 11:00 97.9 81 18 121/71 (88) 96 Room Air 97.9 I & O 02/28/21 02/28/21 03/01/21 15:00 23:00 07:00 Output Total 0 ml Balance 0 ml Patient is somnolent but awakens for evaluation says she is feeling little bit better on the current balance of medications HEENT exam is unremarkable for acute abnormality Neck is soft and supple no adenopathy or thyromegaly noted Chest is clear to auscultation Heart S1-S2 normal regular rate and rhythm no murmurs or gallops are noted Abdomen bowel sounds are diminished soft nondistended mildly tender mid abdomen Extremity exam is unremarkable for acute abnormality ALLERGIES Allergies: Allergies Coded Allergies Type Severity Reaction Last Updated Verified iron Allergy Severe Anaphylaxis 01/16/21 Yes Penicillins Allergy Intermediate LIGHT RASH CHILD 01/16/21 Yes Sulfa (Sulfonamide Antibiotics) Allergy Intermediate 01/16/21 Yes I S O L A T I O N *CONTACT* Allergy Unknown 11/17/20 Yes MEDS Medications: Current Medications Medications (Trade) Dose Ordered Sig/Kel Start Time Stop Time Status Last Admin Dose Admin Acetaminophen (Tylenol) 650 mg PRN Q4HRS PRN 02/28/21 14:45 Acetaminophen/ Hydrocodone Bitart (Lortab 5/325) 1 tab PRN Q4HRS PRN 02/28/21 14:45 Dextrose (Dextrose 50%-Water Syringe) 12.5 gm PRN Q15MIN PRN 02/28/21 14:45 Docusate Sodium (Colace) 100 mg PRN DAILY PRN 02/28/21 14:45 Fentanyl Citrate 30 ml @ 0 mls/hr CONT PRN PRN 03/01/21 09:45 03/01/21 10:15 Hydromorphone HCl (Dilaudid) 1 mg 1X ONCE 02/28/21 12:30 02/28/21 12:31 DC 02/28/21 13:17 Lorazepam (Ativan Inj) 0.25 mg PRN Q4HRS PRN 02/28/21 14:45 Lorazepam (Ativan) 0.5 mg PRN Q6HRS PRN 02/28/21 14:45 Metoclopramide HCl (Reglan Vial) 10 mg 1X ONCE 03/01/21 12:00 03/01/21 12:01 DC 03/01/21 11:53 Metoclopramide HCl (Reglan) 10 mg 1X ONCE 03/01/21 11:30 03/01/21 11:31 Cancel Micafungin Sodium 100 mg/Dextrose 100 ml @ 100 mls/hr Q24H 03/01/21 09:00 03/01/21 08:48 Morphine Sulfate (Morphine Sulfate) 2 mg PRN Q2HR PRN 02/28/21 14:45 03/01/21 09:44 DC 03/01/21 08:38 Naloxone HCl (Narcan) 0.4 mg PRN Q2MIN PRN 03/01/21 09:45 Ondansetron HCl (Zofran) 4 mg PRN Q6HRS PRN 02/28/21 14:45 Prochlorperazine Edisylate (Compazine) 10 mg PRN Q6HRS PRN 02/28/21 14:45 Sennosides (Senna) 17.2 mg PRN BID PRN 02/28/21 14:45 Sodium Chloride 1,000 ml @ 25 mls/hr Q24H 03/01/21 09:45 Zolpidem Tartrate (Ambien) 2.5 mg PRN QHS PRN 02/28/21 14:45 Current Medications Medications (Trade) Dose Ordered Sig/Kel Route PRN Reason Start Time Stop Time Status Last Admin Dose Admin Micafungin Sodium 100 mg/Dextrose 100 ml @ 100 mls/hr Q24H IV 03/01/21 09:00 03/01/21 08:48 Fentanyl Citrate 30 ml @ 0 mls/hr CONT PRN PRN IV PER PROTOCOL 03/01/21 09:45 03/01/21 10:15 Metoclopramide HCl (Reglan Vial) 10 mg 1X ONCE IVP 03/01/21 12:00 03/01/21 12:01 DC 03/01/21 11:53 LAB Lab: Laboratory Tests Test 03/01/21 06:45 White Blood Count 3.8 x10^3/uL (4.0-11.0) L Red Blood Count 3.20 x10^6/uL (3.50-5.40) L Hemoglobin 10.1 g/dL (12.0-15.5) L Hematocrit 29.2 % (36.0-47.0) L Mean Corpuscular Volume 91 fL (79-100) Mean Corpuscular Hemoglobin 32 pg (25-35) Mean Corpuscular Hemoglobin Concent 35 g/dL (31-37) Red Cell Distribution Width 13.4 % (11.5-14.5) Platelet Count 75 x10^3/uL (140-400) L Neutrophils (%) (Auto) 72 % (31-73) Lymphocytes (%) (Auto) 17 % (24-48) L Monocytes (%) (Auto) 11 % (0-9) H Eosinophils (%) (Auto) 0 % (0-3) Basophils (%) (Auto) 0 % (0-3) Neutrophils # (Auto) 2.7 x10^3/uL (1.8-7.7) Lymphocytes # (Auto) 0.7 x10^3/uL (1.0-4.8) L Monocytes # (Auto) 0.4 x10^3/uL (0.0-1.1) Eosinophils # (Auto) 0.0 x10^3/uL (0.0-0.7) Basophils # (Auto) 0.0 x10^3/uL (0.0-0.2) Sodium Level 138 mmol/L (136-145) Potassium Level 3.4 mmol/L (3.5-5.1) L Chloride Level 105 mmol/L (98-107) Carbon Dioxide Level 23 mmol/L (21-32) Anion Gap 10 (6-14) Blood Urea Nitrogen 7 mg/dL (7-20) Creatinine 0.6 mg/dL (0.6-1.0) Estimated GFR (Cockcroft-Gault) 125.0 BUN/Creatinine Ratio 12 (6-20) Glucose Level 80 mg/dL (70-99) Calcium Level 7.8 mg/dL (8.5-10.1) L Phosphorus Level 4.2 mg/dL (2.6-4.7) Magnesium Level 1.6 mg/dL (1.8-2.4) L Total Bilirubin 0.2 mg/dL (0.2-1.0) Aspartate Amino Transferase (AST) 11 U/L (15-37) L Alanine Aminotransferase (ALT) 18 U/L (14-59) Alkaline Phosphatase 92 U/L (46-116) Total Protein 5.8 g/dL (6.4-8.2) L Albumin 2.8 g/dL (3.4-5.0) L Albumin/Globulin Ratio 0.9 (1.0-1.7) L Laboratory Tests 03/01/21 06:45 Laboratory Tests 03/01/21 06:45 ASSESSMENT & PLAN A&P Plan as noted above This note was created using [employer] and may have omissions and/or errors due to the nature of real-time voice bioinformatics team member. Justifications for Admission Other Justification Fever JOHNNIE MAR MD Mar 01, 2021 15:12
[2021-03-01 18:48] VITALS: BP 119/68
--- NOTE | 2021-03-01 18:59 | PDOC2 ---
CONSULT Date of Consult Date of Consult DATE: 03/01/21 TIME: 18:56 Reason for Consult Reason for Consult: N/ V Referring Physician Referring Physician: Dr. Blue Identification/Chief Complaint Chief Complaint N/V Source Source: Chart review, Patient History of Present Illness Reason for Visit: 20 yo F with c/o N/V and fevers. Well known with long standing issues with bowel dysfunction. She mainly c/o N/V. Past Medical History Cardiovascular: HTN Pulmonary: No pertinent hx CENTRAL NERVOUS SYSTEM: Other GI: GERD, Other Heme/Onc: No pertinent hx Psych: Other Musculoskeletal: Other Rheumatologic: No pertinent hx Infectious disease: Other Renal/: UTI Endocrine: No pertinent hx Past Surgical History Past Surgical History: Other Family History Family History: Hypertension, Family History Unknown Social History No ALCOHOL: none Drugs: None Lives: with Family Current Problem List Problem List Problems Medical Problems: (1) Fever Status: Acute (2) Intractable nausea and vomiting Status: Acute Current Medications Current Medications Current Medications Sodium Chloride 1,000 ml @ 1,000 mls/hr 1X ONCE IV Last administered on 02/28/21at 13:16; Start 02/28/21 at 12:30; Stop 02/28/21 at 13:29; Status DC Ondansetron HCl (Zofran) 4 mg 1X ONCE IVP Last administered on 02/28/21at 13:17; Start 02/28/21 at 12:30; Stop 02/28/21 at 12:31; Status DC Hydromorphone HCl (Dilaudid) 1 mg 1X ONCE IVP Last administered on 02/28/21at 13:17; Start 02/28/21 at 12:30; Stop 02/28/21 at 12:31; Status DC Ondansetron HCl (Zofran) 4 mg PRN Q8HRS PRN IVP NAUSEA/VOMITING Last administered on 03/01/21at 08:38; Start 02/28/21 at 14:45; Stop 03/01/21 at 14:44; Status DC Sodium Chloride 1,000 ml @ 100 mls/hr 1X ONCE IV Last administered on 02/28/21at 23:32; Start 02/28/21 at 14:45; Stop 03/01/21 at 00:44; Status DC Sennosides (Senna) 17.2 mg PRN BID PRN PO CONSTIPATION; Start 02/28/21 at 14:45 Docusate Sodium (Colace) 100 mg PRN DAILY PRN PO HARD STOOLS; Start 02/28/21 at 14:45 Ondansetron HCl (Zofran) 4 mg PRN Q6HRS PRN IVP NAUSEA/VOMITING Last administered on 03/01/21at 18:02; Start 02/28/21 at 14:45 Dextrose (Dextrose 50%-Water Syringe) 12.5 gm PRN Q15MIN PRN IV SEE COMMENTS; Start 02/28/21 at 14:45 Acetaminophen (Tylenol) 650 mg PRN Q4HRS PRN PO TEMP OVER 100.4F OR MILD PAIN; Start 02/28/21 at 14:45 Lorazepam (Ativan) 0.5 mg PRN Q6HRS PRN PO ANXIETY / AGITATION; Start 02/28/21 at 14:45 Lorazepam (Ativan Inj) 0.25 mg PRN Q4HRS PRN IV ANXIETY / AGITATION; Start 02/28/21 at 14:45 Acetaminophen/ Hydrocodone Bitart (Lortab 5/325) 1 tab PRN Q4HRS PRN PO MODERATE - SEVERE PAIN; Start 02/28/21 at 14:45 Morphine Sulfate (Morphine Sulfate) 1 mg PRN Q1HR PRN IV PAIN Last administered on 02/28/21at 17:25; Start 02/28/21 at 14:45; Stop 03/01/21 at 09:44; Status DC Morphine Sulfate (Morphine Sulfate) 2 mg PRN Q2HR PRN IVP SEVERE PAIN 7-10 Last administered on 03/01/21at 08:38; Start 02/28/21 at 14:45; Stop 03/01/21 at 09:44; Status DC Prochlorperazine Edisylate (Compazine) 10 mg PRN Q6HRS PRN IV NAUSEA/VOMITING, 2ND CHOICE; Start 02/28/21 at 14:45 Zolpidem Tartrate (Ambien) 2.5 mg PRN QHS PRN PO INSOMNIA; Start 02/28/21 at 14:45 Micafungin Sodium 100 mg/Dextrose 100 ml @ 100 mls/hr Q24H IV Last administered on 03/01/21at 08:48; Start 03/01/21 at 09:00 Fentanyl Citrate 30 ml @ 0 mls/hr CONT PRN PRN IV PER PROTOCOL Last administered on 03/01/21at 10:15; Start 03/01/21 at 09:45 Naloxone HCl (Narcan) 0.4 mg PRN Q2MIN PRN IV SEE INSTRUCTIONS; Start 03/01/21 at 09:45 Sodium Chloride 1,000 ml @ 25 mls/hr Q24H IV ; Start 03/01/21 at 09:45 Metoclopramide HCl (Reglan) 10 mg 1X ONCE PO ; Start 03/01/21 at 11:30; Stop 03/01/21 at 11:31; Status Cancel Metoclopramide HCl (Reglan Vial) 10 mg 1X ONCE IVP Last administered on 03/01/21at 11:53; Start 03/01/21 at 12:00; Stop 03/01/21 at 12:01; Status DC Active Scripts Active Transderm-Scop (Scopolamine) 1 Each Patch.td72 1 Patch TP Q3DAYS Cefdinir 300 Mg Capsule 1 Cap PO BID 14 Days Cefdinir 300 Mg Capsule 1 Cap PO BID 14 Days [Tpn Per Pharmacy] 1 EACH Each 1 Each MC PRN DAILY PRN 30 Days Ondansetron Hcl 4 Mg/2 Ml Vial (Ondansetron Hcl/Pf) 4 Mg/2 Ml Vial 4 Mg IVP PRN Q6HRS PRN 30 Days Bisacodyl 10 Mg Supp.rect 10 Mg ME PRN DAILY PRN 30 Days Reported Valproic Acid (Valproate Sodium) 500 Mg/10 Ml Solution 500 Mg JT BID Metoprolol Tartrate 75 Mg Tablet 25 Mg PO BID Transderm-Scop (Scopolamine) 1 Each Patch.td72 1 Patch TP Q3DAYS Levbid (Hyoscyamine Sulfate) 0.375 Mg Tab.er.12h 0.375 Mg JT BID Famotidine 40 Mg Tablet 40 Mg IV DAILY Spiriva (Tiotropium [place]) 18 Mcg Cap.w.dev 2 Inh IH BID Breo Ellipta 200-25 Mcg INH (Fluticasone/Vilanterol) 1 Each Blst.w.dev 1 Puff IH BID [Tpn Per Pharmacy] 1 Ea IV UD Hydrocodone-Apap 5-325 (Hydrocodone Bit/Acetaminophen) 1 Tab Tablet 1 Tab JT PRN Q6HRS PRN Tramadol HCl ER (Tramadol HCl) 100 Mg Cpbp.25.75 100 Mg JT BID Docusate Sodium 100 Mg Capsule 1 Cap PO DAILY 30 Days Ajovy Autoinjector (Fremanezumab-Vfrm) 225 Mg/1.5 Ml Auto.injct 225 Mg SQ QMONTH Tizanidine Hcl 2 Mg Capsule 2 Mg JT Q8HRS PRN Gabapentin 600 Mg Tablet 300 Mg JT TID Midodrine Hcl 5 Mg Tablet 5 Mg SL BID Milk Of Magnesia (Magnesium Hydroxide) 400 Mg/5 Ml Oral.susp 400 Mg JT PRN DAILY MDD 400mg Mirtazapine 30 Mg Tab.rapdis 45 Mg PO QHS 30 Days Olopatadine HCl 5 Ml Drops 0.1 % OP PRN DAILY PRN Vitamin D3 (Cholecalciferol (Vitamin D3)) 4,000 Unit Capsule 2,000 Unit JT HS Xyzal (Levocetirizine Dihydrochloride) 5 Mg Tablet 10 Mg GT BID Proair Hfa (Albuterol Sulfate) 8.5 Gm Hfa.aer.ad 2 Puff IH PRN Q4-6HRS PRN 21 Days Ipratropium [place] 30 Ml [place] 1 [place] NS BID Duoneb 0.5-3(2.5) Mg/3 Ml (Albuterol/Ipratropium) 3 Ml Ampul.neb 3 Ml NEB PRN QID PRN Montelukast Sodium Tablet (Montelukast Sodium) 10 Mg Tablet 10 Mg PO DAILY PRN Multi Vitamin Daily (Multivitamin) 1 Each Tablet 1 Each GT DAILY Allergies Allergies: Coded Allergies: iron (Verified Allergy, Severe, Anaphylaxis, 01/16/21) Penicillins (Verified Allergy, Intermediate, LIGHT RASH CHILD, 01/16/21) TOLERATES ZOSYN Sulfa (Sulfonamide Antibiotics) (Verified Allergy, Intermediate, 01/16/21) I S O L A T I O N *CONTACT* (Verified Allergy, Unknown, 11/17/20) mrsa ROS Gastrointestinal: Yes Nausea, Yes Vomiting Physical Exam General: Alert, Oriented X3, Cooperative, mild distress Abdomen: Soft, Other (chronic TTP, tubes in place) Vitals VITALS Vital Signs Date Time Temp Pulse Resp B/P (MAP) Pulse Ox O2 Delivery O2 Flow Rate FiO2 03/01/21 18:48 97.9 80 17 119/68 (85) 97 Room Air 97.9 Labs Labs Laboratory Tests Test 02/28/21 12:55 03/01/21 06:45 White Blood Count 2.9 x10^3/uL (4.0-11.0) 3.8 x10^3/uL (4.0-11.0) Red Blood Count 3.50 x10^6/uL (3.50-5.40) 3.20 x10^6/uL (3.50-5.40) Hemoglobin 10.9 g/dL (12.0-15.5) 10.1 g/dL (12.0-15.5) Hematocrit 32.0 % (36.0-47.0) 29.2 % (36.0-47.0) Mean Corpuscular Volume 91 fL (79-100) 91 fL (79-100) Mean Corpuscular Hemoglobin 31 pg (25-35) 32 pg (25-35) Mean Corpuscular Hemoglobin Concent 34 g/dL (31-37) 35 g/dL (31-37) Red Cell Distribution Width 13.6 % (11.5-14.5) 13.4 % (11.5-14.5) Platelet Count 75 x10^3/uL (140-400) 75 x10^3/uL (140-400) Neutrophils (%) (Auto) 76 % (31-73) 72 % (31-73) Lymphocytes (%) (Auto) 17 % (24-48) 17 % (24-48) Monocytes (%) (Auto) 7 % (0-9) 11 % (0-9) Eosinophils (%) (Auto) 0 % (0-3) 0 % (0-3) Basophils (%) (Auto) 0 % (0-3) 0 % (0-3) Neutrophils # (Auto) 2.2 x10^3/uL (1.8-7.7) 2.7 x10^3/uL (1.8-7.7) Lymphocytes # (Auto) 0.5 x10^3/uL (1.0-4.8) 0.7 x10^3/uL (1.0-4.8) Monocytes # (Auto) 0.2 x10^3/uL (0.0-1.1) 0.4 x10^3/uL (0.0-1.1) Eosinophils # (Auto) 0.0 x10^3/uL (0.0-0.7) 0.0 x10^3/uL (0.0-0.7) Basophils # (Auto) 0.0 x10^3/uL (0.0-0.2) 0.0 x10^3/uL (0.0-0.2) Sodium Level 139 mmol/L (136-145) 138 mmol/L (136-145) Potassium Level 4.3 mmol/L (3.5-5.1) 3.4 mmol/L (3.5-5.1) Chloride Level 105 mmol/L (98-107) 105 mmol/L (98-107) Carbon Dioxide Level 25 mmol/L (21-32) 23 mmol/L (21-32) Anion Gap 9 (6-14) 10 (6-14) Blood Urea Nitrogen 12 mg/dL (7-20) 7 mg/dL (7-20) Creatinine 0.6 mg/dL (0.6-1.0) 0.6 mg/dL (0.6-1.0) Estimated GFR (Cockcroft-Gault) 125.0 125.0 BUN/Creatinine Ratio 20 (6-20) 12 (6-20) Glucose Level 93 mg/dL (70-99) 80 mg/dL (70-99) Calcium Level 8.6 mg/dL (8.5-10.1) 7.8 mg/dL (8.5-10.1) Total Bilirubin 0.3 mg/dL (0.2-1.0) 0.2 mg/dL (0.2-1.0) Aspartate Amino Transf (AST/SGOT) 20 U/L (15-37) 11 U/L (15-37) Alanine Aminotransferase (ALT/SGPT) 19 U/L (14-59) 18 U/L (14-59) Alkaline Phosphatase 113 U/L (46-116) 92 U/L (46-116) Total Protein 6.8 g/dL (6.4-8.2) 5.8 g/dL (6.4-8.2) Albumin 3.4 g/dL (3.4-5.0) 2.8 g/dL (3.4-5.0) Albumin/Globulin Ratio 1.0 (1.0-1.7) 0.9 (1.0-1.7) Lipase 42 U/L (73-393) SARS-CoV-2 RNA (SALVADOR) Negative (Negative) SARS-CoV-2 Antigen (Rapid) Negative (NEGATIVE) Phosphorus Level 4.2 mg/dL (2.6-4.7) Magnesium Level 1.6 mg/dL (1.8-2.4) Laboratory Tests Test 03/01/21 06:45 White Blood Count 3.8 x10^3/uL (4.0-11.0) Red Blood Count 3.20 x10^6/uL (3.50-5.40) Hemoglobin 10.1 g/dL (12.0-15.5) Hematocrit 29.2 % (36.0-47.0) Mean Corpuscular Volume 91 fL (79-100) Mean Corpuscular Hemoglobin 32 pg (25-35) Mean Corpuscular Hemoglobin Concent 35 g/dL (31-37) Red Cell Distribution Width 13.4 % (11.5-14.5) Platelet Count 75 x10^3/uL (140-400) Neutrophils (%) (Auto) 72 % (31-73) Lymphocytes (%) (Auto) 17 % (24-48) Monocytes (%) (Auto) 11 % (0-9) Eosinophils (%) (Auto) 0 % (0-3) Basophils (%) (Auto) 0 % (0-3) Neutrophils # (Auto) 2.7 x10^3/uL (1.8-7.7) Lymphocytes # (Auto) 0.7 x10^3/uL (1.0-4.8) Monocytes # (Auto) 0.4 x10^3/uL (0.0-1.1) Eosinophils # (Auto) 0.0 x10^3/uL (0.0-0.7) Basophils # (Auto) 0.0 x10^3/uL (0.0-0.2) Sodium Level 138 mmol/L (136-145) Potassium Level 3.4 mmol/L (3.5-5.1) Chloride Level 105 mmol/L (98-107) Carbon Dioxide Level 23 mmol/L (21-32) Anion Gap 10 (6-14) Blood Urea Nitrogen 7 mg/dL (7-20) Creatinine 0.6 mg/dL (0.6-1.0) Estimated GFR (Cockcroft-Gault) 125.0 BUN/Creatinine Ratio 12 (6-20) Glucose Level 80 mg/dL (70-99) Calcium Level 7.8 mg/dL (8.5-10.1) Phosphorus Level 4.2 mg/dL (2.6-4.7) Magnesium Level 1.6 mg/dL (1.8-2.4) Total Bilirubin 0.2 mg/dL (0.2-1.0) Aspartate Amino Transf (AST/SGOT) 11 U/L (15-37) Alanine Aminotransferase (ALT/SGPT) 18 U/L (14-59) Alkaline Phosphatase 92 U/L (46-116) Total Protein 5.8 g/dL (6.4-8.2) Albumin 2.8 g/dL (3.4-5.0) Albumin/Globulin Ratio 0.9 (1.0-1.7) Assessment/Plan Assessment/Plan line sepsis agree with plans per ID no surgical plans. Thanks for consult! TORIE MILLER MD Mar 01, 2021 18:59
[2021-03-01 22:51] VITALS: BP 114/62
[2021-03-02 02:59] VITALS: BP 115/65
[2021-03-02 06:44] LABS: CALCIUM 8.6 mg/dL (8.5-10.1); CREATININE 0.6 mg/dL (0.6-1.0); MAGNESIUM 1.8 mg/dL (1.8-2.4); POTASSIUM 3.3 mmol/L (3.5-5.1)
--- NOTE | 2021-03-02 06:45 | NUR ---
Patient in room crying complaining of abdominal pain and requesting to see Dr. Santana. Dr. Santana notified. Orders received. RN will continue to monitor and update oncoming RN of current situation.
[2021-03-02 07:00] VITALS: BP 99/50
--- NOTE | 2021-03-02 07:06 | RAD ---
EXAMINATION: XR ABDOMEN 1V CLINICAL HISTORY: Abdominal pain TECHNIQUE: XR ABDOMEN 1V COMPARISON: 01/20/2021 FINDINGS/ IMPRESSION: Gastrostomy and 2 jejunostomy tubes remain in similar positions. Nonobstructive bowel gas pattern. No suspicious abdominal calcifications. Surgical clips of the right hemiabdomen. No evidence of acute o sseous abnormality. Electronically signed by: Alf Killian DO (03/02/2021 7:03 AM) MICHELLE
[2021-03-02 07:12] LABS: BASO % 0 % (0-3); EOS % 0 % (0-3); HEMATOCRIT 32.2 % (36.0-47.0); HEMOGLOBIN 11.1 g/dL (12.0-15.5); LYMPH # 0.9 x10^3/uL (1.0-4.8); LYMPH % 23 % (24-48); MEAN CORPUSCULAR HEMOGLOBIN 31 pg (25-35); MEAN CORPUSCULAR HGB CONC 35 g/dL (31-37); MEAN CORPUSCULAR VOLUME 91 fL (79-100); MONO # 0.4 x10^3/uL (0.0-1.1); MONO % 10 % (0-9); NEUT # 2.4 x10^3/uL (1.8-7.7); NEUT % 66 % (31-73); PLATELET COUNT 81 x10^3/uL (140-400); RED BLOOD COUNT 3.55 x10^6/uL (3.50-5.40); RED CELL DISTRIBUTION WIDTH 13.2 % (11.5-14.5); WHITE BLOOD COUNT 3.7 x10^3/uL (4.0-11.0)
--- NOTE | 2021-03-02 07:56 | PDOC ---
Infectious Disease Note Subjective Subjective Patient is still having a lot of pain in the abdomen and chills ROS ROS No nausea vomiting diarrhea Vital Sign Vital Signs Vital Signs Date Time Temp Pulse Resp B/P (MAP) Pulse Ox O2 Delivery O2 Flow Rate FiO2 03/02/21 02:59 98.0 85 17 115/65 (82) 99 Room Air 98.0 Physical Exam PHYSICAL EXAM HEENT normal Neck supple no JVP no lymphadenopathy Lungs clear heart S1-S2 regular no gallop or murmur Abdomen soft nontender there is a GJ tube is in place and there is another button in place Extremities no edema or cyanosis CV line site is unremarkable in the left upper chest [employer] WHARF alert awake appropriate no focal neurologic deficit Labs Lab Laboratory Tests Test 03/02/21 05:50 White Blood Count 3.7 x10^3/uL (4.0-11.0) Red Blood Count 3.55 x10^6/uL (3.50-5.40) Hemoglobin 11.1 g/dL (12.0-15.5) Hematocrit 32.2 % (36.0-47.0) Mean Corpuscular Volume 91 fL (79-100) Mean Corpuscular Hemoglobin 31 pg (25-35) Mean Corpuscular Hemoglobin Concent 35 g/dL (31-37) Red Cell Distribution Width 13.2 % (11.5-14.5) Platelet Count 81 x10^3/uL (140-400) Neutrophils (%) (Auto) 66 % (31-73) Lymphocytes (%) (Auto) 23 % (24-48) Monocytes (%) (Auto) 10 % (0-9) Eosinophils (%) (Auto) 0 % (0-3) Basophils (%) (Auto) 0 % (0-3) Neutrophils # (Auto) 2.4 x10^3/uL (1.8-7.7) Lymphocytes # (Auto) 0.9 x10^3/uL (1.0-4.8) Monocytes # (Auto) 0.4 x10^3/uL (0.0-1.1) Eosinophils # (Auto) 0.0 x10^3/uL (0.0-0.7) Basophils # (Auto) 0.0 x10^3/uL (0.0-0.2) Sodium Level 141 mmol/L (136-145) Potassium Level 3.3 mmol/L (3.5-5.1) Chloride Level 104 mmol/L (98-107) Carbon Dioxide Level 25 mmol/L (21-32) Anion Gap 12 (6-14) Blood Urea Nitrogen 10 mg/dL (7-20) Creatinine 0.6 mg/dL (0.6-1.0) Estimated GFR (Cockcroft-Gault) 125.0 Glucose Level 78 mg/dL (70-99) Calcium Level 8.6 mg/dL (8.5-10.1) Magnesium Level 1.8 mg/dL (1.8-2.4) Micro Blood culture positive with Serena papulosis Objective Assessment Sepsis present on admission Fungemia 1 out of 4 bottles present on admission, likely central line associated bloodstream infection Nausea and vomiting Gastroparesis on TPN G-tube placement October 2020 History of migraine History of hypertension History of CVA History of multiple line infection Allergies to penicillin, sulfa Plan Plan of Care Continue micafungin Central line removal planned for today Discussed with surgery ISAAC RODRIGUEZ MD Mar 02, 2021 07:56
[2021-03-02 08:25] VITALS: BP 99/50
--- NOTE | 2021-03-02 09:10 | PDOC ---
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 03/02/21 0910: SURGICAL PROGRESS NOTE DATE: 03/02/21 TIME: 09:09 Subjective moaning in pain nausea Vital Signs Vital Signs Date Time Temp Pulse Resp B/P (MAP) Pulse Ox O2 Delivery O2 Flow Rate FiO2 03/02/21 08:25 98.3 76 20 99/50 (66) 98 Room Air 98.3 I&O Intake and Output 03/02/21 07:00 Output Total 0 ml Balance 0 ml Output Urine Total 0 ml # Voids 4 # Bowel Movements 1 General: Cooperative, Other (chronic ill appearing ) Abdomen: Soft, Other (tubes intact) Labs Laboratory Tests Test 02/28/21 12:55 03/01/21 06:45 03/02/21 05:50 White Blood Count 2.9 x10^3/uL (4.0-11.0) 3.8 x10^3/uL (4.0-11.0) 3.7 x10^3/uL (4.0-11.0) Red Blood Count 3.50 x10^6/uL (3.50-5.40) 3.20 x10^6/uL (3.50-5.40) 3.55 x10^6/uL (3.50-5.40) Hemoglobin 10.9 g/dL (12.0-15.5) 10.1 g/dL (12.0-15.5) 11.1 g/dL (12.0-15.5) Hematocrit 32.0 % (36.0-47.0) 29.2 % (36.0-47.0) 32.2 % (36.0-47.0) Mean Corpuscular Volume 91 fL (79-100) 91 fL (79-100) 91 fL (79-100) Mean Corpuscular Hemoglobin 31 pg (25-35) 32 pg (25-35) 31 pg (25-35) Mean Corpuscular Hemoglobin Concent 34 g/dL (31-37) 35 g/dL (31-37) 35 g/dL (31-37) Red Cell Distribution Width 13.6 % (11.5-14.5) 13.4 % (11.5-14.5) 13.2 % (11.5-14.5) Platelet Count 75 x10^3/uL (140-400) 75 x10^3/uL (140-400) 81 x10^3/uL (140-400) Neutrophils (%) (Auto) 76 % (31-73) 72 % (31-73) 66 % (31-73) Lymphocytes (%) (Auto) 17 % (24-48) 17 % (24-48) 23 % (24-48) Monocytes (%) (Auto) 7 % (0-9) 11 % (0-9) 10 % (0-9) Eosinophils (%) (Auto) 0 % (0-3) 0 % (0-3) 0 % (0-3) Basophils (%) (Auto) 0 % (0-3) 0 % (0-3) 0 % (0-3) Neutrophils # (Auto) 2.2 x10^3/uL (1.8-7.7) 2.7 x10^3/uL (1.8-7.7) 2.4 x10^3/uL (1.8-7.7) Lymphocytes # (Auto) 0.5 x10^3/uL (1.0-4.8) 0.7 x10^3/uL (1.0-4.8) 0.9 x10^3/uL (1.0-4.8) Monocytes # (Auto) 0.2 x10^3/uL (0.0-1.1) 0.4 x10^3/uL (0.0-1.1) 0.4 x10^3/uL (0.0-1.1) Eosinophils # (Auto) 0.0 x10^3/uL (0.0-0.7) 0.0 x10^3/uL (0.0-0.7) 0.0 x10^3/uL (0.0-0.7) Basophils # (Auto) 0.0 x10^3/uL (0.0-0.2) 0.0 x10^3/uL (0.0-0.2) 0.0 x10^3/uL (0.0-0.2) Sodium Level 139 mmol/L (136-145) 138 mmol/L (136-145) 141 mmol/L (136-145) Potassium Level 4.3 mmol/L (3.5-5.1) 3.4 mmol/L (3.5-5.1) 3.3 mmol/L (3.5-5.1) Chloride Level 105 mmol/L (98-107) 105 mmol/L (98-107) 104 mmol/L (98-107) Carbon Dioxide Level 25 mmol/L (21-32) 23 mmol/L (21-32) 25 mmol/L (21-32) Anion Gap 9 (6-14) 10 (6-14) 12 (6-14) Blood Urea Nitrogen 12 mg/dL (7-20) 7 mg/dL (7-20) 10 mg/dL (7-20) Creatinine 0.6 mg/dL (0.6-1.0) 0.6 mg/dL (0.6-1.0) 0.6 mg/dL (0.6-1.0) Estimated GFR (Cockcroft-Gault) 125.0 125.0 125.0 BUN/Creatinine Ratio 20 (6-20) 12 (6-20) Glucose Level 93 mg/dL (70-99) 80 mg/dL (70-99) 78 mg/dL (70-99) Calcium Level 8.6 mg/dL (8.5-10.1) 7.8 mg/dL (8.5-10.1) 8.6 mg/dL (8.5-10.1) Total Bilirubin 0.3 mg/dL (0.2-1.0) 0.2 mg/dL (0.2-1.0) Aspartate Amino Transf (AST/SGOT) 20 U/L (15-37) 11 U/L (15-37) Alanine Aminotransferase (ALT/SGPT) 19 U/L (14-59) 18 U/L (14-59) Alkaline Phosphatase 113 U/L (46-116) 92 U/L (46-116) Total Protein 6.8 g/dL (6.4-8.2) 5.8 g/dL (6.4-8.2) Albumin 3.4 g/dL (3.4-5.0) 2.8 g/dL (3.4-5.0) Albumin/Globulin Ratio 1.0 (1.0-1.7) 0.9 (1.0-1.7) Lipase 42 U/L (73-393) SARS-CoV-2 RNA (SALVADOR) Negative (Negative) SARS-CoV-2 Antigen (Rapid) Negative (NEGATIVE) Phosphorus Level 4.2 mg/dL (2.6-4.7) Magnesium Level 1.6 mg/dL (1.8-2.4) 1.8 mg/dL (1.8-2.4) Laboratory Tests Test 03/02/21 05:50 White Blood Count 3.7 x10^3/uL (4.0-11.0) Red Blood Count 3.55 x10^6/uL (3.50-5.40) Hemoglobin 11.1 g/dL (12.0-15.5) Hematocrit 32.2 % (36.0-47.0) Mean Corpuscular Volume 91 fL (79-100) Mean Corpuscular Hemoglobin 31 pg (25-35) Mean Corpuscular Hemoglobin Concent 35 g/dL (31-37) Red Cell Distribution Width 13.2 % (11.5-14.5) Platelet Count 81 x10^3/uL (140-400) Neutrophils (%) (Auto) 66 % (31-73) Lymphocytes (%) (Auto) 23 % (24-48) Monocytes (%) (Auto) 10 % (0-9) Eosinophils (%) (Auto) 0 % (0-3) Basophils (%) (Auto) 0 % (0-3) Neutrophils # (Auto) 2.4 x10^3/uL (1.8-7.7) Lymphocytes # (Auto) 0.9 x10^3/uL (1.0-4.8) Monocytes # (Auto) 0.4 x10^3/uL (0.0-1.1) Eosinophils # (Auto) 0.0 x10^3/uL (0.0-0.7) Basophils # (Auto) 0.0 x10^3/uL (0.0-0.2) Sodium Level 141 mmol/L (136-145) Potassium Level 3.3 mmol/L (3.5-5.1) Chloride Level 104 mmol/L (98-107) Carbon Dioxide Level 25 mmol/L (21-32) Anion Gap 12 (6-14) Blood Urea Nitrogen 10 mg/dL (7-20) Creatinine 0.6 mg/dL (0.6-1.0) Estimated GFR (Cockcroft-Gault) 125.0 Glucose Level 78 mg/dL (70-99) Calcium Level 8.6 mg/dL (8.5-10.1) Magnesium Level 1.8 mg/dL (1.8-2.4) Problem List Problems Medical Problems: (1) Fever Status: Acute (2) Intractable nausea and vomiting Status: Acute Assessment/Plan d/w ID--line removal today, couple days before replacing would rec ppn until then Justicifation of Admission Dx: Justifications for Admission: Justification of Admission Dx: Yes Sepsis: Bacteremia TORIE MILLER MD 03/02/212123: SURGICAL PROGRESS NOTE Assessment/Plan Pt seen and examined. Agree with Ms. Valle's note Pt with c/o diffuse abd pain KUB wnl suspect will improve with line sepsis improvement HANNAH VALLE APRN Mar 02, 2021 09:10 TORIE MILLER MD Mar 02, 2021 21:24
[2021-03-02] MEDS: IV NORMAL SALINE 1000ML BAG 1,000 ML IV SCH (09:36)
[2021-03-02] MEDS: ONDANSETRON PF 4 MG/2 ML VIAL. IVP PRN ×2 (09:36→20:14)
[2021-03-02 10:02] LABS: PROTHROMBIN TIME PATIENT 14.5 SEC (11.7-14.0)
[2021-03-02] MEDS: MICAFUNGIN 100 MG in IV DEXTROSE 5% 100ML 100 ML IV SCH (10:06)
--- NOTE | 2021-03-02 10:32 | NUR ---
SW following. Discussed with RN, pt from home, room air, NPO, COVID-19 negative. Pt on a PC and IV abx. PICC line being removed. ID, Surgery and Wound care following. RN advised no SW needs at this time. SW will continue to follow.
[2021-03-02] MEDS ORDERED: LIDOCAINE 1%/EPI 1:100,000 20 ML VIAL. ONE (11:57)
[2021-03-02] MEDS ORDERED: MIDAZOLAM HCL/PF 2 MG/2 ML VIAL. ONE (12:04)
--- NOTE | 2021-03-02 12:13 | PDOC ---
[employer] PROGRESS NOTE Date of Service DOS: DATE: 03/02/21 TIME: 12:11 Chief Complaint Chief Complaint intractable abdominal pain on prior abd problems nausea and vominitg, Postoperative jejunostomy tube placement 11/17/2020 -ex lap, abdominal washout J-tube placement. chronically on TPN Lymphopenia Thrombocytopenia, Hx of UTI with Citrobacter and Stenotrophomonas Severe malnutrition Idiopathic autonomic neuropathy Severe gastroparesis chronically on TPN Cyclic vomiting syndrome GERD Pelvic floor dyssynergia (s/p therapy) s/p cholecystectomy. History of Present Illness History of Present Illness FAMILY PARTNER, PICC line to be removed gen surg and ID following Vitals/I&O Vitals/I&O: Vital Signs Date Time Temp Pulse Resp B/P (MAP) Pulse Ox O2 Delivery O2 Flow Rate FiO2 03/02/21 10:09 Room Air 03/02/21 08:25 98.3 76 20 99/50 (66) 98 98.3 I & O 03/01/21 03/01/21 03/02/21 15:00 23:00 07:00 Output Total 0 ml Balance 0 ml Physical Exam Physical Exam: HEENT normal Abdomen soft nontender there is a GJ tube is in place and there is another button in place Extremities no edema or cyanosis CV line site is unremarkable in the left upper chest RCIS alert awake - distress from pain, moaning General: Cooperative, severe distress (pain), Other (chronic ill appearing ) Lungs: Clear Abdomen: Soft, Other (tubes intact) Extremities: Normal pulses Skin: No breakdown Labs Labs: Laboratory Tests Test 03/02/21 05:50 03/02/21 09:40 White Blood Count 3.7 x10^3/uL (4.0-11.0) Red Blood Count 3.55 x10^6/uL (3.50-5.40) Hemoglobin 11.1 g/dL (12.0-15.5) Hematocrit 32.2 % (36.0-47.0) Mean Corpuscular Volume 91 fL (79-100) Mean Corpuscular Hemoglobin 31 pg (25-35) Mean Corpuscular Hemoglobin Concent 35 g/dL (31-37) Red Cell Distribution Width 13.2 % (11.5-14.5) Platelet Count 81 x10^3/uL (140-400) Neutrophils (%) (Auto) 66 % (31-73) Lymphocytes (%) (Auto) 23 % (24-48) Monocytes (%) (Auto) 10 % (0-9) Eosinophils (%) (Auto) 0 % (0-3) Basophils (%) (Auto) 0 % (0-3) Neutrophils # (Auto) 2.4 x10^3/uL (1.8-7.7) Lymphocytes # (Auto) 0.9 x10^3/uL (1.0-4.8) Monocytes # (Auto) 0.4 x10^3/uL (0.0-1.1) Eosinophils # (Auto) 0.0 x10^3/uL (0.0-0.7) Basophils # (Auto) 0.0 x10^3/uL (0.0-0.2) Sodium Level 141 mmol/L (136-145) Potassium Level 3.3 mmol/L (3.5-5.1) Chloride Level 104 mmol/L (98-107) Carbon Dioxide Level 25 mmol/L (21-32) Anion Gap 12 (6-14) Blood Urea Nitrogen 10 mg/dL (7-20) Creatinine 0.6 mg/dL (0.6-1.0) Estimated GFR (Cockcroft-Gault) 125.0 Glucose Level 78 mg/dL (70-99) Calcium Level 8.6 mg/dL (8.5-10.1) Magnesium Level 1.8 mg/dL (1.8-2.4) Prothrombin Time 14.5 SEC (11.7-14.0) Prothromb Time International Ratio 1.1 (0.8-1.1) Assessment and Plan Assessmemt and Plan Problems Medical Problems: (1) Fever Status: Acute (2) Intractable nausea and vomiting Status: Acute Comment Review of Relevant I have reviewed the following items lalo (where applicable) has been applied. Justifications for Admission Other Justification Fever KRISTEN ESPAÑA MD Mar 02, 2021 12:13
[2021-03-02] MEDS ORDERED: LIDOCAINE 1%/EPI 1:100,000 20 ML VIAL. SQ ONE (12:15)
[2021-03-02] MEDS ORDERED: HYDROmorphone 2 MG/ML VIAL ONE (12:15)
[2021-03-02] MEDS ORDERED: MIDAZOLAM HCL/PF 2 MG/2 ML VIAL. IV ONE (12:15)
[2021-03-02] MEDS ORDERED: HYDROmorphone 2 MG/ML VIAL IVP ONE (12:30)
--- NOTE | 2021-03-02 14:05 | NUR ---
While walking by pt's room, pt seen on the phone, appears comfortable. When entering the room and presence acknowledged, pt immediately began moaning and grimacing, rating pain at 8/10.
[2021-03-02] MEDS: AA 4.25 %/CALCIUM/LYTES/D5W 1,000 ML IV SCH ×2 (14:39→23:26)
[2021-03-02] MEDS: PROCHLORPERAZINE 10 MG/2 ML VIAL. IV PRN (14:42)
--- NOTE | 2021-03-02 14:43 | RAD ---
Procedure: Fluoroscopic guided removal of a tunneled left IJ central line Clinical Indication: Adult female with bacteremia. Sedation: Local anesthesia only Antibiotics: Patient is on systemic IV antibiotics Fluoro Exposure: Kerma-Area Product: 0.1 Gycm2 Sterility: All elements of maximal sterile barrier technique including the use of a cap, mask, steril e gown, sterile gloves, large sterile sheet, appropriate hand hygiene, and 2% chlorhexidine for cutan eous antisepsis (or acceptable alternative antiseptic per current guidelines) were followed for this procedure. Consent: The procedure was explained in its entirety to the patient or the patients designated repres entative by a member of the treatment team, including a discussion of the risks, benefits and commonl y accepted alternatives to the procedure, as well as the expected consequences of not performing the procedure. Discussion of the risks included, but was not limited to, those that are most frequent an d those that are rare but possibly severe or life-threatening, as well as the possibility of unforese en complications. Time Out: Immediately prior to initiation a procedural pause was conducted in the presence of the mem bers of the treatment team to verify correct patient identity, correct procedure, correct side if joy licable, correct patient position, availability of specialized equipment, review of patients allergie s, and assessment of current level of consciousness and arousability. Technique and Findings: Following informed consent, the patient was prepped and draped in the usual s terile fashion. Preliminary fluoroscopic spot view revealed an intact left IJ tunnel central line. 1 percent lidocaine was used to achieve local anesthesia around the exit site and the central line was removed with ease. Hemostasis was readily achieved with manual compression. Completion fluoroscopy de monstrated no residual radiopaque foreign body. Complications: No immediate Impression: 1. Fluoroscopic guided removal of a tunneled central line as described. Electronically signed by: Fareed Griffin MD (03/02/2021 2:40 PM) [id number]
[2021-03-02 18:00] VITALS: BP 91/52
[2021-03-02 19:00] VITALS: BP 101/52
[2021-03-02 23:12] VITALS: BP 119/68
[2021-03-03 03:00] VITALS: BP 120/74
[2021-03-03] MEDS: PROCHLORPERAZINE 10 MG/2 ML VIAL. IV PRN ×2 (03:09→13:51)
[2021-03-03 04:47] LABS: BASO % 0 % (0-3); EOS % 1 % (0-3); HEMATOCRIT 30.3 % (36.0-47.0); HEMOGLOBIN 10.9 g/dL (12.0-15.5); LYMPH # 1.3 x10^3/uL (1.0-4.8); LYMPH % 32 % (24-48); MEAN CORPUSCULAR HEMOGLOBIN 32 pg (25-35); MEAN CORPUSCULAR HGB CONC 36 g/dL (31-37); MEAN CORPUSCULAR VOLUME 89 fL (79-100); MONO # 0.4 x10^3/uL (0.0-1.1); MONO % 10 % (0-9); NEUT # 2.2 x10^3/uL (1.8-7.7); NEUT % 56 % (31-73); PLATELET COUNT 117 x10^3/uL (140-400); RED BLOOD COUNT 3.41 x10^6/uL (3.50-5.40); RED CELL DISTRIBUTION WIDTH 13.3 % (11.5-14.5); WHITE BLOOD COUNT 3.9 x10^3/uL (4.0-11.0)
[2021-03-03 05:03] LABS: CALCIUM 8.4 mg/dL (8.5-10.1); CREATININE 0.6 mg/dL (0.6-1.0); MAGNESIUM 1.9 mg/dL (1.8-2.4); POTASSIUM 3.3 mmol/L (3.5-5.1)
[2021-03-03 07:00] VITALS: BP 112/53
--- NOTE | 2021-03-03 08:36 | PDOC ---
Infectious Disease Note Subjective Subjective Patient is feeling better ROS ROS no n/v/d/ Vital Sign Vital Signs Vital Signs Date Time Temp Pulse Resp B/P (MAP) Pulse Ox O2 Delivery O2 Flow Rate FiO2 03/03/21 07:38 Room Air 03/03/21 07:00 98.5 75 18 112/53 (72) 98 98.5 03/02/21 16:22 2.0 Physical Exam PHYSICAL EXAM HEENT normal Neck supple no JVP no lymphadenopathy Lungs clear heart S1-S2 regular no gallop or murmur Abdomen soft nontender there is a GJ tube is in place and there is another button in place Extremities no edema or cyanosis CV line site is unremarkable in the left upper chest PERSONAL CONSULTANT alert awake appropriate no focal neurologic deficit port is out Labs Lab Laboratory Tests Test 03/02/21 09:40 03/03/21 04:00 Prothrombin Time 14.5 SEC (11.7-14.0) Prothromb Time International Ratio 1.1 (0.8-1.1) White Blood Count 3.9 x10^3/uL (4.0-11.0) Red Blood Count 3.41 x10^6/uL (3.50-5.40) Hemoglobin 10.9 g/dL (12.0-15.5) Hematocrit 30.3 % (36.0-47.0) Mean Corpuscular Volume 89 fL (79-100) Mean Corpuscular Hemoglobin 32 pg (25-35) Mean Corpuscular Hemoglobin Concent 36 g/dL (31-37) Red Cell Distribution Width 13.3 % (11.5-14.5) Platelet Count 117 x10^3/uL (140-400) Neutrophils (%) (Auto) 56 % (31-73) Lymphocytes (%) (Auto) 32 % (24-48) Monocytes (%) (Auto) 10 % (0-9) Eosinophils (%) (Auto) 1 % (0-3) Basophils (%) (Auto) 0 % (0-3) Neutrophils # (Auto) 2.2 x10^3/uL (1.8-7.7) Lymphocytes # (Auto) 1.3 x10^3/uL (1.0-4.8) Monocytes # (Auto) 0.4 x10^3/uL (0.0-1.1) Eosinophils # (Auto) 0.0 x10^3/uL (0.0-0.7) Basophils # (Auto) 0.0 x10^3/uL (0.0-0.2) Sodium Level 142 mmol/L (136-145) Potassium Level 3.3 mmol/L (3.5-5.1) Chloride Level 105 mmol/L (98-107) Carbon Dioxide Level 27 mmol/L (21-32) Anion Gap 10 (6-14) Blood Urea Nitrogen 14 mg/dL (7-20) Creatinine 0.6 mg/dL (0.6-1.0) Estimated GFR (Cockcroft-Gault) 125.0 Glucose Level 101 mg/dL (70-99) Calcium Level 8.4 mg/dL (8.5-10.1) Magnesium Level 1.9 mg/dL (1.8-2.4) Micro Blood culture positive with Serena papulosis Objective Assessment Sepsis present on admission Fungemia 1 out of 4 bottles present on admission, likely central line associated bloodstream infection Nausea and vomiting Gastroparesis on TPN G-tube placement October 2020 History of migraine History of hypertension History of CVA History of multiple line infection Allergies to penicillin, sulfa Plan Plan of Care Continue micafungin Discussed with surgery ISAAC RODRIGUEZ MD Mar 03, 2021 08:36
[2021-03-03] MEDS: AA 4.25 %/CALCIUM/LYTES/D5W 1,000 ML IV SCH ×2 (08:44→17:06)
[2021-03-03] MEDS: MICAFUNGIN 100 MG in IV DEXTROSE 5% 100ML 100 ML IV SCH (08:48)
[2021-03-03] MEDS: IV NORMAL SALINE 1000ML BAG 1,000 ML IV SCH (08:49)
[2021-03-03] MEDS: ONDANSETRON PF 4 MG/2 ML VIAL. IVP PRN ×2 (08:50→20:11)
--- NOTE | 2021-03-03 09:14 | PDOC ---
HANNAH VALLE LINING BASTER 03/03/21 0914: SURGICAL PROGRESS NOTE DATE: 03/03/21 TIME: 09:13 Subjective resting pain unchanged Vital Signs Vital Signs Date Time Temp Pulse Resp B/P (MAP) Pulse Ox O2 Delivery O2 Flow Rate FiO2 03/03/21 07:38 Room Air 03/03/21 07:00 98.5 75 18 112/53 (72) 98 98.5 03/02/21 16:22 2.0 I&O Intake and Output 03/03/21 07:00 Intake Total 2900 ml Output Total 0 ml Balance 2900 ml Intake Oral 0 ml IV Total 1200 ml Other 1700 ml Output Urine Total 0 ml General: Alert, Cooperative Abdomen: Soft Labs Laboratory Tests Test 03/02/21 05:50 03/02/21 09:40 03/03/21 04:00 White Blood Count 3.7 x10^3/uL (4.0-11.0) 3.9 x10^3/uL (4.0-11.0) Red Blood Count 3.55 x10^6/uL (3.50-5.40) 3.41 x10^6/uL (3.50-5.40) Hemoglobin 11.1 g/dL (12.0-15.5) 10.9 g/dL (12.0-15.5) Hematocrit 32.2 % (36.0-47.0) 30.3 % (36.0-47.0) Mean Corpuscular Volume 91 fL (79-100) 89 fL (79-100) Mean Corpuscular Hemoglobin 31 pg (25-35) 32 pg (25-35) Mean Corpuscular Hemoglobin Concent 35 g/dL (31-37) 36 g/dL (31-37) Red Cell Distribution Width 13.2 % (11.5-14.5) 13.3 % (11.5-14.5) Platelet Count 81 x10^3/uL (140-400) 117 x10^3/uL (140-400) Neutrophils (%) (Auto) 66 % (31-73) 56 % (31-73) Lymphocytes (%) (Auto) 23 % (24-48) 32 % (24-48) Monocytes (%) (Auto) 10 % (0-9) 10 % (0-9) Eosinophils (%) (Auto) 0 % (0-3) 1 % (0-3) Basophils (%) (Auto) 0 % (0-3) 0 % (0-3) Neutrophils # (Auto) 2.4 x10^3/uL (1.8-7.7) 2.2 x10^3/uL (1.8-7.7) Lymphocytes # (Auto) 0.9 x10^3/uL (1.0-4.8) 1.3 x10^3/uL (1.0-4.8) Monocytes # (Auto) 0.4 x10^3/uL (0.0-1.1) 0.4 x10^3/uL (0.0-1.1) Eosinophils # (Auto) 0.0 x10^3/uL (0.0-0.7) 0.0 x10^3/uL (0.0-0.7) Basophils # (Auto) 0.0 x10^3/uL (0.0-0.2) 0.0 x10^3/uL (0.0-0.2) Sodium Level 141 mmol/L (136-145) 142 mmol/L (136-145) Potassium Level 3.3 mmol/L (3.5-5.1) 3.3 mmol/L (3.5-5.1) Chloride Level 104 mmol/L (98-107) 105 mmol/L (98-107) Carbon Dioxide Level 25 mmol/L (21-32) 27 mmol/L (21-32) Anion Gap 12 (6-14) 10 (6-14) Blood Urea Nitrogen 10 mg/dL (7-20) 14 mg/dL (7-20) Creatinine 0.6 mg/dL (0.6-1.0) 0.6 mg/dL (0.6-1.0) Estimated GFR (Cockcroft-Gault) 125.0 125.0 Glucose Level 78 mg/dL (70-99) 101 mg/dL (70-99) Calcium Level 8.6 mg/dL (8.5-10.1) 8.4 mg/dL (8.5-10.1) Magnesium Level 1.8 mg/dL (1.8-2.4) 1.9 mg/dL (1.8-2.4) Prothrombin Time 14.5 SEC (11.7-14.0) Prothromb Time International Ratio 1.1 (0.8-1.1) Laboratory Tests Test 03/02/21 09:40 03/03/21 04:00 Prothrombin Time 14.5 SEC (11.7-14.0) Prothromb Time International Ratio 1.1 (0.8-1.1) White Blood Count 3.9 x10^3/uL (4.0-11.0) Red Blood Count 3.41 x10^6/uL (3.50-5.40) Hemoglobin 10.9 g/dL (12.0-15.5) Hematocrit 30.3 % (36.0-47.0) Mean Corpuscular Volume 89 fL (79-100) Mean Corpuscular Hemoglobin 32 pg (25-35) Mean Corpuscular Hemoglobin Concent 36 g/dL (31-37) Red Cell Distribution Width 13.3 % (11.5-14.5) Platelet Count 117 x10^3/uL (140-400) Neutrophils (%) (Auto) 56 % (31-73) Lymphocytes (%) (Auto) 32 % (24-48) Monocytes (%) (Auto) 10 % (0-9) Eosinophils (%) (Auto) 1 % (0-3) Basophils (%) (Auto) 0 % (0-3) Neutrophils # (Auto) 2.2 x10^3/uL (1.8-7.7) Lymphocytes # (Auto) 1.3 x10^3/uL (1.0-4.8) Monocytes # (Auto) 0.4 x10^3/uL (0.0-1.1) Eosinophils # (Auto) 0.0 x10^3/uL (0.0-0.7) Basophils # (Auto) 0.0 x10^3/uL (0.0-0.2) Sodium Level 142 mmol/L (136-145) Potassium Level 3.3 mmol/L (3.5-5.1) Chloride Level 105 mmol/L (98-107) Carbon Dioxide Level 27 mmol/L (21-32) Anion Gap 10 (6-14) Blood Urea Nitrogen 14 mg/dL (7-20) Creatinine 0.6 mg/dL (0.6-1.0) Estimated GFR (Cockcroft-Gault) 125.0 Glucose Level 101 mg/dL (70-99) Calcium Level 8.4 mg/dL (8.5-10.1) Magnesium Level 1.9 mg/dL (1.8-2.4) Problem List Problems Medical Problems: (1) Fever Status: Acute (2) Intractable nausea and vomiting Status: Acute Assessment/Plan continue per IPC/ID--replace central line when approved by ID--can then resume TPN, work toward dc no acute surgical recs will continue outpt TPN management when discharges will sign off, please call with questions Justicifation of Admission Dx: Justifications for Admission: Justification of Admission Dx: Yes Sepsis: Bacteremia TORIE MILLER MD 03/03/21 1625: SURGICAL PROGRESS NOTE Assessment/Plan Pt seen and examined. Agree with Ms. Valle's note Pt feels a little better abd soft cont care per ID and primary. No surgical plans. Will sign off, but please call for questions. HANNAH VALLE LINING BASTER Mar 03, 2021 09:14 TORIE MILLER MD Mar 03, 2021 16:25
[2021-03-03 11:00] VITALS: BP 110/70
--- NOTE | 2021-03-03 14:21 | PDOC ---
[facility] PROGRESS NOTE Date of Service DOS: DATE: 03/03/21 TIME: 14:20 Chief Complaint Chief Complaint intractable abdominal pain on prior abd problems nausea and vominitg, Postoperative jejunostomy tube placement 11/17/2020 -ex lap, abdominal washout J-tube placement. chronically on TPN Lymphopenia Thrombocytopenia, Hx of UTI with Citrobacter and Stenotrophomonas Severe malnutrition Idiopathic autonomic neuropathy Severe gastroparesis chronically on TPN Cyclic vomiting syndrome GERD Pelvic floor dyssynergia (s/p therapy) s/p cholecystectomy. 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 Pain much better today family visited, her grandma was here when I visited Vitals/I&O Vitals/I&O: Vital Signs Date Time Temp Pulse Resp B/P (MAP) Pulse Ox O2 Delivery O2 Flow Rate FiO2 03/03/21 11:00 98.2 98 18 110/70 (83) Room Air 98.2 03/03/21 07:00 98 03/02/21 16:22 2.0 I & O 03/02/21 03/02/21 03/03/21 15:00 23:00 07:00 Intake Total 0 ml 2900 ml Output Total 0 ml 0 ml Balance 0 ml 0 ml 2900 ml Physical Exam Physical Exam: HEENT normal Neck supple no JVP no lymphadenopathy Lungs clear heart S1-S2 regular no gallop or murmur Abdomen soft nontender there is a GJ tube is in place and there is another button in place Extremities no edema or cyanosis CV line site is unremarkable in the left upper chest COMPOSITION FLOOR LAYER alert awake appropriate no focal neurologic deficit port is out General: Alert, Cooperative Lungs: Clear Abdomen: Soft Extremities: Normal pulses Skin: No breakdown Labs Labs: Laboratory Tests Test 03/03/21 04:00 White Blood Count 3.9 x10^3/uL (4.0-11.0) Red Blood Count 3.41 x10^6/uL (3.50-5.40) Hemoglobin 10.9 g/dL (12.0-15.5) Hematocrit 30.3 % (36.0-47.0) Mean Corpuscular Volume 89 fL (79-100) Mean Corpuscular Hemoglobin 32 pg (25-35) Mean Corpuscular Hemoglobin Concent 36 g/dL (31-37) Red Cell Distribution Width 13.3 % (11.5-14.5) Platelet Count 117 x10^3/uL (140-400) Neutrophils (%) (Auto) 56 % (31-73) Lymphocytes (%) (Auto) 32 % (24-48) Monocytes (%) (Auto) 10 % (0-9) Eosinophils (%) (Auto) 1 % (0-3) Basophils (%) (Auto) 0 % (0-3) Neutrophils # (Auto) 2.2 x10^3/uL (1.8-7.7) Lymphocytes # (Auto) 1.3 x10^3/uL (1.0-4.8) Monocytes # (Auto) 0.4 x10^3/uL (0.0-1.1) Eosinophils # (Auto) 0.0 x10^3/uL (0.0-0.7) Basophils # (Auto) 0.0 x10^3/uL (0.0-0.2) Sodium Level 142 mmol/L (136-145) Potassium Level 3.3 mmol/L (3.5-5.1) Chloride Level 105 mmol/L (98-107) Carbon Dioxide Level 27 mmol/L (21-32) Anion Gap 10 (6-14) Blood Urea Nitrogen 14 mg/dL (7-20) Creatinine 0.6 mg/dL (0.6-1.0) Estimated GFR (Cockcroft-Gault) 125.0 Glucose Level 101 mg/dL (70-99) Calcium Level 8.4 mg/dL (8.5-10.1) Magnesium Level 1.9 mg/dL (1.8-2.4) Assessment and Plan Assessmemt and Plan Problems Medical Problems: (1) Fever Status: Acute (2) Intractable nausea and vomiting Status: Acute Comment Review of Relevant I have reviewed the following items lalo (where applicable) has been applied. Justifications for Admission Other Justification Fever KRISTEN ESPAÑA MD Mar 03, 2021 14:21
[2021-03-03 15:00] VITALS: BP 98/50
[2021-03-03 19:30] VITALS: BP 110/65
[2021-03-03 23:30] VITALS: BP 96/47
[2021-03-04] MEDS: PROCHLORPERAZINE 10 MG/2 ML VIAL. IV PRN ×2 (02:53→12:26)
[2021-03-04] MEDS: AA 4.25 %/CALCIUM/LYTES/D5W 1,000 ML IV SCH ×2 (02:53→13:09)
[2021-03-04 03:05] VITALS: BP_SYST 159; BP_SYST 98; BP_DIAS 47; BP_DIAS 83
--- NOTE | 2021-03-04 03:33 | NUR ---
Vital signs entered at 0305 with B/P of 159/83 are another patients vital signs. Corrected these
[2021-03-04 07:00] VITALS: BP 100/50
--- NOTE | 2021-03-04 07:37 | PDOC ---
Infectious Disease Note Subjective Subjective Patient is feeling better ROS ROS No nausea vomiting diarrhea or fever Vital Sign Vital Signs Vital Signs Date Time Temp Pulse Resp B/P (MAP) Pulse Ox O2 Delivery O2 Flow Rate FiO2 03/04/21 07:17 Room Air 03/04/21 03:05 98.0 74 20 159/83 (108) 94 98.0 Physical Exam PHYSICAL EXAM HEENT normal Neck supple no JVP no lymphadenopathy Lungs clear heart S1-S2 regular no gallop or murmur Abdomen soft nontender there is a GJ tube is in place and there is another button in place Extremities no edema or cyanosis CV line site is unremarkable in the left upper chest FLASH DESIGNER alert awake appropriate no focal neurologic deficit port is out Labs Micro Blood culture positive with Serena papulosis Blood culture negative from 03/03/2021 Objective Assessment Sepsis present on admission Fungemia 1 out of 4 bottles present on admission, likely central line associated bloodstream infection Nausea and vomiting Gastroparesis on TPN G-tube placement October 2020 History of migraine History of hypertension History of CVA History of multiple line infection Allergies to penicillin, sulfa Plan Plan of Care Continue micafungin Blood culture remains negative tomorrow then put a PICC line and patient can be then discharged on micafungin Patient will need eye exam done that can be done outpatient ISAAC RODRIGUEZ MD Mar 04, 2021 07:37
[2021-03-04] MEDS: ONDANSETRON PF 4 MG/2 ML VIAL. IVP PRN ×2 (07:55→16:25)
[2021-03-04] MEDS: MICAFUNGIN 100 MG in IV DEXTROSE 5% 100ML 100 ML IV SCH (08:00)
[2021-03-04] MEDS: IV NORMAL SALINE 1000ML BAG 1,000 ML IV SCH (08:07)
[2021-03-04 11:00] VITALS: BP 108/65
--- NOTE | 2021-03-04 13:47 | PDOC ---
[facility] PROGRESS NOTE Date of Service DOS: DATE: 03/04/21 TIME: 13:46 Chief Complaint Chief Complaint intractable abdominal pain on prior abd problems nausea and vominitg, Postoperative jejunostomy tube placement 11/17/2020 -ex lap, abdominal washout J-tube placement. chronically on TPN Lymphopenia Thrombocytopenia, Hx of UTI with Citrobacter and Stenotrophomonas Severe malnutrition Idiopathic autonomic neuropathy Severe gastroparesis chronically on TPN Cyclic vomiting syndrome GERD Pelvic floor dyssynergia (s/p therapy) s/p cholecystectomy. History of Present Illness History of Present Illness CONTROLS DESIGNER changed today back to doses 2 days aog, if Cx neg tomorrow, may be able to replaced PICC and try to DC cont current other Pain controll good Vitals/I&O Vitals/I&O: Vital Signs Date Time Temp Pulse Resp B/P (MAP) Pulse Ox O2 Delivery O2 Flow Rate FiO2 03/04/21 11:00 98.0 66 18 108/65 (79) 98 Room Air 98.0 I & O 03/03/21 03/03/21 03/04/21 15:00 23:00 07:00 Intake Total 0 ml 0 ml 2400 ml Balance 0 ml 0 ml 2400 ml Physical Exam Physical Exam: HEENT normal Neck supple no JVP no lymphadenopathy Lungs clear heart S1-S2 regular no gallop or murmur Abdomen soft nontender there is a GJ tube is in place and there is another button in place Extremities no edema or cyanosis CV line site is unremarkable in the left upper chest FREIGHT ASSOCIATE alert awake appropriate no focal neurologic deficit port is out General: Alert, Cooperative Lungs: Clear Abdomen: Soft Extremities: Normal pulses Skin: No breakdown Assessment and Plan Assessmemt and Plan Problems Medical Problems: (1) Fever Status: Acute (2) Intractable nausea and vomiting Status: Acute Comment Review of Relevant I have reviewed the following items lalo (where applicable) has been applied. Justifications for Admission Other Justification Fever KRISTEN ESPAÑA MD Mar 04, 2021 13:47
[2021-03-04 15:00] VITALS: BP 112/68
--- NOTE | 2021-03-04 16:38 | NUR ---
Report given to DALLAS Berger for continuous of care. Addendum: 03/04/21 at 1639 by MARIA D NARAYANAN RN Report was given to DALLAS Conde not DALLAS Berger
--- NOTE | 2021-03-04 16:39 | NUR ---
Report given to DALLAS Conde for continuous of care.
[2021-03-04 19:10] VITALS: BP 100/52
[2021-03-04 23:05] VITALS: BP 108/66
[2021-03-05] VITALS: BP 108/66
[2021-03-05] MEDS: PROCHLORPERAZINE 10 MG/2 ML VIAL. IV PRN ×2 (00:12→15:25)
[2021-03-05] MEDS: AA 4.25 %/CALCIUM/LYTES/D5W 1,000 ML IV SCH ×2 (00:13→13:06)
[2021-03-05 03:00] VITALS: BP 92/50
[2021-03-05 07:00] VITALS: BP 101/89
--- NOTE | 2021-03-05 07:35 | PDOC ---
Infectious Disease Note Subjective Subjective Patient is feeling better ROS ROS no n/v/d/fever Vital Sign Vital Signs Vital Signs Date Time Temp Pulse Resp B/P (MAP) Pulse Ox O2 Delivery O2 Flow Rate FiO2 03/05/21 03:00 98.0 72 17 92/50 (64) 98 Nasal Cannula 2.0 98.0 Physical Exam PHYSICAL EXAM HEENT normal Neck supple no JVP no lymphadenopathy Lungs clear heart S1-S2 regular no gallop or murmur Abdomen soft nontender there is a GJ tube is in place and there is another button in place Extremities no edema or cyanosis CV line site is unremarkable in the left upper chest CUSTOMER SUPPORT REPRESENTATIVE alert awake appropriate no focal neurologic deficit port is out Labs Micro Blood culture positive with Serena papulosis Blood culture negative from 03/03/2021 Objective Assessment Sepsis present on admission Fungemia 1 out of 4 bottles present on admission, likely central line associated bloodstream infection Nausea and vomiting Gastroparesis on TPN G-tube placement October 2020 History of migraine History of hypertension History of CVA History of multiple line infection Allergies to penicillin, sulfa Plan Plan of Care Continue micafungin pt can have picc, and then d/c iv micafungin for til 03/17 BC neg from 03/03 need Eye exam , out pt ok ok to d/c ISAAC RODRIGUEZ MD Mar 05, 2021 07:35
[2021-03-05] MEDS: MICAFUNGIN 100 MG in IV DEXTROSE 5% 100ML 100 ML IV SCH (08:19)
[2021-03-05] MEDS: ONDANSETRON PF 4 MG/2 ML VIAL. IVP PRN ×2 (08:41→13:00)
[2021-03-05] MEDS: IV NORMAL SALINE 1000ML BAG 1,000 ML IV SCH (10:37)
[2021-03-05] MEDS ORDERED: LIDOCAINE WITH 8.4% SOD BICARB 3 ML DISP.SYRIN. ONE ×3 (10:57→12:13)
[2021-03-05 10:59] VITALS: BP 105/59
[2021-03-05] MEDS ORDERED: LIDOCAINE WITH 8.4% SOD BICARB 3 ML DISP.SYRIN. INJ ONE ×2 (11:30→12:30)
[2021-03-05] MEDS ORDERED: IOHEXOL 240 MG/ML 50ML VIAL. ONE (11:38)
[2021-03-05] MEDS ORDERED: NITROGLYCERIN 200 MCG/2 ML SYRINGE FOR CATH/VASC LAB. ONE (11:40)
[2021-03-05] MEDS ORDERED: NITROGLYCERIN 200 MCG/2 ML SYRINGE FOR CATH/VASC LAB. IART ONE (12:30)
[2021-03-05] MEDS ORDERED: IOHEXOL 240 MG/ML 50ML VIAL. IV ONE (12:30)
--- NOTE | 2021-03-05 13:54 | NUR ---
[facility] following. Discussed with RN, pt had PICC line replaced today. Script for IV Micafungin. [facility] faxed script to [facility] (pt is current with for TPN) and faxed clinicals to [facility] (ph: [phone] fax: [phone]). Awaiting confirmation from [facility], and [facility] discharge orders. [facility] will continue to follow. Addendum: 03/05/21 at 1547 by ELVI ALICEA Pt is covered at 100% for IV micafungin at home. [facility] is contacting pt to determine if she needs a teach prior to discharge or not. Discharge orders faxed to [facility] and [facility]. RN notified.
[2021-03-05 15:00] VITALS: BP 100/59
[2021-03-05] MEDS ORDERED: MICA100V4 IV (15:03)
[2021-03-05] MEDS ORDERED: HYDR15SO6 PO (15:03)
--- NOTE | 2021-03-05 15:06 | SNU/HH DC ---
DISCHARGE WITH HOME HEALTH DISCHARGE INFORMATION: Discharge Date: Mar 05, 2021 Final Diagnosis: fungemia malnutrition gastroparesis Problems Medical Problems: (1) Fever Status: Acute (2) Intractable nausea and vomiting Status: Acute Condition on Discharge: Stable CODE STATUS: Code Status: Full HOME HEALTH: Face to Face: I certify this patient is under my care and that I, had a face to face encounter that meets the physician face to face encounter requirements with this patient on 03/05 Medical Complications: Other (fungal infeciton, needs daily antifungal IV) Prison For: Medication Management RN For Eval/Treatment: Yes Physical Therapy For: Evalulation/Treatment Occupational Therapy For: Evaluation/Treatment Pt Meets Homebound Status: Unsteady balance w/ amb,, Fatigue w/ amb. POST DISCHARGE ORDERS: Activity Instructions for Disc: Activity as tolerated Weight Bearing Status after Di: No restrictions Bathing Instructions: Shower-keep dressing dry DIET AFTER DISCHARGE: Cardiac Wound/Incision Care: Keep wound/cast CDI CHECKS AFTER DISCHARGE: Checks after discharge: Check blood press - daily, Check your Temp as needed TREATMENT/EQUIPMENT ORDERS: Adaptive Equipment Issued: None CERTIFICATION STATEMENT: Certification Statement: Certification Statement: Based on the above finding, I certify that this patient is confined to the home and needs intermittent prison care, physical therapy and/or speech therapy, or continues to need occupational therapy.~ This patient is under my care, and I have initiated the establishment of the plan of care.~ This patient will be followed by myself or a community physician who will periodically review the plan of care. Home Meds Active Scripts Micafungin Sodium (Micafungin) 100 Mg Vial, 100 MG IV DAILY10 for fungal infection for 12 Days, #12 EACH Prov:KRISTEN ESPAÑA MD 03/05/21 Hydrocodone Bit/Acetaminophen (HYDROCODONE-APAP 7.5-325/15 SOLN ) 15 Ml Solution, 15 ML PO PRN Q6HRS PRN for PAIN, #225 ML 0 Refills Prov:KRISTEN ESPAÑA MD 03/05/21 Scopolamine (TRANSDERM-SCOP) 1 Each Patch.td72, 1 PATCH TP Q3DAYS, #4 PATCH Prov:LEXII CARRANZA DO 02/24/21 [Tpn Per Pharmacy] 1 EACH EACH No Conflict Check, 1 EACH MC PRN DAILY PRN for SEE COMMENTS for 30 Days, #60 Prov:JEFFERSON XAVIER MD 01/25/21 Ondansetron Hcl/Pf (ONDANSETRON HCL 4 MG/2 ML VIAL) 4 Mg/2 Ml Vial, 4 MG IVP PRN Q6HRS PRN for NAUSEA/VOMITING 1ST CHOICE for 30 Days, #90 EACH Prov:JEFFERSON XAVIER MD 11/30/19 Bisacodyl (BISACODYL) 10 Mg Supp.rect, 10 MG AK PRN DAILY PRN for CONSTIPATION, 1sT CHOICE for 30 Days, #30 SUPP.RECT Prov:JEFFERSON XVAIER MD 11/30/19 Reported Medications Valproate Sodium (VALPROIC ACID) 500 Mg/10 Ml Solution, 500 MG JT BID for TREMORS/SHAKING, MISC 11/14/20 Metoprolol Tartrate (Metoprolol Tartrate) 75 Mg Tablet, 25 MG PO BID for HEADACHES, TAB 11/14/20 Hyoscyamine Sulfate (LEVBID) 0.375 Mg Tab.er.12h, 0.375 MG JT BID for REFLUX, TAB.SR 11/14/20 Famotidine (FAMOTIDINE) 40 Mg Tablet, 40 MG IV DAILY for REFLUX, TAB 11/14/20 Tiotropium [place] (SPIRIVA) 18 Mcg Cap.w.dev, 2 INH IH BID for ASTHMA, #1 INH 0 Refills 11/14/20 Fluticasone/Vilanterol (Breo Ellipta 200-25 Mcg INH) 1 Each Blst.w.dev, 1 PUFF IH BID for ASTHMA, EACH 11/14/20 Docusate Sodium (DOCUSATE SODIUM) 100 Mg Capsule, 1 CAP PO DAILY for constipation for 30 Days, #30 CAP 0 Refills 06/25/20 Fremanezumab-Vfrm (Ajovy Autoinjector) 225 Mg/1.5 Ml Auto.injct, 225 MG SQ QMONTH for migraine, SYR 05/23/20 Tizanidine Hcl (TIZANIDINE HCL) 2 Mg Capsule, 2 MG JT Q8HRS PRN for MUSCLE SPASMS, CAP 05/23/20 Gabapentin (GABAPENTIN) 600 Mg Tablet, 300 MG JT TID for NEUROGENIC PAIN, TAB 05/21/20 Midodrine Hcl (MIDODRINE HCL) 5 Mg Tablet, 5 MG SL BID for Ortho Hypo, TAB 05/21/20 Magnesium Hydroxide (MILK OF MAGNESIA) 400 Mg/5 Ml Oral.susp, 400 MG JT PRN DAILY for constipation MDD 400mg, MISC 02/20/20 Mirtazapine (MIRTAZAPINE) 30 Mg Tab.rapdis, 45 MG PO QHS for depression for 30 Days, #45 TAB 0 Refills 02/20/20 Olopatadine HCl (Olopatadine HCl) 5 Ml Drops, 0.1 % OP PRN DAILY PRN for eye relief, DROP 08/20/19 Cholecalciferol (Vitamin D3) (VITAMIN D3) 4,000 Unit Capsule, 2000 UNIT JT HS for supplement, CAP 08/20/19 Levocetirizine Dihydrochloride (XYZAL) 5 Mg Tablet, 10 MG GT BID for allergies, TAB 08/20/19 Albuterol Sulfate (Proair Hfa) 8.5 Gm Hfa.aer.ad, 2 PUFF IH PRN Q4-6HRS PRN for wheezing for 21 Days, #1 INHALER 0 Refills 08/20/19 Ipratropium [place] (IPRATROPIUM BROMIDE) 30 Ml [place], 1 SPRAY NS BID for allergies, SPRAY 08/20/19 Ipratropium/Albuterol Sulfate (DUONEB 0.5-3(2.5) MG/3 ML) 3 Ml Ampul.neb, 3 ML NEB PRN QID PRN for asthma, EACH 08/20/19 Montelukast Sodium (MONTELUKAST SODIUM TABLET ) 10 Mg Tablet, 10 MG PO DAILY PRN for asthma, TAB 0 Refills 08/20/19 Multivitamin (MULTI VITAMIN DAILY) 1 Each Tablet, 1 EACH GT DAILY for supplement, TAB 08/20/19 Discontinued Reported Medications Scopolamine (TRANSDERM-SCOP) 1 Each Patch.td72, 1 PATCH TP Q3DAYS for CONTROL NAUSEA, #4 PATCH 11/14/20 [Tpn Per Pharmacy] No Conflict Check, 1 EA IV UD for ALTERED NUTRITION STATUS 11/14/20 Hydrocodone Bit/Acetaminophen (HYDROCODONE-APAP 5-325 ) 1 Tab Tablet, 1 TAB JT PRN Q6HRS PRN for PAIN, TAB 0 Refills 11/14/20 Tramadol HCl (Tramadol HCl ER) 100 Mg Cpbp.25.75, 100 MG JT BID for pain, EACH 06/25/20 Discontinued Scripts Cefdinir (CEFDINIR) 300 Mg Capsule, 1 CAP PO BID for 14 Days, #28 CAP Prov:KARL FRANK MD 02/01/21 Cefdinir (CEFDINIR) 300 Mg Capsule, 1 CAP PO BID for 14 Days, #28 CAP 0 Refills Prov:KARL FRANK MD 02/01/21 KRISTEN ESPAÑA MD Mar 05, 2021 15:06
--- NOTE | 2021-03-05 15:09 | PDOC3 ---
Discharge Summary Visit Information Date of Admission: Feb 28, 2021 Date of Discharge: Mar 05, 2021 Final Diagnosis sepsis, fungemia, jose papulosis intractable abdominal pain on prior abd problems nausea and vominitg, Postoperative jejunostomy tube placement 11/17/2020 -ex lap, abdominal washout J-tube placement. chronically on TPN Lymphopenia Thrombocytopenia, Severe malnutrition Idiopathic autonomic neuropathy Severe gastroparesis chronically on TPN Cyclic vomiting syndrome GERD Pelvic floor dyssynergia (s/p therapy) s/p cholecystectomy. Problems Medical Problems: (1) Fever Status: Acute (2) Intractable nausea and vomiting Status: Acute Brief Hospital Course Allergies Allergies Coded Allergies Type Severity Reaction Last Updated Verified iron Allergy Severe Anaphylaxis 01/16/21 Yes Penicillins Allergy Intermediate LIGHT RASH CHILD 01/16/21 Yes Sulfa (Sulfonamide Antibiotics) Allergy Intermediate 01/16/21 Yes I S O L A T I O N *CONTACT* Allergy Unknown 11/17/20 Yes Vital Signs Vital Signs Date Time Temp Pulse Resp B/P (MAP) Pulse Ox O2 Delivery O2 Flow Rate FiO2 03/05/21 10:59 98.5 74 18 105/59 (74) 100 Nasal Cannula 2.0 98.5 Brief Hospital Course Ms. Mustafa is a 20 old female with extensive GI history, mult surgeries, J tube. f./u GI Adn gen surg. admit for sepsis, and nausea and marked pain. bloos cx grew fungus, IV abx given on amdit, PICC pulled, days of abx and antifungal given, pt non-toxic and ready to DC, PICC replaced, shecomplains of severe pain from PICC and wanted pain meds, discussed Discharge Information Condition at Discharge: Improved Follow Up: Weeks Disposition/Orders: D/C to Home w/ HH Scheduled Cholecalciferol (Vitamin D3) (Vitamin D3) 4,000 Unit Capsule, 2,000 UNIT JT HS for supplement, (Reported) Entered as Reported by: BUSTER MCCOLLUM on 08/20/19 1219 Docusate Sodium (Docusate Sodium) 100 Mg Capsule, 1 CAP PO DAILY for constipation for 30 Days, #30 Ref 0 (Reported) Entered as Reported by: Yamileth Gomez on 06/25/20 0801 Famotidine (Famotidine) 40 Mg Tablet, 40 MG IV DAILY for REFLUX, (Reported) Entered as Reported by: BUSTER MCCOLLUM on 11/14/20929 Fluticasone/Vilanterol (Breo Ellipta 200-25 Mcg INH) 1 Each Blst.w.dev, 1 PUFF IH BID for ASTHMA, (Reported) Entered as Reported by: BUSTER MCCOLLUM on 11/14/20929 Fremanezumab-Vfrm (Ajovy Autoinjector) 225 Mg/1.5 Ml Auto.injct, 225 MG SQ QMONTH for migraine, (Reported) Entered as Reported by: RAMSES BANDA on 05/23/20 2248 Gabapentin (Gabapentin) 600 Mg Tablet, 300 MG JT TID for NEUROGENIC PAIN, (Reported) Entered as Reported by: YAMILETH TALAMANTES on 05/21/20 1232 Hyoscyamine Sulfate (Levbid) 0.375 Mg Tab.er.12h, 0.375 MG JT BID for REFLUX, (Reported) Entered as Reported by: BUSTER MCCOLLUM on 11/14/20929 Ipratropium [place] (Ipratropium [place]) 30 Ml [place], 1 SPRAY NS BID for allergies, (Reported) Entered as Reported by: BUSTER MCCOLLUM on 08/20/19 121 Levocetirizine Dihydrochloride (Xyzal) 5 Mg Tablet, 10 MG GT BID for allergies, (Reported) Entered as Reported by: BUSTER MCCOLLUM on 08/20/19 1219 Magnesium Hydroxide (Milk Of Magnesia) 400 Mg/5 Ml Oral.susp, 400 MG JT PRN DAILY for constipation MDD 400mg, (Reported) Entered as Reported by: MARCELINA QUIÑONEZ on 02/20/20 0423 Metoprolol Tartrate (Metoprolol Tartrate) 75 Mg Tablet, 25 MG PO BID for HEADACHES, (Reported) Entered as Reported by: BUSTER MCCOLLUM on 11/14/20929 Micafungin Sodium (Micafungin) 100 Mg Vial, 100 MG IV DAILY10 for fungal infection for 12 Days, #12 Prescribed by: KRISTEN ESPAÑA on 03/05/21 1503 Midodrine Hcl (Midodrine Hcl) 5 Mg Tablet, 5 MG SL BID for Ortho Hypo, (Reported) Entered as Reported by: YAMILETH TALAMANTES on 05/21/20 1232 Mirtazapine (Mirtazapine) 30 Mg Tab.rapdis, 45 MG PO QHS for depression for 30 Days, #45 Ref 0 (Reported) Entered as Reported by: MARCELINA QUIÑONEZ on 02/20/20 0423 Multivitamin (Multi Vitamin Daily) 1 Each Tablet, 1 EACH GT DAILY for supp lement, (Reported) Entered as Reported by: BUSTER MCCOLLUM on 08/20/19 1218 Scopolamine (Transderm-Scop) 1 Each Patch.td72, 1 PATCH TP Q3DAYS, #4 Prescribed by: LEXII CARRANZA DO on 02/24/21 1859 Tiotropium [place] (Spiriva) 18 Mcg Cap.w.dev, 2 INH IH BID for ASTHMA, #1 Ref 0 (Reported) Entered as Reported by: BUSTER MCCOLLUM on 11/14/20 0930 Valproate Sodium (Valproic Acid) 500 Mg/10 Ml Solution, 500 MG JT BID for TREMORS/SHAKING, (Reported) Entered as Reported by: BUSTER MCCOLLUM on 11/14/20 0939 Scheduled PRN Albuterol Sulfate (Proair Hfa) 8.5 Gm Hfa.aer.ad, 2 PUFF IH PRN Q4-6HRS PRN for wheezing for 21 Days, #1 Ref 0 (Reported) Entered as Reported by: BUSTER MCCOLLUM on 08/20/19 1219 Bisacodyl (Bisacodyl) 10 Mg Supp.rect, 10 MG ID PRN DAILY PRN for CONSTIPATION, 1sT CHOICE for 30 Days, #30 Prescribed by: JEFFERSON XAVIER MD on 11/30/19 1614 Hydrocodone Bit/Acetaminophen (Hydrocodone-Apap 7.5-325/15 Soln ) 15 Ml Solut ion, 15 ML PO PRN Q6HRS PRN for PAIN, #225 Ref 0 Prescribed by: KRISTEN ESPAÑA on 03/05/21 1504 Ipratropium/Albuterol Sulfate (Duoneb 0.5-3(2.5) Mg/3 Ml) 3 Ml Ampul.neb, 3 ML NEB PRN QID PRN for asthma, (Reported) Entered as Reported by: BUSTER MCCOLLUM on 08/20/19 1218 Montelukast Sodium (Montelukast Sodium Tablet ) 10 Mg Tablet, 10 MG PO DAILY PRN for asthma, Ref 0 (Reported) Entered as Reported by: BUSTER MCCOLLUM on 08/20/19 1218 Olopatadine HCl (Olopatadine HCl) 5 Ml Drops, 0.1 % OP PRN DAILY PRN for eye relief, (Reported) Entered as Reported by: BUSTER MCCOLLUM on 08/20/19 1219 Ondansetron Hcl/Pf (Ondansetron Hcl 4 Mg/2 Ml Vial) 4 Mg/2 Ml Vial, 4 MG IVP PRN Q6HRS PRN for NAUSEA/VOMITING 1ST CHOICE for 30 Days, #90 Prescribed by: JEFFERSON XAVIER MD on 11/30/19 1614 Tizanidine Hcl (Tizanidine Hcl) 2 Mg Capsule, 2 MG JT Q8HRS PRN for MUSCLE SPASMS, (Reported) Entered as Reported by: RAMSES BANDA on 05/23/20 2248 [Tpn Per Pharmacy] 1 EACH EACH, 1 EACH MC PRN DAILY PRN for SEE COMMENTS for 30 Days, #60 Prescribed by: JEFFERSON XAVIER MD on 01/25/21 1247 Discontinued Medications Cefdinir (Cefdinir) 300 Mg Capsule, 1 CAP PO BID for 14 Days, #28 Ref 0 Prescribed by: KARL FRANK MD on 02/01/21 1105 Cefdinir (Cefdinir) 300 Mg Capsule, 1 CAP PO BID for 14 Days, #28 Prescribed by: KARL FRANK MD on 02/01/21 1127 Hydrocodone Bit/Acetaminophen (Hydrocodone-Apap 5-325 ) 1 Tab Tablet, 1 TAB JT PRN Q6HRS PRN for PAIN, Ref 0 (Reported) Entered as Reported by: BUSTER MCCOLLUM on 11/14/20 0930 Scopolamine (Transderm-Scop) 1 Each Patch.td72, 1 PATCH TP Q3DAYS for CONTROL NAUSEA, #4 (Reported) Entered as Reported by: BUSTER MCCOLLUM on 11/14/20 09 Tramadol HCl (Tramadol HCl ER) 100 Mg Cpbp.25.75, 100 MG JT BID for pain, (Reported) Entered as Reported by: Yamileth Gomez on 06/25/20 0801 [Tpn Per Pharmacy] , 1 EA IV UD for ALTERED NUTRITION STATUS, (Reported) Entered as Reported by: BUSTER MCCOLLUM on 11/14/20 0930 Patient Instructions Patient Instructions > 30 min face to face, 39 minutes Justicifation of Admission Dx: Justifications for Admission: Justification of Admission Dx: Yes Sepsis: Bacteremia KRISTEN ESPAÑA MD Mar 05, 2021 15:09
--- NOTE | 2021-03-06 09:56 | RAD ---
Procedure: Attempted right upper extremity PICC line placement, contrast right upper extremity venogr aphy, left upper extremity PIC line placement. Clinical Indication: Adult female requiring central venous access. Multiple prior lines. Sedation: Local anesthesia only was provided Antibiotics: None Exposure: Kerma-Area Product: 3 Gycm2 Sterility: All elements of maximal sterile barrier technique including the use of a cap, mask, steril e gown, sterile gloves, large sterile sheet, appropriate hand hygiene, and 2% chlorhexidine for cutan eous antisepsis (or acceptable alternative antiseptic per current guidelines) were followed for this procedure. Consent: The procedure was explained in its entirety to the patient or the patients designated repres entative by a member of the treatment team, including a discussion of the risks, benefits and commonl y accepted alternatives to the procedure, as well as the expected consequences of no therapy whatsoev er. Discussion of the risks included, but was not limited to, those that are most frequent and thos e that are rare but possibly severe or life-threatening, as well as the possibility of unforeseen com plications. Technique and Findings: Following informed consent, the patient was prepped and draped in the usual s terile fashion. Ultrasound interrogation of the right arm revealed patency and compressibility of a right brachial vein. The basilic vein is also patent but very diminutive. No cephalic vein was identi fied. A hard copy ultrasound image was recorded. 1% Lidocaine was used to achieve local anesthesia an d a 21-gauge micropuncture needle was used to gain access to the targeted brachial vein. The needle w as exchanged over wire for a 5 Mongolian peel-away sheath which was used to attempt to deploy a PICC joselin e under fluoroscopic guidance. The PICC line would not pass however. Contrast sonography was performe d demonstrating for severe segment of severe venous spasm. A wire was successfully negotiated through the spasm, however the PICC line would not advance over the wire. 100 mcg of nitroglycerin was then administered intravenously and 2 separate 50 mcg aliquots. Following a 20 minute delay, spasm failed to resolve. Consequently, the left arm was prepped and draped in usual sterile fashion. Ultrasound in terrogation was performed demonstrating patency of the high brachial vein. Hardcopy ultrasound image was again recorded as a 21-gauge micropuncture needle was used to gain access to this vein. The needl e was exchanged over wire for 5 Mongolian sheath which was used to deploy a PICC line under fluoroscopic guidance such that the distal tip resided at the cavoatrial junction. The contralateral right PICC l ine and sheath were removed and hemostasis was achieved with manual compression. The properly positio n left PICC line catheter flushed and aspirated with ease and was sutured to the skin. Complications: No immediate Impression: 1. Ultrasound guided attempted right upper extremity PICC line placement, unsuccessful due to venous spasm as depicted by contrast venography. 2. Successful ultrasound-guided left upper extremity PICC line placement as described. Electronically signed by: Fareed Griffin MD (03/06/2021 9:53 AM) [id number]
== END 2021-03-05 16:00 | disposition home health service (06) | DRG 871 ==
LOC: ER 11:47 → 4 NORTH 13:58
PROVIDERS: ADMIT Internal Medicine; ATTEND Internal Medicine
PROC: 0JPT3XZ Removal of Tunneled Vascular Access Device from Trunk Subcutaneous Tissue and Fascia, Percutaneous Approach (ICD-10-PCS; 2021-03-02)
PROC: 02PY33Z Removal of Infusion Device from Great Vessel, Percutaneous Approach (ICD-10-PCS; 2021-03-02)
PROC: 02HV33Z Insertion of Infusion Device into Superior Vena Cava, Percutaneous Approach (ICD-10-PCS; principal; 2021-03-05)
PROC: B5181ZA Fluoroscopy of Superior Vena Cava using Low Osmolar Contrast, Guidance (ICD-10-PCS; 2021-03-05)
PROC: B548ZZA Ultrasonography of Superior Vena Cava, Guidance (ICD-10-PCS; 2021-03-05)
PROC: B51M1ZZ Fluoroscopy of Right Upper Extremity Veins using Low Osmolar Contrast (ICD-10-PCS; 2021-03-05)
DX: A41.9 Sepsis, unspecified organism (principal); E43 Unspecified severe protein-calorie malnutrition; B49 Unspecified mycosis; D69.6 Thrombocytopenia, unspecified; D72.810 Lymphocytopenia; G90.9 Disorder of the autonomic nervous system, unspecified; I10 Essential (primary) hypertension; J45.909 Unspecified asthma, uncomplicated; K21.9 Gastro-esophageal reflux disease without esophagitis; K31.84 Gastroparesis; Z86.73 Personal history of transient ischemic attack (TIA), and cerebral infarction without residual deficits; Z87.440 Personal history of urinary (tract) infections; Z88.0 Allergy status to penicillin; Z88.2 Allergy status to sulfonamides; Z90.49 Acquired absence of other specified parts of digestive tract; Z93.4 Other artificial openings of gastrointestinal tract status; G43.909 Migraine, unspecified, not intractable, without status migrainosus; Z86.718 Personal history of other venous thrombosis and embolism; Z79.01 Long term (current) use of anticoagulants
CPT/HCPCS: 36415; 36573; 36589; 74018; 75820; 77001; 80048; 80053; 83690; 83735; 84100; 85025; 85610; 87040; 87070; 87106; 87426; 96374; C1750; C1892; J0780; J1170; J2060; J2248; J2270; J2405; J2765; J3010; J3490; J7030; J7060; Q9966; U0003; U0005; 99285-25; G0378

== ENCOUNTER 2021-03-14 17:09 | Emergency (ER) | payer OTHER, MEDICARE, MEDICAID ==
[~2021-03-14] VITALS: Ht 170.2 cm; Wt 71.8 kg
[~2021-03-14 17:09] MED LIST changes: +DICY20TA GT; -DICY20TA3 GT; +HYDR15SO6 PO; +MICA100V4 IV
--- NOTE | 2021-03-14 17:58 | PHYS DOC ---
Past Medical History Past Medical History: Asthma, DVT, GERD, Hypertension, Migraines, MRSA, Other Additional Past Medical Histor: GASTROPORESIS,RESP.FAILURE, SLEEP APNEA (KARL FRANK MD) Past Surgical History: Other Additional Past Surgical Histo: X 2 J-TUBES,G-TUBE,LEFT CHEST PORT (KARL FRANK MD) Smoking Status: Never Smoker Alcohol Use: None Drug Use: None (KARL FRANK MD) General Adult EDM: Chief Complaint: FLANK PAIN HPI: HPI: Patient is a 20 year old female with complicated past medical history including gastroparesis, malnutrition, G-tube placement, two J-tube's, PICC line, recurrent UTIs/pyelonephritis who presents with 7 days of dysuria and increasing flank pain. She is also complaining of fevers and chills at home. She also notes some increasing redness and discharge around her right sided J-tube and abdominal pain. Reports nausea. No vaginal discharge or bleeding. Not sexually active. Chart review shows recent urine cultures have shown pansensitive E faecalis and E. coli. (KARL FRANK MD) Review of Systems: Review of Systems: Constitutional: Reports fever and chills [] Eyes: Denies change in visual acuity. [] HENT: Denies nasal congestion or sore throat. [] Respiratory: Denies cough or shortness of breath. [] Cardiovascular: Denies chest pain or edema. [] GI: Reports abdominal pain and nausea. Denies vomiting, bloody stools or diarrhea. [] : Reports dysuria and flank pain. Reports decreased urine output. [] Musculoskeletal: Reports bilateral flank pain. Or joint pain. [] Integument: Denies rash. [] Neurologic: Denies headache, focal weakness or sensory changes. [] Endocrine: Denies polyuria or polydipsia. [] Lymphatic: Denies swollen glands. [] Psychiatric: Denies depression or anxiety. [] (KARL FRANK MD) Heart Score: C/O Chest Pain: No (KARL FRANK MD) Allergies: Allergies: Allergies Coded Allergies Type Severity Reaction Last Updated Verified iron Allergy Severe Anaphylaxis 01/16/21 Yes Penicillins Allergy Intermediate LIGHT RASH CHILD 01/16/21 Yes Sulfa (Sulfonamide Antibiotics) Allergy Intermediate 01/16/21 Yes I S O L A T I O N *CONTACT* Allergy Unknown 11/17/20 Yes (KARL FRANK MD) Physical Exam: PE: Constitutional: Ill-appearing, appears uncomfortable clutching abdomen HENT: Normocephalic, atraumatic Eyes: conjunctiva normal, no discharge. [] Neck: Normal range of motion, no tenderness, supple, no stridor. [] Cardiovascular: Tachycardic, no murmur [] Lungs & Thorax: Bilateral breath sounds clear to auscultation [] Abdomen: G-tube, to J-tube's. Right lower J-tube it shows some purulent expression and surrounding erythema. Diffuse tenderness to palpation with guarding. Skin: Left upper extremity PICC line without evidence of erythema or severe bebeto a. Dressing intact. Warm, dry, no erythema, no rash. [] Back: No tenderness, bilateral CVA tenderness Extremities: No tenderness, no cyanosis, no clubbing, ROM intact, no edema. [] Neurologic: Alert and oriented X 3, normal motor function, normal sensory function, no focal deficits noted. [] Psychologic: Affect normal, judgement normal, mood normal. [] (KARL FRANK MD) Current Patient Data: Vital Signs: Vital Signs Date Time Temp Pulse Resp B/P (MAP) Pulse Ox O2 Delivery O2 Flow Rate FiO2 03/14/21 17:30 98.1 101 24 135/81 (99) 100 Room Air 98.1 (KARL FRANK MD) Vital Signs: Vital Signs Date Time Temp Pulse Resp B/P (MAP) Pulse Ox O2 Delivery O2 Flow Rate FiO2 03/14/21 21:11 99 Room Air 03/14/21 18:34 100 Room Air 03/14/21 17:30 98.1 101 24 135/81 (99) 100 Room Air 98.1 (ELLIOTT PERALES DO) EKG: EKG: [] (KARL FRANK MD) Radiology/Procedures: Radiology/Procedures: [] (KARL FRANK MD) Course & Med Decision Making: Course & Med Decision Making Pertinent Labs and Imaging studies reviewed. (See chart for details) Patient a 20-year-old female with complex past medical history including G and J tubes, PICC line, recurrent UTIs, back gastroparesis who presents with bilateral flank pain, dysuria, fever. Is tachycardic and uncomfortable appearing on examination. She does have purulent discharge surrounding her J-tube. Septic work-up initiated including lactic acid and blood cultures. Cefepime ordered. We will pursue CT abdomen/pelvis given her J-tube changes. Will be signed out to oncoming attending with work-up and final disposition p ending. 1809 (KARL FRANK MD) Course & Med Decision Making 1800: Assumed care from Dr. Frank at this time Patient's current medical course discussed in rounds and patient is currently updated with medical plan pending diagnostics and reassessment Patient was given additional morphine for pain, diagnostics returning reassuring, patient has had tube that was mentioned in CT exchanged recently. Will hold off on treating for cellulitis due to this. Upon reassessment, the patient's pain is controlled, she has an appoint with Dr. Mohr on Tuesday to obtain more pain medicine and states that she is comfortable with the plan to follow-up with him for further narcotics. All questions answered, the patient had return precautions discussed -- EXAM: CT Abdomen and Pelvis with IV contrast CLINICAL HISTORY: Reason: abd/flank pain, J tube with redness and purulent discharge. diffuse tenderness. COMPARISON: none TECHNIQUE: Helical CT of the abdomen and pelvis was performed following the administration of intravenous contrast. Axial, coronal and sagittal reformatted images were generated. PQRS compliance statement - One or more of the following individualized dose reduction techniques were utilized for this study: 1. Automated exposure control 2. Adjustment of the mA and/or kV according to patient size 3. Use of iterative reconstruction technique FINDINGS: Lower Chest: Lung bases are clear. Abdomen and Pelvis: No focal liver lesion. Cholecystectomy clips are seen. Spleen is unremarkable. Adrenal glands are normal. Pancreas is normal in appearance. Symmetric nephrograms. No focal renal lesion. No hydronephrosis. No hydroureter. Bladder is unremarkable. Uterus and adnexa are grossly unremarkable. Small left adnexal follicle. Small volume free pelvic fluid, possibly physiologic. No abdominal or pelvic lymphadenopathy. Moderate colonic stool content is seen. No bowel obstruction. Gastrostomy tube is seen with tip in the stomach. A left-sided jejunostomy tube is seen with tip in the lumen of the small bowel. A right-sided jejunostomy tube is seen, the tip appears to be within the lumen although there is mild infiltration and edema along the subcutaneous tissues. No loculated abdominal or pelvic collection is seen. Bones: No aggressive osseous lesion is seen. Mild wedging lower thoracic spine physiologic wedging. IMPRESSION: 1. Right-sided jejunostomy tube tip appears to be within a small bowel loop however there is fluid and infiltration along the tract, suspicious for assoc iated cellulitis. However this was recently placed, postsurgical change may result in this appearance. 2. The gastrostomy tube and left jejunostomy tube appear grossly normal in appearance 3. Moderate colonic stool content. No bowel obstruction. 4. Trace free pelvic fluid may be physiologic. Electronically signed by: Lucius Jesus MD (03/14/2021 8:03 PM) Laboratory Tests Test 03/14/21 18:20 03/14/21 20:35 03/14/21 20:45 White Blood Count 3.8 x10^3/uL (4.0-11.0) Red Blood Count 3.92 x10^6/uL (3.50-5.40) Hemoglobin 12.3 g/dL (12.0-15.5) Hematocrit 35.4 % (36.0-47.0) Mean Corpuscular Volume 90 fL (79-100) Mean Corpuscular Hemoglobin 32 pg (25-35) Mean Corpuscular Hemoglobin Concent 35 g/dL (31-37) Red Cell Distribution Width 13.6 % (11.5-14.5) Platelet Count 141 x10^3/uL (140-400) Neutrophils (%) (Auto) 65 % (31-73) Lymphocytes (%) (Auto) 26 % (24-48) Monocytes (%) (Auto) 8 % (0-9) Eosinophils (%) (Auto) 1 % (0-3) Basophils (%) (Auto) 0 % (0-3) Neutrophils # (Auto) 2.5 x10^3/uL (1.8-7.7) Lymphocytes # (Auto) 1.0 x10^3/uL (1.0-4.8) Monocytes # (Auto) 0.3 x10^3/uL (0.0-1.1) Eosinophils # (Auto) 0.1 x10^3/uL (0.0-0.7) Basophils # (Auto) 0.0 x10^3/uL (0.0-0.2) Sodium Level 142 mmol/L (136-145) Potassium Level 4.2 mmol/L (3.5-5.1) Chloride Level 107 mmol/L (98-107) Carbon Dioxide Level 26 mmol/L (21-32) Anion Gap 9 (6-14) Blood Urea Nitrogen 13 mg/dL (7-20) Creatinine 0.7 mg/dL (0.6-1.0) Estimated GFR (Cockcroft-Gault) 104.6 BUN/Creatinine Ratio 19 (6-20) Glucose Level 88 mg/dL (70-99) Lactic Acid Level 0.8 mmol/L (0.4-2.0) Calcium Level 8.3 mg/dL (8.5-10.1) Total Bilirubin 0.2 mg/dL (0.2-1.0) Aspartate Amino Transf (AST/SGOT) 9 U/L (15-37) Alanine Aminotransferase (ALT/SGPT) 17 U/L (14-59) Alkaline Phosphatase 115 U/L (46-116) Total Protein 6.3 g/dL (6.4-8.2) Albumin 3.3 g/dL (3.4-5.0) Albumin/Globulin Ratio 1.1 (1.0-1.7) Urine Collection Type Unknown Urine Color Yellow Urine Clarity Clear Urine pH 7.0 (<5.0-8.0) Urine Specific [place] >=1.030 (1.000-1.030) Urine Protein Negative mg/dL (NEG-TRACE) Urine Glucose (UA) Negative mg/dL (NEG) Urine Ketones (Stick) Negative mg/dL (NEG) Urine Blood Negative (NEG) Urine Nitrite Negative (NEG) Urine Bilirubin Negative (NEG) Urine Urobilinogen Dipstick 0.2 mg/dL (0.2 mg/dL) Urine Leukocyte Esterase Negative (NEG) Urine RBC 0 /HPF (0-2) Urine WBC Occ /HPF (0-4) Urine Squamous Epithelial Cells Few /LPF Urine Bacteria 0 /HPF (0-FEW) Urine Mucus Slight /LPF Bedside Urine HCG, Qualitative Hcg negative (Negative) (ELLIOTT PERALES DO) Pooja Disclaimer: Pooja Disclaimer: This electronic medical record was generated, in whole or in part, using a voice recognition dictation system. (KARL FRANK MD) Departure Departure Impression: Primary Impression: Bilateral flank pain Disposition: HOME / SELF CARE / HOMELESS Condition: IMPROVED Referrals: [facility] (PCP) Patient Instructions: Flank Pain, [id number] Additional Instructions: You were seen in the emergency department for abdominal pain. Your tests did not show any obvious acute cause of your symptoms and your physical exam was non concerning for a dangerous disease process at this time. This however can change early in a disease course. You must return to the ED if you develop any new or worrisome symptoms for another exam. - Make sure to drink plenty of fluids at home - You may take a gentle laxative such as Miralax (over the counter) for bowel comfort. - Avoid drinking alcohol while you are having abdominal pain as this may wors en symptoms. - Return to the ER if you are not able to tolerate water and/or a normal diet, have increased pain or a change in character of your pain, develop a fever (>100.3 F), have nausea, vomiting and/or diarrhea that is unable to be treated at home, pass out, and/or you are not able to perform you normal daily activity. KARL FRANK MD Mar 14, 2021 17:58 ELLIOTT PERALES DO Mar 14, 2021 21:03
[2021-03-14] MEDS ORDERED: IV NORMAL SALINE 500ML BAG 500 ML IV PRN (18:00)
[2021-03-14] MEDS ORDERED: IV NORMAL SALINE 1000ML BAG 1,000 ML IV SCH (18:00)
[2021-03-14] MEDS ORDERED: MORPHINE SULFATE 4 MG/ML INJ. IVP ONE (18:00)
[2021-03-14] MEDS ORDERED: CEFEPIME HCL IV Push 2 GM VIAL. IVP ONE (18:00)
[2021-03-14 18:36] LABS: BASO % 0 % (0-3); EOS # 0.1 x10^3/uL (0.0-0.7); EOS % 1 % (0-3); HEMATOCRIT 35.4 % (36.0-47.0); HEMOGLOBIN 12.3 g/dL (12.0-15.5); LYMPH % 26 % (24-48); MEAN CORPUSCULAR HEMOGLOBIN 32 pg (25-35); MEAN CORPUSCULAR HGB CONC 35 g/dL (31-37); MEAN CORPUSCULAR VOLUME 90 fL (79-100); MONO # 0.3 x10^3/uL (0.0-1.1); MONO % 8 % (0-9); NEUT # 2.5 x10^3/uL (1.8-7.7); NEUT % 65 % (31-73); PLATELET COUNT 141 x10^3/uL (140-400); RED BLOOD COUNT 3.92 x10^6/uL (3.50-5.40); RED CELL DISTRIBUTION WIDTH 13.6 % (11.5-14.5); WHITE BLOOD COUNT 3.8 x10^3/uL (4.0-11.0)
[2021-03-14 18:46] LABS: CALCIUM 8.3 mg/dL (8.5-10.1); CREATININE 0.7 mg/dL (0.6-1.0); GFR 104.6; POTASSIUM 4.2 mmol/L (3.5-5.1)
[2021-03-14 18:52] LABS: ALBUMIN 3.3 g/dL (3.4-5.0); ALBUMIN/GLOBULIN RATIO 1.1 (1.0-1.7); TOTAL BILIRUBIN 0.2 mg/dL (0.2-1.0); TOTAL PROTEIN 6.3 g/dL (6.4-8.2)
[2021-03-14] MEDS ORDERED: IOHEXOL 300 MG/ML 100ML VIAL. IV ONE (19:15)
[2021-03-14] MEDS ORDERED: CONTRAST GIVEN. MC PRN (19:15)
--- NOTE | 2021-03-14 20:05 | RAD ---
EXAM: CT Abdomen and Pelvis with IV contrast CLINICAL HISTORY: Reason: abd/flank pain, J tube with redness and purulent discharge. diffuse tendern ess. COMPARISON: none TECHNIQUE: Helical CT of the abdomen and pelvis was performed following the administration of intrave nous contrast. Axial, coronal and sagittal reformatted images were generated. PQRS compliance statement - One or more of the following individualized dose reduction techniques wer e utilized for this study: 1. Automated exposure control 2. Adjustment of the mA and/or kV according to patient size 3. Use of iterative reconstruction technique FINDINGS: Lower Chest: Lung bases are clear. Abdomen and Pelvis: No focal liver lesion. Cholecystectomy clips are seen. Spleen is unremarkable. Adrenal glands are nor mal. Pancreas is normal in appearance. Symmetric nephrograms. No focal renal lesion. No hydronephrosi s. No hydroureter. Bladder is unremarkable. Uterus and adnexa are grossly unremarkable. Small left ad nexal follicle. Small volume free pelvic fluid, possibly physiologic. No abdominal or pelvic lymphadenopathy. Moderate colonic stool content is seen. No bowel obstruction. Gastrostomy tube is seen with tip in th e stomach. A left-sided jejunostomy tube is seen with tip in the lumen of the small bowel. A right-si ded jejunostomy tube is seen, the tip appears to be within the lumen although there is mild infiltrat ion and edema along the subcutaneous tissues. No loculated abdominal or pelvic collection is seen. Bones: No aggressive osseous lesion is seen. Mild wedging lower thoracic spine physiologic wedging. IMPRESSION: 1. Right-sided jejunostomy tube tip appears to be within a small bowel loop however there is fluid a nd infiltration along the tract, suspicious for associated cellulitis. However this was recently plac ed, postsurgical change may result in this appearance. 2. The gastrostomy tube and left jejunostomy tube appear grossly normal in appearance 3. Moderate colonic stool content. No bowel obstruction. 4. Trace free pelvic fluid may be physiologic. Electronically signed by: Lucius Jesus MD (03/14/2021 8:03 PM) [facility]
[2021-03-14 20:52] LABS: BILIRUBIN,URINE NEGATIVE (NEG); CLARITY,URINE CLEAR; COLOR,URINE YELLOW; NITRITE,URINE NEGATIVE (NEG); PROTEIN,URINE NEGATIVE (NEG-TRACE); UROBILINOGEN,URINE 0.2 mg/dL (0.2 mg/dL)
[2021-03-14 21:00] LABS: BACTERIA,URINE 0 /HPF (0-FEW); RBC,URINE 0 /HPF (0-2); WBC,URINE OCC /HPF (0-4)
[2021-03-14 21:22] VITALS: BP 103/55
[2021-03-14] MEDS ORDERED: MORPHINE SULFATE 4 MG/ML INJ. IV ONE (21:30)
[2021-03-15] MEDS ORDERED: CEFEPIME HCL IV Push 2 GM VIAL. IVP SCH (06:00)
== END 2021-03-14 21:45 | disposition home or self-care (01) ==
LOC: ER 17:09
DX: R10.84 Generalized abdominal pain (principal); R30.0 Dysuria; R50.9 Fever, unspecified; R11.0 Nausea; K21.9 Gastro-esophageal reflux disease without esophagitis; G43.909 Migraine, unspecified, not intractable, without status migrainosus; J45.909 Unspecified asthma, uncomplicated; Z86.718 Personal history of other venous thrombosis and embolism; Z86.14 Personal history of Methicillin resistant Staphylococcus aureus infection; Z88.0 Allergy status to penicillin; Z88.2 Allergy status to sulfonamides; Z91.041 Radiographic dye allergy status; Z88.8 Allergy status to other drugs, medicaments and biological substances
CPT/HCPCS: 36415; 74177; 80053; 81001; 81025; 83605; 85025; 96361; 96374; 96375; 96376; 99285; J0692; J2270; J7030; Q9967

== ENCOUNTER 2021-04-01 06:59 | Outpatient (CLI) | payer OTHER, MEDICARE, MEDICAID ==
[~2021-04-01] VITALS: Ht 170.2 cm; Wt 76.4 kg
[2021-04-01] MEDS ORDERED: ENOX80DI SQ (07:35)
[2021-04-01 07:41] VITALS: BP 126/76
[2021-04-01 07:44] LABS: PROTHROMBIN TIME PATIENT 12.7 SEC (11.7-14.0)
[2021-04-01] MEDS ORDERED: MIDAZOLAM HCL/PF 5 MG/5 ML VIAL. ONE (08:37)
[2021-04-01] MEDS ORDERED: fentaNYL PF VIAL 250 MCG/5 ML VIAL ONE (08:37)
[2021-04-01] MEDS ORDERED: LIDOCAINE 1%/EPI 1:100,000 20 ML VIAL. ONE (08:40)
[2021-04-01] MEDS ORDERED: IODIXANOL 320 MG/ML 50ML VIAL. ONE (08:40)
[2021-04-01] MEDS ORDERED: ceFAZolin SODIUM IV Push 1 GM VIAL. IVP ONE ×2 (09:00→10:00)
[2021-04-01] MEDS ORDERED: diphenhydrAMINE 50 MG/ML VIAL ONE (09:14)
[2021-04-01] MEDS ORDERED: MIDAZOLAM HCL/PF 5 MG/5 ML VIAL. IV ONE (09:30)
[2021-04-01] MEDS ORDERED: LIDOCAINE 1%/EPI 1:100,000 20 ML VIAL. INJ ONE (09:30)
[2021-04-01] MEDS ORDERED: fentaNYL PF VIAL 100 MCG/2 ML VIAL IV ONE (09:30)
[2021-04-01] MEDS ORDERED: 0.9 % SOD CHL for STERILE FIELD 10 ML DISP.SYRIN. IV ONE (09:30)
[2021-04-01] MEDS ORDERED: diphenhydrAMINE 50 MG/ML VIAL IVP ONE (09:30)
[2021-04-01 10:00] VITALS: BP 144/53
[2021-04-01] MEDS ORDERED: fentaNYL PF VIAL 250 MCG/5 ML VIAL IV ONE (10:00)
[2021-04-01 10:15] VITALS: BP 131/77
[2021-04-01 10:30] VITALS: BP 123/68
[2021-04-01 10:45] VITALS: BP 99/55
[2021-04-01 11:00] VITALS: BP 118/62
--- NOTE | 2021-04-01 11:10 | NUR ---
Discharge Note: SUNITHA SCHULTZ Discharge instructions and discharge home medications reviewed with Patient and a copy given. All questions have been answered and understanding verbalized. The following instructions and handouts were given: peg tube care,implanted port care,adult moderate sedation,incision care Discontinued lines and drains: PICC left in place in left upper arm. Patient stated she would check with Dr. Mohr to see if Home Health Nurse would pull the PICC once they use tara cath for TPN infusions. Patient discharged to Home or Self Care withParentvia Wheelchair.
--- NOTE | 2021-04-02 13:28 | RAD ---
04/01/2021 1. Fluoroscopic replacement of gastrostomy tube 2. Fluoroscopic replacement of left-sided jejunostomy tube 3. Fluoroscopic replacement of right jejunostomy tube 4. Right internal jugular power port placement with ultrasound and fluoroscopic guidance Consent: The procedure was explained in its entirety to the patient or the patients designated repres entative by a member of the treatment team, including a discussion of the risks, benefits and commonl y accepted alternatives to the procedure, as well as the expected consequences of no therapy whatsoev er. Discussion of the risks included, but was not limited to, those that are most frequent and thos e that are rare but possibly severe or life-threatening, as well as the possibility of unforeseen com plications. Sedation: The procedure was performed under conscious sedation including continuous cardiopulmonary m onitoring via a dedicated sedation nurse. Dqrz-yf-quon sedation time: 74 minutes Total fluoroscopy time 0.3 minutes Dose area product 1 Naik 7 sq m Anterior abdomen was prepped and draped using sterile barrier technique. Contrast was administered th rough the gastrostomy tube, and each of the 2 jejunostomy tubes. These tubes removed over a guidewire and replaced with new catheters respectively. The gastrostomy tube and right-sided jejunostomy tube are 20 Citizen [place]. The left-sided jejunostomy tube is 18 Citizen [place]. Contrast was administered confirming joy ropriate placement. Catheters were secured in place. Sterile dressings were applied. No immediate com plications were identified. The right neck and chest were prepped and draped using maximum sterile barrier technique including th e use of: Current guideline approved cutaneous antisepsis, a large sterile sheet to establish a steri le field. Additionally the nuclear equipment operator wore a hat, mask, sterile gloves, a sterile gown during the proce dure as well as practiced acceptable hand hygiene prior to placing the port. Ultrasound-guided access: Ultrasound evaluation showed the right jugular vein to be patent and compr essible. 1 % lidocaine with epinephrine was administered to the skin and subcutaneous tissues overlyi ng the right neck and chest. Under direct ultrasound guidance a single wall puncture was made followe d by tract dilation and placement of a sheath. An ultrasound image was saved and sent to PACS. Next, an incision was made in an infraclavicular location and a pocket created. The catheter was tunneled between the pocket and the venotomy site. The catheter was advanced through the peel away sheath, u nder fluoroscopic guidance, such that it's tip was in the mid right atrium. The catheter was connecte d to the port reservoir. The port was accessed and found to flush and aspirate normally. The reservoi r was then placed into the subcutaneous pocket. The wound was closed in layers using 2-0 Vicryl and 4 -0 Vicryl suture. Dermabond was applied overlying the wound, and venotomy site. The patient tolerated procedure without immediate complication. Impression: 1. Exchange of the patient's gastrostomy tube, and 2 separate jejunostomy tubes as described, with fl uoroscopic guidance 2. Placement of right internal jugular power port with ultrasound and fluoroscopic guidance Electronically signed by: Flo Cartwright MD (04/02/2021 1:26 PM) [id number]
[2021-04-12] MEDS ORDERED: HYDR10SO4 PO (12:50)
== END 2021-04-01 11:10 | disposition home or self-care (01) ==
LOC: INTRAD 06:59
PROVIDERS: ATTEND Surgery
DX: Z45.2 Encounter for adjustment and management of vascular access device (principal); J45.909 Unspecified asthma, uncomplicated; K21.9 Gastro-esophageal reflux disease without esophagitis; F41.9 Anxiety disorder, unspecified; F32.9 Major depressive disorder, single episode, unspecified; Z87.891 Personal history of nicotine dependence; Z79.899 Other long term (current) drug therapy; Z98.890 Other specified postprocedural states; Z88.0 Allergy status to penicillin; Z88.2 Allergy status to sulfonamides; Z88.8 Allergy status to other drugs, medicaments and biological substances
CPT/HCPCS: 36415; 36561; 49450; 49451; 76937; 77001; 85610; 99152; 99153; B4087; C1769; C1788; C1892; C1894; J0690; J1200; J2250; J3010; J3490

== ENCOUNTER 2021-04-03 09:46 | Outpatient (CLI) | payer OTHER, MEDICARE, MEDICAID ==
[~2021-04-03] VITALS: Ht 170.2 cm; Wt 75.0 kg
[~2021-04-03 09:46] MED LIST changes: +ENOX80DI SQ
[2021-04-03 10:33] VITALS: BP 129/72
[2021-04-03] MEDS ORDERED: LIDOCAINE WITH 8.4% SOD BICARB 3 ML DISP.SYRIN. ONE (11:21)
[2021-04-03] MEDS ORDERED: IOHEXOL 240 MG/ML 50ML VIAL. ONE (11:26)
[2021-04-03] MEDS ORDERED: fentaNYL PF VIAL 100 MCG/2 ML VIAL ONE (11:31)
[2021-04-03] MEDS ORDERED: MIDAZOLAM HCL/PF 2 MG/2 ML VIAL. ONE (11:31)
[2021-04-03] MEDS ORDERED: MIDAZOLAM HCL/PF 2 MG/2 ML VIAL. IV ONE (11:45)
[2021-04-03] MEDS ORDERED: IOHEXOL 240 MG/ML 50ML VIAL. INT ART ONE (11:45)
[2021-04-03] MEDS ORDERED: fentaNYL PF VIAL 100 MCG/2 ML VIAL IV ONE (11:45)
[2021-04-03 12:00] VITALS: BP 127/59
[2021-04-03 12:17] VITALS: BP 112/54
[2021-04-03 12:32] VITALS: BP 120/64
[2021-04-03 12:48] VITALS: BP 119/73
--- NOTE | 2021-04-03 13:00 | NUR ---
Discharge Note: SUNITHA SCHULTZ Discharge instructions and discharge home medications reviewed with Patient and a copy given. All questions have been answered and understanding verbalized. The following instructions and handouts were given: G-Tube placement and care, moderate sedation, and orders/instructions on how to procced with port a cath and PICC line. Discontinued lines and drains: N/A Patient discharged to home with Mother via Personal vehicle.
--- NOTE | 2021-04-03 15:01 | RAD ---
04/03/2021 Procedure: Replacement of gastrostomy tube through pre-existing tract INDICATION: Inadvertent removal Discussion: Informed consent was obtained. A timeout procedure was performed. Anterior abdomen was pr epped and draped using sterile barrier technique. Fluoroscopic guidewire and catheter were advanced t hrough the gastrostomy tube tract into stomach. This was confirmed with contrast. A new 18 [place] gas trostomy tube was advanced to tract. Catheter was secured in place. Contrast was administered confirm ing appropriate placement. Sterile dressings were applied. No immediate complications were identified . Sedation: The procedure was performed under conscious sedation including continuous cardiopulmonary m onitoring via a dedicated sedation nurse. Qzoz-fb-xldy sedation time: 15 minutes Total fluoroscopy time: 0.4 minutes Dose area product 3 Naik centimeter squared IMPRESSION: Fluoroscopically guided replacement of gastrostomy tube through pre-existing tract Electronically signed by: Flo Cartwright MD (04/03/2021 2:59 PM) [id number]
[2021-04-12] MEDS ORDERED: HYDR10SO4 PO (12:50)
== END 2021-04-03 13:00 | disposition home or self-care (01) ==
LOC: INTRAD 09:46
PROVIDERS: ATTEND Surgery
DX: Z43.1 Encounter for attention to gastrostomy (principal); T85.698A Other mechanical complication of other specified internal prosthetic devices, implants and grafts, initial encounter; J45.909 Unspecified asthma, uncomplicated; G47.30 Sleep apnea, unspecified; K21.9 Gastro-esophageal reflux disease without esophagitis; F41.9 Anxiety disorder, unspecified; F32.9 Major depressive disorder, single episode, unspecified; Z79.899 Other long term (current) drug therapy; Z98.890 Other specified postprocedural states; Z88.0 Allergy status to penicillin; Z88.2 Allergy status to sulfonamides; Z88.8 Allergy status to other drugs, medicaments and biological substances
CPT/HCPCS: 49450; 99152; B4087; C1769; J2250; J3010; Q9966

== ENCOUNTER 2021-04-07 23:28 | Inpatient (IN) | payer OTHER, MEDICARE, MEDICAID ==
[~2021-04-07] VITALS: Ht 170.2 cm; Wt 83.0 kg
--- NOTE | 2021-04-08 00:38 | ED.ADGEN ---
Past Medical History Past Medical History: Asthma, DVT, GERD, Hypertension, Migraines, MRSA, Other Additional Past Medical Histor: GASTROPORESIS,RESP.FAILURE, SLEEP APNEA Past Surgical History: Other Additional Past Surgical Histo: X 2 J-TUBES,G-TUBE,LEFT CHEST PORT Smoking Status: Never Smoker Alcohol Use: None Drug Use: None General Adult EDM: Chief Complaint: ABDOMINAL PAIN HPI: HPI: Patient is a 20 year old female coming in for severe right lower quadrant pain starting about 8 hours prior to arrival. Patient says the pain is sharp and has not moved. Has had some nausea, has not vomited. Is taken her IV Compazine and Zofran. Patient has a history of idiopathic breath paresis and has TPN pump running. Has a new abdominal surgical still has her gallbladder appendix. Has history of ovarian cyst and takes control to control them Review of Systems: Review of Systems: All other systems within normal limits except for as noted in the HPI Current Medications: Current Medications Medications (Trade) Dose Ordered Sig/Kel Start Time Stop Time Status Last Admin Dose Admin Diphenhydramine HCl (Benadryl) 25 mg 1X ONCE 04/08/21 01:15 04/08/21 01:16 DC 04/08/21 01:16 25 MG Fentanyl Citrate (Fentanyl 2ml Vial) 75 mcg 1X ONCE 04/08/21 00:45 04/08/21 00:46 DC 04/08/21 01:16 75 MCG Info (CONTRAST GIVEN -- Rx MONITORING) 1 each PRN DAILY PRN 04/08/21 01:15 04/10/21 01:14 Iohexol (Omnipaque 300 Mg/ml) 75 ml 1X ONCE 04/08/21 01:15 04/08/21 01:16 DC 04/08/21 01:29 75 ML Allergies: Allergies: Allergies Coded Allergies Type Severity Reaction Last Updated Verified iron Allergy Severe Anaphylaxis 01/16/21 Yes Penicillins Allergy Intermediate LIGHT RASH CHILD 01/16/21 Yes Sulfa (Sulfonamide Antibiotics) Allergy Intermediate 01/16/21 Yes I S O L A T I O N *CONTACT* Allergy Unknown 11/17/20 Yes Physical Exam: PE: Constitutional: Well developed, well nourished, no acute distress, non-toxic appearance. [] HENT: Normocephalic, atraumatic, bilateral external ears normal, nose normal. [] Eyes: PERRLA, conjunctiva normal, no discharge. [] Neck: No rigidity, supple, no stridor. [] Cardiovascular: Regular rate and rhythm, brisk cap refill [] Lungs & Thorax: Non labored symmetric respirations, no tachypnea or respiratory distress [] Abdomen: Soft, nondistended, right lower quadrant tenderness palpation with guarding. Skin: Warm, dry, no erythema, no rash. [] Back: Unremarkable Extremities: No deformities, range of motion grossly intact, no lower extremity edema [] Neurologic: Alert and oriented X 3, no focal deficits noted. [] Psychologic: Affect normal, judgement normal, mood normal. [] Current Patient Data: Labs: Laboratory Tests Test 04/08/21 00:30 04/08/21 00:31 04/08/21 00:35 White Blood Count 8.3 x10^3/uL (4.0-11.0) Red Blood Count 3.44 x10^6/uL (3.50-5.40) L Hemoglobin 10.9 g/dL (12.0-15.5) L Hematocrit 32.4 % (36.0-47.0) L Mean Corpuscular Volume 94 fL (79-100) Mean Corpuscular Hemoglobin 32 pg (25-35) Mean Corpuscular Hemoglobin Concent 34 g/dL (31-37) Red Cell Distribution Width 14.9 % (11.5-14.5) H Platelet Count 125 x10^3/uL (140-400) L Neutrophils (%) (Auto) 80 % (31-73) H Lymphocytes (%) (Auto) 11 % (24-48) L Monocytes (%) (Auto) 8 % (0-9) Eosinophils (%) (Auto) 1 % (0-3) Basophils (%) (Auto) 0 % (0-3) Neutrophils # (Auto) 6.6 x10^3/uL (1.8-7.7) Lymphocytes # (Auto) 0.9 x10^3/uL (1.0-4.8) L Monocytes # (Auto) 0.7 x10^3/uL (0.0-1.1) Eosinophils # (Auto) 0.1 x10^3/uL (0.0-0.7) Basophils # (Auto) 0.0 x10^3/uL (0.0-0.2) Sodium Level 138 mmol/L (136-145) Potassium Level 4.1 mmol/L (3.5-5.1) Chloride Level 105 mmol/L (98-107) Carbon Dioxide Level 25 mmol/L (21-32) Anion Gap 8 (6-14) Blood Urea Nitrogen 15 mg/dL (7-20) Creatinine 0.6 mg/dL (0.6-1.0) Estimated GFR (Cockcroft-Gault) 125.0 BUN/Creatinine Ratio 25 (6-20) H Glucose Level 93 mg/dL (70-99) Lactic Acid Level 0.6 mmol/L (0.4-2.0) Calcium Level 8.3 mg/dL (8.5-10.1) L Phosphorus Level 3.1 mg/dL (2.6-4.7) Magnesium Level 2.2 mg/dL (1.8-2.4) Total Bilirubin 0.4 mg/dL (0.2-1.0) Aspartate Amino Transferase (AST) 6 U/L (15-37) L Alanine Aminotransferase (ALT) 15 U/L (14-59) Alkaline Phosphatase 98 U/L (46-116) Total Protein 6.7 g/dL (6.4-8.2) Albumin 3.7 g/dL (3.4-5.0) Albumin/Globulin Ratio 1.2 (1.0-1.7) Lipase 28 U/L (73-393) L POC Urine HCG, Qualitative Hcg negative (Negative) Urine Collection Type Void Urine Color Yellow Urine Clarity Clear Urine pH 6.0 (<5.0-8.0) Urine Specific [place] 1.015 (1.000-1.030) Urine Protein Negative mg/dL (NEG-TRACE) Urine Glucose (UA) Negative mg/dL (NEG) Urine Ketones (Stick) Negative mg/dL (NEG) Urine Blood Negative (NEG) Urine Nitrite Negative (NEG) Urine Bilirubin Negative (NEG) Urine Urobilinogen Dipstick 0.2 mg/dL (0.2 mg/dL) Urine Leukocyte Esterase Small (NEG) Urine RBC Rare /HPF (0-2) Urine WBC 5-10 /HPF (0-4) Urine Squamous Epithelial Cells Mod /LPF Urine Bacteria 0 /HPF (0-FEW) Urine Mucus Slight /LPF Laboratory Tests 04/08/21 00:30 Laboratory Tests 04/08/21 00:30 Vital Signs: Vital Signs Date Time Temp Pulse Resp B/P (MAP) Pulse Ox O2 Delivery O2 Flow Rate FiO2 04/08/21 01:45 136 137/94 (108) 87 Room Air 04/08/21 00:36 100.0 16 100.0 EKG: EKG: [] Heart Score: C/O Chest Pain: No Risk Factors: Risk Factors: DM, Current or recent (<one month) smoker, HTN, HLP, family history of CAD, obesity. Risk Scores: Score 0 - 3: 2.5% MACE over next 6 weeks - Discharge Home Score 4 - 6: 20.3% MACE over next 6 weeks - Admit for Clinical Observation Score 7 - 10: 72.7% MACE over next 6 weeks - Early Invasive Strategies Radiology/Procedures: Radiology/Procedures: [facility] [address] [place] [address] IMAGING REPORT Signed PATIENT: SUNITHA SCHULTZ ACCOUNT: [id number] : 2000 LOCATION: ER AGE: 20 SEX: F EXAM STATUS: REG ER ORD. PHYSICIAN: KASEY GOMEZ MD REASON: RLQ pain;OMNI 300, 75ML PROCEDURE: CT ABD PELV W/ IV CONTRST ONLY CT OF THE ABDOMEN AND PELVIS WITH IV CONTRAST. History: Right lower quadrant pain Comparison:None. Procedure: Contiguous axial images of the abdomen and pelvis were performed after the administration of 75 cc of Omni 300 IV contrast. Oral contrast: Yes. Findings: There is a gastric feeding tube and there is 2 jejunostomy tubes. There is mild free fluid in the pelvis. The appendix is seen in the mid pelvis above the bladder medial to the cecum and in the measures 11 mm in diameter and is enhancing and has a thickened wall and mild surrounding inflammation. Liver: Unremarkable Spleen: Unremarkable Pancreas: Unremarkable Adrenal Glands: Unremarkable Kidneys: Unremarkable There is no mass or lymphadenopathy. There is no free air. The urinary bladder appears normal. Impression: Findings consistent with acute appendicitis. There is mild free fluid in the pelvis however there is no free air or abscess. End Impression PQRS Compliance Statement: One or more of the following individualized dose reduction techniques were utilized for this examination: 1. Automated exposure control 2. Adjustment of the mA and/or kV according to patient size 3. Use of iterative reconstruction technique Electronically signed by: Amy Jarrell III, MD (04/08/2021 1:45 AM) [facility] DICTATED and SIGNED BY: AMY JARRELL III, MD DATE: 04/08/21 [id number] [] Course & Med Decision Making: Course & Med Decision Making Pertinent Labs and Imaging studies reviewed. (See chart for details) Consult placed to Dr. Santana, admitted to hospitalist. [] Dragon Disclaimer: Dragon Disclaimer: This electronic medical record was generated, in whole or in part, using a voice recognition dictation system. Departure Departure Impression: Primary Impression: Acute appendicitis Disposition: ADMITTED INPATIENT Admitting Physician: BRICE Condition: STABLE Referrals: ARASH YUN NP (PCP) KASEY GOMEZ MD Apr 08, 2021 00:38
[2021-04-08 00:42] LABS: BASO % 0 % (0-3); EOS # 0.1 x10^3/uL (0.0-0.7); EOS % 1 % (0-3); HEMATOCRIT 32.4 % (36.0-47.0); HEMOGLOBIN 10.9 g/dL (12.0-15.5); LYMPH # 0.9 x10^3/uL (1.0-4.8); LYMPH % 11 % (24-48); MEAN CORPUSCULAR HEMOGLOBIN 32 pg (25-35); MEAN CORPUSCULAR HGB CONC 34 g/dL (31-37); MEAN CORPUSCULAR VOLUME 94 fL (79-100); MONO # 0.7 x10^3/uL (0.0-1.1); MONO % 8 % (0-9); NEUT # 6.6 x10^3/uL (1.8-7.7); NEUT % 80 % (31-73); PLATELET COUNT 125 x10^3/uL (140-400); RED BLOOD COUNT 3.44 x10^6/uL (3.50-5.40); RED CELL DISTRIBUTION WIDTH 14.9 % (11.5-14.5); WHITE BLOOD COUNT 8.3 x10^3/uL (4.0-11.0)
[2021-04-08 00:43] LABS: BILIRUBIN,URINE NEGATIVE (NEG); CLARITY,URINE CLEAR; COLOR,URINE YELLOW; NITRITE,URINE NEGATIVE (NEG); PROTEIN,URINE NEGATIVE (NEG-TRACE); UROBILINOGEN,URINE 0.2 mg/dL (0.2 mg/dL)
[2021-04-08] MEDS ORDERED: fentaNYL PF VIAL 100 MCG/2 ML VIAL IVP ONE (00:45)
[2021-04-08 00:51] LABS: BACTERIA,URINE 0 /HPF (0-FEW); RBC,URINE RARE /HPF (0-2)
[2021-04-08 00:54] LABS: CALCIUM 8.3 mg/dL (8.5-10.1); CREATININE 0.6 mg/dL (0.6-1.0); POTASSIUM 4.1 mmol/L (3.5-5.1)
[2021-04-08 01:00] LABS: ALBUMIN 3.7 g/dL (3.4-5.0); ALBUMIN/GLOBULIN RATIO 1.2 (1.0-1.7); MAGNESIUM 2.2 mg/dL (1.8-2.4); PHOSPHORUS 3.1 mg/dL (2.6-4.7); TOTAL BILIRUBIN 0.4 mg/dL (0.2-1.0); TOTAL PROTEIN 6.7 g/dL (6.4-8.2)
[2021-04-08] MEDS ORDERED: IOHEXOL 300 MG/ML 100ML VIAL. IV ONE (01:15)
[2021-04-08] MEDS ORDERED: CONTRAST GIVEN. MC PRN (01:15)
[2021-04-08] MEDS ORDERED: diphenhydrAMINE 50 MG/ML VIAL IVP ONE (01:15)
--- NOTE | 2021-04-08 01:47 | RAD ---
CT OF THE ABDOMEN AND PELVIS WITH IV CONTRAST. History: Right lower quadrant pain Comparison:None. Procedure: Contiguous axial images of the abdomen and pelvis were performed after the administration of 75 cc o f Omni 300 IV contrast. Oral contrast: Yes. Findings: There is a gastric feeding tube and there is 2 jejunostomy tubes. There is mild free fluid in the pelvis. The appendix is seen in the mid pelvis above the bladder medial to the cecum and in the measures 11 m m in diameter and is enhancing and has a thickened wall and mild surrounding inflammation. Liver: Unremarkable Spleen: Unremarkable Pancreas: Unremarkable Adrenal Glands: Unremarkable Kidneys: Unremarkable There is no mass or lymphadenopathy. There is no free air. The urinary bladder appears normal. Impression: Findings consistent with acute appendicitis. There is mild free fluid in the pelvis however there is no free air or abscess. End Impression PQRS Compliance Statement: One or more of the following individualized dose reduction techniques were utilized for this examinat ion: 1. Automated exposure control 2. Adjustment of the mA and/or kV according to patient size 3. Use of iterative reconstruction technique Electronically signed by: Remigio Velez III, MD (04/08/2021 1:45 AM) [facility]
[2021-04-08] MEDS ORDERED: HYDROmorphone 2 MG/ML VIAL IVP ONE ×2 (02:15→02:30)
[2021-04-08] MEDS ORDERED: cefOXitin SODIUM IV Push 1 GM VIAL. IVP ONE (02:30)
[2021-04-08 03:00] VITALS: BP 125/72
--- NOTE | 2021-04-08 03:45 | NUR ---
The patient, SUNITHA SCHULTZ, 20 y/o, F admitted by , was given written information regarding hospital policies, unit procedures and contact persons. Valuables were checked and left with her.
[2021-04-08] MEDS: ONDANSETRON PF 4 MG/2 ML VIAL. IVP PRN ×2 (04:43→19:21)
[2021-04-08 07:00] VITALS: BP 113/65
[2021-04-08] MEDS: HYDROmorphone 2 MG/ML VIAL IVP PRN ×6 (08:22→22:50)
--- NOTE | 2021-04-08 10:09 | HP ---
DATE OF SERVICE: 04/08/2021 ADMIT DATE: 04/08/2021 CHIEF COMPLAINT: Abdominal pain. HISTORY OF PRESENT ILLNESS: The patient is a pleasant 20-year-old female well known to my service. We admit her often because she has severe gastroparesis. She actually has 3 ostomy tube. She has 2 jejunostomies and 1 G-tube. Now, she presents with right lower quadrant pain and we did imaging confirming appendicitis. I discussed the case with the ER physician. We are admitting the patient with consultation to General Surgery. PAST MEDICAL HISTORY: Multiple ostomies including 2 jejunostomies and 1 PEG tube, severe gastroparesis. She has a port and a PICC, asthma, DVT, GERD, hypertension, migraines, MRSA, respiratory failure with intubation, sepsis, depression, anxiety. ALLERGIES: PENICILLIN, SULFA AND IRON. FAMILY HISTORY: Anemia. SOCIAL HISTORY: She does not drink, smoke or take drugs. I believe she lives at home with her mom. 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 MEDICATIONS: Reviewed. Please refer to the MRAD. REVIEW OF SYSTEMS: GENERAL: No history of weight change, weakness or fevers. SKIN: No bruising, hair changes or rashes. EYES: No blurred, double or loss of vision. NOSE AND THROAT: No history of nosebleeds, hoarseness or sore throat. HEART: No history of palpitations, chest pain or shortness of breath on exertion. LUNGS: Denies cough, hemoptysis, wheezing or shortness of breath. GASTROINTESTINAL: She complains of abdominal pain. GENITOURINARY: No history of frequency, urgency, hesitancy or nocturia. NEUROLOGIC: Denies history of numbness, tingling, tremor or weakness. PSYCHIATRIC: No history of panic, anxiety or depression. ENDOCRINE: No history of heat or cold intolerance, polyuria or polydipsia. EXTREMITIES: Denies muscle weakness, joint pain, pain on walking or stiffness. . PHYSICAL EXAMINATION: VITALS: Within normal limits and are stable. GENERAL: No apparent distress. Alert and oriented. HEENT: Normal cephalic atraumatic, external auditory canals are patent EYES: Extraocular muscles are intact, pupils are equally round and reactive to light and accommodation MUSCULOSKELETAL: Well developed, well nourished, good range of motion ENDOCRINE: No thyromegaly was palpated LYMPHATICS: No cervical chain or axillary nodes were noted HEMATOPOIETIC: No bruising NECK: Supple, no JVD, no thyromegaly was noted. LUNGS: Clear to auscultation in all lung crain without rhonchi or wheezing. CHEST: She has a port. HEART: RRR, S1, S2 present. Peripheral pulses intact, no obvious murmurs were noted. ABDOMEN: She has multiple ostomies, 2 jejunostomies and 1 PEG. EXTREMITIES: She has a PICC line. NEUROLOGIC: Normal speech, normal tone. A and O x 3, moves all extremities, no obvious focal deficits. PSYCHIATRIC: She is depressed.. SKIN: No ulcerations or rashes, good skin turgor, no jaundice. VASCULAR: Good capillary refill, neurovascular bundle appears to be intact. CT of the abdomen shows appendicitis. White count 8, hemoglobin 10.9, platelets 125. Electrolytes are normal. ASSESSMENT AND PLAN: Probable appendicitis. The patient has been admitted. We are consulting General Surgery. Home meds when possible. For now, we have her n.p.o., IV Levaquin, p.r.n. Dilaudid. Trend labs. IV fluids. Prognosis guarded. RAMON/BANDAR/SOT DR: RAMON/kimberly TID: [id number]
[2021-04-08 11:00] VITALS: BP 111/66
--- NOTE | 2021-04-08 13:39 | NUR ---
SW following. Discussed with RN, pt from home, room air, NPO, rapid COVID-19 negative. Pt having a lap appy today. Pt has [facility] per RN. SW will continue to follow.
[2021-04-08 15:00] VITALS: BP 122/66
[2021-04-08 17:02] VITALS: BP 122/66
[2021-04-08] MEDS ORDERED: diphenhydrAMINE 50 MG/ML VIAL IVP PRN (17:45)
[2021-04-08] MEDS ORDERED: PROPOFOL 10 MG/ML (20ML) VIAL. IV ONE (19:22)
[2021-04-08] MEDS ORDERED: DEXAMETHASONE SOD PHOS 4 MG/ML VIAL ONE (19:22)
[2021-04-08] MEDS ORDERED: ONDANSETRON PF 4 MG/2 ML VIAL. ONE (19:22)
[2021-04-08] MEDS ORDERED: SEVOFLURANE 61 TO 120 MINUTES. IH ONE ×2 (19:22→22:04)
[2021-04-08] MEDS ORDERED: fentaNYL PF VIAL 100 MCG/2 ML VIAL ONE (19:22)
[2021-04-08] MEDS ORDERED: ROCURONIUM 50 MG/5 ML VIAL. ONE (19:22)
[2021-04-08] MEDS ORDERED: LIDOCAINE 2% PF 5 ML VIAL. ONE (19:22)
--- NOTE | 2021-04-08 20:43 | PDOC2 ---
CONSULT Date of Consult Date of Consult DATE: 04/08/21 TIME: 20:38 Reason for Consult Reason for Consult: appendicitis Referring Physician Referring Physician: Dr. Bynum Identification/Chief Complaint Chief Complaint RLQ abd pain Source Source: Caregiver, Chart review, Patient History of Present Illness Reason for Visit: 20 yo F with chronic abd pain and bowel dysfunction. Pt's mother called last night and noted increased abd pain, RLQ. Pt evaluate in Er and diagnosed with appendicitis. Pt with persistent abd pain, despite pain meds and abx. Past Medical History Cardiovascular: HTN Pulmonary: No pertinent hx CENTRAL NERVOUS SYSTEM: Other GI: GERD, Other Heme/Onc: No pertinent hx Psych: Other Musculoskeletal: Other Rheumatologic: No pertinent hx Infectious disease: Other Renal/: UTI Endocrine: No pertinent hx Past Surgical History Past Surgical History: Other (multiple feeding tubes) Family History Family History: Hypertension, Family History Unknown Social History ALCOHOL: none Drugs: None Lives: with Family Current Problem List Problem List Problems Medical Problems: (1) Acute appendicitis Status: Acute Current Medications Current Medications Current Medications Fentanyl Citrate (Fentanyl 2ml Vial) 75 mcg 1X ONCE IVP Last administered on 04/08/21at 01:16; Start 04/08/21 at 00:45; Stop 04/08/21 at 00:46; Status DC Diphenhydramine HCl (Benadryl) 25 mg 1X ONCE IVP Last administered on 04/08/21at 01:16; Start 04/08/21 at 01:15; Stop 04/08/21 at 01:16; Status DC Iohexol (Omnipaque 300 Mg/ml) 75 ml 1X ONCE IV Last administered on 04/08/21at 01:29; Start 04/08/21 at 01:15; Stop 04/08/21 at 01:16; Status DC Info (CONTRAST GIVEN -- Rx MONITORING) 1 each PRN DAILY PRN MC SEE COMMENTS; Start 04/08/21 at 01:15; Stop 04/10/21 at 01:14 Cefoxitin Sodium (Mefoxin) 1 gm ONCE ONCE IVP Last administered on 04/08/21at 02:31; Start 04/08/21 at 02:30; Stop 04/08/21 at 02:31; Status DC Hydromorphone HCl (Dilaudid) 1 mg 1X ONCE IVP Last administered on 04/08/21at 02:31; Start 04/08/21 at 02:15; Stop 04/08/21 at 02:16; Status DC Ondansetron HCl (Zofran) 4 mg PRN Q8HRS PRN IVP NAUSEA/VOMITING Last administered on 04/08/21at 19:21; Start 04/08/21 at 02:30; Stop 04/09/21 at 02:29 Hydromorphone HCl (Dilaudid) 1 mg PRN Q2HR ONCE IVP Last administered on 04/08/21at 04:44; Start 04/08/21 at 02:30; Stop 04/08/21 at 02:31; Status DC Hydromorphone HCl (Dilaudid) 2 mg PRN Q3HRS PRN IVP PAIN Last administered on 04/08/21at 19:22; Start 04/08/21 at 07:15 Levofloxacin/ Dextrose 100 ml @ 100 mls/hr Q24H IV Last administered on 04/08/21at 08:21; Start 04/08/21 at 08:00 Fentanyl Citrate (Fentanyl 2ml Vial) 25 mcg PRN Q5MIN PRN IVP MILD PAIN 1-3; Start 04/09/21 at 06:00; Stop 04/10/21 at 05:59 Fentanyl Citrate (Fentanyl 2ml Vial) 50 mcg PRN Q5MIN PRN IVP MODERATE PAIN 4- 6; Start 04/09/21 at 06:00; Stop 04/10/21 at 05:59 Morphine Sulfate (Morphine Sulfate) 1 mg PRN Q10MIN PRN IVP SEVERE PAIN 7-10; Start 04/09/21 at 06:00; Stop 04/10/21 at 05:59 Ringer's Solution 1,000 ml @ 30 mls/hr Q24H IV Last administered on 04/08/21at 19:20; Start 04/09/21 at 06:00; Stop 04/09/21 at 17:59 Hydromorphone HCl (Dilaudid) 0.5 mg PRN Q10MIN PRN IVP SEVERE PAIN 7-10, 2nd CHOICE; Start 04/09/21 at 06:00; Stop 04/10/21 at 05:59 Prochlorperazine Edisylate (Compazine) 5 mg PACU PRN PRN IVP NAUSEA, MRX1; Start 04/09/21 at 06:00; Stop 04/10/21 at 05:59 Diphenhydramine HCl (Benadryl) 25 mg PRN Q6HRS PRN IVP ITCHING Last administered on 04/08/21at 17:57; Start 04/08/21 at 17:45 Fentanyl Citrate (Fentanyl 2ml Vial) 100 mcg STK-MED ONCE .ROUTE ; Start 04/08/21 at 19:22; Stop 04/08/21 at 19:22; Status DC Rocuronium [place] (Zemuron) 50 mg STK-MED ONCE .ROUTE ; Start 04/08/21 at 19:22; Stop 04/08/21 at 19:22; Status DC Propofol (Diprivan) 200 mg STK-MED ONCE IV ; Start 04/08/21 at 19:22; Stop 04/08/21 at 19:22; Status DC Lidocaine HCl (Lidocaine Pf 2% Vial) 5 ml STK-MED ONCE .ROUTE ; Start 04/08/21 at 19:22; Stop 04/08/21 at 19:22; Status DC Ondansetron HCl (Zofran) 4 mg STK-MED ONCE .ROUTE ; Start 04/08/21 at 19:22; Stop 04/08/21 at 19:22; Status DC Dexamethasone Sodium Phosphate (Decadron) 4 mg STK-MED ONCE .ROUTE ; Start at 19:22; Stop 04/08/21 at 19:22; Status DC Sevoflurane (Ultane) 60 ml STK-MED ONCE IH ; Start 04/08/21 at 19:22; Stop 04/08/21 at 19:22; Status DC Active Scripts Active Micafungin (Micafungin Sodium) 100 Mg Vial 100 Mg IV DAILY10 12 Days Hydrocodone-Apap 7.5-325/15 Soln (Hydrocodone Bit/Acetaminophen) 15 Ml Solution 15 Ml PO PRN Q6HRS PRN Transderm-Scop (Scopolamine) 1 Each Patch.td72 1 Patch TP Q3DAYS [Tpn Per Pharmacy] 1 EACH Each 1 Each MC PRN DAILY PRN 30 Days Ondansetron Hcl 4 Mg/2 Ml Vial (Ondansetron Hcl/Pf) 4 Mg/2 Ml Vial 4 Mg IVP PRN Q6HRS PRN 30 Days Bisacodyl 10 Mg Supp.rect 10 Mg MS PRN DAILY PRN 30 Days Reported Lovenox (Enoxaparin Sodium) 80 Mg/0.8 Ml Disp.syrin 80 Mg SQ DAILY Valproic Acid (Valproate Sodium) 500 Mg/10 Ml Solution 500 Mg JT BID Metoprolol Tartrate 75 Mg Tablet 25 Mg PO BID Levbid (Hyoscyamine Sulfate) 0.375 Mg Tab.er.12h 0.375 Mg JT BID Famotidine 40 Mg Tablet 40 Mg IV DAILY Spiriva (Tiotropium [place]) 18 Mcg Cap.w.dev 2 Inh IH BID Breo Ellipta 200-25 Mcg INH (Fluticasone/Vilanterol) 1 Each Blst.w.dev 1 Puff IH BID Docusate Sodium 100 Mg Capsule 1 Cap PO DAILY 30 Days [place] Autoinjector (Fremanezumab-Vfrm) 225 Mg/1.5 Ml Auto.injct 225 Mg SQ QMONTH Tizanidine Hcl 2 Mg Capsule 2 Mg JT Q8HRS PRN Gabapentin 600 Mg Tablet 300 Mg JT TID Midodrine Hcl 5 Mg Tablet 5 Mg SL BID Milk Of Magnesia (Magnesium Hydroxide) 400 Mg/5 Ml Oral.susp 400 Mg JT PRN DAILY MDD 400mg Mirtazapine 30 Mg Tab.rapdis 45 Mg PO QHS 30 Days Olopatadine HCl 5 Ml Drops 0.1 % OP PRN DAILY PRN Vitamin D3 (Cholecalciferol (Vitamin D3)) 4,000 Unit Capsule 2,000 Unit JT HS Xyzal (Levocetirizine Dihydrochloride) 5 Mg Tablet 10 Mg GT BID Proair Hfa (Albuterol Sulfate) 8.5 Gm Hfa.aer.ad 2 Puff IH PRN Q4-6HRS PRN 21 Days Ipratropium [place] 30 Ml [place] 1 [place] NS BID Duoneb 0.5-3(2.5) Mg/3 Ml (Albuterol/Ipratropium) 3 Ml Ampul.neb 3 Ml NEB PRN QID PRN Montelukast Sodium Tablet (Montelukast Sodium) 10 Mg Tablet 10 Mg PO DAILY PRN Multi Vitamin Daily (Multivitamin) 1 Each Tablet 1 Each GT DAILY Allergies Allergies: Coded Allergies: iron (Verified Allergy, Severe, Anaphylaxis, 04/08/21) Penicillins (Verified Allergy, Intermediate, LIGHT RASH CHILD, ) TOLERATES ZOSYN Sulfa (Sulfonamide Antibiotics) (Verified Allergy, Intermediate, 04/08/21) I S O L A T I O N *CONTACT* (Verified Allergy, Unknown, 04/08/21) mrsa ROS Gastrointestinal: Yes Nausea, Yes Vomiting, Yes Abdominal Pain Physical Exam General: Alert, Oriented X3, Cooperative, moderate distress HEENT: Atraumatic Lungs: Normal air movement Abdomen: Soft, Other (TTP RLQ, tubes in place) Extremities: No clubbing, No cyanosis Skin: No rashes, No breakdown Neuro: Normal speech, Sensation intact Psych/Mental Status: Mental status NL, Mood NL Vitals VITALS Vital Signs Date Time Temp Pulse Resp B/P (MAP) Pulse Ox O2 Delivery O2 Flow Rate FiO2 04/08/21 19:56 22 95 Room Air 04/08/21 19:52 97 121/66 04/08/21 19:30 99.0 99.0 Labs Labs Laboratory Tests Test 04/08/21 00:30 04/08/21 00:31 04/08/21 00:35 04/08/21 03:30 White Blood Count 8.3 x10^3/uL (4.0-11.0) Red Blood Count 3.44 x10^6/uL (3.50-5.40) Hemoglobin 10.9 g/dL (12.0-15.5) Hematocrit 32.4 % (36.0-47.0) Mean Corpuscular Volume 94 fL (79-100) Mean Corpuscular Hemoglobin 32 pg (25-35) Mean Corpuscular Hemoglobin Concent 34 g/dL (31-37) Red Cell Distribution Width 14.9 % (11.5-14.5) Platelet Count 125 x10^3/uL (140-400) Neutrophils (%) (Auto) 80 % (31-73) Lymphocytes (%) (Auto) 11 % (24-48) Monocytes (%) (Auto) 8 % (0-9) Eosinophils (%) (Auto) 1 % (0-3) Basophils (%) (Auto) 0 % (0-3) Neutrophils # (Auto) 6.6 x10^3/uL (1.8-7.7) Lymphocytes # (Auto) 0.9 x10^3/uL (1.0-4.8) Monocytes # (Auto) 0.7 x10^3/uL (0.0-1.1) Eosinophils # (Auto) 0.1 x10^3/uL (0.0-0.7) Basophils # (Auto) 0.0 x10^3/uL (0.0-0.2) Sodium Level 138 mmol/L (136-145) Potassium Level 4.1 mmol/L (3.5-5.1) Chloride Level 105 mmol/L (98-107) Carbon Dioxide Level 25 mmol/L (21-32) Anion Gap 8 (6-14) Blood Urea Nitrogen 15 mg/dL (7-20) Creatinine 0.6 mg/dL (0.6-1.0) Estimated GFR (Cockcroft-Gault) 125.0 BUN/Creatinine Ratio 25 (6-20) Glucose Level 93 mg/dL (70-99) Lactic Acid Level 0.6 mmol/L (0.4-2.0) Calcium Level 8.3 mg/dL (8.5-10.1) Phosphorus Level 3.1 mg/dL (2.6-4.7) Magnesium Level 2.2 mg/dL (1.8-2.4) Total Bilirubin 0.4 mg/dL (0.2-1.0) Aspartate Amino Transf (AST/SGOT) 6 U/L (15-37) Alanine Aminotransferase (ALT/SGPT) 15 U/L (14-59) Alkaline Phosphatase 98 U/L (46-116) Total Protein 6.7 g/dL (6.4-8.2) Albumin 3.7 g/dL (3.4-5.0) Albumin/Globulin Ratio 1.2 (1.0-1.7) Lipase 28 U/L (73-393) Bedside Urine HCG, Qualitative Hcg negative (Negative) Urine Collection Type Void Urine Color Yellow Urine Clarity Clear Urine pH 6.0 (<5.0-8.0) Urine Specific [place] 1.015 (1.000-1.030) Urine Protein Negative mg/dL (NEG-TRACE) Urine Glucose (UA) Negative mg/dL (NEG) Urine Ketones (Stick) Negative mg/dL (NEG) Urine Blood Negative (NEG) Urine Nitrite Negative (NEG) Urine Bilirubin Negative (NEG) Urine Urobilinogen Dipstick 0.2 mg/dL (0.2 mg/dL) Urine Leukocyte Esterase Small (NEG) Urine RBC Rare /HPF (0-2) Urine WBC 5-10 /HPF (0-4) Urine Squamous Epithelial Cells Mod /LPF Urine Bacteria 0 /HPF (0-FEW) Urine Mucus Slight /LPF SARS-CoV-2 RNA (SALVADOR) Negative (Negative) SARS-CoV-2 Antigen (Rapid) Negative (NEGATIVE) Test 04/08/21 20:01 Glucose (Fingerstick) 88 mg/dL (70-99) Laboratory Tests Test 04/08/21 00:30 04/08/21 00:31 04/08/21 00:35 04/08/21 03:30 White Blood Count 8.3 x10^3/uL (4.0-11.0) Red Blood Count 3.44 x10^6/uL (3.50-5.40) Hemoglobin 10.9 g/dL (12.0-15.5) Hematocrit 32.4 % (36.0-47.0) Mean Corpuscular Volume 94 fL (79-100) Mean Corpuscular Hemoglobin 32 pg (25-35) Mean Corpuscular Hemoglobin Concent 34 g/dL (31-37) Red Cell Distribution Width 14.9 % (11.5-14.5) Platelet Count 125 x10^3/uL (140-400) Neutrophils (%) (Auto) 80 % (31-73) Lymphocytes (%) (Auto) 11 % (24-48) Monocytes (%) (Auto) 8 % (0-9) Eosinophils (%) (Auto) 1 % (0-3) Basophils (%) (Auto) 0 % (0-3) Neutrophils # (Auto) 6.6 x10^3/uL (1.8-7.7) Lymphocytes # (Auto) 0.9 x10^3/uL (1.0-4.8) Monocytes # (Auto) 0.7 x10^3/uL (0.0-1.1) Eosinophils # (Auto) 0.1 x10^3/uL (0.0-0.7) Basophils # (Auto) 0.0 x10^3/uL (0.0-0.2) Sodium Level 138 mmol/L (136-145) Potassium Level 4.1 mmol/L (3.5-5.1) Chloride Level 105 mmol/L (98-107) Carbon Dioxide Level 25 mmol/L (21-32) Anion Gap 8 (6-14) Blood Urea Nitrogen 15 mg/dL (7-20) Creatinine 0.6 mg/dL (0.6-1.0) Estimated GFR (Cockcroft-Gault) 125.0 BUN/Creatinine Ratio 25 (6-20) Glucose Level 93 mg/dL (70-99) Lactic Acid Level 0.6 mmol/L (0.4-2.0) Calcium Level 8.3 mg/dL (8.5-10.1) Phosphorus Level 3.1 mg/dL (2.6-4.7) Magnesium Level 2.2 mg/dL (1.8-2.4) Total Bilirubin 0.4 mg/dL (0.2-1.0) Aspartate Amino Transf (AST/SGOT) 6 U/L (15-37) Alanine Aminotransferase (ALT/SGPT) 15 U/L (14-59) Alkaline Phosphatase 98 U/L (46-116) Total Protein 6.7 g/dL (6.4-8.2) Albumin 3.7 g/dL (3.4-5.0) Albumin/Globulin Ratio 1.2 (1.0-1.7) Lipase 28 U/L (73-393) Bedside Urine HCG, Qualitative Hcg negative (Negative) Urine Collection Type Void Urine Color Yellow Urine Clarity Clear Urine pH 6.0 (<5.0-8.0) Urine Specific [place] 1.015 (1.000-1.030) Urine Protein Negative mg/dL (NEG-TRACE) Urine Glucose (UA) Negative mg/dL (NEG) Urine Ketones (Stick) Negative mg/dL (NEG) Urine Blood Negative (NEG) Urine Nitrite Negative (NEG) Urine Bilirubin Negative (NEG) Urine Urobilinogen Dipstick 0.2 mg/dL (0.2 mg/dL) Urine Leukocyte Esterase Small (NEG) Urine RBC Rare /HPF (0-2) Urine WBC 5-10 /HPF (0-4) Urine Squamous Epithelial Cells Mod /LPF Urine Bacteria 0 /HPF (0-FEW) Urine Mucus Slight /LPF SARS-CoV-2 RNA (SALVADOR) Negative (Negative) SARS-CoV-2 Antigen (Rapid) Negative (NEGATIVE) Test 04/08/21 20:01 Glucose (Fingerstick) 88 mg/dL (70-99) Images Images CT c/w appendicitis, no perforation. Assessment/Plan Assessment/Plan appendicitis pt with complicated bowel and surgical history d/w pt and pt's supportive family of appendectomy vs abx. Pt and pt's family favor operative intervention. R/R/B/A d/w pt and pt's supportive family. Risks, including, but not limited to: bleeding, infection, damage to surrounding structures, risk of anesthesia, risk of open, risk of not resolving pain. They appear to understand, their questions are answered and they elect to proceed. Thanks for consult! TORIE MILLER MD Apr 08, 2021 20:43
[2021-04-08] MEDS ORDERED: BUPIVACAINE-EPI 0.5% 30 ML VIAL KIT. ONE ×2 (20:51)
[2021-04-08] MEDS ORDERED: GLYCOPYRROLATE 1 MG/5 ML VIAL. ONE (21:51)
[2021-04-08] MEDS ORDERED: NEOSTIGMINE METHYLSULFATE 5 MG/5 ML SYRINGE. ONE (21:52)
[2021-04-08] MEDS ORDERED: ONDANSETRON PF 4 MG/2 ML VIAL. IVP PRN (22:00)
[2021-04-08] MEDS ORDERED: HYDROmorphone 2 MG/ML VIAL IV PRN (22:00)
[2021-04-08] MEDS ORDERED: 0.9 % SODIUM CHLORIDE 10 ML DISP.SYRIN. IV PRN (22:00)
[2021-04-08] MEDS ORDERED: NALOXONE 0.4 MG/ML VIAL. IV PRN (22:00)
[2021-04-08] MEDS: IV NORMAL SALINE 1000ML BAG 1,000 ML IV SCH (22:00)
--- NOTE | 2021-04-08 22:03 | PDOC4 ---
OPERATIVE NOTE Date: Date: Apr 08, 2021 Pre-Op Diagnosis: Appendicitis Post-Op Diagnosis: same Procedure Performed: laparoscopic appendectomy Surgeon: Tushar Miller Anesthesia Type: GETA plus local Blood Loss: 50 Specimans Obtained: appendix Findings: indurated erythema of appendix, all enteral tubes in placed, mobile colon with some distention Complications: none Operative Note: After obtaining informed consent, patient was taken to OR, induced under GETA and prepped in the usual fashion. 5 mm ports placed suprapubic, LLQ, 12 port placed RLQ, all under laparoscopic guidance. Abdominal cavity was explored and noted as above. Appendix was grasped. Defect was created in mesoappendix. General load taken across base of appendix at level of cecum. Vascular load taken across mesoappendix. Appendix placed in bag, delivered and sent to pathology. Copious irrigation. No evidence of bleeding or other pathology. Ports removed without bleeding. Fascia repaired with 0 vicryl. Skin repaired with 4 0 monocryl. Dressing placed. Patient tolerated procedure well and sent to PACU in stable condition. All counts correct. Wound class is 3. TORIE MILLER MD Apr 08, 2021 22:03
[2021-04-08] MEDS ORDERED: KETAMINE HCL IN NACL, ISO-OSM 50 MG/5 ML SYRINGE ONE (22:05)
[2021-04-08] MEDS ORDERED: HYDROmorphone 2 MG/ML VIAL ONE (22:07)
[2021-04-08] MEDS ORDERED: PROCHLORPERAZINE 10 MG/2 ML VIAL. ONE (22:07)
[2021-04-08] MEDS ORDERED: MIDAZOLAM HCL/PF 2 MG/2 ML VIAL. ONE (22:14)
[2021-04-08] MEDS ORDERED: IV RINGERS,LACTATED 1000ML 1,000 ML IV SCH (22:30)
[2021-04-08] MEDS ORDERED: PROCHLORPERAZINE 10 MG/2 ML VIAL. IVP PRN (22:30)
[2021-04-08] MEDS: IV RINGERS,LACTATED 1000ML 1,000 ML IV SCH (22:36)
[2021-04-08 23:10] VITALS: BP 116/64
[2021-04-09] VITALS (7 sets, daily range): BP systolic 92–113; BP diastolic 46–69
--- NOTE | 2021-04-09 00:11 | NUR ---
PACU called post-op report at 2255 - pt back to floor at 2306. Pt happy and smiling. Lap sites observed - island dsg in LLQ with some serosanguinous drainage noted. Lower abd dsg only half applied - paper back removed from second half of dsg and dsg attached to skin. J tubes and PEG tube without redness, drainage, nor edema. Will continue to monitor pt status
[2021-04-09] MEDS: HYDROmorphone 2 MG/ML VIAL IVP PRN ×6 (00:37→21:18)
[2021-04-09 03:04] LABS: BASO % 0 % (0-3); EOS % 0 % (0-3); HEMATOCRIT 31.9 % (36.0-47.0); HEMOGLOBIN 10.7 g/dL (12.0-15.5); LYMPH # 0.4 x10^3/uL (1.0-4.8); LYMPH % 8 % (24-48); MEAN CORPUSCULAR HEMOGLOBIN 32 pg (25-35); MEAN CORPUSCULAR HGB CONC 33 g/dL (31-37); MEAN CORPUSCULAR VOLUME 95 fL (79-100); MONO # 0.2 x10^3/uL (0.0-1.1); MONO % 3 % (0-9); NEUT # 5.2 x10^3/uL (1.8-7.7); NEUT % 90 % (31-73); PLATELET COUNT 98 x10^3/uL (140-400); RED BLOOD COUNT 3.36 x10^6/uL (3.50-5.40); RED CELL DISTRIBUTION WIDTH 14.9 % (11.5-14.5); WHITE BLOOD COUNT 5.8 x10^3/uL (4.0-11.0)
[2021-04-09] MEDS ORDERED: HYDROmorphone 2 MG/ML VIAL IVP PRN (06:00)
[2021-04-09] MEDS ORDERED: MORPHINE SULFATE 2 MG/ML INJ. IVP PRN (06:00)
[2021-04-09] MEDS ORDERED: PROCHLORPERAZINE 10 MG/2 ML VIAL. IVP PRN (06:00)
[2021-04-09] MEDS ORDERED: IV RINGERS,LACTATED 1000ML 1,000 ML IV SCH (06:00)
[2021-04-09] MEDS ORDERED: fentaNYL PF VIAL 100 MCG/2 ML VIAL IVP PRN ×2 (06:00)
[2021-04-09] MEDS: IV RINGERS,LACTATED 1000ML 1,000 ML IV SCH ×2 (08:57→16:18)
--- NOTE | 2021-04-09 12:41 | PDOC ---
[employer] PROGRESS NOTE Date of Service DOS: DATE: 04/09/21 TIME: 12:37 Chief Complaint Chief Complaint Day 3 Post Op Laparoscopic Appendectomy History of Present Illness History of Present Illness 04/09/2021 Patient was seen and examined, in NAD with c/o abdominal pain Chart reviewed Discussed with RN Appreciate subspeciality plan Vitals/I&O Vitals/I&O: Vital Signs Date Time Temp Pulse Resp B/P (MAP) Pulse Ox O2 Delivery O2 Flow Rate FiO2 04/09/21 11:00 98.2 96 14 92/46 (61) 97 Room Air 98.2 04/08/21 22:21 10 I & O 04/08/21 04/08/21 04/09/21 15:00 23:00 07:00 Intake Total 1000 ml 0 ml Output Total 200 ml 350 ml Balance 800 ml -350 ml Physical Exam General: Alert, Oriented X3, Cooperative, moderate distress Lungs: Clear Abdomen: Soft, Other (TTP RLQ, tubes in place) Extremities: No clubbing, No cyanosis Skin: No rashes, No breakdown Labs Labs: Laboratory Tests Test 04/08/21 20:01 04/09/21 02:50 Glucose (Fingerstick) 88 mg/dL (70-99) White Blood Count 5.8 x10^3/uL (4.0-11.0) Red Blood Count 3.36 x10^6/uL (3.50-5.40) Hemoglobin 10.7 g/dL (12.0-15.5) Hematocrit 31.9 % (36.0-47.0) Mean Corpuscular Volume 95 fL (79-100) Mean Corpuscular Hemoglobin 32 pg (25-35) Mean Corpuscular Hemoglobin Concent 33 g/dL (31-37) Red Cell Distribution Width 14.9 % (11.5-14.5) Platelet Count 98 x10^3/uL (140-400) Neutrophils (%) (Auto) 90 % (31-73) Lymphocytes (%) (Auto) 8 % (24-48) Monocytes (%) (Auto) 3 % (0-9) Eosinophils (%) (Auto) 0 % (0-3) Basophils (%) (Auto) 0 % (0-3) Neutrophils # (Auto) 5.2 x10^3/uL (1.8-7.7) Lymphocytes # (Auto) 0.4 x10^3/uL (1.0-4.8) Monocytes # (Auto) 0.2 x10^3/uL (0.0-1.1) Eosinophils # (Auto) 0.0 x10^3/uL (0.0-0.7) Basophils # (Auto) 0.0 x10^3/uL (0.0-0.2) Assessment and Plan Assessmemt and Plan Problems Medical Problems: (1) Acute appendicitis Status: Acute PLAN: Continue Antibiotics (Levofloxacin) Start TPN Post Op Wound Care Continue Fluids Pain Management Home Meds DVT Prophylaxis Trend Labs Appreciate Subspeciality Comment Review of Relevant I have reviewed the following items lalo (where applicable) has been applied. Medications: Current Medications Medications (Trade) Dose Ordered Sig/Kel Route PRN Reason Start Time Stop Time Status Last Admin Dose Admin Ringer's Solution 1,000 ml @ 30 mls/hr Q24H IV 04/09/21 06:00 04/09/21 17:59 04/08/21 19:20 Diphenhydramine HCl (Benadryl) 25 mg PRN Q6HRS PRN IVP ITCHING 04/08/21 17:45 04/08/21 17:57 Bupivacaine HCl/ Epinephrine Bitart (Sensorcain-Epi 0.5% Kit) 30 ml STK-MED ONCE .ROUTE 04/08/21 20:51 04/08/21 20:51 DC 04/08/21 21:28 Ringer's Solution 1,000 ml @ 100 mls/hr Q10H IV 04/08/21 22:00 04/09/21 08:57 Hydromorphone HCl (Dilaudid) 0.2 mg PRN Q1HR PRN IV SEVERE PAIN 7-10 04/08/21 22:00 04/09/21 02:36 Ringer's Solution 1,000 ml @ 30 mls/hr Q24H IV 04/08/21 22:30 04/09/21 10:29 DC 04/08/21 23:10 Hydromorphone HCl (Dilaudid) 1 mg PRN Q10MIN PRN IVP SEVERE PAIN 7-10, 2nd CHOICE 04/08/21 22:05 04/09/21 22:04 04/08/21 22:50 Prochlorperazine Edisylate (Compazine) 10 mg PACU PRN PRN IVP NAUSEA, MRX1 04/08/21 22:30 04/09/21 22:29 04/08/21 22:49 Justifications for Admission Other Justification Fever LALITHA WEBB III DO Apr 09, 2021 12:41
--- NOTE | 2021-04-09 13:18 | PDOC ---
SURGICAL PROGRESS NOTE DATE: 04/09/21 TIME: 13:16 Subjective crying loudly in room, pain issues Vital Signs Vital Signs Date Time Temp Pulse Resp B/P (MAP) Pulse Ox O2 Delivery O2 Flow Rate FiO2 04/09/21 11:00 98.2 96 14 92/46 (61) 97 Room Air 98.2 04/08/21 22:21 10 I&O Intake and Output 04/09/21 07:00 Intake Total 1000 ml Output Total 550 ml Balance 450 ml Intake Oral 0 ml IV Total 1000 ml Output Urine Total 500 ml Estimated Blood Loss 50 ml # Voids 1 General: Cooperative, Other (chroniclly ill) Abdomen: Soft Labs Laboratory Tests Test 04/08/21 00:30 04/08/21 00:31 04/08/21 00:35 04/08/21 03:30 White Blood Count 8.3 x10^3/uL (4.0-11.0) Red Blood Count 3.44 x10^6/uL (3.50-5.40) Hemoglobin 10.9 g/dL (12.0-15.5) Hematocrit 32.4 % (36.0-47.0) Mean Corpuscular Volume 94 fL (79-100) Mean Corpuscular Hemoglobin 32 pg (25-35) Mean Corpuscular Hemoglobin Concent 34 g/dL (31-37) Red Cell Distribution Width 14.9 % (11.5-14.5) Platelet Count 125 x10^3/uL (140-400) Neutrophils (%) (Auto) 80 % (31-73) Lymphocytes (%) (Auto) 11 % (24-48) Monocytes (%) (Auto) 8 % (0-9) Eosinophils (%) (Auto) 1 % (0-3) Basophils (%) (Auto) 0 % (0-3) Neutrophils # (Auto) 6.6 x10^3/uL (1.8-7.7) Lymphocytes # (Auto) 0.9 x10^3/uL (1.0-4.8) Monocytes # (Auto) 0.7 x10^3/uL (0.0-1.1) Eosinophils # (Auto) 0.1 x10^3/uL (0.0-0.7) Basophils # (Auto) 0.0 x10^3/uL (0.0-0.2) Sodium Level 138 mmol/L (136-145) Potassium Level 4.1 mmol/L (3.5-5.1) Chloride Level 105 mmol/L (98-107) Carbon Dioxide Level 25 mmol/L (21-32) Anion Gap 8 (6-14) Blood Urea Nitrogen 15 mg/dL (7-20) Creatinine 0.6 mg/dL (0.6-1.0) Estimated GFR (Cockcroft-Gault) 125.0 BUN/Creatinine Ratio 25 (6-20) Glucose Level 93 mg/dL (70-99) Lactic Acid Level 0.6 mmol/L (0.4-2.0) Calcium Level 8.3 mg/dL (8.5-10.1) Phosphorus Level 3.1 mg/dL (2.6-4.7) Magnesium Level 2.2 mg/dL (1.8-2.4) Total Bilirubin 0.4 mg/dL (0.2-1.0) Aspartate Amino Transf (AST/SGOT) 6 U/L (15-37) Alanine Aminotransferase (ALT/SGPT) 15 U/L (14-59) Alkaline Phosphatase 98 U/L (46-116) Total Protein 6.7 g/dL (6.4-8.2) Albumin 3.7 g/dL (3.4-5.0) Albumin/Globulin Ratio 1.2 (1.0-1.7) Lipase 28 U/L (73-393) Bedside Urine HCG, Qualitative Hcg negative (Negative) Urine Collection Type Void Urine Color Yellow Urine Clarity Clear Urine pH 6.0 (<5.0-8.0) Urine Specific [place] 1.015 (1.000-1.030) Urine Protein Negative mg/dL (NEG-TRACE) Urine Glucose (UA) Negative mg/dL (NEG) Urine Ketones (Stick) Negative mg/dL (NEG) Urine Blood Negative (NEG) Urine Nitrite Negative (NEG) Urine Bilirubin Negative (NEG) Urine Urobilinogen Dipstick 0.2 mg/dL (0.2 mg/dL) Urine Leukocyte Esterase Small (NEG) Urine RBC Rare /HPF (0-2) Urine WBC 5-10 /HPF (0-4) Urine Squamous Epithelial Cells Mod /LPF Urine Bacteria 0 /HPF (0-FEW) Urine Mucus Slight /LPF SARS-CoV-2 RNA (SALVADOR) Negative (Negative) SARS-CoV-2 Antigen (Rapid) Negative (NEGATIVE) Test 04/08/21 20:01 04/09/21 02:50 Glucose (Fingerstick) 88 mg/dL (70-99) White Blood Count 5.8 x10^3/uL (4.0-11.0) Red Blood Count 3.36 x10^6/uL (3.50-5.40) Hemoglobin 10.7 g/dL (12.0-15.5) Hematocrit 31.9 % (36.0-47.0) Mean Corpuscular Volume 95 fL (79-100) Mean Corpuscular Hemoglobin 32 pg (25-35) Mean Corpuscular Hemoglobin Concent 33 g/dL (31-37) Red Cell Distribution Width 14.9 % (11.5-14.5) Platelet Count 98 x10^3/uL (140-400) Neutrophils (%) (Auto) 90 % (31-73) Lymphocytes (%) (Auto) 8 % (24-48) Monocytes (%) (Auto) 3 % (0-9) Eosinophils (%) (Auto) 0 % (0-3) Basophils (%) (Auto) 0 % (0-3) Neutrophils # (Auto) 5.2 x10^3/uL (1.8-7.7) Lymphocytes # (Auto) 0.4 x10^3/uL (1.0-4.8) Monocytes # (Auto) 0.2 x10^3/uL (0.0-1.1) Eosinophils # (Auto) 0.0 x10^3/uL (0.0-0.7) Basophils # (Auto) 0.0 x10^3/uL (0.0-0.2) Laboratory Tests Test 04/08/21 20:01 04/09/21 02:50 Glucose (Fingerstick) 88 mg/dL (70-99) White Blood Count 5.8 x10^3/uL (4.0-11.0) Red Blood Count 3.36 x10^6/uL (3.50-5.40) Hemoglobin 10.7 g/dL (12.0-15.5) Hematocrit 31.9 % (36.0-47.0) Mean Corpuscular Volume 95 fL (79-100) Mean Corpuscular Hemoglobin 32 pg (25-35) Mean Corpuscular Hemoglobin Concent 33 g/dL (31-37) Red Cell Distribution Width 14.9 % (11.5-14.5) Platelet Count 98 x10^3/uL (140-400) Neutrophils (%) (Auto) 90 % (31-73) Lymphocytes (%) (Auto) 8 % (24-48) Monocytes (%) (Auto) 3 % (0-9) Eosinophils (%) (Auto) 0 % (0-3) Basophils (%) (Auto) 0 % (0-3) Neutrophils # (Auto) 5.2 x10^3/uL (1.8-7.7) Lymphocytes # (Auto) 0.4 x10^3/uL (1.0-4.8) Monocytes # (Auto) 0.2 x10^3/uL (0.0-1.1) Eosinophils # (Auto) 0.0 x10^3/uL (0.0-0.7) Basophils # (Auto) 0.0 x10^3/uL (0.0-0.2) Problem List Problems Medical Problems: (1) Acute appendicitis Status: Acute Assessment/Plan s/p appy acute on chronic pain issues, will be difficult to manage can resume home TPN Justicifation of Admission Dx: Justifications for Admission: Justification of Admission Dx: Yes Sepsis: Bacteremia [employer] Apr 09, 2021 13:18
[2021-04-09] MEDS: TPN PER PHARMACY MC PRN ×2 (14:12→14:23)
[2021-04-09] MEDS ORDERED: TPN PER PHARMACY MC PRN (14:15)
--- NOTE | 2021-04-09 14:25 | NUR ---
Pharmacy TPN Dosing Note S: SUNITHA SCHULTZ is a 20 year old F Currently receiving TPN started 04/09/21 B:Pertinent PMH: Patient NPO post op. Appendectomy. Height: 5 feet, 7 inches Weight: 82.515522 kg Current diet: NPO LABS: Sodium: 138 Potassium: 4.1 Chloride: 105 Calcium: 8.3 Corrected Calcium: 8.54 Magnesium: 2.2 CO2: 25 SCr: 0.6 Glucose: 88 Albumin: 3.7 AST: 6 ALT: 15 TPN FORMULA: TPN TYPE: AMINO ACIDS: 75 gm DEXTROSE: 230 gm LIPIDS: 30 gm SODIUM CHLORIDE: 90 mEq POTASSIUM CHLORIDE: 50 mEq POTASSIUM PHOSPHATE: 13.6 mmol MAGNESIUM: 10 mEq CALCIUM: 10 mEq MULTIPLE VITAMIN: 10 ml TRACE ELEMENTS: 1ml ml(s) TPN PLAN: Start patient on TPN formula recommended by Dietary. Add standard lyte. TPN lytes tomorrow. R: Begin TPN Will monitor electrolytes, glucose, and tolerance to TPN. Tushar Sanchez [facility], 04/09/21 [id number]
[2021-04-09] MEDS ORDERED: TOTAL PARENTERAL NUTRITION IV SCH (22:00)
[2021-04-09] MEDS: IV NORMAL SALINE 1000ML BAG 1,000 ML IV SCH (22:00)
[2021-04-09] MEDS ORDERED: AMINO ACID IV SCH (22:00)
[2021-04-09] MEDS ORDERED: DEXTROSE 70% IV SCH (22:00)
[2021-04-09] MEDS ORDERED: [UNRECOGNIZED DRUG - OTHER] IV SCH (22:00)
[2021-04-10] MEDS: HYDROmorphone 2 MG/ML VIAL IVP PRN ×6 (00:58→21:51)
[2021-04-10 03:07] VITALS: BP 105/39
[2021-04-10] MEDS: IV RINGERS,LACTATED 1000ML 1,000 ML IV SCH ×2 (03:39→14:48)
[2021-04-10 07:00] VITALS: BP 103/59
[2021-04-10 08:47] LABS: CALCIUM 8.5 mg/dL (8.5-10.1); CREATININE 0.4 mg/dL (0.6-1.0); GFR 199.6; MAGNESIUM 1.6 mg/dL (1.8-2.4); PHOSPHORUS 4.6 mg/dL (2.6-4.7); POTASSIUM 3.8 mmol/L (3.5-5.1)
[2021-04-10 11:00] VITALS: BP 108/57
--- NOTE | 2021-04-10 11:10 | NUR ---
SW following. Discussed with RN, pt from home with family, room air, NPO - has home TPN. Pt current with [employer] - is now [facility] (ph: [phone], fax: [phone]). SW will continue to follow.
[2021-04-10] MEDS: TPN PER PHARMACY MC PRN (12:26)
--- NOTE | 2021-04-10 12:29 | NUR ---
Pharmacy TPN Dosing Note S: SUNITHA SCHULTZ is a 20 year old F Currently receiving TPN started 04/09/21 B:Pertinent PMH: Patient NPO post op. Appendectomy. On Home TPN. Height: 5 feet, 7 inches Weight: 83.0 kg Current diet: NPO LABS: Sodium: 143 Potassium: 3.8 Chloride: 104 Calcium: 8.5 Corrected Calcium: 8.74 Magnesium: 1.6 CO2: 28 SCr: 0.4 Glucose: 101 Albumin: 3.7 AST: 6 ALT: 15 TPN FORMULA: TPN TYPE: AMINO ACIDS: 75 gm DEXTROSE: 230 gm LIPIDS: 30 gm SODIUM CHLORIDE: 90 mEq POTASSIUM CHLORIDE: 50 mEq POTASSIUM PHOSPHATE: 13.6 mmol MAGNESIUM: 14 mEq CALCIUM: 10 mEq MULTIPLE VITAMIN: 10 ml TRACE ELEMENTS: 1ml ml(s) TPN PLAN: Increase Magnesium to 14meq/bag due to drop in Mag level. R: Change TPN Will monitor electrolytes, glucose, and tolerance to TPN. Tushar Sanchez, [facility], 04/10/21 1235
--- NOTE | 2021-04-10 13:29 | PDOC ---
[employer] PROGRESS NOTE Date of Service DOS: DATE: 04/10/21 TIME: 13:27 Chief Complaint Chief Complaint Day 3 Post Op Laparoscopic Appendectomy History of Present Illness History of Present Illness 04/10 Patient evaluated and examined at bedside. Still complaining of ongoing abdominal pain. We will see if any adjustments can be made pain regimen. Surgical team still following. Discussed with bedside nurse. 04/09/2021 Patient was seen and examined, in NAD with c/o abdominal pain Chart reviewed Discussed with RN Appreciate subspeciality plan Vitals/I&O Vitals/I&O: Vital Signs Date Time Temp Pulse Resp B/P (MAP) Pulse Ox O2 Delivery O2 Flow Rate FiO2 04/10/21 11:14 20 98 Room Air 04/10/21 11:00 98.2 89 108/57 (74) 98.2 Physical Exam General: Cooperative, moderate distress, Other (chroniclly ill) Lungs: Clear Abdomen: Soft, Other (Tender throughout) Extremities: No clubbing, No cyanosis Skin: No rashes, No breakdown Labs Labs: Laboratory Tests Test 04/10/21 06:55 Sodium Level 143 mmol/L (136-145) Potassium Level 3.8 mmol/L (3.5-5.1) Chloride Level 104 mmol/L (98-107) Carbon Dioxide Level 28 mmol/L (21-32) Anion Gap 11 (6-14) Blood Urea Nitrogen 9 mg/dL (7-20) Creatinine 0.4 mg/dL (0.6-1.0) Estimated GFR (Cockcroft-Gault) 199.6 Glucose Level 101 mg/dL (70-99) Calcium Level 8.5 mg/dL (8.5-10.1) Phosphorus Level 4.6 mg/dL (2.6-4.7) Magnesium Level 1.6 mg/dL (1.8-2.4) Triglycerides Level 28 mg/dL (0-150) Assessment and Plan Assessmemt and Plan Problems Medical Problems: (1) Acute appendicitis Status: Acute PLAN: Continue Antibiotics (Levofloxacin) Continue TPN Post Op Wound Care Continue Fluids Pain Management Home Meds DVT Prophylaxis Trend Labs Appreciate Subspeciality Comment Review of Relevant I have reviewed the following items lalo (where applicable) has been applied. Medications: Current Medications Medications (Trade) Dose Ordered Sig/Kel Route PRN Reason Start Time Stop Time Status Last Admin Dose Admin Sodium Chloride 90 meq/Potassium Chloride 50 meq/ Potassium Phosphate 13.6 mmol/Magnesium Sulfate 10 meq/ Calcium Gluconate 10 meq/ Multivitamins 10 ml/Zinc/Copper/ Manganese/ Selenium 1 ml/ Total Parenteral Nutrition/Amino Acids/Dextrose/ Fat Emulsion Intravenous 1,512 ml @ 63 mls/hr TPN CONT IV 04/09/21 22:00 04/10/21 21:59 04/09/21 22:28 Justifications for Admission Other Justification Fever ABIGAIL BRIZUELA MD Apr 10, 2021 13:29
--- NOTE | 2021-04-10 14:18 | PDOC ---
SURGICAL PROGRESS NOTE DATE: 04/10/21 TIME: 14:17 Subjective a little better hurts with movement Vital Signs Vital Signs Date Time Temp Pulse Resp B/P (MAP) Pulse Ox O2 Delivery O2 Flow Rate FiO2 04/10/21 11:14 20 98 Room Air 04/10/21 11:00 98.2 89 108/57 (74) 98.2 I&O Intake and Output 04/10/21 07:00 # Voids 3 General: Alert, Cooperative Abdomen: Soft Labs Laboratory Tests Test 04/08/21 20:01 04/09/21 02:50 04/10/21 06:55 Glucose (Fingerstick) 88 mg/dL (70-99) White Blood Count 5.8 x10^3/uL (4.0-11.0) Red Blood Count 3.36 x10^6/uL (3.50-5.40) Hemoglobin 10.7 g/dL (12.0-15.5) Hematocrit 31.9 % (36.0-47.0) Mean Corpuscular Volume 95 fL (79-100) Mean Corpuscular Hemoglobin 32 pg (25-35) Mean Corpuscular Hemoglobin Concent 33 g/dL (31-37) Red Cell Distribution Width 14.9 % (11.5-14.5) Platelet Count 98 x10^3/uL (140-400) Neutrophils (%) (Auto) 90 % (31-73) Lymphocytes (%) (Auto) 8 % (24-48) Monocytes (%) (Auto) 3 % (0-9) Eosinophils (%) (Auto) 0 % (0-3) Basophils (%) (Auto) 0 % (0-3) Neutrophils # (Auto) 5.2 x10^3/uL (1.8-7.7) Lymphocytes # (Auto) 0.4 x10^3/uL (1.0-4.8) Monocytes # (Auto) 0.2 x10^3/uL (0.0-1.1) Eosinophils # (Auto) 0.0 x10^3/uL (0.0-0.7) Basophils # (Auto) 0.0 x10^3/uL (0.0-0.2) Sodium Level 143 mmol/L (136-145) Potassium Level 3.8 mmol/L (3.5-5.1) Chloride Level 104 mmol/L (98-107) Carbon Dioxide Level 28 mmol/L (21-32) Anion Gap 11 (6-14) Blood Urea Nitrogen 9 mg/dL (7-20) Creatinine 0.4 mg/dL (0.6-1.0) Estimated GFR (Cockcroft-Gault) 199.6 Glucose Level 101 mg/dL (70-99) Calcium Level 8.5 mg/dL (8.5-10.1) Phosphorus Level 4.6 mg/dL (2.6-4.7) Magnesium Level 1.6 mg/dL (1.8-2.4) Triglycerides Level 28 mg/dL (0-150) Laboratory Tests Test 04/10/21 06:55 Sodium Level 143 mmol/L (136-145) Potassium Level 3.8 mmol/L (3.5-5.1) Chloride Level 104 mmol/L (98-107) Carbon Dioxide Level 28 mmol/L (21-32) Anion Gap 11 (6-14) Blood Urea Nitrogen 9 mg/dL (7-20) Creatinine 0.4 mg/dL (0.6-1.0) Estimated GFR (Cockcroft-Gault) 199.6 Glucose Level 101 mg/dL (70-99) Calcium Level 8.5 mg/dL (8.5-10.1) Phosphorus Level 4.6 mg/dL (2.6-4.7) Magnesium Level 1.6 mg/dL (1.8-2.4) Triglycerides Level 28 mg/dL (0-150) Problem List Problems Medical Problems: (1) Acute appendicitis Status: Acute Assessment/Plan stable surgically Justicifation of Admission Dx: Justifications for Admission: Justification of Admission Dx: Yes Sepsis: Bacteremia HANNAH VALLE LEAD SIMULATION MODELING ENGINEER Apr 10, 2021 14:18
[2021-04-10 15:00] VITALS: BP 99/59
[2021-04-10 19:00] VITALS: BP 97/51
[2021-04-10] MEDS: IV NORMAL SALINE 1000ML BAG 1,000 ML IV SCH (22:00)
[2021-04-10] MEDS ORDERED: DEXTROSE 70% IV SCH (22:00)
[2021-04-10] MEDS ORDERED: AMINO ACID IV SCH (22:00)
[2021-04-10] MEDS ORDERED: TOTAL PARENTERAL NUTRITION IV SCH (22:00)
[2021-04-10] MEDS ORDERED: [UNRECOGNIZED DRUG - OTHER] IV SCH (22:00)
[2021-04-10 22:56] VITALS: BP 113/62
[2021-04-11] MEDS: IV RINGERS,LACTATED 1000ML 1,000 ML IV SCH ×3 (01:01→21:08)
[2021-04-11] MEDS: HYDROmorphone 2 MG/ML VIAL IVP PRN ×7 (01:02→21:09)
[2021-04-11 03:00] VITALS: BP 119/53
[2021-04-11 05:23] LABS: CALCIUM 8.4 mg/dL (8.5-10.1); CREATININE 0.4 mg/dL (0.6-1.0); GFR 199.6; MAGNESIUM 1.7 mg/dL (1.8-2.4); PHOSPHORUS 4.4 mg/dL (2.6-4.7); POTASSIUM 3.8 mmol/L (3.5-5.1)
[2021-04-11 07:00] VITALS: BP 116/71
--- NOTE | 2021-04-11 08:43 | PDOC ---
SURGICAL PROGRESS NOTE DATE: 04/11/21 TIME: 08:42 Subjective ongoing pain issues Vital Signs Vital Signs Date Time Temp Pulse Resp B/P (MAP) Pulse Ox O2 Delivery O2 Flow Rate FiO2 04/11/21 08:40 17 97 Room Air 04/11/21 03:00 98.7 87 119/53 (75) 98.7 General: Alert, Cooperative Abdomen: Soft Labs Laboratory Tests Test 04/10/21 06:55 04/11/21 03:30 Sodium Level 143 mmol/L (136-145) 142 mmol/L (136-145) Potassium Level 3.8 mmol/L (3.5-5.1) 3.8 mmol/L (3.5-5.1) Chloride Level 104 mmol/L (98-107) 105 mmol/L (98-107) Carbon Dioxide Level 28 mmol/L (21-32) 29 mmol/L (21-32) Anion Gap 11 (6-14) 8 (6-14) Blood Urea Nitrogen 9 mg/dL (7-20) 9 mg/dL (7-20) Creatinine 0.4 mg/dL (0.6-1.0) 0.4 mg/dL (0.6-1.0) Estimated GFR (Cockcroft-Gault) 199.6 199.6 Glucose Level 101 mg/dL (70-99) 97 mg/dL (70-99) Calcium Level 8.5 mg/dL (8.5-10.1) 8.4 mg/dL (8.5-10.1) Phosphorus Level 4.6 mg/dL (2.6-4.7) 4.4 mg/dL (2.6-4.7) Magnesium Level 1.6 mg/dL (1.8-2.4) 1.7 mg/dL (1.8-2.4) Triglycerides Level 28 mg/dL (0-150) Laboratory Tests Test 04/11/21 03:30 Sodium Level 142 mmol/L (136-145) Potassium Level 3.8 mmol/L (3.5-5.1) Chloride Level 105 mmol/L (98-107) Carbon Dioxide Level 29 mmol/L (21-32) Anion Gap 8 (6-14) Blood Urea Nitrogen 9 mg/dL (7-20) Creatinine 0.4 mg/dL (0.6-1.0) Estimated GFR (Cockcroft-Gault) 199.6 Glucose Level 97 mg/dL (70-99) Calcium Level 8.4 mg/dL (8.5-10.1) Phosphorus Level 4.4 mg/dL (2.6-4.7) Magnesium Level 1.7 mg/dL (1.8-2.4) Problem List Problems Medical Problems: (1) Acute appendicitis Status: Acute Assessment/Plan pain will be a difficult situation to manage, chronic long standing issues stable surgically work toward dc Justicifation of Admission Dx: Justifications for Admission: Justification of Admission Dx: Yes Sepsis: Bacteremia HANNAH VALLE SWITCHER Apr 11, 2021 08:43
[2021-04-11] MEDS ORDERED: MORPHINE ER 30 MG TABLET.ER PO SCH (10:00)
[2021-04-11] MEDS ORDERED: MORPHINE ER 30 MG TABLET.ER PO ONE (10:00)
--- NOTE | 2021-04-11 10:49 | PDOC ---
[employer] PROGRESS NOTE Date of Service DOS: DATE: 04/11/21 TIME: 10:48 Chief Complaint Chief Complaint Day 3 Post Op Laparoscopic Appendectomy History of Present Illness History of Present Illness 04/11 Patient evaluated examined at bedside. Having some abdominal pain still but a little bit improved. Difficult situation with pain management as patient is requiring all IV medications. Once able to use feeding tube can consider trying an extended release oral option. Continuing to follow. 04/10 Patient evaluated and examined at bedside. Still complaining of ongoing abdominal pain. We will see if any adjustments can be made pain regimen. S urgical team still following. Discussed with bedside nurse. 04/09/2021 Patient was seen and examined, in NAD with c/o abdominal pain Chart reviewed Discussed with RN Appreciate subspeciality plan Vitals/I&O Vitals/I&O: Vital Signs Date Time Temp Pulse Resp B/P (MAP) Pulse Ox O2 Delivery O2 Flow Rate FiO2 04/11/21 08:40 17 97 Room Air 04/11/21 07:00 98.7 93 116/71 (86) 98.7 Physical Exam General: Alert, Cooperative Lungs: Clear Abdomen: Soft Extremities: No clubbing, No cyanosis Skin: No rashes, No breakdown Labs Labs: Laboratory Tests Test 04/11/21 03:30 Sodium Level 142 mmol/L (136-145) Potassium Level 3.8 mmol/L (3.5-5.1) Chloride Level 105 mmol/L (98-107) Carbon Dioxide Level 29 mmol/L (21-32) Anion Gap 8 (6-14) Blood Urea Nitrogen 9 mg/dL (7-20) Creatinine 0.4 mg/dL (0.6-1.0) Estimated GFR (Cockcroft-Gault) 199.6 Glucose Level 97 mg/dL (70-99) Calcium Level 8.4 mg/dL (8.5-10.1) Phosphorus Level 4.4 mg/dL (2.6-4.7) Magnesium Level 1.7 mg/dL (1.8-2.4) Assessment and Plan Assessmemt and Plan Problems Medical Problems: (1) Acute appendicitis Status: Acute Comment Review of Relevant I have reviewed the following items lalo (where applicable) has been applied. Medications: Current Medications Medications (Trade) Dose Ordered Sig/Kel Route PRN Reason Start Time Stop Time Status Last Admin Dose Admin Sodium Chloride 90 meq/Potassium Chloride 50 meq/ Potassium Phosphate 13.6 mmol/Magnesium Sulfate 14 meq/ Calcium Gluconate 10 meq/ Multivitamins 10 ml/Zinc/Copper/ Manganese/ Selenium 1 ml/ Total Parenteral Nutrition/Amino Acids/Dextrose/ Fat Emulsion Intravenous 1,512 ml @ 63 mls/hr TPN CONT IV 04/10/21 22:00 04/11/21 21:59 04/10/21 20:41 Justifications for Admission Other Justification Fever ABIGAIL BRIZUELA MD Apr 11, 2021 10:49
[2021-04-11 11:00] VITALS: BP 104/58
[2021-04-11] MEDS: TPN PER PHARMACY MC PRN (11:42)
--- NOTE | 2021-04-11 11:42 | NUR ---
Pharmacy TPN Dosing Note S: SUNITHA SCHULTZ is a 20 year old F Currently receiving TPN started 04/09/21 B:Pertinent PMH: Patient NPO post op. Appendectomy. On Home TPN. Height: 5 feet, 7 inches Weight: 83.0 kg Current diet: NPO LABS: Sodium: 142 Potassium: 3.8 Chloride: 105 Calcium: 8.4 Corrected Calcium: 8.64 Magnesium: 1.7 CO2: 29 SCr: 0.4 Glucose: 97 Albumin: 3.7 AST: 6 ALT: 15 TPN FORMULA: TPN TYPE: AMINO ACIDS: 75 gm DEXTROSE: 230 gm SODIUM CHLORIDE: 90 mEq POTASSIUM CHLORIDE: 50 mEq POTASSIUM PHOSPHATE: 13.6 mmol MAGNESIUM: 14 mEq CALCIUM: 10 mEq MULTIPLE VITAMIN: 10 ml TRACE ELEMENTS: 1 ml(s) TPN PLAN: Mag 1.7 - replace w/ MagSul 2 gm IVPB. Remove lipids from TPN d/t lipid shortage (dose MWF). R: Change TPN as noted above. Will monitor electrolytes, glucose, and tolerance to TPN. KENDRA ESTRADA Velasquez, 04/11/21 1144
[2021-04-11] MEDS ORDERED: MAGNESIUM SULFATE 2GM 50 ML IV ONE (12:00)
[2021-04-11 15:00] VITALS: BP 100/44
[2021-04-11 19:00] VITALS: BP 98/54
[2021-04-11] MEDS: IV NORMAL SALINE 1000ML BAG 1,000 ML IV SCH (19:38)
[2021-04-11] MEDS ORDERED: DEXTROSE 70% IV SCH (22:00)
[2021-04-11] MEDS ORDERED: [UNRECOGNIZED DRUG - OTHER] IV SCH (22:00)
[2021-04-11] MEDS ORDERED: AMINO ACID IV SCH (22:00)
[2021-04-11] MEDS ORDERED: TOTAL PARENTERAL NUTRITION IV SCH (22:00)
[2021-04-11 23:00] VITALS: BP 118/58
[2021-04-12] MEDS: HYDROmorphone 2 MG/ML VIAL IVP PRN ×5 (00:11→12:56)
[2021-04-12 03:00] VITALS: BP 96/52
[2021-04-12] MEDS: IV RINGERS,LACTATED 1000ML 1,000 ML IV SCH (06:34)
[2021-04-12 07:00] VITALS: BP 96/82
[2021-04-12 09:43] LABS: CALCIUM 8.3 mg/dL (8.5-10.1); CREATININE 0.4 mg/dL (0.6-1.0); GFR 199.6; MAGNESIUM 1.9 mg/dL (1.8-2.4); PHOSPHORUS 4.5 mg/dL (2.6-4.7)
[2021-04-12 11:00] VITALS: BP 118/64
--- NOTE | 2021-04-12 12:04 | PDOC ---
SURGICAL PROGRESS NOTE DATE: 04/12/21 TIME: 12:03 Subjective Pt feels better, still with pain and nausea, but close to baseline Vital Signs Vital Signs Date Time Temp Pulse Resp B/P (MAP) Pulse Ox O2 Delivery O2 Flow Rate FiO2 04/12/21 10:10 18 97 Room Air 04/12/21 07:00 97.8 93 96/82 (87) 97.8 I&O Intake and Output 04/12/21 07:00 Intake Total 0 ml Balance 0 ml Intake Oral 0 ml # Voids 4 General: Alert, Oriented X3, Cooperative, No acute distress Abdomen: Soft, Other (appropriate TTP) Labs Laboratory Tests Test 04/11/21 03:30 04/12/21 09:10 Sodium Level 142 mmol/L (136-145) 140 mmol/L (136-145) Potassium Level 3.8 mmol/L (3.5-5.1) 4.0 mmol/L (3.5-5.1) Chloride Level 105 mmol/L (98-107) 105 mmol/L (98-107) Carbon Dioxide Level 29 mmol/L (21-32) 29 mmol/L (21-32) Anion Gap 8 (6-14) 6 (6-14) Blood Urea Nitrogen 9 mg/dL (7-20) 11 mg/dL (7-20) Creatinine 0.4 mg/dL (0.6-1.0) 0.4 mg/dL (0.6-1.0) Estimated GFR (Cockcroft-Gault) 199.6 199.6 Glucose Level 97 mg/dL (70-99) 78 mg/dL (70-99) Calcium Level 8.4 mg/dL (8.5-10.1) 8.3 mg/dL (8.5-10.1) Phosphorus Level 4.4 mg/dL (2.6-4.7) 4.5 mg/dL (2.6-4.7) Magnesium Level 1.7 mg/dL (1.8-2.4) 1.9 mg/dL (1.8-2.4) Laboratory Tests Test 04/12/21 09:10 Sodium Level 140 mmol/L (136-145) Potassium Level 4.0 mmol/L (3.5-5.1) Chloride Level 105 mmol/L (98-107) Carbon Dioxide Level 29 mmol/L (21-32) Anion Gap 6 (6-14) Blood Urea Nitrogen 11 mg/dL (7-20) Creatinine 0.4 mg/dL (0.6-1.0) Estimated GFR (Cockcroft-Gault) 199.6 Glucose Level 78 mg/dL (70-99) Calcium Level 8.3 mg/dL (8.5-10.1) Phosphorus Level 4.5 mg/dL (2.6-4.7) Magnesium Level 1.9 mg/dL (1.8-2.4) Problem List Problems Medical Problems: (1) Acute appendicitis Status: Acute Assessment/Plan s/p lap appendectomy OK to d/c home f/u in two weeks Justicifation of Admission Dx: Justifications for Admission: Justification of Admission Dx: Yes Sepsis: Bacteremia TORIE MILLER MD Apr 12, 2021 12:04
[2021-04-12] MEDS ORDERED: HYDR10SO4 PO (12:50)
--- NOTE | 2021-04-12 13:44 | DS ---
DATE OF DISCHARGE: 04/12/2021 ADMITTING DIAGNOSIS: Appendicitis. DISCHARGE DIAGNOSES: Postoperative day 2 laparoscopic appendectomy, history of the two J-tubes, history of percutaneous endoscopic gastrostomy tube, severe gastroparesis, chronic pain, narcotic dependence, depression, anxiety, peripherally inserted central catheter line, subcutaneous port placement, constipation, polypharmacy, asthma, history of sepsis, history of respiratory failure with intubation couple of months ago, history of chronic anticoagulation, and gastroesophageal reflux disease CONSULTS: Dr. Santana. PROCEDURES: Laparoscopic appendectomy. HOSPITAL COURSE: The patient is a pleasant, middle-aged female well known to our service. She has very complex abdomen with multiple tubes and severe gastroparesis. At this time she presented with appendicitis. We gave her IV antibiotics and consulted Dr. Santana. She was taken for laparoscopic appendectomy. Today, I saw her and examined her. She is at her baseline. We plan to discharge. DISPOSITION: Home. ACTIVITY: As tolerated. DIET: Low sodium. MEDICATIONS: Please see the MRAD. I sent over a prescription for hydrocodone/Tylenol solution 100 mL, 10 mL q. 6 hours p.r.n. pain; albuterol; bisacodyl; vitamin D; docusate; Lovenox 80 mg subQ daily. Pepcid 40 IV daily, fluticasone, Ajovy autoinjector 225 subcu monthly, gabapentin 300 t.i.d., Hyoscyamine 0.375 b.i.d., Spiriva, Xyzal 10 b.i.d., milk of magnesia 400 mg per J-tube daily p.r.n., metoprolol 75 b.i.d., midodrine 5 b.i.d., mirtazapine 45 at bedtime, Singulair 10 a day, vitamins, home TPN., p.r.n. Zofran, scopolamine patch, valproic acid 500 b.i.d. Total time 38 minutes, RAMON/BANDAR/KITTY DR: RAMON/kimberly TID: [id number]
--- NOTE | 2021-04-12 17:25 | SNU/HH DC ---
DISCHARGE WITH HOME HEALTH DISCHARGE INFORMATION: Discharge Date: Apr 12, 2021 Final Diagnosis: Problems Medical Problems: (1) Acute appendicitis Status: Acute Condition on Discharge: Stable CODE STATUS: Code Status: Full HOME HEALTH: Face to Face: I certify this patient is under my care and that I, or a nurse practitioner or physician's construction administrative assistant working with me, had a face to face encounter that meets the physician face to face encounter requirements with this patient on []. Assisted For: Assess & Educate Safety, Assess/Skilled Observatio, Medication Management RN For Eval/Treatment: Yes Physical Therapy For: Evalulation/Treatment Occupational Therapy For: Evaluation/Treatment Pt Meets Homebound Status: Extreme weakness w/ amb., Fatigue w/ amb. POST DISCHARGE ORDERS: Activity Instructions for Disc: Activity as tolerated Weight Bearing Status after Di: Full weight bearing, As tolerated Bathing Instructions: No Tub Bath until see Dr. RING AFTER DISCHARGE: Cardiac Wound/Incision Care: Ice to area for comfort CHECKS AFTER DISCHARGE: Checks after discharge: Check your Temp as needed FOLLOW-UP: Follow up with: Dr. Santana as scheduled Follow Up With: PCP in a week TREATMENT/EQUIPMENT ORDERS: Adaptive Equipment Issued: None CERTIFICATION STATEMENT: Certification Statement: Certification Statement: Based on the above finding, I certify that this patient is confined to the home and needs intermittent correction care, physical therapy and/or speech therapy, or continues to need occupational therapy.~ This patient is under my care, and I have initiated the establishment of the plan of care.~ This patient will be followed by myself or a community physician who will periodically review the plan of care. Home Meds Active Scripts Hydrocodone Bit/Acetaminophen (HYDROCODONE-APAP 5-217/10 SOLN) 10 Ml Solution, 10 ML PO PRN Q6HRS PRN for PAIN for 14 Days, #100 ML 0 Refills Prov:LALITHA WEBB III DO 04/12/21 Hydrocodone Bit/Acetaminophen (HYDROCODONE-APAP 7.5-325/15 SOLN ) 15 Ml Solu tion, 15 ML PO PRN Q6HRS PRN for PAIN, #225 ML 0 Refills Prov:KRISTEN ESPAÑA MD 03/05/21 Scopolamine (TRANSDERM-SCOP) 1 Each Patch.td72, 1 PATCH TP Q3DAYS, #4 PATCH Prov:LEXII CARRANZA DO 02/24/21 [Tpn Per Pharmacy] 1 EACH EACH No Conflict Check, 1 EACH MC PRN DAILY PRN for SEE COMMENTS for 30 Days, #60 Prov:JEFFERSON XAVIER MD 01/25/21 Ondansetron Hcl/Pf (ONDANSETRON HCL 4 MG/2 ML VIAL) 4 Mg/2 Ml Vial, 4 MG IVP PRN Q6HRS PRN for NAUSEA/VOMITING 1ST CHOICE for 30 Days, #90 EACH Prov:JEFFERSON XAVIER MD 11/30/19 Bisacodyl (BISACODYL) 10 Mg Supp.rect, 10 MG VA PRN DAILY PRN for CONSTIPATION, 1sT CHOICE for 30 Days, #30 SUPP.RECT Prov:JEFFERSON XAVIER MD 11/30/19 Reported Medications Enoxaparin Sodium (LOVENOX) 80 Mg/0.8 Ml Disp.syrin, 80 MG SQ DAILY for ANTI-COAGULANT, DIS.SYR 04/01/21 Valproate Sodium (VALPROIC ACID) 500 Mg/10 Ml Solution, 500 MG JT BID for TREMORS/SHAKING, MISC 11/14/20 Metoprolol Tartrate (Metoprolol Tartrate) 75 Mg Tablet, 25 MG PO BID for HEADACHES, TAB 11/14/20 Hyoscyamine Sulfate (LEVBID) 0.375 Mg Tab.er.12h, 0.375 MG JT BID for REFLUX, TAB.SR 11/14/20 Famotidine (FAMOTIDINE) 40 Mg Tablet, 40 MG IV DAILY for REFLUX, TAB 11/14/20 Tiotropium [place] (SPIRIVA) 18 Mcg Cap.w.dev, 2 INH IH BID for ASTHMA, #1 INH 0 Refills 11/14/20 Fluticasone/Vilanterol (Breo Ellipta 200-25 Mcg INH) 1 Each Blst.w.dev, 1 PUFF IH BID for ASTHMA, EACH 11/14/20 Docusate Sodium (DOCUSATE SODIUM) 100 Mg Capsule, 1 CAP PO DAILY for constipation for 30 Days, #30 CAP 0 Refills 06/25/20 Fremanezumab-Vfrm (Ajovy Autoinjector) 225 Mg/1.5 Ml Auto.injct, 225 MG SQ QMONTH for migraine, SYR 05/23/20 Tizanidine Hcl (TIZANIDINE HCL) 2 Mg Capsule, 2 MG JT Q8HRS PRN for MUSCLE SPASMS, CAP 05/23/20 Gabapentin (GABAPENTIN) 600 Mg Tablet, 300 MG JT TID for NEUROGENIC PAIN, TAB 05/21/20 Midodrine Hcl (MIDODRINE HCL) 5 Mg Tablet, 5 MG SL BID for Ortho Hypo, TAB 05/21/20 Magnesium Hydroxide (MILK OF MAGNESIA) 400 Mg/5 Ml Oral.susp, 400 MG JT PRN DAILY for constipation MDD 400mg, MISC 02/20/20 Mirtazapine (MIRTAZAPINE) 30 Mg Tab.rapdis, 45 MG PO QHS for depression for 30 Days, #45 TAB 0 Refills 02/20/20 Olopatadine HCl (Olopatadine HCl) 5 Ml Drops, 0.1 % OP PRN DAILY PRN for eye relief, DROP 08/20/19 Cholecalciferol (Vitamin D3) (VITAMIN D3) 4,000 Unit Capsule, 2000 UNIT JT HS for supplement, CAP 08/20/19 Levocetirizine Dihydrochloride (XYZAL) 5 Mg Tablet, 10 MG GT BID for allergies, TAB 08/20/19 Albuterol Sulfate (Proair Hfa) 8.5 Gm Hfa.aer.ad, 2 PUFF IH PRN Q4-6HRS PRN for wheezing for 21 Days, #1 INHALER 0 Refills 08/20/19 Ipratropium [place] (IPRATROPIUM BROMIDE) 30 Ml [place], 1 SPRAY NS BID for allergies, SPRAY 08/20/19 Ipratropium/Albuterol Sulfate (DUONEB 0.5-3(2.5) MG/3 ML) 3 Ml Ampul.neb, 3 ML NEB PRN QID PRN for asthma, EACH 08/20/19 Montelukast Sodium (MONTELUKAST SODIUM TABLET ) 10 Mg Tablet, 10 MG PO DAILY PRN for asthma, TAB 0 Refills 08/20/19 Multivitamin (MULTI VITAMIN DAILY) 1 Each Tablet, 1 EACH GT DAILY for supplement, TAB 08/20/19 ABIGAIL BRIZUELA MD Apr 12, 2021 17:25
--- NOTE | 2021-04-12 18:06 | NUR ---
Discharge Note: SUNITHA SCHULTZ Discharge instructions and discharge home medications reviewed with the patient and a copy given. All questions have been answered and understanding verbalized. The following instructions and handouts were given: Home meds as directed No home antibiotics per Dr. Santana. Follow up with PCP in a week Follow up with Dr. Santana as scheduled Resume home TPN Patient discharged to home with ROBERT hughes accompanied by the patient's grandparents at 1440.
--- NOTE | 2021-04-12 19:13 | NUR ---
Paged [facility] [phone] regarding the patient's TPN. Call back received at 1900, needs TPN orders faxed to their pharmacy. will inform MD and social service technician.
--- NOTE | 2021-04-13 18:08 | PATHOLOGY ---
[facility] Accession Number: [id number] . 01 Material submitted: . appendix - APPENDIX . 01 Clinical history: . APPENDICITIS LAPAROSCOPIC APPENDECTOMY . 02 Diagnosis: Vermiform appendix, excision: - Acute appendicitis, with transmural inflammation, acute serositis, and a small para-appendiceal abscess. - Negative for malignancy. (MLK/db; 04/13/2021) LBQ 04/13/2021 1746 Local . 02 Electronically signed: . Luz Vasquez MD, Pathologist NPI- [id number] . 01 Gross description: . Fixative: Formalin Labeled: Appendix Appendix length: 7.7 cm Appendix diameter: 1.0 cm Mesoappendix: 3.7 x 0.9 x 0.9 cm Proximal margin: Closed with a staple line Serosa: Carey-white with extensive purulent exudate Cut surface: Displays a focally dilated hemorrhagic lumen Luminal diameter: Up to 0.5 cm Perforation: No Lesions/abnormalities: None identified A1 Proximal margin (inked black) and distal tip, bisected A2 Mid appendix ([facility]; 04/11/2021) [facility] 04/11/2021 0935 Local . 02 Pathologist provided ICD-10: K35.21 . 02 CPT . 275091 Specimen Comment: A courtesy copy of this report has been sent to [phone], [phone] Specimen Comment: [phone], , Specimen Comment: Report sent to , DR WEBB, DR GOMEZ / Specimen Comment: DR YUN Performed at: 01 [facility] [address] [place] [address] [place] [id number] MD Matthew Soria MD Phone: [phone] Performed at: [address] [id number] MD Bryan Cruz MD Phone: [phone]
== END 2021-04-12 14:40 | disposition home health service (06) | DRG 342 ==
LOC: ER 23:28 → 5 SOUTH 04-08 02:00
PROVIDERS: ADMIT Internal Medicine; ATTEND Internal Medicine
PROC: 0DTJ4ZZ Resection of Appendix, Percutaneous Endoscopic Approach (ICD-10-PCS; principal; 2021-04-08 15:30)
DX: K35.80 Unspecified acute appendicitis (principal); F11.20 Opioid dependence, uncomplicated; G89.29 Other chronic pain; I10 Essential (primary) hypertension; J45.909 Unspecified asthma, uncomplicated; K31.84 Gastroparesis; Z79.01 Long term (current) use of anticoagulants; Z93.1 Gastrostomy status; F32.A Depression, unspecified; F41.9 Anxiety disorder, unspecified; G43.909 Migraine, unspecified, not intractable, without status migrainosus; K21.9 Gastro-esophageal reflux disease without esophagitis; Z86.718 Personal history of other venous thrombosis and embolism; Z88.0 Allergy status to penicillin; Z88.2 Allergy status to sulfonamides; Z88.8 Allergy status to other drugs, medicaments and biological substances; Z20.822 Contact with and (suspected) exposure to COVID-19
CPT/HCPCS: 36415; 74177; 80048; 80053; 81001; 81025; 82962; 83605; 83690; 83735; 84100; 84478; 85025; 87040; 87086; 87426; 96374; 96375; 96376; A4314; A4930; A6219; J0610; J0694; J0780; J1100; J1170; J1200; J1956; J2405; J2704; J2710; J3010; J3475; J3480; J3490; J7120; Q9967; U0003; U0005; 99285-25; G0378

== ENCOUNTER 2021-04-30 18:41 | Emergency (ER) | payer OTHER, MEDICARE, MEDICAID ==
[~2021-04-30] VITALS: Ht 170.2 cm; Wt 79.5 kg
--- NOTE | 2021-04-30 20:03 | PHYS DOC ---
Past Medical History Past Medical History: Asthma, DVT, GERD, Hypertension, Migraines, MRSA, Other Additional Past Medical Histor: GASTROPORESIS,RESP.FAILURE, SLEEP APNEA (COLTON SILVERIO) Past Surgical History: Appendectomy, Other Additional Past Surgical Histo: X 2 J-TUBES,G-TUBE,LEFT CHEST PORT (COLTON SILVERIO) Smoking Status: Former Smoker Alcohol Use: None Drug Use: None (COLTON SILVERIO) General Adult EDM: Chief Complaint: POST-OP PROBLEM HPI: HPI: Patient is a 21 year old female with significant past medical history, especially considering her age, who presents with bleeding from surgical inci yara site. Patient reports she had a laparoscopic appendectomy [address] Land here at [facility]. 7 days ago, on Tuesday, she was seen in Dr. Land's office for bleeding from this surgical incision. She was advised to keep pressure on the wound and to keep it clean. She reports compliance with instruction from Dr. Land's office, however the bleeding worsened today. She presented to the emergency department with gauze and an Germán bandage wrapped around her abdomen, which she bled through. Bleeding has minimized since presentation to the department. She reports associated weakness. She denies any purulent drainage, erythema surrounding the wound, fever, chills. (COLTON SILVERIO) Review of Systems: Review of Systems: ROS negative except as mentioned in HPI. (COLTON SILVERIO) Heart Score: C/O Chest Pain: No (COLTON SILVERIO) Allergies: Allergies: Allergies Coded Allergies Type Severity Reaction Last Updated Verified iron Allergy Severe Anaphylaxis 04/08/21 Yes Penicillins Allergy Intermediate LIGHT RASH CHILD 04/08/21 Yes Sulfa (Sulfonamide Antibiotics) Allergy Intermediate 04/08/21 Yes I S O L A T I O N *CONTACT* Allergy Unknown 04/08/21 Yes (COLTON SILVERIO) Physical Exam: PE: Constitutional: Well developed, well nourished, patient appears fatigued somewhat pale. Cardiovascular: Heart rate regular rhythm, no murmur. Lungs & Thorax: Bilateral breath sounds clear to auscultation. Abdomen: Bowel sounds normal, soft, no tenderness, no masses, no pulsatile masses. Skin: 1.2 cm surgical incision noted on the right side abdomen consistent with laparoscopic incision site that has fully dehisced and is a width of approximately 3 mm, there is minimal active bleeding at the time of exam. Skin otherwise warm, dry, no erythema, no rash. (COLTON SILVERIO) Current Patient Data: Labs: Laboratory Tests Test 04/30/21 20:30 White Blood Count 5.8 x10^3/uL (4.0-11.0) Red Blood Count 2.96 x10^6/uL (3.50-5.40) Hemoglobin 9.2 g/dL (12.0-15.5) Hematocrit 27.4 % (36.0-47.0) Mean Corpuscular Volume 93 fL (79-100) Mean Corpuscular Hemoglobin 31 pg (25-35) Mean Corpuscular Hemoglobin Concent 34 g/dL (31-37) Red Cell Distribution Width 13.6 % (11.5-14.5) Platelet Count 155 x10^3/uL (140-400) Neutrophils (%) (Auto) 61 % (31-73) Lymphocytes (%) (Auto) 28 % (24-48) Monocytes (%) (Auto) 10 % (0-9) Eosinophils (%) (Auto) 1 % (0-3) Basophils (%) (Auto) 0 % (0-3) Neutrophils # (Auto) 3.6 x10^3/uL (1.8-7.7) Lymphocytes # (Auto) 1.6 x10^3/uL (1.0-4.8) Monocytes # (Auto) 0.5 x10^3/uL (0.0-1.1) Eosinophils # (Auto) 0.0 x10^3/uL (0.0-0.7) Basophils # (Auto) 0.0 x10^3/uL (0.0-0.2) Prothrombin Time 14.4 SEC (11.7-14.0) Prothromb Time International Ratio 1.1 (0.8-1.1) Activated Partial Thromboplast Time 55 SEC (24-38) Vital Signs: Vital Signs Date Time Temp Pulse Resp B/P (MAP) Pulse Ox O2 Delivery O2 Flow Rate FiO2 04/30/21 19:30 98.3 111 18 126/71 (89) 99 Room Air 98.3 (COLTON SILVERIO) Radiology/Procedures: Radiology/Procedures: IMAGING REPORT Signed PATIENT: SUNITHA SCHULTZ ACCOUNT: [id number] : 2000 LOCATION: ER AGE: 21 SEX: F EXAM STATUS: REG ER ORD. PHYSICIAN: SALVATORE MEJIA DO REASON: postop bleeding w/wound dehiscence, tachY;OMNI 300,75ML PROCEDURE: CT ABD PELV W/ IV CONTRST ONLY INDICATION: Reason: postop bleeding w/wound dehiscence, tachY;OMNI 300,75ML / Spl. Instructions: / History: COMPARISON: April 08, 2021 TECHNIQUE: Axial CT images were obtained through the abdomen and pelvis with intravenous contrast. One or more of the following individualized dose reduction techniques were utilized for this examination: 1. Automated exposure control; 2. Adjustment of the mA and/or kV according to patient size; 3. Use of iterative reconstruction technique. FINDINGS: Nodular opacity right lung base again seen at costophrenic angle measuring approximately 7 mm. Commonly benign in a patient of this age. Percutaneous gastrostomy tube. Vascular: No abdominal aortic aneurysm. Hepatobiliary: Prominence of intrahepatic bile ducts which is commonly seen postcholecystectomy. Pancreas: No peripancreatic edema. Spleen: Prominent in size. In the right adnexa there is a fluid density structure measuring 38 mm. Renal/Bladder: No hydronephrosis. Gastrointestinal: Small free fluid in the pelvis. Percutaneous jejunostomy from the left. Additional percutaneous tube with balloon on the right. Postoperative changes to the colon. Subcutaneous edema to the fat at the right lower quadrant of the abdomen with some air in the subcutaneous soft tissues. Degenerative changes the spine. Scoliotic curvature spine. IMPRESSION: * Subcutaneous induration and edema in the fat at the right lower quadrant with some subcutaneous air. Infectious etiology such as cellulitis could have this appearance with another possible cause including some subcutaneous fluid/blood within the soft tissues. This does not have a well organized appearance. * Right adnexal cyst is suspected * Small free fluid in the pelvis Electronically signed by: Beverly Penn MD (04/30/2021 11:17 PM) DESKTOP- [id number] DICTATED and SIGNED BY: BEVERLY PENN MD DATE: 04/30/21 [id number] (SALVATORE MEJIA DO) Course & Med Decision Making: Course & Med Decision Making Pertinent Labs and Imaging studies reviewed. (See chart for details) Patient has been bleeding from her surgical incision site for approximately 1 week. Patient does appear weak, fatigued. CBC ordered to evaluate hemoglobin for hemorrhagic anemia. Spoke to Dr. Land, on general surgery service, who advised pressure dressing and discharged home pending CBC results. Patient's hemoglobin has dropped 1.5 since her surgical hemoglobin. Patient also appears weak and remains tachycardic. Patient care transferred to Dr. Mejia at 2113. (COLTON SILVERIO) Course & Med Decision Making I received signout from my midlevel. Patient has a longstanding history of tachycardia due to this is persistent bleeding, was pending CT imaging at her end of shift. Nonspecific elevation of ptt. There is a drop in her hemoglobin- patient has no exertional dyspnea or signs of anemia. Wound is 2.5 cm, horizontal and open-bloody subcutaneous fat with bleeding coming from underneath the pts' left side of the laceration-no brisk bleeding, slightly oozing. Gelfoam was placed in incisional wound with pressure dressing and successful hemostasis after observation. Patient has appointment with Dr. Mccollum at 1 PM today-he can decided if or not to remove gelfoam. Patient calm and resting comfortably. I re-assessed wound/pt multiple times. Pt was hoping to have wound closed -i educated on risk of infection will prescribe patient Keflex. Will discharge home with strict ED return precautions were given for worsening rash, fever, severe abdominal pain or vomiting. Encouraged urgent outpatient follow-up with PMD and general surgery, Dr. Mccollum today. Life-threatening processes were considered but are low suspicion at this time, given history, physical exam and ED workup. Pt was educated on all prescription medications and adverse effects. All patient's questions were answered and pt was stable at time of discharge. Life/limb-threatening differential includes but is not limited to, throm bocytopenia, drug related adverse event, gastrointestinal bleeding, posterior epistaxis, hemorrhagic shock, DIC, life-threatening rash, arterial injury or trauma. I have spoken with the patient and/or caregivers. I explained the patient's condition, diagnoses and treatment plan based on the information available to me at this time. I have answered the patient and/or caregiver's questions and addressed any concerns. The patient and/or caregivers have a good understanding of patient's diagnosis, condition and treatment plan as can be expected at this point. Vital signs have been stable. Patient's condition is stable and appropriate for discharge from the emergency department. Patient will pursue further outpatient evaluation with primary care physician or other designated or consulting physician as outlined in the discharge instructions. The patient and/or caregivers are agreeable to this plan of care and follow-up instructions have been explained in detail. The patient and/or caregivers have received these instructions in written form and have expressed an understanding of the discharge instructions. The patient and/or caregivers are aware that any significant change of condition or worsening of symptoms should prompt immediate return to this or the closest emergency department or call to 911. (SALVATORE MEJIA DO) Dragon Disclaimer: Dragon Disclaimer: This electronic medical record was generated, in whole or in part, using a voice recognition dictation system. (COLTON SILVERIO) Departure Departure Impression: Primary Impression: Postoperative bleeding from incision Additional Impressions: Wound dehiscence Normocytic anemia Disposition: HOME / SELF CARE / HOMELESS Condition: STABLE Referrals: [facility] (PCP) Follow-up with your primary care physician for routine care FOLLOW UP WITH FAMILY MEDICINE: [address] [facility], [facility] [address] [place] [address] Patient Instructions: Postsurgical Bleeding, Wound Dehiscence Additional Instructions: FOLLOW UP WITH SURGERY: at 1pm with Dr. Santana as scheduled [facility] General Surgery Address: [address] [facility], [facility] [address] [place] [address] EMERGENCY DEPARTMENT GENERAL DISCHARGE INSTRUCTIONS Thank you for coming to [facility] Emergency Department (ED) today and trusting us with you care. We trust that you had a positive experience in our Emergency Department. If you wish to speak to the department management, you may call the Director at [phone]. YOUR FOLLOW UP INSTRUCTIONS ARE FOLLOWS: 1. Do you have a private Doctor? If you do not have a private doctor, please ask for a resource list of physicians or clinics that may be able to assist you with follow up care. 2. The Emergency Physicain has interpreted your x-rays. The X-Ray specialist will also review them. If there is a change in the findings, you will be notified in 48 hours when at all possible. 3. A lab test or culture has been done, your results will be reviewed and you will be notified if you need a change in treatment. ADDITIONAL INSTRUCTIONS AND INFORMATION: 1. Your care today has been supervised by a physician who is specially trained in emergency care. Many problems require more than one evaluation for a complete diagnosis and treatment. We recommend that you schedule your follow up appointment as recommended to ensure complete treatment of you illness or injury. If you are unable to obtain follow up care and continue to have a problem, or if your condition worsens, we recommend that you return to the ED. 2. We are not able to safely determine your condition over the phone nor are we able to give sound medical advice over the phone. For these safety reasons, if you call for medical advice we will ask you to come to the ED for further evaluation. 3. If you have any questions regarding these discharge instructions please call the ED at [phone]. SAFETY INFORMATION: In the interest of safety, wellness, and injury prevention; we encourage you to wear your sealbelt, if you smoke; quite smoking, and we encourage family to use a protective helmet for bicycling and other sporting events that present an increased risk for head injury. IF YOUR SYMPTOMS WORSEN OR NEW SYMPTOMS DEVELOP, OR YOU HAVE CONCERNS ABOUT YOUR CONDITION; OR IF YOUR CONDITION WORSENS WHILE YOU ARE WAITING FOR YOUR FOLLOW UP APPOINTMENT; EITHER CONTACT YOUR PRIMARY CARE DOCTOR, THE PHYSICIAN WHOSE NAME AND NUMBER YOU WERE GIVEN, OR RETURN TO THE ED IMMEDIATELY. COLTON SILVERIO Apr 30, 2021 20:03 SALVATORE GARDUNO DO May 01, 2021 01:58
[2021-04-30 20:38] LABS: BASO % 0 % (0-3); EOS % 1 % (0-3); HEMATOCRIT 27.4 % (36.0-47.0); HEMOGLOBIN 9.2 g/dL (12.0-15.5); LYMPH # 1.6 x10^3/uL (1.0-4.8); LYMPH % 28 % (24-48); MEAN CORPUSCULAR HEMOGLOBIN 31 pg (25-35); MEAN CORPUSCULAR HGB CONC 34 g/dL (31-37); MEAN CORPUSCULAR VOLUME 93 fL (79-100); MONO # 0.5 x10^3/uL (0.0-1.1); MONO % 10 % (0-9); NEUT # 3.6 x10^3/uL (1.8-7.7); NEUT % 61 % (31-73); PLATELET COUNT 155 x10^3/uL (140-400); RED BLOOD COUNT 2.96 x10^6/uL (3.50-5.40); RED CELL DISTRIBUTION WIDTH 13.6 % (11.5-14.5); WHITE BLOOD COUNT 5.8 x10^3/uL (4.0-11.0)
[2021-04-30] MEDS ORDERED: MORPHINE SULFATE 4 MG/ML INJ. IVP ONE ×2 (20:45→22:30)
[2021-04-30 20:53] LABS: PROTHROMBIN TIME PATIENT 14.4 SEC (11.7-14.0)
[2021-04-30 21:37] LABS: CALCIUM 8.1 mg/dL (8.5-10.1); CREATININE 0.6 mg/dL (0.6-1.0); GFR 123.9
[2021-04-30] MEDS ORDERED: IOHEXOL 300 MG/ML 100ML VIAL. IV ONE (21:45)
[2021-04-30] MEDS ORDERED: CONTRAST GIVEN. MC PRN (22:00)
[2021-04-30] MEDS ORDERED: GELATIN SPONGE SIZE 12-7MM SPONGE. TP ONE (22:45)
--- NOTE | 2021-04-30 23:19 | RAD ---
INDICATION: Reason: postop bleeding w/wound dehiscence, tachY;OMNI 300,75ML / Spl. Instructions: / H istory: COMPARISON: April 08, 2021 TECHNIQUE: Axial CT images were obtained through the abdomen and pelvis with intravenous contrast. One or more of the following individualized dose reduction techniques were utilized for this examinat ion: 1. Automated exposure control; 2. Adjustment of the mA and/or kV according to patient size; 3 . Use of iterative reconstruction technique. FINDINGS: Nodular opacity right lung base again seen at costophrenic angle measuring approximately 7 mm. Common ly benign in a patient of this age. Percutaneous gastrostomy tube. Vascular: No abdominal aortic aneurysm. Hepatobiliary: Prominence of intrahepatic bile ducts which is commonly seen postcholecystectomy. Pancreas: No peripancreatic edema. Spleen: Prominent in size. In the right adnexa there is a fluid density structure measuring 38 mm. Renal/Bladder: No hydronephrosis. Gastrointestinal: Small free fluid in the pelvis. Percutaneous jejunostomy from the left. Additional percutaneous tube with balloon on the right. Postoperative changes to the colon. Subcutaneous edema to the fat at the right lower quadrant of the abdomen with some air in the subcutaneous soft tissues. Degenerative changes the spine. Scoliotic curvature spine. IMPRESSION: * Subcutaneous induration and edema in the fat at the right lower quadrant with some subcutaneous a ir. Infectious etiology such as cellulitis could have this appearance with another possible cause inc luding some subcutaneous fluid/blood within the soft tissues. This does not have a well organized joy earance. * Right adnexal cyst is suspected * Small free fluid in the pelvis Electronically signed by: Clifford Monzon MD (04/30/2021 11:17 PM) [id number]
[2021-05-01 01:53] VITALS: BP 120/69
[2021-05-01] MEDS ORDERED: IOHEXOL 300 MG/ML 100ML VIAL. ONE (04:36)
[2021-05-01] MEDS ORDERED: IOHEXOL 300 MG/ML 100ML VIAL. IV ONE (04:45)
== END 2021-05-01 02:30 | disposition home or self-care (01) ==
LOC: ER 18:41
DX: T81.30XA Disruption of wound, unspecified, initial encounter (principal); L76.22 Postprocedural hemorrhage of skin and subcutaneous tissue following other procedure; D64.9 Anemia, unspecified; J45.909 Unspecified asthma, uncomplicated; K21.9 Gastro-esophageal reflux disease without esophagitis; I10 Essential (primary) hypertension; G43.909 Migraine, unspecified, not intractable, without status migrainosus; Z87.891 Personal history of nicotine dependence; Z86.14 Personal history of Methicillin resistant Staphylococcus aureus infection; Z86.718 Personal history of other venous thrombosis and embolism; Z88.0 Allergy status to penicillin; Z88.2 Allergy status to sulfonamides; Z91.041 Radiographic dye allergy status; Z88.8 Allergy status to other drugs, medicaments and biological substances; Y83.8 Other surgical procedures as the cause of abnormal reaction of the patient, or of later complication, without mention of misadventure at the time of the procedure; Y92.89 Other specified places as the place of occurrence of the external cause
CPT/HCPCS: 36415; 74177; 80048; 85025; 85610; 85730; 96374; 96376; 99285; J2270; Q9967

== ENCOUNTER → 2021-05-20 | Outpatient (CLI) | payer OTHER, MEDICARE, MEDICAID ==
[~2021-05-20] VITALS: Ht 170.2 cm; Wt 77.3 kg
[~2021-05-20] MED LIST changes: +DAPTOmycin (GENERIC) IVPB 460 MG in IV NORMAL SALINE 50ML 50 ML IV ONE; +HEPARIN PF 500 UNIT/5 ML DISP.SYRIN. IVP ONE; +IODIXANOL 320 MG/ML 100 ML VIAL. IART ONE; +IODIXANOL 320 MG/ML 100 ML VIAL. ONE; +LIDOCAINE WITH 8.4% SOD BICARB 3 ML DISP.SYRIN. IJ ONE; +LIDOCAINE WITH 8.4% SOD BICARB 3 ML DISP.SYRIN. ONE; +LINE600T12 PO; +MIDAZOLAM HCL/PF 2 MG/2 ML VIAL. IV ONE; +MIDAZOLAM HCL/PF 2 MG/2 ML VIAL. ONE; +fentaNYL PF VIAL 100 MCG/2 ML VIAL IV ONE; +fentaNYL PF VIAL 100 MCG/2 ML VIAL ONE
[2021-05-20 08:02] VITALS: BP 119/58
[2021-05-20 09:25] VITALS: BP 112/58
[2021-05-20 09:35] VITALS: BP 106/42
--- NOTE | 2021-05-20 14:31 | RAD ---
Procedure: J-tube exchange 05/20/2021 Clinical Indication: Patient complaining of difficulty with flushing. Anesthesia: Local with moderate sedation. Continuous cardiopulmonary monitoring was preformed by inde pendent qualified nursing personnel. Please refer to the medical record for exact doses of medications utilized to achieve moderate sedati on. Conscious sedation was administered for 30 minutes. Contrast: 20 cc Isovue-300 Complications: None Consent: The procedure was explained in its entirety to the patient or the patients designated repre sentative by a member of the treatment team, including a discussion of the risks, benefits and common ly accepted alternatives to the procedure, as well as the expected consequences of no therapy whatsoe alexi. Discussion of the risks included, but was not limited to, those that are most frequent and those that are rare but possibly severe or life-threatening, as well as the possibility of unforeseen comp lications. All questions were answered and informed consent was obtained. Sterility: All elements of maximal sterile barrier technique including the use of a cap, mask, steril e gown, sterile gloves, large sterile sheet, appropriate hand hygiene, and 2% chlorhexidine for cutan eous antisepsis (or acceptable alternative antiseptic per current guidelines) were followed for this procedure. Patient was placed in the supine position. The abdomen and indwelling left J-tube were prepped and dr aped in the appropriate sterile fashion. A timeout was performed. Initial physician practice administrator image demonstrates t he J-tube overlying the epigastrium with a apparent kink at its mid course. There is also a G-tube an d a second right sided J-tube. Contrast was injected into the tube without resistance. The tube appea red to be oriented in the appropriate direction. The fluid in the retention balloon was removed and a wire was inserted through the tube will advance further into the jejunum. The tube was removed over the wire and a new 18 Estonian J-tube was cut approximately 10 cm longer and advanced over the wire. Th e bowel morphology somewhat changed with the tube now coursing more inferiorly. Contrast was injected through this tube and watched under fluoroscopy for approximately 10 minutes to ensure that it was n onoverlapping itself and within the efferent loop. The retention balloon was inflated with approximat catarino 5 cc of very dilute contrast. The bumper was placed at the skin. The tube was flushed and capped. Impression: Kcsz-sow-cuis exchange of patient's left-sided J-tube. The tube was cut longer placed more distally i n the jejunum. Electronically signed by: Amandeep López (05/20/2021 2:29 PM) [id number]
== END | disposition home or self-care (01) ==
LOC: INTRAD 07:30
PROVIDERS: ATTEND Surgery
DX: K94.23 Gastrostomy malfunction (principal); I10 Essential (primary) hypertension; J45.909 Unspecified asthma, uncomplicated; G47.30 Sleep apnea, unspecified; K21.9 Gastro-esophageal reflux disease without esophagitis; F41.9 Anxiety disorder, unspecified; F32.9 Major depressive disorder, single episode, unspecified; Z87.440 Personal history of urinary (tract) infections; Z90.49 Acquired absence of other specified parts of digestive tract; Z98.890 Other specified postprocedural states; Z79.899 Other long term (current) drug therapy; Z88.0 Allergy status to penicillin; Z88.2 Allergy status to sulfonamides
CPT/HCPCS: 49451; 99152; 99153; C1769; J2250; J3010; Q9967

== ENCOUNTER 2021-06-13 16:14 | Emergency (ER) | payer OTHER, MEDICARE, MEDICAID ==
[~2021-06-13] VITALS: Ht 170.2 cm; Wt 86.0 kg
[~2021-06-13 16:14] MED LIST changes: -DAPTOmycin (GENERIC) IVPB 460 MG in IV NORMAL SALINE 50ML 50 ML IV ONE; -HEPARIN PF 500 UNIT/5 ML DISP.SYRIN. IVP ONE; -IODIXANOL 320 MG/ML 100 ML VIAL. IART ONE; -IODIXANOL 320 MG/ML 100 ML VIAL. ONE; -LIDOCAINE WITH 8.4% SOD BICARB 3 ML DISP.SYRIN. IJ ONE; -LIDOCAINE WITH 8.4% SOD BICARB 3 ML DISP.SYRIN. ONE; -MIDAZOLAM HCL/PF 2 MG/2 ML VIAL. IV ONE; -MIDAZOLAM HCL/PF 2 MG/2 ML VIAL. ONE; -fentaNYL PF VIAL 100 MCG/2 ML VIAL IV ONE; -fentaNYL PF VIAL 100 MCG/2 ML VIAL ONE
[2021-06-13 16:58] LABS: BILIRUBIN,URINE NEGATIVE (NEG); CLARITY,URINE CLEAR; COLOR,URINE YELLOW; NITRITE,URINE NEGATIVE (NEG); PROTEIN,URINE NEGATIVE (NEG-TRACE)
[2021-06-13 17:03] LABS: BACTERIA,URINE 0 /HPF (0-FEW); WBC,URINE OCC /HPF (0-4)
[2021-06-13] MEDS ORDERED: TERB30CR13 TP (18:41)
--- NOTE | 2021-06-13 18:45 | PHYS DOC ---
Past Medical History Past Medical History: Asthma, DVT, GERD, Hypertension, Migraines, MRSA, Other Additional Past Medical Histor: GASTROPORESIS,RESP.FAILURE, SLEEP APNEA, INTEST. DISMOBILITY Past Surgical History: Appendectomy, Other Additional Past Surgical Histo: X2 J-TUBES,G-TUBE,LEFT CHEST PORT Smoking Status: Never Smoker Alcohol Use: None Drug Use: None General Adult EDM: Chief Complaint: ABDOMINAL PAIN HPI: HPI: Patient is a 21 year old female well-known to the emergency department and hospital with history of gastroparesis and chronic abdominal pain, among other extensive history, who presents with right-sided abdominal pain. Patient states she was seen by Dr. Mohr in the office yesterday, and was told she has a "fungal infection" of her tubes. She denies having been prescribed medication. She states she had mild abdominal pain during her office visit yesterday, but it worsened today. Patient reports a 101 F fever yesterday. Patient denies chills, generalized weakness, vomiting. She has taken Benadryl, Pepcid and Zofran IV at home through her port. Review of Systems: Review of Systems: 12 system ROS negative or noncontributory except as mentioned in HPI. Heart Score: C/O Chest Pain: No Allergies: Allergies: Allergies Coded Allergies Type Severity Reaction Last Updated Verified iron Allergy Severe Anaphylaxis 06/08/21 Yes Penicillins Allergy Intermediate LIGHT RASH CHILD 06/08/21 Yes Sulfa (Sulfonamide Antibiotics) Allergy Intermediate 06/08/21 Yes I S O L A T I O N *CONTACT* Allergy Unknown 06/08/21 Yes Physical Exam: PE: Constitutional: Well developed, well nourished, no acute distress, chronically ill-appearing, tearful when speaking about abdominal pain. HENT: Normocephalic, atraumatic, bilateral external ears normal, nose normal. Eyes: EOMI, conjunctiva normal, no discharge. Neck: Normal range of motion, no stridor. Abdomen: Multiple tubes in place consistent with history, bowel sounds normal, soft, diffuse abdominal tenderness, no masses, no pulsatile masses. Skin: Some erythema and discharge noted underneath tube bumpers. Skin otherwise warm, dry, no erythema, no rash. Neurologic: Alert and oriented x4, steady and symmetrical gait, no focal deficits noted. Current Patient Data: Labs: Laboratory Tests Test 06/13/21 16:40 06/13/21 16:55 Urine Collection Type Unknown Urine Color Yellow Urine Clarity Clear Urine pH 6.0 (<5.0-8.0) Urine Specific [place] >=1.030 (1.000-1.030) Urine Protein Negative mg/dL (NEG-TRACE) Urine Glucose (UA) Negative mg/dL (NEG) Urine Ketones (Stick) Negative mg/dL (NEG) Urine Blood Large (NEG) Urine Nitrite Negative (NEG) Urine Bilirubin Negative (NEG) Urine Urobilinogen Dipstick 1.0 mg/dL (0.2 mg/dL) Urine Leukocyte Esterase Small (NEG) Urine RBC 11-20 /HPF (0-2) Urine WBC Occ /HPF (0-4) Urine Squamous Epithelial Cells Mod /LPF Urine Bacteria 0 /HPF (0-FEW) POC Urine HCG, Qualitative Hcg negative (Negative) Vital Signs: Vital Signs Date Time Temp Pulse Resp B/P (MAP) Pulse Ox O2 Delivery O2 Flow Rate FiO2 06/13/21 19:55 99 Room Air 06/13/21 19:44 98 17 114/60 (78) 99 Room Air 06/13/21 19:29 94 18 119/62 (81) 99 Room Air 06/13/21 19:14 102 18 118/58 (78) 99 Room Air 06/13/21 19:06 100 Room Air 06/13/21 18:59 104 17 120/64 (82) 95 Room Air 06/13/21 18:29 102 18 118/57 (77) 99 Room Air 06/13/21 17:59 104 18 116/63 (80) 99 Room Air 06/13/21 17:29 103 18 117/55 (75) 100 Room Air 06/13/21 16:24 98.3 108 24 127/79 (95) 97 Room Air 98.3 Course & Med Decision Making: Course & Med Decision Making Pertinent Labs and Imaging studies reviewed. (See chart for details) Patient is a 21-year-old female with chronic abdominal pain and J/G-tubes placed who presents with right-sided abdominal pain and complaint of "fungal infection" of her tubes. While patient was in the lobby prior to being placed in a room, she was seen by hospital staff eating food purchased from vending machines. Patient is afebrile and hemodynamically stable at this time. I spoke to Dr. Langston, who is on-call for Dr. Mohr's office, concerning patient case. Dr. Langston concurs that medication should be provided for fungal infection, but otherwise she may follow-up outpatient basis in the office. Treatment plan discussed with the patient. She understands and is agreeable to discharge plan. Pooja Disclaimer: Dragon Disclaimer: This electronic medical record was generated, in whole or in part, using a voice recognition dictation system. Departure Departure Impression: Primary Impression: Chronic abdominal pain Additional Impressions: Gastroparesis Tinea corporis Disposition: HOME / SELF CARE / HOMELESS Condition: IMPROVED Referrals: ARASH YUN NP (PCP) TORIE SANTANA MD Patient Instructions: Yeast Infection of the Skin, [id number] Additional Instructions: EMERGENCY DEPARTMENT GENERAL DISCHARGE INSTRUCTIONS Thank you for coming to [facility] Emergency Department (ED) today and trusting us with you care. We trust that you had a positive experience in our Emergency Department. If you wish to speak to the department management, you may call the director at . YOUR FOLLOW UP INSTRUCTIONS ARE FOLLOWS: 1. Follow up with your primary care doctor. You should call Dr. Santana's office on Tuesday for a follow up appointment. 2. The emergency provider has interpreted your imaging studies, if any were ordered. The radiology media center specialist also reviewed them. If there is a change in the findings, you will be notified in 48 hours when at all possible. 3. If a lab test or culture has been done, your results will be reviewed and y ou will be notified if you need a change in treatment. 4. Follow instructions verbalized to you and refer to the printouts if needed. ADDITIONAL INSTRUCTIONS AND INFORMATION: 1. Your care today has been supervised by a physician who is specially trained in emergency care. Many problems require more than one evaluation for a complete diagnosis and treatment. We recommend that you schedule your follow up appointment as recommended to ensure complete treatment of you illness or injury. If you are unable to obtain follow up care and continue to have a problem, or if your condition worsens, we recommend that you return to the ED. 2. We are not able to safely determine your condition over the phone nor are we able to give sound medical advice over the phone. For these safety reasons, if you call for medical advice we will ask you to come to the ED for further evaluation. 3. If you have any questions regarding these discharge instructions please call the ED at . SAFETY INFORMATION: In the interest of safety, wellness, and injury prevention; we encourage you to wear your seat belt, if you smoke; quite smoking, and we encourage family to use a protective helmet for bicycling and other sporting events that present an increased risk for head injury. IF YOUR SYMPTOMS WORSEN OR NEW SYMPTOMS DEVELOP, OR YOU HAVE CONCERNS ABOUT YOUR CONDITION; OR IF YOUR CONDITION WORSENS WHILE YOU ARE WAITING FOR YOUR FOLLOW UP APPOINTMENT; EITHER CONTACT YOUR PRIMARY CARE DOCTOR, THE PHYSICIAN WHOSE NAME AND NUMBER YOU WERE GIVEN, OR RETURN TO THE ED IMMEDIATELY. Scripts Terbinafine Hcl (TERBINAFINE HCL) 30 Gm Cream..g. 1 JUSTYN TP BID, #1 BOX Apply cream twice daily to affected areas for 2 weeks. Prov: COLTON SILVERIO 06/13/21 COLTON SILVERIO Jun 13, 2021 18:45
[2021-06-13] MEDS ORDERED: MORPHINE SULFATE 4 MG/ML INJ. IVP ONE (19:15)
[2021-06-13 19:44] VITALS: BP 114/60
[2021-06-14] MEDS ORDERED: AZIT200S4 PO (19:34)
== END 2021-06-13 19:55 | disposition home or self-care (01) ==
LOC: ER 16:14
DX: K31.84 Gastroparesis (principal); G89.29 Other chronic pain; R10.84 Generalized abdominal pain; B35.4 Tinea corporis; J45.909 Unspecified asthma, uncomplicated; K21.9 Gastro-esophageal reflux disease without esophagitis; I10 Essential (primary) hypertension; G43.909 Migraine, unspecified, not intractable, without status migrainosus; Z86.718 Personal history of other venous thrombosis and embolism; Z90.89 Acquired absence of other organs; Z88.8 Allergy status to other drugs, medicaments and biological substances; Z88.0 Allergy status to penicillin; Z88.2 Allergy status to sulfonamides
CPT/HCPCS: 81001; 81025; 96374; 99285; J2270

== ENCOUNTER 2021-06-14 17:30 | Emergency (ER) | payer OTHER, MEDICARE, MEDICAID ==
[~2021-06-14] VITALS: Ht 170.2 cm; Wt 88.0 kg
[~2021-06-14 17:30] MED LIST changes: +TERB30CR13 TP
--- NOTE | 2021-06-14 18:10 | PHYS DOC ---
Past Medical History Past Medical History: Asthma, DVT, GERD, Hypertension, Migraines, MRSA, Other Additional Past Medical Histor: GASTROPORESIS,RESP.FAILURE, SLEEP APNEA, INTEST. DISMOBILITY Past Surgical History: Appendectomy, Other Additional Past Surgical Histo: X2 J-TUBES,G-TUBE,LEFT CHEST PORT Smoking Status: Never Smoker Alcohol Use: None Drug Use: None General Adult EDM: Chief Complaint: FEVER HPI: HPI: Patient is a 21 year old female. She has a past medical history of Asthma, DVT, Gerd, Hypertension, Migraines, Gastrreoporesis. Presents with the chief complaint of 'Fever" and disfuse abdominal pain. Abdominal pain is chronic. States she has a cough. Patient currently afebrile. Patient was evaluated in the ER yesterday. Abdominal exam benign. Review of Systems: Review of Systems: Review of systems: Constitutional symptoms- positive fever, no chills. Eyes- No Discharge, No Visual Loss Respiratory symptoms- No shortness of breath, No wheezing, No Dyspnea on Exertion Cardiovascular Systems; No chest pain, No Palpitations, No syncope Gastrointestinal symptoms: positive abdominal pain, no nausea, no vomiting or diarrhea. Genitourinary symptoms: No dysuria. Musculoskeletal symptoms: No back pain No extremity pain. NEUROLOGICAL Symptoms: No headache, no generalized weakness; No focal Weakness Skin: No rash. Heart Score: C/O Chest Pain: N/A Risk Factors: Risk Factors: DM, Current or recent (<one month) smoker, HTN, HLP, family history of CAD, obesity. Risk Scores: Score 0 - 3: 2.5% MACE over next 6 weeks - Discharge Home Score 4 - 6: 20.3% MACE over next 6 weeks - Admit for Clinical Observation Score 7 - 10: 72.7% MACE over next 6 weeks - Early Invasive Strategies Allergies: Allergies: Allergies Coded Allergies Type Severity Reaction Last Updated Verified iron Allergy Severe Anaphylaxis 06/08/21 Yes Penicillins Allergy Intermediate LIGHT RASH CHILD 06/08/21 Yes Sulfa (Sulfonamide Antibiotics) Allergy Intermediate 06/08/21 Yes I S O L A T I O N *CONTACT* Allergy Unknown 06/08/21 Yes Physical Exam: PE: General: alert, no acute distress. Skin: warm, dry and intact, no erythema, no rash. HENT: bilateral external ears normal, oropharynx moist, nose normal. Head:: Normocephalic, atraumatic. Neck: Trachea midline. Eyes: EOMI, Normal conjunctiva, No drainage CARDIOVASCULAR: Regular rate and rhythm RESPIRATORY: No respiratory distress Back: Full range of motion. MUSCULOSKELETAL: Full range of motion of bilateral upper and lower extremities. GASTROINTESTINAL: Abdomen soft without rebound or guarding. NEUROLOGICAL: Alert and noted to person, place and time. No neurological deficits observed Psychiatric: Cooperative. Normal judgment EKG: EKG: [] Radiology/Procedures: Radiology/Procedures: [] Impression: FINDINGS: Right port tip terminates over the distal SVC. The heart is not enlarged. Mediastinal and hilar contours are normal. Right perihilar and lung base airspace opacities likely consolidative process as pneumonia. Calcified granuloma left midlung. No pleural effusion or pneumothorax. IMPRESSION: Right perihilar and lung base airspace opacities likely consolidative process as pneumonia. Course & Med Decision Making: Course & Med Decision Making Pertinent Labs and Imaging studies reviewed. (See chart for details) [] Patient was evaluated for chief complaint. Work-up consisted of laboratory analysis radiologic imaging. Results reviewed and discussed with patient and family. Patient CBC CMP appear to be baseline. Chest x-ray lower lobe infiltrate. Patient was afebrile. She received a liter of IV fluids and Dilaudid 1 mg. Reevaluation patient appears to be comfortable she is watching the football game and talking on her cell phone. Discussed treatment plan with antibiotics she is requesting Zithromax liquid. Patient advised to take Tylenol ibuprofen as needed for pain or fever. Patient advised to continue all previously prescribed medications and to follow-up with her primary care provider. Pooja Disclaimer: Pooja Disclaimer: This electronic medical record was generated, in whole or in part, using a voice recognition dictation system. Departure Departure Impression: Primary Impression: Pneumonia Additional Impression: Fever Disposition: HOME / SELF CARE / HOMELESS Condition: STABLE Referrals: ARASH YUN CRUSHER PLANT OPERATOR (PCP) Patient Instructions: Chronic Pain, Fever, Pneumonia, Adult Scripts Azithromycin (AZITHROMYCIN ORAL SUSP) 200 Mg/5 Ml Susp.recon 2.25 ML PO DAILY, #25 ML 500ml PO x day 1 250ml PO x day 2-5 Disp QS No refills Prov: MELISSA CASIANO I DO 06/14/21 MELISSA CASIANO I DO Jun 14, 2021 18:10
[2021-06-14] MEDS ORDERED: IV NORMAL SALINE 1000ML BAG 1,000 ML IV ONE (18:15)
[2021-06-14 18:24] LABS: BASO % 0 % (0-3); EOS % 0 % (0-3); HEMATOCRIT 27.4 % (36.0-47.0); HEMOGLOBIN 8.9 g/dL (12.0-15.5); LYMPH # 0.2 x10^3/uL (1.0-4.8); LYMPH % 5 % (24-48); MEAN CORPUSCULAR HEMOGLOBIN 27 pg (25-35); MEAN CORPUSCULAR HGB CONC 33 g/dL (31-37); MEAN CORPUSCULAR VOLUME 83 fL (79-100); MONO # 0.2 x10^3/uL (0.0-1.1); MONO % 7 % (0-9); NEUT # 2.9 x10^3/uL (1.8-7.7); NEUT % 88 % (31-73); PLATELET COUNT 128 x10^3/uL (140-400); RED BLOOD COUNT 3.31 x10^6/uL (3.50-5.40); RED CELL DISTRIBUTION WIDTH 15.1 % (11.5-14.5); WHITE BLOOD COUNT 3.3 x10^3/uL (4.0-11.0)
[2021-06-14 18:30] VITALS: BP 83/60
[2021-06-14] MEDS ORDERED: HYDROmorphone 2 MG/ML INJ. IVP ONE (18:45)
[2021-06-14 18:47] LABS: CALCIUM 7.6 mg/dL (8.5-10.1); CREATININE 0.8 mg/dL (0.6-1.0); GFR 88.9; POTASSIUM 4.3 mmol/L (3.5-5.1)
[2021-06-14 18:52] LABS: ALBUMIN 3.6 g/dL (3.4-5.0); ALBUMIN/GLOBULIN RATIO 1.1 (1.0-1.7); TOTAL BILIRUBIN 0.5 mg/dL (0.2-1.0); TOTAL PROTEIN 6.8 g/dL (6.4-8.2)
--- NOTE | 2021-06-14 18:54 | RAD ---
EXAM: AP View of the chest DATE: 06/14/2021 6:31 PM INDICATION: Reason: fever / Spl. Instructions: / History: COMPARISON: No Prior FINDINGS: Right port tip terminates over the distal SVC. The heart is not enlarged. Mediastinal and hilar contours are normal. Right perihilar and lung base airspace opacities likely consolidative process as pneumonia. Calcified granuloma left midlung. No pleural effusion or pneumothorax. IMPRESSION: Right perihilar and lung base airspace opacities likely consolidative process as pneumonia. Electronically signed by: Lucius Jesus MD (06/14/2021 6:51 PM) [facility]
[2021-06-14 19:05] LABS: % BANDS 16 % (0-9); % BASOS 1 % (0-3); % LYMPHS 2 % (24-48); % MONOS 2 % (0-10); % SEGS 79 % (35-66); PLT ESTIMATE ADEQUATE (ADEQUATE)
[2021-06-14] MEDS ORDERED: ACETAMINOPHEN 325 MG TABLET. PO ONE (19:15)
[2021-06-14] MEDS ORDERED: AZIT200S4 PO (19:34)
== END 2021-06-14 19:55 | disposition home or self-care (01) ==
LOC: ER 17:30
DX: J18.9 Pneumonia, unspecified organism (principal); J45.909 Unspecified asthma, uncomplicated; I10 Essential (primary) hypertension; G43.909 Migraine, unspecified, not intractable, without status migrainosus; K21.9 Gastro-esophageal reflux disease without esophagitis; Z86.718 Personal history of other venous thrombosis and embolism; Z90.89 Acquired absence of other organs; Z88.0 Allergy status to penicillin; Z88.8 Allergy status to other drugs, medicaments and biological substances; Z88.2 Allergy status to sulfonamides
CPT/HCPCS: 36415; 71045; 80053; 85007; 85025; 96361; 96374; 99284; J1170; J7030

== ENCOUNTER 2021-06-16 12:45 | Inpatient (IN) | payer OTHER, MEDICARE, MEDICAID ==
[~2021-06-16] VITALS: Ht 170.2 cm; Wt 87.5 kg
[~2021-06-16 12:45] MED LIST changes: +AZIT200S4 PO
[2021-06-16] MEDS ORDERED: ONDANSETRON PF 4 MG/2 ML VIAL. IVP ONE ×2 (14:00→18:45)
[2021-06-16] MEDS ORDERED: HYDROmorphone 2 MG/ML INJ. IVP ONE ×3 (14:00→19:30)
[2021-06-16] MEDS ORDERED: PANTOPRAZOLE IV PUSH 40 MG VIAL. IVP ONE (14:00)
[2021-06-16] MEDS ORDERED: diphenhydrAMINE 50 MG/ML VIAL IVP ONE (14:00)
[2021-06-16] MEDS ORDERED: IV NORMAL SALINE 1000ML BAG 1,000 ML IV ONE (14:00)
--- NOTE | 2021-06-16 14:33 | PHYS DOC ---
Past Medical History Past Medical History: Asthma, DVT, GERD, Hypertension, Migraines, MRSA, Other Additional Past Medical Histor: gastroparesis Past Surgical History: Other Additional Past Surgical Histo: g-tube, j-tube, port Smoking Status: Never Smoker Alcohol Use: None Drug Use: None General Adult EDM: Chief Complaint: FEVER HPI: HPI: Patient is a 21 year old female with history of hypertension, DVT on lovenox shots, idiopathic gastroparesis with multiple abdominal surgeries for G-tubes and J-tube placement and takedown's, Port-A-Cath for TPN infusions who presents to the ED today complaining of chronic abdominal pain with nausea and vomiting. Patient states she has been seen in the ED 2 times in the last 1weeks for the same complaint. this is her third visit. She states she was diagnosed with pneumonia on June 14, 2021 which is 3 days ago. She states she was put on azithromycin. She states she believes she has "bloodstream" infection. She is thrashing around in sitting position, crying out loud and asking if we can give her something for pain. When I asked her what specifically she takes for pain, she states "Dilaudid" with Benadryl and Zofran as well as Protonix. Review of Systems: Review of Systems: Constitutional: Denies fever or chills. [] Eyes: Denies change in visual acuity. [] HENT: Denies nasal congestion or sore throat. [] Respiratory: Denies cough or shortness of breath. [] Cardiovascular: Denies chest pain or edema. [] GI: Reports chronic abdominal pain with chronic nausea and vomiting, denies bloody stools or diarrhea. [] : Denies dysuria. [] Musculoskeletal: Denies back pain or joint pain. [] Integument: Denies rash. [] Neurologic: Denies headache, focal weakness or sensory changes. [] Psychiatric: Denies depression or anxiety. [] Heart Score: C/O Chest Pain: N/A Risk Factors: Risk Factors: DM, Current or recent (<one month) smoker, HTN, HLP, family history of CAD, obesity. Risk Scores: Score 0 - 3: 2.5% MACE over next 6 weeks - Discharge Home Score 4 - 6: 20.3% MACE over next 6 weeks - Admit for Clinical Observation Score 7 - 10: 72.7% MACE over next 6 weeks - Early Invasive Strategies Current Medications: Current Medications Medications (Trade) Dose Ordered Sig/Kel Start Time Stop Time Status Last Admin Dose Admin Diphenhydramine HCl (Benadryl) 25 mg 1X ONCE 06/16/21 14:00 06/16/21 14:01 DC 06/16/21 14:19 25 MG Hydromorphone HCl (Dilaudid) 1 mg 1X ONCE 06/16/21 14:00 06/16/21 14:01 DC 06/16/21 14:18 1 MG Ondansetron HCl (Zofran) 4 mg 1X ONCE 06/16/21 14:00 06/16/21 14:01 DC 06/16/21 14:18 4 MG Pantoprazole Sodium (PROTONIX VIAL for IV PUSH) 40 mg 1X ONCE 06/16/21 14:00 06/16/21 14:01 DC 06/16/21 14:19 40 MG Sodium Chloride 1,000 ml @ 1,000 mls/hr 1X ONCE 06/16/21 14:00 06/16/21 14:59 06/16/21 14:00 1,000 MLS/HR Allergies: Allergies: Allergies Coded Allergies Type Severity Reaction Last Updated Verified iron Allergy Severe Anaphylaxis 06/16/21 Yes Penicillins Allergy Intermediate LIGHT RASH CHILD 06/16/21 Yes Sulfa (Sulfonamide Antibiotics) Allergy Intermediate 06/16/21 Yes I S O L A T I O N *CONTACT* Allergy Unknown 06/16/21 Yes Physical Exam: PE: Constitutional: Well developed, well nourished, no acute distress, non-toxic appearance. [] HENT: Normocephalic, atraumatic, bilateral external ears normal, oropharynx moist, no oral exudates, nose normal. [] Eyes: PERRLA, EOMI, conjunctiva normal, no discharge. [] Neck: Normal range of motion, no tenderness, supple, no stridor. [] Cardiovascular: Right upper chest Port-A-Cath noted. Heart rate regular rhythm, no murmur [] Lungs & Thorax: Bilateral breath sounds clear to auscultation [] Abdomen: 2 J-tubes, 1 G-tube noted. Bowel sounds normal, soft, diffuse tenderness throughout the abdomen, no obvious point tenderness to the abdomen, no masses, no pulsatile masses. [] Skin: Warm, dry, no erythema, no rash. [] Back: No tenderness, no CVA tenderness. [] Extremities: No tenderness, no cyanosis, no clubbing, ROM intact, no edema. [] Neurologic: Alert and oriented X 3, normal motor function, normal sensory function, no focal deficits noted. [] Psychologic: Flat affect, crying out loud with no tears coming, thrashing around in the bed in sitting position Current Patient Data: Vital Signs: Vital Signs Date Time Temp Pulse Resp B/P (MAP) Pulse Ox O2 Delivery O2 Flow Rate FiO2 06/16/21 14:18 Room Air 06/16/21 13:42 98.9 113 15 145/100 (115) 96 98.9 EKG: EKG: [] Radiology/Procedures: Radiology/Procedures: []PROCEDURE: ACUTE ABDOMEN SERIES Study: XR ABDOMEN COMP ACUTE Indication: Fever. Abdominal pain. Comparison: Chest radiograph 06/14/2021; CT abdomen/pelvis 05/11/2022 Findings: Accessed right chest wall Port-A-Cath terminating within the SVC. Unchanged cardiomediastinal silhouette and kym. Low lung volumes with suspected basilar atelectasis more noticeable on the right. No lobar consolidation. Similar mild hazy attenuation at the costophrenic angles. Large effusion. No pneumothorax. Jejunostomy tube with the tip projecting at the right lower quadrant. There appears to be a gastrostomy tube is well. The bowel gas pattern is nonobstructive. Mild volume well-formed stool within the rectum. Cholecystectomy clips. No radiographic evidence for pneumoperitoneum. Impression: 1. No newly seen radiographic abnormality of the chest 06/14/2021. 2. The bowel gas pattern is nonobstructive. 3. Jejunostomy tube with the tip projecting at the right lower quadrant. Gastrostomy tube present as well. 4. Mild volume well-formed stool within the rectum. Electronically signed by: CODY LEUNG MD (06/16/2021 2:34 PM) [facility] DICTATED and SIGNED BY: CODY LEUNG MD DATE: 06/16/21 [id number] 0 Course & Med Decision Making: Course & Med Decision Making Pertinent Labs and Imaging studies reviewed. (See chart for details) This is a 21-year-old female patient well-known to this ED presenting today complaining of chronic generalized abdominal pain with chronic nausea and vomiting. Patient also reports she believes she has bloodstream infection. This is her third visit in this ED in the last 7 days. She was diagnosed with pneumonia 3 days ago and started on azithromycin. She arrives in the ED thrashing around crying out loud requesting pain medicine specifically Dilaudid, Benadryl Zofran and Protonix. Nursing staff report immediately she was given Dilaudid she stopped crying instantly, she started talking smiling and was in no distress Acute abdominal series interpreted by radiologist was negative for any acute findings, noted for constipation. Vitals on arrival to the ED temperature 98.1, heart rate 113 with patient thrashing around, respiration 15, blood pressure 145/100, patient reports history of hypertension and states she has not used any of her blood pressure m edicines for a couple days. O2 sats 96% on room air. Patient did not provide urine. CBC with a WBC of 2.6, hemoglobin 7.9 with hematocrit of 24.1, this is a drop from patient's labs done on June 14, 2021 where hemoglobin was 8.9 with hematocrit of 27.4, WBC 2.6 I spoke to patient about her hemoglobin and hematocrit. Patient states she has problems with her blood including chronic anemia. She states she is supposed to be on iron to keep her blood levels up, she states she has not been using any of her iron for a few days and typically that will drop her blood levels. Denies any rectal bleed, denies any vaginal bleeding, she states she does not get menstrual cycles because she has an IUD. She states she is on Lovenox for DVTs. She states she follows up with a tire trimmer hand for her chronic anemia. She states she has an appointment on Tuesday which she hopes to keep. No urine from patient yet Spoke with Dr. Orta who recommended we get a CT of her abdomen and pelvis considering this is her third visit in the ED for abdominal pain Patient mother was comfortable, when she returned patient started crying loudly. She was refusing to go to CT stating she has abdominal pain and vomiting she cannot lay down. She was also demanding Dr. Santana to be contacted and admit her to the hospital JULIO CÉSAR I spoke to Dr. Santana who stated if indicated she can be admitted but has to be under hospitalist I spoke to Dr. Bynum who accepted patient for admission Pooja Disclaimer: Pooja Disclaimer: This electronic medical record was generated, in whole or in part, using a voice recognition dictation system. Departure Departure Impression: Primary Impression: Intractable nausea and vomiting Additional Impression: Intractable abdominal pain Disposition: ADMITTED INPATIENT Condition: STABLE Referrals: ARASH YUN SHUTDOWN PLANNER (PCP) HEYDI MORRIS WIRE BASKET MAKER Jun 16, 2021 14:33
--- NOTE | 2021-06-16 14:36 | RAD ---
Study: XR ABDOMEN COMP ACUTE Indication: Fever. Abdominal pain. Comparison: Chest radiograph 06/14/2021; CT abdomen/pelvis 05/11/2022 Findings: Accessed right chest wall Port-A-Cath terminating within the SVC. Unchanged cardiomediastinal silhouette and kym. Low lung volumes with suspected basilar atelectasis more noticeable on the right. No lobar consolidation. Similar mild hazy attenuation at the costophren ic angles. Large effusion. No pneumothorax. Jejunostomy tube with the tip projecting at the right lower quadrant. There appears to be a gastrosto my tube is well. The bowel gas pattern is nonobstructive. Mild volume well-formed stool within the re ctum. Cholecystectomy clips. No radiographic evidence for pneumoperitoneum. Impression: 1. No newly seen radiographic abnormality of the chest 06/14/2021. 2. The bowel gas pattern is nonobstructive. 3. Jejunostomy tube with the tip projecting at the right lower quadrant. Gastrostomy tube present as well. 4. Mild volume well-formed stool within the rectum. Electronically signed by: CODY LEUNG MD (06/16/2021 2:34 PM) [facility]
[2021-06-16 14:37] LABS: BASO % 0 % (0-3); EOS % 0 % (0-3); HEMATOCRIT 24.1 % (36.0-47.0); HEMOGLOBIN 7.9 g/dL (12.0-15.5); LYMPH # 0.4 x10^3/uL (1.0-4.8); LYMPH % 16 % (24-48); MEAN CORPUSCULAR HEMOGLOBIN 27 pg (25-35); MEAN CORPUSCULAR HGB CONC 33 g/dL (31-37); MEAN CORPUSCULAR VOLUME 83 fL (79-100); MONO # 0.5 x10^3/uL (0.0-1.1); MONO % 20 % (0-9); NEUT # 1.6 x10^3/uL (1.8-7.7); NEUT % 64 % (31-73); PLATELET COUNT 75 x10^3/uL (140-400); RED CELL DISTRIBUTION WIDTH 15.4 % (11.5-14.5); WHITE BLOOD COUNT 2.6 x10^3/uL (4.0-11.0)
[2021-06-16 15:03] LABS: CALCIUM 7.8 mg/dL (8.5-10.1); CREATININE 0.6 mg/dL (0.6-1.0); GFR 123.9; POTASSIUM 4.1 mmol/L (3.5-5.1)
[2021-06-16 15:07] LABS: % ATYL 1 % (0-0); % BANDS 10 % (0-9); % MONOS 8 % (0-10); PLT ESTIMATE DECREASED (ADEQUATE)
[2021-06-16 15:09] LABS: ALBUMIN 3.1 g/dL (3.4-5.0); ALBUMIN/GLOBULIN RATIO 0.9 (1.0-1.7); POIKILOCYTOSIS SLIGHT; TOTAL BILIRUBIN 0.5 mg/dL (0.2-1.0); TOTAL PROTEIN 6.7 g/dL (6.4-8.2)
[2021-06-16 15:10] LABS: % LYMPHS 23 % (24-48); % SEGS 58 % (35-66); OVALOCYTES FEW
[2021-06-16] MEDS ORDERED: CONTRAST GIVEN. MC PRN (18:15)
[2021-06-16] MEDS ORDERED: IOHEXOL 300 MG/ML 100ML VIAL. IV ONE (18:15)
[2021-06-16] MEDS ORDERED: ONDANSETRON PF 4 MG/2 ML VIAL. ONE (18:35)
[2021-06-16] MEDS ORDERED: METOCLOPRAMIDE HCL 10 MG/2 ML VIAL. IVP ONE (19:30)
[2021-06-16 20:10] VITALS: BP 125/100
--- NOTE | 2021-06-16 20:16 | NUR ---
The patient, SUNITHA SCHULTZ, 21 y/o, F admitted by LALITHA WEBB III, DO, was given written information regarding hospital policies, unit procedures and contact persons. Valuables were checked and left with her.
--- NOTE | 2021-06-16 20:17 | RAD ---
CT ABDOMEN+PELVIS W History: Abdominal pain, vomiting, multiple GI surgeries. Comparison: CT abdomen pelvis 05/13/2021 Technique: CT of the abdomen and pelvis with intravenous contrast. Findings: Mild dependent changes. No pleural effusion or pneumothorax. Partially visualized catheter tip at the high right atrium. The liver, pancreas, adrenals and kidneys are unremarkable. No nephrolithiasis or hydronephrosis. The bladder, uterus and adnexa are within normal limits. Status post cholecystectomy. Stable mildly enla rged spleen measuring approximately 14 cm AP. Percutaneous gastrostomy tube is appropriately positioned. Left-sided percutaneous long tube jejunost guerrero redemonstrated in appropriate position. Unchanged right-sided percutaneous jejunostomy. Now small bowel distention to suggest obstruction. The colon is within normal limits without wall thickening. Mild stool burden at the rectum. Vasculature are unremarkable. No intra-abdominal free air or significant free fluid. No abscess. Soft tissues and osseous structures are unremarkable. Impression: 1. Expected positioning of percutaneous gastrostomy and 2 jejunostomy tubes. No evidence of complica tion. 2. Mild splenomegaly, measuring 14 cm AP. 3. No acute inflammatory process in the abdomen and pelvis. ------ Exposure: One or more of the following individualized dose reduction techniques were utilized for thi s examination: 1. Automated exposure control 2. Adjustment of the mA and/or kV according to patient size 3. Use of iterative reconstruction technique. Electronically signed by: Waylon Koroma MD (06/16/2021 8:15 PM) [facility]
[2021-06-16 21:12] LABS: INFLUENZA A PATIENT NEGATIVE (NEGATIVE); INFLUENZA B PATIENT NEGATIVE (NEGATIVE)
[2021-06-16] MEDS: IV NORMAL SALINE 1000ML BAG 1,000 ML IV SCH (21:42)
[2021-06-16] MEDS: ONDANSETRON PF 4 MG/2 ML VIAL. IVP PRN (21:44)
[2021-06-16] MEDS: diphenhydrAMINE 50 MG/ML VIAL IVP PRN (21:45)
[2021-06-16 23:00] VITALS: BP 114/57
[2021-06-17 00:35] LABS: BILIRUBIN,URINE NEGATIVE (NEG); CLARITY,URINE CLEAR; COLOR,URINE AMBER; NITRITE,URINE NEGATIVE (NEG); PH,URINE 5.5 (<5.0-8.0); PROTEIN,URINE NEGATIVE (NEG-TRACE)
[2021-06-17 00:42] LABS: BARBITURATES NEG (NEG); BENZODIAZEPINES NEG (NEG); CANNABINOIDS NEG (NEG); COCAINE NEG (NEG); METHADONE NEG (NEG); OPIATES POS (NEG); PHENCYCLIDINE NEG (NEG)
[2021-06-17] MEDS: HYDROmorphone 2 MG/ML INJ. IVP PRN ×7 (00:43→22:49)
[2021-06-17 00:45] LABS: AMORPHOUS SEDIMENT,UR PRESENT /HPF; BACTERIA,URINE MODERATE /HPF (0-FEW)
[2021-06-17 00:46] LABS: AMPHETAMINE/METHAMPHETAMINE NEG (NEG)
[2021-06-17] MEDS: diphenhydrAMINE 50 MG/ML VIAL IVP PRN ×3 (04:01→19:31)
[2021-06-17 04:21] LABS: BASO % 0 % (0-3); EOS % 0 % (0-3); HEMATOCRIT 22.5 % (36.0-47.0); HEMOGLOBIN 7.3 g/dL (12.0-15.5); LYMPH # 0.2 x10^3/uL (1.0-4.8); LYMPH % 7 % (24-48); MEAN CORPUSCULAR HEMOGLOBIN 27 pg (25-35); MEAN CORPUSCULAR HGB CONC 33 g/dL (31-37); MEAN CORPUSCULAR VOLUME 83 fL (79-100); MONO # 0.5 x10^3/uL (0.0-1.1); MONO % 15 % (0-9); NEUT # 2.3 x10^3/uL (1.8-7.7); NEUT % 77 % (31-73); PLATELET COUNT 72 x10^3/uL (140-400); RED BLOOD COUNT 2.72 x10^6/uL (3.50-5.40); RED CELL DISTRIBUTION WIDTH 15.2 % (11.5-14.5)
[2021-06-17 04:44] LABS: ALBUMIN 2.8 g/dL (3.4-5.0); ALBUMIN/GLOBULIN RATIO 0.8 (1.0-1.7); CALCIUM 7.4 mg/dL (8.5-10.1); CREATININE 0.6 mg/dL (0.6-1.0); GFR 123.9; POTASSIUM 3.6 mmol/L (3.5-5.1); TOTAL BILIRUBIN 0.6 mg/dL (0.2-1.0); TOTAL PROTEIN 6.2 g/dL (6.4-8.2)
[2021-06-17 07:00] VITALS: BP 130/66
[2021-06-17] MEDS: ONDANSETRON PF 4 MG/2 ML VIAL. IVP PRN ×3 (07:34→22:50)
[2021-06-17] MEDS ORDERED: PIP/TAZO PER PHARMACY MC PRN (08:00)
[2021-06-17] MEDS ORDERED: VANCOMYCIN PER PHARMACY MC PRN (08:00)
[2021-06-17] MEDS ORDERED: VANCOMYCIN 2 GM in IV NORMAL SALINE 500ML BAG 500 ML IV ONE (08:15)
--- NOTE | 2021-06-17 08:25 | PDOC1 ---
History and Physical Date of Service: DOS: DATE: 06/17/21 TIME: 08:17 Chief Complaint: Chief Complain: Fever History of Present Illness: HPI: 21 year old female with history of hypertension, DVT on lovenox shots, idiopathic gastroparesis with multiple abdominal surgeries for G-tubes and J- tube placement and takedown's, Port-A-Cath for TPN infusions who presents to the ED today complaining of chronic abdominal pain with nausea and vomiting. Patient states she has been seen in the ED 2 times in the last 1weeks for the same complaint. this is her third visit. She states she was diagnosed with pneumonia on June 14, 2021 which is 3 days ago. She states she was put on azithromycin. She states she believes she has "bloodstream" infection. Patient arrived to the ED crying and complaining of pain and asking for narcotic medications. Past Medical/Surgical History: PMH/PSH: Past Medical History: Asthma, DVT, GERD, Hypertension, Migraines, MRSA infection, GASTROPORESIS,RESP.FAILURE, SLEEP APNEA Past Surgical History: X 2 J-TUBES,G-TUBE,LEFT CHEST PORT Allergies: Allergies: Coded Allergies: iron (Verified Allergy, Severe, Anaphylaxis, 06/16/21) Penicillins (Verified Allergy, Intermediate, LIGHT RASH CHILD, 06/16/21) TOLERATES ZOSYN Sulfa (Sulfonamide Antibiotics) (Verified Allergy, Intermediate, 06/16/21) I S O L A T I O N *CONTACT* (Verified Allergy, Unknown, 06/16/21) mrsa Family History: Family History: Reviewed with no relevant findings Social History: Social History: Smoking Status: Never Smoker Alcohol Use: None Drug Use: None Current Medications: Current Medications Current Medications Sodium Chloride 1,000 ml @ 1,000 mls/hr 1X ONCE IV Last administered on 06/16/21at 14:00; Start 06/16/21 at 14:00; Stop 06/16/21 at 14:59; Status DC Ondansetron HCl (Zofran) 4 mg 1X ONCE IVP Last administered on 06/16/21at 14:18; Start 06/16/21 at 14:00; Stop 06/16/21 at 14:01; Status DC Hydromorphone HCl (Dilaudid) 1 mg 1X ONCE IVP Last administered on 06/16/21at 14:18; Start 06/16/21 at 14:00; Stop 06/16/21 at 14:01; Status DC Diphenhydramine HCl (Benadryl) 25 mg 1X ONCE IVP Last administered on 06/16/21at 14:19; Start 06/16/21 at 14:00; Stop 06/16/21 at 14:01; Status DC Pantoprazole Sodium (PROTONIX VIAL for IV PUSH) 40 mg 1X ONCE IVP Last administered on 06/16/21at 14:19; Start 06/16/21 at 14:00; Stop 06/16/21 at 14:01; Status DC Hydromorphone HCl (Dilaudid) 1 mg 1X ONCE IVP Last administered on 06/16/21at 16:30; Start 06/16/21 at 16:30; Stop 06/16/21 at 16:31; Status DC Iohexol (Omnipaque 300 Mg/ml) 75 ml 1X ONCE IV Last administered on 06/16/21at 18:15; Start 06/16/21 at 18:15; Stop 06/16/21 at 18:16; Status DC Info (CONTRAST GIVEN -- Rx MONITORING) 1 each PRN DAILY PRN MC SEE COMMENTS; Start 06/16/21 at 18:15; Stop 06/18/21 at 18:14 Ondansetron HCl (Zofran) 4 mg 1X ONCE IVP Last administered on 06/16/21at 18:40; Start 06/16/21 at 18:45; Stop 06/16/21 at 18:46; Status DC Ondansetron HCl (Zofran) 4 mg STK-MED ONCE .ROUTE ; Start 06/16/21 at 18:35; Stop 06/16/21 at 18:36; Status DC Hydromorphone HCl (Dilaudid) 1 mg 1X ONCE IVP Last administered on 06/16/21at 19:41; Start 06/16/21 at 19:30; Stop 06/16/21 at 19:31; Status DC Metoclopramide HCl (Reglan Vial) 10 mg 1X ONCE IVP Last administered on 06/16/21at 19:40; Start 06/16/21 at 19:30; Stop 06/16/21 at 19:31; Status DC Ondansetron HCl (Zofran) 4 mg PRN Q8HRS PRN IVP NAUSEA/VOMITING Last administered on 06/17/21at 07:34; Start 06/16/21 at 20:00; Stop 06/17/21 at 19:59 Sodium Chloride 1,000 ml @ 75 mls/hr [id number] IV Last administered on 06/16/21at 21:42; Start 06/16/21 at 20:00 Metoclopramide HCl (Reglan Vial) 10 mg PRN Q6HRS PRN IVP NAUSEA/VOMITING; Start 06/16/21 at 20:00 Hydromorphone HCl (Dilaudid) 1 mg PRN Q3HRS PRN IVP PAIN Last administered on 06/17/21at 07:34; Start 06/16/21 at 20:00 Lorazepam (Ativan Inj) 1 mg 1X STAT IVP Last administered on 06/16/21at 20:32; Start 06/16/21 at 19:47; Stop 06/16/21 at 19:57; Status DC Diphenhydramine HCl (Benadryl) 25 mg PRN Q6HRS PRN IVP ITCHING Last administered on 06/17/21at 04:01; Start 06/16/21 at 20:15 Piperacillin Sod/ Tazobactam Sod (Zosyn Per Pharmacy) 1 each PRN DAILY PRN MC SEE COMMENTS; Start 06/17/21 at 08:00 Vancomycin HCl (Vanco Per Pharmacy) 1 each PRN DAILY PRN MC SEE COMMENTS; Start 06/17/21 at 08:00 Vancomycin HCl 2 gm/Sodium Chloride 500 ml @ 250 mls/hr 1X ONCE IV ; Start 06/17/21 at 08:15; Stop 06/17/21 at 10:14 Active Scripts Active Azithromycin Oral Susp (Azithromycin) 200 Mg/5 Ml Susp.recon 2.25 Ml PO DAILY 500ml PO x day 1 250ml PO x day 2-5 Disp QS No refills Terbinafine Hcl 30 Gm Cream..g. 1 Judie TP BID Apply cream twice daily to affected areas for 2 weeks. Hydrocodone-Apap 7.5-325/15 Soln (Hydrocodone Bit/Acetaminophen) 15 Ml Solution 15 Ml PO PRN Q6HRS PRN Transderm-Scop (Scopolamine) 1 Each Patch.td72 1 Patch TP Q3DAYS [Tpn Per Pharmacy] 1 EACH Each 1 Each MC PRN DAILY PRN 30 Days Ondansetron Hcl 4 Mg/2 Ml Vial (Ondansetron Hcl/Pf) 4 Mg/2 Ml Vial 4 Mg IVP PRN Q6HRS PRN 30 Days Bisacodyl 10 Mg Supp.rect 10 Mg NV PRN DAILY PRN 30 Days Reported Valproic Acid (Valproate Sodium) 500 Mg/10 Ml Solution 500 Mg JT BID Metoprolol Tartrate 75 Mg Tablet 25 Mg PO BID Levbid (Hyoscyamine Sulfate) 0.375 Mg Tab.er.12h 0.375 Mg JT BID Famotidine 40 Mg Tablet 40 Mg IV DAILY Spiriva (Tiotropium Marine) 18 Mcg Cap.w.dev 2 Inh IH BID Breo Ellipta 200-25 Mcg INH (Fluticasone/Vilanterol) 1 Each Blst.w.dev 1 Puff IH BID Docusate Sodium 100 Mg Capsule 1 Cap PO DAILY 30 Days Ajovy Autoinjector (Fremanezumab-Vfrm) 225 Mg/1.5 Ml Auto.injct 225 Mg SQ QMONTH Tizanidine Hcl 2 Mg Capsule 2 Mg JT Q8HRS PRN Gabapentin 600 Mg Tablet 300 Mg JT TID Midodrine Hcl 5 Mg Tablet 5 Mg SL BID Milk Of Magnesia (Magnesium Hydroxide) 400 Mg/5 Ml Oral.susp 400 Mg JT PRN DAILY MDD 400mg Mirtazapine 30 Mg Tab.rapdis 45 Mg PO QHS 30 Days Olopatadine HCl 5 Ml Drops 0.1 % OP PRN DAILY PRN Vitamin D3 (Cholecalciferol (Vitamin D3)) 4,000 Unit Capsule 2,000 Unit JT HS Xyzal (Levocetirizine Dihydrochloride) 5 Mg Tablet 10 Mg GT BID Proair Hfa (Albuterol Sulfate) 8.5 Gm Hfa.aer.ad 2 Puff IH PRN Q4-6HRS PRN 21 Days Ipratropium Marine 30 Ml [place] 1 [place] NS BID Duoneb 0.5-3(2.5) Mg/3 Ml (Albuterol/Ipratropium) 3 Ml Ampul.neb 3 Ml NEB PRN QID PRN Montelukast Sodium Tablet (Montelukast Sodium) 10 Mg Tablet 10 Mg PO DAILY PRN Multi Vitamin Daily (Multivitamin) 1 Each Tablet 1 Each GT DAILY ROS: Review of Systems Review of System REVIEW OF SYSTEMS: GENERAL: Denies weakness SKIN: No bruising, hair changes or rashes. EYES: No blurred, double or loss of vision. NOSE AND THROAT: No history of nosebleeds, hoarseness or sore throat. HEART: No history of palpitations, chest pain or shortness of breath on exertion. LUNGS: Denies cough, hemoptysis, wheezing or shortness of breath. GASTROINTESTINAL: Denies changes in appetite, nausea, vomiting, diarrhea or constipation. GENITOURINARY: No history of frequency, urgency, hesitancy or nocturia. NEUROLOGIC: Denies history of numbness, tingling, or tremor. PSYCHIATRIC: No history of panic, anxiety or depression. ENDOCRINE: No history of heat or cold intolerance, polyuria or polydipsia. EXTREMITIES: Denies joint pain, pain on walking or stiffness. Physical Exam: Vital Signs: Vital Signs Date Time Temp Pulse Resp B/P (MAP) Pulse Ox O2 Delivery O2 Flow Rate FiO2 06/17/21 08:06 Room Air 06/17/21 04:33 16 06/17/21 04:01 94 06/16/21 23:00 99.7 134 114/57 (76) 99.7 Physcial Exam: General: Well developed, well nourished, no acute distress, well appearing HEENT: Pupils equally round and reactive to light, EOMI, no discharge, normal conjunctiva Neck: Supple, no nuchal rigidity, no JVD, trachea midline, no tenderness Cardiac: RRR, no murmurs, no gallops, no rubs Chest/Lungs: CTAB, no wheeze, no rhonchi, no crackles Abdomen: soft, non-distended, no guarding, no peritoneal signs, non-tender Back: No tenderness Extremities: no edema, pulses intact, non-tender,capillary refill <3 sec bilateral upper and lower extremities chest port appears clear dry and intact. No surrounding erythema Neuro: Alert and oriented x 4, no focal deficits, normal speech Labs: Labs: Laboratory Tests Test 06/16/21 14:20 06/16/21 20:30 06/17/21 00:27 06/17/21 04:15 White Blood Count 2.6 x10^3/uL (4.0-11.0) 3.0 x10^3/uL (4.0-11.0) Red Blood Count 2.90 x10^6/uL (3.50-5.40) 2.72 x10^6/uL (3.50-5.40) Hemoglobin 7.9 g/dL (12.0-15.5) 7.3 g/dL (12.0-15.5) Hematocrit 24.1 % (36.0-47.0) 22.5 % (36.0-47.0) Mean Corpuscular Volume 83 fL (79-100) 83 fL (79-100) Mean Corpuscular Hemoglobin 27 pg (25-35) 27 pg (25-35) Mean Corpuscular Hemoglobin Concent 33 g/dL (31-37) 33 g/dL (31-37) Red Cell Distribution Width 15.4 % (11.5-14.5) 15.2 % (11.5-14.5) Platelet Count 75 x10^3/uL (140-400) 72 x10^3/uL (140-400) Neutrophils (%) (Auto) 64 % (31-73) 77 % (31-73) Lymphocytes (%) (Auto) 16 % (24-48) 7 % (24-48) Monocytes (%) (Auto) 20 % (0-9) 15 % (0-9) Eosinophils (%) (Auto) 0 % (0-3) 0 % (0-3) Basophils (%) (Auto) 0 % (0-3) 0 % (0-3) Neutrophils # (Auto) 1.6 x10^3/uL (1.8-7.7) 2.3 x10^3/uL (1.8-7.7) Lymphocytes # (Auto) 0.4 x10^3/uL (1.0-4.8) 0.2 x10^3/uL (1.0-4.8) Monocytes # (Auto) 0.5 x10^3/uL (0.0-1.1) 0.5 x10^3/uL (0.0-1.1) Eosinophils # (Auto) 0.0 x10^3/uL (0.0-0.7) 0.0 x10^3/uL (0.0-0.7) Basophils # (Auto) 0.0 x10^3/uL (0.0-0.2) 0.0 x10^3/uL (0.0-0.2) Segmented Neutrophils % 58 % (35-66) Band Neutrophils % 10 % (0-9) Lymphocytes % 23 % (24-48) Atypical Lymphocytes % (Manual) 1 % (0-0) Monocytes % 8 % (0-10) Platelet Estimate Decreased (ADEQUATE) Poikilocytosis Slight Ovalocytes Few Sodium Level 139 mmol/L (136-145) 141 mmol/L (136-145) Potassium Level 4.1 mmol/L (3.5-5.1) 3.6 mmol/L (3.5-5.1) Chloride Level 106 mmol/L (98-107) 108 mmol/L (98-107) Carbon Dioxide Level 22 mmol/L (21-32) 25 mmol/L (21-32) Anion Gap 11 (6-14) 8 (6-14) Blood Urea Nitrogen 12 mg/dL (7-20) 9 mg/dL (7-20) Creatinine 0.6 mg/dL (0.6-1.0) 0.6 mg/dL (0.6-1.0) Estimated GFR (Cockcroft-Gault) 123.9 123.9 BUN/Creatinine Ratio 20 (6-20) 15 (6-20) Glucose Level 107 mg/dL (70-99) 115 mg/dL (70-99) Lactic Acid Level 0.8 mmol/L (0.4-2.0) Calcium Level 7.8 mg/dL (8.5-10.1) 7.4 mg/dL (8.5-10.1) Total Bilirubin 0.5 mg/dL (0.2-1.0) 0.6 mg/dL (0.2-1.0) Aspartate Amino Transf (AST/SGOT) 37 U/L (15-37) 26 U/L (15-37) Alanine Aminotransferase (ALT/SGPT) 66 U/L (14-59) 55 U/L (14-59) Alkaline Phosphatase 141 U/L (46-116) 134 U/L (46-116) Total Protein 6.7 g/dL (6.4-8.2) 6.2 g/dL (6.4-8.2) Albumin 3.1 g/dL (3.4-5.0) 2.8 g/dL (3.4-5.0) Albumin/Globulin Ratio 0.9 (1.0-1.7) 0.8 (1.0-1.7) Lipase 24 U/L (73-393) Procalcitonin 2.86 ng/mL (0.00-0.10) Influenza Type A Antigen Negative (NEGATIVE) Influenza Type B Antigen Negative (NEGATIVE) SARS-CoV-2 Antigen (Rapid) Negative (NEGATIVE) Urine Collection Type Unknown Urine Color Rashmi Urine Clarity Clear Urine pH 5.5 (<5.0-8.0) Urine Specific Robertson >=1.030 (1.000-1.030) Urine Protein Negative mg/dL (NEG-TRACE) Urine Glucose (UA) Negative mg/dL (NEG) Urine Ketones (Stick) 15 mg/dL (NEG) Urine Blood Trace (NEG) Urine Nitrite Negative (NEG) Urine Bilirubin Negative (NEG) Urine Urobilinogen Dipstick 1.0 mg/dL (0.2 mg/dL) Urine Leukocyte Esterase Negative (NEG) Urine RBC 1-2 /HPF (0-2) Urine WBC 1-4 /HPF (0-4) Urine Squamous Epithelial Cells Mod /LPF Urine Amorphous Sediment Present /HPF Urine Bacteria Moderate /HPF (0-FEW) Urine Mucus Mod /LPF Urine Opiates Screen Pos (NEG) Urine Methadone Screen Neg (NEG) Urine Barbiturates Neg (NEG) Urine Phencyclidine Screen Neg (NEG) Urine Amphetamine/Methamphetamine Neg (NEG) Urine Benzodiazepines Screen Neg (NEG) Urine Cocaine Screen Neg (NEG) Urine Cannabinoids Screen Neg (NEG) Urine Ethyl Alcohol Neg (NEG) Laboratory Tests Test 06/16/21 14:20 06/16/21 20:30 06/17/21 00:27 06/17/21 04:15 White Blood Count 2.6 x10^3/uL (4.0-11.0) 3.0 x10^3/uL (4.0-11.0) Red Blood Count 2.90 x10^6/uL (3.50-5.40) 2.72 x10^6/uL (3.50-5.40) Hemoglobin 7.9 g/dL (12.0-15.5) 7.3 g/dL (12.0-15.5) Hematocrit 24.1 % (36.0-47.0) 22.5 % (36.0-47.0) Mean Corpuscular Volume 83 fL (79-100) 83 fL (79-100) Mean Corpuscular Hemoglobin 27 pg (25-35) 27 pg (25-35) Mean Corpuscular Hemoglobin Concent 33 g/dL (31-37) 33 g/dL (31-37) Red Cell Distribution Width 15.4 % (11.5-14.5) 15.2 % (11.5-14.5) Platelet Count 75 x10^3/uL (140-400) 72 x10^3/uL (140-400) Neutrophils (%) (Auto) 64 % (31-73) 77 % (31-73) Lymphocytes (%) (Auto) 16 % (24-48) 7 % (24-48) Monocytes (%) (Auto) 20 % (0-9) 15 % (0-9) Eosinophils (%) (Auto) 0 % (0-3) 0 % (0-3) Basophils (%) (Auto) 0 % (0-3) 0 % (0-3) Neutrophils # (Auto) 1.6 x10^3/uL (1.8-7.7) 2.3 x10^3/uL (1.8-7.7) Lymphocytes # (Auto) 0.4 x10^3/uL (1.0-4.8) 0.2 x10^3/uL (1.0-4.8) Monocytes # (Auto) 0.5 x10^3/uL (0.0-1.1) 0.5 x10^3/uL (0.0-1.1) Eosinophils # (Auto) 0.0 x10^3/uL (0.0-0.7) 0.0 x10^3/uL (0.0-0.7) Basophils # (Auto) 0.0 x10^3/uL (0.0-0.2) 0.0 x10^3/uL (0.0-0.2) Segmented Neutrophils % 58 % (35-66) Band Neutrophils % 10 % (0-9) Lymphocytes % 23 % (24-48) Atypical Lymphocytes % (Manual) 1 % (0-0) Monocytes % 8 % (0-10) Platelet Estimate Decreased (ADEQUATE) Poikilocytosis Slight Ovalocytes Few Sodium Level 139 mmol/L (136-145) 141 mmol/L (136-145) Potassium Level 4.1 mmol/L (3.5-5.1) 3.6 mmol/L (3.5-5.1) Chloride Level 106 mmol/L (98-107) 108 mmol/L (98-107) Carbon Dioxide Level 22 mmol/L (21-32) 25 mmol/L (21-32) Anion Gap 11 (6-14) 8 (6-14) Blood Urea Nitrogen 12 mg/dL (7-20) 9 mg/dL (7-20) Creatinine 0.6 mg/dL (0.6-1.0) 0.6 mg/dL (0.6-1.0) Estimated GFR (Cockcroft-Gault) 123.9 123.9 BUN/Creatinine Ratio 20 (6-20) 15 (6-20) Glucose Level 107 mg/dL (70-99) 115 mg/dL (70-99) Lactic Acid Level 0.8 mmol/L (0.4-2.0) Calcium Level 7.8 mg/dL (8.5-10.1) 7.4 mg/dL (8.5-10.1) Total Bilirubin 0.5 mg/dL (0.2-1.0) 0.6 mg/dL (0.2-1.0) Aspartate Amino Transf (AST/SGOT) 37 U/L (15-37) 26 U/L (15-37) Alanine Aminotransferase (ALT/SGPT) 66 U/L (14-59) 55 U/L (14-59) Alkaline Phosphatase 141 U/L (46-116) 134 U/L (46-116) Total Protein 6.7 g/dL (6.4-8.2) 6.2 g/dL (6.4-8.2) Albumin 3.1 g/dL (3.4-5.0) 2.8 g/dL (3.4-5.0) Albumin/Globulin Ratio 0.9 (1.0-1.7) 0.8 (1.0-1.7) Lipase 24 U/L (73-393) Procalcitonin 2.86 ng/mL (0.00-0.10) Influenza Type A Antigen Negative (NEGATIVE) Influenza Type B Antigen Negative (NEGATIVE) SARS-CoV-2 Antigen (Rapid) Negative (NEGATIVE) Urine Collection Type Unknown Urine Color Rashmi Urine Clarity Clear Urine pH 5.5 (<5.0-8.0) Urine Specific Robertson >=1.030 (1.000-1.030) Urine Protein Negative mg/dL (NEG-TRACE) Urine Glucose (UA) Negative mg/dL (NEG) Urine Ketones (Stick) 15 mg/dL (NEG) Urine Blood Trace (NEG) Urine Nitrite Negative (NEG) Urine Bilirubin Negative (NEG) Urine Urobilinogen Dipstick 1.0 mg/dL (0.2 mg/dL) Urine Leukocyte Esterase Negative (NEG) Urine RBC 1-2 /HPF (0-2) Urine WBC 1-4 /HPF (0-4) Urine Squamous Epithelial Cells Mod /LPF Urine Amorphous Sediment Present /HPF Urine Bacteria Moderate /HPF (0-FEW) Urine Mucus Mod /LPF Urine Opiates Screen Pos (NEG) Urine Methadone Screen Neg (NEG) Urine Barbiturates Neg (NEG) Urine Phencyclidine Screen Neg (NEG) Urine Amphetamine/Methamphetamine Neg (NEG) Urine Benzodiazepines Screen Neg (NEG) Urine Cocaine Screen Neg (NEG) Urine Cannabinoids Screen Neg (NEG) Urine Ethyl Alcohol Neg (NEG) Images: Images PROCEDURE: CT ABD PELV W/ IV CONTRST ONLY CT ABDOMEN+PELVIS W History: Abdominal pain, vomiting, multiple GI surgeries. Comparison: CT abdomen pelvis 05/13/2021 Technique: CT of the abdomen and pelvis with intravenous contrast. Findings: Mild dependent changes. No pleural effusion or pneumothorax. Partially visualized catheter tip at the high right atrium. The liver, pancreas, adrenals and kidneys are unremarkable. No nephrolithiasis or hydronephrosis. The bladder, uterus and adnexa are within normal limits. Status post cholecystectomy. Stable mildly enlarged spleen measuring approximately 14 cm AP. Percutaneous gastrostomy tube is appropriately positioned. Left-sided percutaneous long tube jejunostomy redemonstrated in appropriate position. Unchanged right-sided percutaneous jejunostomy. Now small bowel distention to suggest obstruction. The colon is within normal limits without wall thickening. Mild stool burden at the rectum. Vasculature are unremarkable. No intra-abdominal free air or significant free fluid. No abscess. Soft tissues and osseous structures are unremarkable. Impression: 1. Expected positioning of percutaneous gastrostomy and 2 jejunostomy tubes. No evidence of complication. 2. Mild splenomegaly, measuring 14 cm AP. 3. No acute inflammatory process in the abdomen and pelvis. PROCEDURE: ACUTE ABDOMEN SERIES Study: XR ABDOMEN COMP ACUTE Indication: Fever. Abdominal pain. Comparison: Chest radiograph 06/14/2021; CT abdomen/pelvis 05/11/2022 Findings: Accessed right chest wall Port-A-Cath terminating within the SVC. Unchanged cardiomediastinal silhouette and kym. Low lung volumes with suspected basilar atelectasis more noticeable on the right. No lobar consolidation. Similar mild hazy attenuation at the costophrenic angles. Large effusion. No pneumothorax. Jejunostomy tube with the tip projecting at the right lower quadrant. There appears to be a gastrostomy tube is well. The bowel gas pattern is nonobstructive. Mild volume well-formed stool within the rectum. Cholecystectomy clips. No radiographic evidence for pneumoperitoneum. Impression: 1. No newly seen radiographic abnormality of the chest 06/14/2021. 2. The bowel gas pattern is nonobstructive. 3. Jejunostomy tube with the tip projecting at the right lower quadrant. Gastrostomy tube present as well. 4. Mild volume well-formed stool within the rectum. Assessment/Plan Assessment/Plan Gram-negative bacteremia Acute on chronic pain syndrome Opioid dependence Pancytopenia History of idiopathic gastroparesis History of multiple abdominal surgery requiring 2 J-tube's and a G-tube Left chest port for antibiotic infusion and TPN Admit to hospitalist service for further management ID consult for gram-negative bacteremia Hematology consult for pancytopenia Surgery consulted for GI and J-tube management GI consulted for gastroparesis Continue empiric IV antibiotics for now Continue TPN Nutrition consult Lovenox for DVT prophylaxis Protonix GI prophylaxis ADA diet CODE STATUS full code Discussed with RN and SW Disposition inpatient management as above DPOA: Mother Would consider palliative care for the patient as an option to control her chronic pain issues. Pt reports that she is tired of fighting all this and is interested in pursuing palliative care. She is receptive to that and I will try to see which companies are able to allow tube feedings at least in addition to receiving comfort measures. Justifications for Admission Other Justification Fever DESIREE MCCALL MD Jun 17, 2021 08:25
[2021-06-17] MEDS: IV NORMAL SALINE 1000ML BAG 1,000 ML IV SCH ×2 (08:56→19:31)
--- NOTE | 2021-06-17 09:43 | PDOC2 ---
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 Multiple surgeries, chronic pain issues, TPN management. Has been feeling worse. Recent pneumonia diagnosis. Reports vomiting Blood cultures +--multiple previous line infections that have been treated Seen recently in clinic for TPN, discussion of decreasing TPN due to increasing weight gain Past Medical History Cardiovascular: HTN Pulmonary: No pertinent hx CENTRAL NERVOUS SYSTEM: Other GI: GERD, Other Heme/Onc: No pertinent hx Psych: Other Musculoskeletal: Other Rheumatologic: No pertinent hx Infectious disease: Other Renal/: UTI Endocrine: No pertinent hx Past Surgical History Past Surgical History: Appendectomy, Other Family History Family History: Hypertension, Family History Unknown Social History ALCOHOL: none Drugs: None Lives: with Family Current Problem List Problem List Problems Medical Problems: (1) Intractable abdominal pain Status: Acute (2) Intractable nausea and vomiting Status: Acute Current Medications Current Medications Current Medications Sodium Chloride 1,000 ml @ 1,000 mls/hr 1X ONCE IV Last administered on 06/16/21at 14:00; Start 06/16/21 at 14:00; Stop 06/16/21 at 14:59; Status DC Ondansetron HCl (Zofran) 4 mg 1X ONCE IVP Last administered on 06/16/21at 14:18; Start 06/16/21 at 14:00; Stop 06/16/21 at 14:01; Status DC Hydromorphone HCl (Dilaudid) 1 mg 1X ONCE IVP Last administered on 06/16/21at 14:18; Start 06/16/21 at 14:00; Stop 06/16/21 at 14:01; Status DC Diphenhydramine HCl (Benadryl) 25 mg 1X ONCE IVP Last administered on 06/16/21at 14:19; Start 06/16/21 at 14:00; Stop 06/16/21 at 14:01; Status DC Pantoprazole Sodium (PROTONIX VIAL for IV PUSH) 40 mg 1X ONCE IVP Last administered on 06/16/21at 14:19; Start 06/16/21 at 14:00; Stop 06/16/21 at 14:01; Status DC Hydromorphone HCl (Dilaudid) 1 mg 1X ONCE IVP Last administered on 06/16/21at 16:30; Start 06/16/21 at 16:30; Stop 06/16/21 at 16:31; Status DC Iohexol (Omnipaque 300 Mg/ml) 75 ml 1X ONCE IV Last administered on 06/16/21at 18:15; Start 06/16/21 at 18:15; Stop 06/16/21 at 18:16; Status DC Info (CONTRAST GIVEN -- Rx MONITORING) 1 each PRN DAILY PRN MC SEE COMMENTS; Start 06/16/21 at 18:15; Stop 06/18/21 at 18:14 Ondansetron HCl (Zofran) 4 mg 1X ONCE IVP Last administered on 06/16/21at 18:40; Start 06/16/21 at 18:45; Stop 06/16/21 at 18:46; Status DC Ondansetron HCl (Zofran) 4 mg STK-MED ONCE .ROUTE ; Start 06/16/21 at 18:35; S top 06/16/21 at 18:36; Status DC Hydromorphone HCl (Dilaudid) 1 mg 1X ONCE IVP Last administered on 06/16/21at 19:41; Start 06/16/21 at 19:30; Stop 06/16/21 at 19:31; Status DC Metoclopramide HCl (Reglan Vial) 10 mg 1X ONCE IVP Last administered on 05/24 10/11at 19:40; Start 06/16/21 at 19:30; Stop 06/16/21 at 19:31; Status DC Ondansetron HCl (Zofran) 4 mg PRN Q8HRS PRN IVP NAUSEA/VOMITING Last administered on 06/17/21at 07:34; Start 06/16/21 at 20:00; Stop 06/17/21 at 19:59 Sodium Chloride 1,000 ml @ 75 mls/hr [id number] IV Last administered on 06/17/21at 08:56; Start 06/16/21 at 20:00 Metoclopramide HCl (Reglan Vial) 10 mg PRN Q6HRS PRN IVP NAUSEA/VOMITING; Start 06/16/21 at 20:00 Hydromorphone HCl (Dilaudid) 1 mg PRN Q3HRS PRN IVP PAIN Last administered on 06/17/21at 07:34; Start 06/16/21 at 20:00 Lorazepam (Ativan Inj) 1 mg 1X STAT IVP Last administered on 06/16/21at 20:32; Start 06/16/21 at 19:47; Stop 06/16/21 at 19:57; Status DC Diphenhydramine HCl (Benadryl) 25 mg PRN Q6HRS PRN IVP ITCHING Last adm inistered on 06/17/21at 04:01; Start 06/16/21 at 20:15 Piperacillin Sod/ Tazobactam Sod (Zosyn Per Pharmacy) 1 each PRN DAILY PRN MC SEE COMMENTS; Start 06/17/21 at 08:00; Status Cancel Vancomycin HCl (Vanco Per Pharmacy) 1 each PRN DAILY PRN MC SEE COMMENTS; Start 06/17/21 at 08:00 Vancomycin HCl 2 gm/Sodium Chloride 500 ml @ 250 mls/hr 1X ONCE IV Last administered on 06/17/21at 08:56; Start 06/17/21 at 08:15; Stop 06/17/21 at 10:14 Levofloxacin (Levaquin) 500 mg DAILY06 PO ; Start 06/17/21 at 09:00; Status Cancel Levofloxacin/ Dextrose 100 ml @ 100 mls/hr Q24H IV ; Start 06/17/21 at 09:00 Active Scripts Active Azithromycin Oral Susp (Azithromycin) 200 Mg/5 Ml Susp.recon 2.25 Ml PO DAILY 500ml PO x day 1 250ml PO x day 2-5 Disp QS No refills Terbinafine Hcl 30 Gm Cream..g. 1 Judie TP BID Apply cream twice daily to affected areas for 2 weeks. Hydrocodone-Apap 7.5-325/15 Soln (Hydrocodone Bit/Acetaminophen) 15 Ml Solution 15 Ml PO PRN Q6HRS PRN Transderm-Scop (Scopolamine) 1 Each Patch.td72 1 Patch TP Q3DAYS [Tpn Per Pharmacy] 1 EACH Each 1 Each MC PRN DAILY PRN 30 Days Ondansetron Hcl 4 Mg/2 Ml Vial (Ondansetron Hcl/Pf) 4 Mg/2 Ml Vial 4 Mg IVP PRN Q6HRS PRN 30 Days Bisacodyl 10 Mg Supp.rect 10 Mg AR PRN DAILY PRN 30 Days Reported Valproic Acid (Valproate Sodium) 500 Mg/10 Ml Solution 500 Mg JT BID Metoprolol Tartrate 75 Mg Tablet 25 Mg PO BID Levbid (Hyoscyamine Sulfate) 0.375 Mg Tab.er.12h 0.375 Mg JT BID Famotidine 40 Mg Tablet 40 Mg IV DAILY Spiriva (Tiotropium [place]) 18 Mcg Cap.w.dev 2 Inh IH BID Breo Ellipta 200-25 Mcg INH (Fluticasone/Vilanterol) 1 Each Blst.w.dev 1 Puff IH BID Docusate Sodium 100 Mg Capsule 1 Cap PO DAILY 30 Days Ajovy Autoinjector (Fremanezumab-Vfrm) 225 Mg/1.5 Ml Auto.injct 225 Mg SQ QMONTH Tizanidine Hcl 2 Mg Capsule 2 Mg JT Q8HRS PRN Gabapentin 600 Mg Tablet 300 Mg JT TID Midodrine Hcl 5 Mg Tablet 5 Mg SL BID Milk Of Magnesia (Magnesium Hydroxide) 400 Mg/5 Ml Oral.susp 400 Mg JT PRN DAILY MDD 400mg Mirtazapine 30 Mg Tab.rapdis 45 Mg PO QHS 30 Days Olopatadine HCl 5 Ml Drops 0.1 % OP PRN DAILY PRN Vitamin D3 (Cholecalciferol (Vitamin D3)) 4,000 Unit Capsule 2,000 Unit JT HS Xyzal (Levocetirizine Dihydrochloride) 5 Mg Tablet 10 Mg GT BID Proair Hfa (Albuterol Sulfate) 8.5 Gm Hfa.aer.ad 2 Puff IH PRN Q4-6HRS PRN 21 Days Ipratropium [place] 30 Ml [place] 1 [place] NS BID Duoneb 0.5-3(2.5) Mg/3 Ml (Albuterol/Ipratropium) 3 Ml Ampul.neb 3 Ml NEB PRN QID PRN Montelukast Sodium Tablet (Montelukast Sodium) 10 Mg Tablet 10 Mg PO DAILY PRN Multi Vitamin Daily (Multivitamin) 1 Each Tablet 1 Each GT DAILY Allergies Allergies: Coded Allergies: iron (Verified Allergy, Severe, Anaphylaxis, 06/16/21) Penicillins (Verified Allergy, Intermediate, LIGHT RASH CHILD, 06/16/21) TOLERATES ZOSYN Sulfa (Sulfonamide Antibiotics) (Verified Allergy, Intermediate, 06/16/21) I S O L A T I O N *CONTACT* (Verified Allergy, Unknown, 06/16/21) mrsa ROS General: YES: Fatigue; No: Chills PSYCHOLOGICAL ROS: YES: Anxiety; No: Depression Eyes: No Blurry vision, No Double vision HEENT: No: Heacaches, Sore Throat Hematological and Lymphatic: No: Bleeding Problems, Blood Clots Respiratory: YES: Cough, Shortness of breath Cardiovascular: No Chest Pain, No Palpitations Gastrointestinal: Yes Nausea, Yes Vomiting, Yes Abdominal Pain Genitourinary: No Dysuria, No Retention Musculoskeletal: No Joint Pain, No Muscle Pain Neurological: No Headaches, No Numbness/Tingling Skin: No Pruritus, No Rash Physical Exam General: Cooperative, Other (in pain on exam) HEENT: Atraumatic, PERRLA Lungs: Clear to auscultation, Normal air movement Heart: Regular rate, Normal S1, Normal S2 Abdomen: Soft, Other (tubes in place, ttp ) Extremities: No clubbing, No cyanosis Skin: No rashes, No breakdown Neuro: Normal speech, Sensation intact Psych/Mental Status: Mental status NL, Mood NL MUSCULOSKELETAL: No deformity, No swelling Vitals VITALS Vital Signs Date Time Temp Pulse Resp B/P (MAP) Pulse Ox O2 Delivery O2 Flow Rate FiO2 06/17/21 08:06 Room Air 06/17/21 07:00 102.1 127 20 130/66 (87) 93 102.1 Labs Labs Laboratory Tests Test 06/16/21 14:20 06/16/21 20:30 06/17/21 00:27 06/17/21 04:15 White Blood Count 2.6 x10^3/uL (4.0-11.0) 3.0 x10^3/uL (4.0-11.0) Red Blood Count 2.90 x10^6/uL (3.50-5.40) 2.72 x10^6/uL (3.50-5.40) Hemoglobin 7.9 g/dL (12.0-15.5) 7.3 g/dL (12.0-15.5) Hematocrit 24.1 % (36.0-47.0) 22.5 % (36.0-47.0) Mean Corpuscular Volume 83 fL (79-100) 83 fL (79-100) Mean Corpuscular Hemoglobin 27 pg (25-35) 27 pg (25-35) Mean Corpuscular Hemoglobin Concent 33 g/dL (31-37) 33 g/dL (31-37) Red Cell Distribution Width 15.4 % (11.5-14.5) 15.2 % (11.5-14.5) Platelet Count 75 x10^3/uL (140-400) 72 x10^3/uL (140-400) Neutrophils (%) (Auto) 64 % (31-73) 77 % (31-73) Lymphocytes (%) (Auto) 16 % (24-48) 7 % (24-48) Monocytes (%) (Auto) 20 % (0-9) 15 % (0-9) Eosinophils (%) (Auto) 0 % (0-3) 0 % (0-3) Basophils (%) (Auto) 0 % (0-3) 0 % (0-3) Neutrophils # (Auto) 1.6 x10^3/uL (1.8-7.7) 2.3 x10^3/uL (1.8-7.7) Lymphocytes # (Auto) 0.4 x10^3/uL (1.0-4.8) 0.2 x10^3/uL (1.0-4.8) Monocytes # (Auto) 0.5 x10^3/uL (0.0-1.1) 0.5 x10^3/uL (0.0-1.1) Eosinophils # (Auto) 0.0 x10^3/uL (0.0-0.7) 0.0 x10^3/uL (0.0-0.7) Basophils # (Auto) 0.0 x10^3/uL (0.0-0.2) 0.0 x10^3/uL (0.0-0.2) Segmented Neutrophils % 58 % (35-66) Band Neutrophils % 10 % (0-9) Lymphocytes % 23 % (24-48) Atypical Lymphocytes % (Manual) 1 % (0-0) Monocytes % 8 % (0-10) Platelet Estimate Decreased (ADEQUATE) Poikilocytosis Slight Ovalocytes Few Sodium Level 139 mmol/L (136-145) 141 mmol/L (136-145) Potassium Level 4.1 mmol/L (3.5-5.1) 3.6 mmol/L (3.5-5.1) Chloride Level 106 mmol/L (98-107) 108 mmol/L (98-107) Carbon Dioxide Level 22 mmol/L (21-32) 25 mmol/L (21-32) Anion Gap 11 (6-14) 8 (6-14) Blood Urea Nitrogen 12 mg/dL (7-20) 9 mg/dL (7-20) Creatinine 0.6 mg/dL (0.6-1.0) 0.6 mg/dL (0.6-1.0) Estimated GFR (Cockcroft-Gault) 123.9 123.9 BUN/Creatinine Ratio 20 (6-20) 15 (6-20) Glucose Level 107 mg/dL (70-99) 115 mg/dL (70-99) Lactic Acid Level 0.8 mmol/L (0.4-2.0) Calcium Level 7.8 mg/dL (8.5-10.1) 7.4 mg/dL (8.5-10.1) Total Bilirubin 0.5 mg/dL (0.2-1.0) 0.6 mg/dL (0.2-1.0) Aspartate Amino Transf (AST/SGOT) 37 U/L (15-37) 26 U/L (15-37) Alanine Aminotransferase (ALT/SGPT) 66 U/L (14-59) 55 U/L (14-59) Alkaline Phosphatase 141 U/L (46-116) 134 U/L (46-116) Total Protein 6.7 g/dL (6.4-8.2) 6.2 g/dL (6.4-8.2) Albumin 3.1 g/dL (3.4-5.0) 2.8 g/dL (3.4-5.0) Albumin/Globulin Ratio 0.9 (1.0-1.7) 0.8 (1.0-1.7) Lipase 24 U/L (73-393) Procalcitonin 2.86 ng/mL (0.00-0.10) Influenza Type A Antigen Negative (NEGATIVE) Influenza Type B Antigen Negative (NEGATIVE) SARS-CoV-2 Antigen (Rapid) Negative (NEGATIVE) Urine Collection Type Unknown Urine Color Rashmi Urine Clarity Clear Urine pH 5.5 (<5.0-8.0) Urine Specific [place] >=1.030 (1.000-1.030) Urine Protein Negative mg/dL (NEG-TRACE) Urine Glucose (UA) Negative mg/dL (NEG) Urine Ketones (Stick) 15 mg/dL (NEG) Urine Blood Trace (NEG) Urine Nitrite Negative (NEG) Urine Bilirubin Negative (NEG) Urine Urobilinogen Dipstick 1.0 mg/dL (0.2 mg/dL) Urine Leukocyte Esterase Negative (NEG) Urine RBC 1-2 /HPF (0-2) Urine WBC 1-4 /HPF (0-4) Urine Squamous Epithelial Cells Mod /LPF Urine Amorphous Sediment Present /HPF Urine Bacteria Moderate /HPF (0-FEW) Urine Mucus Mod /LPF Urine Opiates Screen Pos (NEG) Urine Methadone Screen Neg (NEG) Urine Barbiturates Neg (NEG) Urine Phencyclidine Screen Neg (NEG) Urine Amphetamine/Methamphetamine Neg (NEG) Urine Benzodiazepines Screen Neg (NEG) Urine Cocaine Screen Neg (NEG) Urine Cannabinoids Screen Neg (NEG) Urine Ethyl Alcohol Neg (NEG) Laboratory Tests Test 06/16/21 14:20 06/16/21 20:30 06/17/21 00:27 06/17/21 04:15 White Blood Count 2.6 x10^3/uL (4.0-11.0) 3.0 x10^3/uL (4.0-11.0) Red Blood Count 2.90 x10^6/uL (3.50-5.40) 2.72 x10^6/uL (3.50-5.40) Hemoglobin 7.9 g/dL (12.0-15.5) 7.3 g/dL (12.0-15.5) Hematocrit 24.1 % (36.0-47.0) 22.5 % (36.0-47.0) Mean Corpuscular Volume 83 fL (79-100) 83 fL (79-100) Mean Corpuscular Hemoglobin 27 pg (25-35) 27 pg (25-35) Mean Corpuscular Hemoglobin Concent 33 g/dL (31-37) 33 g/dL (31-37) Red Cell Distribution Width 15.4 % (11.5-14.5) 15.2 % (11.5-14.5) Platelet Count 75 x10^3/uL (140-400) 72 x10^3/uL (140-400) Neutrophils (%) (Auto) 64 % (31-73) 77 % (31-73) Lymphocytes (%) (Auto) 16 % (24-48) 7 % (24-48) Monocytes (%) (Auto) 20 % (0-9) 15 % (0-9) Eosinophils (%) (Auto) 0 % (0-3) 0 % (0-3) Basophils (%) (Auto) 0 % (0-3) 0 % (0-3) Neutrophils # (Auto) 1.6 x10^3/uL (1.8-7.7) 2.3 x10^3/uL (1.8-7.7) Lymphocytes # (Auto) 0.4 x10^3/uL (1.0-4.8) 0.2 x10^3/uL (1.0-4.8) Monocytes # (Auto) 0.5 x10^3/uL (0.0-1.1) 0.5 x10^3/uL (0.0-1.1) Eosinophils # (Auto) 0.0 x10^3/uL (0.0-0.7) 0.0 x10^3/uL (0.0-0.7) Basophils # (Auto) 0.0 x10^3/uL (0.0-0.2) 0.0 x10^3/uL (0.0-0.2) Segmented Neutrophils % 58 % (35-66) Band Neutrophils % 10 % (0-9) Lymphocytes % 23 % (24-48) Atypical Lymphocytes % (Manual) 1 % (0-0) Monocytes % 8 % (0-10) Platelet Estimate Decreased (ADEQUATE) Poikilocytosis Slight Ovalocytes Few Sodium Level 139 mmol/L (136-145) 141 mmol/L (136-145) Potassium Level 4.1 mmol/L (3.5-5.1) 3.6 mmol/L (3.5-5.1) Chloride Level 106 mmol/L (98-107) 108 mmol/L (98-107) Carbon Dioxide Level 22 mmol/L (21-32) 25 mmol/L (21-32) Anion Gap 11 (6-14) 8 (6-14) Blood Urea Nitrogen 12 mg/dL (7-20) 9 mg/dL (7-20) Creatinine 0.6 mg/dL (0.6-1.0) 0.6 mg/dL (0.6-1.0) Estimated GFR (Cockcroft-Gault) 123.9 123.9 BUN/Creatinine Ratio 20 (6-20) 15 (6-20) Glucose Level 107 mg/dL (70-99) 115 mg/dL (70-99) Lactic Acid Level 0.8 mmol/L (0.4-2.0) Calcium Level 7.8 mg/dL (8.5-10.1) 7.4 mg/dL (8.5-10.1) Total Bilirubin 0.5 mg/dL (0.2-1.0) 0.6 mg/dL (0.2-1.0) Aspartate Amino Transf (AST/SGOT) 37 U/L (15-37) 26 U/L (15-37) Alanine Aminotransferase (ALT/SGPT) 66 U/L (14-59) 55 U/L (14-59) Alkaline Phosphatase 141 U/L (46-116) 134 U/L (46-116) Total Protein 6.7 g/dL (6.4-8.2) 6.2 g/dL (6.4-8.2) Albumin 3.1 g/dL (3.4-5.0) 2.8 g/dL (3.4-5.0) Albumin/Globulin Ratio 0.9 (1.0-1.7) 0.8 (1.0-1.7) Lipase 24 U/L (73-393) Procalcitonin 2.86 ng/mL (0.00-0.10) Influenza Type A Antigen Negative (NEGATIVE) Influenza Type B Antigen Negative (NEGATIVE) SARS-CoV-2 Antigen (Rapid) Negative (NEGATIVE) Urine Collection Type Unknown Urine Color Rashmi Urine Clarity Clear Urine pH 5.5 (<5.0-8.0) Urine Specific [place] >=1.030 (1.000-1.030) Urine Protein Negative mg/dL (NEG-TRACE) Urine Glucose (UA) Negative mg/dL (NEG) Urine Ketones (Stick) 15 mg/dL (NEG) Urine Blood Trace (NEG) Urine Nitrite Negative (NEG) Urine Bilirubin Negative (NEG) Urine Urobilinogen Dipstick 1.0 mg/dL (0.2 mg/dL) Urine Leukocyte Esterase Negative (NEG) Urine RBC 1-2 /HPF (0-2) Urine WBC 1-4 /HPF (0-4) Urine Squamous Epithelial Cells Mod /LPF Urine Amorphous Sediment Present /HPF Urine Bacteria Moderate /HPF (0-FEW) Urine Mucus Mod /LPF Urine Opiates Screen Pos (NEG) Urine Methadone Screen Neg (NEG) Urine Barbiturates Neg (NEG) Urine Phencyclidine Screen Neg (NEG) Urine Amphetamine/Methamphetamine Neg (NEG) Urine Benzodiazepines Screen Neg (NEG) Urine Cocaine Screen Neg (NEG) Urine Cannabinoids Screen Neg (NEG) Urine Ethyl Alcohol Neg (NEG) Assessment/Plan Assessment/Plan + blood cultures, will ask ID to eval --hx of line infections, chronic issues with multiple previous lines, TPN will ask busperson to eval--increasing weight--decrease, wean tpn g tube to LIS for n/v chart, consult 30 mins TORIE MILLER MD 06/17/21 1333: CONSULT Assessment/Plan Assessment/Plan Pt seen and examined. Agree with Ms. Valle's note Pt with c/o diffuse myalgias, N/V abd soft, tubes with bilious drainage, excoriation of LUQ J-tube site w/u per ID Pt reports that she is tired of fighting all this and is interested in pursuing palliative care. Will await ID evaluation and initial treatment, but then consider palliative care evaluation. She may benefit from line removal and going off TPN. Thanks for consult! LOIS VALLECARROLL Beauchamp APRN Jun 17, 2021 09:43 TORIE MILLER MD Jun 17, 2021 13:33
--- NOTE | 2021-06-17 10:53 | PDOC2 ---
GI CONSULT Date of Service: DATE: 06/17/21 TIME: 10:34 Reason For Consult: intractable n/v, abd pain, gastroparesis HPI: HPI: 21 y/o female who we've seen in the past. To ER yesterday and admitted. C/o n/v and increased abdominal pain x 2 weeks. Currently moaning, crying, retching - I attempted exam and she moaned louder and said she needs ice chips first. Complicated GI and surgical history w/ idiopathic gastroparesis. Many interventions. Currently w/ G tube and two J tubes (one w/ past leak). Intolerant to tube feeds in past (pain, vomiting). Prokinetics ineffective/not tolerated. S/p pyloroplasty. Many past EGDs. Treated for H. pylori x 2. H/o GERD. Colonoscopy 2018 with small adenomas. Chronic constipation. S/p cholecystectomy. H/o elevated LFTs thought to be related to TPN. Reviewed other notes - discussion of decreasing due to weight gain. No PUD, or pancreatic issues. marginally enlarged spleen on CT. PMH: PMH: HTN, migraines, pneumonia, chronic pain, UTI, bacteremia, fungemia, COVID tonsillectomy, appendectomy FH: Family History: CVA, DM, Hypertension Social History: Smoke: No ALCOHOL: none Drugs: None ROS: Difficult to obtain - pain, vomiting, recent pneumonia. Vitals: Vitals: Vital Signs Date Time Temp Pulse Resp B/P (MAP) Pulse Ox O2 Delivery O2 Flow Rate FiO2 06/17/21 08:06 Room Air 06/17/21 07:00 102.1 127 20 130/66 (87) 93 102.1 Labs: Labs: Laboratory Tests Test 06/16/21 14:20 06/16/21 20:30 06/17/21 00:27 06/17/21 04:15 White Blood Count 2.6 x10^3/uL (4.0-11.0) 3.0 x10^3/uL (4.0-11.0) Red Blood Count 2.90 x10^6/uL (3.50-5.40) 2.72 x10^6/uL (3.50-5.40) Hemoglobin 7.9 g/dL (12.0-15.5) 7.3 g/dL (12.0-15.5) Hematocrit 24.1 % (36.0-47.0) 22.5 % (36.0-47.0) Mean Corpuscular Volume 83 fL (79-100) 83 fL (79-100) Mean Corpuscular Hemoglobin 27 pg (25-35) 27 pg (25-35) Mean Corpuscular Hemoglobin Concent 33 g/dL (31-37) 33 g/dL (31-37) Red Cell Distribution Width 15.4 % (11.5-14.5) 15.2 % (11.5-14.5) Platelet Count 75 x10^3/uL (140-400) 72 x10^3/uL (140-400) Neutrophils (%) (Auto) 64 % (31-73) 77 % (31-73) Lymphocytes (%) (Auto) 16 % (24-48) 7 % (24-48) Monocytes (%) (Auto) 20 % (0-9) 15 % (0-9) Eosinophils (%) (Auto) 0 % (0-3) 0 % (0-3) Basophils (%) (Auto) 0 % (0-3) 0 % (0-3) Neutrophils # (Auto) 1.6 x10^3/uL (1.8-7.7) 2.3 x10^3/uL (1.8-7.7) Lymphocytes # (Auto) 0.4 x10^3/uL (1.0-4.8) 0.2 x10^3/uL (1.0-4.8) Monocytes # (Auto) 0.5 x10^3/uL (0.0-1.1) 0.5 x10^3/uL (0.0-1.1) Eosinophils # (Auto) 0.0 x10^3/uL (0.0-0.7) 0.0 x10^3/uL (0.0-0.7) Basophils # (Auto) 0.0 x10^3/uL (0.0-0.2) 0.0 x10^3/uL (0.0-0.2) Segmented Neutrophils % 58 % (35-66) Band Neutrophils % 10 % (0-9) Lymphocytes % 23 % (24-48) Atypical Lymphocytes % (Manual) 1 % (0-0) Monocytes % 8 % (0-10) Platelet Estimate Decreased (ADEQUATE) Poikilocytosis Slight Ovalocytes Few Sodium Level 139 mmol/L (136-145) 141 mmol/L (136-145) Potassium Level 4.1 mmol/L (3.5-5.1) 3.6 mmol/L (3.5-5.1) Chloride Level 106 mmol/L (98-107) 108 mmol/L (98-107) Carbon Dioxide Level 22 mmol/L (21-32) 25 mmol/L (21-32) Anion Gap 11 (6-14) 8 (6-14) Blood Urea Nitrogen 12 mg/dL (7-20) 9 mg/dL (7-20) Creatinine 0.6 mg/dL (0.6-1.0) 0.6 mg/dL (0.6-1.0) Estimated GFR (Cockcroft-Gault) 123.9 123.9 BUN/Creatinine Ratio 20 (6-20) 15 (6-20) Glucose Level 107 mg/dL (70-99) 115 mg/dL (70-99) Lactic Acid Level 0.8 mmol/L (0.4-2.0) Calcium Level 7.8 mg/dL (8.5-10.1) 7.4 mg/dL (8.5-10.1) Total Bilirubin 0.5 mg/dL (0.2-1.0) 0.6 mg/dL (0.2-1.0) Aspartate Amino Transf (AST/SGOT) 37 U/L (15-37) 26 U/L (15-37) Alanine Aminotransferase (ALT/SGPT) 66 U/L (14-59) 55 U/L (14-59) Alkaline Phosphatase 141 U/L (46-116) 134 U/L (46-116) Total Protein 6.7 g/dL (6.4-8.2) 6.2 g/dL (6.4-8.2) Albumin 3.1 g/dL (3.4-5.0) 2.8 g/dL (3.4-5.0) Albumin/Globulin Ratio 0.9 (1.0-1.7) 0.8 (1.0-1.7) Lipase 24 U/L (73-393) Procalcitonin 2.86 ng/mL (0.00-0.10) Influenza Type A Antigen Negative (NEGATIVE) Influenza Type B Antigen Negative (NEGATIVE) SARS-CoV-2 RNA (SALVADOR) Positive (Negative) SARS-CoV-2 Antigen (Rapid) Negative (NEGATIVE) Urine Collection Type Unknown Urine Color Rashmi Urine Clarity Clear Urine pH 5.5 (<5.0-8.0) Urine Specific [place] >=1.030 (1.000-1.030) Urine Protein Negative mg/dL (NEG-TRACE) Urine Glucose (UA) Negative mg/dL (NEG) Urine Ketones (Stick) 15 mg/dL (NEG) Urine Blood Trace (NEG) Urine Nitrite Negative (NEG) Urine Bilirubin Negative (NEG) Urine Urobilinogen Dipstick 1.0 mg/dL (0.2 mg/dL) Urine Leukocyte Esterase Negative (NEG) Urine RBC 1-2 /HPF (0-2) Urine WBC 1-4 /HPF (0-4) Urine Squamous Epithelial Cells Mod /LPF Urine Amorphous Sediment Present /HPF Urine Bacteria Moderate /HPF (0-FEW) Urine Mucus Mod /LPF Urine Opiates Screen Pos (NEG) Urine Methadone Screen Neg (NEG) Urine Barbiturates Neg (NEG) Urine Phencyclidine Screen Neg (NEG) Urine Amphetamine/Methamphetamine Neg (NEG) Urine Benzodiazepines Screen Neg (NEG) Urine Cocaine Screen Neg (NEG) Urine Cannabinoids Screen Neg (NEG) Urine Ethyl Alcohol Neg (NEG) BLOOD CULTURE Final GRAM NEGATIVE RODS, IN 4 OF 4 BOTTLES, TWO SETS DRAWN. 1 OF 4 BOTTLES ALSO HAS FEW LARGE GRAM POSITIVE RODS. CALLED TO KERON HARRY RN ON [address] [place] [address] AT 7:15 ON 06/17/[address] [facility] FOR FURTHER WORKUP. Allergies: Coded Allergies: iron (Verified Allergy, Severe, Anaphylaxis, 06/16/21) Penicillins (Verified Allergy, Intermediate, LIGHT RASH CHILD, 06/16/21) TOLERATES ZOSYN Sulfa (Sulfonamide Antibiotics) (Verified Allergy, Intermediate, 06/16/21) I S O L A T I O N *CONTACT* (Verified Allergy, Unknown, 06/16/21) mrsa Medications: Current Medications Medications (Trade) Dose Ordered Sig/Kel Route PRN Reason Start Time Stop Time Status Last Admin Dose Admin Sodium Chloride 1,000 ml @ 1,000 mls/hr 1X ONCE IV 06/16/21 14:00 06/16/21 14:59 DC 06/16/21 14:00 Ondansetron HCl (Zofran) 4 mg 1X ONCE IVP 06/16/21 14:00 06/16/21 14:01 DC 06/16/21 14:18 Hydromorphone HCl (Dilaudid) 1 mg 1X ONCE IVP 06/16/21 14:00 06/16/21 14:01 DC 06/16/21 14:18 Diphenhydramine HCl (Benadryl) 25 mg 1X ONCE IVP 06/16/21 14:00 06/16/21 14:01 DC 06/16/21 14:19 Pantoprazole Sodium (PROTONIX VIAL for IV PUSH) 40 mg 1X ONCE IVP 06/16/21 14:00 06/16/21 14:01 DC 06/16/21 14:19 Hydromorphone HCl (Dilaudid) 1 mg 1X ONCE IVP 06/16/21 16:30 06/16/21 16:31 DC 06/16/21 16:30 Iohexol (Omnipaque 300 Mg/ml) 75 ml 1X ONCE IV 06/16/21 18:15 06/16/21 18:16 DC 06/16/21 18:15 Ondansetron HCl (Zofran) 4 mg 1X ONCE IVP 06/16/21 18:45 06/16/21 18:46 DC 06/16/21 18:40 Hydromorphone HCl (Dilaudid) 1 mg 1X ONCE IVP 06/16/21 19:30 06/16/21 19:31 DC 06/16/21 19:41 Metoclopramide HCl (Reglan Vial) 10 mg 1X ONCE IVP 06/16/21 19:30 06/16/21 19:31 DC 06/16/21 19:40 Ondansetron HCl (Zofran) 4 mg PRN Q8HRS PRN IVP NAUSEA/VOMITING 06/16/21 20:00 06/17/21 19:59 06/17/21 07:34 Sodium Chloride 1,000 ml @ 75 mls/hr [id number] IV 06/16/21 20:00 06/17/21 08:56 Hydromorphone HCl (Dilaudid) 1 mg PRN Q3HRS PRN IVP PAIN 06/16/21 20:00 06/17/21 07:34 Lorazepam (Ativan Inj) 1 mg 1X STAT IVP 06/16/21 19:47 06/16/21 19:57 DC 06/16/21 20:32 Diphenhydramine HCl (Benadryl) 25 mg PRN Q6HRS PRN IVP ITCHING 06/16/21 20:15 06/17/21 04:01 Vancomycin HCl (Vanco Per Pharmacy) 1 each PRN DAILY PRN MC SEE COMMENTS 06/17/21 08:00 06/17/21 10:04 Vancomycin HCl 2 gm/Sodium Chloride 500 ml @ 250 mls/hr 1X ONCE IV 06/17/21 08:15 06/17/21 10:14 DC 06/17/21 08:56 Levofloxacin/ Dextrose 100 ml @ 100 mls/hr Q24H IV 06/17/21 09:00 06/17/21 09:51 Imaging: Imaging: CT A/P Impression: 1. Expected positioning of percutaneous gastrostomy and 2 jejunostomy tubes. No evidence of complication. 2. Mild splenomegaly, measuring 14 cm AP. 3. No acute inflammatory process in the abdomen and pelvis. AAS Impression: 1. No newly seen radiographic abnormality of the chest 06/14/2021. 2. The bowel gas pattern is nonobstructive. 3. Jejunostomy tube with the tip projecting at the right lower quadrant. Gastrostomy tube present as well. 4. Mild volume well-formed stool within the rectum. CXR IMPRESSION: Right perihilar and lung base airspace opacities likely consolidative process as pneumonia. PE: GEN: uncomfortable HEENT: Atraumatic, PERRL LUNGS: difficult to assess w/ moaning HEART: tachycardic ABD: non-distended, G tube, J tubes EXTREMITY: No edema SKIN: No rashes, no jaundice NEURO/PSYCH: A & O 3, anxious A/P: A/P: Chronic abd pain, n/v - h/o gastroparesis, complicated surgical history Fever, GNR bacteremia Pancytopenia, mildly elevated Alk Phos GERD H/o H. pylori - treated CRC screen, h/o adenomatous polyps Chronic constipation S/p cholecystectomy H/o elevated LFTs (better now) - suspect TPN related COVID positive (also in past) -- ID to see re: bacteremia. Supportive care from GI standpoint. Has IV Reglan ordered, can add PPI. LIA RO Jun 17, 2021 10:53
[2021-06-17 11:00] VITALS: BP 129/50
--- NOTE | 2021-06-17 12:37 | NUR ---
SW following. Discussed with RN, pt from home with family, room air, NPO, Flu and Rapid COVID-19 negative. Surgery and GI following. Pt from home with [facility] for TPN and has been following at [facility] outpatient for labs. SW will continue to follow.
--- NOTE | 2021-06-17 12:39 | CONS ---
DATE OF CONSULTATION: 06/17/2021 REFERRING PHYSICIAN: Dr. Blue. REASON FOR CONSULTATION: Gram-negative bacteremia. HISTORY OF PRESENT ILLNESS: A 21-year-old female well known to our service from recent admission who presented to the ER multiple times this week with complaints of chronic abdominal pain, nausea and vomiting, fever of 104. She was recently diagnosed with pneumonia on 06/14/2021 and was receiving azithromycin. She believes that she had "bloodstream infection." The patient currently is crying. She does not feel good. Does have headache, nausea, vomiting, diarrhea, abdominal pain, also has G-tube site drainage, which has worsened. She underwent J-tube exchange by Dr. Nevarez on 05/21/2021, the patient is on TPN for gastroparesis. The patient also has a left chest wall port. She had methicillin-resistant Staph epidermidis bacteremia in April for which she was treated with Zyvox which she could not tolerate because of nausea and vomiting and was later changed to daptomycin which she completed. Repeat blood cultures from 05/21 remain negative. Upon admission, her white count was 2.6, hemoglobin of 7.9, platelets of 75 with bandemia. Creatinine was within normal limits. Lactate was 0.8. Procalcitonin was 2.86. Blood cultures done on admission on the positive for gram-negative chasity. The patient is currently on Levaquin and vancomycin. ID consultation has been requested for antibiotic management. REVIEW OF SYSTEMS: Complains of generalized aches and pains, headache, nausea, vomiting, fevers, chills, diarrhea, abdominal pain, J-tube drainage, anxious. PAST MEDICAL HISTORY: Migraine, depression, hypertension, gastroparesis, on G-tube, on TPN through central line placed sometime in March, has had multiple CLABSI, central lines have been removed, previously had fungemia and was exchanged at [facility] per the patient report. Depression, anxiety, history of CVA, history of urinary retention, history of Carrillo catheter in the past. PAST SURGICAL HISTORY: As per HPI. FAMILY HISTORY: As per HPI. SOCIAL HISTORY: Lives with family. Denies smoking, ETOH, or illicit drug use. CURRENT MEDICATIONS: Levaquin, vancomycin. Other medications reviewed in medication list. ALLERGIES: PENICILLIN, SULFA AND IRON. Has tolerated meropenem and cephalosporins well. REVIEW OF SYSTEMS: Negative except for above in HPI. PHYSICAL EXAMINATION: VITAL SIGNS: Temperature 102, pulse 127, respiratory rate 20, blood pressure 130/66, oxygen saturation 93% on room air. GENERAL: Alert, oriented x 3 female sitting upright in chair, in mild distress. HEENT: Normocephalic, atraumatic. Anicteric sclerae. No thrush. Oral mucosa moist. NECK: Supple. LUNGS: Clear. Chest wall Port-A-Cath site clean. HEART: S1, S2, tachycardia. No murmurs. ABDOMEN: Nondistended, G-tube and J-tubes present. Mild irritation around both the tubes. EXTREMITIES: No edema. DERMATOLOGIC: Warm, dry, no generalized rash. NEUROLOGIC: Alert, oriented x 3, grossly nonfocal, anxious. PSYCHIATRIC: Anxious, otherwise cooperative. LABORATORY DATA: WBC 3.0, hemoglobin 7.3, hematocrit 22.5, platelets 72. Sodium 141, potassium 3.6, chloride 108, bicarbonate 25, BUN 9, creatinine 0.6, glucose 115. Lactate 0.8, albumin 2.8, alkaline phosphatase 135. UDS positive for opiates, otherwise negative. Leukocyte esterase is negative. Serology, SARS-COVID was positive on 05/25. Influenza screen negative. Rapid is negative. MICROBIOLOGY: Blood culture, both sets 06/16/21, gram-negative hcasity. ID and KEREN pending at this time. IMAGING: Abdomen and pelvic CT shows expected positioning of percutaneous gastrostomy and 2 jejunostomy tubes. No evidence of complication. Mild splenomegaly. No acute inflammatory process in the abdomen and pelvis. IMPRESSION: 1. Sepsis from gram-negative bacteremia. 2. Fever. 3. Leukopenia, anemia, thrombocytopenia. 4. History of gastroparesis. G tube , Two J tubes.Mild Irritation. TPN through central line. 5. Hypertension. 6. History of migraines and seizures. 7. History of anxiety and depression. 8. History of urinary retention, status post Carrillo intermittently, urinary tract infection. 9. 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 10. Transaminitis, chronic, on TPN. 11. Chronic abdominal pain. 12. History of multiple J-tube exchanges. 13. HISTORY OF ALLERGIES TO SULFA AND PENICILLIN WITH NAUSEA AND VOMITING AND RASH, has tolerated Rocephin and meropenem. 14. COVID positive this admission and on 05/25/2021, The patient remains on room air at this time. RECOMMENDATIONS: 1. Discontinue IV vancomycin. 2. Discontinue Levaquin. 3. Start Cefepime pending ID of GNR in the blood cultures.Also on valproic acid. 4. Repeat blood cultures. 5. Follow up labs and cultures. 6. Port-A-Cath, may need removal. 7. Pain management per primary. 8. Maintain aspiration precaution. 9. GI and General Surgery has evaluated the patient. Continue local care of two J-tubes and G-tube. 10. Continue supportive care. 11. COVID management per primary. Thank you for allowing me to participate in this patient's care. If you have any questions, do not hesitate to contact me. Discussed with RN. KARI/WILFRED/DUNG DR: Radhika TID: [id number] MTDD
[2021-06-17] MEDS: CEFEPIME HCL IV Push 2 GM VIAL. IVP SCH ×2 (13:03→19:26)
[2021-06-17 15:00] VITALS: BP 109/63
[2021-06-17 19:00] VITALS: BP 124/60
[2021-06-17 23:06] VITALS: BP 123/77
[2021-06-18] MEDS: HYDROmorphone 2 MG/ML INJ. IVP PRN ×7 (02:04→23:55)
[2021-06-18] MEDS: diphenhydrAMINE 50 MG/ML VIAL IVP PRN ×2 (02:04→20:03)
[2021-06-18 03:15] VITALS: BP 110/58
[2021-06-18] MEDS: CEFEPIME HCL IV Push 2 GM VIAL. IVP SCH ×3 (05:56→22:46)
[2021-06-18 07:00] VITALS: BP 122/71
--- NOTE | 2021-06-18 08:55 | PDOC ---
Infectious Disease Note Subjective: Subjective Patient states she feels a little better Fever pattern improving Still has headache, nausea, abdominal discomfort which is chronic On room air Vital Signs: Vital Signs Vital Signs Date Time Temp Pulse Resp B/P (MAP) Pulse Ox O2 Delivery O2 Flow Rate FiO2 06/18/21 08:00 Room Air 06/18/21 07:00 97.8 88 17 122/71 (88) 100 2.0 97.8 Physical Exam: PHYSICAL EXAM GENERAL: Alert, oriented x 3 female lying in bed comfortably no acute distress, looks a little better HEENT: Normocephalic, atraumatic. Anicteric sclerae. No thrush. Oral mucosa moist. NECK: Supple. No meningismus LUNGS: Clear. Right chest wall Port-A-Cath site clean. HEART: S1, S2, tachycardia. No murmurs. ABDOMEN: Nondistended, G-tube and J-tubes present. Mild irritation around both the tubes. G-tube draining greenish bilious fluid EXTREMITIES: No edema. DERMATOLOGIC: Warm, dry, no generalized rash. NEUROLOGIC: Alert, oriented x 3, grossly nonfocal, anxious. PSYCHIATRIC: Anxious, otherwise cooperative. Medications: Inpatient Meds: Medications reviewed. Objective: Assessment: Sepsis from bacteremia present on admission 1. Gram-negative bacteremia 4 out of 4 bottles present on admission. 1 bottle positive for gram-positive chasity 2. Fever. 3. Leukopenia, anemia, thrombocytopenia. 4. History of gastroparesis. G tube , Two J tubes.Mild Irritation. TPN through central line. 5. Hypertension. 6. History of migraines and seizures. 7. History of anxiety and depression. 8. History of urinary retention, status post Carrillo intermittently, urinary tract infection. 9. 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 10. Transaminitis, chronic, on TPN. 11. Chronic abdominal pain. 12. History of multiple J-tube exchanges. 13. HISTORY OF ALLERGIES TO SULFA AND PENICILLIN WITH NAUSEA AND VOMITING AND RASH, has tolerated Rocephin and meropenem. 14. COVID positive this admission and on 05/25/2021, The patient remains on room air at this time. Plan: Plan of Care Dose daptomycin pending GPR in blood culture Follow-up ID and KEREN of GNR NG as needed blood culture Continue cefepime Follow up labs and cultures. Port-A-Cath, may need removal. G-tube still draining J drains management per general surgery GI following Pain management per primary. Maintain aspiration precaution. Continue supportive care. COVID management per primary. GAYLE RODRIGUEZ MD Jun 18, 2021 08:55
--- NOTE | 2021-06-18 09:01 | PDOC ---
SURGICAL PROGRESS NOTE DATE: 06/18/21 TIME: 08:59 Subjective still with ongoing pain nausea resolved with g tube to suction Vital Signs Vital Signs Date Time Temp Pulse Resp B/P (MAP) Pulse Ox O2 Delivery O2 Flow Rate FiO2 06/18/21 08:00 Room Air 06/18/21 07:00 97.8 88 17 122/71 (88) 100 2.0 97.8 I&O Intake and Output 06/18/21 07:00 Intake Total 300 ml Output Total 500 ml Balance -200 ml Intake Oral 300 ml Output Urine Total 500 ml # Voids 2 General: Alert, Cooperative Abdomen: Soft, Other (tubes in place) Labs Laboratory Tests Test 06/16/21 14:20 06/16/21 20:30 06/17/21 00:27 06/17/21 04:15 White Blood Count 2.6 x10^3/uL (4.0-11.0) 3.0 x10^3/uL (4.0-11.0) Red Blood Count 2.90 x10^6/uL (3.50-5.40) 2.72 x10^6/uL (3.50-5.40) Hemoglobin 7.9 g/dL (12.0-15.5) 7.3 g/dL (12.0-15.5) Hematocrit 24.1 % (36.0-47.0) 22.5 % (36.0-47.0) Mean Corpuscular Volume 83 fL (79-100) 83 fL (79-100) Mean Corpuscular Hemoglobin 27 pg (25-35) 27 pg (25-35) Mean Corpuscular Hemoglobin Concent 33 g/dL (31-37) 33 g/dL (31-37) Red Cell Distribution Width 15.4 % (11.5-14.5) 15.2 % (11.5-14.5) Platelet Count 75 x10^3/uL (140-400) 72 x10^3/uL (140-400) Neutrophils (%) (Auto) 64 % (31-73) 77 % (31-73) Lymphocytes (%) (Auto) 16 % (24-48) 7 % (24-48) Monocytes (%) (Auto) 20 % (0-9) 15 % (0-9) Eosinophils (%) (Auto) 0 % (0-3) 0 % (0-3) Basophils (%) (Auto) 0 % (0-3) 0 % (0-3) Neutrophils # (Auto) 1.6 x10^3/uL (1.8-7.7) 2.3 x10^3/uL (1.8-7.7) Lymphocytes # (Auto) 0.4 x10^3/uL (1.0-4.8) 0.2 x10^3/uL (1.0-4.8) Monocytes # (Auto) 0.5 x10^3/uL (0.0-1.1) 0.5 x10^3/uL (0.0-1.1) Eosinophils # (Auto) 0.0 x10^3/uL (0.0-0.7) 0.0 x10^3/uL (0.0-0.7) Basophils # (Auto) 0.0 x10^3/uL (0.0-0.2) 0.0 x10^3/uL (0.0-0.2) Segmented Neutrophils % 58 % (35-66) Band Neutrophils % 10 % (0-9) Lymphocytes % 23 % (24-48) Atypical Lymphocytes % (Manual) 1 % (0-0) Monocytes % 8 % (0-10) Platelet Estimate Decreased (ADEQUATE) Poikilocytosis Slight Ovalocytes Few Sodium Level 139 mmol/L (136-145) 141 mmol/L (136-145) Potassium Level 4.1 mmol/L (3.5-5.1) 3.6 mmol/L (3.5-5.1) Chloride Level 106 mmol/L (98-107) 108 mmol/L (98-107) Carbon Dioxide Level 22 mmol/L (21-32) 25 mmol/L (21-32) Anion Gap 11 (6-14) 8 (6-14) Blood Urea Nitrogen 12 mg/dL (7-20) 9 mg/dL (7-20) Creatinine 0.6 mg/dL (0.6-1.0) 0.6 mg/dL (0.6-1.0) Estimated GFR (Cockcroft-Gault) 123.9 123.9 BUN/Creatinine Ratio 20 (6-20) 15 (6-20) Glucose Level 107 mg/dL (70-99) 115 mg/dL (70-99) Lactic Acid Level 0.8 mmol/L (0.4-2.0) Calcium Level 7.8 mg/dL (8.5-10.1) 7.4 mg/dL (8.5-10.1) Total Bilirubin 0.5 mg/dL (0.2-1.0) 0.6 mg/dL (0.2-1.0) Aspartate Amino Transf (AST/SGOT) 37 U/L (15-37) 26 U/L (15-37) Alanine Aminotransferase (ALT/SGPT) 66 U/L (14-59) 55 U/L (14-59) Alkaline Phosphatase 141 U/L (46-116) 134 U/L (46-116) Total Protein 6.7 g/dL (6.4-8.2) 6.2 g/dL (6.4-8.2) Albumin 3.1 g/dL (3.4-5.0) 2.8 g/dL (3.4-5.0) Albumin/Globulin Ratio 0.9 (1.0-1.7) 0.8 (1.0-1.7) Lipase 24 U/L (73-393) Procalcitonin 2.86 ng/mL (0.00-0.10) Influenza Type A Antigen Negative (NEGATIVE) Influenza Type B Antigen Negative (NEGATIVE) SARS-CoV-2 RNA (SALVADOR) Positive (Negative) SARS-CoV-2 Antigen (Rapid) Negative (NEGATIVE) Urine Collection Type Unknown Urine Color Rashmi Urine Clarity Clear Urine pH 5.5 (<5.0-8.0) Urine Specific [place] >=1.030 (1.000-1.030) Urine Protein Negative mg/dL (NEG-TRACE) Urine Glucose (UA) Negative mg/dL (NEG) Urine Ketones (Stick) 15 mg/dL (NEG) Urine Blood Trace (NEG) Urine Nitrite Negative (NEG) Urine Bilirubin Negative (NEG) Urine Urobilinogen Dipstick 1.0 mg/dL (0.2 mg/dL) Urine Leukocyte Esterase Negative (NEG) Urine RBC 1-2 /HPF (0-2) Urine WBC 1-4 /HPF (0-4) Urine Squamous Epithelial Cells Mod /LPF Urine Amorphous Sediment Present /HPF Urine Bacteria Moderate /HPF (0-FEW) Urine Mucus Mod /LPF Urine Opiates Screen Pos (NEG) Urine Methadone Screen Neg (NEG) Urine Barbiturates Neg (NEG) Urine Phencyclidine Screen Neg (NEG) Urine Amphetamine/Methamphetamine Neg (NEG) Urine Benzodiazepines Screen Neg (NEG) Urine Cocaine Screen Neg (NEG) Urine Cannabinoids Screen Neg (NEG) Urine Ethyl Alcohol Neg (NEG) Problem List Problems Medical Problems: (1) Intractable abdominal pain Status: Acute (2) Intractable nausea and vomiting Status: Acute Assessment/Plan supportive care, ID managing abx nutritional consult pending round, chart <15 min Justicifation of Admission Dx: Justifications for Admission: Justification of Admission Dx: Yes Sepsis: Bacteremia HANNAH [employer] Jun 18, 2021 09:01
--- NOTE | 2021-06-18 10:42 | NUR ---
SW following. Discussed with Dr. Blue. Dr. Blue recommended hospice or palliative caret to pt, pt agreeable to speaking to a palliative care company to find out more information and make a decision. NIXON contacted [facility] (ph: [phone]), awaiting return call to see when they can meet with pt. Unsure if pt can still do TPN whilst on Palliative Care. NIXON will continue to follow. Addendum: 06/18/21 at 1534 by ELVI ALICEA [facility] are unable to provide services for this patient, they recommended [facility]. NIXON phoned and faxed referral - pt was denied due to being out of area coverage. NIXON rather unsuccessful at finding companies with palliative care in [place], or near [place], [place]. NIXON spoke with [facility], they are pretty sure they cannot visit with pt due to not travelling as far as [facility]. NIXON spoke with [facility], referral faxed - awaiting determination if their [place] offices cover [place], [place].
[2021-06-18 11:00] VITALS: BP 111/62
--- NOTE | 2021-06-18 11:12 | PDOC ---
Date of Service: DATE: 06/18/21 TIME: 11:07 Subjective: Subjective: Better today - less nausea, G tube suction. Mentions she had a lot of water. Stooled last night. Objective: Vital Signs: Vital Signs Date Time Temp Pulse Resp B/P (MAP) Pulse Ox O2 Delivery O2 Flow Rate FiO2 06/18/21 10:38 Room Air 06/18/21 07:00 97.8 88 17 122/71 (88) 100 2.0 97.8 Labs: CULTURE URINE Final THREE OR MORE ORGANISMS ISOLATED. RESULTS CONSISTENT WITH COLONIZATION OR CONTAMINATION DURING COLLECTION PROCESS. RECOLLECTION RECOMMENDED USING A METHOD TO MINIMIZE CONTAMINATION. PE: GEN: laying with ice pack across face LUNGS: room air HEART: mildly tachycardic ABD: non-distended, G tube suction dark bilious - canister nearly full NEURO/PSYCH: A & O 3 - much calmer today A/P: Chronic abd pain, n/v, complicated surgical history GNR (?also GPR) bacteremia Pancytopenia COVID positive (recent infection) -- Improved. Supportive care per GI. Justicifation of Admission Dx: Justifications for Admission: Justification of Admission Dx: Yes Sepsis: Bacteremia LIA RO Jun 18, 2021 11:12
[2021-06-18] MEDS: IV NORMAL SALINE 1000ML BAG 1,000 ML IV SCH (11:58)
[2021-06-18] MEDS: PANTOPRAZOLE IV PUSH 40 MG VIAL. IVP SCH (11:59)
--- NOTE | 2021-06-18 13:33 | PDOC ---
[employer] PROGRESS NOTE Date of Service DOS: DATE: 06/18/21 TIME: 13:31 Chief Complaint Chief Complaint Assessment/Plan Gram-negative bacteremia Acute on chronic pain syndrome Opioid dependence Pancytopenia History of idiopathic gastroparesis History of multiple abdominal surgery requiring 2 J-tube's and a G-tube Left chest port for antibiotic infusion and TPN Recovered Covid infection Admit to hospitalist service for further management ID consult for gram-negative bacteremia Hematology consult for pancytopenia Surgery consulted for GI and J-tube management GI consulted for gastroparesis Continue empiric IV antibiotics for now Continue TPN Nutrition consult Lovenox for DVT prophylaxis Protonix GI prophylaxis ADA diet CODE STATUS full code Discussed with RN and SW Disposition inpatient management as above DPOA: Mother Would consider palliative care for the patient as an option to control her chronic pain issues. Pt reports that she is tired of fighting all this and is interested in pursuing palliative care. She is receptive to that and I will try to see which companies are able to allow tube feedings at least in addition to receiving comfort measures. History of Present Illness History of Present Illness 21 year old female with history of hypertension, DVT on lovenox shots, idiopathic gastroparesis with multiple abdominal surgeries for G-tubes and J- tube placement and takedown's, Port-A-Cath for TPN infusions who presents to the ED today complaining of chronic abdominal pain with nausea and vomiting. Patient states she has been seen in the ED 2 times in the last 1weeks for the same complaint. this is her third visit. She states she was diagnosed with pneumonia on June 14, 2021 which is 3 days ago. She states she was put on azithromycin. She states she believes she has "bloodstream" infection. Patient arrived to the ED crying and complaining of pain and asking for narcotic medications. 06/18/2021 No acute events overnight. Patient seen and examined bedside. Patient complaining of 6 out of 10 pain. Still having nausea vomiting with any type of J-tube feeds according to the patient. Patient wishes to be evaluated palliative care. Pending meeting with that. Still continue with TPN and IV antibiotics for bacteremia. Patient's chart, labs, images were reviewed and discussed with RN Vitals/I&O Vitals/I&O: Vital Signs Date Time Temp Pulse Resp B/P (MAP) Pulse Ox O2 Delivery O2 Flow Rate FiO2 06/18/21 11:00 97.8 101 17 111/62 (78) 97 Nasal Cannula 2.0 97.8 I & O 06/17/21 06/17/21 06/18/21 15:00 23:00 07:00 Intake Total 300 ml Output Total 500 ml Balance 300 ml -500 ml Physical Exam Physical Exam: GENERAL: Alert, oriented x 3 female lying in bed comfortably no acute distress, looks a little better HEENT: Normocephalic, atraumatic. Anicteric sclerae. No thrush. Oral mucosa moist. NECK: Supple. No meningismus LUNGS: Clear. Right chest wall Port-A-Cath site clean. HEART: S1, S2, tachycardia. No murmurs. ABDOMEN: Nondistended, G-tube and J-tubes present. Mild irritation around both the tubes. G-tube draining greenish bilious fluid EXTREMITIES: No edema. DERMATOLOGIC: Warm, dry, no generalized rash. NEUROLOGIC: Alert, oriented x 3, grossly nonfocal, anxious. PSYCHIATRIC: Anxious, otherwise cooperative. General: Alert, Cooperative Heart: Regular rate, Normal S1, Normal S2 Lungs: Clear Abdomen: Soft, Other (tubes in place) Extremities: No clubbing, No cyanosis Skin: No rashes, No breakdown Assessment and Plan Assessmemt and Plan Problems Medical Problems: (1) Intractable abdominal pain Status: Acute (2) Intractable nausea and vomiting Status: Acute Comment Review of Relevant I have reviewed the following items laol (where applicable) has been applied. Medications: Current Medications Medications (Trade) Dose Ordered Sig/Kel Route PRN Reason Start Time Stop Time Status Last Admin Dose Admin Cefepime HCl (Maxipime) 2 gm Q8HRS IVP 06/17/21 14:00 06/18/21 05:56 Ondansetron HCl (Zofran) 4 mg PRN Q6HRS PRN IVP NAUSEA/VOMITING 1ST CHOICE 06/17/21 22:45 06/17/21 22:50 Pantoprazole Sodium (PROTONIX VIAL for IV PUSH) 40 mg DAILYAC IVP 06/18/21 12:00 06/18/21 11:59 Justifications for Admission Other Justification Fever DESIREE MCCALL MD Jun 18, 2021 13:33
[2021-06-18 15:00] VITALS: BP 130/71
[2021-06-18] MEDS: ONDANSETRON PF 4 MG/2 ML VIAL. IVP PRN (15:55)
[2021-06-18 19:00] VITALS: BP 102/60
[2021-06-18] MEDS: METOCLOPRAMIDE HCL 10 MG/2 ML VIAL. IVP PRN (20:48)
[2021-06-18 23:10] VITALS: BP 108/56
[2021-06-19] MEDS: HYDROmorphone 2 MG/ML INJ. IVP PRN ×6 (03:17→21:24)
[2021-06-19] MEDS: IV NORMAL SALINE 1000ML BAG 1,000 ML IV SCH ×2 (03:18→13:06)
[2021-06-19 03:33] VITALS: BP 114/55
--- NOTE | 2021-06-19 06:04 | PDOC ---
Infectious Disease Note Subjective: Subjective Patient states she feels a little better Fever pattern improved Still has headache, nausea, abdominal discomfort which is chronic On room air Vital Signs: Vital Signs Vital Signs Date Time Temp Pulse Resp B/P (MAP) Pulse Ox O2 Delivery O2 Flow Rate FiO2 06/19/21 03:47 16 100 Room Air 06/19/21 03:33 98.4 91 114/55 (74) 98.4 06/19/21 03:17 2.0 Physical Exam: PHYSICAL EXAM GENERAL: Alert, oriented x 3 female lying in bed comfortably no acute distress, looks a little better HEENT: Normocephalic, atraumatic. Anicteric sclerae. No thrush. Oral mucosa moist. NECK: Supple. No meningismus LUNGS: Clear. Right chest wall Port-A-Cath site clean. HEART: S1, S2, tachycardia. No murmurs. ABDOMEN: Nondistended, G-tube and J-tubes present. Mild irritation around both the tubes. G-tube draining greenish bilious fluid EXTREMITIES: No edema. DERMATOLOGIC: Warm, dry, no generalized rash. NEUROLOGIC: Alert, oriented x 3, grossly nonfocal, anxious. PSYCHIATRIC: Anxious, otherwise cooperative. Medications: Inpatient Meds: Medications reviewed. Objective: Assessment: Sepsis from bacteremia present on admission 1. Kleb Pneumonia bacteremia 4 out of 4 bottles present on admission. 1 bottle positive for Bacillus, latter likely contaminant 2. Fever. 3. Leukopenia, anemia, thrombocytopenia. 4. History of gastroparesis. G tube , Two J tubes.Mild Irritation. TPN through central line. 5. Hypertension. 6. History of migraines and seizures. 7. History of anxiety and depression. 8. History of urinary retention, status post Carrillo intermittently, urinary tract infection. 9. 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 10. Transaminitis, chronic, on TPN. 11. Chronic abdominal pain. 12. History of multiple J-tube exchanges. 13. HISTORY OF ALLERGIES TO SULFA AND PENICILLIN WITH NAUSEA AND VOMITING AND RASH, has tolerated Rocephin and meropenem. 14. COVID positive this admission and on 05/25/2021, The patient remains on room air at this time. Plan: Plan of Care Change to ceftriaxone Follow up labs and cultures. Port-A-Cath may need removal. F/U repeat BC neg so far Pt wants trial to salvage the al cath When ready for dc if repeat bc are negative, can give cefdinir for 10 more days Al cath care G tube and J drains management per general surgery GI following Pain management per primary. Maintain aspiration precaution. Continue supportive care. COVID management per primary. GAYLE RODRIGUEZ MD Jun 19, 2021 06:04
[2021-06-19] MEDS: CEFEPIME HCL IV Push 2 GM VIAL. IVP SCH (06:18)
[2021-06-19] MEDS: PANTOPRAZOLE IV PUSH 40 MG VIAL. IVP SCH (06:18)
[2021-06-19] MEDS: ONDANSETRON PF 4 MG/2 ML VIAL. IVP PRN ×3 (06:32→21:23)
[2021-06-19 07:00] VITALS: BP 110/70
--- NOTE | 2021-06-19 08:53 | PDOC ---
HANNAH VALLE ORTHOPAEDIC SURGEON 06/19/21 0853: SURGICAL PROGRESS NOTE DATE: 06/19/21 TIME: 08:52 Subjective resting reports g tube broken, needs replaced Vital Signs Vital Signs Date Time Temp Pulse Resp B/P (MAP) Pulse Ox O2 Delivery O2 Flow Rate FiO2 06/19/21 07:30 Nasal Cannula 2.0 06/19/21 07:00 98.1 108 16 110/70 (83) 97 98.1 I&O Intake and Output 06/19/21 07:00 Intake Total 0 ml Output Total 1900 ml Balance -1900 ml Intake Oral 0 ml Output Urine Total 600 ml Gastric Drainage Total 1300 ml General: Cooperative, No acute distress Abdomen: Soft, Other (tubes in place) Problem List Problems Medical Problems: (1) Intractable abdominal pain Status: Acute (2) Intractable nausea and vomiting Status: Acute Assessment/Plan will ask IR to replace g tube supportive care round, chart 10 min Justicifation of Admission Dx: Justifications for Admission: Justification of Admission Dx: Yes Sepsis: Bacteremia TORIE MILELR MD 06/19/21 1526: SURGICAL PROGRESS NOTE Assessment/Plan Pt seen and examined. Agree with 's note Pt without new c/o abd soft, tubes with appropriate dressing will get G-tube changed. Pt interested in pursuing palliative care in interest of being home more. Will f/u on 06/22 HANNAH VALLE APRN Jun 19, 2021 08:53 TORIE MILLER MD Jun 19, 2021 15:26
--- NOTE | 2021-06-19 10:03 | PDOC ---
Date of Service: DATE: 06/19/21 TIME: 09:59 Subjective: Subjective: Needs pain meds. Nausea. "They were better on top of my meds yesterday." Says she has discussed palliative care because she's not comfortable - family okay with this as long as it's not Hospice. Objective: Vital Signs: Vital Signs Date Time Temp Pulse Resp B/P (MAP) Pulse Ox O2 Delivery O2 Flow Rate FiO2 06/19/21 07:30 Nasal Cannula 2.0 06/19/21 07:00 98.1 108 16 110/70 (83) 97 98.1 Labs: BLOOD CULTURE Final GRAM NEGATIVE RODS FINAL ID= KLEBSIELLA PNEUMONIAE SEE CULTURE M147 FOR SUSCEPTIBILITY RESULTS GRAM POSITIVE RODS FINAL ID= BACILLUS SPECIES NOT ANTHRACIS Growth of organism in only one of multiple sets; isolation does not necessarily indicate infection. Contact Microbiology Lab if further testing is clinically warranted. Testing [place] [address] director of events: Corrie Abdullahi MD Organism 1 KLEBSIELLA PNEUMONIAE PE: GEN: heard moaning down the hallway, seems uncomfortable in bed LUNGS: CTAB HEART: mildly tachycardic ABD: G tube drainage clear-brownish NEURO/PSYCH: A & O 3 A/P: Chronic abd pain, n/v, complicated surgical history Bacteremia - blood culture above -- Supportive care per GI. Justicifation of Admission Dx: Justifications for Admission: Justification of Admission Dx: Yes Sepsis: Bacteremia LIA RO Jun 19, 2021 10:03
[2021-06-19 11:00] VITALS: BP 119/71
--- NOTE | 2021-06-19 11:21 | PDOC ---
[employer] PROGRESS NOTE Date of Service DOS: DATE: 06/19/21 TIME: 11:19 Chief Complaint Chief Complaint Assessment/Plan Gram-negative bacteremia Acute on chronic pain syndrome Opioid dependence Pancytopenia History of idiopathic gastroparesis History of multiple abdominal surgery requiring 2 J-tube's and a G-tube Left chest port for antibiotic infusion and TPN Recovered Covid infection Admit to hospitalist service for further management ID consult for gram-negative bacteremia Hematology consult for pancytopenia Surgery consulted for GI and J-tube management GI consulted for gastroparesis Continue empiric IV antibiotics for now Continue TPN Nutrition consult Lovenox for DVT prophylaxis Protonix GI prophylaxis ADA diet CODE STATUS full code Discussed with RN and SW Disposition inpatient management as above DPOA: Mother Would consider palliative care for the patient as an option to control her chronic pain issues. Pt reports that she is tired of fighting all this and is interested in pursuing palliative care. She is receptive to that and I will try to see which companies are able to allow tube feedings at least in addition to receiving comfort measures. History of Present Illness History of Present Illness 21 year old female with history of hypertension, DVT on lovenox shots, idiopathic gastroparesis with multiple abdominal surgeries for G-tubes and J- tube placement and takedown's, Port-A-Cath for TPN infusions who presents to the ED today complaining of chronic abdominal pain with nausea and vomiting. Patient states she has been seen in the ED 2 times in the last 1weeks for the same complaint. this is her third visit. She states she was diagnosed with pneumonia on June 14, 2021 which is 3 days ago. She states she was put on azithromycin. She states she believes she has "bloodstream" infection. Patient arrived to the ED crying and complaining of pain and asking for narcotic medications. 06/18/2021 No acute events overnight. Patient seen and examined bedside. Patient complaining of 6 out of 10 pain. Still having nausea vomiting with any type of J-tube feeds according to the patient. Patient wishes to be evaluated palliative care. Pending meeting with that. Still continue with TPN and IV antibiotics for bacteremia. Patient's chart, labs, images were reviewed and discussed with RN 06/19/2021 No acute events overnight. Patient seen examined bedside. No changes in her current condition. So far blood cultures are negative to date. Currently on ceftriaxone and may consider transition to cefdinir per ID. Surgery wants to possibly replace the G-tube with help from interventional radiology. Hospice company attempt to contact mom last night with no success. We will continue to attempt to get palliative care started for patient Vitals/I&O Vitals/I&O: Vital Signs Date Time Temp Pulse Resp B/P (MAP) Pulse Ox O2 Delivery O2 Flow Rate FiO2 06/19/21 10:37 Room Air 06/19/21 10:06 2.0 06/19/21 07:00 98.1 108 16 110/70 (83) 97 98.1 I & O 06/18/21 06/18/21 06/19/21 15:00 23:00 07:00 Intake Total 0 ml 0 ml Output Total 1900 ml Balance 0 ml -1900 ml Physical Exam Physical Exam: GENERAL: Alert, oriented x 3 female lying in bed comfortably no acute distress, looks a little better HEENT: Normocephalic, atraumatic. Anicteric sclerae. No thrush. Oral mucosa moist. NECK: Supple. No meningismus LUNGS: Clear. Right chest wall Port-A-Cath site clean. HEART: S1, S2, tachycardia. No murmurs. ABDOMEN: Nondistended, G-tube and J-tubes present. Mild irritation around both the tubes. G-tube draining greenish bilious fluid EXTREMITIES: No edema. DERMATOLOGIC: Warm, dry, no generalized rash. NEUROLOGIC: Alert, oriented x 3, grossly nonfocal, anxious. PSYCHIATRIC: Anxious, otherwise cooperative. General: Cooperative, No acute distress Heart: Regular rate, Normal S1, Normal S2 Lungs: Clear Abdomen: Soft, Other (tubes in place) Extremities: No clubbing, No cyanosis Skin: No rashes, No breakdown Assessment and Plan Assessmemt and Plan Problems Medical Problems: (1) Intractable abdominal pain Status: Acute (2) Intractable nausea and vomiting Status: Acute Comment Review of Relevant I have reviewed the following items lalo (where applicable) has been applied. Medications: Current Medications Medications (Trade) Dose Ordered Sig/Kel Route PRN Reason Start Time Stop Time Status Last Admin Dose Admin Pantoprazole Sodium (PROTONIX VIAL for IV PUSH) 40 mg DAILYAC IVP 06/18/21 12:00 06/19/21 06:18 Justifications for Admission Other Justification Fever DESIREE MCCALL MD Jun 19, 2021 11:21
--- NOTE | 2021-06-19 12:38 | NUR ---
NIXON following. Discussed with [facility] met with pt in the early evening last night and provided information about palliative care and hopsice. NIXON spoke with Justina ([facility]) this morning, pt expressed being tired of being in hospital and seemed receptive to the idea of palliative or hospice. Justina is from the [facility] office but pt would follow with the [facility] office - so ultimately that office would have to decide whether they would be willing to continue TPN if pt chose the hospice route. Sakina requested Justina call her mother to discuss, however no answer and no return call as of this morning. Sophia and her family will need to make a decision about what to do moving forwards. Discussed with Dr. Blue, IR consulted, pt may end up discharging as per usual and can make the hospice/ palliative decision once home. NIXON will continue to follow.
[2021-06-19] MEDS: cefTRIAXone IV Push 2 GM VIAL. IVP SCH (13:05)
[2021-06-19] MEDS ORDERED: IOHEXOL 240 MG/ML 50ML VIAL. ONE (15:26)
[2021-06-19] MEDS ORDERED: MIDAZOLAM HCL/PF 2 MG/2 ML VIAL. ONE (15:59)
[2021-06-19] MEDS ORDERED: fentaNYL PF VIAL 100 MCG/2 ML VIAL ONE (15:59)
[2021-06-19] MEDS ORDERED: IOHEXOL 240 MG/ML 50ML VIAL. IJ ONE (16:15)
[2021-06-19] MEDS ORDERED: MIDAZOLAM HCL/PF 2 MG/2 ML VIAL. IV ONE (16:15)
[2021-06-19] MEDS ORDERED: CONTRAST GIVEN. MC PRN (16:15)
[2021-06-19] MEDS ORDERED: fentaNYL PF VIAL 100 MCG/2 ML VIAL IV ONE (16:15)
[2021-06-19 16:17] VITALS: BP 155/75
--- NOTE | 2021-06-19 16:46 | RAD ---
Replacement of gastrostomy tube under fluoroscopy. INDICATION: Pain. Ruptured balloon. + Discussion: The patient's gastrostomy tube was evaluated under fluoroscopy. Tube is in normal positi on. Contrast was administered filling of the stomach in expected fashion. No kinking of the tube is identified. No abnormality was seen. The tube was replaced over a wire with an identical gastrostomy tube. No immediate complications were identified. Fluoroscopy time 0.5 minutes Dose area product 4 Naik centimeter squared The procedure was performed under conscious sedation including continuous cardiopulmonary monitoring via a dedicated sedation nurse. [id number] sedation time: 15 minutes IMPRESSION: Fluoroscopically guided replacement of gastrostomy tube Electronically signed by: Flo Cartwright MD (06/19/2021 4:44 PM) [id number]
[2021-06-19] MEDS: diphenhydrAMINE 50 MG/ML VIAL IVP PRN (16:57)
[2021-06-19 19:00] VITALS: BP 124/70
[2021-06-19 23:06] VITALS: BP 110/67
[2021-06-20] MEDS: HYDROmorphone 2 MG/ML INJ. IVP PRN ×7 (00:42→20:32)
[2021-06-20] MEDS: diphenhydrAMINE 50 MG/ML VIAL IVP PRN ×3 (00:43→20:29)
[2021-06-20 03:19] VITALS: BP 123/78
[2021-06-20] MEDS: METOCLOPRAMIDE HCL 10 MG/2 ML VIAL. IVP PRN ×3 (04:00→20:29)
[2021-06-20] MEDS: PANTOPRAZOLE IV PUSH 40 MG VIAL. IVP SCH (06:11)
[2021-06-20] MEDS: IV NORMAL SALINE 1000ML BAG 1,000 ML IV SCH ×2 (06:23→16:14)
[2021-06-20 07:00] VITALS: BP 129/75
--- NOTE | 2021-06-20 10:56 | PDOC ---
[employer] PROGRESS NOTE Date of Service DOS: DATE: 06/20/21 TIME: 10:54 Chief Complaint Chief Complaint Assessment/Plan Gram-negative bacteremia Acute on chronic pain syndrome Opioid dependence Pancytopenia History of idiopathic gastroparesis History of multiple abdominal surgery requiring 2 J-tube's and a G-tube Left chest port for antibiotic infusion and TPN Recovered Covid infection Admit to hospitalist service for further management ID consult for gram-negative bacteremia Hematology consult for pancytopenia Surgery consulted for GI and J-tube management GI consulted for gastroparesis Continue empiric IV antibiotics for now Continue TPN Nutrition consult Lovenox for DVT prophylaxis Protonix GI prophylaxis ADA diet CODE STATUS full code Discussed with RN and SW Disposition inpatient management as above DPOA: Mother Would consider palliative care for the patient as an option to control her chronic pain issues. Pt reports that she is tired of fighting all this and is interested in pursuing palliative care. She is receptive to that and I will try to see which companies are able to allow tube feedings at least in addition to receiving comfort measures. History of Present Illness History of Present Illness 21 year old female with history of hypertension, DVT on lovenox shots, idiopathic gastroparesis with multiple abdominal surgeries for G-tubes and J- tube placement and takedown's, Port-A-Cath for TPN infusions who presents to the ED today complaining of chronic abdominal pain with nausea and vomiting. Patient states she has been seen in the ED 2 times in the last 1weeks for the same complaint. this is her third visit. She states she was diagnosed with pneumonia on June 14, 2021 which is 3 days ago. She states she was put on azithromycin. She states she believes she has "bloodstream" infection. Patient arrived to the ED crying and complaining of pain and asking for narcotic medications. 06/18/2021 No acute events overnight. Patient seen and examined bedside. Patient complaining of 6 out of 10 pain. Still having nausea vomiting with any type of J-tube feeds according to the patient. Patient wishes to be evaluated palliative care. Pending meeting with that. Still continue with TPN and IV antibiotics for bacteremia. Patient's chart, labs, images were reviewed and discussed with RN 06/19/2021 No acute events overnight. Patient seen examined bedside. No changes in her current condition. So far blood cultures are negative to date. Currently on ceftriaxone and may consider transition to cefdinir per ID. Surgery wants to possibly replace the G-tube with help from interventional radiology. Hospice company attempt to contact mom last night with no success. We will continue to attempt to get palliative care started for patient 06/20/2021 No acute events overnight. Patient seen examined bedside. AF and VSS. Continue with IV antibiotics and TPN. Still unable to tolerate tube feedings. Patient's G-tube replaced. Pending hospice discussion. Patient's chart, labs, images were reviewed and discussed with RN Vitals/I&O Vitals/I&O: Vital Signs Date Time Temp Pulse Resp B/P (MAP) Pulse Ox O2 Delivery O2 Flow Rate FiO2 06/20/21 10:10 92 Room Air 2.0 06/20/21 07:05 16 06/20/21 07:00 97.7 78 129/75 (93) 97.7 I & O 06/19/21 06/19/21 06/20/21 15:00 23:00 07:00 Intake Total 100 ml Output Total 2600 ml 1400 ml Balance -2500 ml -1400 ml Physical Exam Physical Exam: GENERAL: Alert, oriented x 3 female lying in bed comfortably no acute distress, looks a little better HEENT: Normocephalic, atraumatic. Anicteric sclerae. No thrush. Oral mucosa moist. NECK: Supple. No meningismus LUNGS: Clear. Right chest wall Port-A-Cath site clean. HEART: S1, S2, tachycardia. No murmurs. ABDOMEN: Nondistended, G-tube and J-tubes present. Mild irritation around both the tubes. G-tube draining greenish bilious fluid EXTREMITIES: No edema. DERMATOLOGIC: Warm, dry, no generalized rash. NEUROLOGIC: Alert, oriented x 3, grossly nonfocal, anxious. PSYCHIATRIC: Anxious, otherwise cooperative. General: Alert, Oriented X3, Cooperative, No acute distress Heart: Regular rate, Normal S1, Normal S2 Lungs: Clear Abdomen: Soft, Other (tubes in place) Extremities: No clubbing, No cyanosis Skin: No rashes, No breakdown Assessment and Plan Assessmemt and Plan Problems Medical Problems: (1) Intractable abdominal pain Status: Acute (2) Intractable nausea and vomiting Status: Acute Comment Review of Relevant I have reviewed the following items lalo (where applicable) has been applied. Medications: Current Medications Medications (Trade) Dose Ordered Sig/Kel Route PRN Reason Start Time Stop Time Status Last Admin Dose Admin Ceftriaxone Sodium (Rocephin) 2 gm Q24H IVP 06/19/21 14:00 06/19/21 13:05 Iohexol (Omnipaque 240 Mg/ml) 50 ml 1X ONCE IJ 06/19/21 16:15 06/19/21 16:16 DC 06/19/21 16:21 Midazolam HCl (Versed) 2 mg 1X ONCE IV 06/19/21 16:15 06/19/21 16:16 DC 06/19/21 16:22 Fentanyl Citrate (Fentanyl 2ml Vial) 100 mcg 1X ONCE IV 06/19/21 16:15 06/19/21 16:16 DC 06/19/21 16:21 Justifications for Admission Other Justification Fever DESIREE MCCALL MD Jun 20, 2021 10:56
[2021-06-20 11:00] VITALS: BP 114/72
[2021-06-20] MEDS: cefTRIAXone IV Push 2 GM VIAL. IVP SCH (14:32)
[2021-06-20 15:00] VITALS: BP 119/74
[2021-06-20] MEDS: ENOXAPARIN 40 MG/0.4 ML SYRINGE. SQ SCH (16:13)
[2021-06-20] MEDS: ONDANSETRON PF 4 MG/2 ML VIAL. IVP PRN (16:19)
[2021-06-20 19:00] VITALS: BP 151/86
[2021-06-21] MEDS: HYDROmorphone 2 MG/ML INJ. IVP PRN ×7 (00:26→21:38)
[2021-06-21 05:34] LABS: CALCIUM 7.8 mg/dL (8.5-10.1); CREATININE 0.5 mg/dL (0.6-1.0); GFR 152.9; MAGNESIUM 1.6 mg/dL (1.8-2.4); POTASSIUM 3.4 mmol/L (3.5-5.1)
[2021-06-21 05:58] LABS: BASO % 0 % (0-3); EOS # 0.1 x10^3/uL (0.0-0.7); EOS % 1 % (0-3); HEMATOCRIT 22.3 % (36.0-47.0); HEMOGLOBIN 7.1 g/dL (12.0-15.5); LYMPH # 1.2 x10^3/uL (1.0-4.8); LYMPH % 23 % (24-48); MEAN CORPUSCULAR HEMOGLOBIN 26 pg (25-35); MEAN CORPUSCULAR HGB CONC 32 g/dL (31-37); MEAN CORPUSCULAR VOLUME 83 fL (79-100); MONO # 0.5 x10^3/uL (0.0-1.1); MONO % 9 % (0-9); NEUT # 3.4 x10^3/uL (1.8-7.7); NEUT % 66 % (31-73); PLATELET COUNT 137 x10^3/uL (140-400); RED BLOOD COUNT 2.68 x10^6/uL (3.50-5.40); RED CELL DISTRIBUTION WIDTH 15.9 % (11.5-14.5); WHITE BLOOD COUNT 5.1 x10^3/uL (4.0-11.0)
[2021-06-21 07:00] VITALS: BP 129/70
[2021-06-21] MEDS: PANTOPRAZOLE IV PUSH 40 MG VIAL. IVP SCH (08:45)
[2021-06-21] MEDS: IV NORMAL SALINE 1000ML BAG 1,000 ML IV SCH (08:48)
[2021-06-21] MEDS ORDERED: MAGNESIUM SULFATE 2GM 50 ML IV ONE (09:00)
[2021-06-21] MEDS ORDERED: POTASSIUM CHLORIDE 10MEQ 100 ML IV SCH (09:00)
[2021-06-21] MEDS: POTASSIUM CHLORIDE 20MEQ 100 ML IV SCH ×2 (10:16→11:18)
[2021-06-21 11:00] VITALS: BP 116/68
--- NOTE | 2021-06-21 12:30 | PDOC ---
[employer] PROGRESS NOTE Date of Service DOS: DATE: 06/21/21 TIME: 12:27 Chief Complaint Chief Complaint Assessment/Plan Gram-negative bacteremia Acute on chronic pain syndrome Opioid dependence Pancytopenia History of idiopathic gastroparesis History of multiple abdominal surgery requiring 2 J-tube's and a G-tube Left chest port for antibiotic infusion and TPN Recovered Covid infection Admit to hospitalist service for further management ID consult for gram-negative bacteremia Hematology consult for pancytopenia Surgery consulted for GI and J-tube management GI consulted for gastroparesis Continue empiric IV antibiotics for now Continue TPN Nutrition consult Lovenox for DVT prophylaxis Protonix GI prophylaxis ADA diet CODE STATUS full code Discussed with RN and SW Disposition inpatient management as above DPOA: Mother Would consider palliative care for the patient as an option to control her chronic pain issues. Pt reports that she is tired of fighting all this and is interested in pursuing palliative care. She is receptive to that and I will try to see which companies are able to allow tube feedings at least in addition to receiving comfort measures. History of Present Illness History of Present Illness 21 year old female with history of hypertension, DVT on lovenox shots, idiopathic gastroparesis with multiple abdominal surgeries for G-tubes and J- tube placement and takedown's, Port-A-Cath for TPN infusions who presents to the ED today complaining of chronic abdominal pain with nausea and vomiting. Patient states she has been seen in the ED 2 times in the last 1weeks for the same complaint. this is her third visit. She states she was diagnosed with pneumonia on June 14, 2021 which is 3 days ago. She states she was put on azithromycin. She states she believes she has "bloodstream" infection. Patient arrived to the ED crying and complaining of pain and asking for narcotic medications. 06/18/2021 No acute events overnight. Patient seen and examined bedside. Patient complaining of 6 out of 10 pain. Still having nausea vomiting with any type of J-tube feeds according to the patient. Patient wishes to be evaluated palliative care. Pending meeting with that. Still continue with TPN and IV antibiotics for bacteremia. Patient's chart, labs, images were reviewed and discussed with RN 06/19/2021 No acute events overnight. Patient seen examined bedside. No changes in her current condition. So far blood cultures are negative to date. Currently on ceftriaxone and may consider transition to cefdinir per ID. Surgery wants to possibly replace the G-tube with help from interventional radiology. Hospice company attempt to contact mom last night with no success. We will continue to attempt to get palliative care started for patient 06/20/2021 No acute events overnight. Patient seen examined bedside. AF and VSS. Continue with IV antibiotics and TPN. Still unable to tolerate tube feedings. Patient's G-tube replaced. Pending hospice discussion. Patient's chart, labs, images were reviewed and discussed with RN 06/21/2021 No acute events overnight. Patient seen examined bedside. Patient having severe pain upon my encounter requiring IV Dilaudid. Gram-negative rods did grow from repeat blood cultures. Patient's chart, labs, images were reviewed and discussed with RN Vitals/I&O Vitals/I&O: Vital Signs Date Time Temp Pulse Resp B/P (MAP) Pulse Ox O2 Delivery O2 Flow Rate FiO2 06/21/21 11:57 Ventilator 2.0 06/21/21 11:00 97.9 87 18 116/68 (84) 97 97.9 I & O 06/20/21 06/20/21 06/21/21 15:00 23:00 07:00 Output Total 2200 ml Balance -2200 ml Physical Exam Physical Exam: GENERAL: Alert, oriented x 3 female lying in bed comfortably no acute distress, looks a little better HEENT: Normocephalic, atraumatic. Anicteric sclerae. No thrush. Oral mucosa moist. NECK: Supple. No meningismus LUNGS: Clear. Right chest wall Port-A-Cath site clean. HEART: S1, S2, tachycardia. No murmurs. ABDOMEN: Nondistended, G-tube and J-tubes present. Mild irritation around both the tubes. G-tube draining greenish bilious fluid EXTREMITIES: No edema. DERMATOLOGIC: Warm, dry, no generalized rash. NEUROLOGIC: Alert, oriented x 3, grossly nonfocal, anxious. PSYCHIATRIC: Anxious, otherwise cooperative. General: Alert, Oriented X3, Cooperative, No acute distress Heart: Regular rate, Normal S1, Normal S2 Lungs: Clear Abdomen: Soft, Other (tubes in place) Extremities: No clubbing, No cyanosis Skin: No rashes, No breakdown Labs Labs: Laboratory Tests Test 06/21/21 05:00 White Blood Count 5.1 x10^3/uL (4.0-11.0) Red Blood Count 2.68 x10^6/uL (3.50-5.40) Hemoglobin 7.1 g/dL (12.0-15.5) Hematocrit 22.3 % (36.0-47.0) Mean Corpuscular Volume 83 fL (79-100) Mean Corpuscular Hemoglobin 26 pg (25-35) Mean Corpuscular Hemoglobin Concent 32 g/dL (31-37) Red Cell Distribution Width 15.9 % (11.5-14.5) Platelet Count 137 x10^3/uL (140-400) Neutrophils (%) (Auto) 66 % (31-73) Lymphocytes (%) (Auto) 23 % (24-48) Monocytes (%) (Auto) 9 % (0-9) Eosinophils (%) (Auto) 1 % (0-3) Basophils (%) (Auto) 0 % (0-3) Neutrophils # (Auto) 3.4 x10^3/uL (1.8-7.7) Lymphocytes # (Auto) 1.2 x10^3/uL (1.0-4.8) Monocytes # (Auto) 0.5 x10^3/uL (0.0-1.1) Eosinophils # (Auto) 0.1 x10^3/uL (0.0-0.7) Basophils # (Auto) 0.0 x10^3/uL (0.0-0.2) Sodium Level 139 mmol/L (136-145) Potassium Level 3.4 mmol/L (3.5-5.1) Chloride Level 105 mmol/L (98-107) Carbon Dioxide Level 20 mmol/L (21-32) Anion Gap 14 (6-14) Blood Urea Nitrogen 5 mg/dL (7-20) Creatinine 0.5 mg/dL (0.6-1.0) Estimated GFR (Cockcroft-Gault) 152.9 Glucose Level 64 mg/dL (70-99) Calcium Level 7.8 mg/dL (8.5-10.1) Magnesium Level 1.6 mg/dL (1.8-2.4) Assessment and Plan Assessmemt and Plan Problems Medical Problems: (1) Intractable abdominal pain Status: Acute (2) Intractable nausea and vomiting Status: Acute Comment Review of Relevant I have reviewed the following items lalo (where applicable) has been applied. Medications: Current Medications Medications (Trade) Dose Ordered Sig/Kel Route PRN Reason Start Time Stop Time Status Last Admin Dose Admin Enoxaparin Sodium (Lovenox 40mg Syringe) 40 mg Q24H SQ 06/20/21 16:00 06/20/21 16:13 Magnesium Sulfate 50 ml @ 25 mls/hr 1X ONCE IV 06/21/21 09:00 06/21/21 10:59 DC 06/21/21 11:57 Potassium Chloride/Water 100 ml @ 100 mls/hr Q1H IV 06/21/21 09:00 06/21/21 10:59 DC 06/21/21 11:18 Justifications for Admission Other Justification Fever DESIREE MCCALL MD Jun 21, 2021 12:30
[2021-06-21] MEDS: cefTRIAXone IV Push 2 GM VIAL. IVP SCH (14:41)
[2021-06-21 14:57] VITALS: BP 145/82
[2021-06-21] MEDS: diphenhydrAMINE 50 MG/ML VIAL IVP PRN (15:07)
[2021-06-21] MEDS: ENOXAPARIN 40 MG/0.4 ML SYRINGE. SQ SCH (17:19)
[2021-06-21 19:00] VITALS: BP 146/88
[2021-06-21] MEDS: METOCLOPRAMIDE HCL 10 MG/2 ML VIAL. IVP PRN (21:39)
[2021-06-22] MEDS: diphenhydrAMINE 50 MG/ML VIAL IVP PRN ×4 (00:38→21:33)
[2021-06-22] MEDS: HYDROmorphone 2 MG/ML INJ. IVP PRN ×8 (00:38→21:33)
[2021-06-22] MEDS: IV NORMAL SALINE 1000ML BAG 1,000 ML IV SCH ×3 (02:35→21:32)
[2021-06-22] MEDS: METOCLOPRAMIDE HCL 10 MG/2 ML VIAL. IVP PRN ×3 (07:03→18:19)
[2021-06-22 07:15] VITALS: BP 137/82
[2021-06-22] MEDS: PANTOPRAZOLE IV PUSH 40 MG VIAL. IVP SCH (07:53)
--- NOTE | 2021-06-22 09:46 | PDOC ---
SURGICAL PROGRESS NOTE DATE: 06/22/21 TIME: 09:41 Subjective resting g tube exchanged palliative discussion Vital Signs Vital Signs Date Time Temp Pulse Resp B/P (MAP) Pulse Ox O2 Delivery O2 Flow Rate FiO2 06/22/21 08:00 Nasal Cannula 2.0 06/22/21 07:33 20 100 06/22/21 07:15 97.9 91 137/82 (100) 97.9 I&O Intake and Output 06/22/21 07:00 Output Total 1200 ml Balance -1200 ml Output Urine Total 700 ml Gastric Drainage Total 500 ml # Voids 5 General: Cooperative, No acute distress Abdomen: Soft, Other (tubes in place) Labs Laboratory Tests Test 06/21/21 05:00 White Blood Count 5.1 x10^3/uL (4.0-11.0) Red Blood Count 2.68 x10^6/uL (3.50-5.40) Hemoglobin 7.1 g/dL (12.0-15.5) Hematocrit 22.3 % (36.0-47.0) Mean Corpuscular Volume 83 fL (79-100) Mean Corpuscular Hemoglobin 26 pg (25-35) Mean Corpuscular Hemoglobin Concent 32 g/dL (31-37) Red Cell Distribution Width 15.9 % (11.5-14.5) Platelet Count 137 x10^3/uL (140-400) Neutrophils (%) (Auto) 66 % (31-73) Lymphocytes (%) (Auto) 23 % (24-48) Monocytes (%) (Auto) 9 % (0-9) Eosinophils (%) (Auto) 1 % (0-3) Basophils (%) (Auto) 0 % (0-3) Neutrophils # (Auto) 3.4 x10^3/uL (1.8-7.7) Lymphocytes # (Auto) 1.2 x10^3/uL (1.0-4.8) Monocytes # (Auto) 0.5 x10^3/uL (0.0-1.1) Eosinophils # (Auto) 0.1 x10^3/uL (0.0-0.7) Basophils # (Auto) 0.0 x10^3/uL (0.0-0.2) Sodium Level 139 mmol/L (136-145) Potassium Level 3.4 mmol/L (3.5-5.1) Chloride Level 105 mmol/L (98-107) Carbon Dioxide Level 20 mmol/L (21-32) Anion Gap 14 (6-14) Blood Urea Nitrogen 5 mg/dL (7-20) Creatinine 0.5 mg/dL (0.6-1.0) Estimated GFR (Cockcroft-Gault) 152.9 Glucose Level 64 mg/dL (70-99) Calcium Level 7.8 mg/dL (8.5-10.1) Magnesium Level 1.6 mg/dL (1.8-2.4) Problem List Problems Medical Problems: (1) Intractable abdominal pain Status: Acute (2) Intractable nausea and vomiting Status: Acute Assessment/Plan supportive care palliative discussion abx round, chart < 15min Justicifation of Admission Dx: Justifications for Admission: Justification of Admission Dx: Yes Sepsis: Bacteremia HANNAH VALLE REPAIRER Jun 22, 2021 09:46
[2021-06-22] MEDS: ONDANSETRON PF 4 MG/2 ML VIAL. IVP PRN ×3 (09:47→21:32)
--- NOTE | 2021-06-22 10:21 | PDOC ---
Date of Service: DATE: 06/22/21 TIME: 10:18 Subjective: Subjective: Briefly awakens and then falls back asleep. Objective: Objective: D/w nurse - palliative care plans? Vital Signs: Vital Signs Date Time Temp Pulse Resp B/P (MAP) Pulse Ox O2 Delivery O2 Flow Rate FiO2 06/22/21 10:09 18 100 Nasal Cannula 2.0 06/22/21 07:15 97.9 91 137/82 (100) 97.9 Labs: BLOOD CULTURE Final GRAM NEGATIVE RODS SEEN IN 1 OF 4 BOTTLES, 2 SETS COLLECTED. CALLED TO Isreal/SUSANA GARCIA AT [phone] 06/21/21 BY DELLA. CULTURE SENT TO [facility] FOR FURTHER WORKUP. Imaging: IR 06/19 IMPRESSION: Fluoroscopically guided replacement of gastrostomy tube PE: GEN: NAD, resting LUNGS: clear, NC 2L HEART: RR ABD: G and J tubes, G tube drainage dark bilious NEURO/PSYCH: A & O 3, lethargic A/P: Chronic abd pain, n/v, complicated surgical history w/ G and J tubes on TPN Bacteremia -- Supportive care from GI standpoint. Justicifation of Admission Dx: Justifications for Admission: Justification of Admission Dx: Yes Sepsis: Bacteremia LIA RO Jun 22, 2021 10:21
[2021-06-22 11:00] VITALS: BP 125/74
--- NOTE | 2021-06-22 12:07 | PDOC ---
[employer] PROGRESS NOTE Date of Service DOS: DATE: 06/22/21 TIME: 12:06 Chief Complaint Chief Complaint Assessment/Plan Gram-negative bacteremia Acute on chronic pain syndrome Opioid dependence Pancytopenia History of idiopathic gastroparesis History of multiple abdominal surgery requiring 2 J-tube's and a G-tube Left chest port for antibiotic infusion and TPN Recovered Covid infection Admit to hospitalist service for further management ID consult for gram-negative bacteremia Hematology consult for pancytopenia Surgery consulted for GI and J-tube management GI consulted for gastroparesis Continue empiric IV antibiotics for now Continue TPN Nutrition consult Lovenox for DVT prophylaxis Protonix GI prophylaxis ADA diet CODE STATUS full code Discussed with RN and SW Disposition inpatient management as above DPOA: Mother Would consider palliative care for the patient as an option to control her chronic pain issues. Pt reports that she is tired of fighting all this and is interested in pursuing palliative care. She is receptive to that and I will try to see which companies are able to allow tube feedings at least in addition to receiving comfort measures. History of Present Illness History of Present Illness 21 year old female with history of hypertension, DVT on lovenox shots, idiopathic gastroparesis with multiple abdominal surgeries for G-tubes and J- tube placement and takedown's, Port-A-Cath for TPN infusions who presents to the ED today complaining of chronic abdominal pain with nausea and vomiting. Patient states she has been seen in the ED 2 times in the last 1weeks for the same complaint. this is her third visit. She states she was diagnosed with pneumonia on June 14, 2021 which is 3 days ago. She states she was put on azithromycin. She states she believes she has "bloodstream" infection. Patient arrived to the ED crying and complaining of pain and asking for narcotic medications. 06/18/2021 No acute events overnight. Patient seen and examined bedside. Patient complaining of 6 out of 10 pain. Still having nausea vomiting with any type of J-tube feeds according to the patient. Patient wishes to be evaluated palliative care. Pending meeting with that. Still continue with TPN and IV antibiotics for bacteremia. Patient's chart, labs, images were reviewed and discussed with RN 06/19/2021 No acute events overnight. Patient seen examined bedside. No changes in her current condition. So far blood cultures are negative to date. Currently on ceftriaxone and may consider transition to cefdinir per ID. Surgery wants to possibly replace the G-tube with help from interventional radiology. Hospice company attempt to contact mom last night with no success. We will continue to attempt to get palliative care started for patient 06/20/2021 No acute events overnight. Patient seen examined bedside. AF and VSS. Continue with IV antibiotics and TPN. Still unable to tolerate tube feedings. Patient's G-tube replaced. Pending hospice discussion. Patient's chart, labs, images were reviewed and discussed with RN 06/21/2021 No acute events overnight. Patient seen examined bedside. Patient having severe pain upon my encounter requiring IV Dilaudid. Gram-negative rods did grow from repeat blood cultures. Patient's chart, labs, images were reviewed and discussed with RN 06/22/2021 No acute events overnight. Patient seen and examined bedside. Plan for port removal. Pending palliative discussion. Patient is amenable to possibly consider palliative. On palliative she would receive IV antibiotics and TPN. Blood cultures are persistent bacteremia with Klebsiella pneumoniae. Pending sensitivities. Patient's chart, labs, images were reviewed and discussed with RN Vitals/I&O Vitals/I&O: Vital Signs Date Time Temp Pulse Resp B/P (MAP) Pulse Ox O2 Delivery O2 Flow Rate FiO2 06/22/21 11:00 97.7 99 18 125/74 (91) 98 Nasal Cannula 2.0 97.7 I & O 06/21/21 06/21/21 06/22/21 15:00 23:00 07:00 Output Total 1200 ml Balance -1200 ml Physical Exam Physical Exam: GENERAL: Alert, oriented x 3 female lying in bed comfortably no acute distress, looks a little better HEENT: Normocephalic, atraumatic. Anicteric sclerae. No thrush. Oral mucosa moist. NECK: Supple. No meningismus LUNGS: Clear. Right chest wall Port-A-Cath site clean. HEART: S1, S2, tachycardia. No murmurs. ABDOMEN: Nondistended, G-tube and J-tubes present. Mild irritation around both the tubes. G-tube draining greenish bilious fluid EXTREMITIES: No edema. DERMATOLOGIC: Warm, dry, no generalized rash. NEUROLOGIC: Alert, oriented x 3, grossly nonfocal, anxious. PSYCHIATRIC: Anxious, otherwise cooperative. General: Cooperative, No acute distress Heart: Regular rate, Normal S1, Normal S2 Lungs: Clear Abdomen: Soft, Other (tubes in place) Extremities: No clubbing, No cyanosis Skin: No rashes, No breakdown Assessment and Plan Assessmemt and Plan Problems Medical Problems: (1) Intractable abdominal pain Status: Acute (2) Intractable nausea and vomiting Status: Acute Comment Review of Relevant I have reviewed the following items lalo (where applicable) has been applied. Justifications for Admission Other Justification Fever DESIREE MCCALL MD Jun 22, 2021 12:07
[2021-06-22] MEDS: cefTRIAXone IV Push 2 GM VIAL. IVP SCH (12:26)
[2021-06-22] MEDS: ENOXAPARIN 40 MG/0.4 ML SYRINGE. SQ SCH (14:28)
--- NOTE | 2021-06-22 14:43 | NUR ---
SW following. Discussed with RN, per RN pt wanting palliative care but had made some comments about wanting her port removed and replaced with a PICC so she can get the IV pain meds at home. NIXON verified with [facility] that IV pain meds cannot be given at home with hospice nor with palliative care. Dr. Blue discussing with surgery about having the port removed anyway. Pt can have TPN on palliative care but not on hospice care. NIXON spoke with Kristyn (ph: [phone]) at [facility] - she planned on phoning the pt to discuss hospice vs palliative again and just make sure pt doesn't have any further questions. SW awaiting decision on abx, port/ picc etc. NIXON will continue to follow.
[2021-06-22 15:16] VITALS: BP 147/87
[2021-06-22 19:57] VITALS: BP 111/64
[2021-06-22 23:05] VITALS: BP 126/80
[2021-06-23] MEDS: METOCLOPRAMIDE HCL 10 MG/2 ML VIAL. IVP PRN ×4 (00:36→20:01)
[2021-06-23] MEDS: HYDROmorphone 2 MG/ML INJ. IVP PRN ×8 (00:36→23:22)
[2021-06-23] MEDS: ONDANSETRON PF 4 MG/2 ML VIAL. IVP PRN ×4 (03:52→23:21)
[2021-06-23] MEDS: diphenhydrAMINE 50 MG/ML VIAL IVP PRN ×4 (03:53→23:21)
[2021-06-23 07:00] VITALS: BP 150/82
--- NOTE | 2021-06-23 10:03 | PDOC ---
SURGICAL PROGRESS NOTE DATE: 06/23/21 TIME: 10:01 Subjective resting port removal today picc, tpn, palliative care pending Vital Signs Vital Signs Date Time Temp Pulse Resp B/P (MAP) Pulse Ox O2 Delivery O2 Flow Rate FiO2 06/23/21 07:00 97.8 80 17 150/82 (104) 98 Nasal Cannula 2.0 97.8 I&O Intake and Output 06/23/21 07:00 Intake Total 0 ml Output Total 2100 ml Balance -2100 ml Intake Oral 0 ml Output Urine Total 2100 ml General: Alert, Oriented X3, Cooperative Abdomen: Soft, Other (tubes) Problem List Problems Medical Problems: (1) Intractable abdominal pain Status: Acute (2) Intractable nausea and vomiting Status: Acute Assessment/Plan supportive care Justicifation of Admission Dx: Justifications for Admission: Justification of Admission Dx: Yes Sepsis: Bacteremia HANNAH VALLE APRN Jun 23, 2021 10:03
[2021-06-23] MEDS: PANTOPRAZOLE IV PUSH 40 MG VIAL. IVP SCH (10:15)
--- NOTE | 2021-06-23 10:28 | PDOC ---
Date of Service: DATE: 06/23/21 TIME: 10:25 Subjective: Subjective: Nausea controlled, no stool in a few days, says suppositories have helped in the past. Plans to remove port and get PICC. Objective: Vital Signs: Vital Signs Date Time Temp Pulse Resp B/P (MAP) Pulse Ox O2 Delivery O2 Flow Rate FiO2 06/23/21 10:15 98 Nasal Cannula 2.0 06/23/21 07:00 97.8 80 17 150/82 (104) 97.8 PE: GEN: NAD LUNGS: CTAB HEART: RRR ABD: G tube hooked to suction - bilious NEURO/PSYCH: A & O 3 A/P: Chronic abd pain and n/v Bacteremia -- Plans as above, can add suppositories. Justicifation of Admission Dx: Justifications for Admission: Justification of Admission Dx: Yes Sepsis: Bacteremia LIA RO Jun 23, 2021 10:28
[2021-06-23] MEDS ORDERED: BISACODYL 10 MG SUPP.RECT. PR PRN (10:30)
[2021-06-23 11:00] VITALS: BP 125/75
[2021-06-23] MEDS ORDERED: LIDOCAINE 1%/EPI 1:100,000 20 ML VIAL. ONE (12:29)
[2021-06-23] MEDS ORDERED: MIDAZOLAM HCL/PF 5 MG/5 ML VIAL. ONE (12:33)
[2021-06-23] MEDS ORDERED: fentaNYL PF VIAL 250 MCG/5 ML VIAL ONE (12:34)
[2021-06-23] MEDS: IV NORMAL SALINE 1000ML BAG 1,000 ML IV SCH (12:36)
[2021-06-23] MEDS ORDERED: fentaNYL PF VIAL 250 MCG/5 ML VIAL IV ONE (12:45)
[2021-06-23] MEDS ORDERED: MIDAZOLAM HCL/PF 5 MG/5 ML VIAL. IV ONE (12:45)
[2021-06-23] MEDS ORDERED: LIDOCAINE 1%/EPI 1:100,000 20 ML VIAL. INJ ONE (12:45)
[2021-06-23] MEDS ORDERED: HEPARIN PF 500 UNIT/5 ML DISP.SYRIN. IVP ONE ×2 (13:01→13:45)
--- NOTE | 2021-06-23 13:07 | PDOC ---
[employer] PROGRESS NOTE Date of Service DOS: DATE: 06/23/21 TIME: 13:05 Chief Complaint Chief Complaint Assessment/Plan Persistent Klebsiella pneumoniae bacteremia Acute on chronic pain syndrome Opioid dependence Pancytopenia History of idiopathic gastroparesis History of multiple abdominal surgery requiring 2 J-tube's and a G-tube Left chest port for antibiotic infusion and TPN Recovered Covid infection Admit to hospitalist service for further management ID consult for gram-negative bacteremia Hematology consult for pancytopenia Surgery consulted for GI and J-tube management GI consulted for gastroparesis Continue empiric IV antibiotics for now Continue TPN Nutrition consult Lovenox for DVT prophylaxis Protonix GI prophylaxis ADA diet CODE STATUS full code Discussed with RN and SW Disposition inpatient management as above DPOA: Mother Would consider palliative care for the patient as an option to control her chronic pain issues. Pt reports that she is tired of fighting all this and is interested in pursuing palliative care. She is receptive to that and I will try to see which companies are able to allow tube feedings at least in addition to receiving comfort measures. History of Present Illness History of Present Illness 21 year old female with history of hypertension, DVT on lovenox shots, idiopathic gastroparesis with multiple abdominal surgeries for G-tubes and J- tube placement and takedown's, Port-A-Cath for TPN infusions who presents to the ED today complaining of chronic abdominal pain with nausea and vomiting. Patient states she has been seen in the ED 2 times in the last 1weeks for the same complaint. this is her third visit. She states she was diagnosed with pneumonia on June 14, 2021 which is 3 days ago. She states she was put on azithromycin. She states she believes she has "bloodstream" infection. Patient arrived to the ED crying and complaining of pain and asking for narcotic medications. 06/18/2021 No acute events overnight. Patient seen and examined bedside. Patient complaining of 6 out of 10 pain. Still having nausea vomiting with any type of J-tube feeds according to the patient. Patient wishes to be evaluated palliative care. Pending meeting with that. Still continue with TPN and IV antibiotics for bacteremia. Patient's chart, labs, images were reviewed and discussed with RN 06/19/2021 No acute events overnight. Patient seen examined bedside. No changes in her current condition. So far blood cultures are negative to date. Currently on ceftriaxone and may consider transition to cefdinir per ID. Surgery wants to possibly replace the G-tube with help from interventional radiology. Hospice company attempt to contact mom last night with no success. We will continue to attempt to get palliative care started for patient 06/20/2021 No acute events overnight. Patient seen examined bedside. AF and VSS. Continue with IV antibiotics and TPN. Still unable to tolerate tube feedings. Patient's G-tube replaced. Pending hospice discussion. Patient's chart, labs, images were reviewed and discussed with RN 06/21/2021 No acute events overnight. Patient seen examined bedside. Patient having severe pain upon my encounter requiring IV Dilaudid. Gram-negative rods did grow from repeat blood cultures. Patient's chart, labs, images were reviewed and discussed with RN 06/22/2021 No acute events overnight. Patient seen and examined bedside. Plan for port removal. Pending palliative discussion. Patient is amenable to possibly consider palliative. On palliative she would receive IV antibiotics and TPN. Blood cultures are persistent bacteremia with Klebsiella pneumoniae. Pending sensitivities. Patient's chart, labs, images were reviewed and discussed with RN 06/23/2021 No acute events overnight. Patient seen examined bedside. Blood cultures are persistently growing Klebsiella. We will plan for port removal today and possible other ways of central line placement. Possibly PICC. Patient has agreed to go with palliative care so she can continue with IV antibiotics and IV pain control. Anticipate discharge in the next 24 hours. Patient's chart, labs, images were reviewed and discussed with RN Vitals/I&O Vitals/I&O: Vital Signs Date Time Temp Pulse Resp B/P (MAP) Pulse Ox O2 Delivery O2 Flow Rate FiO2 06/23/21 11:00 98.1 67 17 125/75 (92) 98 Nasal Cannula 2.0 98.1 I & O 06/22/21 06/22/21 06/23/21 15:00 23:00 07:00 Intake Total 0 ml Output Total 1100 ml 1000 ml Balance -1100 ml -1000 ml Physical Exam Physical Exam: GENERAL: Alert, oriented x 3 female lying in bed comfortably no acute distress, looks a little better HEENT: Normocephalic, atraumatic. Anicteric sclerae. No thrush. Oral mucosa moist. NECK: Supple. No meningismus LUNGS: Clear. Right chest wall Port-A-Cath site clean. HEART: S1, S2, tachycardia. No murmurs. ABDOMEN: Nondistended, G-tube and J-tubes present. Mild irritation around both the tubes. G-tube draining greenish bilious fluid EXTREMITIES: No edema. DERMATOLOGIC: Warm, dry, no generalized rash. NEUROLOGIC: Alert, oriented x 3, grossly nonfocal, anxious. PSYCHIATRIC: Anxious, otherwise cooperative. General: Alert, Oriented X3, Cooperative Heart: Regular rate, Normal S1, Normal S2 Lungs: Clear Abdomen: Soft, Other (tubes) Extremities: No clubbing, No cyanosis Skin: No rashes, No breakdown Assessment and Plan Assessmemt and Plan Problems Medical Problems: (1) Intractable abdominal pain Status: Acute (2) Intractable nausea and vomiting Status: Acute Comment Review of Relevant I have reviewed the following items lalo (where applicable) has been applied. Justifications for Admission Other Justification Fever DESIREE MCCALL MD Jun 23, 2021 13:07
[2021-06-23 13:57] VITALS: BP 137/61
[2021-06-23] MEDS: cefTRIAXone IV Push 2 GM VIAL. IVP SCH (14:10)
[2021-06-23 15:00] VITALS: BP 116/60
[2021-06-23] MEDS: ENOXAPARIN 40 MG/0.4 ML SYRINGE. SQ SCH (16:32)
[2021-06-23 19:33] VITALS: BP 132/82
[2021-06-23 23:43] VITALS: BP 122/67
[2021-06-24] MEDS: IV NORMAL SALINE 1000ML BAG 1,000 ML IV SCH (01:20)
[2021-06-24] MEDS: METOCLOPRAMIDE HCL 10 MG/2 ML VIAL. IVP PRN (02:59)
[2021-06-24] MEDS: HYDROmorphone 2 MG/ML INJ. IVP PRN ×3 (03:00→09:52)
[2021-06-24] MEDS: ONDANSETRON PF 4 MG/2 ML VIAL. IVP PRN (06:29)
[2021-06-24] MEDS: diphenhydrAMINE 50 MG/ML VIAL IVP PRN (06:29)
[2021-06-24 07:00] VITALS: BP 118/71
[2021-06-24] MEDS: PANTOPRAZOLE IV PUSH 40 MG VIAL. IVP SCH (07:57)
[2021-06-24] MEDS ORDERED: FENT1PAT19 TP (09:47)
[2021-06-24] MEDS ORDERED: AMOX1TAB58 PO (09:47)
--- NOTE | 2021-06-24 11:15 | NUR ---
Discharge Note: PT DISCHARGED HOME WITH PALLATIVE CARE. PT LEFT FACILITY VIA PRIVATE VEHICLE WITH PARENTS AT 1115. PT CENTRAL LINE DRESSING CHANGED PRIOR TO DISCHARGE. PT STABLE AND ALERT UPON DISCHARGE. PT EDUCATED ABOUT DISCHARGE INSTRUCTIONS, DISCHARGE MEDICATIONS, AND FOLLOW-UP CARE INSTRUCTIONS. SOCIAL WORK NOTIFIED TO NOTIFY [employer] TO RESTART HOME TPN. PT VOICED NO CONCERNS AT THIS TIME. PT EDUCATED ABOUT FENTANYL PATCH USE/INSTRUCTIONS AND PO ATB THERAPY. PT LEFT WITH ALL PERSONAL BELONGINGS. SUNITHA SCHULTZ Discharge instructions and discharge home medications reviewed with Patient and a copy given. All questions have been answered and understanding verbalized. The following instructions and handouts were given:
--- NOTE | 2021-06-24 11:28 | SNU/HH DC ---
DISCHARGE WITH HOME HEALTH DISCHARGE INFORMATION: Final Diagnosis: Problems Medical Problems: (1) Intractable abdominal pain Status: Acute (2) Intractable nausea and vomiting Status: Acute Condition on Discharge: Stable CODE STATUS: Code Status: Full HOME HEALTH: Face to Face: I certify this patient is under my care and that I, or a nurse practitioner or physician's photo studio assistant working with me, had a face to face encounter that meets the physician face to face encounter requirements with this patient on []. Medical Complications: Other (Severe gastroparesis) Care Home For: Assess Cardiopulm Status RN For Eval/Treatment: Yes Physical Therapy For: Evalulation/Treatment Occupational Therapy For: Evaluation/Treatment Home Health Aide For: Self-care POLITICAL CONSULTANT For: Community Resources Pt Meets Homebound Status: Poor coordination w/ amb. POST DISCHARGE ORDERS: Activity Instructions for Disc: No restrictions, Resume previous activity, Activity as tolerated Weight Bearing Status after Di: No restrictions, Full weight bearing, As tolerated Bathing Instructions: No Tub Bath until see DIET AFTER DISCHARGE: Cardiac Wound/Incision Care: No wound care needed CHECKS AFTER DISCHARGE: Checks after discharge: Check your Temp as needed Comment: Power Line FOLLOW-UP: Follow up with: BERNA NAYLOR Follow Up With: PRIMARY CARE PROVIDER IN 1 WEEK TREATMENT/EQUIPMENT ORDERS: Adaptive Equipment Issued: None Infusion Equipment, home use: PICC Line CERTIFICATION STATEMENT: Certification Statement: Certification Statement: Based on the above finding, I certify that this patient is confined to the home and needs intermittent detention care, physical therapy and/or speech therapy, or continues to need occupational therapy.~ This patient is under my care, and I have initiated the establishment of the plan of care.~ This patient will be followed by myself or a community physician who will periodically review the plan of care. Home Meds Active Scripts Amoxicillin/Potassium Clav (AUGMENTIN 500-125 TABLET) 1 Each Tablet, 1 TAB PO BID for . for 7 Days, #14 TAB 0 Refills Prov:CASTLE,NIAL K III DO 06/24/21 Fentanyl (FENTANYL 75mcg/hr) 1 Each Patch.td72, 1 PATCH TP Q3DAYS for ., #10 PATCH Prov:CASTLE,NIAL K III DO 06/24/21 Azithromycin (AZITHROMYCIN ORAL SUSP) 200 Mg/5 Ml Susp.recon, 2.25 ML PO DAILY, #25 ML 500ml PO x day 1 250ml PO x day 2-5 Disp QS No refills Prov:MELISSA CASIANO I DO 06/14/21 Terbinafine Hcl (TERBINAFINE HCL) 30 Gm Cream..g., 1 JUSTYN TP BID, #1 BOX Apply cream twice daily to affected areas for 2 weeks. Prov:COLTON SILVERIO 06/13/21 Hydrocodone Bit/Acetaminophen (HYDROCODONE-APAP 7.5-325/15 SOLN ) 15 Ml Solution, 15 ML PO PRN Q6HRS PRN for PAIN, #225 ML 0 Refills Prov:KRISTEN ESPAÑA MD 03/05/21 Scopolamine (TRANSDERM-SCOP) 1 Each Patch.td72, 1 PATCH TP Q3DAYS, #4 PATCH Prov:LEXII CARRANZA DO 02/24/21 [Tpn Per Pharmacy] 1 EACH EACH No Conflict Check, 1 EACH MC PRN DAILY PRN for SEE COMMENTS for 30 Days, #60 Prov:JEFFERSON XAVIER MD 01/25/21 Ondansetron Hcl/Pf (ONDANSETRON HCL 4 MG/2 ML VIAL) 4 Mg/2 Ml Vial, 4 MG IVP PRN Q6HRS PRN for NAUSEA/VOMITING 1ST CHOICE for 30 Days, #90 EACH Prov:JEFFERSON XAVIER MD 11/30/19 Bisacodyl (BISACODYL) 10 Mg Supp.rect, 10 MG WI PRN DAILY PRN for CONSTIPATION, 1sT CHOICE for 30 Days, #30 SUPP.RECT Prov:JEFFERSON XAVIER MD 11/30/19 Reported Medications Valproate Sodium (VALPROIC ACID) 500 Mg/10 Ml Solution, 500 MG JT BID for TREMORS/SHAKING, MISC 11/14/20 Metoprolol Tartrate (Metoprolol Tartrate) 75 Mg Tablet, 25 MG PO BID for HEADACHES, TAB 11/14/20 Hyoscyamine Sulfate (LEVBID) 0.375 Mg Tab.er.12h, 0.375 MG JT BID for REFLUX, TAB.SR 11/14/20 Famotidine (FAMOTIDINE) 40 Mg Tablet, 40 MG IV DAILY for REFLUX, TAB 11/14/20 Tiotropium [place] (SPIRIVA) 18 Mcg Cap.w.dev, 2 INH IH BID for ASTHMA, #1 INH 0 Refills 11/14/20 Fluticasone/Vilanterol (Breo Ellipta 200-25 Mcg INH) 1 Each Blst.w.dev, 1 PUFF IH BID for ASTHMA, EACH 11/14/20 Docusate Sodium (DOCUSATE SODIUM) 100 Mg Capsule, 1 CAP PO DAILY for c onstipation for 30 Days, #30 CAP 0 Refills 06/25/20 Fremanezumab-Vfrm (Ajovy Autoinjector) 225 Mg/1.5 Ml Auto.injct, 225 MG SQ QMONTH for migraine, SYR 05/23/20 Tizanidine Hcl (TIZANIDINE HCL) 2 Mg Capsule, 2 MG JT Q8HRS PRN for MUSCLE SPASMS, CAP 05/23/20 Gabapentin (GABAPENTIN) 600 Mg Tablet, 300 MG JT TID for NEUROGENIC PAIN, TAB 05/21/20 Midodrine Hcl (MIDODRINE HCL) 5 Mg Tablet, 5 MG SL BID for Ortho Hypo, TAB 05/21/20 Magnesium Hydroxide (MILK OF MAGNESIA) 400 Mg/5 Ml Oral.susp, 400 MG JT PRN DAILY for constipation MDD 400mg, MISC 02/20/20 Mirtazapine (MIRTAZAPINE) 30 Mg Tab.rapdis, 45 MG PO QHS for depression for 30 Days, #45 TAB 0 Refills 02/20/20 Olopatadine HCl (Olopatadine HCl) 5 Ml Drops, 0.1 % OP PRN DAILY PRN for eye relief, DROP 08/20/19 Cholecalciferol (Vitamin D3) (VITAMIN D3) 4,000 Unit Capsule, 2000 UNIT JT HS for supplement, CAP 08/20/19 Levocetirizine Dihydrochloride (XYZAL) 5 Mg Tablet, 10 MG GT BID for allergies, TAB 08/20/19 Albuterol Sulfate (Proair Hfa) 8.5 Gm Hfa.aer.ad, 2 PUFF IH PRN Q4-6HRS PRN for wheezing for 21 Days, #1 INHALER 0 Refills 08/20/19 Ipratropium [place] (IPRATROPIUM BROMIDE) 30 Ml [place], 1 SPRAY NS BID for allergies, SPRAY 08/20/19 Ipratropium/Albuterol Sulfate (DUONEB 0.5-3(2.5) MG/3 ML) 3 Ml Ampul.neb, 3 ML NEB PRN QID PRN for asthma, EACH 08/20/19 Montelukast Sodium (MONTELUKAST SODIUM TABLET ) 10 Mg Tablet, 10 MG PO DAILY PRN for asthma, TAB 0 Refills 08/20/19 Multivitamin (MULTI VITAMIN DAILY) 1 Each Tablet, 1 EACH GT DAILY for supplement, TAB 08/20/19 LALITHA WEBB III DO Jun 24, 2021 11:28
--- NOTE | 2021-06-24 12:15 | DS ---
DATE OF DISCHARGE: 06/24/2021 ADMISSION DIAGNOSES: Intractable nausea, vomiting, Gram-negative bacteremia. DISCHARGE DIAGNOSES: Severe gastroparesis, history of multiple ostomies including PEG tube and two J tubes, status post port removal with replacement with a [place], resolving Klebsiella pneumoniae, chronic pain syndrome, opioid dependence, pancytopenia, idiopathic gastroparesis, history of recent COVID-19, history of multiple abdominal surgeries, resolving Gram-negative bacteremia. CONSULTS: Infectious Disease, GI and General Surgery. HOSPITAL COURSE: The patient is a pleasant, younger female, well known to our service, who has severe gastroparesis and multiple ostomies, basically admitted her with Gram-negative bacteremia. We gave the patient IV antibiotics and we placed a central line. Continued her pain medicines. The above consults were obtained and her long-term prognosis is somewhat poor given multiple admissions and multiple medical issues. [facility] has gotten involved. They are wanting to get her home with home palliative care. We will discharge to home today with home palliative care. DISPOSITION: Home with home palliative care. ACTIVITY: As tolerated. DIET: PEG feeds. DISCHARGE MEDICATIONS: Please see the MRAD. Home TPN, Augmentin 500 p.o. b.i.d., fentanyl patches, albuterol, azithromycin, vitamins, fluticasone, gabapentin 300 and we will continue comfort meds per palliative care. Total time [address]: Abdon TID: [id number]
--- NOTE | 2021-06-24 12:36 | RAD ---
Procedure: 1. Removal of right internal jugular power port 2. Placement of a right internal jugular tunneled central line without port through new, separate acc ess Clinical Indication: Suspected infected port. History of multiple ports, multiple infections. Sedation: Conscious sedation was administered for 56 minutes. The patient was monitored by a [facility] independent observer throughout the time of sedation. Please refer to the medical record for exac t doses of medications utilized to achieve moderate sedation. Fluoroscopy time: 1 minute Dose area product 2 Naik 7 sq m Sterility: All elements of maximal sterile barrier technique including the use of a cap, mask, steril e gown, sterile gloves, large sterile sheet, appropriate hand hygiene, and 2% chlorhexidine for cutan eous antisepsis (or acceptable alternative antiseptic per current guidelines) were followed for this procedure. Consent: The procedure was explained in its entirety to the patient or the patients designated repres entative by a member of the treatment team, including a discussion of the risks, benefits and commonl y accepted alternatives to the procedure, as well as the expected consequences of no therapy whatsoev er. Discussion of the risks included, but was not limited to, those that are most frequent and thos e that are rare but possibly severe or life-threatening, as well as the possibility of unforeseen com plications. Technique and Findings: Following informed consent, the patient was prepped and draped in the usual s terile fashion. Following a small incision, the port reservoir and catheter were removed intact. The wound was closed in layers using 4-0 Vicryl suture. Ultrasound interrogation of the right neck revealed patency and compressibility of the right internal jugular vein. A 21-gauge micropuncture was then used to gain access to this vein under ultrasound g uidance. A hard copy ultrasound image was recorded. The needle was exchanged over a wire for a 4 Fr ench sheath which was used to guide an Amplatz wire into the IVC. The skin over the right anterior chest wall was copiously anesthetized with 1% Lidocaine plus Epineph rine and a small dermatotomy was made. A power line tunneled central line was then tunneled subcutane ously towards the neck dermatotomy and deployed through a large caliber peel-away sheath under fluoro scopic guidance such that the distal tip resided in the mid right atrium. Catheter was found to flush and aspirate normally.. The neck dermatotomy was closed with Dermabond. Complications: No immediate complications were identified Impression: 1. Removal of right internal jugular power port. Port and catheter were sent for culture 2. Placement of a right internal jugular tunneled central line, via a new, distinct access and tunnel ing site Electronically signed by: Flo Cartwright MD (06/24/2021 12:30 PM) [id number]
--- NOTE | 2021-06-24 14:14 | NUR ---
SW following. Discussed with RN, pt discharged home with [facility] and [facility] for TPN. Clinicals and orders faxed to both [facility] and [facility]. No further SW needs.
== END 2021-06-24 11:21 | disposition home or self-care (01) | DRG 871 ==
LOC: ER 12:45 → 5 NORTH 19:15
PROVIDERS: ADMIT Internal Medicine; ATTEND Internal Medicine
PROC: 0DP6XUZ Removal of Feeding Device from Stomach, External Approach (ICD-10-PCS; principal; 2021-06-16)
PROC: 0DH63UZ Insertion of Feeding Device into Stomach, Percutaneous Approach (ICD-10-PCS; 2021-06-16)
PROC: 02PY33Z Removal of Infusion Device from Great Vessel, Percutaneous Approach (ICD-10-PCS; 2021-06-16)
PROC: 02H633Z Insertion of Infusion Device into Right Atrium, Percutaneous Approach (ICD-10-PCS; 2021-06-16)
PROC: 0JH63XZ Insertion of Tunneled Vascular Access Device into Chest Subcutaneous Tissue and Fascia, Percutaneous Approach (ICD-10-PCS; 2021-06-16)
PROC: B5181ZA Fluoroscopy of Superior Vena Cava using Low Osmolar Contrast, Guidance (ICD-10-PCS; 2021-06-16)
DX: A41.59 Other Gram-negative sepsis (principal); U07.1 COVID-19; J12.82 Pneumonia due to coronavirus disease 2019; J15.0 Pneumonia due to Klebsiella pneumoniae; B49 Unspecified mycosis; D61.818 Other pancytopenia; N39.0 Urinary tract infection, site not specified; B95.7 Other staphylococcus as the cause of diseases classified elsewhere; B96.89 Other specified bacterial agents as the cause of diseases classified elsewhere; G43.909 Migraine, unspecified, not intractable, without status migrainosus; G89.4 Chronic pain syndrome; I10 Essential (primary) hypertension; J45.909 Unspecified asthma, uncomplicated; K31.84 Gastroparesis; K59.09 Other constipation; Z51.5 Encounter for palliative care; Z82.3 Family history of stroke; Z82.49 Family history of ischemic heart disease and other diseases of the circulatory system; Z83.3 Family history of diabetes mellitus; Z86.14 Personal history of Methicillin resistant Staphylococcus aureus infection; Z86.73 Personal history of transient ischemic attack (TIA), and cerebral infarction without residual deficits; Z88.0 Allergy status to penicillin; Z88.2 Allergy status to sulfonamides; Z90.49 Acquired absence of other specified parts of digestive tract; Z93.4 Other artificial openings of gastrointestinal tract status; F32.A Depression, unspecified; F41.9 Anxiety disorder, unspecified; K21.9 Gastro-esophageal reflux disease without esophagitis
CPT/HCPCS: 36415; 36558; 36590; 49450; 74022; 74177; 76937; 77001; 80048; 80053; 80307; 81001; 83605; 83690; 83735; 84145; 85007; 85025; 87040; 87071; 87077; 87086; 87186; 87428; 96361; 96374; 96375; 96376; 99152; 99153; B4087; C1751; C1769; C1892; C9113; J0692; J0696; J1170; J1200; J1642; J1650; J1956; J2060; J2250; J2405; J2765; J3010; J3370; J3475; J3480; J3490; J7030; J7040; Q9966; Q9967; U0003; U0005; 99285-25; G0378

== ENCOUNTER → 2021-06-29 | Outpatient (CLI) | payer OTHER, MEDICARE, MEDICAID ==
[~2021-06-29] MED LIST changes: +AMOX1TAB58 PO; +FENT1PAT19 TP
[2021-06-29 08:15] VITALS: BP 115/56
[2021-06-29 09:17] LABS: BASO % 1 % (0-3); EOS # 0.1 x10^3/uL (0.0-0.7); EOS % 2 % (0-3); HEMATOCRIT 27.3 % (36.0-47.0); HEMOGLOBIN 8.7 g/dL (12.0-15.5); LYMPH # 1.5 x10^3/uL (1.0-4.8); LYMPH % 45 % (24-48); MEAN CORPUSCULAR HEMOGLOBIN 26 pg (25-35); MEAN CORPUSCULAR HGB CONC 32 g/dL (31-37); MEAN CORPUSCULAR VOLUME 82 fL (79-100); MONO # 0.3 x10^3/uL (0.0-1.1); MONO % 8 % (0-9); NEUT # 1.5 x10^3/uL (1.8-7.7); NEUT % 44 % (31-73); PLATELET COUNT 219 x10^3/uL (140-400); RED BLOOD COUNT 3.34 x10^6/uL (3.50-5.40); RED CELL DISTRIBUTION WIDTH 17.4 % (11.5-14.5); WHITE BLOOD COUNT 3.4 x10^3/uL (4.0-11.0)
[2021-06-29 09:44] LABS: CALCIUM 7.5 mg/dL (8.5-10.1); CREATININE 0.6 mg/dL (0.6-1.0); GFR 123.9; POTASSIUM 4.5 mmol/L (3.5-5.1)
[2021-06-29 10:01] LABS: ALBUMIN 3.3 g/dL (3.4-5.0); TOTAL BILIRUBIN 0.2 mg/dL (0.2-1.0); TOTAL PROTEIN 6.7 g/dL (6.4-8.2)
== END ==
LOC: ONCLAB 08:47
PROVIDERS: ATTEND Internal Medicine Hematology & Oncology
DX: D64.9 Anemia, unspecified (principal)
CPT/HCPCS: 36415; 80053; 82728; 83540; 83550; 85025

== ENCOUNTER 2021-07-14 09:28 | Day surgery (SDC) | payer OTHER, MEDICARE, MEDICAID ==
[~2021-07-14] VITALS: Ht 170.2 cm; Wt 81.6 kg
[~2021-07-14 09:28] MED LIST changes: +IV RINGERS,LACTATED 1000ML 1,000 ML IV SCH; +MORPHINE SULFATE 2 MG/ML INJ. IVP PRN; +PROCHLORPERAZINE 10 MG/2 ML VIAL. IVP PRN; +fentaNYL PF VIAL 100 MCG/2 ML VIAL IVP PRN
[2021-07-14] MEDS ORDERED: LIDOCAINE 1% Multi-Dose 20 ML VIAL. ONE (09:31)
[2021-07-14 10:03] VITALS: BP 130/74
[2021-07-14] MEDS ORDERED: UMEC62.5 IH (10:16)
[2021-07-14] MEDS ORDERED: FLUT1DIS3 IH (10:16)
[2021-07-14] MEDS ORDERED: DIPH25CA58 PO (10:19)
[2021-07-14] MEDS ORDERED: DIPH25CA58 IVP (10:19)
[2021-07-14] MEDS ORDERED: SCOPOLAMINE 1.5MG PATCH. TD ONE (10:30)
--- NOTE | 2021-07-14 11:37 | PDOC ---
SURGICAL PROGRESS NOTE DATE: 07/14/21 TIME: 11:33 Subjective Pre-Op Note 21 yo F with bowel dysmotility Requests to have one J-tube removed, requests LUQ one at this time. Marked with pt in preop. Pt requests change out of G-tube and remaining J-tube. TO OR for above. R/R/B/A d/w pt and pt's supportive mother. Risks, including, but not limited to: bleeding, infection, damage to surrounding structures, risk of anesthesia, risk of recurrent issues. They appear to understand, their questions are answered and they elect to proceed. Office note H&P reviewed and unchanged except as above. Vital Signs Vital Signs Date Time Temp Pulse Resp B/P (MAP) Pulse Ox O2 Delivery O2 Flow Rate FiO2 07/14/21 10:03 98.8 120 20 98 98.8 07/14/21 09:58 130/74 Room Air Labs Laboratory Tests Test 07/14/21 09:49 Bedside Urine HCG, Qualitative Hcg negative (Negative) Laboratory Tests Test 07/14/21 09:49 Bedside Urine HCG, Qualitative Hcg negative (Negative) Justicifation of Admission Dx: Justifications for Admission: Justification of Admission Dx: Yes Sepsis: Bacteremia TORIE MILLER MD Jul 14, 2021 11:37
[2021-07-14] MEDS ORDERED: SUGAMMADEX SODIUM 200 MG/2 ML VIAL. IVP ONE (12:00)
[2021-07-14] MEDS ORDERED: IOHEXOL 300 MG/ML 50 ML VIAL. ONE ×2 (12:09→12:17)
[2021-07-14] MEDS ORDERED: HALOPERIDOL LACTATE 5 MG/ML VIAL. ONE (12:32)
[2021-07-14] MEDS ORDERED: HYDROmorphone 2 MG/ML INJ. ONE (12:39)
[2021-07-14] MEDS: HYDROmorphone 2 MG/ML INJ. IVP PRN ×4 (12:41→14:29)
[2021-07-14 13:30] VITALS: BP 124/63
--- NOTE | 2021-07-14 18:47 | PDOC4 ---
OPERATIVE NOTE Date: Date: Jul 14, 2021 Pre-Op Diagnosis: J-tube pain Post-Op Diagnosis: same Procedure Performed: Removal of LUQ J-tube, change of Gastrostomy and RUQ J-tube Surgeon: Tushar Miller Anesthesia Type: GETA Blood Loss: minimal Specimans Obtained: G-tube, J-tube J-tube Findings: normal anatomy, intact G-tube and J-tubes Complications: none Operative Note: After obtaining informed consent, patient was taken to OR, induced under GETA and prepped in the usual fashion. LUQ J-tube was removed without difficulty and dressing placed. Epigastric G-tube was removed without difficulty. This was replaced with 20F G-tube, balloon inflated and placement confirmed with contrast under c-arm. RUQ J-tube was removed without difficulty. This was replaced with 20 F J-tube, balloon inflated and position confirmed with contrast under C-arm. Patient tolerated procedure well and sent to PACU in stable condition. All counts are correct. TORIE MILLER MD Jul 14, 2021 18:47
--- NOTE | 2021-07-17 17:07 | PATHOLOGY ---
[facility] Accession Number: [id number] . 01 Material submitted: . stomach - GASTRIC TUBES X3 GROSS ONLY . 01 Clinical history: . INFECTED GASTRIC TUBE REMOVAL/EXCHANGE GASTRIC TUBES PAIN IN JEJUNOSTOMY SITE . 02 Diagnosis: Gastric tubes (3) (Gross only). . (JPM:adrian; 07/17/2021) S 07/17/2021 1623 Local . 02 Electronically signed: . Bryan Cruz MD, Pathologist NPI- [id number] . 01 Gross description: . The specimen is received in formalin, labeled "Sakina Mustafa, gastric tubes x 3 gross only". Received are 3, pliable, intact, multiport, gastric tubes, arbitrarily designated 1, 2 and 3. . Gastric tube 1, measures 25.6 cm in length, and 0.7 cm in diameter. The proximal end displays 3 distinct ports, 2 of which are capped, and displays the following in black ink: "[employer], 20FR, 6mL balloon". The distal end displays a deflated balloon, a T-shaped stopper (4.0 x 1.5 x 1.4 cm), and numbers 1-9 in black ink, by black dots. The middle section of the gastric tube displays the following in black ink: "20Fr 6mL". The lumen measures 0.3 cm in diameter, and is partially filled with a mann-yellow, friable, partially solid contents. . Gastric tube 2, measures 25.3 cm in length, and 0.6 cm in diameter. The proximal end displays 3 ports, 2 of which are capped, and displays the following in black ink: "ENTERAL MEDS ONLY, FEED ONLY". The distal end displays a deflated balloon, and a discoid shaped stopper (3.7 x 3.7 x 1.5 cm), and the following in black ink: "2, 4, 6, 8, 10 ( by dashes), cm". The middle section of the gastric tube displays the following in black ink: "18Fr 5-10mL COOK ENTUIT". The lumen measures 0.3 cm in diameter and is partially filled with a mann-pink friable, partially solid contents. . Gastric tube 3, measures 58.8 cm in length and 0.6 cm in diameter. The proximal end displays 2 ports, one of which is capped and displays the following in black ink: "BAL. JEJUNAL". The middle section of the tube displays a deflated balloon, and a discoid shaped stopper (3.8 x 3.8 x 1.0 cm). A white line is located on one aspect of the entire tube. The lumen measures 0.4 cm in diameter. 2/3 of the lumen is filled with a mann-yellow, serous fluid. Photographs are obtained. The specimen is for gross only. (J; 07/14/2021) JGG/[id number] 07/17/2021 0913 Local . 02 Pathologist provided ICD-10: Z46.59 . 02 CPT . 370610 Specimen Comment: A courtesy copy of this report has been sent to [phone] Specimen Comment: [id number] Specimen Comment: Report sent to / DR YUN Performed at: 01 [facility] [address], [place], [place] [id number] MD Matthew Soria MD Phone: [phone] Performed at: 02 [facility] [address], [place] [id number] MD Bryan Cruz MD Phone: [phone]
== END 2021-07-14 14:50 | disposition home or self-care (01) ==
LOC: SURG 09:28
PROVIDERS: ATTEND Surgery
DX: T85.848A Pain due to other internal prosthetic devices, implants and grafts, initial encounter (principal); K94.19 Other complications of enterostomy; I10 Essential (primary) hypertension; J45.909 Unspecified asthma, uncomplicated; G47.30 Sleep apnea, unspecified; F41.9 Anxiety disorder, unspecified; F32.9 Major depressive disorder, single episode, unspecified; K21.9 Gastro-esophageal reflux disease without esophagitis; Z87.440 Personal history of urinary (tract) infections; Z79.899 Other long term (current) drug therapy; Z98.890 Other specified postprocedural states; Z88.0 Allergy status to penicillin; Z91.041 Radiographic dye allergy status; Z88.8 Allergy status to other drugs, medicaments and biological substances; Z82.49 Family history of ischemic heart disease and other diseases of the circulatory system; X58.XXXA Exposure to other specified factors, initial encounter; Y93.89 Activity, other specified; Y92.89 Other specified places as the place of occurrence of the external cause; Y99.8 Other external cause status
CPT/HCPCS: 43763; 81025; A4930; J1170; J1630; J1956; J3490; Q9967; 76000

== ENCOUNTER 2021-07-15 13:58 | Inpatient (IN) | payer OTHER, MEDICARE, MEDICAID ==
[~2021-07-15] VITALS: Ht 170.2 cm; Wt 88.0 kg
[~2021-07-15 13:58] MED LIST changes: +DIPH25CA58 IVP; +DIPH25CA58 PO; +FLUT1DIS3 IH; -IV RINGERS,LACTATED 1000ML 1,000 ML IV SCH; -MORPHINE SULFATE 2 MG/ML INJ. IVP PRN; -PROCHLORPERAZINE 10 MG/2 ML VIAL. IVP PRN; +UMEC62.5 IH; -fentaNYL PF VIAL 100 MCG/2 ML VIAL IVP PRN
[2021-07-15] MEDS ORDERED: IV NORMAL SALINE 1000ML BAG 1,000 ML IV ONE ×3 (15:15→21:00)
[2021-07-15] MEDS ORDERED: ONDANSETRON PF 4 MG/2 ML VIAL. IVP ONE (15:15)
[2021-07-15 15:25] LABS: BILIRUBIN,URINE NEGATIVE (NEG); CLARITY,URINE CLEAR; COLOR,URINE YELLOW; NITRITE,URINE NEGATIVE (NEG); PH,URINE 5.5 (<5.0-8.0); PROTEIN,URINE NEGATIVE (NEG-TRACE)
--- NOTE | 2021-07-15 15:27 | RAD ---
2 views of the abdomen 07/15/2021 INDICATION: Abdominal pain. Discussion: The bowel gas pattern is nonspecific and nonobstructive. No gross pneumoperitoneum is james ntified. Contrast is seen in the colon. Surgical clips noted in the right upper quadrant. A enteric t ube projects over the right midabdomen. A second tube projects over the upper midabdomen. These likel y represent a jejunostomy tube and gastrostomy tube respectively. Previously seen left-sided jejunost guerrero tube is no longer identified. No acute osseous changes are identified. IMPRESSION: No radiographic evidence of acute intra-abdominal abnormality Electronically signed by: Flo Cartwright MD (07/15/2021 3:24 PM) [id number]
[2021-07-15] MEDS: HYDROmorphone 2 MG/ML INJ. IV/SQ PRN ×4 (15:38→21:41)
[2021-07-15 15:49] LABS: BASO % 1 % (0-3); EOS % 0 % (0-3); HEMATOCRIT 28.8 % (36.0-47.0); HEMOGLOBIN 9.2 g/dL (12.0-15.5); LYMPH # 1.1 x10^3/uL (1.0-4.8); LYMPH % 17 % (24-48); MEAN CORPUSCULAR HEMOGLOBIN 26 pg (25-35); MEAN CORPUSCULAR HGB CONC 32 g/dL (31-37); MEAN CORPUSCULAR VOLUME 82 fL (79-100); MONO # 1.1 x10^3/uL (0.0-1.1); MONO % 17 % (0-9); NEUT # 4.2 x10^3/uL (1.8-7.7); NEUT % 66 % (31-73); PLATELET COUNT 90 x10^3/uL (140-400); RED BLOOD COUNT 3.49 x10^6/uL (3.50-5.40); WHITE BLOOD COUNT 6.4 x10^3/uL (4.0-11.0)
[2021-07-15 15:54] LABS: BACTERIA,URINE MODERATE /HPF (0-FEW); HYALINE CASTS, URINE FEW /HPF; YEAST,URINE PRESENT /HPF
[2021-07-15 16:04] LABS: CALCIUM 8.1 mg/dL (8.5-10.1); CREATININE 0.8 mg/dL (0.6-1.0); GFR 88.9; POTASSIUM 4.3 mmol/L (3.5-5.1)
[2021-07-15 16:10] LABS: ALBUMIN 3.6 g/dL (3.4-5.0); ALBUMIN/GLOBULIN RATIO 1.1 (1.0-1.7); TOTAL BILIRUBIN 0.1 mg/dL (0.2-1.0)
[2021-07-15 18:36] LABS: PLT ESTIMATE DECREASED (ADEQUATE); TEAR DROP CELLS MOD
[2021-07-15 18:37] LABS: ANISOCYTOSIS MOD; OVALOCYTES FEW
[2021-07-15] MEDS ORDERED: HYDROcodon/APAP 7.5/325MG ORAL 15 ML SOLUTION PO PRN (20:45)
[2021-07-15] MEDS ORDERED: ALBUTEROL SULFATE 2.5 MG/3 ML NEBU. NEB PRN (20:45)
[2021-07-15] MEDS ORDERED: BISACODYL 10 MG SUPP.RECT. PR PRN (20:45)
[2021-07-15] MEDS ORDERED: MONTELUKAST SODIUM 10 MG TABLET. PO PRN (20:45)
--- NOTE | 2021-07-15 20:49 | PHYS DOC ---
Past Medical History Past Medical History: Asthma, DVT, GERD, Hypertension, Migraines, MRSA, Other Additional Past Medical Histor: gastroperisis, autonomic neuropathy Past Surgical History: Tonsillectomy Additional Past Surgical Histo: central line placement, pyloricplasty Smoking Status: Never Smoker Alcohol Use: None Drug Use: None General Adult EDM: Chief Complaint: ABDOMINAL PAIN HPI: HPI: Patient is a 21 year old female with extensive multiple surgeries of the abdomen who presents to the ED today with complaints of 9 out of 10 generalized abdominal pain, symptoms began yesterday after she had a G-tube replaced. Patient states she called Dr. Santana and they told her to come to the ED to be admitted. Patient denies any nausea, vomiting, diarrhea. Review of Systems: Review of Systems: Constitutional: Denies fever or chills. [] Eyes: Denies change in visual acuity. [] HENT: Denies nasal congestion or sore throat. [] Respiratory: Denies cough or shortness of breath. [] Cardiovascular: Denies chest pain or edema. [] GI: Reports abdominal pain, denies any nausea, vomiting, bloody stools or diarrhea. [] : Denies dysuria. [] Musculoskeletal: Denies back pain or joint pain. [] Integument: Denies rash. [] Neurologic: Denies headache, focal weakness or sensory changes. Psychiatric: Denies depression or anxiety. [] Heart Score: C/O Chest Pain: N/A Risk Factors: Risk Factors: DM, Current or recent (<one month) smoker, HTN, HLP, family history of CAD, obesity. Risk Scores: Score 0 - 3: 2.5% MACE over next 6 weeks - Discharge Home Score 4 - 6: 20.3% MACE over next 6 weeks - Admit for Clinical Observation Score 7 - 10: 72.7% MACE over next 6 weeks - Early Invasive Strategies Current Medications: Current Medications Medications (Trade) Dose Ordered Sig/Kel Start Time Stop Time Status Last Admin Dose Admin Hydromorphone HCl (Dilaudid) 1 mg PRN Q15MIN PRN 07/15/21 15:15 07/16/21 15:14 07/15/21 18:50 1 MG Ondansetron HCl (Zofran) 4 mg 1X ONCE 07/15/21 15:15 07/15/21 15:16 DC 07/15/21 15:37 4 MG Sodium Chloride 1,000 ml @ 1,000 mls/hr 1X ONCE 07/15/21 15:15 07/15/21 16:14 DC 07/15/21 17:28 1,000 MLS/HR Allergies: Allergies: Allergies Coded Allergies Type Severity Reaction Last Updated Verified iron Allergy Severe Anaphylaxis 07/14/21 Yes Penicillins Allergy Intermediate LIGHT RASH CHILD 07/14/21 Yes Sulfa (Sulfonamide Antibiotics) Allergy Intermediate 07/14/21 Yes I S O L A T I O N *CONTACT* Allergy Unknown 07/14/21 Yes Physical Exam: PE: Constitutional: Well developed, well nourished, no acute distress, non-toxic appearance. [] HENT: Normocephalic, atraumatic, bilateral external ears normal, oropharynx moist, no oral exudates, nose normal. [] Eyes: PERRLA, EOMI, conjunctiva normal, no discharge. [] Neck: Normal range of motion, no tenderness, supple, no stridor. [] Cardiovascular: For PICC line to the right upper chest, heart rate regular rhythm, no murmur [] Lungs & Thorax: Bilateral breath sounds clear to auscultation [] Abdomen: Left midabdomen with a colostomy bag from G-tube take out, right abdomen with 2 G-tubes, bowel sounds normal, soft, diffuse tenderness to the abdomen, no masses, no pulsatile masses. [] Skin: Warm, dry, no erythema, no rash. [] Back: No tenderness, no CVA tenderness. [] Extremities: No tenderness, no cyanosis, no clubbing, ROM intact, no edema. [] Neurologic: Alert and oriented X 3, normal motor function, normal sensory function, no focal deficits noted. [] Psychologic: Affect normal, judgement normal, mood normal. [] Current Patient Data: Labs: Laboratory Tests Test 07/15/21 15:05 07/15/21 15:32 Urine Color Yellow Urine Clarity Clear Urine pH 5.5 (<5.0-8.0) Urine Specific [place] >=1.030 (1.000-1.030) Urine Protein Negative mg/dL (NEG-TRACE) Urine Glucose (UA) Negative mg/dL (NEG) Urine Ketones (Stick) Negative mg/dL (NEG) Urine Blood Moderate (NEG) Urine Nitrite Negative (NEG) Urine Bilirubin Negative (NEG) Urine Urobilinogen Dipstick 1.0 mg/dL (0.2 mg/dL) Urine Leukocyte Esterase Trace (NEG) Urine RBC 6-10 /HPF (0-2) Urine WBC 5-10 /HPF (0-4) Urine Squamous Epithelial Cells Many /LPF Urine Bacteria Moderate /HPF (0-FEW) Urine Hyaline Casts Few /HPF Urine Mucus Mod /LPF Urine Yeast Present /HPF White Blood Count 6.4 x10^3/uL (4.0-11.0) Red Blood Count 3.49 x10^6/uL (3.50-5.40) L Hemoglobin 9.2 g/dL (12.0-15.5) L Hematocrit 28.8 % (36.0-47.0) L Mean Corpuscular Volume 82 fL (79-100) Mean Corpuscular Hemoglobin 26 pg (25-35) Mean Corpuscular Hemoglobin Concent 32 g/dL (31-37) Red Cell Distribution Width 21.0 % (11.5-14.5) H Platelet Count 90 x10^3/uL (140-400) L Neutrophils (%) (Auto) 66 % (31-73) Lymphocytes (%) (Auto) 17 % (24-48) L Monocytes (%) (Auto) 17 % (0-9) H Eosinophils (%) (Auto) 0 % (0-3) Basophils (%) (Auto) 1 % (0-3) Neutrophils # (Auto) 4.2 x10^3/uL (1.8-7.7) Lymphocytes # (Auto) 1.1 x10^3/uL (1.0-4.8) Monocytes # (Auto) 1.1 x10^3/uL (0.0-1.1) Eosinophils # (Auto) 0.0 x10^3/uL (0.0-0.7) Basophils # (Auto) 0.0 x10^3/uL (0.0-0.2) Platelet Estimate Decreased (ADEQUATE) Anisocytosis Mod Tear Drop Cells Mod Ovalocytes Few Sodium Level 140 mmol/L (136-145) Potassium Level 4.3 mmol/L (3.5-5.1) Chloride Level 107 mmol/L (98-107) Carbon Dioxide Level 25 mmol/L (21-32) Anion Gap 8 (6-14) Blood Urea Nitrogen 17 mg/dL (7-20) Creatinine 0.8 mg/dL (0.6-1.0) Estimated GFR (Cockcroft-Gault) 88.9 BUN/Creatinine Ratio 21 (6-20) H Glucose Level 89 mg/dL (70-99) Lactic Acid Level 1.4 mmol/L (0.4-2.0) Calcium Level 8.1 mg/dL (8.5-10.1) L Total Bilirubin 0.1 mg/dL (0.2-1.0) L Aspartate Amino Transferase (AST) 13 U/L (15-37) L Alanine Aminotransferase (ALT) 21 U/L (14-59) Alkaline Phosphatase 145 U/L (46-116) H Total Protein 7.0 g/dL (6.4-8.2) Albumin 3.6 g/dL (3.4-5.0) Albumin/Globulin Ratio 1.1 (1.0-1.7) Procalcitonin 0.24 ng/mL (0.00-0.10) H Laboratory Tests 07/15/21 15:32 Laboratory Tests 07/15/21 15:32 Vital Signs: Vital Signs Date Time Temp Pulse Resp B/P (MAP) Pulse Ox O2 Delivery O2 Flow Rate FiO2 07/15/21 18:50 16 97 07/15/21 17:34 Room Air 07/15/21 14:05 98.1 114 137/95 (109) 98.1 EKG: EKG: [] Radiology/Procedures: Radiology/Procedures: []PROCEDURE: ABDOMEN SUPINE & UPRIGHT 2 views of the abdomen 07/15/2021 INDICATION: Abdominal pain. Discussion: The bowel gas pattern is nonspecific and nonobstructive. No gross pneumoperitoneum is identified. Contrast is seen in the colon. Surgical clips noted in the right upper quadrant. A enteric tube projects over the right midab domen. A second tube projects over the upper midabdomen. These likely represent a jejunostomy tube and gastrostomy tube respectively. Previously seen left-sided jejunostomy tube is no longer identified. No acute osseous changes are identified. IMPRESSION: No radiographic evidence of acute intra-abdominal abnormality Electronically signed by: Flo Liz MD (07/15/2021 3:24 PM) [id number] DICTATED and SIGNED BY: FLO LIZ MD DATE: 07/15/21 [id number] 0 Course & Med Decision Making: Course & Med Decision Making Pertinent Labs and Imaging studies reviewed. (See chart for details) This a 21-year-old female patient with history of multiple abdominal surgeries presenting today complaining of generalized abdominal pain that began yesterday. She had a G-tube replacement yesterday Patient's lab work is negative for any acute findings, her pain is uncontrolled with Dilaudid. Spoke with Dr. Santana Spoke with Dr. Cooley who accepted patient for admission Pooja Disclaimer: Pooja Disclaimer: This electronic medical record was generated, in whole or in part, using a voice recognition dictation system. Departure Departure Impression: Primary Impression: Intractable abdominal pain Disposition: ADMITTED INPATIENT Condition: STABLE Referrals: ARASH YUN CLAMSHELL ENGINEER (PCP) HEYDI MORRIS APRN Jul 15, 2021 20:49
[2021-07-15] MEDS ORDERED: ONDANSETRON PF 4 MG/2 ML VIAL. IVP PRN (21:00)
[2021-07-15] MEDS: HYOSCYAMINE ER 0.375 MG TAB.ER.12H PO SCH (21:00)
[2021-07-15] MEDS: SCOPOLAMINE 1.5MG PATCH. TD SCH (21:00)
[2021-07-15] MEDS ORDERED: HYDROmorphone 2 MG/ML INJ. IVP PRN (21:00)
[2021-07-15] MEDS: diphenhydrAMINE HCL 25 MG CAPSULE PO SCH (21:00)
[2021-07-15] MEDS: IV NORMAL SALINE 1000ML BAG 1,000 ML IV ONE (21:00)
--- NOTE | 2021-07-15 21:09 | PDOC1 ---
History and Physical Date of Admission Date of Admission DATE: 07/15/21 TIME: 21:06 Source Source: Chart review, Patient History of Present Illness History of Present Illness Sakina is a 21 y/o female well known here, presents with acute on chroinc abd pain, pain is worse. home pain meds not helping, asks for IV pain meds, IV ativan, IV benadryl Has acute nuasea and increased abdominal pain for days less distress than usual, almost looks pleasant,. Complicated GI and surgical history w/ idiopathic gastroparesis. Many prior interventions, and has w/ G tube and J tube Intolerant to tube feeds in past (pain, vomiting). Prokinetics ineffective/not tolerated. S/p pyloroplasty. now on TPN only, Many past EGDs. Treated for H. pylori x 2. H/o GERD. Past Medical History Cardiovascular: HTN Pulmonary: No pertinent hx CENTRAL NERVOUS SYSTEM: Other GI: GERD, Other Heme/Onc: No pertinent hx Psych: Other Musculoskeletal: Other Rheumatologic: No pertinent hx Infectious disease: Other Renal/: UTI Endocrine: No pertinent hx Past Surgical History Past Surgical History: Appendectomy, Other Family History Family History: Hypertension, Family History Unknown Social History Smoke: No ALCOHOL: none Drugs: None Current Problem List Problem List Problems Medical Problems: (1) Intractable abdominal pain Status: Acute Current Medications Current Medications Current Medications Hydromorphone HCl (Dilaudid) 1 mg PRN Q15MIN PRN IV/SQ PAIN GREATER THAN 3/10 Last administered on 07/15/21at 18:50; Start 07/15/21 at 15:15; Stop 07/16/21 at 15:14 Sodium Chloride 1,000 ml @ 1,000 mls/hr 1X ONCE IV Last administered on at 15:38; Start 07/15/21 at 15:15; Stop 07/15/21 at 16:14; Status DC Ondansetron HCl (Zofran) 4 mg 1X ONCE IVP Last administered on 07/15/21at 15:37; Start 07/15/21 at 15:15; Stop 07/15/21 at 15:16; Status DC Sodium Chloride 1,000 ml @ 1,000 mls/hr 1X ONCE IV Last administered on 07/15/21at 17:28; Start 07/15/21 at 15:15; Stop 07/15/21 at 16:14; Status DC Bisacodyl (Dulcolax Supp) 10 mg PRN DAILY PRN NC CONSTIPATION, 1sT CHOICE; Start 07/15/21 at 20:45 Diphenhydramine HCl (Benadryl) 50 mg QHS PO ; Start 07/15/21 at 21:00 Acetaminophen/ Hydrocodone Bitart (Lortab 7.5-325/ 15ml Oral Solution) 15 ml PRN Q6HRS PRN PO MODERATE TO SEVERE PAIN; Start 07/15/21 at 20:45 Hyoscyamine (Levbid Er) 0.375 mg BID PO ; Start 07/15/21 at 21:00 Albuterol Sulfate (Ventolin Neb Soln) 2.5 mg PRN Q6HRS PRN NEB SHORTNESS OF BREATH; Start 07/15/21 at 20:45 Midodrine (Proamatine) 5 mg BID76 PEG ; Start 07/16/21 at 07:00 Montelukast Sodium (Singulair) 10 mg PRN DAILY PRN PO asthma; Start 07/15/21 at 20:45 Ondansetron HCl (Zofran) 4 mg PRN Q6HRS PRN IVP NAUSEA/VOMITING 1ST CHOICE; Start 07/15/21 at 20:45 Scopolamine (Transderm-Scop) 1 patch Q3DAYS TD ; Start 07/15/21 at 21:00 Hydromorphone HCl (Dilaudid) 2 mg Q3HRS PRN IVP PAIN; Start 07/15/21 at 21:00; Stop 07/15/21 at 20:53; Status DC Lorazepam (Ativan Inj) 1 mg PRN Q8HRS PRN IVP ANXIETY / AGITATION; Start 07/15/21 at 21:00 Info (Tpn Per Pharmacy) 1 each PRN DAILY PRN MC SEE COMMENTS; Start 07/15/21 at 21:00; Status UNV Sodium Chloride 1,000 ml @ 125 mls/hr 1X ONCE IV ; Start 07/15/21 at 21:00; Stop 07/16/21 at 04:59 Diphenhydramine HCl (Benadryl) 25 mg PRN Q6HRS PRN IVP ITCHING; Start 07/15/21 at 21:00 Ondansetron HCl (Zofran) 4 mg PRN Q8HRS PRN IVP NAUSEA/VOMITING; Start 07/15/21 at 21:00; Stop 07/16/21 at 20:59 Sodium Chloride 1,000 ml @ 75 mls/hr 1X ONCE IV ; Start 07/15/21 at 21:00; Stop 07/16/21 at 10:19 Hydromorphone HCl (Dilaudid) 1 mg PRN Q3HRS PRN IVP SEVERE PAIN 7-10; Start 07/15/21 at 21:00 Active Scripts Active Azithromycin Oral Susp (Azithromycin) 200 Mg/5 Ml Susp.recon 2.25 Ml PO DAILY 500ml PO x day 1 250ml PO x day 2-5 Disp QS No refills Terbinafine Hcl 30 Gm Cream..g. 1 Judie TP BID Apply cream twice daily to affected areas for 2 weeks. Hydrocodone-Apap 7.5-325/15 Soln (Hydrocodone Bit/Acetaminophen) 15 Ml Solution 15 Ml PO PRN Q6HRS PRN Transderm-Scop (Scopolamine) 1 Each Patch.td72 1 Patch TP Q3DAYS [Tpn Per Pharmacy] 1 EACH Each 1 Each MC PRN DAILY PRN 30 Days Ondansetron Hcl 4 Mg/2 Ml Vial (Ondansetron Hcl/Pf) 4 Mg/2 Ml Vial 4 Mg IVP PRN Q6HRS PRN 30 Days Bisacodyl 10 Mg Supp.rect 10 Mg NC PRN DAILY PRN 30 Days Reported Benadryl (Diphenhydramine Hcl) 25 Mg Capsule 25 Mg IVP QIDPRN PRN Benadryl (Diphenhydramine Hcl) 25 Mg Capsule 2 Cap PO QHS 30 Days Incruse Ellipta (Umeclidinium [place]) 62.5 Mcg Blst.w.dev 62.5 Mcg IH DAILY Advair 250-50 Diskus (Fluticasone/Salmeterol) 1 Each Disk.w.dev 1 Puff IH BID Valproic Acid (Valproate Sodium) 500 Mg/10 Ml Solution 500 Mg JT BID Metoprolol Tartrate 75 Mg Tablet 25 Mg PO BID Levbid (Hyoscyamine Sulfate) 0.375 Mg Tab.er.12h 0.375 Mg JT BID Famotidine 40 Mg Tablet 40 Mg IV DAILY [place]ovy Autoinjector (Fremanezumab-Vfrm) 225 Mg/1.5 Ml Auto.injct 225 Mg SQ QMONTH Tizanidine Hcl 2 Mg Capsule 2 Mg JT Q8HRS PRN Gabapentin 600 Mg Tablet 300 Mg JT TID Midodrine Hcl 5 Mg Tablet 5 Mg SL BID Olopatadine HCl 5 Ml Drops 0.1 % OP PRN DAILY PRN Proair Hfa (Albuterol Sulfate) 8.5 Gm Hfa.aer.ad 2 Puff IH PRN Q4-6HRS PRN 21 Days Ipratropium [place] 30 Ml [place] 1 [place] NS BID Duoneb 0.5-3(2.5) Mg/3 Ml (Albuterol/Ipratropium) 3 Ml Ampul.neb 3 Ml NEB PRN QID PRN Montelukast Sodium Tablet (Montelukast Sodium) 10 Mg Tablet 10 Mg PO DAILY PRN Allergies Allergies: Coded Allergies: iron (Verified Allergy, Severe, Anaphylaxis, 07/14/21) Penicillins (Verified Allergy, Intermediate, LIGHT RASH CHILD, 07/14/21) TOLERATES ZOSYN Sulfa (Sulfonamide Antibiotics) (Verified Allergy, Intermediate, 07/14/21) I S O L A T I O N *CONTACT* (Verified Allergy, Unknown, 07/14/21) mrsa ROS General: YES: Chills, Fatigue, Malaise PSYCHOLOGICAL ROS: YES: Anxiety, Sleep disturbances; No: Behavioral Disorder, Concentration difficultie, Decreased libido, Depression, Disorientation, Hallucinations, Hostility, Irritablity, Memory difficulties, Mood Swings, Obsessive thoughts, Suicidal ideation, Other Eyes: No Blurry vision, No Decreased vision, No Double vision, No Dry eyes, No Excessive tearing, No Eye Pain, No Itchy Eyes, No Loss of vision, No Photophobia, No Scotomata, No Uses contacts, No Uses glasses, No Other HEENT: No: Heacaches, Visual Changes, Hearing change, Nasal congestion, Nasal discharge, Oral lesions, Sinus pain, Sore Throat, Epistaxis, Sneezing, Snoring, Tinnitus, Vertigo, Vocal changes, Other ENDOCRINE: No: Breast Changes, Galactorrhea, Hair Pattern Changes, Hot Flashes, Malaise/lethargy, Mood Swings, Palpitations, Polydipsia/polyuria, Skin Changes, Temperature Intolerance, Unexpected Weight Changes, Other Respiratory: No: Cough, Hemoptysis, Orthopnea, Pleuritic Pain, Shortness of breath, SOB with excertion, Sputum Changes, Stridor, Tachypnea, Wheezing, Other Cardiovascular: No Chest Pain, No Palpitations, No Orthopnea, No Paroxysmal Noc. Dyspnea, No Edema, No Lt Headedness, No Other Gastrointestinal: Yes Nausea, Yes Abdominal Pain Genitourinary: No Dysuria, No Frequency, No Incontinence, No Hematuria, No Retention, No Discharge, No Urgency, No Pain, No Flank Pain, No Other, No , No , No , No , No , No , No Musculoskeletal: No Gait Disturbance, No Joint Pain, No Joint Stiffness, No Joint Swelling, No Muscle Pain, No Muscular Weakness, No Pain In:, No Swelling In:, No Other Neurological: No Behavorial Changes, No Bowel/Bladder ControlChng, No Confusion, No Dizziness, No Gait Disturbance, No Headaches, No Impaired Coord/balance, No Memory Loss, No Numbness/Tingling, No Seizures, No Speech Problems, No Tremors, No Visual Changes, No Weakness, No Other Skin: No Dry Skin, No Eczema, No Hair Changes, No Lumps, No Mole Changes, No Mottling, No Nail Changes, No Pruritus, No Rash, No Skin Lesion Changes, No Other, No Acne Physical Exam General: Alert, Cooperative, mild distress, moderate distress Lungs: Clear to auscultation, Normal air movement Heart: S1S2, no gallops, no murmurs Abdomen: Other (tender, g tube, ) Extremities: No cyanosis, No edema Skin: No breakdown, No significant lesion Neuro: Normal speech, Sensation intact, Cranial nerves 3-12 NL Psych/Mental Status: Mental status NL, Mood NL Vitals Vitals Vital Signs Date Time Temp Pulse Resp B/P (MAP) Pulse Ox O2 Delivery O2 Flow Rate FiO2 07/15/21 20:58 62 140/78 (98) 100 Room Air 07/15/21 18:50 16 07/15/21 14:05 98.1 98.1 Labs Labs Laboratory Tests Test 07/15/21 15:05 07/15/21 15:32 Urine Color Yellow Urine Clarity Clear Urine pH 5.5 (<5.0-8.0) Urine Specific [place] >=1.030 (1.000-1.030) Urine Protein Negative mg/dL (NEG-TRACE) Urine Glucose (UA) Negative mg/dL (NEG) Urine Ketones (Stick) Negative mg/dL (NEG) Urine Blood Moderate (NEG) Urine Nitrite Negative (NEG) Urine Bilirubin Negative (NEG) Urine Urobilinogen Dipstick 1.0 mg/dL (0.2 mg/dL) Urine Leukocyte Esterase Trace (NEG) Urine RBC 6-10 /HPF (0-2) Urine WBC 5-10 /HPF (0-4) Urine Squamous Epithelial Cells Many /LPF Urine Bacteria Moderate /HPF (0-FEW) Urine Hyaline Casts Few /HPF Urine Mucus Mod /LPF Urine Yeast Present /HPF White Blood Count 6.4 x10^3/uL (4.0-11.0) Red Blood Count 3.49 x10^6/uL (3.50-5.40) Hemoglobin 9.2 g/dL (12.0-15.5) Hematocrit 28.8 % (36.0-47.0) Mean Corpuscular Volume 82 fL (79-100) Mean Corpuscular Hemoglobin 26 pg (25-35) Mean Corpuscular Hemoglobin Concent 32 g/dL (31-37) Red Cell Distribution Width 21.0 % (11.5-14.5) Platelet Count 90 x10^3/uL (140-400) Neutrophils (%) (Auto) 66 % (31-73) Lymphocytes (%) (Auto) 17 % (24-48) Monocytes (%) (Auto) 17 % (0-9) Eosinophils (%) (Auto) 0 % (0-3) Basophils (%) (Auto) 1 % (0-3) Neutrophils # (Auto) 4.2 x10^3/uL (1.8-7.7) Lymphocytes # (Auto) 1.1 x10^3/uL (1.0-4.8) Monocytes # (Auto) 1.1 x10^3/uL (0.0-1.1) Eosinophils # (Auto) 0.0 x10^3/uL (0.0-0.7) Basophils # (Auto) 0.0 x10^3/uL (0.0-0.2) Platelet Estimate Decreased (ADEQUATE) Anisocytosis Mod Tear Drop Cells Mod Ovalocytes Few Sodium Level 140 mmol/L (136-145) Potassium Level 4.3 mmol/L (3.5-5.1) Chloride Level 107 mmol/L (98-107) Carbon Dioxide Level 25 mmol/L (21-32) Anion Gap 8 (6-14) Blood Urea Nitrogen 17 mg/dL (7-20) Creatinine 0.8 mg/dL (0.6-1.0) Estimated GFR (Cockcroft-Gault) 88.9 BUN/Creatinine Ratio 21 (6-20) Glucose Level 89 mg/dL (70-99) Lactic Acid Level 1.4 mmol/L (0.4-2.0) Calcium Level 8.1 mg/dL (8.5-10.1) Total Bilirubin 0.1 mg/dL (0.2-1.0) Aspartate Amino Transf (AST/SGOT) 13 U/L (15-37) Alanine Aminotransferase (ALT/SGPT) 21 U/L (14-59) Alkaline Phosphatase 145 U/L (46-116) Total Protein 7.0 g/dL (6.4-8.2) Albumin 3.6 g/dL (3.4-5.0) Albumin/Globulin Ratio 1.1 (1.0-1.7) Procalcitonin 0.24 ng/mL (0.00-0.10) Laboratory Tests Test 07/15/21 15:05 07/15/21 15:32 Urine Color Yellow Urine Clarity Clear Urine pH 5.5 (<5.0-8.0) Urine Specific [place] >=1.030 (1.000-1.030) Urine Protein Negative mg/dL (NEG-TRACE) Urine Glucose (UA) Negative mg/dL (NEG) Urine Ketones (Stick) Negative mg/dL (NEG) Urine Blood Moderate (NEG) Urine Nitrite Negative (NEG) Urine Bilirubin Negative (NEG) Urine Urobilinogen Dipstick 1.0 mg/dL (0.2 mg/dL) Urine Leukocyte Esterase Trace (NEG) Urine RBC 6-10 /HPF (0-2) Urine WBC 5-10 /HPF (0-4) Urine Squamous Epithelial Cells Many /LPF Urine Bacteria Moderate /HPF (0-FEW) Urine Hyaline Casts Few /HPF Urine Mucus Mod /LPF Urine Yeast Present /HPF White Blood Count 6.4 x10^3/uL (4.0-11.0) Red Blood Count 3.49 x10^6/uL (3.50-5.40) Hemoglobin 9.2 g/dL (12.0-15.5) Hematocrit 28.8 % (36.0-47.0) Mean Corpuscular Volume 82 fL (79-100) Mean Corpuscular Hemoglobin 26 pg (25-35) Mean Corpuscular Hemoglobin Concent 32 g/dL (31-37) Red Cell Distribution Width 21.0 % (11.5-14.5) Platelet Count 90 x10^3/uL (140-400) Neutrophils (%) (Auto) 66 % (31-73) Lymphocytes (%) (Auto) 17 % (24-48) Monocytes (%) (Auto) 17 % (0-9) Eosinophils (%) (Auto) 0 % (0-3) Basophils (%) (Auto) 1 % (0-3) Neutrophils # (Auto) 4.2 x10^3/uL (1.8-7.7) Lymphocytes # (Auto) 1.1 x10^3/uL (1.0-4.8) Monocytes # (Auto) 1.1 x10^3/uL (0.0-1.1) Eosinophils # (Auto) 0.0 x10^3/uL (0.0-0.7) Basophils # (Auto) 0.0 x10^3/uL (0.0-0.2) Platelet Estimate Decreased (ADEQUATE) Anisocytosis Mod Tear Drop Cells Mod Ovalocytes Few Sodium Level 140 mmol/L (136-145) Potassium Level 4.3 mmol/L (3.5-5.1) Chloride Level 107 mmol/L (98-107) Carbon Dioxide Level 25 mmol/L (21-32) Anion Gap 8 (6-14) Blood Urea Nitrogen 17 mg/dL (7-20) Creatinine 0.8 mg/dL (0.6-1.0) Estimated GFR (Cockcroft-Gault) 88.9 BUN/Creatinine Ratio 21 (6-20) Glucose Level 89 mg/dL (70-99) Lactic Acid Level 1.4 mmol/L (0.4-2.0) Calcium Level 8.1 mg/dL (8.5-10.1) Total Bilirubin 0.1 mg/dL (0.2-1.0) Aspartate Amino Transf (AST/SGOT) 13 U/L (15-37) Alanine Aminotransferase (ALT/SGPT) 21 U/L (14-59) Alkaline Phosphatase 145 U/L (46-116) Total Protein 7.0 g/dL (6.4-8.2) Albumin 3.6 g/dL (3.4-5.0) Albumin/Globulin Ratio 1.1 (1.0-1.7) Procalcitonin 0.24 ng/mL (0.00-0.10) VTE Prophylaxis Ordered VTE Prophylaxis Devices: Yes VTE Pharmacological Prophylaxi: Contraindicated Assessment/Plan Assessment/Plan acute on chronic refactory abd pain gastroparesis malnutrition on TPN anxiety admit Justifications for Admission Other Justification Fever KRISTEN ESPAÑA MD Jul 15, 2021 21:09
[2021-07-15 22:56] VITALS: BP 106/66
[2021-07-16] MEDS: HYDROmorphone 2 MG/ML INJ. IVP PRN ×7 (00:04→21:29)
[2021-07-16] MEDS: diphenhydrAMINE 50 MG/ML VIAL IVP PRN ×3 (00:05→21:28)
[2021-07-16 03:18] VITALS: BP 101/62
[2021-07-16] MEDS: MIDODRINE 5 MG TABLET PEG SCH ×2 (06:05→18:00)
[2021-07-16 06:07] LABS: BASO % 0 % (0-3); EOS % 1 % (0-3); HEMATOCRIT 25.9 % (36.0-47.0); HEMOGLOBIN 8.2 g/dL (12.0-15.5); LYMPH # 1.1 x10^3/uL (1.0-4.8); LYMPH % 26 % (24-48); MEAN CORPUSCULAR HEMOGLOBIN 26 pg (25-35); MEAN CORPUSCULAR HGB CONC 32 g/dL (31-37); MEAN CORPUSCULAR VOLUME 83 fL (79-100); MONO # 0.8 x10^3/uL (0.0-1.1); MONO % 17 % (0-9); NEUT # 2.4 x10^3/uL (1.8-7.7); NEUT % 56 % (31-73); PLATELET COUNT 131 x10^3/uL (140-400); RED BLOOD COUNT 3.11 x10^6/uL (3.50-5.40); RED CELL DISTRIBUTION WIDTH 21.5 % (11.5-14.5); WHITE BLOOD COUNT 4.4 x10^3/uL (4.0-11.0)
[2021-07-16 06:20] LABS: CALCIUM 7.6 mg/dL (8.5-10.1); CREATININE 0.6 mg/dL (0.6-1.0); GFR 123.9; TOTAL BILIRUBIN 0.3 mg/dL (0.2-1.0); TOTAL PROTEIN 6.1 g/dL (6.4-8.2)
[2021-07-16 07:15] VITALS: BP 104/62
[2021-07-16] MEDS: IV NORMAL SALINE 1000ML BAG 1,000 ML IV ONE (08:53)
[2021-07-16] MEDS: HYOSCYAMINE ER 0.375 MG TAB.ER.12H PO SCH ×2 (09:00→21:00)
--- NOTE | 2021-07-16 10:34 | PDOC ---
[employer] PROGRESS NOTE Date of Service DOS: DATE: 07/16/21 TIME: 10:31 Chief Complaint Chief Complaint Leaking J-tube and PEG tube sites Complex GI history Multiple GI procedures Psychiatric issues Severe gastroparesis G-tube J-tube Recent second J-tube has been removed Pyloroplasty Home TPN Recent sepsis with intubation and respiratory failure Multiple EGDs H pylori GERD Hypertension UTI History of Present Illness History of Present Illness 07/16/2021 Patient seen and examined Discussed with RN Chart reviewed Vitals/I&O Vitals/I&O: Vital Signs Date Time Temp Pulse Resp B/P (MAP) Pulse Ox O2 Delivery O2 Flow Rate FiO2 07/16/21 08:17 Room Air 07/16/21 07:15 98.0 101 18 104/62 (76) 97 98.0 Physical Exam General: Alert, Cooperative, mild distress, moderate distress Lungs: Clear Abdomen: Other (tender, g tube, also has a J-tubeAlso has an old J-tube site that is been removed has ostomy bag over that site) Extremities: No cyanosis, No edema Skin: No breakdown, No significant lesion Labs Labs: Laboratory Tests Test 07/15/21 15:05 07/15/21 15:32 07/16/21 05:30 Urine Color Yellow Urine Clarity Clear Urine pH 5.5 (<5.0-8.0) Urine Specific [place] >=1.030 (1.000-1.030) Urine Protein Negative mg/dL (NEG-TRACE) Urine Glucose (UA) Negative mg/dL (NEG) Urine Ketones (Stick) Negative mg/dL (NEG) Urine Blood Moderate (NEG) Urine Nitrite Negative (NEG) Urine Bilirubin Negative (NEG) Urine Urobilinogen Dipstick 1.0 mg/dL (0.2 mg/dL) Urine Leukocyte Esterase Trace (NEG) Urine RBC 6-10 /HPF (0-2) Urine WBC 5-10 /HPF (0-4) Urine Squamous Epithelial Cells Many /LPF Urine Bacteria Moderate /HPF (0-FEW) Urine Hyaline Casts Few /HPF Urine Mucus Mod /LPF Urine Yeast Present /HPF White Blood Count 6.4 x10^3/uL (4.0-11.0) 4.4 x10^3/uL (4.0-11.0) Red Blood Count 3.49 x10^6/uL (3.50-5.40) 3.11 x10^6/uL (3.50-5.40) Hemoglobin 9.2 g/dL (12.0-15.5) 8.2 g/dL (12.0-15.5) Hematocrit 28.8 % (36.0-47.0) 25.9 % (36.0-47.0) Mean Corpuscular Volume 82 fL (79-100) 83 fL (79-100) Mean Corpuscular Hemoglobin 26 pg (25-35) 26 pg (25-35) Mean Corpuscular Hemoglobin Concent 32 g/dL (31-37) 32 g/dL (31-37) Red Cell Distribution Width 21.0 % (11.5-14.5) 21.5 % (11.5-14.5) Platelet Count 90 x10^3/uL (140-400) 131 x10^3/uL (140-400) Neutrophils (%) (Auto) 66 % (31-73) 56 % (31-73) Lymphocytes (%) (Auto) 17 % (24-48) 26 % (24-48) Monocytes (%) (Auto) 17 % (0-9) 17 % (0-9) Eosinophils (%) (Auto) 0 % (0-3) 1 % (0-3) Basophils (%) (Auto) 1 % (0-3) 0 % (0-3) Neutrophils # (Auto) 4.2 x10^3/uL (1.8-7.7) 2.4 x10^3/uL (1.8-7.7) Lymphocytes # (Auto) 1.1 x10^3/uL (1.0-4.8) 1.1 x10^3/uL (1.0-4.8) Monocytes # (Auto) 1.1 x10^3/uL (0.0-1.1) 0.8 x10^3/uL (0.0-1.1) Eosinophils # (Auto) 0.0 x10^3/uL (0.0-0.7) 0.0 x10^3/uL (0.0-0.7) Basophils # (Auto) 0.0 x10^3/uL (0.0-0.2) 0.0 x10^3/uL (0.0-0.2) Platelet Estimate Decreased (ADEQUATE) Anisocytosis Mod Tear Drop Cells Mod Ovalocytes Few Sodium Level 140 mmol/L (136-145) 142 mmol/L (136-145) Potassium Level 4.3 mmol/L (3.5-5.1) 4.0 mmol/L (3.5-5.1) Chloride Level 107 mmol/L (98-107) 110 mmol/L (98-107) Carbon Dioxide Level 25 mmol/L (21-32) 26 mmol/L (21-32) Anion Gap 8 (6-14) 6 (6-14) Blood Urea Nitrogen 17 mg/dL (7-20) 10 mg/dL (7-20) Creatinine 0.8 mg/dL (0.6-1.0) 0.6 mg/dL (0.6-1.0) Estimated GFR (Cockcroft-Gault) 88.9 123.9 BUN/Creatinine Ratio 21 (6-20) 17 (6-20) Glucose Level 89 mg/dL (70-99) 74 mg/dL (70-99) Lactic Acid Level 1.4 mmol/L (0.4-2.0) Calcium Level 8.1 mg/dL (8.5-10.1) 7.6 mg/dL (8.5-10.1) Total Bilirubin 0.1 mg/dL (0.2-1.0) 0.3 mg/dL (0.2-1.0) Aspartate Amino Transf (AST/SGOT) 13 U/L (15-37) 16 U/L (15-37) Alanine Aminotransferase (ALT/SGPT) 21 U/L (14-59) 24 U/L (14-59) Alkaline Phosphatase 145 U/L (46-116) 132 U/L (46-116) Total Protein 7.0 g/dL (6.4-8.2) 6.1 g/dL (6.4-8.2) Albumin 3.6 g/dL (3.4-5.0) 3.0 g/dL (3.4-5.0) Albumin/Globulin Ratio 1.1 (1.0-1.7) 1.0 (1.0-1.7) Procalcitonin 0.24 ng/mL (0.00-0.10) Assessment and Plan Assessmemt and Plan Problems Medical Problems: (1) Intractable abdominal pain Status: Acute Leaking J-tube and PEG tube sites Complex GI history Multiple GI procedures Psychiatric issues (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 Mohr Start PPN Home meds DVT prophylaxis Full code Trend labs Appreciate GI input Long-term prognosis guarded Comment Review of Relevant I have reviewed the following items lalo (where applicable) has been applied. Medications: Current Medications Medications (Trade) Dose Ordered Sig/Kel Route PRN Reason Start Time Stop Time Status Last Admin Dose Admin Hydromorphone HCl (Dilaudid) 1 mg PRN Q15MIN PRN IV/SQ PAIN GREATER THAN 3/10 07/15/21 15:15 07/16/21 15:14 07/15/21 21:41 Sodium Chloride 1,000 ml @ 1,000 mls/hr 1X ONCE IV 07/15/21 15:15 07/15/21 16:14 DC 07/15/21 15:38 Ondansetron HCl (Zofran) 4 mg 1X ONCE IVP 07/15/21 15:15 07/15/21 15:16 DC 07/15/21 15:37 Sodium Chloride 1,000 ml @ 1,000 mls/hr 1X ONCE IV 07/15/21 15:15 07/15/21 16:14 DC 07/15/21 17:28 Lorazepam (Ativan Inj) 1 mg PRN Q8HRS PRN IVP ANXIETY / AGITATION 07/15/21 21:00 07/16/21 10:17 Diphenhydramine HCl (Benadryl) 25 mg PRN Q6HRS PRN IVP ITCHING 07/15/21 21:00 07/16/21 08:45 Sodium Chloride 1,000 ml @ 75 mls/hr 1X ONCE IV 07/15/21 21:00 07/16/21 10:19 DC 07/15/21 21:00 Hydromorphone HCl (Dilaudid) 1 mg PRN Q3HRS PRN IVP SEVERE PAIN 7-10 07/15/21 21:00 07/16/21 07:47 Justifications for Admission Other Justification Fever LALITHA WEBB III DO Jul 16, 2021 10:34
--- NOTE | 2021-07-16 10:43 | NUR ---
positive blood culture. gram negative chasity in 1 of 4 bottles. [address] Bynum [id number].
[2021-07-16 10:55] VITALS: BP 107/61
--- NOTE | 2021-07-16 11:43 | PDOC ---
SURGICAL PROGRESS NOTE DATE: 07/16/21 TIME: 11:41 Subjective Patient is well known 07/14 Removal of LUQ J-tube, change of Gastrostomy and RUQ J-tube Returned with worsening pain, she does have significant chronic abdominal pain requiring significant narcotic management Vital Signs Vital Signs Date Time Temp Pulse Resp B/P (MAP) Pulse Ox O2 Delivery O2 Flow Rate FiO2 07/16/21 10:55 98.3 107 18 107/61 (76) 93 Room Air 98.3 General: Alert, Cooperative Abdomen: Soft, Other (tubes in place) Labs Laboratory Tests Test 07/15/21 15:05 07/15/21 15:32 07/16/21 05:30 Urine Color Yellow Urine Clarity Clear Urine pH 5.5 (<5.0-8.0) Urine Specific [place] >=1.030 (1.000-1.030) Urine Protein Negative mg/dL (NEG-TRACE) Urine Glucose (UA) Negative mg/dL (NEG) Urine Ketones (Stick) Negative mg/dL (NEG) Urine Blood Moderate (NEG) Urine Nitrite Negative (NEG) Urine Bilirubin Negative (NEG) Urine Urobilinogen Dipstick 1.0 mg/dL (0.2 mg/dL) Urine Leukocyte Esterase Trace (NEG) Urine RBC 6-10 /HPF (0-2) Urine WBC 5-10 /HPF (0-4) Urine Squamous Epithelial Cells Many /LPF Urine Bacteria Moderate /HPF (0-FEW) Urine Hyaline Casts Few /HPF Urine Mucus Mod /LPF Urine Yeast Present /HPF White Blood Count 6.4 x10^3/uL (4.0-11.0) 4.4 x10^3/uL (4.0-11.0) Red Blood Count 3.49 x10^6/uL (3.50-5.40) 3.11 x10^6/uL (3.50-5.40) Hemoglobin 9.2 g/dL (12.0-15.5) 8.2 g/dL (12.0-15.5) Hematocrit 28.8 % (36.0-47.0) 25.9 % (36.0-47.0) Mean Corpuscular Volume 82 fL (79-100) 83 fL (79-100) Mean Corpuscular Hemoglobin 26 pg (25-35) 26 pg (25-35) Mean Corpuscular Hemoglobin Concent 32 g/dL (31-37) 32 g/dL (31-37) Red Cell Distribution Width 21.0 % (11.5-14.5) 21.5 % (11.5-14.5) Platelet Count 90 x10^3/uL (140-400) 131 x10^3/uL (140-400) Neutrophils (%) (Auto) 66 % (31-73) 56 % (31-73) Lymphocytes (%) (Auto) 17 % (24-48) 26 % (24-48) Monocytes (%) (Auto) 17 % (0-9) 17 % (0-9) Eosinophils (%) (Auto) 0 % (0-3) 1 % (0-3) Basophils (%) (Auto) 1 % (0-3) 0 % (0-3) Neutrophils # (Auto) 4.2 x10^3/uL (1.8-7.7) 2.4 x10^3/uL (1.8-7.7) Lymphocytes # (Auto) 1.1 x10^3/uL (1.0-4.8) 1.1 x10^3/uL (1.0-4.8) Monocytes # (Auto) 1.1 x10^3/uL (0.0-1.1) 0.8 x10^3/uL (0.0-1.1) Eosinophils # (Auto) 0.0 x10^3/uL (0.0-0.7) 0.0 x10^3/uL (0.0-0.7) Basophils # (Auto) 0.0 x10^3/uL (0.0-0.2) 0.0 x10^3/uL (0.0-0.2) Platelet Estimate Decreased (ADEQUATE) Anisocytosis Mod Tear Drop Cells Mod Ovalocytes Few Sodium Level 140 mmol/L (136-145) 142 mmol/L (136-145) Potassium Level 4.3 mmol/L (3.5-5.1) 4.0 mmol/L (3.5-5.1) Chloride Level 107 mmol/L (98-107) 110 mmol/L (98-107) Carbon Dioxide Level 25 mmol/L (21-32) 26 mmol/L (21-32) Anion Gap 8 (6-14) 6 (6-14) Blood Urea Nitrogen 17 mg/dL (7-20) 10 mg/dL (7-20) Creatinine 0.8 mg/dL (0.6-1.0) 0.6 mg/dL (0.6-1.0) Estimated GFR (Cockcroft-Gault) 88.9 123.9 BUN/Creatinine Ratio 21 (6-20) 17 (6-20) Glucose Level 89 mg/dL (70-99) 74 mg/dL (70-99) Lactic Acid Level 1.4 mmol/L (0.4-2.0) Calcium Level 8.1 mg/dL (8.5-10.1) 7.6 mg/dL (8.5-10.1) Total Bilirubin 0.1 mg/dL (0.2-1.0) 0.3 mg/dL (0.2-1.0) Aspartate Amino Transf (AST/SGOT) 13 U/L (15-37) 16 U/L (15-37) Alanine Aminotransferase (ALT/SGPT) 21 U/L (14-59) 24 U/L (14-59) Alkaline Phosphatase 145 U/L (46-116) 132 U/L (46-116) Total Protein 7.0 g/dL (6.4-8.2) 6.1 g/dL (6.4-8.2) Albumin 3.6 g/dL (3.4-5.0) 3.0 g/dL (3.4-5.0) Albumin/Globulin Ratio 1.1 (1.0-1.7) 1.0 (1.0-1.7) Procalcitonin 0.24 ng/mL (0.00-0.10) Laboratory Tests Test 07/15/21 15:05 07/15/21 15:32 07/16/21 05:30 Urine Color Yellow Urine Clarity Clear Urine pH 5.5 (<5.0-8.0) Urine Specific [place] >=1.030 (1.000-1.030) Urine Protein Negative mg/dL (NEG-TRACE) Urine Glucose (UA) Negative mg/dL (NEG) Urine Ketones (Stick) Negative mg/dL (NEG) Urine Blood Moderate (NEG) Urine Nitrite Negative (NEG) Urine Bilirubin Negative (NEG) Urine Urobilinogen Dipstick 1.0 mg/dL (0.2 mg/dL) Urine Leukocyte Esterase Trace (NEG) Urine RBC 6-10 /HPF (0-2) Urine WBC 5-10 /HPF (0-4) Urine Squamous Epithelial Cells Many /LPF Urine Bacteria Moderate /HPF (0-FEW) Urine Hyaline Casts Few /HPF Urine Mucus Mod /LPF Urine Yeast Present /HPF White Blood Count 6.4 x10^3/uL (4.0-11.0) 4.4 x10^3/uL (4.0-11.0) Red Blood Count 3.49 x10^6/uL (3.50-5.40) 3.11 x10^6/uL (3.50-5.40) Hemoglobin 9.2 g/dL (12.0-15.5) 8.2 g/dL (12.0-15.5) Hematocrit 28.8 % (36.0-47.0) 25.9 % (36.0-47.0) Mean Corpuscular Volume 82 fL (79-100) 83 fL (79-100) Mean Corpuscular Hemoglobin 26 pg (25-35) 26 pg (25-35) Mean Corpuscular Hemoglobin Concent 32 g/dL (31-37) 32 g/dL (31-37) Red Cell Distribution Width 21.0 % (11.5-14.5) 21.5 % (11.5-14.5) Platelet Count 90 x10^3/uL (140-400) 131 x10^3/uL (140-400) Neutrophils (%) (Auto) 66 % (31-73) 56 % (31-73) Lymphocytes (%) (Auto) 17 % (24-48) 26 % (24-48) Monocytes (%) (Auto) 17 % (0-9) 17 % (0-9) Eosinophils (%) (Auto) 0 % (0-3) 1 % (0-3) Basophils (%) (Auto) 1 % (0-3) 0 % (0-3) Neutrophils # (Auto) 4.2 x10^3/uL (1.8-7.7) 2.4 x10^3/uL (1.8-7.7) Lymphocytes # (Auto) 1.1 x10^3/uL (1.0-4.8) 1.1 x10^3/uL (1.0-4.8) Monocytes # (Auto) 1.1 x10^3/uL (0.0-1.1) 0.8 x10^3/uL (0.0-1.1) Eosinophils # (Auto) 0.0 x10^3/uL (0.0-0.7) 0.0 x10^3/uL (0.0-0.7) Basophils # (Auto) 0.0 x10^3/uL (0.0-0.2) 0.0 x10^3/uL (0.0-0.2) Platelet Estimate Decreased (ADEQUATE) Anisocytosis Mod Tear Drop Cells Mod Ovalocytes Few Sodium Level 140 mmol/L (136-145) 142 mmol/L (136-145) Potassium Level 4.3 mmol/L (3.5-5.1) 4.0 mmol/L (3.5-5.1) Chloride Level 107 mmol/L (98-107) 110 mmol/L (98-107) Carbon Dioxide Level 25 mmol/L (21-32) 26 mmol/L (21-32) Anion Gap 8 (6-14) 6 (6-14) Blood Urea Nitrogen 17 mg/dL (7-20) 10 mg/dL (7-20) Creatinine 0.8 mg/dL (0.6-1.0) 0.6 mg/dL (0.6-1.0) Estimated GFR (Cockcroft-Gault) 88.9 123.9 BUN/Creatinine Ratio 21 (6-20) 17 (6-20) Glucose Level 89 mg/dL (70-99) 74 mg/dL (70-99) Lactic Acid Level 1.4 mmol/L (0.4-2.0) Calcium Level 8.1 mg/dL (8.5-10.1) 7.6 mg/dL (8.5-10.1) Total Bilirubin 0.1 mg/dL (0.2-1.0) 0.3 mg/dL (0.2-1.0) Aspartate Amino Transf (AST/SGOT) 13 U/L (15-37) 16 U/L (15-37) Alanine Aminotransferase (ALT/SGPT) 21 U/L (14-59) 24 U/L (14-59) Alkaline Phosphatase 145 U/L (46-116) 132 U/L (46-116) Total Protein 7.0 g/dL (6.4-8.2) 6.1 g/dL (6.4-8.2) Albumin 3.6 g/dL (3.4-5.0) 3.0 g/dL (3.4-5.0) Albumin/Globulin Ratio 1.1 (1.0-1.7) 1.0 (1.0-1.7) Procalcitonin 0.24 ng/mL (0.00-0.10) Problem List Problems Medical Problems: (1) Intractable abdominal pain Status: Acute Assessment/Plan will check tube placement management of pain tpn Justicifation of Admission Dx: Justifications for Admission: Justification of Admission Dx: Yes Sepsis: Bacteremia HANNAH VALLE APRN Jul 16, 2021 11:43
[2021-07-16] MEDS ORDERED: IOHEXOL 300 MG/ML 50 ML VIAL. IJ ONE ×2 (11:45→12:15)
[2021-07-16] MEDS ORDERED: CONTRAST GIVEN. MC PRN (12:15)
[2021-07-16] MEDS: TPN PER PHARMACY MC PRN ×2 (12:58→13:15)
[2021-07-16] MEDS: ONDANSETRON PF 4 MG/2 ML VIAL. IVP PRN (13:06)
--- NOTE | 2021-07-16 13:22 | RAD ---
EXAM: XR ABDOMEN 1V 07/16/2021 12:38 PM CLINICAL INDICATION: G and J-tube evaluation COMPARISON: Abdominal radiograph 07/15/2021 TECHNIQUE: AP supine view the abdomen FINDINGS: Contrast has been injected through the gastrostomy tube, which is seen within the stomach. A jejunostomy tube has also been injected with contrast, and is seen within small bowel in the right lower quadrant. No evidence of contrast leak. There is contrast in the colon from a previous study. Central venous catheter tip in the superior cavoatrial junction. The lung bases are clear. Cholecyste ctomy clips are noted. IMPRESSION: Gastrostomy tube and jejunostomy tube are in the expected locations in the stomach and s mall bowel, respectively. Electronically signed by: Lisa Johnson MD (07/16/2021 1:20 PM) [id number]
--- NOTE | 2021-07-16 13:59 | NUR ---
SW following. Discussed with RN, pt from home with family. SW verified pt is still on services with [facility] out of [place], [place] (ph: [phone], fax: [phone]). Pt does home TPN through [facility]. SW will continue to follow.
[2021-07-16 15:00] VITALS: BP 121/78
[2021-07-16 19:00] VITALS: BP 119/61
[2021-07-16] MEDS: diphenhydrAMINE HCL 25 MG CAPSULE PO SCH (21:00)
[2021-07-16] MEDS ORDERED: DEXTROSE 70% IV SCH (22:00)
[2021-07-16] MEDS ORDERED: TOTAL PARENTERAL NUTRITION IV SCH (22:00)
[2021-07-16] MEDS ORDERED: AMINO ACID IV SCH (22:00)
[2021-07-16] MEDS ORDERED: [UNRECOGNIZED DRUG - OTHER] IV SCH (22:00)
[2021-07-16 23:10] VITALS: BP 120/71
[2021-07-17] VITALS (7 sets, daily range): BP systolic 99–124; BP diastolic 45–70
[2021-07-17] MEDS: HYDROmorphone 2 MG/ML INJ. IVP PRN ×7 (01:09→20:17)
[2021-07-17] MEDS: MIDODRINE 5 MG TABLET PEG SCH ×2 (06:13→17:40)
[2021-07-17] MEDS: HYOSCYAMINE ER 0.375 MG TAB.ER.12H PO SCH ×2 (08:58→21:00)
[2021-07-17] MEDS: diphenhydrAMINE 50 MG/ML VIAL IVP PRN ×2 (09:22→16:52)
--- NOTE | 2021-07-17 09:52 | PDOC ---
[employer] PROGRESS NOTE Date of Service DOS: DATE: 07/17/21 TIME: 09:50 Chief Complaint Chief Complaint Leaking J-tube and PEG tube sites Complex GI history Multiple GI procedures Psychiatric issues (suspect element of possible Munchhausen's?) Severe gastroparesis G-tube J-tube Recent second J-tube has been removed Pyloroplasty Home TPN Recent sepsis with intubation and respiratory failure Multiple EGDs H pylori GERD Hypertension UTI History of Present Illness History of Present Illness 07/17/2019 Patient seen and examined She seems somewhat sedated Discussed with RN Patient has a low-grade temperature 100 degrees Chart reviewed I went ahead and started IV Levaquin 07/16/2021 Patient seen and examined Discussed with RN Chart reviewed Vitals/I&O Vitals/I&O: Vital Signs Date Time Temp Pulse Resp B/P (MAP) Pulse Ox O2 Delivery O2 Flow Rate FiO2 07/17/21 08:07 Room Air 07/17/21 07:00 98.5 109 16 99/54 (69) 99 98.5 I & O 07/16/21 07/16/21 07/17/21 15:00 23:00 07:00 Intake Total 0 ml Balance 0 ml Physical Exam General: Cooperative, No acute distress, Other (Flat affect today) Heart: Regular rate Lungs: Clear Abdomen: Soft, Other (J-tube in place G-tube in place old ostomy bag over previous J-tube site multiple healing scars) Extremities: No cyanosis, No edema Skin: No breakdown, No significant lesion Assessment and Plan Assessmemt and Plan Problems Medical Problems: (1) Intractable abdominal pain Status: Acute Leaking J-tube and PEG tube sites Complex GI history Multiple GI procedures Psychiatric issues (suspect element of possible Munchhausen's ?) Severe gastroparesis G-tube J-tube Recent second J-tube has been removed Pyloroplasty Home TPN Recent sepsis with intubation and respiratory failure Multiple EGDs H pylori GERD Hypertension UTI 1 of 4 bottles positive on blood culture? Contaminant Plan General surgery and GI following Continue TPN I went ahead and started empiric Levaquin IV DVT prophylaxis Full code Trend labs PT OT when possible Comment Review of Relevant I have reviewed the following items lalo (where applicable) has been applied. Medications: Current Medications Medications (Trade) Dose Ordered Sig/Kel Route PRN Reason Start Time Stop Time Status Last Admin Dose Admin Iohexol (Omnipaque 300 Mg/ml) 50 ml 1X ONCE IJ 07/16/21 11:45 07/16/21 11:46 DC 07/16/21 12:50 Iohexol (Omnipaque 300 Mg/ml) 50 ml 1X ONCE IJ 07/16/21 12:15 07/16/21 12:16 DC 07/16/21 12:45 Sodium Chloride 75 meq/Potassium Chloride 50 meq/ Magnesium Sulfate 28 meq/Calcium Gluconate 13 meq/ Multivitamins 10 ml/Zinc/Copper/ Manganese/ Selenium 1 ml/ Total Parenteral Nutrition/Amino Acids/Dextrose 1,650 ml @ 126.923 mls/hr TPN CONT IV 07/16/21 22:00 07/17/21 10:59 07/16/21 22:04 Justifications for Admission Other Justification Fever LALITHA WEBB III DO Jul 17, 2021 09:52
--- NOTE | 2021-07-17 10:37 | NUR ---
SW following. Discussed with RN, pt from home with family. Surgery following. Pt on IV abx. Pt will discharge home with [facility] (ph: [phone], fax: [phone]) when stable. SW will continue to follow.
[2021-07-17] MEDS: TPN PER PHARMACY MC PRN (11:10)
--- NOTE | 2021-07-17 11:11 | NUR ---
Pharmacy TPN Dosing Note S: MARIONSUNITHA Billingsley is a 21 year old F Currently receiving Central Cyclic TPN started 07/16/21 B:Pertinent PMH: NPO/PEG TUBE Height: 5 feet, 7 inches Weight: 88 kg Current diet: NPO LABS: Sodium: 142 Potassium: 4.0 Chloride: 110 Calcium: 7.6 Corrected Calcium: 8.40 Magnesium: CO2: 26 SCr: 0.6 Glucose: 74 Albumin: 3.0 AST: ALT: 132 TPN FORMULA: TPN TYPE: Central Cyclic AMINO ACIDS: 82 gm DEXTROSE: 165 gm LIPIDS: 50 GM / MWF SODIUM CHLORIDE: 75 mEq POTASSIUM CHLORIDE: 50 mEq MAGNESIUM: 28 mEq CALCIUM: 13 mEq MULTIPLE VITAMIN: 10 ml TRACE ELEMENTS: 1 ml(s) TPN PLAN: Continue home formula with lipids MWF R: Continue TPN Will monitor electrolytes, glucose, and tolerance to TPN. Renu Melgar RPH, 07/17/21 1111
--- NOTE | 2021-07-17 11:28 | PDOC ---
SURGICAL PROGRESS NOTE DATE: 07/17/21 TIME: 11:25 Subjective moaning Vital Signs Vital Signs Date Time Temp Pulse Resp B/P (MAP) Pulse Ox O2 Delivery O2 Flow Rate FiO2 07/17/21 11:08 98.9 110 16 124/45 (71) 93 Room Air 98.9 I&O Intake and Output 07/17/21 07:00 Intake Total 0 ml Balance 0 ml Intake Oral 0 ml General: Other (moaning for mom) Abdomen: Soft, Other (tubes in place) Labs Laboratory Tests Test 07/15/21 15:05 07/15/21 15:32 07/16/21 05:30 Urine Color Yellow Urine Clarity Clear Urine pH 5.5 (<5.0-8.0) Urine Specific [place] >=1.030 (1.000-1.030) Urine Protein Negative mg/dL (NEG-TRACE) Urine Glucose (UA) Negative mg/dL (NEG) Urine Ketones (Stick) Negative mg/dL (NEG) Urine Blood Moderate (NEG) Urine Nitrite Negative (NEG) Urine Bilirubin Negative (NEG) Urine Urobilinogen Dipstick 1.0 mg/dL (0.2 mg/dL) Urine Leukocyte Esterase Trace (NEG) Urine RBC 6-10 /HPF (0-2) Urine WBC 5-10 /HPF (0-4) Urine Squamous Epithelial Cells Many /LPF Urine Bacteria Moderate /HPF (0-FEW) Urine Hyaline Casts Few /HPF Urine Mucus Mod /LPF Urine Yeast Present /HPF White Blood Count 6.4 x10^3/uL (4.0-11.0) 4.4 x10^3/uL (4.0-11.0) Red Blood Count 3.49 x10^6/uL (3.50-5.40) 3.11 x10^6/uL (3.50-5.40) Hemoglobin 9.2 g/dL (12.0-15.5) 8.2 g/dL (12.0-15.5) Hematocrit 28.8 % (36.0-47.0) 25.9 % (36.0-47.0) Mean Corpuscular Volume 82 fL (79-100) 83 fL (79-100) Mean Corpuscular Hemoglobin 26 pg (25-35) 26 pg (25-35) Mean Corpuscular Hemoglobin Concent 32 g/dL (31-37) 32 g/dL (31-37) Red Cell Distribution Width 21.0 % (11.5-14.5) 21.5 % (11.5-14.5) Platelet Count 90 x10^3/uL (140-400) 131 x10^3/uL (140-400) Neutrophils (%) (Auto) 66 % (31-73) 56 % (31-73) Lymphocytes (%) (Auto) 17 % (24-48) 26 % (24-48) Monocytes (%) (Auto) 17 % (0-9) 17 % (0-9) Eosinophils (%) (Auto) 0 % (0-3) 1 % (0-3) Basophils (%) (Auto) 1 % (0-3) 0 % (0-3) Neutrophils # (Auto) 4.2 x10^3/uL (1.8-7.7) 2.4 x10^3/uL (1.8-7.7) Lymphocytes # (Auto) 1.1 x10^3/uL (1.0-4.8) 1.1 x10^3/uL (1.0-4.8) Monocytes # (Auto) 1.1 x10^3/uL (0.0-1.1) 0.8 x10^3/uL (0.0-1.1) Eosinophils # (Auto) 0.0 x10^3/uL (0.0-0.7) 0.0 x10^3/uL (0.0-0.7) Basophils # (Auto) 0.0 x10^3/uL (0.0-0.2) 0.0 x10^3/uL (0.0-0.2) Platelet Estimate Decreased (ADEQUATE) Anisocytosis Mod Tear Drop Cells Mod Ovalocytes Few Sodium Level 140 mmol/L (136-145) 142 mmol/L (136-145) Potassium Level 4.3 mmol/L (3.5-5.1) 4.0 mmol/L (3.5-5.1) Chloride Level 107 mmol/L (98-107) 110 mmol/L (98-107) Carbon Dioxide Level 25 mmol/L (21-32) 26 mmol/L (21-32) Anion Gap 8 (6-14) 6 (6-14) Blood Urea Nitrogen 17 mg/dL (7-20) 10 mg/dL (7-20) Creatinine 0.8 mg/dL (0.6-1.0) 0.6 mg/dL (0.6-1.0) Estimated GFR (Cockcroft-Gault) 88.9 123.9 BUN/Creatinine Ratio 21 (6-20) 17 (6-20) Glucose Level 89 mg/dL (70-99) 74 mg/dL (70-99) Lactic Acid Level 1.4 mmol/L (0.4-2.0) Calcium Level 8.1 mg/dL (8.5-10.1) 7.6 mg/dL (8.5-10.1) Total Bilirubin 0.1 mg/dL (0.2-1.0) 0.3 mg/dL (0.2-1.0) Aspartate Amino Transf (AST/SGOT) 13 U/L (15-37) 16 U/L (15-37) Alanine Aminotransferase (ALT/SGPT) 21 U/L (14-59) 24 U/L (14-59) Alkaline Phosphatase 145 U/L (46-116) 132 U/L (46-116) Total Protein 7.0 g/dL (6.4-8.2) 6.1 g/dL (6.4-8.2) Albumin 3.6 g/dL (3.4-5.0) 3.0 g/dL (3.4-5.0) Albumin/Globulin Ratio 1.1 (1.0-1.7) 1.0 (1.0-1.7) Procalcitonin 0.24 ng/mL (0.00-0.10) Problem List Problems Medical Problems: (1) Intractable abdominal pain Status: Acute Assessment/Plan supportive care chronic pain issues will ask Id to eval, did have a + blood culture Justicifation of Admission Dx: Justifications for Admission: Justification of Admission Dx: Yes Sepsis: Bacteremia HANNAH VALLE APRN Jul 17, 2021 11:28
--- NOTE | 2021-07-17 12:12 | PDOC2 ---
Consult: REASON FOR CONSULTATION: ANTIBIOTIC MANAGEMENT HISTORY OF PRESENT ILLNESS: A 21-year-old female well known to our service from recent admission who presented to the ER multiple times this week with complaints of chronic abdominal pain, nausea and fever of 101. She was recently discharged from [facility] last month after diagnosed with Klebsiella pneumonia bacteremia. Repeat blood cultures were negative. Patient underwent G-tube and G-tube exchange on July 14, [address] [facility] with complaints of acute on chronic abdominal pain. Here at [facility] WBC is normal. Lactate was normal. Blood cultures were done. Gram-negative chasity have been reported In blood culture. Patient is currently on Levaquin. ID consultation is requested for antibiotic management. REVIEW OF SYSTEMS: Complains of nausea, fevers, acute on chronic abdominal pain, J-tube drainage, PAST MEDICAL HISTORY: Migraine, depression, hypertension, gastroparesis, on G-tube, on TPN through central line placed sometime in March, has had multiple CLABSI, central lines have been removed, previously had fungemia and was exchanged at [facility] per the patient report. Depression, anxiety, history of CVA, history of urinary retention, history of Carrillo catheter in the past. PAST SURGICAL HISTORY: As per HPI. FAMILY HISTORY: As per HPI. SOCIAL HISTORY: Lives with family. Denies smoking, ETOH, or illicit drug use. CURRENT MEDICATIONS: Levaquin, Other medications reviewed in medication list. ALLERGIES: PENICILLIN, SULFA AND IRON. Has tolerated meropenem and cephalosporins well. REVIEW OF SYSTEMS: Negative except for above in HPI. PHYSICAL EXAMINATION: VITAL SIGNS: Reviewed GENERAL: Alert, oriented x 3 female sitting upright in chair, in mild distress. HEENT: Normocephalic, atraumatic. Anicteric sclerae. No thrush. Oral mucosa moist. NECK: Supple. LUNGS: Clear. Chest wall Port-A-Cath site clean. HEART: S1, S2, tachycardia. No murmurs. ABDOMEN: Nondistended, G-tube and J-tubes present. Mild irritation around both the tubes. EXTREMITIES: No edema. DERMATOLOGIC: Warm, dry, no generalized rash. NEUROLOGIC: Alert, oriented x 3, grossly nonfocal, anxious. PSYCHIATRIC: Anxious, otherwise cooperative. LABORATORY DATA: Reviewed MICROBIOLOGY: Blood culture, both sets 07/15/21, gram-negative chasity. ID and KEREN pending at this time. IMPRESSION: 1. Sepsis from gram-negative bacteremia. 2. Low-grade fever 3. Acute on chronic abdominal pain 4. History of gastroparesis. G tube , Two J tubes.Mild Irritation. TPN through central line. 5. Hypertension. 6. History of migraines and seizures. 7. History of anxiety and depression. 8. History of urinary retention, status post Carrillo intermittently, urinary tract infection. 9. 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 10. Transaminitis, chronic, on TPN. 11. Chronic abdominal pain. 12. History of multiple J-tube exchanges. 13. HISTORY OF ALLERGIES TO SULFA AND PENICILLIN WITH NAUSEA AND VOMITING AND RASH, has tolerated Rocephin and meropenem. 14. COVID positive May 25 and June 14 admission RECOMMENDATIONS: 1. DC Levaquin. Start cefepime 4. Repeat blood cultures. 5. Follow up labs and cultures. 6. Port-A-Cath, may need removal. 7. Pain management per primary. 8. Maintain aspiration precaution. 9. GI and General Surgery has evaluated the patient. Continue local care of two J-tubes and G-tube. 10. Continue supportive care. Thank you for allowing me to participate in this patient's care. If you have any questions, do not hesitate to contact me. Discussed with LEATHA. GAYLE RODRIGUEZ MD Jul 17, 2021 12:12
[2021-07-17] MEDS: CEFEPIME HCL IV Push 2 GM VIAL. IVP SCH ×2 (12:46→22:00)
[2021-07-17] MEDS: diphenhydrAMINE HCL 25 MG CAPSULE PO SCH (21:00)
[2021-07-17] MEDS ORDERED: [UNRECOGNIZED DRUG - OTHER] IV SCH (22:00)
[2021-07-17] MEDS ORDERED: DEXTROSE 70% IV SCH (22:00)
[2021-07-17] MEDS ORDERED: TOTAL PARENTERAL NUTRITION IV SCH (22:00)
[2021-07-17] MEDS ORDERED: AMINO ACID IV SCH (22:00)
[2021-07-18] VITALS (7 sets, daily range): BP systolic 100–117; BP diastolic 51–77
[2021-07-18] MEDS: HYDROmorphone 2 MG/ML INJ. IVP PRN ×7 (00:01→21:46)
[2021-07-18] MEDS: diphenhydrAMINE 50 MG/ML VIAL IVP PRN ×3 (04:09→21:46)
[2021-07-18] MEDS: CEFEPIME HCL IV Push 2 GM VIAL. IVP SCH ×2 (06:41→13:53)
[2021-07-18] MEDS: MIDODRINE 5 MG TABLET PEG SCH ×2 (06:41→07:02)
[2021-07-18] MEDS: SCOPOLAMINE 1.5MG PATCH. TD SCH (07:01)
[2021-07-18] MEDS: HYOSCYAMINE ER 0.375 MG TAB.ER.12H PO SCH ×2 (07:01→21:00)
[2021-07-18] MEDS: TPN PER PHARMACY MC PRN ×2 (11:41→11:43)
--- NOTE | 2021-07-18 11:42 | NUR ---
Pharmacy TPN Dosing Note S: SUNITHA SCHULTZ is a 21 year old F Currently receiving Central Cyclic TPN started 07/16/21 B:Pertinent PMH: NPO/PEG TUBE Height: 5 feet, 7 inches Weight: 88 kg Current diet: NPO LABS: Sodium: 142 Potassium: 4.0 Chloride: 110 Calcium: 7.6 Corrected Calcium: 8.40 Magnesium: CO2: 26 SCr: 0.6 Glucose: 74 Albumin: 3.0 AST: ALT: 132 TPN FORMULA: TPN TYPE: Central Cyclic AMINO ACIDS: 82 gm DEXTROSE: 165 gm LIPIDS: 50 GM / MWF SODIUM CHLORIDE: 75 mEq POTASSIUM CHLORIDE: 50 mEq MAGNESIUM: 28 mEq MULTIPLE VITAMIN: 10 ml TRACE ELEMENTS: 1 ml(s) TPN PLAN: Lipids removed per MWF schedule Calcium gluconate removed d/t shortage at compounding pharmacy. Will replace as needed with IVPB per labs with hospital supply. R: Change TPN per plan and ordered formula Will monitor electrolytes, glucose, and tolerance to TPN. Renu Melgar [facility], 07/18/21 1147
--- NOTE | 2021-07-18 11:47 | PDOC ---
Infectious Disease Note Subjective: Subjective Patient continues to have abdominal pain Occasional nausea, no vomiting Denies any fevers or chills Dysuria is improving Patient does self-catheterization as needed Vital Signs: Vital Signs Vital Signs Date Time Temp Pulse Resp B/P (MAP) Pulse Ox O2 Delivery O2 Flow Rate FiO2 07/18/21 10:53 97.7 108 18 104/57 (73) 96 Room Air 97.7 Physical Exam: PHYSICAL EXAM GENERAL: Alert, oriented x 3 female lying in bed, in mild distress. HEENT: Normocephalic, atraumatic. Anicteric sclerae. No thrush. Oral mucosa moist. NECK: Supple. LUNGS: Clear. Powered PICC right chest wall clean HEART: S1, S2, tachycardia. No murmurs. ABDOMEN: Nondistended, G-tube and J-tubes present. Mild irritation around both the tubes. no Carrillo in place EXTREMITIES: No edema. DERMATOLOGIC: Warm, dry, no generalized rash. NEUROLOGIC: Alert, oriented x 3, grossly nonfocal, anxious. PSYCHIATRIC: Anxious, otherwise cooperative. Medications: Inpatient Meds: Medications reviewed. Objective: Assessment: 1. Sepsis from gram-negative bacteremia. 2. Klebsiella pneumonia bacteremia present,1 out of 4 bottles present on admission 3. Enterococcus faecium amp resistant UTI 4. Acute on chronic abdominal pain History of gastroparesis. G tube , Two J tubes.Mild Irritation. TPN through central line. 5. Hypertension. 6. History of migraines and seizures. 7. History of anxiety and depression. 8. History of urinary retention, status post Carrillo intermittently, urinary tract infection. 9. 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 10. Transaminitis, chronic, on TPN. 11. Chronic abdominal pain. 12. History of multiple J-tube exchanges. 13. HISTORY OF ALLERGIES TO SULFA AND PENICILLIN WITH NAUSEA AND VOMITING AND RASH, has tolerated Rocephin and meropenem. 14. COVID positive May 25 and June 14 admission 15. Status post Port-A-Cath removal May 2021 16. Power PICC placed June 13 last week Plan: Plan of Care Change Cefepime to Ceftriaxone start linezolid Remove powered PICC.due to recurrent kleb pneumonia Pt wants to salvage it as repeat bc after port removal were neg Pros and cons were discussed Follow-up repeat blood cultures from July 17, 2021 which are negative so far Pain management per primary Maintain aspiration precaution General Surgery has evaluated the patient. Continue local care of two J-tubes and G-tube. Continue supportive care. Discussed with mother at bedside GAYLE RODRIGUEZ MD Jul 18, 2021 11:47
--- NOTE | 2021-07-18 14:18 | PDOC ---
[employer] PROGRESS NOTE Date of Service DOS: DATE: 07/18/21 TIME: 14:12 Chief Complaint Chief Complaint Acute on chronic abdominal pain Leaking J-tube and PEG tube sites Complex GI history Multiple GI procedures Psychiatric issues (suspect element of possible Munchhausen's?) Severe gastroparesis G-tube J-tube Recent second J-tube has been removed Pyloroplasty Home TPN Recent sepsis with intubation and respiratory failure Multiple EGDs H pylori GERD Hypertension UTI Sepsis from gram-negative bacteremia - History of gastroparesis. G tube , Two J tubes.Mild Irritation. TPN through central line. Hypertension. History of migraines and seizures. History of anxiety and depression. History of urinary retention, status post Carrillo intermittently, urinary tract infection. 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 Transaminitis, chronic, on TPN. H/o COVID positive May 25 and June 14 admission History of Present Illness History of Present Illness 07/18: Seen bedside is very anxious asking for IV Ativan repeatedly. Appears fairly somnolent. 07/17/2019 Patient seen and examined She seems somewhat sedated Discussed with RN Patient has a low-grade temperature 100 degrees Chart reviewed I went ahead and started IV Levaquin 07/16/2021 Patient seen and examined Discussed with RN Chart reviewed Vitals/I&O Vitals/I&O: Vital Signs Date Time Temp Pulse Resp B/P (MAP) Pulse Ox O2 Delivery O2 Flow Rate FiO2 07/18/21 10:53 97.7 108 18 104/57 (73) 96 Room Air 97.7 I & O 07/17/21 07/17/21 07/18/21 15:00 23:00 07:00 Intake Total 200 ml Balance 200 ml Physical Exam Physical Exam: GENERAL: Alert, oriented x 3 female lying in bed, in mild distress. HEENT: Normocephalic, atraumatic. Anicteric sclerae. No thrush. Oral mucosa moist. NECK: Supple. LUNGS: Clear. Chest wall Port-A-Cath site clean. HEART: S1, S2, tachycardia. No murmurs. ABDOMEN: Nondistended, G-tube and J-tubes present. Mild irritation around both the tubes. EXTREMITIES: No edema. DERMATOLOGIC: Warm, dry, no generalized rash. NEUROLOGIC: Alert, oriented x 3, grossly nonfocal, anxious. PSYCHIATRIC: Anxious, otherwise cooperative. General: Other (moaning for mom) Heart: Regular rate Lungs: Clear Abdomen: Soft, Other (tubes in place) Extremities: No cyanosis, No edema Skin: No breakdown, No significant lesion Assessment and Plan Assessmemt and Plan Problems Medical Problems: (1) Intractable abdominal pain Status: Acute Comment Review of Relevant I have reviewed the following items lalo (where applicable) has been applied. Medications: Current Medications Medications (Trade) Dose Ordered Sig/Kel Route PRN Reason Start Time Stop Time Status Last Admin Dose Admin Sodium Chloride 75 meq/Potassium Chloride 50 meq/ Magnesium Sulfate 28 meq/Calcium Gluconate 13 meq/ Multivitamins 10 ml/Zinc/Copper/ Manganese/ Selenium 1 ml/ Total Parenteral Nutrition/Amino Acids/Dextrose/ Fat Emulsion Intravenous 1,650 ml @ 126.923 mls/hr TPN CONT IV 07/17/21 22:00 07/18/21 10:59 DC 07/17/21 22:03 Justifications for Admission Other Justification Fever ABIGAIL GARCIA MD Jul 18, 2021 14:18
--- NOTE | 2021-07-18 14:40 | PDOC ---
SURGICAL PROGRESS NOTE DATE: 07/18/21 TIME: 14:39 Subjective Pt with c/o pain at J-tube site Vital Signs Vital Signs Date Time Temp Pulse Resp B/P (MAP) Pulse Ox O2 Delivery O2 Flow Rate FiO2 07/18/21 10:53 97.7 108 18 104/57 (73) 96 Room Air 97.7 I&O Intake and Output 07/18/21 07:00 Intake Total 200 ml Balance 200 ml IV Total 200 ml General: Alert, moderate distress Abdomen: Soft, Other (drainage around J-tube) Problem List Problems Medical Problems: (1) Intractable abdominal pain Status: Acute Assessment/Plan will ask wound care to screen tender helper J-tube site cont supportive care Justicifation of Admission Dx: Justifications for Admission: Justification of Admission Dx: Yes Sepsis: Bacteremia TORIE MILLER MD Jul 18, 2021 14:40
[2021-07-18] MEDS: cefTRIAXone IV Push 2 GM VIAL. IVP SCH (16:14)
--- NOTE | 2021-07-18 16:25 | NUR ---
At approximately 1600 patient c/o chest pain 7/10 in middle of her chest, VSS. Notified Dr. Duvall and received new orders. Addendum: 07/18/21 at 1656 by MARIA D NARAYANAN RN Tests and lab normal, notified Dr. Duvall, no new orders.
--- NOTE | 2021-07-18 16:38 | RAD ---
AP chest. HISTORY: Chest pain AP view was taken of the chest. There is a right central line which extends to the right atrium. Lissa ent's taken a poor inspiration. There is no pleural effusion. There are no acute infiltrates. IMPRESSION: 1. Right central line extends to the right atrium. 2. No acute infiltrates. Electronically signed by: Main Cuello MD (07/18/2021 4:36 PM) [id number]
[2021-07-18] MEDS: ONDANSETRON PF 4 MG/2 ML VIAL. IVP PRN (18:14)
[2021-07-18] MEDS: diphenhydrAMINE HCL 25 MG CAPSULE PO SCH (21:00)
[2021-07-18] MEDS ORDERED: LINEZOLID 600 MG TABLET PO SCH (21:00)
[2021-07-18] MEDS ORDERED: TOTAL PARENTERAL NUTRITION IV SCH (22:00)
[2021-07-18] MEDS ORDERED: DEXTROSE 70% IV SCH (22:00)
[2021-07-18] MEDS ORDERED: [UNRECOGNIZED DRUG - OTHER] IV SCH (22:00)
[2021-07-18] MEDS ORDERED: AMINO ACID IV SCH (22:00)
[2021-07-19 03:00] VITALS: BP 105/67
[2021-07-19] MEDS: HYDROmorphone 2 MG/ML INJ. IVP PRN ×7 (03:10→23:42)
[2021-07-19] MEDS: MIDODRINE 5 MG TABLET PEG SCH ×2 (06:32→07:01)
[2021-07-19 07:00] VITALS: BP 110/64
[2021-07-19] MEDS: HYOSCYAMINE ER 0.375 MG TAB.ER.12H PO SCH ×2 (07:01→20:27)
[2021-07-19] MEDS: diphenhydrAMINE 50 MG/ML VIAL IVP PRN ×3 (08:18→22:34)
--- NOTE | 2021-07-19 10:51 | PDOC ---
[employer] PROGRESS NOTE Date of Service DOS: DATE: 07/19/21 TIME: 10:42 Chief Complaint Chief Complaint Acute on chronic abdominal pain Leaking J-tube and PEG tube sites Complex GI history Multiple GI procedures Psychiatric issues (suspect element of possible Munchhausen's?) Severe gastroparesis G-tube J-tube Recent second J-tube has been removed Pyloroplasty Home TPN Recent sepsis with intubation and respiratory failure Multiple EGDs H pylori GERD Hypertension UTI Sepsis from gram-negative bacteremia - History of gastroparesis. G tube , Two J tubes.Mild Irritation. TPN through central line. Hypertension. History of migraines and seizures. History of anxiety and depression. History of urinary retention, status post Carrillo intermittently, urinary tract infection. 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 Transaminitis, chronic, on TPN. H/o COVID positive May 25 and June 14 admission History of Present Illness History of Present Illness 07/19: Had some chest pain history that resolved. Normal troponin EKG chest radiograph. She is anxious about catheter removal and is asking for to be maintained. Switch to Zyvox and Rocephin. Pain is better controlled today. 07/18: Seen bedside is very anxious asking for IV Ativan repeatedly. Appears fairly somnolent. 07/17/2019 Patient seen and examined She seems somewhat sedated Discussed with RN Patient has a low-grade temperature 100 degrees Chart reviewed I went ahead and started IV Levaquin 07/16/2021 Patient seen and examined Discussed with RN Chart reviewed Vitals/I&O Vitals/I&O: Vital Signs Date Time Temp Pulse Resp B/P (MAP) Pulse Ox O2 Delivery O2 Flow Rate FiO2 07/19/21 07:49 Room Air 07/19/21 07:00 98.5 95 14 110/64 (79) 95 98.5 Physical Exam Physical Exam: GENERAL: Alert, oriented x 3 female lying in bed, in mild distress. HEENT: Normocephalic, atraumatic. Anicteric sclerae. No thrush. Oral mucosa moist. NECK: Supple. LUNGS: Clear. Powered PICC right chest wall clean HEART: S1, S2, tachycardia. No murmurs. ABDOMEN: Nondistended, G-tube and J-tubes present. Mild irritation around both the tubes. no Carrillo in place EXTREMITIES: No edema. DERMATOLOGIC: Warm, dry, no generalized rash. NEUROLOGIC: Alert, oriented x 3, grossly nonfocal, anxious. PSYCHIATRIC: Anxious, otherwise cooperative. General: Alert, moderate distress Heart: Regular rate Lungs: Clear Abdomen: Soft, Other (drainage around J-tube) Extremities: No cyanosis, No edema Skin: No breakdown, No significant lesion Labs Labs: Laboratory Tests Test 07/18/21 16:20 Troponin I High Sensitivity 5 ng/L (4-50) Assessment and Plan Assessmemt and Plan Problems Medical Problems: (1) Intractable abdominal pain Status: Acute Comment Review of Relevant I have reviewed the following items lalo (where applicable) has been applied. Medications: Current Medications Medications (Trade) Dose Ordered Sig/Kel Route PRN Reason Start Time Stop Time Status Last Admin Dose Admin Sodium Chloride 75 meq/Potassium Chloride 50 meq/ Magnesium Sulfate 28 meq/ Multivitamins 10 ml/Zinc/Copper/ Manganese/ Selenium 1 ml/ Total Parenteral Nutrition/Amino Acids/Dextrose/ Fat Emulsion Intravenous 1,650 ml @ 126.923 mls/hr TPN CONT IV 07/18/21 22:00 07/19/21 10:59 07/18/21 22:51 Ceftriaxone Sodium (Rocephin) 2 gm Q24H IVP 07/18/21 16:00 07/18/21 16:14 Linezolid/Dextrose 300 ml @ 300 mls/hr Q12HR IV 07/18/21 17:00 07/19/21 08:18 Justifications for Admission Other Justification Fever ABIGAIL GARCIA MD Jul 19, 2021 10:51
[2021-07-19 11:00] VITALS: BP 102/58
[2021-07-19 11:21] LABS: CALCIUM 8.1 mg/dL (8.5-10.1); CREATININE 0.5 mg/dL (0.6-1.0); GFR 152.9; MAGNESIUM 2.5 mg/dL (1.8-2.4); PHOSPHORUS 1.6 mg/dL (2.6-4.7); POTASSIUM 4.7 mmol/L (3.5-5.1)
[2021-07-19] MEDS: TPN PER PHARMACY MC PRN (11:34)
--- NOTE | 2021-07-19 11:39 | NUR ---
Pharmacy TPN Dosing Note S: SUNITHA SCHULTZ is a 21 year old F Currently receiving Central Cyclic TPN started 07/16/21 B:Pertinent PMH: NPO/PEG TUBE Height: 5 feet, 7 inches Weight: 88 kg Current diet: NPO LABS: Sodium: 132 Potassium: 4.7 Chloride: 103 Calcium: 8.1 Corrected Calcium: 8.90 Magnesium: 2.5 CO2: 21 SCr: 0.5 Glucose: 116 Albumin: 3.0 AST: 16 ALT: 24 TPN FORMULA: TPN TYPE: Central Cyclic AMINO ACIDS: 82 gm DEXTROSE: 165 gm LIPIDS: 50 GM / MWF gm SODIUM CHLORIDE: 75 mEq SODIUM PHOSPHATE: 10 mmol POTASSIUM CHLORIDE: 50 mEq MAGNESIUM: 20 mEq MULTIPLE VITAMIN: 10 ml TRACE ELEMENTS: 1 ml(s) TPN PLAN: Sodium phos 15mmol x1 IVPB today and will add 10 mmol to TPN Magnesium reduced slightly per labs. Repeat labs ordered for am. R: Change TPN per plan and ordered formula Will monitor electrolytes, glucose, and tolerance to TPN. Renu Melgar [facility], 07/19/21 [id number]
[2021-07-19] MEDS ORDERED: SODIUM PHOSPHATE 15 MMOL in IV NS 100 ML IV ONE (12:00)
--- NOTE | 2021-07-19 13:43 | PDOC ---
Infectious Disease Note Subjective: Subjective Patient feels better Continues to have abdominal pain which is chronic cont to throw up not taking any po intake Vital Signs: Vital Signs Vital Signs Date Time Temp Pulse Resp B/P (MAP) Pulse Ox O2 Delivery O2 Flow Rate FiO2 07/19/21 11:00 97 14 102/58 (73) 97 Room Air 07/19/21 07:00 98.5 98.5 Physical Exam: PHYSICAL EXAM GENERAL: Alert, oriented x 3 female lying in bed, in mild distress. HEENT: Normocephalic, atraumatic. Anicteric sclerae. No thrush. Oral mucosa moist. NECK: Supple. LUNGS: Clear. Powered PICC right chest wall clean HEART: S1, S2, tachycardia. No murmurs. ABDOMEN: Nondistended, G-tube and J-tubes present. Mild irritation around both the tubes. no Carrillo in place EXTREMITIES: No edema. DERMATOLOGIC: Warm, dry, no generalized rash. NEUROLOGIC: Alert, oriented x 3, grossly nonfocal, anxious. PSYCHIATRIC: Anxious, otherwise cooperative. Medications: Inpatient Meds: Medications reviewed. Labs: Lab Laboratory Tests Test 07/18/21 16:20 07/19/21 10:30 Troponin I High Sensitivity 5 ng/L (4-50) Sodium Level 132 mmol/L (136-145) Potassium Level 4.7 mmol/L (3.5-5.1) Chloride Level 103 mmol/L (98-107) Carbon Dioxide Level 21 mmol/L (21-32) Anion Gap 8 (6-14) Blood Urea Nitrogen 15 mg/dL (7-20) Creatinine 0.5 mg/dL (0.6-1.0) Estimated GFR (Cockcroft-Gault) 152.9 Glucose Level 116 mg/dL (70-99) Calcium Level 8.1 mg/dL (8.5-10.1) Phosphorus Level 1.6 mg/dL (2.6-4.7) Magnesium Level 2.5 mg/dL (1.8-2.4) Triglycerides Level 45 mg/dL (0-150) Objective: Assessment: 1. Sepsis from gram-negative bacteremia. 2. Klebsiella pneumonia bacteremia present,1 out of 4 bottles present on admission. Repeat blood cultures negative 3. Enterococcus faecium amp resistant UTI. History of self-catheterization intermittently 4. Acute on chronic abdominal pain History of gastroparesis. G tube , Two J tubes.Mild Irritation. TPN through central line. 5. Hypertension. 6. History of migraines and seizures. 7. History of anxiety and depression. 8. History of urinary retention, status post Carrillo intermittently, urinary tract infection. 9. 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 10. Transaminitis, chronic, on TPN. 11. Chronic abdominal pain. 12. History of multiple J-tube exchanges. 13. HISTORY OF ALLERGIES TO SULFA AND PENICILLIN WITH NAUSEA AND VOMITING AND RASH, has tolerated Rocephin and meropenem. 14. COVID positive May 25 and June 14 admission 15. Status post Port-A-Cath removal May 2021 16. Power PICC placed June 13 last week Plan: Plan of Care Continue ceftriaxone and linezolid Remove powered PICC.due to recurrent kleb pneumonia Pt wants to salvage it Pros and cons were discussed Follow-up repeat blood cultures from July 17, 2021 which are negative so far Pain management per primary Maintain aspiration precaution General Surgery has evaluated the patient. Continue local care of two J-tubes and G-tube. Continue supportive care. GAYLE RODRIGUEZ MD Jul 19, 2021 13:43
--- NOTE | 2021-07-19 14:24 | PDOC ---
SURGICAL PROGRESS NOTE DATE: 07/19/21 TIME: 14:23 Subjective Pt with c/o pain at tube sites Vital Signs Vital Signs Date Time Temp Pulse Resp B/P (MAP) Pulse Ox O2 Delivery O2 Flow Rate FiO2 07/19/21 11:00 97 14 102/58 (73) 97 Room Air 07/19/21 07:00 98.5 98.5 General: Alert, Oriented X3, Cooperative, moderate distress Abdomen: Soft, Other (tubes sites clean, diffuse TTP, but appears more comfortable.) Labs Laboratory Tests Test 07/18/21 16:20 07/19/21 10:30 Troponin I High Sensitivity 5 ng/L (4-50) Sodium Level 132 mmol/L (136-145) Potassium Level 4.7 mmol/L (3.5-5.1) Chloride Level 103 mmol/L (98-107) Carbon Dioxide Level 21 mmol/L (21-32) Anion Gap 8 (6-14) Blood Urea Nitrogen 15 mg/dL (7-20) Creatinine 0.5 mg/dL (0.6-1.0) Estimated GFR (Cockcroft-Gault) 152.9 Glucose Level 116 mg/dL (70-99) Calcium Level 8.1 mg/dL (8.5-10.1) Phosphorus Level 1.6 mg/dL (2.6-4.7) Magnesium Level 2.5 mg/dL (1.8-2.4) Triglycerides Level 45 mg/dL (0-150) Laboratory Tests Test 07/18/21 16:20 07/19/21 10:30 Troponin I High Sensitivity 5 ng/L (4-50) Sodium Level 132 mmol/L (136-145) Potassium Level 4.7 mmol/L (3.5-5.1) Chloride Level 103 mmol/L (98-107) Carbon Dioxide Level 21 mmol/L (21-32) Anion Gap 8 (6-14) Blood Urea Nitrogen 15 mg/dL (7-20) Creatinine 0.5 mg/dL (0.6-1.0) Estimated GFR (Cockcroft-Gault) 152.9 Glucose Level 116 mg/dL (70-99) Calcium Level 8.1 mg/dL (8.5-10.1) Phosphorus Level 1.6 mg/dL (2.6-4.7) Magnesium Level 2.5 mg/dL (1.8-2.4) Triglycerides Level 45 mg/dL (0-150) Problem List Problems Medical Problems: (1) Intractable abdominal pain Status: Acute Assessment/Plan pt unsure on what steps she would like to pursue next, specifically in considering removal of tubes and going straight IV would d/c planning at this time. Justicifation of Admission Dx: Justifications for Admission: Justification of Admission Dx: Yes Sepsis: Bacteremia TORIE MILLER MD Jul 19, 2021 14:24
[2021-07-19 15:00] VITALS: BP 111/69
[2021-07-19] MEDS: ONDANSETRON PF 4 MG/2 ML VIAL. IVP PRN (15:10)
[2021-07-19] MEDS: cefTRIAXone IV Push 2 GM VIAL. IVP SCH (16:34)
--- NOTE | 2021-07-19 18:59 | EKG ---
[facility] [address] [place] [address] Test Date: 2021-07-18 Test Time: 16:32:19 Pat Name: SUNITHA SCHULTZ Department: Room: 442 1 Gender: F Nuclear Monitoring Technician: : 2000 Requested By: ABIGAIL GARCIA Order Number: [id number] Reading MD: Yared Watson MD Measurements Intervals [place] Rate: 96 P: 42 MI: 160 QRS: 33 QRSD: 80 T: 40 QT: 328 QTc: 421 Interpretive Statements SINUS RHYTHM Electronically Signed On 07-20-2021 15:56:56 [employer]LE [employer] OPERATOR by Yared Watson MD
[2021-07-19 19:00] VITALS: BP 109/72
[2021-07-19] MEDS: diphenhydrAMINE HCL 25 MG CAPSULE PO SCH ×2 (20:27→22:39)
[2021-07-19] MEDS ORDERED: [UNRECOGNIZED DRUG - OTHER] IV SCH (22:00)
[2021-07-19] MEDS ORDERED: AMINO ACID IV SCH (22:00)
[2021-07-19] MEDS ORDERED: DEXTROSE 70% IV SCH (22:00)
[2021-07-19] MEDS ORDERED: TOTAL PARENTERAL NUTRITION IV SCH (22:00)
[2021-07-19 23:00] VITALS: BP 103/60
[2021-07-20] MEDS: HYDROmorphone 2 MG/ML INJ. IVP PRN ×4 (02:35→14:41)
[2021-07-20 03:00] VITALS: BP 116/67
[2021-07-20] MEDS: diphenhydrAMINE 50 MG/ML VIAL IVP PRN ×2 (06:07→09:39)
[2021-07-20 07:00] VITALS: BP 112/66
[2021-07-20] MEDS: MIDODRINE 5 MG TABLET PEG SCH (07:00)
[2021-07-20] MEDS: HYOSCYAMINE ER 0.375 MG TAB.ER.12H PO SCH (08:27)
[2021-07-20 08:51] LABS: CALCIUM 7.6 mg/dL (8.5-10.1); CREATININE 0.5 mg/dL (0.6-1.0); GFR 152.9; MAGNESIUM 2.2 mg/dL (1.8-2.4); PHOSPHORUS 2.5 mg/dL (2.6-4.7); POTASSIUM 4.2 mmol/L (3.5-5.1)
--- NOTE | 2021-07-20 08:52 | PDOC ---
SURGICAL PROGRESS NOTE DATE: 07/20/21 TIME: 08:51 Subjective sleeping this morning did not awaken her dc planning Vital Signs Vital Signs Date Time Temp Pulse Resp B/P (MAP) Pulse Ox O2 Delivery O2 Flow Rate FiO2 07/20/21 08:00 Room Air 07/20/21 07:00 97.6 91 14 112/66 (81) 97 97.6 Labs Laboratory Tests Test 07/18/21 16:20 07/19/21 10:30 07/19/21 22:50 Troponin I High Sensitivity 5 ng/L (4-50) Sodium Level 132 mmol/L (136-145) Potassium Level 4.7 mmol/L (3.5-5.1) Chloride Level 103 mmol/L (98-107) Carbon Dioxide Level 21 mmol/L (21-32) Anion Gap 8 (6-14) Blood Urea Nitrogen 15 mg/dL (7-20) Creatinine 0.5 mg/dL (0.6-1.0) Estimated GFR (Cockcroft-Gault) 152.9 Glucose Level 116 mg/dL (70-99) Calcium Level 8.1 mg/dL (8.5-10.1) Phosphorus Level 1.6 mg/dL (2.6-4.7) Magnesium Level 2.5 mg/dL (1.8-2.4) Triglycerides Level 45 mg/dL (0-150) SARS-CoV-2 Antigen (Rapid) Negative (NEGATIVE) Laboratory Tests Test 07/19/21 10:30 07/19/21 22:50 Sodium Level 132 mmol/L (136-145) Potassium Level 4.7 mmol/L (3.5-5.1) Chloride Level 103 mmol/L (98-107) Carbon Dioxide Level 21 mmol/L (21-32) Anion Gap 8 (6-14) Blood Urea Nitrogen 15 mg/dL (7-20) Creatinine 0.5 mg/dL (0.6-1.0) Estimated GFR (Cockcroft-Gault) 152.9 Glucose Level 116 mg/dL (70-99) Calcium Level 8.1 mg/dL (8.5-10.1) Phosphorus Level 1.6 mg/dL (2.6-4.7) Magnesium Level 2.5 mg/dL (1.8-2.4) Triglycerides Level 45 mg/dL (0-150) SARS-CoV-2 Antigen (Rapid) Negative (NEGATIVE) Problem List Problems Medical Problems: (1) Intractable abdominal pain Status: Acute Justicifation of Admission Dx: Justifications for Admission: Justification of Admission Dx: Yes Sepsis: Bacteremia HANNAH VALLE APRN Jul 20, 2021 08:52
--- NOTE | 2021-07-20 10:46 | NUR ---
report given harish
[2021-07-20] MEDS: TPN PER PHARMACY MC PRN (10:54)
--- NOTE | 2021-07-20 10:55 | NUR ---
Pharmacy TPN Dosing Note S: SUNITHA SCHULTZ is a 21 year old F Currently receiving Central Cyclic TPN started 07/16/21 B:Pertinent PMH: NPO/PEG TUBE Height: 5 feet, 7 inches Weight: 88 kg Current diet: NPO LABS: Sodium: 136 Potassium: 4.2 Chloride: 103 Calcium: 7.6 Corrected Calcium: 8.40 Magnesium: 2.2 CO2: 27 SCr: 0.5 Glucose: 114 Albumin: 3.0 AST: 16 ALT: 24 TPN FORMULA: TPN TYPE: Central Cyclic AMINO ACIDS: 82 gm DEXTROSE: 165 gm LIPIDS: 50 gm SODIUM CHLORIDE: 75 mEq SODIUM PHOSPHATE: 20 mmol POTASSIUM CHLORIDE: 50 mEq MAGNESIUM: 20 mEq MULTIPLE VITAMIN: 10 ml TRACE ELEMENTS: 1 ml TPN PLAN: -Serum phos still low, give NaPhos 15 mmol x 1 dose. Increase NaPhos to 20 mmol/day in TPN. -Add 50 gm lipids today (MWF schedule with lipid shortage). -Other electrolytes appear WNL and stable; monitor calcium. -BMP, mag, phos, ionized calcium tomorrow. R: Continue cyclic TPN at above formula. Will monitor electrolytes, glucose, and tolerance to TPN. LEXII MARTINEZ, [facility], 07/20/21 [id number]
[2021-07-20 11:00] VITALS: BP 108/66
[2021-07-20] MEDS ORDERED: SODIUM PHOSPHATE 15 MMOL in IV NS 100 ML IV ONE (12:00)
--- NOTE | 2021-07-20 12:01 | NUR ---
SW following. Discussed with RN, pt from home with family, room air, NPO -TPN. Pt will discharge home with [facility] and [facility] when medically stable. Unsure of plan at this time. SW will continue to follow.
--- NOTE | 2021-07-20 13:02 | PDOC ---
Infectious Disease Note Subjective Subjective Patient feels better Continues to have abdominal pain which is chronic cont to throw up not taking any po intake ROS ROS no fever, chills, n/v or headache pt wants to save power picc Vital Sign Vital Signs Vital Signs Date Time Temp Pulse Resp B/P (MAP) Pulse Ox O2 Delivery O2 Flow Rate FiO2 07/20/21 11:00 98.2 98 14 108/66 (80) 96 Room Air 98.2 Physical Exam PHYSICAL EXAM GENERAL: Alert, oriented x 3 female lying in bed, in mild distress. HEENT: Normocephalic, atraumatic. Anicteric sclerae. No thrush. Oral mucosa moist. NECK: Supple. LUNGS: Clear. Powered PICC right chest wall clean HEART: S1, S2, tachycardia. No murmurs. ABDOMEN: Nondistended, G-tube and J-tubes present. Mild irritation around both the tubes. no Carrillo in place EXTREMITIES: No edema. DERMATOLOGIC: Warm, dry, no generalized rash. NEUROLOGIC: Alert, oriented x 3, grossly nonfocal, anxious. PSYCHIATRIC: Anxious, otherwise cooperative. Labs Lab Laboratory Tests Test 07/19/21 22:50 07/20/21 07:50 SARS-CoV-2 Antigen (Rapid) Negative (NEGATIVE) Sodium Level 136 mmol/L (136-145) Potassium Level 4.2 mmol/L (3.5-5.1) Chloride Level 103 mmol/L (98-107) Carbon Dioxide Level 27 mmol/L (21-32) Anion Gap 6 (6-14) Blood Urea Nitrogen 13 mg/dL (7-20) Creatinine 0.5 mg/dL (0.6-1.0) Estimated GFR (Cockcroft-Gault) 152.9 Glucose Level 114 mg/dL (70-99) Calcium Level 7.6 mg/dL (8.5-10.1) Phosphorus Level 2.5 mg/dL (2.6-4.7) Magnesium Level 2.2 mg/dL (1.8-2.4) Micro Microbiology 07/17/21 Blood Culture - Preliminary, Resulted NO GROWTH AFTER 2 DAYS 07/15/21 Urine Culture - Final, Complete Enterococcus Faecium Objective Assessment 1. Sepsis from gram-negative bacteremia. 2. Klebsiella pneumonia bacteremia present,1 out of 4 bottles present on admission. Repeat blood cultures negative 3. Enterococcus faecium amp resistant UTI. History of self-catheterization intermittently 4. Acute on chronic abdominal pain History of gastroparesis. G tube , Two J tubes.Mild Irritation. TPN through central line. 5. Hypertension. 6. History of migraines and seizures. 7. History of anxiety and depression. 8. History of urinary retention, status post Carrillo intermittently, urinary tract infection. 9. 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 10. Transaminitis, chronic, on TPN. 11. Chronic abdominal pain. 12. History of multiple J-tube exchanges. 13. HISTORY OF ALLERGIES TO SULFA AND PENICILLIN WITH NAUSEA AND VOMITING AND RASH, has tolerated Rocephin and meropenem. 14. COVID positive May 25 and June 14 admission 15. Status post Port-A-Cath removal May 2021 16. Power PICC placed June 13 last week Plan Plan of Care Continue ceftriaxone and linezolid Remove powered PICC.due to recurrent kleb pneumonia Pt wants to salvage it Pros and cons were discussed Follow-up repeat blood cultures from July 17, 2021 which are negative so far Pain management per primary Maintain aspiration precaution General Surgery has evaluated the patient. Continue local care of two J-tubes and G-tube. Continue supportive care. pt understands infection may not get better and will be back and may make her septic, clearly d/w pt she wants to try to save. d/c on iv rocephine and zyvox ISAAC RODRIGUEZ MD Jul 20, 2021 13:02
[2021-07-20] MEDS ORDERED: CEFTRIAXONE SODIUM IVP (13:31)
[2021-07-20] MEDS ORDERED: LINE600I2 IV (13:31)
--- NOTE | 2021-07-20 13:35 | SNU/HH DC ---
DISCHARGE WITH HOME HEALTH DISCHARGE INFORMATION: Discharge Date: Jul 20, 2021 Final Diagnosis: Problems Medical Problems: (1) Intractable abdominal pain Status: Acute Condition on Discharge: Stable CODE STATUS: Code Status: Full HOME HEALTH: Face to Face: I certify this patient is under my care and that I, or a nurse practitioner or physician's payroll human resources assistant working with me, had a face to face encounter that meets the physician face to face encounter requirements with this patient on 07/20/2021. Medical Complications: Other (Asthma, dysphagia) [facility] For: IV Infusion Therapy, Medication Management, Pain Management RN For Eval/Treatment: Yes Physical Therapy For: Evalulation/Treatment Occupational Therapy For: Evaluation/Treatment Home Health Aide For: Self-care Pt Meets Homebound Status: Extreme weakness w/ amb. 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 Tuesday labs CBC/BUN/creatinine/CPK/ESR/CRP. Fax results to [phone] Follow up in 2 weeks: [facility] [address], [address] [place] [address] P: F: TPN FORMULA: TPN TYPE: Central Cyclic AMINO ACIDS: 82 gm DEXTROSE: 205 gm LIPIDS: 50 GM MWF gm SODIUM CHLORIDE: 75 mEq SODIUM ACETATE: mEq SODIUM PHOSPHATE: mmol POTASSIUM CHLORIDE: 50 mEq POTASSIUM ACETATE: mEq POTASSIUM PHOSPHATE: mmol MAGNESIUM: 36 mEq CALCIUM: 5 mEq INSULIN: units MULTIPLE VITAMIN: 10 ml TRACE ELEMENTS: 1 ml(s) TPN PLAN: CONT TPN FORMULA FROM HOME. LIPID MWF. R: Continue TPN TRO 12HRS WITH 1HR UP AND 1HR DOWN. Labs weekly CMP, Triglycerides to Dr. Santana [address] [place] [address] TREATMENT/EQUIPMENT ORDERS: Adaptive Equipment Issued: None CERTIFICATION STATEMENT: Certification Statement: Certification Statement: Based on the above finding, I certify that this patient is confined to the home and needs intermittent assisted care, physical therapy and/or speech therapy, or continues to need occupational therapy.~ This patient is under my care, and I have initiated the establishment of the plan of care.~ This patient will be followed by myself or a community physician who will periodically review the plan of care. Home Meds Active Scripts Linezolid (Linezolid-D5w) 600 Mg/300 Ml Piggyback, 600 MG IV BID for Enterococcus UTI for 5 Days, #10 EACH Prov:ABIGAIL GARCIA MD 07/20/21 [cefTRIAXone IV Push] 2 GM VIAL No Conflict Check, 2 GM IVP Q24H for Klebsiella bacteremia for 10 Days, #10 EACH Prov:ABIGAIL GARCIA MD 07/20/21 Hydrocodone Bit/Acetaminophen (HYDROCODONE-APAP 7.5-325/15 SOLN ) 15 Ml Solution, 15 ML PO PRN Q6HRS PRN for PAIN, #225 ML 0 Refills Prov:KRISTEN ESPAÑA MD 03/05/21 Scopolamine (TRANSDERM-SCOP) 1 Each Patch.td72, 1 PATCH TP Q3DAYS, #4 PATCH Prov:LEXII CARRANZA DO 02/24/21 [Tpn Per Pharmacy] 1 EACH EACH No Conflict Check, 1 EACH MC PRN DAILY PRN for SEE COMMENTS for 30 Days, #60 Prov:JEFFERSON XAVIER MD 01/25/21 Ondansetron Hcl/Pf (ONDANSETRON HCL 4 MG/2 ML VIAL) 4 Mg/2 Ml Vial, 4 MG IVP PRN Q6HRS PRN for NAUSEA/VOMITING 1ST CHOICE for 30 Days, #90 EACH Prov:JEFFERSON XAVIER MD 11/30/19 Bisacodyl (BISACODYL) 10 Mg Supp.rect, 10 MG VA PRN DAILY PRN for CONSTIPATION, 1sT CHOICE for 30 Days, #30 SUPP.RECT Prov:JEFFERSON XAVIER MD 11/30/19 Reported Medications Diphenhydramine Hcl (BENADRYL) 25 Mg Capsule, 2 CAP PO QHS for N for 30 Days, #60 CAP 0 Refills 07/14/21 Umeclidinium [place] (Incruse Ellipta) 62.5 Mcg Blst.w.dev, 62.5 MCG IH DAILY for ASTHMA 07/14/21 Fluticasone/Salmeterol (ADVAIR 250-50 DISKUS) 1 Each Disk.w.dev, 1 PUFF IH BID for ASTHMA, #3 INHALER 3 Refills 07/14/21 Valproate Sodium (VALPROIC ACID) 500 Mg/10 Ml Solution, 500 MG JT BID for TREMORS/SHAKING, MISC 11/14/20 Metoprolol Tartrate (Metoprolol Tartrate) 75 Mg Tablet, 25 MG PO BID for HEADACHES, TAB 11/14/20 Hyoscyamine Sulfate (LEVBID) 0.375 Mg Tab.er.12h, 0.375 MG JT BID for REFLUX, TAB.SR 11/14/20 Fremanezumab-Vfrm (Ajovy Autoinjector) 225 Mg/1.5 Ml Auto.injct, 225 MG SQ QMONTH for migraine, SYR 05/23/20 Tizanidine Hcl (TIZANIDINE HCL) 2 Mg Capsule, 2 MG JT Q8HRS PRN for MUSCLE SPASMS, CAP 05/23/20 Gabapentin (GABAPENTIN) 600 Mg Tablet, 300 MG JT TID for NEUROGENIC PAIN, TAB 05/21/20 Midodrine Hcl (MIDODRINE HCL) 5 Mg Tablet, 5 MG SL BID for Ortho Hypo, TAB 05/21/20 Olopatadine HCl (Olopatadine HCl) 5 Ml Drops, 0.1 % OP PRN DAILY PRN for eye relief, DROP 08/20/19 Albuterol Sulfate (Proair Hfa) 8.5 Gm Hfa.aer.ad, 2 PUFF IH PRN Q4-6HRS PRN for wheezing for 21 Days, #1 INHALER 0 Refills 08/20/19 Ipratropium Amagon (IPRATROPIUM BROMIDE) 30 Ml [place], 1 SPRAY NS BID for allergies, SPRAY 08/20/19 Ipratropium/Albuterol Sulfate (DUONEB 0.5-3(2.5) MG/3 ML) 3 Ml Ampul.neb, 3 ML NEB PRN QID PRN for asthma, EACH 08/20/19 Montelukast Sodium (MONTELUKAST SODIUM TABLET ) 10 Mg Tablet, 10 MG PO DAILY PRN for asthma, TAB 0 Refills 08/20/19 Discontinued Reported Medications Diphenhydramine Hcl (BENADRYL) 25 Mg Capsule, 25 MG IVP QIDPRN PRN for ALLERGIES, CAP 07/14/21 Famotidine (FAMOTIDINE) 40 Mg Tablet, 40 MG IV DAILY for REFLUX, TAB 11/14/20 Discontinued Scripts Azithromycin (AZITHROMYCIN ORAL SUSP) 200 Mg/5 Ml Susp.recon, 2.25 ML PO DAILY, #25 ML 500ml PO x day 1 250ml PO x day 2-5 Disp QS No refills Prov:MELISSA CASIANO DO 06/14/21 Terbinafine Hcl (TERBINAFINE HCL) 30 Gm Cream..g., 1 JUSTYN TP BID, #1 BOX Apply cream twice daily to affected areas for 2 weeks. Prov:COLTON SILVERIO 06/13/21 ABIGAIL GARCIA MD Jul 20, 2021 13:34
--- NOTE | 2021-07-20 13:41 | PDOC ---
[employer] PROGRESS NOTE Date of Service DOS: DATE: 07/20/21 TIME: 13:38 Chief Complaint Chief Complaint Acute on chronic abdominal pain Leaking J-tube and PEG tube sites Complex GI history Multiple GI procedures Psychiatric issues (suspect element of possible Munchhausen's?) Severe gastroparesis G-tube J-tube Recent second J-tube has been removed Pyloroplasty Home TPN Recent sepsis with intubation and respiratory failure Multiple EGDs H pylori GERD Hypertension UTI Sepsis from gram-negative bacteremia - History of gastroparesis. G tube , Two J tubes.Mild Irritation. TPN through central line. Hypertension. History of migraines and seizures. History of anxiety and depression. History of urinary retention, status post Carrillo intermittently, urinary tract infection. 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 Transaminitis, chronic, on TPN. H/o COVID positive May 25 and June 14 admission History of Present Illness History of Present Illness Ms Mustafa is a 21-year-old female well known to our service from recent admission who presented to the ER multiple times this week with complaints of chronic abdominal pain, nausea and fever of 101. She was recently discharged from [facility] last month after diagnosed with Klebsiella pneumonia bacteremia. Repeat blood cultures were negative. Patient underwent G-tube and G-tube exchange on July 14, 2021. Patient returned to [facility] with complaints of acute on chronic abdominal pain. Here at [facility] WBC is normal. Lactate was normal. Blood cultures were done. Gr am-negative chasity have been reported, found to be klebsiella. urine with enterococcus. 07/20: Chronic pain is stable. She notes she was trying to do some drawings but fell asleep. Discussed with ID for line salvage we will do 10 days of IV Rocephin and 5 days of IV Zyvox. 07/19: Had some chest pain history that resolved. Normal troponin EKG chest radiograph. She is anxious about catheter removal and is asking for to be maintained. Switch to Zyvox and Rocephin. Pain is better controlled today. 07/18: Seen bedside is very anxious asking for IV Ativan repeatedly. Appears fairly somnolent. 07/17/2019 Patient seen and examined She seems somewhat sedated Discussed with RN Patient has a low-grade temperature 100 degrees Chart reviewed I went ahead and started IV Levaquin 07/16/2021 Patient seen and examined Discussed with RN Chart reviewed Vitals/I&O Vitals/I&O: Vital Signs Date Time Temp Pulse Resp B/P (MAP) Pulse Ox O2 Delivery O2 Flow Rate FiO2 07/20/21 11:00 98.2 98 14 108/66 (80) 96 Room Air 98.2 Physical Exam Physical Exam: GENERAL: Alert, oriented x 3 female lying in bed, in mild distress. HEENT: Normocephalic, atraumatic. Anicteric sclerae. No thrush. Oral mucosa moist. NECK: Supple. LUNGS: Clear. Powered PICC right chest wall clean HEART: S1, S2, tachycardia. No murmurs. ABDOMEN: Nondistended, G-tube and J-tubes present. Mild irritation around both the tubes. no Carrillo in place EXTREMITIES: No edema. DERMATOLOGIC: Warm, dry, no generalized rash. NEUROLOGIC: Alert, oriented x 3, grossly nonfocal, anxious. PSYCHIATRIC: Anxious, otherwise cooperative. General: Alert, Oriented X3, Cooperative, moderate distress Heart: Regular rate Lungs: Clear Abdomen: Soft, Other (tubes sites clean, diffuse TTP, but appears more comfortable.) Extremities: No cyanosis, No edema Skin: No breakdown, No significant lesion Labs Labs: Laboratory Tests Test 07/19/21 22:50 07/20/21 07:50 SARS-CoV-2 Antigen (Rapid) Negative (NEGATIVE) Sodium Level 136 mmol/L (136-145) Potassium Level 4.2 mmol/L (3.5-5.1) Chloride Level 103 mmol/L (98-107) Carbon Dioxide Level 27 mmol/L (21-32) Anion Gap 6 (6-14) Blood Urea Nitrogen 13 mg/dL (7-20) Creatinine 0.5 mg/dL (0.6-1.0) Estimated GFR (Cockcroft-Gault) 152.9 Glucose Level 114 mg/dL (70-99) Calcium Level 7.6 mg/dL (8.5-10.1) Phosphorus Level 2.5 mg/dL (2.6-4.7) Magnesium Level 2.2 mg/dL (1.8-2.4) Assessment and Plan Assessmemt and Plan Problems Medical Problems: (1) Intractable abdominal pain Status: Acute Comment Review of Relevant I have reviewed the following items lalo (where applicable) has been applied. Medications: Current Medications Medications (Trade) Dose Ordered Sig/Kel Route PRN Reason Start Time Stop Time Status Last Admin Dose Admin Sodium Chloride 75 meq/Sodium Phosphate 10 mmol/ Potassium Chloride 50 meq/ Magnesium Sulfate 20 meq/ Multivitamins 10 ml/Zinc/Copper/ Manganese/ Selenium 1 ml/ Total Parenteral Nutrition/Amino Acids/Dextrose/ Fat Emulsion Intravenous 1,650 ml @ 126.923 mls/hr TPN CONT IV 07/19/21 22:00 07/20/21 10:59 DC 07/19/21 22:33 Sodium Phosphate 15 mmol/Sodium Chloride 105 ml @ 105 mls/hr 1X ONCE IV 07/20/21 12:00 07/20/21 12:59 DC 07/20/21 11:52 Justifications for Admission Other Justification Fever ABIGAIL GARCIA MD Jul 20, 2021 13:41
--- NOTE | 2021-07-20 13:44 | PDOC3 ---
Discharge Summary Visit Information Date of Admission: Jul 15, 2021 Date of Discharge: Jul 20, 2021 Admitting Diagnosis: Intractable abdominal pain, sepsis Final Diagnosis Problems Medical Problems: (1) Intractable abdominal pain Status: Acute Brief Hospital Course Allergies Allergies Coded Allergies Type Severity Reaction Last Updated Verified iron Allergy Severe Anaphylaxis 07/14/21 Yes Penicillins Allergy Intermediate LIGHT RASH CHILD 07/14/21 Yes Sulfa (Sulfonamide Antibiotics) Allergy Intermediate 07/14/21 Yes I S O L A T I O N *CONTACT* Allergy Unknown 07/14/21 Yes Vital Signs Vital Signs Date Time Temp Pulse Resp B/P (MAP) Pulse Ox O2 Delivery O2 Flow Rate FiO2 07/20/21 11:00 98.2 98 14 108/66 (80) 96 Room Air 98.2 Lab Results Laboratory Tests Test 07/18/21 16:20 07/19/21 10:30 07/19/21 22:50 07/20/21 07:50 Troponin I High Sensitivity 5 ng/L (4-50) Sodium Level 132 mmol/L (136-145) 136 mmol/L (136-145) Potassium Level 4.7 mmol/L (3.5-5.1) 4.2 mmol/L (3.5-5.1) Chloride Level 103 mmol/L (98-107) 103 mmol/L (98-107) Carbon Dioxide Level 21 mmol/L (21-32) 27 mmol/L (21-32) Anion Gap 8 (6-14) 6 (6-14) Blood Urea Nitrogen 15 mg/dL (7-20) 13 mg/dL (7-20) Creatinine 0.5 mg/dL (0.6-1.0) 0.5 mg/dL (0.6-1.0) Estimated GFR (Cockcroft-Gault) 152.9 152.9 Glucose Level 116 mg/dL (70-99) 114 mg/dL (70-99) Calcium Level 8.1 mg/dL (8.5-10.1) 7.6 mg/dL (8.5-10.1) Phosphorus Level 1.6 mg/dL (2.6-4.7) 2.5 mg/dL (2.6-4.7) Magnesium Level 2.5 mg/dL (1.8-2.4) 2.2 mg/dL (1.8-2.4) Triglycerides Level 45 mg/dL (0-150) SARS-CoV-2 Antigen (Rapid) Negative (NEGATIVE) Laboratory Tests Test 07/19/21 22:50 07/20/21 07:50 SARS-CoV-2 Antigen (Rapid) Negative (NEGATIVE) Sodium Level 136 mmol/L (136-145) Potassium Level 4.2 mmol/L (3.5-5.1) Chloride Level 103 mmol/L (98-107) Carbon Dioxide Level 27 mmol/L (21-32) Anion Gap 6 (6-14) Blood Urea Nitrogen 13 mg/dL (7-20) Creatinine 0.5 mg/dL (0.6-1.0) Estimated GFR (Cockcroft-Gault) 152.9 Glucose Level 114 mg/dL (70-99) Calcium Level 7.6 mg/dL (8.5-10.1) Phosphorus Level 2.5 mg/dL (2.6-4.7) Magnesium Level 2.2 mg/dL (1.8-2.4) Brief Hospital Course Ms Mustafa is a 21-year-old female well known to our service from recent admission who presented to the ER multiple times this week with complaints of chronic abdominal pain, nausea and fever of 101. She was recently discharged from [facility] last month after diagnosed with Klebsiella pneumonia bacteremia. Repeat blood cultures were negative. Patient underwent G-tube and G-tube exchange on July 14, 2021. Patient returned to [facility] with complaints of acute on chronic abdominal pain. Here at [facility] WBC is normal. Lactate was normal. Blood cultures were done. Gram-negative chasity have been reported, found to be klebsiella. urine with enterococcus. 07/18: Seen bedside is very anxious asking for IV Ativan repeatedly. Appears fairly somnolent. 07/19: Had some chest pain history that resolved. Normal troponin EKG chest radiograph. She is anxious about catheter removal and is asking for to be maintained. Switch to Zyvox and Rocephin. Pain is better controlled today. 07/20: Chronic pain is stable. She notes she was trying to do some drawings but fell asleep. Discussed with ID for line salvage we will do 10 days of IV Rocephin and 5 days of IV Zyvox. Consults: General surgery, ID Problem list: UTI - enterococcus Sepsis from gram-negative bacteremia - klebsiella Acute on chronic abdominal pain Leaking J-tube and PEG tube sites Complex GI history Multiple GI procedures Psychiatric issues (suspect element of possible Munchhausen's?) Severe gastroparesis G-tube J-tube Recent second J-tube has been removed Pyloroplasty Home TPN Recent sepsis with intubation and respiratory failure Multiple EGDs H pylori GERD Hypertension History of gastroparesis. G tube , Two J tubes.Mild Irritation. TPN through central line. Hypertension. History of migraines and seizures. History of anxiety and depression. History of urinary retention, status post Carrillo intermittently, urinary tract infection. 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 Transaminitis, chronic, on TPN. H/o COVID positive May 25 and June 14 admission Greater than 30 minutes spent on d/c home with home health and infusions Discharge Information Condition at Discharge: Improved Follow Up: Weeks Disposition/Orders: D/C to Home w/ HH Scheduled Diphenhydramine Hcl (Benadryl) 25 Mg Capsule, 2 CAP PO QHS for N for 30 Days, #60 Ref 0 (Reported) Entered as Reported by: AZIZA SANCHEZ on 07/14/21 1019 Last Action: Continued on 07/15/212035 by KRISTEN ESPAÑA Fluticasone/Salmeterol (Advair 250-50 Diskus) 1 Each Disk.w.dev, 1 PUFF IH BID for ASTHMA, #3 Ref 3 (Reported) Entered as Reported by: AZIZA SANCHEZ on 07/14/21 1016 Fremanezumab-Vfrm (Ajovy Autoinjector) 225 Mg/1.5 Ml Auto.injct, 225 MG SQ QMONTH for migraine, (Reported) Entered as Reported by: RAMSES BANDA on 05/23/20 2248 Gabapentin (Gabapentin) 600 Mg Tablet, 300 MG JT TID for NEUROGENIC PAIN, (Reported) Entered as Reported by: YAMILETH TALAMANTES on 05/21/20 1232 Hyoscyamine Sulfate (Levbid) 0.375 Mg Tab.er.12h, 0.375 MG JT BID for REFLUX, (Reported) Entered as Reported by: BUSTER MCCOLLUM on 11/14/20 0930 Last Action: Continued on 07/15/212035 by KRISTEN ESPAÑA Ipratropium [place] (Ipratropium [place]) 30 Ml [place], 1 SPRAY NS BID for allergies, (Reported) Entered as Reported by: BUSTER MCCOLLUM on 08/20/19 1219 Linezolid (Linezolid-D5w) 600 Mg/300 Ml Piggyback, 600 MG IV BID for Enterococcus UTI for 5 Days, #10 Prescribed by: ABIGAIL GARCIA MD on 07/20/21 1331 Metoprolol Tartrate (Metoprolol Tartrate) 75 Mg Tablet, 25 MG PO BID for HEADACHES, (Reported) Entered as Reported by: BUSTER MCCOLLUM on 11/14/20 0930 Midodrine Hcl (Midodrine Hcl) 5 Mg Tablet, 5 MG SL BID for Ortho Hypo, (Reported) Entered as Reported by: YAMILETH TALAMANTES on 05/21/20 1232 Last Action: Continued on 07/15/212035 by KRISTEN ESPAÑA Scopolamine (Transderm-Scop) 1 Each Patch.td72, 1 PATCH TP Q3DAYS, #4 Prescribed by: LEXII CARRANZA DO on 02/24/21 1859 Last Action: Continued on 07/15/212035 by KRISTEN ESPAÑA Umeclidinium [place] (Incruse Ellipta) 62.5 Mcg Blst.w.dev, 62.5 MCG IH DAILY for ASTHMA, (Reported) Entered as Reported by: AZIZA SANCHEZ on 07/14/21 1016 Valproate Sodium (Valproic Acid) 500 Mg/10 Ml Solution, 500 MG JT BID for TREMORS/SHAKING, (Reported) Entered as Reported by: BUSTER MCCOLLUM on 11/14/20 0939 [Ceftriaxone Sodium] 2 GM VIAL, 2 GM IVP Q24H for Klebsiella bacteremia for 10 Days, #10 Prescribed by: ABIGAIL GARCIA MD on 07/20/21 1331 Scheduled PRN Albuterol Sulfate (Proair Hfa) 8.5 Gm Hfa.aer.ad, 2 PUFF IH PRN Q4-6HRS PRN for wheezing for 21 Days, #1 Ref 0 (Reported) Entered as Reported by: BUSTER MCCOLLUM on 08/20/19 1219 Bisacodyl (Bisacodyl) 10 Mg Supp.rect, 10 MG OR PRN DAILY PRN for CONSTIPATION, 1sT CHOICE for 30 Days, #30 Prescribed by: JEFFERSON XAVIER MD on 11/30/19 1614 Last Action: Continued on 07/15/212035 by KRISTEN ESPAÑA Hydrocodone Bit/Acetaminophen (Hydrocodone-Apap 7.5-325/15 Soln ) 15 Ml Solution, 15 ML PO PRN Q6HRS PRN for PAIN, #225 Ref 0 Prescribed by: KRISTEN ESPAÑA on 03/05/21 1504 Last Action: Continued on 07/15/212035 by KRISTEN ESPAÑA Ipratropium/Albuterol Sulfate (Duoneb 0.5-3(2.5) Mg/3 Ml) 3 Ml Ampul.neb, 3 ML NEB PRN QID PRN for asthma, (Reported) Entered as Reported by: BUSTER MCCOLLUM on 08/20/19 1218 Last Action: Continued on 07/15/212035 by KRISTEN ESPAÑA Montelukast Sodium (Montelukast Sodium Tablet ) 10 Mg Tablet, 10 MG PO DAILY PRN for asthma, Ref 0 (Reported) Entered as Reported by: BUSTER MCCOLLUM on 08/20/19 1218 Last Action: Continued on 07/15/212035 by KRISTEN ESPAÑA Olopatadine HCl (Olopatadine HCl) 5 Ml Drops, 0.1 % OP PRN DAILY PRN for eye relief, (Reported) Entered as Reported by: BUSTER MCCOLLUM on 08/20/19 1219 Ondansetron Hcl/Pf (Ondansetron Hcl 4 Mg/2 Ml Vial) 4 Mg/2 Ml Vial, 4 MG IVP PRN Q6HRS PRN for NAUSEA/VOMITING 1ST CHOICE for 30 Days, #90 Prescribed by: JEFFERSON XAVIER MD on 11/30/19 1614 Last Action: Continued on 07/15/212035 by KRISTEN ESPAÑA Tizanidine Hcl (Tizanidine Hcl) 2 Mg Capsule, 2 MG JT Q8HRS PRN for MUSCLE SPASMS, (Reported) Entered as Reported by: RAMSES BANDA on 05/23/20 4198 [Tpn Per Pharmacy] 1 EACH EACH, 1 EACH MC PRN DAILY PRN for SEE COMMENTS for 30 Days, #60 Prescribed by: JEFFERSON XAVIER MD on 01/25/21 1247 Discontinued Medications Azithromycin (Azithromycin Oral Susp) 200 Mg/5 Ml Susp.recon, 2.25 ML PO DAILY, #25 500ml PO x day 1 250ml PO x day 2-5 Disp QS No refills Prescribed by: MELISSA CASIANO D.O. on 06/14/211933 Last Action: HELD on 07/15/212035 by KRISTEN ESPAÑA Diphenhydramine Hcl (Benadryl) 25 Mg Capsule, 25 MG IVP QIDPRN PRN for ALLERGIE S, (Reported) Entered as Reported by: AZIZA SANCHEZ on 07/14/21 1019 Famotidine (Famotidine) 40 Mg Tablet, 40 MG IV DAILY for REFLUX, (Reported) Entered as Reported by: BUSTER MCCOLLUM on 11/14/20 0930 Terbinafine Hcl (Terbinafine Hcl) 30 Gm Cream..g., 1 JUSTYN TP BID, #1 Apply cream twice daily to affected areas for 2 weeks. Prescribed by: SOHEILA ORDAZ on 06/13/21 184 Justicifation of Admission Dx: Justifications for Admission: Justification of Admission Dx: Yes Sepsis: Bacteremia ABIGAIL GARCIA MD Jul 20, 2021 13:43
[2021-07-20] MEDS: ONDANSETRON PF 4 MG/2 ML VIAL. IVP PRN (14:40)
--- NOTE | 2021-07-20 14:59 | NUR ---
Patient being discharged to home with home health, PICC line in place. ROcephin given, patient escorted out with brother in law and belongings to main entrance by wheelchair by Nata OSUNA.
[2021-07-20] MEDS: cefTRIAXone IV Push 2 GM VIAL. IVP SCH (15:01)
--- NOTE | 2021-07-20 15:17 | NUR ---
SS following up with discharge planning. SS reviewed pt chart and discussed with pt RN. Discharge orders on the chart. Discharge orders and clinical phoned and faxed to [facility], ; fax [phone]. Script received for IV antibiotics. Script and clinical phoned and faxed to [facility], ; fax [phone]. [facility] to call floor and discuss with pt RN. Pt RN notified.
--- NOTE | 2021-07-20 15:35 | NUR ---
Spoke with Linda Pharmacist for this patient for home health IV meds, verifying Rocephin q 24h received it, next dose is tomorrow at 1600. Zyvox is due at 2100, and verified Nutrition supplement for patient.
[2021-07-20] MEDS ORDERED: AMINO ACID IV SCH (22:00)
[2021-07-20] MEDS ORDERED: TOTAL PARENTERAL NUTRITION IV SCH (22:00)
[2021-07-20] MEDS ORDERED: [UNRECOGNIZED DRUG - OTHER] IV SCH (22:00)
[2021-07-20] MEDS ORDERED: DEXTROSE 70% IV SCH (22:00)
== END 2021-07-20 15:03 | disposition home health service (06) | DRG 871 ==
LOC: ER 13:58 → 4 NORTH 17:08 → ED HOLD 18:24 → 4 NORTH 22:10
PROVIDERS: ADMIT Internal Medicine; ATTEND Internal Medicine
DX: A41.59 Other Gram-negative sepsis (principal); E43 Unspecified severe protein-calorie malnutrition; N39.0 Urinary tract infection, site not specified; Z16.11 Resistance to penicillins; F41.9 Anxiety disorder, unspecified; G89.29 Other chronic pain; I10 Essential (primary) hypertension; J45.909 Unspecified asthma, uncomplicated; K21.9 Gastro-esophageal reflux disease without esophagitis; F32.A Depression, unspecified; Z20.822 Contact with and (suspected) exposure to COVID-19; G43.909 Migraine, unspecified, not intractable, without status migrainosus; B95.2 Enterococcus as the cause of diseases classified elsewhere; Z86.16 Personal history of COVID-19; Z86.73 Personal history of transient ischemic attack (TIA), and cerebral infarction without residual deficits; Z88.0 Allergy status to penicillin; Z88.2 Allergy status to sulfonamides; Z86.14 Personal history of Methicillin resistant Staphylococcus aureus infection; Z93.1 Gastrostomy status; Z68.30 Body mass index [BMI] 30.0-30.9, adult; K31.84 Gastroparesis
CPT/HCPCS: 36415; 71045; 74018; 74021; 80048; 80053; 81001; 83605; 83735; 84100; 84145; 84478; 84484; 85025; 87040; 87077; 87086; 87186; 87426; 93005; 94640; 96361; 96374; J0610; J0692; J0696; J1170; J1200; J1956; J2020; J2060; J2405; J3475; J3480; J3490; J7030; Q9967; U0003; 99285-25; G0378

== ENCOUNTER 2021-07-21 19:16 | Inpatient (IN) | payer OTHER, MEDICARE, MEDICAID ==
[~2021-07-21] VITALS: Ht 170.2 cm; Wt 85.8 kg
[~2021-07-21 19:16] MED LIST changes: +CEFTRIAXONE SODIUM IVP; +LINE600I2 IV; -OLOP5DRO13 OP; +OLOP5DRO25 OP
[2021-07-21] MEDS ORDERED: ONDANSETRON PF 4 MG/2 ML VIAL. IVP ONE (20:15)
[2021-07-21] MEDS ORDERED: diphenhydrAMINE 50 MG/ML VIAL IVP ONE (20:15)
[2021-07-21] MEDS ORDERED: IV NORMAL SALINE 1000ML BAG 1,000 ML IV ONE (20:15)
[2021-07-21] MEDS ORDERED: HYDROmorphone 2 MG/ML INJ. IVP ONE ×2 (20:15→23:30)
[2021-07-21 20:27] LABS: BASO % 1 % (0-3); EOS # 0.1 x10^3/uL (0.0-0.7); EOS % 1 % (0-3); HEMATOCRIT 31.6 % (36.0-47.0); HEMOGLOBIN 10.1 g/dL (12.0-15.5); LYMPH # 1.9 x10^3/uL (1.0-4.8); LYMPH % 26 % (24-48); MEAN CORPUSCULAR HEMOGLOBIN 27 pg (25-35); MEAN CORPUSCULAR HGB CONC 32 g/dL (31-37); MEAN CORPUSCULAR VOLUME 84 fL (79-100); MONO # 0.6 x10^3/uL (0.0-1.1); MONO % 9 % (0-9); NEUT # 4.7 x10^3/uL (1.8-7.7); NEUT % 64 % (31-73); PLATELET COUNT 201 x10^3/uL (140-400); RED BLOOD COUNT 3.75 x10^6/uL (3.50-5.40); RED CELL DISTRIBUTION WIDTH 23.3 % (11.5-14.5); WHITE BLOOD COUNT 7.3 x10^3/uL (4.0-11.0)
[2021-07-21 20:43] LABS: CALCIUM 8.3 mg/dL (8.5-10.1); CREATININE 0.7 mg/dL (0.6-1.0); GFR 103.7; POTASSIUM 4.3 mmol/L (3.5-5.1)
[2021-07-21 20:50] LABS: ALBUMIN 3.8 g/dL (3.4-5.0); ALBUMIN/GLOBULIN RATIO 1.1 (1.0-1.7); TOTAL BILIRUBIN 0.2 mg/dL (0.2-1.0); TOTAL PROTEIN 7.4 g/dL (6.4-8.2)
[2021-07-21 20:59] LABS: PLT ESTIMATE ADEQUATE (ADEQUATE)
[2021-07-21 21:00] LABS: MICROCYTOSIS MOD; POLYCHROMASIA SLIGHT
--- NOTE | 2021-07-21 22:30 | RAD ---
Single view abdomen dated 07/21/2021. COMPARISON: None. Clinical data indication: Pain. FINDINGS: 2 supine images submitted. Nondilated gas-filled loops of bowel throughout. No abnormal calcification . There is a percutaneous gastric tube in place. There is a second tube percutaneous small bowel tube in the right mid abdomen, similar in position to prior study. Clips in the right upper quadrant comp atible with prior cholecystectomy. IMPRESSION: 1. Nonobstructive bowel gas pattern. Electronically signed by: Hipolito Baca MD (07/21/2021 10:28 PM) TRINY
[2021-07-22] VITALS (7 sets, daily range): BP systolic 94–116; BP diastolic 50–65
--- NOTE | 2021-07-22 00:54 | PHYS DOC ---
Past Medical History Past Medical History: Asthma, DVT, GERD, Hypertension, Migraines, MRSA, Other Additional Past Medical Histor: GASTROPARSIS, INTESTIAL DISMOTILITY, Past Surgical History: Appendectomy, Cholecystectomy, Tonsillectomy Additional Past Surgical Histo: G TUBES, J TUBES, GJ TUBES Smoking Status: Never Smoker Alcohol Use: None Drug Use: None General Adult EDM: Chief Complaint: OTHER COMPLAINTS HPI: HPI: Patient is a 21 year old female with hx of HTN, GERD, extensive abdominal surgeries who presents to the ED today with complaints of 8 out of 10 generalized abdominal pain, symptoms began yesterday after she was discharged from the hospital. Patient states she is on IV antibiotics for pneumonia and UTI, she states her central line is not working. She states she was unable to get any blood return from it. Patient denies anything specifically exacerbating or relieving her abdominal pain. She is also complaining of nausea. Review of Systems: Review of Systems: Constitutional: Denies fever or chills. [] Eyes: Denies change in visual acuity. [] HENT: Denies nasal congestion or sore throat. [] Respiratory: Denies cough or shortness of breath. [] Cardiovascular: Reports central line not working denies chest pain or edema. [] GI: Reports chronic abdominal pain, nausea, denies vomiting, bloody stools or diarrhea. [] : Denies dysuria. [] Musculoskeletal: Denies back pain or joint pain. [] Integument: Denies rash. [] Neurologic: Denies headache, focal weakness or sensory changes. [] Endocrine: Denies polyuria or polydipsia. [] Lymphatic: Denies swollen glands. [] Psychiatric: Denies depression or anxiety. [] Heart Score: C/O Chest Pain: N/A Risk Factors: Risk Factors: DM, Current or recent (<one month) smoker, HTN, HLP, family hi story of CAD, obesity. Risk Scores: Score 0 - 3: 2.5% MACE over next 6 weeks - Discharge Home Score 4 - 6: 20.3% MACE over next 6 weeks - Admit for Clinical Observation Score 7 - 10: 72.7% MACE over next 6 weeks - Early Invasive Strategies Current Medications: Current Medications Medications (Trade) Dose Ordered Sig/Kel Start Time Stop Time Status Last Admin Dose Admin Diphenhydramine HCl (Benadryl) 25 mg 1X ONCE 3/1/22 20:15 07/21/21 20:16 DC 07/21/21 20:38 25 MG Hydromorphone HCl (Dilaudid) 1 mg 1X ONCE 07/21/21 23:30 07/21/21 23:31 DC 07/21/21 23:37 1 MG Ondansetron HCl (Zofran) 4 mg 1X ONCE 07/21/21 20:15 07/21/21 20:16 DC 07/21/21 20:39 4 MG Sodium Chloride 1,000 ml @ 1,000 mls/hr 1X ONCE 07/21/21 20:15 07/21/21 21:14 DC 07/21/21 20:38 1,000 MLS/HR Allergies: Allergies: Allergies Coded Allergies Type Severity Reaction Last Updated Verified iron Allergy Severe Anaphylaxis 07/14/21 Yes Penicillins Allergy Intermediate LIGHT RASH CHILD 07/14/21 Yes Sulfa (Sulfonamide Antibiotics) Allergy Intermediate 07/14/21 Yes I S O L A T I O N *CONTACT* Allergy Unknown 07/14/21 Yes Physical Exam: PE: Constitutional: Well developed, well nourished, no acute distress, non-toxic appearance. [] HENT: Normocephalic, atraumatic, bilateral external ears normal, oropharynx moist, no oral exudates, nose normal. [] Eyes: PERRLA, EOMI, conjunctiva normal, no discharge. [] Neck: Normal range of motion, no tenderness, supple, no stridor. [] Cardiovascular:Heart rate regular rhythm, no murmur, right upper chest with a central line, no signs of infection around the site Lungs & Thorax: Bilateral breath sounds clear to auscultation [] Abdomen: Abdomen with 2 G-tubes, there is an old G-tube site on the left abdomen that is closing up, bowel sounds normal, soft, diffuse tenderness throughout the abdomen, no masses, no pulsatile masses. [] Skin: Warm, dry, no erythema, no rash. [] Back: No tenderness, no CVA tenderness. [] Extremities: No tenderness, no cyanosis, no clubbing, ROM intact, no edema. [] Neurologic: Alert and oriented X 3, normal motor function, normal sensory function, no focal deficits noted. [] Psychologic: Affect normal, judgement normal, mood normal. [] Current Patient Data: Labs: Laboratory Tests Test 07/21/21 20:15 White Blood Count 7.3 x10^3/uL (4.0-11.0) Red Blood Count 3.75 x10^6/uL (3.50-5.40) Hemoglobin 10.1 g/dL (12.0-15.5) L Hematocrit 31.6 % (36.0-47.0) L Mean Corpuscular Volume 84 fL (79-100) Mean Corpuscular Hemoglobin 27 pg (25-35) Mean Corpuscular Hemoglobin Concent 32 g/dL (31-37) Red Cell Distribution Width 23.3 % (11.5-14.5) H Platelet Count 201 x10^3/uL (140-400) Neutrophils (%) (Auto) 64 % (31-73) Lymphocytes (%) (Auto) 26 % (24-48) Monocytes (%) (Auto) 9 % (0-9) Eosinophils (%) (Auto) 1 % (0-3) Basophils (%) (Auto) 1 % (0-3) Neutrophils # (Auto) 4.7 x10^3/uL (1.8-7.7) Lymphocytes # (Auto) 1.9 x10^3/uL (1.0-4.8) Monocytes # (Auto) 0.6 x10^3/uL (0.0-1.1) Eosinophils # (Auto) 0.1 x10^3/uL (0.0-0.7) Basophils # (Auto) 0.0 x10^3/uL (0.0-0.2) Platelet Estimate Adequate (ADEQUATE) Polychromasia Slight Microcytosis Mod Macrocytosis Slight Sodium Level 144 mmol/L (136-145) Potassium Level 4.3 mmol/L (3.5-5.1) Chloride Level 105 mmol/L (98-107) Carbon Dioxide Level 27 mmol/L (21-32) Anion Gap 12 (6-14) Blood Urea Nitrogen 11 mg/dL (7-20) Creatinine 0.7 mg/dL (0.6-1.0) Estimated GFR (Cockcroft-Gault) 103.7 BUN/Creatinine Ratio 16 (6-20) Glucose Level 85 mg/dL (70-99) Calcium Level 8.3 mg/dL (8.5-10.1) L Total Bilirubin 0.2 mg/dL (0.2-1.0) Aspartate Amino Transferase (AST) 29 U/L (15-37) Alanine Aminotransferase (ALT) 46 U/L (14-59) Alkaline Phosphatase 166 U/L (46-116) H Total Protein 7.4 g/dL (6.4-8.2) Albumin 3.8 g/dL (3.4-5.0) Albumin/Globulin Ratio 1.1 (1.0-1.7) Lipase 37 U/L (73-393) L Laboratory Tests 07/21/21 20:15 Laboratory Tests 07/21/21 20:15 Vital Signs: Vital Signs Date Time Temp Pulse Resp B/P (MAP) Pulse Ox O2 Delivery O2 Flow Rate FiO2 07/21/21 23:45 110 110/55 (73) 98 Room Air 07/21/21 23:37 16 07/21/21 19:31 98.4 98.4 EKG: EKG: [] Radiology/Procedures: Radiology/Procedures: []PROCEDURE: KUB Single view abdomen dated 07/21/2021. COMPARISON: None. Clinical data indication: Pain. FINDINGS: 2 supine images submitted. Nondilated gas-filled loops of bowel throughout. No abnormal calcification. There is a percutaneous gastric tube in place. There is a second tube percutaneous small bowel tube in the right mid abdomen, similar in position to prior study. Clips in the right upper quadrant compatible with prior cholecystectomy. IMPRESSION: 1. Nonobstructive bowel gas pattern. Electronically signed by: Hipolito Baca MD (07/21/2021 10:28 PM) [facility] [place] and SIGNED BY: HIPOLITO BACA MD DATE: 07/21/21 [id number] 0 Course & Med Decision Making: Course & Med Decision Making Pertinent Labs and Imaging studies reviewed. (See chart for details) This is a 21-year-old female patient well-known to this ED presenting today complaining of generalized abdominal pain with nausea, symptoms began yesterday after being discharged from the hospital. Patient also states central line is not working, she states she supposed to be on IV antibiotics. CBC with a normal WBC, CMP with no acute findings. Spoke to Dr. Duvall-who accepted patient for admission Spoke to Dr. Santana who will follow up with patient Pooja Disclaimer: Pooja Disclaimer: This electronic medical record was generated, in whole or in part, using a voice recognition dictation system. Departure Departure Impression: Primary Impression: Intractable abdominal pain Disposition: ADMITTED INPATIENT Condition: STABLE Referrals: ARASH YUN NP (PCP) HEYDI MORRIS APRN Jul 22, 2021 00:54
[2021-07-22] MEDS ORDERED: ONDANSETRON PF 4 MG/2 ML VIAL. IVP PRN (01:00)
[2021-07-22] MEDS ORDERED: IV NORMAL SALINE 1000ML BAG 1,000 ML IV ONE (01:30)
[2021-07-22] MEDS: HYDROmorphone 2 MG/ML INJ. IVP PRN ×6 (01:46→21:19)
[2021-07-22] MEDS: diphenhydrAMINE 50 MG/ML VIAL IVP PRN ×3 (03:17→21:19)
[2021-07-22] MEDS ORDERED: guaiFENesin DM 200MG/20MG 10 ML SYRUP PO PRN (07:15)
[2021-07-22] MEDS ORDERED: TPN PER PHARMACY MC PRN (07:15)
[2021-07-22] MEDS ORDERED: MONTELUKAST SODIUM 10 MG TABLET. PO PRN (07:15)
[2021-07-22] MEDS ORDERED: IPRATRPIUM/ALBUTEROL 0.5/2.5MG 3 ML NEBU. NEB PRN (07:15)
[2021-07-22] MEDS ORDERED: ALBUTEROL SULFATE 2.5 MG/3 ML NEBU. NEB PRN (07:15)
[2021-07-22] MEDS ORDERED: HYDROcodon/APAP 7.5/325MG ORAL 15 ML SOLUTION PO PRN (07:15)
[2021-07-22] MEDS ORDERED: BISACODYL 10 MG SUPP.RECT. PR PRN (07:15)
[2021-07-22] MEDS ORDERED: CEFTRIAXONE 2 GM IVP SCH (07:15)
[2021-07-22] MEDS ORDERED: ACETAMINOPHEN 325 MG TABLET. PO PRN (07:15)
--- NOTE | 2021-07-22 08:23 | PDOC1 ---
History and Physical Date of Service: DOS: DATE: 07/22/21 TIME: 08:17 Chief Complaint: Chief Complain: Multiple complaints including abdominal pain History of Present Illness: HPI: History obtained from chart review: 21 year old female with hx of HTN, GERD, extensive abdominal surgeries who presents to the ED today with complaints of 8 out of 10 generalized abdominal pain, symptoms began yesterday after she was discharged from the hospital. Patient states she is on IV antibiotics for pneumonia and UTI, she states her ce ntral line is not working. She states she was unable to get any blood return from it. Patient denies anything specifically exacerbating or relieving her abdominal pain. She is also complaining of nausea. Past Medical/Surgical History: PMH/PSH: Past Medical History: Asthma, DVT, GERD, Hypertension, Migraines, MRSA, GASTROPARSIS, INTESTIAL DISMOTILITY, Past Surgical History: Appendectomy, Cholecystectomy, Tonsillectomy, G TUBES, J TUBES, GJ TUBES Allergies: Allergies: Coded Allergies: iron (Verified Allergy, Severe, Anaphylaxis, 07/14/21) Penicillins (Verified Allergy, Intermediate, LIGHT RASH CHILD, 07/14/21) TOLERATES ZOSYN Sulfa (Sulfonamide Antibiotics) (Verified Allergy, Intermediate, 07/14/21) I S O L A T I O N *CONTACT* (Verified Allergy, Unknown, 07/14/21) mrsa Family History: Family History: Reviewed with no relevant findings in the chart Social History: Social History: Denies alcohol, tobacco or drug abuse Current Medications: Current Medications Current Medications Sodium Chloride 1,000 ml @ 1,000 mls/hr 1X ONCE IV Last administered on 07/21/21at 20:38; Start 07/21/21 at 20:15; Stop 07/21/21 at 21:14; Status DC Ondansetron HCl (Zofran) 4 mg 1X ONCE IVP Last administered on 07/21/21at 20:39; Start 07/21/21 at 20:15; Stop 07/21/21 at 20:16; Status DC Hydromorphone HCl (Dilaudid) 1 mg 1X ONCE IVP Last administered on 07/21/21at 20:38; Start 07/21/21 at 20:15; Stop 07/21/21 at 20:16; Status DC Diphenhydramine HCl (Benadryl) 25 mg 1X ONCE IVP Last administered on 07/21/21at 20:38; Start 07/21/21 at 20:15; Stop 07/21/21 at 20:16; Status DC Hydromorphone HCl (Dilaudid) 1 mg 1X ONCE IVP Last administered on 07/21/21at 23:37; Start 07/21/21 at 23:30; Stop 07/21/21 at 23:31; Status DC Ondansetron HCl (Zofran) 4 mg PRN Q8HRS PRN IVP NAUSEA/VOMITING 1ST CHOICE; Start 07/22/21 at 01:00; Stop 07/22/21 at 07:13; Status DC Sodium Chloride 1,000 ml @ 75 mls/hr 1X ONCE IV Last administered on 07/22/21at 01:46; Start 07/22/21 at 01:30; Stop 07/22/21 at 14:49 Hydromorphone HCl (Dilaudid) 1 mg PRN Q3HRS PRN IVP SEVERE PAIN 7-10 Last administered on 07/22/21at 05:34; Start 07/22/21 at 01:00 Diphenhydramine HCl (Benadryl) 25 mg PRN Q6HRS PRN IVP ITCHING Last administered on 07/22/21at 03:17; Start 07/22/21 at 01:00 Bisacodyl (Dulcolax Supp) 10 mg PRN DAILY PRN DE CONSTIPATION, 1sT CHOICE; Start 07/22/21 at 07:15 Acetaminophen/ Hydrocodone Bitart (Lortab 7.5-325/ 15ml Oral Solution) 15 ml PRN Q6HRS PRN PO PAIN; Start 07/22/21 at 07:15 Albuterol/ Ipratropium (Duoneb) 3 ml PRN QID PRN NEB asthma; Start 07/22/21 at 07:15 Linezolid/Dextrose (Zyvox Premix) 600 mg BID IV ; Start 07/22/21 at 09:00; Stop 07/22/21 at 07:21; Status DC Montelukast Sodium (Singulair) 10 mg PRN DAILY PRN PO asthma; Start 07/22/21 at 07:15 Ondansetron HCl (Zofran) 4 mg PRN Q6HRS PRN IVP NAUSEA/VOMITING 1ST CHOICE; Start 07/22/21 at 07:15 Non-Formulary Medication ([cefTRIAXone IV Push] ) 2 gm Q24H IVP ; Start 07/22/21 at 07:15; Stop 07/22/21 at 07:28; Status DC Non-Formulary Medication ([Tpn Per Pharmacy] ) 1 each PRN DAILY PRN MC SEE COMMENTS; Start 07/22/21 at 07:15; Stop 07/22/21 at 07:29; Status DC Guaifenesin (Robitussin Dm) 10 ml PRN Q6HRS PRN PO COUGH; Start 07/22/21 at 07:15 Albuterol Sulfate (Ventolin Neb Soln) 2.5 mg PRN Q4HRS PRN NEB SHORTNESS OF BREATH; Start 07/22/21 at 07:15 Acetaminophen (Tylenol) 650 mg PRN Q6HRS PRN PO MILD PAIN / TEMP > 100.3'F; Start 07/22/21 at 07:15 Linezolid/Dextrose 300 ml @ 300 mls/hr Q12HR IV ; Start 07/22/21 at 09:00 Ceftriaxone Sodium (Rocephin) 2 gm Q24H IVP ; Start 07/22/21 at 09:00 Info (Tpn Per Pharmacy) 1 each PRN DAILY PRN MC SEE COMMENTS; Start 07/22/21 at 07:30 Active Scripts Active Linezolid-D5w (Linezolid) 600 Mg/300 Ml Piggyback 600 Mg IV BID 5 Days [Ceftriaxone Sodium] 2 GM Vial 2 Gm IVP Q24H 10 Days Hydrocodone-Apap 7.5-325/15 Soln (Hydrocodone Bit/Acetaminophen) 15 Ml Solution 15 Ml PO PRN Q6HRS PRN Transderm-Scop (Scopolamine) 1 Each Patch.td72 1 Patch TP Q3DAYS [Tpn Per Pharmacy] 1 EACH Each 1 Each MC PRN DAILY PRN 30 Days Ondansetron Hcl 4 Mg/2 Ml Vial (Ondansetron Hcl/Pf) 4 Mg/2 Ml Vial 4 Mg IVP PRN Q6HRS PRN 30 Days Bisacodyl 10 Mg Supp.rect 10 Mg DE PRN DAILY PRN 30 Days Reported Benadryl (Diphenhydramine Hcl) 25 Mg Capsule 2 Cap PO QHS 30 Days Incruse Ellipta (Umeclidinium [place]) 62.5 Mcg Blst.w.dev 62.5 Mcg IH DAILY Advair 250-50 Diskus (Fluticasone/Salmeterol) 1 Each Disk.w.dev 1 Puff IH BID Valproic Acid (Valproate Sodium) 500 Mg/10 Ml Solution 500 Mg JT BID Metoprolol Tartrate 75 Mg Tablet 25 Mg PO BID Levbid (Hyoscyamine Sulfate) 0.375 Mg Tab.er.12h 0.375 Mg JT BID Ajovy Autoinjector (Fremanezumab-Vfrm) 225 Mg/1.5 Ml Auto.injct 225 Mg SQ QMONTH Tizanidine Hcl 2 Mg Capsule 2 Mg JT Q8HRS PRN Gabapentin 600 Mg Tablet 300 Mg JT TID Midodrine Hcl 5 Mg Tablet 5 Mg SL BID Olopatadine HCl 5 Ml Drops 0.1 % OP PRN DAILY PRN Proair Hfa (Albuterol Sulfate) 8.5 Gm Hfa.aer.ad 2 Puff IH PRN Q4-6HRS PRN 21 Days Ipratropium [place] 30 Ml Reading 1 Reading NS BID Duoneb 0.5-3(2.5) Mg/3 Ml (Albuterol/Ipratropium) 3 Ml Ampul.neb 3 Ml NEB PRN QID PRN Montelukast Sodium Tablet (Montelukast Sodium) 10 Mg Tablet 10 Mg PO DAILY PRN ROS: Review of Systems Review of System REVIEW OF SYSTEMS: GENERAL: Denies weakness SKIN: No bruising, hair changes or rashes. EYES: No blurred, double or loss of vision. NOSE AND THROAT: No history of nosebleeds, hoarseness or sore throat. HEART: No history of palpitations, chest pain or shortness of breath on exertion. LUNGS: Denies cough, hemoptysis, wheezing or shortness of breath. GASTROINTESTINAL: Positive for abdominal pain GENITOURINARY: No history of frequency, urgency, hesitancy or nocturia. NEUROLOGIC: Denies history of numbness, tingling, or tremor. PSYCHIATRIC: No history of panic, anxiety or depression. ENDOCRINE: No history of heat or cold intolerance, polyuria or polydipsia. EXTREMITIES: Denies joint pain, pain on walking or stiffness. Physical Exam: Vital Signs: Vital Signs Date Time Temp Pulse Resp B/P (MAP) Pulse Ox O2 Delivery O2 Flow Rate FiO2 07/22/21 07:33 98.0 90 20 107/50 (69) 100 Room Air 98.0 Physcial Exam: General: Well developed, well nourished, no acute distress, well appearing HEENT: Pupils equally round and reactive to light, EOMI, no discharge, normal conjunctiva Neck: Supple, no nuchal rigidity, no JVD, trachea midline, no tenderness Cardiac: RRR, no murmurs, no gallops, no rubs Chest/Lungs: CTAB, no wheeze, no rhonchi, no crackles Abdomen: soft, non-distended, no guarding, no peritoneal signs, non-tender Back: No tenderness Extremities: no edema, pulses intact, non-tender,capillary refill <3 sec bilateral upper and lower extremities chest port appears clear dry and intact. No surrounding erythema Neuro: Alert and oriented x 4, no focal deficits, normal speech Labs: Labs: Laboratory Tests Test 07/21/21 20:15 White Blood Count 7.3 x10^3/uL (4.0-11.0) Red Blood Count 3.75 x10^6/uL (3.50-5.40) Hemoglobin 10.1 g/dL (12.0-15.5) Hematocrit 31.6 % (36.0-47.0) Mean Corpuscular Volume 84 fL (79-100) Mean Corpuscular Hemoglobin 27 pg (25-35) Mean Corpuscular Hemoglobin Concent 32 g/dL (31-37) Red Cell Distribution Width 23.3 % (11.5-14.5) Platelet Count 201 x10^3/uL (140-400) Neutrophils (%) (Auto) 64 % (31-73) Lymphocytes (%) (Auto) 26 % (24-48) Monocytes (%) (Auto) 9 % (0-9) Eosinophils (%) (Auto) 1 % (0-3) Basophils (%) (Auto) 1 % (0-3) Neutrophils # (Auto) 4.7 x10^3/uL (1.8-7.7) Lymphocytes # (Auto) 1.9 x10^3/uL (1.0-4.8) Monocytes # (Auto) 0.6 x10^3/uL (0.0-1.1) Eosinophils # (Auto) 0.1 x10^3/uL (0.0-0.7) Basophils # (Auto) 0.0 x10^3/uL (0.0-0.2) Platelet Estimate Adequate (ADEQUATE) Polychromasia Slight Microcytosis Mod Macrocytosis Slight Sodium Level 144 mmol/L (136-145) Potassium Level 4.3 mmol/L (3.5-5.1) Chloride Level 105 mmol/L (98-107) Carbon Dioxide Level 27 mmol/L (21-32) Anion Gap 12 (6-14) Blood Urea Nitrogen 11 mg/dL (7-20) Creatinine 0.7 mg/dL (0.6-1.0) Estimated GFR (Cockcroft-Gault) 103.7 BUN/Creatinine Ratio 16 (6-20) Glucose Level 85 mg/dL (70-99) Calcium Level 8.3 mg/dL (8.5-10.1) Total Bilirubin 0.2 mg/dL (0.2-1.0) Aspartate Amino Transf (AST/SGOT) 29 U/L (15-37) Alanine Aminotransferase (ALT/SGPT) 46 U/L (14-59) Alkaline Phosphatase 166 U/L (46-116) Total Protein 7.4 g/dL (6.4-8.2) Albumin 3.8 g/dL (3.4-5.0) Albumin/Globulin Ratio 1.1 (1.0-1.7) Lipase 37 U/L (73-393) Laboratory Tests Test 07/21/21 20:15 White Blood Count 7.3 x10^3/uL (4.0-11.0) Red Blood Count 3.75 x10^6/uL (3.50-5.40) Hemoglobin 10.1 g/dL (12.0-15.5) Hematocrit 31.6 % (36.0-47.0) Mean Corpuscular Volume 84 fL (79-100) Mean Corpuscular Hemoglobin 27 pg (25-35) Mean Corpuscular Hemoglobin Concent 32 g/dL (31-37) Red Cell Distribution Width 23.3 % (11.5-14.5) Platelet Count 201 x10^3/uL (140-400) Neutrophils (%) (Auto) 64 % (31-73) Lymphocytes (%) (Auto) 26 % (24-48) Monocytes (%) (Auto) 9 % (0-9) Eosinophils (%) (Auto) 1 % (0-3) Basophils (%) (Auto) 1 % (0-3) Neutrophils # (Auto) 4.7 x10^3/uL (1.8-7.7) Lymphocytes # (Auto) 1.9 x10^3/uL (1.0-4.8) Monocytes # (Auto) 0.6 x10^3/uL (0.0-1.1) Eosinophils # (Auto) 0.1 x10^3/uL (0.0-0.7) Basophils # (Auto) 0.0 x10^3/uL (0.0-0.2) Platelet Estimate Adequate (ADEQUATE) Polychromasia Slight Microcytosis Mod Macrocytosis Slight Sodium Level 144 mmol/L (136-145) Potassium Level 4.3 mmol/L (3.5-5.1) Chloride Level 105 mmol/L (98-107) Carbon Dioxide Level 27 mmol/L (21-32) Anion Gap 12 (6-14) Blood Urea Nitrogen 11 mg/dL (7-20) Creatinine 0.7 mg/dL (0.6-1.0) Estimated GFR (Cockcroft-Gault) 103.7 BUN/Creatinine Ratio 16 (6-20) Glucose Level 85 mg/dL (70-99) Calcium Level 8.3 mg/dL (8.5-10.1) Total Bilirubin 0.2 mg/dL (0.2-1.0) Aspartate Amino Transf (AST/SGOT) 29 U/L (15-37) Alanine Aminotransferase (ALT/SGPT) 46 U/L (14-59) Alkaline Phosphatase 166 U/L (46-116) Total Protein 7.4 g/dL (6.4-8.2) Albumin 3.8 g/dL (3.4-5.0) Albumin/Globulin Ratio 1.1 (1.0-1.7) Lipase 37 U/L (73-393) Images: Images PROCEDURE: KUB Single view abdomen dated 07/21/2021. COMPARISON: None. Clinical data indication: Pain. FINDINGS: 2 supine images submitted. Nondilated gas-filled loops of bowel throughout. No abnormal calcification. There is a percutaneous gastric tube in place. There is a second tube percutaneous small bowel tube in the right mid abdomen, similar in position to prior study. Clips in the right upper quadrant compatible with prior cholecystectomy. IMPRESSION: 1. Nonobstructive bowel gas pattern. Assessment/Plan Assessment/Plan Acute on chronic pain syndrome UTI - enterococcus Sepsis from gram-negative bacteremia - klebsiella Acute on chronic abdominal pain Leaking J-tube and PEG tube sites Complex GI history Multiple GI procedures Psychiatric issues (suspect element of possible Munchhausen's?) Severe gastroparesis G-tube J-tube Recent second J-tube has been removed Pyloroplasty Home TPN Recent sepsis with intubation and respiratory failure Multiple EGDs H pylori GERD Hypertension History of gastroparesis. G tube , Two J tubes.Mild Irritation. TPN through central line. Hypertension. History of migraines and seizures. History of anxiety and depression. History of urinary retention, status post Carrillo intermittently, urinary tract infection. 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 Transaminitis, chronic, on TPN. H/o COVID positive May 25 and June 14 admission Admit to hospitalist service for further management Surgery consulted for GI and J-tube management Continue empiric IV antibiotics for now Continue TPN Nutrition consult Lovenox for DVT prophylaxis Protonix GI prophylaxis ADA diet CODE STATUS full code Discussed with RN and SW Disposition inpatient management as above DPOA: Mother Justifications for Admission Other Justification Fever DESIREE MCCALL MD Jul 22, 2021 08:23
[2021-07-22] MEDS ORDERED: LINEZOLID PREMIX 600 MG/300 ML BAG IV SCH (09:00)
[2021-07-22] MEDS: cefTRIAXone IV Push 2 GM VIAL. IVP SCH (09:21)
[2021-07-22] MEDS: TPN PER PHARMACY MC PRN (12:16)
--- NOTE | 2021-07-22 12:20 | NUR ---
Pharmacy TPN Dosing Note S: SUNITHA SCHULTZ is a 21 year old F Currently receiving Central Cyclic TPN started VERIFICATION CLERK B:Pertinent PMH: PRISON HOME TPN, NPO LABS: Sodium: 144 Potassium: 4.3 Chloride: 105 Calcium: 8.3 Corrected Calcium: 8.46 Magnesium: 2.2 from 07/20/21 CO2: 27 SCr: 0.7 Glucose: 85 Albumin: 3.8 AST: 29 ALT: 46 TPN FORMULA: TPN TYPE: Central Cyclic AMINO ACIDS: 82 gm DEXTROSE: 165 gm LIPIDS: 50grams q MOWEFR gm SODIUM CHLORIDE: 75 mEq SODIUM ACETATE: - mEq SODIUM PHOSPHATE: 20 mmol POTASSIUM CHLORIDE: 50 mEq POTASSIUM ACETATE: - mEq POTASSIUM PHOSPHATE: - mmol MAGNESIUM: 20 mEq CALCIUM: - mEq INSULIN: - units MULTIPLE VITAMIN: 10 ml TRACE ELEMENTS: 1ml ml(s) TPN PLAN: 07/22 continue TPN from previous admit (07/20/21), lytes ordered R: Continue TPN Will monitor electrolytes, glucose, and tolerance to TPN. SHAQUILLE LOWRY [facility], 07/22/21 [id number]
[2021-07-22] MEDS ORDERED: ALTEPLASE 1MG SYRINGE. INT CAT ONE (13:00)
--- NOTE | 2021-07-22 13:51 | NUR ---
SW following. Discussed with RN, pt from home with family and [facility], room air, NPO. Pt's port not working. Pt has home TPN through [facility]. Pt will discharge home with [facility] and [facility]. SW will continue to follow.
--- NOTE | 2021-07-22 16:32 | PDOC2 ---
Consult: Date of consult 07/[address] Blue Reason for consultation Bacteremia UTI antibiotic management HPI Pt well known to our team ,recently dc returned with abdominal pain, picc line not drawiing blood and diarrhea See last consult and last ID note for full details. She was afebrile, wbc normal, restarted on ceftriaxone and zyvox here from [facility] She says she is feeling better today except for diarrhea PE VSS GENERAL: Alert, oriented x 3 female lying in bed, in no distress.smiling HEENT: Normocephalic, atraumatic. Anicteric sclerae. No thrush. Oral mucosa moist. NECK: Supple. LUNGS: Clear. Powered PICC right chest wall clean HEART: S1, S2, No murmurs. ABDOMEN: Nondistended, G-tube and J-tubes present. BS + no Carrillo in place EXTREMITIES: No edema. DERMATOLOGIC: Warm, dry, no generalized rash. NEUROLOGIC: Alert, oriented x 3, grossly nonfocal, anxious. PSYCHIATRIC: calm cooperative, Medications: Inpatient Meds: Medications reviewed. Labs: reviewed Assessment: 1. Abdominal solis acute on chronic 2. Klebsiella pneumonia bacteremia present,1 out of 4 bottles present on a dmission. Repeat blood cultures negative 3. Enterococcus faecium amp resistant UTI. History of self-catheterization intermittently 4. Acute on chronic abdominal pain History of gastroparesis. G tube , Two J tubes.Mild Irritation. TPN through central line. 5. Hypertension. 6. History of migraines and seizures. 7. History of anxiety and depression. 8. History of urinary retention, status post Carrillo intermittently, urinary tract infection. 9. 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 10. Transaminitis, chronic, on TPN. 11. Chronic abdominal pain. 12. History of multiple J-tube exchanges. 13. HISTORY OF ALLERGIES TO SULFA AND PENICILLIN WITH NAUSEA AND VOMITING AND RASH, has tolerated Rocephin and meropenem. 14. COVID positive May 25 and June 14 admission 15. Status post Port-A-Cath removal May 2021 16. Power PICC placed June 13 last week 17. Diarrhea Plan : Continue ceftriaxone and linezolid Follow-up repeat blood cultures from July 17, 2021 which are negative C diff PCR PICC underliner Pain management per primary Continue local care of two J-tubes and G-tube. Continue supportive care. GAYLE RODRIGUEZ MD Jul 22, 2021 16:32
--- NOTE | 2021-07-22 16:55 | NUR ---
PT TRANSFERRED TO 442, REPORT RECEIVED FROM OMKAR ZHANG. CARE ASSUMED OF PT.
--- NOTE | 2021-07-22 17:33 | PDOC2 ---
CONSULT Date of Consult Date of Consult DATE: 07/22/21 TIME: 17:30 Reason for Consult Reason for Consult: abd pain Referring Physician Referring Physician: Dr. Duvall Identification/Chief Complaint Chief Complaint abd pain Source Source: Chart review, Patient History of Present Illness Reason for Visit: 21 yo F with bowel dysmotility. Noted to have fevers and non functional central line. Past Medical History Cardiovascular: HTN Pulmonary: No pertinent hx CENTRAL NERVOUS SYSTEM: Other GI: GERD, Other Heme/Onc: No pertinent hx Psych: Other Musculoskeletal: Other Rheumatologic: No pertinent hx Infectious disease: Other Renal/: UTI Endocrine: No pertinent hx Past Surgical History Past Surgical History: Appendectomy, Other Family History Family History: Hypertension, Family History Unknown Social History ALCOHOL: none Drugs: None Lives: with Family Current Problem List Problem List Problems Medical Problems: (1) Intractable abdominal pain Status: Acute Current Medications Current Medications Current Medications Sodium Chloride 1,000 ml @ 1,000 mls/hr 1X ONCE IV Last administered on 07/21/21at 20:38; Start 07/21/21 at 20:15; Stop 07/21/21 at 21:14; Status DC Ondansetron HCl (Zofran) 4 mg 1X ONCE IVP Last administered on 07/21/21at 20:39; Start 07/21/21 at 20:15; Stop 07/21/21 at 20:16; Status DC Hydromorphone HCl (Dilaudid) 1 mg 1X ONCE IVP Last administered on 07/21/21at 20:38; Start 07/21/21 at 20:15; Stop 07/21/21 at 20:16; Status DC Diphenhydramine HCl (Benadryl) 25 mg 1X ONCE IVP Last administered on 07/21/21at 20:38; Start 07/21/21 at 20:15; Stop 07/21/21 at 20:16; Status DC Hydromorphone HCl (Dilaudid) 1 mg 1X ONCE IVP Last administered on 07/21/21at 23:37; Start 07/21/21 at 23:30; Stop 07/21/21 at 23:31; Status DC Ondansetron HCl (Zofran) 4 mg PRN Q8HRS PRN IVP NAUSEA/VOMITING 1ST CHOICE; Start 07/22/21 at 01:00; Stop 07/22/21 at 07:13; Status DC Sodium Chloride 1,000 ml @ 75 mls/hr 1X ONCE IV Last administered on 07/22/21at 01:46; Start 07/22/21 at 01:30; Stop 07/22/21 at 14:49; Status DC Hydromorphone HCl (Dilaudid) 1 mg PRN Q3HRS PRN IVP SEVERE PAIN 7-10 Last administered on 07/22/21at 15:58; Start 07/22/21 at 01:00 Diphenhydramine HCl (Benadryl) 25 mg PRN Q6HRS PRN IVP ITCHING Last administered on 07/22/21at 12:52; Start 07/22/21 at 01:00 Bisacodyl (Dulcolax Supp) 10 mg PRN DAILY PRN OR CONSTIPATION, 1sT CHOICE; Start 07/22/21 at 07:15 Acetaminophen/ Hydrocodone Bitart (Lortab 7.5-325/ 15ml Oral Solution) 15 ml PRN Q6HRS PRN PO MODERATE TO SEVERE PAIN; Start 07/22/21 at 07:15 Albuterol/ Ipratropium (Duoneb) 3 ml PRN QID PRN NEB asthma Last administered on 07/22/21at 16:11; Start 07/22/21 at 07:15 Linezolid/Dextrose (Zyvox Premix) 600 mg BID IV ; Start 07/22/21 at 09:00; Status Cancel Montelukast Sodium (Singulair) 10 mg PRN DAILY PRN PO asthma; Start 07/22/21 at 07:15 Ondansetron HCl (Zofran) 4 mg PRN Q6HRS PRN IVP NAUSEA/VOMITING 1ST CHOICE; Start 07/22/21 at 07:15 Non-Formulary Medication ([cefTRIAXone IV Push] ) 2 gm Q24H IVP ; Start 07/22/21 at 07:15; Status Cancel Non-Formulary Medication ([Tpn Per Pharmacy] ) 1 each PRN DAILY PRN MC SEE COMMENTS; Start 07/22/21 at 07:15; Status Cancel Guaifenesin (Robitussin Dm) 10 ml PRN Q6HRS PRN PO COUGH; Start 07/22/21 at 07:15 Albuterol Sulfate (Ventolin Neb Soln) 2.5 mg PRN Q4HRS PRN NEB SHORTNESS OF BREATH; Start 07/22/21 at 07:15 Acetaminophen (Tylenol) 650 mg PRN Q6HRS PRN PO MILD PAIN / TEMP > 100.3'F; Start 07/22/21 at 07:15 Linezolid/Dextrose 300 ml @ 300 mls/hr Q12HR IV Last administered on 07/22/21at 09:21; Start 07/22/21 at 09:00; Stop 07/25/21 at 23:00 Ceftriaxone Sodium (Rocephin) 2 gm Q24H IVP Last administered on 07/22/21at 09:21; Start 07/22/21 at 09:00; Stop 07/30/21 at 23:00 Info (Tpn Per Pharmacy) 1 each PRN DAILY PRN MC SEE COMMENTS Last administered on 07/22/21at 12:16; Start 07/22/21 at 07:30 Sodium Chloride 75 meq/Sodium Phosphate 20 mmol/ Potassium Chloride 50 meq/ Magnesium Sulfate 20 meq/ Multivitamins 10 ml/Zinc/Copper/ Manganese/ Selenium 1 ml/ Total Parenteral Nutrition/Amino Acids/Dextrose/ Fat Emulsion Intravenous 1,650 ml @ 126.923 mls/hr TPN CONT IV ; Start 07/22/21 at 22:00; Stop 07/23/21 at 10:59 Alteplase, Recombinant (Cathflo For Central Catheter Clearance) 1 mg 1X ONCE INT CAT Last administered on 07/22/21at 14:05; Start 07/22/21 at 13:00; Stop 07/22/21 at 13:01; Status DC Active Scripts Active Linezolid-D5w (Linezolid) 600 Mg/300 Ml Piggyback 600 Mg IV BID 5 Days [Ceftriaxone Sodium] 2 GM Vial 2 Gm IVP Q24H 10 Days Hydrocodone-Apap 7.5-325/15 Soln (Hydrocodone Bit/Acetaminophen) 15 Ml Solution 15 Ml PO PRN Q6HRS PRN Transderm-Scop (Scopolamine) 1 Each Patch.td72 1 Patch TP Q3DAYS [Tpn Per Pharmacy] 1 EACH Each 1 Each MC PRN DAILY PRN 30 Days Ondansetron Hcl 4 Mg/2 Ml Vial (Ondansetron Hcl/Pf) 4 Mg/2 Ml Vial 4 Mg IVP PRN Q6HRS PRN 30 Days Bisacodyl 10 Mg Supp.rect 10 Mg OR PRN DAILY PRN 30 Days Reported Benadryl (Diphenhydramine Hcl) 25 Mg Capsule 2 Cap PO QHS 30 Days Incruse Ellipta (Umeclidinium [place]) 62.5 Mcg Blst.w.dev 62.5 Mcg IH DAILY Advair 250-50 Diskus (Fluticasone/Salmeterol) 1 Each Disk.w.dev 1 Puff IH BID Valproic Acid (Valproate Sodium) 500 Mg/10 Ml Solution 500 Mg JT BID Metoprolol Tartrate 75 Mg Tablet 25 Mg PO BID Levbid (Hyoscyamine Sulfate) 0.375 Mg Tab.er.12h 0.375 Mg JT BID Ajovy Autoinjector (Fremanezumab-Vfrm) 225 Mg/1.5 Ml Auto.injct 225 Mg SQ QMONTH Tizanidine Hcl 2 Mg Capsule 2 Mg JT Q8HRS PRN Gabapentin 600 Mg Tablet 300 Mg JT TID Midodrine Hcl 5 Mg Tablet 5 Mg SL BID Olopatadine HCl 5 Ml Drops 0.1 % OP PRN DAILY PRN Proair Hfa (Albuterol Sulfate) 8.5 Gm Hfa.aer.ad 2 Puff IH PRN Q4-6HRS PRN 21 Days Ipratropium [place] 30 Ml [place] 1 [place] NS BID Duoneb 0.5-3(2.5) Mg/3 Ml (Albuterol/Ipratropium) 3 Ml Ampul.neb 3 Ml NEB PRN QID PRN Montelukast Sodium Tablet (Montelukast Sodium) 10 Mg Tablet 10 Mg PO DAILY PRN Allergies Allergies: Coded Allergies: iron (Verified Allergy, Severe, Anaphylaxis, 07/14/21) Penicillins (Verified Allergy, Intermediate, LIGHT RASH CHILD, 07/14/21) TOLERATES ZOSYN Sulfa (Sulfonamide Antibiotics) (Verified Allergy, Intermediate, 07/14/21) I S O L A T I O N *CONTACT* (Verified Allergy, Unknown, 07/14/21) mrsa ROS Gastrointestinal: Yes Nausea, Yes Vomiting, Yes Abdominal Pain Physical Exam General: Alert, Oriented X3, Cooperative, mild distress HEENT: Atraumatic Lungs: Normal air movement Abdomen: Soft, Other (tubes in place) Extremities: No clubbing, No cyanosis Skin: No rashes, No breakdown Neuro: Normal speech, Sensation intact Psych/Mental Status: Mental status NL, Mood NL Vitals VITALS Vital Signs Date Time Temp Pulse Resp B/P (MAP) Pulse Ox O2 Delivery O2 Flow Rate FiO2 07/22/21 16:28 17 98 Room Air 07/22/21 14:45 97.9 80 111/56 (74) 97.9 Labs Labs Laboratory Tests Test 07/21/21 20:15 White Blood Count 7.3 x10^3/uL (4.0-11.0) Red Blood Count 3.75 x10^6/uL (3.50-5.40) Hemoglobin 10.1 g/dL (12.0-15.5) Hematocrit 31.6 % (36.0-47.0) Mean Corpuscular Volume 84 fL (79-100) Mean Corpuscular Hemoglobin 27 pg (25-35) Mean Corpuscular Hemoglobin Concent 32 g/dL (31-37) Red Cell Distribution Width 23.3 % (11.5-14.5) Platelet Count 201 x10^3/uL (140-400) Neutrophils (%) (Auto) 64 % (31-73) Lymphocytes (%) (Auto) 26 % (24-48) Monocytes (%) (Auto) 9 % (0-9) Eosinophils (%) (Auto) 1 % (0-3) Basophils (%) (Auto) 1 % (0-3) Neutrophils # (Auto) 4.7 x10^3/uL (1.8-7.7) Lymphocytes # (Auto) 1.9 x10^3/uL (1.0-4.8) Monocytes # (Auto) 0.6 x10^3/uL (0.0-1.1) Eosinophils # (Auto) 0.1 x10^3/uL (0.0-0.7) Basophils # (Auto) 0.0 x10^3/uL (0.0-0.2) Platelet Estimate Adequate (ADEQUATE) Polychromasia Slight Microcytosis Mod Macrocytosis Slight Sodium Level 144 mmol/L (136-145) Potassium Level 4.3 mmol/L (3.5-5.1) Chloride Level 105 mmol/L (98-107) Carbon Dioxide Level 27 mmol/L (21-32) Anion Gap 12 (6-14) Blood Urea Nitrogen 11 mg/dL (7-20) Creatinine 0.7 mg/dL (0.6-1.0) Estimated GFR (Cockcroft-Gault) 103.7 BUN/Creatinine Ratio 16 (6-20) Glucose Level 85 mg/dL (70-99) Calcium Level 8.3 mg/dL (8.5-10.1) Total Bilirubin 0.2 mg/dL (0.2-1.0) Aspartate Amino Transf (AST/SGOT) 29 U/L (15-37) Alanine Aminotransferase (ALT/SGPT) 46 U/L (14-59) Alkaline Phosphatase 166 U/L (46-116) Total Protein 7.4 g/dL (6.4-8.2) Albumin 3.8 g/dL (3.4-5.0) Albumin/Globulin Ratio 1.1 (1.0-1.7) Lipase 37 U/L (73-393) Laboratory Tests Test 07/21/21 20:15 White Blood Count 7.3 x10^3/uL (4.0-11.0) Red Blood Count 3.75 x10^6/uL (3.50-5.40) Hemoglobin 10.1 g/dL (12.0-15.5) Hematocrit 31.6 % (36.0-47.0) Mean Corpuscular Volume 84 fL (79-100) Mean Corpuscular Hemoglobin 27 pg (25-35) Mean Corpuscular Hemoglobin Concent 32 g/dL (31-37) Red Cell Distribution Width 23.3 % (11.5-14.5) Platelet Count 201 x10^3/uL (140-400) Neutrophils (%) (Auto) 64 % (31-73) Lymphocytes (%) (Auto) 26 % (24-48) Monocytes (%) (Auto) 9 % (0-9) Eosinophils (%) (Auto) 1 % (0-3) Basophils (%) (Auto) 1 % (0-3) Neutrophils # (Auto) 4.7 x10^3/uL (1.8-7.7) Lymphocytes # (Auto) 1.9 x10^3/uL (1.0-4.8) Monocytes # (Auto) 0.6 x10^3/uL (0.0-1.1) Eosinophils # (Auto) 0.1 x10^3/uL (0.0-0.7) Basophils # (Auto) 0.0 x10^3/uL (0.0-0.2) Platelet Estimate Adequate (ADEQUATE) Polychromasia Slight Microcytosis Mod Macrocytosis Slight Sodium Level 144 mmol/L (136-145) Potassium Level 4.3 mmol/L (3.5-5.1) Chloride Level 105 mmol/L (98-107) Carbon Dioxide Level 27 mmol/L (21-32) Anion Gap 12 (6-14) Blood Urea Nitrogen 11 mg/dL (7-20) Creatinine 0.7 mg/dL (0.6-1.0) Estimated GFR (Cockcroft-Gault) 103.7 BUN/Creatinine Ratio 16 (6-20) Glucose Level 85 mg/dL (70-99) Calcium Level 8.3 mg/dL (8.5-10.1) Total Bilirubin 0.2 mg/dL (0.2-1.0) Aspartate Amino Transf (AST/SGOT) 29 U/L (15-37) Alanine Aminotransferase (ALT/SGPT) 46 U/L (14-59) Alkaline Phosphatase 166 U/L (46-116) Total Protein 7.4 g/dL (6.4-8.2) Albumin 3.8 g/dL (3.4-5.0) Albumin/Globulin Ratio 1.1 (1.0-1.7) Lipase 37 U/L (73-393) Assessment/Plan Assessment/Plan abd pain cont supportive care, no surgical plans local wound care for tubes will ask IR to evaluate central line Thanks for consult! TORIE MILLER MD Jul 22, 2021 17:33
[2021-07-22] MEDS: ONDANSETRON PF 4 MG/2 ML VIAL. IVP PRN (18:19)
[2021-07-22] MEDS ORDERED: AMINO ACID IV SCH (22:00)
[2021-07-22] MEDS ORDERED: [UNRECOGNIZED DRUG - OTHER] IV SCH (22:00)
[2021-07-22] MEDS ORDERED: DEXTROSE 70% IV SCH (22:00)
[2021-07-22] MEDS ORDERED: TOTAL PARENTERAL NUTRITION IV SCH (22:00)
[2021-07-23] MEDS: ONDANSETRON PF 4 MG/2 ML VIAL. IVP PRN ×2 (01:12→10:31)
[2021-07-23] MEDS: HYDROmorphone 2 MG/ML INJ. IVP PRN ×7 (01:12→22:15)
[2021-07-23 03:15] VITALS: BP 105/60
[2021-07-23] MEDS: diphenhydrAMINE 50 MG/ML VIAL IVP PRN ×3 (04:19→18:04)
[2021-07-23 05:39] LABS: BASO % 0 % (0-3); EOS # 0.1 x10^3/uL (0.0-0.7); EOS % 1 % (0-3); HEMATOCRIT 29.7 % (36.0-47.0); HEMOGLOBIN 9.8 g/dL (12.0-15.5); LYMPH # 1.3 x10^3/uL (1.0-4.8); LYMPH % 21 % (24-48); MEAN CORPUSCULAR HEMOGLOBIN 28 pg (25-35); MEAN CORPUSCULAR HGB CONC 33 g/dL (31-37); MEAN CORPUSCULAR VOLUME 84 fL (79-100); MONO # 0.5 x10^3/uL (0.0-1.1); MONO % 8 % (0-9); NEUT # 4.4 x10^3/uL (1.8-7.7); NEUT % 71 % (31-73); PLATELET COUNT 225 x10^3/uL (140-400); RED BLOOD COUNT 3.54 x10^6/uL (3.50-5.40); RED CELL DISTRIBUTION WIDTH 22.9 % (11.5-14.5); WHITE BLOOD COUNT 6.3 x10^3/uL (4.0-11.0)
[2021-07-23 06:04] LABS: CALCIUM 8.1 mg/dL (8.5-10.1); CREATININE 0.5 mg/dL (0.6-1.0); GFR 152.9; MAGNESIUM 2.1 mg/dL (1.8-2.4); POTASSIUM 3.9 mmol/L (3.5-5.1)
[2021-07-23 07:00] VITALS: BP 112/72
--- NOTE | 2021-07-23 07:52 | PDOC ---
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 G tube , Two J tubes.Mild Irritation. TPN through central line. Hypertension. History of migraines and seizures. History of anxiety and depression. History of urinary retention, status post Carrillo intermittently, urinary tract infection. 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 Transaminitis, chronic, on TPN. H/o COVID positive May 25 and June 14 admission History of Present Illness History of Present Illness Ms Mustafa is a 21-year-old female well known to our service from recent admission who presented to the ER c/o worsening acute on chronic abdominal pain, and inability to use her home PICC line. She was recently discharged after diagnosed with Klebsiella pneumonia bacteremia and enteroccal UTI. Was recommended to have line removed and replaced. She opted for line salvage and returns hospital for reconsideration. Historically recently underwent G-tube and G-tube exchange on July 14, 2021. Consults: General surgery, ID 07/23: After nursing Jass dilation of TPA PICC line is nonfunctional. Abdominal pain slightly improved counseled to try pain medications through GI rather than IV. Had some diarrhea C. difficile pending. Vitals/I&O Vitals/I&O: Vital Signs Date Time Temp Pulse Resp B/P (MAP) Pulse Ox O2 Delivery O2 Flow Rate FiO2 07/23/21 07:39 96 Room Air 07/23/21 05:14 16 07/23/21 03:15 98.0 92 105/60 (75) 98.0 I & O 07/22/21 07/22/21 07/23/21 15:00 23:00 07:00 Intake Total 0 ml Balance 0 ml Physical Exam General: Alert, Oriented X3, Cooperative, mild distress Lungs: Clear Abdomen: Soft, Other (tubes in place) Extremities: No clubbing, No cyanosis Skin: No rashes, No breakdown Labs Labs: Laboratory Tests Test 07/23/21 04:20 07/23/21 04:45 White Blood Count 6.3 x10^3/uL (4.0-11.0) Red Blood Count 3.54 x10^6/uL (3.50-5.40) Hemoglobin 9.8 g/dL (12.0-15.5) Hematocrit 29.7 % (36.0-47.0) Mean Corpuscular Volume 84 fL (79-100) Mean Corpuscular Hemoglobin 28 pg (25-35) Mean Corpuscular Hemoglobin Concent 33 g/dL (31-37) Red Cell Distribution Width 22.9 % (11.5-14.5) Platelet Count 225 x10^3/uL (140-400) Neutrophils (%) (Auto) 71 % (31-73) Lymphocytes (%) (Auto) 21 % (24-48) Monocytes (%) (Auto) 8 % (0-9) Eosinophils (%) (Auto) 1 % (0-3) Basophils (%) (Auto) 0 % (0-3) Neutrophils # (Auto) 4.4 x10^3/uL (1.8-7.7) Lymphocytes # (Auto) 1.3 x10^3/uL (1.0-4.8) Monocytes # (Auto) 0.5 x10^3/uL (0.0-1.1) Eosinophils # (Auto) 0.1 x10^3/uL (0.0-0.7) Basophils # (Auto) 0.0 x10^3/uL (0.0-0.2) Sodium Level 143 mmol/L (136-145) Potassium Level 3.9 mmol/L (3.5-5.1) Chloride Level 106 mmol/L (98-107) Carbon Dioxide Level 27 mmol/L (21-32) Anion Gap 10 (6-14) Blood Urea Nitrogen 7 mg/dL (7-20) Creatinine 0.5 mg/dL (0.6-1.0) Estimated GFR (Cockcroft-Gault) 152.9 Glucose Level 97 mg/dL (70-99) Calcium Level 8.1 mg/dL (8.5-10.1) Phosphorus Level 3.0 mg/dL (2.6-4.7) Magnesium Level 2.1 mg/dL (1.8-2.4) SARS-CoV-2 Antigen (Rapid) Negative (NEGATIVE) Assessment and Plan Assessmemt and Plan Problems Medical Problems: (1) Intractable abdominal pain Status: Acute Comment Review of Relevant I have reviewed the following items lalo (where applicable) has been applied. Medications: Current Medications Medications (Trade) Dose Ordered Sig/Kel Route PRN Reason Start Time Stop Time Status Last Admin Dose Admin Linezolid/Dextrose 300 ml @ 300 mls/hr Q12HR IV 07/22/21 09:00 07/25/21 23:00 07/22/21 21:18 Ceftriaxone Sodium (Rocephin) 2 gm Q24H IVP 07/22/21 09:00 07/30/21 23:00 07/22/21 09:21 Sodium Chloride 75 meq/Sodium Phosphate 20 mmol/ Potassium Chloride 50 meq/ Magnesium Sulfate 20 meq/ Multivitamins 10 ml/Zinc/Copper/ Manganese/ Selenium 1 ml/ Total Parenteral Nutrition/Amino Acids/Dextrose/ Fat Emulsion Intravenous 1,650 ml @ 126.923 mls/hr TPN CONT IV 07/22/21 22:00 07/23/21 10:59 07/22/21 22:05 Alteplase, Recombinant (Cathflo For Central Catheter Clearance) 1 mg 1X ONCE INT CAT 07/22/21 13:00 07/22/21 13:01 DC 07/22/21 14:05 Justifications for Admission Other Justification Fever ABIGAIL GARCIA MD Jul 23, 2021 07:52
--- NOTE | 2021-07-23 08:52 | PDOC ---
HANNAH VALLE PRESS OPERATOR ASSISTANT 07/23/21 0852: SURGICAL PROGRESS NOTE DATE: 07/23/21 TIME: 08:50 Subjective resting, ongoing pain less tube drainage no emesis, chronic nausea Vital Signs Vital Signs Date Time Temp Pulse Resp B/P (MAP) Pulse Ox O2 Delivery O2 Flow Rate FiO2 07/23/21 07:39 96 Room Air 07/23/21 07:00 98.4 99 18 112/72 (85) 98.4 I&O Intake and Output 07/23/21 06:59 Intake Total 0 ml Balance 0 ml Intake Oral 0 ml # Voids 1 # Bowel Movements 1 General: Alert, Cooperative Abdomen: Soft, Other (tubes in place) Labs Laboratory Tests Test 07/21/21 20:15 07/23/21 04:20 07/23/21 04:45 White Blood Count 7.3 x10^3/uL (4.0-11.0) 6.3 x10^3/uL (4.0-11.0) Red Blood Count 3.75 x10^6/uL (3.50-5.40) 3.54 x10^6/uL (3.50-5.40) Hemoglobin 10.1 g/dL (12.0-15.5) 9.8 g/dL (12.0-15.5) Hematocrit 31.6 % (36.0-47.0) 29.7 % (36.0-47.0) Mean Corpuscular Volume 84 fL (79-100) 84 fL (79-100) Mean Corpuscular Hemoglobin 27 pg (25-35) 28 pg (25-35) Mean Corpuscular Hemoglobin Concent 32 g/dL (31-37) 33 g/dL (31-37) Red Cell Distribution Width 23.3 % (11.5-14.5) 22.9 % (11.5-14.5) Platelet Count 201 x10^3/uL (140-400) 225 x10^3/uL (140-400) Neutrophils (%) (Auto) 64 % (31-73) 71 % (31-73) Lymphocytes (%) (Auto) 26 % (24-48) 21 % (24-48) Monocytes (%) (Auto) 9 % (0-9) 8 % (0-9) Eosinophils (%) (Auto) 1 % (0-3) 1 % (0-3) Basophils (%) (Auto) 1 % (0-3) 0 % (0-3) Neutrophils # (Auto) 4.7 x10^3/uL (1.8-7.7) 4.4 x10^3/uL (1.8-7.7) Lymphocytes # (Auto) 1.9 x10^3/uL (1.0-4.8) 1.3 x10^3/uL (1.0-4.8) Monocytes # (Auto) 0.6 x10^3/uL (0.0-1.1) 0.5 x10^3/uL (0.0-1.1) Eosinophils # (Auto) 0.1 x10^3/uL (0.0-0.7) 0.1 x10^3/uL (0.0-0.7) Basophils # (Auto) 0.0 x10^3/uL (0.0-0.2) 0.0 x10^3/uL (0.0-0.2) Platelet Estimate Adequate (ADEQUATE) Polychromasia Slight Microcytosis Mod Macrocytosis Slight Sodium Level 144 mmol/L (136-145) 143 mmol/L (136-145) Potassium Level 4.3 mmol/L (3.5-5.1) 3.9 mmol/L (3.5-5.1) Chloride Level 105 mmol/L (98-107) 106 mmol/L (98-107) Carbon Dioxide Level 27 mmol/L (21-32) 27 mmol/L (21-32) Anion Gap 12 (6-14) 10 (6-14) Blood Urea Nitrogen 11 mg/dL (7-20) 7 mg/dL (7-20) Creatinine 0.7 mg/dL (0.6-1.0) 0.5 mg/dL (0.6-1.0) Estimated GFR (Cockcroft-Gault) 103.7 152.9 BUN/Creatinine Ratio 16 (6-20) Glucose Level 85 mg/dL (70-99) 97 mg/dL (70-99) Calcium Level 8.3 mg/dL (8.5-10.1) 8.1 mg/dL (8.5-10.1) Total Bilirubin 0.2 mg/dL (0.2-1.0) Aspartate Amino Transf (AST/SGOT) 29 U/L (15-37) Alanine Aminotransferase (ALT/SGPT) 46 U/L (14-59) Alkaline Phosphatase 166 U/L (46-116) Total Protein 7.4 g/dL (6.4-8.2) Albumin 3.8 g/dL (3.4-5.0) Albumin/Globulin Ratio 1.1 (1.0-1.7) Lipase 37 U/L (73-393) Phosphorus Level 3.0 mg/dL (2.6-4.7) Magnesium Level 2.1 mg/dL (1.8-2.4) SARS-CoV-2 Antigen (Rapid) Negative (NEGATIVE) Laboratory Tests Test 07/23/21 04:20 07/23/21 04:45 White Blood Count 6.3 x10^3/uL (4.0-11.0) Red Blood Count 3.54 x10^6/uL (3.50-5.40) Hemoglobin 9.8 g/dL (12.0-15.5) Hematocrit 29.7 % (36.0-47.0) Mean Corpuscular Volume 84 fL (79-100) Mean Corpuscular Hemoglobin 28 pg (25-35) Mean Corpuscular Hemoglobin Concent 33 g/dL (31-37) Red Cell Distribution Width 22.9 % (11.5-14.5) Platelet Count 225 x10^3/uL (140-400) Neutrophils (%) (Auto) 71 % (31-73) Lymphocytes (%) (Auto) 21 % (24-48) Monocytes (%) (Auto) 8 % (0-9) Eosinophils (%) (Auto) 1 % (0-3) Basophils (%) (Auto) 0 % (0-3) Neutrophils # (Auto) 4.4 x10^3/uL (1.8-7.7) Lymphocytes # (Auto) 1.3 x10^3/uL (1.0-4.8) Monocytes # (Auto) 0.5 x10^3/uL (0.0-1.1) Eosinophils # (Auto) 0.1 x10^3/uL (0.0-0.7) Basophils # (Auto) 0.0 x10^3/uL (0.0-0.2) Sodium Level 143 mmol/L (136-145) Potassium Level 3.9 mmol/L (3.5-5.1) Chloride Level 106 mmol/L (98-107) Carbon Dioxide Level 27 mmol/L (21-32) Anion Gap 10 (6-14) Blood Urea Nitrogen 7 mg/dL (7-20) Creatinine 0.5 mg/dL (0.6-1.0) Estimated GFR (Cockcroft-Gault) 152.9 Glucose Level 97 mg/dL (70-99) Calcium Level 8.1 mg/dL (8.5-10.1) Phosphorus Level 3.0 mg/dL (2.6-4.7) Magnesium Level 2.1 mg/dL (1.8-2.4) SARS-CoV-2 Antigen (Rapid) Negative (NEGATIVE) Problem List Problems Medical Problems: (1) Intractable abdominal pain Status: Acute Assessment/Plan chronic pain issues lines working now no general surgery needs, FU in clinic will sign off, please call with questions chart, round 15 min Justicifation of Admission Dx: Justifications for Admission: Justification of Admission Dx: Yes Sepsis: Bacteremia TORIE MILLER MD 07/23/21 1319: SURGICAL PROGRESS NOTE Assessment/Plan Pt seen and examined. Agree with Ms. Valle's note Pt with chronic nausea and abd pain cont supportive care, no surgical plans. HANNAH VALLE APRN Jul 23, 2021 08:52 TORIE MILLER MD Jul 23, 2021 13:19
[2021-07-23] MEDS: cefTRIAXone IV Push 2 GM VIAL. IVP SCH (10:22)
[2021-07-23 11:00] VITALS: BP 129/84
[2021-07-23] MEDS: TPN PER PHARMACY MC PRN (11:11)
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
--- NOTE | 2021-07-23 12:45 | PDOC ---
Infectious Disease Note Subjective: Subjective Pt says feels better no f/n/v/d Vital Signs: Vital Signs Vital Signs Date Time Temp Pulse Resp B/P (MAP) Pulse Ox O2 Delivery O2 Flow Rate FiO2 07/23/21 11:49 96 Room Air 07/23/21 11:00 98.8 94 18 129/84 (99) 98.8 Physical Exam: PHYSICAL EXAM GENERAL: Alert, oriented x 3 female lying in bed, in no distress.smiling HEENT: Normocephalic, atraumatic. Anicteric sclerae. No thrush. Oral mucosa moist. NECK: Supple. LUNGS: Clear. Powered PICC right chest wall clean HEART: S1, S2, No murmurs. ABDOMEN: Nondistended, G-tube and J-tubes present. BS + no Carrillo in place EXTREMITIES: No edema. DERMATOLOGIC: Warm, dry, no generalized rash. NEUROLOGIC: Alert, oriented x 3, grossly nonfocal, anxious. PSYCHIATRIC: calm cooperative, Medications: Inpatient Meds: Medications reviewed. Labs: Lab Laboratory Tests Test 07/23/21 04:20 07/23/21 04:45 White Blood Count 6.3 x10^3/uL (4.0-11.0) Red Blood Count 3.54 x10^6/uL (3.50-5.40) Hemoglobin 9.8 g/dL (12.0-15.5) Hematocrit 29.7 % (36.0-47.0) Mean Corpuscular Volume 84 fL (79-100) Mean Corpuscular Hemoglobin 28 pg (25-35) Mean Corpuscular Hemoglobin Concent 33 g/dL (31-37) Red Cell Distribution Width 22.9 % (11.5-14.5) Platelet Count 225 x10^3/uL (140-400) Neutrophils (%) (Auto) 71 % (31-73) Lymphocytes (%) (Auto) 21 % (24-48) Monocytes (%) (Auto) 8 % (0-9) Eosinophils (%) (Auto) 1 % (0-3) Basophils (%) (Auto) 0 % (0-3) Neutrophils # (Auto) 4.4 x10^3/uL (1.8-7.7) Lymphocytes # (Auto) 1.3 x10^3/uL (1.0-4.8) Monocytes # (Auto) 0.5 x10^3/uL (0.0-1.1) Eosinophils # (Auto) 0.1 x10^3/uL (0.0-0.7) Basophils # (Auto) 0.0 x10^3/uL (0.0-0.2) Sodium Level 143 mmol/L (136-145) Potassium Level 3.9 mmol/L (3.5-5.1) Chloride Level 106 mmol/L (98-107) Carbon Dioxide Level 27 mmol/L (21-32) Anion Gap 10 (6-14) Blood Urea Nitrogen 7 mg/dL (7-20) Creatinine 0.5 mg/dL (0.6-1.0) Estimated GFR (Cockcroft-Gault) 152.9 Glucose Level 97 mg/dL (70-99) Calcium Level 8.1 mg/dL (8.5-10.1) Phosphorus Level 3.0 mg/dL (2.6-4.7) Magnesium Level 2.1 mg/dL (1.8-2.4) SARS-CoV-2 Antigen (Rapid) Negative (NEGATIVE) Objective: Assessment: 1. Abdominal solis acute on chronic 2. Klebsiella pneumonia bacteremia present,1 out of 4 bottles during last hosp 07/15. Repeat blood cultures negative07/17 3. Enterococcus faecium amp resistant UTI last hosp. History of self- catheterization intermittently 4. Acute on chronic abdominal pain History of gastroparesis. G tube , Two J tubes.Mild Irritation. TPN through central line. 5. Hypertension. 6. History of migraines and seizures. 7. History of anxiety and depression. 8. History of urinary retention, status post Carrillo intermittently, urinary tract infection. 9. 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 10. Transaminitis, chronic, on TPN. 11. Chronic abdominal pain. 12. History of multiple J-tube exchanges. 13. HISTORY OF ALLERGIES TO SULFA AND PENICILLIN WITH NAUSEA AND VOMITING AND RASH, has tolerated Rocephin and meropenem. 14. COVID positive May 25 and June 14 admission 15. Status post Port-A-Cath removal May 2021 16. Power PICC placed June 13 last week 17. 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 Continue supportive care. GAYLE RODRIGUEZ MD Jul 23, 2021 12:45
[2021-07-23 15:00] VITALS: BP 124/86
[2021-07-23 19:30] VITALS: BP 111/65
[2021-07-23] MEDS ORDERED: DEXTROSE 70% IV SCH (22:00)
[2021-07-23] MEDS ORDERED: TOTAL PARENTERAL NUTRITION IV SCH (22:00)
[2021-07-23] MEDS ORDERED: [UNRECOGNIZED DRUG - OTHER] IV SCH (22:00)
[2021-07-23] MEDS ORDERED: AMINO ACID IV SCH (22:00)
[2021-07-23 23:43] VITALS: BP 133/77
[2021-07-24] MEDS: HYDROmorphone 2 MG/ML INJ. IVP PRN ×3 (01:58→08:39)
[2021-07-24] MEDS: diphenhydrAMINE 50 MG/ML VIAL IVP PRN ×2 (01:58→09:59)
[2021-07-24 03:43] VITALS: BP 115/70
[2021-07-24 07:00] VITALS: BP 108/68
[2021-07-24 07:47] LABS: CALCIUM 8.5 mg/dL (8.5-10.1); CREATININE 0.5 mg/dL (0.6-1.0); GFR 152.9; MAGNESIUM 2.2 mg/dL (1.8-2.4); PHOSPHORUS 3.2 mg/dL (2.6-4.7)
[2021-07-24] MEDS: cefTRIAXone IV Push 2 GM VIAL. IVP SCH (08:41)
[2021-07-24] MEDS: ONDANSETRON PF 4 MG/2 ML VIAL. IVP PRN (09:59)
[2021-07-24 10:50] VITALS: BP 103/66
--- NOTE | 2021-07-24 11:00 | SNU/HH DC ---
DISCHARGE WITH HOME HEALTH DISCHARGE INFORMATION: Discharge Date: Jul 24, 2021 Final Diagnosis: Problems Medical Problems: (1) Intractable abdominal pain Status: Acute Condition on Discharge: Guarded CODE STATUS: Code Status: Full HOME HEALTH: Face to Face: I certify this patient is under my care and that I, or a nurse practitioner or physician's child care center assistant director working with me, had a face to face encounter that meets the physician face to face encounter requirements with this patient on []. Medical Complications: Other (Gastroparesis, bacteremia, CLA BSI) Chcf For: Admin/Educate Injections, Assess & Educate Safety, Assess/Skilled Observatio, Medication Management, Pain Management RN For Eval/Treatment: Yes Home Health Aide For: Self-care Pt Meets Homebound Status: Poor coordination w/ amb., Psychological condition, Unable to negotiate home POST DISCHARGE ORDERS: Activity Instructions for Disc: No restrictions, Resume previous activity, Activity as tolerated Weight Bearing Status after Di: No restrictions, Full weight bearing, As tolerated Bathing Instructions: No Tub Bath until see DIET AFTER DISCHARGE: NPO Wound/Incision Care: No wound care needed CHECKS AFTER DISCHARGE: Checks after discharge: Check your Temp as needed FOLLOW-UP: Follow up with: PCP within 2 weeks of discharge Follow Up With: Infectious disease as scheduled or as needed TREATMENT/EQUIPMENT ORDERS: Adaptive Equipment Issued: None CERTIFICATION STATEMENT: Certification Statement: Certification Statement: Based on the above finding, I certify that this patient is confined to the home and needs intermittent alf care, physical therapy and/or speech therapy, or continues to need occupational therapy.~ This patient is under my care, and I have initiated the establishment of the plan of care.~ This patient will be followed by myself or a community physician who will periodically review the plan of care. Home Meds Active Scripts Linezolid (Linezolid-D5w) 600 Mg/300 Ml Piggyback, 600 MG IV BID for Enterococcus UTI for 5 Days, #10 EACH Prov:ABIGAIL GARCIA MD 07/20/21 [cefTRIAXone IV Push] 2 GM VIAL No Conflict Check, 2 GM IVP Q24H for Klebsiella bacteremia for 10 Days, #10 EACH Prov:ABIGAIL GARCIA MD 07/20/21 Hydrocodone Bit/Acetaminophen (HYDROCODONE-APAP 7.5-325/15 SOLN ) 15 Ml Solution, 15 ML PO PRN Q6HRS PRN for PAIN, #225 ML 0 Refills Prov:KRISTEN ESPAÑA MD 03/05/21 Scopolamine (TRANSDERM-SCOP) 1 Each Patch.td72, 1 PATCH TP Q3DAYS, #4 PATCH Prov:LEXII CARRANZA DO 02/24/21 [Tpn Per Pharmacy] 1 EACH EACH No Conflict Check, 1 EACH MC PRN DAILY PRN for SEE COMMENTS for 30 Days, #60 Prov:JEFFERSON XAVIER MD 01/25/21 Ondansetron Hcl/Pf (ONDANSETRON HCL 4 MG/2 ML VIAL) 4 Mg/2 Ml Vial, 4 MG IVP PRN Q6HRS PRN for NAUSEA/VOMITING 1ST CHOICE for 30 Days, #90 EACH Prov:JEFFERSON XAVIER MD 11/30/19 Bisacodyl (BISACODYL) 10 Mg Supp.rect, 10 MG MA PRN DAILY PRN for CONSTIPATION, 1sT CHOICE for 30 Days, #30 SUPP.RECT Prov:JEFFERSON XAVIER MD 11/30/19 Reported Medications Diphenhydramine Hcl (BENADRYL) 25 Mg Capsule, 2 CAP PO QHS for N for 30 Days, #60 CAP 0 Refills 07/14/21 Umeclidinium [place] (Incruse Ellipta) 62.5 Mcg Blst.w.dev, 62.5 MCG IH DAILY for ASTHMA 07/14/21 Fluticasone/Salmeterol (ADVAIR 250-50 DISKUS) 1 Each Disk.w.dev, 1 PUFF IH BID for ASTHMA, #3 INHALER 3 Refills 07/14/21 Valproate Sodium (VALPROIC ACID) 500 Mg/10 Ml Solution, 500 MG JT BID for TREMORS/SHAKING, MISC 11/14/20 Metoprolol Tartrate (Metoprolol Tartrate) 75 Mg Tablet, 25 MG PO BID for HEADACHES, TAB 11/14/20 Hyoscyamine Sulfate (LEVBID) 0.375 Mg Tab.er.12h, 0.375 MG JT BID for REFLUX, TAB.SR 11/14/20 Fremanezumab-Vfrm (Ajovy Autoinjector) 225 Mg/1.5 Ml Auto.injct, 225 MG SQ QMONTH for migraine, SYR 05/23/20 Tizanidine Hcl (TIZANIDINE HCL) 2 Mg Capsule, 2 MG JT Q8HRS PRN for MUSCLE SPASMS, CAP 05/23/20 Gabapentin (GABAPENTIN) 600 Mg Tablet, 300 MG JT TID for NEUROGENIC PAIN, TAB 05/21/20 Olopatadine HCl (Olopatadine HCl) 5 Ml Drops, 0.1 % OP PRN DAILY PRN for eye relief, DROP 08/20/19 Albuterol Sulfate (Proair Hfa) 8.5 Gm Hfa.aer.ad, 2 PUFF IH PRN Q4-6HRS PRN for wheezing for 21 Days, #1 INHALER 0 Refills 08/20/19 Ipratropium [place] (IPRATROPIUM BROMIDE) 30 Ml [place], 1 SPRAY NS BID for allergies, SPRAY 08/20/19 Ipratropium/Albuterol Sulfate (DUONEB 0.5-3(2.5) MG/3 ML) 3 Ml Ampul.neb, 3 ML NEB PRN QID PRN for asthma, EACH 08/20/19 Montelukast Sodium (MONTELUKAST SODIUM TABLET ) 10 Mg Tablet, 10 MG PO DAILY PRN for asthma, TAB 0 Refills 08/20/19 Discontinued Reported Medications Midodrine Hcl (MIDODRINE HCL) 5 Mg Tablet, 5 MG SL BID for Ortho Hypo, TAB 05/21/20 Diphenhydramine Hcl (BENADRYL) 25 Mg Capsule, 25 MG IVP QIDPRN PRN for ALLERGIES, CAP 07/14/21 Famotidine (FAMOTIDINE) 40 Mg Tablet, 40 MG IV DAILY for REFLUX, TAB 11/14/20 Discontinued Scripts Azithromycin (AZITHROMYCIN ORAL SUSP) 200 Mg/5 Ml Susp.recon, 2.25 ML PO DAILY, #25 ML 500ml PO x day 1 250ml PO x day 2-5 Disp QS No refills Prov:MELISSA CASIANO DO 06/14/21 Terbinafine Hcl (TERBINAFINE HCL) 30 Gm Cream..g., 1 JUSTYN TP BID, #1 BOX Apply cream twice daily to affected areas for 2 weeks. Prov:COLTON SILVERIO 06/13/21 DESIREE MCCALL MD Jul 24, 2021 11:00
--- NOTE | 2021-07-24 11:51 | NUR ---
SW following. Discussed with RN, discharge order. Clinicals and order faxed to [facility] and [facility]. RN notified.
--- NOTE | 2021-07-24 12:09 | NUR ---
Discharge Note: SUNITHA SCHULTZ Discharge instructions and discharge home medications reviewed with Patient and a copy given. All questions have been answered and understanding verbalized. The following instructions and handouts were given: information about activity, medications, home infusion, NPO, follow up appointments. Discontinued lines and drains: DL PICC line in right chest left in place for antibiotics and termite technician TPN. Patient discharged to home with self care with family member, wheelchair used for mobility to discharge vehicle.
--- NOTE | 2021-07-29 10:41 | PDOC3 ---
[facility]-Discharge Summary Date of Admission: Date of Admission: Jul 22, 2021 Date of Discharge: Date of Discharge: Jul 24, 2021 Discharge Diagnosis: Discharge Diagnosis: Acute on chronic abdominal pain Non-functioning PICC line UTI - enterococcus, POA Gram-negative bacteremia - klebsiella, POA Leaking J-tube and PEG tube sites Complex GI history Multiple GI procedures Psychiatric issues (suspect element of possible Munchhausen's?) Severe gastroparesis G-tube J-tube Recent second J-tube has been removed Pyloroplasty Home TPN Recent sepsis with intubation and respiratory failure Multiple EGDs H pylori GERD Hypertension History of gastroparesis. G tube , Two J tubes.Mild Irritation. TPN through central line. Hypertension. History of migraines and seizures. History of anxiety and depression. History of urinary retention, status post [place] intermittently, urinary tract infection. 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 Transaminitis, chronic, on TPN. H/o COVID positive May 25 and June 14 admission Consults: Consults: Per ID: Plan of Care Continue ceftriaxone and linezolid from DIRECTOR OF NURSING Follow-up repeat blood cultures from July 17, 2021 which are negative SARS COVID neg f/u C diff PCR PICC electric lineman Pain management per primary Continue local care of two J-tubes and G-tube. Continue supportive care. Per Surgery: Assessment/Plan Pt seen and examined. Agree with Ms. Nation's note Pt with chronic nausea and abd pain cont supportive care, no surgical plans. Hospital Course: Hospital Course: 21-year-old female well known to our service from recent admission who presented to the ER c/o worsening acute on chronic abdominal pain, and inability to use her home PICC line. She was recently discharged after diagnosed with Klebsiella pneumonia bacteremia and enteroccal UTI. Was recommended to have line removed and replaced. She opted for line salvage and returns hospital for reconsideration. Historically recently underwent G-tube and G-tube exchange on July 14, 2021. Consults: General surgery, ID 07/23: After nursing Jass dilation of TPA PICC line is nonfunctional. Abdominal pain slightly improved counseled to try pain medications through GI rather than IV. Had some diarrhea C. difficile pending. By day of discharge, pt was clinically stable and ready for discharge. PICC line salvaged with TPA. C diff negative. Pain is well controlled. Rest of hospital course was uneventful Disposition: Disposition/Orders: D/C to Home w/ HH Activity: Activity: Resume previous activity Diet: Diet: NPO Medications: Home Meds Active Scripts Linezolid (Linezolid-D5w) 600 Mg/300 Ml Piggyback, 600 MG IV BID for Enterococcus UTI for 5 Days, #10 EACH Prov:ABIGAIL GARCIA MD 07/20/21 [cefTRIAXone IV Push] 2 GM VIAL No Conflict Check, 2 GM IVP Q24H for Klebsiella bacteremia for 10 Days, #10 EACH Prov:ABIGAIL GARCIA MD 07/20/21 Hydrocodone Bit/Acetaminophen (HYDROCODONE-APAP 7.5-325/15 SOLN ) 15 Ml Solution, 15 ML PO PRN Q6HRS PRN for PAIN, #225 ML 0 Refills Prov:KRISTEN ESPAÑA MD 03/05/21 Scopolamine (TRANSDERM-SCOP) 1 Each Patch.td72, 1 PATCH TP Q3DAYS, #4 PATCH Prov:LEXII CARRANZA DO 02/24/21 [Tpn Per Pharmacy] 1 EACH EACH No Conflict Check, 1 EACH MC PRN DAILY PRN for SEE COMMENTS for 30 Days, #60 Prov:JEFFERSON XAVIER MD 01/25/21 Ondansetron Hcl/Pf (ONDANSETRON HCL 4 MG/2 ML VIAL) 4 Mg/2 Ml Vial, 4 MG IVP PRN Q6HRS PRN for NAUSEA/VOMITING 1ST CHOICE for 30 Days, #90 EACH Prov:JEFFERSON XAVIER MD 11/30/19 Bisacodyl (BISACODYL) 10 Mg Supp.rect, 10 MG [place] PRN DAILY PRN for CONSTIPATION, 1sT CHOICE for 30 Days, #30 SUPP.RECT Prov:JEFFERSON XAVIER MD 11/30/19 Reported Medications Diphenhydramine Hcl (BENADRYL) 25 Mg Capsule, 2 CAP PO QHS for N for 30 Days, #60 CAP 0 Refills 07/14/21 Umeclidinium [place] (Incruse Ellipta) 62.5 Mcg Blst.w.dev, 62.5 MCG IH DAILY for ASTHMA 07/14/21 Fluticasone/Salmeterol (ADVAIR 250-50 DISKUS) 1 Each Disk.w.dev, 1 PUFF IH BID for ASTHMA, #3 INHALER 3 Refills 07/14/21 Valproate Sodium (VALPROIC ACID) 500 Mg/10 Ml Solution, 500 MG JT BID for TREMORS/SHAKING, MISC 11/14/20 Metoprolol Tartrate (Metoprolol Tartrate) 75 Mg Tablet, 25 MG PO BID for HEADACHES, TAB 11/14/20 Hyoscyamine Sulfate (LEVBID) 0.375 Mg Tab.er.12h, 0.375 MG JT BID for REFLUX, TAB.SR 11/14/20 Fremanezumab-Vfrm (Ajovy Autoinjector) 225 Mg/1.5 Ml Auto.injct, 225 MG SQ QMONTH for migraine, SYR 05/23/20 Tizanidine Hcl (TIZANIDINE HCL) 2 Mg Capsule, 2 MG JT Q8HRS PRN for MUSCLE SPASMS, CAP 05/23/20 Gabapentin (GABAPENTIN) 600 Mg Tablet, 300 MG JT TID for NEUROGENIC PAIN, TAB 05/21/20 Olopatadine HCl (Olopatadine HCl) 5 Ml Drops, 0.1 % OP PRN DAILY PRN for eye relief, DROP 08/20/19 Albuterol Sulfate (Proair Hfa) 8.5 Gm Hfa.aer.ad, 2 PUFF IH PRN Q4-6HRS PRN for wheezing for 21 Days, #1 INHALER 0 Refills 08/20/19 Ipratropium [place] (IPRATROPIUM BROMIDE) 30 Ml [place], 1 SPRAY NS BID for allergies, SPRAY 08/20/19 Ipratropium/Albuterol Sulfate (DUONEB 0.5-3(2.5) MG/3 ML) 3 Ml Ampul.neb, 3 ML NEB PRN QID PRN for asthma, EACH 08/20/19 Montelukast Sodium (MONTELUKAST SODIUM TABLET ) 10 Mg Tablet, 10 MG PO DAILY PRN for asthma, TAB 0 Refills 08/20/19 Discontinued Reported Medications Midodrine Hcl (MIDODRINE HCL) 5 Mg Tablet, 5 MG SL BID for Ortho Hypo, TAB 05/21/20 Scheduled Diphenhydramine Hcl (Benadryl), 2 CAP PO QHS, (Reported) Fluticasone/Salmeterol (Advair 250-50 Diskus), 1 PUFF IH BID, (Reported) Fremanezumab-Vfrm (Ajovy Autoinjector), 225 MG SQ QMONTH, (Reported) Gabapentin (Gabapentin), 300 MG JT TID, (Reported) Hyoscyamine Sulfate (Levbid), 0.375 MG JT BID, (Reported) Ipratropium [place] (Ipratropium [place]), 1 SPRAY NS BID, (Reported) Linezolid (Linezolid-D5w), 600 MG IV BID Metoprolol Tartrate (Metoprolol Tartrate), 25 MG PO BID, (Reported) Scopolamine (Transderm-Scop), 1 PATCH TP Q3DAYS Umeclidinium [place] (Incruse Ellipta), 62.5 MCG IH DAILY, (Reported) Valproate Sodium (Valproic Acid), 500 MG JT BID, (Reported) [Ceftriaxone Sodium], 2 GM IVP Q24H Scheduled PRN Albuterol Sulfate (Proair Hfa), 2 PUFF IH PRN Q4-6HRS PRN for wheezing, (Reported) Bisacodyl (Bisacodyl), 10 MG [place] PRN DAILY PRN for CONSTIPATION, 1sT CHOICE Hydrocodone Bit/Acetaminophen (Hydrocodone-Apap 7.5-325/15 Soln ), 15 ML PO PRN Q6HRS PRN for PAIN Ipratropium/Albuterol Sulfate (Duoneb 0.5-3(2.5) Mg/3 Ml), 3 ML NEB PRN QID PRN for asthma, (Reported) Montelukast Sodium (Montelukast Sodium Tablet ), 10 MG PO DAILY PRN for asthma, (Reported) Olopatadine HCl (Olopatadine HCl), 0.1 % OP PRN DAILY PRN for eye relief, (Reported) Ondansetron Hcl/Pf (Ondansetron Hcl 4 Mg/2 Ml Vial), 4 MG IVP PRN Q6HRS PRN for NAUSEA/VOMITING 1ST CHOICE Tizanidine Hcl (Tizanidine Hcl), 2 MG JT Q8HRS PRN for MUSCLE SPASMS, (Reported) [Tpn Per Pharmacy], 1 EACH MC PRN DAILY PRN for SEE COMMENTS Discontinued Medications Midodrine Hcl (Midodrine Hcl), 5 MG SL BID, (Reported) Total Time: Total Time: Total time spent was 34 minutes in preparing scripts and discharge planning with SW and RN. Patient seen and examined on day of Discharge. Justicifation of Admission Dx: Justifications for Admission: Justification of Admission Dx: Yes Sepsis: Bacteremia DESIREE MCCALL MD Jul 29, 2021 10:41
== END 2021-07-24 12:09 | disposition home or self-care (01) | DRG 872 ==
LOC: ER 19:16 → 5 NORTH 07-22 00:50 → 4 NORTH 07-22 16:58
PROVIDERS: ADMIT Internal Medicine; ATTEND Internal Medicine
DX: A41.59 Other Gram-negative sepsis (principal); N39.0 Urinary tract infection, site not specified; Z16.11 Resistance to penicillins; G89.4 Chronic pain syndrome; I10 Essential (primary) hypertension; J45.909 Unspecified asthma, uncomplicated; K21.9 Gastro-esophageal reflux disease without esophagitis; Z86.16 Personal history of COVID-19; F32.A Depression, unspecified; F41.9 Anxiety disorder, unspecified; Z20.822 Contact with and (suspected) exposure to COVID-19; G43.909 Migraine, unspecified, not intractable, without status migrainosus; B95.2 Enterococcus as the cause of diseases classified elsewhere; R19.7 Diarrhea, unspecified; Z88.0 Allergy status to penicillin; Z88.2 Allergy status to sulfonamides; Z90.49 Acquired absence of other specified parts of digestive tract; Z86.14 Personal history of Methicillin resistant Staphylococcus aureus infection
CPT/HCPCS: 36415; 74018; 80048; 80053; 83690; 83735; 84100; 85025; 87426; 87493; 94640; 96361; 96374; 96375; J0696; J1170; J1200; J2020; J2405; J2997; J3475; J3480; J3490; J7030; U0003; 99285-25; G0378

== ENCOUNTER 2021-08-05 07:49 | Inpatient (IN) | payer OTHER, MEDICARE, MEDICAID ==
[~2021-08-05] VITALS: Ht 170.2 cm; Wt 81.6 kg
--- NOTE | 2021-08-05 08:44 | ED.ADGEN ---
Past Medical History Past Medical History: Asthma, DVT, GERD, Hypertension, Migraines, MRSA, Other Additional Past Medical Histor: GASTROPARSIS, INTESTIAL DISMOTILITY, CHRONIC ABD PAIN Past Surgical History: Appendectomy, Cholecystectomy, Tonsillectomy Additional Past Surgical Histo: G TUBES, J TUBES, GJ TUBES Smoking Status: Never Smoker Alcohol Use: None Drug Use: None General Adult EDM: Chief Complaint: GI PROBLEM HPI: HPI: Patient is a 21 year old female coming in for chronic abdominal pain, fever, diarrhea, and feet swelling. Patient states that she was in IR just prior to come to the emergency department to have a cath placed on her J-tube. Patient states that fever started yesterday, T-max 101. Patient states she had 2 weeks of feet swelling and diarrhea. Review of Systems: Review of Systems: All other systems within normal limits except for as noted in the HPI Current Medications: Current Medications Medications (Trade) Dose Ordered Sig/Kel Start Time Stop Time Status Last Admin Dose Admin Acetaminophen (Tylenol Supp) 650 mg 1X ONCE 08/05/21 10:00 08/05/21 10:01 DC 08/05/21 09:54 650 MG Acetaminophen (Tylenol) 1,000 mg 1X ONCE 08/05/21 09:45 08/05/21 09:46 DC Hydromorphone HCl (Dilaudid) 1 mg 1X ONCE 08/05/21 11:30 08/05/21 11:31 DC 08/05/21 11:24 1 MG Info (CONTRAST GIVEN -- Rx MONITORING) 1 each PRN DAILY PRN 08/05/21 10:30 08/07/21 10:29 Iohexol (Omnipaque 300 Mg/ml) 75 ml 1X ONCE 08/05/21 10:30 08/05/21 10:31 DC 08/05/21 10:30 75 ML Sodium Chloride 1,000 ml @ 1,000 mls/hr 1X ONCE 08/05/21 09:45 08/05/21 10:44 DC 08/05/21 09:53 1,000 MLS/HR Allergies: Allergies: Allergies Coded Allergies Type Severity Reaction Last Updated Verified iron Allergy Severe Anaphylaxis 07/31/21 Yes Penicillins Allergy Intermediate LIGHT RASH CHILD 07/31/21 Yes Sulfa (Sulfonamide Antibiotics) Allergy Intermediate 07/31/21 Yes I S O L A T I O N *CONTACT* Allergy Unknown 07/31/21 Yes Physical Exam: PE: Constitutional: Well developed, well nourished, no acute distress, non-toxic appearance. [] HENT: Normocephalic, atraumatic, bilateral external ears normal, nose normal. [] Eyes: PERRLA, conjunctiva normal, no discharge. [] Neck: No rigidity, supple, no stridor. [] Cardiovascular: Regular rate and rhythm, brisk cap refill [] Lungs & Thorax: Non labored symmetric respirations, no tachypnea or respiratory distress [] Abdomen: Soft, nondistended, no guarding. Tubes in place without surrounding erythema. Skin: Warm, dry, no erythema, no rash. [] Back: Unremarkable Extremities: No deformities, range of motion grossly intact, no lower extremity edema [] Neurologic: Alert and oriented X 3, no focal deficits noted. [] Psychologic: Affect normal, judgement normal, mood normal. [] Current Patient Data: Labs: Laboratory Tests Test 08/05/21 08:40 08/05/21 09:00 08/05/21 09:12 White Blood Count 6.2 x10^3/uL (4.0-11.0) Red Blood Count 3.59 x10^6/uL (3.50-5.40) Hemoglobin 10.4 g/dL (12.0-15.5) L Hematocrit 32.0 % (36.0-47.0) L Mean Corpuscular Volume 89 fL (79-100) Mean Corpuscular Hemoglobin 29 pg (25-35) Mean Corpuscular Hemoglobin Concent 33 g/dL (31-37) Red Cell Distribution Width 26.0 % (11.5-14.5) H Platelet Count 107 x10^3/uL (140-400) L Neutrophils (%) (Auto) 80 % (31-73) H Lymphocytes (%) (Auto) 10 % (24-48) L Monocytes (%) (Auto) 9 % (0-9) Eosinophils (%) (Auto) 0 % (0-3) Basophils (%) (Auto) 0 % (0-3) Neutrophils # (Auto) 5.0 x10^3/uL (1.8-7.7) Lymphocytes # (Auto) 0.6 x10^3/uL (1.0-4.8) L Monocytes # (Auto) 0.6 x10^3/uL (0.0-1.1) Eosinophils # (Auto) 0.0 x10^3/uL (0.0-0.7) Basophils # (Auto) 0.0 x10^3/uL (0.0-0.2) Platelet Estimate Decreased (ADEQUATE) Anisocytosis Present Prothrombin Time 14.0 SEC (11.7-14.0) Prothrombin Time INR 1.1 (0.8-1.1) Sodium Level 134 mmol/L (136-145) L Potassium Level 4.1 mmol/L (3.5-5.1) Chloride Level 101 mmol/L (98-107) Carbon Dioxide Level 26 mmol/L (21-32) Anion Gap 7 (6-14) Blood Urea Nitrogen 11 mg/dL (7-20) Creatinine 0.7 mg/dL (0.6-1.0) Estimated GFR (Cockcroft-Gault) 103.7 BUN/Creatinine Ratio 16 (6-20) Glucose Level 108 mg/dL (70-99) H Lactic Acid Level 1.6 mmol/L (0.4-2.0) Calcium Level 8.7 mg/dL (8.5-10.1) Phosphorus Level 2.9 mg/dL (2.6-4.7) Magnesium Level 1.8 mg/dL (1.8-2.4) Total Bilirubin 0.3 mg/dL (0.2-1.0) Aspartate Amino Transferase (AST) 15 U/L (15-37) Alanine Aminotransferase (ALT) 19 U/L (14-59) Alkaline Phosphatase 147 U/L (46-116) H NF-Sei-C-Type Natriuretic Peptide 59 pg/mL (0-124) Total Protein 7.2 g/dL (6.4-8.2) Albumin 3.8 g/dL (3.4-5.0) Albumin/Globulin Ratio 1.1 (1.0-1.7) Lipase 22 U/L (73-393) L Thyroid Stimulating Hormone (TSH) 0.920 uIU/mL (0.358-3.74) Urine Collection Type Unknown Urine Color Yellow Urine Clarity Clear Urine pH 7.5 (<5.0-8.0) Urine Specific [place] 1.020 (1.000-1.030) Urine Protein Negative mg/dL (NEG-TRACE) Urine Glucose (UA) Negative mg/dL (NEG) Urine Ketones (Stick) Negative mg/dL (NEG) Urine Blood Negative (NEG) Urine Nitrite Negative (NEG) Urine Bilirubin Negative (NEG) Urine Urobilinogen Dipstick 0.2 mg/dL (0.2 mg/dL) Urine Leukocyte Esterase Negative (NEG) Urine RBC 0 /HPF (0-2) Urine WBC 0 /HPF (0-4) Urine Squamous Epithelial Cells Few /LPF Urine Bacteria 0 /HPF (0-FEW) POC Urine HCG, Qualitative Hcg negative (Negative) Laboratory Tests 08/05/21 08:40 Laboratory Tests 08/05/21 08:40 Vital Signs: Vital Signs Date Time Temp Pulse Resp B/P (MAP) Pulse Ox O2 Delivery O2 Flow Rate FiO2 08/05/21 11:07 114 104/55 (71) 97 Room Air 08/05/21 08:08 99.5 24 99.5 EKG: EKG: [] Heart Score: C/O Chest Pain: No Risk Factors: Risk Factors: DM, Current or recent (<one month) smoker, HTN, HLP, family history of CAD, obesity. Risk Scores: Score 0 - 3: 2.5% MACE over next 6 weeks - Discharge Home Score 4 - 6: 20.3% MACE over next 6 weeks - Admit for Clinical Observation Score 7 - 10: 72.7% MACE over next 6 weeks - Early Invasive Strategies Radiology/Procedures: Radiology/Procedures: [facility] [address] [place] [address] IMAGING REPORT Signed PATIENT: SUNITHA SCHULTZ ACCOUNT: [id number] : 2000 LOCATION: [address] [place] [address] AGE: 21 SEX: F EXAM STATUS: ADM IN ORD. PHYSICIAN: KASEY GOMEZ MD REASON: abd pain, fever PROCEDURE: CT ABD PELV W/ IV CONTRST ONLY CT ABDOMEN+PELVIS W History: Abdominal pain, fever. Comparison: CT abdomen pelvis 06/16/2021. Technique: CT of the abdomen and pelvis with intravenous contrast. Findings: Lung bases are clear. Elongated left hepatic lobe, no focal liver lesion. Status post cholecystectomy. No biliary ductal dilatation. The pancreas and adrenal glands are unremarkable. Punctate calcifications in the spleen consistent with granulomatous disease. The kidneys are unremarkable. Distal esophagus is within normal limits. There is a percutaneous gastrostomy t ube in expected position. The small bowel is normal caliber. There is a right lower abdomen percutaneous jejunostomy. The prior left-sided percutaneous jejunostomy has been removed. No small bowel wall thickening. Mild colonic stool burden. No pericolonic inflammatory changes. The bladder is within normal limits. There are bilateral prominent ovaries measuring approximately 5.6 x 3.7 cm on the left and 4.7 x 2.6 cm on the right. No intra-abdominal free air or free fluid. The vasculature is unremarkable. No adenopathy. Surgical changes of the anterior abdominal wall. Soft tissues otherwise unremarkable. Osseous structures are within normal limits. Impression: 1. Expected appearance of percutaneous gastrostomy and jejunostomy tubes without evidence of complication. No abscess or free air identified. 2. Prominent bilateral ovaries may represent follicular activity or cysts. Consider pelvic ultrasound if there are symptoms referring to the pelvis. ------ Exposure: One or more of the following individualized dose reduction techniques were utilized for this examination: 1. Automated exposure control 2. Adjustment of the mA and/or kV according to patient size 3. Use of iterative reconstruction technique. Electronically signed by: Waylon Walker MD (08/05/2021 12:42 PM) [id number] DICTATED and SIGNED BY: WAYLON WALKER MD DATE: 08/05/21 1231 [] Course & Med Decision Making: Course & Med Decision Making Pertinent Labs and Imaging studies reviewed. (See chart for details) Patient with fevers and sustained tachycardia. Will admit for blood cultures and antibiotics due to recent history of bacteremia. [] Dragon Disclaimer: Dragon Disclaimer: This electronic medical record was generated, in whole or in part, using a voice recognition dictation system. Departure Departure Referrals: ARASH YUN NP (PCP) KASEY GOMEZ MD Aug 05, 2021 08:44
[2021-08-05] MEDS ORDERED: HYDROmorphone 2 MG/ML INJ. IVP ONE ×2 (08:45→11:30)
[2021-08-05 08:56] LABS: BASO % 0 % (0-3); EOS % 0 % (0-3); HEMOGLOBIN 10.4 g/dL (12.0-15.5); LYMPH # 0.6 x10^3/uL (1.0-4.8); LYMPH % 10 % (24-48); MEAN CORPUSCULAR HEMOGLOBIN 29 pg (25-35); MEAN CORPUSCULAR HGB CONC 33 g/dL (31-37); MEAN CORPUSCULAR VOLUME 89 fL (79-100); MONO # 0.6 x10^3/uL (0.0-1.1); MONO % 9 % (0-9); NEUT % 80 % (31-73); PLATELET COUNT 107 x10^3/uL (140-400); RED BLOOD COUNT 3.59 x10^6/uL (3.50-5.40); WHITE BLOOD COUNT 6.2 x10^3/uL (4.0-11.0)
[2021-08-05 09:13] LABS: CALCIUM 8.7 mg/dL (8.5-10.1); CREATININE 0.7 mg/dL (0.6-1.0); GFR 103.7; POTASSIUM 4.1 mmol/L (3.5-5.1)
[2021-08-05 09:24] LABS: ALBUMIN 3.8 g/dL (3.4-5.0); ALBUMIN/GLOBULIN RATIO 1.1 (1.0-1.7); MAGNESIUM 1.8 mg/dL (1.8-2.4); PHOSPHORUS 2.9 mg/dL (2.6-4.7); TOTAL BILIRUBIN 0.3 mg/dL (0.2-1.0); TOTAL PROTEIN 7.2 g/dL (6.4-8.2)
[2021-08-05 09:44] LABS: BILIRUBIN,URINE NEGATIVE (NEG); CLARITY,URINE CLEAR; COLOR,URINE YELLOW; NITRITE,URINE NEGATIVE (NEG); PH,URINE 7.5 (<5.0-8.0); PROTEIN,URINE NEGATIVE (NEG-TRACE); UROBILINOGEN,URINE 0.2 mg/dL (0.2 mg/dL)
[2021-08-05 09:45] LABS: BACTERIA,URINE 0 /HPF (0-FEW); RBC,URINE 0 /HPF (0-2); WBC,URINE 0 /HPF (0-4)
[2021-08-05] MEDS ORDERED: IV NORMAL SALINE 1000ML BAG 1,000 ML IV ONE (09:45)
[2021-08-05] MEDS ORDERED: ACETAMINOPHEN 500 MG TABLET PO ONE (09:45)
[2021-08-05] MEDS ORDERED: ACETAMINOPHEN 650 MG SUPP.RECT. PR ONE (10:00)
[2021-08-05] MEDS ORDERED: CONTRAST GIVEN. MC PRN (10:30)
[2021-08-05] MEDS ORDERED: IOHEXOL 300 MG/ML 100ML VIAL. IV ONE (10:30)
[2021-08-05 11:43] LABS: ANISOCYTOSIS PRESENT; PLT ESTIMATE DECREASED (ADEQUATE)
[2021-08-05] MEDS ORDERED: ACETAMINOPHEN 325 MG TABLET. PO PRN (12:30)
[2021-08-05] MEDS ORDERED: ONDANSETRON PF 4 MG/2 ML VIAL. IVP PRN ×2 (12:30→22:00)
--- NOTE | 2021-08-05 12:44 | RAD ---
CT ABDOMEN+PELVIS W History: Abdominal pain, fever. Comparison: CT abdomen pelvis 06/16/2021. Technique: CT of the abdomen and pelvis with intravenous contrast. Findings: Lung bases are clear. Elongated left hepatic lobe, no focal liver lesion. Status post cholecystectomy . No biliary ductal dilatation. The pancreas and adrenal glands are unremarkable. Punctate calcificat ions in the spleen consistent with granulomatous disease. The kidneys are unremarkable. Distal esophagus is within normal limits. There is a percutaneous gastrostomy tube in expected positi on. The small bowel is normal caliber. There is a right lower abdomen percutaneous jejunostomy. The p rior left-sided percutaneous jejunostomy has been removed. No small bowel wall thickening. Mild colon ic stool burden. No pericolonic inflammatory changes. The bladder is within normal limits. There are bilateral prominent ovaries measuring approximately 5. 6 x 3.7 cm on the left and 4.7 x 2.6 cm on the right. No intra-abdominal free air or free fluid. The vasculature is unremarkable. No adenopathy. Surgical c hanges of the anterior abdominal wall. Soft tissues otherwise unremarkable. Osseous structures are wi thin normal limits. Impression: 1. Expected appearance of percutaneous gastrostomy and jejunostomy tubes without evidence of complic ation. No abscess or free air identified. 2. Prominent bilateral ovaries may represent follicular activity or cysts. Consider pelvic ultrasoun d if there are symptoms referring to the pelvis. ------ Exposure: One or more of the following individualized dose reduction techniques were utilized for thi s examination: 1. Automated exposure control 2. Adjustment of the mA and/or kV according to patient size 3. Use of iterative reconstruction technique. Electronically signed by: Waylon Koroma MD (08/05/2021 12:42 PM) [id number]
[2021-08-05 13:05] VITALS: BP 121/70
--- NOTE | 2021-08-05 13:22 | PDOC ---
Infectious Disease Note Subjective Subjective Patient is known to us. Recently discharged from the hospital and now returns with fever and abdominal pain. Abdominal CT unremarkable. Blood cultures are pending. Patient denies any nausea vomiting denies any chest pain shortness of breath urinary symptoms bowel symptoms headache or visual symptoms. ROS ROS As above. Vital Sign Vital Signs Vital Signs Date Time Temp Pulse Resp B/P (MAP) Pulse Ox O2 Delivery O2 Flow Rate FiO2 08/05/21 13:05 97.7 121 20 121/70 (87) 97 Room Air 97.7 Physical Exam PHYSICAL EXAM PE VSS GENERAL: Alert, oriented x 3 female lying in bed, in no distress.smiling HEENT: Normocephalic, atraumatic. Anicteric sclerae. No thrush. Oral mucosa moist. NECK: Supple. LUNGS: Clear. Powered PICC right chest wall clean HEART: S1, S2, No murmurs. ABDOMEN: Nondistended, G-tube and J-tubes present. BS + no Carrillo in place EXTREMITIES: No edema. DERMATOLOGIC: Warm, dry, no generalized rash. NEUROLOGIC: Alert, oriented x 3, grossly nonfocal, anxious. PSYCHIATRIC: calm cooperative, Medications: Inpatient Meds: Medications reviewed. Labs: reviewed Labs Lab Laboratory Tests Test 08/05/21 08:40 08/05/21 09:00 08/05/21 09:12 White Blood Count 6.2 x10^3/uL (4.0-11.0) Red Blood Count 3.59 x10^6/uL (3.50-5.40) Hemoglobin 10.4 g/dL (12.0-15.5) Hematocrit 32.0 % (36.0-47.0) Mean Corpuscular Volume 89 fL (79-100) Mean Corpuscular Hemoglobin 29 pg (25-35) Mean Corpuscular Hemoglobin Concent 33 g/dL (31-37) Red Cell Distribution Width 26.0 % (11.5-14.5) Platelet Count 107 x10^3/uL (140-400) Neutrophils (%) (Auto) 80 % (31-73) Lymphocytes (%) (Auto) 10 % (24-48) Monocytes (%) (Auto) 9 % (0-9) Eosinophils (%) (Auto) 0 % (0-3) Basophils (%) (Auto) 0 % (0-3) Neutrophils # (Auto) 5.0 x10^3/uL (1.8-7.7) Lymphocytes # (Auto) 0.6 x10^3/uL (1.0-4.8) Monocytes # (Auto) 0.6 x10^3/uL (0.0-1.1) Eosinophils # (Auto) 0.0 x10^3/uL (0.0-0.7) Basophils # (Auto) 0.0 x10^3/uL (0.0-0.2) Platelet Estimate Decreased (ADEQUATE) Anisocytosis Present Prothrombin Time 14.0 SEC (11.7-14.0) Prothromb Time International Ratio 1.1 (0.8-1.1) Sodium Level 134 mmol/L (136-145) Potassium Level 4.1 mmol/L (3.5-5.1) Chloride Level 101 mmol/L (98-107) Carbon Dioxide Level 26 mmol/L (21-32) Anion Gap 7 (6-14) Blood Urea Nitrogen 11 mg/dL (7-20) Creatinine 0.7 mg/dL (0.6-1.0) Estimated GFR (Cockcroft-Gault) 103.7 BUN/Creatinine Ratio 16 (6-20) Glucose Level 108 mg/dL (70-99) Lactic Acid Level 1.6 mmol/L (0.4-2.0) Calcium Level 8.7 mg/dL (8.5-10.1) Phosphorus Level 2.9 mg/dL (2.6-4.7) Magnesium Level 1.8 mg/dL (1.8-2.4) Total Bilirubin 0.3 mg/dL (0.2-1.0) Aspartate Amino Transf (AST/SGOT) 15 U/L (15-37) Alanine Aminotransferase (ALT/SGPT) 19 U/L (14-59) Alkaline Phosphatase 147 U/L (46-116) DK-Wqh-V-Type Natriuretic Peptide 59 pg/mL (0-124) Total Protein 7.2 g/dL (6.4-8.2) Albumin 3.8 g/dL (3.4-5.0) Albumin/Globulin Ratio 1.1 (1.0-1.7) Lipase 22 U/L (73-393) Thyroid Stimulating Hormone (TSH) 0.920 uIU/mL (0.358-3.74) Urine Collection Type Unknown Urine Color Yellow Urine Clarity Clear Urine pH 7.5 (<5.0-8.0) Urine Specific Zullinger 1.020 (1.000-1.030) Urine Protein Negative mg/dL (NEG-TRACE) Urine Glucose (UA) Negative mg/dL (NEG) Urine Ketones (Stick) Negative mg/dL (NEG) Urine Blood Negative (NEG) Urine Nitrite Negative (NEG) Urine Bilirubin Negative (NEG) Urine Urobilinogen Dipstick 0.2 mg/dL (0.2 mg/dL) Urine Leukocyte Esterase Negative (NEG) Urine RBC 0 /HPF (0-2) Urine WBC 0 /HPF (0-4) Urine Squamous Epithelial Cells Few /LPF Urine Bacteria 0 /HPF (0-FEW) Bedside Urine HCG, Qualitative Hcg negative (Negative) Objective Assessment Assessment: 1. Abdominal pain acute on chronic 2. Recent Klebsiella pneumonia bacteremia present,1 out of 4 bottles present on admission. Repeat blood cultures negative 3. Recent Enterococcus faecium amp resistant UTI. History of self- catheterization intermittently 4. Acute on chronic abdominal pain History of gastroparesis. G tube , Two J tubes.Mild Irritation. TPN through central line. 5. Hypertension. 6. History of migraines and seizures. 7. History of anxiety and depression. 8. History of urinary retention, status post Carrillo intermittently, urinary tract infection. 9. 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 10. Transaminitis, chronic, on TPN. 11. Chronic abdominal pain. 12. History of multiple J-tube exchanges. 13. HISTORY OF ALLERGIES TO SULFA AND PENICILLIN WITH NAUSEA AND VOMITING AND RASH, has tolerated Rocephin and meropenem. 14. COVID positive May 25 and June 14 admission 15. Status post Port-A-Cath removal May 2021 16. Power PICC placed June 13 last week 17. Diarrhea Plan Plan of Care Plan : Blood cultures have been obtained. Start daptomycin and cefepime empiric. 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 Continue supportive care. ISAAC RODRIGUEZ MD Aug 05, 2021 13:22
[2021-08-05] MEDS: HYDROmorphone 2 MG/ML INJ. IVP PRN ×5 (13:43→22:11)
[2021-08-05] MEDS: IV NORMAL SALINE 1000ML BAG 1,000 ML IV SCH (13:43)
--- NOTE | 2021-08-05 14:01 | HP ---
DATE OF SERVICE: 08/05/2021 ADMIT DATE: 08/05/2021 CHIEF COMPLAINT: Abdominal pain, feet swelling, diarrhea, subjective fever. HISTORY OF PRESENT ILLNESS: The patient is a pleasant 21-year-old female with multiple medical issues. She has a complex GI history and she has had up to 3 intestinal tubes, 2 J tubes and 1 PEG tube within the past year. Currently, she has got one J tube removed, so she still has a PEG tube and a J tube. She also has a port on the right, basically presented with nausea, vomiting, abdominal pain, subjective fever and some swelling. She has a history of becoming septic. I discussed the case with ER physician. We are going to admit the patient and I gave her IV antibiotics and consult Infectious Disease. PAST MEDICAL HISTORY: 1. Chronic severe gastroparesis with multiple tubes. She has had up to 3 G tubes and J tubes within the past year or so. 2. Chronic malnutrition. She is on TPN at home. 3. Asthma, DVT, GERD, hypertension, migraines, MRSA, intestinal dysmotility, appendectomy, cholecystectomy, numerous J tubes and G-tubes, tonsillectomy. ALLERGIES: PENICILLIN, SULFA, AND IRON. FAMILY HISTORY: Hypertension. SOCIAL HISTORY: She lives at home with her mom. Does not drink, smoke or take drugs. 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 MEDICATIONS: Reviewed, please refer to the MRAD. REVIEW OF SYSTEMS: GENERAL: She complains of intermittent fevers. SKIN: No bruising, hair changes or rashes. EYES: No blurred, double or loss of vision. NOSE AND THROAT: No history of nosebleeds, hoarseness or sore throat. HEART: No history of palpitations, chest pain or shortness of breath on exertion. LUNGS: Denies cough, hemoptysis, wheezing or shortness of breath. GASTROINTESTINAL: She complains of abdominal pain and diarrhea. GENITOURINARY: No history of frequency, urgency, hesitancy or nocturia. NEUROLOGIC: Denies history of numbness, tingling, tremor or weakness. PSYCHIATRIC: No history of panic, anxiety or depression. ENDOCRINE: No history of heat or cold intolerance, polyuria or polydipsia. EXTREMITIES: She complains of feet swelling. LABORATORY DATA: White count 6, hemoglobin 10.4, platelets 107. Electrolytes are normal other than a sodium of 134. INR is 1.1. Urinalysis negative. CT of the abdomen shows the G tube and the J tubes. No abscesses. Ovarian cyst. ASSESSMENT AND PLAN: Subjective fevers, abdominal pain, swelling, diarrhea, weakness in a middle-aged female with the above noted comorbidities. In the past, this has been her preemptive symptoms, becoming septic, so we are going to go ahead and start empiric IV antibiotics. We consulted Infectious Disease. Blood cultures have been ordered. Trend labs. Home meds if possible. DVT prophylaxis. Full code. Long-term prognosis is guarded. JOSE ALEJANDRO DR: Abdon TID: [id number]
[2021-08-05 14:52] VITALS: BP 124/69
[2021-08-05] MEDS: DAPTOmycin (GENERIC) IVPB 490 MG in IV NORMAL SALINE 50ML 50 ML IV SCH (15:03)
[2021-08-05 15:37] LABS: INFLUENZA A PATIENT NEGATIVE (NEGATIVE); INFLUENZA B PATIENT NEGATIVE (NEGATIVE)
[2021-08-05 19:00] VITALS: BP 119/70
[2021-08-05] MEDS: CEFEPIME HCL IV Push 2 GM VIAL. IVP SCH (20:09)
[2021-08-05] MEDS: ONDANSETRON PF 4 MG/2 ML VIAL. IVP PRN (22:10)
[2021-08-05] MEDS: diphenhydrAMINE 50 MG/ML VIAL IVP PRN (22:11)
[2021-08-05 23:00] VITALS: BP 115/55
[2021-08-06] MEDS: HYDROmorphone 2 MG/ML INJ. IVP PRN ×12 (00:13→22:28)
--- NOTE | 2021-08-06 00:23 | NUR ---
Pt with complaints of being cold in the room. Turned the thermostat up and pt requested warm towels behind her neck and on her face. Pt given warm towels. Pt complained approximately 1 hour later of being too hot and HR elevated. Pt placed on O2 nasal cannula since appeared to be having a possible panic attack. Pt also given ice pack for her neck and turned thermostat back down and gave her a fan. Will continue to monitor at this time. No temperature noted and bp within normal limits.
[2021-08-06] MEDS: IV NORMAL SALINE 1000ML BAG 1,000 ML IV SCH ×2 (03:56→17:30)
[2021-08-06] MEDS: ONDANSETRON PF 4 MG/2 ML VIAL. IVP PRN ×3 (04:04→18:05)
[2021-08-06] MEDS: diphenhydrAMINE 50 MG/ML VIAL IVP PRN ×3 (04:04→18:05)
[2021-08-06 04:49] LABS: BASO % 0 % (0-3); EOS % 0 % (0-3); HEMATOCRIT 28.1 % (36.0-47.0); HEMOGLOBIN 9.6 g/dL (12.0-15.5); LYMPH # 0.3 x10^3/uL (1.0-4.8); LYMPH % 6 % (24-48); MEAN CORPUSCULAR HEMOGLOBIN 30 pg (25-35); MEAN CORPUSCULAR HGB CONC 34 g/dL (31-37); MEAN CORPUSCULAR VOLUME 89 fL (79-100); MONO # 0.3 x10^3/uL (0.0-1.1); MONO % 7 % (0-9); NEUT # 3.8 x10^3/uL (1.8-7.7); NEUT % 86 % (31-73); PLATELET COUNT 64 x10^3/uL (140-400); RED BLOOD COUNT 3.17 x10^6/uL (3.50-5.40); RED CELL DISTRIBUTION WIDTH 26.3 % (11.5-14.5); WHITE BLOOD COUNT 4.4 x10^3/uL (4.0-11.0)
[2021-08-06 05:46] LABS: ALBUMIN 3.2 g/dL (3.4-5.0); ALBUMIN/GLOBULIN RATIO 1.3 (1.0-1.7); CALCIUM 7.6 mg/dL (8.5-10.1); CREATININE 0.6 mg/dL (0.6-1.0); GFR 123.9; POTASSIUM 3.3 mmol/L (3.5-5.1); TOTAL BILIRUBIN 0.4 mg/dL (0.2-1.0); TOTAL PROTEIN 5.7 g/dL (6.4-8.2)
[2021-08-06 07:00] VITALS: BP 102/62
[2021-08-06] MEDS: CEFEPIME HCL IV Push 2 GM VIAL. IVP SCH ×2 (08:13→22:19)
--- NOTE | 2021-08-06 10:14 | NUR ---
SW following. Discussed with RN, pt from home with family, [facility] and [facility]. ID following, pt has positive blood cultures. Rapid COVID-19 negative. SW will continue to follow.
--- NOTE | 2021-08-06 10:42 | PDOC ---
[employer] PROGRESS NOTE Date of Service DOS: DATE: 08/06/21 TIME: 10:40 Chief Complaint Chief Complaint Subjective fevers, abdominal pain, swelling, diarrhea, weakness in a middle-aged female with the above noted comorbidities. Gram Negative Steven bacteremia In the past, this has been her preemptive symptoms, becoming septic, so we are going to go ahead and start empiric IV antibiotics. We consulted Infectious Disease. Blood cultures have been ordered. Trend labs. Home meds if possible. DVT prophylaxis. Full code. Long-term prognosis is guarded. History of Present Illness History of Present Illness 08/06 Evaluated examined at bedside. Resting in bed states she was feeling pretty tired and lethargic. Alert and oriented. 4 4 bottles positive for gram- negative rods. Continue current antibiotics. Guessing her line will need to come out. Discussed with bedside RN. Vitals/I&O Vitals/I&O: Vital Signs Date Time Temp Pulse Resp B/P (MAP) Pulse Ox O2 Delivery O2 Flow Rate FiO2 08/06/21 10:18 99 Room Air 4.0 08/06/21 07:00 97.7 100 18 102/62 (75) 97.7 I & O 08/05/21 08/05/21 08/06/21 15:00 23:00 07:00 Intake Total 1000 ml 100 ml 100 ml Balance 1000 ml 100 ml 100 ml Physical Exam Physical Exam: PE VSS GENERAL: Alert, oriented x 3 female lying in bed, in no distress.smiling HEENT: Normocephalic, atraumatic. Anicteric sclerae. No thrush. Oral mucosa moist. NECK: Supple. LUNGS: Clear. Powered PICC right chest wall clean HEART: S1, S2, No murmurs. ABDOMEN: Nondistended, G-tube and J-tubes present. BS + no Carrillo in place EXTREMITIES: No edema. DERMATOLOGIC: Warm, dry, no generalized rash. NEUROLOGIC: Alert, oriented x 3, grossly nonfocal, anxious. PSYCHIATRIC: calm cooperative, Medications: Inpatient Meds: Medications reviewed. Labs: reviewed Lungs: Clear Labs Labs: Laboratory Tests Test 08/05/21 14:58 08/06/21 04:00 Influenza Type A Antigen Negative (NEGATIVE) Influenza Type B Antigen Negative (NEGATIVE) SARS-CoV-2 Antigen (Rapid) Negative (NEGATIVE) White Blood Count 4.4 x10^3/uL (4.0-11.0) Red Blood Count 3.17 x10^6/uL (3.50-5.40) Hemoglobin 9.6 g/dL (12.0-15.5) Hematocrit 28.1 % (36.0-47.0) Mean Corpuscular Volume 89 fL (79-100) Mean Corpuscular Hemoglobin 30 pg (25-35) Mean Corpuscular Hemoglobin Concent 34 g/dL (31-37) Red Cell Distribution Width 26.3 % (11.5-14.5) Platelet Count 64 x10^3/uL (140-400) Neutrophils (%) (Auto) 86 % (31-73) Lymphocytes (%) (Auto) 6 % (24-48) Monocytes (%) (Auto) 7 % (0-9) Eosinophils (%) (Auto) 0 % (0-3) Basophils (%) (Auto) 0 % (0-3) Neutrophils # (Auto) 3.8 x10^3/uL (1.8-7.7) Lymphocytes # (Auto) 0.3 x10^3/uL (1.0-4.8) Monocytes # (Auto) 0.3 x10^3/uL (0.0-1.1) Eosinophils # (Auto) 0.0 x10^3/uL (0.0-0.7) Basophils # (Auto) 0.0 x10^3/uL (0.0-0.2) Sodium Level 139 mmol/L (136-145) Potassium Level 3.3 mmol/L (3.5-5.1) Chloride Level 104 mmol/L (98-107) Carbon Dioxide Level 24 mmol/L (21-32) Anion Gap 11 (6-14) Blood Urea Nitrogen 6 mg/dL (7-20) Creatinine 0.6 mg/dL (0.6-1.0) Estimated GFR (Cockcroft-Gault) 123.9 BUN/Creatinine Ratio 10 (6-20) Glucose Level 106 mg/dL (70-99) Calcium Level 7.6 mg/dL (8.5-10.1) Total Bilirubin 0.4 mg/dL (0.2-1.0) Aspartate Amino Transf (AST/SGOT) 31 U/L (15-37) Alanine Aminotransferase (ALT/SGPT) 28 U/L (14-59) Alkaline Phosphatase 138 U/L (46-116) Total Protein 5.7 g/dL (6.4-8.2) Albumin 3.2 g/dL (3.4-5.0) Albumin/Globulin Ratio 1.3 (1.0-1.7) Comment Review of Relevant I have reviewed the following items lalo (where applicable) has been applied. Medications: Current Medications Medications (Trade) Dose Ordered Sig/Kel Route PRN Reason Start Time Stop Time Status Last Admin Dose Admin Hydromorphone HCl (Dilaudid) 1 mg 1X ONCE IVP 08/05/21 11:30 08/05/21 11:31 DC 08/05/21 11:24 Hydromorphone HCl (Dilaudid) 1 mg PRN Q2HRS PRN IVP MODERATE TO SEVERE PAIN 08/05/21 12:30 08/06/21 10:18 Cefepime HCl (Maxipime) 2 gm Q12HR IVP 08/05/21 21:00 08/06/21 08:13 Daptomycin 490 mg/ Sodium Chloride 50 ml @ 100 mls/hr Q24H IV 08/05/21 14:30 08/05/21 15:03 Sodium Chloride 1,000 ml @ 75 mls/hr [id number] IV 08/05/21 13:45 08/06/21 03:56 Diphenhydramine HCl (Benadryl) 25 mg PRN Q6HRS PRN IVP ITCHING 08/05/21 22:00 08/06/21 04:04 Ondansetron HCl (Zofran) 8 mg PRN Q6HRS PRN IVP NAUSEA/VOMITING 08/05/21 22:00 08/06/21 04:04 Justifications for Admission Other Justification Fever ABIGAIL BRIZUELA MD Aug 06, 2021 10:42
[2021-08-06] MEDS: TPN PER PHARMACY MC PRN (10:50)
[2021-08-06 10:51] VITALS: BP 104/68
--- NOTE | 2021-08-06 10:56 | NUR ---
Pharmacy TPN Dosing Note S: SUNITHA SCHULTZ is a 21 year old F Currently receiving Central Cyclic TPN started 08/06/21 B:Pertinent PMH: complicated gi history Height: 5 feet, 7 inches Weight: 81.392163 kg Current diet: npo LABS: Sodium: 139 Potassium: 3.3 Chloride: 104 Calcium: 7.6 Corrected Calcium: 8.24 Magnesium: 1.8 CO2: 24 SCr: 0.6 Glucose: 106 Albumin: 3.2 AST: 31 ALT: 28 TPN FORMULA: TPN TYPE: Central Cyclic AMINO ACIDS: 82 gm DEXTROSE: 165 gm LIPIDS: 20 gm SODIUM CHLORIDE: 75 mEq SODIUM ACETATE: mEq SODIUM PHOSPHATE: mmol POTASSIUM CHLORIDE: 50 mEq POTASSIUM ACETATE: mEq POTASSIUM PHOSPHATE: mmol MAGNESIUM: 28 mEq CALCIUM: 13 mEq INSULIN: units MULTIPLE VITAMIN: 10 ml TRACE ELEMENTS: 1ml ml(s) TPN PLAN: Continue patient's home tpn from [facility] with the following changes: -Change 3x/week lipids to equivalent daily dose To run over 12 hours. 1 hr titrate up, 1 hr titrate down R: Begin TPN as ordered. Will monitor electrolytes, glucose, and tolerance to TPN. ELSA FRIEDMAN, [facility], 08/06/21 [id number]
[2021-08-06] MEDS: DAPTOmycin (GENERIC) IVPB 490 MG in IV NORMAL SALINE 50ML 50 ML IV SCH (13:06)
[2021-08-06] MEDS ORDERED: OLAN5TAB3 PO (14:33)
--- NOTE | 2021-08-06 14:36 | PDOC ---
Infectious Disease Note Subjective Subjective pt is feeling ok, ROS ROS no n/v/d/sob/fever Vital Sign Vital Signs Vital Signs Date Time Temp Pulse Resp B/P (MAP) Pulse Ox O2 Delivery O2 Flow Rate FiO2 08/06/21 14:19 99 Nasal Cannula 4.0 08/06/21 10:51 98.3 99 18 104/68 (80) 98.3 Physical Exam PHYSICAL EXAM PE VSS GENERAL: Alert, oriented x 3 female lying in bed, in no distress.smiling HEENT: Normocephalic, atraumatic. Anicteric sclerae. No thrush. Oral mucosa moist. NECK: Supple. LUNGS: Clear. Powered PICC right chest wall clean HEART: S1, S2, No murmurs. ABDOMEN: Nondistended, G-tube and J-tubes present. BS + no Carrillo in place EXTREMITIES: No edema. DERMATOLOGIC: Warm, dry, no generalized rash. NEUROLOGIC: Alert, oriented x 3, grossly nonfocal, anxious. PSYCHIATRIC: calm cooperative, Medications: Inpatient Meds: Medications reviewed. Labs: reviewed Labs Lab Laboratory Tests Test 08/05/21 14:58 08/06/21 04:00 Influenza Type A Antigen Negative (NEGATIVE) Influenza Type B Antigen Negative (NEGATIVE) SARS-CoV-2 Antigen (Rapid) Negative (NEGATIVE) White Blood Count 4.4 x10^3/uL (4.0-11.0) Red Blood Count 3.17 x10^6/uL (3.50-5.40) Hemoglobin 9.6 g/dL (12.0-15.5) Hematocrit 28.1 % (36.0-47.0) Mean Corpuscular Volume 89 fL (79-100) Mean Corpuscular Hemoglobin 30 pg (25-35) Mean Corpuscular Hemoglobin Concent 34 g/dL (31-37) Red Cell Distribution Width 26.3 % (11.5-14.5) Platelet Count 64 x10^3/uL (140-400) Neutrophils (%) (Auto) 86 % (31-73) Lymphocytes (%) (Auto) 6 % (24-48) Monocytes (%) (Auto) 7 % (0-9) Eosinophils (%) (Auto) 0 % (0-3) Basophils (%) (Auto) 0 % (0-3) Neutrophils # (Auto) 3.8 x10^3/uL (1.8-7.7) Lymphocytes # (Auto) 0.3 x10^3/uL (1.0-4.8) Monocytes # (Auto) 0.3 x10^3/uL (0.0-1.1) Eosinophils # (Auto) 0.0 x10^3/uL (0.0-0.7) Basophils # (Auto) 0.0 x10^3/uL (0.0-0.2) Sodium Level 139 mmol/L (136-145) Potassium Level 3.3 mmol/L (3.5-5.1) Chloride Level 104 mmol/L (98-107) Carbon Dioxide Level 24 mmol/L (21-32) Anion Gap 11 (6-14) Blood Urea Nitrogen 6 mg/dL (7-20) Creatinine 0.6 mg/dL (0.6-1.0) Estimated GFR (Cockcroft-Gault) 123.9 BUN/Creatinine Ratio 10 (6-20) Glucose Level 106 mg/dL (70-99) Calcium Level 7.6 mg/dL (8.5-10.1) Total Bilirubin 0.4 mg/dL (0.2-1.0) Aspartate Amino Transf (AST/SGOT) 31 U/L (15-37) Alanine Aminotransferase (ALT/SGPT) 28 U/L (14-59) Alkaline Phosphatase 138 U/L (46-116) Total Protein 5.7 g/dL (6.4-8.2) Albumin 3.2 g/dL (3.4-5.0) Albumin/Globulin Ratio 1.3 (1.0-1.7) Micro BC + with G neg chasity and G + cocci Objective Assessment Assessment: 1. Abdominal pain acute on chronic 2. Recent Klebsiella pneumonia bacteremia present,1 out of 4 bottles present on admission. Repeat blood cultures negative 3. Recent Enterococcus faecium amp resistant UTI. History of self- catheterization intermittently 4. Acute on chronic abdominal pain History of gastroparesis. G tube , Two J tubes.Mild Irritation. TPN through central line. 5. Hypertension. 6. History of migraines and seizures. 7. History of anxiety and depression. 8. History of urinary retention, status post Carrillo intermittently, urinary tract infection. 9. 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 10. Transaminitis, chronic, on TPN. 11. Chronic abdominal pain. 12. History of multiple J-tube exchanges. 13. HISTORY OF ALLERGIES TO SULFA AND PENICILLIN WITH NAUSEA AND VOMITING AND RASH, has tolerated Rocephin and meropenem. 14. COVID positive May 25 and June 14 admission 15. Status post Port-A-Cath removal May 2021 16. Power PICC placed June 13 last week 17. Diarrhea Plan Plan of Care Plan : BC + , line infection I d/w her immunology at , no immunologic defect for recurrent infection, it is the access problem, she does TPN, and 4 times Benadryl and 4 times zofran every day apart from when antibiotics needed. 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 Continue supportive care. ISAAC RODRIGUEZ MD Aug 06, 2021 14:36
[2021-08-06 15:15] VITALS: BP 112/69
[2021-08-06 19:00] VITALS: BP 107/54
[2021-08-06] MEDS ORDERED: TOTAL PARENTERAL NUTRITION IV SCH (22:00)
[2021-08-06] MEDS ORDERED: [UNRECOGNIZED DRUG - OTHER] IV SCH (22:00)
[2021-08-06] MEDS ORDERED: DEXTROSE 70% IV SCH (22:00)
[2021-08-06] MEDS ORDERED: AMINO ACID IV SCH (22:00)
[2021-08-06 23:00] VITALS: BP 123/60
[2021-08-07] MEDS: diphenhydrAMINE 50 MG/ML VIAL IVP PRN ×3 (01:05→18:34)
[2021-08-07] MEDS: ONDANSETRON PF 4 MG/2 ML VIAL. IVP PRN ×3 (01:06→15:36)
[2021-08-07] MEDS: HYDROmorphone 2 MG/ML INJ. IVP PRN ×10 (01:08→22:57)
[2021-08-07 07:00] VITALS: BP 112/52
[2021-08-07] MEDS: CEFEPIME HCL IV Push 2 GM VIAL. IVP SCH ×2 (08:01→20:24)
[2021-08-07 09:03] LABS: CALCIUM 8.5 mg/dL (8.5-10.1); CREATININE 0.4 mg/dL (0.6-1.0); GFR 197.8; PHOSPHORUS 3.3 mg/dL (2.6-4.7); POTASSIUM 3.9 mmol/L (3.5-5.1)
--- NOTE | 2021-08-07 10:01 | NUR ---
NIXON following. Discussed with RN, pt from home with family, 4L, COVID-19 negative. ID following - IV abx. Pt has [facility] and [facility] for TPN (and IV abx if needed). Pt will discharge when medically stable. Addendum: 08/07/21 at 1207 by ELVI ALICEA NIXON spoke with Dr. Montelongo - pt will need IV abx but will not know which one until tomorrow. NIXON faxed clinicals to [facility] (ph: [phone], fax: [phone]) and [facility] (ph: [phone] fax: [phone]). IV abx script will need to be faxed and PHONED to [facility] tomorrow so they can get it arranged for pt discharge tomorrow. Home Health orders to be fax[facility] to [facility] and [facility]. Pt added to weekend discharge list.
[2021-08-07 10:52] VITALS: BP 127/68
[2021-08-07] MEDS: TPN PER PHARMACY MC PRN (11:52)
--- NOTE | 2021-08-07 11:52 | PDOC ---
Infectious Disease Note Subjective Subjective pt is feeling ok, ROS ROS no n/v/d/ Vital Sign Vital Signs Vital Signs Date Time Temp Pulse Resp B/P (MAP) Pulse Ox O2 Delivery O2 Flow Rate FiO2 08/07/21 11:00 Room Air 08/07/21 10:52 98.0 98 16 127/68 (87) 98 98.0 08/07/21 06:09 4.0 Physical Exam PHYSICAL EXAM PE VSS GENERAL: Alert, oriented x 3 female lying in bed, in no distress.smiling HEENT: Normocephalic, atraumatic. Anicteric sclerae. No thrush. Oral mucosa moist. NECK: Supple. LUNGS: Clear. Powered PICC right chest wall clean HEART: S1, S2, No murmurs. ABDOMEN: Nondistended, G-tube and J-tubes present. BS + no Carrillo in place EXTREMITIES: No edema. DERMATOLOGIC: Warm, dry, no generalized rash. NEUROLOGIC: Alert, oriented x 3, grossly nonfocal, anxious. PSYCHIATRIC: calm cooperative, Medications: Inpatient Meds: Medications reviewed. Labs: reviewed Labs Lab Laboratory Tests Test 08/07/21 08:20 Sodium Level 138 mmol/L (136-145) Potassium Level 3.9 mmol/L (3.5-5.1) Chloride Level 103 mmol/L (98-107) Carbon Dioxide Level 26 mmol/L (21-32) Anion Gap 9 (6-14) Blood Urea Nitrogen 9 mg/dL (7-20) Creatinine 0.4 mg/dL (0.6-1.0) Estimated GFR (Cockcroft-Gault) 197.8 Glucose Level 113 mg/dL (70-99) Calcium Level 8.5 mg/dL (8.5-10.1) Phosphorus Level 3.3 mg/dL (2.6-4.7) Magnesium Level 2.0 mg/dL (1.8-2.4) Creatine Kinase 33 U/L (26-192) Triglycerides Level 67 mg/dL (0-150) Micro BC Kleb oxytoca Objective Assessment Assessment: 1. Abdominal pain acute on chronic 2. Recent Klebsiella pneumonia bacteremia present,1 out of 4 bottles present on admission. Repeat blood cultures negative 3. Recent Enterococcus faecium amp resistant UTI. History of self-catheterization intermittently 4. Acute on chronic abdominal pain History of gastroparesis. G tube , Two J tubes.Mild Irritation. TPN through central line. 5. Hypertension. 6. History of migraines and seizures. 7. History of anxiety and depression. 8. History of urinary retention, status post Carrillo intermittently, urinary tract infection. 9. 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 10. Transaminitis, chronic, on TPN. 11. Chronic abdominal pain. 12. History of multiple J-tube exchanges. 13. HISTORY OF ALLERGIES TO SULFA AND PENICILLIN WITH NAUSEA AND VOMITING AND RASH, has tolerated Rocephin and meropenem. 14. COVID positive May 25 and June 14 admission 15. Status post Port-A-Cath removal May 2021 16. Power PICC placed June 13 last week 17. Diarrhea Plan Plan of Care Plan : BC + , line infection I d/w her immunology at , no immunologic defect for recurrent infection, it is the access problem, she does TPN, and 4 times Benadryl and 4 times zofran every day apart from when antibiotics needed. 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 Continue supportive care. ISAAC RODRIGUEZ MD Aug 07, 2021 11:52
--- NOTE | 2021-08-07 11:58 | NUR ---
Pharmacy TPN Dosing Note S: SUNITHA SCHULTZ is a 21 year old F Currently receiving Central Cyclic TPN started 08/06/21 B:Pertinent PMH: complicated gi history Height: 5 feet, 7 inches Weight: 81.574281 kg Current diet: npo LABS: Sodium: 138 Potassium: 3.9 Chloride: 103 Calcium: 8.5 Corrected Calcium: 9.14 Magnesium: 2.0 CO2: 26 SCr: 0.4 Glucose: 113 Albumin: 3.2 AST: 31 ALT: 28 TPN FORMULA: TPN TYPE: Central Cyclic AMINO ACIDS: 82 gm DEXTROSE: 165 gm LIPIDS: 20 gm SODIUM CHLORIDE: 75 mEq SODIUM ACETATE: mEq SODIUM PHOSPHATE: mmol POTASSIUM CHLORIDE: 50 mEq POTASSIUM ACETATE: mEq POTASSIUM PHOSPHATE: mmol MAGNESIUM: 28 mEq CALCIUM: 13 mEq INSULIN: units MULTIPLE VITAMIN: 10 ml TRACE ELEMENTS: 1ml ml(s) TPN PLAN: Continue patient's home tpn from [facility] with the following changes: -Change 3x/week lipids to equivalent daily dose To run over 12 hours. 1 hr titrate up, 1 hr titrate down R: Continue TPN Will monitor electrolytes, glucose, and tolerance to TPN. ELSA FRIEDMAN, [facility], 08/07/21 [id number]
--- NOTE | 2021-08-07 12:43 | PDOC ---
[employer] PROGRESS NOTE Date of Service DOS: DATE: 08/07/21 TIME: 12:42 Chief Complaint Chief Complaint Subjective fevers, abdominal pain, swelling, diarrhea, weakness in a middle-aged female with the above noted comorbidities. Gram Negative Steven bacteremia In the past, this has been her preemptive symptoms, becoming septic, so we are going to go ahead and start empiric IV antibiotics. We consulted Infectious Disease. Blood cultures have been ordered. Trend labs. Home meds if possible. DVT prophylaxis. Full code. Long-term prognosis is guarded. History of Present Illness History of Present Illness 08/07 Evaluate examined at bedside. Resting in bed said she was feeling a bit anxious. Reported to me that she normally gets Ativan in the hospital for anxiety. Will go ahead and as needed reorder this. Continue current antibiotics. Infectious disease following. Klebsiella growing on blood cultures. 08/06 Evaluated examined at bedside. Resting in bed states she was feeling pretty tired and lethargic. Alert and oriented. 4 4 bottles positive for gram- negative rods. Continue current antibiotics. Guessing her line will need to come out. Discussed with bedside RN. Vitals/I&O Vitals/I&O: Vital Signs Date Time Temp Pulse Resp B/P (MAP) Pulse Ox O2 Delivery O2 Flow Rate FiO2 08/07/21 11:00 Room Air 08/07/21 10:52 98.0 98 16 127/68 (87) 98 98.0 08/07/21 06:09 4.0 I & O 08/06/21 08/06/21 08/07/21 15:00 23:00 07:00 Intake Total 0 ml 0 ml 970 ml Balance 0 ml 0 ml 970 ml Physical Exam Physical Exam: PE VSS GENERAL: Alert, oriented x 3 female lying in bed, in no distress.smiling HEENT: Normocephalic, atraumatic. Anicteric sclerae. No thrush. Oral mucosa moist. NECK: Supple. LUNGS: Clear. Powered PICC right chest wall clean HEART: S1, S2, No murmurs. ABDOMEN: Nondistended, G-tube and J-tubes present. BS + no Carrillo in place EXTREMITIES: No edema. DERMATOLOGIC: Warm, dry, no generalized rash. NEUROLOGIC: Alert, oriented x 3, grossly nonfocal, anxious. PSYCHIATRIC: calm cooperative, Medications: Inpatient Meds: Medications reviewed. Labs: reviewed Lungs: Clear Labs Labs: Laboratory Tests Test 08/07/21 08:20 Sodium Level 138 mmol/L (136-145) Potassium Level 3.9 mmol/L (3.5-5.1) Chloride Level 103 mmol/L (98-107) Carbon Dioxide Level 26 mmol/L (21-32) Anion Gap 9 (6-14) Blood Urea Nitrogen 9 mg/dL (7-20) Creatinine 0.4 mg/dL (0.6-1.0) Estimated GFR (Cockcroft-Gault) 197.8 Glucose Level 113 mg/dL (70-99) Calcium Level 8.5 mg/dL (8.5-10.1) Phosphorus Level 3.3 mg/dL (2.6-4.7) Magnesium Level 2.0 mg/dL (1.8-2.4) Creatine Kinase 33 U/L (26-192) Triglycerides Level 67 mg/dL (0-150) Comment Review of Relevant I have reviewed the following items lalo (where applicable) has been applied. Medications: Current Medications Medications (Trade) Dose Ordered Sig/Kel Route PRN Reason Start Time Stop Time Status Last Admin Dose Admin Sodium Chloride 75 meq/Potassium Chloride 50 meq/ Magnesium Sulfate 28 meq/Calcium Gluconate 13 meq/ Multivitamins 10 ml/Zinc/Copper/ Manganese/ Selenium 1 ml/ Total Parenteral Nutrition/Amino Acids/Dextrose/ Fat Emulsion Intravenous 1,650 ml @ 137.5 mls/ hr TPN CONT IV 08/06/21 22:00 08/07/21 09:59 DC 08/06/21 22:18 Olanzapine (ZyPREXA ZYDIS) 5 mg QHS PO 08/06/21 21:00 08/06/21 22:18 Justifications for Admission Other Justification Fever ABIGAIL BRIZUELA MD Aug 07, 2021 12:43
[2021-08-07] MEDS: DAPTOmycin (GENERIC) IVPB 490 MG in IV NORMAL SALINE 50ML 50 ML IV SCH (14:21)
[2021-08-07 14:49] VITALS: BP 115/75
[2021-08-07] MEDS: IV NORMAL SALINE 1000ML BAG 1,000 ML IV SCH ×2 (15:45→19:05)
[2021-08-07 19:00] VITALS: BP 122/77
[2021-08-07] MEDS ORDERED: TOTAL PARENTERAL NUTRITION IV SCH (22:00)
[2021-08-07] MEDS ORDERED: DEXTROSE 70% IV SCH (22:00)
[2021-08-07] MEDS ORDERED: AMINO ACID IV SCH (22:00)
[2021-08-07] MEDS ORDERED: [UNRECOGNIZED DRUG - OTHER] IV SCH (22:00)
[2021-08-07 23:00] VITALS: BP 122/76
[2021-08-08] MEDS: diphenhydrAMINE 50 MG/ML VIAL IVP PRN ×4 (00:29→19:56)
[2021-08-08] MEDS: HYDROmorphone 2 MG/ML INJ. IVP PRN ×11 (01:05→23:43)
[2021-08-08] MEDS: ONDANSETRON PF 4 MG/2 ML VIAL. IVP PRN ×2 (05:16→23:43)
[2021-08-08 05:30] LABS: CALCIUM 8.5 mg/dL (8.5-10.1); CREATININE 0.4 mg/dL (0.6-1.0); GFR 197.8; PHOSPHORUS 3.7 mg/dL (2.6-4.7)
[2021-08-08 07:00] VITALS: BP 115/72
[2021-08-08] MEDS: TPN PER PHARMACY MC PRN (07:38)
--- NOTE | 2021-08-08 07:39 | NUR ---
Pharmacy TPN Dosing Note S: SCHULTZSUNITHA is a 21 year old F Currently receiving Central Cyclic TPN B:Pertinent PMH: complicated gi history Height: 5 feet, 7 inches Weight: 81.6 kg Current diet: npo LABS: Sodium: 139 Potassium: 4 Chloride: 106 Calcium: 8.5 Corrected Calcium: 9.14 Magnesium: 2.0 CO2: 26 SCr: 0.4 Glucose: 101 Albumin: 3.2 AST: 31 ALT: 28 TPN FORMULA: TPN TYPE: Central Cyclic AMINO ACIDS: 82 gm DEXTROSE: 165 gm LIPIDS: 20 gm SODIUM CHLORIDE: 75 mEq POTASSIUM CHLORIDE: 50 mEq MAGNESIUM: 28 mEq CALCIUM: 13 mEq MULTIPLE VITAMIN: 10 ml TRACE ELEMENTS: 1ml ml(s) TPN PLAN: No changes to TPN. R: Continue TPN Will monitor electrolytes, glucose, and tolerance to TPN. Renu Melgar RPH, 08/08/21 0739
[2021-08-08] MEDS: IV NORMAL SALINE 1000ML BAG 1,000 ML IV SCH ×2 (08:25→21:23)
[2021-08-08] MEDS: CEFEPIME HCL IV Push 2 GM VIAL. IVP SCH ×2 (09:25→20:19)
[2021-08-08 10:20] VITALS: BP 121/72
[2021-08-08] MEDS: DAPTOmycin (GENERIC) IVPB 490 MG in IV NORMAL SALINE 50ML 50 ML IV SCH (13:29)
[2021-08-08 14:51] VITALS: BP 128/71
[2021-08-08 19:00] VITALS: BP 126/81
[2021-08-08] MEDS ORDERED: TOTAL PARENTERAL NUTRITION IV SCH (22:00)
[2021-08-08] MEDS ORDERED: [UNRECOGNIZED DRUG - OTHER] IV SCH (22:00)
[2021-08-08] MEDS ORDERED: DEXTROSE 70% IV SCH (22:00)
[2021-08-08] MEDS ORDERED: AMINO ACID IV SCH (22:00)
[2021-08-08 23:00] VITALS: BP 122/76
[2021-08-09] MEDS: diphenhydrAMINE 50 MG/ML VIAL IVP PRN ×2 (01:48→15:57)
[2021-08-09] MEDS: HYDROmorphone 2 MG/ML INJ. IVP PRN ×6 (01:48→21:41)
[2021-08-09 06:47] LABS: CALCIUM 8.4 mg/dL (8.5-10.1); CREATININE 0.5 mg/dL (0.6-1.0); GFR 152.9; PHOSPHORUS 3.7 mg/dL (2.6-4.7); POTASSIUM 4.2 mmol/L (3.5-5.1)
[2021-08-09 07:00] VITALS: BP 112/52
[2021-08-09] MEDS: TPN PER PHARMACY MC PRN (07:42)
--- NOTE | 2021-08-09 07:43 | NUR ---
Pharmacy TPN Dosing Note S: SCHULTZSUNITHA is a 21 year old F Currently receiving Central Cyclic TPN started 08/06/21 B:Pertinent PMH: complicated gi history Height: 5 feet, 7 inches Weight: 81.6 kg Current diet: npo LABS: Sodium: 137 Potassium: 4.2 Chloride: 105 Calcium: 8.4 Corrected Calcium: 9.04 Magnesium: 2.0 CO2: 25 SCr: 0.5 Glucose: 87 Albumin: 3.2 AST: 31 ALT: 28 TPN FORMULA: TPN TYPE: Central Cyclic AMINO ACIDS: 82 gm DEXTROSE: 165 gm LIPIDS: 20 gm SODIUM CHLORIDE: 75 mEq POTASSIUM CHLORIDE: 50 mEq MAGNESIUM: 28 mEq CALCIUM: 13 mEq MULTIPLE VITAMIN: 10 ml TRACE ELEMENTS: 1ml ml(s) TPN PLAN: No changes to TPN. R: Continue TPN Will monitor electrolytes, glucose, and tolerance to TPN. Renu Melgar RPH, 08/09/21 0770
[2021-08-09] MEDS: CEFEPIME HCL IV Push 2 GM VIAL. IVP SCH ×2 (09:40→20:30)
[2021-08-09 11:00] VITALS: BP 115/69
[2021-08-09] MEDS: ONDANSETRON PF 4 MG/2 ML VIAL. IVP PRN (12:53)
[2021-08-09 15:00] VITALS: BP 124/75
[2021-08-09] MEDS: IV NORMAL SALINE 1000ML BAG 1,000 ML IV SCH (15:55)
[2021-08-09] MEDS: DAPTOmycin (GENERIC) IVPB 490 MG in IV NORMAL SALINE 50ML 50 ML IV SCH (15:56)
--- NOTE | 2021-08-09 17:49 | PDOC ---
[employer] PROGRESS NOTE Date of Service DOS: August 08 late entry Chief Complaint Chief Complaint Subjective fevers, abdominal pain, swelling, diarrhea, weakness in a middle-aged female with the above noted comorbidities. Gram Negative Steven bacteremia In the past, this has been her preemptive symptoms, becoming septic, so we are going to go ahead and start empiric IV antibiotics. We consulted Infectious Disease. Blood cultures have been ordered. Trend labs. Home meds if possible. DVT prophylaxis. Full code. Long-term prognosis is guarded. History of Present Illness History of Present Illness 08/08 Patient evaluated examined at bedside resting in bed asked to not be awoken from sleep. Continue current plan. Discussed with bedside RN 08/07 Evaluate examined at bedside. Resting in bed said she was feeling a bit anxious. Reported to me that she normally gets Ativan in the hospital for an xiety. Will go ahead and as needed reorder this. Continue current antibiotics. Infectious disease following. Klebsiella growing on blood cultures. 08/06 Evaluated examined at bedside. Resting in bed states she was feeling pretty tired and lethargic. Alert and oriented. 4 4 bottles positive for gram- negative rods. Continue current antibiotics. Guessing her line will need to come out. Discussed with bedside RN. Vitals/I&O Vitals/I&O: Vital Signs Date Time Temp Pulse Resp B/P (MAP) Pulse Ox O2 Delivery O2 Flow Rate FiO2 08/09/21 16:26 Nasal Cannula 08/09/21 15:01 4.0 08/09/21 15:00 98.2 100 18 124/75 (91) 97 98.2 I & O 08/08/21 08/08/21 08/09/21 15:00 23:00 07:00 Intake Total 0 ml Output Total 3000 ml 600 ml Balance -3000 ml -600 ml Physical Exam Physical Exam: PE VSS GENERAL: Alert, oriented x 3 female lying in bed, in no distress.smiling HEENT: Normocephalic, atraumatic. Anicteric sclerae. No thrush. Oral mucosa moist. NECK: Supple. LUNGS: Clear. Powered PICC right chest wall clean HEART: S1, S2, No murmurs. ABDOMEN: Nondistended, G-tube and J-tubes present. BS + no Carrillo in place EXTREMITIES: No edema. DERMATOLOGIC: Warm, dry, no generalized rash. NEUROLOGIC: Alert, oriented x 3, grossly nonfocal, anxious. PSYCHIATRIC: calm cooperative, Medications: Inpatient Meds: Medications reviewed. Labs: reviewed Lungs: Clear Labs Labs: Laboratory Tests Test 08/09/21 05:30 Sodium Level 137 mmol/L (136-145) Potassium Level 4.2 mmol/L (3.5-5.1) Chloride Level 105 mmol/L (98-107) Carbon Dioxide Level 25 mmol/L (21-32) Anion Gap 7 (6-14) Blood Urea Nitrogen 14 mg/dL (7-20) Creatinine 0.5 mg/dL (0.6-1.0) Estimated GFR (Cockcroft-Gault) 152.9 Glucose Level 87 mg/dL (70-99) Calcium Level 8.4 mg/dL (8.5-10.1) Phosphorus Level 3.7 mg/dL (2.6-4.7) Magnesium Level 2.0 mg/dL (1.8-2.4) Comment Review of Relevant I have reviewed the following items lalo (where applicable) has been applied. Medications: Current Medications Medications (Trade) Dose Ordered Sig/Kel Route PRN Reason Start Time Stop Time Status Last Admin Dose Admin Sodium Chloride 75 meq/Potassium Chloride 50 meq/ Magnesium Sulfate 28 meq/Calcium Gluconate 13 meq/ Multivitamins 10 ml/Zinc/Copper/ Manganese/ Selenium 1 ml/ Total Parenteral Nutrition/Amino Acids/Dextrose/ Fat Emulsion Intravenous 1,650 ml @ 137.5 mls/ hr TPN CONT IV 08/08/21 22:00 08/09/21 09:59 DC 08/08/21 22:15 Justifications for Admission Other Justification Fever ABIGAIL BRIZUELA MD Aug 09, 2021 17:49
--- NOTE | 2021-08-09 17:50 | PDOC ---
[employer] PROGRESS NOTE Date of Service DOS: DATE: 08/09/21 TIME: 17:49 Chief Complaint Chief Complaint Subjective fevers, abdominal pain, swelling, diarrhea, weakness in a middle-aged female with the above noted comorbidities. Gram Negative Steven bacteremia In the past, this has been her preemptive symptoms, becoming septic, so we are going to go ahead and start empiric IV antibiotics. We consulted Infectious Disease. Blood cultures have been ordered. Trend labs. Home meds if possible. DVT prophylaxis. Full code. Long-term prognosis is guarded. History of Present Illness History of Present Illness 08/09 Patient evaluated examined at bedside. Was in bed with a jacket over her face. Asked if this meant she was feeling bad she said no she was just "hanging out." Either way continue current plan. Continue IV antibiotics. Will follow-up tomorrow. 08/08 Patient evaluated examined at bedside resting in bed asked to not be awoken from sleep. Continue current plan. Discussed with bedside RN 08/07 Evaluate examined at bedside. Resting in bed said she was feeling a bit anxious. Reported to me that she normally gets Ativan in the hospital for anxiety. Will go ahead and as needed reorder this. Continue current antibiotics. Infectious disease following. Klebsiella growing on blood cultures. 08/06 Evaluated examined at bedside. Resting in bed states she was feeling pretty tired and lethargic. Alert and oriented. 4 4 bottles positive for gram- negative rods. Continue current antibiotics. Guessing her line will need to come out. Discussed with bedside RN. Vitals/I&O Vitals/I&O: Vital Signs Date Time Temp Pulse Resp B/P (MAP) Pulse Ox O2 Delivery O2 Flow Rate FiO2 08/09/21 16:26 Nasal Cannula 08/09/21 15:01 4.0 08/09/21 15:00 98.2 100 18 124/75 (91) 97 98.2 I & O 08/08/21 08/08/21 08/09/21 15:00 23:00 07:00 Intake Total 0 ml Output Total 3000 ml 600 ml Balance -3000 ml -600 ml Physical Exam Physical Exam: PE VSS GENERAL: Alert, oriented x 3 female lying in bed, in no distress.smiling HEENT: Normocephalic, atraumatic. Anicteric sclerae. No thrush. Oral mucosa moist. NECK: Supple. LUNGS: Clear. Powered PICC right chest wall clean HEART: S1, S2, No murmurs. ABDOMEN: Nondistended, G-tube and J-tubes present. BS + no Carrillo in place EXTREMITIES: No edema. DERMATOLOGIC: Warm, dry, no generalized rash. NEUROLOGIC: Alert, oriented x 3, grossly nonfocal, anxious. PSYCHIATRIC: calm cooperative, Medications: Inpatient Meds: Medications reviewed. Labs: reviewed Lungs: Clear Labs Labs: Laboratory Tests Test 08/09/21 05:30 Sodium Level 137 mmol/L (136-145) Potassium Level 4.2 mmol/L (3.5-5.1) Chloride Level 105 mmol/L (98-107) Carbon Dioxide Level 25 mmol/L (21-32) Anion Gap 7 (6-14) Blood Urea Nitrogen 14 mg/dL (7-20) Creatinine 0.5 mg/dL (0.6-1.0) Estimated GFR (Cockcroft-Gault) 152.9 Glucose Level 87 mg/dL (70-99) Calcium Level 8.4 mg/dL (8.5-10.1) Phosphorus Level 3.7 mg/dL (2.6-4.7) Magnesium Level 2.0 mg/dL (1.8-2.4) Comment Review of Relevant I have reviewed the following items lalo (where applicable) has been applied. Medications: Current Medications Medications (Trade) Dose Ordered Sig/Kel Route PRN Reason Start Time Stop Time Status Last Admin Dose Admin Sodium Chloride 75 meq/Potassium Chloride 50 meq/ Magnesium Sulfate 28 meq/Calcium Gluconate 13 meq/ Multivitamins 10 ml/Zinc/Copper/ Manganese/ Selenium 1 ml/ Total Parenteral Nutrition/Amino Acids/Dextrose/ Fat Emulsion Intravenous 1,650 ml @ 137.5 mls/ hr TPN CONT IV 08/08/21 22:00 08/09/21 09:59 DC 08/08/21 22:15 Justifications for Admission Other Justification Fever ABIGAIL BRIZUELA MD Aug 09, 2021 17:50
[2021-08-09 19:00] VITALS: BP 120/68
[2021-08-09] MEDS ORDERED: DEXTROSE 70% IV SCH (22:00)
[2021-08-09] MEDS ORDERED: [UNRECOGNIZED DRUG - OTHER] IV SCH (22:00)
[2021-08-09] MEDS ORDERED: AMINO ACID IV SCH (22:00)
[2021-08-09] MEDS ORDERED: TOTAL PARENTERAL NUTRITION IV SCH (22:00)
[2021-08-09 23:00] VITALS: BP 106/38
--- NOTE | 2021-08-09 23:14 | NUR ---
Pt VS as follows BP: 106/38, as low as 96/26; HR: 150; Temp: 103.1. EKG obtained and MD notified. Received return call from MD, reported the above VS. No new orders received. Will continue to monitor.
--- NOTE | 2021-08-09 23:17 | EKG ---
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
[2021-08-10] VITALS (7 sets, daily range): BP systolic 88–121; BP diastolic 45–75
[2021-08-10] MEDS: IV NORMAL SALINE 1000ML BAG 1,000 ML IV SCH ×2 (04:35→18:15)
[2021-08-10] MEDS: HYDROmorphone 2 MG/ML INJ. IVP PRN ×6 (08:02→22:07)
[2021-08-10] MEDS: CEFEPIME HCL IV Push 2 GM VIAL. IVP SCH ×2 (08:04→21:18)
[2021-08-10] MEDS: ONDANSETRON PF 4 MG/2 ML VIAL. IVP PRN (09:26)
[2021-08-10] MEDS: diphenhydrAMINE 50 MG/ML VIAL IVP PRN (09:27)
--- NOTE | 2021-08-10 10:27 | NUR ---
SW following. Discussed with Dr. Mata, awaiting IV abx determination then pt can discharge home with [facility]. NIXON will continue to follow.
--- NOTE | 2021-08-10 11:34 | PDOC ---
[employer] PROGRESS NOTE Date of Service DOS: DATE: 08/10/21 TIME: 11:32 Chief Complaint Chief Complaint Subjective fevers, abdominal pain, swelling, diarrhea, weakness in a middle-aged female with the above noted comorbidities. Gram Negative Steven bacteremia In the past, this has been her preemptive symptoms, becoming septic, so we are going to go ahead and start empiric IV antibiotics. We consulted Infectious Disease. Blood cultures have been ordered. Trend labs. Home meds if possible. DVT prophylaxis. Full code. Long-term prognosis is guarded. History of Present Illness History of Present Illness 08/10 Patient eval examined at bedside. Had just gotten back to bed from restroom. Febrile to 103 overnight. Will order repeat cultures but given her desire to keep central line suspect cultures may still be positive. ID following. 08/09 Patient evaluated examined at bedside. Was in bed with a jacket over her face. Asked if this meant she was feeling bad she said no she was just "hanging out." Either way continue current plan. Continue IV antibiotics. Will follow-up tomorrow. 08/08 Patient evaluated examined at bedside resting in bed asked to not be awoken from sleep. Continue current plan. Discussed with bedside RN 08/07 Evaluate examined at bedside. Resting in bed said she was feeling a bit anxious. Reported to me that she normally gets Ativan in the hospital for anxiety. Will go ahead and as needed reorder this. Continue current antibiotics. Infectious disease following. Klebsiella growing on blood cultures. 08/06 Evaluated examined at bedside. Resting in bed states she was feeling pretty tired and lethargic. Alert and oriented. 4 4 bottles positive for gram- negative rods. Continue current antibiotics. Guessing her line will need to come out. Discussed with bedside RN. Vitals/I&O Vitals/I&O: Vital Signs Date Time Temp Pulse Resp B/P (MAP) Pulse Ox O2 Delivery O2 Flow Rate FiO2 08/10/21 10:54 98.1 112 18 98/56 (70) 96 Room Air 98.1 08/09/21 15:01 4.0 I & O 08/09/21 08/09/21 08/10/21 15:00 23:00 07:00 Intake Total 0 ml Balance 0 ml Physical Exam Physical Exam: PE VSS GENERAL: Alert, oriented x 3 female lying in bed, in no distress.smiling HEENT: Normocephalic, atraumatic. Anicteric sclerae. No thrush. Oral mucosa moist. NECK: Supple. LUNGS: Clear. Powered PICC right chest wall clean HEART: S1, S2, No murmurs. ABDOMEN: Nondistended, G-tube and J-tubes present. BS + no Carrillo in place EXTREMITIES: No edema. DERMATOLOGIC: Warm, dry, no generalized rash. NEUROLOGIC: Alert, oriented x 3, grossly nonfocal, anxious. PSYCHIATRIC: calm cooperative, Medications: Inpatient Meds: Medications reviewed. Labs: reviewed Lungs: Clear Comment Review of Relevant I have reviewed the following items lalo (where applicable) has been applied. Medications: Current Medications Medications (Trade) Dose Ordered Sig/Kel Route PRN Reason Start Time Stop Time Status Last Admin Dose Admin Sodium Chloride 75 meq/Potassium Chloride 50 meq/ Magnesium Sulfate 28 meq/Calcium Gluconate 13 meq/ Multivitamins 10 ml/Zinc/Copper/ Manganese/ Selenium 1 ml/ Total Parenteral Nutrition/Amino Acids/Dextrose/ Fat Emulsion Intravenous 1,650 ml @ 137.5 mls/ hr TPN CONT IV 08/09/21 22:00 08/10/21 09:59 DC 08/09/21 22:34 Justifications for Admission Other Justification Fever ABIGAIL BRIZUELA MD Aug 10, 2021 11:34
--- NOTE | 2021-08-10 12:32 | PDOC ---
Infectious Disease Note Subjective Subjective pt is feeling ok, have fever 103 last night ROS ROS No nausea vomiting diarrhea chest pain shortness of breath Vital Sign Vital Signs Vital Signs Date Time Temp Pulse Resp B/P (MAP) Pulse Ox O2 Delivery O2 Flow Rate FiO2 08/10/21 12:23 20 08/10/21 10:54 98.1 112 98/56 (70) 96 Room Air 98.1 08/09/21 15:01 4.0 Physical Exam PHYSICAL EXAM PE VSS GENERAL: Alert, oriented x 3 female lying in bed, in no distress.smiling HEENT: Normocephalic, atraumatic. Anicteric sclerae. No thrush. Oral mucosa moist. NECK: Supple. LUNGS: Clear. Powered PICC right chest wall clean HEART: S1, S2, No murmurs. ABDOMEN: Nondistended, G-tube and J-tubes present. BS + no Carrillo in place EXTREMITIES: No edema. DERMATOLOGIC: Warm, dry, no generalized rash. NEUROLOGIC: Alert, oriented x 3, grossly nonfocal, anxious. PSYCHIATRIC: calm cooperative, Medications: Inpatient Meds: Medications reviewed. Labs: reviewed Labs Micro BC Kleb oxytoca Objective Assessment Assessment: 1. Abdominal pain acute on chronic 2. Recent Klebsiella pneumonia bacteremia present,1 out of 4 bottles present on admission. Repeat blood cultures negative 3. Recent Enterococcus faecium amp resistant UTI. History of self-catheterization intermittently 4. Acute on chronic abdominal pain History of gastroparesis. G tube , Two J tubes.Mild Irritation. TPN through central line. 5. Hypertension. 6. History of migraines and seizures. 7. History of anxiety and depression. 8. History of urinary retention, status post Carrillo intermittently, urinary tract infection. 9. 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 10. Transaminitis, chronic, on TPN. 11. Chronic abdominal pain. 12. History of multiple J-tube exchanges. 13. HISTORY OF ALLERGIES TO SULFA AND PENICILLIN WITH NAUSEA AND VOMITING AND RASH, has tolerated Rocephin and meropenem. 14. COVID positive May 25 and June 14 admission 15. Status post Port-A-Cath removal May 2021 16. Power PICC placed June 13 last week 17. Diarrhea Plan Plan of Care BC + , line infection I d/w her immunology at , no immunologic defect for recurrent infection, it is the access problem, she does TPN, and 4 times Benadryl and 4 times zofran every day apart from when antibiotics needed. wants to save line, understands the recurrence, this time it is different species then before daptomycin and cefepime for now PICC service line coordinator Pain management per primary Continue local care of two J-tubes and G-tube. Continue supportive care. Fever is most likely from the line and will have to remove the line if repeat blood culture is positive ISAAC RODRIGUEZ MD Aug 10, 2021 12:32
[2021-08-10] MEDS: TPN PER PHARMACY MC PRN (13:05)
--- NOTE | 2021-08-10 13:14 | NUR ---
Pharmacy TPN Dosing Note S: SUNITHA SCHULTZ is a 21 year old F Currently receiving Central Cyclic TPN started 08/06/21 B:Pertinent PMH: complicated gi history Height: 5 feet, 7 inches Weight: 81.979107 kg Current diet: npo LABS: Sodium: 137 Potassium: 4.2 Chloride: 105 Calcium: 8.4 Corrected Calcium: 9.04 Magnesium: 2.0 CO2: 25 SCr: 0.5 Glucose: 87 Albumin: 3.2 AST: 31 ALT: 28 TPN FORMULA: TPN TYPE: Central Cyclic AMINO ACIDS: 82 gm DEXTROSE: 165 gm LIPIDS: 20 gm SODIUM CHLORIDE: 75 mEq SODIUM ACETATE: mEq SODIUM PHOSPHATE: mmol POTASSIUM CHLORIDE: 50 mEq POTASSIUM ACETATE: mEq POTASSIUM PHOSPHATE: mmol MAGNESIUM: 28 mEq CALCIUM: 13 mEq INSULIN: units MULTIPLE VITAMIN: 10 ml TRACE ELEMENTS: 1ml ml(s) TPN PLAN: No changes to TPN. No labs ordered for today. R: Continue TPN Will monitor electrolytes, glucose, and tolerance to TPN. ELSA FRIEDMAN, [facility], 08/10/21 [id number]
[2021-08-10] MEDS: DAPTOmycin (GENERIC) IVPB 490 MG in IV NORMAL SALINE 50ML 50 ML IV SCH (14:23)
--- NOTE | 2021-08-10 18:38 | NUR ---
Sakina has had a good day. Her pain has been between 6-10. she had 1 episode of nausea this shift and was medicated with zofran. central line dressing changed today along with her primary. blood cultures x2 drawn.
[2021-08-10] MEDS ORDERED: TOTAL PARENTERAL NUTRITION IV SCH (22:00)
[2021-08-10] MEDS ORDERED: [UNRECOGNIZED DRUG - OTHER] IV SCH (22:00)
[2021-08-10] MEDS ORDERED: DEXTROSE 70% IV SCH (22:00)
[2021-08-10] MEDS ORDERED: AMINO ACID IV SCH (22:00)
[2021-08-11 03:00] VITALS: BP 105/60
[2021-08-11] MEDS: IV NORMAL SALINE 1000ML BAG 1,000 ML IV SCH ×2 (03:05→16:25)
[2021-08-11] MEDS: HYDROmorphone 2 MG/ML INJ. IVP PRN ×8 (03:38→22:16)
[2021-08-11] MEDS: MIDODRINE 5 MG TABLET PO SCH ×3 (06:19→18:28)
[2021-08-11 07:00] LABS: ALBUMIN 2.8 g/dL (3.4-5.0); ALBUMIN/GLOBULIN RATIO 0.8 (1.0-1.7); CALCIUM 8.1 mg/dL (8.5-10.1); CREATININE 0.5 mg/dL (0.6-1.0); GFR 152.9; PHOSPHORUS 2.6 mg/dL (2.6-4.7); POTASSIUM 4.1 mmol/L (3.5-5.1); TOTAL BILIRUBIN 0.3 mg/dL (0.2-1.0); TOTAL PROTEIN 6.1 g/dL (6.4-8.2)
[2021-08-11 07:35] VITALS: BP 110/63
[2021-08-11] MEDS: CEFEPIME HCL IV Push 2 GM VIAL. IVP SCH ×2 (07:38→21:15)
[2021-08-11] MEDS: ONDANSETRON PF 4 MG/2 ML VIAL. IVP PRN ×2 (08:57→21:16)
[2021-08-11] MEDS: diphenhydrAMINE 50 MG/ML VIAL IVP PRN (08:58)
[2021-08-11] MEDS: TPN PER PHARMACY MC PRN (10:31)
--- NOTE | 2021-08-11 10:38 | NUR ---
Pharmacy TPN Dosing Note S: SUNITHA SCHULTZ is a 21 year old F Currently receiving Central Cyclic TPN started 08/06/21 B:Pertinent PMH: complicated gi history Height: 5 feet, 7 inches Weight: 81.944602 kg Current diet: npo LABS: Sodium: 137 Potassium: 4.1 Chloride: 106 Calcium: 8.1 Corrected Calcium: 9.06 Magnesium: 2.0 CO2: 22 SCr: 0.5 Glucose: 125 Albumin: 2.8 AST: 20 ALT: 30 TPN FORMULA: TPN TYPE: Central Cyclic AMINO ACIDS: 82 gm DEXTROSE: 165 gm LIPIDS: 20 gm SODIUM CHLORIDE: 75 mEq SODIUM ACETATE: mEq SODIUM PHOSPHATE: mmol POTASSIUM CHLORIDE: 50 mEq POTASSIUM ACETATE: mEq POTASSIUM PHOSPHATE: mmol MAGNESIUM: 28 mEq CALCIUM: 13 mEq INSULIN: units MULTIPLE VITAMIN: 10 ml TRACE ELEMENTS: 1ml ml(s) TPN PLAN: Labs wnl. Continue same tpn. R: Continue TPN as ordered Will monitor electrolytes, glucose, and tolerance to TPN. ELSA FRIEDMAN [facility], 08/11/21 1038
[2021-08-11 11:07] VITALS: BP 106/65
--- NOTE | 2021-08-11 11:19 | PDOC ---
[employer] PROGRESS NOTE Date of Service DOS: DATE: 08/11/21 TIME: 11:15 Chief Complaint Chief Complaint sepsis, POA bacterial central line infection, recurrent, lack of access chronically for TPN abdominal pain, swelling, diarrhea, Gram Negative Steven bacteremia gastroparesis, G tube and J tube anxiety and depression History of Present Illness History of Present Illness , she agrees to change port out, central line noted on CXR 1 month ago discussed with IR, access difficulty ID ok with PICC in interim, may have to settle for midline, chroinc lack of access no fever 24 hours she looks weak and frail and has weak speech today Patient amy examined at bedside. Had just gotten back to bed from restroom. Febrile to 103 overnight. Will order repeat cultures but given her desire to keep central line suspect cultures may still be positive. ID following. 08/09 Patient evaluated examined at bedside. Was in bed with a jacket over her face. Asked if this meant she was feeling bad she said no she was just "hanging out." Either way continue current plan. Continue IV antibiotics. Will follow-up tomorrow. 08/08 Patient evaluated examined at bedside resting in bed asked to not be awoken from sleep. Continue current plan. Discussed with bedside RN 08/07 Evaluate examined at bedside. Resting in bed said she was feeling a bit anxious. Reported to me that she normally gets Ativan in the hospital for anxiety. Will go ahead and as needed reorder this. Continue current antibiotics. Infectious disease following. Klebsiella growing on blood cultures. 08/06 Evaluated examined at bedside. Resting in bed states she was feeling pretty tired and lethargic. Alert and oriented. 4 4 bottles positive for gram- negative rods. Continue current antibiotics. Guessing her line will need to come out. Discussed with bedside RN. Vitals/I&O Vitals/I&O: Vital Signs Date Time Temp Pulse Resp B/P (MAP) Pulse Ox O2 Delivery O2 Flow Rate FiO2 08/11/21 11:07 97.9 99 18 106/65 (79) 97 Room Air 97.9 08/10/21 22:37 4.0 I & O 08/10/21 08/10/21 08/11/21 15:00 23:00 07:00 Intake Total 0 ml Balance 0 ml Physical Exam Physical Exam: GENERAL: Alert, oriented x 3 female lying in bed, lethargic, weak, slow to speak HEENT: Normocephalic, atraumatic. Anicteric sclerae. No thrush. Oral mucosa moist. NECK: Supple. LUNGS: Clear. Powered PICC right chest wall clean HEART: S1, S2, No murmurs. ABDOMEN: Nondistended, G-tube and J-tubes present. BS + EXTREMITIES: No edema. DERMATOLOGIC: Warm, dry, no generalized rash. NEUROLOGIC: nonfocal, not anxious. PSYCHIATRIC: calm cooperative, Lungs: Clear Labs Labs: Laboratory Tests Test 08/11/21 04:25 Sodium Level 137 mmol/L (136-145) Potassium Level 4.1 mmol/L (3.5-5.1) Chloride Level 106 mmol/L (98-107) Carbon Dioxide Level 22 mmol/L (21-32) Anion Gap 9 (6-14) Blood Urea Nitrogen 13 mg/dL (7-20) Creatinine 0.5 mg/dL (0.6-1.0) Estimated GFR (Cockcroft-Gault) 152.9 BUN/Creatinine Ratio 26 (6-20) Glucose Level 125 mg/dL (70-99) Calcium Level 8.1 mg/dL (8.5-10.1) Phosphorus Level 2.6 mg/dL (2.6-4.7) Magnesium Level 2.0 mg/dL (1.8-2.4) Total Bilirubin 0.3 mg/dL (0.2-1.0) Aspartate Amino Transf (AST/SGOT) 20 U/L (15-37) Alanine Aminotransferase (ALT/SGPT) 30 U/L (14-59) Alkaline Phosphatase 111 U/L (46-116) Total Protein 6.1 g/dL (6.4-8.2) Albumin 2.8 g/dL (3.4-5.0) Albumin/Globulin Ratio 0.8 (1.0-1.7) Comment Review of Relevant I have reviewed the following items lalo (where applicable) has been applied. Medications: Current Medications Medications (Trade) Dose Ordered Sig/Kel Route PRN Reason Start Time Stop Time Status Last Admin Dose Admin Sodium Chloride 75 meq/Potassium Chloride 50 meq/ Magnesium Sulfate 28 meq/Calcium Gluconate 13 meq/ Multivitamins 10 ml/Zinc/Copper/ Manganese/ Selenium 1 ml/ Total Parenteral Nutrition/Amino Acids/Dextrose/ Fat Emulsion Intravenous 1,650 ml @ 137.5 mls/ hr TPN CONT IV 08/10/21 22:00 08/11/21 09:59 DC 08/10/21 22:10 Midodrine (Proamatine) 5 mg [id number] PO 08/11/21 07:00 08/11/21 06:19 Justifications for Admission Other Justification Fever KRISTEN ESPAÑA MD Aug 11, 2021 11:19
[2021-08-11] MEDS: DAPTOmycin (GENERIC) IVPB 490 MG in IV NORMAL SALINE 50ML 50 ML IV SCH (12:07)
--- NOTE | 2021-08-11 12:09 | PDOC ---
Infectious Disease Note Subjective Subjective pt is feeling ok, ROS ROS no n/v/d/ Vital Sign Vital Signs Vital Signs Date Time Temp Pulse Resp B/P (MAP) Pulse Ox O2 Delivery O2 Flow Rate FiO2 08/11/21 11:07 97.9 99 18 106/65 (79) 97 Room Air 97.9 08/10/21 22:37 4.0 Physical Exam PHYSICAL EXAM GENERAL: Alert, oriented x 3 female lying in bed, lethargic, weak, slow to speak HEENT: Normocephalic, atraumatic. Anicteric sclerae. No thrush. Oral mucosa moist. NECK: Supple. LUNGS: Clear. Powered PICC right chest wall clean HEART: S1, S2, No murmurs. ABDOMEN: Nondistended, G-tube and J-tubes present. BS + EXTREMITIES: No edema. DERMATOLOGIC: Warm, dry, no generalized rash. NEUROLOGIC: nonfocal, not anxious. PSYCHIATRIC: calm cooperative, Labs Lab Laboratory Tests Test 08/11/21 04:25 Sodium Level 137 mmol/L (136-145) Potassium Level 4.1 mmol/L (3.5-5.1) Chloride Level 106 mmol/L (98-107) Carbon Dioxide Level 22 mmol/L (21-32) Anion Gap 9 (6-14) Blood Urea Nitrogen 13 mg/dL (7-20) Creatinine 0.5 mg/dL (0.6-1.0) Estimated GFR (Cockcroft-Gault) 152.9 BUN/Creatinine Ratio 26 (6-20) Glucose Level 125 mg/dL (70-99) Calcium Level 8.1 mg/dL (8.5-10.1) Phosphorus Level 2.6 mg/dL (2.6-4.7) Magnesium Level 2.0 mg/dL (1.8-2.4) Total Bilirubin 0.3 mg/dL (0.2-1.0) Aspartate Amino Transf (AST/SGOT) 20 U/L (15-37) Alanine Aminotransferase (ALT/SGPT) 30 U/L (14-59) Alkaline Phosphatase 111 U/L (46-116) Total Protein 6.1 g/dL (6.4-8.2) Albumin 2.8 g/dL (3.4-5.0) Albumin/Globulin Ratio 0.8 (1.0-1.7) Micro BC Kleb oxytoca New bc + with yeast and G + cocci Objective Assessment Assessment: 1. Abdominal pain acute on chronic 2. Recent Klebsiella pneumonia bacteremia present,1 out of 4 bottles present on admission. Repeat blood cultures negative 3. Recent Enterococcus faecium amp resistant UTI. History of self- catheterization intermittently 4. Acute on chronic abdominal pain History of gastroparesis. G tube , Two J tubes.Mild Irritation. TPN through central line. 5. Hypertension. 6. History of migraines and seizures. 7. History of anxiety and depression. 8. History of urinary retention, status post Carrillo intermittently, urinary tract infection. 9. 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 10. Transaminitis, chronic, on TPN. 11. Chronic abdominal pain. 12. History of multiple J-tube exchanges. 13. HISTORY OF ALLERGIES TO SULFA AND PENICILLIN WITH NAUSEA AND VOMITING AND RASH, has tolerated Rocephin and meropenem. 14. COVID positive May 25 and June 14 admission 15. Status post Port-A-Cath removal May 2021 16. Power PICC placed June 13 last week 17. Diarrhea Plan Plan of Care BC + , line infection I d/w her immunology at , no immunologic defect for recurrent infection, it is the access problem, she does TPN, and 4 times Benadryl and 4 times zofran every day apart from when antibiotics needed. wants to save line, understands the recurrence, this time it is different species then before daptomycin and cefepime for now PICC sock liner Pain management per primary Continue local care of two J-tubes and G-tube. Continue supportive care. pt need to have line removal, peripheral iv for 2-3 days also add micafungin ISAAC RODRIGUEZ MD Aug 11, 2021 12:09
[2021-08-11] MEDS: MICAFUNGIN 100 MG in IV DEXTROSE 5% 100ML 100 ML IV SCH (13:00)
[2021-08-11 14:55] VITALS: BP 112/64
--- NOTE | 2021-08-11 17:30 | NUR ---
Sakina states she is feeling "weird" fading away. vs-98/56 98.2-104-18 room air sat is 100. later she said that it was the music fading in and out and she was dreaming
[2021-08-11 19:00] VITALS: BP 93/60
[2021-08-11] MEDS ORDERED: TOTAL PARENTERAL NUTRITION IV SCH (22:00)
[2021-08-11] MEDS ORDERED: [UNRECOGNIZED DRUG - OTHER] IV SCH (22:00)
[2021-08-11] MEDS ORDERED: DEXTROSE 70% IV SCH (22:00)
[2021-08-11] MEDS ORDERED: AMINO ACID IV SCH (22:00)
[2021-08-11 23:05] VITALS: BP 113/70
[2021-08-12] VITALS (7 sets, daily range): BP systolic 86–126; BP diastolic 57–70
[2021-08-12] MEDS: HYDROmorphone 2 MG/ML INJ. IVP PRN ×8 (03:37→22:00)
[2021-08-12] MEDS: MIDODRINE 5 MG TABLET PO SCH ×3 (06:33→17:43)
[2021-08-12] MEDS: IV NORMAL SALINE 1000ML BAG 1,000 ML IV SCH ×2 (07:28→22:00)
[2021-08-12] MEDS: CEFEPIME HCL IV Push 2 GM VIAL. IVP SCH ×2 (08:20→19:49)
[2021-08-12] MEDS: ONDANSETRON PF 4 MG/2 ML VIAL. IVP PRN ×2 (08:47→20:27)
[2021-08-12] MEDS: diphenhydrAMINE 50 MG/ML VIAL IVP PRN ×2 (08:47→20:27)
--- NOTE | 2021-08-12 09:58 | NUR ---
SW following. Discussed with RN, pt getting line removed and will need to wait a few days before can get a new one replaced. Awaiting abx determination also. SW will continue to follow.
[2021-08-12] MEDS: TPN PER PHARMACY MC PRN (10:19)
[2021-08-12] MEDS ORDERED: LIDOCAINE 1% PF 2 ML VIAL. ONE (11:21)
[2021-08-12] MEDS ORDERED: LIDOCAINE 1%/EPI 1:100,000 20 ML VIAL. ONE (11:48)
--- NOTE | 2021-08-12 12:19 | PDOC ---
Infectious Disease Note Subjective Subjective pt is feeling ok, ROS ROS no n/v/d/sob Vital Sign Vital Signs Vital Signs Date Time Temp Pulse Resp B/P (MAP) Pulse Ox O2 Delivery O2 Flow Rate FiO2 08/12/21 11:03 103 104/69 (81) 08/12/21 10:46 98.7 18 97 Room Air 98.7 Physical Exam PHYSICAL EXAM GENERAL: Alert, oriented x 3 female lying in bed, lethargic, weak, slow to speak HEENT: Normocephalic, atraumatic. Anicteric sclerae. No thrush. Oral mucosa moist. NECK: Supple. LUNGS: Clear. Powered PICC right chest wall clean HEART: S1, S2, No murmurs. ABDOMEN: Nondistended, G-tube and J-tubes present. BS + EXTREMITIES: No edema. DERMATOLOGIC: Warm, dry, no generalized rash. NEUROLOGIC: nonfocal, not anxious. PSYCHIATRIC: calm cooperative, Labs Micro BC Kleb oxytoca New bc + with yeast and G + cocci Objective Assessment Assessment: 1. Abdominal pain acute on chronic 2. Recent Klebsiella pneumonia bacteremia present,1 out of 4 bottles present on admission. Repeat blood cultures negative 3. Recent Enterococcus faecium amp resistant UTI. History of self- catheterization intermittently 4. Acute on chronic abdominal pain History of gastroparesis. G tube , Two J tubes.Mild Irritation. TPN through central line. 5. Hypertension. 6. History of migraines and seizures. 7. History of anxiety and depression. 8. History of urinary retention, status post Carrillo intermittently, urinary tract infection. 9. 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 10. Transaminitis, chronic, on TPN. 11. Chronic abdominal pain. 12. History of multiple J-tube exchanges. 13. HISTORY OF ALLERGIES TO SULFA AND PENICILLIN WITH NAUSEA AND VOMITING AND RASH, has tolerated Rocephin and meropenem. 14. COVID positive May 25 and June 14 admission 15. Status post Port-A-Cath removal May 2021 16. Power PICC placed June 13 last week 17. Fungemia , G neg and G + bacteremia Plan Plan of Care BC + , line infection I d/w her immunology at , no immunologic defect for recurrent infection, it is the access problem, she does TPN, and 4 times Benadryl and 4 times zofran every day apart from when antibiotics needed. Pain management per primary Continue local care of two J-tubes and G-tube. Continue supportive care. pt need to have line removal, peripheral iv for 2-3 days also add micafungin cv line removal ISAAC RODRIGUEZ MD Aug 12, 2021 12:19
[2021-08-12] MEDS: MICAFUNGIN 100 MG in IV DEXTROSE 5% 100ML 100 ML IV SCH (13:20)
--- NOTE | 2021-08-12 13:53 | PDOC ---
[employer] PROGRESS NOTE Date of Service DOS: DATE: 08/12/21 TIME: 13:49 Chief Complaint Chief Complaint sepsis, POA bacterial central line infection, recurrent, lack of access chronically for TPN abdominal pain, swelling, diarrhea, Gram Negative Steven bacteremia gastroparesis, G tube and J tube anxiety and depression History of Present Illness History of Present Illness 08/12,. line out periheral in weakness , she agrees to change port out, central line noted on CXR 1 month ago discussed with IR, access difficulty ID ok with PICC in interim, may have to settle for midline, chroinc lack of access no fever 24 hours she looks weak and frail and has weak speech today Patient eval examined at bedside. Had just gotten back to bed from restroom. Febrile to 103 overnight. Will order repeat cultures but given her desire to keep central line suspect cultures may still be positive. ID following. 08/09 Patient evaluated examined at bedside. Was in bed with a jacket over her face. Asked if this meant she was feeling bad she said no she was just "hanging out." Either way continue current plan. Continue IV antibiotics. Will follow-up tomorrow. 08/08 Patient evaluated examined at bedside resting in bed asked to not be awoken from sleep. Continue current plan. Discussed with bedside RN 08/07 Evaluate examined at bedside. Resting in bed said she was feeling a bit anxious. Reported to me that she normally gets Ativan in the hospital for anxiety. Will go ahead and as needed reorder this. Continue current antibiotics. Infectious disease following. Klebsiella growing on blood cultures. 08/06 Evaluated examined at bedside. Resting in bed states she was feeling pretty tired and lethargic. Alert and oriented. 4 4 bottles positive for gram- negative rods. Continue current antibiotics. Guessing her line will need to come out. Discussed with bedside RN. Vitals/I&O Vitals/I&O: Vital Signs Date Time Temp Pulse Resp B/P (MAP) Pulse Ox O2 Delivery O2 Flow Rate FiO2 08/12/21 11:03 103 104/69 (81) 08/12/21 10:46 98.7 18 97 Room Air 98.7 I & O 08/11/21 08/11/21 08/12/21 15:00 23:00 07:00 Intake Total 50 ml 0 ml Balance 50 ml 0 ml Physical Exam Physical Exam: GENERAL: Alert, oriented x 3 female lying in bed, lethargic, weak, slow to speak HEENT: Normocephalic, atraumatic. Anicteric sclerae. No thrush. Oral mucosa moist. NECK: Supple. LUNGS: Clear. Powered PICC right chest wall clean HEART: S1, S2, No murmurs. ABDOMEN: Nondistended, G-tube and J-tubes present. BS + EXTREMITIES: No edema. DERMATOLOGIC: Warm, dry, no generalized rash. NEUROLOGIC: nonfocal, not anxious. PSYCHIATRIC: calm cooperative, General: Alert, Cooperative, No acute distress Heart: Regular rate Lungs: Clear Abdomen: Soft Comment Review of Relevant I have reviewed the following items lalo (where applicable) has been applied. Medications: Current Medications Medications (Trade) Dose Ordered Sig/Kel Route PRN Reason Start Time Stop Time Status Last Admin Dose Admin Sodium Chloride 75 meq/Potassium Chloride 50 meq/ Magnesium Sulfate 28 meq/Calcium Gluconate 13 meq/ Multivitamins 10 ml/Zinc/Copper/ Manganese/ Selenium 1 ml/ Total Parenteral Nutrition/Amino Acids/Dextrose/ Fat Emulsion Intravenous 1,650 ml @ 137.5 mls/ hr TPN CONT IV 08/11/21 22:00 08/12/21 09:59 DC 08/11/21 22:15 Justifications for Admission Other Justification Fever KRISTEN ESPAÑA MD Aug 12, 2021 13:53
[2021-08-12] MEDS: DAPTOmycin (GENERIC) IVPB 490 MG in IV NORMAL SALINE 50ML 50 ML IV SCH (14:13)
--- NOTE | 2021-08-12 14:36 | RAD ---
Removal of right internal jugular tunneled central line 08/12/2021 Consent: The procedure was explained in its entirety to the patient or the patients designated repres entative by a member of the treatment team, including a discussion of the risks, benefits and commonl y accepted alternatives to the procedure, as well as the expected consequences of no therapy whatsoev er. Discussion of the risks included, but was not limited to, those that are most frequent and thos e that are rare but possibly severe or life-threatening, as well as the possibility of unforeseen com plications. The right internal jugular tunneled central line was removed traction at the bedside. Manual pressure was held. Sterile dressings were applied. No immediate complications were identified. IMPRESSION: Removal of right internal jugular tunneled central line Electronically signed by: Flo Cartwright MD (08/12/2021 2:34 PM) [id number]
[2021-08-12] MEDS ORDERED: AMINO ACID IV SCH (22:00)
[2021-08-12] MEDS ORDERED: DEXTROSE 70% IV SCH (22:00)
[2021-08-12] MEDS ORDERED: TOTAL PARENTERAL NUTRITION IV SCH (22:00)
[2021-08-12] MEDS ORDERED: [UNRECOGNIZED DRUG - OTHER] IV SCH (22:00)
[2021-08-13] MEDS: HYDROmorphone 2 MG/ML INJ. IVP PRN ×8 (00:27→22:10)
[2021-08-13] MEDS: MIDODRINE 5 MG TABLET PO SCH ×3 (01:54→17:44)
[2021-08-13 02:51] VITALS: BP 107/45
[2021-08-13 07:00] VITALS: BP 119/69
[2021-08-13] MEDS: CEFEPIME HCL IV Push 2 GM VIAL. IVP SCH ×2 (07:46→19:55)
[2021-08-13] MEDS: FAMOTIDINE 20 MG/2 ML VIAL IVP SCH ×2 (10:19→19:53)
--- NOTE | 2021-08-13 10:33 | PDOC ---
[employer] PROGRESS NOTE Date of Service DOS: DATE: 08/13/21 TIME: 10:31 Chief Complaint Chief Complaint sepsis, POA bacterial central line infection, recurrent, lack of access chronically for TPN fungemia abdominal pain, swelling, diarrhea, Gram Negative Steven bacteremia gastroparesis, G tube and J tube anxiety and depression History of Present Illness History of Present Illness 08/13, central line to chest out yesterday, like Port removal by IR yesterday has peripheral, diong OK , cont antifungal for a couple days before reinsert central line for home TPN peg feeds as able, she compains of discharge from PEG, wants pepcid IV restarted 08/12,. line out periheral in weakness , she agrees to change port out, central line noted on CXR 1 month ago discussed with IR, access difficulty ID ok with PICC in interim, may have to settle for midline, chroinc lack of access no fever 24 hours she looks weak and frail and has weak speech today Patient eval examined at bedside. Had just gotten back to bed from restroom. Febrile to 103 overnight. Will order repeat cultures but given her desire to keep central line suspect cultures may still be positive. ID following. 08/09 Patient evaluated examined at bedside. Was in bed with a jacket over her face. Asked if this meant she was feeling bad she said no she was just "hanging out." Either way continue current plan. Continue IV antibiotics. Will follow-up tomorrow. 08/08 Patient evaluated examined at bedside resting in bed asked to not be awoken from sleep. Continue current plan. Discussed with bedside RN 08/07 Evaluate examined at bedside. Resting in bed said she was feeling a bit anxious. Reported to me that she normally gets Ativan in the hospital for anxiety. Will go ahead and as needed reorder this. Continue current antibiotics. Infectious disease following. Klebsiella growing on blood cultures. 08/06 Evaluated examined at bedside. Resting in bed states she was feeling pretty tired and lethargic. Alert and oriented. 4 4 bottles positive for gram- negative rods. Continue current antibiotics. Guessing her line will need to come out. Discussed with bedside RN. Vitals/I&O Vitals/I&O: Vital Signs Date Time Temp Pulse Resp B/P (MAP) Pulse Ox O2 Delivery O2 Flow Rate FiO2 08/13/21 10:17 Room Air 08/13/21 07:00 97.2 97 20 119/69 (86) 96 97.2 I & O 08/12/21 08/12/21 08/13/21 15:00 23:00 07:00 Intake Total 750 ml 0 ml Balance 750 ml 0 ml Physical Exam Physical Exam: GENERAL: Alert, oriented x 3 female lying in bed, lethargic, weak, slow to speak HEENT: Normocephalic, atraumatic. Anicteric sclerae. No thrush. Oral mucosa moist. NECK: Supple. LUNGS: Clear. Powered PICC right chest wall clean HEART: S1, S2, No murmurs. ABDOMEN: Nondistended, G-tube and J-tubes present. BS + EXTREMITIES: No edema. DERMATOLOGIC: Warm, dry, no generalized rash. NEUROLOGIC: nonfocal, not anxious. PSYCHIATRIC: calm cooperative, General: Alert, Cooperative, No acute distress Heart: Regular rate Lungs: Clear Abdomen: Soft Review of Systems Review of Systems: PEG discharge str better no nasuea Comment Review of Relevant I have reviewed the following items lalo (where applicable) has been applied. Medications: Current Medications Medications (Trade) Dose Ordered Sig/Kel Route PRN Reason Start Time Stop Time Status Last Admin Dose Admin Famotidine (Pepcid Vial) 20 mg BID IVP 08/13/21 09:00 08/13/21 10:19 Justifications for Admission Other Justification Fever KRISTEN ESPAÑA MD Aug 13, 2021 10:33
[2021-08-13 11:00] VITALS: BP 103/60
--- NOTE | 2021-08-13 12:59 | PDOC ---
Infectious Disease Note Subjective Subjective pt is feeling ok, ROS ROS no n/v/d/fever Vital Sign Vital Signs Vital Signs Date Time Temp Pulse Resp B/P (MAP) Pulse Ox O2 Delivery O2 Flow Rate FiO2 08/13/21 11:00 97.6 100 20 103/60 (74) 96 Room Air 97.6 Physical Exam PHYSICAL EXAM GENERAL: Alert, oriented x 3 female lying in bed, lethargic, weak, slow to speak HEENT: Normocephalic, atraumatic. Anicteric sclerae. No thrush. Oral mucosa moist. NECK: Supple. LUNGS: Clear. power picc is out HEART: S1, S2, No murmurs. ABDOMEN: Nondistended, G-tube and J-tubes present. BS + EXTREMITIES: No edema. DERMATOLOGIC: Warm, dry, no generalized rash. NEUROLOGIC: nonfocal, not anxious. PSYCHIATRIC: calm cooperative, Labs Micro BLOOD CULTURE Final YEAST FINAL ID= LAURA KRUSEI NO FURTHER WORKUP GRAM POSITIVE COCCI FINAL ID= [email or web address] EPIDERMIDIS Growth of organism in only one of multiple sets; isolation does not necessarily indicate infection. Contact Microbiology Lab if further testing is clinically warranted. Testing performed by [address] [address] digital sales director: Corrie Abdullahi MD Objective Assessment Assessment: 1. Abdominal pain acute on chronic 2. Recent Klebsiella pneumonia bacteremia present, 3. Recent Enterococcus faecium amp resistant UTI. History of self- catheterization intermittently 4. Acute on chronic abdominal pain History of gastroparesis. G tube , Two J tubes.Mild Irritation. TPN through central line. 5. Hypertension. 6. History of migraines and seizures. 7. History of anxiety and depression. 8. History of urinary retention, status post Carrillo intermittently, urinary tract infection. 9. 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 10. Transaminitis, chronic, on TPN. 11. Chronic abdominal pain. 12. History of multiple J-tube exchanges. 13. HISTORY OF ALLERGIES TO SULFA AND PENICILLIN WITH NAUSEA AND VOMITING AND RASH, has tolerated Rocephin and meropenem. 14. COVID positive May 25 and June 14 admission 15. Status post Port-A-Cath removal May 2021 16. Power PICC placed June 13 last week 17. 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 pt has 2 dogs and a cat, who sleeps with her, she was recommended to not have them Pain management per primary Continue local care of two J-tubes and G-tube. Continue supportive care. also micafungin cv line removal ISAAC RODRIGUEZ MD Aug 13, 2021 12:59
[2021-08-13] MEDS: MICAFUNGIN 100 MG in IV DEXTROSE 5% 100ML 100 ML IV SCH (13:04)
[2021-08-13] MEDS: IV NORMAL SALINE 1000ML BAG 1,000 ML IV SCH ×2 (13:08→22:11)
[2021-08-13 15:00] VITALS: BP 109/76
[2021-08-13] MEDS: ONDANSETRON PF 4 MG/2 ML VIAL. IVP PRN (15:10)
[2021-08-13] MEDS: DAPTOmycin (GENERIC) IVPB 490 MG in IV NORMAL SALINE 50ML 50 ML IV SCH (15:12)
[2021-08-13 19:00] VITALS: BP 135/68
[2021-08-13] MEDS: diphenhydrAMINE 50 MG/ML VIAL IVP PRN (22:11)
[2021-08-13 23:06] VITALS: BP 112/65
[2021-08-14] MEDS: HYDROmorphone 2 MG/ML INJ. IVP PRN ×7 (00:34→22:46)
[2021-08-14 03:07] VITALS: BP 103/55
[2021-08-14] MEDS: ONDANSETRON PF 4 MG/2 ML VIAL. IVP PRN (06:26)
[2021-08-14] MEDS: MIDODRINE 5 MG TABLET PO SCH ×3 (06:26→16:58)
[2021-08-14 07:00] VITALS: BP 101/56
[2021-08-14] MEDS: FAMOTIDINE 20 MG/2 ML VIAL IVP SCH ×2 (07:59→19:35)
[2021-08-14] MEDS: CEFEPIME HCL IV Push 2 GM VIAL. IVP SCH ×2 (08:00→19:36)
[2021-08-14 10:41] LABS: ALBUMIN/GLOBULIN RATIO 0.8 (1.0-1.7); CALCIUM 8.5 mg/dL (8.5-10.1); CREATININE 0.5 mg/dL (0.6-1.0); GFR 152.9; MAGNESIUM 1.6 mg/dL (1.8-2.4); PHOSPHORUS 4.2 mg/dL (2.6-4.7); POTASSIUM 3.6 mmol/L (3.5-5.1); TOTAL BILIRUBIN 0.5 mg/dL (0.2-1.0); TOTAL PROTEIN 6.6 g/dL (6.4-8.2)
[2021-08-14 11:00] VITALS: BP 100/58
--- NOTE | 2021-08-14 12:51 | PDOC ---
Infectious Disease Note Subjective Subjective pt is feeling good ROS ROS No nausea vomiting diarrhea or fever Vital Sign Vital Signs Vital Signs Date Time Temp Pulse Resp B/P (MAP) Pulse Ox O2 Delivery O2 Flow Rate FiO2 08/14/21 09:37 98 Room Air 4.0 08/14/21 07:00 98.1 85 18 101/56 (71) 98.1 Physical Exam PHYSICAL EXAM GENERAL: Alert, oriented x 3 female lying in bed, lethargic, weak, slow to speak HEENT: Normocephalic, atraumatic. Anicteric sclerae. No thrush. Oral mucosa moist. NECK: Supple. LUNGS: Clear. power picc is out HEART: S1, S2, No murmurs. ABDOMEN: Nondistended, G-tube and J-tubes present. BS + EXTREMITIES: No edema. DERMATOLOGIC: Warm, dry, no generalized rash. NEUROLOGIC: nonfocal, not anxious. PSYCHIATRIC: calm cooperative, Labs Lab Laboratory Tests Test 08/14/21 09:30 Sodium Level 142 mmol/L (136-145) Potassium Level 3.6 mmol/L (3.5-5.1) Chloride Level 107 mmol/L (98-107) Carbon Dioxide Level 24 mmol/L (21-32) Anion Gap 11 (6-14) Blood Urea Nitrogen 5 mg/dL (7-20) Creatinine 0.5 mg/dL (0.6-1.0) Estimated GFR (Cockcroft-Gault) 152.9 BUN/Creatinine Ratio 10 (6-20) Glucose Level 78 mg/dL (70-99) Calcium Level 8.5 mg/dL (8.5-10.1) Phosphorus Level 4.2 mg/dL (2.6-4.7) Magnesium Level 1.6 mg/dL (1.8-2.4) Total Bilirubin 0.5 mg/dL (0.2-1.0) Aspartate Amino Transf (AST/SGOT) 11 U/L (15-37) Alanine Aminotransferase (ALT/SGPT) 22 U/L (14-59) Alkaline Phosphatase 123 U/L (46-116) Total Protein 6.6 g/dL (6.4-8.2) Albumin 3.0 g/dL (3.4-5.0) Albumin/Globulin Ratio 0.8 (1.0-1.7) Micro BLOOD CULTURE Final YEAST FINAL ID= LAURA KRUSEI NO FURTHER WORKUP GRAM POSITIVE COCCI FINAL ID= STAPHYLOCOCCUS EPIDERMIDIS Growth of organism in only one of multiple sets; isolation does not necessarily indicate infection. Contact Microbiology Lab if further testing is clinically warranted. Testing performed by [address] [address] director alliance marketing: Corrie Abdullahi MD Objective Assessment Assessment: 1. Abdominal pain acute on chronic 2. Recent Klebsiella pneumonia bacteremia present, 3. Recent Enterococcus faecium amp resistant UTI. History of self- catheterization intermittently 4. Acute on chronic abdominal pain History of gastroparesis. G tube , Two J tubes.Mild Irritation. TPN through central line. 5. Hypertension. 6. History of migraines and seizures. 7. History of anxiety and depression. 8. History of urinary retention, status post Carrillo intermittently, urinary tract infection. 9. 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 10. Transaminitis, chronic, on TPN. 11. Chronic abdominal pain. 12. History of multiple J-tube exchanges. 13. HISTORY OF ALLERGIES TO SULFA AND PENICILLIN WITH NAUSEA AND VOMITING AND RASH, has tolerated Rocephin and meropenem. 14. COVID positive May 25 and June 14 admission 15. Status post Port-A-Cath removal May 2021 16. Power PICC placed June 13 last week 17. 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 pt has 2 dogs and a cat, who sleeps with her, she was recommended to not have them Pain management per primary Continue local care of two J-tubes and G-tube. Continue supportive care. also micafungin cv line removal Repeat blood cultures so far negative ISAAC RODRIGUEZ MD Aug 14, 2021 12:51
[2021-08-14] MEDS: MICAFUNGIN 100 MG in IV DEXTROSE 5% 100ML 100 ML IV SCH (13:00)
--- NOTE | 2021-08-14 13:01 | NUR ---
SW following. Discussed with RN, awaiting abx determination and line to be replaced. Per Dr. Montelongo, likely discharge on Tuesday (08/17/21). SW will continue to follow.
[2021-08-14] MEDS: DAPTOmycin (GENERIC) IVPB 490 MG in IV NORMAL SALINE 50ML 50 ML IV SCH (13:32)
--- NOTE | 2021-08-14 16:22 | PDOC ---
[facility] [facility] PROGRESS NOTE Date of Service DOS: DATE: 08/14/21 TIME: 16:21 Chief Complaint Chief Complaint sepsis, POA bacterial central line infection, recurrent, lack of access chronically for TPN fungemia abdominal pain, swelling, diarrhea, Gram Negative Steven bacteremia gastroparesis, G tube and J tube anxiety and depression History of Present Illness History of Present Illness 08/14, feels stronger, doing better, pain OK, nausea better gastric output better with pepcid dosing, cont current replace line with ID ok with that 08/13, central line to chest out yesterday, like Port removal by IR yesterday has peripheral, diong OK , cont antifungal for a couple days before reinsert central line for home TPN peg feeds as able, she compains of discharge from PEG, wants pepcid IV restarted 08/12,. line out periheral in weakness , she agrees to change port out, central line noted on CXR 1 month ago discussed with IR, access difficulty ID ok with PICC in interim, may have to settle for midline, chroinc lack of access no fever 24 hours she looks weak and frail and has weak speech today Patient amy examined at bedside. Had just gotten back to bed from restroom. Febrile to 103 overnight. Will order repeat cultures but given her desire to keep central line suspect cultures may still be positive. ID following. 08/09 Patient evaluated examined at bedside. Was in bed with a jacket over her face. Asked if this meant she was feeling bad she said no she was just "hanging out." Either way continue current plan. Continue IV antibiotics. Will follow-up tomorrow. 08/08 Patient evaluated examined at bedside resting in bed asked to not be awoken from sleep. Continue current plan. Discussed with bedside RN 08/07 Evaluate examined at bedside. Resting in bed said she was feeling a bit anxious. Reported to me that she normally gets Ativan in the hospital for anxiety. Will go ahead and as needed reorder this. Continue current antibiotics. Infectious disease following. Klebsiella growing on blood cultu res. 08/06 Evaluated examined at bedside. Resting in bed states she was feeling pretty tired and lethargic. Alert and oriented. 4 4 bottles positive for gram- negative rods. Continue current antibiotics. Guessing her line will need to come out. Discussed with bedside RN. Vitals/I&O Vitals/I&O: Vital Signs Date Time Temp Pulse Resp B/P (MAP) Pulse Ox O2 Delivery O2 Flow Rate FiO2 08/14/21 11:00 97.8 82 16 100/58 (72) 97 Room Air 97.8 08/14/21 09:37 4.0 I & O 08/13/21 08/13/21 08/14/21 15:00 23:00 07:00 Intake Total 120 ml 0 ml Balance 120 ml 0 ml Physical Exam Physical Exam: GENERAL: Alert, oriented x 3 female lying in bed, lethargic, weak, slow to speak HEENT: Normocephalic, atraumatic. Anicteric sclerae. No thrush. Oral mucosa moist. NECK: Supple. LUNGS: Clear. power picc is out HEART: S1, S2, No murmurs. ABDOMEN: Nondistended, G-tube and J-tubes present. BS + EXTREMITIES: No edema. DERMATOLOGIC: Warm, dry, no generalized rash. NEUROLOGIC: nonfocal, not anxious. PSYCHIATRIC: calm cooperative, General: Alert, Cooperative, No acute distress Heart: Regular rate Lungs: Clear Abdomen: Soft Labs Labs: Laboratory Tests Test 08/14/21 09:30 Sodium Level 142 mmol/L (136-145) Potassium Level 3.6 mmol/L (3.5-5.1) Chloride Level 107 mmol/L (98-107) Carbon Dioxide Level 24 mmol/L (21-32) Anion Gap 11 (6-14) Blood Urea Nitrogen 5 mg/dL (7-20) Creatinine 0.5 mg/dL (0.6-1.0) Estimated GFR (Cockcroft-Gault) 152.9 BUN/Creatinine Ratio 10 (6-20) Glucose Level 78 mg/dL (70-99) Calcium Level 8.5 mg/dL (8.5-10.1) Phosphorus Level 4.2 mg/dL (2.6-4.7) Magnesium Level 1.6 mg/dL (1.8-2.4) Total Bilirubin 0.5 mg/dL (0.2-1.0) Aspartate Amino Transf (AST/SGOT) 11 U/L (15-37) Alanine Aminotransferase (ALT/SGPT) 22 U/L (14-59) Alkaline Phosphatase 123 U/L (46-116) Total Protein 6.6 g/dL (6.4-8.2) Albumin 3.0 g/dL (3.4-5.0) Albumin/Globulin Ratio 0.8 (1.0-1.7) Comment Review of Relevant I have reviewed the following items lalo (where applicable) has been applied. Justifications for Admission Other Justification Fever KRISTEN ESPAÑA MD Aug 14, 2021 16:22
[2021-08-14] MEDS: diphenhydrAMINE 50 MG/ML VIAL IVP PRN (16:58)
[2021-08-14] MEDS: IV NORMAL SALINE 1000ML BAG 1,000 ML IV SCH (17:02)
[2021-08-14 19:15] VITALS: BP 124/68
[2021-08-14 23:07] VITALS: BP 109/67
[2021-08-15] MEDS: HYDROmorphone 2 MG/ML INJ. IVP PRN ×10 (01:25→22:21)
[2021-08-15 03:10] VITALS: BP 121/73
[2021-08-15] MEDS: IV NORMAL SALINE 1000ML BAG 1,000 ML IV SCH ×3 (03:50→21:31)
[2021-08-15 07:00] VITALS: BP 111/65
[2021-08-15] MEDS: MIDODRINE 5 MG TABLET PO SCH ×3 (07:00→17:52)
[2021-08-15] MEDS: CEFEPIME HCL IV Push 2 GM VIAL. IVP SCH ×2 (08:30→21:32)
[2021-08-15] MEDS: FAMOTIDINE 20 MG/2 ML VIAL IVP SCH ×2 (08:30→21:32)
[2021-08-15] MEDS: ONDANSETRON PF 4 MG/2 ML VIAL. IVP PRN ×2 (09:30→16:55)
[2021-08-15] MEDS: diphenhydrAMINE 50 MG/ML VIAL IVP PRN ×2 (09:30→16:55)
[2021-08-15 11:00] VITALS: BP 116/78
--- NOTE | 2021-08-15 12:28 | PDOC ---
[employer] [facility] PROGRESS NOTE Date of Service DOS: DATE: 08/15/21 TIME: 12:27 Chief Complaint Chief Complaint sepsis, POA bacterial central line infection, recurrent, lack of access chronically for TPN fungemia abdominal pain, swelling, diarrhea, Gram Negative Steven bacteremia gastroparesis, G tube and J tube anxiety and depression History of Present Illness History of Present Illness 08/15, some nausea this AM, did vomit, Zofran given , feels stronger, doing better, pain OK, nausea better gastric output better with pepcid dosing, cont current replace line with ID - plan tuesday, then DC plan Vitals/I&O Vitals/I&O: Vital Signs Date Time Temp Pulse Resp B/P (MAP) Pulse Ox O2 Delivery O2 Flow Rate FiO2 08/15/21 11:19 Room Air 08/15/21 11:00 97.6 81 18 116/78 (91) 99 97.6 08/14/21 17:40 4.0 I & O 08/14/21 08/14/21 08/15/21 15:00 23:00 07:00 Intake Total 240 ml Balance 240 ml Physical Exam Physical Exam: GENERAL: Alert, oriented x 3 female lying in bed, lethargic, weak, slow to speak HEENT: Normocephalic, atraumatic. Anicteric sclerae. No thrush. Oral mucosa moist. NECK: Supple. LUNGS: Clear. power picc is out HEART: S1, S2, No murmurs. ABDOMEN: Nondistended, G-tube and J-tubes present. BS + EXTREMITIES: No edema. DERMATOLOGIC: Warm, dry, no generalized rash. NEUROLOGIC: nonfocal, not anxious. PSYCHIATRIC: calm cooperative, General: Alert, Cooperative, No acute distress Heart: Regular rate Lungs: Clear Abdomen: Soft Comment Review of Relevant I have reviewed the following items lalo (where applicable) has been applied. Justifications for Admission Other Justification Fever KRISTEN ESPAÑA MD Aug 15, 2021 12:28
[2021-08-15] MEDS: MICAFUNGIN 100 MG in IV DEXTROSE 5% 100ML 100 ML IV SCH (13:20)
[2021-08-15] MEDS: DAPTOmycin (GENERIC) IVPB 490 MG in IV NORMAL SALINE 50ML 50 ML IV SCH (14:37)
[2021-08-15 15:00] VITALS: BP 112/69
[2021-08-15 19:00] VITALS: BP 113/70
[2021-08-15 23:00] VITALS: BP 135/83
[2021-08-16 02:37] VITALS: BP 126/66
[2021-08-16] MEDS: HYDROmorphone 2 MG/ML INJ. IVP PRN ×8 (05:34→23:36)
[2021-08-16] MEDS: MIDODRINE 5 MG TABLET PO SCH ×3 (06:57→17:03)
[2021-08-16 07:00] VITALS: BP 135/82
[2021-08-16] MEDS: diphenhydrAMINE 50 MG/ML VIAL IVP PRN ×3 (07:23→20:35)
[2021-08-16] MEDS: ONDANSETRON PF 4 MG/2 ML VIAL. IVP PRN ×3 (07:23→20:36)
[2021-08-16] MEDS: FAMOTIDINE 20 MG/2 ML VIAL IVP SCH ×2 (08:21→19:54)
[2021-08-16] MEDS: CEFEPIME HCL IV Push 2 GM VIAL. IVP SCH ×2 (08:21→19:53)
[2021-08-16 10:36] VITALS: BP 110/81
--- NOTE | 2021-08-16 11:34 | PDOC ---
Infectious Disease Note Subjective Subjective pt is feeling good ROS ROS no n/v/d/ Vital Sign Vital Signs Vital Signs Date Time Temp Pulse Resp B/P (MAP) Pulse Ox O2 Delivery O2 Flow Rate FiO2 08/16/21 10:36 97.6 74 16 110/81 (91) Room Air 96.0 97.6 08/16/21 07:00 97 Physical Exam PHYSICAL EXAM GENERAL: Alert, oriented x 3 female lying in bed, lethargic, weak, slow to speak HEENT: Normocephalic, atraumatic. Anicteric sclerae. No thrush. Oral mucosa moist. NECK: Supple. LUNGS: Clear. power picc is out HEART: S1, S2, No murmurs. ABDOMEN: Nondistended, G-tube and J-tubes present. BS + EXTREMITIES: No edema. DERMATOLOGIC: Warm, dry, no generalized rash. NEUROLOGIC: nonfocal, not anxious. PSYCHIATRIC: calm cooperative, Labs Lab Laboratory Tests Test 08/16/21 07:35 Creatine Kinase 17 U/L (26-192) Micro BLOOD CULTURE Final YEAST FINAL ID= LAURA KRUSEI NO FURTHER WORKUP GRAM POSITIVE COCCI FINAL ID= STAPHYLOCOCCUS EPIDERMIDIS Growth of organism in only one of multiple sets; isolation does not necessarily indicate infection. Contact Microbiology Lab if further testing is clinically warranted. Testing performed by [address] [address] director business: Corrie Abdullahi MD Objective Assessment Assessment: 1. Abdominal pain acute on chronic 2. Recent Klebsiella pneumonia bacteremia present, 3. Recent Enterococcus faecium amp resistant UTI. History of self- catheterization intermittently 4. Acute on chronic abdominal pain History of gastroparesis. G tube , Two J tubes.Mild Irritation. TPN through central line. 5. Hypertension. 6. History of migraines and seizures. 7. History of anxiety and depression. 8. History of urinary retention, status post Carrillo intermittently, urinary tract infection. 9. 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 10. Transaminitis, chronic, on TPN. 11. Chronic abdominal pain. 12. History of multiple J-tube exchanges. 13. HISTORY OF ALLERGIES TO SULFA AND PENICILLIN WITH NAUSEA AND VOMITING AND RASH, has tolerated Rocephin and meropenem. 14. COVID positive May 25 and June 14 admission 15. Status post Port-A-Cath removal May 2021 16. Power PICC placed June 13 last week 17. 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 pt has 2 dogs and a cat, who sleeps with her, she was recommended to not have them Pain management per primary Continue local care of two J-tubes and G-tube. Continue supportive care. also micafungin cv line removal Repeat blood cultures so far negative ISAAC RODRIGUEZ MD Aug 16, 2021 11:34
[2021-08-16] MEDS ORDERED: IV DEXTROSE 5 %-0.45 % NACL 1,000 ML IV SCH (12:30)
[2021-08-16] MEDS: MICAFUNGIN 100 MG in IV DEXTROSE 5% 100ML 100 ML IV SCH (12:43)
--- NOTE | 2021-08-16 12:51 | PDOC ---
[facility] [facility] PROGRESS NOTE Date of Service DOS: DATE: 08/16/21 TIME: 12:49 Chief Complaint Chief Complaint sepsis, POA bacterial central line infection, recurrent, lack of access chronically for TPN fungemia abdominal pain, swelling, diarrhea, Gram Negative Steven bacteremia gastroparesis, G tube and J tube anxiety and depression History of Present Illness History of Present Illness 08/16, ID following may have new central line tomrrow to resume TPN on D5 half cont micafungin for the fungemia 08/15, some nausea this AM, did vomit, Zofran given , feels stronger, doing better, pain OK, nausea better gastric output better with pepcid dosing, cont current replace line with ID - plan tuesday, then DC plan Vitals/I&O Vitals/I&O: Vital Signs Date Time Temp Pulse Resp B/P (MAP) Pulse Ox O2 Delivery O2 Flow Rate FiO2 08/16/21 12:42 Room Air 08/16/21 12:30 74 110/81 08/16/21 10:36 97.6 16 96.0 97.6 08/16/21 07:00 97 Physical Exam Physical Exam: GENERAL: Alert, oriented x 3 female lying in bed, lethargic, weak, slow to speak HEENT: Normocephalic, atraumatic. Anicteric sclerae. No thrush. Oral mucosa moist. NECK: Supple. LUNGS: Clear. power picc is out HEART: S1, S2, No murmurs. ABDOMEN: Nondistended, G-tube and J-tubes present. BS + EXTREMITIES: No edema. DERMATOLOGIC: Warm, dry, no generalized rash. NEUROLOGIC: nonfocal, not anxious. PSYCHIATRIC: calm cooperative, General: Alert, Cooperative, No acute distress Heart: Regular rate Lungs: Clear Abdomen: Soft Labs Labs: Laboratory Tests Test 08/16/21 07:35 Creatine Kinase 17 U/L (26-192) Comment Review of Relevant I have reviewed the following items lalo (where applicable) has been applied. Medications: Current Medications Medications (Trade) Dose Ordered Sig/Kel Route PRN Reason Start Time Stop Time Status Last Admin Dose Admin Dextrose/Sodium Chloride 1,000 ml @ 100 mls/hr Q10H IV 08/16/21 12:30 08/16/21 12:43 Justifications for Admission Other Justification Fever KRISTEN ESPAÑA MD Aug 16, 2021 12:51
[2021-08-16] MEDS: DAPTOmycin (GENERIC) IVPB 490 MG in IV NORMAL SALINE 50ML 50 ML IV SCH (14:23)
[2021-08-16] MEDS: POTASSIUM CL 20MEQ D5-0.45NACL 1,000 ML IV SCH (14:23)
[2021-08-16 15:05] VITALS: BP 131/81
[2021-08-16 19:00] VITALS: BP 147/87
[2021-08-16 23:40] VITALS: BP 154/98
[2021-08-17] VITALS (8 sets, daily range): BP systolic 100–158; BP diastolic 69–97
[2021-08-17] MEDS: POTASSIUM CL 20MEQ D5-0.45NACL 1,000 ML IV SCH ×3 (00:27→22:24)
[2021-08-17] MEDS: MIDODRINE 5 MG TABLET PO SCH ×3 (07:00→16:47)
[2021-08-17] MEDS: HYDROmorphone 2 MG/ML INJ. IVP PRN ×7 (07:09→22:20)
[2021-08-17] MEDS: CEFEPIME HCL IV Push 2 GM VIAL. IVP SCH ×2 (08:28→21:59)
[2021-08-17] MEDS: FAMOTIDINE 20 MG/2 ML VIAL IVP SCH ×2 (08:28→21:59)
[2021-08-17] MEDS: diphenhydrAMINE 50 MG/ML VIAL IVP PRN ×2 (08:34→17:41)
[2021-08-17] MEDS: ONDANSETRON PF 4 MG/2 ML VIAL. IVP PRN ×2 (08:37→17:41)
[2021-08-17 08:38] LABS: BASO % 0 % (0-3); EOS # 0.1 x10^3/uL (0.0-0.7); EOS % 1 % (0-3); HEMATOCRIT 30.4 % (36.0-47.0); HEMOGLOBIN 10.2 g/dL (12.0-15.5); LYMPH # 1.5 x10^3/uL (1.0-4.8); LYMPH % 31 % (24-48); MEAN CORPUSCULAR HEMOGLOBIN 29 pg (25-35); MEAN CORPUSCULAR HGB CONC 34 g/dL (31-37); MEAN CORPUSCULAR VOLUME 87 fL (79-100); MONO # 0.2 x10^3/uL (0.0-1.1); MONO % 5 % (0-9); NEUT % 62 % (31-73); PLATELET COUNT 262 x10^3/uL (140-400); RED BLOOD COUNT 3.51 x10^6/uL (3.50-5.40); RED CELL DISTRIBUTION WIDTH 23.1 % (11.5-14.5); WHITE BLOOD COUNT 4.7 x10^3/uL (4.0-11.0)
[2021-08-17 09:06] LABS: ALBUMIN 3.4 g/dL (3.4-5.0); CALCIUM 8.9 mg/dL (8.5-10.1); CREATININE 0.4 mg/dL (0.6-1.0); GFR 197.8; POTASSIUM 3.5 mmol/L (3.5-5.1); TOTAL BILIRUBIN 0.4 mg/dL (0.2-1.0); TOTAL PROTEIN 6.8 g/dL (6.4-8.2)
[2021-08-17 11:23] LABS: % BANDS 1 % (0-9); % EOS 1 % (0-5); % LYMPHS 25 % (24-48); % MONOS 5 % (0-10); % SEGS 68 % (35-66); PLT ESTIMATE ADEQUATE (ADEQUATE)
--- NOTE | 2021-08-17 11:53 | PDOC ---
Infectious Disease Note Subjective Subjective pt is feeling good ROS ROS no n/v/d/sob Vital Sign Vital Signs Vital Signs Date Time Temp Pulse Resp B/P (MAP) Pulse Ox O2 Delivery O2 Flow Rate FiO2 08/17/21 11:04 97.9 73 18 112/79 (90) 95 Room Air 97.9 08/16/21 10:36 96.0 Physical Exam PHYSICAL EXAM GENERAL: Alert, oriented x 3 female lying in bed, HEENT: Normocephalic, atraumatic. Anicteric sclerae. No thrush. Oral mucosa moist. NECK: Supple. LUNGS: Clear. power picc is out HEART: S1, S2, No murmurs. ABDOMEN: Nondistended, G-tube and J-tubes present. BS + EXTREMITIES: No edema. DERMATOLOGIC: Warm, dry, no generalized rash. NEUROLOGIC: nonfocal, not anxious. PSYCHIATRIC: calm cooperative, Labs Lab Laboratory Tests Test 08/17/21 08:00 White Blood Count 4.7 x10^3/uL (4.0-11.0) Red Blood Count 3.51 x10^6/uL (3.50-5.40) Hemoglobin 10.2 g/dL (12.0-15.5) Hematocrit 30.4 % (36.0-47.0) Mean Corpuscular Volume 87 fL (79-100) Mean Corpuscular Hemoglobin 29 pg (25-35) Mean Corpuscular Hemoglobin Concent 34 g/dL (31-37) Red Cell Distribution Width 23.1 % (11.5-14.5) Platelet Count 262 x10^3/uL (140-400) Neutrophils (%) (Auto) 62 % (31-73) Lymphocytes (%) (Auto) 31 % (24-48) Monocytes (%) (Auto) 5 % (0-9) Eosinophils (%) (Auto) 1 % (0-3) Basophils (%) (Auto) 0 % (0-3) Neutrophils # (Auto) 3.0 x10^3/uL (1.8-7.7) Lymphocytes # (Auto) 1.5 x10^3/uL (1.0-4.8) Monocytes # (Auto) 0.2 x10^3/uL (0.0-1.1) Eosinophils # (Auto) 0.1 x10^3/uL (0.0-0.7) Basophils # (Auto) 0.0 x10^3/uL (0.0-0.2) Segmented Neutrophils % 68 % (35-66) Band Neutrophils % 1 % (0-9) Lymphocytes % 25 % (24-48) Monocytes % 5 % (0-10) Eosinophils % 1 % (0-5) Platelet Estimate Adequate (ADEQUATE) Sodium Level 139 mmol/L (136-145) Potassium Level 3.5 mmol/L (3.5-5.1) Chloride Level 103 mmol/L (98-107) Carbon Dioxide Level 25 mmol/L (21-32) Anion Gap 11 (6-14) Blood Urea Nitrogen 3 mg/dL (7-20) Creatinine 0.4 mg/dL (0.6-1.0) Estimated GFR (Cockcroft-Gault) 197.8 BUN/Creatinine Ratio 8 (6-20) Glucose Level 92 mg/dL (70-99) Calcium Level 8.9 mg/dL (8.5-10.1) Total Bilirubin 0.4 mg/dL (0.2-1.0) Aspartate Amino Transf (AST/SGOT) 15 U/L (15-37) Alanine Aminotransferase (ALT/SGPT) 17 U/L (14-59) Alkaline Phosphatase 121 U/L (46-116) Total Protein 6.8 g/dL (6.4-8.2) Albumin 3.4 g/dL (3.4-5.0) Albumin/Globulin Ratio 1.0 (1.0-1.7) Micro BLOOD CULTURE Final YEAST FINAL ID= LAURA KRUSEI NO FURTHER WORKUP GRAM POSITIVE COCCI FINAL ID= STAPHYLOCOCCUS EPIDERMIDIS Growth of organism in only one of multiple sets; isolation does not necessarily indicate infection. Contact Microbiology Lab if further testing is clinically warranted. Testing performed by [address] [address] director of search engine marketing: Corrie Abdullahi MD Objective Assessment Assessment: 1. Abdominal pain acute on chronic 2. Recent Klebsiella pneumonia bacteremia present, 3. Recent Enterococcus faecium amp resistant UTI. History of self- catheterization intermittently 4. Acute on chronic abdominal pain History of gastroparesis. G tube , Two J tubes.Mild Irritation. TPN through central line. 5. Hypertension. 6. History of migraines and seizures. 7. History of anxiety and depression. 8. History of urinary retention, status post Carrillo intermittently, urinary tract infection. 9. 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 10. Transaminitis, chronic, on TPN. 11. Chronic abdominal pain. 12. History of multiple J-tube exchanges. 13. HISTORY OF ALLERGIES TO SULFA AND PENICILLIN WITH NAUSEA AND VOMITING AND RASH, has tolerated Rocephin and meropenem. 14. COVID positive May 25 and June 14 admission 15. Status post Port-A-Cath removal May 2021 16. Power PICC placed June 13 last week 17. 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 pt has 2 dogs and a cat, who sleeps with her, she was recommended to not have them Pain management per primary Continue local care of two J-tubes and G-tube. Continue supportive care. also micafungin Repeat blood cultures so far negative kleb has been treated, coag neg staph only one bottle, ok to place line and d/c on micafungin ISAAC RODRIGUEZ MD Aug 17, 2021 11:53
[2021-08-17] MEDS: MICAFUNGIN 100 MG in IV DEXTROSE 5% 100ML 100 ML IV SCH (12:06)
[2021-08-17] MEDS ORDERED: LIDOCAINE 1%/EPI 1:100,000 20 ML VIAL. ONE (13:31)
[2021-08-17] MEDS ORDERED: HEPARIN PF 500 UNIT/5 ML DISP.SYRIN. IVP ONE ×2 (13:31→14:00)
[2021-08-17] MEDS ORDERED: fentaNYL PF VIAL 100 MCG/2 ML VIAL ONE (13:39)
[2021-08-17] MEDS ORDERED: MIDAZOLAM HCL/PF 2 MG/2 ML VIAL. ONE (13:39)
[2021-08-17] MEDS ORDERED: VANCOMYCIN 1 GM in IV NORMAL SALINE 250ML 250 ML IV ONE (13:45)
[2021-08-17] MEDS: DAPTOmycin (GENERIC) IVPB 490 MG in IV NORMAL SALINE 50ML 50 ML IV SCH (13:52)
[2021-08-17] MEDS ORDERED: fentaNYL PF VIAL 100 MCG/2 ML VIAL IV ONE (14:00)
[2021-08-17] MEDS ORDERED: LIDOCAINE 1%/EPI 1:100,000 20 ML VIAL. INJ ONE (14:00)
[2021-08-17] MEDS ORDERED: MIDAZOLAM HCL/PF 2 MG/2 ML VIAL. IV ONE (14:00)
--- NOTE | 2021-08-17 14:47 | PDOC ---
[facility] [facility] PROGRESS NOTE Date of Service DOS: DATE: 08/17/21 TIME: 14:45 Chief Complaint Chief Complaint sepsis, POA bacterial central line infection, recurrent, lack of access chronically for TPN fungemia abdominal pain, swelling, diarrhea, Gram Negative Steven bacteremia gastroparesis, G tube and J tube anxiety and depression History of Present Illness History of Present Illness 08/17: Patient afebrile. She is having a central venous line replaced today to resume TPN. Afterwards she will discharge on micafungin until 08/27/2021. Will prepare discharge accordingly. Greater than 30 minutes spent managing the discharge this patient. 08/16, ID following may have new central line tomrrow to resume TPN on D5 half cont micafungin for the fungemia 08/15, some nausea this AM, did vomit, Zofran given , feels stronger, doing better, pain OK, nausea better gastric output better with pepcid dosing, cont current replace line with ID - plan tuesday, then DC plan Vitals/I&O Vitals/I&O: Vital Signs Date Time Temp Pulse Resp B/P (MAP) Pulse Ox O2 Delivery O2 Flow Rate FiO2 08/17/21 14:14 64 19 100 Nasal Cannula 2.0 08/17/21 11:04 97.9 112/79 (90) 97.9 Physical Exam Physical Exam: GENERAL: Alert, oriented x 3 female lying in bed, HEENT: Normocephalic, atraumatic. Anicteric sclerae. No thrush. Oral mucosa moist. NECK: Supple. LUNGS: Clear. HEART: S1, S2, No murmurs. ABDOMEN: Nondistended, G-tube and J-tubes present. BS + EXTREMITIES: No edema. DERMATOLOGIC: Warm, dry, no generalized rash. NEUROLOGIC: nonfocal, not anxious. PSYCHIATRIC: calm cooperative, General: Alert, Cooperative, No acute distress Heart: Regular rate Lungs: Clear Abdomen: Soft Extremities: No cyanosis Skin: Other (Central catheter in place to right upper chest wall.) Labs Labs: Laboratory Tests Test 08/17/21 08:00 White Blood Count 4.7 x10^3/uL (4.0-11.0) Red Blood Count 3.51 x10^6/uL (3.50-5.40) Hemoglobin 10.2 g/dL (12.0-15.5) Hematocrit 30.4 % (36.0-47.0) Mean Corpuscular Volume 87 fL (79-100) Mean Corpuscular Hemoglobin 29 pg (25-35) Mean Corpuscular Hemoglobin Concent 34 g/dL (31-37) Red Cell Distribution Width 23.1 % (11.5-14.5) Platelet Count 262 x10^3/uL (140-400) Neutrophils (%) (Auto) 62 % (31-73) Lymphocytes (%) (Auto) 31 % (24-48) Monocytes (%) (Auto) 5 % (0-9) Eosinophils (%) (Auto) 1 % (0-3) Basophils (%) (Auto) 0 % (0-3) Neutrophils # (Auto) 3.0 x10^3/uL (1.8-7.7) Lymphocytes # (Auto) 1.5 x10^3/uL (1.0-4.8) Monocytes # (Auto) 0.2 x10^3/uL (0.0-1.1) Eosinophils # (Auto) 0.1 x10^3/uL (0.0-0.7) Basophils # (Auto) 0.0 x10^3/uL (0.0-0.2) Segmented Neutrophils % 68 % (35-66) Band Neutrophils % 1 % (0-9) Lymphocytes % 25 % (24-48) Monocytes % 5 % (0-10) Eosinophils % 1 % (0-5) Platelet Estimate Adequate (ADEQUATE) Sodium Level 139 mmol/L (136-145) Potassium Level 3.5 mmol/L (3.5-5.1) Chloride Level 103 mmol/L (98-107) Carbon Dioxide Level 25 mmol/L (21-32) Anion Gap 11 (6-14) Blood Urea Nitrogen 3 mg/dL (7-20) Creatinine 0.4 mg/dL (0.6-1.0) Estimated GFR (Cockcroft-Gault) 197.8 BUN/Creatinine Ratio 8 (6-20) Glucose Level 92 mg/dL (70-99) Calcium Level 8.9 mg/dL (8.5-10.1) Total Bilirubin 0.4 mg/dL (0.2-1.0) Aspartate Amino Transf (AST/SGOT) 15 U/L (15-37) Alanine Aminotransferase (ALT/SGPT) 17 U/L (14-59) Alkaline Phosphatase 121 U/L (46-116) Total Protein 6.8 g/dL (6.4-8.2) Albumin 3.4 g/dL (3.4-5.0) Albumin/Globulin Ratio 1.0 (1.0-1.7) Comment Review of Relevant I have reviewed the following items lalo (where applicable) has been applied. Medications: Current Medications Medications (Trade) Dose Ordered Sig/Kel Route PRN Reason Start Time Stop Time Status Last Admin Dose Admin Vancomycin HCl 1 gm/Sodium Chloride 250 ml @ 250 mls/hr 1X ONCE IV 08/17/21 13:45 08/17/21 14:44 DC 08/17/21 13:45 Midazolam HCl (Versed) 2 mg 1X ONCE IV 08/17/21 14:00 08/17/21 14:04 DC 08/17/21 14:12 Fentanyl Citrate (Fentanyl 2ml Vial) 100 mcg 1X ONCE IV 08/17/21 14:00 08/17/21 14:04 DC 08/17/21 14:11 Lidocaine/ Epinephrine (LIDOCAINE 1%-EPI 1:100,000 Multi-Dose) 20 ml 1X ONCE INJ 08/17/21 14:00 08/17/21 14:04 DC 08/17/21 14:11 Heparin Sodium (Porcine) (Hep Lock Adult) 500 unit 1X ONCE IVP 08/17/21 14:00 08/17/21 14:04 DC 08/17/21 14:13 Justifications for Admission Other Justification Fever ALE JONES MD Aug 17, 2021 14:47
--- NOTE | 2021-08-17 15:00 | PDOC3 ---
Discharge Summary Visit Information Date of Admission: Aug 05, 2021 Date of Discharge: Aug 17, 2021 Brief Hospital Course Allergies Allergies Coded Allergies Type Severity Reaction Last Updated Verified iron Allergy Severe Anaphylaxis 07/31/21 Yes Penicillins Allergy Intermediate LIGHT RASH CHILD 07/31/21 Yes Sulfa (Sulfonamide Antibiotics) Allergy Intermediate 07/31/21 Yes I S O L A T I O N *CONTACT* Allergy Unknown 07/31/21 Yes Vital Signs Vital Signs Date Time Temp Pulse Resp B/P (MAP) Pulse Ox O2 Delivery O2 Flow Rate FiO2 08/17/21 14:14 64 19 100 Nasal Cannula 2.0 08/17/21 11:04 97.9 112/79 (90) 97.9 Lab Results Laboratory Tests Test 08/16/21 07:35 08/17/21 08:00 Creatine Kinase 17 U/L (26-192) White Blood Count 4.7 x10^3/uL (4.0-11.0) Red Blood Count 3.51 x10^6/uL (3.50-5.40) Hemoglobin 10.2 g/dL (12.0-15.5) Hematocrit 30.4 % (36.0-47.0) Mean Corpuscular Volume 87 fL (79-100) Mean Corpuscular Hemoglobin 29 pg (25-35) Mean Corpuscular Hemoglobin Concent 34 g/dL (31-37) Red Cell Distribution Width 23.1 % (11.5-14.5) Platelet Count 262 x10^3/uL (140-400) Neutrophils (%) (Auto) 62 % (31-73) Lymphocytes (%) (Auto) 31 % (24-48) Monocytes (%) (Auto) 5 % (0-9) Eosinophils (%) (Auto) 1 % (0-3) Basophils (%) (Auto) 0 % (0-3) Neutrophils # (Auto) 3.0 x10^3/uL (1.8-7.7) Lymphocytes # (Auto) 1.5 x10^3/uL (1.0-4.8) Monocytes # (Auto) 0.2 x10^3/uL (0.0-1.1) Eosinophils # (Auto) 0.1 x10^3/uL (0.0-0.7) Basophils # (Auto) 0.0 x10^3/uL (0.0-0.2) Segmented Neutrophils % 68 % (35-66) Band Neutrophils % 1 % (0-9) Lymphocytes % 25 % (24-48) Monocytes % 5 % (0-10) Eosinophils % 1 % (0-5) Platelet Estimate Adequate (ADEQUATE) Sodium Level 139 mmol/L (136-145) Potassium Level 3.5 mmol/L (3.5-5.1) Chloride Level 103 mmol/L (98-107) Carbon Dioxide Level 25 mmol/L (21-32) Anion Gap 11 (6-14) Blood Urea Nitrogen 3 mg/dL (7-20) Creatinine 0.4 mg/dL (0.6-1.0) Estimated GFR (Cockcroft-Gault) 197.8 BUN/Creatinine Ratio 8 (6-20) Glucose Level 92 mg/dL (70-99) Calcium Level 8.9 mg/dL (8.5-10.1) Total Bilirubin 0.4 mg/dL (0.2-1.0) Aspartate Amino Transf (AST/SGOT) 15 U/L (15-37) Alanine Aminotransferase (ALT/SGPT) 17 U/L (14-59) Alkaline Phosphatase 121 U/L (46-116) Total Protein 6.8 g/dL (6.4-8.2) Albumin 3.4 g/dL (3.4-5.0) Albumin/Globulin Ratio 1.0 (1.0-1.7) Laboratory Tests Test 08/17/21 08:00 White Blood Count 4.7 x10^3/uL (4.0-11.0) Red Blood Count 3.51 x10^6/uL (3.50-5.40) Hemoglobin 10.2 g/dL (12.0-15.5) Hematocrit 30.4 % (36.0-47.0) Mean Corpuscular Volume 87 fL (79-100) Mean Corpuscular Hemoglobin 29 pg (25-35) Mean Corpuscular Hemoglobin Concent 34 g/dL (31-37) Red Cell Distribution Width 23.1 % (11.5-14.5) Platelet Count 262 x10^3/uL (140-400) Neutrophils (%) (Auto) 62 % (31-73) Lymphocytes (%) (Auto) 31 % (24-48) Monocytes (%) (Auto) 5 % (0-9) Eosinophils (%) (Auto) 1 % (0-3) Basophils (%) (Auto) 0 % (0-3) Neutrophils # (Auto) 3.0 x10^3/uL (1.8-7.7) Lymphocytes # (Auto) 1.5 x10^3/uL (1.0-4.8) Monocytes # (Auto) 0.2 x10^3/uL (0.0-1.1) Eosinophils # (Auto) 0.1 x10^3/uL (0.0-0.7) Basophils # (Auto) 0.0 x10^3/uL (0.0-0.2) Segmented Neutrophils % 68 % (35-66) Band Neutrophils % 1 % (0-9) Lymphocytes % 25 % (24-48) Monocytes % 5 % (0-10) Eosinophils % 1 % (0-5) Platelet Estimate Adequate (ADEQUATE) Sodium Level 139 mmol/L (136-145) Potassium Level 3.5 mmol/L (3.5-5.1) Chloride Level 103 mmol/L (98-107) Carbon Dioxide Level 25 mmol/L (21-32) Anion Gap 11 (6-14) Blood Urea Nitrogen 3 mg/dL (7-20) Creatinine 0.4 mg/dL (0.6-1.0) Estimated GFR (Cockcroft-Gault) 197.8 BUN/Creatinine Ratio 8 (6-20) Glucose Level 92 mg/dL (70-99) Calcium Level 8.9 mg/dL (8.5-10.1) Total Bilirubin 0.4 mg/dL (0.2-1.0) Aspartate Amino Transf (AST/SGOT) 15 U/L (15-37) Alanine Aminotransferase (ALT/SGPT) 17 U/L (14-59) Alkaline Phosphatase 121 U/L (46-116) Total Protein 6.8 g/dL (6.4-8.2) Albumin 3.4 g/dL (3.4-5.0) Albumin/Globulin Ratio 1.0 (1.0-1.7) Brief Hospital Course Ms. Mustafa is a 21 old female who presented with: Acute on chronic abdominal pain, recent Klebsiella pneumonia bacteremia, fungemia, Enterobacter UTI, history of self-catheterization, history of gastroparesis. Consultations placed to ID. She was treated with IV cefepime and IV micafungin. After her central catheter was replaced she was stable for discharge home with self-care. Discharge Information Condition at Discharge: Improved Disposition/Orders: D/C to Home Scheduled Diphenhydramine Hcl (Benadryl) 25 Mg Capsule, 2 CAP PO QHS for N for 30 Days, #60 Ref 0 (Reported) Entered as Reported by: AZIZA SANCHEZ on 07/14/21 1019 Fluticasone/Salmeterol (Advair 250-50 Diskus) 1 Each Disk.w.dev, 1 PUFF IH BID for ASTHMA, #3 Ref 3 (Reported) Entered as Reported by: AZIZA SANCHEZ on 07/14/21 1016 Fremanezumab-Vfrm (Ajovy Autoinjector) 225 Mg/1.5 Ml Auto.injct, 225 MG SQ QMONTH for migraine, (Reported) Entered as Reported by: RAMSES BANDA on 05/23/20 2248 Gabapentin (Gabapentin) 600 Mg Tablet, 300 MG JT TID for NEUROGENIC PAIN, (Reported) Entered as Reported by: YAMILETH TALAMANTES on 05/21/20 1232 Hyoscyamine Sulfate (Levbid) 0.375 Mg Tab.er.12h, 0.375 MG JT BID for REFLUX, (Reported) Entered as Reported by: BUTSER MCCOLLUM on 11/14/20 0930 Ipratropium [place] (Ipratropium [place]) 30 Ml [place], 1 SPRAY NS BID for allergies, (Reported) Entered as Reported by: BUSTER MCCOLLUM on 08/20/19 1219 Linezolid (Linezolid-D5w) 600 Mg/300 Ml Piggyback, 600 MG IV BID for Enterococcus UTI for 5 Days, #10 Prescribed by: ABIGAIL GARCIA MD on 07/20/21 1331 Metoprolol Tartrate (Metoprolol Tartrate) 75 Mg Tablet, 25 MG PO BID for HEADACHES, (Reported) Entered as Reported by: BUSTER MCCOLLUM on 11/14/20 0930 Olanzapine (Zyprexa) 5 Mg Tablet, 1 TAB PO QHS for psych, #30 Ref 1 (Reported) Entered as Reported by: JAEML PANDA on 08/06/21 1433 Last Taken: Unknown Dose on 08/04/21 1900 Last Action: Continued on 1439 by JAMEL PANDA Scopolamine (Transderm-Scop) 1 Each Patch.td72, 1 PATCH TP Q3DAYS, #4 Prescribed by: LEXII CARRANZA DO on 02/24/21 1859 Umeclidinium [place] (Incruse Ellipta) 62.5 Mcg Blst.w.dev, 62.5 MCG IH DAILY for ASTHMA, (Reported) Entered as Reported by: AZIZA SANCHEZ on 07/14/21 1016 Valproate Sodium (Valproic Acid) 500 Mg/10 Ml Solution, 500 MG JT BID for TREMORS/SHAKING, (Reported) Entered as Reported by: BUSTER MCCOLLUM on 11/14/20 0939 [Ceftriaxone Sodium] 2 GM VIAL, 2 GM IVP Q24H for Klebsiella bacteremia for 10 Days, #10 Prescribed by: ABIGAIL GARCIA MD on 07/20/21 1331 Scheduled PRN Albuterol Sulfate (Proair Hfa) 8.5 Gm Hfa.aer.ad, 2 PUFF IH PRN Q4-6HRS PRN for wheezing for 21 Days, #1 Ref 0 (Reported) Entered as Reported by: BUSTER MCCOLLUM on 08/20/19 1219 Bisacodyl (Bisacodyl) 10 Mg Supp.rect, 10 MG DE PRN DAILY PRN for CONSTIPATION, 1sT CHOICE for 30 Days, #30 Prescribed by: JEFFERSON XAVIER MD on 11/30/19 1614 Hydrocodone Bit/Acetaminophen (Hydrocodone-Apap 7.5-325/15 Soln ) 15 Ml Solution, 15 ML PO PRN Q6HRS PRN for PAIN, #225 Ref 0 Prescribed by: KRISTEN ESPAÑA on 03/05/21 1504 Ipratropium/Albuterol Sulfate (Duoneb 0.5-3(2.5) Mg/3 Ml) 3 Ml Ampul.neb, 3 ML NEB PRN QID PRN for asthma, (Reported) Entered as Reported by: BUSTER MCCOLLUM on 08/20/19 1218 Montelukast Sodium (Montelukast Sodium Tablet ) 10 Mg Tablet, 10 MG PO DAILY PRN for asthma, Ref 0 (Reported) Entered as Reported by: BUSTER MCCOLLUM on 08/20/19 1218 Olopatadine HCl (Olopatadine HCl) 5 Ml Drops, 0.1 % OP PRN DAILY PRN for eye relief, (Reported) Entered as Reported by: BUSTER MCCOLLUM on 08/20/19 1219 Ondansetron Hcl/Pf (Ondansetron Hcl 4 Mg/2 Ml Vial) 4 Mg/2 Ml Vial, 4 MG IVP PRN Q6HRS PRN for NAUSEA/VOMITING 1ST CHOICE for 30 Days, #90 Prescribed by: JEFFERSON XAVIER MD on 11/30/19 1614 Tizanidine Hcl (Tizanidine Hcl) 2 Mg Capsule, 2 MG JT Q8HRS PRN for MUSCLE SPASMS, (Reported) Entered as Reported by: RAMSES BANDA on 05/23/20 8918 [Tpn Per Pharmacy] 1 EACH EACH, 1 EACH MC PRN DAILY PRN for SEE COMMENTS for 30 Days, #60 Prescribed by: JEFFERSON XAVIER MD on 01/25/21 1247 Justicifation of Admission Dx: Justifications for Admission: Justification of Admission Dx: Yes Sepsis: Bacteremia ALE JONES MD Aug 17, 2021 15:00
[2021-08-18] MEDS: diphenhydrAMINE 50 MG/ML VIAL IVP PRN ×2 (00:27→06:40)
[2021-08-18] MEDS: ONDANSETRON PF 4 MG/2 ML VIAL. IVP PRN ×2 (00:28→06:40)
[2021-08-18] MEDS: HYDROmorphone 2 MG/ML INJ. IVP PRN ×6 (00:31→12:37)
[2021-08-18 03:00] VITALS: BP 122/79
[2021-08-18 07:00] VITALS: BP 109/76
[2021-08-18] MEDS: MIDODRINE 5 MG TABLET PO SCH (07:00)
[2021-08-18] MEDS: POTASSIUM CL 20MEQ D5-0.45NACL 1,000 ML IV SCH (08:30)
[2021-08-18] MEDS: CEFEPIME HCL IV Push 2 GM VIAL. IVP SCH (08:34)
[2021-08-18] MEDS: FAMOTIDINE 20 MG/2 ML VIAL IVP SCH (08:34)
--- NOTE | 2021-08-18 09:24 | SNU/HH DC ---
DISCHARGE WITH HOME HEALTH DISCHARGE INFORMATION: Discharge Date: Aug 18, 2021 Condition on Discharge: Guarded CODE STATUS: Code Status: Full HOME HEALTH: Face to Face: I certify this patient is under my care and that I, or a nurse practitioner or physician's client services assistant working with me, had a face to face encounter that meets the physician face to face encounter requirements with this patient on 08/18/21. RN For Eval/Treatment: Yes Pt Meets Homebound Status: Extreme weakness w/ amb., Fatigue w/ amb. POST DISCHARGE ORDERS: Activity Instructions for Disc: Activity as tolerated Weight Bearing Status after Di: As tolerated Bathing Instructions: No Tub Bath until see DIET AFTER DISCHARGE: NPO Wound/Incision Care: No wound care needed CHECKS AFTER DISCHARGE: Checks after discharge: Check your Temp as needed Comment: IJ/chest- tunneled powerline FOLLOW-UP: Additional Instructions: TPN FORMULA: TPN TYPE: Central Cyclic AMINO ACIDS: 82 gm DEXTROSE: 205 gm LIPIDS: 50 GM MWF gm SODIUM CHLORIDE: 75 mEq SODIUM ACETATE: mEq SODIUM PHOSPHATE: mmol POTASSIUM CHLORIDE: 50 mEq POTASSIUM ACETATE: mEq POTASSIUM PHOSPHATE: mmol MAGNESIUM: 36 mEq CALCIUM: 5 mEq INSULIN: units MULTIPLE VITAMIN: 10 ml TRACE ELEMENTS: 1 ml(s) TPN PLAN: CONT TPN FORMULA FROM HOME. LIPID MWF. R: Continue TPN TRO 12HRS WITH 1HR UP AND 1HR DOWN. Labs weekly CMP, Triglycerides to Dr. Santana [id number] [place] [address] TREATMENT/EQUIPMENT ORDERS: Adaptive Equipment Issued: None CERTIFICATION STATEMENT: Certification Statement: Certification Statement: Based on the above finding, I certify that this patient is confined to the home and needs intermittent group home care, physical therapy and/or speech therapy, or continues to need occupational therapy.~ This patient is under my care, and I have initiated the establishment of the plan of care.~ This patient will be followed by myself or a community physician who will periodically review the plan of care. Home Meds Active Scripts Hydrocodone Bit/Acetaminophen (HYDROCODONE-APAP 7.5-325/15 SOLN ) 15 Ml Solution, 15 ML PO PRN Q6HRS PRN for PAIN, #225 ML 0 Refills Prov:KRISTEN ESPAÑA MD 03/05/21 Scopolamine (TRANSDERM-SCOP) 1 Each Patch.td72, 1 PATCH TP Q3DAYS, #4 PATCH Prov:LEXII CARRANZA DO 02/24/21 [Tpn Per Pharmacy] 1 EACH EACH No Conflict Check, 1 EACH MC PRN DAILY PRN for SEE COMMENTS for 30 Days, #60 Prov:JEFFERSON XAVIER MD 01/25/21 Ondansetron Hcl/Pf (ONDANSETRON HCL 4 MG/2 ML VIAL) 4 Mg/2 Ml Vial, 4 MG IVP PRN Q6HRS PRN for NAUSEA/VOMITING 1ST CHOICE for 30 Days, #90 EACH Prov:JEFFERSON XAVIER MD 11/30/19 Bisacodyl (BISACODYL) 10 Mg Supp.rect, 10 MG RI PRN DAILY PRN for CONSTIPATION, 1sT CHOICE for 30 Days, #30 SUPP.RECT Prov:JEFFERSON XAVIER MD 11/30/19 Reported Medications Olanzapine (ZYPREXA) 5 Mg Tablet, 1 TAB PO QHS for psych, #30 TAB 1 Refill 08/06/21 Diphenhydramine Hcl (BENADRYL) 25 Mg Capsule, 2 CAP PO QHS for N for 30 Days, #60 CAP 0 Refills 07/14/21 Umeclidinium [place] (Incruse Ellipta) 62.5 Mcg Blst.w.dev, 62.5 MCG IH DAILY for ASTHMA 07/14/21 Fluticasone/Salmeterol (ADVAIR 250-50 DISKUS) 1 Each Disk.w.dev, 1 PUFF IH BID for ASTHMA, #3 INHALER 3 Refills 07/14/21 Valproate Sodium (VALPROIC ACID) 500 Mg/10 Ml Solution, 500 MG JT BID for TREMORS/SHAKING, MISC 11/14/20 Metoprolol Tartrate (Metoprolol Tartrate) 75 Mg Tablet, 25 MG PO BID for HEADACHES, TAB 11/14/20 Hyoscyamine Sulfate (LEVBID) 0.375 Mg Tab.er.12h, 0.375 MG JT BID for REFLUX, TAB.SR 11/14/20 Fremanezumab-Vfrm (Ajovy Autoinjector) 225 Mg/1.5 Ml Auto.injct, 225 MG SQ QMONTH for migraine, SYR 05/23/20 Tizanidine Hcl (TIZANIDINE HCL) 2 Mg Capsule, 2 MG JT Q8HRS PRN for MUSCLE SPASMS, CAP 05/23/20 Gabapentin (GABAPENTIN) 600 Mg Tablet, 300 MG JT TID for NEUROGENIC PAIN, TAB 05/21/20 Olopatadine HCl (Olopatadine HCl) 5 Ml Drops, 0.1 % OP PRN DAILY PRN for eye relief, DROP 08/20/19 Albuterol Sulfate (Proair Hfa) 8.5 Gm Hfa.aer.ad, 2 PUFF IH PRN Q4-6HRS PRN for wheezing for 21 Days, #1 INHALER 0 Refills 08/20/19 Ipratropium [place] (IPRATROPIUM BROMIDE) 30 Ml [place], 1 SPRAY NS BID for allergies, SPRAY 08/20/19 Ipratropium/Albuterol Sulfate (DUONEB 0.5-3(2.5) MG/3 ML) 3 Ml Ampul.neb, 3 ML NEB PRN QID PRN for asthma, EACH 08/20/19 Montelukast Sodium (MONTELUKAST SODIUM TABLET ) 10 Mg Tablet, 10 MG PO DAILY PRN for asthma, TAB 0 Refills 08/20/19 Discontinued Scripts Linezolid (Linezolid-D5w) 600 Mg/300 Ml Piggyback, 600 MG IV BID for Enterococcus UTI for 5 Days, #10 EACH Prov:ABIGAIL GARCIA MD 07/20/21 [cefTRIAXone IV Push] 2 GM VIAL No Conflict Check, 2 GM IVP Q24H for Klebsiella bacteremia for 10 Days, #10 EACH Prov:ABIGAIL GARCIA MD 07/20/21 ALE JONES MD Aug 18, 2021 09:24
[2021-08-18 10:29] LABS: BASO % 0 % (0-3); EOS # 0.1 x10^3/uL (0.0-0.7); EOS % 2 % (0-3); HEMATOCRIT 30.7 % (36.0-47.0); HEMOGLOBIN 10.4 g/dL (12.0-15.5); LYMPH # 1.5 x10^3/uL (1.0-4.8); LYMPH % 46 % (24-48); MEAN CORPUSCULAR HEMOGLOBIN 30 pg (25-35); MEAN CORPUSCULAR HGB CONC 34 g/dL (31-37); MEAN CORPUSCULAR VOLUME 87 fL (79-100); MONO # 0.2 x10^3/uL (0.0-1.1); MONO % 7 % (0-9); NEUT # 1.5 x10^3/uL (1.8-7.7); NEUT % 45 % (31-73); PLATELET COUNT 274 x10^3/uL (140-400); RED BLOOD COUNT 3.52 x10^6/uL (3.50-5.40); RED CELL DISTRIBUTION WIDTH 23.6 % (11.5-14.5); WHITE BLOOD COUNT 3.4 x10^3/uL (4.0-11.0)
[2021-08-18 10:46] LABS: ALBUMIN 3.5 g/dL (3.4-5.0); CALCIUM 9.1 mg/dL (8.5-10.1); CREATININE 0.6 mg/dL (0.6-1.0); GFR 123.9; MAGNESIUM 1.7 mg/dL (1.8-2.4); PHOSPHORUS 4.7 mg/dL (2.6-4.7); POTASSIUM 3.9 mmol/L (3.5-5.1); TOTAL BILIRUBIN 0.4 mg/dL (0.2-1.0); TOTAL PROTEIN 6.9 g/dL (6.4-8.2)
[2021-08-18 11:00] VITALS: BP 108/69
--- NOTE | 2021-08-18 11:49 | RAD ---
Procedure: Tunneled central venous catheter placement. Physicians: Dr. Griffin. Indication: Adult female requiring long-term venous access for antibiotics Sedation: Conscious sedation using a combination of Versed and fentanyl was provided for 39 minutes, including continuous monitoring of the patients heart rate, rhythm, blood pressure, oxygen saturation and level of arousability by a trained independent observer. Exposure: Kerma-Area Product: 1 Gycm2 Sterility: All elements of maximal sterile barrier technique including the use of a cap, mask, steril e gown, sterile gloves, large sterile sheet, appropriate hand hygiene and 2% chlorhexidine for cutane ous antisepsis (or acceptable alternative antiseptic per current guidelines) were followed for this p rocedure. Technique and Findings: Following informed consent, the patient was prepped and draped in the usual s terile fashion. All elements of maximum sterile barrier technique were employed. 2% lidocaine was use d to achieve local anesthesia over the right neck. Under ultrasound guidance, a 21-gauge micropunctur e needle was used to gain access to the right internal jugular vein. This vein was seen to be widely patent. A hardcopy ultrasound image was recorded. A small dermatotomy was made and the needle was e xchanged over a wire for a peel-away sheath. Attention was then turned to the anterior chest wall, wh ich was copiously anesthetized with 2% lidocaine plus epinephrine. A small incision was made and a do uble-lumen tunneled central venous power injectable catheter was tunneled subcutaneously towards the neck dermatotomy. The catheter was then deployed through the peel-away sheath. Fluoroscopy confirmed that the distal tip resided in the cavoatrial junction The catheter flushed and aspirated with ease and was then sutured to the skin. The right neck dermatotomy was closed with Dermabond.. The patient tolerated the procedure well and left the radiology department in stable condition. Impression: 1. Successful placement of a rightIJ tunneled central venous catheter as described. Electronically signed by: Fareed Griffin MD (08/18/2021 11:46 AM) [id number]
--- NOTE | 2021-08-18 12:24 | PDOC ---
[employer] PROGRESS NOTE Date of Service DOS: DATE: 08/18/21 TIME: 12:23 Chief Complaint Chief Complaint sepsis, POA bacterial central line infection, recurrent, lack of access chronically for TPN fungemia abdominal pain, swelling, diarrhea, Gram Negative Steven bacteremia gastroparesis, G tube and J tube anxiety and depression History of Present Illness History of Present Illness 08/18: Afebrile. Denies any acute abdominal pain. Unfortunately patient did not discharge yesterday because her home infusion orders and TPN had not been arranged. She will discharge today with her brother. Greater than 30 minutes spent managing the discharge of this patient. 08/17: Patient afebrile. She is having a central venous line replaced today to resume TPN. Afterwards she will discharge on micafungin until 08/27/2021. Will prepare discharge accordingly. Greater than 30 minutes spent managing the discharge this patient. 08/16, ID following may have new central line tomrrow to resume TPN on D5 half cont micafungin for the fungemia 08/15, some nausea this AM, did vomit, Zofran given , feels stronger, doing better, pain OK, nausea better gastric output better with pepcid dosing, cont current replace line with ID - plan tuesday, then DC plan Vitals/I&O Vitals/I&O: Vital Signs Date Time Temp Pulse Resp B/P (MAP) Pulse Ox O2 Delivery O2 Flow Rate FiO2 08/18/21 11:00 97.9 94 16 108/69 (82) 94 Room Air 97.9 08/17/21 14:14 2.0 Physical Exam Physical Exam: GENERAL: Alert, oriented x 3 female lying in bed, HEENT: Normocephalic, atraumatic. Anicteric sclerae. No thrush. Oral mucosa moist. NECK: Supple. LUNGS: Clear. HEART: S1, S2, No murmurs. ABDOMEN: Nondistended, G-tube and J-tubes present. BS + EXTREMITIES: No edema. DERMATOLOGIC: Warm, dry, no generalized rash. NEUROLOGIC: nonfocal, not anxious. PSYCHIATRIC: calm cooperative, General: Alert, Cooperative, No acute distress Heart: Regular rate Lungs: Clear Abdomen: Soft Extremities: No cyanosis Skin: Other (Central catheter in place to right upper chest wall.) Labs Labs: Laboratory Tests Test 08/18/21 09:14 White Blood Count 3.4 x10^3/uL (4.0-11.0) Red Blood Count 3.52 x10^6/uL (3.50-5.40) Hemoglobin 10.4 g/dL (12.0-15.5) Hematocrit 30.7 % (36.0-47.0) Mean Corpuscular Volume 87 fL (79-100) Mean Corpuscular Hemoglobin 30 pg (25-35) Mean Corpuscular Hemoglobin Concent 34 g/dL (31-37) Red Cell Distribution Width 23.6 % (11.5-14.5) Platelet Count 274 x10^3/uL (140-400) Neutrophils (%) (Auto) 45 % (31-73) Lymphocytes (%) (Auto) 46 % (24-48) Monocytes (%) (Auto) 7 % (0-9) Eosinophils (%) (Auto) 2 % (0-3) Basophils (%) (Auto) 0 % (0-3) Neutrophils # (Auto) 1.5 x10^3/uL (1.8-7.7) Lymphocytes # (Auto) 1.5 x10^3/uL (1.0-4.8) Monocytes # (Auto) 0.2 x10^3/uL (0.0-1.1) Eosinophils # (Auto) 0.1 x10^3/uL (0.0-0.7) Basophils # (Auto) 0.0 x10^3/uL (0.0-0.2) Sodium Level 144 mmol/L (136-145) Potassium Level 3.9 mmol/L (3.5-5.1) Chloride Level 106 mmol/L (98-107) Carbon Dioxide Level 28 mmol/L (21-32) Anion Gap 10 (6-14) Blood Urea Nitrogen 2 mg/dL (7-20) Creatinine 0.6 mg/dL (0.6-1.0) Estimated GFR (Cockcroft-Gault) 123.9 BUN/Creatinine Ratio 3 (6-20) Glucose Level 84 mg/dL (70-99) Calcium Level 9.1 mg/dL (8.5-10.1) Phosphorus Level 4.7 mg/dL (2.6-4.7) Magnesium Level 1.7 mg/dL (1.8-2.4) Total Bilirubin 0.4 mg/dL (0.2-1.0) Aspartate Amino Transf (AST/SGOT) 9 U/L (15-37) Alanine Aminotransferase (ALT/SGPT) 17 U/L (14-59) Alkaline Phosphatase 114 U/L (46-116) Total Protein 6.9 g/dL (6.4-8.2) Albumin 3.5 g/dL (3.4-5.0) Albumin/Globulin Ratio 1.0 (1.0-1.7) Comment Review of Relevant I have reviewed the following items lalo (where applicable) has been applied. Medications: Current Medications Medications (Trade) Dose Ordered Sig/Kel Route PRN Reason Start Time Stop Time Status Last Admin Dose Admin Vancomycin HCl 1 gm/Sodium Chloride 250 ml @ 250 mls/hr 1X ONCE IV 08/17/21 13:45 08/17/21 14:44 DC 08/17/21 13:45 Midazolam HCl (Versed) 2 mg 1X ONCE IV 08/17/21 14:00 08/17/21 14:04 DC 08/17/21 14:12 Fentanyl Citrate (Fentanyl 2ml Vial) 100 mcg 1X ONCE IV 08/17/21 14:00 08/17/21 14:04 DC 08/17/21 14:11 Lidocaine/ Epinephrine (LIDOCAINE 1%-EPI 1:100,000 Multi-Dose) 20 ml 1X ONCE INJ 08/17/21 14:00 08/17/21 14:04 DC 08/17/21 14:11 Heparin Sodium (Porcine) (Hep Lock Adult) 500 unit 1X ONCE IVP 08/17/21 14:00 08/17/21 14:04 DC 08/17/21 14:13 Justifications for Admission Other Justification Fever ALE JONES MD Aug 18, 2021 12:24
--- NOTE | 2021-08-18 12:45 | PDOC ---
Infectious Disease Note Subjective Subjective pt is feeling good ROS ROS no n/v/d/ Vital Sign Vital Signs Vital Signs Date Time Temp Pulse Resp B/P (MAP) Pulse Ox O2 Delivery O2 Flow Rate FiO2 08/18/21 12:37 94 Room Air 2.0 08/18/21 11:00 97.9 94 16 108/69 (82) 97.9 Physical Exam PHYSICAL EXAM GENERAL: Alert, oriented x 3 female lying in bed, HEENT: Normocephalic, atraumatic. Anicteric sclerae. No thrush. Oral mucosa moist. NECK: Supple. LUNGS: Clear. HEART: S1, S2, No murmurs. ABDOMEN: Nondistended, G-tube and J-tubes present. BS + EXTREMITIES: No edema. DERMATOLOGIC: Warm, dry, no generalized rash. NEUROLOGIC: nonfocal, not anxious. PSYCHIATRIC: calm cooperative, Labs Lab Laboratory Tests Test 08/18/21 09:14 White Blood Count 3.4 x10^3/uL (4.0-11.0) Red Blood Count 3.52 x10^6/uL (3.50-5.40) Hemoglobin 10.4 g/dL (12.0-15.5) Hematocrit 30.7 % (36.0-47.0) Mean Corpuscular Volume 87 fL (79-100) Mean Corpuscular Hemoglobin 30 pg (25-35) Mean Corpuscular Hemoglobin Concent 34 g/dL (31-37) Red Cell Distribution Width 23.6 % (11.5-14.5) Platelet Count 274 x10^3/uL (140-400) Neutrophils (%) (Auto) 45 % (31-73) Lymphocytes (%) (Auto) 46 % (24-48) Monocytes (%) (Auto) 7 % (0-9) Eosinophils (%) (Auto) 2 % (0-3) Basophils (%) (Auto) 0 % (0-3) Neutrophils # (Auto) 1.5 x10^3/uL (1.8-7.7) Lymphocytes # (Auto) 1.5 x10^3/uL (1.0-4.8) Monocytes # (Auto) 0.2 x10^3/uL (0.0-1.1) Eosinophils # (Auto) 0.1 x10^3/uL (0.0-0.7) Basophils # (Auto) 0.0 x10^3/uL (0.0-0.2) Sodium Level 144 mmol/L (136-145) Potassium Level 3.9 mmol/L (3.5-5.1) Chloride Level 106 mmol/L (98-107) Carbon Dioxide Level 28 mmol/L (21-32) Anion Gap 10 (6-14) Blood Urea Nitrogen 2 mg/dL (7-20) Creatinine 0.6 mg/dL (0.6-1.0) Estimated GFR (Cockcroft-Gault) 123.9 BUN/Creatinine Ratio 3 (6-20) Glucose Level 84 mg/dL (70-99) Calcium Level 9.1 mg/dL (8.5-10.1) Phosphorus Level 4.7 mg/dL (2.6-4.7) Magnesium Level 1.7 mg/dL (1.8-2.4) Total Bilirubin 0.4 mg/dL (0.2-1.0) Aspartate Amino Transf (AST/SGOT) 9 U/L (15-37) Alanine Aminotransferase (ALT/SGPT) 17 U/L (14-59) Alkaline Phosphatase 114 U/L (46-116) Total Protein 6.9 g/dL (6.4-8.2) Albumin 3.5 g/dL (3.4-5.0) Albumin/Globulin Ratio 1.0 (1.0-1.7) Micro BLOOD CULTURE Final YEAST FINAL ID= LAURA KRUSEI NO FURTHER WORKUP GRAM POSITIVE COCCI FINAL ID= STAPHYLOCOCCUS EPIDERMIDIS Growth of organism in only one of multiple sets; isolation does not necessarily indicate infection. Contact Microbiology Lab if further testing is clinically warranted. Testing performed by [address] [address] community development director: Corrie Abdullahi MD Objective Assessment Assessment: 1. Abdominal pain acute on chronic 2. Recent Klebsiella pneumonia bacteremia present, 3. Recent Enterococcus faecium amp resistant UTI. History of self- catheterization intermittently 4. Acute on chronic abdominal pain History of gastroparesis. G tube , Two J tubes.Mild Irritation. TPN through central line. 5. Hypertension. 6. History of migraines and seizures. 7. History of anxiety and depression. 8. History of urinary retention, status post Carrillo intermittently, urinary tract infection. 9. 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 10. Transaminitis, chronic, on TPN. 11. Chronic abdominal pain. 12. History of multiple J-tube exchanges. 13. HISTORY OF ALLERGIES TO SULFA AND PENICILLIN WITH NAUSEA AND VOMITING AND RASH, has tolerated Rocephin and meropenem. 14. COVID positive May 25 and June 14 admission 15. Status post Port-A-Cath removal May 2021 16. Power PICC placed June 13 last week 17. 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 pt has 2 dogs and a cat, who sleeps with her, she was recommended to not have them Pain management per primary Continue local care of two J-tubes and G-tube. Continue supportive care. also micafungin Repeat blood cultures so far negative kleb has been treated, coag neg staph only one bottle, also treated d/c on micafungin also need to see [facility], pt is following with them since her last fungemia and has appointment she says ISAAC RODRIGUEZ MD Aug 18, 2021 12:44
--- NOTE | 2021-08-18 13:20 | NUR ---
Pt discharged home with continued infusion/home care. Discharged instructions reviewed with patient, verbalized understanding. No other needs. pt transported off unit via wheelchair with all belongings.
== END 2021-08-18 13:19 | disposition home health service (06) | DRG 314 ==
LOC: ER 07:49 → 4 NORTH 12:00
PROVIDERS: ADMIT Internal Medicine; ATTEND Internal Medicine
PROC: 02PYX3Z Removal of Infusion Device from Great Vessel, External Approach (ICD-10-PCS; 2021-08-12)
PROC: 0JH63XZ Insertion of Tunneled Vascular Access Device into Chest Subcutaneous Tissue and Fascia, Percutaneous Approach (ICD-10-PCS; principal; 2021-08-18)
PROC: 02HV33Z Insertion of Infusion Device into Superior Vena Cava, Percutaneous Approach (ICD-10-PCS; 2021-08-18)
PROC: B5181ZA Fluoroscopy of Superior Vena Cava using Low Osmolar Contrast, Guidance (ICD-10-PCS; 2021-08-18)
PROC: B548ZZA Ultrasonography of Superior Vena Cava, Guidance (ICD-10-PCS; 2021-08-18)
DX: T80.218A Other infection due to central venous catheter, initial encounter (principal); A41.9 Sepsis, unspecified organism; N17.0 Acute kidney failure with tubular necrosis; B49 Unspecified mycosis; N39.0 Urinary tract infection, site not specified; K31.84 Gastroparesis; B95.2 Enterococcus as the cause of diseases classified elsewhere; B96.1 Klebsiella pneumoniae [K. pneumoniae] as the cause of diseases classified elsewhere; B96.89 Other specified bacterial agents as the cause of diseases classified elsewhere; F32.A Depression, unspecified; F41.9 Anxiety disorder, unspecified; G43.909 Migraine, unspecified, not intractable, without status migrainosus; G89.29 Other chronic pain; I10 Essential (primary) hypertension; J45.909 Unspecified asthma, uncomplicated; K21.9 Gastro-esophageal reflux disease without esophagitis; Y84.8 Other medical procedures as the cause of abnormal reaction of the patient, or of later complication, without mention of misadventure at the time of the procedure; Z79.51 Long term (current) use of inhaled steroids; Z79.899 Other long term (current) drug therapy; Z82.49 Family history of ischemic heart disease and other diseases of the circulatory system; Z86.16 Personal history of COVID-19; Z88.0 Allergy status to penicillin; Z88.2 Allergy status to sulfonamides; Z90.49 Acquired absence of other specified parts of digestive tract; Z93.1 Gastrostomy status; Z88.8 Allergy status to other drugs, medicaments and biological substances; Z86.718 Personal history of other venous thrombosis and embolism; Z79.01 Long term (current) use of anticoagulants; Z86.14 Personal history of Methicillin resistant Staphylococcus aureus infection; Z20.822 Contact with and (suspected) exposure to COVID-19
CPT/HCPCS: 36415; 36558; 36589; 74177; 76937; 77001; 80048; 80053; 81001; 81025; 82550; 83605; 83690; 83735; 83880; 84100; 84443; 84478; 85007; 85025; 85610; 87040; 87077; 87186; 87428; 93005; 96361; 96374; 96376; 99152; 99153; C1751; C1892; J0610; J0692; J0878; J1170; J1200; J1642; J2060; J2248; J2250; J2405; J3010; J3370; J3475; J3480; J3490; J7030; J7042; J7050; J7060; Q9967; U0003; 99285-25; G0378

== ENCOUNTER 2021-08-19 18:39 | Emergency (ER) | payer OTHER, MEDICARE, MEDICAID ==
[~2021-08-19] VITALS: Ht 160 cm; Wt 81.0 kg
[~2021-08-19 18:39] MED LIST changes: +OLAN5TAB3 PO
[2021-08-19] MEDS ORDERED: HYDROmorphone 2 MG/ML INJ. IVP ONE (19:00)
[2021-08-19] MEDS ORDERED: ONDANSETRON PF 4 MG/2 ML VIAL. IVP ONE (19:00)
[2021-08-19] MEDS ORDERED: IV NORMAL SALINE 1000ML BAG 1,000 ML IV ONE (19:00)
[2021-08-19] MEDS ORDERED: PANTOPRAZOLE IV PUSH 40 MG VIAL. IVP ONE (19:00)
[2021-08-19 19:42] LABS: BASO % 1 % (0-3); EOS % 1 % (0-3); HEMATOCRIT 34.3 % (36.0-47.0); HEMOGLOBIN 11.3 g/dL (12.0-15.5); LYMPH % 41 % (24-48); MEAN CORPUSCULAR HEMOGLOBIN 29 pg (25-35); MEAN CORPUSCULAR HGB CONC 33 g/dL (31-37); MEAN CORPUSCULAR VOLUME 87 fL (79-100); MONO # 0.4 x10^3/uL (0.0-1.1); MONO % 9 % (0-9); NEUT # 2.4 x10^3/uL (1.8-7.7); NEUT % 49 % (31-73); PLATELET COUNT 202 x10^3/uL (140-400); RED BLOOD COUNT 3.93 x10^6/uL (3.50-5.40); RED CELL DISTRIBUTION WIDTH 23.6 % (11.5-14.5); WHITE BLOOD COUNT 4.8 x10^3/uL (4.0-11.0)
[2021-08-19 19:53] LABS: PROTHROMBIN TIME PATIENT 15.4 SEC (11.7-14.0)
[2021-08-19 19:54] LABS: CALCIUM 9.2 mg/dL (8.5-10.1); CREATININE 0.7 mg/dL (0.6-1.0); GFR 103.7; POTASSIUM 3.9 mmol/L (3.5-5.1)
[2021-08-19 19:57] LABS: INFLUENZA A PATIENT NEGATIVE (NEGATIVE); INFLUENZA B PATIENT NEGATIVE (NEGATIVE)
[2021-08-19 20:00] LABS: ALBUMIN 3.8 g/dL (3.4-5.0); ALBUMIN/GLOBULIN RATIO 1.1 (1.0-1.7); MAGNESIUM 2.1 mg/dL (1.8-2.4); TOTAL BILIRUBIN 0.5 mg/dL (0.2-1.0); TOTAL PROTEIN 7.4 g/dL (6.4-8.2)
[2021-08-19 20:28] LABS: PLT ESTIMATE ADEQUATE (ADEQUATE)
[2021-08-19 20:29] LABS: ANISOCYTOSIS MOD
--- NOTE | 2021-08-19 20:36 | RAD ---
Abdominal radiograph 08/19/2021 8:24 PM Indication: Reason: abd pain / Spl. Instructions: / History: . Comparison: CT abdomen/pelvis 07/08/2019. Technique: Frontal supine radiographs of the abdomen were obtained. Findings: Supine technique limits evaluation for free intraperitoneal air. There is no portal venous gas. No pn eumatosis coli. Gastrostomy tube is present. There may be an additional enteric tube in the right mid abdomen. Cholecystectomy changes. There are no dilated loops of small or large bowel. There are no differential air-fluid levels. There is no organomegaly. No suspicious calcifications are identified along the expected course of the genitourinary tract. No suspicious osseous abnormality is identified. IMPRESSION Nonobstructed bowel gas pattern. Gastric and jejunostomy tube are in appropriate position. Electronically signed by: Leeanne Ruiz MD (08/19/2021 8:33 PM) [facility]
[2021-08-19 21:11] LABS: BACTERIA,URINE 0 /HPF (0-FEW); RBC,URINE 0 /HPF (0-2); WBC,URINE OCC /HPF (0-4); YEAST,URINE PRESENT /HPF
[2021-08-19 22:25] VITALS: BP 106/82
--- NOTE | 2021-08-19 22:42 | PHYS DOC ---
Past Medical History Past Medical History: Asthma, DVT, GERD, Hypertension, Migraines, MRSA, Other Additional Past Medical Histor: GASTROPARSIS, INTESTIAL DISMOTILITY, CHRONIC ABD PAIN Past Surgical History: Appendectomy, Cholecystectomy, Tonsillectomy Additional Past Surgical Histo: G TUBES, J TUBES, GJ TUBES Smoking Status: Never Smoker Alcohol Use: None Drug Use: None Adult General Chief Complaint Chief Complaint: NAUSEA/VOMITING/DIARRHEA HPI HPI Patient is a 21 year old female who presents with nausea, vomiting and abdominal pain. Patient's past history is complicated by severe gastroparesis which is required both G-tube and J-tube placement. The patient states that she does not receive any nutrition from either these tubes nor orally, right now her nutrition is entirely TPN. This is per patient history anyway. She has been throwing up throughout most of the day. She stopped several times and is complaining of crampy abdominal pain. No diarrhea. No fever that she is aware of. No chest pain or shortness of breath, no trauma. Review of Systems Review of Systems Constitutional: Denies fever Eyes: Denies change in visual acuity or eye pain HENT: Denies sore throat Respiratory: Denies shortness of breath Cardiovascular: Denies chest pain GI: Reports abd pain : Denies dysuria Musculoskeletal: Denies back or extremity injury Integument: Denies rash or skin lesions Neurologic: Denies headache, focal weakness or sensory changes All other systems were reviewed and found to be within normal limits, except as documented in this note. Current Medications Current Medications Current Medications Medications (Trade) Dose Ordered Sig/Kel Start Time Stop Time Status Last Admin Dose Admin Hydromorphone HCl (Dilaudid) 2 mg 1X ONCE 08/19/21 19:00 08/19/21 19:01 DC 08/19/21 19:24 2 MG Ondansetron HCl (Zofran) 4 mg 1X ONCE 08/19/21 19:00 08/19/21 19:01 DC 08/19/21 19:24 4 MG Pantoprazole Sodium (PROTONIX VIAL for IV PUSH) 80 mg 1X ONCE 08/19/21 19:00 08/19/21 19:01 DC 08/19/21 19:23 80 MG Sodium Chloride 1,000 ml @ 1,000 mls/hr 1X ONCE 08/19/21 19:00 08/19/21 19:59 DC 08/19/21 19:23 1,000 MLS/HR Allergies Allergies Allergies Coded Allergies Type Severity Reaction Last Updated Verified iron Allergy Severe Anaphylaxis 07/31/21 Yes Penicillins Allergy Intermediate LIGHT RASH CHILD 07/31/21 Yes Sulfa (Sulfonamide Antibiotics) Allergy Intermediate 07/31/21 Yes I S O L A T I O N *CONTACT* Allergy Unknown 07/31/21 Yes Physical Exam Physical Exam Constitutional: Well developed, well nourished, no acute distress, non-toxic appearance. HENT: Normocephalic, atraumatic, bilateral external ears normal, mucosa moist, nose normal. Eyes: EOMI, conjunctiva normal, no discharge. Neck: Normal range of motion, supple, no stridor, no meningeal signs. Cardiovascular: Regular rate and rhythm Lungs & Thorax: Bilateral breath sounds clear to auscultation Abdomen: Soft, both G and J tubes are in place. No obvious masses. Generalized tenderness. Skin: Warm, dry, no erythema, no rash. Extremities: No tenderness, no cyanosis, no clubbing, ROM intact, no edema. Triple-lumen catheter port placed on right chest wall Neurologic: Alert and oriented, normal motor function, normal sensory function, no focal deficits noted. Psychologic: Affect normal, judgement normal, mood normal. Current Patient Data Vital Signs Vital Signs Date Time Temp Pulse Resp B/P (MAP) Pulse Ox O2 Delivery O2 Flow Rate FiO2 08/19/21 19:24 19 99 Room Air 08/19/21 18:47 98.2 94 121/80 (94) 98.2 Lab Values Laboratory Tests Test 08/19/21 19:25 08/19/21 20:25 08/19/21 20:42 08/19/21 20:56 White Blood Count 4.8 x10^3/uL (4.0-11.0) Red Blood Count 3.93 x10^6/uL (3.50-5.40) Hemoglobin 11.3 g/dL (12.0-15.5) L Hematocrit 34.3 % (36.0-47.0) L Mean Corpuscular Volume 87 fL (79-100) Mean Corpuscular Hemoglobin 29 pg (25-35) Mean Corpuscular Hemoglobin Concent 33 g/dL (31-37) Red Cell Distribution Width 23.6 % (11.5-14.5) H Platelet Count 202 x10^3/uL (140-400) Neutrophils (%) (Auto) 49 % (31-73) Lymphocytes (%) (Auto) 41 % (24-48) Monocytes (%) (Auto) 9 % (0-9) Eosinophils (%) (Auto) 1 % (0-3) Basophils (%) (Auto) 1 % (0-3) Neutrophils # (Auto) 2.4 x10^3/uL (1.8-7.7) Lymphocytes # (Auto) 2.0 x10^3/uL (1.0-4.8) Monocytes # (Auto) 0.4 x10^3/uL (0.0-1.1) Eosinophils # (Auto) 0.0 x10^3/uL (0.0-0.7) Basophils # (Auto) 0.0 x10^3/uL (0.0-0.2) Platelet Estimate Adequate (ADEQUATE) Anisocytosis Mod Prothrombin Time 15.4 SEC (11.7-14.0) H Prothrombin Time INR 1.3 (0.8-1.1) H Activated Partial Thromboplast Time 35 SEC (24-38) Sodium Level 141 mmol/L (136-145) Potassium Level 3.9 mmol/L (3.5-5.1) Chloride Level 104 mmol/L (98-107) Carbon Dioxide Level 28 mmol/L (21-32) Anion Gap 9 (6-14) Blood Urea Nitrogen 11 mg/dL (7-20) Creatinine 0.7 mg/dL (0.6-1.0) Estimated GFR (Cockcroft-Gault) 103.7 BUN/Creatinine Ratio 16 (6-20) Glucose Level 90 mg/dL (70-99) Calcium Level 9.2 mg/dL (8.5-10.1) Magnesium Level 2.1 mg/dL (1.8-2.4) Total Bilirubin 0.5 mg/dL (0.2-1.0) Aspartate Amino Transferase (AST) 14 U/L (15-37) L Alanine Aminotransferase (ALT) 17 U/L (14-59) Alkaline Phosphatase 122 U/L (46-116) H Total Protein 7.4 g/dL (6.4-8.2) Albumin 3.8 g/dL (3.4-5.0) Albumin/Globulin Ratio 1.1 (1.0-1.7) Lipase 44 U/L (73-393) L Influenza Type A Antigen Negative (NEGATIVE) Influenza Type B Antigen Negative (NEGATIVE) SARS-CoV-2 Antigen (Rapid) Negative (NEGATIVE) Lactic Acid Level 1.8 mmol/L (0.4-2.0) Urine Collection Type Unknown Urine Color (Auto) Yellow Urine Turbidity Clear Urine pH (Auto) 6.0 (<5.0-8.0) Urine Specific [place] 1.026 (1.000-1.030) Urine Protein (Auto) Negative mg/dL (Negative) Urine Glucose (Auto)(UA) Negative mg/dL (Negative) Urine Ketones (Auto) Negative mg/dL (Negative) Urine Blood (Auto) Negative (Negative) Urine Nitrite Negative (Negative) Urine Bilirubin (Auto) Negative (Negative) Urine Urobilinogen (Auto) Normal mg/dL (Normal) Urine Leukocyte Esterase (Auto) Negative (Negative) Urine RBC 0 /HPF (0-2) Urine WBC Occ /HPF (0-4) Urine Squamous Epithelial Cells Many /LPF Urine Bacteria 0 /HPF (0-FEW) Urine Mucus Mod /LPF Urine Yeast Present /HPF POC Urine HCG, Qualitative Hcg negative (Negative) Laboratory Tests 08/19/21 19:25 Laboratory Tests 08/19/21 19:25 EKG EKG [] Radiology/Procedures Radiology/Procedures [] Impressions: PATIENT: SUNITHA SCHULTZ DACCOUNT: [id number]#: [id number] : 2000 LOCATION: ER AGE: 21 SEX: F EXAM STATUS: REG ER ORD. PHYSICIAN: BEVERLY JENNINGS MD REASON: abd pain PROCEDURE: KUB Abdominal radiograph 08/19/2021 8:24 PM Indication: Reason: abd pain / Spl. Instructions: / History: . Comparison: CT abdomen/pelvis 07/08/2019. Technique: Frontal supine radiographs of the abdomen were obtained. Findings: Supine technique limits evaluation for free intraperitoneal air. There is no portal venous gas. No pneumatosis coli. Gastrostomy tube is present. There may be an additional enteric tube in the right midabdomen. Cholecystectomy changes. There are no dilated loops of small or large bowel. There are no differential air-fluid levels. There is no organomegaly. No suspicious calcifications are identified along the expected course of the genitourinary tract. No suspicious osseous abnormality is identified. IMPRESSION Nonobstructed bowel gas pattern. Gastric and jejunostomy tube are in appropriate position. Electronically signed by: Uday Strauss MD (08/19/2021 8:33 PM) [facility] DICTATED and SIGNED BY: UDAY STRAUSS MD DATE: 08/19/212031 Course & Med Decision Making Course & Med Decision Making Pertinent Labs and Imaging studies reviewed. (See chart for details) [] Is a 18-year-old female with nausea vomiting abdominal pain. Lab studies are unrevealing and KUB is unremarkable. Patient was given Protonix, Zofran, Dilaudid and a liter of normal saline. On reassessment symptoms are much better. She does have IV Zofran at home which she can use. At this point we will have her follow-up with her primary care physician, she is stable for discharge. Dragon Disclaimer Dragon Disclaimer This electronic medical record was generated, in whole or in part, using a voice recognition dictation system. Departure Departure Impression: Primary Impression: Nausea & vomiting Additional Impression: Abdominal pain Disposition: HOME / SELF CARE / HOMELESS Condition: STABLE Referrals: ARASH YUN LASER MACHINE OPERATOR (PCP) Patient Instructions: Abdominal Pain, Nausea and Vomiting Problem Qualifiers BEVERLY JENNINGS MD Aug 19, 2021 22:42
== END 2021-08-19 22:48 | disposition home or self-care (01) ==
LOC: ER 18:39
DX: R11.2 Nausea with vomiting, unspecified (principal); R10.84 Generalized abdominal pain; Z20.822 Contact with and (suspected) exposure to COVID-19; I10 Essential (primary) hypertension; K21.9 Gastro-esophageal reflux disease without esophagitis; J45.909 Unspecified asthma, uncomplicated; G43.909 Migraine, unspecified, not intractable, without status migrainosus; G89.29 Other chronic pain; Z86.718 Personal history of other venous thrombosis and embolism; Z86.14 Personal history of Methicillin resistant Staphylococcus aureus infection; Z90.89 Acquired absence of other organs; Z90.49 Acquired absence of other specified parts of digestive tract; Z88.0 Allergy status to penicillin; Z88.2 Allergy status to sulfonamides; Z91.041 Radiographic dye allergy status; Z88.8 Allergy status to other drugs, medicaments and biological substances
CPT/HCPCS: 36415; 74018; 80053; 81001; 81025; 83605; 83690; 83735; 85025; 85610; 85730; 87428; 96361; 96374; 96375; 99285; C9113; J1170; J2405; J7030

== ENCOUNTER 2021-08-20 20:11 | Emergency (ER) | payer OTHER, MEDICARE, MEDICAID ==
[~2021-08-20] VITALS: Ht 165.1 cm; Wt 72.0 kg
[2021-08-20] MEDS ORDERED: IOHEXOL 300 MG/ML 100ML VIAL. IV ONE (21:15)
[2021-08-20] MEDS ORDERED: IV NORMAL SALINE 1000ML BAG 1,000 ML IV ONE ×2 (21:15→23:00)
[2021-08-20 21:16] LABS: BASO % 1 % (0-3); EOS # 0.1 x10^3/uL (0.0-0.7); EOS % 1 % (0-3); HEMATOCRIT 33.5 % (36.0-47.0); LYMPH % 43 % (24-48); MEAN CORPUSCULAR HEMOGLOBIN 29 pg (25-35); MEAN CORPUSCULAR HGB CONC 33 g/dL (31-37); MEAN CORPUSCULAR VOLUME 88 fL (79-100); MONO # 0.3 x10^3/uL (0.0-1.1); MONO % 7 % (0-9); NEUT # 2.2 x10^3/uL (1.8-7.7); NEUT % 48 % (31-73); PLATELET COUNT 267 x10^3/uL (140-400); RED BLOOD COUNT 3.79 x10^6/uL (3.50-5.40); RED CELL DISTRIBUTION WIDTH 23.6 % (11.5-14.5); WHITE BLOOD COUNT 4.6 x10^3/uL (4.0-11.0)
[2021-08-20 21:21] LABS: CREATININE 0.6 mg/dL (0.6-1.0); GFR 123.9; POTASSIUM 4.1 mmol/L (3.5-5.1)
[2021-08-20 21:24] LABS: U PREG PATIENT NEGATIVE (NEG)
[2021-08-20 21:28] LABS: ALBUMIN 3.7 g/dL (3.4-5.0); ALBUMIN/GLOBULIN RATIO 1.2 (1.0-1.7); TOTAL BILIRUBIN 0.5 mg/dL (0.2-1.0); TOTAL PROTEIN 6.9 g/dL (6.4-8.2)
--- NOTE | 2021-08-20 21:29 | PHYS DOC ---
Past Medical History Past Medical History: Asthma, DVT, GERD, Hypertension, Migraines, MRSA, Other Additional Past Medical Histor: GASTROPARSIS, INTESTIAL DISMOTILITY, CHRONIC ABD PAIN Past Surgical History: Other Additional Past Surgical Histo: G TUBES, J TUBES, GJ TUBES Smoking Status: Never Smoker Alcohol Use: None Drug Use: None General Adult EDM: Chief Complaint: NAUSEA/VOMITING/DIARRHEA HPI: HPI: Patient is a 21 year old female with past medical history hypertension GERD gastroparesis migraines presents with a chief complaint of abdominal pain associated with nausea vomiting and diarrhea. Patient states symptoms started 4 days ago and progressed to become worse. Patient states she has been vomiting and unable to take any of her medications. Patient's abdominal pain is Review of Systems: Review of Systems: Constitutional: Denies fever or chills. [] Eyes: Denies change in visual acuity. [] HENT: Denies nasal congestion or sore throat. [] Respiratory: Denies cough or shortness of breath. [] Cardiovascular: Denies chest pain or edema. [] GI: Positive abdominal pain, Positive nausea, Positive vomiting, Positive diarrhea. [] : Denies dysuria. [] Musculoskeletal: Denies back pain or joint pain. [] Integument: Denies rash. [] Neurologic: Denies headache, focal weakness or sensory changes. [] Endocrine: Denies polyuria or polydipsia. [] Lymphatic: Denies swollen glands. [] Psychiatric: Denies depression or anxiety. [] Heart Score: C/O Chest Pain: N/A Risk Factors: Risk Factors: DM, Current or recent (<one month) smoker, HTN, HLP, family h istory of CAD, obesity. Risk Scores: Score 0 - 3: 2.5% MACE over next 6 weeks - Discharge Home Score 4 - 6: 20.3% MACE over next 6 weeks - Admit for Clinical Observation Score 7 - 10: 72.7% MACE over next 6 weeks - Early Invasive Strategies Current Medications: Current Medications Medications (Trade) Dose Ordered Sig/Kel Start Time Stop Time Status Last Admin Dose Admin Hydromorphone HCl (Dilaudid) 1 mg 1X ONCE 08/20/21 21:45 08/20/21 21:46 08/20/21 21:25 1 MG Info (CONTRAST GIVEN -- Rx MONITORING) 1 each PRN DAILY PRN 08/20/21 21:30 08/22/21 21:29 Iohexol (Omnipaque 300 Mg/ml) 75 ml 1X ONCE 08/20/21 21:15 08/20/21 21:16 DC Prochlorperazine Edisylate (Compazine) 10 mg 1X ONCE 08/20/21 21:45 08/20/21 21:46 08/20/21 21:25 10 MG Sodium Chloride 1,000 ml @ 1,000 mls/hr 1X ONCE 08/20/21 21:15 08/20/21 22:14 08/20/21 21:26 1,000 MLS/HR Allergies: Allergies: Allergies Coded Allergies Type Severity Reaction Last Updated Verified iron Allergy Severe Anaphylaxis 07/31/21 Yes Penicillins Allergy Intermediate LIGHT RASH CHILD 07/31/21 Yes Sulfa (Sulfonamide Antibiotics) Allergy Intermediate 07/31/21 Yes I S O L A T I O N *CONTACT* Allergy Unknown 07/31/21 Yes Physical Exam: PE: Constitutional: Well developed, well nourished, no acute distress, non-toxic appearance. [] HENT: Normocephalic, atraumatic, bilateral external ears normal, oropharynx moist, no oral exudates, nose normal. [] Eyes: PERRLA, EOMI, conjunctiva normal, no discharge. [] Neck: Normal range of motion, no tenderness, supple, no stridor. [] Cardiovascular:Heart rate regular rhythm, no murmur [] Lungs & Thorax: Bilateral breath sounds clear to auscultation [] Abdomen: Bowel sounds normal, soft, no tenderness, no masses, no pulsatile masses. [] Skin: Warm, dry, no erythema, no rash. [] Back: No tenderness, no CVA tenderness. [] Extremities: No tenderness, no cyanosis, no clubbing, ROM intact, no edema. [] Neurologic: Alert and oriented X 3, normal motor function, normal sensory function, no focal deficits noted. [] Psychologic: Affect normal, judgement normal, mood normal. [] Current Patient Data: Labs: Laboratory Tests Test 08/20/21 20:40 08/20/21 21:05 08/20/21 21:11 Urine Test Negative (NEG) White Blood Count 4.6 x10^3/uL (4.0-11.0) Red Blood Count 3.79 x10^6/uL (3.50-5.40) Hemoglobin 11.0 g/dL (12.0-15.5) L Hematocrit 33.5 % (36.0-47.0) L Mean Corpuscular Volume 88 fL (79-100) Mean Corpuscular Hemoglobin 29 pg (25-35) Mean Corpuscular Hemoglobin Concent 33 g/dL (31-37) Red Cell Distribution Width 23.6 % (11.5-14.5) H Platelet Count 267 x10^3/uL (140-400) Neutrophils (%) (Auto) 48 % (31-73) Lymphocytes (%) (Auto) 43 % (24-48) Monocytes (%) (Auto) 7 % (0-9) Eosinophils (%) (Auto) 1 % (0-3) Basophils (%) (Auto) 1 % (0-3) Neutrophils # (Auto) 2.2 x10^3/uL (1.8-7.7) Lymphocytes # (Auto) 2.0 x10^3/uL (1.0-4.8) Monocytes # (Auto) 0.3 x10^3/uL (0.0-1.1) Eosinophils # (Auto) 0.1 x10^3/uL (0.0-0.7) Basophils # (Auto) 0.0 x10^3/uL (0.0-0.2) Platelet Estimate Pending Sodium Level 141 mmol/L (136-145) Potassium Level 4.1 mmol/L (3.5-5.1) Chloride Level 105 mmol/L (98-107) Carbon Dioxide Level 29 mmol/L (21-32) Anion Gap 7 (6-14) Blood Urea Nitrogen 10 mg/dL (7-20) Creatinine 0.6 mg/dL (0.6-1.0) Estimated GFR (Cockcroft-Gault) 123.9 BUN/Creatinine Ratio 17 (6-20) Glucose Level 79 mg/dL (70-99) Calcium Level 9.0 mg/dL (8.5-10.1) Total Bilirubin Pending Aspartate Amino Transferase (AST) Pending Alanine Aminotransferase (ALT) Pending Alkaline Phosphatase Pending Total Protein Pending Albumin Pending Albumin/Globulin Ratio Pending Lipase Pending POC Urine HCG, Qualitative Hcg negative (Negative) Laboratory Tests 08/20/21 21:05 Laboratory Tests 08/20/21 21:05 Vital Signs: Vital Signs Date Time Temp Pulse Resp B/P (MAP) Pulse Ox O2 Delivery O2 Flow Rate FiO2 08/20/21 21:25 16 100 Room Air 08/20/21 20:29 98.3 94 130/60 (83) 98.3 EKG: EKG: [] Radiology/Procedures: Radiology/Procedures: [] Course & Med Decision Making: Course & Med Decision Making Pertinent Labs and Imaging studies reviewed. (See chart for details) [] CT abdomen with no acute abnormalities. JG tube site evaluated no signs of cellulitis. Treatment included Dilaudid for pain and IV fluids. Patient without any episodes of vomiting in the ER. Patient was just discharged home with instruction to follow-up with primary care physician. Pooja Disclaimer: Pooja Disclaimer: This electronic medical record was generated, in whole or in part, using a voice recognition dictation system. Departure Departure Impression: Primary Impression: Abdominal pain Additional Impression: Gastroparesis Disposition: HOME / SELF CARE / HOMELESS Condition: STABLE Referrals: ARASH YUN ELECTRON GUN INSPECTOR (PCP) Patient Instructions: Abdominal Pain, Gastroparesis MELISSA CASIANO DO Aug 20, 2021 21:29
[2021-08-20] MEDS ORDERED: CONTRAST GIVEN. MC PRN (21:30)
[2021-08-20 21:37] LABS: ANISOCYTOSIS MOD; PLT ESTIMATE ADEQUATE (ADEQUATE)
[2021-08-20] MEDS ORDERED: PROCHLORPERAZINE 10 MG/2 ML VIAL. IV ONE (21:45)
[2021-08-20] MEDS ORDERED: HYDROmorphone 2 MG/ML INJ. IVP ONE ×2 (21:45→23:30)
--- NOTE | 2021-08-20 22:03 | RAD ---
PQRS Compliance Statement: One or more of the following individualized dose reduction techniques were utilized for this examinat ion: 1. Automated exposure control 2. Adjustment of the mA and/or kV according to patient size 3. Use of iterative reconstruction technique CT abdomen/pelvis with contrast 08/20/2021 9:14 PM INDICATION: Abdominal pain, vomiting COMPARISON: 08/05/2021 TECHNIQUE: Multiple axial CT images of the abdomen and pelvis were obtained after the intravenous adm inistration of 75 mL Omnipaque 300. Coronal and sagittal reformats are provided. FINDINGS: Visualized portions of the lung bases are clear. Heart size is within normal limits. No suspicious hepatic masses are identified. Liver is homogeneous in enhancement. Spleen, bilateral a drenal glands, and pancreas are normal in appearance. Gallbladder surgically absent. The abdominal aorta is normal in course and caliber. There are no pathologically enlarged lymph nodes in the abdomen and pelvis. There is no abdominal free fluid. There is no free intraperitoneal air. The kidneys enhance symmetrically. There is no suspicious renal mass. There is no hydronephrosis. The re are no suspected calculi within the kidneys, ureters or urinary bladder. Small volume pelvic free fluid. Uterus is normal in appearance. Follicular changes identified in the left adnexa. Small and large bowel are normal in caliber. There is no evidence for bowel obstruction. There are no pericolonic inflammatory changes. A normal, nondilated appendix is visualized without adjacent infla mmatory changes. Gastrostomy tube is present and intraluminal. Jejunostomy tube is present and appear s intraluminal. There is skin thickening along the region of the jejunostomy tube without significant deep or fluid collection or abscess. No suspicious osseous abnormality is identified. IMPRESSION: No bowel obstruction or inflammation. Jejunostomy tube with adjacent skin thickening and minimal inflammation. Correlate with cellulitis in this region. Small volume pelvic free fluid may be physiologic. Follicular changes identified in the left adnexa. There may be a hemorrhagic cyst in the left ovary measuring up to 2.5 cm. Electronically signed by: Leeanne Ruiz MD (08/20/2021 10:00 PM) [facility]
[2021-08-21 00:15] VITALS: BP 109/47
[2021-08-21] MEDS ORDERED: IOHEXOL 300 MG/ML 100ML VIAL. ONE (03:33)
[2021-08-21 16:33] LABS: BACTERIA,URINE 0 /HPF (0-FEW); RBC,URINE 0 /HPF (0-2); YEAST,URINE PRESENT /HPF
== END 2021-08-21 00:20 | disposition home or self-care (01) ==
LOC: ER 20:11
DX: K31.84 Gastroparesis (principal); K21.9 Gastro-esophageal reflux disease without esophagitis; I10 Essential (primary) hypertension; G43.909 Migraine, unspecified, not intractable, without status migrainosus; J45.909 Unspecified asthma, uncomplicated; G89.29 Other chronic pain; Z86.718 Personal history of other venous thrombosis and embolism; Z86.14 Personal history of Methicillin resistant Staphylococcus aureus infection; Z88.0 Allergy status to penicillin; Z88.2 Allergy status to sulfonamides; Z91.041 Radiographic dye allergy status; Z88.8 Allergy status to other drugs, medicaments and biological substances
CPT/HCPCS: 36415; 74177; 80053; 81001; 81025; 83690; 85025; 96361; 96374; 96375; 96376; 99285; J0780; J1170; J7030; Q9967

== ENCOUNTER 2021-08-29 15:10 | Inpatient (IN) | payer OTHER, MEDICARE, MEDICAID ==
[~2021-08-29] VITALS: Ht 170.2 cm; Wt 82.5 kg
[2021-08-29] MEDS ORDERED: diphenhydrAMINE 50 MG/ML VIAL IVP ONE (16:00)
[2021-08-29] MEDS ORDERED: METOCLOPRAMIDE HCL 10 MG/2 ML VIAL. IVP ONE (16:00)
--- NOTE | 2021-08-29 16:07 | RAD ---
AP chest. HISTORY: Bilateral lower extremity swelling AP view was taken of the chest. Comparison is made with a study from July 18. Lungs are free of i nfiltrates. Heart is normal in size. There is no pleural effusion. There is a right central line exte nding to the superior vena cava. IMPRESSION: 1. No acute infiltrates. Electronically signed by: Main Cuello MD (08/29/2021 4:05 PM) [id number]
[2021-08-29] MEDS: HYDROmorphone 2 MG/ML INJ. IV/SQ PRN ×3 (16:13→18:47)
--- NOTE | 2021-08-29 16:20 | PHYS DOC ---
Past Medical History Past Medical History: Asthma, DVT, GERD, Hypertension, Migraines, MRSA, Other Additional Past Medical Histor: GASTROPARSIS, INTESTIAL DISMOTILITY, CHRONIC ABD PAIN Past Surgical History: Appendectomy, Cholecystectomy, Tonsillectomy, Other Additional Past Surgical Histo: G TUBES, J TUBES, GJ TUBES Smoking Status: Never Smoker Alcohol Use: None Drug Use: None General Adult EDM: Chief Complaint: NAUSEA/VOMITING/DIARRHEA HPI: HPI: Patient is a 21 year old female with extensive history of abdominal surgeries, chronic abdominal pain, hypertension, acid reflux who presents the ED today complaining of generalized abdominal pain with nausea and vomiting, patient states symptoms have been going on for a while. She is also complaining of bilateral lower extremity swelling, she states symptoms have been going on for couple days. She states she is currently on Lasix with no improvement to the swelling. She states she is not able to void as much. Review of Systems: Review of Systems: Constitutional: Denies fever or chills. [] Eyes: Denies change in visual acuity. [] HENT: Denies nasal congestion or sore throat. [] Respiratory: Denies cough or shortness of breath. [] Cardiovascular: Denies chest pain or edema. [] GI: Reports abdominal pain with nausea and vomiting, denies bloody stools or diarrhea. [] : Denies dysuria. [] Musculoskeletal: Reports bilateral lower extremity swelling. Denies back pain or joint pain. [] Integument: Denies rash. [] Neurologic: Denies headache, focal weakness or sensory changes. [] Psychiatric: Denies depression or anxiety. [] Heart Score: C/O Chest Pain: N/A Risk Factors: Risk Factors: DM, Current or recent (<one month) smoker, HTN, HLP, family his tory of CAD, obesity. Risk Scores: Score 0 - 3: 2.5% MACE over next 6 weeks - Discharge Home Score 4 - 6: 20.3% MACE over next 6 weeks - Admit for Clinical Observation Score 7 - 10: 72.7% MACE over next 6 weeks - Early Invasive Strategies Current Medications: Current Medications Medications (Trade) Dose Ordered Sig/Kel Start Time Stop Time Status Last Admin Dose Admin Diphenhydramine HCl (Benadryl) 25 mg 1X ONCE 08/29/21 16:00 08/29/21 16:01 DC 08/29/21 16:11 25 MG Hydromorphone HCl (Dilaudid) 1 mg PRN Q15MIN PRN 08/29/21 15:45 08/30/21 15:44 08/29/21 16:13 1 MG Metoclopramide HCl (Reglan Vial) 10 mg 1X ONCE 08/29/21 16:00 08/29/21 16:01 DC 08/29/21 16:09 10 MG Allergies: Allergies: Allergies Coded Allergies Type Severity Reaction Last Updated Verified iron Allergy Severe Anaphylaxis 08/28/21 Yes Penicillins Allergy Intermediate LIGHT RASH CHILD 08/28/21 Yes Sulfa (Sulfonamide Antibiotics) Allergy Intermediate 08/28/21 Yes I S O L A T I O N *CONTACT* Allergy Unknown 08/28/21 Yes Physical Exam: PE: Constitutional: Well developed, well nourished, no acute distress, non-toxic appearance. [] HENT: Normocephalic, atraumatic, bilateral external ears normal, oropharynx moist, no oral exudates, nose normal. [] Eyes: PERRLA, EOMI, conjunctiva normal, no discharge. [] Neck: Normal range of motion, no tenderness, supple, no stridor. [] Cardiovascular:Heart rate regular rhythm, no murmur [] Lungs & Thorax: Bilateral breath sounds clear to auscultation [] Abdomen: G-tube and J-tube noted to the abdomen. Bowel sounds normal, soft, diffuse abdominal tenderness, no masses, no pulsatile masses. [] Skin: Warm, dry, no erythema, no rash. [] Back: No tenderness, no CVA tenderness. [] Extremities: No tenderness, no cyanosis, no clubbing, ROM intact, no edema. [] Neurologic: Alert and oriented X 3, normal motor function, normal sensory function, no focal deficits noted. [] Psychologic: Flat affect Current Patient Data: Vital Signs: Vital Signs Date Time Temp Pulse Resp B/P (MAP) Pulse Ox O2 Delivery O2 Flow Rate FiO2 08/29/21 16:13 18 98 Room Air 08/29/21 15:25 98.4 122 141/82 (101) 98.4 EKG: EK interpreted by Dr. Perry sinus tachycardia heart rate 107 no STEMI [] Radiology/Procedures: Radiology/Procedures: []PROCEDURE: PORTABLE CHEST 1V AP chest. HISTORY: Bilateral lower extremity swelling AP view was taken of the chest. Comparison is made with a study from July 18. Lungs are free of infiltrates. Heart is normal in size. There is no pleural effusion. There is a right central line extending to the superior vena cava. IMPRESSION: 1. No acute infiltrates. Electronically signed by: Main Cuello MD (08/29/2021 4:05 PM) [id number] DICTATED and SIGNED BY: MAIN CUELLO MD DATE: 08/29/21 1604 PROCEDURE: CT ABDOMEN PELVIS WO CONTRAST Exam: CT of abdomen and pelvis without contrast INDICATION: Abdominal pain, bilateral lower extremity swelling TECHNIQUE: Sequential axial images through the abdomen and pelvis obtained without IV contrast. Sagittal and coronal reformatted images were reconstructed from the axial data and reviewed. Exposure: One or more of the following in the visualized dose reduction techniques were utilized for this examination: 1. Automated exposure control 2. Adjustment of the MA and/or KV according to patient size 3. Use of iterative of reconstructive technique Comparisons: 08/20/2021 FINDINGS: Heart size is normal. No pericardial effusion. Visualized lung bases are clear. No pleural effusion. Evaluation of solid organs limited secondary to noncontrast technique. Liver, spleen, pancreas and adrenals are unremarkable. Gallbladder surgically absent. No perinephric inflammation or hydronephrosis. No renal or ureteral calculi are identified. Bladder is partially distended and not well evaluated. Uterus is not enlarged. No abnormal adnexal mass. Small amount of free fluid noted in the pelvis. No free intra-abdominal air. There is fat stranding involving the ascending colon. Appendix is absent. Small bowel is unremarkable. Percutaneous G-tube and J-tube are noted. Abdominal aorta has normal course and caliber. No enlarged intra-abdominal lymph nodes are identified. No suspicious osseous lesions or acute IMPRESSION: 1. Mild fat stranding involving the ascending colon may represent colitis. Correlate with symptomatology. 2. Small amount of free fluid in the pelvis. Electronically signed by: Дмитрий Short MD (08/29/2021 5:50 PM) [facility] DICTATED and SIGNED BY: ДМИТРИЙ SHORT MD DATE: 08/29/21 8916 Course & Med Decision Making: Course & Med Decision Making Pertinent Labs and Imaging studies reviewed. (See chart for details) This a 21-year-old female patient well-known to this ED presented today complaining of generalized abdominal pain with nausea and vomiting, this is a chronic condition for this patient. She currently has a G-tube and a J-tube. She is also complaining of bilateral lower extremity swelling and decreased urine output for couple days. CBC with a normal WBC, hemoglobin 10.1 with hematocrit of 30.0, history of anemia. 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 BMP with no acute findings, AST 39, ALT 82, ALK 162. CT of the abdomen and pelvis was positive for colitis. Started on Flagyl and Levaquin Spoke with Dr. Bynum who accepted patient for admission Routine consult placed for GI and Dr. Fani Patton Disclaimer: Pooja Disclaimer: This electronic medical record was generated, in whole or in part, using a voice recognition dictation system. Departure Departure Impression: Primary Impression: Colitis Additional Impressions: Intractable abdominal pain Nausea & vomiting Qualified Codes: R11.2 - Nausea with vomiting, unspecified Disposition: ADMITTED INPATIENT Condition: STABLE Referrals: ARASH YUN COLLARETTE SEPARATOR (PCP) HEYDI MORRIS APRN Aug 29, 2021 16:20
[2021-08-29 16:23] LABS: BASO % 0 % (0-3); EOS # 0.1 x10^3/uL (0.0-0.7); EOS % 2 % (0-3); HEMOGLOBIN 10.1 g/dL (12.0-15.5); LYMPH # 1.2 x10^3/uL (1.0-4.8); LYMPH % 26 % (24-48); MEAN CORPUSCULAR HEMOGLOBIN 30 pg (25-35); MEAN CORPUSCULAR HGB CONC 34 g/dL (31-37); MEAN CORPUSCULAR VOLUME 90 fL (79-100); MONO # 0.5 x10^3/uL (0.0-1.1); MONO % 11 % (0-9); NEUT # 2.8 x10^3/uL (1.8-7.7); NEUT % 61 % (31-73); PLATELET COUNT 106 x10^3/uL (140-400); RED BLOOD COUNT 3.32 x10^6/uL (3.50-5.40); RED CELL DISTRIBUTION WIDTH 20.9 % (11.5-14.5); WHITE BLOOD COUNT 4.6 x10^3/uL (4.0-11.0)
[2021-08-29 16:33] LABS: CALCIUM 8.7 mg/dL (8.5-10.1); CREATININE 0.7 mg/dL (0.6-1.0); GFR 103.7; POTASSIUM 3.9 mmol/L (3.5-5.1)
[2021-08-29 16:39] LABS: ALBUMIN 3.7 g/dL (3.4-5.0); ALBUMIN/GLOBULIN RATIO 1.2 (1.0-1.7); MAGNESIUM 1.8 mg/dL (1.8-2.4); TOTAL BILIRUBIN 0.3 mg/dL (0.2-1.0); TOTAL PROTEIN 6.9 g/dL (6.4-8.2)
[2021-08-29 17:25] LABS: ANISOCYTOSIS MOD; PLATELET CLUMP PRESENT; PLT ESTIMATE DECREASED (ADEQUATE)
[2021-08-29 17:33] LABS: BACTERIA,URINE FEW /HPF (0-FEW); RBC,URINE 0 /HPF (0-2); WBC,URINE OCC /HPF (0-4)
[2021-08-29 17:34] LABS: AMPHETAMINE/METHAMPHETAMINE NEG (NEG); BARBITURATES NEG (NEG); BENZODIAZEPINES NEG (NEG); CANNABINOIDS NEG (NEG); COCAINE NEG (NEG); METHADONE NEG (NEG); OPIATES POS (NEG); PHENCYCLIDINE NEG (NEG)
--- NOTE | 2021-08-29 17:52 | RAD ---
Exam: CT of abdomen and pelvis without contrast INDICATION: Abdominal pain, bilateral lower extremity swelling TECHNIQUE: Sequential axial images through the abdomen and pelvis obtained without IV contrast. Sagit faby and coronal reformatted images were reconstructed from the axial data and reviewed. Exposure: One or more of the following in the visualized dose reduction techniques were utilized for this examination: 1. Automated exposure control 2. Adjustment of the MA and/or KV according to patient size 3. Use of iterative of reconstructive technique Comparisons: 08/20/2021 FINDINGS: Heart size is normal. No pericardial effusion. Visualized lung bases are clear. No pleural effusion. Evaluation of solid organs limited secondary to noncontrast technique. Liver, spleen, pancreas and adrenals are unremarkable. Gallbladder surgically absent. No perinephric inflammation or hydronephrosis. No renal or ureteral calculi are identified. Bladder is partially distended and not well evaluated. Uterus is not enlarged. No abnormal adnexal ma ss. Small amount of free fluid noted in the pelvis. No free intra-abdominal air. There is fat stranding i nvolving the ascending colon. Appendix is absent. Small bowel is unremarkable. Percutaneous G-tube an d J-tube are noted. Abdominal aorta has normal course and caliber. No enlarged intra-abdominal lymph nodes are identified. No suspicious osseous lesions or acute IMPRESSION: 1. Mild fat stranding involving the ascending colon may represent colitis. Correlate with symptomato logy. 2. Small amount of free fluid in the pelvis. Electronically signed by: Дмитрий Nowak MD (08/29/2021 5:50 PM) [facility] CENTER[facility]
[2021-08-29] MEDS ORDERED: HYDROcodon/APAP 7.5/325MG ORAL 15 ML SOLUTION PO PRN (19:00)
[2021-08-29] MEDS ORDERED: HYDROmorphone 2 MG/ML INJ. IVP PRN ×2 (19:00→19:45)
[2021-08-29] MEDS ORDERED: MONTELUKAST SODIUM 10 MG TABLET. PO PRN (19:00)
[2021-08-29] MEDS ORDERED: BISACODYL 10 MG SUPP.RECT. PR PRN (19:00)
[2021-08-29] MEDS ORDERED: TPN PER PHARMACY MC PRN (19:00)
[2021-08-29] MEDS ORDERED: tiZANidine 4 MG TABLET. JT PRN (19:15)
[2021-08-29 19:28] VITALS: BP 132/69
[2021-08-29] MEDS ORDERED: ALBUTEROL SULFATE 2.5 MG/3 ML NEBU. NEB PRN (19:30)
[2021-08-29] MEDS ORDERED: KETOTIFEN FUMARATE OPHTH SOLUTION BOTTLE. OD PRN (19:45)
[2021-08-29] MEDS ORDERED: ONDANSETRON PF 4 MG/2 ML VIAL. IVP PRN (19:45)
[2021-08-29] MEDS ORDERED: METOCLOPRAMIDE HCL 10 MG/2 ML VIAL. IVP PRN (19:45)
--- NOTE | 2021-08-29 19:49 | HP ---
DATE OF SERVICE: 08/29/2021 ADMIT DATE: 08/29/2021 CHIEF COMPLAINT: Abdominal pain, nausea, vomiting and diarrhea. HISTORY OF PRESENT ILLNESS: The patient is a pleasant 21-year-old female with multiple-multiple medical issues, well known to our service. We admitted her about once or twice a month. At this time, she presents with nausea, vomiting, diarrhea and abdominal pain. Imaging studies are showing colitis. I have discussed the case with ER physician. We are going to admit the patient, give her IV antibiotics and consult GI. 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 ALLERGIES: PENICILLIN, SULFA, AND IRON. FAMILY HISTORY: Diabetes. SOCIAL HISTORY: She does not drink, smoke or take drugs. MEDICATIONS: Reviewed, please refer to the MRAD. REVIEW OF SYSTEMS: GENERAL: No history of weight change, weakness or fevers. SKIN: No bruising, hair changes or rashes. EYES: No blurred, double or loss of vision. NOSE AND THROAT: No history of nosebleeds, hoarseness or sore throat. HEART: No history of palpitations, chest pain or shortness of breath on exertion. LUNGS: Denies cough, hemoptysis, wheezing or shortness of breath. GASTROINTESTINAL: She complains of abdominal pain and nausea, vomiting, diarrhea. GENITOURINARY: No history of frequency, urgency, hesitancy or nocturia. NEUROLOGIC: Denies history of numbness, tingling, tremor or weakness. PSYCHIATRIC: No history of panic, anxiety or depression. ENDOCRINE: No history of heat or cold intolerance, polyuria or polydipsia. EXTREMITIES: Denies muscle weakness, joint pain, pain on walking or stiffness. PHYSICAL EXAMINATION: VITALS: Within normal limits and are stable. GENERAL: No apparent distress. Alert and oriented. HEENT: Normal cephalic atraumatic, external auditory canals are patent. EYES: Extraocular muscles are intact, pupils are equally round and reactive to light and accommodation. MUSCULOSKELETAL: Well developed, well nourished, good range of motion. ENDOCRINE: No thyromegaly was palpated. LYMPHATICS: No cervical chain or axillary nodes were noted. HEMATOPOIETIC: No bruising. NECK: Supple, no JVD, no thyromegaly was noted. LUNGS: She has a right chest wall port. HEART: RRR, S1, S2 present. Peripheral pulses intact, no obvious murmurs were noted. ABDOMEN: She has two tubes currently one is a J-tube and one is a G-tube. EXTREMITIES: Without any cyanosis, clubbing, or edema. Pedal pulses intact, Homans sign is negative. NEUROLOGIC: Normal speech, normal tone. A and O x 3, moves all extremities, no obvious focal deficits. PSYCHIATRIC: Normal affect, normal mood. Stable. SKIN: No ulcerations or rashes, good skin turgor, no jaundice. VASCULAR: Good capillary refill, neurovascular bundle appears to be intact. ASSESSMENT AND PLAN: Colitis in a middle-aged female who has multiple-multiple comorbidities. The patient will be admitted. We will start her home meds, IV fluids, IV antibiotics, p.r.n. Dilaudid, p.r.n. Benadryl. Consult Gastroenterology. Trend labs. [facility] [place]: RAMON/kimberly TID: [id number]
[2021-08-29] MEDS: ONDANSETRON PF 4 MG/2 ML VIAL. IVP PRN (20:10)
[2021-08-29] MEDS: IV NORMAL SALINE 1000ML BAG 1,000 ML IV SCH (20:11)
[2021-08-29] MEDS: IPRATRPIUM/ALBUTEROL 0.5/2.5MG 3 ML NEBU. NEB SCH (20:32)
[2021-08-29] MEDS: BUDESONIDE 0.5 MG/2 ML NEBU. NEB SCH (20:32)
[2021-08-29] MEDS: GABAPENTIN 250 MG/5 ML ORAL SOLUTION. JT SCH (21:00)
[2021-08-29] MEDS: VALPROIC ACID (AS SODIUM SALT) 250 MG/5 ML SOLUTION. JT SCH (21:00)
[2021-08-29] MEDS: IPRATROPIUM BROMIDE 0.06% NASAL SPRAY 15ML BOTTLE. NS SCH (21:00)
[2021-08-29] MEDS: METOPROLOL TART IMMED RELEASE 25 MG TABLET. PO SCH (21:00)
[2021-08-29] MEDS: HYOSCYAMINE ER 0.375 MG TAB.ER.12H PO SCH (21:00)
[2021-08-29] MEDS: OLANZapine 5 MG TABLET PO SCH (21:31)
[2021-08-29] MEDS: FAMOTIDINE 20 MG/2 ML VIAL IVP SCH (21:32)
[2021-08-29 22:52] VITALS: BP 117/66
--- NOTE | 2021-08-30 00:05 | NUR ---
Patient complaining of uncontrolled pain. Hydromorphone administered as ordered. Patient verbalizes not getting any relieve. relief salesperson paged.
--- NOTE | 2021-08-30 00:57 | NUR ---
Dr. Bynum called back. Dilaudid 1 mg IV Every 2 hours as needed for pain received.
[2021-08-30] MEDS: diphenhydrAMINE 50 MG/ML VIAL IV PRN ×4 (01:06→22:15)
[2021-08-30] MEDS: HYDROmorphone 2 MG/ML INJ. IVP PRN ×7 (01:09→20:41)
[2021-08-30 02:21] LABS: BASO % 0 % (0-3); EOS # 0.1 x10^3/uL (0.0-0.7); EOS % 3 % (0-3); HEMATOCRIT 29.7 % (36.0-47.0); LYMPH # 1.2 x10^3/uL (1.0-4.8); LYMPH % 37 % (24-48); MEAN CORPUSCULAR HEMOGLOBIN 31 pg (25-35); MEAN CORPUSCULAR HGB CONC 34 g/dL (31-37); MEAN CORPUSCULAR VOLUME 91 fL (79-100); MONO # 0.4 x10^3/uL (0.0-1.1); MONO % 12 % (0-9); NEUT # 1.6 x10^3/uL (1.8-7.7); NEUT % 48 % (31-73); PLATELET COUNT 144 x10^3/uL (140-400); RED BLOOD COUNT 3.25 x10^6/uL (3.50-5.40); RED CELL DISTRIBUTION WIDTH 20.6 % (11.5-14.5); WHITE BLOOD COUNT 3.3 x10^3/uL (4.0-11.0)
[2021-08-30 02:54] LABS: CALCIUM 8.6 mg/dL (8.5-10.1); CREATININE 0.6 mg/dL (0.6-1.0); GFR 123.9; POTASSIUM 3.5 mmol/L (3.5-5.1)
[2021-08-30 03:00] VITALS: BP 121/80
[2021-08-30 07:00] VITALS: BP 117/74
[2021-08-30] MEDS: BUDESONIDE 0.5 MG/2 ML NEBU. NEB SCH ×2 (07:14→20:00)
[2021-08-30] MEDS: IPRATRPIUM/ALBUTEROL 0.5/2.5MG 3 ML NEBU. NEB SCH ×4 (07:15→20:00)
[2021-08-30] MEDS: FAMOTIDINE 20 MG/2 ML VIAL IVP SCH ×2 (07:41→20:40)
[2021-08-30] MEDS: TPN PER PHARMACY MC PRN (07:45)
[2021-08-30] MEDS: GABAPENTIN 250 MG/5 ML ORAL SOLUTION. JT SCH ×3 (09:00→20:47)
[2021-08-30] MEDS: HYOSCYAMINE ER 0.375 MG TAB.ER.12H PO SCH ×2 (09:00→20:48)
[2021-08-30] MEDS: IPRATROPIUM BROMIDE 0.06% NASAL SPRAY 15ML BOTTLE. NS SCH ×2 (09:00→20:41)
[2021-08-30] MEDS: METOPROLOL TART IMMED RELEASE 25 MG TABLET. PO SCH ×2 (09:00→20:48)
[2021-08-30] MEDS: VALPROIC ACID (AS SODIUM SALT) 250 MG/5 ML SOLUTION. JT SCH ×2 (09:00→20:36)
[2021-08-30] MEDS: IV NORMAL SALINE 1000ML BAG 1,000 ML IV SCH ×2 (09:12→22:40)
[2021-08-30 11:00] VITALS: BP 126/74
[2021-08-30] MEDS: ONDANSETRON PF 4 MG/2 ML VIAL. IVP PRN ×2 (11:00→19:06)
--- NOTE | 2021-08-30 14:02 | PDOC ---
[employer] PROGRESS NOTE Date of Service DOS: DATE: 08/30/21 TIME: 13:59 Chief Complaint Chief Complaint Intractable nausea vomiting abdominal pain Colitis Long complex history of multiple abdominal surgeries with multiple tubes Polypharmacy, narcotic dependence, asthma, DVT, GERD, hypertension, migraines, MRSA, severe gastroparesis, intestinal dysmotility, multiple abdominal surgeries with multiple G-tubes and PEG tubes and J-tubes, cholecystectomy, tonsillectomy, right chest IV port. History of Present Illness History of Present Illness 08/30/2021 Patient seen and examined Chart reviewed Discussed with RN TPN was ordered is still pending arrival She is tolerating IV antibiotics and as needed Dilaudid/Benadryl Vitals/I&O Vitals/I&O: Vital Signs Date Time Temp Pulse Resp B/P (MAP) Pulse Ox O2 Delivery O2 Flow Rate FiO2 08/30/21 13:11 Room Air 08/30/21 11:00 98.1 98 16 126/74 (91) 97 98.1 Physical Exam Physical Exam: Chest; she has a right port General: Alert Heart: Regular rate Lungs: Clear Abdomen: Other (She has a J-tube and a G-tube) Extremities: No clubbing Skin: No rashes Labs Labs: Laboratory Tests Test 08/29/21 16:17 08/29/21 17:16 08/29/21 17:19 08/29/21 21:20 White Blood Count 4.6 x10^3/uL (4.0-11.0) Red Blood Count 3.32 x10^6/uL (3.50-5.40) Hemoglobin 10.1 g/dL (12.0-15.5) Hematocrit 30.0 % (36.0-47.0) Mean Corpuscular Volume 90 fL (79-100) Mean Corpuscular Hemoglobin 30 pg (25-35) Mean Corpuscular Hemoglobin Concent 34 g/dL (31-37) Red Cell Distribution Width 20.9 % (11.5-14.5) Platelet Count 106 x10^3/uL (140-400) Neutrophils (%) (Auto) 61 % (31-73) Lymphocytes (%) (Auto) 26 % (24-48) Monocytes (%) (Auto) 11 % (0-9) Eosinophils (%) (Auto) 2 % (0-3) Basophils (%) (Auto) 0 % (0-3) Neutrophils # (Auto) 2.8 x10^3/uL (1.8-7.7) Lymphocytes # (Auto) 1.2 x10^3/uL (1.0-4.8) Monocytes # (Auto) 0.5 x10^3/uL (0.0-1.1) Eosinophils # (Auto) 0.1 x10^3/uL (0.0-0.7) Basophils # (Auto) 0.0 x10^3/uL (0.0-0.2) Platelet Estimate Decreased (ADEQUATE) Platelet Clumps, EDTA Present Anisocytosis Mod Sodium Level 138 mmol/L (136-145) Potassium Level 3.9 mmol/L (3.5-5.1) Chloride Level 102 mmol/L (98-107) Carbon Dioxide Level 29 mmol/L (21-32) Anion Gap 7 (6-14) Blood Urea Nitrogen 12 mg/dL (7-20) Creatinine 0.7 mg/dL (0.6-1.0) Estimated GFR (Cockcroft-Gault) 103.7 BUN/Creatinine Ratio 17 (6-20) Glucose Level 90 mg/dL (70-99) Calcium Level 8.7 mg/dL (8.5-10.1) Magnesium Level 1.8 mg/dL (1.8-2.4) Total Bilirubin 0.3 mg/dL (0.2-1.0) Aspartate Amino Transf (AST/SGOT) 39 U/L (15-37) Alanine Aminotransferase (ALT/SGPT) 82 U/L (14-59) Alkaline Phosphatase 163 U/L (46-116) Troponin I High Sensitivity < 4 ng/L (4-50) 4 ng/L (4-50) KS-Lde-C-Type Natriuretic Peptide 41 pg/mL (0-124) Total Protein 6.9 g/dL (6.4-8.2) Albumin 3.7 g/dL (3.4-5.0) Albumin/Globulin Ratio 1.2 (1.0-1.7) Lipase 35 U/L (73-393) Ethyl Alcohol Level < 10 mg/dL (0-10) Urine Collection Type Unknown Urine Color (Auto) Light yellow Urine Turbidity Clear Urine pH (Auto) 7.5 (<5.0-8.0) Urine Specific [place] 1.018 (1.000-1.030) Urine Protein (Auto) Negative mg/dL (Negative) Urine Glucose (Auto)(UA) Negative mg/dL (Negative) Urine Ketones (Auto) Negative mg/dL (Negative) Urine Blood (Auto) Negative (Negative) Urine Nitrite Negative (Negative) Urine Bilirubin (Auto) Negative (Negative) Urine Urobilinogen (Auto) 2 mg/dL (Normal) Urine Leukocyte Esterase (Auto) Negative (Negative) Urine RBC 0 /HPF (0-2) Urine WBC Occ /HPF (0-4) Urine Squamous Epithelial Cells Mod /LPF Urine Bacteria Few /HPF (0-FEW) Urine Opiates Screen Pos (NEG) Urine Methadone Screen Neg (NEG) Urine Barbiturates Neg (NEG) Urine Phencyclidine Screen Neg (NEG) Urine Amphetamine/Methamphetamine Neg (NEG) Urine Benzodiazepines Screen Neg (NEG) Urine Cocaine Screen Neg (NEG) Urine Cannabinoids Screen Neg (NEG) Urine Ethyl Alcohol Neg (NEG) Bedside Urine HCG, Qualitative Hcg negative (Negative) Test 08/30/21 02:00 White Blood Count 3.3 x10^3/uL (4.0-11.0) Red Blood Count 3.25 x10^6/uL (3.50-5.40) Hemoglobin 10.0 g/dL (12.0-15.5) Hematocrit 29.7 % (36.0-47.0) Mean Corpuscular Volume 91 fL (79-100) Mean Corpuscular Hemoglobin 31 pg (25-35) Mean Corpuscular Hemoglobin Concent 34 g/dL (31-37) Red Cell Distribution Width 20.6 % (11.5-14.5) Platelet Count 144 x10^3/uL (140-400) Neutrophils (%) (Auto) 48 % (31-73) Lymphocytes (%) (Auto) 37 % (24-48) Monocytes (%) (Auto) 12 % (0-9) Eosinophils (%) (Auto) 3 % (0-3) Basophils (%) (Auto) 0 % (0-3) Neutrophils # (Auto) 1.6 x10^3/uL (1.8-7.7) Lymphocytes # (Auto) 1.2 x10^3/uL (1.0-4.8) Monocytes # (Auto) 0.4 x10^3/uL (0.0-1.1) Eosinophils # (Auto) 0.1 x10^3/uL (0.0-0.7) Basophils # (Auto) 0.0 x10^3/uL (0.0-0.2) Sodium Level 141 mmol/L (136-145) Potassium Level 3.5 mmol/L (3.5-5.1) Chloride Level 104 mmol/L (98-107) Carbon Dioxide Level 26 mmol/L (21-32) Anion Gap 11 (6-14) Blood Urea Nitrogen 6 mg/dL (7-20) Creatinine 0.6 mg/dL (0.6-1.0) Estimated GFR (Cockcroft-Gault) 123.9 Glucose Level 88 mg/dL (70-99) Calcium Level 8.6 mg/dL (8.5-10.1) Troponin I High Sensitivity < 4 ng/L (4-50) Assessment and Plan Assessmemt and Plan Problems Medical Problems: (1) Colitis Status: Acute (2) Intractable abdominal pain Status: Acute Intractable nausea vomiting abdominal pain Colitis Long complex history of multiple abdominal surgeries with multiple tubes Polypharmacy, narcotic dependence, asthma, DVT, GERD, hypertension, migraines, MRSA, severe gastroparesis, intestinal dysmotility, multiple abdominal surgeries with multiple G-tubes and PEG tubes and J-tubes, cholecystectomy, tonsillectomy, right chest IV port. Plan IV antibiotics TPN As needed Dilaudid/Benadryl (she feels this is the only thing that works for her) Home meds when possible DVT prophylaxis Full code Trend labs I have consulted GI and surgery Comment Review of Relevant I have reviewed the following items lalo (where applicable) has been applied. Medications: Current Medications Medications (Trade) Dose Ordered Sig/Kel Route PRN Reason Start Time Stop Time Status Last Admin Dose Admin Hydromorphone HCl (Dilaudid) 1 mg PRN Q15MIN PRN IV/SQ PAIN GREATER THAN 3/10 08/29/21 15:45 08/29/21 19:43 DC 08/29/21 18:47 Metoclopramide HCl (Reglan Vial) 10 mg 1X ONCE IVP 08/29/21 16:00 08/29/21 16:01 DC 08/29/21 16:09 Diphenhydramine HCl (Benadryl) 25 mg 1X ONCE IVP 08/29/21 16:00 08/29/21 16:01 DC 08/29/21 16:11 Levofloxacin/ Dextrose 100 ml @ 100 mls/hr 1X ONCE IV 08/29/21 19:00 08/29/21 19:59 DC 08/29/21 19:02 Info (Tpn Per Pharmacy) 1 each PRN DAILY PRN MC SEE COMMENTS 08/30/21 09:00 08/30/21 07:45 Diphenhydramine HCl (Benadryl) 50 mg PRN QID PRN IV ITCHING 08/29/21 19:00 08/30/21 07:49 Famotidine (Pepcid Vial) 20 mg BID IVP 08/29/21 21:00 08/30/21 07:41 Olanzapine (ZyPREXA) 5 mg QHS PO 08/29/21 21:00 08/29/21 21:31 Ondansetron HCl (Zofran) 4 mg PRN Q6HRS PRN IVP NAUSEA/VOMITING 1ST CHOICE 08/29/21 19:00 08/30/21 11:00 Budesonide (Pulmicort) 0.5 mg RTBID NEB 08/29/21 20:00 08/30/21 07:14 Albuterol/ Ipratropium (Duoneb) 3 ml RTQID NEB 08/29/21 20:00 08/30/21 11:22 Hydromorphone HCl (Dilaudid) 1 mg QIDPRN PRN IVP PAIN 08/29/21 19:00 08/30/21 00:57 DC 08/29/21 20:20 Metronidazole 100 ml @ 100 mls/hr Q8HRS IV 08/29/21 22:00 08/30/21 13:11 Sodium Chloride 1,000 ml @ 75 mls/hr [id number] IV 08/29/21 20:00 08/30/21 09:12 Hydromorphone HCl (Dilaudid) 1 mg PRN Q2HR PRN IVP SEVERE PAIN 7-10 08/30/21 01:00 08/30/21 13:11 Justifications for Admission Other Justification Fever LALITHA WEBB III DO Aug 30, 2021 14:02
--- NOTE | 2021-08-30 14:32 | PDOC2 ---
CONSULT Date of Consult Date of Consult DATE: 08/30/21 TIME: 14:31 Reason for Consult Reason for Consult: Nausea, vomiting, chronic abdominal pain, possible colitis on CT scan History of Present Illness Reason for Visit: This is a 21-year-old female who is been followed primarily by the surgical team here but also by Dr. Doyle in our group. She has a complex and long history of what sounds like a generalized GI motility disorder with gastroparesis but also small bowel dysmotility as she recalls being told at the [facility]. 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 She has had a number of complications from variety of interventions done to help manage her nutritional status including sepsis and infection related to J-tubes and now is on TPN exclusively. Curiously, she will have vomiting of bile even when she tries to take meds via the J-tube she will have some regurgitation of those meds as well. If this is been documented then it does suggest fairly severe generalized motility disorder of the upper GI tract. She relates usually a fairly regular bowel pattern but had 2 weeks of diarrhea a couple of weeks ago that were not explained. She had not been on antibiotics. She is on an antifungal due to her recent fungal bloodstream infection. However the diarrhea resolved about a week ago. On admission here she had what was described as some mild colitis in the ascending colon but it is unimpressive in terms of the CT findings and is not representing an acute colitis at this time without diarrhea or bleeding. Now she has recurrence of what she has had before which is nausea, vomiting and abdominal pain. These are similar symptoms to what has been described on numerous admissions in the past. The CT scan except for some very minimal inflammatory change in the ascending colon is otherwise unrevealing in terms of a source. Her complicated history, her prior surgeries, her consistent use of TPN are all part of this equation as to what might be causing her new symptoms presently. She has been using Zofran exclusively but in the past has been on IV Reglan. 2019 consult: 19 y/o female with a long history of many GI issues previously evaluated at [place], , [facility], [facility], and our office. She tells me her main reason for coming to the [facility] ER is nausea - a chronic issue but worse for a couple weeks w/o precipitating events. Nausea is frequent but not constant. Vomiting after eating a little bit of food PO - sometimes 4-5 hours later or sometimes 10-30 minutes later. Nauseated with J tube feeds as well. Has gained weight. Also describes bloating and early satiety. E-mycin, Zofran, Compazine, and Phenergan unhelpful. Takes pantoprazole QHS because she has some reflux during the night. At one point recently BID PPI was helpful w/ nausea but she stopped because she didn't have enough pills. Tums make everything worse. Asks about Domperidone which she has not tried. Some dizziness and room spinning when standing - a chronic issue since starting Reglan apparently. Last office notes indicate she preferred to continue Reglan despite many discussion concerning risk of tardive dyskinesia - today she tells me she's not sure if Reglan (10mg crushed in tube QID) helps all that much but just not sure. G-tube venting isn't helpful - "not much air comes out." Says pyloroplasty previously discussed w/ Dr. Santana and her mom wants to know if she can have that done while she's here. Additionally c/o constipation. Can "go weeks" without stooling. Last stooled two days ago - "pretty big one." Sometimes has a hard stool. Tries not to strain. Denies use of opioids and NS AIDs. Past treatments include Linzess, Miralax, Senna, Amitiza, MoM, magnesium pills, Trulance, Zelnorm. Recently tried Motegrity - also unhelpful. Nurse says rating abdominal pain 11/29, needing morphine. Pt did not mention abdominal pain to me until I asked - says occurs intermittently, maybe after eating. Located on right side (says upper and lower), is sharp. Resolves with dicyclomine. 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 Many GJ tubes - issues ww/ misplacement in the past and re-positioning w/ IR, though most recently conversion of gastrojejunostomy tube to gastrostomy tube and placement of jejunostomy tube by dr. Santana in 08/2019. H/o H. pylori treated twice. Last EGD 05/2019 showed misplacement of J-tube coiled in stomach. EGD 07/2018 was completely normal w/ no food and minimal fluid and widely patent pylorus. Biopsies negative for celiac and H. pylori. Colonoscopy 09/26/18 (for abnormal MRE suspicious for mild pancolitis) revealed no evidence of colitis and two 2-4mm adenomatous polyps in ascendign colon. GES normal in 08/2018, then abnormal in 08/2019 (below). MRCP 08/2018 w/ hepatic adenoma, normal sized liver, mild hepatic steatosis, and likely syrinx at T12. Past Medical History Cardiovascular: HTN Pulmonary: No pertinent hx CENTRAL NERVOUS SYSTEM: Other GI: GERD, Other Heme/Onc: No pertinent hx Psych: Other Musculoskeletal: Other Rheumatologic: No pertinent hx Infectious disease: Other Renal/: UTI Endocrine: No pertinent hx Past Surgical History Past Surgical History: Appendectomy, Other Family History Family History: Hypertension, Family History Unknown Social History ALCOHOL: none Drugs: None Lives: with Family Current Problem List Problem List Problems Medical Problems: (1) Colitis Status: Acute (2) Intractable abdominal pain Status: Acute Current Medications Current Medications Current Medications Hydromorphone HCl (Dilaudid) 1 mg PRN Q15MIN PRN IV/SQ PAIN GREATER THAN 3/10 Last administered on 08/29/21at 18:47; Start 08/29/21 at 15:45; Stop 08/29/21 at 19:43; Status DC Metoclopramide HCl (Reglan Vial) 10 mg 1X ONCE IVP Last administered on 08/29/21at 16:09; Start 08/29/21 at 16:00; Stop 08/29/21 at 16:01; Status DC Diphenhydramine HCl (Benadryl) 25 mg 1X ONCE IVP Last administered on 08/29/21at 16:11; Start 08/29/21 at 16:00; Stop 08/29/21 at 16:01; Status DC Metronidazole 100 ml @ 100 mls/hr Q8HRS IV ; Start 08/29/21 at 22:00; Status Cancel Levofloxacin/ Dextrose 100 ml @ 100 mls/hr 1X ONCE IV Last administered on 08/29/21at 19:02; Start 08/29/21 at 19:00; Stop 08/29/21 at 19:59; Status DC Info (Tpn Per Pharmacy) 1 each PRN DAILY PRN MC SEE COMMENTS Last administered on 08/30/21at 07:45; Start 08/30/21 at 09:00 Diphenhydramine HCl (Benadryl) 50 mg PRN QID PRN IV ITCHING Last administered on 08/30/21at 07:49; Start 08/29/21 at 19:00 Famotidine (Pepcid Vial) 20 mg BID IVP Last administered on 08/30/21at 07:41; Start 08/29/21 at 21:00 Bisacodyl (Dulcolax Supp) 10 mg PRN DAILY PRN [place] CONSTIPATION, 1sT CHOICE; Start 08/29/21 at 19:00 Acetaminophen/ Hydrocodone Bitart (Lortab 7.5-325/ 15ml Oral Solution) 15 ml PRN Q6HRS PRN PO PAIN; Start 08/29/21 at 19:00 Hyoscyamine (Levbid Er) 0.375 mg BID PO ; Start 08/29/21 at 21:00 Albuterol Sulfate (Ventolin Neb Soln) 2.5 mg PRN Q6HRS PRN NEB ASTHMA; Start 08/29/21 at 19:30 Montelukast Sodium (Singulair) 10 mg PRN DAILY PRN PO ASTHMA; Start 08/29/21 at 19:00 Olanzapine (ZyPREXA) 5 mg QHS PO Last administered on 08/29/21at 21:31; Start 08/29/21 at 21:00 Ondansetron HCl (Zofran) 4 mg PRN Q6HRS PRN IVP NAUSEA/VOMITING 1ST CHOICE Last administered on 08/30/21at 11:00; Start 08/29/21 at 19:00 Scopolamine (Transderm-Scop) 1 patch Q3DAYS TD ; Start 09/01/21 at 09:00 Budesonide (Pulmicort) 0.5 mg RTBID NEB Last administered on 08/30/21at 07:14; Start 08/29/21 at 20:00 Non-Formulary Medication (Fremanezumab-Vfrm (Ajovy Autoinjector)) 225 mg QMONTH SQ ; Start 09/28/21 at 09:00; Status UNV Gabapentin (Neurontin Oral Soln) 300 mg [id number] JT ; Start 08/29/21 at 21:00 Ipratropium [place] (Atrovent Nasal) 2 spray BID NS ; Start 08/29/21 at 21:00 Metoprolol Tartrate (Lopressor) 25 mg BID PO ; Start 08/29/21 at 21:00 Ketotifen Fumarate (Zaditor) 1 drop PRN DAILY PRN OD eye relief; Start 08/29/21 at 19:45 Tizanidine HCl (Zanaflex) 2 mg PRN Q8HRS PRN JT MUSCLE SPASMS; Start 08/29/21 at 19:15 Albuterol/ Ipratropium (Duoneb) 3 ml RTQID NEB Last administered on 08/30/21at 11:22; Start 08/29/21 at 20:00 Valproic Acid (Depakene) 500 mg BID JT ; Start 08/29/21 at 21:00 Non-Formulary Medication ([Tpn Per Pharmacy] ) 1 each PRN DAILY PRN MC SEE COMMENTS; Start 08/29/21 at 19:00; Status UNV Hydromorphone HCl (Dilaudid) 1 mg QIDPRN PRN IVP PAIN Last administered on 08/29/21at 20:20; Start 08/29/21 at 19:00; Stop 08/30/21 at 00:57; Status DC Metronidazole 100 ml @ 100 mls/hr Q8HRS IV Last administered on 08/30/21at 13:11; Start 08/29/21 at 22:00 Levofloxacin/ Dextrose 100 ml @ 100 mls/hr Q24H IV ; Start 08/30/21 at 20:00 Ondansetron HCl (Zofran) 4 mg PRN Q8HRS PRN IVP NAUSEA/VOMITING; Start 08/29/21 at 19:45; Stop 08/30/21 at 19:44; Status UNV Sodium Chloride 1,000 ml @ 75 mls/hr [id number] IV Last administered on 08/30/21at 09:12; Start 08/29/21 at 20:00 Hydromorphone HCl (Dilaudid) 1 mg Q3HRS PRN IVP PAIN; Start 08/29/21 at 19:45; Status UNV Metoclopramide HCl (Reglan Vial) 10 mg PRN Q6HRS PRN IVP NAUSEA/VOMITING, 2nd CHOICE; Start 08/29/21 at 19:45 Hydromorphone HCl (Dilaudid) 1 mg PRN Q2HR PRN IVP SEVERE PAIN 7-10 Last administered on 08/30/21at 13:11; Start 08/30/21 at 01:00 Sodium Chloride 75 meq/Potassium Chloride 50 meq/ Magnesium Sulfate 28 meq/Calcium Gluconate 13 meq/ Multivitamins 10 ml/Zinc/Copper/ Manganese/ Selenium 1 ml/ Total Parenteral Nutrition/Amino Acids/Dextrose/ Fat Emulsion Intravenous 1,650 ml @ 137.5 mls/ hr TPN CONT IV ; Start 08/30/21 at 22:00; Stop 08/31/21 at 09:59 Active Scripts Active Hydrocodone-Apap 7.5-325/15 Soln (Hydrocodone Bit/Acetaminophen) 15 Ml Solution 15 Ml PO PRN Q6HRS PRN Transderm-Scop (Scopolamine) 1 Each Patch.td72 1 Patch TP Q3DAYS [Tpn Per Pharmacy] 1 EACH Each 1 Each MC PRN DAILY PRN 30 Days Ondansetron Hcl 4 Mg/2 Ml Vial (Ondansetron Hcl/Pf) 4 Mg/2 Ml Vial 4 Mg IVP PRN Q6HRS PRN 30 Days Bisacodyl 10 Mg Supp.rect 10 Mg [place] PRN DAILY PRN 30 Days Reported Zyprexa (Olanzapine) 5 Mg Tablet 1 Tab PO QHS Benadryl (Diphenhydramine Hcl) 25 Mg Capsule 2 Cap PO QHS 30 Days Incruse Ellipta (Umeclidinium [place]) 62.5 Mcg Blst.w.dev 62.5 Mcg IH DAILY Advair 250-50 Diskus (Fluticasone/Salmeterol) 1 Each Disk.w.dev 1 Puff IH BID Valproic Acid (Valproate Sodium) 500 Mg/10 Ml Solution 500 Mg JT BID Metoprolol Tartrate 75 Mg Tablet 25 Mg PO BID Levbid (Hyoscyamine Sulfate) 0.375 Mg Tab.er.12h 0.375 Mg JT BID Ajovy Autoinjector (Fremanezumab-Vfrm) 225 Mg/1.5 Ml Auto.injct 225 Mg SQ QMONTH Tizanidine Hcl 2 Mg Capsule 2 Mg JT Q8HRS PRN Gabapentin 600 Mg Tablet 300 Mg JT TID Olopatadine HCl 5 Ml Drops 0.1 % OP PRN DAILY PRN Proair Hfa (Albuterol Sulfate) 8.5 Gm Hfa.aer.ad 2 Puff IH PRN Q4-6HRS PRN 21 Days Ipratropium [place] 30 Ml Catano 1 Catano NS BID Duoneb 0.5-3(2.5) Mg/3 Ml (Albuterol/Ipratropium) 3 Ml Ampul.neb 3 Ml NEB PRN QID PRN Montelukast Sodium Tablet (Montelukast Sodium) 10 Mg Tablet 10 Mg PO DAILY PRN Allergies Allergies: Coded Allergies: iron (Verified Allergy, Severe, Anaphylaxis, 08/28/21) Penicillins (Verified Allergy, Intermediate, LIGHT RASH CHILD, 08/28/21) TOLERATES ZOSYN Sulfa (Sulfonamide Antibiotics) (Verified Allergy, Intermediate, 08/28/21) I S O L A T I O N *CONTACT* (Verified Allergy, Unknown, 08/28/21) mrsa Vitals VITALS Vital Signs Date Time Temp Pulse Resp B/P (MAP) Pulse Ox O2 Delivery O2 Flow Rate FiO2 08/30/21 13:11 Room Air 08/30/21 11:00 98.1 98 16 126/74 (91) 97 98.1 Labs Labs Laboratory Tests Test 08/29/21 16:17 08/29/21 17:16 08/29/21 17:19 08/29/21 21:20 White Blood Count 4.6 x10^3/uL (4.0-11.0) Red Blood Count 3.32 x10^6/uL (3.50-5.40) Hemoglobin 10.1 g/dL (12.0-15.5) Hematocrit 30.0 % (36.0-47.0) Mean Corpuscular Volume 90 fL (79-100) Mean Corpuscular Hemoglobin 30 pg (25-35) Mean Corpuscular Hemoglobin Concent 34 g/dL (31-37) Red Cell Distribution Width 20.9 % (11.5-14.5) Platelet Count 106 x10^3/uL (140-400) Neutrophils (%) (Auto) 61 % (31-73) Lymphocytes (%) (Auto) 26 % (24-48) Monocytes (%) (Auto) 11 % (0-9) Eosinophils (%) (Auto) 2 % (0-3) Basophils (%) (Auto) 0 % (0-3) Neutrophils # (Auto) 2.8 x10^3/uL (1.8-7.7) Lymphocytes # (Auto) 1.2 x10^3/uL (1.0-4.8) Monocytes # (Auto) 0.5 x10^3/uL (0.0-1.1) Eosinophils # (Auto) 0.1 x10^3/uL (0.0-0.7) Basophils # (Auto) 0.0 x10^3/uL (0.0-0.2) Platelet Estimate Decreased (ADEQUATE) Platelet Clumps, EDTA Present Anisocytosis Mod Sodium Level 138 mmol/L (136-145) Potassium Level 3.9 mmol/L (3.5-5.1) Chloride Level 102 mmol/L (98-107) Carbon Dioxide Level 29 mmol/L (21-32) Anion Gap 7 (6-14) Blood Urea Nitrogen 12 mg/dL (7-20) Creatinine 0.7 mg/dL (0.6-1.0) Estimated GFR (Cockcroft-Gault) 103.7 BUN/Creatinine Ratio 17 (6-20) Glucose Level 90 mg/dL (70-99) Calcium Level 8.7 mg/dL (8.5-10.1) Magnesium Level 1.8 mg/dL (1.8-2.4) Total Bilirubin 0.3 mg/dL (0.2-1.0) Aspartate Amino Transf (AST/SGOT) 39 U/L (15-37) Alanine Aminotransferase (ALT/SGPT) 82 U/L (14-59) Alkaline Phosphatase 163 U/L (46-116) Troponin I High Sensitivity < 4 ng/L (4-50) 4 ng/L (4-50) NE-Cai-Q-Type Natriuretic Peptide 41 pg/mL (0-124) Total Protein 6.9 g/dL (6.4-8.2) Albumin 3.7 g/dL (3.4-5.0) Albumin/Globulin Ratio 1.2 (1.0-1.7) Lipase 35 U/L (73-393) Ethyl Alcohol Level < 10 mg/dL (0-10) Urine Collection Type Unknown Urine Color (Auto) Light yellow Urine Turbidity Clear Urine pH (Auto) 7.5 (<5.0-8.0) Urine Specific [place] 1.018 (1.000-1.030) Urine Protein (Auto) Negative mg/dL (Negative) Urine Glucose (Auto)(UA) Negative mg/dL (Negative) Urine Ketones (Auto) Negative mg/dL (Negative) Urine Blood (Auto) Negative (Negative) Urine Nitrite Negative (Negative) Urine Bilirubin (Auto) Negative (Negative) Urine Urobilinogen (Auto) 2 mg/dL (Normal) Urine Leukocyte Esterase (Auto) Negative (Negative) Urine RBC 0 /HPF (0-2) Urine WBC Occ /HPF (0-4) Urine Squamous Epithelial Cells Mod /LPF Urine Bacteria Few /HPF (0-FEW) Urine Opiates Screen Pos (NEG) Urine Methadone Screen Neg (NEG) Urine Barbiturates Neg (NEG) Urine Phencyclidine Screen Neg (NEG) Urine Amphetamine/Methamphetamine Neg (NEG) Urine Benzodiazepines Screen Neg (NEG) Urine Cocaine Screen Neg (NEG) Urine Cannabinoids Screen Neg (NEG) Urine Ethyl Alcohol Neg (NEG) Bedside Urine HCG, Qualitative Hcg negative (Negative) Test 08/30/21 02:00 White Blood Count 3.3 x10^3/uL (4.0-11.0) Red Blood Count 3.25 x10^6/uL (3.50-5.40) Hemoglobin 10.0 g/dL (12.0-15.5) Hematocrit 29.7 % (36.0-47.0) Mean Corpuscular Volume 91 fL (79-100) Mean Corpuscular Hemoglobin 31 pg (25-35) Mean Corpuscular Hemoglobin Concent 34 g/dL (31-37) Red Cell Distribution Width 20.6 % (11.5-14.5) Platelet Count 144 x10^3/uL (140-400) Neutrophils (%) (Auto) 48 % (31-73) Lymphocytes (%) (Auto) 37 % (24-48) Monocytes (%) (Auto) 12 % (0-9) Eosinophils (%) (Auto) 3 % (0-3) Basophils (%) (Auto) 0 % (0-3) Neutrophils # (Auto) 1.6 x10^3/uL (1.8-7.7) Lymphocytes # (Auto) 1.2 x10^3/uL (1.0-4.8) Monocytes # (Auto) 0.4 x10^3/uL (0.0-1.1) Eosinophils # (Auto) 0.1 x10^3/uL (0.0-0.7) Basophils # (Auto) 0.0 x10^3/uL (0.0-0.2) Sodium Level 141 mmol/L (136-145) Potassium Level 3.5 mmol/L (3.5-5.1) Chloride Level 104 mmol/L (98-107) Carbon Dioxide Level 26 mmol/L (21-32) Anion Gap 11 (6-14) Blood Urea Nitrogen 6 mg/dL (7-20) Creatinine 0.6 mg/dL (0.6-1.0) Estimated GFR (Cockcroft-Gault) 123.9 Glucose Level 88 mg/dL (70-99) Calcium Level 8.6 mg/dL (8.5-10.1) Troponin I High Sensitivity < 4 ng/L (4-50) Laboratory Tests Test 08/29/21 16:17 08/29/21 17:16 08/29/21 17:19 08/29/21 21:20 White Blood Count 4.6 x10^3/uL (4.0-11.0) Red Blood Count 3.32 x10^6/uL (3.50-5.40) Hemoglobin 10.1 g/dL (12.0-15.5) Hematocrit 30.0 % (36.0-47.0) Mean Corpuscular Volume 90 fL (79-100) Mean Corpuscular Hemoglobin 30 pg (25-35) Mean Corpuscular Hemoglobin Concent 34 g/dL (31-37) Red Cell Distribution Width 20.9 % (11.5-14.5) Platelet Count 106 x10^3/uL (140-400) Neutrophils (%) (Auto) 61 % (31-73) Lymphocytes (%) (Auto) 26 % (24-48) Monocytes (%) (Auto) 11 % (0-9) Eosinophils (%) (Auto) 2 % (0-3) Basophils (%) (Auto) 0 % (0-3) Neutrophils # (Auto) 2.8 x10^3/uL (1.8-7.7) Lymphocytes # (Auto) 1.2 x10^3/uL (1.0-4.8) Monocytes # (Auto) 0.5 x10^3/uL (0.0-1.1) Eosinophils # (Auto) 0.1 x10^3/uL (0.0-0.7) Basophils # (Auto) 0.0 x10^3/uL (0.0-0.2) Platelet Estimate Decreased (ADEQUATE) Platelet Clumps, EDTA Present Anisocytosis Mod Sodium Level 138 mmol/L (136-145) Potassium Level 3.9 mmol/L (3.5-5.1) Chloride Level 102 mmol/L (98-107) Carbon Dioxide Level 29 mmol/L (21-32) Anion Gap 7 (6-14) Blood Urea Nitrogen 12 mg/dL (7-20) Creatinine 0.7 mg/dL (0.6-1.0) Estimated GFR (Cockcroft-Gault) 103.7 BUN/Creatinine Ratio 17 (6-20) Glucose Level 90 mg/dL (70-99) Calcium Level 8.7 mg/dL (8.5-10.1) Magnesium Level 1.8 mg/dL (1.8-2.4) Total Bilirubin 0.3 mg/dL (0.2-1.0) Aspartate Amino Transf (AST/SGOT) 39 U/L (15-37) Alanine Aminotransferase (ALT/SGPT) 82 U/L (14-59) Alkaline Phosphatase 163 U/L (46-116) Troponin I High Sensitivity < 4 ng/L (4-50) 4 ng/L (4-50) PL-Vmu-L-Type Natriuretic Peptide 41 pg/mL (0-124) Total Protein 6.9 g/dL (6.4-8.2) Albumin 3.7 g/dL (3.4-5.0) Albumin/Globulin Ratio 1.2 (1.0-1.7) Lipase 35 U/L (73-393) Ethyl Alcohol Level < 10 mg/dL (0-10) Urine Collection Type Unknown Urine Color (Auto) Light yellow Urine Turbidity Clear Urine pH (Auto) 7.5 (<5.0-8.0) Urine Specific [place] 1.018 (1.000-1.030) Urine Protein (Auto) Negative mg/dL (Negative) Urine Glucose (Auto)(UA) Negative mg/dL (Negative) Urine Ketones (Auto) Negative mg/dL (Negative) Urine Blood (Auto) Negative (Negative) Urine Nitrite Negative (Negative) Urine Bilirubin (Auto) Negative (Negative) Urine Urobilinogen (Auto) 2 mg/dL (Normal) Urine Leukocyte Esterase (Auto) Negative (Negative) Urine RBC 0 /HPF (0-2) Urine WBC Occ /HPF (0-4) Urine Squamous Epithelial Cells Mod /LPF Urine Bacteria Few /HPF (0-FEW) Urine Opiates Screen Pos (NEG) Urine Methadone Screen Neg (NEG) Urine Barbiturates Neg (NEG) Urine Phencyclidine Screen Neg (NEG) Urine Amphetamine/Methamphetamine Neg (NEG) Urine Benzodiazepines Screen Neg (NEG) Urine Cocaine Screen Neg (NEG) Urine Cannabinoids Screen Neg (NEG) Urine Ethyl Alcohol Neg (NEG) Bedside Urine HCG, Qualitative Hcg negative (Negative) Test 08/30/21 02:00 White Blood Count 3.3 x10^3/uL (4.0-11.0) Red Blood Count 3.25 x10^6/uL (3.50-5.40) Hemoglobin 10.0 g/dL (12.0-15.5) Hematocrit 29.7 % (36.0-47.0) Mean Corpuscular Volume 91 fL (79-100) Mean Corpuscular Hemoglobin 31 pg (25-35) Mean Corpuscular Hemoglobin Concent 34 g/dL (31-37) Red Cell Distribution Width 20.6 % (11.5-14.5) Platelet Count 144 x10^3/uL (140-400) Neutrophils (%) (Auto) 48 % (31-73) Lymphocytes (%) (Auto) 37 % (24-48) Monocytes (%) (Auto) 12 % (0-9) Eosinophils (%) (Auto) 3 % (0-3) Basophils (%) (Auto) 0 % (0-3) Neutrophils # (Auto) 1.6 x10^3/uL (1.8-7.7) Lymphocytes # (Auto) 1.2 x10^3/uL (1.0-4.8) Monocytes # (Auto) 0.4 x10^3/uL (0.0-1.1) Eosinophils # (Auto) 0.1 x10^3/uL (0.0-0.7) Basophils # (Auto) 0.0 x10^3/uL (0.0-0.2) Sodium Level 141 mmol/L (136-145) Potassium Level 3.5 mmol/L (3.5-5.1) Chloride Level 104 mmol/L (98-107) Carbon Dioxide Level 26 mmol/L (21-32) Anion Gap 11 (6-14) Blood Urea Nitrogen 6 mg/dL (7-20) Creatinine 0.6 mg/dL (0.6-1.0) Estimated GFR (Cockcroft-Gault) 123.9 Glucose Level 88 mg/dL (70-99) Calcium Level 8.6 mg/dL (8.5-10.1) Troponin I High Sensitivity < 4 ng/L (4-50) Images Images CT scan FINDINGS: Heart size is normal. No pericardial effusion. Visualized lung bases are clear. No pleural effusion. Evaluation of solid organs limited secondary to noncontrast technique. Liver, spleen, pancreas and adrenals are unremarkable. Gallbladder surgically absent. No perinephric inflammation or hydronephrosis. No renal or ureteral calculi are identified. Bladder is partially distended and not well evaluated. Uterus is not enlarged. No abnormal adnexal mass. Small amount of free fluid noted in the pelvis. No free intra-abdominal air. There is fat stranding involving the ascending colon. Appendix is absent. Small bowel is unremarkable. Percutaneous G-tube and J-tube are noted. Abdominal aorta has normal course and caliber. No enlarged intra-abdominal lymph nodes are identified. No suspicious osseous lesions or acute IMPRESSION: 1. Mild fat stranding involving the ascending colon may represent colitis. Correlate with symptomatology. 2. Small amount of free fluid in the pelvis. Assessment/Plan Assessment/Plan Abdominal pain with nausea and vomiting. These have occurred on numerous occasions. Complex medical history of probable significant GI motility disorder but also has other issues including some psychiatric complaints which may be contributing as well. Her CT scan is really unrevealing. There is minimal inflammatory change in the ascending colon. She did have diarrhea 2 weeks ago but that has resolved. If she develops diarrhea then we certainly will look for a source for the diarrhea with C. difficile and enteric pathogens. I do not think however this minimal inflammation in the ascending colon is a source of any of her new symptoms. Plan: We will resume IV Reglan as well as Zofran to help control her nausea symptoms If she develops loose stools or diarrhea then we will culture for enteric pathogens and check for C. difficile toxin. We will defer to other consultants that have seen her before regarding any other interventions. However since she has been to both the [facility] and [facility] for second opinions and evaluations and treatment options, its unlikely that we will come up with any additional treatment approaches at this point. BREANA RAZO MD Aug 30, 2021 14:32
[2021-08-30 15:00] VITALS: BP 119/67
[2021-08-30 19:00] VITALS: BP 98/57
[2021-08-30] MEDS: OLANZapine 5 MG TABLET PO SCH (20:49)
--- NOTE | 2021-08-30 21:58 | NUR ---
Patient has IV NS ordered running at 75mL/Hr; TPN at 137.5/hr. Dr. Cooley paged for order clarification. order to hold NS while TPN is running has been received.
[2021-08-30] MEDS ORDERED: AMINO ACID IV SCH (22:00)
[2021-08-30] MEDS ORDERED: TOTAL PARENTERAL NUTRITION IV SCH (22:00)
[2021-08-30] MEDS ORDERED: [UNRECOGNIZED DRUG - OTHER] IV SCH (22:00)
[2021-08-30] MEDS ORDERED: DEXTROSE 70% IV SCH (22:00)
[2021-08-30 22:58] VITALS: BP 114/74
[2021-08-31] MEDS: HYDROmorphone 2 MG/ML INJ. IVP PRN ×3 (00:10→06:08)
--- NOTE | 2021-08-31 00:55 | EKG ---
[facility] [address] [place] [address] Test Date: 2021-08-29 Test Time: 15:58:54 Pat Name: SUNITHA SCHULTZ Department: Room: 402 1 Gender: F Orthotist/Prosthetist: : 2000 Requested By: HEYDI MORRIS Order Number: [id number] Reading MD: Isael Quinones Measurements Intervals [place] Rate: 107 P: 26 MS: 162 QRS: 9 QRSD: 60 T: 10 QT: 316 QTc: 421 Interpretive Statements SINUS TACHYCARDIA LEFT ATRIAL ABNORMALITY Electronically Signed On 09-04-2021 14:09:18 CDT by Isael Quinones
[2021-08-31 03:00] VITALS: BP 138/86
[2021-08-31] MEDS: ONDANSETRON PF 4 MG/2 ML VIAL. IVP PRN (03:07)
[2021-08-31] MEDS: diphenhydrAMINE 50 MG/ML VIAL IV PRN (04:52)
[2021-08-31 06:23] LABS: CALCIUM 8.9 mg/dL (8.5-10.1); CREATININE 0.7 mg/dL (0.6-1.0); GFR 103.7; PHOSPHORUS 3.9 mg/dL (2.6-4.7); POTASSIUM 3.9 mmol/L (3.5-5.1)
[2021-08-31 07:00] VITALS: BP 116/73
[2021-08-31] MEDS: IPRATRPIUM/ALBUTEROL 0.5/2.5MG 3 ML NEBU. NEB SCH (07:33)
[2021-08-31] MEDS: BUDESONIDE 0.5 MG/2 ML NEBU. NEB SCH (07:33)
--- NOTE | 2021-08-31 08:13 | PDOC ---
[employer] PROGRESS NOTE Date of Service DOS: DATE: 08/31/21 TIME: 08:11 Chief Complaint Chief Complaint Intractable nausea vomiting abdominal pain Colitis Long complex history of multiple abdominal surgeries with multiple tubes Polypharmacy, narcotic dependence, asthma, DVT, GERD, hypertension, migraines, MRSA, severe gastroparesis, intestinal dysmotility, multiple abdominal surgeries with multiple G-tubes and PEG tubes and J-tubes, cholecystectomy, tonsillectomy, right chest IV port. History of Present Illness History of Present Illness 08/30/2021 Patient seen and examined Chart reviewed Discussed with RN TPN was ordered is still pending arrival She is tolerating IV antibiotics and as needed Dilaudid/Benadryl 08/31: Patient seen and evaluated. She reports improvement in abdominal pain and states her stools are starting to become more formed. Requesting to be discharged by tomorrow if possible. Also requesting medication for nausea. Vitals/I&O Vitals/I&O: Vital Signs Date Time Temp Pulse Resp B/P (MAP) Pulse Ox O2 Delivery O2 Flow Rate FiO2 08/31/21 07:33 96 Room Air 08/31/21 03:00 98.0 100 16 138/86 (103) 98.0 I & O 08/30/21 08/30/21 08/31/21 15:00 23:00 07:00 Output Total 250 ml Balance -250 ml Physical Exam Physical Exam: Chest; she has a right port General: Alert, Cooperative, No acute distress Heart: Regular rate Lungs: Clear Abdomen: Other (She has a J-tube and a G-tube) Extremities: No clubbing Skin: No rashes Labs Labs: Laboratory Tests Test 08/31/21 05:45 Sodium Level 138 mmol/L (136-145) Potassium Level 3.9 mmol/L (3.5-5.1) Chloride Level 103 mmol/L (98-107) Carbon Dioxide Level 25 mmol/L (21-32) Anion Gap 10 (6-14) Blood Urea Nitrogen 8 mg/dL (7-20) Creatinine 0.7 mg/dL (0.6-1.0) Estimated GFR (Cockcroft-Gault) 103.7 Glucose Level 105 mg/dL (70-99) Calcium Level 8.9 mg/dL (8.5-10.1) Phosphorus Level 3.9 mg/dL (2.6-4.7) Magnesium Level 2.0 mg/dL (1.8-2.4) Assessment and Plan Assessmemt and Plan Problems Medical Problems: (1) Colitis Status: Acute (2) Intractable abdominal pain Status: Acute Comment Review of Relevant I have reviewed the following items lalo (where applicable) has been applied. Medications: Current Medications Medications (Trade) Dose Ordered Sig/Kel Route PRN Reason Start Time Stop Time Status Last Admin Dose Admin Info (Tpn Per Pharmacy) 1 each PRN DAILY PRN MC SEE COMMENTS 08/30/21 09:00 08/30/21 07:45 Levofloxacin/ Dextrose 100 ml @ 100 mls/hr Q24H IV 08/30/21 20:00 08/30/21 19:08 Sodium Chloride 75 meq/Potassium Chloride 50 meq/ Magnesium Sulfate 28 meq/Calcium Gluconate 13 meq/ Multivitamins 10 ml/Zinc/Copper/ Manganese/ Selenium 1 ml/ Total Parenteral Nutrition/Amino Acids/Dextrose/ Fat Emulsion Intravenous 1,650 ml @ 137.5 mls/ hr TPN CONT IV 08/30/21 22:00 08/31/21 09:59 08/30/21 22:37 Hydromorphone HCl (Dilaudid) 1 mg PRN Q3HRS PRN IVP PAIN 08/30/21 17:00 08/31/21 06:08 Justifications for Admission Other Justification Fever ALE JONES MD Aug 31, 2021 08:13
[2021-08-31] MEDS: VALPROIC ACID (AS SODIUM SALT) 250 MG/5 ML SOLUTION. JT SCH (09:00)
[2021-08-31] MEDS: FAMOTIDINE 20 MG/2 ML VIAL IVP SCH (09:00)
[2021-08-31] MEDS: METOPROLOL TART IMMED RELEASE 25 MG TABLET. PO SCH (09:00)
[2021-08-31] MEDS: HYOSCYAMINE ER 0.375 MG TAB.ER.12H PO SCH (09:00)
[2021-08-31] MEDS: IPRATROPIUM BROMIDE 0.06% NASAL SPRAY 15ML BOTTLE. NS SCH (09:00)
[2021-08-31] MEDS: GABAPENTIN 250 MG/5 ML ORAL SOLUTION. JT SCH (09:00)
--- NOTE | 2021-08-31 09:04 | PDOC2 ---
CONSULT Date of Consult Date of Consult DATE: 08/31/21 TIME: 08:59 Reason for Consult Reason for Consult: abd pain Referring Physician Referring Physician: ER Identification/Chief Complaint Chief Complaint abd pain Source Source: Chart review, Patient History of Present Illness Reason for Visit: Patient is well known to practice. Follow for her TPN, she was just seen in clinic Tuesday. Was having nausea, vomiting, and ongoing abdominal pain. She reports leg swelling at that times. Diarrhea has stopped over a week ago. Currently leg swelling has resolved. Past Medical History Cardiovascular: HTN Pulmonary: No pertinent hx CENTRAL NERVOUS SYSTEM: Other GI: GERD, Other Heme/Onc: No pertinent hx Psych: Other Musculoskeletal: Other Rheumatologic: No pertinent hx Infectious disease: Other Renal/: UTI Endocrine: No pertinent hx Past Surgical History Past Surgical History: Appendectomy, Other (j tube, g tubes) Family History Family History: Hypertension, Family History Unknown Social History ALCOHOL: none Drugs: None Lives: with Family Current Problem List Problem List Problems Medical Problems: (1) Colitis Status: Acute (2) Intractable abdominal pain Status: Acute Current Medications Current Medications Current Medications Hydromorphone HCl (Dilaudid) 1 mg PRN Q15MIN PRN IV/SQ PAIN GREATER THAN 3/10 Last administered on 08/29/21at 18:47; Start 08/29/21 at 15:45; Stop 08/29/21 at 19:43; Status DC Metoclopramide HCl (Reglan Vial) 10 mg 1X ONCE IVP Last administered on at 16:09; Start 08/29/21 at 16:00; Stop 08/29/21 at 16:01; Status DC Diphenhydramine HCl (Benadryl) 25 mg 1X ONCE IVP Last administered on 08/29/21at 16:11; Start 08/29/21 at 16:00; Stop 08/29/21 at 16:01; Status DC Metronidazole 100 ml @ 100 mls/hr Q8HRS IV ; Start 08/29/21 at 22:00; Status Cancel Levofloxacin/ Dextrose 100 ml @ 100 mls/hr 1X ONCE IV Last administered on 08/29/21at 19:02; Start 08/29/21 at 19:00; Stop 08/29/21 at 19:59; Status DC Info (Tpn Per Pharmacy) 1 each PRN DAILY PRN MC SEE COMMENTS Last administered on 08/30/21at 07:45; Start 08/30/21 at 09:00 Diphenhydramine HCl (Benadryl) 50 mg PRN QID PRN IV ITCHING Last administered on 08/31/21at 04:52; Start 08/29/21 at 19:00 Famotidine (Pepcid Vial) 20 mg BID IVP Last administered on 08/30/21at 20:40; Start 08/29/21 at 21:00 Bisacodyl (Dulcolax Supp) 10 mg PRN DAILY PRN MI CONSTIPATION, 1sT CHOICE; Start 08/29/21 at 19:00 Acetaminophen/ Hydrocodone Bitart (Lortab 7.5-325/ 15ml Oral Solution) 15 ml PRN Q6HRS PRN PO PAIN; Start 08/29/21 at 19:00 Hyoscyamine (Levbid Er) 0.375 mg BID PO ; Start 08/29/21 at 21:00 Albuterol Sulfate (Ventolin Neb Soln) 2.5 mg PRN Q6HRS PRN NEB ASTHMA; Start 08/29/21 at 19:30 Montelukast Sodium (Singulair) 10 mg PRN DAILY PRN PO ASTHMA; Start 08/29/21 at 19:00 Olanzapine (ZyPREXA) 5 mg QHS PO Last administered on 08/29/21at 21:31; Start 08/29/21 at 21:00 Ondansetron HCl (Zofran) 4 mg PRN Q6HRS PRN IVP NAUSEA/VOMITING 1ST CHOICE Last administered on 08/31/21at 03:07; Start 08/29/21 at 19:00 Scopolamine (Transderm-Scop) 1 patch Q3DAYS TD ; Start 09/01/21 at 09:00 Budesonide (Pulmicort) 0.5 mg RTBID NEB Last administered on 08/31/21at 07:33; Start 08/29/21 at 20:00 Non-Formulary Medication (Fremanezumab-Vfrm (Ajovy Autoinjector)) 225 mg QMONTH SQ ; Start 09/28/21 at 09:00; Status UNV Gabapentin (Neurontin Oral Soln) 300 mg [id number] JT ; Start 08/29/21 at 21:00 Ipratropium [place] (Atrovent Nasal) 2 spray BID NS Last administered on 08/30/21at 20:41; Start 08/29/21 at 21:00 Metoprolol Tartrate (Lopressor) 25 mg BID PO ; Start 08/29/21 at 21:00 Ketotifen Fumarate (Zaditor) 1 drop PRN DAILY PRN OD eye relief; Start 08/29/21 at 19:45 Tizanidine HCl (Zanaflex) 2 mg PRN Q8HRS PRN JT MUSCLE SPASMS; Start 08/29/21 at 19:15 Albuterol/ Ipratropium (Duoneb) 3 ml RTQID NEB Last administered on 08/31/21at 07:33; Start 08/29/21 at 20:00 Valproic Acid (Depakene) 500 mg BID JT Last administered on 08/30/21at 20:36; Start 08/29/21 at 21:00 Non-Formulary Medication ([Tpn Per Pharmacy] ) 1 each PRN DAILY PRN MC SEE COMMENTS; Start 08/29/21 at 19:00; Status UNV Hydromorphone HCl (Dilaudid) 1 mg QIDPRN PRN IVP PAIN Last administered on 08/29/21at 20:20; Start 08/29/21 at 19:00; Stop 08/30/21 at 00:57; Status DC Metronidazole 100 ml @ 100 mls/hr Q8HRS IV Last administered on 08/31/21at 06:08; Start 08/29/21 at 22:00 Levofloxacin/ Dextrose 100 ml @ 100 mls/hr Q24H IV Last administered on 08/30/21at 19:08; Start 08/30/21 at 20:00 Ondansetron HCl (Zofran) 4 mg PRN Q8HRS PRN IVP NAUSEA/VOMITING; Start 08/29/21 at 19:45; Stop 08/30/21 at 19:44; Status UNV Sodium Chloride 1,000 ml @ 75 mls/hr [id number] IV Last administered on 08/30/21at 09:12; Start 08/29/21 at 20:00 Hydromorphone HCl (Dilaudid) 1 mg Q3HRS PRN IVP PAIN; Start 08/29/21 at 19:45; Status UNV Metoclopramide HCl (Reglan Vial) 10 mg PRN Q6HRS PRN IVP NAUSEA/VOMITING, 2nd CHOICE Last administered on 08/30/21at 22:24; Start 08/29/21 at 19:45 Hydromorphone HCl (Dilaudid) 1 mg PRN Q2HR PRN IVP SEVERE PAIN 7-10 Last administered on 08/30/21at 13:11; Start 08/30/21 at 01:00; Stop 08/30/21 at 16:53; Status DC Sodium Chloride 75 meq/Potassium Chloride 50 meq/ Magnesium Sulfate 28 meq/Calcium Gluconate 13 meq/ Multivitamins 10 ml/Zinc/Copper/ Manganese/ Selenium 1 ml/ Total Parenteral Nutrition/Amino Acids/Dextrose/ Fat Emulsion Intravenous 1,650 ml @ 137.5 mls/ hr TPN CONT IV Last administered on 08/30/21at 22:37; Start 08/30/21 at 22:00; Stop 08/31/21 at 09:59 Hydromorphone HCl (Dilaudid) 1 mg PRN Q3HRS PRN IVP PAIN Last administered on 08/31/21at 06:08; Start 08/30/21 at 17:00 Heparin Sodium (Porcine) (Heparin Sodium) 5,000 unit Q8HRS SQ ; Start 08/31/21 at 14:00 Lorazepam (Ativan Inj) 1 mg PRN Q4HRS PRN IVP ANXIETY / AGITATION; Start at 08:15 Active Scripts Active Hydrocodone-Apap 7.5-325/15 Soln (Hydrocodone Bit/Acetaminophen) 15 Ml Solution 15 Ml PO PRN Q6HRS PRN Transderm-Scop (Scopolamine) 1 Each Patch.td72 1 Patch TP Q3DAYS [Tpn Per Pharmacy] 1 EACH Each 1 Each MC PRN DAILY PRN 30 Days Ondansetron Hcl 4 Mg/2 Ml Vial (Ondansetron Hcl/Pf) 4 Mg/2 Ml Vial 4 Mg IVP PRN Q6HRS PRN 30 Days Bisacodyl 10 Mg Supp.rect 10 Mg [place] PRN DAILY PRN 30 Days Reported Zyprexa (Olanzapine) 5 Mg Tablet 1 Tab PO QHS Benadryl (Diphenhydramine Hcl) 25 Mg Capsule 2 Cap PO QHS 30 Days Incruse Ellipta (Umeclidinium [place]) 62.5 Mcg Blst.w.dev 62.5 Mcg IH DAILY Advair 250-50 Diskus (Fluticasone/Salmeterol) 1 Each Disk.w.dev 1 Puff IH BID Valproic Acid (Valproate Sodium) 500 Mg/10 Ml Solution 500 Mg JT BID Metoprolol Tartrate 75 Mg Tablet 25 Mg PO BID Levbid (Hyoscyamine Sulfate) 0.375 Mg Tab.er.12h 0.375 Mg JT BID Ajovy Autoinjector (Fremanezumab-Vfrm) 225 Mg/1.5 Ml Auto.injct 225 Mg SQ QMONTH Tizanidine Hcl 2 Mg Capsule 2 Mg JT Q8HRS PRN Gabapentin 600 Mg Tablet 300 Mg JT TID Olopatadine HCl 5 Ml Drops 0.1 % OP PRN DAILY PRN Proair Hfa (Albuterol Sulfate) 8.5 Gm Hfa.aer.ad 2 Puff IH PRN Q4-6HRS PRN 21 Days Ipratropium [place] 30 Ml [place] 1 [place] NS BID Duoneb 0.5-3(2.5) Mg/3 Ml (Albuterol/Ipratropium) 3 Ml Ampul.neb 3 Ml NEB PRN QID PRN Montelukast Sodium Tablet (Montelukast Sodium) 10 Mg Tablet 10 Mg PO DAILY PRN Allergies Allergies: Coded Allergies: iron (Verified Allergy, Severe, Anaphylaxis, 08/28/21) Penicillins (Verified Allergy, Intermediate, LIGHT RASH CHILD, 08/28/21) TOLERATES ZOSYN Sulfa (Sulfonamide Antibiotics) (Verified Allergy, Intermediate, 08/28/21) I S O L A T I O N *CONTACT* (Verified Allergy, Unknown, 08/28/21) mrsa ROS General: YES: Fatigue; No: Chills PSYCHOLOGICAL ROS: YES: Anxiety; No: Depression Eyes: No Blurry vision, No Double vision HEENT: No: Heacaches, Sore Throat Hematological and Lymphatic: No: Bleeding Problems, Blood Clots Respiratory: No: Cough, SOB with excertion Cardiovascular: No Chest Pain, No Palpitations Gastrointestinal: Yes Other (see hpi) Genitourinary: No Dysuria, No Retention Musculoskeletal: No Joint Pain, No Muscle Pain Neurological: No Impaired Coord/balance, No Numbness/Tingling Skin: No Pruritus, No Rash Physical Exam General: Alert, Oriented X3, Cooperative HEENT: Atraumatic, PERRLA Lungs: Clear to auscultation, Normal air movement Heart: Regular rate, Normal S1, Normal S2 Abdomen: Soft, Other (g tube, j tube in place) Extremities: No clubbing, No cyanosis Skin: No rashes, No breakdown Neuro: Normal gait, Normal speech Psych/Mental Status: Mental status NL, Mood NL MUSCULOSKELETAL: No deformity, No muscular tenderness noted Vitals VITALS Vital Signs Date Time Temp Pulse Resp B/P (MAP) Pulse Ox O2 Delivery O2 Flow Rate FiO2 08/31/21 07:33 96 Room Air 08/31/21 07:00 97.8 95 16 116/73 (87) 97.8 Labs Labs Laboratory Tests Test 08/29/21 16:17 08/29/21 17:16 08/29/21 17:19 08/29/21 21:20 White Blood Count 4.6 x10^3/uL (4.0-11.0) Red Blood Count 3.32 x10^6/uL (3.50-5.40) Hemoglobin 10.1 g/dL (12.0-15.5) Hematocrit 30.0 % (36.0-47.0) Mean Corpuscular Volume 90 fL (79-100) Mean Corpuscular Hemoglobin 30 pg (25-35) Mean Corpuscular Hemoglobin Concent 34 g/dL (31-37) Red Cell Distribution Width 20.9 % (11.5-14.5) Platelet Count 106 x10^3/uL (140-400) Neutrophils (%) (Auto) 61 % (31-73) Lymphocytes (%) (Auto) 26 % (24-48) Monocytes (%) (Auto) 11 % (0-9) Eosinophils (%) (Auto) 2 % (0-3) Basophils (%) (Auto) 0 % (0-3) Neutrophils # (Auto) 2.8 x10^3/uL (1.8-7.7) Lymphocytes # (Auto) 1.2 x10^3/uL (1.0-4.8) Monocytes # (Auto) 0.5 x10^3/uL (0.0-1.1) Eosinophils # (Auto) 0.1 x10^3/uL (0.0-0.7) Basophils # (Auto) 0.0 x10^3/uL (0.0-0.2) Platelet Estimate Decreased (ADEQUATE) Platelet Clumps, EDTA Present Anisocytosis Mod Sodium Level 138 mmol/L (136-145) Potassium Level 3.9 mmol/L (3.5-5.1) Chloride Level 102 mmol/L (98-107) Carbon Dioxide Level 29 mmol/L (21-32) Anion Gap 7 (6-14) Blood Urea Nitrogen 12 mg/dL (7-20) Creatinine 0.7 mg/dL (0.6-1.0) Estimated GFR (Cockcroft-Gault) 103.7 BUN/Creatinine Ratio 17 (6-20) Glucose Level 90 mg/dL (70-99) Calcium Level 8.7 mg/dL (8.5-10.1) Magnesium Level 1.8 mg/dL (1.8-2.4) Total Bilirubin 0.3 mg/dL (0.2-1.0) Aspartate Amino Transf (AST/SGOT) 39 U/L (15-37) Alanine Aminotransferase (ALT/SGPT) 82 U/L (14-59) Alkaline Phosphatase 163 U/L (46-116) Troponin I High Sensitivity < 4 ng/L (4-50) 4 ng/L (4-50) MB-Opw-K-Type Natriuretic Peptide 41 pg/mL (0-124) Total Protein 6.9 g/dL (6.4-8.2) Albumin 3.7 g/dL (3.4-5.0) Albumin/Globulin Ratio 1.2 (1.0-1.7) Lipase 35 U/L (73-393) Ethyl Alcohol Level < 10 mg/dL (0-10) Urine Collection Type Unknown Urine Color (Auto) Light yellow Urine Turbidity Clear Urine pH (Auto) 7.5 (<5.0-8.0) Urine Specific [place] 1.018 (1.000-1.030) Urine Protein (Auto) Negative mg/dL (Negative) Urine Glucose (Auto)(UA) Negative mg/dL (Negative) Urine Ketones (Auto) Negative mg/dL (Negative) Urine Blood (Auto) Negative (Negative) Urine Nitrite Negative (Negative) Urine Bilirubin (Auto) Negative (Negative) Urine Urobilinogen (Auto) 2 mg/dL (Normal) Urine Leukocyte Esterase (Auto) Negative (Negative) Urine RBC 0 /HPF (0-2) Urine WBC Occ /HPF (0-4) Urine Squamous Epithelial Cells Mod /LPF Urine Bacteria Few /HPF (0-FEW) Urine Opiates Screen Pos (NEG) Urine Methadone Screen Neg (NEG) Urine Barbiturates Neg (NEG) Urine Phencyclidine Screen Neg (NEG) Urine Amphetamine/Methamphetamine Neg (NEG) Urine Benzodiazepines Screen Neg (NEG) Urine Cocaine Screen Neg (NEG) Urine Cannabinoids Screen Neg (NEG) Urine Ethyl Alcohol Neg (NEG) Bedside Urine HCG, Qualitative Hcg negative (Negative) Test 08/30/21 02:00 08/31/21 05:45 White Blood Count 3.3 x10^3/uL (4.0-11.0) Red Blood Count 3.25 x10^6/uL (3.50-5.40) Hemoglobin 10.0 g/dL (12.0-15.5) Hematocrit 29.7 % (36.0-47.0) Mean Corpuscular Volume 91 fL (79-100) Mean Corpuscular Hemoglobin 31 pg (25-35) Mean Corpuscular Hemoglobin Concent 34 g/dL (31-37) Red Cell Distribution Width 20.6 % (11.5-14.5) Platelet Count 144 x10^3/uL (140-400) Neutrophils (%) (Auto) 48 % (31-73) Lymphocytes (%) (Auto) 37 % (24-48) Monocytes (%) (Auto) 12 % (0-9) Eosinophils (%) (Auto) 3 % (0-3) Basophils (%) (Auto) 0 % (0-3) Neutrophils # (Auto) 1.6 x10^3/uL (1.8-7.7) Lymphocytes # (Auto) 1.2 x10^3/uL (1.0-4.8) Monocytes # (Auto) 0.4 x10^3/uL (0.0-1.1) Eosinophils # (Auto) 0.1 x10^3/uL (0.0-0.7) Basophils # (Auto) 0.0 x10^3/uL (0.0-0.2) Sodium Level 141 mmol/L (136-145) 138 mmol/L (136-145) Potassium Level 3.5 mmol/L (3.5-5.1) 3.9 mmol/L (3.5-5.1) Chloride Level 104 mmol/L (98-107) 103 mmol/L (98-107) Carbon Dioxide Level 26 mmol/L (21-32) 25 mmol/L (21-32) Anion Gap 11 (6-14) 10 (6-14) Blood Urea Nitrogen 6 mg/dL (7-20) 8 mg/dL (7-20) Creatinine 0.6 mg/dL (0.6-1.0) 0.7 mg/dL (0.6-1.0) Estimated GFR (Cockcroft-Gault) 123.9 103.7 Glucose Level 88 mg/dL (70-99) 105 mg/dL (70-99) Calcium Level 8.6 mg/dL (8.5-10.1) 8.9 mg/dL (8.5-10.1) Troponin I High Sensitivity < 4 ng/L (4-50) Phosphorus Level 3.9 mg/dL (2.6-4.7) Magnesium Level 2.0 mg/dL (1.8-2.4) Laboratory Tests Test 08/31/21 05:45 Sodium Level 138 mmol/L (136-145) Potassium Level 3.9 mmol/L (3.5-5.1) Chloride Level 103 mmol/L (98-107) Carbon Dioxide Level 25 mmol/L (21-32) Anion Gap 10 (6-14) Blood Urea Nitrogen 8 mg/dL (7-20) Creatinine 0.7 mg/dL (0.6-1.0) Estimated GFR (Cockcroft-Gault) 103.7 Glucose Level 105 mg/dL (70-99) Calcium Level 8.9 mg/dL (8.5-10.1) Phosphorus Level 3.9 mg/dL (2.6-4.7) Magnesium Level 2.0 mg/dL (1.8-2.4) Assessment/Plan Assessment/Plan chronic pain, nausea significant dysmotility no acute surgical recs HANNAH VALLE APRN Aug 31, 2021 09:04
--- NOTE | 2021-08-31 09:19 | SNU/HH DC ---
DISCHARGE WITH HOME HEALTH DISCHARGE INFORMATION: Discharge Date: Aug 31, 2021 Final Diagnosis: Problems Medical Problems: (1) Colitis Status: Acute (2) Intractable abdominal pain Status: Acute Condition on Discharge: Guarded CODE STATUS: Code Status: Full HOME HEALTH: Face to Face: I certify this patient is under my care and that I, or a nurse practitioner or physician's appeals assistant working with me, had a face to face encounter that meets the physician face to face encounter requirements with this patient on 08/31/21. Medical Complications: Other RN For Eval/Treatment: Yes Pt Meets Homebound Status: Extreme weakness w/ amb. POST DISCHARGE ORDERS: Activity Instructions for Disc: Activity as tolerated Weight Bearing Status after Di: As tolerated Bathing Instructions: No Tub Bath until see DIET AFTER DISCHARGE: NPO Wound/Incision Care: No wound care needed CHECKS AFTER DISCHARGE: Checks after discharge: Check your Temp as needed FOLLOW-UP: Additional Instructions: TPN FORMULA: TPN TYPE: Central Cyclic AMINO ACIDS: 82 gm DEXTROSE: 205 gm LIPIDS: 50 GM MWF gm SODIUM CHLORIDE: 75 mEq SODIUM ACETATE: mEq SODIUM PHOSPHATE: mmol POTASSIUM CHLORIDE: 50 mEq POTASSIUM ACETATE: mEq POTASSIUM PHOSPHATE: mmol MAGNESIUM: 36 mEq CALCIUM: 5 mEq INSULIN: units MULTIPLE VITAMIN: 10 ml TRACE ELEMENTS: 1 ml(s) TPN PLAN: CONT TPN FORMULA FROM HOME. LIPID MWF. R: Continue TPN TRO 12HRS WITH 1HR UP AND 1HR DOWN. Labs weekly CMP, Triglycerides to Dr. Santana [id number] [place] [address] TREATMENT/EQUIPMENT ORDERS: Adaptive Equipment Issued: None CERTIFICATION STATEMENT: Certification Statement: Certification Statement: Based on the above finding, I certify that this patient is confined to the home and needs intermittent assisted care, physical therapy and/or speech therapy, or continues to need occupational therapy.~ This patient is under my care, and I have initiated the establishment of the plan of care.~ This patient will be followed by myself or a community physician who will periodically review the plan of care. Home Meds Active Scripts Hydrocodone Bit/Acetaminophen (HYDROCODONE-APAP 7.5-325/15 SOLN ) 15 Ml Solution, 15 ML PO PRN Q6HRS PRN for PAIN, #225 ML 0 Refills Prov:KRISTEN ESPAÑA MD 03/05/21 Scopolamine (TRANSDERM-SCOP) 1 Each Patch.td72, 1 PATCH TP Q3DAYS, #4 PATCH Prov:LEXII CARRANZA DO 02/24/21 [Tpn Per Pharmacy] 1 EACH EACH No Conflict Check, 1 EACH MC PRN DAILY PRN for SEE COMMENTS for 30 Days, #60 Prov:JEFFERSON XAVIER MD 01/25/21 Ondansetron Hcl/Pf (ONDANSETRON HCL 4 MG/2 ML VIAL) 4 Mg/2 Ml Vial, 4 MG IVP PRN Q6HRS PRN for NAUSEA/VOMITING 1ST CHOICE for 30 Days, #90 EACH Prov:JEFFERSON XAVIER MD 11/30/19 Bisacodyl (BISACODYL) 10 Mg Supp.rect, 10 MG [place] PRN DAILY PRN for CONSTIPATION, 1sT CHOICE for 30 Days, #30 SUPP.RECT Prov:JEFFERSON XAVIER MD 11/30/19 Reported Medications Olanzapine (ZYPREXA) 5 Mg Tablet, 1 TAB PO QHS for psych, #30 TAB 1 Refill 08/06/21 Diphenhydramine Hcl (BENADRYL) 25 Mg Capsule, 2 CAP PO QHS for N for 30 Days, #60 CAP 0 Refills 07/14/21 Umeclidinium [place] (Incruse Ellipta) 62.5 Mcg Blst.w.dev, 62.5 MCG IH DAILY for ASTHMA 07/14/21 Fluticasone/Salmeterol (ADVAIR 250-50 DISKUS) 1 Each Disk.w.dev, 1 PUFF IH BID for ASTHMA, #3 INHALER 3 Refills 07/14/21 Valproate Sodium (VALPROIC ACID) 500 Mg/10 Ml Solution, 500 MG JT BID for TREMORS/SHAKING, MISC 11/14/20 Metoprolol Tartrate (Metoprolol Tartrate) 75 Mg Tablet, 25 MG PO BID for HEADACHES, TAB 11/14/20 Hyoscyamine Sulfate (LEVBID) 0.375 Mg Tab.er.12h, 0.375 MG JT BID for REFLUX, TAB.SR 11/14/20 Fremanezumab-Vfrm (Ajovy Autoinjector) 225 Mg/1.5 Ml Auto.injct, 225 MG SQ QMONTH for migraine, SYR 05/23/20 Tizanidine Hcl (TIZANIDINE HCL) 2 Mg Capsule, 2 MG JT Q8HRS PRN for MUSCLE SPASMS, CAP 05/23/20 Gabapentin (GABAPENTIN) 600 Mg Tablet, 300 MG JT TID for NEUROGENIC PAIN, TAB 05/21/20 Olopatadine HCl (Olopatadine HCl) 5 Ml Drops, 0.1 % OP PRN DAILY PRN for eye relief, DROP 08/20/19 Albuterol Sulfate (Proair Hfa) 8.5 Gm Hfa.aer.ad, 2 PUFF IH PRN Q4-6HRS PRN for wheezing for 21 Days, #1 INHALER 0 Refills 08/20/19 Ipratropium [place] (IPRATROPIUM BROMIDE) 30 Ml [place], 1 SPRAY NS BID for allergies, SPRAY 08/20/19 Ipratropium/Albuterol Sulfate (DUONEB 0.5-3(2.5) MG/3 ML) 3 Ml Ampul.neb, 3 ML NEB PRN QID PRN for asthma, EACH 08/20/19 Montelukast Sodium (MONTELUKAST SODIUM TABLET ) 10 Mg Tablet, 10 MG PO DAILY PRN for asthma, TAB 0 Refills 08/20/19 ALE JONES MD Aug 31, 2021 09:19
--- NOTE | 2021-08-31 09:37 | PDOC3 ---
Discharge Summary Visit Information Date of Admission: Aug 29, 2021 Final Diagnosis Problems Medical Problems: (1) Colitis Status: Acute (2) Intractable abdominal pain Status: Acute Brief Hospital Course Allergies Allergies Coded Allergies Type Severity Reaction Last Updated Verified iron Allergy Severe Anaphylaxis 08/28/21 Yes Penicillins Allergy Intermediate LIGHT RASH CHILD 08/28/21 Yes Sulfa (Sulfonamide Antibiotics) Allergy Intermediate 08/28/21 Yes I S O L A T I O N *CONTACT* Allergy Unknown 08/28/21 Yes Vital Signs Vital Signs Date Time Temp Pulse Resp B/P (MAP) Pulse Ox O2 Delivery O2 Flow Rate FiO2 08/31/21 07:33 96 Room Air 08/31/21 07:00 97.8 95 16 116/73 (87) 97.8 Lab Results Laboratory Tests Test 08/29/21 16:17 08/29/21 17:16 08/29/21 17:19 08/29/21 21:20 White Blood Count 4.6 x10^3/uL (4.0-11.0) Red Blood Count 3.32 x10^6/uL (3.50-5.40) Hemoglobin 10.1 g/dL (12.0-15.5) Hematocrit 30.0 % (36.0-47.0) Mean Corpuscular Volume 90 fL (79-100) Mean Corpuscular Hemoglobin 30 pg (25-35) Mean Corpuscular Hemoglobin Concent 34 g/dL (31-37) Red Cell Distribution Width 20.9 % (11.5-14.5) Platelet Count 106 x10^3/uL (140-400) Neutrophils (%) (Auto) 61 % (31-73) Lymphocytes (%) (Auto) 26 % (24-48) Monocytes (%) (Auto) 11 % (0-9) Eosinophils (%) (Auto) 2 % (0-3) Basophils (%) (Auto) 0 % (0-3) Neutrophils # (Auto) 2.8 x10^3/uL (1.8-7.7) Lymphocytes # (Auto) 1.2 x10^3/uL (1.0-4.8) Monocytes # (Auto) 0.5 x10^3/uL (0.0-1.1) Eosinophils # (Auto) 0.1 x10^3/uL (0.0-0.7) Basophils # (Auto) 0.0 x10^3/uL (0.0-0.2) Platelet Estimate Decreased (ADEQUATE) Platelet Clumps, EDTA Present Anisocytosis Mod Sodium Level 138 mmol/L (136-145) Potassium Level 3.9 mmol/L (3.5-5.1) Chloride Level 102 mmol/L (98-107) Carbon Dioxide Level 29 mmol/L (21-32) Anion Gap 7 (6-14) Blood Urea Nitrogen 12 mg/dL (7-20) Creatinine 0.7 mg/dL (0.6-1.0) Estimated GFR (Cockcroft-Gault) 103.7 BUN/Creatinine Ratio 17 (6-20) Glucose Level 90 mg/dL (70-99) Calcium Level 8.7 mg/dL (8.5-10.1) Magnesium Level 1.8 mg/dL (1.8-2.4) Total Bilirubin 0.3 mg/dL (0.2-1.0) Aspartate Amino Transf (AST/SGOT) 39 U/L (15-37) Alanine Aminotransferase (ALT/SGPT) 82 U/L (14-59) Alkaline Phosphatase 163 U/L (46-116) Troponin I High Sensitivity < 4 ng/L (4-50) 4 ng/L (4-50) KX-Edt-A-Type Natriuretic Peptide 41 pg/mL (0-124) Total Protein 6.9 g/dL (6.4-8.2) Albumin 3.7 g/dL (3.4-5.0) Albumin/Globulin Ratio 1.2 (1.0-1.7) Lipase 35 U/L (73-393) Ethyl Alcohol Level < 10 mg/dL (0-10) Urine Collection Type Unknown Urine Color (Auto) Light yellow Urine Turbidity Clear Urine pH (Auto) 7.5 (<5.0-8.0) Urine Specific [place] 1.018 (1.000-1.030) Urine Protein (Auto) Negative mg/dL (Negative) Urine Glucose (Auto)(UA) Negative mg/dL (Negative) Urine Ketones (Auto) Negative mg/dL (Negative) Urine Blood (Auto) Negative (Negative) Urine Nitrite Negative (Negative) Urine Bilirubin (Auto) Negative (Negative) Urine Urobilinogen (Auto) 2 mg/dL (Normal) Urine Leukocyte Esterase (Auto) Negative (Negative) Urine RBC 0 /HPF (0-2) Urine WBC Occ /HPF (0-4) Urine Squamous Epithelial Cells Mod /LPF Urine Bacteria Few /HPF (0-FEW) Urine Opiates Screen Pos (NEG) Urine Methadone Screen Neg (NEG) Urine Barbiturates Neg (NEG) Urine Phencyclidine Screen Neg (NEG) Urine Amphetamine/Methamphetamine Neg (NEG) Urine Benzodiazepines Screen Neg (NEG) Urine Cocaine Screen Neg (NEG) Urine Cannabinoids Screen Neg (NEG) Urine Ethyl Alcohol Neg (NEG) Bedside Urine HCG, Qualitative Hcg negative (Negative) Test 08/30/21 02:00 08/31/21 05:45 White Blood Count 3.3 x10^3/uL (4.0-11.0) Red Blood Count 3.25 x10^6/uL (3.50-5.40) Hemoglobin 10.0 g/dL (12.0-15.5) Hematocrit 29.7 % (36.0-47.0) Mean Corpuscular Volume 91 fL (79-100) Mean Corpuscular Hemoglobin 31 pg (25-35) Mean Corpuscular Hemoglobin Concent 34 g/dL (31-37) Red Cell Distribution Width 20.6 % (11.5-14.5) Platelet Count 144 x10^3/uL (140-400) Neutrophils (%) (Auto) 48 % (31-73) Lymphocytes (%) (Auto) 37 % (24-48) Monocytes (%) (Auto) 12 % (0-9) Eosinophils (%) (Auto) 3 % (0-3) Basophils (%) (Auto) 0 % (0-3) Neutrophils # (Auto) 1.6 x10^3/uL (1.8-7.7) Lymphocytes # (Auto) 1.2 x10^3/uL (1.0-4.8) Monocytes # (Auto) 0.4 x10^3/uL (0.0-1.1) Eosinophils # (Auto) 0.1 x10^3/uL (0.0-0.7) Basophils # (Auto) 0.0 x10^3/uL (0.0-0.2) Sodium Level 141 mmol/L (136-145) 138 mmol/L (136-145) Potassium Level 3.5 mmol/L (3.5-5.1) 3.9 mmol/L (3.5-5.1) Chloride Level 104 mmol/L (98-107) 103 mmol/L (98-107) Carbon Dioxide Level 26 mmol/L (21-32) 25 mmol/L (21-32) Anion Gap 11 (6-14) 10 (6-14) Blood Urea Nitrogen 6 mg/dL (7-20) 8 mg/dL (7-20) Creatinine 0.6 mg/dL (0.6-1.0) 0.7 mg/dL (0.6-1.0) Estimated GFR (Cockcroft-Gault) 123.9 103.7 Glucose Level 88 mg/dL (70-99) 105 mg/dL (70-99) Calcium Level 8.6 mg/dL (8.5-10.1) 8.9 mg/dL (8.5-10.1) Troponin I High Sensitivity < 4 ng/L (4-50) Phosphorus Level 3.9 mg/dL (2.6-4.7) Magnesium Level 2.0 mg/dL (1.8-2.4) Laboratory Tests Test 08/31/21 05:45 Sodium Level 138 mmol/L (136-145) Potassium Level 3.9 mmol/L (3.5-5.1) Chloride Level 103 mmol/L (98-107) Carbon Dioxide Level 25 mmol/L (21-32) Anion Gap 10 (6-14) Blood Urea Nitrogen 8 mg/dL (7-20) Creatinine 0.7 mg/dL (0.6-1.0) Estimated GFR (Cockcroft-Gault) 103.7 Glucose Level 105 mg/dL (70-99) Calcium Level 8.9 mg/dL (8.5-10.1) Phosphorus Level 3.9 mg/dL (2.6-4.7) Magnesium Level 2.0 mg/dL (1.8-2.4) Brief Hospital Course Ms. Mustafa is a 21 old female who presented with abdominal pain, nausea, vomiting, diarrhea. Consultation with GI and general surgery. No surgical recommendations, and GI recommended IV Reglan, IV Zofran, get stool studies if diarrhea recurs. Her symptoms improved on the day of discharge she noted that her stool became more firm and pain improved. She was stable to discharge home with home health. Discharge Information Condition at Discharge: Improved Disposition/Orders: D/C to Home w/ HH Scheduled Diphenhydramine Hcl (Benadryl) 25 Mg Capsule, 2 CAP PO QHS for N for 30 Days, #60 Ref 0 (Reported) Entered as Reported by: AZIZA SANCHEZ on 07/14/21 1019 Last Action: HELD on 08/29/211850 by NIANito WEBB Fluticasone/Salmeterol (Advair 250-50 Diskus) 1 Each Disk.w.dev, 1 PUFF IH BID for ASTHMA, #3 Ref 3 (Reported) Entered as Reported by: AZIZA SANCHEZ on 07/14/21 1016 Last Action: Converted on 08/29/211850 by NIANito WEBB Fremanezumab-Vfrm (Ajovy Autoinjector) 225 Mg/1.5 Ml Auto.injct, 225 MG SQ QMONTH for migraine, (Reported) Entered as Reported by: RAMSES BANDA on 05/23/20 2248 Last Action: Converted on 08/29/211850 by NIANito WEBB Gabapentin (Gabapentin) 600 Mg Tablet, 300 MG JT TID for NEUROGENIC PAIN, (Reported) Entered as Reported by: YAMILETH TALAMANTES on 05/21/20 1232 Last Action: Converted on 08/29/211850 by NIANtio WEBB Hyoscyamine Sulfate (Levbid) 0.375 Mg Tab.er.12h, 0.375 MG JT BID for REFLUX, (Reported) Entered as Reported by: BUSTER MCCOLLUM on 11/14/20 0930 Last Action: Continued on 08/29/211850 by NIANito WEBB Ipratropium [place] (Ipratropium [place]) 30 Ml [place], 1 SPRAY NS BID for allergies, (Reported) Entered as Reported by: BUSTER MCCOLLUM on 08/20/19 1219 Last Action: Converted on 08/29/211850 by NIANito WEBB Metoprolol Tartrate (Metoprolol Tartrate) 75 Mg Tablet, 25 MG PO BID for HEADACHES, (Reported) Entered as Reported by: BUSTER MCCOLLUM on 11/14/20 0930 Last Action: Converted on 08/29/211850 by NIANito WEBB Olanzapine (Zyprexa) 5 Mg Tablet, 1 TAB PO QHS for psych, #30 Ref 1 (Reported) Entered as Reported by: JAMEL PANDA on 08/06/21 1433 Last Action: Continued on 08/29/211850 by LALITHA WEBB Scopolamine (Transderm-Scop) 1 Each Patch.td72, 1 PATCH TP Q3DAYS, #4 Prescribed by: LEXII CARRANZA DO on 02/24/211858 Last Action: Continued on 08/29/211850 by LALITHA WEBB Umeclidinium [place] (Incruse Ellipta) 62.5 Mcg Blst.w.dev, 62.5 MCG IH DAILY for ASTHMA, (Reported) Entered as Reported by: AZIZA SANCHEZ on 07/14/21 1016 Last Action: Converted on 08/29/211850 by LALITHA WEBB Valproate Sodium (Valproic Acid) 500 Mg/10 Ml Solution, 500 MG JT BID for TREMORS/SHAKING, (Reported) Entered as Reported by: BUSTER MCCOLLUM on 11/14/20 0939 Last Action: Converted on 08/29/211850 by LALITHA WEBB Scheduled PRN Albuterol Sulfate (Proair Hfa) 8.5 Gm Hfa.aer.ad, 2 PUFF IH PRN Q4-6HRS PRN for wheezing for 21 Days, #1 Ref 0 (Reported) Entered as Reported by: BUSTER MCCOLLUM on 08/20/19 1219 Bisacodyl (Bisacodyl) 10 Mg Supp.rect, 10 MG ND PRN DAILY PRN for CONSTIPATION, 1sT CHOICE for 30 Days, #30 Prescribed by: JEFFERSON XAVIER MD on 11/30/19 1614 Last Action: Continued on 08/29/211850 by LALIHTA WEBB Hydrocodone Bit/Acetaminophen (Hydrocodone-Apap 7.5-325/15 Soln ) 15 Ml Solution, 15 ML PO PRN Q6HRS PRN for PAIN, #225 Ref 0 Prescribed by: KRISTEN ESPAÑA on 03/05/21 1504 Last Action: Continued on 08/29/211850 by LALITHA WEBB Ipratropium/Albuterol Sulfate (Duoneb 0.5-3(2.5) Mg/3 Ml) 3 Ml Ampul.neb, 3 ML NEB PRN QID PRN for asthma, (Reported) Entered as Reported by: BUSTER MCCOLLUM on 08/20/19 1218 Last Action: Continued on 08/29/211850 by LALITHA WEBB Montelukast Sodium (Montelukast Sodium Tablet ) 10 Mg Tablet, 10 MG PO DAILY PRN for asthma, Ref 0 (Reported) Entered as Reported by: BUSTER MCCOLLUM on 08/20/19 1218 Last Action: Continued on 08/29/211850 by LALITHA EWBB Olopatadine HCl (Olopatadine HCl) 5 Ml Drops, 0.1 % OP PRN DAILY PRN for eye relief, (Reported) Entered as Reported by: BUSTER MCCOLLUM on 08/20/19 1219 Last Action: Converted on 08/29/211850 by LALITHA WEBB Ondansetron Hcl/Pf (Ondansetron Hcl 4 Mg/2 Ml Vial) 4 Mg/2 Ml Vial, 4 MG IVP PRN Q6HRS PRN for NAUSEA/VOMITING 1ST CHOICE for 30 Days, #90 Prescribed by: JEFFERSON XAVIER MD on 11/30/19 1614 Last Action: Continued on 08/29/211850 by LALITHA WEBB Tizanidine Hcl (Tizanidine Hcl) 2 Mg Capsule, 2 MG JT Q8HRS PRN for MUSCLE SPASMS, (Reported) Entered as Reported by: RAMSES BANDA on 05/23/20 4678 Last Action: Converted on 08/29/211850 by LALITHA WEBB [Tpn Per Pharmacy] 1 EACH EACH, 1 EACH MC PRN DAILY PRN for SEE COMMENTS for 30 Days, #60 Prescribed by: JEFFERSON XAVIER MD on 01/25/21 1247 Last Action: Converted on 08/29/211850 by LALITHA WEBB Justicifation of Admission Dx: Justifications for Admission: Justification of Admission Dx: Yes Sepsis: Bacteremia ALE JONES MD Aug 31, 2021 09:37
[2021-08-31] MEDS: TPN PER PHARMACY MC PRN (09:38)
--- NOTE | 2021-08-31 09:39 | NUR ---
Pharmacy TPN Dosing Note S: SCHULTZSUNITHA is a 21 year old F Currently receiving Central Cyclic TPN started 08/30/21 B:Pertinent PMH: Home TPN Height: 5 feet, 7 inches Weight: 82.5 kg Current diet: npo LABS: Sodium: 138 Potassium: 3.9 Chloride: 103 Calcium: 8.9 Corrected Calcium: 9.14 Magnesium: 2.0 CO2: 25 SCr: 0.7 Glucose: 105 Albumin: 3.7 AST: 39 ALT: 82 TPN FORMULA: TPN TYPE: Central Cyclic AMINO ACIDS: 82 gm DEXTROSE: 165 gm LIPIDS: 20 gm SODIUM CHLORIDE: 75 mEq POTASSIUM CHLORIDE: 50 mEq MAGNESIUM: 28 mEq CALCIUM: 13 mEq MULTIPLE VITAMIN: 10 ml TRACE ELEMENTS: 1 ml(s) TPN PLAN: Continue home cyclic TPN. R: Continue TPN at 137.5 mL/hr x 12 hrs Will monitor electrolytes, glucose, and tolerance to TPN. RENETTA KIM [facility], 08/31/21 0939
--- NOTE | 2021-08-31 10:37 | NUR ---
SW following. Chart reviewed, pt from home with [facility]. Discharge orders for pt to return home. SW faxed updates and discharge orders to [facility] and [facility]. Pt is a high risk readmission.
--- NOTE | 2021-08-31 11:37 | PDOC ---
Date of Service: DATE: 08/31/21 TIME: 11:27 Subjective: Subjective: Pt seen earlier this morning before discharge. Feels better today - typical abd pain, still no diarrhea - did have bilious emesis yesterday. Uses J tube for some meds - didn't go so well yesterday. Uses G tube for venting. Mentions had feet swelling - also happened the last time she had a blood infection - swelling resolved now. Objective: Vital Signs: Vital Signs Date Time Temp Pulse Resp B/P (MAP) Pulse Ox O2 Delivery O2 Flow Rate FiO2 08/31/21 07:33 96 Room Air 08/31/21 07:00 97.8 95 16 116/73 (87) 97.8 Labs: Laboratory Tests Test 08/31/21 05:45 Sodium Level 138 mmol/L Potassium Level 3.9 mmol/L Chloride Level 103 mmol/L Carbon Dioxide Level 25 mmol/L Anion Gap 10 Blood Urea Nitrogen 8 mg/dL Creatinine 0.7 mg/dL Estimated GFR (Cockcroft-Gault) 103.7 Glucose Level 105 mg/dL Calcium Level 8.9 mg/dL Phosphorus Level 3.9 mg/dL Magnesium Level 2.0 mg/dL PE: GEN: NAD LUNGS: CTAB HEART: RRR ABD: J and G tubes in place, non-distended NEURO/PSYCH: A & O 3 A/P: Chronic abd pain and n/v - h/o gastroparesis, complicated surgical history Abnormal CT report mentions "colitis" (though really unrevealing) - no diarrhea H/o elevated LFTs - stable, thought possibly TPN-related -- Unfortunately these are chronic/recurrent issues - okay for discharge per GI. Justicifation of Admission Dx: Justifications for Admission: Justification of Admission Dx: Yes Sepsis: Bacteremia LIA RO Aug 31, 2021 11:37
[2021-08-31] MEDS ORDERED: HEPARIN for SUB-Q USE 5,000 UNIT/ML VIAL. SQ SCH (14:00)
[2021-08-31] MEDS ORDERED: TOTAL PARENTERAL NUTRITION IV SCH (22:00)
[2021-08-31] MEDS ORDERED: DEXTROSE 70% IV SCH (22:00)
[2021-08-31] MEDS ORDERED: [UNRECOGNIZED DRUG - OTHER] IV SCH (22:00)
[2021-08-31] MEDS ORDERED: AMINO ACID IV SCH (22:00)
[2021-09-01] MEDS ORDERED: SCOPOLAMINE 1.5MG PATCH. TD SCH (09:00)
[2021-09-28] MEDS ORDERED: FREMANEZUMAB VFRM 225 MG SQ SCH (09:00)
== END 2021-08-31 11:00 | disposition home health service (06) | DRG 392 ==
LOC: ER 15:10 → 4 NORTH 18:47
PROVIDERS: ADMIT Internal Medicine; ATTEND Internal Medicine
DX: K52.9 Noninfective gastroenteritis and colitis, unspecified (principal); G43.909 Migraine, unspecified, not intractable, without status migrainosus; G89.29 Other chronic pain; I10 Essential (primary) hypertension; J45.909 Unspecified asthma, uncomplicated; K21.9 Gastro-esophageal reflux disease without esophagitis; K59.00 Constipation, unspecified; Z79.51 Long term (current) use of inhaled steroids; Z79.899 Other long term (current) drug therapy; Z83.3 Family history of diabetes mellitus; Z90.49 Acquired absence of other specified parts of digestive tract; Z93.4 Other artificial openings of gastrointestinal tract status; Z86.718 Personal history of other venous thrombosis and embolism; Z86.14 Personal history of Methicillin resistant Staphylococcus aureus infection; Z88.0 Allergy status to penicillin; Z88.2 Allergy status to sulfonamides; Z88.8 Allergy status to other drugs, medicaments and biological substances; Z91.041 Radiographic dye allergy status
CPT/HCPCS: 36415; 71045; 74176; 80048; 80053; 80307; 81001; 81025; 83690; 83735; 83880; 84100; 84484; 85025; 93005; 94640; 94760; 96374; 96375; 96376; G0480; J0610; J1170; J1200; J1956; J2405; J2765; J3475; J3480; J3490; J7030; 99285-25; G0378; J7626

== ENCOUNTER 2021-09-15 07:56 | Outpatient (CLI) | payer OTHER, MEDICARE, MEDICAID ==
[2021-09-15] VITALS (7 sets, daily range): BP systolic 119–141; BP diastolic 56–76
[~2021-09-15] VITALS: Ht 170.2 cm; Wt 79.4 kg
[2021-09-15] MEDS ORDERED: PROC10TA57 PO (09:23)
[2021-09-15] MEDS ORDERED: UBRO100T PO (09:23)
[2021-09-15] MEDS ORDERED: ENOX80DI SQ (09:23)
[2021-09-15] MEDS ORDERED: MIDO5TAB4 PO (09:23)
[2021-09-15] MEDS ORDERED: OFLO5DRO7 EACH EAR (09:23)
[2021-09-15] MEDS ORDERED: HYDR15SO6 PO (09:23)
[2021-09-15] MEDS ORDERED: VENL75TA PO (09:23)
[2021-09-15] MEDS ORDERED: FLUT9.9S NS (09:23)
[2021-09-15] MEDS ORDERED: NORE0.3550 PO (09:23)
[2021-09-15] MEDS ORDERED: ELET40TA PO (09:23)
[2021-09-15] MEDS ORDERED: NALO4SPR NS (09:23)
[2021-09-15] MEDS ORDERED: BUSP15TA PO (09:23)
[2021-09-15] MEDS ORDERED: MONT10TA49 PO (09:23)
[2021-09-15] MEDS ORDERED: PROAIR RESPICL90 MCG IH (09:23)
[2021-09-15] MEDS ORDERED: FAMO20VI3 IV (09:23)
[2021-09-15] MEDS ORDERED: IODIXANOL 320 MG/ML 50ML VIAL. ONE (10:25)
[2021-09-15] MEDS ORDERED: MIDAZOLAM HCL/PF 2 MG/2 ML VIAL. ONE (10:26)
[2021-09-15] MEDS ORDERED: fentaNYL PF VIAL 100 MCG/2 ML VIAL ONE (10:26)
[2021-09-15] MEDS ORDERED: fentaNYL PF VIAL 100 MCG/2 ML VIAL IV ONE (11:00)
[2021-09-15] MEDS ORDERED: MIDAZOLAM HCL/PF 2 MG/2 ML VIAL. IV ONE (11:00)
[2021-09-15] MEDS ORDERED: IODIXANOL 320 MG/ML 50ML VIAL. IV ONE (11:00)
--- NOTE | 2021-09-15 12:00 | NUR ---
Discharge Note: SUNITHA SCHULTZ Discharge instructions and discharge home medications reviewed with Patient and a copy given. All questions have been answered and understanding verbalized. R chest powerline remains intact The following instructions and handouts were given: sedation, gastric tube change new g tube and J tube in place with dry and intact dressings Patient discharged to Home or Self Care with Family Member via Wheelchair RAOUL ZHANG Addendum: 09/15/21 at 1203 by DARIEL ALVAREZ RN Amended: Links added.
--- NOTE | 2021-09-15 14:17 | RAD ---
Fluoroscopically guided replacement of gastrostomy tube and jejunostomy tube 09/15/2021 INDICATION: Routine exchange Consent: The procedure was explained in its entirety to the patient or the patients designated repres entative by a member of the treatment team, including a discussion of the risks, benefits and commonl y accepted alternatives to the procedure, as well as the expected consequences of no therapy whatsoev er. Discussion of the risks included, but was not limited to, those that are most frequent and thos e that are rare but possibly severe or life-threatening, as well as the possibility of unforeseen com plications. The anterior abdomen was prepped and draped. Fluoroscopic evaluation, including the administration of a small amount of contrast, demonstrates expected position of the gastrostomy tube and jejunostomy t ube. Both tubes were placed with 20 [place] gastrostomy type tube is over guidewire, and the position confirmed with administration of contrast. Sterile dressings were applied. No immediate complications were identified. Total fluoroscopy time: 1.4 minutes Dose area product 6 Naik centimeter squared Sedation: The procedure was performed under conscious sedation including continuous cardiopulmonary m onitoring via a dedicated sedation nurse. [id number] sedation time: 23 minutes Electronically signed by: Flo Cartwright MD (09/15/2021 2:14 PM) [id number]
[2021-09-28] MEDS ORDERED: SUCR1ORA14 JT (09:43)
[2021-09-28] MEDS ORDERED: PANT40TA77 PO (09:43)
--- NOTE | 2021-10-13 11:21 | PDOC1 ---
History and Physical Date of Procedure Date of Admission 09.15.21 Procedure Procedure replacement of J and G tubes Indication Indication Routine History of Present Illness Reason for Visit same Past Medical History Past Medical History Gastroparesis. chronic g and j tubes. needs routine exchange Cardiovascular: No pertinent hx Pulmonary: No pertinent hx, Bronchitis Heme/Onc: No pertinent hx Hepatobiliary: No pertinent hx Psych: No pertinent hx Rheumatologic: No pertinent hx Infectious disease: No pertinent hx ENT: No pertinent hx Renal/: No pertinent hx Endocrine: No pertinent hx Dermatology: No pertinent hx Past Surgical History Past Surgical History G and J tubes. Bowel resection/anastamosis. Current Medications Current Medications Current Medications Iodixanol (Visipaque 320) 50 ml STK-MED ONCE .ROUTE ; Start 09/15/21 at 10:25; Stop 09/15/21 at 10:25; Status DC Midazolam HCl (Versed) 2 mg STK-MED ONCE .ROUTE ; Start 09/15/21 at 10:26; Stop 09/15/21 at 10:26; Status DC Fentanyl Citrate (Fentanyl 2ml Vial) 100 mcg STK-MED ONCE .ROUTE ; Start 09/15/21 at 10:26; Stop 09/15/21 at 10:26; Status DC Midazolam HCl (Versed) 2 mg 1X ONCE IV Last administered on 09/15/21at 10:31; Start 09/15/21 at 11:00; Stop 09/15/21 at 11:01; Status DC Fentanyl Citrate (Fentanyl 2ml Vial) 100 mcg 1X ONCE IV Last administered on 09/15/21at 10:31; Start 09/15/21 at 11:00; Stop 09/15/21 at 11:01; Status DC Iodixanol (Visipaque 320) 50 ml 1X ONCE IV Last administered on 09/15/21at 10:52; Start 09/15/21 at 11:00; Stop 09/15/21 at 11:01; Status DC Active Scripts Active Pantoprazole Sodium (Pantoprazole Sodium) 40 Mg Tablet.dr 40 Mg PO DAILYAC 30 Days Sucralfate 1 Gm/10 Ml Oral.susp 1 Gm JT BID 14 Days Ondansetron Hcl 4 Mg/2 Ml Vial (Ondansetron Hcl/Pf) 4 Mg/2 Ml Vial 4 Mg IVP PRN Q6HRS PRN 30 Days Bisacodyl 10 Mg Supp.rect 10 Mg WV PRN DAILY PRN 30 Days Reported Ofloxacin 5 Ml Drops 5 Drop EACH EAR BID Proair Respiclick (Albuterol Sulfate) 90 Mcg Aer.pow.ba 1 Puff IH Q4HRS Narcan (Naloxone HCl) 4 Mg [place] 4 Mg NS PRN PRN Rohini (Norethindrone) 0.35 Mg Tablet 1 Tab PO DAILY 28 Days Venlafaxine Hcl 75 Mg Tablet 225 Mg PO DAILY Ubrelvy (Ubrogepant) 100 Mg Tablet 100 Mg PO PRN BID PRN Flonase Allergy Relief (Fluticasone Propionate) 9.9 Ml [place].susp 2 Sprays NS DAILY Compazine (Prochlorperazine Maleate) 10 Mg Tablet 1 Tab PO PRN Q8HRS PRN 30 Days Relpax (Eletriptan Hbr) 40 Mg Tablet 40 Mg PO PRN BID PRN Lovenox (Enoxaparin Sodium) 80 Mg/0.8 Ml Disp.syrin 80 Mg SQ DAILY Famotidine 20 Mg/2 Ml Vial (Famotidine/Pf) 20 Mg/2 Ml Vial 40 Mg IV BID Hydrocodone-Apap 7.5-325/15 Soln (Hydrocodone Bit/Acetaminophen) 15 Ml Solution 30 Ml PO PRN Q6HRS PRN Montelukast Sodium Tablet (Montelukast Sodium) 10 Mg Tablet 10 Mg PO DAILY Buspirone Hcl 15 Mg Tablet 1 Tab PO TID Midodrine Hcl 5 Mg Tablet 5 Mg PO TID Zyprexa (Olanzapine) 5 Mg Tablet 1 Tab PO QHS Benadryl (Diphenhydramine Hcl) 25 Mg Capsule 2 Cap PO QHS 30 Days Incruse Ellipta (Umeclidinium [place]) 62.5 Mcg Blst.w.dev 62.5 Mcg IH DAILY Advair 250-50 Diskus (Fluticasone/Salmeterol) 1 Each Disk.w.dev 1 Puff IH BID Valproic Acid (Valproate Sodium) 500 Mg/10 Ml Solution 500 Mg JT BID Levbid (Hyoscyamine Sulfate) 0.375 Mg Tab.er.12h 0.375 Mg JT BID Ajovy Autoinjector (Fremanezumab-Vfrm) 225 Mg/1.5 Ml Auto.injct 225 Mg SQ QMONTH Tizanidine Hcl 2 Mg Capsule 2 Mg JT PRN BID PRN Duoneb 0.5-3(2.5) Mg/3 Ml (Albuterol/Ipratropium) 3 Ml Ampul.neb 3 Ml NEB QID Allergies Allergies: Coded Allergies: iron (Verified Allergy, Severe, Anaphylaxis, 10/12/21) Penicillins (Verified Allergy, Intermediate, LIGHT RASH CHILD, 10/12/21) TOLERATES ZOSYN Sulfa (Sulfonamide Antibiotics) (Verified Allergy, Intermediate, 10/12/21) I S O L A T I O N *CONTACT* (Verified Allergy, Unknown, 10/12/21) mrsa Physical Exam Lungs: Clear to auscultation Heart: Regular rate Neuro: Normal speech Psych/Mental Status: Mental status NL Assessment Assessment G J TUBE, CHRONIC, NEEDS ROUTINE EXCHANGE Plan Plan EXCHANGE ONEL LIZ MD October 13, 2021 11:21
== END 2021-09-15 12:12 | disposition home or self-care (01) ==
LOC: INTRAD 07:56
PROVIDERS: ATTEND Surgery
DX: K31.84 Gastroparesis (principal); I10 Essential (primary) hypertension; J45.909 Unspecified asthma, uncomplicated; G47.30 Sleep apnea, unspecified; K21.9 Gastro-esophageal reflux disease without esophagitis; F41.9 Anxiety disorder, unspecified; F32.9 Major depressive disorder, single episode, unspecified; Z87.440 Personal history of urinary (tract) infections; Z90.49 Acquired absence of other specified parts of digestive tract; Z98.890 Other specified postprocedural states; Z79.899 Other long term (current) drug therapy; Z88.0 Allergy status to penicillin; Z88.2 Allergy status to sulfonamides
CPT/HCPCS: 49450; 49451; 49452; 99152; 99153; B4087; C1769; J2250; J3010; Q9967

== ENCOUNTER → 2021-09-22 | Outpatient (CLI) | payer OTHER, MEDICARE, MEDICAID ==
[2021-09-21 09:31] VITALS: BP 100/63
[~2021-09-22] MED LIST changes: +ALTEPLASE 1MG SYRINGE. INT CAT ONE; +BUSP15TA PO; +ELET40TA PO; +FAMO20VI3 IV; +FLUT9.9S NS; +MIDO5TAB4 PO; +NALO4SPR NS; +NORE0.3550 PO; +OFLO5DRO7 EACH EAR; +PROAIR RESPICL90 MCG IH; +PROC10TA57 PO; +UBRO100T PO; +VENL75TA PO
--- NOTE | 2021-09-22 14:08 | NUR ---
pt here for blood culture from central line, assisted lab but unable to obtain blood return,, cath ashley orders prn in place and used to de clot central line. per protocol
== END ==
LOC: LAB 13:37
PROVIDERS: ATTEND Nurse Practitioner Family
DX: R50.9 Fever, unspecified (principal)
CPT/HCPCS: 36415; 87040; 96374; J2997

== ENCOUNTER 2021-09-24 13:42 | Inpatient (IN) | payer OTHER, MEDICARE, MEDICAID ==
[~2021-09-24] VITALS: Ht 170.2 cm; Wt 81.6 kg
[~2021-09-24 13:42] MED LIST changes: -ALTEPLASE 1MG SYRINGE. INT CAT ONE
[2021-09-24] MEDS ORDERED: METOCLOPRAMIDE HCL 10 MG/2 ML VIAL. IVP ONE (14:15)
[2021-09-24] MEDS ORDERED: IV NORMAL SALINE 1000ML BAG 1,000 ML IV ONE (14:15)
[2021-09-24] MEDS ORDERED: diphenhydrAMINE 50 MG/ML VIAL IVP ONE (14:15)
[2021-09-24] MEDS ORDERED: HYDROmorphone 2 MG/ML INJ. IVP ONE (14:15)
--- NOTE | 2021-09-24 14:28 | PHYS DOC ---
Past Medical History Past Medical History: Asthma, DVT, GERD, Hypertension, Migraines, MRSA, Other Additional Past Medical Histor: GASTROPARSIS, INTESTIAL DISMOTILITY, CHRONIC ABD PAIN Past Surgical History: Appendectomy, Cholecystectomy, Tonsillectomy, Other Additional Past Surgical Histo: G TUBES, J TUBES, GJ TUBES Smoking Status: Never Smoker Alcohol Use: None Drug Use: None General Adult EDM: Chief Complaint: GI PROBLEM HPI: HPI: Patient is a 21-year-old female presents to the emergency department for admission to the hospital. Patient reports she was called at home by her physician Dr. Mohr and advised she had positive blood cultures. Patient has an extensive history of abdominal surgeries, chronic abdominal pains, hypertension, acid reflux. Patient has a J-tube in the G-tube. Patient reports a constant 7 out of 10 abdominal discomfort. Denies other physical complaints or physical concerns. Review of Systems: Review of Systems: 14 body systems of review of systems have been reviewed. See HPI for pertinent positives and negative responses, otherwise all other systems are negative, nonpertinent or noncontributory. Constitutional: Negative except as outlined in HPI above. Skin: Negative except as outlined in HPI above. Eyes: Negative except as outlined in HPI above. HENT: Negative except as outlined in HPI above. Respiratory: Negative except as outlined in HPI above. Cardiovascular: Negative except as outlined in HPI above. GI: Negative except as outlined in HPI above. : Negative except as outlined in HPI above. Musculoskeletal: Negative except as outlined in HPI above. Integument: Negative except as outlined in HPI above. Neurologic: Negative except as outlined in HPI above. Endocrine: Negative except as outlined in HPI above. Lymphatic: Negative except as outlined in HPI above. Psychiatric: Negative except as outlined in HPI above. Heart Score: C/O Chest Pain: No Risk Factors: Risk Factors: DM, Current or recent (<one month) smoker, HTN, HLP, family history of CAD, obesity. Risk Scores: Score 0 - 3: 2.5% MACE over next 6 weeks - Discharge Home Score 4 - 6: 20.3% MACE over next 6 weeks - Admit for Clinical Observation Score 7 - 10: 72.7% MACE over next 6 weeks - Early Invasive Strategies Current Medications: Current Medications Medications (Trade) Dose Ordered Sig/Kel Start Time Stop Time Status Last Admin Dose Admin Diphenhydramine HCl (Benadryl) 25 mg 1X ONCE 09/24/21 14:15 09/24/21 14:16 UNV Hydromorphone HCl (Dilaudid) 1 mg 1X ONCE 09/24/21 14:15 09/24/21 14:16 Metoclopramide HCl (Reglan Vial) 10 mg 1X ONCE 09/24/21 14:15 09/24/21 14:16 Sodium Chloride 1,000 ml @ 75 mls/hr 1X ONCE 09/24/21 14:15 09/25/21 03:34 UNV Vancomycin HCl (Vanco Per Pharmacy) 1 each PRN DAILY PRN 09/24/21 14:15 UNV Allergies: Allergies: Allergies Coded Allergies Type Severity Reaction Last Updated Verified iron Allergy Severe Anaphylaxis 09/14/21 Yes Penicillins Allergy Intermediate LIGHT RASH CHILD 09/14/21 Yes Sulfa (Sulfonamide Antibiotics) Allergy Intermediate 09/14/21 Yes I S O L A T I O N *CONTACT* Allergy Unknown 09/14/21 Yes Physical Exam: PE: Constitutional: Well developed, well nourished, no acute distress, non-toxic appearance. 21-year-old female in no apparent distress. HENT: Normocephalic, atraumatic. Eyes: Conjunctiva normal, no discharge. Neck: Normal range of motion, no stridor. Cardiovascular: No cyanosis appreciated, distal cap refill less than 2 seconds. Lungs & Thorax: Patient is in no respiratory distress, no audible adventitious lung sounds appreciated. Abdomen: Bowel sounds normal all 4 quadrants, soft, diffuse abdominal tenderness , no masses, no pulsatile masses, no skin discoloration appreciated, there is a G-tube and a J-tube without noted infectious process or purulent drainage at stoma. Skin: Warm, dry, no erythema, no rash. Back: No tenderness, no deformities. Extremities: No tenderness, no cyanosis, no clubbing, ROM intact, no edema. Neurologic: Alert and oriented X 3, normal motor function, normal sensory function, no focal deficits noted. Psychologic: Affect normal, judgement normal, mood normal. Current Patient Data: Vital Signs: Vital Signs Date Time Temp Pulse Resp B/P (MAP) Pulse Ox O2 Delivery O2 Flow Rate FiO2 09/24/21 13:45 98.2 113 20 117/64 (81) 100 Room Air 98.2 EKG: EKG: [] Radiology/Procedures: Radiology/Procedures: REASON: Right anterior chest central line gram-positive cocci culture positive PROCEDURE: PORTABLE CHEST 1V Study: XR CHEST 1V Indication: Central line gram-positive cocci culture positive. Comparison: 08/29/2021 Findings: Central venous catheter tip terminates within the SVC. Unchanged cardiomediastinal silhouette and kym. Mid left lung calcified granuloma. No confluent infiltrate, pleural effusion or pneumothorax. Suspected mild basilar atelectasis. Impression: 1. Well-positioned central line. 2. No acute radiographic abnormality of the chest. No evidence for pneumonia. Electronically signed by: CODY LEUNG MD (09/24/2021 2:51 PM) [facility] Course & Med Decision Making: Course & Med Decision Making Pertinent Labs and Imaging studies reviewed. (See chart for details) 21-year-old female, vital signs reviewed, presents to the emergency department as directed by her surgeon Dr. Mohr who advised the patient she has positive blood cultures and to be admitted for antibiotic therapy. Patient's physical examination reveals diffuse abdominal pain, patient has chronic abdominal pains. Will draw blood cultures x2, CBC, CMP, lactic acid, urinalysis assay, urine test, one-view portable chest x-ray, will start on vancomycin per pharmacy dosing, patient does have penicillin and sulfa allergy, will defer Zosyn or other antibiotics at this time. Called and discussed patient case and ED work-up with inpatient management physician Dr. Bynum who agrees patient case warrants admission to the hospital, will consult Dr. Mohr and infectious disease specialty. We will secure patient bed assignment on medical surgical unit. We will treat patient's presenting pain of 7 out of 10 with 1 mg IV Dilaudid, 10 mg IV Reglan, 25 mg IV Benadryl, will start normal saline at 100 cc/h. Discussed with patient admission under inpatient management physician Dr. Bynum, patient is amendable to ED admission planning. Dragon Disclaimer: Pooja Disclaimer: This electronic medical record was generated, in whole or in part, using a voice recognition dictation system. Departure Departure Impression: Primary Impression: Positive blood culture Additional Impression: Abdominal pain Qualified Codes: R10.84 - Generalized abdominal pain Disposition: ADMITTED INPATIENT Admitting Physician: BRICE (Admit to Dr. Bynum, consult Dr. Mohr, consult infectious disease. MedSur unit.) Condition: STABLE Referrals: ARASH YUN NP (PCP) GEORGES CHAVES APRN September 24, 2021 14:27
--- NOTE | 2021-09-24 14:54 | RAD ---
Study: XR CHEST 1V Indication: Central line gram-positive cocci culture positive. Comparison: 08/29/2021 Findings: Central venous catheter tip terminates within the SVC. Unchanged cardiomediastinal silhouette and kym. Mid left lung calcified granuloma. No confluent infi ltrate, pleural effusion or pneumothorax. Suspected mild basilar atelectasis. Impression: 1. Well-positioned central line. 2. No acute radiographic abnormality of the chest. No evidence for pneumonia. Electronically signed by: CODY LEUNG MD (09/24/2021 2:51 PM) [facility]
[2021-09-24] MEDS ORDERED: VANCOMYCIN 1.5 GM in IV NORMAL SALINE 500ML BAG 500 ML IV ONE (15:00)
[2021-09-24 15:14] LABS: BASO % 1 % (0-3); EOS # 0.2 x10^3/uL (0.0-0.7); EOS % 4 % (0-3); HEMOGLOBIN 10.9 g/dL (12.0-15.5); LYMPH # 1.3 x10^3/uL (1.0-4.8); LYMPH % 25 % (24-48); MEAN CORPUSCULAR HEMOGLOBIN 32 pg (25-35); MEAN CORPUSCULAR HGB CONC 34 g/dL (31-37); MEAN CORPUSCULAR VOLUME 95 fL (79-100); MONO # 0.4 x10^3/uL (0.0-1.1); MONO % 8 % (0-9); NEUT # 3.1 x10^3/uL (1.8-7.7); NEUT % 62 % (31-73); PLATELET COUNT 145 x10^3/uL (140-400); RED BLOOD COUNT 3.38 x10^6/uL (3.50-5.40); WHITE BLOOD COUNT 5.1 x10^3/uL (4.0-11.0)
[2021-09-24] MEDS: VANCOMYCIN PER PHARMACY MC PRN (15:41)
--- NOTE | 2021-09-24 15:44 | NUR ---
Pharmacy Vancomycin Dosing Note S:Consulted to monitor and dose vancomycin started 09/24/21. O:SUNITHA SCHULTZ is a 21 year old F with Bacteremia . Height: 5 feet, 7 inches Weight: 67.0 kg [place] Body Weight: 61.60 Adjusted Body Weight: 63.76 Dosing Weight: Actual Other Antibiotics: ZOSYN LABS: Last BUN: Last Creatinine: Creatinine Clearance: 125 mL/min Last WBC: 5.1 Last Procalcitonin: Tmax (past 24 hours): Microbiology: 09/24 ADMITTED FOR +BC FROM DR MILLER/S OFFICE. I/O: Drug Levels: Last level: on at Last dose given 09/24/21 at 1511 Vancomycin Dosing: Loading Dose: 1500 mg x1 Dosing Weight: Actual Target Trough: 15-20 A: Based on: WEIGHT AND RENAL FUNCTION, VANCOMYCIN 1.5 GM IV BOLUS GIVEN, P: 1. Begin Vancomycin 1000 mg IV q8h 2. Follow up Trough level on 09/25/21 at 1430 3. Pharmacy will continue to monitor, follow and adjust therapy as needed. CYDNEY ELLIS [facility], 09/24/21 [id number]
[2021-09-24 15:48] LABS: CALCIUM 8.5 mg/dL (8.5-10.1); CREATININE 0.7 mg/dL (0.6-1.0); GFR 103.7; POTASSIUM 4.5 mmol/L (3.5-5.1)
[2021-09-24 15:55] LABS: ALBUMIN 3.6 g/dL (3.4-5.0); ALBUMIN/GLOBULIN RATIO 1.1 (1.0-1.7); TOTAL BILIRUBIN 0.2 mg/dL (0.2-1.0)
[2021-09-24] MEDS ORDERED: UBROGEPANT 100 MG PO PRN (16:15)
[2021-09-24] MEDS ORDERED: NON FORMULARY ITEM (Naloxone HCl (Narcan) 4 MG) NS PRN (16:15)
[2021-09-24] MEDS ORDERED: PIP/TAZO PER PHARMACY MC PRN (16:15)
[2021-09-24] MEDS ORDERED: BISACODYL 10 MG SUPP.RECT. PR PRN (16:15)
[2021-09-24] MEDS ORDERED: HYDROcodon/APAP 7.5/325MG ORAL 15 ML SOLUTION PO PRN (16:15)
[2021-09-24] MEDS: MIDODRINE 5 MG TABLET PO SCH (16:30)
[2021-09-24] MEDS ORDERED: ALBUTEROL SULFATE 2.5 MG/3 ML NEBU. NEB PRN (16:30)
[2021-09-24] MEDS ORDERED: PROCHLORPERAZINE 5 MG TABLET. PO PRN (16:30)
[2021-09-24] MEDS ORDERED: tiZANidine 4 MG TABLET. PO PRN (16:30)
[2021-09-24 17:20] VITALS: BP 119/70
[2021-09-24] MEDS: PROCHLORPERAZINE 10 MG/2 ML VIAL. IV PRN (17:45)
[2021-09-24] MEDS: PIPERACILLIN/TAZOBACTAM 4.5 GM in IV DEXTROSE 5% 100ML 100 ML IV SCH ×2 (18:34→23:31)
[2021-09-24] MEDS: HYDROmorphone 2 MG/ML INJ. IVP PRN ×2 (18:35→22:49)
[2021-09-24 19:15] VITALS: BP 105/52
--- NOTE | 2021-09-24 19:51 | HP ---
DATE OF SERVICE: 09/24/2021 ADMIT DATE: 09/24/2021 CHIEF COMPLAINT: Positive blood cultures. HISTORY OF PRESENT ILLNESS: The patient is a pleasant 21-year-old female whom we admit very frequently. She has multiple-multiple medical issues. She has severe gastroparesis. She has a J-tube and a G-tube plus she has a port. She is dependent on narcotics. She has 26 medications at home. She is on home TPN. At this time, she went to her surgeon to have things checked. Apparently, they enrike some blood cultures. I called her today and explained that the blood cultures were positive. I discussed the case with ER physician. We are going to admit the patient, give her IV antibiotics and consult Infectious Disease and General Surgery. PAST MEDICAL HISTORY: Multiple medical issues including severe gastroparesis, J-tube, G-tube, sepsis, respiratory failure, asthma, DVT, GERD, hypertension, migraines, MRSA, chronic pain, narcotic dependence, cholecystectomy, appendectomy, tonsillectomy, combination of G-J tube as well as a J-tube and a G-tube, polypharmacy, depression, chronic anticoagulation, tremors, anxiety, headaches, ear infections, constipation, chronic nausea. ALLERGIES: PENICILLIN, SULFA, AND IRON. FAMILY HISTORY: Diabetes. SOCIAL HISTORY: She does not drink, smoke or take drugs. She lives at home with her mom. MEDICATIONS: Reviewed. Please refer to the MRAD. REVIEW OF SYSTEMS: GENERAL: No history of weight change, weakness or fevers. SKIN: No bruising, hair changes or rashes. EYES: No blurred, double or loss of vision. NOSE AND THROAT: No history of nosebleeds, hoarseness or sore throat. HEART: No history of palpitations, chest pain or shortness of breath on exertion. LUNGS: Denies cough, hemoptysis, wheezing or shortness of breath. GASTROINTESTINAL: Denies changes in appetite, nausea, vomiting, diarrhea or constipation. GENITOURINARY: No history of frequency, urgency, hesitancy or nocturia. NEUROLOGIC: Denies history of numbness, tingling, tremor or weakness. PSYCHIATRIC: No history of panic, anxiety or depression. ENDOCRINE: No history of heat or cold intolerance, polyuria or polydipsia. EXTREMITIES: Denies muscle weakness, joint pain, pain on walking or stiffness. PHYSICAL EXAMINATION: VITALS: Within normal limits and are stable. GENERAL: No apparent distress. Alert and oriented. HEENT: Normal cephalic atraumatic, external auditory canals are patent EYES: Extraocular muscles are intact, pupils are equally round and reactive to light and accommodation MUSCULOSKELETAL: Well developed, well nourished, good range of motion ENDOCRINE: No thyromegaly was palpated LYMPHATICS: No cervical chain or axillary nodes were noted HEMATOPOIETIC: No bruising NECK: Supple, no JVD, no thyromegaly was noted. LUNGS: Clear to auscultation in all lung crain without rhonchi or wheezing. HEART: RRR, S1, S2 present. Peripheral pulses intact, no obvious murmurs were noted. ABDOMEN: She has a PEG tube and a G-tube. EXTREMITIES: Without any cyanosis, clubbing, or edema. Pedal pulses intact, Homans sign is negative. NEUROLOGIC: Normal speech, normal tone. A & O x 3, moves all extremities, no obvious focal deficits. PSYCHIATRIC: Normal affect, normal mood. Stable. SKIN: No ulcerations or rashes, good skin turgor, no jaundice. VASCULAR: Good capillary refill, neurovascular bundle appears to be intact. LABORATORY DATA: White count 5, hemoglobin 10.9, platelets count is 145. Other labs are pending. ASSESSMENT AND PLAN: Positive blood cultures drawn as an outpatient. We will go ahead and start empiric IV antibiotics. Consult Infectious Disease. Consult her general surgeon. Home meds. Deep venous thrombosis prophylaxis. Full code. I asked the pharmacy to start standard TPN. P.r.n. hydrocodone, p.r.n. Compazine, p.r.n. Zofran, p.r.n. Benadryl and p.r.n. Ativan. Trend labs. RAMON/SOTERO/JENN DR: Abdon TID: [id number]
[2021-09-24] MEDS: FAMOTIDINE 20 MG/2 ML VIAL IV SCH (20:28)
[2021-09-24] MEDS: diphenhydrAMINE 50 MG/ML VIAL IVP PRN ×2 (20:31→20:36)
[2021-09-24] MEDS: VALPROIC ACID (AS SODIUM SALT) 250 MG/5 ML SOLUTION. JT SCH (20:39)
[2021-09-24] MEDS: diphenhydrAMINE HCL 25 MG CAPSULE PO SCH (20:39)
[2021-09-24] MEDS: busPIRone 5 MG TABLET. PO SCH (20:41)
[2021-09-24] MEDS: HYOSCYAMINE ER 0.375 MG TAB.ER.12H PO SCH (20:41)
[2021-09-24] MEDS: MONTELUKAST SODIUM 10 MG TABLET. PO SCH (20:41)
[2021-09-24] MEDS ORDERED: OLANZapine 5 MG TABLET PO SCH (21:00)
[2021-09-24] MEDS ORDERED: OFLOXACIN EACH EAR SCH (21:00)
[2021-09-24] MEDS: VANCOMYCIN 1 GM in IV NORMAL SALINE 250ML 250 ML IV SCH (22:50)
[2021-09-24 23:05] VITALS: BP 123/77
[2021-09-25 03:04] VITALS: BP 96/48
[2021-09-25] MEDS: HYDROmorphone 2 MG/ML INJ. IVP PRN ×6 (05:25→23:12)
[2021-09-25] MEDS: PIPERACILLIN/TAZOBACTAM 4.5 GM in IV DEXTROSE 5% 100ML 100 ML IV SCH ×2 (05:27→11:55)
[2021-09-25] MEDS: diphenhydrAMINE 50 MG/ML VIAL IVP PRN ×3 (05:29→19:35)
[2021-09-25] MEDS: VANCOMYCIN 1 GM in IV NORMAL SALINE 250ML 250 ML IV SCH (06:34)
[2021-09-25 07:16] LABS: BASO % 0 % (0-3); EOS # 0.1 x10^3/uL (0.0-0.7); EOS % 4 % (0-3); HEMATOCRIT 30.5 % (36.0-47.0); HEMOGLOBIN 10.3 g/dL (12.0-15.5); LYMPH # 1.1 x10^3/uL (1.0-4.8); LYMPH % 31 % (24-48); MEAN CORPUSCULAR HEMOGLOBIN 32 pg (25-35); MEAN CORPUSCULAR HGB CONC 34 g/dL (31-37); MEAN CORPUSCULAR VOLUME 96 fL (79-100); MONO # 0.3 x10^3/uL (0.0-1.1); MONO % 9 % (0-9); NEUT % 56 % (31-73); PLATELET COUNT 152 x10^3/uL (140-400); RED BLOOD COUNT 3.18 x10^6/uL (3.50-5.40); RED CELL DISTRIBUTION WIDTH 15.3 % (11.5-14.5); WHITE BLOOD COUNT 3.7 x10^3/uL (4.0-11.0)
[2021-09-25 07:28] VITALS: BP 108/65
[2021-09-25 07:48] LABS: CALCIUM 8.1 mg/dL (8.5-10.1); CREATININE 0.6 mg/dL (0.6-1.0); GFR 123.9
[2021-09-25] MEDS: BUDESONIDE 0.5 MG/2 ML NEBU. NEB SCH ×3 (08:00→20:58)
[2021-09-25] MEDS: FAMOTIDINE 20 MG/2 ML VIAL IV SCH ×2 (09:00→22:05)
[2021-09-25] MEDS ORDERED: NORETHINDRONE PO SCH (09:00)
[2021-09-25] MEDS: busPIRone 5 MG TABLET. PO SCH ×3 (09:00→21:00)
[2021-09-25] MEDS: HYOSCYAMINE ER 0.375 MG TAB.ER.12H PO SCH ×2 (09:00→21:00)
[2021-09-25] MEDS ORDERED: NON FORMULARY ITEM (Umeclidinium Bromide (Incruse Ellipta) 62.5 MCG) IH SCH (09:00)
[2021-09-25] MEDS: VALPROIC ACID (AS SODIUM SALT) 250 MG/5 ML SOLUTION. JT SCH ×2 (09:00→21:00)
[2021-09-25] MEDS: FLUTICASONE 50MCG/NASAL SPRAY 16GM BOTTLE. NS SCH (09:00)
[2021-09-25] MEDS: VENLAFAXINE 75 MG TABLET. PO SCH ×3 (09:00→21:00)
[2021-09-25] MEDS: MIDODRINE 5 MG TABLET PO SCH ×3 (09:02→16:29)
--- NOTE | 2021-09-25 10:19 | PDOC ---
[employer] PROGRESS NOTE Date of Service DOS: DATE: 09/25/21 TIME: 10:18 Chief Complaint Chief Complaint Gram-positive bacteremia on outpatient blood cultures Multiple medical issues including severe gastroparesis, J-tube, G-tube, sepsis, respiratory failure, asthma, DVT, GERD, hypertension, migraines, MRSA, chronic pain, narcotic dependence, cholecystectomy, appendectomy, tonsillectomy, combination of G-J tube as well as a J-tube and a G-tube, polypharmacy, depression, chronic anticoagulation, tremors, anxiety, headaches, ear infections, constipation, chronic nausea. History of Present Illness History of Present Illness 09/25/2021 Patient seen and examined Discussed with RN Chart reviewed Discussed with case management Vitals/I&O Vitals/I&O: Vital Signs Date Time Temp Pulse Resp B/P (MAP) Pulse Ox O2 Delivery O2 Flow Rate FiO2 09/25/21 09:02 84 108/65 09/25/21 07:28 97.9 18 99 Room Air 97.9 I & O 09/24/21 09/24/21 09/25/21 15:00 23:00 07:00 Intake Total 240 ml Balance 240 ml Physical Exam General: Alert Heart: Regular rate Lungs: Clear Abdomen: Other (She has a J-tube and a G-tube) Extremities: No clubbing Skin: No rashes Labs Labs: Laboratory Tests Test 09/24/21 15:01 09/25/21 06:40 White Blood Count 5.1 x10^3/uL (4.0-11.0) 3.7 x10^3/uL (4.0-11.0) Red Blood Count 3.38 x10^6/uL (3.50-5.40) 3.18 x10^6/uL (3.50-5.40) Hemoglobin 10.9 g/dL (12.0-15.5) 10.3 g/dL (12.0-15.5) Hematocrit 32.0 % (36.0-47.0) 30.5 % (36.0-47.0) Mean Corpuscular Volume 95 fL (79-100) 96 fL (79-100) Mean Corpuscular Hemoglobin 32 pg (25-35) 32 pg (25-35) Mean Corpuscular Hemoglobin Concent 34 g/dL (31-37) 34 g/dL (31-37) Red Cell Distribution Width 16.0 % (11.5-14.5) 15.3 % (11.5-14.5) Platelet Count 145 x10^3/uL (140-400) 152 x10^3/uL (140-400) Neutrophils (%) (Auto) 62 % (31-73) 56 % (31-73) Lymphocytes (%) (Auto) 25 % (24-48) 31 % (24-48) Monocytes (%) (Auto) 8 % (0-9) 9 % (0-9) Eosinophils (%) (Auto) 4 % (0-3) 4 % (0-3) Basophils (%) (Auto) 1 % (0-3) 0 % (0-3) Neutrophils # (Auto) 3.1 x10^3/uL (1.8-7.7) 2.0 x10^3/uL (1.8-7.7) Lymphocytes # (Auto) 1.3 x10^3/uL (1.0-4.8) 1.1 x10^3/uL (1.0-4.8) Monocytes # (Auto) 0.4 x10^3/uL (0.0-1.1) 0.3 x10^3/uL (0.0-1.1) Eosinophils # (Auto) 0.2 x10^3/uL (0.0-0.7) 0.1 x10^3/uL (0.0-0.7) Basophils # (Auto) 0.0 x10^3/uL (0.0-0.2) 0.0 x10^3/uL (0.0-0.2) Sodium Level 138 mmol/L (136-145) 142 mmol/L (136-145) Potassium Level 4.5 mmol/L (3.5-5.1) 4.0 mmol/L (3.5-5.1) Chloride Level 104 mmol/L (98-107) 107 mmol/L (98-107) Carbon Dioxide Level 29 mmol/L (21-32) 26 mmol/L (21-32) Anion Gap 5 (6-14) 9 (6-14) Blood Urea Nitrogen 19 mg/dL (7-20) 11 mg/dL (7-20) Creatinine 0.7 mg/dL (0.6-1.0) 0.6 mg/dL (0.6-1.0) Estimated GFR (Cockcroft-Gault) 103.7 123.9 BUN/Creatinine Ratio 27 (6-20) Glucose Level 92 mg/dL (70-99) 86 mg/dL (70-99) Lactic Acid Level 1.3 mmol/L (0.4-2.0) Calcium Level 8.5 mg/dL (8.5-10.1) 8.1 mg/dL (8.5-10.1) Total Bilirubin 0.2 mg/dL (0.2-1.0) Aspartate Amino Transf (AST/SGOT) 25 U/L (15-37) Alanine Aminotransferase (ALT/SGPT) 36 U/L (14-59) Alkaline Phosphatase 158 U/L (46-116) Total Protein 7.0 g/dL (6.4-8.2) Albumin 3.6 g/dL (3.4-5.0) Albumin/Globulin Ratio 1.1 (1.0-1.7) Assessment and Plan Assessmemt and Plan Problems Medical Problems: (1) Positive blood culture Status: Acute Gram-positive bacteremia on outpatient blood cultures Multiple medical issues including severe gastroparesis, J-tube, G-tube, sepsis, respiratory failure, asthma, DVT, GERD, hypertension, migraines, MRSA, chronic pain, narcotic dependence, cholecystectomy, appendectomy, tonsillectomy, combination of G-J tube as well as a J-tube and a G-tube, polypharmacy, depression, chronic anticoagulation, tremors, anxiety, headaches, ear infections, constipation, chronic nausea. Plan IV antibiotics ID consultation General surgery consultation Home meds DVT prophylaxis Full code TPN Trend labs Appreciate subspecialist input Comment Review of Relevant I have reviewed the following items lalo (where applicable) has been applied. Medications: Current Medications Medications (Trade) Dose Ordered Sig/Kel Route PRN Reason Start Time Stop Time Status Last Admin Dose Admin Vancomycin HCl (Vanco Per Pharmacy) 1 each PRN DAILY PRN MC SEE COMMENTS 09/24/21 14:15 09/24/21 15:41 Hydromorphone HCl (Dilaudid) 1 mg 1X ONCE IVP 09/24/21 14:15 09/24/21 14:22 DC 09/24/21 15:09 Metoclopramide HCl (Reglan Vial) 10 mg 1X ONCE IVP 09/24/21 14:15 09/24/21 14:22 DC 09/24/21 15:10 Diphenhydramine HCl (Benadryl) 25 mg 1X ONCE IVP 09/24/21 14:15 09/24/21 14:22 DC 09/24/21 15:10 Sodium Chloride 1,000 ml @ 75 mls/hr 1X ONCE IV 09/24/21 14:15 09/25/21 03:34 DC 09/24/21 15:09 Vancomycin HCl 1.5 gm/Sodium Chloride 500 ml @ 250 mls/hr 1X ONCE IV 09/24/21 15:00 09/24/21 16:59 DC 09/24/21 15:11 Vancomycin HCl 1 gm/Sodium Chloride 250 ml @ 250 mls/hr Q8H IV 09/24/21 23:00 09/25/21 06:34 Enoxaparin Sodium (Lovenox 80mg Syringe) 80 mg DAILY SQ 09/25/21 09:00 09/25/21 09:54 Famotidine (Pepcid Vial) 40 mg BID IV 09/24/21 21:00 09/24/21 20:28 Midodrine (Proamatine) 5 mg TIDAC PO 09/24/21 16:30 09/25/21 09:02 Hydromorphone HCl (Dilaudid) 1 mg PRN Q4HRS PRN IVP PAIN 09/24/21 16:15 09/25/21 09:49 Prochlorperazine Edisylate (Compazine) 10 mg PRN Q6HRS PRN IV NAUSEA/VOMITING 09/24/21 16:15 09/24/21 17:45 Diphenhydramine HCl (Benadryl) 25 mg PRN Q6HRS PRN IVP ITCHING 09/24/21 16:15 09/25/21 05:29 Piperacillin Sod/ Tazobactam Sod 4.5 gm/Dextrose 100 ml @ 200 mls/hr Q6HRS IV 09/24/21 18:00 09/25/21 05:27 Olanzapine (ZyPREXA ZYDIS) 5 mg QHS PO 09/24/21 23:00 09/24/21 22:49 Justifications for Admission Other Justification Fever LALITHA WEBB III DO September 25, 2021 10:19
[2021-09-25] MEDS ORDERED: HYDROmorphone 2 MG/ML INJ. IVP PRN (10:30)
[2021-09-25 10:59] VITALS: BP 128/82
--- NOTE | 2021-09-25 12:10 | PDOC2 ---
HANNAH [facility]LE [employer] 09/25/21 1210: CONSULT Date of Consult Date of Consult DATE: 09/25/21 TIME: 12:03 Reason for Consult Reason for Consult: + blood cultures Referring Physician Referring Physician: ER Identification/Chief Complaint Chief Complaint + blood cultures Source Source: Chart review, Patient History of Present Illness Reason for Visit: Patient well known to service. She was seen in clinic tuesday, complaints of low grade fevers. Sent for blood cultures with + results. Was directed to ER for admission and treatment She was noted to have liver disease in clinic from imaging, labs--will ask GI to evaluate Was set up with podiatry referral for her foot pain Past Medical History Cardiovascular: HTN Pulmonary: No pertinent hx CENTRAL NERVOUS SYSTEM: Other GI: GERD, Other Heme/Onc: No pertinent hx Psych: Other Musculoskeletal: Other Rheumatologic: No pertinent hx Infectious disease: Other Renal/: UTI Endocrine: No pertinent hx Past Surgical History Past Surgical History: Appendectomy, Other Family History Family History: Hypertension, Family History Unknown Social History ALCOHOL: none Drugs: None Lives: with Family Current Problem List Problem List Problems Medical Problems: (1) Positive blood culture Status: Acute Current Medications Current Medications Current Medications Vancomycin HCl (Vanco Per Pharmacy) 1 each PRN DAILY PRN MC SEE COMMENTS Last administered on 09/24/21at 15:41; Start 09/24/21 at 14:15 Hydromorphone HCl (Dilaudid) 1 mg 1X ONCE IVP Last administered on 09/24/21at 15:09; Start 09/24/21 at 14:15; Stop 09/24/21 at 14:22; Status DC Metoclopramide HCl (Reglan Vial) 10 mg 1X ONCE IVP Last administered on 09/24/21at 15:10; Start 09/24/21 at 14:15; Stop 09/24/21 at 14:22; Status DC Diphenhydramine HCl (Benadryl) 25 mg 1X ONCE IVP Last administered on 09/24/21at 15:10; Start 09/24/21 at 14:15; Stop 09/24/21 at 14:22; Status DC Sodium Chloride 1,000 ml @ 75 mls/hr 1X ONCE IV Last administered on 09/24/21at 15:09; Start 09/24/21 at 14:15; Stop 09/25/21 at 03:34; Status DC Vancomycin HCl 1.5 gm/Sodium Chloride 500 ml @ 250 mls/hr 1X ONCE IV Last administered on 09/24/21at 15:11; Start 09/24/21 at 15:00; Stop 09/24/21 at 16:59; Status DC Vancomycin HCl 1 gm/Sodium Chloride 250 ml @ 250 mls/hr Q8H IV Last administered on 09/25/21at 06:34; Start 09/24/21 at 23:00 Vancomycin HCl (Vancomycin Trough Level) 1 each 1X ONCE MC ; Start 09/25/21 at 14:30; Stop 09/25/21 at 14:31 Bisacodyl (Dulcolax Supp) 10 mg PRN DAILY PRN AR CONSTIPATION, 1sT CHOICE; Start 09/24/21 at 16:15 Diphenhydramine HCl (Benadryl) 50 mg QHS PO ; Start 09/24/21 at 21:00 Enoxaparin Sodium (Lovenox 80mg Syringe) 80 mg DAILY SQ Last administered on 09/25/21at 09:54; Start 09/25/21 at 09:00 Famotidine (Pepcid Vial) 40 mg BID IV Last administered on 09/24/21at 20:28; Start 09/24/21 at 21:00 Acetaminophen/ Hydrocodone Bitart (Lortab 7.5-325/ 15ml Oral Solution) 30 ml PRN Q6HRS PRN PO PAIN; Start 09/24/21 at 16:15 Hyoscyamine (Levbid Er) 0.375 mg BID PO ; Start 09/24/21 at 21:00 Albuterol/ Ipratropium (Duoneb) 3 ml RTQID NEB ; Start 09/24/21 at 17:00 Midodrine (Proamatine) 5 mg TIDAC PO Last administered on 09/25/21at 09:02; Start 09/24/21 at 16:30 Montelukast Sodium (Singulair) 10 mg QHS PO ; Start 09/24/21 at 21:00 Olanzapine (ZyPREXA) 5 mg QHS PO ; Start 09/24/21 at 21:00; Stop 09/24/21 at 22:21; Status DC Ondansetron HCl (Zofran) 4 mg PRN Q6HRS PRN IVP NAUSEA/VOMITING 1ST CHOICE; Start 09/24/21 at 16:15 Venlafaxine HCl (Effexor) 75 mg TID PO ; Start 09/25/21 at 09:00 Albuterol Sulfate (Ventolin Neb Soln) 2.5 mg PRN Q4HRS PRN NEB SHORTNESS OF BREATH; Start 09/24/21 at 16:30 Buspirone HCl (Buspar) 15 mg TID PO ; Start 09/24/21 at 21:00 Sumatriptan Succinate (Imitrex) 100 mg PRN Q2HR PRN PO MIGRAINE HEADACHE; Start 09/24/21 at 16:45 Fluticasone Propionate (Flonase) 2 spray DAILY NS ; Start 09/25/21 at 09:00 Budesonide (Pulmicort) 0.5 mg RTBID NEB ; Start 09/24/21 at 20:00 Non-Formulary Medication (Fremanezumab-Vfrm (Ajovy Autoinjector)) 225 mg QMONTH SQ ; Start 10/24/21 at 09:00; Status UNV Non-Formulary Medication (Naloxone HCl (Narcan)) 4 mg PRN PRN NS SEE COMMENTS; Start 09/24/21 at 16:15; Status UNV Non-Formulary Medication (Norethindrone (Rohini)) 1 tab DAILY PO ; Start 09/25/21 at 09:00; Status UNV Non-Formulary Medication (Ofloxacin ) 5 drop BID EACH EAR ; Start 09/24/21 at 21:00; Status UNV Prochlorperazine Maleate (Compazine) 10 mg PRN Q8HRS PRN PO NAUSEA/VOMITING; Start 09/24/21 at 16:30 Tizanidine HCl (Zanaflex) 2 mg PRN BID PRN PO MUSCLE SPASMS; Start 09/24/21 at 16:30 Non-Formulary Medication (Ubrogepant (Ubrelvy)) 100 mg PRN BID PRN PO HEADACHE; Start 09/24/21 at 16:15; Status UNV Non-Formulary Medication (Umeclidinium [place] (Incruse Ellipta)) 62.5 mcg DAILY IH ; Start 09/25/21 at 09:00; Status UNV Valproic Acid (Depakene) 500 mg BID JT ; Start 09/24/21 at 21:00 Hydromorphone HCl (Dilaudid) 1 mg PRN Q4HRS PRN IVP PAIN Last administered on 09/25/21at 09:49; Start 09/24/21 at 16:15; Stop 09/25/21 at 10:21; Status DC Prochlorperazine Edisylate (Compazine) 10 mg PRN Q6HRS PRN IV NAUSEA/VOMITING Last administered on 09/24/21at 17:45; Start 09/24/21 at 16:15 Piperacillin Sod/ Tazobactam Sod (Zosyn Per Pharmacy) 1 each PRN DAILY PRN MC SEE COMMENTS; Start 09/24/21 at 16:15 Diphenhydramine HCl (Benadryl) 25 mg PRN Q6HRS PRN IVP ITCHING Last administered on 09/25/21at 11:56; Start 09/24/21 at 16:15 Lorazepam (Ativan Inj) 1 mg PRN Q4HRS PRN IVP ANXIETY / AGITATION; Start 09/24/21 at 16:15 Piperacillin Sod/ Tazobactam Sod 4.5 gm/Dextrose 100 ml @ 200 mls/hr Q6HRS IV Last administered on 09/25/21at 11:55; Start 09/24/21 at 18:00 Info (Tpn Per Pharmacy) 1 each PRN DAILY PRN MC SEE COMMENTS; Start 09/24/21 at 19:15 Olanzapine (ZyPREXA ZYDIS) 5 mg QHS PO Last administered on 09/24/21at 22:49; St art 09/24/21 at 23:00 Hydromorphone HCl (Dilaudid) 2 mg PRN Q3HRS PRN IVP PAIN; Start 09/25/21 at 10:30; Status Cancel Hydromorphone HCl (Dilaudid) 1 mg PRN Q3HRS PRN IVP PAIN; Start 09/25/21 at 10:45 Active Scripts Active Ondansetron Hcl 4 Mg/2 Ml Vial (Ondansetron Hcl/Pf) 4 Mg/2 Ml Vial 4 Mg IVP PRN Q6HRS PRN 30 Days Bisacodyl 10 Mg Supp.rect 10 Mg AR PRN DAILY PRN 30 Days Reported Ofloxacin 5 Ml Drops 5 Drop EACH EAR BID Proair Respiclick (Albuterol Sulfate) 90 Mcg Aer.pow.ba 1 Puff IH Q4HRS Narcan (Naloxone HCl) 4 Mg [place] 4 Mg NS PRN PRN Rohini (Norethindrone) 0.35 Mg Tablet 1 Tab PO DAILY 28 Days Venlafaxine Hcl 75 Mg Tablet 225 Mg PO DAILY Ubrelvy (Ubrogepant) 100 Mg Tablet 100 Mg PO PRN BID PRN Flonase Allergy Relief (Fluticasone Propionate) 9.9 Ml [place].susp 2 Sprays NS DAILY Compazine (Prochlorperazine Maleate) 10 Mg Tablet 1 Tab PO PRN Q8HRS PRN 30 Days Relpax (Eletriptan Hbr) 40 Mg Tablet 40 Mg PO PRN BID PRN Lovenox (Enoxaparin Sodium) 80 Mg/0.8 Ml Disp.syrin 80 Mg SQ DAILY Famotidine 20 Mg/2 Ml Vial (Famotidine/Pf) 20 Mg/2 Ml Vial 40 Mg IV BID Hydrocodone-Apap 7.5-325/15 Soln (Hydrocodone Bit/Acetaminophen) 15 Ml Solution 30 Ml PO PRN Q6HRS PRN Montelukast Sodium Tablet (Montelukast Sodium) 10 Mg Tablet 10 Mg PO DAILY Buspirone Hcl 15 Mg Tablet 1 Tab PO TID Midodrine Hcl 5 Mg Tablet 5 Mg PO TID Zyprexa (Olanzapine) 5 Mg Tablet 1 Tab PO QHS Benadryl (Diphenhydramine Hcl) 25 Mg Capsule 2 Cap PO QHS 30 Days Incruse Ellipta (Umeclidinium [place]) 62.5 Mcg Blst.w.dev 62.5 Mcg IH DAILY Advair 250-50 Diskus (Fluticasone/Salmeterol) 1 Each Disk.w.dev 1 Puff IH BID Valproic Acid (Valproate Sodium) 500 Mg/10 Ml Solution 500 Mg JT BID Levbid (Hyoscyamine Sulfate) 0.375 Mg Tab.er.12h 0.375 Mg JT BID Ajovy Autoinjector (Fremanezumab-Vfrm) 225 Mg/1.5 Ml Auto.injct 225 Mg SQ QMONTH Tizanidine Hcl 2 Mg Capsule 2 Mg JT PRN BID PRN Duoneb 0.5-3(2.5) Mg/3 Ml (Albuterol/Ipratropium) 3 Ml Ampul.neb 3 Ml NEB QID Allergies Allergies: Coded Allergies: iron (Verified Allergy, Severe, Anaphylaxis, 09/14/21) Penicillins (Verified Allergy, Intermediate, LIGHT RASH CHILD, 09/14/21) TOLERATES ZOSYN Sulfa (Sulfonamide Antibiotics) (Verified Allergy, Intermediate, 09/14/21) I S O L A T I O N *CONTACT* (Verified Allergy, Unknown, 09/14/21) mrsa ROS General: YES: Chills, Fatigue PSYCHOLOGICAL ROS: YES: Depression; No: Anxiety Eyes: No Decreased vision, No Double vision HEENT: No: Heacaches, Sore Throat Hematological and Lymphatic: No: Bleeding Problems, Blood Clots Respiratory: No: Cough, Shortness of breath Cardiovascular: No Chest Pain, No Palpitations Gastrointestinal: Yes Nausea, Yes Abdominal Pain Genitourinary: No Dysuria, No Retention Musculoskeletal: Yes Joint Pain, Yes Joint Swelling, Yes Swelling In: (legs) Neurological: No Confusion, No Numbness/Tingling Skin: No Pruritus, No Rash Physical Exam General: Cooperative, Other (chills during exam) HEENT: Atraumatic, Mucous membr. moist/pink Lungs: Clear to auscultation, Normal air movement Heart: Regular rate, Normal S1, Normal S2 Abdomen: Soft Extremities: No clubbing, Other (foot in boot ) Skin: No rashes Neuro: Normal speech Psych/Mental Status: Mental status NL, Mood NL MUSCULOSKELETAL: No deformity, Other (loewr ext swelling ) Vitals VITALS Vital Signs Date Time Temp Pulse Resp B/P (MAP) Pulse Ox O2 Delivery O2 Flow Rate FiO2 09/25/21 11:30 85 128/82 09/25/21 10:59 98.1 18 97 Room Air 98.1 Labs Labs Laboratory Tests Test 09/24/21 15:01 09/25/21 06:40 White Blood Count 5.1 x10^3/uL (4.0-11.0) 3.7 x10^3/uL (4.0-11.0) Red Blood Count 3.38 x10^6/uL (3.50-5.40) 3.18 x10^6/uL (3.50-5.40) Hemoglobin 10.9 g/dL (12.0-15.5) 10.3 g/dL (12.0-15.5) Hematocrit 32.0 % (36.0-47.0) 30.5 % (36.0-47.0) Mean Corpuscular Volume 95 fL (79-100) 96 fL (79-100) Mean Corpuscular Hemoglobin 32 pg (25-35) 32 pg (25-35) Mean Corpuscular Hemoglobin Concent 34 g/dL (31-37) 34 g/dL (31-37) Red Cell Distribution Width 16.0 % (11.5-14.5) 15.3 % (11.5-14.5) Platelet Count 145 x10^3/uL (140-400) 152 x10^3/uL (140-400) Neutrophils (%) (Auto) 62 % (31-73) 56 % (31-73) Lymphocytes (%) (Auto) 25 % (24-48) 31 % (24-48) Monocytes (%) (Auto) 8 % (0-9) 9 % (0-9) Eosinophils (%) (Auto) 4 % (0-3) 4 % (0-3) Basophils (%) (Auto) 1 % (0-3) 0 % (0-3) Neutrophils # (Auto) 3.1 x10^3/uL (1.8-7.7) 2.0 x10^3/uL (1.8-7.7) Lymphocytes # (Auto) 1.3 x10^3/uL (1.0-4.8) 1.1 x10^3/uL (1.0-4.8) Monocytes # (Auto) 0.4 x10^3/uL (0.0-1.1) 0.3 x10^3/uL (0.0-1.1) Eosinophils # (Auto) 0.2 x10^3/uL (0.0-0.7) 0.1 x10^3/uL (0.0-0.7) Basophils # (Auto) 0.0 x10^3/uL (0.0-0.2) 0.0 x10^3/uL (0.0-0.2) Sodium Level 138 mmol/L (136-145) 142 mmol/L (136-145) Potassium Level 4.5 mmol/L (3.5-5.1) 4.0 mmol/L (3.5-5.1) Chloride Level 104 mmol/L (98-107) 107 mmol/L (98-107) Carbon Dioxide Level 29 mmol/L (21-32) 26 mmol/L (21-32) Anion Gap 5 (6-14) 9 (6-14) Blood Urea Nitrogen 19 mg/dL (7-20) 11 mg/dL (7-20) Creatinine 0.7 mg/dL (0.6-1.0) 0.6 mg/dL (0.6-1.0) Estimated GFR (Cockcroft-Gault) 103.7 123.9 BUN/Creatinine Ratio 27 (6-20) Glucose Level 92 mg/dL (70-99) 86 mg/dL (70-99) Lactic Acid Level 1.3 mmol/L (0.4-2.0) Calcium Level 8.5 mg/dL (8.5-10.1) 8.1 mg/dL (8.5-10.1) Total Bilirubin 0.2 mg/dL (0.2-1.0) Aspartate Amino Transf (AST/SGOT) 25 U/L (15-37) Alanine Aminotransferase (ALT/SGPT) 36 U/L (14-59) Alkaline Phosphatase 158 U/L (46-116) Total Protein 7.0 g/dL (6.4-8.2) Albumin 3.6 g/dL (3.4-5.0) Albumin/Globulin Ratio 1.1 (1.0-1.7) Laboratory Tests Test 09/24/21 15:01 09/25/21 06:40 White Blood Count 5.1 x10^3/uL (4.0-11.0) 3.7 x10^3/uL (4.0-11.0) Red Blood Count 3.38 x10^6/uL (3.50-5.40) 3.18 x10^6/uL (3.50-5.40) Hemoglobin 10.9 g/dL (12.0-15.5) 10.3 g/dL (12.0-15.5) Hematocrit 32.0 % (36.0-47.0) 30.5 % (36.0-47.0) Mean Corpuscular Volume 95 fL (79-100) 96 fL (79-100) Mean Corpuscular Hemoglobin 32 pg (25-35) 32 pg (25-35) Mean Corpuscular Hemoglobin Concent 34 g/dL (31-37) 34 g/dL (31-37) Red Cell Distribution Width 16.0 % (11.5-14.5) 15.3 % (11.5-14.5) Platelet Count 145 x10^3/uL (140-400) 152 x10^3/uL (140-400) Neutrophils (%) (Auto) 62 % (31-73) 56 % (31-73) Lymphocytes (%) (Auto) 25 % (24-48) 31 % (24-48) Monocytes (%) (Auto) 8 % (0-9) 9 % (0-9) Eosinophils (%) (Auto) 4 % (0-3) 4 % (0-3) Basophils (%) (Auto) 1 % (0-3) 0 % (0-3) Neutrophils # (Auto) 3.1 x10^3/uL (1.8-7.7) 2.0 x10^3/uL (1.8-7.7) Lymphocytes # (Auto) 1.3 x10^3/uL (1.0-4.8) 1.1 x10^3/uL (1.0-4.8) Monocytes # (Auto) 0.4 x10^3/uL (0.0-1.1) 0.3 x10^3/uL (0.0-1.1) Eosinophils # (Auto) 0.2 x10^3/uL (0.0-0.7) 0.1 x10^3/uL (0.0-0.7) Basophils # (Auto) 0.0 x10^3/uL (0.0-0.2) 0.0 x10^3/uL (0.0-0.2) Sodium Level 138 mmol/L (136-145) 142 mmol/L (136-145) Potassium Level 4.5 mmol/L (3.5-5.1) 4.0 mmol/L (3.5-5.1) Chloride Level 104 mmol/L (98-107) 107 mmol/L (98-107) Carbon Dioxide Level 29 mmol/L (21-32) 26 mmol/L (21-32) Anion Gap 5 (6-14) 9 (6-14) Blood Urea Nitrogen 19 mg/dL (7-20) 11 mg/dL (7-20) Creatinine 0.7 mg/dL (0.6-1.0) 0.6 mg/dL (0.6-1.0) Estimated GFR (Cockcroft-Gault) 103.7 123.9 BUN/Creatinine Ratio 27 (6-20) Glucose Level 92 mg/dL (70-99) 86 mg/dL (70-99) Lactic Acid Level 1.3 mmol/L (0.4-2.0) Calcium Level 8.5 mg/dL (8.5-10.1) 8.1 mg/dL (8.5-10.1) Total Bilirubin 0.2 mg/dL (0.2-1.0) Aspartate Amino Transf (AST/SGOT) 25 U/L (15-37) Alanine Aminotransferase (ALT/SGPT) 36 U/L (14-59) Alkaline Phosphatase 158 U/L (46-116) Total Protein 7.0 g/dL (6.4-8.2) Albumin 3.6 g/dL (3.4-5.0) Albumin/Globulin Ratio 1.1 (1.0-1.7) Assessment/Plan Assessment/Plan ID consulted for + blood cultures GI eval with liver disease concerns for TPN with liver issues, ongoing line infections TORIE MILLER MD 09/25/21 1303: CONSULT Assessment/Plan Assessment/Plan Pt seen and examined. Agree with Greta Valle's note Pt with line sepsis abd soft, mild TTP, tubes in place cont per ID Thanks for consult! HANNAH VALLE VICE PRESIDENT [employer] September 25, 2021 12:10 TORIE MILLER MD September 25, 2021 13:03
[2021-09-25] MEDS: TPN PER PHARMACY MC PRN (13:53)
--- NOTE | 2021-09-25 14:04 | NUR ---
Pharmacy TPN Dosing Note S: SUNITHA SCHULTZ is a 21 year old F Currently receiving TPN started 09/25/21 B:Pertinent PMH: Height: 5 feet, 7 inches Weight: 81.899197 kg Current diet: LABS: Sodium: 142 Potassium: 4.0 Chloride: 107 Calcium: 8.1 Corrected Calcium: 8.42 Magnesium: CO2: 26 SCr: 0.6 Glucose: 86 Albumin: 3.6 AST: 25 ALT: 36 TPN FORMULA: TPN TYPE: AMINO ACIDS: 80 gm DEXTROSE: 280 gm LIPIDS: 30 gm SODIUM CHLORIDE: 75 mEq SODIUM ACETATE: mEq SODIUM PHOSPHATE: mmol POTASSIUM CHLORIDE: 50 mEq POTASSIUM ACETATE: mEq POTASSIUM PHOSPHATE: mmol MAGNESIUM: 28 mEq CALCIUM: 13 mEq INSULIN: units MULTIPLE VITAMIN: 10 ml TRACE ELEMENTS: 1ML ml(s) TPN PLAN: Start tpn w/ macros per dietary. The rest per home tpn from last admission. R: Begin TPN as ordered Will monitor electrolytes, glucose, and tolerance to TPN. ELSA FRIEDMAN, [facility], 09/25/21 [id number]
[2021-09-25] MEDS: VANCOMYCIN PER PHARMACY MC PRN (14:14)
--- NOTE | 2021-09-25 14:51 | PDOC2 ---
GI CONSULT Date of Service: DATE: 09/25/21 TIME: 14:31 Reason For Consult: Abnormal LFT's HPI: HPI: 21 y/o female well-known to us. Admitted this occasion after outpatient blood cultures positive for GPC, now ID'd as Staph. epi. Asked to see on this occasion for elevated LFT's. Currently only elevated alkaline phosphatase; transaminases and bilirubin normal. Review of old labs show AP up for a while, but no trend. Transaminases in the past mildly if at all elevated. Multiple CT's here with no liver findings. Had ultrasound last week describing hepatic steatosis. S/p cholecystectomy. Is on chronic TPN. Not more than her usual abdominal discomfort. No N, V. H/o GERD. [place] to have gastroparesis in the past vs. CVS vs rumination syndrome. Believe has had pyloroplasty which was ineffective. Has failed attempts to feed per j-tubes. Has gastrostomy for "venting". No pancreatic history. Chronic issues with constipation, taking narcotics long-term as well. Mutiple agents for this ineffective. Had one MRCP mentioning hepatic adenoma. Had colonoscopy 2018 with couple of tiny adenomas. ID asked to see re: the blood cultures; their opinion pending. PMH: PMH: HTN, UTI's, line infections, other surgeries as above. FH: Family History: CVA, DM, Hypertension Social History: Smoke: No ALCOHOL: none Drugs: None ROS: GEN: Denies fevers, chills, sweats HEENT: Denies blurred vision, sore throat CV: Denies chest pain RESP: Denies shortness of air, cough GI: Per HPI : Denies hematuria, dysuria ENDO: Denies weight changes NEURO: Denies confusion, dizziness MSK: Denies weakness, joint pain/swelling SKIN: Denies jaundice, pruritus Vitals: Vitals: Vital Signs Date Time Temp Pulse Resp B/P (MAP) Pulse Ox O2 Delivery O2 Flow Rate FiO2 09/25/21 13:20 Room Air 09/25/21 11:30 85 128/82 09/25/21 10:59 98.1 18 97 98.1 Labs: Labs: Laboratory Tests Test 09/24/21 15:01 09/25/21 06:40 White Blood Count 5.1 x10^3/uL (4.0-11.0) 3.7 x10^3/uL (4.0-11.0) Red Blood Count 3.38 x10^6/uL (3.50-5.40) 3.18 x10^6/uL (3.50-5.40) Hemoglobin 10.9 g/dL (12.0-15.5) 10.3 g/dL (12.0-15.5) Hematocrit 32.0 % (36.0-47.0) 30.5 % (36.0-47.0) Mean Corpuscular Volume 95 fL (79-100) 96 fL (79-100) Mean Corpuscular Hemoglobin 32 pg (25-35) 32 pg (25-35) Mean Corpuscular Hemoglobin Concent 34 g/dL (31-37) 34 g/dL (31-37) Red Cell Distribution Width 16.0 % (11.5-14.5) 15.3 % (11.5-14.5) Platelet Count 145 x10^3/uL (140-400) 152 x10^3/uL (140-400) Neutrophils (%) (Auto) 62 % (31-73) 56 % (31-73) Lymphocytes (%) (Auto) 25 % (24-48) 31 % (24-48) Monocytes (%) (Auto) 8 % (0-9) 9 % (0-9) Eosinophils (%) (Auto) 4 % (0-3) 4 % (0-3) Basophils (%) (Auto) 1 % (0-3) 0 % (0-3) Neutrophils # (Auto) 3.1 x10^3/uL (1.8-7.7) 2.0 x10^3/uL (1.8-7.7) Lymphocytes # (Auto) 1.3 x10^3/uL (1.0-4.8) 1.1 x10^3/uL (1.0-4.8) Monocytes # (Auto) 0.4 x10^3/uL (0.0-1.1) 0.3 x10^3/uL (0.0-1.1) Eosinophils # (Auto) 0.2 x10^3/uL (0.0-0.7) 0.1 x10^3/uL (0.0-0.7) Basophils # (Auto) 0.0 x10^3/uL (0.0-0.2) 0.0 x10^3/uL (0.0-0.2) Sodium Level 138 mmol/L (136-145) 142 mmol/L (136-145) Potassium Level 4.5 mmol/L (3.5-5.1) 4.0 mmol/L (3.5-5.1) Chloride Level 104 mmol/L (98-107) 107 mmol/L (98-107) Carbon Dioxide Level 29 mmol/L (21-32) 26 mmol/L (21-32) Anion Gap 5 (6-14) 9 (6-14) Blood Urea Nitrogen 19 mg/dL (7-20) 11 mg/dL (7-20) Creatinine 0.7 mg/dL (0.6-1.0) 0.6 mg/dL (0.6-1.0) Estimated GFR (Cockcroft-Gault) 103.7 123.9 BUN/Creatinine Ratio 27 (6-20) Glucose Level 92 mg/dL (70-99) 86 mg/dL (70-99) Lactic Acid Level 1.3 mmol/L (0.4-2.0) Calcium Level 8.5 mg/dL (8.5-10.1) 8.1 mg/dL (8.5-10.1) Total Bilirubin 0.2 mg/dL (0.2-1.0) Aspartate Amino Transf (AST/SGOT) 25 U/L (15-37) Alanine Aminotransferase (ALT/SGPT) 36 U/L (14-59) Alkaline Phosphatase 158 U/L (46-116) Total Protein 7.0 g/dL (6.4-8.2) Albumin 3.6 g/dL (3.4-5.0) Albumin/Globulin Ratio 1.1 (1.0-1.7) Mildly anemic. Alk phos as isolated abnormal chemstry. Blood cultues growing Staph. epi--no sensitivities yet. Allergies: Coded Allergies: iron (Verified Allergy, Severe, Anaphylaxis, 09/14/21) Penicillins (Verified Allergy, Intermediate, LIGHT RASH CHILD, 09/14/21) TOLERATES ZOSYN Sulfa (Sulfonamide Antibiotics) (Verified Allergy, Intermediate, 09/14/21) I S O L A T I O N *CONTACT* (Verified Allergy, Unknown, 09/14/21) mrsa Medications: Current Medications Medications (Trade) Dose Ordered Sig/Kel Route PRN Reason Start Time Stop Time Status Last Admin Dose Admin Vancomycin HCl 1.5 gm/Sodium Chloride 500 ml @ 250 mls/hr 1X ONCE IV 09/24/21 15:00 09/24/21 16:59 DC 09/24/21 15:11 Vancomycin HCl 1 gm/Sodium Chloride 250 ml @ 250 mls/hr Q8H IV 09/24/21 23:00 09/25/21 06:34 Enoxaparin Sodium (Lovenox 80mg Syringe) 80 mg DAILY SQ 09/25/21 09:00 09/25/21 09:54 Famotidine (Pepcid Vial) 40 mg BID IV 09/24/21 21:00 09/24/21 20:28 Midodrine (Proamatine) 5 mg TIDAC PO 09/24/21 16:30 09/25/21 09:02 Hydromorphone HCl (Dilaudid) 1 mg PRN Q4HRS PRN IVP PAIN 09/24/21 16:15 09/25/21 10:21 DC 09/25/21 09:49 Prochlorperazine Edisylate (Compazine) 10 mg PRN Q6HRS PRN IV NAUSEA/VOMITING 09/24/21 16:15 09/24/21 17:45 Diphenhydramine HCl (Benadryl) 25 mg PRN Q6HRS PRN IVP ITCHING 09/24/21 16:15 09/25/21 11:56 Piperacillin Sod/ Tazobactam Sod 4.5 gm/Dextrose 100 ml @ 200 mls/hr Q6HRS IV 09/24/21 18:00 09/25/21 11:55 Info (Tpn Per Pharmacy) 1 each PRN DAILY PRN MC SEE COMMENTS 09/24/21 19:15 09/25/21 13:53 Olanzapine (ZyPREXA ZYDIS) 5 mg QHS PO 09/24/21 23:00 09/24/21 22:49 Hydromorphone HCl (Dilaudid) 1 mg PRN Q3HRS PRN IVP PAIN 09/25/21 10:45 09/25/21 13:20 PE: GEN: NAD HEENT: Atraumatic, PERRLA LUNGS: CTAB, has port. HEART: RRR, no murmurs ABD: NABS, S/ND/mild non-specific tenderness, no masses. G and J tubes. Midline scar. EXTREMITY: No edema SKIN: No rashes, no jaundice NEURO/PSYCH: A & O 3 A/P: A/P: IMP: Isolated elevation of alkaline phosphatase; has hepatic steatosis by imaging and likely this from TPN. Negative hepatitis serologies in the past and wrong age group for PBC and no trend on labs nor pruritis (usually an early symptom). If real, bacteremia may contribute. Gastroparesis? Has failed all attempts at enteral feeding. H/o GERD. S/p deepak, I think pyloroplasty as well. H/o colon polyps, up to date on surveillance. S/p G- and J-tubes. REC: Would continue TPN. Observe liver-lowry. If ever worsening trend on labs, may need to con antiquer altering TPN. Await ID opinion. GEORGES DONNELLY MD September 25, 2021 14:51
[2021-09-25] MEDS: ONDANSETRON PF 4 MG/2 ML VIAL. IVP PRN (15:04)
[2021-09-25 15:05] LABS: VANC TR 11.8 mcg/mL (10.0-20.0)
[2021-09-25 15:09] VITALS: BP 110/64
[2021-09-25] MEDS: DAPTOmycin (GENERIC) IVPB 420 MG in IV NORMAL SALINE 50ML 50 ML IV SCH (16:29)
[2021-09-25 19:15] VITALS: BP 124/68
[2021-09-25] MEDS: IPRATRPIUM/ALBUTEROL 0.5/2.5MG 3 ML NEBU. NEB SCH (20:55)
[2021-09-25] MEDS: diphenhydrAMINE HCL 25 MG CAPSULE PO SCH (21:00)
[2021-09-25] MEDS: MONTELUKAST SODIUM 10 MG TABLET. PO SCH (21:00)
[2021-09-25] MEDS ORDERED: TOTAL PARENTERAL NUTRITION IV SCH (22:00)
[2021-09-25] MEDS ORDERED: DEXTROSE 70% IV SCH (22:00)
[2021-09-25] MEDS ORDERED: AMINO ACID IV SCH (22:00)
[2021-09-25] MEDS ORDERED: [UNRECOGNIZED DRUG - OTHER] IV SCH (22:00)
--- NOTE | 2021-09-25 22:40 | CONS ---
DATE OF CONSULTATION: 09/25/2021 REQUESTING PHYSICIAN: Coni Bynum DO REASON FOR CONSULTATION: Blood culture positive. HISTORY OF PRESENT ILLNESS: This is a 21-year-old female who is very well known to us. The patient had fever at home, hence blood culture was done and it was gram-positive cocci, hence the patient was asked to come in. The patient is comfortable right now. The patient denies any nausea, vomiting, diarrhea or any other complaints other than her old chronic nausea and chronic abdominal pain. The patient has been started on vancomycin and Zosyn. PAST MEDICAL HISTORY: Positive for gastroesophageal reflux disease, hypertension, DVT, history of GJ tube, gastroparesis, multiple infections with line infections in the past, polypharmacy, depression, cholecystectomy, appendicectomy. SOCIAL HISTORY: Negative for smoking, alcohol or drug use. ALLERGIES: LISTED ALLERGIC TO PENICILLIN AND SULFA. CURRENT MEDICATIONS: Reviewed. REVIEW OF SYSTEMS: As in HPI. All other systems reviewed and are negative. PHYSICAL EXAMINATION: GENERAL: Alert and oriented female, not in distress. VITAL SIGNS: Stable, afebrile. HEENT: NAD. NECK: Supple, no JVP, no lymphadenopathy. LUNGS: Clear. HEART: S1, S2, regular. ABDOMEN: Soft, nontender, no organomegaly. GJ tube is in place. EXTREMITIES: No edema or cyanosis. SKIN: Unremarkable. CHEST: Her tunneled PICC line in the right upper chest is unremarkable. LABORATORY DATA: White count is 3.7. BUN and creatinine is normal. Her blood culture is coag-negative staph. Culture is from the line. IMPRESSION: 1. Coagulase-negative staph bacteremia. 2. Fever, which has resolved. RECOMMENDATIONS: Change antibiotics to daptomycin. The patient can be discharged on IV daptomycin for 7 days if that can be arranged. Thank you very much, Dr. Bynum, for giving me opportunity to participate in this patient's care. YAZ/PETE DR: Sierra TID: [id number]
[2021-09-25 23:13] VITALS: BP 124/60
[2021-09-26] MEDS: HYDROmorphone 2 MG/ML INJ. IVP PRN ×7 (02:01→22:12)
[2021-09-26 03:05] VITALS: BP 94/50
[2021-09-26] MEDS: diphenhydrAMINE 50 MG/ML VIAL IVP PRN ×3 (04:59→21:10)
[2021-09-26 06:26] VITALS: BP 109/63
[2021-09-26 06:42] LABS: BASO % 0 % (0-3); EOS # 0.1 x10^3/uL (0.0-0.7); EOS % 2 % (0-3); HEMATOCRIT 31.4 % (36.0-47.0); HEMOGLOBIN 10.7 g/dL (12.0-15.5); LYMPH # 0.9 x10^3/uL (1.0-4.8); LYMPH % 30 % (24-48); MEAN CORPUSCULAR HEMOGLOBIN 33 pg (25-35); MEAN CORPUSCULAR HGB CONC 34 g/dL (31-37); MEAN CORPUSCULAR VOLUME 95 fL (79-100); MONO # 0.3 x10^3/uL (0.0-1.1); MONO % 10 % (0-9); NEUT # 1.8 x10^3/uL (1.8-7.7); NEUT % 58 % (31-73); PLATELET COUNT 155 x10^3/uL (140-400); RED BLOOD COUNT 3.29 x10^6/uL (3.50-5.40); WHITE BLOOD COUNT 3.1 x10^3/uL (4.0-11.0)
[2021-09-26 06:50] LABS: MAGNESIUM 1.8 mg/dL (1.8-2.4)
[2021-09-26 06:51] LABS: CALCIUM 8.6 mg/dL (8.5-10.1); CREATININE 0.5 mg/dL (0.6-1.0); GFR 152.9; POTASSIUM 3.8 mmol/L (3.5-5.1)
[2021-09-26] MEDS: BUDESONIDE 0.5 MG/2 ML NEBU. NEB SCH ×2 (08:00→20:20)
[2021-09-26] MEDS: IPRATRPIUM/ALBUTEROL 0.5/2.5MG 3 ML NEBU. NEB SCH ×3 (08:00→20:20)
--- NOTE | 2021-09-26 08:00 | PDOC ---
SURGICAL PROGRESS NOTE DATE: 09/26/21 TIME: 07:58 Subjective abd pain less chills no emesis ROS: No fevers no chest pain no cough + leg pain and swelling Vital Signs Vital Signs Date Time Temp Pulse Resp B/P (MAP) Pulse Ox O2 Delivery O2 Flow Rate FiO2 09/26/21 06:26 97.8 64 18 109/63 (78) 95 Room Air 97.8 I&O Intake and Output 09/26/21 07:00 Intake Total 150 ml Balance 150 ml IV Total 150 ml # Voids 3 General: Alert, Cooperative, No acute distress HEENT: Mucous membr. moist/pink Lungs: Clear to auscultation, Normal air movement Heart: Regular rate, Normal S1, Normal S2 Abdomen: Soft, Other (tubes in place) Labs Laboratory Tests Test 09/24/21 15:01 09/25/21 06:40 09/25/21 14:40 09/26/21 06:10 White Blood Count 5.1 x10^3/uL (4.0-11.0) 3.7 x10^3/uL (4.0-11.0) 3.1 x10^3/uL (4.0-11.0) Red Blood Count 3.38 x10^6/uL (3.50-5.40) 3.18 x10^6/uL (3.50-5.40) 3.29 x10^6/uL (3.50-5.40) Hemoglobin 10.9 g/dL (12.0-15.5) 10.3 g/dL (12.0-15.5) 10.7 g/dL (12.0-15.5) Hematocrit 32.0 % (36.0-47.0) 30.5 % (36.0-47.0) 31.4 % (36.0-47.0) Mean Corpuscular Volume 95 fL (79-100) 96 fL (79-100) 95 fL (79-100) Mean Corpuscular Hemoglobin 32 pg (25-35) 32 pg (25-35) 33 pg (25-35) Mean Corpuscular Hemoglobin Concent 34 g/dL (31-37) 34 g/dL (31-37) 34 g/dL (31-37) Red Cell Distribution Width 16.0 % (11.5-14.5) 15.3 % (11.5-14.5) 15.0 % (11.5-14.5) Platelet Count 145 x10^3/uL (140-400) 152 x10^3/uL (140-400) 155 x10^3/uL (140-400) Neutrophils (%) (Auto) 62 % (31-73) 56 % (31-73) 58 % (31-73) Lymphocytes (%) (Auto) 25 % (24-48) 31 % (24-48) 30 % (24-48) Monocytes (%) (Auto) 8 % (0-9) 9 % (0-9) 10 % (0-9) Eosinophils (%) (Auto) 4 % (0-3) 4 % (0-3) 2 % (0-3) Basophils (%) (Auto) 1 % (0-3) 0 % (0-3) 0 % (0-3) Neutrophils # (Auto) 3.1 x10^3/uL (1.8-7.7) 2.0 x10^3/uL (1.8-7.7) 1.8 x10^3/uL (1.8-7.7) Lymphocytes # (Auto) 1.3 x10^3/uL (1.0-4.8) 1.1 x10^3/uL (1.0-4.8) 0.9 x10^3/uL (1.0-4.8) Monocytes # (Auto) 0.4 x10^3/uL (0.0-1.1) 0.3 x10^3/uL (0.0-1.1) 0.3 x10^3/uL (0.0-1.1) Eosinophils # (Auto) 0.2 x10^3/uL (0.0-0.7) 0.1 x10^3/uL (0.0-0.7) 0.1 x10^3/uL (0.0-0.7) Basophils # (Auto) 0.0 x10^3/uL (0.0-0.2) 0.0 x10^3/uL (0.0-0.2) 0.0 x10^3/uL (0.0-0.2) Sodium Level 138 mmol/L (136-145) 142 mmol/L (136-145) 141 mmol/L (136-145) Potassium Level 4.5 mmol/L (3.5-5.1) 4.0 mmol/L (3.5-5.1) 3.8 mmol/L (3.5-5.1) Chloride Level 104 mmol/L (98-107) 107 mmol/L (98-107) 106 mmol/L (98-107) Carbon Dioxide Level 29 mmol/L (21-32) 26 mmol/L (21-32) 25 mmol/L (21-32) Anion Gap 5 (6-14) 9 (6-14) 10 (6-14) Blood Urea Nitrogen 19 mg/dL (7-20) 11 mg/dL (7-20) 7 mg/dL (7-20) Creatinine 0.7 mg/dL (0.6-1.0) 0.6 mg/dL (0.6-1.0) 0.5 mg/dL (0.6-1.0) Estimated GFR (Cockcroft-Gault) 103.7 123.9 152.9 BUN/Creatinine Ratio 27 (6-20) Glucose Level 92 mg/dL (70-99) 86 mg/dL (70-99) 116 mg/dL (70-99) Lactic Acid Level 1.3 mmol/L (0.4-2.0) Calcium Level 8.5 mg/dL (8.5-10.1) 8.1 mg/dL (8.5-10.1) 8.6 mg/dL (8.5-10.1) Total Bilirubin 0.2 mg/dL (0.2-1.0) Aspartate Amino Transf (AST/SGOT) 25 U/L (15-37) Alanine Aminotransferase (ALT/SGPT) 36 U/L (14-59) Alkaline Phosphatase 158 U/L (46-116) Total Protein 7.0 g/dL (6.4-8.2) Albumin 3.6 g/dL (3.4-5.0) Albumin/Globulin Ratio 1.1 (1.0-1.7) Vancomycin Level Trough 11.8 mcg/mL (10.0-20.0) Vancomycin Last Dose Date 09/25/21 Vancomycin Last Dose Time 0700 Phosphorus Level 5.0 mg/dL (2.6-4.7) Magnesium Level 1.8 mg/dL (1.8-2.4) Creatine Kinase 43 U/L (26-192) Laboratory Tests Test 09/25/21 14:40 09/26/21 06:10 Vancomycin Level Trough 11.8 mcg/mL (10.0-20.0) Vancomycin Last Dose Date 09/25/21 Vancomycin Last Dose Time 0700 White Blood Count 3.1 x10^3/uL (4.0-11.0) Red Blood Count 3.29 x10^6/uL (3.50-5.40) Hemoglobin 10.7 g/dL (12.0-15.5) Hematocrit 31.4 % (36.0-47.0) Mean Corpuscular Volume 95 fL (79-100) Mean Corpuscular Hemoglobin 33 pg (25-35) Mean Corpuscular Hemoglobin Concent 34 g/dL (31-37) Red Cell Distribution Width 15.0 % (11.5-14.5) Platelet Count 155 x10^3/uL (140-400) Neutrophils (%) (Auto) 58 % (31-73) Lymphocytes (%) (Auto) 30 % (24-48) Monocytes (%) (Auto) 10 % (0-9) Eosinophils (%) (Auto) 2 % (0-3) Basophils (%) (Auto) 0 % (0-3) Neutrophils # (Auto) 1.8 x10^3/uL (1.8-7.7) Lymphocytes # (Auto) 0.9 x10^3/uL (1.0-4.8) Monocytes # (Auto) 0.3 x10^3/uL (0.0-1.1) Eosinophils # (Auto) 0.1 x10^3/uL (0.0-0.7) Basophils # (Auto) 0.0 x10^3/uL (0.0-0.2) Sodium Level 141 mmol/L (136-145) Potassium Level 3.8 mmol/L (3.5-5.1) Chloride Level 106 mmol/L (98-107) Carbon Dioxide Level 25 mmol/L (21-32) Anion Gap 10 (6-14) Blood Urea Nitrogen 7 mg/dL (7-20) Creatinine 0.5 mg/dL (0.6-1.0) Estimated GFR (Cockcroft-Gault) 152.9 Glucose Level 116 mg/dL (70-99) Calcium Level 8.6 mg/dL (8.5-10.1) Phosphorus Level 5.0 mg/dL (2.6-4.7) Magnesium Level 1.8 mg/dL (1.8-2.4) Creatine Kinase 43 U/L (26-192) Problem List Problems Medical Problems: (1) Positive blood culture Status: Acute Assessment/Plan abx tpn supportive care dc planning Justicifation of Admission Dx: Justifications for Admission: Justification of Admission Dx: Yes Sepsis: Bacteremia HANNAH VALLE CROWN IRONER September 26, 2021 08:00
[2021-09-26] MEDS: FAMOTIDINE 20 MG/2 ML VIAL IV SCH ×2 (08:08→22:11)
[2021-09-26] MEDS: HYOSCYAMINE ER 0.375 MG TAB.ER.12H PO SCH ×2 (08:09→21:00)
[2021-09-26] MEDS: busPIRone 5 MG TABLET. PO SCH ×3 (08:09→21:00)
[2021-09-26] MEDS: VENLAFAXINE 75 MG TABLET. PO SCH ×3 (08:09→21:00)
[2021-09-26] MEDS: VALPROIC ACID (AS SODIUM SALT) 250 MG/5 ML SOLUTION. JT SCH ×2 (08:09→21:00)
[2021-09-26] MEDS: MIDODRINE 5 MG TABLET PO SCH ×3 (08:15→16:30)
[2021-09-26] MEDS: FLUTICASONE 50MCG/NASAL SPRAY 16GM BOTTLE. NS SCH (08:15)
[2021-09-26 11:00] VITALS: BP 118/76
[2021-09-26] MEDS: TPN PER PHARMACY MC PRN (11:01)
--- NOTE | 2021-09-26 11:38 | PDOC ---
[facility] PROGRESS NOTE Date of Service DOS: DATE: 09/26/21 TIME: 11:37 Chief Complaint Chief Complaint Gram-positive bacteremia on outpatient blood cultures Multiple medical issues including severe gastroparesis, J-tube, G-tube, sepsis, respiratory failure, asthma, DVT, GERD, hypertension, migraines, MRSA, chronic pain, narcotic dependence, cholecystectomy, appendectomy, tonsillectomy, combination of G-J tube as well as a J-tube and a G-tube, polypharmacy, depression, chronic anticoagulation, tremors, anxiety, headaches, ear infections, constipation, chronic nausea. History of Present Illness History of Present Illness 09/26/2021 Patient seen and examined She is up on the edge of the bed Waiting for her pain medication Discussed with RN Chart reviewed 09/25/2021 Patient seen and examined Discussed with RN Chart reviewed Discussed with case management Vitals/I&O Vitals/I&O: Vital Signs Date Time Temp Pulse Resp B/P (MAP) Pulse Ox O2 Delivery O2 Flow Rate FiO2 09/26/21 10:55 95 Room Air 09/26/21 08:15 64 109/63 09/26/21 06:26 97.8 18 97.8 I & O 09/25/21 09/25/21 09/26/21 15:00 23:00 07:00 Intake Total 100 ml 50 ml Balance 100 ml 50 ml Physical Exam General: Alert, Cooperative, No acute distress Heart: Regular rate, Normal S1, Normal S2 Lungs: Clear Abdomen: Soft, Other (tubes in place) Extremities: No clubbing, Other (foot in boot ) Skin: No rashes Labs Labs: Laboratory Tests Test 09/25/21 14:40 09/26/21 06:10 Vancomycin Level Trough 11.8 mcg/mL (10.0-20.0) Vancomycin Last Dose Date 09/25/21 Vancomycin Last Dose Time 0700 White Blood Count 3.1 x10^3/uL (4.0-11.0) Red Blood Count 3.29 x10^6/uL (3.50-5.40) Hemoglobin 10.7 g/dL (12.0-15.5) Hematocrit 31.4 % (36.0-47.0) Mean Corpuscular Volume 95 fL (79-100) Mean Corpuscular Hemoglobin 33 pg (25-35) Mean Corpuscular Hemoglobin Concent 34 g/dL (31-37) Red Cell Distribution Width 15.0 % (11.5-14.5) Platelet Count 155 x10^3/uL (140-400) Neutrophils (%) (Auto) 58 % (31-73) Lymphocytes (%) (Auto) 30 % (24-48) Monocytes (%) (Auto) 10 % (0-9) Eosinophils (%) (Auto) 2 % (0-3) Basophils (%) (Auto) 0 % (0-3) Neutrophils # (Auto) 1.8 x10^3/uL (1.8-7.7) Lymphocytes # (Auto) 0.9 x10^3/uL (1.0-4.8) Monocytes # (Auto) 0.3 x10^3/uL (0.0-1.1) Eosinophils # (Auto) 0.1 x10^3/uL (0.0-0.7) Basophils # (Auto) 0.0 x10^3/uL (0.0-0.2) Sodium Level 141 mmol/L (136-145) Potassium Level 3.8 mmol/L (3.5-5.1) Chloride Level 106 mmol/L (98-107) Carbon Dioxide Level 25 mmol/L (21-32) Anion Gap 10 (6-14) Blood Urea Nitrogen 7 mg/dL (7-20) Creatinine 0.5 mg/dL (0.6-1.0) Estimated GFR (Cockcroft-Gault) 152.9 Glucose Level 116 mg/dL (70-99) Calcium Level 8.6 mg/dL (8.5-10.1) Phosphorus Level 5.0 mg/dL (2.6-4.7) Magnesium Level 1.8 mg/dL (1.8-2.4) Creatine Kinase 43 U/L (26-192) Assessment and Plan Assessmemt and Plan Problems Medical Problems: (1) Positive blood culture Status: Acute Gram-positive bacteremia on outpatient blood cultures Multiple medical issues including severe gastroparesis, J-tube, G-tube, sepsis, respiratory failure, asthma, DVT, GERD, hypertension, migraines, MRSA, chronic pain, narcotic dependence, cholecystectomy, appendectomy, tonsillectomy, combination of G-J tube as well as a J-tube and a G-tube, polypharmacy, depression, chronic anticoagulation, tremors, anxiety, headaches, ear infections, constipation, chronic nausea. Plan IV daptomycin ID following General surgery consultation Home meds DVT prophylaxis Full code TPN Trend labs Appreciate subspecialist input Comment Review of Relevant I have reviewed the following items lalo (where applicable) has been applied. Medications: Current Medications Medications (Trade) Dose Ordered Sig/Kel Route PRN Reason Start Time Stop Time Status Last Admin Dose Admin Sodium Chloride 75 meq/Potassium Chloride 50 meq/ Magnesium Sulfate 28 meq/Calcium Gluconate 13 meq/ Multivitamins 10 ml/Zinc/Copper/ Manganese/ Selenium 1 ml/ Total Parenteral Nutrition/Amino Acids/Dextrose/ Fat Emulsion Intravenous 1,512 ml @ 63 mls/hr TPN CONT IV 09/25/21 22:00 09/26/21 21:59 09/25/21 22:05 Daptomycin 420 mg/ Sodium Chloride 50 ml @ 100 mls/hr Q24H IV 09/25/21 16:00 09/25/21 16:29 Justifications for Admission Other Justification Fever LALITHA WEBB III DO September 26, 2021 11:38
--- NOTE | 2021-09-26 12:34 | PDOC ---
G I PROGRESS NOTE Subjective No real complaints. "Just got pain medicine". Physical Exam Lungs clear anteriorly. RRR Abdomen soft, not distended. Review of Relevant I have reviewed the following items lalo (where applicable) has been applied. Labs Laboratory Tests Test 09/24/21 15:01 09/25/21 06:40 09/25/21 14:40 09/26/21 06:10 White Blood Count 5.1 x10^3/uL (4.0-11.0) 3.7 x10^3/uL (4.0-11.0) 3.1 x10^3/uL (4.0-11.0) Red Blood Count 3.38 x10^6/uL (3.50-5.40) 3.18 x10^6/uL (3.50-5.40) 3.29 x10^6/uL (3.50-5.40) Hemoglobin 10.9 g/dL (12.0-15.5) 10.3 g/dL (12.0-15.5) 10.7 g/dL (12.0-15.5) Hematocrit 32.0 % (36.0-47.0) 30.5 % (36.0-47.0) 31.4 % (36.0-47.0) Mean Corpuscular Volume 95 fL (79-100) 96 fL (79-100) 95 fL (79-100) Mean Corpuscular Hemoglobin 32 pg (25-35) 32 pg (25-35) 33 pg (25-35) Mean Corpuscular Hemoglobin Concent 34 g/dL (31-37) 34 g/dL (31-37) 34 g/dL (31-37) Red Cell Distribution Width 16.0 % (11.5-14.5) 15.3 % (11.5-14.5) 15.0 % (11.5-14.5) Platelet Count 145 x10^3/uL (140-400) 152 x10^3/uL (140-400) 155 x10^3/uL (140-400) Neutrophils (%) (Auto) 62 % (31-73) 56 % (31-73) 58 % (31-73) Lymphocytes (%) (Auto) 25 % (24-48) 31 % (24-48) 30 % (24-48) Monocytes (%) (Auto) 8 % (0-9) 9 % (0-9) 10 % (0-9) Eosinophils (%) (Auto) 4 % (0-3) 4 % (0-3) 2 % (0-3) Basophils (%) (Auto) 1 % (0-3) 0 % (0-3) 0 % (0-3) Neutrophils # (Auto) 3.1 x10^3/uL (1.8-7.7) 2.0 x10^3/uL (1.8-7.7) 1.8 x10^3/uL (1.8-7.7) Lymphocytes # (Auto) 1.3 x10^3/uL (1.0-4.8) 1.1 x10^3/uL (1.0-4.8) 0.9 x10^3/uL (1.0-4.8) Monocytes # (Auto) 0.4 x10^3/uL (0.0-1.1) 0.3 x10^3/uL (0.0-1.1) 0.3 x10^3/uL (0.0-1.1) Eosinophils # (Auto) 0.2 x10^3/uL (0.0-0.7) 0.1 x10^3/uL (0.0-0.7) 0.1 x10^3/uL (0.0-0.7) Basophils # (Auto) 0.0 x10^3/uL (0.0-0.2) 0.0 x10^3/uL (0.0-0.2) 0.0 x10^3/uL (0.0-0.2) Sodium Level 138 mmol/L (136-145) 142 mmol/L (136-145) 141 mmol/L (136-145) Potassium Level 4.5 mmol/L (3.5-5.1) 4.0 mmol/L (3.5-5.1) 3.8 mmol/L (3.5-5.1) Chloride Level 104 mmol/L (98-107) 107 mmol/L (98-107) 106 mmol/L (98-107) Carbon Dioxide Level 29 mmol/L (21-32) 26 mmol/L (21-32) 25 mmol/L (21-32) Anion Gap 5 (6-14) 9 (6-14) 10 (6-14) Blood Urea Nitrogen 19 mg/dL (7-20) 11 mg/dL (7-20) 7 mg/dL (7-20) Creatinine 0.7 mg/dL (0.6-1.0) 0.6 mg/dL (0.6-1.0) 0.5 mg/dL (0.6-1.0) Estimated GFR (Cockcroft-Gault) 103.7 123.9 152.9 BUN/Creatinine Ratio 27 (6-20) Glucose Level 92 mg/dL (70-99) 86 mg/dL (70-99) 116 mg/dL (70-99) Lactic Acid Level 1.3 mmol/L (0.4-2.0) Calcium Level 8.5 mg/dL (8.5-10.1) 8.1 mg/dL (8.5-10.1) 8.6 mg/dL (8.5-10.1) Total Bilirubin 0.2 mg/dL (0.2-1.0) Aspartate Amino Transf (AST/SGOT) 25 U/L (15-37) Alanine Aminotransferase (ALT/SGPT) 36 U/L (14-59) Alkaline Phosphatase 158 U/L (46-116) Total Protein 7.0 g/dL (6.4-8.2) Albumin 3.6 g/dL (3.4-5.0) Albumin/Globulin Ratio 1.1 (1.0-1.7) Vancomycin Level Trough 11.8 mcg/mL (10.0-20.0) Vancomycin Last Dose Date 09/25/21 Vancomycin Last Dose Time 0700 Phosphorus Level 5.0 mg/dL (2.6-4.7) Magnesium Level 1.8 mg/dL (1.8-2.4) Creatine Kinase 43 U/L (26-192) Laboratory Tests Test 09/25/21 14:40 09/26/21 06:10 Vancomycin Level Trough 11.8 mcg/mL (10.0-20.0) Vancomycin Last Dose Date 09/25/21 Vancomycin Last Dose Time 0700 White Blood Count 3.1 x10^3/uL (4.0-11.0) Red Blood Count 3.29 x10^6/uL (3.50-5.40) Hemoglobin 10.7 g/dL (12.0-15.5) Hematocrit 31.4 % (36.0-47.0) Mean Corpuscular Volume 95 fL (79-100) Mean Corpuscular Hemoglobin 33 pg (25-35) Mean Corpuscular Hemoglobin Concent 34 g/dL (31-37) Red Cell Distribution Width 15.0 % (11.5-14.5) Platelet Count 155 x10^3/uL (140-400) Neutrophils (%) (Auto) 58 % (31-73) Lymphocytes (%) (Auto) 30 % (24-48) Monocytes (%) (Auto) 10 % (0-9) Eosinophils (%) (Auto) 2 % (0-3) Basophils (%) (Auto) 0 % (0-3) Neutrophils # (Auto) 1.8 x10^3/uL (1.8-7.7) Lymphocytes # (Auto) 0.9 x10^3/uL (1.0-4.8) Monocytes # (Auto) 0.3 x10^3/uL (0.0-1.1) Eosinophils # (Auto) 0.1 x10^3/uL (0.0-0.7) Basophils # (Auto) 0.0 x10^3/uL (0.0-0.2) Sodium Level 141 mmol/L (136-145) Potassium Level 3.8 mmol/L (3.5-5.1) Chloride Level 106 mmol/L (98-107) Carbon Dioxide Level 25 mmol/L (21-32) Anion Gap 10 (6-14) Blood Urea Nitrogen 7 mg/dL (7-20) Creatinine 0.5 mg/dL (0.6-1.0) Estimated GFR (Cockcroft-Gault) 152.9 Glucose Level 116 mg/dL (70-99) Calcium Level 8.6 mg/dL (8.5-10.1) Phosphorus Level 5.0 mg/dL (2.6-4.7) Magnesium Level 1.8 mg/dL (1.8-2.4) Creatine Kinase 43 U/L (26-192) Microbiology 09/24/21 Blood Culture - Final, Complete Vitals/I & O Vital Sign - Last 24 Hours 09/25/21 09/25/21 09/25/21 09/25/21 13:20 15:09 16:28 16:29 Temp 98.2 98.2 Pulse 76 76 Resp 18 B/P (MAP) 110/64 (79) 110/64 Pulse Ox 96 O2 Delivery Room Air Room Air Room Air 09/25/21 09/25/21 09/25/21 09/25/21 16:58 19:15 19:37 19:40 Temp 98.0 98.0 Pulse 110 Resp 20 20 B/P (MAP) 124/68 (86) Pulse Ox 96 O2 Delivery Room Air Room Air Room Air Room Air 09/25/21 09/25/21 09/25/21 09/25/21 20:07 20:58 23:12 23:13 Temp 98.5 98.5 Pulse 103 Resp 20 20 20 B/P (MAP) 124/60 (81) Pulse Ox 97 98 O2 Delivery Room Air Room Air Room Air Room Air 09/25/21 09/26/21 09/26/21 09/26/21 23:42 02:01 02:31 03:05 Temp 98.5 98.5 Pulse 90 Resp 20 20 20 18 B/P (MAP) 94/50 (65) Pulse Ox 97 O2 Delivery Room Air Room Air Room Air Room Air 09/26/21 09/26/21 09/26/21 09/26/21 04:59 05:29 06:26 08:07 Temp 97.8 97.8 Pulse 64 Resp 20 20 18 B/P (MAP) 109/63 (78) Pulse Ox 95 95 O2 Delivery Room Air Room Air Room Air Room Air 09/26/21 09/26/21 09/26/21 09/26/21 08:15 09:24 10:55 11:00 Temp 98.0 98.0 Pulse 64 86 Resp 18 B/P (MAP) 109/63 118/76 (90) Pulse Ox 95 95 99 O2 Delivery Room Air Room Air Room Air 09/26/21 09/26/21 11:38 11:39 Pulse Ox 98 95 O2 Delivery Room Air Room Air Intake and Output 09/25/21 09/25/21 09/26/21 15:00 23:00 07:00 Intake Total 100 ml 50 ml Balance 100 ml 50 ml Problem List Problems Medical Problems: (1) Positive blood culture Status: Acute Assessment Abnormal LFT's, likely TPN-related. Gastroparesis, failing enteral feeding. Staph epi bacteremia. Plan of Care Note Continue as now. Justicifation of Admission Dx: Justifications for Admission: Justification of Admission Dx: Yes Sepsis: Bacteremia GEORGES DONNELLY MD September 26, 2021 12:34
--- NOTE | 2021-09-26 13:28 | PDOC ---
Infectious Disease Note Subjective Subjective Patient is feeling good ROS ROS No new complaints denies any nausea vomiting diarrhea Vital Sign Vital Signs Vital Signs Date Time Temp Pulse Resp B/P (MAP) Pulse Ox O2 Delivery O2 Flow Rate FiO2 09/26/21 11:39 95 Room Air 09/26/21 11:00 98.0 86 18 118/76 (90) 98.0 Physical Exam PHYSICAL EXAM GENERAL: Alert and oriented female, not in distress. VITAL SIGNS: Stable, afebrile. HEENT: NAD. NECK: Supple, no JVP, no lymphadenopathy. LUNGS: Clear. HEART: S1, S2, regular. ABDOMEN: Soft, nontender, no organomegaly. GJ tube is in place. EXTREMITIES: No edema or cyanosis. SKIN: Unremarkable. CHEST: Her tunneled PICC line in the right upper chest is unremarkable. Labs Lab Laboratory Tests Test 09/25/21 14:40 09/26/21 06:10 Vancomycin Level Trough 11.8 mcg/mL (10.0-20.0) Vancomycin Last Dose Date 09/25/21 Vancomycin Last Dose Time 0700 White Blood Count 3.1 x10^3/uL (4.0-11.0) Red Blood Count 3.29 x10^6/uL (3.50-5.40) Hemoglobin 10.7 g/dL (12.0-15.5) Hematocrit 31.4 % (36.0-47.0) Mean Corpuscular Volume 95 fL (79-100) Mean Corpuscular Hemoglobin 33 pg (25-35) Mean Corpuscular Hemoglobin Concent 34 g/dL (31-37) Red Cell Distribution Width 15.0 % (11.5-14.5) Platelet Count 155 x10^3/uL (140-400) Neutrophils (%) (Auto) 58 % (31-73) Lymphocytes (%) (Auto) 30 % (24-48) Monocytes (%) (Auto) 10 % (0-9) Eosinophils (%) (Auto) 2 % (0-3) Basophils (%) (Auto) 0 % (0-3) Neutrophils # (Auto) 1.8 x10^3/uL (1.8-7.7) Lymphocytes # (Auto) 0.9 x10^3/uL (1.0-4.8) Monocytes # (Auto) 0.3 x10^3/uL (0.0-1.1) Eosinophils # (Auto) 0.1 x10^3/uL (0.0-0.7) Basophils # (Auto) 0.0 x10^3/uL (0.0-0.2) Sodium Level 141 mmol/L (136-145) Potassium Level 3.8 mmol/L (3.5-5.1) Chloride Level 106 mmol/L (98-107) Carbon Dioxide Level 25 mmol/L (21-32) Anion Gap 10 (6-14) Blood Urea Nitrogen 7 mg/dL (7-20) Creatinine 0.5 mg/dL (0.6-1.0) Estimated GFR (Cockcroft-Gault) 152.9 Glucose Level 116 mg/dL (70-99) Calcium Level 8.6 mg/dL (8.5-10.1) Phosphorus Level 5.0 mg/dL (2.6-4.7) Magnesium Level 1.8 mg/dL (1.8-2.4) Creatine Kinase 43 U/L (26-192) Micro Microbiology 09/24/21 Blood Culture - Final, Complete Objective Assessment IMPRESSION: 1. Coagulase-negative staph bacteremia. 2. Fever, which has resolved. 3 gastroparesis Plan Plan of Care Continue daptomycin Blood culture now from here positive Attempt to salvage power PICC ISAAC RODRIGUEZ MD September 26, 2021 13:28
[2021-09-26 15:00] VITALS: BP 135/53
[2021-09-26] MEDS ORDERED: NALOXONE 0.4 MG/ML VIAL. ONE ×2 (15:18→15:30)
[2021-09-26] MEDS ORDERED: NALOXONE 0.4 MG/ML VIAL. IV PRN (15:30)
[2021-09-26] MEDS: DAPTOmycin (GENERIC) IVPB 420 MG in IV NORMAL SALINE 50ML 50 ML IV SCH (16:40)
[2021-09-26] MEDS ORDERED: IOHEXOL 240 MG/ML 50ML VIAL. PO ONE (17:15)
[2021-09-26 19:00] VITALS: BP 136/68
--- NOTE | 2021-09-26 19:08 | NUR ---
Approximately 1515 today, during hourly rounds the patient was found by the DELIVERER MERCHANDISE to be slightly less responsive that earlier. It was reported by the family that shortly after they entered the room her responsiveness changed. Vital signs were immediately taken, FL 82, Temp 98.2, RR 16, BP 132/74, spo2 99%. Pt had been getting pain medicine every 3 hours PRN for abdominal pain. Pt did respond to some questions and commands from the nursing staff. A rapid response was called, rapid team arrived and assessed the patient. Pupils were responsive to light but dilated. I stayed in the patients room for about 20 minutes monitoring her. Towards the end of me being there she was speaking more freely. I called Dr. Bynum- basil on her case. Pain medicine and anxiety medicine doses were lessened. Dr. Santana was also notified, because shortly after this incident the patient pulled out her j tube, and stuck it back in, inserting her finger deep into the hole. Dr. Santana ordered KUB to check j tube/peg tube placement. The sister and patient state that this has happened a few times before. Medicine was not given again until 1800, and patient was educated on safety measures that will be taken to make sure the incident does not repeat itself. A psychiatric consult was also suggested by the hospitalist and ordered. Mom and Dad were at the bedside and education was also given to them.
--- NOTE | 2021-09-26 20:29 | RAD ---
Study: XR ABDOMEN 1V Indication: J-tube placement. Comparison: CT abdomen/pelvis 08/29/2021 Findings: 40 cc Omnipaque instilled through a jejunostomy tube at the right lower quadrant contrast opacifies s mall bowel. The bowel gas pattern is nonobstructive. No free spillage of contrast. PEG tube noted in addition to cholecystectomy clips. Impression: A right abdominal jejunostomy tube appears well-positioned with normal opacification of adjacent smal l bowel with injected contrast. Electronically signed by: CODY LEUNG MD (09/26/2021 8:27 PM) JOSEPH
[2021-09-26] MEDS: diphenhydrAMINE HCL 25 MG CAPSULE PO SCH (21:00)
[2021-09-26] MEDS: MONTELUKAST SODIUM 10 MG TABLET. PO SCH (21:00)
[2021-09-26] MEDS ORDERED: DEXTROSE 70% IV SCH (22:00)
[2021-09-26] MEDS ORDERED: AMINO ACID IV SCH (22:00)
[2021-09-26] MEDS ORDERED: [UNRECOGNIZED DRUG - OTHER] IV SCH (22:00)
[2021-09-26] MEDS ORDERED: TOTAL PARENTERAL NUTRITION IV SCH (22:00)
[2021-09-26 22:52] VITALS: BP 138/78
[2021-09-27] MEDS: HYDROmorphone 2 MG/ML INJ. IVP PRN ×5 (02:28→21:04)
[2021-09-27 03:21] VITALS: BP 136/68
[2021-09-27] MEDS: diphenhydrAMINE 50 MG/ML VIAL IVP PRN ×3 (05:00→22:53)
[2021-09-27 06:04] VITALS: BP 148/86
[2021-09-27] MEDS: BUDESONIDE 0.5 MG/2 ML NEBU. NEB SCH ×2 (07:23→20:00)
[2021-09-27] MEDS: IPRATRPIUM/ALBUTEROL 0.5/2.5MG 3 ML NEBU. NEB SCH ×4 (07:23→20:00)
[2021-09-27] MEDS: MIDODRINE 5 MG TABLET PO SCH ×3 (07:30→16:07)
[2021-09-27 08:25] LABS: CALCIUM 9.4 mg/dL (8.5-10.1); CREATININE 0.6 mg/dL (0.6-1.0); GFR 123.9; POTASSIUM 3.6 mmol/L (3.5-5.1)
[2021-09-27 08:47] LABS: MAGNESIUM 1.8 mg/dL (1.8-2.4); PHOSPHORUS 4.1 mg/dL (2.6-4.7)
[2021-09-27] MEDS: VENLAFAXINE 75 MG TABLET. PO SCH ×3 (09:00→21:00)
[2021-09-27] MEDS: busPIRone 5 MG TABLET. PO SCH ×3 (09:00→21:00)
[2021-09-27] MEDS: FLUTICASONE 50MCG/NASAL SPRAY 16GM BOTTLE. NS SCH (09:00)
[2021-09-27] MEDS: HYOSCYAMINE ER 0.375 MG TAB.ER.12H PO SCH ×2 (09:00→21:00)
[2021-09-27] MEDS: VALPROIC ACID (AS SODIUM SALT) 250 MG/5 ML SOLUTION. JT SCH ×2 (09:00→21:00)
[2021-09-27] MEDS: ONDANSETRON PF 4 MG/2 ML VIAL. IVP PRN ×2 (09:21→22:53)
[2021-09-27] MEDS: FAMOTIDINE 20 MG/2 ML VIAL IV SCH ×2 (09:21→21:04)
--- NOTE | 2021-09-27 10:36 | PDOC ---
Infectious Disease Note Subjective: Subjective Patient is complaining of nausea and vomiting with watery diarrhea today Discussed with RN Vital Signs: Vital Signs Vital Signs Date Time Temp Pulse Resp B/P (MAP) Pulse Ox O2 Delivery O2 Flow Rate FiO2 09/27/21 09:22 22 Room Air 09/27/21 07:23 98 09/27/21 06:04 98.5 90 148/86 (106) 98.5 Physical Exam: PHYSICAL EXAM GENERAL: Alert and oriented female, not in distress. HEENT: NAD. NECK: Supple, no JVP, no lymphadenopathy. LUNGS: Clear. HEART: S1, S2, regular. ABDOMEN: Soft, nontender, no organomegaly. GJ tube is in place. EXTREMITIES: No edema or cyanosis. SKIN: No generalized rash CHEST: Her tunneled PICC line in the right upper chest is unremarkable. Medications: Inpatient Meds: Medications reviewed. Labs: Lab Laboratory Tests Test 09/26/21 15:15 09/27/21 07:20 Glucose (Fingerstick) 132 mg/dL (70-99) Sodium Level 143 mmol/L (136-145) Potassium Level 3.6 mmol/L (3.5-5.1) Chloride Level 107 mmol/L (98-107) Carbon Dioxide Level 25 mmol/L (21-32) Anion Gap 11 (6-14) Blood Urea Nitrogen 10 mg/dL (7-20) Creatinine 0.6 mg/dL (0.6-1.0) Estimated GFR (Cockcroft-Gault) 123.9 Glucose Level 96 mg/dL (70-99) Calcium Level 9.4 mg/dL (8.5-10.1) Phosphorus Level 4.1 mg/dL (2.6-4.7) Magnesium Level 1.8 mg/dL (1.8-2.4) Objective: Assessment: 1. Coagulase-negative staph bacteremia. Blood culture positive here 2. Fever, which has resolved. 3 gastroparesis 4. Nausea, vomiting, diarrhea Plan: Plan of Care Patient could have gastroenteritis -was reported manipulating with her GJ tube last night Continue daptomycin Check C. difficile. Enteric panel Blood culture now from here positive Repeat blood cultures Attempt to salvage power PICC Maintain aspiration precautions GAYLE RODRIGUEZ MD September 27, 2021 10:36
[2021-09-27 11:00] VITALS: BP 146/87
[2021-09-27 11:59] LABS: BASO % 0 % (0-3); EOS % 0 % (0-3); HEMATOCRIT 35.6 % (36.0-47.0); HEMOGLOBIN 12.1 g/dL (12.0-15.5); LYMPH # 0.7 x10^3/uL (1.0-4.8); LYMPH % 16 % (24-48); MEAN CORPUSCULAR HEMOGLOBIN 32 pg (25-35); MEAN CORPUSCULAR HGB CONC 34 g/dL (31-37); MEAN CORPUSCULAR VOLUME 96 fL (79-100); MONO # 0.2 x10^3/uL (0.0-1.1); MONO % 4 % (0-9); NEUT # 3.5 x10^3/uL (1.8-7.7); NEUT % 79 % (31-73); PLATELET COUNT 199 x10^3/uL (140-400); RED BLOOD COUNT 3.73 x10^6/uL (3.50-5.40); WHITE BLOOD COUNT 4.4 x10^3/uL (4.0-11.0)
--- NOTE | 2021-09-27 12:33 | PDOC ---
[facility] [facility] PROGRESS NOTE Date of Service DOS: DATE: 09/27/21 TIME: 12:32 Chief Complaint Chief Complaint Coag negative staph bacteremia on outpatient blood cultures Multiple medical issues including severe gastroparesis, J-tube, G-tube, sepsis, respiratory failure, asthma, DVT, GERD, hypertension, migraines, MRSA, chronic pain, narcotic dependence, cholecystectomy, appendectomy, tonsillectomy, combination of G-J tube as well as a J-tube and a G-tube, polypharmacy, depression, chronic anticoagulation, tremors, anxiety, headaches, ear infections, constipation, chronic nausea. History of Present Illness History of Present Illness 09/27/2021 Patient seen and examined Discussed with RN Chart reviewed 09/26/2021 Patient seen and examined She is up on the edge of the bed Waiting for her pain medication Discussed with RN Chart reviewed 09/25/2021 Patient seen and examined Discussed with RN Chart reviewed Discussed with case management Vitals/I&O Vitals/I&O: Vital Signs Date Time Temp Pulse Resp B/P (MAP) Pulse Ox O2 Delivery O2 Flow Rate FiO2 09/27/21 11:33 97 Room Air 09/27/21 09:22 22 09/27/21 06:04 98.5 90 148/86 (106) 98.5 I & O 09/26/21 09/26/21 09/27/21 15:00 23:00 07:00 Intake Total 100 ml Balance 100 ml Physical Exam Physical Exam: GENERAL: Alert and oriented female, not in distress. HEENT: NAD. NECK: Supple, no JVP, no lymphadenopathy. LUNGS: Clear. HEART: S1, S2, regular. ABDOMEN: Soft, nontender, no organomegaly. GJ tube is in place. EXTREMITIES: No edema or cyanosis. SKIN: No generalized rash CHEST: Her tunneled PICC line in the right upper chest is unremarkable. General: Alert, Cooperative, No acute distress Heart: Regular rate, Normal S1, Normal S2 Lungs: Clear Abdomen: Soft, Other (tubes in place) Extremities: No clubbing, Other (foot in boot ) Skin: No rashes Labs Labs: Laboratory Tests Test 09/26/21 15:15 09/27/21 07:20 09/27/21 11:40 Glucose (Fingerstick) 132 mg/dL (70-99) Sodium Level 143 mmol/L (136-145) Potassium Level 3.6 mmol/L (3.5-5.1) Chloride Level 107 mmol/L (98-107) Carbon Dioxide Level 25 mmol/L (21-32) Anion Gap 11 (6-14) Blood Urea Nitrogen 10 mg/dL (7-20) Creatinine 0.6 mg/dL (0.6-1.0) Estimated GFR (Cockcroft-Gault) 123.9 Glucose Level 96 mg/dL (70-99) Calcium Level 9.4 mg/dL (8.5-10.1) Phosphorus Level 4.1 mg/dL (2.6-4.7) Magnesium Level 1.8 mg/dL (1.8-2.4) White Blood Count 4.4 x10^3/uL (4.0-11.0) Red Blood Count 3.73 x10^6/uL (3.50-5.40) Hemoglobin 12.1 g/dL (12.0-15.5) Hematocrit 35.6 % (36.0-47.0) Mean Corpuscular Volume 96 fL (79-100) Mean Corpuscular Hemoglobin 32 pg (25-35) Mean Corpuscular Hemoglobin Concent 34 g/dL (31-37) Red Cell Distribution Width 15.0 % (11.5-14.5) Platelet Count 199 x10^3/uL (140-400) Neutrophils (%) (Auto) 79 % (31-73) Lymphocytes (%) (Auto) 16 % (24-48) Monocytes (%) (Auto) 4 % (0-9) Eosinophils (%) (Auto) 0 % (0-3) Basophils (%) (Auto) 0 % (0-3) Neutrophils # (Auto) 3.5 x10^3/uL (1.8-7.7) Lymphocytes # (Auto) 0.7 x10^3/uL (1.0-4.8) Monocytes # (Auto) 0.2 x10^3/uL (0.0-1.1) Eosinophils # (Auto) 0.0 x10^3/uL (0.0-0.7) Basophils # (Auto) 0.0 x10^3/uL (0.0-0.2) Assessment and Plan Assessmemt and Plan Problems Medical Problems: (1) Positive blood culture Status: Acu Gram-positive bacteremia on outpatient blood cultures Multiple medical issues including severe gastroparesis, J-tube, G-tube, sepsis, respiratory failure, asthma, DVT, GERD, hypertension, migraines, MRSA, chronic pain, narcotic dependence, cholecystectomy, appendectomy, tonsillectomy, combination of G-J tube as well as a J-tube and a G-tube, polypharmacy, depression, chronic anticoagulation, tremors, anxiety, headaches, ear infections, constipation, chronic nausea. Plan IV daptomycin Repeating blood cultures ID following General surgery consultation Home meds DVT prophylaxis Full code TPN Trend labs Appreciate subspecialist input Per infectious disease recommendations please see the following and we certainly agree and appreciate their input; Assessment: 1. Coagulase-negative staph bacteremia. Blood culture positive here 2. Fever, which has resolved. 3 gastroparesis 4. Nausea, vomiting, diarrhea Plan: Plan of Care Patient could have gastroenteritis -was reported manipulating with her GJ tube last night Continue daptomycin Check C. difficile. Enteric panel Blood culture now from here positive Repeat blood cultures Attempt to salvage power PICC Maintain aspiration precautions Comment Review of Relevant I have reviewed the following items lalo (where applicable) has been applied. Medications: Current Medications Medications (Trade) Dose Ordered Sig/Kel Route PRN Reason Start Time Stop Time Status Last Admin Dose Admin Sodium Chloride 75 meq/Potassium Chloride 50 meq/ Magnesium Sulfate 28 meq/Calcium Gluconate 13 meq/ Multivitamins 10 ml/Zinc/Copper/ Manganese/ Selenium 1 ml/ Total Parenteral Nutrition/Amino Acids/Dextrose/ Fat Emulsion Intravenous 1,512 ml @ 63 mls/hr TPN CONT IV 09/26/21 22:00 09/27/21 21:59 09/26/21 21:13 Hydromorphone HCl (Dilaudid) 0.5 mg PRN Q3HRS PRN IVP PAIN 09/26/21 18:00 09/27/21 09:22 Lorazepam (Ativan Inj) 0.5 mg PRN Q4HRS PRN IVP ANXIETY / AGITATION 09/26/21 18:00 09/27/21 09:21 Justifications for Admission Other Justification Fever LALITHA WEBB III DO September 27, 2021 12:33
--- NOTE | 2021-09-27 12:54 | PDOC ---
G I PROGRESS NOTE Subjective Says more nauseated today. Seems more uncomfortable. Objective Issues with J-tube last night noted. Physical Exam Lungs clear anteriorly. RRR Abdomen soft. Review of Relevant I have reviewed the following items lalo (where applicable) has been applied. Labs Laboratory Tests Test 09/25/21 14:40 09/26/21 06:10 09/26/21 15:15 09/27/21 07:20 Vancomycin Level Trough 11.8 mcg/mL (10.0-20.0) Vancomycin Last Dose Date 09/25/21 Vancomycin Last Dose Time 0700 White Blood Count 3.1 x10^3/uL (4.0-11.0) Red Blood Count 3.29 x10^6/uL (3.50-5.40) Hemoglobin 10.7 g/dL (12.0-15.5) Hematocrit 31.4 % (36.0-47.0) Mean Corpuscular Volume 95 fL (79-100) Mean Corpuscular Hemoglobin 33 pg (25-35) Mean Corpuscular Hemoglobin Concent 34 g/dL (31-37) Red Cell Distribution Width 15.0 % (11.5-14.5) Platelet Count 155 x10^3/uL (140-400) Neutrophils (%) (Auto) 58 % (31-73) Lymphocytes (%) (Auto) 30 % (24-48) Monocytes (%) (Auto) 10 % (0-9) Eosinophils (%) (Auto) 2 % (0-3) Basophils (%) (Auto) 0 % (0-3) Neutrophils # (Auto) 1.8 x10^3/uL (1.8-7.7) Lymphocytes # (Auto) 0.9 x10^3/uL (1.0-4.8) Monocytes # (Auto) 0.3 x10^3/uL (0.0-1.1) Eosinophils # (Auto) 0.1 x10^3/uL (0.0-0.7) Basophils # (Auto) 0.0 x10^3/uL (0.0-0.2) Sodium Level 141 mmol/L (136-145) 143 mmol/L (136-145) Potassium Level 3.8 mmol/L (3.5-5.1) 3.6 mmol/L (3.5-5.1) Chloride Level 106 mmol/L (98-107) 107 mmol/L (98-107) Carbon Dioxide Level 25 mmol/L (21-32) 25 mmol/L (21-32) Anion Gap 10 (6-14) 11 (6-14) Blood Urea Nitrogen 7 mg/dL (7-20) 10 mg/dL (7-20) Creatinine 0.5 mg/dL (0.6-1.0) 0.6 mg/dL (0.6-1.0) Estimated GFR (Cockcroft-Gault) 152.9 123.9 Glucose Level 116 mg/dL (70-99) 96 mg/dL (70-99) Calcium Level 8.6 mg/dL (8.5-10.1) 9.4 mg/dL (8.5-10.1) Phosphorus Level 5.0 mg/dL (2.6-4.7) 4.1 mg/dL (2.6-4.7) Magnesium Level 1.8 mg/dL (1.8-2.4) 1.8 mg/dL (1.8-2.4) Creatine Kinase 43 U/L (26-192) Glucose (Fingerstick) 132 mg/dL (70-99) Test 09/27/21 11:40 White Blood Count 4.4 x10^3/uL (4.0-11.0) Red Blood Count 3.73 x10^6/uL (3.50-5.40) Hemoglobin 12.1 g/dL (12.0-15.5) Hematocrit 35.6 % (36.0-47.0) Mean Corpuscular Volume 96 fL (79-100) Mean Corpuscular Hemoglobin 32 pg (25-35) Mean Corpuscular Hemoglobin Concent 34 g/dL (31-37) Red Cell Distribution Width 15.0 % (11.5-14.5) Platelet Count 199 x10^3/uL (140-400) Neutrophils (%) (Auto) 79 % (31-73) Lymphocytes (%) (Auto) 16 % (24-48) Monocytes (%) (Auto) 4 % (0-9) Eosinophils (%) (Auto) 0 % (0-3) Basophils (%) (Auto) 0 % (0-3) Neutrophils # (Auto) 3.5 x10^3/uL (1.8-7.7) Lymphocytes # (Auto) 0.7 x10^3/uL (1.0-4.8) Monocytes # (Auto) 0.2 x10^3/uL (0.0-1.1) Eosinophils # (Auto) 0.0 x10^3/uL (0.0-0.7) Basophils # (Auto) 0.0 x10^3/uL (0.0-0.2) Laboratory Tests Test 09/26/21 15:15 09/27/21 07:20 09/27/21 11:40 Glucose (Fingerstick) 132 mg/dL (70-99) Sodium Level 143 mmol/L (136-145) Potassium Level 3.6 mmol/L (3.5-5.1) Chloride Level 107 mmol/L (98-107) Carbon Dioxide Level 25 mmol/L (21-32) Anion Gap 11 (6-14) Blood Urea Nitrogen 10 mg/dL (7-20) Creatinine 0.6 mg/dL (0.6-1.0) Estimated GFR (Cockcroft-Gault) 123.9 Glucose Level 96 mg/dL (70-99) Calcium Level 9.4 mg/dL (8.5-10.1) Phosphorus Level 4.1 mg/dL (2.6-4.7) Magnesium Level 1.8 mg/dL (1.8-2.4) White Blood Count 4.4 x10^3/uL (4.0-11.0) Red Blood Count 3.73 x10^6/uL (3.50-5.40) Hemoglobin 12.1 g/dL (12.0-15.5) Hematocrit 35.6 % (36.0-47.0) Mean Corpuscular Volume 96 fL (79-100) Mean Corpuscular Hemoglobin 32 pg (25-35) Mean Corpuscular Hemoglobin Concent 34 g/dL (31-37) Red Cell Distribution Width 15.0 % (11.5-14.5) Platelet Count 199 x10^3/uL (140-400) Neutrophils (%) (Auto) 79 % (31-73) Lymphocytes (%) (Auto) 16 % (24-48) Monocytes (%) (Auto) 4 % (0-9) Eosinophils (%) (Auto) 0 % (0-3) Basophils (%) (Auto) 0 % (0-3) Neutrophils # (Auto) 3.5 x10^3/uL (1.8-7.7) Lymphocytes # (Auto) 0.7 x10^3/uL (1.0-4.8) Monocytes # (Auto) 0.2 x10^3/uL (0.0-1.1) Eosinophils # (Auto) 0.0 x10^3/uL (0.0-0.7) Basophils # (Auto) 0.0 x10^3/uL (0.0-0.2) Microbiology 09/24/21 Blood Culture - Final, Complete Staphylococcus Warneri Vitals/I & O Vital Sign - Last 24 Hours 09/26/21 09/26/21 09/26/21 09/26/21 13:36 15:00 15:04 18:25 Temp 98.1 98.1 Pulse 100 Resp 16 B/P (MAP) 135/53 (80) Pulse Ox 95 99 95 95 O2 Delivery Room Air Nasal Cannula Room Air Room Air 09/26/21 09/26/21 09/26/21 09/26/21 19:00 19:07 20:00 20:20 Temp 98.4 98.4 Pulse 88 Resp 18 B/P (MAP) 136/68 (90) Pulse Ox 97 95 98 O2 Delivery Room Air Room Air Room Air Room Air 09/26/21 09/26/21 09/27/21 09/27/21 22:12 22:52 02:28 03:21 Temp 97.8 98.0 97.8 98.0 Pulse 67 88 Resp 20 18 20 18 B/P (MAP) 138/78 (98) 136/68 (90) Pulse Ox 99 98 O2 Delivery Room Air Room Air Room Air Room Air 09/27/21 09/27/21 09/27/21 09/27/21 06:04 07:23 09:22 11:00 Temp 98.5 98.3 98.5 98.3 Pulse 90 79 Resp 18 22 18 B/P (MAP) 148/86 (106) 146/87 (106) Pulse Ox 99 98 99 O2 Delivery Room Air Room Air Room Air Room Air 09/27/21 11:33 Pulse Ox 97 O2 Delivery Room Air Intake and Output 09/26/21 09/26/21 09/27/21 15:00 23:00 07:00 Intake Total 100 ml Balance 100 ml Problem List Problems Medical Problems: (1) Positive blood culture Status: Acute Assessment Staph bacteremia. Gastroparesis/rumination/CVS--who knows. Plan of Care Note Continue as now. Consider g-tube to DD prn nausea. Justicifation of Admission Dx: Justifications for Admission: Justification of Admission Dx: Yes Sepsis: Bacteremia GEORGES DONNELLY MD September 27, 2021 12:54
[2021-09-27] MEDS: TPN PER PHARMACY MC PRN (13:13)
--- NOTE | 2021-09-27 13:16 | NUR ---
Pharmacy TPN Dosing Note S: SUNITHA SCHULTZ is a 21 year old F Currently receiving Central Continuous TPN started 09/25/21 B:Pertinent PMH: Chronic TPN Height: 5 feet, 7 inches Weight: 81.485669 kg Current diet: LABS: Sodium: 143 Potassium: 3.6 Chloride: 107 Calcium: 9.4 Corrected Calcium: 9.72 Magnesium: 1.8 CO2: 25 SCr: 0.6 Glucose: 96 Albumin: 3.6 AST: 25 ALT: 36 TPN FORMULA: TPN TYPE: Central Continuous AMINO ACIDS: 80 gm DEXTROSE: 280 gm LIPIDS: 30 gm SODIUM CHLORIDE: 75 mEq SODIUM ACETATE: mEq SODIUM PHOSPHATE: mmol POTASSIUM CHLORIDE: 50 mEq POTASSIUM ACETATE: mEq POTASSIUM PHOSPHATE: mmol MAGNESIUM: 28 mEq CALCIUM: 13 mEq INSULIN: units MULTIPLE VITAMIN: 10 ml TRACE ELEMENTS: 1ML ml(s) TPN PLAN: All lytes WNL. Continue same TPN. R: Continue TPN Will monitor electrolytes, glucose, and tolerance to TPN. Tushar Sanchez [facility], 09/27/21 [id number]
--- NOTE | 2021-09-27 13:22 | PDOC ---
SURGICAL PROGRESS NOTE DATE: 09/27/21 TIME: 13:19 Subjective Pt with c/o diffuse abd pain, nausea Vital Signs Vital Signs Date Time Temp Pulse Resp B/P (MAP) Pulse Ox O2 Delivery O2 Flow Rate FiO2 09/27/21 13:17 20 Room Air 09/27/21 11:33 97 09/27/21 11:00 98.3 79 146/87 (106) 98.3 I&O Intake and Output 09/27/21 07:00 Intake Total 100 ml Balance 100 ml Intake Oral 100 ml # Voids 3 General: Alert, Oriented X3, Cooperative, Other (crying once this creative services writer entered the room) Abdomen: Soft, Other (diffuse TTP, tube in place) Labs Laboratory Tests Test 09/25/21 14:40 09/26/21 06:10 09/26/21 15:15 09/27/21 07:20 Vancomycin Level Trough 11.8 mcg/mL (10.0-20.0) Vancomycin Last Dose Date 09/25/21 Vancomycin Last Dose Time 0700 White Blood Count 3.1 x10^3/uL (4.0-11.0) Red Blood Count 3.29 x10^6/uL (3.50-5.40) Hemoglobin 10.7 g/dL (12.0-15.5) Hematocrit 31.4 % (36.0-47.0) Mean Corpuscular Volume 95 fL (79-100) Mean Corpuscular Hemoglobin 33 pg (25-35) Mean Corpuscular Hemoglobin Concent 34 g/dL (31-37) Red Cell Distribution Width 15.0 % (11.5-14.5) Platelet Count 155 x10^3/uL (140-400) Neutrophils (%) (Auto) 58 % (31-73) Lymphocytes (%) (Auto) 30 % (24-48) Monocytes (%) (Auto) 10 % (0-9) Eosinophils (%) (Auto) 2 % (0-3) Basophils (%) (Auto) 0 % (0-3) Neutrophils # (Auto) 1.8 x10^3/uL (1.8-7.7) Lymphocytes # (Auto) 0.9 x10^3/uL (1.0-4.8) Monocytes # (Auto) 0.3 x10^3/uL (0.0-1.1) Eosinophils # (Auto) 0.1 x10^3/uL (0.0-0.7) Basophils # (Auto) 0.0 x10^3/uL (0.0-0.2) Sodium Level 141 mmol/L (136-145) 143 mmol/L (136-145) Potassium Level 3.8 mmol/L (3.5-5.1) 3.6 mmol/L (3.5-5.1) Chloride Level 106 mmol/L (98-107) 107 mmol/L (98-107) Carbon Dioxide Level 25 mmol/L (21-32) 25 mmol/L (21-32) Anion Gap 10 (6-14) 11 (6-14) Blood Urea Nitrogen 7 mg/dL (7-20) 10 mg/dL (7-20) Creatinine 0.5 mg/dL (0.6-1.0) 0.6 mg/dL (0.6-1.0) Estimated GFR (Cockcroft-Gault) 152.9 123.9 Glucose Level 116 mg/dL (70-99) 96 mg/dL (70-99) Calcium Level 8.6 mg/dL (8.5-10.1) 9.4 mg/dL (8.5-10.1) Phosphorus Level 5.0 mg/dL (2.6-4.7) 4.1 mg/dL (2.6-4.7) Magnesium Level 1.8 mg/dL (1.8-2.4) 1.8 mg/dL (1.8-2.4) Creatine Kinase 43 U/L (26-192) Glucose (Fingerstick) 132 mg/dL (70-99) Test 09/27/21 11:40 White Blood Count 4.4 x10^3/uL (4.0-11.0) Red Blood Count 3.73 x10^6/uL (3.50-5.40) Hemoglobin 12.1 g/dL (12.0-15.5) Hematocrit 35.6 % (36.0-47.0) Mean Corpuscular Volume 96 fL (79-100) Mean Corpuscular Hemoglobin 32 pg (25-35) Mean Corpuscular Hemoglobin Concent 34 g/dL (31-37) Red Cell Distribution Width 15.0 % (11.5-14.5) Platelet Count 199 x10^3/uL (140-400) Neutrophils (%) (Auto) 79 % (31-73) Lymphocytes (%) (Auto) 16 % (24-48) Monocytes (%) (Auto) 4 % (0-9) Eosinophils (%) (Auto) 0 % (0-3) Basophils (%) (Auto) 0 % (0-3) Neutrophils # (Auto) 3.5 x10^3/uL (1.8-7.7) Lymphocytes # (Auto) 0.7 x10^3/uL (1.0-4.8) Monocytes # (Auto) 0.2 x10^3/uL (0.0-1.1) Eosinophils # (Auto) 0.0 x10^3/uL (0.0-0.7) Basophils # (Auto) 0.0 x10^3/uL (0.0-0.2) Laboratory Tests Test 09/26/21 15:15 09/27/21 07:20 09/27/21 11:40 Glucose (Fingerstick) 132 mg/dL (70-99) Sodium Level 143 mmol/L (136-145) Potassium Level 3.6 mmol/L (3.5-5.1) Chloride Level 107 mmol/L (98-107) Carbon Dioxide Level 25 mmol/L (21-32) Anion Gap 11 (6-14) Blood Urea Nitrogen 10 mg/dL (7-20) Creatinine 0.6 mg/dL (0.6-1.0) Estimated GFR (Cockcroft-Gault) 123.9 Glucose Level 96 mg/dL (70-99) Calcium Level 9.4 mg/dL (8.5-10.1) Phosphorus Level 4.1 mg/dL (2.6-4.7) Magnesium Level 1.8 mg/dL (1.8-2.4) White Blood Count 4.4 x10^3/uL (4.0-11.0) Red Blood Count 3.73 x10^6/uL (3.50-5.40) Hemoglobin 12.1 g/dL (12.0-15.5) Hematocrit 35.6 % (36.0-47.0) Mean Corpuscular Volume 96 fL (79-100) Mean Corpuscular Hemoglobin 32 pg (25-35) Mean Corpuscular Hemoglobin Concent 34 g/dL (31-37) Red Cell Distribution Width 15.0 % (11.5-14.5) Platelet Count 199 x10^3/uL (140-400) Neutrophils (%) (Auto) 79 % (31-73) Lymphocytes (%) (Auto) 16 % (24-48) Monocytes (%) (Auto) 4 % (0-9) Eosinophils (%) (Auto) 0 % (0-3) Basophils (%) (Auto) 0 % (0-3) Neutrophils # (Auto) 3.5 x10^3/uL (1.8-7.7) Lymphocytes # (Auto) 0.7 x10^3/uL (1.0-4.8) Monocytes # (Auto) 0.2 x10^3/uL (0.0-1.1) Eosinophils # (Auto) 0.0 x10^3/uL (0.0-0.7) Basophils # (Auto) 0.0 x10^3/uL (0.0-0.2) I have reviewed the following KUB with proper positioning of tube Problem List Problems Medical Problems: (1) Positive blood culture Status: Acute Assessment/Plan cont per primary and ID regarding infection cont anxiety and pain per primary would not remove J-tube at this time will place G-tube to drainage for symptomatic relief appreciate gi involvement Justicifation of Admission Dx: Justifications for Admission: Justification of Admission Dx: Yes Sepsis: Bacteremia TORIE MILLER MD September 27, 2021 13:22
[2021-09-27 15:00] VITALS: BP 117/68
[2021-09-27] MEDS: DAPTOmycin (GENERIC) IVPB 420 MG in IV NORMAL SALINE 50ML 50 ML IV SCH (16:11)
[2021-09-27 19:00] VITALS: BP 128/78
[2021-09-27] MEDS: MONTELUKAST SODIUM 10 MG TABLET. PO SCH (21:00)
[2021-09-27] MEDS: diphenhydrAMINE HCL 25 MG CAPSULE PO SCH (21:00)
[2021-09-27] MEDS ORDERED: DEXTROSE 70% IV SCH (22:00)
[2021-09-27] MEDS ORDERED: [UNRECOGNIZED DRUG - OTHER] IV SCH (22:00)
[2021-09-27] MEDS ORDERED: AMINO ACID IV SCH (22:00)
[2021-09-27] MEDS ORDERED: TOTAL PARENTERAL NUTRITION IV SCH (22:00)
[2021-09-27 22:50] VITALS: BP 106/67
[2021-09-28] MEDS: HYDROmorphone 2 MG/ML INJ. IVP PRN ×3 (02:17→09:56)
[2021-09-28 03:15] VITALS: BP 120/76
[2021-09-28 04:39] LABS: BASO % 0 % (0-3); EOS % 1 % (0-3); HEMATOCRIT 32.2 % (36.0-47.0); HEMOGLOBIN 11.2 g/dL (12.0-15.5); LYMPH # 1.3 x10^3/uL (1.0-4.8); LYMPH % 27 % (24-48); MEAN CORPUSCULAR HEMOGLOBIN 33 pg (25-35); MEAN CORPUSCULAR HGB CONC 35 g/dL (31-37); MEAN CORPUSCULAR VOLUME 94 fL (79-100); MONO # 0.4 x10^3/uL (0.0-1.1); MONO % 9 % (0-9); NEUT # 3.1 x10^3/uL (1.8-7.7); NEUT % 64 % (31-73); PLATELET COUNT 179 x10^3/uL (140-400); RED BLOOD COUNT 3.41 x10^6/uL (3.50-5.40); RED CELL DISTRIBUTION WIDTH 14.5 % (11.5-14.5); WHITE BLOOD COUNT 4.9 x10^3/uL (4.0-11.0)
[2021-09-28 04:53] LABS: CALCIUM 9.2 mg/dL (8.5-10.1); CREATININE 0.6 mg/dL (0.6-1.0); GFR 123.9; MAGNESIUM 1.9 mg/dL (1.8-2.4); PHOSPHORUS 4.1 mg/dL (2.6-4.7); POTASSIUM 4.1 mmol/L (3.5-5.1)
[2021-09-28] MEDS: diphenhydrAMINE 50 MG/ML VIAL IVP PRN (05:11)
[2021-09-28 07:00] VITALS: BP 115/77
[2021-09-28] MEDS: HYOSCYAMINE ER 0.375 MG TAB.ER.12H PO SCH (07:20)
[2021-09-28] MEDS: VALPROIC ACID (AS SODIUM SALT) 250 MG/5 ML SOLUTION. JT SCH (07:20)
[2021-09-28] MEDS: FLUTICASONE 50MCG/NASAL SPRAY 16GM BOTTLE. NS SCH (07:20)
[2021-09-28] MEDS: busPIRone 5 MG TABLET. PO SCH (07:20)
[2021-09-28] MEDS: VENLAFAXINE 75 MG TABLET. PO SCH (07:20)
[2021-09-28] MEDS: MIDODRINE 5 MG TABLET PO SCH ×2 (07:30→10:58)
[2021-09-28] MEDS: BUDESONIDE 0.5 MG/2 ML NEBU. NEB SCH (07:49)
[2021-09-28] MEDS: IPRATRPIUM/ALBUTEROL 0.5/2.5MG 3 ML NEBU. NEB SCH ×2 (07:49→11:22)
[2021-09-28] MEDS: FAMOTIDINE 20 MG/2 ML VIAL IV SCH (08:21)
--- NOTE | 2021-09-28 09:35 | PDOC ---
Date of Service: DATE: 09/28/21 TIME: 09:24 Subjective: Subjective: Can't sleep here - used to sleeping in a chair at home w/ heat and a massager - asking to discharge. Tells me she had an EGD in [facility] w/ Dr. Cruz ~1 month ago for vomiting blood that showed three ulcers. At home is on IV Pepcid, PO Protonix, and sucralfate through J tube - really likes sucralfate. Protonix is THE ONLY medication she takes by mouth. Says she wants to have those records sent to our office and follow-up with us. Objective: Objective: D/w Dr. Bynum - possible DC soon if okay w/ ID. Vital Signs: Vital Signs Date Time Temp Pulse Resp B/P (MAP) Pulse Ox O2 Delivery O2 Flow Rate FiO2 09/28/21 07:49 Room Air 09/28/21 07:30 60 115/77 09/28/21 07:00 98.0 18 95 98.0 Labs: Laboratory Tests Test 09/27/21 11:40 09/28/21 04:25 White Blood Count 4.4 x10^3/uL 4.9 x10^3/uL Red Blood Count 3.73 x10^6/uL 3.41 x10^6/uL Hemoglobin 12.1 g/dL 11.2 g/dL Hematocrit 35.6 % 32.2 % Mean Corpuscular Volume 96 fL 94 fL Mean Corpuscular Hemoglobin 32 pg 33 pg Mean Corpuscular Hemoglobin Concent 34 g/dL 35 g/dL Red Cell Distribution Width 15.0 % 14.5 % Platelet Count 199 x10^3/uL 179 x10^3/uL Neutrophils (%) (Auto) 79 % 64 % Lymphocytes (%) (Auto) 16 % 27 % Monocytes (%) (Auto) 4 % 9 % Eosinophils (%) (Auto) 0 % 1 % Basophils (%) (Auto) 0 % 0 % Neutrophils # (Auto) 3.5 x10^3/uL 3.1 x10^3/uL Lymphocytes # (Auto) 0.7 x10^3/uL 1.3 x10^3/uL Monocytes # (Auto) 0.2 x10^3/uL 0.4 x10^3/uL Eosinophils # (Auto) 0.0 x10^3/uL 0.0 x10^3/uL Basophils # (Auto) 0.0 x10^3/uL 0.0 x10^3/uL Sodium Level 144 mmol/L Potassium Level 4.1 mmol/L Chloride Level 110 mmol/L Carbon Dioxide Level 25 mmol/L Anion Gap 9 Blood Urea Nitrogen 13 mg/dL Creatinine 0.6 mg/dL Estimated GFR (Cockcroft-Gault) 123.9 Glucose Level 98 mg/dL Calcium Level 9.2 mg/dL Phosphorus Level 4.1 mg/dL Magnesium Level 1.9 mg/dL BLOOD CULTURE Final FINAL ID=STAPHYLOCOCCUS WARNERI Growth of organism in only one of multiple sets; isolation does not necessarily indicate infection. Contact Microbiology Lab if further testing is clinically warranted. [place] [address] center medical and lab director: Corrie Abdullahi MD Organism 1 STAPHYLOCOCCUS WARNERI PE: GEN: NAD LUNGS: CTAB HEART: RRR ABD: drainage bilious NEURO/PSYCH: A & O 3 A/P: Staph bacteremia Chronic abd pain and n/v - h/o gastroparesis, GERD, complicated surgical history w/ G and J tubes H/o elevated LFTs/Alk Phos, hepatic steatosis - stable, thought possibly TPN- related ?recent PUD -- ?back to baseline DC per primary/ID. Would be good to review records from recent endoscopy. Justicifation of Admission Dx: Justifications for Admission: Justification of Admission Dx: Yes Sepsis: Bacteremia LIA RO September 28, 2021 09:35
--- NOTE | 2021-09-28 09:40 | PDOC ---
[employer] PROGRESS NOTE Date of Service DOS: DATE: 09/28/21 TIME: 09:37 Chief Complaint Chief Complaint Coag negative staph bacteremia on outpatient blood cultures Multiple medical issues including severe gastroparesis, J-tube, G-tube, sepsis, respiratory failure, asthma, DVT, GERD, hypertension, migraines, MRSA, chronic pain, narcotic dependence, cholecystectomy, appendectomy, tonsillectomy, combination of G-J tube as well as a J-tube and a G-tube, polypharmacy, depression, chronic anticoagulation, tremors, anxiety, headaches, ear infections, constipation, chronic nausea. History of Present Illness History of Present Illness 09/29/2019 Patient seen and examined Discussed with RN Chart reviewed The patient is begging to go home States she feels much better and wants to get home to sleep in her massaging/recline chair 09/27/2021 Patient seen and examined Discussed with RN Chart reviewed 09/26/2021 Patient seen and examined She is up on the edge of the bed Waiting for her pain medication Discussed with RN Chart reviewed 09/25/2021 Patient seen and examined Discussed with RN Chart reviewed Discussed with case management Vitals/I&O Vitals/I&O: Vital Signs Date Time Temp Pulse Resp B/P (MAP) Pulse Ox O2 Delivery O2 Flow Rate FiO2 09/28/21 07:49 Room Air 09/28/21 07:30 60 115/77 09/28/21 07:00 98.0 18 95 98.0 I & O0 09/27/21 09/27/21 09/28/21 15:00 23:00 07:00 Intake Total 0 ml 0 ml Balance 0 ml 0 ml Physical Exam Physical Exam: GENERAL: Alert and oriented female, not in distress. HEENT: NAD. NECK: Supple, no JVP, no lymphadenopathy. LUNGS: Clear. HEART: S1, S2, regular. ABDOMEN: Soft, nontender, no organomegaly. GJ tube is in place. EXTREMITIES: No edema or cyanosis. SKIN: No generalized rash CHEST: Her tunneled PICC line in the right upper chest is unremarkable. General: Alert, Oriented X3, Cooperative, Other (crying once this assembly instructions writer entered the room) Heart: Regular rate, Normal S1, Normal S2 Lungs: Clear Abdomen: Soft, Other (diffuse TTP, tube in place) Extremities: No clubbing, Other (foot in boot ) Skin: No rashes Labs Labs: Laboratory Tests Test 09/27/21 11:40 09/28/21 04:25 White Blood Count 4.4 x10^3/uL (4.0-11.0) 4.9 x10^3/uL (4.0-11.0) Red Blood Count 3.73 x10^6/uL (3.50-5.40) 3.41 x10^6/uL (3.50-5.40) Hemoglobin 12.1 g/dL (12.0-15.5) 11.2 g/dL (12.0-15.5) Hematocrit 35.6 % (36.0-47.0) 32.2 % (36.0-47.0) Mean Corpuscular Volume 96 fL (79-100) 94 fL (79-100) Mean Corpuscular Hemoglobin 32 pg (25-35) 33 pg (25-35) Mean Corpuscular Hemoglobin Concent 34 g/dL (31-37) 35 g/dL (31-37) Red Cell Distribution Width 15.0 % (11.5-14.5) 14.5 % (11.5-14.5) Platelet Count 199 x10^3/uL (140-400) 179 x10^3/uL (140-400) Neutrophils (%) (Auto) 79 % (31-73) 64 % (31-73) Lymphocytes (%) (Auto) 16 % (24-48) 27 % (24-48) Monocytes (%) (Auto) 4 % (0-9) 9 % (0-9) Eosinophils (%) (Auto) 0 % (0-3) 1 % (0-3) Basophils (%) (Auto) 0 % (0-3) 0 % (0-3) Neutrophils # (Auto) 3.5 x10^3/uL (1.8-7.7) 3.1 x10^3/uL (1.8-7.7) Lymphocytes # (Auto) 0.7 x10^3/uL (1.0-4.8) 1.3 x10^3/uL (1.0-4.8) Monocytes # (Auto) 0.2 x10^3/uL (0.0-1.1) 0.4 x10^3/uL (0.0-1.1) Eosinophils # (Auto) 0.0 x10^3/uL (0.0-0.7) 0.0 x10^3/uL (0.0-0.7) Basophils # (Auto) 0.0 x10^3/uL (0.0-0.2) 0.0 x10^3/uL (0.0-0.2) Sodium Level 144 mmol/L (136-145) Potassium Level 4.1 mmol/L (3.5-5.1) Chloride Level 110 mmol/L (98-107) Carbon Dioxide Level 25 mmol/L (21-32) Anion Gap 9 (6-14) Blood Urea Nitrogen 13 mg/dL (7-20) Creatinine 0.6 mg/dL (0.6-1.0) Estimated GFR (Cockcroft-Gault) 123.9 Glucose Level 98 mg/dL (70-99) Calcium Level 9.2 mg/dL (8.5-10.1) Phosphorus Level 4.1 mg/dL (2.6-4.7) Magnesium Level 1.9 mg/dL (1.8-2.4) Assessment and Plan Assessmemt and Plan Problems Medical Problems: (1) Positive blood culture Status: Acute Gram-positive bacteremia on outpatient blood cultures Multiple medical issues including severe gastroparesis, J-tube, G-tube, sepsis, respiratory failure, asthma, DVT, GERD, hypertension, migraines, MRSA, chronic pain, narcotic dependence, cholecystectomy, appendectomy, tonsillectomy, combination of G-J tube as well as a J-tube and a G-tube, polypharmacy, depression, chronic anticoagulation, tremors, anxiety, headaches, ear infections, constipation, chronic nausea. Plan I am hoping to discharge soon when okay with infectious disease For now continue the following; IV daptomycin Following cultures ID following General surgery consultation Home meds DVT prophylaxis Full code TPN Trend labs Appreciate subspecialist input Hopefully she can get home with home IV antibiotics? Comment Review of Relevant I have reviewed the following items lalo (where applicable) has been applied. Medications: Current Medications Medications (Trade) Dose Ordered Sig/Kel Route PRN Reason Start Time Stop Time Status Last Admin Dose Admin Sodium Chloride 75 meq/Potassium Chloride 50 meq/ Magnesium Sulfate 28 meq/Calcium Gluconate 13 meq/ Multivitamins 10 ml/Zinc/Copper/ Manganese/ Selenium 1 ml/ Total Parenteral Nutrition/Amino Acids/Dextrose/ Fat Emulsion Intravenous 1,512 ml @ 63 mls/hr TPN CONT IV 09/27/21 22:00 09/28/21 21:59 09/27/21 21:09 Justifications for Admission Other Justification Fever LALITHA WEBB K III DO September 28, 2021 09:40
[2021-09-28] MEDS ORDERED: PANT40TA77 PO (09:43)
[2021-09-28] MEDS ORDERED: SUCR1ORA14 JT (09:43)
--- NOTE | 2021-09-28 09:44 | SNU/HH DC ---
DISCHARGE WITH HOME HEALTH DISCHARGE INFORMATION: Final Diagnosis: Problems Medical Problems: (1) Positive blood culture Status: Acute Condition on Discharge: Stable CODE STATUS: Code Status: Full HOME HEALTH: Face to Face: I certify this patient is under my care and that I, or a nurse practitioner or physician's assistant nurse manager working with me, had a face to face encounter that meets the physician face to face encounter requirements with this patient on []. Medical Complications: Other (Gram-positive bacteremia) Senior Living For: Assess & Educate Safety RN For Eval/Treatment: Yes Physical Therapy For: Evalulation/Treatment Occupational Therapy For: Evaluation/Treatment Home Health Aide For: Self-care VP CUSTOMER DEVELOPMENT For: Community Resources Pt Meets Homebound Status: Unsteady balance w/ amb, POST DISCHARGE ORDERS: Activity Instructions for Disc: Resume previous activity Weight Bearing Status after Di: No restrictions Bathing Instructions: No Tub Bath until see DIET AFTER DISCHARGE: NPO Wound/Incision Care: Keep wound/cast CDI CHECKS AFTER DISCHARGE: Checks after discharge: Check your Temp as needed TREATMENT/EQUIPMENT ORDERS: Adaptive Equipment Issued: None CERTIFICATION STATEMENT: Certification Statement: Certification Statement: Based on the above finding, I certify that this patient is confined to the home and needs intermittent detention care, physical therapy and/or speech therapy, or continues to need occupational therapy.~ This patient is under my care, and I have initiated the establishment of the plan of care.~ This patient will be followed by myself or a community physician who will periodically review the plan of care. Home Meds Active Scripts Pantoprazole Sodium (PANTOPRAZOLE SODIUM ) 40 Mg Tablet.dr, 40 MG PO DAILYAC for . for 30 Days, #30 TAB.SR Prov:CASTLE,NIAL K III DO 09/28/21 Sucralfate (SUCRALFATE) 1 Gm/10 Ml Oral.susp, 1 GM JT BID for . for 14 Days, #120 ML Prov:CASTLE,NIAL K III DO 09/28/21 Ondansetron Hcl/Pf (ONDANSETRON HCL 4 MG/2 ML VIAL) 4 Mg/2 Ml Vial, 4 MG IVP PRN Q6HRS PRN for NAUSEA/VOMITING 1ST CHOICE for 30 Days, #90 EACH Prov:JEFFERSON XAVIER MD 11/30/19 Bisacodyl (BISACODYL) 10 Mg Supp.rect, 10 MG GA PRN DAILY PRN for CONSTIPATION, 1sT CHOICE for 30 Days, #30 SUPP.RECT Prov:JEFFERSON XAVIER MD 11/30/19 Reported Medications Ofloxacin (OFLOXACIN) 5 Ml Drops, 5 DROP EACH EAR BID for Ear infection, #10 ML 0 Refills 09/15/21 Albuterol Sulfate (Proair Respiclick) 90 Mcg Aer.pow.ba, 1 PUFF IH Q4HRS for Asthma, EACH 09/15/21 Naloxone HCl (Narcan) 4 Mg [place], 4 MG NS PRN PRN for SEE COMMENTS, SPRAY 09/15/21 Norethindrone (KRZYSZTOF) 0.35 Mg Tablet, 1 TAB PO DAILY for Hormone therapy for 28 Days, #28 TAB 0 Refills 09/15/21 Venlafaxine Hcl (VENLAFAXINE HCL) 75 Mg Tablet, 225 MG PO DAILY for Depressio n/Anxiety, TAB 09/15/21 Ubrogepant (Ubrelvy) 100 Mg Tablet, 100 MG PO PRN BID PRN for HEADACHE, TAB 09/15/21 Fluticasone Propionate (Flonase Allergy Relief) 9.9 Ml [place].susp, 2 SPRAYS NS DAILY for Allergies, ML 09/15/21 Prochlorperazine Maleate (Compazine) 10 Mg Tablet, 1 TAB PO PRN Q8HRS PRN for NAUSEA for 30 Days, TAB 0 Refills 09/15/21 Eletriptan Hbr (RELPAX) 40 Mg Tablet, 40 MG PO PRN BID PRN for HEADACHE, TAB 09/15/21 Enoxaparin Sodium (LOVENOX) 80 Mg/0.8 Ml Disp.syrin, 80 MG SQ DAILY for ANTI- COAGULANT, DIS.SYR 09/15/21 Famotidine/Pf (FAMOTIDINE 20 MG/2 ML VIAL) 20 Mg/2 Ml Vial, 40 MG IV BID for GERD, EACH 09/15/21 Hydrocodone Bit/Acetaminophen (HYDROCODONE-APAP 7.5-325/15 SOLN ) 15 Ml Solution, 30 ML PO PRN Q6HRS PRN for PAIN, ML 0 Refills 09/15/21 Montelukast Sodium (MONTELUKAST SODIUM TABLET ) 10 Mg Tablet, 10 MG PO DAILY for FOR ASTHMA, TAB 0 Refills 09/15/21 Buspirone Hcl (BUSPIRONE HCL) 15 Mg Tablet, 1 TAB PO TID for Anxiety, #60 TAB 09/15/21 Midodrine Hcl (MIDODRINE HCL) 5 Mg Tablet, 5 MG PO TID for Hypotension, TAB 09/15/21 Olanzapine (ZYPREXA) 5 Mg Tablet, 1 TAB PO QHS for psych, #30 TAB 1 Refill 08/06/21 Diphenhydramine Hcl (BENADRYL) 25 Mg Capsule, 2 CAP PO QHS for N for 30 Days, #60 CAP 0 Refills 07/14/21 Umeclidinium [place] (Incruse Ellipta) 62.5 Mcg Blst.w.dev, 62.5 MCG IH DAILY for ASTHMA 07/14/21 Fluticasone/Salmeterol (ADVAIR 250-50 DISKUS) 1 Each Disk.w.dev, 1 PUFF IH BID for ASTHMA, #3 INHALER 3 Refills 07/14/21 Valproate Sodium (VALPROIC ACID) 500 Mg/10 Ml Solution, 500 MG JT BID for TREMORS/SHAKING, MISC 11/14/20 Hyoscyamine Sulfate (LEVBID) 0.375 Mg Tab.er.12h, 0.375 MG JT BID for REFLUX, TAB.SR 11/14/20 Fremanezumab-Vfrm (Ajovy Autoinjector) 225 Mg/1.5 Ml Auto.injct, 225 MG SQ QMONTH for migraine, SYR 05/23/20 Tizanidine Hcl (TIZANIDINE HCL) 2 Mg Capsule, 2 MG JT PRN BID PRN for MUSCLE SPASMS, CAP 05/23/20 Ipratropium/Albuterol Sulfate (DUONEB 0.5-3(2.5) MG/3 ML) 3 Ml Ampul.neb, 3 ML NEB QID for Asthma, EACH 08/20/19 LALITHA WEBB III DO September 28, 2021 09:44
[2021-09-28] MEDS: ONDANSETRON PF 4 MG/2 ML VIAL. IVP PRN (09:55)
[2021-09-28] MEDS ORDERED: SUCRALFATE 1 GM/10 ML ORAL.SUSP. JT SCH (10:00)
[2021-09-28 11:00] VITALS: BP 134/81
[2021-09-28] MEDS: DAPTOmycin (GENERIC) IVPB 420 MG in IV NORMAL SALINE 50ML 50 ML IV SCH (11:03)
[2021-09-28] MEDS ORDERED: PANTOPRAZOLE 40 MG TABLET.DR. PO SCH (11:30)
[2021-09-28] MEDS: PROCHLORPERAZINE 10 MG/2 ML VIAL. IV PRN (11:41)
--- NOTE | 2021-09-28 12:11 | PDOC ---
SURGICAL PROGRESS NOTE DATE: 09/28/21 TIME: 12:09 Subjective emesis x 1 worried about ongoing plans--TPN, line infections Vital Signs Vital Signs Date Time Temp Pulse Resp B/P (MAP) Pulse Ox O2 Delivery O2 Flow Rate FiO2 09/28/21 11:00 98.8 83 16 134/81 (98) 97 Room Air 98.8 I&O Intake and Output 09/28/21 07:00 Intake Total 0 ml Balance 0 ml Intake Oral 0 ml # Voids 1 General: Alert, Oriented X3, Cooperative Abdomen: Soft Labs Laboratory Tests Test 09/26/21 15:15 09/27/21 07:20 09/27/21 11:40 09/28/21 04:25 Glucose (Fingerstick) 132 mg/dL (70-99) Sodium Level 143 mmol/L (136-145) 144 mmol/L (136-145) Potassium Level 3.6 mmol/L (3.5-5.1) 4.1 mmol/L (3.5-5.1) Chloride Level 107 mmol/L (98-107) 110 mmol/L (98-107) Carbon Dioxide Level 25 mmol/L (21-32) 25 mmol/L (21-32) Anion Gap 11 (6-14) 9 (6-14) Blood Urea Nitrogen 10 mg/dL (7-20) 13 mg/dL (7-20) Creatinine 0.6 mg/dL (0.6-1.0) 0.6 mg/dL (0.6-1.0) Estimated GFR (Cockcroft-Gault) 123.9 123.9 Glucose Level 96 mg/dL (70-99) 98 mg/dL (70-99) Calcium Level 9.4 mg/dL (8.5-10.1) 9.2 mg/dL (8.5-10.1) Phosphorus Level 4.1 mg/dL (2.6-4.7) 4.1 mg/dL (2.6-4.7) Magnesium Level 1.8 mg/dL (1.8-2.4) 1.9 mg/dL (1.8-2.4) White Blood Count 4.4 x10^3/uL (4.0-11.0) 4.9 x10^3/uL (4.0-11.0) Red Blood Count 3.73 x10^6/uL (3.50-5.40) 3.41 x10^6/uL (3.50-5.40) Hemoglobin 12.1 g/dL (12.0-15.5) 11.2 g/dL (12.0-15.5) Hematocrit 35.6 % (36.0-47.0) 32.2 % (36.0-47.0) Mean Corpuscular Volume 96 fL (79-100) 94 fL (79-100) Mean Corpuscular Hemoglobin 32 pg (25-35) 33 pg (25-35) Mean Corpuscular Hemoglobin Concent 34 g/dL (31-37) 35 g/dL (31-37) Red Cell Distribution Width 15.0 % (11.5-14.5) 14.5 % (11.5-14.5) Platelet Count 199 x10^3/uL (140-400) 179 x10^3/uL (140-400) Neutrophils (%) (Auto) 79 % (31-73) 64 % (31-73) Lymphocytes (%) (Auto) 16 % (24-48) 27 % (24-48) Monocytes (%) (Auto) 4 % (0-9) 9 % (0-9) Eosinophils (%) (Auto) 0 % (0-3) 1 % (0-3) Basophils (%) (Auto) 0 % (0-3) 0 % (0-3) Neutrophils # (Auto) 3.5 x10^3/uL (1.8-7.7) 3.1 x10^3/uL (1.8-7.7) Lymphocytes # (Auto) 0.7 x10^3/uL (1.0-4.8) 1.3 x10^3/uL (1.0-4.8) Monocytes # (Auto) 0.2 x10^3/uL (0.0-1.1) 0.4 x10^3/uL (0.0-1.1) Eosinophils # (Auto) 0.0 x10^3/uL (0.0-0.7) 0.0 x10^3/uL (0.0-0.7) Basophils # (Auto) 0.0 x10^3/uL (0.0-0.2) 0.0 x10^3/uL (0.0-0.2) Laboratory Tests Test 09/28/21 04:25 White Blood Count 4.9 x10^3/uL (4.0-11.0) Red Blood Count 3.41 x10^6/uL (3.50-5.40) Hemoglobin 11.2 g/dL (12.0-15.5) Hematocrit 32.2 % (36.0-47.0) Mean Corpuscular Volume 94 fL (79-100) Mean Corpuscular Hemoglobin 33 pg (25-35) Mean Corpuscular Hemoglobin Concent 35 g/dL (31-37) Red Cell Distribution Width 14.5 % (11.5-14.5) Platelet Count 179 x10^3/uL (140-400) Neutrophils (%) (Auto) 64 % (31-73) Lymphocytes (%) (Auto) 27 % (24-48) Monocytes (%) (Auto) 9 % (0-9) Eosinophils (%) (Auto) 1 % (0-3) Basophils (%) (Auto) 0 % (0-3) Neutrophils # (Auto) 3.1 x10^3/uL (1.8-7.7) Lymphocytes # (Auto) 1.3 x10^3/uL (1.0-4.8) Monocytes # (Auto) 0.4 x10^3/uL (0.0-1.1) Eosinophils # (Auto) 0.0 x10^3/uL (0.0-0.7) Basophils # (Auto) 0.0 x10^3/uL (0.0-0.2) Sodium Level 144 mmol/L (136-145) Potassium Level 4.1 mmol/L (3.5-5.1) Chloride Level 110 mmol/L (98-107) Carbon Dioxide Level 25 mmol/L (21-32) Anion Gap 9 (6-14) Blood Urea Nitrogen 13 mg/dL (7-20) Creatinine 0.6 mg/dL (0.6-1.0) Estimated GFR (Cockcroft-Gault) 123.9 Glucose Level 98 mg/dL (70-99) Calcium Level 9.2 mg/dL (8.5-10.1) Phosphorus Level 4.1 mg/dL (2.6-4.7) Magnesium Level 1.9 mg/dL (1.8-2.4) Problem List Problems Medical Problems: (1) Positive blood culture Status: Acute Assessment/Plan can FU with Dr Santana in office to discuss goals of care, TPN, etc g tube to DD at home as needed Justicifation of Admission Dx: Justifications for Admission: Justification of Admission Dx: Yes Sepsis: Bacteremia HANNAH VALLE CERTIFIED OPHTHALMIC TECHNICIAN September 28, 2021 12:11
--- NOTE | 2021-09-28 12:20 | NUR ---
Patient verbalized understanding of discharge instructions. discharged home with home health.
--- NOTE | 2021-09-30 12:03 | DS ---
DATE OF DISCHARGE: 09/28/2021 ADMISSION DIAGNOSIS: Positive blood cultures on outpatient blood drawn. DISCHARGE DIAGNOSES: 1. Resolving, gram-positive bacteremia (she grew coagulase-negative staphylococci). 2. 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 3. J-tube. 4. G-tube. 5. Sepsis. 6. Respiratory failure. 7. Asthma, deep venous thrombosis, gastroesophageal reflux disease, hypertension, migraines, methicillin-resistant Staphylococcus aureus infection, chronic pain, narcotic dependence, cholecystectomy, appendectomy, tonsillectomy, history of GJ tube as well as a J-tube and G-tube, polypharmacy, depression, chronic anticoagulation, tremors, anxiety, headaches, ear infections, constipation, and chronic nausea. HOSPITAL COURSE: The patient is a pleasant middle-aged female who has multiple medical issues. She is very well known to our service. She gets admitted to the hospital every once or twice a month. I began to think she has chronic issues with seeking medical attention. At this time, she had some blood cultures were drawn as an outpatient. They came back positive. She states that they called her and told to come to the hospital. We admitted her, gave her IV antibiotics. The above consults were obtained. She begged for a lot of pain medicines. In fact, at one point, they had to call a rapid response because she was acting unresponsive, but then they realized it was probably a psychosomatic issues. A day before she was discharged, she was crying, begging for more narcotics. Then, an hour later, she was in good spirits. The following day, which was yesterday, we saw and examined her. She was doing well. She requested to go home. We discharged with IV antibiotics per Infectious Disease recommendations. DISPOSITION: Home. ACTIVITY: As tolerated. DIET: Low sodium. DISCHARGE MEDICATIONS: Please see the MRAD. Protonix 40 a day, Carafate 1 gram b.i.d., albuterol, bisacodyl, bupropion 15 t.i.d., Benadryl, Relpax, Lovenox, home TPN, famotidine 40 IV b.i.d., fluticasone, Ajovy autoinjector, hydrocodone 15 mg solution q.6 p.r.n., hyoscyamine 0.375 per J-tube b.i.d., midodrine 5 t.i.d., Singulair 10 a day, naloxone p.r.n., erasmo, ofloxacin, Zyprexa 5 at bedtime, ondansetron p.r.n., Compazine p.r.n., tizanidine 2 b.i.d. per J-tube, Ubrelvy 100 b.i.d. p.r.n., Incruse Ellipta 62.5 inhaled daily, valproic acid 500 per J-tube b.i.d., venlafaxine 225 daily. Total time 34 minutes. [facility] [place] DR: Abdon TID: [id number]
[2021-10-24] MEDS ORDERED: FREMANEZUMAB VFRM 225 MG SQ SCH (09:00)
== END 2021-09-28 12:10 | disposition home health service (06) | DRG 314 ==
LOC: ER 13:42 → 4 NORTH 14:20
PROVIDERS: ADMIT Internal Medicine; ATTEND Internal Medicine
PROC: 0DHA3UZ Insertion of Feeding Device into Jejunum, Percutaneous Approach (ICD-10-PCS; 2021-09-24)
PROC: 0DH63UZ Insertion of Feeding Device into Stomach, Percutaneous Approach (ICD-10-PCS; 2021-09-24)
PROC: 02HV33Z Insertion of Infusion Device into Superior Vena Cava, Percutaneous Approach (ICD-10-PCS; principal; 2021-09-25)
DX: T80.211A Bloodstream infection due to central venous catheter, initial encounter (principal); J96.90 Respiratory failure, unspecified, unspecified whether with hypoxia or hypercapnia; F11.20 Opioid dependence, uncomplicated; K31.84 Gastroparesis; Z88.0 Allergy status to penicillin; Z88.2 Allergy status to sulfonamides; B95.7 Other staphylococcus as the cause of diseases classified elsewhere; D13.4 Benign neoplasm of liver; F32.A Depression, unspecified; F41.9 Anxiety disorder, unspecified; G43.909 Migraine, unspecified, not intractable, without status migrainosus; G89.29 Other chronic pain; I10 Essential (primary) hypertension; J45.909 Unspecified asthma, uncomplicated; K21.9 Gastro-esophageal reflux disease without esophagitis; K59.03 Drug induced constipation; K59.09 Other constipation; K76.0 Fatty (change of) liver, not elsewhere classified; T40.605A Adverse effect of unspecified narcotics, initial encounter; Y84.8 Other medical procedures as the cause of abnormal reaction of the patient, or of later complication, without mention of misadventure at the time of the procedure; Z79.01 Long term (current) use of anticoagulants; Z82.3 Family history of stroke; Z82.49 Family history of ischemic heart disease and other diseases of the circulatory system; Z83.3 Family history of diabetes mellitus; Z87.11 Personal history of peptic ulcer disease; Z90.49 Acquired absence of other specified parts of digestive tract; Z86.718 Personal history of other venous thrombosis and embolism; Z86.14 Personal history of Methicillin resistant Staphylococcus aureus infection; Z88.8 Allergy status to other drugs, medicaments and biological substances; B96.89 Other specified bacterial agents as the cause of diseases classified elsewhere
CPT/HCPCS: 36415; 71045; 74018; 80048; 80053; 80202; 82550; 82962; 83605; 83735; 84100; 85025; 87040; 87077; 87186; 87493; 87505; 94640; 94760; 96361; 96365; 96375; J0610; J0780; J0878; J1170; J1200; J1650; J2060; J2310; J2405; J2543; J2765; J3370; J3475; J3480; J3490; J7030; J7040; J7050; J7060; 99285-25; G0378; J7626

== ENCOUNTER → 2021-10-08 | Outpatient (CLI) | payer OTHER, MEDICARE, MEDICAID ==
[2021-09-28 11:00] VITALS: BP 134/81
[~2021-10-08] MED LIST changes: +PANT40TA77 PO; +SUCR1ORA14 JT
[2021-10-08 10:58] LABS: BASO % 0 % (0-3); EOS # 0.1 x10^3/uL (0.0-0.7); EOS % 2 % (0-3); HEMATOCRIT 34.4 % (36.0-47.0); HEMOGLOBIN 11.8 g/dL (12.0-15.5); LYMPH # 1.7 x10^3/uL (1.0-4.8); LYMPH % 29 % (24-48); MEAN CORPUSCULAR HEMOGLOBIN 33 pg (25-35); MEAN CORPUSCULAR HGB CONC 34 g/dL (31-37); MEAN CORPUSCULAR VOLUME 95 fL (79-100); MONO # 0.5 x10^3/uL (0.0-1.1); MONO % 10 % (0-9); NEUT # 3.3 x10^3/uL (1.8-7.7); NEUT % 59 % (31-73); PLATELET COUNT 219 x10^3/uL (140-400); RED BLOOD COUNT 3.61 x10^6/uL (3.50-5.40); RED CELL DISTRIBUTION WIDTH 13.1 % (11.5-14.5); WHITE BLOOD COUNT 5.6 x10^3/uL (4.0-11.0)
[2021-10-08 11:12] LABS: CREATININE 0.8 mg/dL (0.6-1.0); GFR 88.9; POTASSIUM 3.9 mmol/L (3.5-5.1)
[2021-10-08 11:31] LABS: ALBUMIN/GLOBULIN RATIO 1.2 (1.0-1.7); TOTAL BILIRUBIN 0.2 mg/dL (0.2-1.0); TOTAL PROTEIN 7.4 g/dL (6.4-8.2)
== END ==
LOC: ONCLAB 10:26
PROVIDERS: ATTEND Internal Medicine Hematology & Oncology
DX: D64.9 Anemia, unspecified (principal)
CPT/HCPCS: 36415; 80053; 82728; 83540; 83550; 85025; 87040

== ENCOUNTER 2021-10-09 08:47 | Outpatient (CLI) | payer OTHER, MEDICARE, MEDICAID ==
[~2021-10-09] VITALS: Ht 170.2 cm; Wt 86.4 kg
[2021-10-09] MEDS ORDERED: LIDOCAINE WITH 8.4% SOD BICARB 3 ML DISP.SYRIN. ONE (09:11)
[2021-10-09] MEDS ORDERED: IOHEXOL 240 MG/ML 50ML VIAL. ONE (09:11)
[2021-10-09 09:13] VITALS: BP 125/77
[2021-10-09] MEDS ORDERED: LIDOCAINE WITH 8.4% SOD BICARB 3 ML DISP.SYRIN. IJ ONE (09:30)
[2021-10-09] MEDS ORDERED: IOHEXOL 240 MG/ML 50ML VIAL. IJ ONE (09:30)
[2021-10-09] MEDS ORDERED: LIDOCAINE 2% VISCOUS 15 ML SOLUTION. ONE (09:32)
[2021-10-09] MEDS ORDERED: CONTRAST GIVEN. MC PRN (09:45)
[2021-10-09] MEDS ORDERED: LIDOCAINE 2% VISCOUS 15 ML SOLUTION. SWSW ONE (09:45)
[2021-10-09 09:56] VITALS: BP 141/75
--- NOTE | 2021-10-09 10:01 | NUR ---
Discharge Note: SUNITHA SCHULTZ Discharge instructions and discharge home medications reviewed with Patient and a copy given. All questions have been answered and understanding verbalized. The following instructions and handouts were given: j-tube site care Discontinued lines and drains: no lines to discontinue. Patient discharged to Home or Self Care withFamily Membervia Ambulated Patient was given wound wash and a pack of 4x4's and was instructed to cleanse j-tube site twice a day and place new dressing. No problems noted and patient walked out to meet ride in outpatient parking.
--- NOTE | 2021-10-09 11:09 | RAD ---
Procedure: J-tube exchange Clinical Indication: Patient has a history of gastroparesis with a G-tube as well as a separate J-tub e. She is having increased fluid from around the J-tube. Anesthesia: Local anesthesia only. Continuous cardiopulmonary monitoring was performed by independent qualified nursing personnel. Contrast: 30 cc Isovue Fluoroscopy time: 4.9 minutes Cumulative DAP (exposure) 22 Gycm2 Complications: None Consent: The procedure was explained in its entirety to the patient or the patients designated repre sentative by a member of the treatment team, including a discussion of the risks, benefits and common ly accepted alternatives to the procedure, as well as the expected consequences of no therapy whatsoe alexi. Discussion of the risks included, but was not limited to, those that are most frequent and those that are rare but possibly severe or life-threatening, as well as the possibility of unforeseen comp lications. All questions were answered and informed consent was obtained. Sterility: All elements of maximal sterile barrier technique including the use of a cap, mask, steril e gown, sterile gloves, large sterile sheet, appropriate hand hygiene, and 2% chlorhexidine for cutan eous antisepsis (or acceptable alternative antiseptic per current guidelines) were followed for this procedure. Patient was placed in the supine position. The J-tube and skin was prepped and draped in the appropri ate sterile fashion. A timeout was performed. Contrast was injected through the indwelling J-tube wh ich demonstrated filling of the small bowel. A stiff Glidewire was placed through the tube into the b owel. Using a Kumpe catheter the wire was advanced deeper into the jejunum. A new 20 Russian J-tube wa s trimmed to about 10 cm in length and placed over the wire. The retention balloon was filled with 10 cc of extremely dilute contrast and retracted to the jejunal wall. Final injection through the new J -tube demonstrates appropriate placed in the jejunal lumen. The bumper was advanced to the skin and a sterile dressing was placed over top. Impression: [id number] exchange of patient's J-tube. Electronically signed by: Amandeep López MD (10/09/2021 11:06 AM) [id number]
== END 2021-10-09 10:05 | disposition home or self-care (01) ==
LOC: INTRAD 08:47
PROVIDERS: ATTEND Surgery
DX: K31.84 Gastroparesis (principal); I10 Essential (primary) hypertension; J45.909 Unspecified asthma, uncomplicated; G47.30 Sleep apnea, unspecified; F41.9 Anxiety disorder, unspecified; F32.9 Major depressive disorder, single episode, unspecified; Z87.440 Personal history of urinary (tract) infections; Z90.49 Acquired absence of other specified parts of digestive tract; Z98.890 Other specified postprocedural states; Z79.899 Other long term (current) drug therapy; Z88.0 Allergy status to penicillin; Z88.2 Allergy status to sulfonamides; Z88.8 Allergy status to other drugs, medicaments and biological substances
CPT/HCPCS: 49451; C1769; J3490; Q9966

== ENCOUNTER 2021-10-18 12:08 | Emergency (ER) | payer OTHER, MEDICARE, MEDICAID ==
[~2021-10-18] VITALS: Ht 165.1 cm; Wt 102.4 kg
--- NOTE | 2021-10-18 13:21 | PHYS DOC ---
Past Medical History Past Medical History: Asthma, DVT, GERD, Hypertension, Migraines, MRSA, Other Additional Past Medical Histor: GASTROPARSIS, INTESTIAL DISMOTILITY, CHRONIC ABD PAIN Past Surgical History: Appendectomy, Cholecystectomy, Tonsillectomy, Other Additional Past Surgical Histo: G TUBES, J TUBES, GJ TUBES Smoking Status: Never Smoker Alcohol Use: None Drug Use: None General Adult EDM: Chief Complaint: ABDOMINAL PAIN HPI: HPI: History obtained from patient. Patient is a 21-year-old female with complex med ical history including severe gastroparesis requiring G-tube, J-tube's, chronic TPN who presents with abdominal pain. Notes that she has worsening abdominal pain over the past few days. Does note dysuria. States she is currently on oral Keflex for UTI. States her urine culture was positive for Klebsiella pneumonia. Urine sensitivity that she shows on her cell phone indicates s ensitivity to Keflex. She reports nausea and vomiting at home. Denies objective fever. States she feels that this antibiotic is not working. Per chart review patient has been admitted in our facility multiple times for intractable abdominal pain and vomiting as well as bacteremia. Review of Systems: Review of Systems: Constitutional: Denies fever or chills. [] Eyes: Denies change in visual acuity. [] HENT: Denies nasal congestion or sore throat. [] Respiratory: Denies cough or shortness of breath. [] Cardiovascular: Denies chest pain or edema. [] GI: Positive for abdominal pain and nausea : Positive for dysuria Musculoskeletal: Denies back pain or joint pain. [] Integument: Denies rash. [] Neurologic: Denies headache, focal weakness or sensory changes. [] Endocrine: Denies polyuria or polydipsia. [] Lymphatic: Denies swollen glands. [] Psychiatric: Denies depression or anxiety. [] Heart Score: C/O Chest Pain: No Risk Factors: Risk Factors: DM, Current or recent (<one month) smoker, HTN, HLP, family hist ory of CAD, obesity. Risk Scores: Score 0 - 3: 2.5% MACE over next 6 weeks - Discharge Home Score 4 - 6: 20.3% MACE over next 6 weeks - Admit for Clinical Observation Score 7 - 10: 72.7% MACE over next 6 weeks - Early Invasive Strategies Allergies: Allergies: Allergies Coded Allergies Type Severity Reaction Last Updated Verified iron Allergy Severe Anaphylaxis 10/12/21 Yes Penicillins Allergy Intermediate LIGHT RASH CHILD 10/12/21 Yes Sulfa (Sulfonamide Antibiotics) Allergy Intermediate 10/12/21 Yes I S O L A T I O N *CONTACT* Allergy Unknown 10/12/21 Yes Physical Exam: PE: Constitutional: Well developed, well nourished, no acute distress, non-toxic appearance. [] HENT: Normocephalic, atraumatic, bilateral external ears normal, oropharynx moist, no oral exudates, nose normal. [] Eyes: PERRLA, EOMI, conjunctiva normal, no discharge. [] Neck: Normal range of motion, no tenderness, supple, no stridor. [] Cardiovascular:Heart rate regular rhythm, no murmur [] anterior chest wall port site appears well-healed. TPN infusing Lungs & Thorax: Bilateral breath sounds clear to auscultation [] Abdomen: Soft abdomen. G-tube and J-tube insertion sites appear well-healed. Mild diffuse tenderness to palpation. Skin: Warm, dry, no erythema, no rash. [] Back: No tenderness, no CVA tenderness. [] Extremities: No tenderness, no cyanosis, no clubbing, ROM intact, no edema. [] Neurologic: Alert and oriented X 3, normal motor function, normal sensory function, no focal deficits noted. [] Psychologic: Affect normal, judgement normal, mood normal. [] Current Patient Data: Labs: Laboratory Tests Test 10/18/21 13:30 10/18/21 13:50 Urine Collection Type Unknown Urine Color (Auto) Light yellow Urine Turbidity Clear Urine pH (Auto) 6.0 Urine Specific [place] 1.023 Urine Protein (Auto) Negative mg/dL Urine Glucose (Auto)(UA) Negative mg/dL Urine Ketones (Auto) Negative mg/dL Urine Blood (Auto) Negative Urine Nitrite Negative Urine Bilirubin (Auto) Negative Urine Urobilinogen (Auto) Normal mg/dL Urine Leukocyte Esterase (Auto) Negative Urine RBC 0 /HPF Urine WBC 1-4 /HPF Urine Squamous Epithelial Cells Many /LPF Urine Bacteria Few /HPF Urine Yeast Present /HPF White Blood Count 5.6 x10^3/uL Red Blood Count 3.59 x10^6/uL Hemoglobin 11.6 g/dL Hematocrit 34.3 % Mean Corpuscular Volume 96 fL Mean Corpuscular Hemoglobin 32 pg Mean Corpuscular Hemoglobin Concent 34 g/dL Red Cell Distribution Width 13.1 % Platelet Count 232 x10^3/uL Neutrophils (%) (Auto) 60 % Lymphocytes (%) (Auto) 28 % Monocytes (%) (Auto) 10 % Eosinophils (%) (Auto) 2 % Basophils (%) (Auto) 0 % Neutrophils # (Auto) 3.4 x10^3/uL Lymphocytes # (Auto) 1.6 x10^3/uL Monocytes # (Auto) 0.6 x10^3/uL Eosinophils # (Auto) 0.1 x10^3/uL Basophils # (Auto) 0.0 x10^3/uL Sodium Level 139 mmol/L Potassium Level 4.3 mmol/L Chloride Level 103 mmol/L Carbon Dioxide Level 29 mmol/L Anion Gap 7 Blood Urea Nitrogen 16 mg/dL Creatinine 0.6 mg/dL Estimated GFR (Cockcroft-Gault) 123.9 BUN/Creatinine Ratio 27 Glucose Level 86 mg/dL Lactic Acid Level 0.5 mmol/L Calcium Level 8.8 mg/dL Magnesium Level 2.3 mg/dL Total Bilirubin 0.2 mg/dL Aspartate Amino Transf (AST/SGOT) 14 U/L Alanine Aminotransferase (ALT/SGPT) 20 U/L Alkaline Phosphatase 124 U/L Total Protein 6.8 g/dL Albumin 3.5 g/dL Albumin/Globulin Ratio 1.1 Lipase 34 U/L Current Medications Medications (Trade) Dose Ordered Sig/Kel Route PRN Reason Start Time Stop Time Status Last Admin Dose Admin Fentanyl Citrate (Fentanyl 2ml Vial) 75 mcg 1X ONCE IVP 10/18/21 13:30 10/18/21 13:31 DC 10/18/21 13:40 Ondansetron HCl (Zofran) 4 mg 1X ONCE IVP 10/18/21 13:30 10/18/21 13:31 DC 10/18/21 13:30 Pantoprazole Sodium (PROTONIX VIAL for IV PUSH) 40 mg 1X ONCE IVP 10/18/21 13:30 10/18/21 13:31 DC 10/18/21 13:30 Iohexol (Omnipaque 300 Mg/ml) 75 ml 1X ONCE IV 10/18/21 14:45 10/18/21 14:46 DC 10/18/21 15:02 Info (CONTRAST GIVEN -- Rx MONITORING) 1 each PRN DAILY PRN MC SEE COMMENTS 10/18/21 14:45 10/20/21 14:44 Vital Signs: Vital Signs Date Time Temp Pulse Resp B/P (MAP) Pulse Ox O2 Delivery O2 Flow Rate FiO2 10/18/21 12:55 98.6 116 20 132/81 (98) 97 Room Air 98.6 EKG: EKG: [] Radiology/Procedures: Radiology/Procedures: [facility] [address] [place] [address] IMAGING REPORT Signed PATIENT: SUNITHA SCHULTZ ACCOUNT: [id number] : 2000 LOCATION: ER AGE: 21 SEX: F EXAM STATUS: REG ER ORD. PHYSICIAN: CLARA JONES DO REASON: abd pain, hx gastroparesis, g/j tubes PROCEDURE: CT ABDOMEN W/CONTRAST PQRS Compliance Statement: One or more of the following individualized dose reduction techniques were utilized for this examination: 1. Automated exposure control 2. Adjustment of the mA and/or kV according to patient size 3. Use of iterative reconstruction technique CT ABDOMEN W 10/18/2021 3:10 PM Indication: Abdominal pain, history of gastroparesis. COMPARISON: Ultrasound abdomen 09/18/2021, CT abdomen/pelvis 08/29/2021. TECHNIQUE: Multiple axial CT images of the abdomen and pelvis were obtained after the intravenous administration of 75 cc Omnipaque 300. Coronal and sagittal reformats are provided. FINDINGS: Right axillary lymph node measures 8 mm by short axis. Heart size within normal limits. Liver is normal in appearance. Calcifications within the liver and spleen suggest sequela prior granulomatous exposure. Adrenal glands and pancreas are normal in appearance. Gallbladder surgically absent. The abdominal aorta is normal in course and caliber. There are no pathologically enlarged lymph nodes in the abdomen and pelvis. Small volume pelvic free fluid. There is no free intraperitoneal air. Gastrostomy tube is identified at the balloon appearing intraluminal along the greater curvature. Jejunostomy tube is identified within the right midabdomen. Limited evaluation of the tube placement secondary to nonopacified adjacent small bowel loops. Extensive right abdominal subcutaneous emphysema identified. No bowel obstruction or inflammation. Large bowel is normal in caliber. Appendix is surgically absent. No suspicious pelvic mass. Uterus is normal in appearance. The kidneys enhance symmetrically. There is no suspicious renal mass. There is no hydronephrosis. There are no suspected calculi within the kidneys, ureters or urinary bladder. Urinary bladder is within normal limits given degree of dis tention. No suspicious osseous abnormality. IMPRESSION: 1. Gastrostomy tube is in appropriate position. Jejunostomy tube is identified within the right midabdomen. Positioning favors intraluminal position. However, this is difficult to confirm without intraluminal contrast or opacified adjacent small bowel loops. Subcutaneous emphysema identified along the right ventral abdominal wall. No bowel obstruction or inflammation. 2. Small volume pelvic free fluid. Electronically signed by: Uday Strauss MD (10/18/2021 3:46 PM) [id number] DICTATED and SIGNED BY: UDAY STRAUSS MD DATE: 10/18/21 1539 [] Course & Med Decision Making: Course & Med Decision Making Pertinent Labs and Imaging studies reviewed. (See chart for details) [] Patient is a 21-year-old female who presents with chief complaint of abdominal pain. She does have a long history of chronic abdominal pain related to gastroparesis. Of note patient did have recent J-tube and G-tube exchange approximately 3 weeks ago. Initial vital signs today normal. Labs been reassuring. No leukocytosis present. Lactate normal. Urinalysis shows no evidence of infection. She is currently taking oral Keflex. Sensitivities that she shows me based on current urine culture do show sensitivity to Keflex. CT imaging was obtained per her request. I did explain to the patient that she has had multiple CAT scans and this increased radiation exposure does put her at risk for development of malignancy in the future. Patient expresses understanding of this and still request to have CT imaging performed although her abdomen is benign without peritonitis. CT imaging does reveal significant amount of subcutaneous emphysema in the abdominal wall primarily around the J- tube insertion site. G-tube and J-tube do appear in appropriate position. No surrounding fluid collections consistent with abscess. Her repeat abdominal exam remains benign. She denies any drainage from her J-tube site. Has had no i issue flushing medications. I did discuss the imaging findings extensively with radiologist Dr. Koroma. He also conferred with radiologist Dr. Strauss. They suspect this is related to recent G-tube and J-tube exchange. I did discuss results of labs and imaging extensively with patient. I do feel it is reasonable to discharge patient home with close outpatient follow-up. She was instructed to follow-up with her surgeon as well as her primary care physician in the next 2 to 3 days for repeat abdominal exam and imaging. Strict 24 to 48- hour return precautions were discussed and understood. Patient did request an alternative antibiotic be prescribed. She is concerned her UTI is not improving.However based on the provided urine sensitivities from patient and her current urine sample today I do not feel alternative antibiotic is indicated. I feel it may cause unwanted side effects with minimal benefit stable and agreeable for discharge home Dragon Disclaimer: Dragon Disclaimer: This electronic medical record was generated, in whole or in part, using a voice recognition dictation system. Departure Departure Impression: Primary Impression: Chronic abdominal pain Disposition: 01 HOME / SELF CARE / HOMELESS Condition: GOOD Referrals: [facility] OFFICE SERVICES MANAGER (PCP) Patient Instructions: Gastrostomy Tube, Adult Additional Instructions: Please follow-up with your surgeon and primary care physician in the next 2 to 3 days. Please return to the ER in the next 24 to 48 hours should her symptoms not improve or worsen. CLARA JONES DO October 18, 2021 13:21
[2021-10-18] MEDS ORDERED: PANTOPRAZOLE IV PUSH 40 MG VIAL. IVP ONE (13:30)
[2021-10-18] MEDS ORDERED: ONDANSETRON PF 4 MG/2 ML VIAL. IVP ONE (13:30)
[2021-10-18] MEDS ORDERED: fentaNYL PF VIAL 100 MCG/2 ML VIAL IVP ONE (13:30)
[2021-10-18 13:56] LABS: BASO % 0 % (0-3); EOS # 0.1 x10^3/uL (0.0-0.7); EOS % 2 % (0-3); HEMATOCRIT 34.3 % (36.0-47.0); HEMOGLOBIN 11.6 g/dL (12.0-15.5); LYMPH # 1.6 x10^3/uL (1.0-4.8); LYMPH % 28 % (24-48); MEAN CORPUSCULAR HEMOGLOBIN 32 pg (25-35); MEAN CORPUSCULAR HGB CONC 34 g/dL (31-37); MEAN CORPUSCULAR VOLUME 96 fL (79-100); MONO # 0.6 x10^3/uL (0.0-1.1); MONO % 10 % (0-9); NEUT # 3.4 x10^3/uL (1.8-7.7); NEUT % 60 % (31-73); PLATELET COUNT 232 x10^3/uL (140-400); RED BLOOD COUNT 3.59 x10^6/uL (3.50-5.40); RED CELL DISTRIBUTION WIDTH 13.1 % (11.5-14.5); WHITE BLOOD COUNT 5.6 x10^3/uL (4.0-11.0)
[2021-10-18 13:57] LABS: BACTERIA,URINE FEW /HPF (0-FEW); RBC,URINE 0 /HPF (0-2)
[2021-10-18 13:58] LABS: YEAST,URINE PRESENT /HPF
[2021-10-18 14:06] LABS: CALCIUM 8.8 mg/dL (8.5-10.1); CREATININE 0.6 mg/dL (0.6-1.0); GFR 123.9; POTASSIUM 4.3 mmol/L (3.5-5.1)
[2021-10-18 14:12] LABS: ALBUMIN 3.5 g/dL (3.4-5.0); ALBUMIN/GLOBULIN RATIO 1.1 (1.0-1.7); MAGNESIUM 2.3 mg/dL (1.8-2.4); TOTAL BILIRUBIN 0.2 mg/dL (0.2-1.0); TOTAL PROTEIN 6.8 g/dL (6.4-8.2)
[2021-10-18] MEDS ORDERED: IOHEXOL 300 MG/ML 100ML VIAL. IV ONE (14:45)
[2021-10-18] MEDS ORDERED: CONTRAST GIVEN. MC PRN (14:45)
--- NOTE | 2021-10-18 15:48 | RAD ---
PQRS Compliance Statement: One or more of the following individualized dose reduction techniques were utilized for this examinat ion: 1. Automated exposure control 2. Adjustment of the mA and/or kV according to patient size 3. Use of iterative reconstruction technique CT ABDOMEN W 10/18/2021 3:10 PM Indication: Abdominal pain, history of gastroparesis. COMPARISON: Ultrasound abdomen 09/18/2021, CT abdomen/pelvis 08/29/2021. TECHNIQUE: Multiple axial CT images of the abdomen and pelvis were obtained after the intravenous adm inistration of 75 cc Omnipaque 300. Coronal and sagittal reformats are provided. FINDINGS: Right axillary lymph node measures 8 mm by short axis. Heart size within normal limits. Liver is norm al in appearance. Calcifications within the liver and spleen suggest sequela prior granulomatous expo sure. Adrenal glands and pancreas are normal in appearance. Gallbladder surgically absent. The abdominal aorta is normal in course and caliber. There are no pathologically enlarged lymph nodes in the abdomen and pelvis. Small volume pelvic free fluid. There is no free intraperitoneal air. Gastrostomy tube is identified at the balloon appearing intraluminal along the greater curvature. Jej unostomy tube is identified within the right midabdomen. Limited evaluation of the tube placement sec ondary to nonopacified adjacent small bowel loops. Extensive right abdominal subcutaneous emphysema i dentified. No bowel obstruction or inflammation. Large bowel is normal in caliber. Appendix is surgic ally absent. No suspicious pelvic mass. Uterus is normal in appearance. The kidneys enhance symmetrically. There is no suspicious renal mass. There is no hydronephrosis. The re are no suspected calculi within the kidneys, ureters or urinary bladder. Urinary bladder is within normal limits given degree of distention. No suspicious osseous abnormality. IMPRESSION: 1. Gastrostomy tube is in appropriate position. Jejunostomy tube is identified within the right midab domen. Positioning favors intraluminal position. However, this is difficult to confirm without intral uminal contrast or opacified adjacent small bowel loops. Subcutaneous emphysema identified along the right ventral abdominal wall. No bowel obstruction or inflammation. 2. Small volume pelvic free fluid. Electronically signed by: Leeanne Ruiz MD (10/18/2021 3:46 PM) [id number]
[2021-10-18 16:27] VITALS: BP 136/72
== END 2021-10-18 16:28 | disposition home or self-care (01) ==
LOC: ER 12:08
DX: G89.29 Other chronic pain (principal); R10.9 Unspecified abdominal pain; R30.0 Dysuria; R11.2 Nausea with vomiting, unspecified; J45.909 Unspecified asthma, uncomplicated; K21.9 Gastro-esophageal reflux disease without esophagitis; I10 Essential (primary) hypertension; G43.909 Migraine, unspecified, not intractable, without status migrainosus; Z86.718 Personal history of other venous thrombosis and embolism; Z90.89 Acquired absence of other organs; Z90.49 Acquired absence of other specified parts of digestive tract; Z88.8 Allergy status to other drugs, medicaments and biological substances; Z88.0 Allergy status to penicillin; Z88.2 Allergy status to sulfonamides
CPT/HCPCS: 36415; 74160; 80053; 81001; 83605; 83690; 83735; 85025; 87040; 96374; 96375; 99285; C9113; J2405; J3010; Q9967